=== PATIENT | female | born 1945 | race Caucasian/White ===

== ENCOUNTER → 2023-04-07 | Outpatient (CLI) | payer MEDICARE, OTHER, SELFPAY ==
--- NOTE | 2023-04-07 17:45 | CT_ITS ---
EXAM: CT HEAD WITHOUT INTRAVENOUS CONTRAST CLINICAL INDICATION: SUBARACHNOID HEMORRHAGE TECHNIQUE: Multiple axial images were obtained of the head without intravenous contrast. This CT exam was performed using one or more of the following dose reduction techniques: automated exposure control, adjustment of the mA and/or kV according to patient size, and/or use of iterative reconstruction technique. RADIATION DOSE: CTDIvol = 44.99 mGy, DLP = 745.49 mGy-cm. COMPARISON: No relevant prior studies available. FINDINGS: BRAIN AND EXTRA-AXIAL SPACES: Unremarkable with the exception of mild-moderate calcifications of the intracranial carotids and slight low-attenuation in the deep periventricular white matter. Minimal cerebral volume loss for age.. No intra- or extra-axial hemorrhage. No evidence of acute infarct. No intracranial mass or mass effect. There is preservation of the gonzalez/white matter interface. Posterior fossa structures are unremarkable. Ventricles are appropriate for age. No hydrocephalus. Basal cisterns are patent. BONES/JOINTS: Unremarkable. No discrete lytic or blastic abnormalities. SINUSES: Unremarkable as visualized. Clear. MASTOID AIR CELLS: Unremarkable. Clear. ORBITS: Visualized globes, extraocular muscles, optic nerves and retrobulbar fat appear unremarkable. CT/Brain/Head without Contrast IMPRESSION: No acute intracranial abnormality. Minimal chronic changes. Electronically Signed: Lucille Roberts MD at 4:02 EST ,
== END | disposition home or self-care (01) ==
LOC: CT 17:39
PROVIDERS: PCP Family Medicine
DX: G31.83 Neurocognitive disorder with Lewy bodies (principal); Z86.79 Personal history of other diseases of the circulatory system
CPT/HCPCS: 70450

== ENCOUNTER → 2023-07-01 | Outpatient (REF) | payer MEDICARE, OTHER, SELFPAY ==
[2023-07-01 09:50] LABS: AST(SGOT) 15 U/L (15-37); Alanine Aminotransfer ALT/SGPT 13 U/L (13-56); Anion Gap 5 (5-15); BUN 19 mg/dL (7-18); BUN/Creat Ratio 20.9 RATIO (10-20); Calcium,Total 9.4 mg/dL (8.5-10.1); Chloride 106 mmol/L (98-107); Cholesterol 167 mg/dL (200); Creatinine, Serum 0.91 mg/dL (0.55-1.02); EST Glomerular Filtration Rate 64 mL/min (>60); Est Glom Filt Rate - Afr Amer 77 mL/min (>60); Glucose 100 mg/dL (74-106); High Density Lipoprotein 61 mg/dL; Sodium Level 138 mmol/L (136-145); Triglycerides 71 mg/dL; Very Low Density Lipoprotein 14 mg/dL (5-40)
== END ==
PROVIDERS: PCP Family Medicine; Visit Provider Family Medicine
DX: I10 Essential (primary) hypertension (principal); E78.5 Hyperlipidemia, unspecified; Z79.01 Long term (current) use of anticoagulants
CPT/HCPCS: 36415; 80048; 80061; 84450; 84460

== ENCOUNTER 2024-06-25 20:54 | Emergency (ER) | payer MEDICARE, OTHER, SELFPAY ==
[2024-06-25 20:55] VITALS: BP 147/66; PULSE 73; RESP 16; TEMP 36.6; O2SAT 96; BMI 24.5
--- NOTE | 2024-06-25 21:49 | EDS_ITS ---
HPI History of Present Illness HPI Narrative: 78-year-old female history of Parkinson disease, anemia. Unwitnessed fall today at [facility]. Has a large forearm laceration/skin tear. Denies hitting her head. Denies any LOC. Denies any other complaints. She is right-hand dominant. Unsure of her tetanus is up-to-date. Chief Complaint: Laceration Informant: patient Occured/Mechanism Mechanism/Context: Yes injury and Yes blunt trauma Onset/Context/Timing Onset: Today and Hours Context: Sudden Onset Timing: Continuous Current Severity: Moderate Maximum Severity: Moderate Associated Symptoms Associated Symptoms: Negative for Parasthesia, Weakness or Loss of Funtion Narrative Narrative: 78-year-old female from [facility]. Unwitnessed fall. Large skin tear left forearm over the dorsum. Denies other complaints. No head injury. No LOC. She is on no blood thinners. Tetanus Immunization: Unknown Prior similar symptoms: No Recent Illness/Hospitalization: No [facility] Medical History Blindness left eye category 5, normal vision right eye Unsteadiness on feet Difficulty in walking Anemia Lung nodule Depression Wrist fracture, right Orthostatic hypotension Essential hypertension Subarachnoid hemorrhage following injury Hyperlipidemia Parkinson's disease Home Medications ?Medication ?Instructions ?Recorded ?Last Taken ?Type acetaminophen 650 mg 650 mg PO Q8H 03/28/23 Unkno wn History tablet,extended release aluminum-mag hydroxide-simethicone 1 tab PO ONCE 03/28 Unknown History 200 mg-200 mg-25 mg chewable tablet atorvastatin 10 mg tablet 10 mg PO QHS 03/28/23 Unknow n History bisacodyl 10 mg rectal suppository 10 mg ND DAILY PRN 03/28/23 Unknown History (Dulcolax (bisacodyl)) carbidopa 25 mg-levodopa 100 mg 1 tab PO .QID 03/28/23 Unknown History tablet docusate sodium 100 mg capsule 100 mg PO BID PRN 03/28 Unknown History escitalopram oxalate 10 mg tablet 10 mg PO DAILY 03/28 Unknown History ferrous sulfate 325 mg (65 mg 325 mg PO DAILY 03/28/23 Unknown History iron) tablet magnesium hydroxide 400 mg/5 mL 30 ml PO BID PRN 03/28 Unknown History oral suspension (Milk of Magnesia) midodrine 5 mg tablet 5 mg PO TID 03/28/23 Unknown History mineral oil 118 ml ND DAILY PRN 03/28/23 Unknown History polyethylene glycol 3350 17 17 g PO DAILY 03/28/23 Unk nown History gram/dose oral powder (Miralax) Allergy/AdvReac Type Severity Reaction Status Date / Time amoxicillin (From Trimox) Allergy Hives Verified 06/25/24 20:55 Family History Mother Hypertension Heart disease Diabetes Father Hypertension Emphysema lung Surgical History Hx laparoscopic cholecystectomy History of hysterectomy Social History Smoking Status: Never smoker alcohol intake: never substance use type: does not use caffeine: Yes Type: coffee Number of servings: 2 ROS ROS ED ROS Narrative Denies recent illness. Constitutional Constitutional ED: Denies fever(s) Eyes Eyes: Denies blurry vision ENT ENT ED: Denies ear pain Cardiovascular Cardiovascular: Denies chest pain or palpitations Respiratory/Chest Respiratory/Chest: Denies cough or dyspnea Gastrointestinal Gastrointestinal: Denies abdominal pain Genitourinary Genitourinary ED: Denies dysuria or hematuria Musculoskeletal Musculoskeletal: Denies back pain or myalgias Integumentary Denies abscess Neurologic Neurologic: Denies headache(s) Psychiatric Psychiatric: Denies anxiety Endocrine Endocrinology: Denies cold intolerance Hematologic/Lymphatic Hematologic/Lymphatic: Denies easy bleeding, easy bruising or lymphadenopathy Allergic/Immunologic Allergic/Immunologic ED: Denies tongue swelling or urticaria EXAM Physical Exam Narrative Exam Narrative: 78-year-old female sitting upright in bed. Family at bedside. She is no acute distress. Has a dressing on her left forearm. H EENT exam left eye pupils reactive light. Right eye she is blind in. No facial or scalp trauma. Nontender no hematoma. Neck nontender. Trachea midline. Back nontender. Lungs clear to auscultation. Heart regular rhythm rate about 70 no murmur. Chest wall and ribs nontender. Abdomen soft nontender. Pelvic girdle intact. Hips are nontender. There is no shortening or rotation. 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 There is a substantial skin tear/laceration over the illness the entire length of her wound left forearm over the dorsum along the midline. Involves the skin and subcu tissue. You can see the muscle. There is some oozing of blood. 1 small arterial bleeding. Hand appears to be neurovascularly intact. There is no bony deformity. Left elbow and shoulder nontender. Right upper extremity nontender. Lower extremities are nontender. No shortening or rotation. Normal dorsi plantarflexion. She can flex extend her hips and knees. Neurologically she is awake and alert. Answering questions following commands. GCS 15. Const Vital Signs: 06/25/24 20:55 Temperature 98 F Temperature Source Oral Pulse Rate 73 Respiratory Rate 16 Blood Pressure 147/66 H Blood Pressure Mean 93 Pulse Ox 96 Oxygen Delivery Method Room Air Positive well nourished and well developed; Negative for obese, cachectic or contractures General Appearance ED: well developed and NAD; Negative for cachectic, contractures, cyanotic or diaphoretic Nutritional Appearance: Negative for cachectic or obese HEENT Reports moist mucous membranes normocephalic and atraumatic; Negative for trauma or tenderness Eyes PERRL and EOMs intact bilaterally Neck full ROM and supple General: Negative for tenderness Lymph Lymphatic: Negative for other Chest Wall inspection of chest normal and palpation of chest normal Resp normal respiratory effort and clear to auscultation bilaterally Auscultation: Negative for rales, rhonchi, wheezes or diminished lung sounds Cardio regular rate, regular rhythm, S1 normal heart sound, S2 normal heart sound and no murmurs Rate: Negative for bradycardia or tachycardic Rhythm: Negative for abnormal rhythm GI non-tender, non-distended and no masses Auscultation: normoactive bowel sounds Palpation: soft; Negative for tender or guarding Back/Spine no CVA tenderness General Back: Negative for CVA tenderness Cervical Spine: Negative for cervical spine tenderness Thoracic Spine / Upper Back: Negative for thoracic spinal tenderness Lumbar Spine / Lower Back: Negative for lumbar spinal tenderness Extremity normal to inspection and full ROM Extremity Narrative: Except for the skin tear/laceration of the dorsum of the left forearm. Almost the entire length of the forearm from the elbow to the wrist over the dorsum. Exposed muscle. No no bony tenderness or deformity. General Extremety ED: Negative for edema General Extremity: Negative for edema Neuro oriented x3, CN's II-XII intact bilaterally, moves all extremities, no focal motor deficits and no sensory deficits noted Sensorium / Orientation: alert, oriented to person, oriented to place and oriented to time Motor Exam: strength 5/5 throughout Psych mental status grossly normal Mood & Affect: Negative for depressed, anxious or tearful Skin Skin Narrative: Large left forearm skin tear/laceration. General Skin Exam: Negative for petechiae Lesions: no lesions Rashes: no rashes Trauma: laceration MDM MDM MDM Narrative Medical decision making narrative: 78-year-old female large left forearm laceration/skin tear. Tetanus will be updated if we cannot find a recent tetanus. Will x-ray her left forearm to rule out a fracture no clinically I do not think she has a fracture. I have already spoke with the family this will be locally anesthetized cleaned irrigated and washed and then we will try to repair it if possible. History & Record Review Discussion w/independent historian: Patient Additional record(s) reviewed:: Prior inpatient record, Prior outpatient record, Prior ED visit and Prior labs Radiography Diagnostic Testing: Left forearm x-ray, 2 views, AP and lateral, interpreted by by myself and radiologist. Showed no acute fracture or dislocation. Osteopenia. Procedures Lacerations Large left dorsal forearm laceration approximately 12 inches repair.: Length: 12 in Depth: Sub Q Shape: Linear Prep: Shnaima-Clens Laceration repair: Irrigated, Lidocaine, Local, Skin sutures and Wound explored Number of Sutures/Kevyn: 16 Suture Information: Ethilon and - Comment: Large left forearm laceration palmar laceration part skin tear. Was about 12 inches in length. Involving the skin given subcu tissue and fat. Down to the muscle. Small arterial bleeding. Locally anesthetized with lidocaine. Cleaned with Juma-Clens. Washed and irrigated with saline. Explored. No foreign body. No joint involvement. Approximated and closed as best I could using 16 simple interrupted 3-0 Ethilon sutures. Proper hemostasis wound closure was obtained. Patient tolerated well. Family was present in the room during the procedure. Area will be cleaned. Antibiotic ointment. Dressed. Outpatient follow-up. Discharge Plan Triage Chief Complaint: Laceration ED Provider: Joel Muniz Dx/Rx/DC Orders Clinical Impression: Fall, Laceration of forearm, left, Skin tear, History of Parkinson disease Instructions: ED Laceration, All Closures Prescriptions: No Action acetaminophen 650 mg tablet extended release 650 mg PO Q8H alum-mag hydroxide-simeth 200-200-25 mg tablet,chewable 1 tab PO ONCE atorvastatin 10 mg tablet 10 mg PO QHS bisacodyl [Dulcolax (bisacodyl)] 10 mg suppository 10 mg ND DAILY PRN carbidopa-levodopa 25-100 mg tablet 1 tab PO .QID docusate sodium 100 mg capsule 100 mg PO BID PRN mineral oil Enema 118 ml ND DAILY PRN Rx Instructions: discard any unused portion escitalopram oxalate 10 mg tablet 10 mg PO DAILY ferrous sulfate 325 mg (65 mg iron) tablet 325 mg PO DAILY midodrine 5 mg tablet 5 mg PO TID Rx Instructions: do not give last dose of day after 6PM or within 4 hrs of bedtime magnesium hydroxide [Milk of Magnesia] 400 mg/5 mL suspension 30 ml PO BID PRN polyethylene glycol 3350 [Miralax] 17 gram/dose powder 17 g PO DAILY Primary Care Provider: Yahaira Winn Referrals: Stan Green MD [Med Staff - Active Staff] - Jose Matthews MD [Med Staff - Active Staff] - As soon as possible Activity Restrictions/Additional Instructions: Ice and elevate the arm to decrease swelling and pain. Elevate is much as possible. If our dressing stays dry and clean you can leave it on for up to 3 days. Then it needs to be taken off gently. Clean daily with soap and water. Apply antibiotic ointment. And redress. Call and follow-up with the plastic surgeon for further evaluation and wound care. Any signs of infection such as redness, pus, fever or streaks return to the emergency department. Tylenol for pain. Print Language: Syriac Disposition Disposition: Home, Self Care
--- NOTE | 2024-06-25 22:00 | RAD_ITS ---
PROCEDURE: FOREARM 2 VIEWS 06/25/2024 REASON FOR EXAM: FALL TECHNIQUE: 2 view(s) of the left forearm COMPARISON: None FINDINGS: No displaced fracture or traumatic malalignment. Joint spaces are predominantly maintained. Mild decrease in bone mineral density. Bandage material limits evaluation of the soft tissues.. RAD/Forearm 2 Views IMPRESSION: No displaced fracture of the left forearm. Mild osteopenia slightly limits thi s evaluation. Reading Location: [facility]
--- NOTE | 2024-06-25 22:02 | ED.RN ---
[facility] CALLED TO CONFIRM TETANUS SHOT HISTORY. THEY WERE UNABLE TO CONFIRM WITH THEIR RECORDS. PROVIDER NOTIFIED.
[2024-06-25] MEDS: Lidocaine 1% (20 ml mdv) 20 ML Vial 10 ML INFILT (22:07)
[2024-06-25] MEDS: Diphth,Pertuss(Acell),Tet Vac 0.5 ML Vial IM (22:08)
[2024-06-25 23:10] VITALS: BP 147/61; PULSE 70; RESP 16; O2SAT 100
[2024-06-26 00:49] VITALS: BP 146/80; PULSE 89; RESP 16; TEMP 36.6; O2SAT 99
--- NOTE | 2024-06-26 00:51 | ED.RN ---
REPORT CALLED TO [facility]ORM. NO FURTHER QUESTIONS BY THE RECEIVING NURSE AT THIS TIME.
== END 2024-06-26 00:52 | disposition home or self-care (01) ==
PROVIDERS: Emergency Provider Emergency Medicine; PCP Family Medicine; Visit Provider Emergency Medicine
DX: S51.812A Laceration without foreign body of left forearm, initial encounter (principal); G20.C Parkinsonism, unspecified; W19.XXXA Unspecified fall, initial encounter
CPT/HCPCS: 12004; 73090; 90715; 99285

== ENCOUNTER → 2024-06-27 | Outpatient (REF) | payer MEDICARE, OTHER, SELFPAY ==
[2024-06-27 06:45] LABS: Red Blood Cells-Urine 0 SEEN /hpf (0-5); White Blood Cells 0 SEEN /hpf (0-5)
[2024-06-27 06:56] LABS: Hematocrit 28.2 % (37-47); Hemoglobin 9.1 g/dL (12.0-15.0); Mean Corp Hgb Conc 32.3 g/dL (32-36); Mean Corpuscular Hgb 29.7 pg (27.0-32.0); Mean Corpuscular Volume 92.2 fL (81-99); Mean Platelet Vol. 10.2 fl (6.2-12.0); Platelet Count 237 K/mm3 (150-450); RBC Distribution Width SD 46.9 fl (35.1-43.9); Red Blood Count 3.06 M/mm3 (4.2-5.4); White Blood Count 6.9 K/mm3 (4.4-11.0)
[2024-06-27 07:10] LABS: Color, Urine Yellow (Yellow); Glucose, Dipstick Normal (Normal); Ketone-Dipstick 5 mg/dl (Negative); Leukocyte Esterase-Dipstick Negative /ul (Negative); Nitrite-Dipstick Negative (Negative); Occult Blood-Urine 10 /ul (Negative); Protein-Dipstick 30 mg/dl (Negative); Urine Bilirubin Dipstick Negative (Negative); Urine Clarity Clear (Clear); Urine Urobilinogen Normal (Normal)
[2024-06-27 07:33] LABS: Bacteria 1+ /hpf (None Seen); Fine Granular Cast- Urine 0-5 SEEN /lpf (0-5); Mucous, Urine 1+ /hpf (<or=2+); Squamous Epithelial Cells - UA 0-5 SEEN /hpf (5-10)
[2024-06-27 07:57] LABS: ALB/GLOB Ratio 1.3 RATIO (0.9-2.4); AST(SGOT) 17 U/L (<=31); Alanine Aminotransfer ALT/SGPT < 5 U/L (<=34); Albumin, Serum 3.7 g/dL (3.4-4.8); Alkaline Phosphatase 90 U/L (35-104); Anion Gap 10 (5-15); BUN 27 mg/dL (4-19); BUN/Creat Ratio 28.9 RATIO (10-20); Calcium,Total 9.1 mg/dL (7.6-11.0); Carbon Dioxide 25.8 mmol/L (21.0-32.0); Chloride 106 mmol/L (98-108); Creatinine, Serum 0.93 mg/dL (0.70-1.20); EST Glomerular Filtration Rate 63 (>60); Globulin 2.9 g/dL (2.2-4.2); Glucose 89 mg/dL (70-99); Potassium 4.3 mmol/L (3.3-5.1); Protein, Total 6.6 g/dL (5.9-8.4); Sodium Level 142 mmol/L (133-145); Total Bilirubin 0.41 mg/dL (0.00-1.30)
== END ==
PROVIDERS: PCP Family Medicine; Visit Provider Family Medicine
DX: R41.82 Altered mental status, unspecified (principal); D64.9 Anemia, unspecified; I10 Essential (primary) hypertension; E78.5 Hyperlipidemia, unspecified; I95.1 Orthostatic hypotension
CPT/HCPCS: 36415; 80053; 81001; 85027; 87086; 87088

== ENCOUNTER → 2024-06-28 | Outpatient (REF) | payer MEDICARE, OTHER, SELFPAY ==
[2024-06-28 07:42] LABS: Hematocrit 27.6 % (37-47); Mean Corp Hgb Conc 32.6 g/dL (32-36); Platelet Count 247 K/mm3 (150-450); RBC Distribution Width CV 13.7 % (11.6-14.6); RBC Distribution Width SD 46.7 fl (35.1-43.9); White Blood Count 6.3 K/mm3 (4.4-11.0)
== END ==
PROVIDERS: PCP Family Medicine; Visit Provider Family Medicine
DX: D64.9 Anemia, unspecified (principal)
CPT/HCPCS: 36415; 82274; 85027

== ENCOUNTER → 2024-06-29 05:00 | Outpatient (REF) | payer MEDICARE, OTHER, SELFPAY ==
[2024-06-29 09:01] LABS: Hematocrit 30.7 % (37-47); Hemoglobin 9.8 g/dL (12.0-15.0); Mean Corp Hgb Conc 31.9 g/dL (32-36); Mean Corpuscular Hgb 29.5 pg (27.0-32.0); Mean Corpuscular Volume 92.5 fL (81-99); Mean Platelet Vol. 10.2 fl (6.2-12.0); Platelet Count 286 K/mm3 (150-450); RBC Distribution Width CV 13.7 % (11.6-14.6); RBC Distribution Width SD 46.4 fl (35.1-43.9); Red Blood Count 3.32 M/mm3 (4.2-5.4)
== END ==
PROVIDERS: PCP Family Medicine; Visit Provider Family Medicine
DX: D64.9 Anemia, unspecified (principal)
CPT/HCPCS: 36415; 85027

== ENCOUNTER → 2024-07-03 | Outpatient (REF) | payer MEDICARE, OTHER, SELFPAY ==
[2024-07-03 08:58] LABS: Hematocrit 30.5 % (37-47); Hemoglobin 9.8 g/dL (12.0-15.0); Mean Corp Hgb Conc 32.1 g/dL (32-36); Mean Corpuscular Hgb 30.1 pg (27.0-32.0); Mean Corpuscular Volume 93.6 fL (81-99); Mean Platelet Vol. 10.4 fl (6.2-12.0); Platelet Count 302 K/mm3 (150-450); RBC Distribution Width SD 47.7 fl (35.1-43.9); Red Blood Count 3.26 M/mm3 (4.2-5.4); White Blood Count 8.4 K/mm3 (4.4-11.0)
== END ==
PROVIDERS: PCP Family Medicine; Referring Provider Family Medicine; Visit Provider Family Medicine
DX: D64.9 Anemia, unspecified (principal)
CPT/HCPCS: 36415; 85027

== ENCOUNTER → 2024-07-27 | Outpatient (REF) | payer MEDICARE, OTHER, SELFPAY ==
--- OUTSIDE RECORDS SUMMARY | 2024-07-27 04:35 | XMS RPT_ITS | CCD ---
Author Organization [facility] Care Team Providers Care Equity Manager Name Role Phone Chico Collier MD Unavailable [phone] Chico Collier MD Unavailable [facility] Unavailable Phan SALAZAR, Dr. Alberts ([place]) A Unavail able [facility] Unavailable Physical Therapy, David Bennett Unavailable [facility], . [facility] office Unavailable ([place]), [facility] Unavailable [facility] Unavailable Janeth Chávez RN Unavailable Unavailable Zack HEEL SHAPER, Serena Unavailable Pratik TAVAREZ, Erik Vazquez Unavailable [phone] Malinda Christie Unavailable Unavailable Pratik HUYNH, Ana Cristina L Unavailable Unavail able Tree SOTON, Tavia Unavailable Unavailable Sherman HUYNH, Frida Hope Unavailable Unavaila grecia Meier LPN, Obi Unavailable Unavailable Funmi Chisholm RN Unavailable [phone] Eulalia HEEL SHAPER, Sarah K Unavailable Unaronaldoi Tonie Ramirez Unavailable Unavailable Yonas Floreza L Unavailable Luis SOTON, Alea Peres Unavailable Unavailab juanis Vess HEEL SHAPER, Kevin Lopez Unavailable Unavailable Wetray HEEL SHAPER, Barbara Unavailable Unavailabl e Unavailable Unavailable NANDO SALAZAR, DR CHICO Hope Primary Care Physician Janelle Kenney Unavailable Unavailable CHICO COLLIER Referring Unavailable CHICO COLLIER Consulting Unavailable PALOCKOANA M DO Admitting Unavailable PALOMIGUELOANA M DO Attending Unavailable ANA M BLACKBURN DO Primary Care Unavailable PROVIDER, UNKNOWN Consulting Unavailable PROVIDER, UNKNOWN Consulting Unavailable PROVIDER, UNKNOWN Consulting Unavailable VACCARIELLO, CHICO Attending Unavailable VACCARIELLO, CHICO Consulting Unavailable VACCARIELLO, CHICO Primary Care Unavailable VACCARIELLO, CHICO Admitting Unavailable PROVIDER, UNKNOWN Consulting Unavailable PROVIDER, UNKNOWN Consulting Unavailable PROVIDER, UNKNOWN Consulting Unavailable VACCARIELLO, CHICO Consulting Unavailable PRATIK, LUKE E Admitting Unavailable PRATIK, LUKE E Attending Unavailable PRATIK, LUKE E Primary Care Unavailable PROVIDER, UNKNOWN Consulting Unavailable PROVIDER, UNKNOWN Consulting Unavailable PROVIDER, UNKNOWN Consulting Unavailable GREY CONNOR C Admitting Unavailable VACCARIELLO, CHICO Referring Unavailable VACCARIELLO, CHICO Consulting Unavailable CONNOR GREY C Attending Unavailable NIKOLAS GREY C Primary Care Unavailable PROVIDER, UNKNOWN Consulting Unavailable PROVIDER, UNKNOWN Consulting Unavailable PROVIDER, UNKNOWN Consulting Unavailable VACCARIELLO, CHICO Referring Unavailable VACCARIELLO, CHICO Consulting Unavailable MATILDE VERONICA MD Admitting Unavailable MATILDE VERONICA MD Attending Unavailable MATILDE VERONICA MD Primary Care Unavailable PROVIDER, UNKNOWN Consulting Unavailable PROVIDER, UNKNOWN Consulting Unavailable PROVIDER, UNKNOWN Consulting Unavailable STAN GARCIA DO Admitting Unavailable STAN GARCIA DO Attending Unavailable BHASKAR PhD, AASHISH Hope Consulting Unavailable NANDO SALAZAR, DR CHICO Hope Primary Care IVAN Pimentel DO Consulting Unavailable ASHLEY CLIENT TECHNICAL SPECIALIST-PLATING INSPECTOR, HEENA Navarrete Consulting Unavaila grecia COLLIER MD, DR CHICO Hope Primary Care STAN Raymond DO Admitting Unavailable STAN GARCIA DO Attending Unavailable NANDO SALAZAR, DR CHICO Hope Primary Care Troy VALDIVIA MD, DR AMBRIZ Admitting Unavailable JACKELYN SALAZAR, KAYLI Consulting Unavailable ART SALAZAR FACP, ADELITA Trujillo Attending Unavail able Jesus Manuel YANCEY, Stefanie Unavailable Unavailable Dr. Joel Muniz MD Emergency Provider Pa SALAZAR, Dr. Yahaira Isaac Primary Care Provider [phone] Dr. Joel Muniz MD Attending Provider [phone] Dr. Rahul Shetty MD Attending Provider Unavail able Dr. Yahaira Winn MD Referring Provider Dr. Jose Matthews MD Attending Provider Dr. Rahul Shetty MD Referring Provider Unavail able Barbara Montes Attending Provider Jose Matthews Attending Unavailable Jolliff, Yahaira S Referring Unavailable Jolliff, Yahaira S Primary Care Unavailable Jose Matthews Attending Unavailable Jolliff, Yahaira S Referring Unavailable Jolliff, Yahaira S Primary Care Unavailable Jose Matthews Attending Unavailable Jolliff, Yahaira S Referring Unavailable Jolliff, Yahaira S Primary Care Unavailable Vaccariello, Chico Attending Unavailable Vaccariello, Chico Referring Unavailable Green, Stan Primary Care Unavailable Vaccariello, Chico Attending Unavailable Vaccariello, Chico Referring Unavailable Green, Stan Primary Care Unavailable Rahul Maldonado Attending Unavailable Jolliff, Yahaira S Primary Care Unavailable aRhul Maldonado Referring Unavailable Rahul Maldonado Attending Unavailable Jolliff, Yahaira S Primary Care Unavailable Rahul Maldonado Attending Unavailable Jolliff, Yahaira S Primary Care Unavailable Joel Muniz Attending Unavailable Jolliff, Yahaira S Primary Care Unavailable Rahul Maldonado Attending Unavailable Jolliff, Yahaira S Primary Care Unavailable Barbara Ramirez Attending Unavailable Jolliff, Yahaira S Referring Unavailable Jolliff, Yahaira S Primary Care Unavailable Allergies Allergy Classification Reported Allergen(s) Allergy Type Date of Onset Reaction(s) Facility (20 sources) Penicillin V Drug Allergy [facility] (20 sources) predniSONE Drug Allergy [facility]. (10 sources) Amoxicillin; Translations: [amoxicillin] [facility] (1 source) predniSONE Drug Allergy [facility] (1 source) Amoxicillin Drug Allergy 5 [facility] Medications Current Medications Medication Drug Class(es) Dates Sig (Normalized) Sig (Original) 8 hr acetaminophen 650 mg extended release oral tablet (9 sources) Start: 03-28-2023 take 1 tablet by mouth every eight hours Acetaminophen 650 mg tablet extended release Active 650 mg PO Q8H March 28, 2023 1:00am Start: 03-02-2023 take 1 capsule by [facility] every four hours as needed for pain Tylenol 325 mg oral capsule Dose : 650 mg =, Oral, q4h, PRN Muscle pain, 0 Refill(s) Start Date: 03/02/23 Status: Ordered aluminum hydroxide 200 mg / magnesium hydroxide 200 mg / simethicone 25 mg chewable tablet (15 sources) Start: 07-03-2024 Alum-Mag Whitlash xide-Simeth (Gelusil Antacid And Anti-Gas) 200-200-25 mg tablet,chewable Active 1 {tbl} PO EVERY 6 HOURS as needed July 03, 2024 12:00am Start: 03-28-2023 End: 07-03-2024 Alum-Mag Hydroxide-Simeth 20 0-200-25 mg tablet,chewable Discontinued 1 {tbl} PO ONCE March 28, 2023 1:00am July 03, 2024 7:52am Start: 03-28-2023 take 1 tablet by mouth once Al um-Mag Hydroxide-Simeth Active 1 TABLET PO ONCE March 28, 2023 12:00am Start: 03-02-2023 Maalox Oral, q 6h, PRN Indigestion, 0 Refill(s) Start Date: 03/02/23 Status: Ordered amLODIPine 5 mg oral tablet (7 sources) Dihydropyridine Calcium Channel [place] Start: 07-03-2024 take 1 tablet by mouth once daily Amlodipine 5 mg tablet Active 5 mg PO daily July 03, 2024 12:00am Start: 02-15-2023 amLODIPine 5 m g oral tablet Dose : 5 mg = 1 tab(s), Oral, qDay, 0 Refill(s) Start Date: 02/15/23 Status: Ordered atenolol 25 mg oral tablet (20 sources) beta-Adrenergic [place] Start: 01-14-2023 atorvastatin 10 mg oral tablet (20 sources) HMG-CoA Reductase Inhibitor Start: 03-28-2023 take 1 tablet by mouth at bedtime Atorvastatin 10 mg tablet Active 10 mg PO AT BEDTIME March 28, 2023 1:00am Start: 03-02-2023 atorvastatin 1 0 mg oral tablet Dose : 10 mg = 1 tab(s), Oral, qDay, # 30 tab(s), 0 Refill(s), Pharmacy: [id number], 160, cm, 02/15/23 17:41:00 EST, Height, kg, 02/28/23 5:44:00 EST, Dosing Weight Start Date: 03/02/23 Status: Ordered Start: 02-09-2023 atorvastatin 1 0 mg oral tablet Dose : 10 mg = 1 tab(s), Oral, qDay, # 30 tab(s), 0 Refill(s) Start Date: 02/09/23 Status: Ordered Start: 12-27-2022 bisacodyl 10 mg rectal suppository (8 sources) Stimulant Laxative Start: 03-28-2023 Bisacodyl ( Dulcolax (Bisacodyl)) 10 mg suppository Active 10 mg RC DAILY as needed March 28, 2023 1:00am carbidopa 25 mg / levodopa 100 mg oral tablet (20 sources) Aromatic Amino Acid Decarboxylation Inhibitor, Aromatic Amino Acid Start: 03-28-2023 Carbidopa-Levodopa 25-100 mg tablet Active 1 {tbl} PO .QID March 28, 2023 1:00am Start: 03-28-2023 take 1 tablet by doris th four times daily Carbidopa-Levodopa Active 1 TABLET PO .QID March 28, 2023 12:00am Start: 03-02-2023 take 1 tablet by doris th four times daily carbidopa-levodopa 25 mg-100 mg oral tablet Dose = 1 tab(s), Oral, QID, # 120 tab(s), 0 Refill(s), Pharmacy: [id number], 160, cm, 02/15/23 17:41:00 EST, Height, kg, 02/28/23 5:44:00 EST, Dosing Weight Start Date: 03/02/23 Status: Ordered Start: 02-15-2023 take 1 tablet by doris th four times daily carbidopa-levodopa 25 mg-100 mg oral tablet Dose = 1 tab(s), Oral, QID, 0 Refill(s) Start Date: 02/15/23 Status: Ordered Start: 01-14-2023 Start: 03-24-2017 End: 03-24-2017 Start: 03-24-2017 End: 03-25-2017 chondroitin sulfates 400 mg / glucosamine hydrochloride 500 mg oral tablet (1 source) Start: 02-09-2023 take 1 tablet by mouth once daily Brent Move Free 500 mg-400 mg oral tablet 1 tab, Oral, qDay, 0 Refill(s) Start Date: 02/09/23 Status: Ordered docusate sodium 100 mg oral capsule (9 sources) Start: 03-28-2023 take 1 capsule by mouth twice daily as needed Docusate Sodium 100 mg capsule Active 100 mg PO TWICE A DAY as needed March 28, 2023 1:00am Start: 03-02-2023 Colace 100 mg oral capsule Dose : 100 mg = 1 cap(s), Oral, BID, PRN Constipation, 0 Refill(s) Start Date: 03/02/23 Status: Ordered escitalopram 10 mg oral tablet (20 sources) Serotonin Reuptake Inhibitor Start: 01-14-2023 take 1 tablet by mouth once daily Escitalopram Oxalate 10 mg tablet Active 10 mg PO DAILY March 28, 2023 1:00am ferrous sulfate 325 mg oral tablet (10 sources) Start: 03-28-2023 take 1 tablet by mouth once daily Ferrous Sulfate 325 mg (65 mg iron) tablet Active 325 mg PO DAILY March 28, 2023 1:00am Start: 03-02-2023 ferrous sulfat e 325 mg (65 mg elemental iron) oral tablet Dose : 325 mg = 1 tab(s), Oral, Every other day, 0 Refill(s) Start Date: 03/02/23 Status: Ordered Start: 02-09-2023 take 65 mg by mouth once daily ferrous sulfate Oral, qDay, takes 65 mg, 0 Refill(s) Start Date: 02/09/23 Status: Ordered hypromellose 17 mg/ml ophthalmic solution (6 sources) Start: 07-03-2024 Artifi.Tears(Hypromellose)(P f) 1.7 % drops with applicator Active 1 NMA OPHTHALMIC THREE TIMES A DAY July 03, 2024 12:00am Magnesium Hydroxide (8 sources) Start: 03-28-2023 take 1 mL by mouth twice daily as needed Magnesium Hydroxide (Milk Of Magnesia) 400 mg/5 mL suspension Active 30 mL PO TWICE A DAY as needed March 28, 2023 1:00am Start: 03-28-2023 take 1 mL by mouth twice daily Magnesium Hydroxide (Milk Of Magnesia) 400 mg/5 mL suspension Active 30 ML PO TWICE A DAY March 28, 2023 12:00am midodrine hydrochloride 5 mg oral tablet (10 sources) alpha-Adrenergic Agonist Start: 03-28-2023 take 1 tablet by mouth once daily at bedtime Midodrine 5 mg tablet Active 5 mg PO THREE TIMES A DAY March 28, 2023 1:00am do not give last dose of day after 6PM or within 4 hrs of bedtime Start: 03-02-2023 midodrine 5 mg oral tablet Dose : 5 mg = 1 tab(s), Oral, TID, # 90 tab(s), 0 Refill(s), Pharmacy: [facility] 1724, 160, cm, 02/15/23 17:41:00 EST, Height, kg, 02/28/23 5:44:00 EST, Dosing Weight Start Date: 03/02/23 Status: Ordered Start: 02-15-2023 midodrine 5 mg oral tablet Dose : 5 mg = 1 tab(s), Oral, TID, 0 Refill(s) Start Date: 02/15/23 Status: Ordered Milk of Magnesia (1 source) Start: 03-02-2023 take 1 dose by mouth once daily as needed for constipation Milk of Magnesia Dose = 30 mL, Oral, Daily, PRN Constipation, 0 Refill(s) Start Date: 03/02/23 Status: Ordered ondansetron 4 mg oral tablet (6 sources) Serotonin-3 Receptor Antagonist Start: 07-03-2024 take 1 tablet by mouth every six hours as needed Ondansetron Hcl 4 mg tablet Active 4 mg PO EVERY 6 HOURS as needed July 03, 2024 12:00am polyethylene glycol 3350 91400 mg powder for oral solution (9 sources) Osmotic Laxative Start: 03-28-2023 Polyethylene Glycol 3350 (Miralax) 17 gram/dose powder Active 17 g PO DAILY March 28, 2023 1:00am Start: 03-02-2023 Miralax Powder Packet Oral, qDay, PRN Constipation, 0 Refill(s) Start Date: 03/02/23 Status: Ordered Completed/Discontinued Medications Medication Drug Class(es) Dates Sig (Normalized) Sig (Original) meloxicam 7.5 mg oral tablet (20 sources) Nonsteroidal Anti-inflammatory Drug Start: 06-06-2015 End: 12-22-2015 mineral oil 1000 mg/ml enema (8 sources) Start: 03-28-2023 End: 07-03-2024 Mineral Oil enema Discontinued 118 mL RC DAILY as needed March 28, 2023 1:00am July 03, 2024 7:52am discard any unused portion Start: 03-28-2023 Mineral Oil Ac tive 118 ML RC DAILY March 28, 2023 12:00am discard any unused portion Problems Active Problems Problem Classification Problem Date Documented Da te Episodic/Chronic Abdominal pain (20 sources) Left lower quadrant pain; Translations: [Left lower quadrant pain] 06-20-2014 Episodic Acute cerebrovascular disease (20 sources) Subarachnoid hemorrhage; Translations: [Nontraumatic subarachnoid hemorrhage, unspecified] Onset: 02-08-2023 Chronic Adjustment disorders (20 sources) Grief finding; Translations: [Adjustment disorder with depressed mood] 01-06-2022 Chronic Administrative/social admission (20 sources) Repeated prescription; Translations: [Encounter for issue of repeat prescription] 11-03-2015 Episodic Allergic reactions (20 sources) Allergy to penicillin; Translations: [Allergy status to penicillin] 01-14-2023 Episodic Blindness and vision defects (8 sources) Blind left eye, normal vision right eye; Translations: [Blindness left eye category 5, normal vision right eye] 03-28-2023 Chronic Cataract (20 sources) Cataract of left eye; Translations: [Unspecified cataract] 01-26-2023 Chronic Conditions associated with dizziness or vertigo (20 sources) Dizzy spells; Translations: [Dizziness and giddiness] Onset: 05-19-2022 05-06-2022 Episodic Deficiency and other anemia (15 sources) Anemia; Translations: [Anemia, unspecified] Episodic Deficiency and other anemia (1 source) Anemia, unspecified; Translations: [Anemia, unspecified] Onset: 07-20-2024 Episodic Delirium, dementia, and amnestic and other cognitive disorders (20 sources) 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 I would recommend we trial tailoring her midodrine to her blood pressure responses if this is not adequate and she remains hypertensive consideration may be given to discontinuing the midodrine and limiting her activities to those only available for someone who can be in the seated position. Alternatively the neurology group may decide that we can tolerate a higher systolic blood pressure so that she can participate in upright activities. I discussed this in detail as this is a difficult situation with the daughter. Fracture of upper limb (20 sources) Closed fracture of metacarpal bone; Translations: [Unspecified fracture of unspecified metacarpal bone, initial encounter for closed fracture] Onset: 01-26-2023 01-27-2023 Episodic Genitourinary symptoms and ill-defined conditions (20 sources) Blood in urine; Translations: [Hematuria, unspecified] 08-26-2010 Episodic Immunizations and screening for infectious disease (20 sources) Need for prophylactic vaccination and inoculation against influenza 11-22-2013 Episodic Intracranial injury (2 sources) Intracranial injury with loss of consciousness; Translations: [Traumatic subarachnoid hemorrhage with loss of consciousness status unknown, initial encounter] Episodic Malaise and fatigue (20 sources) Fatigue; Translations: [Other fatigue] 01-26-2023 Episodic Mood disorders (20 sources) Secondary dysthymia; 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 disorder] 01-26-2023 Chronic Nutritional deficiencies (1 source) Iron deficiency; Translations: [Iron deficiency] Episodic Occlusion or stenosis of precerebral arteries (1 source) Occlusion and stenosis of bilateral carotid arteries; Translations: [Occlusion and stenosis of bilateral carotid arteries] Onset: 05-19-2022 Chronic Open wounds of extremities (19 sources) Laceration of left forearm; Translations: [Laceration without foreign body of left forearm, initial encounter] Onset: 07-03-2024 06-26-2024 Episodic Open wounds of head; neck; and trunk (20 sources) Facial laceration ; Translations: [Laceration without foreign body of other part of head, initial encounter] 04-30-2022 Episodic Osteoarthritis (20 sources) Osteoarthritis of knee; Translations: [Unilateral primary osteoarthritis, unspecified knee] 01-26-2023 Chronic Other aftercare (20 sources) Removal of sutures done; Translations: [Encounter for removal of sutures] 08-06-2020 Episodic Other aftercare (20 sources) Post-discharge follow-up; Translations: [Encounter for follow-up examination after completed treatment for conditions other than malignant neoplasm] 04-30-2022 Episodic Other aftercare (20 sources) High risk drug monitoring status; Translations: [Other termite control servicer (current) drug therapy] 11-14-2013 Episodic Other aftercare (1 source) Long-term current use of drug therapy; Translations: [Other intermediate (current) drug therapy] Episodic Other and unspecified benign neoplasm (20 sources) Melanocytic nevus; Translations: [Melanocytic nevi, unspecified] 08-06-2020 Episodic Other circulatory disease (13 sources) Orthostatic hypotension; Translations: [Orthostatic hypotension] Onset: 02-10-2023 Episodic Comment on above: The patient is a dif ficult situation and that she has orthostatic hypotension in the face of profound systolic hypertension at rest. The patient is currently on midodrine 5 mg 3 times daily and no antihypertensive. It appears this is primarily thought to be related to her neurologic condition with her parkinsonism is creating the orthostatic hypotension. The neurologist felt that midodrine once a day was not adequate treatment and had upped it back to 3 times a day. I feel that we should tailor this based on her blood pressure given the hypertensive response that is possible with midodrine especially with the patient active. Other circulatory disease (1 source) Orthostatic hypotension; Translations: [Orthostatic hypotension] Onset: 07-20-2024 Episodic Other circulatory disease (1 source) Hypotension, unspecified; Translations: [Hypotension, unspecified] Onset: 07-20-2024 Episodic Other connective tissue disease (20 sources) Recurrent falls ; Translations: [Repeated falls] 01-26-2023 Episodic Other gastrointestinal disorders (12 sources) Occult blood in stools; Translations: [Other fecal abnormalities] 07-03-2024 Episodic Other gastrointestinal disorders (1 source) Other fecal abnormalities; Translations: [Other fecal abnormalities] Onset: 07-03-2024 Episodic Other injuries and conditions due to external causes (20 sources) Injury of right hand; Translations: [Unspecified injury of right wrist, hand and finger(s), initial encounter] 01-26-2023 Episodic Other injuries and conditions due to external causes (3 sources) Unspecified injury of right wrist, hand and finger(s), initial encounter; Translations: [Unspecified injury of right wrist, hand and finger(s), initial encounter] Onset: 01-26-2023 Episodic Other lower respiratory disease (3 sources) Solitary nodule of lung; Translations: [Solitary pulmonary nodule] Onset: 02-12-2023 Episodic Other lower respiratory disease (9 sources) Nodule of lung; Translations: [Solitary pulmonary nodule] 02-16-2023 Episodic Comment on above: 3mm right upper lobe Other nervous system disorders (8 sources) Difficulty walking; Translations: [Difficulty in walking, not elsewhere classified] 03-28-2023 Chronic Other nervous system disorders (1 source) Abnormal gait; Translations: [Unspecified abnormalities of gait and mobility] Episodic Other nervous system disorders (8 sources) Unsteady when standing; Translations: [Unsteadiness on feet] 03-28-2023 Episodic Other nervous system disorders (7 sources) H/O: brain disorder; Translations: [Personal history of other diseases of the nervous system and sense organs] 06-26-2024 Episodic Other non-epithelial cancer of skin (20 sources) Squamous cell carcinoma; Translations: [Squamous cell carcinoma of skin, site unspecified] 01-26-2023 Episodic Other non-traumatic joint disorders (20 sources) Hip pain; Translations: [Pain in right hip] 01-26-2023 Episodic Other nutritional; endocrine; and metabolic disorders (20 sources) Overweight in adulthood with body mass index of 25 or more but less than 30; Translations: [Body mass index (BMI) 25.0-25.9, adult] 01-26-2023 Episodic Other nutritional; endocrine; and metabolic disorders (20 sources) Unintentional weight loss; Translations: [Abnormal weight loss] 03-25-2017 Episodic Other nutritional; endocrine; and metabolic disorders (10 sources) Body mass index 25-29 - overweight; Translations: [Body mass index (BMI) 25.0-25.9, adult] 03-09-2023 Episodic Other skin disorders (20 sources) Seborrheic keratosis; Translations: [Other seborrheic keratosis] 01-26-2023 Episodic Other skin disorders (20 sources) Lesion of skin of face; Translations: [Disorder of the skin and subcutaneous tissue, unspecified] 07-08-2021 Episodic Residual codes; unclassified (20 sources) Pneumococcal vaccination declined; Translations: [Immunization not carried out because of patient refusal] 06-24-2017 Episodic Residual codes; unclassified (20 sources) Body mass index 20-24 - normal; Translations: [Body mass index (BMI) 20.0-20.9, adult] 08-05-2020 Episodic Residual codes; unclassified (20 sources) Colon cancer screening declined; Translations: [Procedure and treatment not carried out because of patient's decision for unspecified reasons] 01-26-2023 Episodic Residual codes; unclassified (20 sources) Colonoscopy refused; Translations: [Procedure and treatment not carried out because of patient's decision for unspecified reasons] 12-23-2017 Episodic Residual codes; unclassified (20 sources) History of vaccination; Translations: [Personal history of other drug therapy] 01-26-2023 Episodic Residual codes; unclassified (20 sources) Diagnostic procedure declined; Translations: [Procedure and treatment not carried out because of patient's decision for unspecified reasons] 10-01-2019 Episodic Residual codes; unclassified (20 sources) Influenza vaccination declined; Translations: [Immunization not carried out because of patient refusal] 06-24-2017 Episodic Residual codes; unclassified (20 sources) Menopause present; Translations: [Asymptomatic menopausal state] 01-12-2023 Episodic Residual codes; unclassified (20 sources) Non-smoker; Translations: [Other specified health status] 01-26-2023 Episodic Residual codes; unclassified (20 sources) Passive smoker; Translations: [Contact with and (suspected) exposure to environmental tobacco smoke (acute) (chronic)] 01-26-2023 Episodic Residual codes; unclassified (1 source) Localized edema; Translations: [Localized edema] Episodic Residual codes; unclassified (20 sources) Procedure and treatment not carried out because of patient's decision for unspecified reasons; Translations: [Surgical or other procedure not carried out because of patient's decision] 10-01-2019 Episodic Residual codes; unclassified (1 source) Disorientation, unspecified; Translations: [Disorientation, unspecified] Onset: 07-20-2024 Episodic Sprains and strains (20 sources) Muscle strain; Translations: [Strain of unspecified muscle(s) and tendon(s) at lower leg level, right leg, initial encounter] 05-28-2015 Episodic Superficial injury; contusion (20 sources) Abrasion of left forearm; Translations: [Abrasion of left forearm, subsequent encounter] 01-06-2022 Episodic Unclassified (20 sources) Symptomatic parkinsonism; Translations: [Paralysis agitans] 01-26-2023 Chronic Unclassified (12 sources) Parkinson's disease; Translations: [Parkinson's disease without dyskinesia, without mention of fluctuations] Onset: 02-10-2023 Chronic Unclassified (20 sources) 01-12-2023 Unclassified (20 sources) 01-12-2023 Unclassified (20 sources) 01-12-2023 Unclassified (1 source) Traumatic subarachnoid hemorrhage with loss of consciousness status unknown, subsequent encounter; Translations: [Traumatic subarachnoid hemorrhage with loss of consciousness status unknown, subsequent encounter] Onset: 02-15-2023 Viral infection (20 sources) Mass of skin; Translations: [Viral wart, unspecified] 07-28-2020 Episodic Past or Other Problems Problem Classification Problem Date Documented Date Episodic/Chronic Other connective tissue disease (1 source) Repeated falls; Translations: [Repeated falls] Onset: 05-19-2022 Episodic Other screening for suspected conditions (not mental disorders or infectious disease) (20 sources) Screening status; Translations: [Encounter for screening for malignant neoplasm of colon] Onset: 05-19-2022 12-31-2019 Episodic Unclassified (1 source) Traumatic subarachnoid hemorrhage with loss of consciousness status unknown, subsequent encounter; Translations: [Traumatic subarachnoid hemorrhage with loss of consciousness status unknown, subsequent encounter] Onset: 02-15-2023 Results Test Name Value Interpretation Reference Range Facility Plastic Surgery Visit Report on 07-13-2024 Plastic Surgery Visit Report [facility] Plastic Reconstructive Surgery [address], [address] [place] [address] OFFICE VISIT Date of Service: 07/13/24 MR#: [id number] Acct: [id number] Name: DALIROSARIO Rep #: [id number] : 1945 Provider: Dr. Jose Matthews MD Age/Sex: 78/F Location: [facility] Status: Signed Intake Vital Signs 07/06/24 14:31 07/13/24 14:26 Height 5 ft 3 in BP 127/69 H 179/84 H Blood Pressure Location Rt brachial Rt brachial Position Sitting Sitting Respiration 18 18 Pulse 90 64 Pulse Source Monitor Temp 98.7 F Temp Source Temporal Pulse Oximetry (%) 95 96 Oxygen Delivery Method room air room air Intake Visit Reasons: 1 W FU Chief Complaint: follow up laceration Is patient in pain?: No Allergies amoxicillin (From Trimox) Allergy (Verified 07/13/24 14:25) Hives Medications ???Medication ???Instructions ???Recorded ???Confirmed ???Type acetaminophen 650 mg 650 mg PO Q8H 03/28/23 07/13/24 Hi story tablet,extended release atorvastatin 10 mg tablet 10 mg PO QHS 03/28/23 07/13/24 His tory bisacodyl 10 mg rectal suppository 10 mg [place] DAILY PRN 03/28/2308/01 History (Dulcolax (bisacodyl)) carbidopa 25 mg-levodopa 100 mg 1 tab PO .QID 03/28/23 07/13/24 Hi story tablet docusate sodium 100 mg capsule 100 mg PO BID PRN 03/28/23 5 History escitalopram oxalate 10 mg tablet 10 mg PO DAILY 03/28/23 07/13/24 History ferrous sulfate 325 mg (65 mg 325 mg PO DAILY 03/28/23 07/13/24 History iron) tablet magnesium hydroxide 400 mg/5 mL 30 ml PO BID PRN 03/28/23 07/13/24 History oral suspension (Milk of Magnesia) midodrine 5 mg tablet 5 mg PO TID 03/28/23 07/13/24 Hist ory polyethylene glycol 3350 17 17 g PO DAILY 03/28/23 07/13/24 Hi story gram/dose oral powder (Miralax) aluminum-mag hydroxide-simethico ne 1 tab PO Q6H PRN 07/03/24 History 200 mg-200 mg-25 mg chewable tablet (Gelusil Antacid and Anti-Gas) amlodipine 5 mg tablet 5 mg PO QDAY 07/03/24 07/13/24 His tory artifi.tears(hyprom ellose)(PF) 1.7 1 drp ophthalmic (eye) TID 07/0307/13/24 History % eye drops with applicator ondansetron HCl 4 mg tablet 4 mg PO Q6H PRN 07/03/24 07/13/24 History Have you fallen in the past year?: Yes PFSH Medical History Blindness left eye category 5, normal vision right eye Unsteadiness on feet Difficulty in walking Anemia Lung nodule Depression Wrist fracture, right Orthostatic hypotension Essential hypertension Subarachnoid hemorrhage following injury Hyperlipidemia Parkinson's disease Surgical History Hx laparoscopic cholecystectomy History of hysterectomy Family History Mother Hypertension Heart disease Diabetes Father Hypertension Emphysema lung Social History Smoking Status: Never smoker alcohol intake: never substance use type: does not use caffeine: Yes Type: coffee Number of servings: 2 additional social history: pt denies vaping, denies edibles, denies marijuana use, denies aspirin and denies ibuprofen use, pt denies family history of blood clots/blood disorders. HPI 1 W FU Details: HPI from 28 Jun 2024 : Rosario Mcnally is a delightful 78-year-old female with history of Parkinson's disease who is at an assisted living apartment who unfortunately had a purely mechanical fall on Tuesday, 25 Jun 2024, and presented to the emergency department under the care of Dr. Yuval Muniz for a left forearm laceration. X-rays did not demonstrate any acute fracture. Her tetanus was updated. Her wound was washed out and closed. She is not currently on any blood thinner. She denies having any wrist pain, bone pain, or elbow pain. No troubles with movement. No deficits. She is here for follow-up of the wound. Patient here today with her adult daughters No personal or family history of bleeding or clotting problems. She is not a smoker 06 Jul 2024: Doing well overall. No fevers chills or drainage. She is approximately 12 days out from the injury. Current encounter, 13 July 2024: Doing well overall. Reports excellent dressing changes Exam Details Left Upper Extremity Inspection/Palpatio n: Forearm with now 10 cm longitudinal wound that is partial thickness along the ulnar dorsal surface that is healing quite well without any signs of fluid collections or infection. No tenderness to palpation over the ulna or radius. No tenderness to palpation of the wrist. No tenderness in the anatomic snuffbox or over the distal pole of the scaphoid near the thumb base or proximal rosa (more content not included)... Normal [facility] Plastic Surgery Visit Report on 07-06-2024 Plastic Surgery Visit Report [facility] Plastic Reconstructive Surgery [address], [address] [place] [address] OFFICE VISIT Date of Service: 07/06/24 MR#: [id number] Acct: [id number] Name: ROSARIO MCNALLY Rep #: [id number] : 1945 Provider: Dr. Jose Matthews MD Age/Sex: 78/F Location: [facility] Status: Signed Intake Vital Signs 3 06/28/24 14:56 07/03/24 10:18 07/06/24 14:31 Height 5 ft 3 in 5 ft 3 in 5 ft 3 in BP 127/69 H Blood Pressure Location Rt brachial Position Sitting Respiration 18 Pulse 90 Temp 98.7 F Temp Source Temporal Pulse Oximetry (%) 95 Oxygen Delivery Method room air Intake Visit Reasons: 1 W FU Chief Complaint: follow up laceration Accompanied by: Daughter Is patient in pain?: No Allergies amoxicillin (From Trimox) Allergy (Verified 07/06/24 14:23) Hives Medications 3 ???Medication ???Instructions ???Recorded ???Confirmed ???Type acetaminophen 650 mg 650 mg PO Q8H 03/28/23 07/06/24 Hi story tablet,extended release atorvastatin 10 mg tablet 10 mg PO QHS 03/28/23 07/06/24 His tory bisacodyl 10 mg rectal suppository 10 mg [place] DAILY PRN 03/28/2306/09 History (Dulcolax (bisacodyl)) carbidopa 25 mg-levodopa 100 mg 1 tab PO .QID 03/28/23 07/06/24 Hi story tablet docusate sodium 100 mg capsule 100 mg PO BID PRN 03/28/23 5 History escitalopram oxalate 10 mg tablet 10 mg PO DAILY 03/28/23 07/06/24 History ferrous sulfate 325 mg (65 mg 325 mg PO DAILY 03/28/23 07/06/24 History iron) tablet magnesium hydroxide 400 mg/5 mL 30 ml PO BID PRN 03/28/23 07/06/24 History oral suspension (Milk of Magnesia) midodrine 5 mg tablet 5 mg PO TID 03/28/23 07/06/24 Hist ory polyethylene glycol 3350 17 17 g PO DAILY 03/28/23 07/06/24 Hi story gram/dose oral powder (Miralax) aluminum-mag hydroxide-simethico ne 1 tab PO Q6H PRN 07/03/24 History 200 mg-200 mg-25 mg chewable tablet (Gelusil Antacid and Anti-Gas) amlodipine 5 mg tablet 5 mg PO QDAY 07/03/24 07/06/24 His tory artifi.tears(hyprom ellose)(PF) 1.7 1 drp ophthalmic (eye) TID 07/0307/06/24 History % eye drops with applicator ondansetron HCl 4 mg tablet 4 mg PO Q6H PRN 07/03/24 07/06/24 History Have you fallen in the past year?: Yes (laceration to forearm) Nurse's Note: pt is here with daughter for follow up laceration left forearm PFSH Medical History Blindness left eye category 5, normal vision right eye Unsteadiness on feet Difficulty in walking Anemia Lung nodule Depression Wrist fracture, right Orthostatic hypotension Essential hypertension Subarachnoid hemorrhage following injury Hyperlipidemia Parkinson's disease Surgical History Hx laparoscopic cholecystectomy History of hysterectomy Family History Mother Hypertension Heart disease Diabetes Father Hypertension Emphysema lung Social History Smoking Status: Never smoker alcohol intake: never substance use type: does not use caffeine: Yes Type: coffee Number of servings: 2 additional social history: pt denies vaping, denies edibles, denies marijuana use, denies aspirin and denies ibuprofen use, pt denies family history of blood clots/blood disorders. HPI 1 W FU Details: HPI from 28 Jun 2024 : Rosario Mcnally is a delightful 78-year-old female with history of Parkinson's disease who is at an assisted living apartment who unfortunately had a purely mechanical fall on Tuesday, 25 Jun 2024, and presented to the emergency department under the care of Dr. Yuval Muniz for a left forearm laceration. X-rays did not demonstrate any acute fracture. Her tetanus was updated. Her wound was washed out and closed. She is not currently on any blood thinner. She denies having any wrist pain, bone pain, or elbow pain. No troubles with movement. No deficits. She is here for follow-up of the wound. Patient here today with her adult daughters No personal or family history of bleeding or clotting problems. She is not a smoker Current encounter, 06 Jul 2024: Doing well overall. No fevers chills or drainage. She is approximately 12 days out from the injury. Exam Details Left Upper Extremity Inspection/Palpatio n: I removed the sutures today without issue. forearm with 25 cm longitudinal laceration along the ulnar dorsal surface that is healing quite well without any signs of fluid collections or infection. No tenderness to palpation over the ulna or radius. No tenderness to palpation of the wrist. No tenderness in the anatomic snuffbox or over the distal pole of the s (more content not included)... Normal [facility] Erythrocyte distribution wid th ratioOrdered By: Rahul Shetty on 07-03-2024 Erythrocyte distribution width (RBC) [Ratio] 14.0 % 11.6-14.6 [facility] Erythrocyte distribution wid th standard deviationOrdered By: Rahul Shetty on 07-03-2024 Erythrocyte distribution width (RBC) [Ratio] 47.7 fl High 35.1-43.9 [facility] Gastroenterology Visit Repor ton 07-03-2024 Gastroenterology Visit Report [facility] Gastroenterology [address] [place] [address] OFFICE VISIT Date of Service: 07/03/24 MR#: [id number] Acct: [id number] Name: ROSARIO MCNALLY Rep #: [id number] : 1945 Provider: RANDALL li Age/Sex: 78/F Location[place] [facility] Status: Signed Intake Vital Signs 06/28/24 14:56 07/03/24 10:18 Height 5 ft 3 in 5 ft 3 in Weight: 134 lb 136 lb BMI 23.7 24.0 BP 165/91 H Blood Pressure Location Rt brachial Position Sitting Respiration 18 18 Pulse 76 66 Temp 97.7 F L Temp Source Oral Pulse Oximetry (%) 94 94 Oxygen Delivery Method room air room air Intake Visit Reasons: ANEMIA POSITIVE HEMOCULT Chief Complaint: occult positive stools Generation Technologist Required: No Accompanied by: Caregiver Is patient in pain?: No Allergies amoxicillin (From Trimox) Allergy (Verified 07/03/24 10:13) Hives Medications ???Medication ???Instructions ???Recorded ???Confirmed ???Type acetaminophen 650 mg 650 mg PO Q8H 03/28/23 07/03/24 Hi story tablet,extended release atorvastatin 10 mg tablet 10 mg PO QHS 03/28/23 07/03/24 His tory bisacodyl 10 mg rectal suppository 10 mg [place] DAILY PRN 03/28/2306/08 History (Dulcolax (bisacodyl)) carbidopa 25 mg-levodopa 100 mg 1 tab PO .QID 03/28/23 07/03/24 Hi story tablet docusate sodium 100 mg capsule 100 mg PO BID PRN 03/28/23 5 History escitalopram oxalate 10 mg tablet 10 mg PO DAILY 03/28/23 07/03/24 History ferrous sulfate 325 mg (65 mg 325 mg PO DAILY 03/28/23 07/03/24 History iron) tablet magnesium hydroxide 400 mg/5 mL 30 ml PO BID PRN 03/28/23 07/03/24 History oral suspension (Milk of Magnesia) midodrine 5 mg tablet 5 mg PO TID 03/28/23 07/03/24 Hist ory polyethylene glycol 3350 17 17 g PO DAILY 03/28/23 07/03/24 Hi story gram/dose oral powder (Miralax) aluminum-mag hydroxide-simethico ne 1 tab PO Q6H PRN 07/03/24 History 200 mg-200 mg-25 mg chewable tablet (Gelusil Antacid and Anti-Gas) amlodipine 5 mg tablet 5 mg PO QDAY 07/03/24 07/03/24 His tory artifi.tears(hyprom ellose)(PF) 1.7 1 drp ophthalmic (eye) TID 07/0307/03/24 History % eye drops with applicator ondansetron HCl 4 mg tablet 4 mg PO Q6H PRN 07/03/24 07/03/24 History Have you fallen in the past year?: Yes PFSH Medical History Blindness left eye category 5, normal vision right eye Unsteadiness on feet Difficulty in walking Anemia Lung nodule Depression Wrist fracture, right Orthostatic hypotension Essential hypertension Subarachnoid hemorrhage following injury Hyperlipidemia Parkinson's disease Surgical History Hx laparoscopic cholecystectomy History of hysterectomy Family History Mother Hypertension Heart disease Diabetes Father Hypertension Emphysema lung Social History Smoking Status: Never smoker alcohol intake: never substance use type: does not use caffeine: Yes Type: coffee Number of servings: 2 additional social history: pt denies vaping, denies edibles, denies marijuana use, denies aspirin and denies ibuprofen use, pt denies family history of blood clots/blood disorders. HPI HPI Chief Complaint: occult positive stools Details: ROSARIO MCNALLY, is a 78 F who presents to the office today for LABS: 07/03/2024 - awaitng results 06/29/2024 HGB 9.8 06/27/2024 HGB 9.1, occult positive 02/15/2023 HGB 9.9 12/28/2021 HGB 10.4 Menses: child bearing age / Abnormal vaginal bleeding: denies Melena: denies Hematochezia: denies Hematuria: denies Hematemesis: denies Epistaxis: denies HB: denies Weight loss: denies Fevers: denies Night sweats: denies Kidney disease: denies NSAIDS: denies Anticoagulants: denies Bruising: yes Fatigue: denies Vegetarian: denies, she does consume red meat Blood donation: denies SOB: denies - H/O gastrointestinal surgeries (Gastric Bypass): denies COLOGUARD: Negative per patient, she believes this was within the past 5 years COLON: unknown when this was last performed - denies any family h/o colon CA EGD: (Celiac labs/Bx) - denies - Family h/o celiac disease: denies - denies any diarrhea or constipation - denies any abdominal pain - reports she would not undergo any invasive surgery or additional testing if a lesion/cancer were found [place] [phone] ROS Const Constitutional: No fatigue, fever(s) or weight change ENT ENT: No difficulty swallowing Gastro GI: Positive for Blood in stool; No abdominal pain, belching, bloating, change in bowel habits, c (more content not included)... Normal [facility] Hematocrit Auto (Bld) [Volum e fraction]Ordered By: Rahul Shetty on 07-03-2024 Hematocrit (Bld) [Volume fraction] 30.5 % Low 37-47 [facility] Hemoglobin measurementOrdere d By: Rahul Shetty on 07-03-2024 Hemoglobin (Bld) [Mass/Vol] 9.8 g/dL Low 12.0-15.0 [facility] MCV (mean corpuscular volume ) determinationOrdered By: Rahul Shetty 07-03-2024 MCV (RBC) [Entitic vol] 93.6 fL 81-99 [facility] Mean corpuscular hemoglobin (MCH) determinationOrdered By: Rahul Shetty on 07-03-2024 MCH (RBC) [Entitic mass] 30.1 pg 27.0-32.0 [facility] Mean corpuscular hemoglobin concentration (MCHC) determinationOrdered By: Rahul Shetty on 07-03-2024 MCHC (RBC) [Mass/Vol] 32.1 g/dL 32-36 [facility] Mean platelet volume determi nationOrdered By: Rahul Shetty 07-03-2024 Platelet mean volume (Bld) [Entitic vol] 10.4 fL 6.2-12.0 [facility] Platelet countOrdered By: Vidal Shetty on 07-03-2024 Platelets (Bld) [#/Vol] 302 10*3/uL 150-450 [facility] RBC Auto (Bld) [#/Vol]Ordere d By: Rahul Shetty on 07-03-2024 RBC (Bld) [#/Vol] 3.26 10*6/uL Low 4.2-5.4 [facility] White blood cell (WBC) count Ordered By: Rahul Shetty on 07-03-2024 WBC (Bld) [#/Vol] 8.4 10*3/uL 4.4-11.0 [facility] Erythrocyte distribution wid th ratioOrdered By: Rahul Shetty on 06-29-2024 Erythrocyte distribution width (RBC) [Ratio] 13.7 % 11.6-14.6 [facility] Erythrocyte distribution wid th standard deviationOrdered By: Rahul Shetty on 06-29-2024 Erythrocyte distribution width (RBC) [Ratio] 46.4 fl High 35.1-43.9 [facility] Hematocrit Auto (Bld) [Volum e fraction]Ordered By: Rahul Shetty on 06-29-2024 Hematocrit (Bld) [Volume fraction] 30.7 % Low 37-47 [facility] Hemoglobin measurementOrdere d By: Rahul Shetty on 06-29-2024 Hemoglobin (Bld) [Mass/Vol] 9.8 g/dL Low 12.0-15.0 [facility] MCV (mean corpuscular volume ) determinationOrdered By: Rahul Shetty on 06-29-2024 MCV (RBC) [Entitic vol] 92.5 fL 81-[address] [facility] Mean corpuscular hemoglobin (MCH) determinationOrdered By: Rahul Shetty on 06-29-2024 MCH (RBC) [Entitic mass] 29.5 pg 27.0-32.0 [facility] Mean corpuscular hemoglobin concentration (MCHC) determinationOrdered By: Rahul Shetty on 06-29-2024 MCHC (RBC) [Mass/Vol] 31.9 g/dL Low 32-36 [facility] Mean platelet volume determi nationOrdered By: Rahul Shetty on 06-29-2024 Platelet mean volume (Bld) [Entitic vol] 10.2 fL 6.2-12.0 [facility] Platelet countOrdered By: Vidal Shetty on 06-29-2024 Platelets (Bld) [#/Vol] 286 10*3/uL 150-450 [facility] RBC Auto (Bld) [#/Vol]Ordere d By: Rahul Shetty on 06-29-2024 RBC (Bld) [#/Vol] 3.32 10*6/uL Low 4.2-5.4 [facility] White blood cell (WBC) count Ordered By: Rahul Shetty on 06-29-2024 WBC (Bld) [#/Vol] 8.0 10*3/uL 4.4-11.0 [facility] Erythrocyte distribution wid th ratioOrdered By: Rahul Shetty on 06-28-2024 Erythrocyte distribution width (RBC) [Ratio] 13.7 % 11.6-14.6 [facility] Erythrocyte distribution wid th standard deviationOrdered By: Rahul Shetty on 06-28-2024 Erythrocyte distribution width (RBC) [Ratio] 46.7 fl High 35.1-43.9 [facility] Hematocrit Auto (Bld) [Volum e fraction]Ordered By: Rahul Shetty on 06-28-2024 Hematocrit (Bld) [Volume fraction] 27.6 % Low 37-47 [facility] Hemoglobin measurementOrdere d By: Rahul Shetty on 06-28-2024 Hemoglobin (Bld) [Mass/Vol] 9.0 g/dL Low 12.0-15.0 [facility] MCV (mean corpuscular volume ) determinationOrdered By: Rahul Shetty on 06-28-2024 MCV (RBC) [Entitic vol] 92.0 fL 81-99 [facility] Mean corpuscular hemoglobin (MCH) determinationOrdered By: Rahul Shetty on 06-28-2024 MCH (RBC) [Entitic mass] 30.0 pg 27.0-32.0 [facility] Mean corpuscular hemoglobin concentration (MCHC) determinationOrdered By: Rahul Shetty on 06-28-2024 MCHC (RBC) [Mass/Vol] 32.6 g/dL 32-36 [facility] Mean platelet volume determi nationOrdered By: Rahul Shetty on 06-28-2024 Platelet mean volume (Bld) [Entitic vol] 10.0 fL 6.2-12.0 [facility] Plastic Surgery Visit Report on 06-28-2024 Plastic Surgery Visit Report [facility] Plastic Reconstructive Surgery [address], [address] [place] [address] OFFICE VISIT Date of Service: 06/28/24 MR#: [id number] Acct: [id number] Name: ROSARIO MCNALLY Rep #: [id number] : 1945 Provider: Dr. Jose Matthews MD Age/Sex: 78/F Location[place] [facility] Status: Signed Intake Vital Signs 3 06/25/24 20:55 06/28/24 14:56 Height 5 ft 3 in 5 ft 3 in Weight: 134 lb BMI 23.7 Blood Pressure Location Rt brachial Position Sitting Respiration 18 Pulse 76 Temp 97.7 F L Temp Source Oral Pulse Oximetry (%) 94 Oxygen Delivery Method room air Intake Visit Reasons: ED FOLLOW UP Chief Complaint: ed follow up laceration of left forearm Accompanied by: Daughter Is patient in pain?: No Allergies amoxicillin (From Trimox) Allergy (Verified 06/28/24 15:02) Hives Medications 3 ???Medication ???Instructions ???Recorded ???Confirmed ???Type acetaminophen 650 mg 650 mg PO Q8H 03/28/23 06/28/24 Hi story tablet,extended release aluminum-mag hydroxide-simethico ne 1 tab PO ONCE 03/28/23 06/28/24 History 200 mg-200 mg-25 mg chewable tablet atorvastatin 10 mg tablet 10 mg PO QHS 03/28/23 06/28/24 His tory bisacodyl 10 mg rectal suppository 10 mg [place] DAILY PRN 03/28/2306/08 History (Dulcolax (bisacodyl)) carbidopa 25 mg-levodopa 100 mg 1 tab PO .QID 03/28/23 06/28/24 Hi story tablet docusate sodium 100 mg capsule 100 mg PO BID PRN 03/28/23 5 History escitalopram oxalate 10 mg tablet 10 mg PO DAILY 03/28/23 06/28/24 History ferrous sulfate 325 mg (65 mg 325 mg PO DAILY 03/28/23 06/28/24 History iron) tablet magnesium hydroxide 400 mg/5 mL 30 ml PO BID PRN 03/28/23 06/28/24 History oral suspension (Milk of Magnesia) midodrine 5 mg tablet 5 mg PO TID 03/28/23 06/28/24 Hist ory mineral oil 118 ml [place] DAILY PRN 03/28/2306/28 History polyethylene glycol 3350 17 17 g PO DAILY 03/28/23 06/28/24 Hi story gram/dose oral powder (Miralax) Have you fallen in the past year?: Yes (result laceration of left forearm) Nurse's Note: pt here with daughters for follow up from ED, fall resulted in left arm laceration, [facility] Medical History Blindness left eye category 5, normal vision right eye Unsteadiness on feet Difficulty in walking Anemia Lung nodule Depression Wrist fracture, right Orthostatic hypotension Essential hypertension Subarachnoid hemorrhage following injury Hyperlipidemia Parkinson's disease Surgical History Hx laparoscopic cholecystectomy History of hysterectomy Family History Mother Hypertension Heart disease Diabetes Father Hypertension Emphysema lung Social History (Updated 06/28/24 @ 14:56 by Daya Hays) Smoking Status: Never smoker alcohol intake: never substance use type: does not use caffeine: Yes Type: coffee Number of servings: 2 additional social history: pt denies vaping, denies edibles, denies marijuana use, denies aspirin and denies ibuprofen use, pt denies family history of blood clots/blood disorders. HPI ED FOLLOW UP Details: Rosario Mcnally is a delightful 78-year-old female with history of Parkinson's disease who is at an assisted living apartment who unfortunately had a purely mechanical fall on Tuesday, 25 Jun 2024, and presented to the emergency department under the care of Dr. Yuval Muniz for a left forearm laceration. X-rays did not demonstrate any acute fracture. Her tetanus was updated. Her wound was washed out and closed. She is not currently on any blood thinner. She denies having any wrist pain, bone pain, or elbow pain. No troubles with movement. No deficits. She is here for follow-up of the wound. Patient here today with her adult daughters No personal or family history of bleeding or clotting problems. She is not a smoker ROS General General: Yes good health; No fatigue, fever(s) or weight loss HENMT HENMT: No rhinitis, sore throat/mouth sore, nasal congestion, contacts or glaucoma Endo Endocrine: No thyroid disease, polydipsia, heat intolerance, cold intolerance, hepatitis or excessive urine Skin Skin: No Bleeding, bruising, changing moles or suspicious lesion Musc Musculoskeletal: Yes joint stiffness; No joint pain, muscle weakness, back pain, osteoarthritis or Muscle aches/ myalgia Neuro Neurological: No headache(s), Yes lightheadedness and No numbness Cardio Cardiovascular: No chest pain, pacemaker, fatigue or shortness of breat with exertion Psych Psychiatric: No depression, claustrophobia or anxiety Resp Respiratory: No spitting up, shortness of breath, sleep apnea, a (more content not included)... Normal [facility] Platelet countOrdered By: Vidal Shetty on 06-28-2024 Platelets (Bld) [#/Vol] 247 10*3/uL 150-450 [facility] RBC Auto (Bld) [#/Vol]Ordere d By: Rahul Shetty on 06-28-2024 RBC (Bld) [#/Vol] 3.00 10*6/uL Low 4.2-5.4 [facility] White blood cell (WBC) count Ordered By: Rahul Shetty on 06-28-2024 WBC (Bld) [#/Vol] 6.3 10*3/uL 4.4-11.0 [facility] Anion gap in Serum or Plasma Ordered By: Rahul Shetty on 06-27-2024 Anion gap [Moles/Vol] 10 mmol/L 5-15 [facility] BUN/creatinine ratioOrdered By: Rahul Shetty on 06-27-2024 Urea nitrogen/Creatinine [Mass ratio] 28.9 mg/mg High 10-20 [facility] Bilirubin, totalOrdered By: Rahul Shetty on 06-27-2024 Bilirubin [Mass/Vol] 0.41 mg/dL 0.00-1.30 [facility] Carbon dioxide, total [Moles /volume] in Central venous bloodOrdered By: Rahul Shetty on 06-27-2024 CO2 [Moles/Vol] 25.8 mmol/L 21.0-32.0 [facility] Chloride assayOrdered By: Vidal Shetty on 06-27-2024 Chloride [Moles/Vol] 106 mmol/L 98-108 [facility] Erythrocyte distribution wid th ratioOrdered By: Rahul Shetty on 06-27-2024 Erythrocyte distribution width (RBC) [Ratio] 14.0 % 11.6-14.6 [facility] Erythrocyte distribution wid th standard deviationOrdered By: Rahul Shetty on 06-27-2024 Erythrocyte distribution width (RBC) [Ratio] 46.9 fl High 35.1-43.9 [facility] Glomerular filtration rate ( GFR) estimation/1.73 sq m using serum, plasma, or whole bOrdered By: Rahul Shetty on 06-27-2024 GFR/1.73 sq M.predicted among non-blacks MDRD (S/P/Bld) [Vol rate/Area] 63 mL/min/{1.73_m2} >60 [facility] Comment on above: mL/min/1.73m2 CKD-EP I Creatinine Equation (2020) Hematocrit Auto (Bld) [Volum e fraction]Ordered By: Rahul Shetty on 06-27-2024 Hematocrit (Bld) [Volume fraction] 28.2 % Low 37-47 [facility] Hemoglobin measurementOrdere d By: Rahul Shetty on 06-27-2024 Hemoglobin (Bld) [Mass/Vol] 9.1 g/dL Low 12.0-15.0 [facility] Laboratory - Chemistry and C hemistry - challengeOrdered By: Rahul Shetty on 06-27-2024 AST [Catalytic activity/Vol] 17 U/L <32 [facility] MCV (mean corpuscular volume ) determinationOrdered By: Rahul Shetty on 06-27-2024 MCV (RBC) [Entitic vol] 92.2 fL 81-99 [facility] Mean corpuscular hemoglobin (MCH) determinationOrdered By: Rahul Shetty on 06-27-2024 MCH (RBC) [Entitic mass] 29.7 pg 27.0-32.0 [facility] Mean corpuscular hemoglobin concentration (MCHC) determinationOrdered By: Rahul Shetty on 06-27-2024 MCHC (RBC) [Mass/Vol] 32.3 g/dL 32-36 [facility] Mean platelet volume determi nationOrdered By: Rahul Shetty on 06-27-2024 Platelet mean volume (Bld) [Entitic vol] 10.2 fL 6.2-12.0 [facility] Platelet countOrdered By: Vidal Shetty on 06-27-2024 Platelets (Bld) [#/Vol] 237 10*3/uL 150-450 [facility] Potassium measurement (mass/ volume)Ordered By: Rahul Shetty on 06-27-2024 Potassium (Unsp spec) [Mass/Vol] 4.3 mmol/L 3.3-5.1 [facility] RBC Auto (Bld) [#/Vol]Ordere d By: Rahul Shetty on 06-27-2024 RBC (Bld) [#/Vol] 3.06 10*6/uL Low 4.2-5.4 [facility] Serum creatinine measurement (mass/volume)Ordered By: Rahul Shetty on 06-27-2024 Creatinine [Mass/Vol] 0.93 mg/dL 0.70-1.20 [facility] Serum globulin measurementOr dered By: Rahul Shetty on 06-27-2024 Globulin (S) [Mass/Vol] 2.9 g/dL 2.2-4.[address] [facility] Serum glucose measurement (m ass/volume)Ordered By: Rahul Shetty on 06-27-2024 Glucose [Mass/Vol] 89 mg/dL 70-99 [facility] Serum or plasma alanine quiles otransferase (ALT) measurementOrdered By: Rahul Shetty on 06-27-2024 ALT [Catalytic activity/Vol] U/L <35 [facility] Serum or plasma albumin patricia urement (mass/volume)Ordered By: Rahul Shetty on 06-27-2024 Albumin [Mass/Vol] 3.7 g/dL 3.4-4.8 [facility] Serum or plasma albumin/glob ulin mass ratioOrdered By: Rahul Shetty on 06-27-2024 Albumin/Globulin [Mass ratio] 1.3 {ratio} 0.9-2.4 [facility] Serum or plasma alkaline enriqueta sphatase measurementOrdered By: Rahul Shetty on 06-27-2024 ALP [Catalytic activity/Vol] 90 U/L 35-104 [facility] Serum or plasma calcium patricia urement (mass/volume)Ordered By: Rahul Shetty on 06-27-2024 Calcium [Mass/Vol] 9.1 mg/dL 7.6-11.0 [facility] Serum or plasma urea nitroge n measurement (mass/volume)Ordered By: Rahul Shetty on 06-27-2024 Urea nitrogen [Mass/Vol] 27 mg/dL High 4-19 [facility] Sodium levelOrdered By: Clyde Shetty on 06-27-2024 Sodium [Moles/Vol] 142 mmol/L 133-145 [facility] Stool gastrointestinal hemog lobin detection by immunologic methodOrdered By: Rahul Shetty on 06-27-2024 Lower GI hemoglobin IA Ql (Stl) Positive Abnormal [facility] Total proteinOrdered By: Lucien Shetty on 06-27-2024 Protein [Mass/Vol] 6.6 g/dL 5.9-8.4 [facility] White blood cell (WBC) count Ordered By: Rahul Shetty on 06-27-2024 WBC (Bld) [#/Vol] 6.9 10*3/uL 4.4-11.0 [facility] Bilirubin Test strip Ql (U)O rdered By: Rahul Shetty on 06-26-2024 Bilirubin Ql (U) Negative Negative [facility] Ketones Test strip Ql (U)Ord ered By: Rahul Shetty on 06-26-2024 Ketones Ql (U) 5 mg/dl High Negative [facility] Microscopic analysis of urin e for red blood cells (RBC)Ordered By: Rahul Shetty on 06-26-2024 Microscopic analysis of urine for red blood cells (RBC) 0 SEEN /hpf 0-5 [facility] Mucus LM Ql (Urine sed)Order ed By: Rahul Shetty on 06-26-2024 Mucus Ql (Urine sed) 1+ /hpf [facility] Nitrite Test strip Ql (U)Ord ered By: Rahul Shetty on 06-26-2024 Nitrite Ql (U) Negative Negative [facility] Protein Test strip Ql (U)Ord ered By: Rahul Shetty on 06-26-2024 Protein Ql (U) 30 mg/dl High Negative [facility] Squamous epithelial cells de tection in urine sediment by light microscopyOrdered By: Rahul Shetty on 06-26-2024 Epithelial cells.squamous LM Ql (Urine sed) 0-5 SEEN /hpf 5-10 [facility] Urine clarityOrdered By: Lucien Shetty on 06-26-2024 Clarity (U) Clear Clear [facility] Urine color determinationOrd ered By: Rahul Shetty on 06-26-2024 Color (U) Yellow Yellow [facility] Urine cultureOrdered By: Lucien Shetty on 06-26-2024 Bacteria identified Cx Nom (U) Positive Abnormal [facility] Urine glucose detectionOrder ed By: Rahul Shetty on 06-26-2024 Glucose Ql (U) Normal mg/dl Normal [facility] Urine leukocyte esterase det ection by dipstickOrdered By: Rahul Shetty on 06-26-2024 Leukocyte esterase Test strip Ql (U) Negative Negative [facility] Urine pHOrdered By: Rahul jackson on 06-26-2024 pH (U) 5.0 [pH] 5.0 - 8.0 [facility] Urine sediment bacteria coun t by microscopy (number/high power field)Ordered By: Rahul Shetty on 06-26-2024 Bacteria LM.HPF (Urine sed) [#/Area] 1 /[HPF] None Seen [facility] Urine sediment fine granular cast count by microscopy (number/low power field)Ordered By: Rahul Shetty on 06-26-2024 Fine Granular Casts LM.LPF (Urine sed) [#/Area] 0-5 SEEN /lpf 0-5 [facility] Urine specific gravity measu rementOrdered By: Rahul Shetty on 06-26-2024 Specific gravity (U) [Rel density] 1.020 1.002-1.030 [facility] Urine urobilinogen measureme ntOrdered By: Rahul Shetty on 06-26-2024 Urobilinogen Ql (U) Normal mg/dl Normal [facility] White blood cell countOrdere d By: Rahul Shetty on 05-20-2025 White blood cell count 0 SEEN /hpf 0-5 [facility] Emergency Department Summary on 06-25-2024 Emergency Department Summary [facility] Medical Records Department [address] [place] [address] Emergency Department Summary 06/25/24 MR#: [id number] Acct: [id number] Name: ROSARIO MCNALLY Rep #: [id number] : 1945 78 From: Joel Muniz MD PCP: Dr. Yahaira Winn MD Status:DEP ER Location: ED HPI History of Present Illness HPI Narrative: 78-year-old female history of Parkinson disease, anemia. Unwitnessed fall today at [facility]. Has a large forearm laceration/skin tear. Denies hitting her head. Denies any LOC. Denies any other complaints. She is right-hand dominant. Unsure of her tetanus is up-to-date. Chief Complaint: Laceration Informant: patient Occured/Mechanism Mechanism/Context: Yes injury and Yes blunt trauma Onset/Context/Timin g Onset: Today and Hours Context: Sudden Onset Timing: Continuous Current Severity: Moderate Maximum Severity: Moderate Associated Symptoms Associated Symptoms: Negative for Parasthesia, Weakness or Loss of Funtion Narrative Narrative: 78-year-old female from [facility]. Unwitnessed fall. Large skin tear left forearm over the dorsum. Denies other complaints. No head injury. No LOC. She is on no blood thinners. Tetanus Immunization: Unknown Prior similar symptoms: No Recent Illness/Hospitaliza tion: No PFSH PFSH Medical History Blindness left eye category 5, normal vision right eye Unsteadiness on feet Difficulty in walking Anemia Lung nodule Depression Wrist fracture, right Orthostatic hypotension Essential hypertension Subarachnoid hemorrhage following injury Hyperlipidemia Parkinson's disease Home Medications ???Medication ???Instructions ???Recorded ???Last Taken ???Type acetaminophen 650 mg 650 mg PO Q8H 03/28/23 Unknown His tory tablet,extended release aluminum-mag hydroxide-simethico ne 1 tab PO ONCE 03/28/23 Unknown H istory 200 mg-200 mg-25 mg chewable tablet atorvastatin 10 mg tablet 10 mg PO QHS 03/28/23 Unknown Hist ory bisacodyl 10 mg rectal suppository 10 mg [place] DAILY PRN 03/28/23 Unkn own History (Dulcolax (bisacodyl)) carbidopa 25 mg-levodopa 100 mg 1 tab PO .QID 03/28/23 Unknown His tory tablet docusate sodium 100 mg capsule 100 mg PO BID PRN 03/28/23 Unknown History escitalopram oxalate 10 mg tablet 10 mg PO DAILY 03/28/23 Unknown H istory ferrous sulfate 325 mg (65 mg 325 mg PO DAILY 03/28/23 Unknown H istory iron) tablet magnesium hydroxide 400 mg/5 mL 30 ml PO BID PRN 03/28/23 Unknown History oral suspension (Milk of Magnesia) midodrine 5 mg tablet 5 mg PO TID 03/28/23 Unknown Histo ry mineral oil 118 ml [place] DAILY PRN 03/28/23 Unkno wn History polyethylene glycol 3350 17 17 g PO DAILY 03/28/23 Unknown His tory gram/dose oral powder (Miralax) Allergy/AdvReac Type Severity Reaction Status Date / Time amoxicillin (From Trimox) Allergy Hives Verified 06/25/24 20:55 Family History Mother Hypertension Heart disease Diabetes Father Hypertension Emphysema lung Surgical History Hx laparoscopic cholecystectomy History of hysterectomy Social History Smoking Status: Never smoker alcohol intake: never substance use type: does not use caffeine: Yes Type: coffee Number of servings: 2 ROS ROS ED ROS Narrative Denies recent illness. Constitutional Constitutional ED: Denies fever(s) Eyes Eyes: Denies blurry vision ENT ENT ED: Denies ear pain Cardiovascular Cardiovascular: Denies chest pain or palpitations Respiratory/Chest Respiratory/Chest: Denies cough or dyspnea Gastrointestinal Gastrointestinal: Denies abdominal pain Genitourinary Genitourinary ED: Denies dysuria or hematuria Musculoskeletal Musculoskeletal: Denies back pain or myalgias Integumentary Denies abscess Neurologic Neurologic: Denies headache(s) Psychiatric Psychiatric: Denies anxiety Endocrine Endocrinology: Denies cold intolerance Hematologic/Lymphat ic Hematologic/Lymphat ic: Denies easy bleeding, easy bruising or lymphadenopathy Allergic/Immunologi c Allergic/Immunologi c ED: Denies tongue swelling or urticaria EXAM Physical Exam Narrative Exam Narrative: 78-year-old female sitting upright in bed. Family at bedside. She is no acute distress. Has a dressing on her left forearm. H EENT exam left eye pupils reactive light. Right eye she is blind in. No facial or scalp trauma. Nontender no hematoma. Neck nontender. Trachea midline. Back nontender. Lungs clear to auscultation. Heart regular rhythm rate about 70 no murmur. Chest wall and ribs nontender. Abdomen soft nontender. Pelvic girdle int (more content not included)... Normal [facility] Forearm 2 Viewson 06-25-2024 Forearm 2 Views [facility] Services [address] [place] [address] [id number] Forearm 2 Views MR#: [id number] Acct: [id number] Name: ROSARIO MCNALLY Rep #: [id number] : 1945 F 78 From: Joao Rondon MD PCP: Dr. Yahaira Winn MD Status: REG ER Study: Forearm 2 Views Date of Exam: 06/25/24 Exam# [id number] Ordering Dr: Joel Muniz MD PROCEDURE: FOREARM 2 VIEWS 06/25/2024 REASON FOR EXAM: FALL TECHNIQUE: 2 view(s) of the left forearm COMPARISON: None FINDINGS: No displaced fracture or traumatic malalignment. Joint spaces are predominantly maintained. Mild decrease in bone mineral density. Bandage material limits evaluation of the soft tissues.. RAD/Forearm 2 Views IMPRESSION: No displaced fracture of the left forearm. Mild osteopenia slightly limits this evaluation. Reading Location: [id number] CC: Dr. Yahaira Winn MD; Dr. Joel Muniz MD Account Manager Sales Representative: Signed Normal [facility] LABORATORYOrdered By: Cate Galloway on 02-23-2023 Glucose [Mass/Vol] 133 mg/dL High 82 - 115 mg/dL [facility] EMERGENCY REPORTon EMERGENCY REPORT [facility] EMERGENCY ROOM REPORT NAME ACCOUNT SEX AGE ADMIT DISCHARGE PT MED. RECORD# NUMBER DATE DATE TYPE DALI [id number] F 77 02/08/23 02/08/23 3 ROSARIO Lopez [id number] ROOM: ER DATE OF : 1945 DICTATING PHYSICIAN: Grey Connor CHIEF COMPLAINT: Frequent falls with falling down steps and increasingly weak and confused. HISTORY OF PRESENT ILLNESS: Teressa patient lives at home. Normally, according to family, she gets around fairly well. She has Parkinson, so she does seem to shuffle a lot. Her daughter relates that she has recently been having more frequent falls and two nights ago on she fell down 8 to 10 steps. This was not witnessed. She was found lying down at the end of the steps and was able to get helped up and could be helped to bed. Since then, she has not been able to get up and around as well. She has definitely felt weaker, decreased appetite. Daughter says she seems more confused. She has a small abrasion/laceration to her elbow and some minimal scattered bruises. She has not had documented fever, but according to daughter does have a history of frequent UTI's, and they bring her for evaluation thinking maybe that there was some underlying infection that maybe causing her weakness. PAST MEDICAL HISTORY: Past medical history is significant for hypertension and Parkinson disease. PAST SURGICAL HISTORY: A number of previous surgeries, as noted on the surgery list. MEDICATIONS: Per [facility] rec list. SOCIAL HISTORY: She lives at home. She does not smoke or drink alcohol. She is accompanied here with one of her daughters. REVIEW OF SYSTEMS: No known fever. No cough or congestion. PHYSICAL EXAMINATION: GENERAL: This is a 77-year-old thin female who is awake and alert. She is generally appropriate and responds to most questions and commands, but is mildly confused with some questioning. She does not appear in any significant pain or any respiratory distress. SKIN: Her skin is pink and dry. HEENT: She does have an area of tenderness with very minimal soft tissue swelling to the posterior scalp area along the occipital area. No open areas. Pupils are equal, round, and reactive to light. Extraocular muscles are intact. TMs, nose, mouth, and throat showed mildly dry mucosa, otherwise within normal limits. Breath is a bit fetid. NECK: His neck is supple Page 1 of 2 ROSARIO MCNALLY Emergency Room Report ROSARIO MCNALLY : 1945 without adenopathy. LUNGS: Lungs are clear without crackles or wheezes. No respiratory distress. CARDIAC: Cardiac exam is regular rhythm without ectopy or murmurs. ABDOMEN: Abdomen is thin, soft and nontender. EXTREMITIES: Good peripheral pulses. Generally good capillary refill. VITAL SIGNS: Temperature 98.4, pulse 78, respirations 16, and blood pressure 152/80. Her O2 saturation was 92 to 94%. DIAGNOSTIC DATA: I did get a head CT, laboratory studies, and urinalysis. Laboratories and urinalysis were generally unremarkable. Head CT does show a small right posterior occipital subarachnoid hemorrhage. EMERGENCY DEPARTMENT COURSE AND TREATMENT: With her limited ability to walk and frequent falls, I feel that sending her home is not a good option. Because of this being trauma, I felt that a trauma evaluation was indicated. DIAGNOSIS: Fall with subarachnoid hemorrhage. PLAN/DISPOSITION: I discussed with the emergency department physician and neurosurgeon, she will be transferred there for further management. Dictated By: Grey Connor MD 02/08/23 15:14 JOB #: [id number] Transcribed By: ian 02/09/23 07:28 Electronically signed by: MODESTO Connor M.D. 02/22/23 07:05 Page 2 of 2 ROSARIO MCNALLY Emergency Room Report Normal [facility] XR WRIST MINIMUM 3 VIEWS RIG on 02-21-2023 XR WRIST MINIMUM 3 VIEWS RIGHT ORIGINAL EXAMINATION: THREE XRAY VIEWS OF THE RIGHT WRIST02/21/2023 12:14 pm COMPARISON: None HISTORY: ORDERING SYSTEM PROVIDED HISTORY: Reason for Exam: follow up, pain, history of fall, given history of fracture FINDINGS: Bones are mildly osteopenic. There is no obvious acute fracture or dislocation distal radius and ulna and the radiocarpal and intercarpal joints. Navicular appears intact. There is abnormal alignment at the 2nd and 3rd carpal metacarpal joints that is suspicious for fracture dislocations that are poorly evaluated. IMPRESSION: Suspect fracture dislocation at the 2nd and 3rd carpal metacarpal joints. This is suboptimally evaluated on radiographs. CT may be appropriate particularly if surgery is being contemplated. Interpreted by: Leo Ortiz MD Preliminary Report By: Leo Ortiz MD Electronically signed By Leo Ortiz MD Dictated Date: 02/21/2023 12:20:16 PM Prelim Date: 02/21/2023 12:22:22 PM Sign Date: 02/21/2023 12:22:22 PM Ordering Provider: STAN Tirado [facility] ([place]) .Auto Diffon 02-16-2023 Basophil, Absolute 0.0 10 3/mcL Normal 0.0-0.3 [facility] ([place]) Comment on above: Performed By: #### C BC, MG, ADIFF, BMP, ANEU, GFR, LARON #### [address] [address] Basophils/100 WBC (Bld) 0.6 % Normal 0.0-2.5 [facility] ([place]) Comment on above: Performed By: #### C BC, MG, ADIFF, BMP, ANEU, GFR, LARON #### [address] [address] Eosinophil, Absolute 0.3 10 3/mcL Normal 0.0-0.7 Replaced by [facility] ([place]) Comment on above: Performed By: #### C BC, MG, ADIFF, BMP, ANEU, GFR, LARON #### [address] [address] Eosinophils/100 WBC (Bld) 4.3 % Normal 0.0-6.0 [facility] ([place]) Comment on above: Performed By: #### C BC, MG, ADIFF, BMP, ANEU, GFR, LARON #### [address] [address] Lymphocyte, Absolute 1.1 10 3/mcL Normal 0.9-4.3 Replaced by [facility] ([place]) Comment on above: Performed By: #### C BC, MG, ADIFF, BMP, ANEU, GFR, LARON #### [address] [address] Lymphocytes/100 WBC (Bld) 18.4 % Low 20.0-40.0 [facility] ([place]) Comment on above: Performed By: #### C BC, MG, ADIFF, BMP, ANEU, GFR, LARON #### [address] [address] Monocyte, Absolute 0.7 10 3/mcL Normal 0.1-1.4 [facility] ([place]) Comment on above: Performed By: #### C BC, MG, ADIFF, BMP, ANEU, GFR, LARON #### [address] [address] Monocytes/100 WBC (Bld) 11.9 % Normal 2.0-13.0 [facility] ([place]) Comment on above: Performed By: #### C BC, MG, ADIFF, BMP, ANEU, GFR, LARON #### [address] [address] Neutrophils/100 WBC (Bld) 64.8 % Normal 50.0-75.0 [facility] ([place]) Comment on above: Performed By: #### C BC, MG, ADIFF, BMP, ANEU, GFR, LARON #### [address] [address] .GFRon 02-16-2023 GFR >60 Normal [facility] ([place]) Comment on above: Result Comment: GFR Population mean for , Non- Americans Ages 20-29 = 116 mL/min/1.73 sq.m. Ages 30-39 = 107 mL/min/1.73 sq.m. Ages 40-49 = 99 mL/min/1.73 sq.m. Ages 50-59 = 93 mL/min/1.73 sq.m. Ages 60-69 = 85 mL/min/1.73 sq.m. Ages 70+ = 75 mL/min/1.73 sq.m. Chronic Kidney Disease: Less than 60 mL/min/1.73 square meters End Stage Renal Disease: Less than 15 mL/min/1.73 square meters Performed By: #### C BC, MG, ADIFF, BMP, ANEU, GFR, LARON #### [address] [address] GFR Non- >60 Normal [facility] ([place]) Comment on above: Result Comment: GFR Population mean for , Non- Americans Ages 20-29 = 116 mL/min/1.73 sq.m. Ages 30-39 = 107 mL/min/1.73 sq.m. Ages 40-49 = 99 mL/min/1.73 sq.m. Ages 50-59 = 93 mL/min/1.73 sq.m. Ages 60-69 = 85 mL/min/1.73 sq.m. Ages 70+ = 75 mL/min/1.73 sq.m. Chronic Kidney Disease: Less than 60 mL/min/1.73 square meters End Stage Renal Disease: Less than 15 mL/min/1.73 square meters Performed By: #### C BC, MG, ADIFF, BMP, ANEU, GFR, LARON #### [address] [address] .NEUABSon 02-16-2023 Neutrophil, Absolute 4.0 10 3/mcL Normal 2.3-8.1 Replaced by [facility] ([place]) Comment on above: Performed By: #### C BC, MG, ADIFF, BMP, ANEU, GFR, LARON #### [address] [address] BMPon 02-16-2023 BUN/Creatinine Ratio 19.0 ratio Normal 10.0-22.0 [facility] ([place]) Comment on above: Performed By: #### C BC, MG, ADIFF, BMP, ANEU, GFR, LARON #### [address] [address] Calcium [Mass/Vol] 8.8 mg/dL Normal 8.7-10.4 [facility] ([place]) Comment on above: Performed By: #### C BC, MG, ADIFF, BMP, ANEU, GFR, LARON #### [address] [address] Chloride [Moles/Vol] 105 mmol/L Normal 98-110 [facility] ([place]) Comment on above: Performed By: #### C BC, MG, ADIFF, BMP, ANEU, GFR, LARON #### [address] [address] CO2 [Moles/Vol] 33 mmol/L High 22-32 [facility] ([place]) Comment on above: Performed By: #### C BC, MG, ADIFF, BMP, ANEU, GFR, LARON #### [address] [address] Creatinine [Mass/Vol] 0.58 mg/dL Normal 0.50-1.20 [facility] ([place] Comment on above: Performed By: #### C BC, MG, ADIFF, BMP, ANEU, GFR, LARON #### [address] [address] Electrolyte Balance 2.0 mEq/L Low 4.0-15.0 Count includes the [facility] ([place]) Comment on above: Performed By: #### C BC, MG, ADIFF, BMP, ANEU, GFR, LARON #### [address] [address] Glucose [Mass/Vol] 90 mg/dL Normal 82-115 [facility] ([place]) Comment on above: Performed By: #### C BC, MG, ADIFF, BMP, ANEU, GFR, LARON #### [place] [id number] Potassium [Moles/Vol] 3.6 mmol/L Normal 3.5-5.0 [facility] ([place]) Comment on above: Performed By: #### C BC, MG, ADIFF, BMP, ANEU, GFR, LARON #### [place] [id number] Sodium [Moles/Vol] 140 mmol/L Normal 136-145 [facility] ([place]) Comment on above: Performed By: #### C BC, MG, ADIFF, BMP, ANEU, GFR, LARON #### [address] [address] Urea nitrogen [Mass/Vol] 11.0 mg/dL Normal 8.0-22.0 [facility] ([place]) Comment on above: Performed By: #### C BC, MG, ADIFF, BMP, ANEU, GFR, LARON #### [address] [address] CBCon 02-16-2023 Erythrocyte distribution width (RBC) [Ratio] 13.8 % Normal 11.5-15.5 [facility] ([place]) Comment on above: Performed By: #### C BC, MG, ADIFF, BMP, ANEU, GFR, LARON #### [place] [address] Hematocrit (Bld) [Volume fraction] 28.4 % Low 34.0-46.0 [facility] ([place]) Comment on above: Performed By: #### C BC, MG, ADIFF, BMP, ANEU, GFR, LARON #### [place] [id number] Hgb 9.9 G/dL Low 12.0-16.0 [facility] ([place]) Comment on above: Performed By: #### C BC, MG, ADIFF, BMP, ANEU, GFR, LARON #### [place] [address] MCH (RBC) [Entitic mass] 31.1 pg Normal 27.0-33.0 [facility] ([place]) Comment on above: Performed By: #### C BC, MG, ADIFF, BMP, ANEU, GFR, LARON #### [place] [address] MCHC 34.7 G/dL Normal 32.0-36.0 [facility] ([place]) Comment on above: Performed By: #### C BC, MG, ADIFF, BMP, ANEU, GFR, LARON #### [place] [address] MCV (RBC) [Entitic vol] 89.6 fL Normal 80.0-99.0 A [facility] ([place]) Comment on above: Performed By: #### C BC, MG, ADIFF, BMP, ANEU, GFR, LARON #### [place] [address] Platelet 284 10 3/mcL Normal 150-450 [facility] ([place]) Comment on above: Performed By: #### C BC, MG, ADIFF, BMP, ANEU, GFR, LARON #### [place] [address] Platelet mean volume (Bld) [Entitic vol] 7.9 fL Normal 6.6-10.5 [facility] ([place]) Comment on above: Performed By: #### C BC, MG, ADIFF, BMP, ANEU, GFR, LARON #### [facility] [address] [place] [address] RBC 3.17 10 6/mcL Low 4.10-5.30 [facility] ([place]) Comment on above: Performed By: #### C BC, MG, ADIFF, BMP, ANEU, GFR, LARON #### [facility] [address] [place] [address] WBC 6.2 10 3/mcL Normal 4.5-10.8 [facility] ([place]) Comment on above: Performed By: #### C BC, MG, ADIFF, BMP, ANEU, GFR, LARON #### [facility] [address] [place] [address] LABORATORYOrdered By: SYSTEM SYSTEM on 02-16-2023 Basophils (Bld) [#/Vol] 0.0 103/mcL Normal 0.0 - 0.3 10^3/mcL Workflow SS Basophils/100 WBC (Bld) 0.6 % Normal 0.0 - 2.5 % Workflow SS Calcium [Mass/Vol] 8.8 mg/dL Normal 8.7 - 10. 4 mg/dL ADM SS Chloride [Moles/Vol] 105 mmol/L Normal 98 - 11 0 mEq/L ADM SS CO2 [Moles/Vol] 33 mmol/L High 22 - 32 mEq/L ADM SS Creatinine [Mass/Vol] 0.58 mg/dL Normal 0.50 - 1.20 mg/dL ADM SS Electrolyte Balance 2.0 mEq/L Low 4.0 - 15 .0 mEq/L ADM SS Eosinophils (Bld) [#/Vol] 0.3 103/mcL Normal 0.0 - 0.7 10^3/mcL Workflow SS Eosinophils/100 WBC (Bld) 4.3 % Normal 0.0 - 6.0 % Workflow SS Erythrocyte distribution width (RBC) [Ratio] 13.8 % Normal 11.5 - 15.5 % Workflow SS GFR/1.73 sq M.predicted among blacks MDRD (S/P/Bld) [Vol rate/Area] ml/min/1.73sqm Invalid Interpretation Code Chemistry S Comment on above: Interpretive Data: GFR Population mean for , Non- Americans Ages 20-29 = 116 mL/min/1.73 sq.m. Ages 30-39 = 107 mL/min/1.73 sq.m. Ages 40-49 = 99 mL/min/1.73 sq.m. Ages 50-59 = 93 mL/min/1.73 sq.m. Ages 60-69 = 85 mL/min/1.73 sq.m. Ages 70+ = 75 mL/min/1.73 sq.m. Chronic Kidney Disease: Less than 60 mL/min/1.73 square meters End Stage Renal Disease: Less than 15 mL/min/1.73 square meters GFR/1.73 sq M.predicted among non-blacks MDRD (S/P/Bld) [Vol rate/Area] ml/min/1.73sqm Invalid Interpretation Code Chemistry S Comment on above: Interpretive Data: GFR Population mean for , Non- Americans Ages 20-29 = 116 mL/min/1.73 sq.m. Ages 30-39 = 107 mL/min/1.73 sq.m. Ages 40-49 = 99 mL/min/1.73 sq.m. Ages 50-59 = 93 mL/min/1.73 sq.m. Ages 60-69 = 85 mL/min/1.73 sq.m. Ages 70+ = 75 mL/min/1.73 sq.m. Chronic Kidney Disease: Less than 60 mL/min/1.73 square meters End Stage Renal Disease: Less than 15 mL/min/1.73 square meters Glucose [Mass/Vol] 90 mg/dL Normal 82 - 115 mg/dL ADM SS Hematocrit (Bld) [Volume fraction] 28.4 % Low 34.0 - 46.0 % Workflow SS Hemoglobin (Bld) [Mass/Vol] 9.9 G/dL Low 12.0 - 16.0 G/dL Workflow SS Lymphocytes (Bld) [#/Vol] 1.1 103/mcL Normal 0.9 - 4.3 10^3/mcL Workflow SS Lymphocytes/100 WBC (Bld) 18.4 % Low 20.0 - 40.0 % Workflow SS MCH (RBC) [Entitic mass] 31.1 pg Normal 27.0 - 33.0 pg Workflow SS MCHC 34.7 G/dL Normal 32.0 - 36.0 G/dL AH Workflow SS MCV (RBC) [Entitic vol] 89.6 fL Normal 80.0 - 99.0 fL AH Workflow SS Monocytes (Bld) [#/Vol] 0.7 103/mcL Normal 0.1 - 1.4 10^3/mcL AH Workflow SS Monocytes/100 WBC (Bld) 11.9 % Normal 2.0 - 13.0 % AH Workflow SS Neutrophils (Bld) [#/Vol] 4.0 103/mcL Normal 2.3 - 8.1 10^3/mcL AH Workflow SS Neutrophils/100 WBC (Bld) 64.8 % Normal 50.0 - 75.0 % AH Workflow SS Platelet mean volume (Bld) [Entitic vol] 7.9 fL Normal 6.6 - 10.5 fL AH Workflow SS Platelets (Bld) [#/Vol] 284 103/mcL Normal 150 - 450 10^3/mcL AH Workflow SS Potassium [Moles/Vol] 3.6 mmol/L Normal 3.5 - 5.0 mEq/L AH ADM SS RBC (Bld) [#/Vol] 3.17 106/mcL Low 4.10 - 5.3 0 10^6/mcL AH Workflow SS Sodium [Moles/Vol] 140 mmol/L Normal 136 - 145 mEq/L AH ADM SS Urea nitrogen [Mass/Vol] 11.0 mg/dL Normal 8.0 - 22.0 mg/dL AH ADM SS Urea nitrogen/Creatinine [Mass ratio] 19.0 ratio Normal 10.0 - 22.0 ratio AH ADM SS WBC (Bld) [#/Vol] 6.2 103/mcL Normal 4.5 - 10.8 10^3/mcL AH Workflow SS .Auto Diffon 02-15-2023 Basophil, Absolute 0.0 10 3/mcL Normal 0.0-0.3 [facility] ([place]) Comment on above: Performed By: #### C BC, MG, ADIFF, BMP, ANEU, GFR, LARON #### [address] [address] Basophils/100 WBC (Bld) 0.5 % Normal 0.0-2.5 A [facility] ([place]) Comment on above: Performed By: #### C BC, MG, ADIFF, BMP, ANEU, GFR, LARON #### [address] [address] Eosinophil, Absolute 0.2 10 3/mcL Normal 0.0-0.7 Replaced by [facility] ([place]) Comment on above: Performed By: #### C BC, MG, ADIFF, BMP, ANEU, GFR, LARON #### [address] [address] Eosinophils/100 WBC (Bld) 3.1 % Normal 0.0-6.0 [facility] ([place]) Comment on above: Performed By: #### C BC, MG, ADIFF, BMP, ANEU, GFR, LARON #### [address] [address] Lymphocyte, Absolute 1.4 10 3/mcL Normal 0.9-4.3 Replaced by [facility] ([place]) Comment on above: Performed By: #### C BC, MG, ADIFF, BMP, ANEU, GFR, LARON #### [address] [address] Lymphocytes/100 WBC (Bld) 19.7 % Low 20.0-40.0 [facility] ([place]) Comment on above: Performed By: #### C BC, MG, ADIFF, BMP, ANEU, GFR, LARON #### [address] [address] Monocyte, Absolute 0.8 10 3/mcL Normal 0.1-1.4 [facility] ([place]) Comment on above: Performed By: #### C BC, MG, ADIFF, BMP, ANEU, GFR, LARON #### [address] [address] Monocytes/100 WBC (Bld) 11.1 % Normal 2.0-13.0 [facility] ([place]) Comment on above: Performed By: #### C BC, MG, ADIFF, BMP, ANEU, GFR, LARON #### [address] [address] Neutrophils/100 WBC (Bld) 65.6 % Normal 50.0-75.0 [facility] ([place]) Comment on above: Performed By: #### C BC, MG, ADIFF, BMP, ANEU, GFR, LARON #### [address] [address] .GFRon 02-15-2023 GFR >60 Normal [facility] ([place]) Comment on above: Result Comment: GFR Population mean for , Non- Americans Ages 20-29 = 116 mL/min/1.73 sq.m. Ages 30-39 = 107 mL/min/1.73 sq.m. Ages 40-49 = 99 mL/min/1.73 sq.m. Ages 50-59 = 93 mL/min/1.73 sq.m. Ages 60-69 = 85 mL/min/1.73 sq.m. Ages 70+ = 75 mL/min/1.73 sq.m. Chronic Kidney Disease: Less than 60 mL/min/1.73 square meters End Stage Renal Disease: Less than 15 mL/min/1.73 square meters Performed By: #### C BC, MG, ADIFF, BMP, ANEU, GFR, LARON #### [place] [address] GFR Non- >60 Normal [facility] ([place]) Comment on above: Result Comment: GFR Population mean for , Non- Americans Ages 20-29 = 116 mL/min/1.73 sq.m. Ages 30-39 = 107 mL/min/1.73 sq.m. Ages 40-49 = 99 mL/min/1.73 sq.m. Ages 50-59 = 93 mL/min/1.73 sq.m. Ages 60-69 = 85 mL/min/1.73 sq.m. Ages 70+ = 75 mL/min/1.73 sq.m. Chronic Kidney Disease: Less than 60 mL/min/1.73 square meters End Stage Renal Disease: Less than 15 mL/min/1.73 square meters Performed By: #### C BC, MG, ADIFF, BMP, ANEU, GFR, LARON #### [place] [address] .NEUABSon 02-15-2023 Neutrophil, Absolute 4.5 10 3/mcL Normal 2.3-8.1 Replaced by [facility] ([place]) Comment on above: Performed By: #### C BC, MG, ADIFF, BMP, ANEU, GFR, LARON #### [address] [address] BMPon 02-15-2023 BUN/Creatinine Ratio 17.5 ratio Normal 10.0-22.0 [facility] ([place]) Comment on above: Performed By: #### C BC, MG, ADIFF, BMP, ANEU, GFR, LARON #### [place] [id number] Calcium [Mass/Vol] 8.4 mg/dL Low 8.7-10.4 [facility] ([place]) Comment on above: Performed By: #### C BC, MG, ADIFF, BMP, ANEU, GFR, LARON #### [place] [id number] Chloride [Moles/Vol] 111 mmol/L High 98-110 [facility] ([place]) Comment on above: Performed By: #### C BC, MG, ADIFF, BMP, ANEU, GFR, LARON #### [place] [address] CO2 [Moles/Vol] 29 mmol/L Normal 22-32 [facility] ([place]) Comment on above: Performed By: #### C BC, MG, ADIFF, BMP, ANEU, GFR, LARON #### [place] [address] Creatinine [Mass/Vol] 0.57 mg/dL Normal 0.50-1.20 [facility] ([place]) Comment on above: Performed By: #### C BC, MG, ADIFF, BMP, ANEU, GFR, LARON #### [place] [address] Electrolyte Balance 2.0 mEq/L Low 4.0-15.0 Count includes the [facility] ([place]) Comment on above: Performed By: #### C BC, MG, ADIFF, BMP, ANEU, GFR, LARON #### [place] [id number] Glucose [Mass/Vol] 87 mg/dL Normal 82-115 [facility] ([place]) Comment on above: Performed By: #### C BC, MG, ADIFF, BMP, ANEU, GFR, LARON #### [place] [id number] Potassium [Moles/Vol] 3.6 mmol/L Normal 3.5-5.0 [facility] ([place]) Comment on above: Performed By: #### C BC, MG, ADIFF, BMP, ANEU, GFR, LARON #### [place] [id number] Sodium [Moles/Vol] 142 mmol/L Normal 136-145 [facility] ([place]) Comment on above: Performed By: #### C BC, MG, ADIFF, BMP, ANEU, GFR, LARON #### [place] [address] Urea nitrogen [Mass/Vol] 10.0 mg/dL Normal 8.0-22.0 [facility] ([place]) Comment on above: Performed By: #### C BC, MG, ADIFF, BMP, ANEU, GFR, LARON #### [place] [address] CBCon 02-15-2023 Erythrocyte distribution width (RBC) [Ratio] 14.0 % Normal 11.5-15.5 [facility] ([place]) Comment on above: Performed By: #### C BC, MG, ADIFF, BMP, ANEU, GFR, LARON #### [place] [address] Hematocrit (Bld) [Volume fraction] 31.1 % Low 34.0-46.0 [facility] ([place]) Comment on above: Performed By: #### C BC, MG, ADIFF, BMP, ANEU, GFR, LARON #### [place] [address] Hgb 10.3 G/dL Low 12.0-16.0 [facility] ([place]) Comment on above: Performed By: #### C BC, MG, ADIFF, BMP, ANEU, GFR, LARON #### [place] [address] MCH (RBC) [Entitic mass] 29.8 pg Normal 27.0-33.0 [facility] ([place]) Comment on above: Performed By: #### C BC, MG, ADIFF, BMP, ANEU, GFR, LARON #### [place] [address] MCHC 33.1 G/dL Normal 32.0-36.0 [facility] ([place]) Comment on above: Performed By: #### C BC, MG, ADIFF, BMP, ANEU, GFR, LARON #### [place] [address] MCV (RBC) [Entitic vol] 90.2 fL Normal 80.0-99.0 A [facility] ([place]) Comment on above: Performed By: #### C BC, MG, ADIFF, BMP, ANEU, GFR, LARON #### [place] [address] Platelet 271 10 3/mcL Normal 150-450 [facility] ([place]) Comment on above: Performed By: #### C BC, MG, ADIFF, BMP, ANEU, GFR, LARON #### [place] [address] Platelet mean volume (Bld) [Entitic vol] 8.1 fL Normal 6.6-10.5 [facility] ([place]) Comment on above: Performed By: #### C BC, MG, ADIFF, BMP, ANEU, GFR, LARON #### [place] [address] RBC 3.45 10 6/mcL Low 4.10-5.30 [facility] ([place]) Comment on above: Performed By: #### C BC, MG, ADIFF, BMP, ANEU, GFR, LARON #### [place] [address] WBC 6.9 10 3/mcL Normal 4.5-10.8 [facility] ([place]) Comment on above: Performed By: #### C BC, MG, ADIFF, BMP, ANEU, GFR, LARON #### [place] [address] LABORATORYOrdered By: SYSTEM SYSTEM on 02-15-2023 Basophils (Bld) [#/Vol] 0.0 103/mcL Normal 0.0 - 0.3 10^3/mcL AH Workflow SS Basophils/100 WBC (Bld) 0.5 % Normal 0.0 - 2.5 % AH Workflow SS Calcium [Mass/Vol] 8.4 mg/dL Low 8.7 - 10. 4 mg/dL ADM SS Chloride [Moles/Vol] 111 mmol/L High 98 - 11 0 mEq/L ADM SS CO2 [Moles/Vol] 29 mmol/L Normal 22 - 32 mEq/L ADM SS Creatinine [Mass/Vol] 0.57 mg/dL Normal 0.50 - 1.20 mg/dL ADM SS Electrolyte Balance 2.0 mEq/L Low 4.0 - 15 .0 mEq/L ADM SS Eosinophils (Bld) [#/Vol] 0.2 103/mcL Normal 0.0 - 0.7 10^3/mcL AH Workflow SS Eosinophils/100 WBC (Bld) 3.1 % Normal 0.0 - 6.0 % AH Workflow SS Erythrocyte distribution width (RBC) [Ratio] 14.0 % Normal 11.5 - 15.5 % AH Workflow SS GFR/1.73 sq M.predicted among blacks MDRD (S/P/Bld) [Vol rate/Area] ml/min/1.73sqm Invalid Interpretation Code [employer] Chemistry S Comment on above: Interpretive Data: GFR Population mean for , Non- Americans Ages 20-29 = 116 mL/min/1.73 sq.m. Ages 30-39 = 107 mL/min/1.73 sq.m. Ages 40-49 = 99 mL/min/1.73 sq.m. Ages 50-59 = 93 mL/min/1.73 sq.m. Ages 60-69 = 85 mL/min/1.73 sq.m. Ages 70+ = 75 mL/min/1.73 sq.m. Chronic Kidney Disease: Less than 60 mL/min/1.73 square meters End Stage Renal Disease: Less than 15 mL/min/1.73 square meters GFR/1.73 sq M.predicted among non-blacks MDRD (S/P/Bld) [Vol rate/Area] ml/min/1.73sqm Invalid Interpretation Code [employer] Chemistry S Comment on above: Interpretive Data: GFR Population mean for , Non- Americans Ages 20-29 = 116 mL/min/1.73 sq.m. Ages 30-39 = 107 mL/min/1.73 sq.m. Ages 40-49 = 99 mL/min/1.73 sq.m. Ages 50-59 = 93 mL/min/1.73 sq.m. Ages 60-69 = 85 mL/min/1.73 sq.m. Ages 70+ = 75 mL/min/1.73 sq.m. Chronic Kidney Disease: Less than 60 mL/min/1.73 square meters End Stage Renal Disease: Less than 15 mL/min/1.73 square meters Glucose [Mass/Vol] 87 mg/dL Normal 82 - 115 mg/dL ADM SS Hematocrit (Bld) [Volume fraction] 31.1 % Low 34.0 - 46.0 % AH Workflow SS Hemoglobin (Bld) [Mass/Vol] 10.3 G/dL Low 12.0 - 16.0 G/dL AH Workflow SS Lymphocytes (Bld) [#/Vol] 1.4 103/mcL Normal 0.9 - 4.3 10^3/mcL AH Workflow SS Lymphocytes/100 WBC (Bld) 19.7 % Low 20.0 - 40.0 % AH Workflow SS Magnesium [Mass/Vol] 1.6 mg/dL Normal 1.6 - 2 .4 mg/dL ADM SS MCH (RBC) [Entitic mass] 29.8 pg Normal 27.0 - 33.0 pg AH Workflow SS MCHC 33.1 G/dL Normal 32.0 - 36.0 G/dL AH Workflow SS MCV (RBC) [Entitic vol] 90.2 fL Normal 80.0 - 99.0 fL AH Workflow SS Monocytes (Bld) [#/Vol] 0.8 103/mcL Normal 0.1 - 1.4 10^3/mcL AH Workflow SS Monocytes/100 WBC (Bld) 11.1 % Normal 2.0 - 13.0 % AH Workflow SS Neutrophils (Bld) [#/Vol] 4.5 103/mcL Normal 2.3 - 8.1 10^3/mcL AH Workflow SS Neutrophils/100 WBC (Bld) 65.6 % Normal 50.0 - 75.0 % AH Workflow SS Platelet mean volume (Bld) [Entitic vol] 8.1 fL Normal 6.6 - 10.5 fL AH Workflow SS Platelets (Bld) [#/Vol] 271 103/mcL Normal 150 - 450 10^3/mcL AH Workflow SS Potassium [Moles/Vol] 3.6 mmol/L Normal 3.5 - 5.0 mEq/L AH ADM SS RBC (Bld) [#/Vol] 3.45 106/mcL Low 4.10 - 5.3 0 10^6/mcL AH Workflow SS Sodium [Moles/Vol] 142 mmol/L Normal 136 - 145 mEq/L AH ADM SS Urea nitrogen [Mass/Vol] 10.0 mg/dL Normal 8.0 - 22.0 mg/dL AH ADM SS Urea nitrogen/Creatinine [Mass ratio] 17.5 ratio Normal 10.0 - 22.0 ratio AH ADM SS WBC (Bld) [#/Vol] 6.9 103/mcL Normal 4.5 - 10.8 10^3/mcL AH Workflow SS MGon 02-15-2023 Magnesium [Mass/Vol] 1.6 mg/dL Normal 1.6-2.4 [facility] ([place]) Comment on above: Performed By: #### C BC, MG, ADIFF, BMP, ANEU, GFR, LARON #### [address] [address] No Panel Informationon 02-14 Culture Urine >100,000 cfu/ml Enterococcus faecalis ANGEL to follow [facility] .Auto Diffon 02-13-2023 Basophil, Absolute 0.0 10 3/mcL Normal 0.0-0.3 [facility] ([place]) Comment on above: Performed By: #### C BC, MG, ADIFF, BMP, ANEU, GFR, LARON #### [address] [address] Basophils/100 WBC (Bld) 0.3 % Normal 0.0-2.5 A [facility] ([place]) Comment on above: Performed By: #### C BC, MG, ADIFF, BMP, ANEU, GFR, LARON #### [address] [address] Eosinophil, Absolute 0.3 10 3/mcL Normal 0.0-0.7 Replaced by [facility] ([place]) Comment on above: Performed By: #### C BC, MG, ADIFF, BMP, ANEU, GFR, LARON #### [address] [address] Eosinophils/100 WBC (Bld) 4.0 % Normal 0.0-6.0 [facility] ([place]) Comment on above: Performed By: #### C BC, MG, ADIFF, BMP, ANEU, GFR, LARON #### [address] [address] Lymphocyte, Absolute 0.9 10 3/mcL Normal 0.9-4.3 Replaced by [facility] ([place]) Comment on above: Performed By: #### C BC, MG, ADIFF, BMP, ANEU, GFR, LARON #### [address] [address] Lymphocytes/100 WBC (Bld) 12.1 % Low 20.0-40.0 [facility] ([place]) Comment on above: Performed By: #### C BC, MG, ADIFF, BMP, ANEU, GFR, LARON #### [address] [address] Monocyte, Absolute 0.8 10 3/mcL Normal 0.1-1.4 [facility] ([place]) Comment on above: Performed By: #### C BC, MG, ADIFF, BMP, ANEU, GFR, LARON #### [address] [address] Monocytes/100 WBC (Bld) 11.4 % Normal 2.0-13.0 [facility] ([place]) Comment on above: Performed By: #### C BC, MG, ADIFF, BMP, ANEU, GFR, LARON #### [address] [address] Neutrophils/100 WBC (Bld) 72.2 % Normal 50.0-75.0 [facility] ([place]) Comment on above: Performed By: #### C BC, MG, ADIFF, BMP, ANEU, GFR, LARON #### [address] [address] .GFRon 02-13-2023 GFR >60 Normal [facility] ([place]) Comment on above: Result Comment: GFR Population mean for , Non- Americans Ages 20-29 = 116 mL/min/1.73 sq.m. Ages 30-39 = 107 mL/min/1.73 sq.m. Ages 40-49 = 99 mL/min/1.73 sq.m. Ages 50-59 = 93 mL/min/1.73 sq.m. Ages 60-69 = 85 mL/min/1.73 sq.m. Ages 70+ = 75 mL/min/1.73 sq.m. Chronic Kidney Disease: Less than 60 mL/min/1.73 square meters End Stage Renal Disease: Less than 15 mL/min/1.73 square meters Performed By: #### C BC, MG, ADIFF, BMP, ANEU, GFR, LARON #### [address] [address] GFR Non- >60 Normal [facility] ([place]) Comment on above: Result Comment: GFR Population mean for , Non- Americans Ages 20-29 = 116 mL/min/1.73 sq.m. Ages 30-39 = 107 mL/min/1.73 sq.m. Ages 40-49 = 99 mL/min/1.73 sq.m. Ages 50-59 = 93 mL/min/1.73 sq.m. Ages 60-69 = 85 mL/min/1.73 sq.m. Ages 70+ = 75 mL/min/1.73 sq.m. Chronic Kidney Disease: Less than 60 mL/min/1.73 square meters End Stage Renal Disease: Less than 15 mL/min/1.73 square meters Performed By: #### C BC, MG, ADIFF, BMP, ANEU, GFR, LARON #### [address] [address] .NEUABSon 02-13-2023 Neutrophil, Absolute 5.2 10 3/mcL Normal 2.3-8.1 Replaced by [facility] ([place] Comment on above: Performed By: #### C BC, MG, ADIFF, BMP, ANEU, GFR, LARON #### [address] [address] BMPon 02-13-2023 BUN/Creatinine Ratio 20.8 ratio Normal 10.0-22.0 [facility] ([place]) Comment on above: Performed By: #### C BC, MG, ADIFF, BMP, ANEU, GFR, LARON #### [address] [address] Calcium [Mass/Vol] 8.3 mg/dL Low 8.7-10.4 [facility] ([place]) Comment on above: Performed By: #### C BC, MG, ADIFF, BMP, ANEU, GFR, LARON #### [address] [address] Chloride [Moles/Vol] 108 mmol/L Normal 98-110 [facility] ([place]) Comment on above: Performed By: #### C BC, MG, ADIFF, BMP, ANEU, GFR, LARON #### [address] [address] CO2 [Moles/Vol] 25 mmol/L Normal 22-32 [facility] ([place]) Comment on above: Performed By: #### C BC, MG, ADIFF, BMP, ANEU, GFR, LARON #### [address] [address] Creatinine [Mass/Vol] 0.53 mg/dL Normal 0.50-1.20 [facility] ([place]) Comment on above: Performed By: #### C BC, MG, ADIFF, BMP, ANEU, GFR, LARON #### [address] [address] Electrolyte Balance 7.0 mEq/L Normal 4.0-15.0 Count includes the [facility] ([place]) Comment on above: Performed By: #### C BC, MG, ADIFF, BMP, ANEU, GFR, LARON #### [address] [address] Glucose [Mass/Vol] 96 mg/dL Normal 82-115 [facility] ([place]) Comment on above: Performed By: #### C BC, MG, ADIFF, BMP, ANEU, GFR, LARON #### [address] [address] Potassium [Moles/Vol] 3.4 mmol/L Low 3.5-5.0 [facility] ([place]) Comment on above: Performed By: #### C BC, MG, ADIFF, BMP, ANEU, GFR, LARON #### [place] [address] Sodium [Moles/Vol] 140 mmol/L Normal 136-145 [facility] ([place]) Comment on above: Performed By: #### C BC, MG, ADIFF, BMP, ANEU, GFR, LARON #### [place] [address] Urea nitrogen [Mass/Vol] 11.0 mg/dL Normal 8.0-22.0 [facility] ([place]) Comment on above: Performed By: #### C BC, MG, ADIFF, BMP, ANEU, GFR, LARON #### [place] [address] CBCon 02-13-2023 Erythrocyte distribution width (RBC) [Ratio] 14.2 % Normal 11.5-15.5 [facility] ([place]) Comment on above: Performed By: #### C BC, MG, ADIFF, BMP, ANEU, GFR, LARON #### [place] [address] Hematocrit (Bld) [Volume fraction] 29.4 % Low 34.0-46.0 [facility] ([place]) Comment on above: Performed By: #### C BC, MG, ADIFF, BMP, ANEU, GFR, LARON #### [place] [address] Hgb 9.9 G/dL Low 12.0-16.0 [facility] ([place]) Comment on above: Performed By: #### C BC, MG, ADIFF, BMP, ANEU, GFR, LARON #### [place] [address] MCH (RBC) [Entitic mass] 30.5 pg Normal 27.0-33.0 [facility] ([place]) Comment on above: Performed By: #### C BC, MG, ADIFF, BMP, ANEU, GFR, LARON #### [place] [id number] MCHC 33.6 G/dL Normal 32.0-36.0 [facility] ([place]) Comment on above: Performed By: #### C BC, MG, ADIFF, BMP, ANEU, GFR, LARON #### [place] [address] MCV (RBC) [Entitic vol] 90.6 fL Normal 80.0-99.0 [facility] ([place]) Comment on above: Performed By: #### C BC, MG, ADIFF, BMP, ANEU, GFR, LARON #### [place] [address] Platelet 221 10 3/mcL Normal 150-450 [facility] ([place]) Comment on above: Performed By: #### C BC, MG, ADIFF, BMP, ANEU, GFR, LARON #### [place] [address] Platelet mean volume (Bld) [Entitic vol] 7.6 fL Normal 6.6-10.5 [facility] ([place]) Comment on above: Performed By: #### C BC, MG, ADIFF, BMP, ANEU, GFR, LARON #### [place] [address] RBC 3.24 10 6/mcL Low 4.10-5.30 [facility] ([place]) Comment on above: Performed By: #### C BC, MG, ADIFF, BMP, ANEU, GFR, LARON #### [place] [address] WBC 7.2 10 3/mcL Normal 4.5-10.8 [facility] ([place]) Comment on above: Performed By: #### C BC, MG, ADIFF, BMP, ANEU, GFR, LARON #### [place] [address] LABORATORYOrdered By: SYSTEM SYSTEM on 02-13-2023 Basophils (Bld) [#/Vol] 0.0 103/mcL Normal 0.0 - 0.3 10^3/mcL AH Workflow SS Basophils/100 WBC (Bld) 0.3 % Normal 0.0 - 2.5 % AH Workflow SS Calcium [Mass/Vol] 8.3 mg/dL Low 8.7 - 10. 4 mg/dL ADM SS Chloride [Moles/Vol] 108 mmol/L Normal 98 - 11 0 mEq/L ADM SS CO2 [Moles/Vol] 25 mmol/L Normal 22 - 32 mEq/L ADM SS Creatinine [Mass/Vol] 0.53 mg/dL Normal 0.50 - 1.20 mg/dL ADM SS Electrolyte Balance 7.0 mEq/L Normal 4.0 - 15 .0 mEq/L ADM SS Eosinophils (Bld) [#/Vol] 0.3 103/mcL Normal 0.0 - 0.7 10^3/mcL Workflow SS Eosinophils/100 WBC (Bld) 4.0 % Normal 0.0 - 6.0 % Workflow SS Erythrocyte distribution width (RBC) [Ratio] 14.2 % Normal 11.5 - 15.5 % Workflow SS GFR/1.73 sq M.predicted among blacks MDRD (S/P/Bld) [Vol rate/Area] ml/min/1.73sqm Invalid Interpretation Code [employer] S Comment on above: Interpretive Data: GFR Population mean for , Non- Americans Ages 20-29 = 116 mL/min/1.73 sq.m. Ages 30-39 = 107 mL/min/1.73 sq.m. Ages 40-49 = 99 mL/min/1.73 sq.m. Ages 50-59 = 93 mL/min/1.73 sq.m. Ages 60-69 = 85 mL/min/1.73 sq.m. Ages 70+ = 75 mL/min/1.73 sq.m. Chronic Kidney Disease: Less than 60 mL/min/1.73 square meters End Stage Renal Disease: Less than 15 mL/min/1.73 square meters GFR/1.73 sq M.predicted among non-blacks MDRD (S/P/Bld) [Vol rate/Area] ml/min/1.73sqm Invalid Interpretation Code [facility] Chemistry S Comment on above: Interpretive Data: GFR Population mean for , Non- Americans Ages 20-29 = 116 mL/min/1.73 sq.m. Ages 30-39 = 107 mL/min/1.73 sq.m. Ages 40-49 = 99 mL/min/1.73 sq.m. Ages 50-59 = 93 mL/min/1.73 sq.m. Ages 60-69 = 85 mL/min/1.73 sq.m. Ages 70+ = 75 mL/min/1.73 sq.m. Chronic Kidney Disease: Less than 60 mL/min/1.73 square meters End Stage Renal Disease: Less than 15 mL/min/1.73 square meters Glucose [Mass/Vol] 96 mg/dL Normal 82 - 115 mg/dL AH ADM SS Hematocrit (Bld) [Volume fraction] 29.4 % Low 34.0 - 46.0 % AH Workflow SS Hemoglobin (Bld) [Mass/Vol] 9.9 G/dL Low 12.0 - 16.0 G/dL AH Workflow SS Lymphocytes (Bld) [#/Vol] 0.9 103/mcL Normal 0.9 - 4.3 10^3/mcL AH Workflow SS Lymphocytes/100 WBC (Bld) 12.1 % Low 20.0 - 40.0 % AH Workflow SS MCH (RBC) [Entitic mass] 30.5 pg Normal 27.0 - 33.0 pg AH Workflow SS MCHC 33.6 G/dL Normal 32.0 - 36.0 G/dL AH Workflow SS MCV (RBC) [Entitic vol] 90.6 fL Normal 80.0 - 99.0 fL AH Workflow SS Monocytes (Bld) [#/Vol] 0.8 103/mcL Normal 0.1 - 1.4 10^3/mcL AH Workflow SS Monocytes/100 WBC (Bld) 11.4 % Normal 2.0 - 13.0 % AH Workflow SS Neutrophils (Bld) [#/Vol] 5.2 103/mcL Normal 2.3 - 8.1 10^3/mcL AH Workflow SS Neutrophils/100 WBC (Bld) 72.2 % Normal 50.0 - 75.0 % AH Workflow SS Platelet mean volume (Bld) [Entitic vol] 7.6 fL Normal 6.6 - 10.5 fL AH Workflow SS Platelets (Bld) [#/Vol] 221 103/mcL Normal 150 - 450 10^3/mcL AH Workflow SS Potassium [Moles/Vol] 3.4 mmol/L Low 3.5 - 5.0 mEq/L AH ADM SS RBC (Bld) [#/Vol] 3.24 106/mcL Low 4.10 - 5.3 0 10^6/mcL AH Workflow SS Sodium [Moles/Vol] 140 mmol/L Normal 136 - 145 mEq/L AH ADM SS Urea nitrogen [Mass/Vol] 11.0 mg/dL Normal 8.0 - 22.0 mg/dL ADM SS Urea nitrogen/Creatinine [Mass ratio] 20.8 ratio Normal 10.0 - 22.0 ratio AH ADM SS WBC (Bld) [#/Vol] 7.2 103/mcL Normal 4.5 - 10.8 10^3/mcL Workflow SS .Auto Diffon 02-11-2023 Basophil, Absolute 0.0 10 3/mcL Normal 0.0-0.3 [facility] ([place]) Comment on above: Performed By: #### C BC, MG, ADIFF, BMP, ANEU, GFR, LARON #### [address] [address] Basophils/100 WBC (Bld) 0.5 % Normal 0.0-2.5 [facility] ([place]) Comment on above: Performed By: #### C BC, MG, ADIFF, BMP, ANEU, GFR, LARON #### [address] [address] Eosinophil, Absolute 0.4 10 3/mcL Normal 0.0-0.7 Replaced by [facility] ([place]) Comment on above: Performed By: #### C BC, MG, ADIFF, BMP, ANEU, GFR, LARON #### [address] [address] Eosinophils/100 WBC (Bld) 5.1 % Normal 0.0-6.0 [facility] ([place]) Comment on above: Performed By: #### C BC, MG, ADIFF, BMP, ANEU, GFR, LARON #### [address] [address] Lymphocyte, Absolute 1.6 10 3/mcL Normal 0.9-4.3 Replaced by [facility] ([place]) Comment on above: Performed By: #### C BC, MG, ADIFF, BMP, ANEU, GFR, LARON #### [address] [address] Lymphocytes/100 WBC (Bld) 18.9 % Low 20.0-40.0 [facility] ([place]) Comment on above: Performed By: #### C BC, MG, ADIFF, BMP, ANEU, GFR, LARON #### [address] [address] Monocyte, Absolute 0.9 10 3/mcL Normal 0.1-1.4 [facility] ([place]) Comment on above: Performed By: #### C BC, MG, ADIFF, BMP, ANEU, GFR, LARON #### [address] [address] Monocytes/100 WBC (Bld) 11.1 % Normal 2.0-13.0 [facility] ([place]) Comment on above: Performed By: #### C BC, MG, ADIFF, BMP, ANEU, GFR, LARON #### [address] [address] Neutrophils/100 WBC (Bld) 64.4 % Normal 50.0-75.0 [facility] ([place]) Comment on above: Performed By: #### C BC, MG, ADIFF, BMP, ANEU, GFR, LARON #### [address] [address] .GFRon 02-11-2023 GFR >60 Normal [facility] ([place]) Comment on above: Result Comment: GFR Population mean for , Non- Americans Ages 20-29 = 116 mL/min/1.73 sq.m. Ages 30-39 = 107 mL/min/1.73 sq.m. Ages 40-49 = 99 mL/min/1.73 sq.m. Ages 50-59 = 93 mL/min/1.73 sq.m. Ages 60-69 = 85 mL/min/1.73 sq.m. Ages 70+ = 75 mL/min/1.73 sq.m. Chronic Kidney Disease: Less than 60 mL/min/1.73 square meters End Stage Renal Disease: Less than 15 mL/min/1.73 square meters Performed By: #### C BC, MG, ADIFF, BMP, ANEU, GFR, LARON #### [address] [address] GFR Non- >60 Normal [facility] ([place]) Comment on above: Result Comment: GFR Population mean for , Non- Americans Ages 20-29 = 116 mL/min/1.73 sq.m. Ages 30-39 = 107 mL/min/1.73 sq.m. Ages 40-49 = 99 mL/min/1.73 sq.m. Ages 50-59 = 93 mL/min/1.73 sq.m. Ages 60-69 = 85 mL/min/1.73 sq.m. Ages 70+ = 75 mL/min/1.73 sq.m. Chronic Kidney Disease: Less than 60 mL/min/1.73 square meters End Stage Renal Disease: Less than 15 mL/min/1.73 square meters Performed By: #### C BC, MG, ADIFF, BMP, ANEU, GFR, LARON #### [address] [address] .NEUABSon 02-11-2023 Neutrophil, Absolute 5.4 10 3/mcL Normal 2.3-8.1 Replaced by [facility] ([place]) Comment on above: Performed By: #### C BC, MG, ADIFF, BMP, ANEU, GFR, LARON #### [place] [address] BMPon 02-11-2023 BUN/Creatinine Ratio 28.8 ratio High 10.0-22.0 [facility] ([place]) Comment on above: Performed By: #### C BC, MG, ADIFF, BMP, ANEU, GFR, LARON #### [address] [address] Calcium [Mass/Vol] 8.7 mg/dL Normal 8.7-10.4 [facility] ([place]) Comment on above: Performed By: #### C BC, MG, ADIFF, BMP, ANEU, GFR, LARON #### [address] [address] Chloride [Moles/Vol] 107 mmol/L Normal 98-110 [facility] ([place]) Comment on above: Performed By: #### C BC, MG, ADIFF, BMP, ANEU, GFR, LARON #### [address] [address] CO2 [Moles/Vol] 29 mmol/L Normal 22-32 [facility] ([place]) Comment on above: Performed By: #### C BC, MG, ADIFF, BMP, ANEU, GFR, LARON #### [address] [address] Creatinine [Mass/Vol] 0.80 mg/dL Normal 0.50-1.20 [facility] ([place]) Comment on above: Performed By: #### C BC, MG, ADIFF, BMP, ANEU, GFR, LARON #### [address] [address] Electrolyte Balance 5.0 mEq/L Normal 4.0-15.0 Count includes the [facility] ([place]) Comment on above: Performed By: #### C BC, MG, ADIFF, BMP, ANEU, GFR, LARON #### [address] [address] Glucose [Mass/Vol] 98 mg/dL Normal 82-115 [facility] ([place]) Comment on above: Performed By: #### C BC, MG, ADIFF, BMP, ANEU, GFR, LARON #### [address] [address] Potassium [Moles/Vol] 3.4 mmol/L Low 3.5-5.0 [facility] ([place]) Comment on above: Performed By: #### C BC, MG, ADIFF, BMP, ANEU, GFR, LARON #### [address] [address] Sodium [Moles/Vol] 141 mmol/L Normal 136-145 [facility] ([place]) Comment on above: Performed By: #### C BC, MG, ADIFF, BMP, ANEU, GFR, LARON #### [address] [address] Urea nitrogen [Mass/Vol] 23.0 mg/dL High 8.0-22.0 [facility] ([place]) Comment on above: Performed By: #### C BC, MG, ADIFF, BMP, ANEU, GFR, LARON #### [address] [address] CBCon 02-11-2023 Erythrocyte distribution width (RBC) [Ratio] 13.9 % Normal 11.5-15.5 [facility] ([place]) Comment on above: Performed By: #### C BC, MG, ADIFF, BMP, ANEU, GFR, LARON #### [place] [id number] Hematocrit (Bld) [Volume fraction] 28.6 % Low 34.0-46.0 [facility] ([place]) Comment on above: Performed By: #### C BC, MG, ADIFF, BMP, ANEU, GFR, LARON #### [place] [id number] Hgb 9.9 G/dL Low 12.0-16.0 [facility] ([place]) Comment on above: Performed By: #### C BC, MG, ADIFF, BMP, ANEU, GFR, LARON #### [place] [address] MCH (RBC) [Entitic mass] 31.2 pg Normal 27.0-33.0 [facility] ([place]) Comment on above: Performed By: #### C BC, MG, ADIFF, BMP, ANEU, GFR, LARON #### [place] [id number] MCHC 34.7 G/dL Normal 32.0-36.0 [facility] ([place]) Comment on above: Performed By: #### C BC, MG, ADIFF, BMP, ANEU, GFR, LARON #### [place] [address] MCV (RBC) [Entitic vol] 89.9 fL Normal 80.0-99.0 A [facility] ([place]) Comment on above: Performed By: #### C BC, MG, ADIFF, BMP, ANEU, GFR, LARON #### [place] [address] Platelet 201 10 3/mcL Normal 150-450 [facility] ([place]) Comment on above: Performed By: #### C BC, MG, ADIFF, BMP, ANEU, GFR, LARON #### [place] [address] Platelet mean volume (Bld) [Entitic vol] 7.9 fL Normal 6.6-10.5 [facility] ([place]) Comment on above: Performed By: #### C BC, MG, ADIFF, BMP, ANEU, GFR, LARON #### [place] [address] RBC 3.18 10 6/mcL Low 4.10-5.30 [facility] ([place]) Comment on above: Performed By: #### C BC, MG, ADIFF, BMP, ANEU, GFR, LARON #### [place] [address] WBC 8.4 10 3/mcL Normal 4.5-10.8 [facility] ([place]) Comment on above: Performed By: #### C BC, MG, ADIFF, BMP, ANEU, GFR, LARON #### [place] [address] CORTon 02-11-2023 Cortisol Level 17.4 mcg/dL Normal [facility] ([place]) Comment on above: Result Comment: Laron isol AM Reference Range 6.5-26.0 mcg/dL Cortisol PM Reference Range 3.5-15.0 mcg/dL Performed By: #### C BC, MG, ADIFF, BMP, ANEU, GFR, LARON #### [place] [address] LABORATORYOrdered By: SYSTEM SYSTEM on 02-11-2023 Basophils (Bld) [#/Vol] 0.0 103/mcL Normal 0.0 - 0.3 10^3/mcL AH Workflow SS Basophils/100 WBC (Bld) 0.5 % Normal 0.0 - 2.5 % AH Workflow SS Calcium [Mass/Vol] 8.7 mg/dL Normal 8.7 - 10. 4 mg/dL AH ADM SS Chloride [Moles/Vol] 107 mmol/L Normal 98 - 11 0 mEq/L AH ADM SS CO2 [Moles/Vol] 29 mmol/L Normal 22 - 32 mEq/L ADM SS Cortisol [Mass/Vol] 17.4 ug/dL Invalid Interpretation Code AH ADM SS Comment on above: Interpretive Data: C ortisol AM Reference Range 6.5-26.0 mcg/dL Cortisol PM Reference Range 3.5-15.0 mcg/dL Creatinine [Mass/Vol] 0.80 mg/dL Normal 0.50 - 1.20 mg/dL ADM SS Electrolyte Balance 5.0 mEq/L Normal 4.0 - 15 .0 mEq/L ADM SS Eosinophils (Bld) [#/Vol] 0.4 103/mcL Normal 0.0 - 0.7 10^3/mcL Workflow SS Eosinophils/100 WBC (Bld) 5.1 % Normal 0.0 - 6.0 % Workflow SS Erythrocyte distribution width (RBC) [Ratio] 13.9 % Normal 11.5 - 15.5 % Workflow SS GFR/1.73 sq M.predicted among blacks MDRD (S/P/Bld) [Vol rate/Area] ml/min/1.73sqm Invalid Interpretation Code [facility] Chemistry S Comment on above: Interpretive Data: GFR Population mean for , Non- Americans Ages 20-29 = 116 mL/min/1.73 sq.m. Ages 30-39 = 107 mL/min/1.73 sq.m. Ages 40-49 = 99 mL/min/1.73 sq.m. Ages 50-59 = 93 mL/min/1.73 sq.m. Ages 60-69 = 85 mL/min/1.73 sq.m. Ages 70+ = 75 mL/min/1.73 sq.m. Chronic Kidney Disease: Less than 60 mL/min/1.73 square meters End Stage Renal Disease: Less than 15 mL/min/1.73 square meters GFR/1.73 sq M.predicted among non-blacks MDRD (S/P/Bld) [Vol rate/Area] ml/min/1.73sqm Invalid Interpretation Code [facility] Chemistry S Comment on above: Interpretive Data: GFR Population mean for , Non- Americans Ages 20-29 = 116 mL/min/1.73 sq.m. Ages 30-39 = 107 mL/min/1.73 sq.m. Ages 40-49 = 99 mL/min/1.73 sq.m. Ages 50-59 = 93 mL/min/1.73 sq.m. Ages 60-69 = 85 mL/min/1.73 sq.m. Ages 70+ = 75 mL/min/1.73 sq.m. Chronic Kidney Disease: Less than 60 mL/min/1.73 square meters End Stage Renal Disease: Less than 15 mL/min/1.73 square meters Glucose [Mass/Vol] 98 mg/dL Normal 82 - 115 mg/dL ADM SS Hematocrit (Bld) [Volume fraction] 28.6 % Low 34.0 - 46.0 % AH Workflow SS Hemoglobin (Bld) [Mass/Vol] 9.9 G/dL Low 12.0 - 16.0 G/dL AH Workflow SS Lymphocytes (Bld) [#/Vol] 1.6 103/mcL Normal 0.9 - 4.3 10^3/mcL AH Workflow SS Lymphocytes/100 WBC (Bld) 18.9 % Low 20.0 - 40.0 % AH Workflow SS Magnesium [Mass/Vol] 1.8 mg/dL Normal 1.6 - 2 .4 mg/dL ADM SS MCH (RBC) [Entitic mass] 31.2 pg Normal 27.0 - 33.0 pg AH Workflow SS MCHC 34.7 G/dL Normal 32.0 - 36.0 G/dL AH Workflow SS MCV (RBC) [Entitic vol] 89.9 fL Normal 80.0 - 99.0 fL Workflow SS Monocytes (Bld) [#/Vol] 0.9 103/mcL Normal 0.1 - 1.4 10^3/mcL AH Workflow SS Monocytes/100 WBC (Bld) 11.1 % Normal 2.0 - 13.0 % AH Workflow SS Neutrophils (Bld) [#/Vol] 5.4 103/mcL Normal 2.3 - 8.1 10^3/mcL AH Workflow SS Neutrophils/100 WBC (Bld) 64.4 % Normal 50.0 - 75.0 % AH Workflow SS Platelet mean volume (Bld) [Entitic vol] 7.9 fL Normal 6.6 - 10.5 fL AH Workflow SS Platelets (Bld) [#/Vol] 201 103/mcL Normal 150 - 450 10^3/mcL AH Workflow SS Potassium [Moles/Vol] 3.4 mmol/L Low 3.5 - 5.0 mEq/L ADM SS RBC (Bld) [#/Vol] 3.18 106/mcL Low 4.10 - 5.3 0 10^6/mcL AH Workflow SS Sodium [Moles/Vol] 141 mmol/L Normal 136 - 145 mEq/L AH ADM SS Urea nitrogen [Mass/Vol] 23.0 mg/dL High 8.0 - 22.0 mg/dL AH ADM SS Urea nitrogen/Creatinine [Mass ratio] 28.8 ratio High 10.0 - 22.0 ratio AH ADM SS WBC (Bld) [#/Vol] 8.4 103/mcL Normal 4.5 - 10.8 10^3/mcL AH Workflow SS MGon 02-11-2023 Magnesium [Mass/Vol] 1.8 mg/dL Normal 1.6-2.4 [facility] ([place]) Comment on above: Performed By: #### C BC, MG, ADIFF, BMP, ANEU, GFR, LARON #### [address] [address] .Auto Diffon 02-09-2023 Basophil, Absolute 0.0 10 3/mcL Normal 0.0-0.3 [facility] ([place]) Comment on above: Performed By: #### B MP, CBC, ANEU, GFR, ADIFF #### [address] [address] Basophils/100 WBC (Bld) 0.5 % Normal 0.0-2.5 A [facility] ([place]) Comment on above: Performed By: #### B MP, CBC, ANEU, GFR, ADIFF #### [address] [address] Eosinophil, Absolute 0.4 10 3/mcL Normal 0.0-0.7 Replaced by [facility] ([place]) Comment on above: Performed By: #### B MP, CBC, ANEU, GFR, ADIFF #### [address] [address] Eosinophils/100 WBC (Bld) 3.7 % Normal 0.0-6.0 [facility] ([place]) Comment on above: Performed By: #### B MP, CBC, ANEU, GFR, ADIFF #### [address] [address] Lymphocyte, Absolute 1.2 10 3/mcL Normal 0.9-4.3 Replaced by [facility] ([place]) Comment on above: Performed By: #### B MP, CBC, ANEU, GFR, ADIFF #### [address] [address] Lymphocytes/100 WBC (Bld) 13.0 % Low 20.0-40.0 [facility] ([place]) Comment on above: Performed By: #### B MP, CBC, ANEU, GFR, ADIFF #### [address] [address] Monocyte, Absolute 1.0 10 3/mcL Normal 0.1-1.4 [facility] ([place]) Comment on above: Performed By: #### B MP, CBC, ANEU, GFR, ADIFF #### [address] [address] Monocytes/100 WBC (Bld) 10.7 % Normal 2.0-13.0 A [facility] ([place]) Comment on above: Performed By: #### B MP, CBC, ANEU, GFR, ADIFF #### [address] [address] Neutrophils/100 WBC (Bld) 72.1 % Normal 50.0-75.0 [facility] ([place]) Comment on above: Performed By: #### B MP, CBC, ANEU, GFR, ADIFF #### [address] [address] .GFRon 02-09-2023 GFR >60 Normal [facility] ([place]) Comment on above: Result Comment: GFR Population mean for , Non- Americans Ages 20-29 = 116 mL/min/1.73 sq.m. Ages 30-39 = 107 mL/min/1.73 sq.m. Ages 40-49 = 99 mL/min/1.73 sq.m. Ages 50-59 = 93 mL/min/1.73 sq.m. Ages 60-69 = 85 mL/min/1.73 sq.m. Ages 70+ = 75 mL/min/1.73 sq.m. Chronic Kidney Disease: Less than 60 mL/min/1.73 square meters End Stage Renal Disease: Less than 15 mL/min/1.73 square meters Performed By: #### C BC, MG, ADIFF, BMP, ANEU, GFR, LARON #### [address] [address] GFR Non- >60 Normal [facility] ([place]) Comment on above: Result Comment: GFR Population mean for , Non- Americans Ages 20-29 = 116 mL/min/1.73 sq.m. Ages 30-39 = 107 mL/min/1.73 sq.m. Ages 40-49 = 99 mL/min/1.73 sq.m. Ages 50-59 = 93 mL/min/1.73 sq.m. Ages 60-69 = 85 mL/min/1.73 sq.m. Ages 70+ = 75 mL/min/1.73 sq.m. Chronic Kidney Disease: Less than 60 mL/min/1.73 square meters End Stage Renal Disease: Less than 15 mL/min/1.73 square meters Performed By: #### C BC, MG, ADIFF, BMP, ANEU, GFR, LARON #### [place] [address] .NEUABSon 02-09-2023 Neutrophil, Absolute 6.9 10 3/mcL Normal 2.3-8.1 Replaced by [facility] ([place]) Comment on above: Performed By: #### C BC, MG, ADIFF, BMP, ANEU, GFR, LARON #### [place] [address] BMPon 02-09-2023 BUN/Creatinine Ratio 27.1 ratio High 10.0-22.0 [facility] ([place]) Comment on above: Order Comment: Routi ne for 0501 the morning of patient admission. Performed By: #### C BC, MG, ADIFF, BMP, ANEU, GFR, LARON #### [place] [address] Calcium [Mass/Vol] 9.0 mg/dL Normal 8.7-10.4 [facility] ([place]) Comment on above: Order Comment: Routi ne for 0501 the morning of patient admission. Performed By: #### C BC, MG, ADIFF, BMP, ANEU, GFR, LARON #### [address] [address] Chloride [Moles/Vol] 109 mmol/L Normal 98-110 [facility] ([place]) Comment on above: Order Comment: Routi ne for 0501 the morning of patient admission. Performed By: #### C BC, MG, ADIFF, BMP, ANEU, GFR, LARON #### [place] [id number] CO2 [Moles/Vol] 27 mmol/L Normal 22-32 [facility] ([place]) Comment on above: Order Comment: Routi ne for 0501 the morning of patient admission. Performed By: #### C BC, MG, ADIFF, BMP, ANEU, GFR, LARON #### [place] [id number] Creatinine [Mass/Vol] 0.70 mg/dL Normal 0.50-1.20 [facility] ([place]) Comment on above: Order Comment: Routi ne for 0501 the morning of patient admission. Performed By: #### C BC, MG, ADIFF, BMP, ANEU, GFR, LARON #### [place] [id number] Electrolyte Balance 5.0 mEq/L Normal 4.0-15.0 Count includes the [facility] ([place]) Comment on above: Order Comment: Routi ne for 0501 the morning of patient admission. Performed By: #### C BC, MG, ADIFF, BMP, ANEU, GFR, LARON #### [place] [id number] Glucose [Mass/Vol] 102 mg/dL Normal 82-115 [facility] ([place]) Comment on above: Order Comment: Routi ne for 0501 the morning of patient admission. Performed By: #### C BC, MG, ADIFF, BMP, ANEU, GFR, LARON #### [place] [id number] Potassium [Moles/Vol] 3.4 mmol/L Low 3.5-5.0 [facility] ([place]) Comment on above: Order Comment: Routi ne for 0501 the morning of patient admission. Performed By: #### C BC, MG, ADIFF, BMP, ANEU, GFR, LARON #### [place] [id number] Sodium [Moles/Vol] 141 mmol/L Normal 136-145 [facility] ([place]) Comment on above: Order Comment: Routi ne for 0501 the morning of patient admission. Performed By: #### C BC, MG, ADIFF, BMP, ANEU, GFR, LARON #### [place] [id number] Urea nitrogen [Mass/Vol] 19.0 mg/dL Normal 8.0-22.0 [facility] ([place]) Comment on above: Order Comment: Routi ne for 0501 the morning of patient admission. Performed By: #### C BC, MG, ADIFF, BMP, ANEU, GFR, LARON #### [place] [address] CBCon 02-09-2023 Erythrocyte distribution width (RBC) [Ratio] 14.0 % Normal 11.5-15.5 [facility] ([place]) Comment on above: Order Comment: Routi ne for 0501 the morning of patient admission. Performed By: #### B MP, CBC, ANEU, GFR, ADIFF #### [place] [address] Hematocrit (Bld) [Volume fraction] 28.5 % Low 34.0-46.0 [facility] ([place]) Comment on above: Order Comment: Routi ne for 0501 the morning of patient admission. Performed By: #### B MP, CBC, ANEU, GFR, ADIFF #### [place] [id number] Hgb 9.6 G/dL Low 12.0-16.0 [facility] ([place]) Comment on above: Order Comment: Routi ne for 0501 the morning of patient admission. Performed By: #### B MP, CBC, ANEU, GFR, ADIFF #### [place] [id number] MCH (RBC) [Entitic mass] 30.4 pg Normal 27.0-33.0 [facility] ([place]) Comment on above: Order Comment: Routi ne for 0501 the morning of patient admission. Performed By: #### B MP, CBC, ANEU, GFR, ADIFF #### [place] [address] MCHC 33.8 G/dL Normal 32.0-36.0 [facility] ([place]) Comment on above: Order Comment: Routi ne for 0501 the morning of patient admission. Performed By: #### B MP, CBC, ANEU, GFR, ADIFF #### [place] [address] MCV (RBC) [Entitic vol] 89.7 fL Normal 80.0-99.0 A [facility] ([place]) Comment on above: Order Comment: Routi ne for 0501 the morning of patient admission. Performed By: #### B MP, CBC, ANEU, GFR, ADIFF #### [place] [address] Platelet 186 10 3/mcL Normal 150-450 [facility] ([place]) Comment on above: Order Comment: Routi ne for 0501 the morning of patient admission. Performed By: #### B MP, CBC, ANEU, GFR, ADIFF #### [place] [address] Platelet mean volume (Bld) [Entitic vol] 8.0 fL Normal 6.6-10.5 [facility] ([place]) Comment on above: Order Comment: Routi ne for 0501 the morning of patient admission. Performed By: #### B MP, CBC, ANEU, GFR, ADIFF #### [place] [address] RBC 3.18 10 6/mcL Low 4.10-5.30 [facility] ([place]) Comment on above: Order Comment: Routi ne for 0501 the morning of patient admission. Performed By: #### B MP, CBC, ANEU, GFR, ADIFF #### [place] [address] WBC 9.5 10 3/mcL Normal 4.5-10.8 [facility] ([place]) Comment on above: Order Comment: Routi ne for 0501 the morning of patient admission. Performed By: #### B MP, CBC, ANEU, GFR, ADIFF #### [place] [address] CT THORAX W/ CONTRASTon CT THORAX W/ CONTRAST ORIGINAL EXAMINATION: CT CHEST WITH CONTRAST02/08/2023 10:07 pm TECHNIQUE Multiple-row detector helical CT examination of the thorax with IV contrast. Axial, sagittal, and coronal reconstructed images. This exam was performed according to our departmental dose optimization program, and includes the following measures where applicable: automated exposure control, adjustment of the mAs and/or kVp according to patient size and/or exam, and an iterative reconstruction algorithm. HISTORY: ORDERING SYSTEM PROVIDED HISTORY: Reason for Exam: Fall, vertigo, headache, weakness COMPARISON Same day chest x-ray and cervical spine CT FINDINGS: The main airways are patent. No acute pulmonary parenchymal process. Dependent atelectasis within the lung bases. 3 mm nodule right upper lobe image 20. No pleural effusion or pneumothorax. The heart is normal in size without pericardial effusion. No supraclavicular, mediastinal, or axillary lymphadenopathy. Mild atherosclerotic disease of the aorta and branching vessels. Great vessels are normal in caliber. No thyroid nodule. No acute process of the chest wall or osseous structures. Mild multilevel degenerative changes of the spine. Limited abdominal images are noncontributory. IMPRESSION: 1. No acute intrathoracic pathology. 2. 3 mm nodule right upper lobe follow-up CT in 6 months if this patient is high risk or is a history of smoking. Preliminary Report was Dictated by a Resident I have personally reviewed all of the images of this examination and agree with the resident findings and interpretation. Interpreted by: Hank Brooks MD Preliminary Report By: Deon Davis Electronically signed By Hank Brooks MD Dictated Date: 02/08/2023 10:08:04 PM Prelim Date: 02/08/2023 10:17:28 PM Sign Date: 02/08/2023 10:26:14 PM Ordering Provider: [facility] ([place]) LABORATORYOrdered By: Keeley Hester on 02-09-2023 Appearance (U) Clear (02/09/23 4:25 PM) Normal Clear AH Auto Urine SS Bilirubin Ql (U) Negative (02/09/23 4:25 PM) Normal Neg-Trace AH Auto Urine SS Color (U) Yellow (02/09/23 4:25 PM) Normal AH Auto Urine SS Glucose Test strip (U) [Mass/Vol] Negative Normal Negative AH Auto Urine SS Hemoglobin Auto test strip (U) [Mass/Vol] Trace (02/09/23 4:25 PM) Normal Neg-Trace AH Auto Urine SS Ketones Ql (U) 15 mg/dL Invalid Interpretation Code Neg-Trace AH Auto Urine SS UA Leuk Est Moderate *ABN* (02/09/23 4:25 PM) Invalid Interpretation Code Negative AH Auto Urine SS UA Nitrite Negative (02/09/23 4:25 PM) Normal Negative AH Auto Urine SS UA pH 7.0 (02/09/23 4:25 PM) Normal 5.0 - 8.0 AH Auto Urine SS UA Protein Negative Normal Negative AH Auto Urine SS UA Spec Grav 1.025 (02/09/23 4:25 PM) Normal 1.006-1.029 AH Auto Urine SS UA Specimen Type Not Given (02/09/23 4:25 PM) Normal AH Auto Urine SS UA Urobilinogen 1.0 E.U./dL Normal 0.2-1.0 AH Auto Urine SS LABORATORYOrdered By: Susan Longo on 02-09-2023 Bacteria LM.HPF (Urine sed) [#/Area] 1 /[HPF] Invalid Interpretation Code Negative AH Auto Urine SS UA RBC 10-20 /HPF Invalid Interpretation Code 0-2 AH Auto Urine SS UA Squam Epithelial 5-10 /HPF Normal 0-20 AH Au to Urine SS WBC LM.HPF (Urine sed) [#/Area] 3-5 /HPF Normal 0-5 AH Auto Urine SS UAon 02-09-2023 Color (U) Yellow Normal [facility] ([place]) Comment on above: Performed By: #### C BC, MG, ADIFF, BMP, ANEU, GFR, LARON #### [address] [address] Glucose (U) [Mass/Vol] Negative Normal Negative Replaced by [facility] [place] ([place]) Comment on above: Performed By: #### C BC, MG, ADIFF, BMP, ANEU, GFR, LARON #### [address] [address] Ketones Ql (U) 15 mg/dL Abnormal Neg-Trace [facility] ([place]) Comment on above: Performed By: #### C BC, MG, ADIFF, BMP, ANEU, GFR, LARON #### [address] [address] UA Appear Clear Normal Clear [facility] ([place]) Comment on above: Performed By: #### C BC, MG, ADIFF, BMP, ANEU, GFR, LARON #### [address] [address] UA Blood Trace Normal Neg-Trace [facility] ([place]) Comment on above: Performed By: #### C BC, MG, ADIFF, BMP, ANEU, GFR, LARON #### [place] [address] UA Leuk Est Moderate Abnormal Negative [facility] ([place]) Comment on above: Performed By: #### C BC, MG, ADIFF, BMP, ANEU, GFR, LARON #### [place] [address] UA Nitrite Negative Normal Negative [facility] ([place]) Comment on above: Performed By: #### C BC, MG, ADIFF, BMP, ANEU, GFR, LARON #### [place] [address] UA pH 7.0 Normal 5.0 - 8.0 [facility] ([place]) Comment on above: Performed By: #### C BC, MG, ADIFF, BMP, ANEU, GFR, LARON #### [place] [address] UA Protein Negative Normal Negative [facility] ([place]) Comment on above: Performed By: #### C BC, MG, ADIFF, BMP, ANEU, GFR, LARON #### [place] [id number] UA Spec Grav 1.025 Normal 1.006-1.029 [facility] ([place]) Comment on above: Performed By: #### C BC, MG, ADIFF, BMP, ANEU, GFR, LARON #### [place] [address] UA Specimen Type Not Given Normal [facility] ([place]) Comment on above: Performed By: #### C BC, MG, ADIFF, BMP, ANEU, GFR, LARON #### [address] [address] UA Urobilinogen 1.0 E.U./dL Normal 0.2-1.0 [facility] ([place]) Comment on above: Performed By: #### C BC, MG, ADIFF, BMP, ANEU, GFR, LARON #### [place] [address] Urobilinogen (U) [Mass/Vol] Negative Normal Neg-Trace [facility] ([place]) Comment on above: Performed By: #### C BC, MG, ADIFF, BMP, ANEU, GFR, LARON #### [address] [address] UAMICon 02-09-2023 UA Bacteria 1+ /hpf Abnormal Negative [facility] ([place]) Comment on above: Performed By: #### C BC, MG, ADIFF, BMP, ANEU, GFR, LARON #### [place] [address] UA RBC 10-20 Abnormal 0-2 [facility] ([place]) Comment on above: Performed By: #### C BC, MG, ADIFF, BMP, ANEU, GFR, LARON #### [address] [address] UA Squam Epithelial 5-10 Normal 0-20 Count includes the [facility] ([place]) Comment on above: Performed By: #### C BC, MG, ADIFF, BMP, ANEU, GFR, LARON #### [place] [address] UA WBC 3-5 Normal 0-5 [facility] ([place]) Comment on above: Performed By: #### C BC, MG, ADIFF, BMP, ANEU, GFR, LARON #### [address] [address] [place] 02-08-2023 Ethanol Level <10.0 Normal [facility] ([place]) Comment on above: Performed By: #### A #### [facility] [address] [place] [address] C-REACTIVE PROTEINon 024 CRP 3.46 mg/dl High 0.00 - 0.90 [facility] Comment on above: Performed By: #### 2 03967 #### [facility],[address] [place] [address] CBC + DIFFon 02-08-2023 Baso # 0.00 x10EE3/UL Normal 0.00 - 0.10 [facility] Comment on above: Performed By: #### 2 42107 #### [facility],[address] [place], [place] [phone] Basophils/100 WBC (Bld) 0.3 % Normal 0.0 - 2.0 [facility] Comment on above: Performed By: #### 2 65721 #### [facility],[address] [place] [address] CBC + DIFF Normal [facility] Comment on above: Result Comment: CBC- COMPLETE BLOOD COUNT Performed By: #### 2 22252 #### [facility],[address] [place] [address] EO # 0.20 x10EE3/UL Normal 0.00 - 0.50 [facility] Comment on above: Performed By: #### 2 45771 #### [facility],[address] [place] [address] Eosinophils/100 WBC (Bld) 2.5 % Normal 0.0 - 7.0 [facility] Comment on above: Performed By: #### 2 05029 #### [facility],[address] [place] [address] Erythrocyte distribution width (RBC) [Ratio] 14.3 % Normal 12.0 - 15.6 [facility] Comment on above: Performed By: #### 2 81673 #### [facility],[address],[place] [address] Hematocrit (Bld) [Volume fraction] 31.3 % Low 34.0 - 46.0 [facility] Comment on above: Performed By: #### 2 80064 #### [facility],[address] [place] [address] Hemoglobin (Bld) [Mass/Vol] 10.1 g/dL Low 12.0 - 16.0 [facility] Comment on above: Performed By: #### 2 48168 #### [facility],[address] [place], [place] [id number] Lymph # 0.80 x10EE3/UL Normal 0.80 - 2.80 [facility] Comment on above: Performed By: #### 2 99617 #### [facility],[address] [place] [address] Lymphocytes/100 WBC (Bld) 9.1 % Low 20.0 - 45.0 [facility] Comment on above: Performed By: #### 2 41744 #### [facility],[address] [place] [address] MANUAL DIFF N/A Normal [facility] Comment on above: Performed By: #### 2 73208 #### [facility],[address] [place] [address] MCH (RBC) [Entitic mass] 30 pg Normal 27 - 33 [facility] Comment on above: Performed By: #### 2 34751 #### [facility],[address] [place] [address] MCHC 32 X10 3 Normal 32 - 36 [facility] Comment on above: Performed By: #### 2 17795 #### [facility],[address] [place] [address] MCV (RBC) [Entitic vol] 91 fL Normal 80 - 99 [facility] Comment on above: Performed By: #### 2 39940 #### [facility],[address],[place] [address] [place] # 0.80 x10EE3/UL Normal 0.20 - 1.00 [facility] Comment on above: Performed By: #### 2 29677 #### [facility],[address] [place] [address] MONOS % 8.9 % Normal 0.0 - 10.0 [facility] Comment on above: Performed By: #### 2 45423 #### [facility],[address] [place] [address] Morphology Andre (Bld) [Interp] N/A Normal [facility] Comment on above: Result Comment: {CD] Performed By: #### 2 73181 #### [facility],[address] [place] [address] Neut # 7.40 x10EE3/UL High 1.50 - 7.10 [facility] Comment on above: Performed By: #### 2 74242 #### [facility],[address] [place] [address] Neutrophils/100 WBC (Bld) 79.2 % High 46.0 - 76.0 [facility] Comment on above: Performed By: #### 2 55593 #### [facility],[address] [place] [address] PLATELET 224 x10EE3/UL Normal 150 - 450 [facility] Comment on above: Performed By: #### 2 27910 #### [facility],[address] [place] [address] Platelet mean volume (Bld) [Entitic vol] 8.2 fL Normal 6.6 - 10.5 [facility] Comment on above: Result Comment: AUTO MATED DIFFERENTIAL Performed By: #### 2 36387 #### [facility],[address] [place] [address] RBC 3.43 x 10EE6/UL Low 4.10 - 5.30 [facility] Comment on above: Performed By: #### 2 44846 #### [facility],[address] [place] [address] WBC 9.3 x 10EE3/UL Normal 4.5 - 10.8 [facility] Comment on above: Performed By: #### 2 32506 #### [facility],[address] [place] [address] CMP with eGFRon 02-08-2023 AGE 77 years Normal [facility] Comment on above: Performed By: #### 2 51719 #### [facility],[address] [place] [address] Albumin [Mass/Vol] 3.3 g/dL Low 3.4 - 5.0 [facility] Comment on above: Performed By: #### 2 18635 #### [facility],[address] [place] [address] Albumin/Globulin [Mass ratio] 0.8 {ratio} Low 0.9 - 1.6 [facility] Comment on above: Performed By: #### 2 58705 #### [facility],[address] [place] [address] ALK PHOS 85 U/L Normal 46 - 116 [facility] Comment on above: Performed By: #### 2 17479 #### [facility],[address] [place] [address] ALT [Catalytic activity/Vol] 8 U/L Low 14 - 59 [facility] Comment on above: Performed By: #### 2 51982 #### [facility],[address] [place] [address] Anion gap [Moles/Vol] 13 mmol/L Normal 10 - 20 [facility] Comment on above: Performed By: #### 2 48541 #### [facility],[address] [place] [address] AST [Catalytic activity/Vol] 26 U/L Normal 13 - 39 [facility] Comment on above: Performed By: #### 2 22067 #### [facility],[address] [place] [address]851 B/C RATIO 26 ratio Normal 0 - 30 [facility] Comment on above: Performed By: #### 2 50575 #### [facility],[address] [place] [address] Bilirubin [Mass/Vol] 1.0 mg/dL Normal 0.2 - 1.0 [facility] Comment on above: Performed By: #### 2 99416 #### [facility],[address] [place] [address] Calcium [Mass/Vol] 9.5 mg/dL Normal 8.5 - 10.1 [facility] Comment on above: Performed By: #### 2 29792 #### [facility],[address] [place] [address] Chloride [Moles/Vol] 103 mmol/L Normal 98 - 107 [facility] Comment on above: Performed By: #### 2 89558 #### [facility],[address] [place] [address] CMP with eGFR Normal [facility] Comment on above: Result Comment: COMP REHENSIVE METABOLIC PANEL Performed By: #### 2 51359 #### [facility],[address] [place] [address]674 CO2 [Moles/Vol] 28.9 mmol/L Normal 21.0 - 32.0 [facility] Comment on above: Performed By: #### 2 75416 #### [facility],[address] [place] [address] Creatinine [Mass/Vol] 1.02 mg/dL Normal 0.55 - 1.02 [facility] Comment on above: Performed By: #### 2 06603 #### [facility],[address] [place] [address] 13839 eGFR 53 ML/MINUTE Low 60 - 999 [facility] Comment on above: Performed By: #### 2 94601 #### [facility],[address] [place] [address] GFR/1.73 sq M.predicted among non-blacks MDRD (S/P/Bld) [Vol rate/Area] mL/min/{1.73_m2} Normal 60 - 999 [facility] Comment on above: Result Comment: ACCO RDING TO THE NATIONAL KIDNEY DISEASE EDUCATION PROGRAM(NKDE), A NORMAL eGFR IS A VALUE GREATER THAN OR EQUAL TO 60 ML/MIN/1.73 SQ METERS. CHRONIC KIDNEY DISEASE: <60mL/MIN/1.73 SQ METERS KIDNEY FAILURE: <15mL/MIN/1.73 SQ METERS THIS TEST SHOULD ONLY BE USED FOR PATIENTS 18 YEARS OF AGE AND OLDER. Performed By: #### 2 75918 #### [facility],[address] [place] [address] Globulin (S) [Mass/Vol] 4.1 g/dL High 1.5 - 3.8 [facility] Comment on above: Performed By: #### 2 99266 #### [facility],[address] [place] [address]85 Glucose [Mass/Vol] 95 mg/dL Normal 74 - 106 [facility] Comment on above: Performed By: #### 2 95459 #### [facility],[address] [place] [address] 84069 Potassium [Moles/Vol] 3.8 mmol/L Normal 3.5 - 5.1 [facility] Comment on above: Performed By: #### 2 15797 #### [facility],[address] [place] [address] Protein [Mass/Vol] 7.4 g/dL Normal 6.4 - 8.2 [facility] Comment on above: Performed By: #### 2 61775 #### [facility],[address] [place] [address] 55368 Sodium [Moles/Vol] 141 mmol/L Normal 136 - 145 [facility] Comment on above: Performed By: #### 2 92296 #### [facility],[address] [place] [address] 74589 Urea nitrogen [Mass/Vol] 27 mg/dL High 7 - 18 [facility] Comment on above: Performed By: #### 2 53009 #### [facility],[address] [place] [address]96 CORONAVIRUS (SARS) ANTIGEN T ESTon 02-08-2023 EXTERNAL QC DONE? YES Normal [facility] Comment on above: Performed By: #### 2 17059 ####[facility],[address] [place] [address] INTERNAL CONTROL PASS Normal [facility] Comment on above: Performed By: #### 2 60896 ####[facility],[address] [place] [address] 81993 SARS ANTIGEN Negative Normal NORMAL: NEGATIVE [facility] Comment on above: Performed By: #### 2 48256 ####[facility],[address] [place] [address] 26849 SEND TO ? NO Normal [facility] Comment on above: Result Comment: SARS -CoV-2 THIS TEST IS BEING USED UNDER THE FDA EUA PROCEDURE. THIS ASSAY HAS BEEN VALIDATED AT [facility] FOR USE WITH NASAL AND NASOPHARYNGEAL SWAB SPECIMENS. INTERPRETIVE DATA TEST RESULTS SHOULD ALWAYS BE CONSIDERED IN THE CONTEXT OF CLINICAL OBSERVATIONS AND EPIDEMIOLOGICAL DATA IN MAKING FINAL DIAGNOSIS AND PATIENT MANAGEMENT DECISIONS. PATIENT MANAGEMENT SHOULD FOLLOW CURRENT CDC GUIDELINES. THE KENNY SARS ANTIGEN DON DOES NOT DIFFERENTIATE BETWEEN SARS-CoV & SARS-CoV-2. A POSITIVE TEST RESULT INDICATES THE PRESENCE OF SARS-CoV-2 NUCLEOCAPSID PROTEIN ANTIGEN, AND THE PATIENT IS INFECTED WITH THE VIRUS AND PRESUMED TO BE CONTAGIOUS. A NEGATIVE TEST RESULT FOR THIS TEST MEANS THAT SARS-CoV-2 NUCLEOCAPSID PROTEIN ANTIGEN WAS NOT PRESENT IN THE SPECIMEN ABOVE THE LIMIT OF DETECTION. HOWEVER, A NEGATIVE RESULT DOES NOT RULE OUT COVID-19 AND SHOULD NOT BE USED THE SOLE BASIS FOR TREATMENT OR PATIENT MANAGEMENT DECISIONS. A NEGATIVE RESULT DOES NOT EXCLUDE THE POSSIBILITY OF COVID-19. NEGATIVE RESULTS, FROM PATIENTS WITH SYMPTOM ONSET BEYOND FIVE DAYS, SHOULD BE TREATED PRESUMPTIVE AND CONFIRMATION WITH A MOLECULAR ASSAY, IF NECESSARY, FOR PATIENT MANAGEMENT, MAY BE PERFORMED. WHEN DIAGNOSTIC TESTING IS NEGATIVE, THE POSSIBLILTY OF A FALSE NEGATIVE RESULT SHOULD BE CONSIDERED IN THE CONTEXT OF A PATIENT'S RECENT EXPOSURES AND THE PRESENCE OF CLINICAL SIGNS AND SYMPTOMS CONSISTENT WITH COVID-19. THE POSSIBILITY OF A FALSE NEGATIVE RESULT SHOULD ESPECIALLY BE CONSIDERED IF THE PATIENT'S RECENT EXPOSURES OR CLINICAL PRESENTATION INDICATE THAT COVID-19 IS LIKELY, AND DIAGNOSTIC TESTS FOR OTHER CAUSES OF ILLNESS (e.g., OTHER RESPIRATORY ILLNESS) ARE NEGATIVE. IF COVID-19 IS STILL SUSPECTED BASED ON EXPOSURE HISTORY TOGETHER WITH OTHER CLINICAL FINDINGS, RE-TESTING SHOULD BE CONSIDERED BY HEALTHCARE PROVIDERS IN CONSULTATION WITH PUBLIC HEALTH AUTHORITIES. Performed By: #### 2 68219 ####[facility],[address] [place] [address] CT BRAIN W/O CONTRASTon CT BRAIN W/O CONTRAST [place] [address] Patient: ROSARIO MCNALLY Phone#: : [phone] Age: 77 Gender: F Pt. Type: ER Account: [id number] Location: [facility] Ordering: GREY CONNOR Exam Date: 02/08/2023/13:38 Family Phys: CHICO COLLIER Charge Code: 950634 Physician: [place] Order #: [id number] Dose#: 57.50 mGy PROCEDURE: CT BRAIN WITHOUT CONTRAST COMPARISON: [facility], CT, BRAIN W/O CON, 06/10/2022, 21:04. INDICATIONS: Fall. TECHNIQUE: CT images were obtained without contrast material. All CT scans at this facility use dose modulation, iterative reconstruction, and/or weight based dosing when appropriate to reduce radiation dose to as low as reasonably achievable. IV CONTRAST: No IV contrast used,ml TOTAL DOSE: 57.50 CTDIvol(mGy) FINDINGS: CEREBRUM: Subarachnoid hemorrhage at the right occipital lobe. No mass effect or midline shift. Global atrophy. CEREBELLUM: No edema, hemorrhage, mass. Global atrophy. BRAINSTEM: No edema, hemorrhage, mass, or inappropriate atrophy. CSF SPACES: Ventricles, cisterns, and sulci are proportionate to the degree of atrophy and symmetric in size and configuration. No hydrocephalus or mass. SKULL: No mass or other significant visible lesion. SINUSES: Limited views demonstrate no significant mucosal thickening or fluid. ORBITS: Left a[place] ocular lenses absent. OTHER: Atherosclerotic calcifications of the intracranial arteries. CONCLUSION: 1. Right occipital subarachnoid hemorrhage. This finding was communicated by telephone to Dr. Grey Connor at the dictation time shown below. 2. Global atrophy and atherosclerosis Dictated by: Adilene Bui MD on 02/08/2023 at 13:50 Approved by: Adilene Bui MD on 02/08/2023 at 13:59 Normal [facility] CT SPINE CERVICAL W/O CONTRA STon 02-08-2023 CT SPINE CERVICAL W/O CONTRAST ORIGINAL EXAMINATION: CT OF THE CERVICAL SPINE WITHOUT CONTRAST02/08/2023 4:[address] of the cervical spine was performed without the administration of intravenous contrast. Multiplanar reformatted images are provided for review. Automated exposure control, iterative reconstruction, and/or weight based adjustment of the mA/kV was utilized to reduce the radiation dose to as low as reasonably achievable. RADIATION DOSE REDUCTION: This exam was performed according to the departmental dose-optimization program which includes automated exposure control, adjustment of the mA and/or kV according to patient size and/or use of iterative reconstruction technique. COMPARISON: Same day CT brain (images only, no report available at time of dictation) HISTORY: ORDERING SYSTEM PROVIDED HISTORY: Reason for Exam: Fall, SAH, pt states fall yesterday, denies neck pain Fall, SAH FINDINGS: Vertebral body heights are well maintained. There is straightening of the normal cervical lordosis, likely positional or related to muscle spasm. Slight grade 1 anterolisthesis of C3 on C4. Disc height loss is present at all levels. Mild to moderate multilevel osteophytosis. No acute fracture. C6 vertebral body hemangioma. There is no significant osseous narrowing of the spinal canal or foramina. Craniocervical junction is maintained. Prevertebral soft tissues are unremarkable. No thyroid nodule. Incompletely imaged superior aspect of the aortic arch within the left upper lobe. IMPRESSION: No acute cervical spine fracture. Preliminary Report was Dictated by a Resident I have personally reviewed all of the images of this examination and agree with the resident findings and interpretation. Interpreted by: Hank Brooks MD Preliminary Report By: Deon Davis Electronically signed By Hank Brooks MD Dictated Date: 02/08/2023 5:30:15 PM Prelim Date: 02/08/2023 6:12:02 PM Sign Date: 02/08/2023 6:55:16 PM Ordering Provider: [facility] ([place]) LABORATORYOrdered By: SYSTEM SYSTEM on 02-08-2023 Ethanol [Mass/Vol] mg/dL Invalid Interpretation Code AH ADM SS LIPASEon 02-08-2023 Lipase [Catalytic activity/Vol] 20.0 U/L Normal 15.0 - 78.0 [facility] Comment on above: Result Comment: *PLE ASE NOTE THAT RANGES FOR LIPASE HAVE CHANGED OF 02/04/23 DUE TO AN ASSAY UPDATE BY THE COAT FINISHER.THE NEW ASSAY RANGE IS 6-250 U/L, WITH A REFERENCE RANGE OF 16-77 U/L. Performed By: #### 2 [id number] #### [place] [id number] TROPONIN I, HIGH SENSITIVITY on 02-08-2023 HS TROPONIN 13.2 pg/mL Normal 0.0 - 51.4 [facility] Comment on above: Performed By: #### 2 30176 #### [facility],[address] [place] [address] 80918 TSHon 02-08-2023 TSH Qn 1.80 m[IU]/L Normal 0.35 - 3.74 [facility] Comment on above: Performed By: #### 2 81641 #### [facility],[address] [place] [address] 77644 URINALYSISon 02-08-2023 Amorphous NONE Normal [facility] Comment on above: Performed By: #### 2 91589 ####[facility],[address] [place] [address] 44359 Bacteria 1+ Normal [facility] Comment on above: Performed By: #### 2 08656 ####[facility],[address] [place] [address] 33519 Bilirubin Ql (U) Negative Normal NORMAL: NEGATIVE [facility] Comment on above: Performed By: #### 2 74823 ####[facility],[address] [place] [address] 78253 Casts NONE Normal [facility] Comment on above: Performed By: #### 2 97214 ####[facility],[address] [place], [place] [phone] Clarity (U) clear Normal NORMAL: CLEAR [facility] Comment on above: Performed By: #### 2 12529 ####[facility],[address] [place], [place] [phone] Color (U) keeley Normal NORMAL: YELLOW [facility] Comment on above: Performed By: #### 2 91320 ####[facility],[address] [place], [place] [phone] Crystals LM Nom (Urine sed) NONE Normal [facility] Comment on above: Performed By: #### 2 85998 ####[facility],[address] [place], [place] [phone] Epi Cells MODERATE Normal [facility] Comment on above: Performed By: #### 2 [id number] ####[facility],[address] [place] [address]32 Glucose Ql (U) NORM Normal NORMAL: NORMAL [facility] Comment on above: Performed By: #### 2 23283 ####[facility],[address] [place] [address] 13585 Hemoglobin Ql (U) 50 Abnormal NORMAL: NEGATIVE [facility] Comment on above: Performed By: #### 2 36956 ####[facility],[address] [place] [address] 73106 Ketone 5 Abnormal NORMAL: NEGATIVE [facility] Comment on above: Performed By: #### 2 04054 ####[facility],[address] [place] [address] 82143 Leukocytes 25 Abnormal NORMAL: NEGATIVE [facility] Comment on above: Performed By: #### 2 93336 ####[facility],[address] [place] [address] Mucous NONE Normal [facility] Comment on above: Performed By: #### 2 87947 ####[facility],[address] [place], [place] [id number] Nitrite Ql (U) Negative Normal NORMAL: NEGATIVE [facility] Comment on above: Performed By: #### 2 59018 ####[facility],[address] [place] [address] pH (U) 6 [pH] Normal NORMAL: 5.0-8.0 [facility] Comment on above: Performed By: #### 2 45062 ####[facility],[address] [place] [address] Protein Ql (U) 15 Abnormal NORMAL: NEGATIVE [facility] Comment on above: Performed By: #### 2 80990 ####[facility],[address] [place] [address] 62744 Rbc 0-5 Normal 0-3/hpf [facility] Comment on above: Performed By: #### 2 00110 ####[facility],[address] [place] [address] Sp [place] 1.015 Normal NORMAL: 1.010-1.030 [facility] Comment on above: Performed By: #### 2 57696 ####[facility],[address] [place] [address] Specimen Type UNSPECIFIED Normal [facility] Comment on above: Performed By: #### 2 30478 ####[facility],[address] [place], [place] [id number] Urinalysis dipstick W Reflex Microscopic panel (U) SEE BELOW Normal [facility] Comment on above: Result Comment: MICR OSCOPIC Performed By: #### 2 66448 ####[facility],[address] [place] [address] 58139 Urobilinog 1 Abnormal NORMAL: NORMAL [facility] Comment on above: Performed By: #### 2 56620 ####[facility],[address] [place], [place] [id number] Wbc 1-5 Normal 0-5/hpf [facility] Comment on above: Performed By: #### 2 62178 ####[facility],[address] [place], [place] [id number] Yeast NONE Normal [facility] Comment on above: Performed By: #### 2 22167 ####[facility],[address] [place] [address] XR CHEST 1 VIEWon 02-08-2023 XR CHEST 1 VIEW ORIGINAL EXAMINATION: ONE XRAY VIEW OF THE CHEST02/08/2023 4:37 pm COMPARISON: None HISTORY: ORDERING SYSTEM PROVIDED HISTORY: Reason for Exam: hypoxia, fall FINDINGS: Hypoventilatory changes without focal consolidation or pulmonary edema. No pleural effusion or visible pneumothorax. Decreased bony mineralization. IMPRESSION: Hypoventilatory changes without acute cardiopulmonary process. Preliminary Report was Dictated by a Resident I have personally reviewed all of the images of this examination and agree with the resident findings and interpretation. Interpreted by: Hank Brooks MD Preliminary Report By: Deon Davis Electronically signed By Hank Brooks MD Dictated Date: 02/08/2023 5:18:49 PM Prelim Date: 02/08/2023 5:29:54 PM Sign Date: 02/08/2023 6:53:03 PM Ordering Provider: [facility] HAND RT MIN 3 VIEWSon 2022 HAND RT MIN 3 VIEWS [place] [address] Patient: ROSARIO MCNALLY Phone#: : 1945 Age: 77 Gender: F Pt. Type: Out Account: [id number] Location: [facility] Ordering: ERIK CHRISTIE Exam Date: 01/26/2023/15:00 Family Phys: Charge Code: [id number] Physician: [place] Order #: [id number] Dose#: PROCEDURE: X-RAY HAND RT COMPLETE MIN 3 VIEWS COMPARISON: None. INDICATIONS: Right hand injury. FINDINGS: BONES: Nondisplaced fractures at the base of the 3rd and 4th and possibly 2nd metacarpals is present. Mild degenerative changes are present at the interphalangeal joints. SOFT TISSUES: Dorsal soft tissue swelling is present. EFFUSION: None visible. OTHER: Negative. CONCLUSION: 1. Nondisplaced fractures at the base of the 3rd and 4th metacarpals and most likely 2nd metacarpal. Dictated by: Elisabeth Simon MD on 01/26/2023 at 15:20 Approved by: Elisabeth Simon MD on 01/26/2023 at 15:28 Normal [facility] CBC (INCLUDES DIFF/PLT)on Basophils (Bld) [#/Vol] 0.027 10*3/uL Normal 0-200 [facility] Comment on above: Performed By: #### 1 0231, 8988, 0270 #### [facility] [place] [address] Manager Plant: Brayden England MD Basophils/100 WBC (Bld) 0.4 % Normal [facility] Comment on above: Performed By: #### 1 0231, 8827, 9670 #### [facility] [place] [address] Manager Plant: Brayden England MD Eosinophils (Bld) [#/Vol] 0.168 10*3/uL Normal 15-500 [facility] Comment on above: Performed By: #### 1 0231, 9240, 3910 #### [facility] [place] [address] Manager Plant: Brayden England MD Eosinophils/100 WBC (Bld) 2.5 % Normal [facility] Comment on above: Performed By: #### 1 0231, 7450, 3020 #### [facility] [address], [address] [place] [address] Manager Plant: Brayden England MD Erythrocyte distribution width (RBC) [Ratio] 13.2 % Normal 11.0-15.0 [facility] Comment on above: Performed By: #### 1 0231, 6399, 7600 #### [facility] of [address], [address] [place] [address] Manager Plant: Brayden England MD Hematocrit (Bld) [Volume fraction] 36.1 % Normal 35.0-45.0 [facility] Comment on above: Performed By: #### 1 0231, 6399, 7600 #### [facility] of [place] [address] Manager Plant: Brayden England MD Hemoglobin (Bld) [Mass/Vol] 11.0 g/dL Low 11.7-15.5 [facility] Comment on above: Performed By: #### 1 0231, 63, 7600 #### [facility] of [address], [address] [place] [address] Manager Plant: Brayden England MD Lymphocytes (Bld) [#/Vol] 1.467 10*3/uL Normal 850-3900 [facility] Comment on above: Performed By: #### 1 0231, 6399, 7600 #### [facility] of [place] [address] Manager Plant: Brayden England MD Lymphocytes/100 WBC (Bld) 21.9 % Normal [facility] Comment on above: Performed By: #### 1 0231, 6399, 7600 #### [facility] of [place] [address] Manager Plant: Brayden England MD MCH (RBC) [Entitic mass] 28.7 pg Normal 27.0-33.0 [facility] Comment on above: Performed By: #### 1 0231, 6399, 7600 #### [facility] of [place] [address] Manager Plant: Brayden England MD MCHC (RBC) [Mass/Vol] 30.5 g/dL Low 32.0-36.[address] [facility] Comment on above: Performed By: #### 1 0231, 63, 7600 #### [facility] of [place] [address] Manager Plant: Brayden England MD MCV (RBC) [Entitic vol] 94.3 fL Normal 80.0-100.0 [facility] Comment on above: Performed By: #### 1 0231, 63, 7600 #### [facility] of [place] [address] Manager Plant: Brayden England MD Monocytes (Bld) [#/Vol] 0.583 10*3/uL Normal 200-950 [facility] Comment on above: Performed By: #### 1 230, 63, 7600 #### [facility] of [place] [address] Manager Plant: Brayden England MD Monocytes/100 WBC (Bld) 8.7 % Normal [facility] Comment on above: Performed By: #### 1 023, 63, 7600 #### [facility] of [place] [address] Manager Plant: Brayden England MD Neutrophils (Bld) [#/Vol] 4.456 10*3/uL Normal 7815-0216 [facility] Comment on above: Performed By: #### 1 0231, 63, 7600 #### [facility] of [place] [address] Manager Plant: Brayden England MD Neutrophils/100 WBC (Bld) 66.5 % Normal [facility] Comment on above: Performed By: #### 1 0231, 6399, 7600 #### [facility] of [place] [address] Manager Plant: Brayden England MD Platelet mean volume (Bld) [Entitic vol] 10.7 fL Normal 7.5-12.5 [facility] Comment on above: Performed By: #### 1 0231, 6399, 7600 #### [facility] of [address], [address] [place] [address] Manager Plant: Brayden England MD Platelets (Bld) [#/Vol] 252 10*3/uL Normal 140-400 [facility] Comment on above: Performed By: #### 1 0231, 6399, 7600 #### [facility] of [address], [address] [place] [address] Manager Plant: Brayden England MD RBC (Bld) [#/Vol] 3.83 10*6/uL Normal 3.80-5.10 [facility] Comment on above: Performed By: #### 1 0231, 63, 7600 #### [facility] of [address], [address] [place] [address] Manager Plant: Brayden England MD WBC (Bld) [#/Vol] 6.7 10*3/uL Normal 3.8-10.8 [facility] Comment on above: Performed By: #### 1 0231, 63, 7600 #### [facility] of [place] [address] Manager Plant: Brayden England MD [facility] 12-28-2022 Albumin [Mass/Vol] 3.9 g/dL Normal 3.6-5.1 [facility] Comment on above: Performed By: #### 1 0231, 6399, 7600 #### [facility] of [address], [address] [place] [address] Manager Plant: Brayden England MD Albumin/Globulin [Mass ratio] 1.3 {ratio} Normal 1.0-2.5 [facility] Comment on above: Performed By: #### 1 0231, 6399, 7600 #### [facility] of [place] [address] Manager Plant: Brayden England MD ALP [Catalytic activity/Vol] 87 U/L Normal 37-153 [facility] Comment on above: Performed By: #### 1 0231, 63, 7600 #### [facility] of [place] [address] Manager Plant: Brayden England MD ALT [Catalytic activity/Vol] 8 U/L Normal 6-29 [facility] Comment on above: Performed By: #### 1 0231, 63, 7600 #### [facility] of [address], [address] [place] [address] Manager Plant: Brayden England MD AST [Catalytic activity/Vol] 18 U/L Normal 10-35 [facility] Comment on above: Performed By: #### 1 230, 98, 7600 #### [facility] of [place] [address] Manager Plant: Brayden England MD Bilirubin [Mass/Vol] 0.5 mg/dL Normal 0.2-1.2 [facility] Comment on above: Performed By: #### 1 230, 17, 6330 #### [facility] [place] [address] Manager Plant: Brayden England MD BUN/CREATININE RATIO SEE NOTE: Normal 6-22 [facility] Comment on above: Result Comment: Not Reported: BUN and Creatinine are within reference range. Performed By: #### 1 0231, 77, 8550 #### [facility] of [address], [address] [place] [address] Manager Plant: Brayden England MD Calcium [Mass/Vol] 9.4 mg/dL Normal 8.6-10.4 [facility] Comment on above: Performed By: #### 1 0231, 63, 7600 #### [facility] of [place] [address] Manager Plant: Brayden England MD Chloride [Moles/Vol] 104 mmol/L Normal 98-110 [facility] Comment on above: Performed By: #### 1 230, 63, 7600 #### [facility] of [address], [address] [place] [address] Manager Plant: Brayden England MD CO2 [Moles/Vol] 30 mmol/L Normal 20-32 [facility] Comment on above: Performed By: #### 1 0231, 63, 7600 #### [facility] of [address], [address] [place] [address] Manager Plant: Brayden England MD Creatinine [Mass/Vol] 0.78 mg/dL Normal 0.60-1.[address] [facility] Comment on above: Performed By: #### 1 0231, 63, 7600 #### [facility] of [address], [address] [place] [address] Manager Plant: Brayden England MD GFR/1.73 sq M.predicted among non-blacks MDRD (S/P/Bld) [Vol rate/Area] 79 mL/min/{1.73_m2} Normal > OR = 60 [facility] Comment on above: Performed By: #### 1 023, 63, 7600 #### [facility] [place] [address] Manager Plant: Brayden England MD Globulin (S) [Mass/Vol] 3.0 g/dL Normal 1.9-3.7 [facility] Comment on above: Performed By: #### 1 0231, 63, 7600 #### [facility] of [address], [address] [place] [address] Manager Plant: Brayden England MD Glucose [Mass/Vol] 88 mg/dL Normal 65-99 [facility] Comment on above: Result Comment: Fasting reference interval Performed By: #### 1 0231, 6399, 7600 #### [facility] of [place] [address] Manager Plant: Brayden England MD Potassium [Moles/Vol] 4.5 mmol/L Normal 3.5-5.[address] [facility] Comment on above: Performed By: #### 1 0231, 6399, 7600 #### [facility] of [address], [address] [place] [address] Manager Plant: Brayden England MD Protein [Mass/Vol] 6.9 g/dL Normal 6.1-8.1 [facility] Comment on above: Performed By: #### 1 0231, 6399, 7600 #### [facility] of [address], [address] [place] [address] Manager Plant: Brayden England MD Sodium [Moles/Vol] 140 mmol/L Normal 135-146 [facility] Comment on above: Performed By: #### 1 0231, 63, 7600 #### [facility] of [place] [address] Manager Plant: Brayden England MD Urea nitrogen [Mass/Vol] 19 mg/dL Normal 7-25 [facility] Comment on above: Performed By: #### 1 0231, 63, 7600 #### [facility] of [place] [address] Manager Plant: Brayden England MD LIPID PANEL, [facility] 11-2 Cholesterol [Mass/Vol] 155 mg/dL Normal <200 [facility] Comment on above: Performed By: #### 1 0231, 63, 7600 #### [facility] of [place] [address] Manager Plant: Brayden England MD Cholesterol in HDL [Mass/Vol] 51 mg/dL Normal > OR = 50 [facility] Comment on above: Performed By: #### 1 0231, 6399, 7600 #### [facility] of [place] [address] Manager Plant: Brayden England MD Cholesterol in LDL [Mass/Vol] 85 mg/dL Normal [facility] Comment on above: Result Comment: Refe rence range: <100 Desirable range <100 mg/dL for primary prevention; <70 mg/dL for patients with CHD or diabetic patients with > or = 2 CHD risk factors. LDL-C is now calculated using the [place] calculation, which is a validated novel method providing better accuracy than the Friedewald equation in the estimation of LDL-C. Bhaskar WEST et al. QUANG. 2013;310(19): 1991-7739 (http://education.[employer]/faq/IIN681) Performed By: #### 1 0231, 3660, 7570 #### [facility] [address], [address] [place] [address] Manager Plant: Brayden England MD Cholesterol.total/Antonietta sterol in HDL [Mass ratio] 3.0 {ratio} Normal <5.0 [facility] Comment on above: Performed By: #### 1 0231, 4436, 3220 #### [facility] [place] [address] Manager Plant: Brayden England MD NON HDL CHOLESTEROL 104 mg/dL (calc) Normal <130 [facility] Comment on above: Result Comment: For patients with diabetes plus 1 major ASCVD risk factor, treating to a non-HDL-C goal of <100 mg/dL (LDL-C of <70 mg/dL) is considered a therapeutic option. Performed By: #### 1 0231, 4460, 6370 #### [facility] [place] [address] Manager Plant: Brayden England MD Triglyceride [Mass/Vol] 91 mg/dL Normal <150 [facility] Comment on above: Performed By: #### 1 0231, 3770, 9880 #### [facility] [place] [address] Manager Plant: Brayden England MD No Panel Informationon 12-27 155 mg/dL Normal [facility] [employer] 51 mg/dL Normal [facility] [employer] 91 mg/dL Normal [facility] [employer] 85 Normal [facility] 3.0 Normal 1.9 - 3.7 [facility] [place] [facility] [employer] 104 Normal [place] [facility] 88 mg/dL Normal 65 - 99 mg/dL [facility] 19 mg/dL Normal 7 - 25 mg/dL [facility] [place] [employer] [employer] 0.78 mg/dL Normal 0.60 - 1.00 mg/dL [place] [facility], [facility] [place] [employer] [employer] 79 Normal [place] [facility] [employer] SEE NOTE: Normal 6 - 22 [place] [facility] [employer] 140 mmol/L Normal 135 - 146 mmol/L [place] [facility] [employer] 4.5 mmol/L Normal 3.5 - 5.3 mmol/L [place] [facility], [facility] [place] [employer] [employer] 104 mmol/L Normal 98 - 110 mmol/L [place] [facility] [employer] [employer] 30 mmol/L Normal 20 - 32 mmol/L [place] [facility] [employer] [employer] [employer] 9.4 mg/dL Normal 8.6 - 10.4 mg/dL [place] [facility] [employer] 6.9 g/dL Normal 6.1 - 8.1 g/dL [place] [facility], [facility] [employer] 3.9 g/dL Normal 3.6 - 5.1 g/dL [place] [facility] [employer] [employer] 1.3 Normal 1.0 - 2.5 [place] [facility] [employer] [employer] [employer] 0.5 mg/dL Normal 0.2 - 1.2 mg/dL [place] [facility], [facility].; [facility] [employer] 87 U/L Normal 37 - 153 U/L [facility] [place] [employer] [employer] 18 U/L Normal 10 - 35 U/L [place] [facility] [employer] [employer] [employer] 8 U/L Normal 6 - 29 U/L [facility] [employer] [employer] 6.7 Normal 3.8 - 10.8 [facility] [employer] [employer] 3.83 {Million/uL} Normal 3.80 - 5.1 0 {Million/uL} [facility] [employer] [employer] 11.0 g/dL Abnormal 11.7 - 15.5 g/dL [facility] [employer] [employer] 36.1 % Normal 35.0 - 45.0 % [facility] [employer] [employer] 94.3 fL Normal 80.0 - 100.0 fL [place] [facility] [employer] [employer] 28.7 pg Normal 27.0 - 33.0 pg [facility] [employer] [employer] 30.5 g/dL Abnormal 32.0 - 36.0 g/dL [facility] [employer] [employer] 13.2 % Normal 11.0 - 15.0 % [facility] [employer] 252 Normal 140 - 400 [facility] [employer] 10.7 fL Normal 7.5 - 12.5 fL [facility] 4456 {cells/uL} Normal 1500 - 7800 {cells/uL} [employer] 1467 {cells/uL} Normal 850 - 3900 {cells/uL} [employer] 583 {cells/uL} Normal 200 - 950 {cells/uL} [employer] 168 {cells/uL} Normal 15 - 500 {cells/uL} [employer] 27 {cells/uL} Normal 0 - 200 {cells/uL} [employer] [employer] [facility] [employer] 66.5 % Normal [facility] 21.9 % Normal [facility] [employer] 8.7 % Normal [employer] 2.5 % Normal [employer] 0.4 % Normal [employer] EMERGENCY REPORTon 3 EMERGENCY REPORT [facility] EMERGENCY ROOM REPORT NAME ACCOUNT SEX AGE ADMIT DISCHARGE PT MED. RECORD# NUMBER DATE DATE TYPE DALI [id number] Lev 75 06/10/22 06/10/22 David Lopez [id number] ROOM: ER DATE OF : 1945 DICTATING PHYSICIAN: Stew So HISTORY OF PRESENT ILLNESS: The patient had a fall. The patient was walking and fell over a rug. She denies loss of consciousness. She did complain of a headache. She had no vomiting. No visual changes. She did have a 3 cm laceration to the forehead between her eyebrows, and it was bleeding but controlled with pressure. PAST MEDICAL HISTORY: Positive for hypertension, high cholesterol, Parkinson's, depression, and skin cancer. PAST SURGICAL HISTORY: Skin cancer surgery, cholecystectomy, and appendectomy. SOCIAL HISTORY: She does not smoke or drink. REVIEW OF SYSTEMS: Ten systems were reviewed and were negative except as mentioned above. PHYSICAL EXAMINATION: VITAL SIGNS: She is afebrile. Pulse is 83, respirations 18, blood pressure 184/90, and pulse oximetry 94% on room air. HEENT: Head is normocephalic, atraumatic except for the laceration on the left eyebrow. Eyes: Pupils are equal, round and reactive to light. Nares are patent. Throat has adequate oral moisture. Uvula is midline. NECK: Neck is supple without petechiae or rash. HEART: Heart rate is regular without murmur. S1 is equal to S2. No S3 or S4 appreciated. LUNGS: Lungs are clear to auscultation bilaterally. No rales, rhonchi or retractions. ABDOMEN: Abdomen is soft, nontender and nondistended. SKIN: Skin is warm and dry. DIAGNOSTIC DATA: The patient had CT scans of the head and neck which were unremarkable. EMERGENCY DEPARTMENT COURSE AND TREATMENT: Please see my procedure note. Tetanus is up-to-date. She was sutured, cleaned and dressed. She tolerated the procedure well. DIAGNOSIS: Status post fall with 3 cm laceration of the face with repair. PLAN/DISPOSITION: She was discharged to home. Page 1 of 2 ROSARIO MCNALLY Emergency Room Report ROSARIO MCNALLY : 1945 Dictated By: Stew So DO 08/07/22 14:39 JOB #: [id number] Transcribed By: jose 08/07/22 15:10 Electronically signed by: MODESTO So DO 08/16/22 21:25 Page 2 of 2 ROSARIO MCNALLY Emergency Room Report Normal [facility] CT BRAIN W/O CONTRASTon 05-0 CT BRAIN W/O CONTRAST [place] [address] Patient: ROSARIO MCNALLY. Phone#: : 1945 Age: 76 Gender: F Pt. Type: ER Account: [id number] Location: [facility] Ordering: DR. MARIA DEL CARMEN BLACKBURN Exam Date: 06/10/2022/21:04 Family Phys: CHICO CARRASCOSRINIVAS Charge Code: [id number] Physician: [place] Order #: [id number] Dose#: [id number] PROCEDURE: CT BRAIN WITHOUT CONTRAST COMPARISON: [facility], CT, BRAIN W/O CON, 04/24/2022, 10:47. INDICATIONS: Trauma. TECHNIQUE: CT images were obtained without contrast material. All CT scans at this facility use dose modulation, iterative reconstruction, and/or weight based dosing when appropriate to reduce radiation dose to as low as reasonably achievable. IV CONTRAST: No IV contrast used,0ml TOTAL DOSE: 57.50 CTDIvol(mGy) FINDINGS: CEREBRUM: No edema, hemorrhage, mass, acute infarction, or inappropriate atrophy. CEREBELLUM: No edema, hemorrhage, mass, acute infarction, or inappropriate atrophy. BRAINSTEM: No edema, hemorrhage, mass, acute infarction, or inappropriate atrophy. CSF SPACES: Ventricles, cisterns, and sulci are appropriate for age. No hydrocephalus, subarachnoid hemorrhage, or mass. SKULL: Midline frontal soft tissue swelling is present. Subcutaneous emphysema is present consistent with laceration. SINUSES: Limited views demonstrate no significant mucosal thickening or fluid. ORBITS: Limited views are unremarkable. OTHER: Negative. CONCLUSION: 1. There is no evidence of acute intracranial abnormality. 2. Frontal soft tissue swelling and subcutaneous emphysema. Dictated by: Elisabeth Simon MD on 06/10/2022 at 22:01 Approved by: Elisabeth Simon MD on 06/10/2022 at 22:03 Normal [facility] CT CERVICAL W/O CONTRASTon 0 06-10-2022 CT CERVICAL W/O CONTRAST [place] [address] Patient: ROSARIO MCNALLY Phone#: : 1945 Age: 76 Gender: F Pt. Type: ER Account: [id number] Location: [facility] Ordering: DR. MARIA DEL CARMEN BLACKBURN Exam Date: 06/10/2022/21:04 Family Phys: CHICO COLLIER Charge Code: [id number] Physician: [place] Order #: [id number] Dose#: 7.20 PROCEDURE: CT CERVICAL WITHOUT CONTRAST COMPARISON: [facility], CT, CERVICAL W/O CON, 04/24/2022, 10:47. INDICATIONS: Trauma. TECHNIQUE: Multi-planar CT images were created without intravenous contrast. All CT scans at this facility use dose modulation, iterative reconstruction, and/or weight-based dosing when appropriate to reduce radiation dose to as low as reasonably achievable. IV CONTRAST: No IV contrast used,0ml TOTAL DOSE: 7.20 CTDIvol(mGy) FINDINGS: CRANIOCERVICAL AREA: Normal foramen magnum with no Chiari malformation. PARASPINAL AREA: Normal with no visible mass. BONES: There is straightening of the normal cervical lordosis. Probable osseous hemangioma at C6. CERVICAL DISC LEVELS: C2-C3: Disc space narrowing is present. There is bony hypertrophy with narrowing of the right neural foramen. C3-C4: Disc space narrowing is present. Osteophytes are present with narrowing of the foramina bilaterally. C4-C5: Disc space narrowing is present. There is minimal retrolisthesis. Osteophytes are present with bilateral foraminal narrowing. There is mild spinal canal narrowing. C5-C6: There is disc space narrowing. Osteophytes are present with narrowing of the foramina bilaterally. C6-C7: Disc space narrowing is present. There is narrowing of the foramina bilaterally. C7-T1: Osteophytes are present at the endplates with right foraminal narrowing. CONCLUSION: 1. There is no evidence of acute fracture or subluxation. [address] [address] Patient: ROSARIO MCNALLY Phone#: : 1945 Age: 76 Gender: F Pt. Type: ER Account: [id number] Location: 052 Ordering: DR. MARIA DEL CARMEN BLACKBURN Exam Date: 06/10/2022/21:04 Family Phys: CHICO COLLEIR Charge Code: [id number] Physician: [place] Order #: [id number] Dose#: 7.20 Dictated by: Elisabeth Simon MD on 06/10/2022 at 22:04 Approved by: Elisabeth Simon MD on 06/10/2022 at 22:08 Normal [facility] 3D MAMM BILAT SCREENon 05-19 3D MAMM BILAT SCREEN [place] [id number] Patient: ROSARIO MCNALLY Phone#: : 1945 Age: 76 Gender: F Pt. Type: Out Account: [id number] Location: 052 Ordering: CHICO COLLIER Exam Date: 05/19/2022/13:21 Family Phys: Charge Code: [id number] Physician: [place] Order #: [id number] Dose#: PROCEDURE: BILATERAL SCREENING BREAST TOMOSYNTHESIS MAMMOGRAM WITH CAD COMPARISON: [facility], BILAT SCREENING, 01/25/2020, 13:03. [facility], 3D BILAT SCREEN, 04/08/2021, 14:42. INDICATIONS: Screening. BREAST COMPOSITION: Scattered areas fibroglandular density. FINDINGS: DIAGNOSTIC CATEGORY 1--NEGATIVE NO CHANGE FROM COMPARISON ASSESSMENT. RIGHT BREAST: No significant suspicious finding. No significant change has occurred. LEFT BREAST: No significant suspicious finding. No significant change has occurred. RECOMMENDATIONS: ROUTINE MAMMOGRAM AND CLINICAL EVALUATION IN 12 MONTHS. PLEASE NOTE: A NORMAL MAMMOGRAM DOES NOT EXCLUDE THE POSSIBILITY OF BREAST CANCER. A CLINICALLY SUSPICIOUS PALPABLE LUMP SHOULD BE BIOPSIED. THIS FACILITY UTILIZES A REMINDER SYSTEM TO ENSURE THAT ALL PATIENTS RECEIVE REMINDER LETTERS FOR APPOINTMENTS. THIS INCLUDES REMINDERS FOR ROUTINE MAMMOGRAMS, DIAGNOSITC MAMMOGRAMS, OR OTHER BREAST IMAGING INTERVENTIONS WHEN APPROPRIATE. THIS PATIENT WILL BE PLACED IN THE APPROPRIATE REMINDER SYSTEM. Dictated by: Elisabeth Simon MD on 05/19/2022 at 13:39 Approved by: Elisabeth Simon MD on 05/19/2022 at 13:43 Normal [facility] CV CAROTID STUDYon CV CAROTID STUDY [place] [address] Patient: ROSARIO MCNALLY Phone#: : 1945 Age: 76 Gender: F Pt. Type: Out Account: [id number] Location: [facility] Ordering: CHICO COLLIER Exam Date: 05/19/2022/12:49 Family Phys: Charge Code: [id number] Physician: [place] Order #: [id number] Dose#: PROCEDURE: CAROTID FLOW STUDY COMPARISON: None. INDICATIONS: Frequent falls TECHNIQUE: Color duplex Doppler ultrasound and pulsed Doppler analysis were performed to evaluate the cervical carotid arteries and vertebral flow. All measurements for carotid artery narrowing or stenosis were obtained using the ipsilateral distal internal carotid artery as the reference value. COMPUTER ART INSTRUCTOR: CAMILLE PT HISTORY: Frequent falls RIGHT IMAGING FINDINGS: CCA: Mild heterogenous plaque is present. ICA: Mild heterogenous plaque without hemodynamically significant stenosis. ECA: Mild heterogenous plaque is present. Vertebral A: Antegrade flow Comments: Category: II. Less than 50% stenosis. ICA PSV less than 180cm/s. Plaque and/or intimal thickening present. LEFT IMAGING FINDINGS: CCA: Mild heterogenous plaque is present. ICA: Moderate heterogenous plaque without hemodynamically significant stenosis. ECA: Mild heterogenous plaque is present. Vertebral A: Antegrade flow. Comments: Category: II Less than 50% stenosis. ICA PSV less than 180cm/s. Plaque and/or intimal thickening present. RIGHT VELOCITY RECORDINGS Prox CCA: 72.64 cm/s Prox CCA EDV: 13.11 cm/s Mid CCA: 56.83 cm/s Mid CCA EDV: 13.11 cm/s Distal CCA: 67.06 cm/s Distal CCA EDV: 14.04 cm/s ECA: 73.20 cm/s ECA EDV: 12.74 cm/s Prox ICA: 52.74 cm/s Prox ICA EDV: 11.81 cm/s Continued Report - Page 2 of 2 Patient: ROSARIO MCNALLY Phone#: : 1945 Age: 76 Gender: F Pt. Type: Out Account: [id number] Location: [facility] Ordering: CHICO COLLIER Exam Date: 05/19/2022/12:49 Family Phys: Charge Code: [id number] Physician: [place] Order #: [id number] Dose#: Mid ICA: 57.39 cm/s Mid ICA EDV: 20.18 cm/s Distal ICA: 87.82 cm/s Distal ICA EDV: 24.23 cm/s Vertebral Artery: 74.42 cm/s Vertebral Artery EDV: 23.81 cm/s Subclavian Artery: 97.01 cm/s LEFT VELOCITY RECORDINGS Prox CCA: 83.69 cm/s Prox CCA EDV: 16.67 cm/s Mid CCA: 70.41 cm/s Mid CCA EDV: 18.32 cm/s Distal CCA: 69.85 cm/s Distal CCA EDV: 17.76 cm/s ECA: 81.57 cm/s ECA EDV: 11.81 cm/s Prox ICA: 72.11 cm/s Prox ICA EDV: 18.37 cm/s Mid ICA: 87.01 cm/s Mid ICA EDV: 26.09 cm/s Distal ICA: 66.69 cm/s Distal ICA EDV: 25.76 cm/s Vertebral Artery: 38.23 cm/s Vertebral Artery EDV: 12.18 cm/s Subclavian Artery: 82.66 cm/s CONCLUSION: 1. Kqxn-wx-tdylzrmm irregular mixed plaque is present. 2. There is no evidence of hemodynamically significant stenosis. Dictated by: Elisabeth Simon MD on 05/19/2022 at 13:31 Approved by: Elisabeth Simon MD on 05/19/2022 at 13:33 Normal [facility] EMERGENCY REPORTon 3 EMERGENCY REPORT [facility] EMERGENCY ROOM REPORT NAME ACCOUNT SEX AGE ADMIT DISCHARGE PT MED. RECORD# NUMBER DATE DATE TYPE DALI [id number] F 76 04/24/22 04/24/22 3 ROSARIO Lopez [id number] ROOM: ER DATE OF : 1945 DICTATING PHYSICIAN: Stew So ADDENDUM: DIAGNOSTIC DATA: The patient had a possible nondisplaced right zygomatic arch fracture. PLAN/DISPOSITION: I did talk to the daughter, and she is going to followup with Dr. Collier on Tuesday, and he can reevaluate. I also told her she could followup with Dr. Strickland. Dictated By: Stew So DO 04/26/22 20:17 JOB #: [id number] Transcribed By: am 04/27/22 08:59 Electronically signed by: MODESTO So DO 05/04/22 08:19 Page 1 of 1 ROSARIO MCNALLY Emergency Room Report Normal [facility] EMERGENCY REPORTon 3 EMERGENCY REPORT [facility] EMERGENCY ROOM REPORT NAME ACCOUNT SEX AGE ADMIT DISCHARGE PT MED. RECORD# NUMBER DATE DATE TYPE DALI [id number] Lev 76 04/24/22 04/24/22 3 ROSARIO Lopez [id number] ROOM: ER DATE OF : 1945 DICTATING PHYSICIAN: Matilde Veronica HISTORY OF PRESENT ILLNESS: This is a 76-year-old female with a past medical history of Parkinson's disease, presenting after a fall last night. She presents with her daughter at the bedside, who states that the fall was unwitnessed. However, patient was seen at approximately 8:30 p.m. and then was found by son-in-law at about 9:30 p.m. The patient states that when she was walking, she did feel dizzy and then fell, hitting her face on a windowsill. She denies any loss of consciousness. She has since been able to walk. Last night she refused to come to the emergency department. The patient's daughter states that the patient intermittently has episodes of dizziness and has for the last six months. They have seen both their primary care doctor as well as a neurologist for these dizzy spells. The patient denies any headache. She reports mild pain over the face associated with her wounds. She denies any vision changes, no weakness or numbness. She is not currently dizzy. She denied any chest pain or presyncopal symptoms aside from dizziness. PHYSICAL EXAMINATION: HEENT: Notable for a 1.5 cm linear laceration above the right eyebrow, with no active bleeding. She does have a superficial abrasion to the right cheek and over the nasal bridge without any active bleeding. Extraocular motions are intact. She has mild right maxillary facial tenderness, otherwise no step-offs, no malocclusion, no nasal septal hematoma. She does have midline cervical spine tenderness and paraspinal muscle tenderness. No midline, thoracic or lumbar tenderness. Pelvis is stable to lateral compression. She has chronic right hip pain and difficulty with raising her right hip. This is baseline. On neurologic examination she has intact cranial nerves, is answering questions appropriately, has normal speech, intact [id number]-qlzr bilaterally. Sensation is intact to bilateral upper and lower extremities. DIAGNOSTIC DATA: CT head and cervical spine were obtained without evidence of bony abnormality, only notable for soft tissue edema and chronic findings. Chest x-ray without obvious deformity or fractures or pneumothorax. Pelvic x-ray without evidence of hip dislocation or obvious hip fractures. EMERGENCY DEPARTMENT COURSE AND TREATMENT: The patient was very anxious to leave the emergency department, and patient's daughter states that she is difficult to get to the doctor. Laceration repair of the right frontal face laceration completed with 5-0 absorbable sutures, as the patient is likely going to have difficulty returning to any provider to get the sutures removed. Three of these sutures were placed after approximately 2 mL 1% lidocaine without epinephrine were injected. Page 1 of 2 ROSARIO MCNALLY Emergency Room Report ROSARIO MCNALLY : 1945 Wound was washed out with saline. Bleeding controlled. Bacitracin ointment was applied after sutures were placed. The patient tolerated the procedure well. The patient received updated Tdap vaccination, as she does not have anything on file for how recent her immunization was. She was able to ambulate in the emergency department without difficulty and did not develop any dizziness. She wants to go home. PLAN/DISPOSITION: The patient and daughter were given infectious return precautions regarding the wound on her face, as well as supportive care measures for home, and patient was advised to use a walker more often. The patient's daughter states that the patient intermittently uses a walker when she feels like it. However, they believe she needs to be using it more often due to several falls recently. The patient was comfortable with going home, and daughter was comfortable taking the patient home. I advised her to follow up with her regular doctor as soon as available, and she was agreeable to this. She was given return precautions and follow-up instructions, discharged home in stable condition. Dictated By: Matilde Veronica MD 04/24/22 12:26 JOB #: [id number] Transcribed By: ameena 04/24/22 21:53 Electronically signed by: Dr. Matilde Veronica MD 04/26/22 02:46 Page 2 of 2 ROSARIO MCNALLY Emergency Room Report Normal [facility] CHEST 1 VIEWon 04-24-2022 CHEST 1 VIEW [place] [address] Patient: ROSARIO MCNALLY. Phone#: : 1945 Age: 76 Gender: F Pt. Type: ER Account: [id number] Location: [facility] Ordering: DR. MATILDE VERONICA Exam Date: 04/24/2022/11:09 Family Phys: CHICO COLLIER Charge Code: [id number] Physician: [place] Order #: [id number] Dose#: PROCEDURE: X-RAY CHEST 1 VIEW COMPARISON: [facility], XR, CHEST PA/LAT, 02/20/2016, 12:12. INDICATIONS: Trauma. FINDINGS: LUNGS: Likely bilateral lower lobe nipple shadows. No significant pulmonary parenchymal abnormalities. VASCULATURE: Normal. Unremarkable pulmonary vasculature. CARDIAC: Normal. No cardiac silhouette abnormality or cardiomegaly. MEDIASTINUM: Normal. No visible mass or adenopathy. PLEURA: Normal. No effusion or pleural thickening. BONES: Normal. No fracture or visible bony lesion. OTHER: Negative. CONCLUSION: No acute disease. No significant change has occurred. Dictated by: Elisabeth Simon MD on 04/24/2022 at 13:29 Approved by: Elisabeth Simon MD on 04/24/2022 at 13:31 Normal [facility] CT BRAIN W/O CONTRASTon 03-1 CT BRAIN W/O CONTRAST [place] [address] Patient: ROSARIO MCNALLY Phone#: : 1945 Age: 76 Gender: F Pt. Type: ER Account: [id number] Location: 2 Ordering: DR. MATILDE VERONICA Exam Date: 04/24/2022/10:47 Family Phys: CHICO COLLIER Charge Code: [id number] Physician: [place] Order #: [id number] Dose#: PROCEDURE: CT BRAIN WITHOUT CONTRAST COMPARISON: None. INDICATIONS: Trauma. TECHNIQUE: CT images were obtained without contrast material. All CT scans at this facility use dose modulation, iterative reconstruction, and/or weight based dosing when appropriate to reduce radiation dose to as low as reasonably achievable. IV CONTRAST: No IV contrast used,ml TOTAL DOSE: 52.3 CTDIvol(mGy) FINDINGS: CEREBRUM: Age-appropriate atrophy is present, without visible acute hemorrhage or lesion. CEREBELLUM: No edema, hemorrhage, mass, acute infarction, or inappropriate atrophy. BRAINSTEM: No edema, hemorrhage, mass, acute infarction, or inappropriate atrophy. CSF SPACES: Ventricles, cisterns, and sulci are appropriate for age. No hydrocephalus, subarachnoid hemorrhage, or mass. SKULL: Mild right frontal soft tissue swelling is present. SINUSES: Limited views demonstrate no significant mucosal thickening or fluid. ORBITS: Right periorbital soft tissue swelling is present. OTHER: Negative. CONCLUSION: 1. There is no evidence of acute intracranial abnormality. 2. Right frontal and right periorbital soft tissue edema. Dictated by: Elisabeth Simon MD on 04/24/2022 at 13:09 Approved by: Elisabeth Simon MD on 04/24/2022 at 13:12 Normal [facility] CT CERVICAL W/O CONTRASTon 0 04-24-2022 CT CERVICAL W/O CONTRAST [address] [address] Patient: ROSARIO MCNALLY Phone#: : 1945 Age: 76 Gender: F Pt. Type: ER Account: [id number] Location: [facility] Ordering: DR. MATILDE VERONICA Exam Date: 04/24/2022/10:47 Family Phys: CHICO COLLIER Charge Code: [id number] Physician: [place] Order #: [id number] Dose#: PROCEDURE: CT CERVICAL WITHOUT CONTRAST COMPARISON: None. INDICATIONS: Trauma. TECHNIQUE: Multi-planar CT images were created without intravenous contrast. All CT scans at this facility use dose modulation, iterative reconstruction, and/or weight-based dosing when appropriate to reduce radiation dose to as low as reasonably achievable. IV CONTRAST: No IV contrast used,ml TOTAL DOSE: 7.1 CTDIvol(mGy) FINDINGS: CRANIOCERVICAL AREA: Normal foramen magnum with no Chiari malformation. PARASPINAL AREA: Normal with no visible mass. BONES: No fracture, pars defect, or osseous lesion. Subcortical cysts are present at the T to vertebral body and left lamina. Osseous hemangioma at the C6 level. CERVICAL DISC LEVELS: C2-C3: Disc space narrowing is present. The foramina are patent. C3-C4: Disc space narrowing is present. There is minimal anterolisthesis. Mild left foraminal narrowing is present. C4-C5: Disc space narrowing is present. There is bony hypertrophy at the endplates with mild bilateral foraminal narrowing. C5-C6: Disc space narrowing is present. Endplate osteophytes are present with mild bilateral foraminal narrowing. C6-C7: No significant disc/facet abnormality, spinal stenosis, or foraminal stenosis. C7-T1: No significant disc/facet abnormality, spinal stenosis, or foraminal stenosis. CONCLUSION: 1. Multilevel degenerative changes are present. 2. There is no evidence of acute fracture or subluxation. [address] [address] Patient: ROSARIO MCNALLY Phone#: : 1945 Age: 76 Gender: F Pt. Type: ER Account: [id number] Location: 052 Ordering: DR. MATILDE VERONICA Exam Date: 04/24/2022/10:47 Family Phys: CHICO COLLIER Charge Code: [id number] Physician: [place] Order #: [id number] Dose#: Dictated by: Elisabeth Simon MD on 04/24/2022 at 13:18 Approved by: Elisabeth Simon MD on 04/24/2022 at 13:23 Normal [facility] CT FACIAL BONES W/O CONTRAST on 04-24-2022 CT FACIAL BONES W/O CONTRAST [place] [address] Patient: ROSARIO MCNALLY Phone#: : 1945 Age: 76 Gender: F Pt. Type: ER Account: [id number] Location: 052 Ordering: DR. MATILDE VERONICA Exam Date: 04/24/2022/10:47 Family Phys: CHICO COLLIER Charge Code: [id number] Physician: [place] Order #: [id number] Dose#: PROCEDURE: CT FACIAL BONES WITHOUT CONTRAST COMPARISON: None. INDICATIONS: Trauma. TECHNIQUE: After obtaining the patient's consent, CT images were created without non-ionic intravenous contrast. All CT scans at this facility use dose modulation, iterative reconstruction, and/or weight based dosing when appropriate to reduce radiation dose to as low as reasonably achievable. IV CONTRAST: No IV contrast used,ml TOTAL DOSE: 27.8 CTDIvol(mGy) FINDINGS: FACIAL BONES: There is cortical disruption of the right zygomatic arch suspicious for non depressed fracture. SINUSES: Right maxillary retention cyst is present. Incompletely imaged right mastoid air cells. Partial opacification cannot be excluded. NASAL FOSSA: Normal. No mass, fracture, or significant septal deviation. SKULL BASE: Normal. No mass or bone destruction. ORBITS: Mild right periorbital soft tissue edema. CAVERNOUS SINUS: Normal. Symmetric appearance with no visible lesion. SALIVARY GLANDS: Normal. The parotid and submandibular glands are unremarkable. OTHER: Normal. The nasopharynx, oropharynx, and oral cavity are unremarkable. No lymphadenopathy. CONCLUSION: 1. Possible nondepressed right zygomatic arch fracture. 2. Right periorbital soft tissue edema. Dictated by: Elisabeth Simon MD on 04/24/2022 at 13:12 Continued Report - Page 2 of 2 Patient: ROSARIO MCNALLY Phone#: : 1945 Age: 76 Gender: F Pt. Type: ER Account: [id number] Location: 052 Ordering: DR. MATILDE VERONICA Exam Date: 04/24/2022/10:47 Family Phys: CHICO COLLIER Charge Code: [id number] Physician: [place] Order #: [id number] Dose#: Approved by: Elisabeth Simon MD on 04/24/2022 at 13:18 Normal [facility] PELVIS 1 or 2 VIEWSon 2022 PELVIS 1 or 2 VIEWS [place] [address] Patient: ROSARIO MCNALLY Phone#: : 1945 Age: 76 Gender: F Pt. Type: ER Account: [id number] Location: 052 Ordering: DR. MATILDE VERONICA Exam Date: 04/24/2022/11:10 Family Phys: CHICO COLLIER Charge Code: [id number] Physician: [place] Order #: [id number] Dose#: PROCEDURE: X-RAY PELVIS AP COMPARISON: [facility], XR, PELVIS AP, 09/15/2011, 6:52. INDICATIONS: Trauma. FINDINGS: BONES: Degenerative changes of the lower lumbar spine and hips are present. There is marked narrowing of the left superior hip joint space. SOFT TISSUES: Negative. No visible soft tissue swelling. EFFUSION: None visible. OTHER: Negative. CONCLUSION: 1. Degenerative changes are present at the spine and hips. There is no evidence of acute bone abnormality. Dictated by: Elisabeth Simon MD on 04/24/2022 at 13:31 Approved by: Elisabeth Simon MD on 04/24/2022 at 13:32 Normal [facility] No Panel Informationon 12-28 140 mg/dL Normal [facility] 53 mg/dL Normal [facility] 82 mg/dL Normal [facility] 71 Normal [facility] 2.6 Normal [facility] 87 Normal [facility] 85 mg/dL Normal 65 - 99 mg/dL [facility] 18 mg/dL Normal 7 - 25 mg/dL [facility] 0.71 mg/dL Normal 0.60 - 1.00 mg/dL [facility] 89 Normal [facility] NOT APPLICABLE Normal 6 - 22 [facility] 141 mmol/L Normal 135 - 146 mmol/L [facility] 4.4 mmol/L Normal 3.5 - 5.3 mmol/L [facility] 104 mmol/L Normal 98 - 110 mmol/L [facility] 32 mmol/L Normal 20 - 32 mmol/L [facility] 9.5 mg/dL Normal 8.6 - 10.4 mg/dL [facility] 6.8 g/dL Normal 6.1 - 8.1 g/dL [facility] 4.0 g/dL Normal 3.6 - 5.1 g/dL [facility] 2.8 Normal 1.9 - 3.7 [facility] 1.4 Normal 1.0 - 2.5 [facility] 0.6 mg/dL Normal 0.2 - 1.2 mg/dL [facility] [place] [employer] [facility] 167 U/L Abnormal 37 - 153 U/L [facility] 14 U/L Normal 10 - 35 U/L [facility] [place] [employer] [facility] 4 U/L Abnormal 6 - 29 U/L [facility] 7.5 Normal 3.8 - 10.8 [facility] [place] [employer] [employer] 3.51 {Million/uL} Abnormal 3.80 - 5.1 0 {Million/uL} [place] [employer] [facility] [place] [employer] 10.4 g/dL Abnormal 11.7 - 15.5 g/dL [facility] [place] [employer] [employer] 32.5 % Abnormal 35.0 - 45.0 % [place] [employer] [facility] [place] [employer] [employer] 92.6 fL Normal 80.0 - 100.0 fL [facility] [place] [employer] [employer] 29.6 pg Normal 27.0 - 33.0 pg [place] [facility] [place] [employer] 32.0 g/dL Normal 32.0 - 36.0 g/dL [facility] [place] [employer] [employer] 13.1 % Normal 11.0 - 15.0 % [place] [employer] [employer] [employer] 254 Normal 140 - 400 [place] [employer] [place] [employer] [employer] 10.9 fL Normal 7.5 - 12.5 fL [place] [employer] [employer] [employer] [employer] 5475 {cells/uL} Normal 1500 - 7800 {cells/uL} [facility] 1193 {cells/uL} Normal 850 - 3900 {cells/uL} [facility] [employer] [employer] 690 {cells/uL} Normal 200 - 950 {cells/uL} [facility] [employer] [employer] 90 {cells/uL} Normal 15 - 500 {cells/uL} [facility] [employer] 53 {cells/uL} Normal 0 - 200 {cells/uL} [facility] [employer] 73 % Normal [facility] [employer] [employer] 15.9 % Normal [facility] [employer] 9.2 % Normal [employer] 1.2 % Normal [facility] [employer] [employer] 0.7 % Normal [employer] No Panel Informationon 01-05 146 mg/dL Normal [facility] [employer] [employer] [employer] 56 mg/dL Normal [facility] [employer] [employer] [employer]. 67 mg/dL Normal [facility] [employer] [employer] 76 Normal [employer] 2.6 Normal [employer] 90 Normal [employer] [employer] [employer] [employer] 92 mg/dL Normal 65 - 99 mg/dL [facility] [employer] [employer] [employer] 15 mg/dL Normal 7 - 25 mg/dL [facility] [employer] 0.72 mg/dL Normal 0.60 - 0.93 mg/dL [employer], [employer] 82 Normal [employer], [employer] 96 Normal [employer], [employer], [employer]. NOT APPLICABLE Normal 6 - 22 [facility] [employer], [employer] 138 mmol/L Normal 135 - 146 mmol/L [employer].; [employer] 4.3 mmol/L Normal 3.5 - 5.3 mmol/L [facility], Inc.; [facility], Inc. 102 mmol/L Normal 98 - 110 mmol/L [facility], Inc.; [facility], Inc. 29 mmol/L Normal 20 - 32 mmol/L [facility], Inc.; [facility], Inc. 9.5 mg/dL Normal 8.6 - 10.4 mg/dL [facility], Inc.; [facility], Inc. 7.2 g/dL Normal 6.1 - 8.1 g/dL [facility], Inc.; [facility], Inc[facility] 3.8 g/dL Normal 3.6 - 5.1 g/dL [facility], Inc.; [facility], Inc[facility] 3.4 Normal 1.9 - 3.7 [facility], Inc.; [facility], Inc[facility] 1.1 Normal 1.0 - 2.5 [facility], Inc.; [facility], Inc. 0.6 mg/dL Normal 0.2 - 1.2 mg/dL [facility], Inc.; [facility], Inc. 80 U/L Normal 37 - 153 U/L [facility], [facility].; [facility], Inc. 15 U/L Normal 10 - 35 U/L [facility], [facility].; [facility], [employer] 7 U/L Normal 6 - 29 U/L [facility], Inc.; [facility], Inc. 8.8 Normal 3.8 - 10.8 [facility], Inc.; [place] [employer] [facility], Inc. 3.91 {Million/uL} Normal 3.80 - 5.1 0 {Million/uL} [facility], Inc.; [place] [employer] [facility], [employer] 11.3 g/dL Abnormal 11.7 - 15.5 g/dL [facility], Inc.; [place] [employer] [facility], Inc. 34.9 % Abnormal 35.0 - 45.0 % [facility], Inc.; [place] [employer] [facility], Inc. 89.3 fL Normal 80.0 - 100.0 fL [facility], Inc.; [facility], Inc. 28.9 pg Normal 27.0 - 33.0 pg [facility], Inc.; [employer] 32.4 g/dL Normal 32.0 - 36.0 g/dL [employer].; [employer], [employer] 13.0 % Normal 11.0 - 15.0 % [employer], [employer] 314 Normal 140 - 400 [employer], [employer] 10.5 fL Normal 7.5 - 12.5 fL [employer], [employer] 6160 {cells/uL} Normal 1500 - 7800 {cells/uL} [employer] 1857 {cells/uL} Normal 850 - 3900 {cells/uL} [employer] 686 {cells/uL} Normal 200 - 950 {cells/uL} [employer] 53 {cells/uL} Normal 15 - 500 {cells/uL} [employer] 44 {cells/uL} Normal 0 - 200 {cells/uL} [employer], [employer] 70 % Normal [employer], [employer].; [employer], [employer] 21.1 % Normal [employer].; [employer], [employer] 7.8 % Normal [employer], [employer].; [employer], [employer] 0.6 % Normal [employer], [employer].; [employer], [employer] 0.5 % Normal [employer].; [employer] 2.63 {mIU/L} Normal 0.40 - 4.50 {mIU/L} [employer], [employer] No Panel Informationon 07-28 SEE NOTE Normal [employer], [employer].; [employer] BIOPSY Normal [employer], [employer].; [employer], [employer]. No Panel Informationon 12-23 168 mg/dL Normal [employer], [employer].; [employer], [employer] 59 mg/dL Normal [employer], [employer].; [facility] 89 mg/dL Normal [facility], Inc.; [place] [employer] [facility] [employer] 91 Normal [facility], Inc.; [place] [employer] [facility], [employer] 2.8 Normal 1.9 - 3.7 [place] [employer] [facility], Inc.; [facility] [employer] [facility] [employer] 109 Normal [place] [employer], [employer].; [place] [employer] [facility], [employer] 92 mg/dL Normal 65 - 99 mg/dL [facility], Inc.; [place] [employer], [employer]. 20 mg/dL Normal 7 - 25 mg/dL [facility], Inc.; [place] [employer], [employer]. 0.82 mg/dL Normal 0.60 - 0.93 mg/dL [place] [employer] [facility], Inc.; [place] [employer], [employer]. 71 Normal [place] [employer], [employer].; [place] [employer], [employer]. 82 Normal [place] [employer], [employer].; [place] [employer], [employer]. NOT APPLICABLE Normal 6 - 22 [facility], Inc.; [place] [employer], [employer]. 140 mmol/L Normal 135 - 146 mmol/L [facility], Inc.; [employer], [employer]. 4.2 mmol/L Normal 3.5 - 5.3 mmol/L [facility], Inc.; [employer], [employer]. 102 mmol/L Normal 98 - 110 mmol/L [facility], Inc.; [place] [employer], [employer]. 31 mmol/L Normal 20 - 32 mmol/L [place] [employer] [facility], Inc.; [place] [employer], Inc. 10.0 mg/dL Normal 8.6 - 10.4 mg/dL [facility], Inc.; [facility], [employer] 7.2 g/dL Normal 6.1 - 8.1 g/dL [place] [employer] [facility], Inc.; [facility] [employer] [facility], [employer] 4.4 g/dL Normal 3.6 - 5.1 g/dL [place] [employer] [facility], Inc.; [facility] [employer] [facility], [employer] 1.6 Normal 1.0 - 2.5 [place] [employer], [employer].; [facility] [employer] [facility], [employer] 0.8 mg/dL Normal 0.2 - 1.2 mg/dL [place] [employer], [employer].; [employer] 80 U/L Normal 37 - 153 U/L [facility], Inc.; [employer], [employer]. 17 U/L Normal 10 - 35 U/L [facility], Inc.; [employer], [employer]. 6 U/L Normal 6 - 29 U/L [facility] [employer], [employer].; [employer]. 9.5 Normal 3.8 - 10.8 [facility] [employer], [employer].; [place] [employer], Inc. 4.08 {Million/uL} Normal 3.80 - 5.1 0 {Million/uL} [place] [employer], [employer].; [employer] 12.4 g/dL Normal 11.7 - 15.5 g/dL [place] [employer], [employer].; [employer], [employer]. 37.1 % Normal 35.0 - 45.0 % [place] [employer], [employer].; [employer] 90.9 fL Normal 80.0 - 100.0 fL [place] [employer], [employer].; [place] [employer], [employer]. 30.4 pg Normal 27.0 - 33.0 pg [place] [employer], [employer].; [employer], [employer] 33.4 g/dL Normal 32.0 - 36.0 g/dL [place] [employer], [employer].; [employer]. 12.7 % Normal 11.0 - 15.0 % [place] [employer], [employer].; [employer], [employer] 288 Normal 140 - 400 [place] [employer], [employer].; [employer]. 10.7 fL Normal 7.5 - 12.5 fL [place] [employer], [employer].; [employer], [employer] 6698 {cells/uL} Normal 1500 - 7800 {cells/uL} [employer], [employer], [employer] 1900 {cells/uL} Normal 850 - 3900 {cells/uL} [employer], [employer], [employer] 684 {cells/uL} Normal 200 - 950 {cells/uL} [employer], [employer].; [employer], [employer] 152 {cells/uL} Normal 15 - 500 {cells/uL} [employer], [employer].; [employer], [employer] 67 {cells/uL} Normal 0 - 200 {cells/uL} [facility], Inc.; [place] [employer], [facility]. 70.5 % Normal [facility].; [place] [employer], Inc. 20.0 % Normal [facility].; [place] [employer], [facility]. 7.2 % Normal [facility], [facility].; [place] [employer], Inc. 1.6 % Normal [facility].; [place] [employer], [employer]. 0.7 % Normal [facility], [facility].; [place] [employer] [facility], [facility]. Laboratory - Chemistry and C hemistry - challengeon 12-22-2018 Albumin [Mass/Vol] 4.4 g/dL Normal 3.6 - 5.1 g/dL [facility].; [place] [employer] [facility], [facility]. Albumin/Globulin [Mass ratio] 1.6 {ratio} Normal 1.0 - 2.5 [facility].; [place] [employer], [facility]. ALP [Catalytic activity/Vol] 79 U/L Normal 33 - 130 U/L [facility].; [place] [employer], [employer]. ALT [Catalytic activity/Vol] 4 U/L Abnormal 6 - 29 U/L [facility].; [place] [employer], [employer]. AST [Catalytic activity/Vol] 15 U/L Normal 10 - 35 U/L [place] [employer] [facility].; [place] [employer], [employer]. Bilirubin [Mass/Vol] 0.8 mg/dL Normal 0.2 - 1 .2 mg/dL [facility], [facility].; [place] [employer], [facility]. Calcium [Mass/Vol] 9.8 mg/dL Normal 8.6 - 10. 4 mg/dL [place] [employer] [facility].; [place] [employer], [employer]. Chloride [Moles/Vol] 103 mmol/L Normal 98 - 11 0 mmol/L [facility].; [place] [employer], [employer]. Cholesterol [Mass/Vol] 160 mg/dL Normal [facility].; [place] [employer] [facility], [facility]. Cholesterol in HDL [Mass/Vol] 62 mg/dL Normal [facility], [facility].; [place] [employer], [facility]. Cholesterol in LDL [Mass/Vol] 82 mg/dL Normal 0 - 100 mg/dL [facility].; [facility], [facility]. Cholesterol non HDL [Mass/Vol] 98 mg/dL Normal [facility], [facility].; [facility], [facility]. Cholesterol.total/Antonietta sterol in HDL [Mass ratio] 2.6 {ratio} Normal [facility].; [facility], [facility]. CO2 [Moles/Vol] 32 mmol/L Normal 20 - 32 mmol/L [facility], [facility].; [facility], [facility]. Creatinine [Mass/Vol] 0.74 mg/dL Normal 0.60 - 0.93 mg/dL [facility], [facility].; [facility], [facility]. GFR/1.73 sq M.predicted among blacks MDRD (S/P/Bld) [Vol rate/Area] 94 {ML/MIN/1.73M2} Normal [facility], [facility].; [facility], [facility]. GFR/1.73 sq M.predicted MDRD (S/P/Bld) [Vol rate/Area] 81 {ML/MIN/1.73M2} Normal [facility], [facility].; [facility], [facility]. Globulin (S) [Mass/Vol] 2.8 g/dL Normal 1.9 - 3.7 g/dL [facility], [facility].; [facility], [facility]. Glucose [Mass/Vol] 94 mg/dL Normal 65 - 99 mg/dL [facility], [facility].; [place] [employer] [facility], [facility]. Potassium [Moles/Vol] 4.0 mmol/L Normal 3.5 - 5.3 mmol/L [facility], [facility].; [facility], [facility]. Protein [Mass/Vol] 7.2 g/dL Normal 6.1 - 8.1 g/dL [facility], [facility].; [facility], [facility]. Sodium [Moles/Vol] 141 mmol/L Normal 135 - 146 mmol/L [facility], [facility].; [facility], [facility]. Triglyceride [Mass/Vol] 77 mg/dL Normal H [facility], [facility].; [place] [employer] [facility], [facility]. Urea nitrogen [Mass/Vol] 15 mg/dL Normal 7 - 25 mg/dL [facility], [facility].; [facility], [facility]. Urea nitrogen/Creatinine [Mass ratio] 19.7 mg/mg Normal 6 - 22 [facility].; [place] [employer]. Laboratory - Hematology and Cell countson 12-22-2018 Basophils (Bld) [#/Vol] 60 {Cells}/uL Normal 0 - 200 {Cells}/uL [facility].; [place] [employer], [employer]. Basophils/100 WBC (Bld) 0.7 % Normal 0 - 1 % [facility].; [facility], [facility] Eosinophils (Bld) [#/Vol] 140 {Cells}/uL Normal 15 - 500 {Cells}/uL [facility].; [place] [employer], [employer] Eosinophils/100 WBC (Bld) 1.7 % Normal 0 - 4 % [facility].; [place] [employer], [employer]. Erythrocyte distribution width (RBC) [Ratio] 12.9 % Normal 11.0 - 15.0 % [facility], [facility].; [place] [employer], [employer]. Hematocrit (Bld) [Volume fraction] 37.8 % Normal 35.0 - 45.0 % [facility].; [employer], [employer]. Hemoglobin (Bld) [Mass/Vol] 12.3 g/dL Normal 11.7 - 15.5 g/dL [facility].; [place] [employer], [employer]. Lymphocytes (Bld) [#/Vol] 2040 {Cells}/uL Normal 850 - 3900 {Cells}/uL [place] [employer] [facility].; [place] [employer], [employer]. Lymphocytes/100 WBC (Bld) 25.0 % Normal 12 - 47 % [place] [employer].; [employer], [employer]. MCH (RBC) [Entitic mass] 30.1 pg Normal 27.0 - 33.0 PG [place] [employer] [facility].; [employer], [employer]. MCHC (RBC) [Mass/Vol] 32.5 g/dL Normal 32.0 - 36.0 g/dL [place] [employer] [facility], [facility].; [place] [employer], [employer]. MCV (RBC) [Entitic vol] 92.6 fL Normal 80.0 - 100.0 fL [place] [employer], [employer].; [employer], [employer]. Monocytes (Bld) [#/Vol] 630 {Cells}/uL Normal 20 0 - 950 {Cells}/uL [facility].; [place] [employer] [facility]. Monocytes/100 WBC (Bld) 7.7 % Normal 4 - 12 % [facility].; [facility], [facility]. Neutrophils (Bld) [#/Vol] 5260 {Cells}/uL Normal 1500 - 7800 {Cells}/uL [facility], [facility].; [place] [employer], [facility]. Neutrophils/100 WBC (Bld) 64.9 % Normal 40 - 75 % [facility].; [place] [employer], [facility]. Platelet mean volume (Bld) [Entitic vol] 10.7 fL Normal 7.5 - 12.5 fL [facility], [facility].; [facility] [employer], [facility]. Platelets (Bld) [#/Vol] 264 10*3/uL Normal 140 - 400 10*3/uL [facility], [facility].; [place] [employer], [employer]. RBC (Bld) [#/Vol] 4.08 10*6/uL Normal 3.80 - 5.1 0 10*6/uL [facility] [place] [employer], [employer]. WBC (Bld) [#/Vol] 8.2 10*3/uL Normal 3.8 - 10.8 10*3/uL [place] [employer].; [place] [employer], [employer]. Laboratory - Chemistry and C hemistry - challengeon 12-14-2017 Calcium [Mass/Vol] 10.0 mg/dL Normal 8.6 - 10. 4 mg/dL [facility], [facility].; [place] [employer], [employer]. Chloride [Moles/Vol] 104 mmol/L Normal 98 - 11 0 mmol/L [facility], [facility].; [place] [employer], [employer]. Cholesterol [Mass/Vol] 151 mg/dL Normal [facility].; [place] [employer], [facility] Cholesterol in HDL [Mass/Vol] 62 mg/dL Normal [facility], [facility].; [place] [employer], [employer]. Cholesterol in LDL [Mass/Vol] 75 mg/dL Normal 0 - 100 mg/dL [facility], [facility].; [place] [employer], [employer]. Cholesterol non HDL [Mass/Vol] 89 mg/dL Normal [facility] [place] [employer], [facility]. Cholesterol.total/Antoniet[place] sterol in HDL [Mass ratio] 2.4 {ratio} Normal [facility].; [facility], [facility] CO2 [Moles/Vol] 30 mmol/L Normal 20 - 32 mmol/L [facility].; [facility], [facility]. Creatinine [Mass/Vol] 0.75 mg/dL Normal 0.60 - 0.93 mg/dL [facility].; [facility], [facility]. GFR/1.73 sq M.predicted among blacks MDRD (S/P/Bld) [Vol rate/Area] 93 {ML/MIN/1.73M2} Normal [facility].; [facility], [facility]. GFR/1.73 sq M.predicted MDRD (S/P/Bld) [Vol rate/Area] 80 {ML/MIN/1.73M2} Normal [facility], [facility].; [place] [employer] [facility], [facility]. Glucose [Mass/Vol] 92 mg/dL Normal 65 - 99 mg/dL [facility].; [place] [employer] [facility], [facility]. Potassium [Moles/Vol] 4.3 mmol/L Normal 3.5 - 5.3 mmol/L [facility].; [place] [employer] [facility], [facility]. Sodium [Moles/Vol] 141 mmol/L Normal 135 - 146 mmol/L [facility], [facility].; [place] [employer] [facility], [facility]. Triglyceride [Mass/Vol] 62 mg/dL Normal [facility].; [place] [employer] [facility], [facility]. TSH Qn 2.12 m[IU]/L Normal 0.40 - 4.50 {mIU/L} [facility].; [place] [employer] [facility], [facility]. Urea nitrogen [Mass/Vol] 16 mg/dL Normal 7 - 25 mg/dL [facility].; [place] [employer], [facility]. Urea nitrogen/Creatinine [Mass ratio] 21.9 mg/mg Normal 6 - 22 [facility].; [place] [employer], [facility]. Laboratory - Hematology and Cell countson 12-14-2017 Basophils (Bld) [#/Vol] 40 {Cells}/uL Normal 0 - 200 {Cells}/uL [facility] [place] [employer], [facility]. Basophils/100 WBC (Bld) 1 % Normal 0 - 1 % [facility].; [facility], [facility]. Eosinophils (Bld) [#/Vol] 210 {Cells}/uL Normal 15 - 500 {Cells}/uL [facility], [facility].; [place] [employer], [facility]. Eosinophils/100 WBC (Bld) 3 % Normal 0 - 4 % [facility].; [place] [employer], [facility]. Erythrocyte distribution width (RBC) [Ratio] 14.3 % Normal 11.0 - 15.0 % [facility].; [place] [employer], [facility]. Hematocrit (Bld) [Volume fraction] 36.0 % Normal 35.0 - 45.0 % [facility], [facility].; [place] [employer] [facility], [facility]. Hemoglobin (Bld) [Mass/Vol] 11.9 g/dL Normal 11.7 - 15.5 g/dL [facility].; [place] [employer] [facility], [facility]. Lymphocytes (Bld) [#/Vol] 1890 {Cells}/uL Normal 850 - 3900 {Cells}/uL [facility].; [place] [employer], [employer]. Lymphocytes/100 WBC (Bld) 27 % Normal 12 - 47 % [facility].; [place] [employer], [facility]. MCH (RBC) [Entitic mass] 30.2 pg Normal 27.0 - 33.0 PG [place] [employer], [facility].; [place] [employer], [facility]. MCHC (RBC) [Mass/Vol] 32.9 g/dL Normal 32.0 - 36.0 g/dL [facility].; [employer], [employer]. MCV (RBC) [Entitic vol] 91.6 fL Normal 80.0 - 100.0 fL [place] [employer] [facility], [facility].; [employer], [facility]. Monocytes (Bld) [#/Vol] 610 {Cells}/uL Normal 20 0 - 950 {Cells}/uL [place] [employer] [facility].; [employer] Monocytes/100 WBC (Bld) 9 % Normal 4 - 12 % H [facility].; [place] [employer], [facility]. Neutrophils (Bld) [#/Vol] 4250 {Cells}/uL Normal 1500 - 7800 {Cells}/uL [facility].; [facility] Neutrophils/100 WBC (Bld) 61 % Normal 40 - 75 % [facility].; [facility], [facility] Platelet mean volume (Bld) [Entitic vol] 8.9 fL Normal 7.5 - 12.5 fL [facility].; [facility], [facility] Platelets (Bld) [#/Vol] 241 10*3/uL Normal 140 - 400 10*3/uL [facility].; [facility]. RBC (Bld) [#/Vol] 3.93 10*6/uL Normal 3.80 - 5.1 0 10*6/uL [facility].; [facility], [facility]. WBC (Bld) [#/Vol] 7.0 10*3/uL Normal 3.8 - 10.8 10*3/uL [facility].; [place] [employer], [facility]. Laboratory - Cytologyon 08-08 Microscopic observation Cyto stain Nom (Cvx) Normal [facility].; [place] [employer], [facility] Laboratory - Chemistry and C hemistry - challengeon 12-22-2016 Hemoglobin.gastrointest inal Ql (Stl) Negative Normal [facility].; [place] [employer], [facility]. Laboratory - Chemistry and C hemistry - challengeon 12-13-2016 Calcium [Mass/Vol] 9.7 mg/dL Normal 8.6 - 10. 4 mg/dL [facility], [facility].; [place] [employer], [facility]. Chloride [Moles/Vol] 103 mmol/L Normal 98 - 11 0 mmol/L [facility].; [place] [employer], [facility]. Cholesterol [Mass/Vol] 172 mg/dL Normal [facility].; [facility] [employer], [facility]. Cholesterol in HDL [Mass/Vol] 58 mg/dL Normal [facility] [employer], [facility].; [place] [employer], [facility]. Cholesterol in LDL [Mass/Vol] 95 mg/dL Normal 0 - 100 mg/dL [facility].; [place] [employer], [facility]. Cholesterol non HDL [Mass/Vol] 113 mg/dL Normal [facility].; [facility]. Cholesterol.total/Anton[place] sterol in HDL [Mass ratio] 3.0 {ratio} Normal [facility].; [facility], [facility]. CO2 [Moles/Vol] 33 mmol/L Abnormal 20 - 31 mmol/L [facility].; [facility], [facility] Creatinine [Mass/Vol] 0.75 mg/dL Normal 0.60 - 0.93 mg/dL [facility].; [facility], [facility]. GFR/1.73 sq M.predicted among blacks MDRD (S/P/Bld) [Vol rate/Area] 94 {ML/MIN/1.73M2} Normal [facility].; [facility], [facility]. GFR/1.73 sq M.predicted MDRD (S/P/Bld) [Vol rate/Area] 81 {ML/MIN/1.73M2} Normal [facility].; [facility], [facility]. Glucose [Mass/Vol] 95 mg/dL Normal 65 - 99 mg/dL [facility].; [facility], [facility]. Potassium [Moles/Vol] 4.3 mmol/L Normal 3.5 - 5.3 mmol/L [facility].; [facility], [facility]. Sodium [Moles/Vol] 142 mmol/L Normal 135 - 146 mmol/L [facility], [facility].; [place] [employer] [facility], [facility]. Triglyceride [Mass/Vol] 93 mg/dL Normal [facility] [facility].; [place] [employer] [facility], [facility]. TSH Qn 3.16 m[IU]/L Normal 0.40 - 4.50 {mIU/L} [facility].; [place] [employer] [facility], [facility]. Urea nitrogen [Mass/Vol] 12 mg/dL Normal 7 - 25 mg/dL [facility].; [place] [employer] [facility], [facility]. Urea nitrogen/Creatinine [Mass ratio] 16.1 mg/mg Normal 6 - 22 [facility].; [place] [employer], [facility]. Laboratory - Hematology and Cell countson 12-13-2016 Basophils (Bld) [#/Vol] 10 {Cells}/uL Normal 0 - 200 {Cells}/uL [facility].; [place] [employer]. Basophils/100 WBC (Bld) 0 % Normal 0 - 1 % [facility].; [facility], [facility]. Eosinophils (Bld) [#/Vol] 210 {Cells}/uL Normal 15 - 500 {Cells}/uL [facility].; [place] [employer], [employer]. Eosinophils/100 WBC (Bld) 3 % Normal 0 - 4 % [facility].; [place] [employer] [facility]. Erythrocyte distribution width (RBC) [Ratio] 13.4 % Normal 11.0 - 15.0 % [facility].; [place] [employer], [employer]. Hematocrit (Bld) [Volume fraction] 38.0 % Normal 35.0 - 45.0 % [facility].; [place] [employer], [employer]. Hemoglobin (Bld) [Mass/Vol] 12.2 g/dL Normal 11.7 - 15.5 g/dL [facility].; [place] [employer], [facility]. Lymphocytes (Bld) [#/Vol] 1830 {Cells}/uL Normal 850 - 3900 {Cells}/uL [facility].; [place], [employer]. Lymphocytes/100 WBC (Bld) 27 % Normal 12 - 47 % [place] [employer] [facility].; [place] [employer], [facility]. MCH (RBC) [Entitic mass] 29.5 pg Normal 27.0 - 33.0 PG [place] [employer] [facility].; [place] [employer], [facility]. MCHC (RBC) [Mass/Vol] 32.3 g/dL Normal 32.0 - 36.0 g/dL [facility].; [place] [employer], [facility]. MCV (RBC) [Entitic vol] 91.3 fL Normal 80.0 - 100.0 fL [place] [employer].; [place], [employer]. Monocytes (Bld) [#/Vol] 310 {Cells}/uL Normal 20 0 - 950 {Cells}/uL [place] [employer].; [employer] Monocytes/100 WBC (Bld) 5 % Normal 4 - 12 % [facility] [place], [facility]. Neutrophils (Bld) [#/Vol] 4310 {Cells}/uL Normal 1500 - 7800 {Cells}/uL [facility].; [place] [employer], [facility]. Neutrophils/100 WBC (Bld) 65 % Normal 40 - 75 % [facility], [facility].; [place] [employer] Platelet mean volume (Bld) [Entitic vol] 8.8 fL Normal 7.5 - 12.5 fL [facility], [facility].; [place] [employer], [facility]. Platelets (Bld) [#/Vol] 246 10*3/uL Normal 140 - 400 10*3/uL [facility], [facility].; [place] [employer], [facility]. RBC (Bld) [#/Vol] 4.16 10*6/uL Normal 3.80 - 5.1 0 10*6/uL [facility], [facility].; [place] [employer] WBC (Bld) [#/Vol] 6.7 10*3/uL Normal 3.8 - 10.8 10*3/uL [facility], [facility].; [place] [employer], [facility]. Laboratory - Chemistry and C hemistry - challengeon 12-22-2015 Hemoglobin.gastrointest inal Ql (Stl) Negative Normal [facility].; [place] [employer], [facility]. Laboratory - Chemistry and C hemistry - challengeon 12-03-2015 Calcium [Mass/Vol] 9.9 mg/dL Normal 8.6 - 10. 4 mg/dL [facility], [facility].; [place] [employer], [facility]. Chloride [Moles/Vol] 104 mmol/L Normal 98 - 11 0 mmol/L [facility], [facility].; [place] [employer], [facility]. Cholesterol [Mass/Vol] 156 mg/dL Normal 125 - 200 mg/dL [facility], [facility].; [place] [employer], [facility]. Cholesterol in HDL [Mass/Vol] 50 mg/dL Normal [facility], [facility].; [place] [employer] [facility], [facility]. Cholesterol in LDL [Mass/Vol] 88 mg/dL Normal [facility], [facility].; [place] [employer] Cholesterol non HDL [Mass/Vol] 106 mg/dL Normal [facility], [facility].; [place] [employer], [facility]. Cholesterol.total/[place] sterol in HDL [Mass ratio] 3.1 {ratio} Normal [facility], [facility].; [place] [employer] [facility], [facility] CO2 [Moles/Vol] 30 mmol/L Normal 20 - 31 mmol/L [facility].; [facility], [facility]. Creatinine [Mass/Vol] 0.77 mg/dL Normal 0.50 - 0.99 mg/dL [facility], [facility].; [facility], [facility]. GFR/1.73 sq M.predicted among blacks MDRD (S/P/Bld) [Vol rate/Area] 92 {ML/MIN/1.73M2} Normal [facility], [facility].; [facility], [facility]. GFR/1.73 sq M.predicted MDRD (S/P/Bld) [Vol rate/Area] 79 {ML/MIN/1.73M2} Normal [facility], [facility].; [place] [employer] [facility], [facility]. Glucose [Mass/Vol] 95 mg/dL Normal 65 - 99 mg/dL [facility], [facility].; [place] [employer], [facility]. Potassium [Moles/Vol] 3.9 mmol/L Normal 3.5 - 5.3 mmol/L [facility].; [place] [employer], [facility]. Sodium [Moles/Vol] 141 mmol/L Normal 135 - 146 mmol/L [facility], [facility].; [place] [employer], [facility]. Triglyceride [Mass/Vol] 92 mg/dL Normal [facility].; [place] [employer] [facility], [facility] Urea nitrogen [Mass/Vol] 12 mg/dL Normal 7 - 25 mg/dL [facility].; [place] [employer], [facility]. Urea nitrogen/Creatinine [Mass ratio] 16.1 mg/mg Normal 6 - 22 [facility].; [place] [employer], [facility]. Laboratory - Hematology and Cell countson 12-03-2015 Basophils (Bld) [#/Vol] 40 {Cells}/uL Normal 0 - 200 {Cells}/uL [facility].; [place] [employer] Basophils/100 WBC (Bld) 1 % Normal 0 - 1 % [facility].; [place], [facility] Eosinophils (Bld) [#/Vol] 240 {Cells}/uL Normal 15 - 500 {Cells}/uL [facility].; [place] [employer] [facility]. Eosinophils/100 WBC (Bld) 4 % Normal 0 - 4 % [facility].; [place] [employer], [facility]. Erythrocyte distribution width (RBC) [Ratio] 14.0 % Normal 11.0 - 15.0 % [facility], [facility].; [place] [employer], [employer]. Hematocrit (Bld) [Volume fraction] 36.0 % Normal 35.0 - 45.0 % [facility], [facility].; [place] [employer], [facility]. Hemoglobin (Bld) [Mass/Vol] 11.9 g/dL Normal 11.7 - 15.5 g/dL [facility].; [place] [employer], [facility]. Lymphocytes (Bld) [#/Vol] 2020 {Cells}/uL Normal 850 - 3900 {Cells}/uL [facility] [employer], [facility].; [place] [employer], [employer]. Lymphocytes/100 WBC (Bld) 36 % Normal 12 - 47 % [place] [employer] [facility].; [place] [employer], [facility]. MCH (RBC) [Entitic mass] 29.2 pg Normal 27.0 - 33.0 PG [place] [employer] [facility].; [place] [employer], [employer]. MCHC (RBC) [Mass/Vol] 33.1 g/dL Normal 32.0 - 36.0 g/dL [place] [employer], [facility].; [place] [employer] MCV (RBC) [Entitic vol] 88.2 fL Normal 80.0 - 100.0 fL [place] [employer] [facility].; [place] [employer] Monocytes (Bld) [#/Vol] 360 {Cells}/uL Normal 20 0 - 950 {Cells}/uL [place] [employer] [facility].; [employer] Monocytes/100 WBC (Bld) 6 % Normal 4 - 12 % [facility].; [place] [employer], [facility]. Neutrophils (Bld) [#/Vol] 3010 {Cells}/uL Normal 1500 - 7800 {Cells}/uL [place] [employer].; [employer] Neutrophils/100 WBC (Bld) 53 % Normal 40 - 75 % [place] [employer].; [employer], [facility]. Platelet mean volume (Bld) [Entitic vol] 9.2 fL Normal 7.5 - 11.5 fL [facility].; [facility], [facility]. Platelets (Bld) [#/Vol] 239 10*3/uL Normal 140 - 400 10*3/uL [facility].; [place] [employer], [facility]. RBC (Bld) [#/Vol] 4.09 10*6/uL Normal 3.80 - 5.1 0 10*6/uL [facility].; [place] [employer] [facility], [facility]. WBC (Bld) [#/Vol] 5.7 10*3/uL Normal 3.8 - 10.8 10*3/uL [place] [employer], [employer].; [place] [employer], [facility]. Laboratory - Chemistry and C hemistry - challengeon 11-28-2014 Hemoglobin.gastrointest inal Ql (Stl) Negative Normal [facility].; [place] [employer], [facility]. Laboratory - Chemistry and C hemistry - challengeon 11-21-2014 Albumin [Mass/Vol] 4.4 g/dL Normal 3.6 - 5.1 g/dL [facility].; [place] [employer], [facility]. Albumin/Globulin [Mass ratio] 1.3 {ratio} Normal 1.0 - 2.5 [facility].; [place] [employer] [facility], [facility]. ALP [Catalytic activity/Vol] 77 U/L Normal 33 - 130 U/L [facility].; [place] [employer], [facility]. ALT [Catalytic activity/Vol] 10 U/L Normal 6 - 29 U/L [facility].; [place] [employer], [facility]. AST [Catalytic activity/Vol] 16 U/L Normal 10 - 35 U/L [facility], [facility].; [place] [employer], [facility]. Bilirubin [Mass/Vol] 0.9 mg/dL Normal 0.2 - 1 .2 mg/dL [facility].; [place] [employer], [facility]. Calcium [Mass/Vol] 10.4 mg/dL Normal 8.6 - 10. 4 mg/dL [facility], [facility].; [place] [employer], [facility]. Chloride [Moles/Vol] 103 mmol/L Normal 98 - 11 0 mmol/L [facility].; [facility], [facility]. Cholesterol [Mass/Vol] 173 mg/dL Normal 125 - 200 mg/dL [facility].; [facility], [facility]. Cholesterol in HDL [Mass/Vol] 54 mg/dL Normal [facility].; [facility], [facility]. Cholesterol in LDL [Mass/Vol] 99 mg/dL Normal [facility].; [facility], [facility]. Cholesterol non HDL [Mass/Vol] 120 mg/dL Normal [facility].; [facility], [facility]. Cholesterol.total/[place] sterol in HDL [Mass ratio] 3.2 {ratio} Normal [facility].; [facility], [facility]. CO2 [Moles/Vol] 28 mmol/L Normal 19 - 30 mmol/L [facility], [facility].; [place] [employer] [facility], [facility]. Creatinine [Mass/Vol] 0.81 mg/dL Normal 0.50 - 0.99 mg/dL [facility], [facility].; [facility], [facility]. GFR/1.73 sq M.predicted among blacks MDRD (S/P/Bld) [Vol rate/Area] 87 {ML/MIN/1.73M2} Normal [facility], [facility].; [facility], [facility]. GFR/1.73 sq M.predicted MDRD (S/P/Bld) [Vol rate/Area] 75 {ML/MIN/1.73M2} Normal [facility], [facility].; [place] [employer] [facility], [facility]. Globulin (S) [Mass/Vol] 3.4 g/dL Normal 1.9 - 3.7 g/dL [facility], [facility].; [place] [employer] [facility], [facility] Glucose [Mass/Vol] 94 mg/dL Normal 65 - 99 mg/dL [facility], [facility].; [place] [employer] [facility], [facility]. Potassium [Moles/Vol] 4.3 mmol/L Normal 3.5 - 5.3 mmol/L [facility], [facility].; [place] [employer] [facility], [facility]. Protein [Mass/Vol] 7.8 g/dL Normal 6.1 - 8.1 g/dL [facility].; [facility], [facility]. Sodium [Moles/Vol] 141 mmol/L Normal 135 - 146 mmol/L [place] [employer] [facility].; [email or web address]. Triglyceride [Mass/Vol] 102 mg/dL Normal [facility] [place] [employer], [employer]. TSH Qn 3.01 m[IU]/L Normal 0.40 - 4.50 {mIU/L} [place] [employer] [facility].; [employer], [employer]. Urea nitrogen [Mass/Vol] 13 mg/dL Normal 7 - 25 mg/dL [place] [employer] [facility].; [employer], [employer]. Urea nitrogen/Creatinine [Mass ratio] 15.8 mg/mg Normal 6 - 22 [place] [employer].; [employer], [employer]. Laboratory - Hematology and Cell countson 11-21-2014 Basophils (Bld) [#/Vol] 60 {Cells}/uL Normal 0 - 200 {Cells}/uL [place] [employer].; [employer], [employer]. Basophils/100 WBC (Bld) 1 % Normal 0 - 1 % H [facility] [employer] [facility].; [email or web address]. Eosinophils (Bld) [#/Vol] 250 {Cells}/uL Normal 15 - 500 {Cells}/uL [email or web address].; [email or web address]. Eosinophils/100 WBC (Bld) 5 % Abnormal 0 - 4 % [place] [employer].; [employer], [employer]. Erythrocyte distribution width (RBC) [Ratio] 13.7 % Normal 11.0 - 15.0 % [email or web address].; [employer], [employer]. Hematocrit (Bld) [Volume fraction] 38.5 % Normal 35.0 - 45.0 % [place] [employer].; [employer], [employer]. Hemoglobin (Bld) [Mass/Vol] 12.8 g/dL Normal 11.7 - 15.5 g/dL [email or web address].; [employer], [employer]. Lymphocytes (Bld) [#/Vol] 2050 {Cells}/uL Normal 850 - 3900 {Cells}/uL [email or web address].; [employer], [employer]. Lymphocytes/100 WBC (Bld) 38 % Normal 12 - 47 % [email or web address].; [email or web address]. MCH (RBC) [Entitic mass] 29.4 pg Normal 27.0 - 33.0 PG [facility].; [place] [employer], [facility]. MCHC (RBC) [Mass/Vol] 33.2 g/dL Normal 32.0 - 36.0 g/dL [facility].; [place] [employer], [employer]. MCV (RBC) [Entitic vol] 88.4 fL Normal 80.0 - 100.0 fL [facility].; [facility], [facility]. Monocytes (Bld) [#/Vol] 310 {Cells}/uL Normal 20 0 - 950 {Cells}/uL [facility].; [place] [employer] [facility], [facility]. Monocytes/100 WBC (Bld) 6 % Normal 4 - 12 % [facility].; [place] [employer] [facility], [facility]. Neutrophils (Bld) [#/Vol] 2770 {Cells}/uL Normal 1500 - 7800 {Cells}/uL [facility].; [place] [employer], [employer]. Neutrophils/100 WBC (Bld) 51 % Normal 40 - 75 % [facility].; [place] [employer] [facility]. Platelet mean volume (Bld) [Entitic vol] 9.0 fL Normal 7.5 - 11.5 fL [facility].; [place] [employer], [facility]. Platelets (Bld) [#/Vol] 237 10*3/uL Normal 140 - 400 10*3/uL [facility].; [place] [employer], [employer]. RBC (Bld) [#/Vol] 4.35 10*6/uL Normal 3.80 - 5.1 0 10*6/uL [facility].; [place] [employer], [facility]. WBC (Bld) [#/Vol] 5.4 10*3/uL Normal 3.8 - 10.8 10*3/uL [place] [employer].; [place] [employer], [employer]. Laboratory - Chemistry and C hemistry - challengeon 11-22-2013 Bilirubin Ql (U) Negative Normal [facility].; [place] [employer] Hemoglobin.gastrointest inal Ql (Stl) Negative Normal [facility].; [email or web address]. Ketones Ql (U) Negative Normal [facility] [employer]. pH (U) 6.5 [pH] Normal [place] [employer].; [employer]. Specific gravity (U) [Rel density] <=1.005 Normal [place] [employer].; [employer]. Urobilinogen Qn (U) 0.2 mg/dL Normal [facility].; [email or web address]. Laboratory - Hematology and Cell countson 11-22-2013 Hemoglobin Ql (U) small Abnormal [place] [employer].; [employer]. Laboratory - Specimen inform ationon 11-22-2013 Appearance (U) Clear Normal [facility] [email or web address]. Color (U) yellow Normal [place] [employer].; [employer]. Laboratory - Urinalysison Glucose Test strip (U) [Mass/Vol] Negative Normal [place] [employer].; [employer]. Leukocyte esterase Test strip Ql (U) moderate Abnormal [place] [employer].; [employer]. Nitrite Ql (U) Negative Normal [facility] [employer].; [email or web address]. Protein Ql (U) Negative Normal [facility] [employer].; [employer]. Laboratory - Chemistry and C hemistry - challengeon 11-14-2013 Albumin [Mass/Vol] 4.2 g/dL Normal 3.6 - 5.1 g/dL [place] [employer].; [employer]. Albumin/Globulin [Mass ratio] 1.5 {ratio} Normal 1.0 - 2.5 [place] [employer].; [employer]. ALP [Catalytic activity/Vol] 77 U/L Normal 33 - 130 U/L [place] [employer].; [email or web address]. ALT [Catalytic activity/Vol] 9 U/L Normal 6 - 29 U/L [place] [employer].; [employer]. AST [Catalytic activity/Vol] 16 U/L Normal 10 - 35 U/L [place] [employer].; [place], [facility]. Bilirubin [Mass/Vol] 0.7 mg/dL Normal 0.2 - 1 .2 mg/dL [facility].; [facility], [facility]. Calcium [Mass/Vol] 9.7 mg/dL Normal 8.6 - 10. 4 mg/dL [facility], [facility].; [place] [employer] [facility], [facility]. Chloride [Moles/Vol] 105 mmol/L Normal 98 - 11 0 mmol/L [facility].; [facility], [facility]. Cholesterol [Mass/Vol] 163 mg/dL Normal 125 - 200 mg/dL [facility], [facility].; [place] [employer] [facility], [facility] Cholesterol in HDL [Mass/Vol] 47 mg/dL Normal [facility].; [facility], [facility]. Cholesterol in LDL [Mass/Vol] 94 mg/dL Normal [facility], [facility].; [place] [employer], [facility]. Cholesterol non HDL [Mass/Vol] 116 mg/dL Normal [facility].; [place] [employer] [facility], [facility]. Cholesterol.total/[place] sterol in HDL [Mass ratio] 3.5 {ratio} Normal [facility].; [place] [employer], [employer]. CO2 [Moles/Vol] 29 mmol/L Normal 19 - 30 mmol/L [facility].; [place] [employer] [facility], [facility]. Creatinine [Mass/Vol] 0.79 mg/dL Normal 0.50 - 0.99 mg/dL [facility], [facility].; [place] [employer] [facility], [facility]. GFR/1.73 sq M.predicted among blacks MDRD (S/P/Bld) [Vol rate/Area] 90 {ML/MIN/1.73M2} Normal [facility].; [place] [employer] [facility], [facility]. GFR/1.73 sq M.predicted MDRD (S/P/Bld) [Vol rate/Area] 78 {ML/MIN/1.73M2} Normal [facility], [facility].; [place] [employer] Globulin (S) [Mass/Vol] 2.8 g/dL Normal 1.9 - 3.7 g/dL [facility].; [place] [employer] Glucose [Mass/Vol] 95 mg/dL Normal 65 - 99 mg/dL [facility].; [facility], [facility] Potassium [Moles/Vol] 4.1 mmol/L Normal 3.5 - 5.3 mmol/L [facility].; [facility], [facility]. Protein [Mass/Vol] 7.0 g/dL Normal 6.1 - 8.1 g/dL [facility], [facility].; [facility], [facility]. Sodium [Moles/Vol] 141 mmol/L Normal 135 - 146 mmol/L [facility].; [place] [employer] [facility], [facility]. Triglyceride [Mass/Vol] 111 mg/dL Normal [facility].; [place] [employer] [facility], [facility]. Urea nitrogen [Mass/Vol] 9 mg/dL Normal 7 - 25 mg/dL [facility].; [place] [employer], [facility]. Urea nitrogen/Creatinine [Mass ratio] 11.4 mg/mg Normal 6 - 22 [facility].; [place] [employer], [facility]. Laboratory - Hematology and Cell countson 11-14-2013 Basophils (Bld) [#/Vol] 40 {Cells}/uL Normal 0 - 200 {Cells}/uL [facility].; [place] [employer], [facility]. Basophils/100 WBC (Bld) 1 % Normal [facility].; [place] [employer] [facility], [facility]. Eosinophils (Bld) [#/Vol] 420 {Cells}/uL Normal 15 - 500 {Cells}/uL [facility].; [place] [employer], [facility]. Eosinophils/100 WBC (Bld) 7 % Normal [facility].; [place], [facility]. Erythrocyte distribution width (RBC) [Ratio] 14.1 % Normal 11.0 - 15.0 % [facility].; [employer], [employer]. Hematocrit (Bld) [Volume fraction] 36.8 % Normal 35.0 - 45.0 % [facility], [facility].; [place] [employer], [employer] Hemoglobin (Bld) [Mass/Vol] 12.2 g/dL Normal 11.7 - 15.5 g/dL [facility], [facility].; [place], [facility]. Lymphocytes (Bld) [#/Vol] 2370 {Cells}/uL Normal 850 - 3900 {Cells}/uL [facility].; [place] [employer]. Lymphocytes/100 WBC (Bld) 39 % Normal [facility].; [place], [facility]. MCH (RBC) [Entitic mass] 29.6 pg Normal 27.0 - 33.0 PG [facility].; [place], [facility]. MCHC (RBC) [Mass/Vol] 33.1 g/dL Normal 32.0 - 36.0 g/dL [facility].; [place] [employer], [employer]. MCV (RBC) [Entitic vol] 89.5 fL Normal 80.0 - 100.0 fL [facility].; [place] [employer] [facility], [facility]. Monocytes (Bld) [#/Vol] 340 {Cells}/uL Normal 20 0 - 950 {Cells}/uL [facility].; [place], [employer]. Monocytes/100 WBC (Bld) 6 % Normal [facility].; [place] [employer] [facility]. Neutrophils (Bld) [#/Vol] 2880 {Cells}/uL Normal 1500 - 7800 {Cells}/uL [facility].; [place], [employer]. Neutrophils/100 WBC (Bld) 48 % Normal [facility].; [place], [facility]. Platelets (Bld) [#/Vol] 242 10*3/uL Normal 140 - 400 10*3/uL [facility].; [place], [facility]. RBC (Bld) [#/Vol] 4.11 10*6/uL Normal 3.80 - 5.1 0 10*6/uL [facility].; [place], [facility]. WBC (Bld) [#/Vol] 6.1 10*3/uL Normal 3.8 - 10.8 10*3/uL [place], [employer].; [place], [facility]. Laboratory - Chemistry and C hemistry - challengeon 11-02-2012 Hemoglobin.gastrointest inal Ql (Stl) Negative Normal [place] [employer] [facility].; [place], [employer]. Laboratory - Chemistry and C hemistry - challengeon 10-23-2012 Calcium [Mass/Vol] 9.9 mg/dL Normal 8.6 - 10. 4 mg/dL [facility], [facility].; [facility], [facility]. Chloride [Moles/Vol] 102 mmol/L Normal 98 - 11 0 mmol/L [facility], [facility].; [place] [employer] Cholesterol [Mass/Vol] 165 mg/dL Normal 125 - 200 mg/dL [facility], [facility].; [facility], [facility]. Cholesterol in HDL [Mass/Vol] 54 mg/dL Normal [facility], [facility].; [place] [employer], [employer] Cholesterol in LDL [Mass/Vol] 92 mg/dL Normal [facility], [facility].; [place] [employer], [employer]. Cholesterol non HDL [Mass/Vol] 111 mg/dL Normal [facility], [facility].; [facility], [facility]. Cholesterol.total/Antonietta sterol in HDL [Mass ratio] 3.1 {ratio} Normal [facility], [facility].; [place] [employer] [facility], [employer]. CO2 [Moles/Vol] 28 mmol/L Normal 19 - 30 mmol/L [facility], [facility].; [place] [employer] Creatinine [Mass/Vol] 0.71 mg/dL Normal 0.50 - 0.99 mg/dL [facility], [facility].; [place] [employer] GFR/1.73 sq M.predicted among blacks MDRD (S/P/Bld) [Vol rate/Area] 104 {ML/MIN/1.73M2} Normal [facility], [facility].; [facility], [facility]. GFR/1.73 sq M.predicted MDRD (S/P/Bld) [Vol rate/Area] 89 {ML/MIN/1.73M2} Normal [place] [employer] [facility], [facility].; [place] [employer] Glucose [Mass/Vol] 83 mg/dL Normal 65 - 99 mg/dL [facility], [facility].; [place] [employer] Potassium [Moles/Vol] 4.2 mmol/L Normal 3.5 - 5.3 mmol/L [facility], [facility].; [place] [employer] Sodium [Moles/Vol] 141 mmol/L Normal 135 - 146 mmol/L [facility], [facility].; [facility], [facility]. Triglyceride [Mass/Vol] 94 mg/dL Normal H [facility].; [place] [employer] [facility]. TSH Qn 4.13 m[IU]/L Normal 0.40 - 4.50 {mIU/L} [facility].; [place] [employer] Urea nitrogen [Mass/Vol] 10 mg/dL Normal 7 - 25 mg/dL [facility].; [place] [employer], [employer] Urea nitrogen/Creatinine [Mass ratio] 13.7 mg/mg Normal 6 - 22 [facility] [employer].; [email or web address]. Laboratory - Hematology and Cell countson 10-23-2012 Basophils (Bld) [#/Vol] 30 {Cells}/uL Normal 0 - 200 {Cells}/uL [place] [employer] [facility].; [employer]. Basophils/100 WBC (Bld) 0 % Normal 0 - 2 % [facility].; [place] [employer] Eosinophils (Bld) [#/Vol] 290 {Cells}/uL Normal 15 - 500 {Cells}/uL [place] [employer].; [email or web address]. Eosinophils/100 WBC (Bld) 5 % Normal 0 - 8 % [place] [employer].; [email or web address]. Erythrocyte distribution width (RBC) [Ratio] 14.1 % Normal 11.0 - 15.0 % [place] [employer] [facility].; [email or web address]. Hematocrit (Bld) [Volume fraction] 39.6 % Normal 35.0 - 45.0 % [place] [employer].; [email or web address]. Hemoglobin (Bld) [Mass/Vol] 12.9 g/dL Normal 11.7 - 15.5 g/dL [place] [employer] [facility].; [place], [employer]. Lymphocytes (Bld) [#/Vol] 2150 {Cells}/uL Normal 850 - 3900 {Cells}/uL [place] [employer].; [employer], [employer]. Lymphocytes/100 WBC (Bld) 34 % Normal 15 - 49 % [employer].; [email or web address]. MCH (RBC) [Entitic mass] 30.0 pg Normal 27.0 - 33.0 PG [facility].; [place], [facility]. MCHC (RBC) [Mass/Vol] 32.5 g/dL Normal 32.0 - 36.0 g/dL [facility].; [place] [employer] [facility], [facility]. MCV (RBC) [Entitic vol] 92.4 fL Normal 80.0 - 100.0 fL [facility], [facility].; [place] [employer] [facility], [facility]. Monocytes (Bld) [#/Vol] 100 {Cells}/uL Abnormal 20 0 - 950 {Cells}/uL [facility].; [place] [employer] Monocytes/100 WBC (Bld) 2 % Normal 0 - 13 % H [facility].; [facility], [facility]. Neutrophils (Bld) [#/Vol] 3800 {Cells}/uL Normal 1500 - 7800 {Cells}/uL [facility], [facility].; [place] [employer], [employer]. Neutrophils/100 WBC (Bld) 60 % Normal 38 - 80 % [facility].; [place], [facility]. Platelets (Bld) [#/Vol] 254 10*3/uL Normal 140 - 400 10*3/uL [facility].; [place] [employer], [employer]. RBC (Bld) [#/Vol] 4.28 10*6/uL Normal 3.80 - 5.1 0 10*6/uL [facility], [facility].; [place], [employer]. WBC (Bld) [#/Vol] 6.4 10*3/uL Normal 3.8 - 10.8 10*3/uL [facility], [facility].; [employer] Laboratory - Chemistry and C hemistry - challengeon 03-16-2012 TSH Qn 3.95 mU/mL Normal 0.35 - 5.5 mU/mL [facility], [facility].; [employer], [employer]. Laboratory - Chemistry and C hemistry - challengeon 09-09-2011 Bilirubin Ql (U) Negative Normal [facility], [facility].; [employer] Ketones Ql (U) Negative Normal [facility].; [employer], [employer] pH (U) 5.5 [pH] Normal 4.6 - 8.0 [place] [employer].; [employer] Specific gravity (U) [Rel density] 1.020 Normal 1.001 - 1.025 [place] [employer]; [email or web address] Laboratory - Hematology and Cell countson 09-09-2011 Hemoglobin Ql (U) Moderate Abnormal [place] [employer] [facility].; [email or web address]. Laboratory - Specimen inform ationon 09-09-2011 Appearance (U) Clear Normal [facility] [employer].; [email or web address] Color (U) yellow Normal [place] [employer]; [employer]. Laboratory - Urinalysison Glucose Test strip (U) [Mass/Vol] Negative Normal [place] [employer].; [email or web address] Leukocyte esterase Test strip Ql (U) small Abnormal [place] [employer].; [email or web address]. Nitrite Ql (U) Negative Normal [facility].; [email or web address]. Protein Ql (U) Negative Normal [facility] [employer].; [email or web address]. No Panel Informationon 09-08 0.2 mg/dL Normal [employer]; [employer]. Laboratory - Chemistry and C hemistry - challengeon 08-23-2011 Albumin [Mass/Vol] 4.5 g/dL Normal 3.5 - 5.0 g/dL [place] [employer].; [email or web address]. Albumin/Globulin [Mass ratio] 1.7 {ratio} Abnormal [employer] [facility].; [email or web address]. ALP [Catalytic activity/Vol] 66 U/L Normal 50 - 136 U/L [email or web address].; [email or web address]. ALT [Catalytic activity/Vol] 11 mmol/L Abnormal 12 - 49 mmol/L [email or web address].; [email or web address]. AST [Catalytic activity/Vol] 17 U/L Normal 15 - 37 U/L [employer].; [email or web address]. Bilirubin [Mass/Vol] 0.7 mg/dL Normal 0.3 - 1 .0 mg/dL [employer].; [facility], [facility]. Calcium [Mass/Vol] 9.8 mg/dL Normal 8.4 - 10. 6 mg/dL [facility].; [facility], [facility] Chloride [Moles/Vol] 105 mmol/L Normal 98 - 11 0 mmol/L [facility], [facility].; [facility], [facility]. Cholesterol [Mass/Vol] 155 mg/dL Normal 0 - 2 00 mg/dL [facility].; [facility], [facility]. Cholesterol in HDL [Mass/Vol] 51 mg/dL Normal 40 - 60 mg/dL [facility].; [facility], [facility]. Cholesterol in LDL [Mass/Vol] 86 mg/dL Normal 50.0 - 130.0 mg/dL [facility].; [facility], [facility] Cholesterol.total/Antonietta sterol in HDL [Mass ratio] 3.0 {ratio} Normal 0 - 5.0 [facility].; [facility], [facility]. CO2 [Moles/Vol] 32.0 {joel/L} Normal 22.0 - 32.0 {joel/L} [facility].; [place] [employer] [facility], [facility]. Creatinine [Mass/Vol] 0.7 mg/dL Normal 0.6 - 1.4 mg/dL [facility].; [facility], [facility]. Globulin (S) [Mass/Vol] 2.6 g/dL Normal 1.5 - 3.8 g/dL [facility], [facility].; [facility], [facility]. Glucose [Mass/Vol] 95 mg/dL Normal 75 - 105 mg/dL [facility], [facility].; [facility], [facility]. Potassium [Moles/Vol] 4.3 mmol/L Normal 3.50 - 5.00 meq/L [facility].; [facility], [facility]. Protein [Mass/Vol] 7.1 g/dL Normal 6.4 - 8.2 g/dL [facility], [facility].; [facility], [facility]. Sodium [Moles/Vol] 141 mmol/L Normal 136 - 145 mmol/L [facility], [facility].; [facility], [facility]. Triglyceride [Mass/Vol] 89 mg/dL Normal 40 - 150 mg/dL [facility] TSH Qn 5.86 mU/mL Abnormal 0.35 - 5.5 mU/mL [facility].; [facility], [facility] Urea nitrogen [Mass/Vol] 11 mg/dL Normal 7.0 - 20.0 mg/dL [facility], [facility].; [facility], [facility] Urea nitrogen/Creatinine [Mass ratio] 16 mg/mg Normal 0 - 30 [facility].; [facility] Laboratory - Hematology and Cell countson 08-23-2011 Basophils/100 WBC (Bld) 0.0 % Normal 0.00 - 0.10 [facility]; [facility], [facility] Basophils/100 WBC (Bld) 0.8 % Normal 0.0 - 2.0 % [facility], [facility]; [facility], [facility] Eosinophils/100 WBC (Bld) 0.30 % Normal 0.00 - 0.50 [facility].; [facility], [facility] Eosinophils/100 WBC (Bld) 5.5 % Normal 0.0 - 6.0 % [facility]; [place] [employer] [facility], [facility] Erythrocyte distribution width (RBC) [Ratio] 13.6 % Normal 12.0 - 15.6 % [facility], [facility].; [place] [employer] [facility], [facility] Hematocrit (Bld) [Volume fraction] 39.6 % Normal 34 - 44 % [facility], [facility].; [facility], [facility] Lymphocytes/100 WBC (Bld) 1.80 % Normal [facility].; [facility], [facility] Lymphocytes/100 WBC (Bld) 30.5 % Normal 20.0 - 45.0 % [facility], [facility].; [place] [employer] [facility], [facility]. MCH (RBC) [Entitic mass] 30 pg Normal 27 - 33 pg [facility], [facility].; [place] [employer] [facility], [employer] MCHC (RBC) [Mass/Vol] 33 g/dL Normal 32 - 36 g/dL [facility], [facility].; [place] [employer] [facility], [facility] MCV (RBC) [Entitic vol] 91 fL Normal 80 - 99 fL [facility]; [facility]. Monocytes/100 WBC (Bld) 0.40 % Normal H [facility].; [facility]. Neutrophils/100 WBC (Bld) 56.4 % Normal 46 - 76 % [facility].; [place] [employer], [employer]. Platelet mean volume (Bld) [Entitic vol] 8.5 fL Normal 6.6 - 10.5 fL [facility].; [facility] [employer], [facility]. Platelets (Bld) [#/Vol] 240 10*9{Cells}/L Normal 150 - 450 10*9{Cells}/ L [facility].; [place] [employer], [employer]. RBC (Bld) [#/Vol] 4.36 10*6/uL Normal 4.10 - 5.3 0 10*6/uL [facility].; [place] [employer], [employer]. WBC (Bld) [#/Vol] 6.1 10*9{Cells}/L Normal 4.5 - 10.8 10*9{Cells}/ L [facility].; [place] [employer] [facility]. No Panel Informationon 08-22 3.40 10*6/uL Normal 1.5 - 7.1 10*6/uL [facility].; [place] [employer], [facility]. 6.8 % Normal 2.0 - 13.0 % [facility].; [place] [employer], [facility]. 13.1 g/dL Normal 11.5 - 14.2 g/dL [facility].; [place] [employer], [employer]. 84 Normal [facility].; [email or web address]. Laboratory - Chemistry and C hemistry - challengeon 02-26-2011 Cholesterol [Mass/Vol] 210 mg/dL Abnormal 0 - 2 00 mg/dL [facility].; [place] [employer], [employer]. Cholesterol in HDL [Mass/Vol] 58 mg/dL Normal 40 - 60 mg/dL [facility], [facility].; [place] [employer], [employer]. Cholesterol in LDL [Mass/Vol] 138 mg/dL Abnormal 50.0 - 130.0 mg/dL [facility].; [place] [employer]. Cholesterol.total/Antonietta sterol in HDL [Mass ratio] 3.6 {ratio} Normal 0 - 5.0 [facility]; [email or web address] Triglyceride [Mass/Vol] 69 mg/dL Normal 40 - 150 mg/dL [facility] [email or web address]. Laboratory - Chemistry and C hemistry - challengeon 08-26-2010 Bilirubin Ql (U) Negative Normal [facility] [email or web address]. Ketones Ql (U) Negative Normal [facility].; [email or web address]. pH (U) 5.0 [pH] Normal 4.6 - 8.0 [place] [employer]; [email or web address]. Specific gravity (U) [Rel density] 1.020 Normal 1.001 - 1.025 [facility] Center[facility]; [email or web address]. Laboratory - Hematology and Cell countson 08-26-2010 Hemoglobin Ql (U) Abnormal [place] [employer].; [email or web address]. Laboratory - Specimen inform ationon 08-26-2010 Appearance (U) clear Normal [facility] [employer]; [email or web address]. Color (U) yellow Normal [place] [employer]; [email or web address]. Laboratory - Urinalysison Glucose Test strip (U) [Mass/Vol] Negative Normal [facility].; [email or web address]. Leukocyte esterase Test strip Ql (U) large Abnormal [place] [employer]; [email or web address]. Nitrite Ql (U) Negative Normal [facility] [employer].; [email or web address]. Protein Ql (U) Negative Normal [facility].; [email or web address]. No Panel Informationon 08-26 0.2 mg/dL Normal [place] [employer]; [email or web address]. Laboratory - Chemistry and C hemistry - challengeon 07-23-2010 ALT [Catalytic activity/Vol] 15 mmol/L Normal 12 - 49 mmol/L [facility] [employer]; [email or web address]. Calcium [Mass/Vol] 10.1 mg/dL Normal 8.4 - 10. 6 mg/dL [facility].; [facility]. Chloride [Moles/Vol] 108 mmol/L Normal 98 - 11 0 mmol/L [facility].; [facility], [employer]. Cholesterol [Mass/Vol] 139 mg/dL Normal 0 - 2 00 mg/dL [facility], [facility].; [facility], [employer]. Cholesterol in HDL [Mass/Vol] 48 mg/dL Normal 40 - 60 mg/dL [facility].; [place] [employer]. Cholesterol in LDL [Mass/Vol] 80 mg/dL Normal 0 - 100 mg/dL [facility].; [facility], [employer]. Cholesterol.total/Antonietta sterol in HDL [Mass ratio] 2.9 {ratio} Normal 0 - 5.0 [facility].; [place] [employer] [facility], [employer]. CO2 [Moles/Vol] 34.0 {joel/L} Abnormal 22.0 - 32.0 {joel/L} [facility].; [place] [employer], [employer]. Glucose [Mass/Vol] 90 mg/dL Normal 60 - 100 mg/dL [facility].; [place] [employer], [employer]. Potassium [Moles/Vol] 4.3 mmol/L Normal 3.5 - 5.0 mmol/L [facility].; [place] [employer], [employer]. Sodium [Moles/Vol] 144 mmol/L Normal 136 - 145 mmol/L [facility], [facility].; [place] [employer], [employer]. Triglyceride [Mass/Vol] 57 mg/dL Normal 0 - 150 mg/dL [facility].; [employer], [employer]. Urea nitrogen [Mass/Vol] 13 mg/dL Normal 8 - 22 mg/dL [facility].; [employer], [employer]. Laboratory - Chemistry and C hemistry - challengeOrdered By: Janeth Florez on 07-23-2010 Creatinine [Mass/Vol] 0.6 mg/dL Normal 0.5 - 1.2 mg/dL [facility].; [place] [employer]. Work Phone: Laboratory - Hematology and Cell countson 07-23-2010 Basophils/100 WBC (Bld) 0.10 % Normal 0.00 - 0.10 [place] [employer].; [email or web address]. Basophils/100 WBC (Bld) 1.1 % Normal 0.0 - 2.0 % [place] [employer].; [employer], [employer]. Eosinophils/100 WBC (Bld) 0.30 % Normal 0.00 - 0.50 [place] [employer].; [place] [employer], [employer] Eosinophils/100 WBC (Bld) 6.0 % Normal 0.0 - 6.0 % [place] [employer].; [email or web address] Erythrocyte distribution width (RBC) [Ratio] 13.6 % Normal 12.0 - 15.6 % [place] [employer].; [employer], [employer]. Hematocrit (Bld) [Volume fraction] 37.3 % Normal 34 - 44 % [place] [employer], [employer].; [employer], [employer] Lymphocytes/100 WBC (Bld) 2.00 % Normal [place] [employer].; [email or web address]. Lymphocytes/100 WBC (Bld) 36.3 % Normal 20.0 - 45.0 % [email or web address].; [employer], [employer]. MCH (RBC) [Entitic mass] 31 pg Normal 27 - 33 pg [facility] [employer].; [employer], [employer]. MCHC (RBC) [Mass/Vol] 34 g/dL Normal 32 - 36 g/dL [facility] [employer].; [employer], [employer]. MCV (RBC) [Entitic vol] 92 fL Normal 80 - 99 fL [facility] [employer].; [employer], [employer]. Monocytes/100 WBC (Bld) 0.50 % Normal H [facility] [employer].; [employer], [employer]. Neutrophils/100 WBC (Bld) 48.3 % Normal 46 - 76 % [email or web address].; [employer], [employer]. Platelet mean volume (Bld) [Entitic vol] 8.3 fL Normal 6.6 - 10.5 fL [place] [employer].; [employer], [employer]. Platelets (Bld) [#/Vol] 239 10*9{Cells}/L Normal 150 - 450 10*9{Cells}/ L [facility].; [facility]. RBC (Bld) [#/Vol] 4.07 10*6/uL Abnormal 4.10 - 5.3 0 10*6/uL [facility].; [facility]. WBC (Bld) [#/Vol] 5.5 10*9{Cells}/L Normal 4.5 - 10.8 10*9{Cells}/ L [facility].; [facility]. No Panel Informationon 07-23 2.70 10*6/uL Normal 1.5 - 7.1 10*6/uL [facility] 8.3 % Normal 2.0 - 13.0 % [facility] 12.6 g/dL Normal 11.5 - 14.2 g/dL [facility] Vital Signs Date Time Vital Sign Value Performing Clinician Faci lity 07-13-2024 14:26-0400 Diastolic blood pressure 84 mm[Hg] Dr. Joel Muniz MD Work Phone: 6(054)282-449336 [place] [address] 07-13-2024 14:26-0400 Heart rate 64 /min Dr. Joel Muniz MD Work Phone: 1(251)935-554136 [place] [address] 07-13-2024 14:26-0400 Respiratory rate 18 /min Dr. Joel Muniz MD Work Phone: 1(571)945-682036 [place] [address] 07-13-2024 14:26-0400 SaO2% (BldA) [Mass fraction] 96 % Dr. Joel Muniz MD Work Phone: 1(001)759-473736 [place] [address] 07-13-2024 14:26-0400 Systolic blood pressure 179 mm[Hg] Dr. Joel Muniz MD Work Phone: 7(575)538-856836 [place] [address] 07-06-2024 14:31-0400 Body height 160.[address] Joel Muniz MD Work Phone: 3(254)895-284636 [place] [address] 07-06-2024 14:31-0400 Body temperature 98.7 [degF] Dr. Joel Muniz MD Work Phone: 8(672)904-463059 [address] 07-06-2024 14:31-0400 Diastolic blood pressure 69 mm[Hg] Dr. Joel Muniz MD Work Phone: 2(025)140-540059 [place] [address] 07-06-2024 14:31-0400 Heart rate 90 /min Dr. Joel Muniz MD Work Phone: 1(286)501-991159 [place] [address] 07-06-2024 14:31-0400 Respiratory rate 18 /min Dr. Joel Muniz MD Work Phone: 5(009)430-109359 [place] [address] 07-06-2024 14:31-0400 SaO2% (BldA) [Mass fraction] 95 % Dr. Joel Muniz MD Work Phone: 3(770)355-220159 [place] [address] 07-06-2024 14:31-0400 Systolic blood pressure 127 mm[Hg] Dr. Joel Muniz MD Work Phone: 3(573)998-486259 [place] [address] 07-03-2024 10:18-0400 Body height 160.[address] Joel Muniz MD Work Phone: 9(595)051-495059 [place] [address] 07-03-2024 10:18-0400 Body mass index (BMI) [Ratio] 24 kg/m2 Dr. Joel Muniz MD Work Phone: 6(079)393-615759 [place] [address] 07-03-2024 10:18-0400 Body weight 61.[address] Joel Muniz MD Work Phone: 8(028)953-641059 [place] [address] 07-03-2024 10:18-0400 Diastolic blood pressure 91 mm[Hg] Dr. Joel Muniz MD Work Phone: 3(793)315-757159 [place] [address] 07-03-2024 10:18-0400 Heart rate 66 /min Dr. Joel Muniz MD Work Phone: 3(785)862-312236 [place] [address] 07-03-2024 10:18-0400 Respiratory rate 18 /min Dr. Joel Muniz MD Work Phone: 3(699)750-418159 [place] [address] 07-03-2024 10:18-0400 SaO2% (BldA) [Mass fraction] 94 % Dr. Joel Muniz MD Work Phone: 6(384)240-674236 [place] [address] 07-03-2024 10:18-0400 Systolic blood pressure 165 mm[Hg] Dr. Joel Muniz MD Work Phone: 6(706)390-526436 [place] [address] 06-28-2024 14:56-0400 Body mass index (BMI) [Ratio] 23.7 kg/m2 Dr. Joel Muniz MD Work Phone: 8(240)114-619336 [place] [address] 06-28-2024 14:56-0400 Body temperature 97.7 [degF] Dr. Joel Muniz MD Work Phone: 7(803)481-435036 [place] [address] 06-28-2024 14:56-0400 Body weight 60.[address] Joel Muniz MD Work Phone: 1(282)815-519536 [place] [address] 06-28-2024 14:56-0400 Heart rate 76 /min Dr. Joel Muniz MD Work Phone: 5(711)940-633436 [place] [address] 06-28-2024 14:56-0400 Respiratory rate 18 /min Dr. Joel Muniz MD Work Phone: 2(934)065-495936 [place] [address] 06-28-2024 14:56-0400 SaO2% (BldA) [Mass fraction] 94 % Dr. Joel Muniz MD Work Phone: 1(158)590-843836 [place] [address] 06-26-2024 00:49-0400 Body temperature 98 [degF] Dr. Joel Muniz MD Work Phone: 6(845)607-030936 [place] [address] 06-26-2024 00:49-0400 Diastolic blood pressure 80 mm[Hg] Dr. Joel Muniz MD Work Phone: 7(222)874-592736 [place] [address] 06-26-2024 00:49-0400 Heart rate 89 /min Dr. Joel Muniz MD Work Phone: 9(645)735-488636 [place] [address] 06-26-2024 00:49-0400 Respiratory rate 16 /min Dr. Joel Muniz MD Work Phone: 7(196)142-754536 [place] [address] 06-26-2024 00:49-0400 SaO2% (BldA) [Mass fraction] 99 % Dr. Joel Muniz MD Work Phone: 0(456)930-027536 [place] [address] 06-26-2024 00:49-0400 Systolic blood pressure 146 mm[Hg] Dr. Joel Muniz MD Work Phone: [facility] 06-25-2024 20:55-0400 Body height 160.[address] Joel Muniz MD Work Phone: [facility] 06-25-2024 20:55-0400 Body mass index (BMI) [Ratio] 24.5 kg/m2 Dr. Joel Muniz MD Work Phone: [facility] 06-25-2024 20:55-0400 Body weight 62.[address] Joel Muniz MD Work Phone: [facility] 01-17-2024 15:58-0500 Diastolic blood pressure 80 mm[Hg] Chico Collier MD Work Phone: [facility] 01-17-2024 15:58-0500 Systolic blood pressure 120 mm[Hg] Chico Collier MD Work Phone: [facility]; [facility] [facility] 03-03-2023 09:30-0500 Blood Pressure Cuff Size STAN GARCIA DO [facility] 03-03-2023 09:30-0500 Blood Pressure Location STAN BARRETTLE DO [facility] 03-03-2023 09:30-0500 Blood Pressure Method STAN GARCIA DO [facility] 03-03-2023 09:30-0500 Body temperature 97.16 [degF] STAN BARRETTLE DO [facility] 03-03-2023 09:30-0500 Diastolic Blood Pressure Non-Invasive 60 mm[Hg] STAN VIVEKROSALINDALE DO [facility] 03-03-2023 09:30-0500 Heart rate 93 /min STAN RADHA DO [facility] 03-03-2023 09:30-0500 Reason For Taking VItal Signs STAN DOYLEATZLE DO [facility] 03-03-2023 09:30-0500 Respiratory rate 18 /min STAN DOYLEATZLE DO [facility] 03-03-2023 09:30-0500 Systolic Blood Pressure Non-Invasive 108 mm[Hg] STAN SCHEATZLE DO [facility] 03-03-2023 05:17-0500 Body temperature 96.8 [degF] STAN DOYLEATZLE DO [facility] 03-03-2023 05:17-0500 Diastolic Blood Pressure Non-Invasive 70 mm[Hg] STAN DOYLEATZLE DO [facility] 03-03-2023 05:17-0500 Heart rate 73 /min STAN DOYLEATZLE DO [facility] 03-03-2023 05:17-0500 Respiratory rate 16 /min STAN DOYLEATZLE DO [facility] 03-03-2023 05:17-0500 Systolic Blood Pressure Non-Invasive 100 mm[Hg] STAN DOYLEATZLE DO [facility] 03-02-2023 21:09-0500 Body temperature 98.42 [degF] STAN SCHEATZLE DO [facility] 03-02-2023 21:09-0500 Diastolic Blood Pressure Non-Invasive 70 mm[Hg] STAN SCHEATZLE DO [facility] 03-02-2023 21:09-0500 Heart rate 78 /min STAN SCHEATZLE DO [facility] 03-02-2023 21:09-0500 Reason For Taking VItal Signs STAN SCHEATZLE DO [facility] 03-02-2023 21:09-0500 Respiratory rate 16 /min STAN DOYLEATZLE DO [facility] 03-02-2023 21:09-0500 Systolic Blood Pressure Non-Invasive 150 mm[Hg] STAN DOYLEATZLE DO [facility] 03-02-2023 16:18-0500 Body temperature 97.7 [degF] STAN DOYLEATZLE DO [facility] 03-02-2023 16:18-0500 Heart rate 82 /min STAN DOYLEATZLE DO [facility] 03-02-2023 16:18-0500 Reason For Taking VItal Signs STAN DOYLEATZLE DO [facility] 03-02-2023 11:35-0500 Heart rate 85 /min STAN DOYLEATZLE DO [facility] 03-02-2023 09:10-0500 Blood Pressure Cuff Size STAN DOYLEATZLE DO [facility] 03-02-2023 09:10-0500 Blood Pressure Location STAN DOYLEATZLE DO [facility] 03-02-2023 09:10-0500 Blood Pressure Method STAN DOYLEATZLE DO [facility] 03-02-2023 09:10-0500 Heart rate 88 /min STAN DOYLEATZLE DO [facility] 03-01-2023 08:55-0500 Blood Pressure Cuff Size STAN VIVEKATZLE DO [facility] 03-01-2023 08:55-0500 Blood Pressure Location STAN DOYLEATZLE DO [facility] 03-01-2023 08:55-0500 Blood Pressure Method STAN SCHEATZLE DO [facility] 02-28-2023 05:00-0500 Body weight 58.6 kg STAN GARCIA DO [facility] 02-27-2023 09:19-0500 Body temperature 98.06 [degF] STAN DOYLEATZLE DO [facility] 02-26-2023 16:00-0500 Body temperature 97.88 [degF] STAN DOYLEATZLE DO [facility] 02-21-2023 09:10-0500 Body weight 59.4 kg STAN BARRETTLE DO [facility] 02-15-2023 17:37-0500 Body height 160 cm STAN GARCIA DO [facility] 02-15-2023 17:37-0500 Body weight 59.8 kg STAN GARCIA DO [facility] 02-15-2023 17:37-0500 Body weight 23.36 kg/m2 STAN GARCIA DO [facility] 02-15-2023 11:06-[address] KATINA VALDIVIA MD [facility] 02-15-2023 11:06-[address] KATINA VALDIVIA MD [facility] 02-15-2023 11:06-0500 Body temperature 98.06 [degF] DR KATINA VALDIVIA MD [facility] 02-15-2023 11:06-0500 Diastolic Blood Pressure Non-Invasive 51 mm[Hg] DR KATINA VALDIVIA MD [facility] 02-15-2023 11:06-0500 Heart rate 90 /min DR KATINA VALDIVIA MD [address] [place] [address] 02-15-2023 11:06-0500 Reason For Taking VItal Signs DR KATINA VALDIVIA MD [address] [place] [address] 02-15-2023 11:06-0500 Respiratory rate 18 /min DR KATINA VALDIVIA MD [address] [place] [address] 02-15-2023 11:06-0500 Systolic Blood Pressure Non-Invasive 97 mm[Hg] DR KATINA VALDIVIA MD [address] [place] [address] 02-15-2023 07:36-[address] KATINA VALDIVIA MD [address] [place] [address] 02-15-2023 07:36-[address] KATINA VALDIVIA MD [address] [place] [address] 02-15-2023 07:36-0500 Body temperature 98.42 [degF] DR KATINA VALDIVIA MD [address] [place] [address] 02-15-2023 07:36-0500 Diastolic Blood Pressure Non-Invasive 83 mm[Hg] DR KATINA VALDIVIA MD [address] [place] [address] 02-15-2023 07:36-0500 Heart rate 88 /min DR KATINA VALDIVIA MD [address] [place] [address] 02-15-2023 07:36-0500 Reason For Taking VItal Signs DR KATINA VALDIVIA MD [address] [place] [address] 02-15-2023 07:36-0500 Respiratory rate 16 /min DR KATINA VALDIVIA MD [address] [place] [address] 02-15-2023 07:36-0500 Systolic Blood Pressure Non-Invasive 144 mm[Hg] DR KATINA VALDIVIA MD [address] [place] [address] 02-15-2023 04:03-0500 Body temperature 98.06 [degF] DR KATINA VALDIVIA MD [address] [place] [address] 02-15-2023 04:03-0500 Diastolic Blood Pressure Non-Invasive 79 mm[Hg] DR KATINA VALDIVIA MD [address] [place] [address] 02-15-2023 04:03-0500 Heart rate 86 /min DR KATINA VALDIVIA MD [address] [place] [address] 02-15-2023 04:03-0500 Reason For Taking VItal Signs DR KATINA VALDIVIA MD [address] [place] [address] 02-15-2023 04:03-0500 Respiratory rate 18 /min DR KATINA VALDIVIA MD [address] [place] [address] 02-15-2023 04:03-0500 Systolic Blood Pressure Non-Invasive 106 mm[Hg] DR KATINA VALDIVIA MD [address] [place] [address] 02-14-2023 23:31-0500 Heart rate 84 /min DR KATINA VALDIVIA MD [address] [place] [address] 02-14-2023 18:56-[address] KATINA VALDIVIA MD [address] [place] [address] 02-14-2023 18:56-[address] KATINA VALDIVIA MD [address] [place] [address] 02-14-2023 18:49-0500 Body height [address] KATINA VALDIVIA MD [address] [place] [address] 02-14-2023 18:49-0500 Body weight 57.[address] KATINA VALDIVIA MD [address] [place] [address] 02-14-2023 18:49-0500 Body weight 22.46 kg/m2 DR KATINA VALDIVIA MD [address] [place] [address] 02-13-2023 10:52-0500 Blood Pressure Cuff Size DR KATINA VALDIVIA MD [address] [place] [address] 02-13-2023 07:37-0500 Blood Pressure Cuff Size DR KATINA VALDIVIA MD [address] [place] [address] 02-13-2023 03:21-0500 Heart rate 83 /min DR KATINA VALDIVIA MD [address] [place] [address] 02-12-2023 12:07-0500 Blood Pressure Cuff Size DR KATINA VALDIVIA MD [address] [place] [address] 02-12-2023 05:32-0500 Heart rate 73 /min DR KATINA VALDIVIA MD [address] [place] [address] 02-12-2023 04:01-0500 Heart rate 78 /min DR KATINA VALDIVIA MD [address] [place] [address] 02-11-2023 23:48-0500 Heart rate 78 /min DR KTAINA VALDIVIA MD [address] [place] [address] 02-11-2023 23:48-0500 Mean blood pressure 99 mm[Hg] DR KATINA VALDIVIA MD [address] [place] [address] 02-10-2023 19:29-0500 Heart rate 84 /min DR KATINA VALDIVIA MD [address] [place] [address] 02-10-2023 03:32-0500 Mean blood pressure 102 mm[Hg] DR KATINA VALDIVIA MD [address] [place] [address] 02-09-2023 23:03-0500 Body height [address] KATINA VALDIVIA MD [address] [place] [address] 02-09-2023 23:03-0500 Body weight 57.[address] KATINA VALDIVIA MD [address] [place] [address] 02-09-2023 23:03-0500 Body weight 22.46 kg/m2 DR KATINA VALDIVIA MD [address] [place] [address] 02-08-2023 18:00-0500 Mean blood pressure 87 mm[Hg] DR KATINA VALDIVIA MD [address] [place] [address] 02-08-2023 16:22-0500 Body weight 62.[address] KATINA VALDIVIA MD [facility] 01-26-2023 14:18-0500 Body weight 59.42 kg Obi Moraneduardo JOHNSON [facility], [facility].; [facility] 01-26-2023 14:18-0500 Diastolic blood pressure 78 mm[Hg] Obi Hardeep [facility], [facility].; [facility] 01-26-2023 14:18-0500 Heart rate 79 /min Obi Hardeep [facility], [facility].; [facility]. 01-26-2023 14:18-0500 Systolic blood pressure 145 mm[Hg] Obi Hardeep [facility].; [facility], [facility]. 01-12-2023 10:38-0500 Diastolic blood pressure 72 mm[Hg] Chico Collier MD Work Phone: [facility].; [place] [employer] 01-12-2023 10:38-0500 Systolic blood pressure 159 mm[Hg] Chico Collier MD Work Phone: [facility].; [place] [employer] [facility], [employer] 01-12-2023 09:49-0500 Body height 152.4 cm [facility] Work Phone: [facility].; [place] [employer] [facility]. 01-12-2023 09:49-0500 Body mass index (BMI) [Ratio] 25.78 kg/m2 [facility] Work Phone: [facility].; [place] [employer] [facility]. 01-12-2023 09:49-0500 Body surface area Derived from formula 1.56 m2 [facility] Work Phone: [facility], [employer].; [place] [employer], [employer]. 01-12-2023 09:49-0500 Body weight 59.88 kg [facility] Work Phone: [facility] [employer].; [employer] 01-12-2023 09:49-0500 Diastolic blood pressure 83 mm[Hg] Serena Zack HEEL SHAPER Work Phone: [email or web address] [employer] 01-12-2023 09:49-0500 Heart rate 68 /min Serena Zack HEEL SHAPER Work Phone: [email or web address].; [employer] 01-12-2023 09:49-0500 Systolic blood pressure 168 mm[Hg] Serena Zack HEEL SHAPER Work Phone: [email or web address].; [employer] 04-30-2022 15:29-0400 Body height 152.4 cm Tavia Leavitt LPN [facility], [facility] [employer] 04-30-2022 15:29-0400 Body mass index (BMI) [Ratio] 23.24 kg/m2 Tavia Leavitt LPN [place] [employer] [facility], Inc.; [employer] 04-30-2022 15:29-0400 Body surface area Derived from formula 1.5 m2 Tavia Leavitt LPN [place] [employer] [facility], [facility].; [employer] 04-30-2022 15:29-0400 Body weight 53.98 kg Tavia Leavitt LPN [place] [employer] [facility], Inc.; [employer] 04-30-2022 15:29-0400 Diastolic blood pressure 61 mm[Hg] Tavia Leavitt LPN [place] [employer] [facility], [facility].; [employer] 04-30-2022 15:29-0400 Heart rate 67 /min Tavia Leavitt LPN [employer] [facility], [facility].; [employer] 04-30-2022 15:29-0400 Systolic blood pressure 157 mm[Hg] Tavia Leavitt LPN [employer] [facility], [facility].; [employer] 01-06-2022 09:51-0500 Body height 152.4 cm Tavia Leavitt LPN [employer] [facility], [facility].; [employer], [facility]. 01-06-2022 09:51-0500 Body mass index (BMI) [Ratio] 22.26 kg/m2 Tavia Leavitt LPN [facility], [facility].; [employer] 01-06-2022 09:51-0500 Body surface area Derived from formula 1.47 m2 Tavia Leavitt LPN [place] [employer] [facility], Inc.; [employer] 01-06-2022 09:51-0500 Body weight 51.71 kg Tavia Leavitt LPN [place] [employer] [facility], [facility].; [employer] 01-06-2022 09:51-0500 Diastolic blood pressure 64 mm[Hg] Tavia Leavitt LPN [place] [employer] [facility], [facility].; [employer], [employer] 01-06-2022 09:51-0500 Heart rate 79 /min Tavia Leavitt LPN [place] [employer] [facility], [facility].; [employer] 01-06-2022 09:51-0500 Systolic blood pressure 125 mm[Hg] Tavia Leavitt LPN [place] [employer] [facility], Inc.; [employer] 11-16-2021 15:51-0400 Body height 152.4 cm Serena Zack HEEL SHAPER Work Phone: [email or web address] 11-16-2021 15:51-0400 Body mass index (BMI) [Ratio] 22.46 kg/m2 Serena Zack HEEL SHAPER Work Phone: [email or web address].; [employer] 11-16-2021 15:51-0400 Body surface area Derived from formula 1.48 m2 Serena Zack HEEL SHAPER Work Phone: [email or web address].; [employer], [employer] 11-16-2021 15:51-0400 Body weight 52.16 kg Serena Zack HEEL SHAPER Work Phone: [email or web address].; [employer] 11-16-2021 15:51-0400 Diastolic blood pressure 79 mm[Hg] Serena Zack HEEL SHAPER Work Phone: [email or web address].; [employer] [facility]. 11-16-2021 15:51-0400 Heart rate 88 /min Serena Zack HEEL SHAPER Work Phone: [place] [employer].; [place] [employer]. 11-16-2021 15:51-0400 Systolic blood pressure 135 mm[Hg] Serena Zack HEEL SHAPER Work Phone: [place] [employer].; [employer]. 07-08-2021 10:26-0400 Body height 152.4 cm Serena Zack HEEL SHAPER Work Phone: [email or web address].; [employer]. 07-08-2021 10:26-0400 Body mass index (BMI) [Ratio] 22.46 kg/m2 Serena Zack HEEL SHAPER Work Phone: [email or web address].; [place] [employer]. 07-08-2021 10:26-0400 Body surface area Derived from formula 1.48 m2 Serena Zack HEEL SHAPER Work Phone: [email or web address].; [email or web address] 07-08-2021 10:26-0400 Body weight 52.16 kg Serena Zack HEEL SHAPER Work Phone: [email or web address].; [email or web address] 07-08-2021 10:26-0400 Diastolic blood pressure 88 mm[Hg] Serena Zack HEEL SHAPER Work Phone: [email or web address].; [email or web address] 07-08-2021 10:26-0400 Systolic blood pressure 160 mm[Hg] Serena Zack HEEL SHAPER Work Phone: [email or web address].; [email or web address] 01-05-2021 10:22-0500 Body height 152.4 cm Serena Zack HEEL SHAPER Work Phone: [email or web address].; [email or web address] 01-05-2021 10:22-0500 Body mass index (BMI) [Ratio] 22.46 kg/m2 Serena Zack HEEL SHAPER Work Phone: [employer] 01-05-2021 10:22-0500 Body surface area Derived from formula 1.48 m2 Serena Zack HEEL SHAPER Work Phone: [employer].; [employer]. 01-05-2021 10:22-0500 Body weight 52.16 kg Serena Zack HEEL SHAPER Work Phone: [employer].; [employer]. 01-05-2021 10:22-0500 Diastolic blood pressure 86 mm[Hg] Serena Zack HEEL SHAPER Work Phone: [employer].; [employer]. 01-05-2021 10:22-0500 Heart rate 90 /min Serena Zack HEEL SHAPER Work Phone: [employer].; [employer]. 01-05-2021 10:22-0500 Systolic blood pressure 151 mm[Hg] Serena Zack HEEL SHAPER Work Phone: [employer].; [employer]. 08-06-2020 11:07-0400 Body height 152.4 cm Serena Zack HEEL SHAPER Work Phone: [employer].; [employer]. 08-06-2020 11:07-0400 Body mass index (BMI) [Ratio] 23.44 kg/m2 Serena Zack HEEL SHAPER Work Phone: [employer].; [employer]. 08-06-2020 11:07-0400 Body surface area Derived from formula 1.5 m2 Serena Zack HEEL SHAPER Work Phone: [employer].; [employer]. 08-06-2020 11:07-0400 Body weight 54.43 kg Serena Zack HEEL SHAPER Work Phone: [employer].; [employer] 08-06-2020 11:07-0400 Diastolic blood pressure 84 mm[Hg] Serena Zack HEEL SHAPER Work Phone: [email or web address].; [employer] 08-06-2020 11:07-0400 Heart rate 79 /min Serena Zack HEEL SHAPER Work Phone: [email or web address].; [employer] 08-06-2020 11:07-0400 Systolic blood pressure 154 mm[Hg] Serena Zack HEEL SHAPER Work Phone: [employer].; [employer] 07-28-2020 10:29-0400 Body weight 54.43 kg Serena Zack HEEL SHAPER Work Phone: [email or web address].; [email or web address] 07-28-2020 10:29-0400 Diastolic blood pressure 82 mm[Hg] Serena Zack HEEL SHAPER Work Phone: [email or web address].; [email or web address] 07-28-2020 10:29-0400 Heart rate 80 /min Serena Zack HEEL SHAPER Work Phone: [email or web address].; [employer] 07-28-2020 10:29-0400 Systolic blood pressure 157 mm[Hg] Serena Zack HEEL SHAPER Work Phone: [email or web address].; [employer] 06-30-2020 10:23-0400 Body height 152.4 cm Serena Zack HEEL SHAPER Work Phone: [email or web address].; [employer]. 06-30-2020 10:23-0400 Body mass index (BMI) [Ratio] 23.24 kg/m2 Serena Zack HEEL SHAPER Work Phone: [employer].; [employer]. 06-30-2020 10:23-0400 Body surface area Derived from formula 1.5 m2 Serena Zack HEEL SHAPER Work Phone: [employer].; [employer]. 06-30-2020 10:23-0400 Body weight 53.98 kg Serena Zack HEEL SHAPER Work Phone: [employer].; [employer]. 06-30-2020 10:23-0400 Diastolic blood pressure 107 mm[Hg] Serena Zack HEEL SHAPER Work Phone: [employer].; [employer]. 06-30-2020 10:23-0400 Heart rate 87 /min Serena Zack HEEL SHAPER Work Phone: [employer].; [employer]. 06-30-2020 10:23-0400 Systolic blood pressure 177 mm[Hg] Serena Zack HEEL SHAPER Work Phone: [employer].; [employer]. 12-31-2019 09:48-0500 Body height 152.4 cm Serena Zack HEEL SHAPER Work Phone: [employer].; [employer]. 12-31-2019 09:48-0500 Body mass index (BMI) [Ratio] 21.29 kg/m2 Serena Zack HEEL SHAPER Work Phone: [employer].; [employer]. 12-31-2019 09:48-0500 Body surface area Derived from formula 1.44 m2 Serena Zack HEEL SHAPER Work Phone: [employer]. 12-31-2019 09:48-0500 Body weight 49.44 kg Serena Zack HEEL SHAPER Work Phone: [employer]. 12-31-2019 09:48-0500 Diastolic blood pressure 87 mm[Hg] Serena Zack HEEL SHAPER Work Phone: [employer]. 12-31-2019 09:48-0500 Heart rate 98 /min Serena Zack HEEL SHAPER Work Phone: [employer]. 12-31-2019 09:48-0500 Systolic blood pressure 144 mm[Hg] Serena Zack HEEL SHAPER Work Phone: [employer]. 10-01-2019 09:13-0400 Body height 157.48 cm Serena Zack HEEL SHAPER Work Phone: [employer] 10-01-2019 09:13-0400 Body mass index (BMI) [Ratio] 19.75 kg/m2 Serena Zack HEEL SHAPER Work Phone: [employer]. 10-01-2019 09:13-0400 Body surface area Derived from formula 1.47 m2 Serena Zack HEEL SHAPER Work Phone: [employer]. 10-01-2019 09:13-0400 Body weight 48.99 kg Serena Zack HEEL SHAPER Work Phone: [employer]. 10-01-2019 09:13-0400 Diastolic blood pressure 99 mm[Hg] Serena Zack HEEL SHAPER Work Phone: [employer]. 10-01-2019 09:13-0400 Heart rate 73 /min Serena Zack HEEL SHAPER Work Phone: [employer]. 10-01-2019 09:13-0400 Systolic blood pressure 177 mm[Hg] Serena Zack HEEL SHAPER Work Phone: [employer]. 06-28-2019 11:35-0400 Diastolic blood pressure 87 mm[Hg] Chico Collier MD Work Phone: [employer]. 06-28-2019 11:35-0400 Systolic blood pressure 150 mm[Hg] Chico Collier MD Work Phone: [employer]. 06-28-2019 10:21-0400 Body height 157.48 cm Serena Zack HEEL SHAPER Work Phone: [employer]. 06-28-2019 10:21-0400 Body mass index (BMI) [Ratio] 21.22 kg/m2 Serena Zack HEEL SHAPER Work Phone: [employer]. 06-28-2019 10:21-0400 Body surface area Derived from formula 1.52 m2 Serena Zack HEEL SHAPER Work Phone: [employer]. 06-28-2019 10:21-0400 Body weight 52.62 kg Serena Zack HEEL SHAPER Work Phone: [employer]. 06-28-2019 10:21-0400 Diastolic blood pressure 91 mm[Hg] Serena Zack HEEL SHAPER Work Phone: [employer]. 06-28-2019 10:21-0400 Heart rate 78 /min Serena Zack HEEL SHAPER Work Phone: [employer]. 06-28-2019 10:21-0400 Systolic blood pressure 169 mm[Hg] Serena Zack HEEL SHAPER Work Phone: [employer]. 12-28-2018 09:51-0500 Body height 157.48 cm Serena Zack HEEL SHAPER Work Phone: [employer]. 12-28-2018 09:51-0500 Body mass index (BMI) [Ratio] 20.48 kg/m2 Seerna Zack HEEL SHAPER Work Phone: [employer]. 12-28-2018 09:51-0500 Body surface area Derived from formula 1.49 m2 Serena Zack HEEL SHAPER Work Phone: [employer] 12-28-2018 09:51-0500 Body weight 50.8 kg Serena Zack HEEL SHAPER Work Phone: [employer] 12-28-2018 09:51-0500 Diastolic blood pressure 81 mm[Hg] Serena Zack HEEL SHAPER Work Phone: [employer].; [employer] 12-28-2018 09:51-0500 Heart rate 70 /min Serena Zack HEEL SHAPER Work Phone: [employer]. 12-28-2018 09:51-0500 Systolic blood pressure 145 mm[Hg] Serena Zack HEEL SHAPER Work Phone: [employer].; [employer] 12-23-2017 09:42-0500 Body height 157.48 cm Serena Zack HEEL SHAPER Work Phone: [employer] 12-23-2017 09:42-0500 Body mass index (BMI) [Ratio] 20.3 kg/m2 Serena Zack HEEL SHAPER Work Phone: [employer] 12-23-2017 09:42-0500 Body surface area Derived from formula 1.49 m2 Serena Zack HEEL SHAPER Work Phone: [employer] 12-23-2017 09:42-0500 Body weight 50.35 kg Serena Zack HEEL SHAPER Work Phone: [employer]. 12-23-2017 09:42-0500 Diastolic blood pressure 89 mm[Hg] Serena Zack HEEL SHAPER Work Phone: [employer] 12-23-2017 09:42-0500 Heart rate 71 /min Serena Zack HEEL SHAPER Work Phone: [employer] 12-23-2017 09:42-0500 Systolic blood pressure 148 mm[Hg] Serena Zack HEEL SHAPER Work Phone: [employer] 09-19-2017 11:14-0400 Body height 157.48 cm Serena Zack HEEL SHAPER Work Phone: [employer] 09-19-2017 11:14-0400 Body mass index (BMI) [Ratio] 20.12 kg/m2 Serena Zack HEEL SHAPER Work Phone: [employer] 09-19-2017 11:14-0400 Body surface area Derived from formula 1.48 m2 Serena Zack HEEL SHAPER Work Phone: [employer] 09-19-2017 11:14-0400 Body weight 49.9 kg Serena Zack HEEL SHAPER Work Phone: [employer].; [employer] 09-19-2017 11:14-0400 Diastolic blood pressure 90 mm[Hg] Serena Zack HEEL SHAPER Work Phone: [employer] 09-19-2017 11:14-0400 Heart rate 71 /min Serena Zack HEEL SHAPER Work Phone: [employer] 09-19-2017 11:14-0400 Systolic blood pressure 152 mm[Hg] Serena Zack HEEL SHAPER Work Phone: [employer] 09-05-2017 09:00-0400 Body height 157.48 cm Serenaakshat Dumonty HEEL SHAPER Work Phone: [employer].; [employer] 09-05-2017 09:00-0400 Body mass index (BMI) [Ratio] 20.48 kg/m2 Serena Zack HEEL SHAPER Work Phone: [employer].; [employer] 09-05-2017 09:00-0400 Body surface area Derived from formula 1.49 m2 Serena Zack HEEL SHAPER Work Phone: [employer].; [employer] 09-05-2017 09:00-0400 Body weight 50.8 kg Serenaakshat Dumonty HEEL SHAPER Work Phone: [employer].; [employer] 09-05-2017 09:00-0400 Diastolic blood pressure 83 mm[Hg] Serena Zack HEEL SHAPER Work Phone: [employer].; [employer] 09-05-2017 09:00-0400 Heart rate 65 /min Serena Zack HEEL SHAPER Work Phone: [employer].; [employer] 09-05-2017 09:00-0400 Systolic blood pressure 150 mm[Hg] Serena Zack HEEL SHAPER Work Phone: [employer].; [employer] 08-29-2017 08:59-0400 Body height 157.48 cm Serena Dumonty HEEL SHAPER Work Phone: [employer].; [employer] 08-29-2017 08:59-0400 Body mass index (BMI) [Ratio] 20.48 kg/m2 Serena Zack HEEL SHAPER Work Phone: [employer].; [employer] 08-29-2017 08:59-0400 Body surface area Derived from formula 1.49 m2 Serena Zcak HEEL SHAPER Work Phone: [employer].; [employer]. 08-29-2017 08:59-0400 Body weight 50.8 kg Serena Zack HEEL SHAPER Work Phone: [employer].; [employer] 08-29-2017 08:59-0400 Diastolic blood pressure 91 mm[Hg] Serena Zack HEEL SHAPER Work Phone: [employer].; [employer] 08-29-2017 08:59-0400 Heart rate 75 /min Serena Zack HEEL SHAPER Work Phone: [employer] 08-29-2017 08:59-0400 Systolic blood pressure 161 mm[Hg] Serena Zack HEEL SHAPER Work Phone: [employer] 06-24-2017 10:32-0400 Body height 157.48 cm Serena Zack HEEL SHAPER Work Phone: [employer] 06-24-2017 10:32-0400 Body mass index (BMI) [Ratio] 20.3 kg/m2 Serena Zack HEEL SHAPER Work Phone: [employer] 06-24-2017 10:32-0400 Body surface area Derived from formula 1.49 m2 Serena Zack HEEL SHAPER Work Phone: [employer].; [employer] 06-24-2017 10:32-0400 Body weight 50.35 kg Serena Zack HEEL SHAPER Work Phone: [employer]. 06-24-2017 10:32-0400 Diastolic blood pressure 94 mm[Hg] Serena Zack HEEL SHAPER Work Phone: [employer].; [employer]. 06-24-2017 10:32-0400 Heart rate 77 /min Serena Zack HEEL SHAPER Work Phone: [employer] 06-24-2017 10:32-0400 Systolic blood pressure 175 mm[Hg] Serena Zack HEEL SHAPER Work Phone: [employer].; [employer] 03-24-2017 10:35-0500 Body height 157.48 cm Neilee L Vess HEEL SHAPER [employer] 03-24-2017 10:35-0500 Body mass index (BMI) [Ratio] 20.12 kg/m2 Neilee L Vess HEEL SHAPER [employer] 03-24-2017 10:35-0500 Body surface area Derived from formula 1.48 m2 Neilee L Vess HEEL SHAPER [employer] 03-24-2017 10:35-0500 Body weight 49.9 kg Neilee L Vess HEEL SHAPER [employer] 03-24-2017 10:35-0500 Diastolic blood pressure 80 mm[Hg] Neilee L Vess HEEL SHAPER [employer] 03-24-2017 10:35-0500 Heart rate 80 /min Neilee L Vess HEEL SHAPER [employer] 03-24-2017 10:35-0500 Systolic blood pressure 144 mm[Hg] Neilee L Vess HEEL SHAPER [employer] 12-22-2016 09:49-0500 Body height 157.48 cm Serena Zack HEEL SHAPER Work Phone: [employer] 12-22-2016 09:49-0500 Body mass index (BMI) [Ratio] 21.03 kg/m2 Serena Zack HEEL SHAPER Work Phone: [employer].; [employer] 12-22-2016 09:49-0500 Body surface area Derived from formula 1.51 m2 Serena Zack HEEL SHAPER Work Phone: [employer] 12-22-2016 09:49-0500 Body weight 52.16 kg Serena Zack HEEL SHAPER Work Phone: [employer].; [employer] 12-22-2016 09:49-0500 Diastolic blood pressure 91 mm[Hg] Serena Zack HEEL SHAPER Work Phone: [employer].; [employer] 12-22-2016 09:49-0500 Heart rate 77 /min Serena Zack HEEL SHAPER Work Phone: [employer]. 12-22-2016 09:49-0500 Systolic blood pressure 148 mm[Hg] Serena Zack HEEL SHAPER Work Phone: [employer].; [employer] 07-29-2016 09:04-0400 Body height 157.48 cm Neilee L Vess HEEL SHAPER [employer]. 07-29-2016 09:04-0400 Body mass index (BMI) [Ratio] 21.58 kg/m2 Neilee L Vess HEEL SHAPER [employer] 07-29-2016 09:04-0400 Body surface area Derived from formula 1.53 m2 Neilee L Vess HEEL SHAPER [employer]. 07-29-2016 09:04-0400 Body weight 53.52 kg Neilee L Vess HEEL SHAPER [employer]. 07-29-2016 09:04-0400 Diastolic blood pressure 85 mm[Hg] Neilee L Vess HEEL SHAPER [employer] 07-29-2016 09:04-0400 Heart rate 70 /min Neilee L Vess HEEL SHAPER [employer]. 07-29-2016 09:04-0400 Systolic blood pressure 154 mm[Hg] Neilee L Vess HEEL SHAPER [employer]. 12-22-2015 09:53-0500 Body height 157.48 cm Serena Zack HEEL SHAPER Work Phone: [employer]. 12-22-2015 09:53-0500 Body mass index (BMI) [Ratio] 23.59 kg/m2 Serena Zack HEEL SHAPER Work Phone: [employer]. 12-22-2015 09:53-0500 Body surface area Derived from formula 1.59 m2 Serena Zack HEEL SHAPER Work Phone: [employer].; [employer]. 12-22-2015 09:53-0500 Body weight 58.51 kg Serena Zack HEEL SHAPER Work Phone: [employer]. 12-22-2015 09:53-0500 Diastolic blood pressure 92 mm[Hg] Serena Zack HEEL SHAPER Work Phone: [employer]. 12-22-2015 09:53-0500 Heart rate 81 /min Serena Zack HEEL SHAPER Work Phone: [employer]. 12-22-2015 09:53-0500 Systolic blood pressure 138 mm[Hg] Serena Zack HEEL SHAPER Work Phone: [employer]. 05-19-2015 10:42-0400 Body height 157.48 cm Serena Zack HEEL SHAPER Work Phone: [employer].; [employer]. 05-19-2015 10:42-0400 Body mass index (BMI) [Ratio] 25.61 kg/m2 Serena Zack HEEL SHAPER Work Phone: [employer]. 05-19-2015 10:42-0400 Body surface area Derived from formula 1.64 m2 Serena Zack HEEL SHAPER Work Phone: [employer].; [employer]. 05-19-2015 10:42-0400 Body weight 63.5 kg Serena Zack HEEL SHAPER Work Phone: [employer] 05-19-2015 10:42-0400 Diastolic blood pressure 91 mm[Hg] Serena Zack HEEL SHAPER Work Phone: [employer] 05-19-2015 10:42-0400 Heart rate 71 /min Serena Zack HEEL SHAPER Work Phone: [employer]. 05-19-2015 10:42-0400 Systolic blood pressure 180 mm[Hg] Serena Zack HEEL SHAPER Work Phone: [employer].; [employer]. 11-28-2014 10:00-0400 Body height 157.48 cm Neilee L Vess HEEL SHAPER [email or web address] 11-28-2014 10:00-0400 Body mass index (BMI) [Ratio] 24.69 kg/m2 Neilee L Vess HEEL SHAPER [employer].; [employer] 11-28-2014 10:00-0400 Body surface area Derived from formula 1.62 m2 Neilee L Vess HEEL SHAPER [employer]. 11-28-2014 10:00-0400 Body weight 61.24 kg Neilee L Vess HEEL SHAPER [email or web address]. 11-28-2014 10:00-0400 Diastolic blood pressure 78 mm[Hg] Neilee L Vess HEEL SHAPER [employer]. 11-28-2014 10:00-0400 Heart rate 69 /min Neilee L Vess HEEL SHAPER [employer]. 11-28-2014 10:00-0400 Systolic blood pressure 152 mm[Hg] Neilee L Vess HEEL SHAPER [email or web address]. 05-29-2014 16:15-0400 Body height 157.48 cm Serena Zack HEEL SHAPER Work Phone: [employer]. 05-29-2014 16:15-0400 Body mass index (BMI) [Ratio] 26.52 kg/m2 Serena Zack HEEL SHAPER Work Phone: [employer]. 05-29-2014 16:15-0400 Body surface area Derived from formula 1.67 m2 Serena Zack HEEL SHAPER Work Phone: [employer].; [employer]. 05-29-2014 16:15-0400 Body weight 65.77 kg Serena Zack HEEL SHAPER Work Phone: [employer].; [employer]. 05-29-2014 16:15-0400 Diastolic blood pressure 97 mm[Hg] Serena Zack HEEL SHAPER Work Phone: [employer].; [employer]. 05-29-2014 16:15-0400 Heart rate 72 /min Serena Zack HEEL SHAPER Work Phone: [employer]. 05-29-2014 16:15-0400 Systolic blood pressure 192 mm[Hg] Serena Zack HEEL SHAPER Work Phone: [employer].; [employer]. 11-22-2013 09:50-0400 Body height 157.48 cm Neilee L Vess HEEL SHAPER [email or web address]. 11-22-2013 09:50-0400 Body mass index (BMI) [Ratio] 25.97 kg/m2 Neilee L Vess HEEL SHAPER [email or web address]. 11-22-2013 09:50-0400 Body surface area Derived from formula 1.65 m2 Neilee L Vess HEEL SHAPER [email or web address]. 11-22-2013 09:50-0400 Body weight 64.41 kg Neilee L Vess HEEL SHAPER [facility], [facility].; [employer] [facility]. 11-22-2013 09:50-0400 Diastolic blood pressure 82 mm[Hg] Neilee L Vess HEEL SHAPER [facility], [facility].; [employer], [facility]. 11-22-2013 09:50-0400 Heart rate 75 /min Neilee L Vess HEEL SHAPER [place] [employer] [facility], [facility].; [employer] [facility]. 11-22-2013 09:50-0400 Systolic blood pressure 145 mm[Hg] Neilee L Vess HEEL SHAPER [place] [employer] [facility], [facility].; [employer] [facility]. 11-02-2012 13:58-0400 Body height 157.48 cm Neilee L Vess HEEL SHAPER [place] [employer] [facility], [facility].; [email or web address] 11-02-2012 13:58-0400 Body mass index (BMI) [Ratio] 24.69 kg/m2 Neilee L Vess HEEL SHAPER [place] [employer] [facility], [facility].; [employer] [facility]. 11-02-2012 13:58-0400 Body surface area Derived from formula 1.62 m2 Neilee L Vess HEEL SHAPER [place] [employer] [facility], [facility].; [employer] [facility]. 11-02-2012 13:58-0400 Body weight 61.24 kg Neilee L Vess HEEL SHAPER [place] [employer] [facility], [facility].; [employer] [facility]. 11-02-2012 13:58-0400 Diastolic blood pressure 83 mm[Hg] Neilee L Vess HEEL SHAPER [place] [employer] [facility], [facility].; [employer] [facility]. 11-02-2012 13:58-0400 Heart rate 65 /min Neilee L Vess HEEL SHAPER [place] [employer] [facility].; [email or web address] 11-02-2012 13:58-0400 Systolic blood pressure 169 mm[Hg] Neilee L Vess HEEL SHAPER [place] [employer] [facility].; [email or web address] 09-09-2011 09:57-0400 Body height 157.48 cm Neilee L Vess HEEL SHAPER [place] [employer], [facility].; [email or web address] 09-09-2011 09:57-0400 Body mass index (BMI) [Ratio] 23.41 kg/m2 Neilee L Vess HEEL SHAPER [employer] [facility].; [employer]. 09-09-2011 09:57-0400 Body surface area Derived from formula 1.58 m2 Neilee L Vess HEEL SHAPER [email or web address]. 09-09-2011 09:57-0400 Body weight 58.06 kg Neilee L Vess HEEL SHAPER [email or web address].; [email or web address] 09-09-2011 09:57-0400 Diastolic blood pressure 79 mm[Hg] Neilee L Vess HEEL SHAPER [employer] [facility].; [employer]. 09-09-2011 09:57-0400 Heart rate 61 /min Neilee L Vess HEEL SHAPER [email or web address]. 09-09-2011 09:57-0400 Systolic blood pressure 145 mm[Hg] Neilee L Vess HEEL SHAPER [email or web address] 08-26-2010 10:21-0400 Body height 160.02 cm Serena Zack HEEL SHAPER Work Phone: [email or web address]. 08-26-2010 10:21-0400 Body mass index (BMI) [Ratio] 22.32 kg/m2 Serena Zack HEEL SHAPER Work Phone: [employer]. 08-26-2010 10:21-0400 Body surface area Derived from formula 1.59 m2 Serena Zack HEEL SHAPER Work Phone: [employer] 08-26-2010 10:21-0400 Body weight 57.15 kg Serena Zack HEEL SHAPER Work Phone: [email or web address] 08-26-2010 10:21-0400 Diastolic blood pressure 81 mm[Hg] Serena Zack HEEL SHAPER Work Phone: [employer] 08-26-2010 10:21-0400 Heart rate 58 /min Serena Dixon LPN Work Phone: [facility] [employer]. 08-26-2010 10:0400 Systolic blood pressure 138 mm[Hg] Serena Dixon LPN Work Phone: [employer] [facility].; [employer]. Encounters Encounter Date Encounter Type Care Provider Facility Start: 07-13-2024 End: 07-13-[address] Jose Matthews MD -[facility] Work Phone: Start: 07-13-2024 End: 07-13-[address] Joel Muniz MD Work Phone: [facility] Work Phone: Start: 07-06-2024 End: 07-06-[address] Jose Matthews MD -[facility] Work Phone: Start: 07-06-2024 End: 07-06-[address] Joel Muniz MD Work Phone: [facility] Work Phone: Start: 07-03-2024 End: 07-03-2024 Patient encounter procedure Barbara PEREIRA -[facility] Work Phone: Start: 07-03-2024 End: 07-03-[address] Joel Muniz MD Work Phone: [facility] Work Phone: Start: 07-03-2024 End: 07-03-[address] Rahul Shetty MD -[facility] Work Phone: Start: 07-03-[address] Rahul isaac MD -[facility] Work Phone: Start: 07-03-2024 End: 07-03-2024 ambulatory Rahul SAAVEDRA Facility:[facility] Start: 06-29-2024 ambulatory Rahul SAAVEDRA Facil ity:[facility] Start: 06-29-[address] Rahul isaac MD -[facility] Work Phone: Start: 06-28-2024 End: 06-28-[address] Jose Matthews MD -[facility] Work Phone: Start: 06-28-2024 End: 06-28-[address] Joel Muniz MD Work Phone: [facility] Work Phone: Start: 06-28-2024 End: 06-28-[address] Rahul Shetty MD -[facility] Work Phone: Start: 06-28-[address] Rahul isaac MD -[facility] Work Phone: Start: 06-27-2024 End: 06-28-[address] Joel Muniz MD Work Phone: [facility] Work Phone: Start: 06-27-2024 End: 06-27-[address] Rahul Shetty MD -[facility] Work Phone: Start: 06-27-[address] Rahul isaac MD -[facility] Work Phone: Start: 06-27-2024 End: 06-27-2024 ambulatory Rahul SAAVEDRA Facility:[facility] Start: 06-25-2024 End: 06-26-2024 Emergency department patient visit Dr. Joel Muniz MD Work Phone: -Emergency Department Work Phone: Start: 03-07-2024 ambulatory Chico Gallegosi ty:[facility] Start: 02-06-2024 End: 02-06-2024 Chico Collier MD Work Phone: [facility] Start: 12-10-2023 ambulatory Chico Nando Facili ty:[facility] Start: 2023 End: 2023 Chico Collier MD Work Phone: [employer] [facility] Start: 04-07-2023 End: 04-07-2023 ambulatory [facility] Work Phone: Start: 04-07-2023 End: 04-07-2023 Patient encounter procedure [facility], [facility] Work Phone: Start: 03-15-2023 End: 03-15-2023 Chico Collier MD Work Phone: [employer] Start: 03-15-2023 Chico mercado MD Work Phone: [employer] Start: 03-09-2023 End: 03-09-2023 Chico Collier MD Work Phone: [employer] Start: 02-15-2023 End: 03-03-2023 Evaluation and management of inpatient STAN GARCIA DO Facility:R Start: 02-15-2023 End: 03-03-2023 Evaluation and management of inpatient STAN BARRETTJUANIS HENLEY [facility] Start: 02-15-[address] CHICO COLLIER MD Facility:A Start: 02-08-2023 End: 02-15-2023 Evaluation and management of inpatient DR CHICO COLLIER MD Facility:A Start: 02-08-2023 End: 02-15-2023 Evaluation and management of inpatient DR KATINA VALDIVIA MD [facility] Start: 02-08-2023 End: 02-08-2023 Emergency department patient visit GREY CONNOR [facility] Start: 01-27-2023 End: 01-27-2023 Chico Collier MD Work Phone: [employer] [facility] Start: 01-26-2023 End: 01-26-2023 ambulatory [facility] Start: 01-26-2023 End: 01-26-2023 Office outpatient visit 15 minutes Chico Collier MD Work Phone: [employer] Start: 01-12-2023 End: 01-14-2023 Patient encounter status Chico Collier MD Work Phone: [employer]; [employer] Start: 01-12-2023 End: 01-14-2023 Chico Collier MD Work Phone: [employer] Start: 12-27-2022 End: 12-27-2022 Chico Collier MD Work Phone: [employer] Start: 12-08-2022 End: 12-14-2022 Chico Collier MD Work Phone: [employer] Start: 06-14-2022 End: 06-14-2022 Chico Collier MD Work Phone: [employer] Start: 06-10-2022 End: 06-11-2022 Emergency department patient visit [facility] Start: 05-21-2022 End: 05-21-2022 Chico Collier MD Work Phone: [employer] Start: 05-19-2022 End: 05-19-2022 Chico Collier MD Work Phone: [employer] Start: 05-19-2022 End: 05-19-2022 ambulatory [facility] Start: 05-05-2022 End: 05-06-2022 Chico Collier MD Work Phone: [employer] Start: 04-30-2022 End: 04-30-2022 Chico Collier MD Work Phone: [employer] Start: 04-24-2022 End: 04-24-2022 Emergency department patient visit [facility] Start: 01-28-2022 End: 01-28-2022 Chico Collier MD Work Phone: [employer] Start: 01-06-2022 End: 01-06-2022 Patient encounter status Chico Collier MD Work Phone: [employer]; [employer]. Start: 01-06-2022 End: 01-06-2022 [place]ico Collier MD Work Phone: [employer] Start: 12-28-2021 End: 12-28-2021 Chico Collier MD Work Phone: [employer] Start: 12-24-2021 End: 12-24-2021 Chico Collier MD Work Phone: [employer] Start: 11-18-2021 End: 11-18-2021 Chico Collier MD Work Phone: [employer] Start: 11-16-2021 End: 11-18-2021 Chico Collier MD Work Phone: [employer]. Start: 07-08-2021 End: 07-08-2021 Chico Collier MD Work Phone: [employer] Start: 01-05-2021 End: 01-05-2021 Patient encounter status Chico Collier MD Work Phone: [employer]; [employer]. Start: 01-05-2021 End: 01-05-2021 Chico Collier MD Work Phone: [employer] Start: 08-06-2020 End: 08-06-2020 Chico Collier MD Work Phone: [employer] Start: 07-28-2020 End: 07-28-2020 Chico Collier MD Work Phone: [employer] Start: 07-28-2020 End: 07-28-2020 Chico Collier MD Work Phone: [employer] Start: 06-30-2020 End: 06-30-2020 Chico Collire MD Work Phone: [employer] Start: 12-31-2019 End: 12-31-2019 Patient encounter status Serena Dixon LPN Work Phone: [employer]; [employer]. Start: 12-31-2019 End: 12-31-2019 Chico Collier MD Work Phone: [employer] Start: 12-24-2019 End: 12-24-2019 Chico Collier MD Work Phone: [employer] Start: 11-27-2019 End: 11-28-2019 Chico Collier MD Work Phone: [employer] Start: 10-01-2019 End: 10-01-2019 Preprocedural examination done Chico Collier MD Work Phone: [employer]; [employer] Start: 10-01-2019 End: 10-01-2019 Chico Collier MD Work Phone: [employer] Start: 06-28-2019 End: 06-28-2019 Office outpatient visit 25 minutes Chico Collier MD Work Phone: [employer] Start: 06-28-2019 End: 06-28-2019 Chico Collier MD Work Phone: [employer] Start: 12-28-2018 End: 12-28-2018 Patient encounter status Chico Collier MD Work Phone: [employer]; [employer] Start: 12-28-2018 End: 12-28-2018 Chico Collier MD Work Phone: [employer] Start: 12-22-2018 End: 12-22-2018 Chico Collier MD Work Phone: [employer]. Start: 11-23-2018 End: 11-24-2018 Chico Collier MD Work Phone: [employer] Start: 12-23-2017 End: 12-23-2017 Patient encounter status Chico Collier MD Work Phone: [employer]. Start: 12-23-2017 End: 12-23-2017 Chico Collier MD Work Phone: [employer]. Start: 12-14-2017 End: 12-14-2017 Chico Collier MD Work Phone: [employer]. Start: 11-17-2017 End: 11-17-2017 Chico Collier MD Work Phone: [employer] Start: 09-19-2017 End: 09-19-2017 Chico Collier MD Work Phone: [employer] Start: 09-05-2017 End: 09-05-2017 Chico Collier MD Work Phone: [employer]. Start: 08-29-2017 End: 08-29-2017 Chico Collier MD Work Phone: [employer] Start: 06-24-2017 End: 06-24-2017 Chico Collier MD Work Phone: [employer]. Start: 06-09-2017 End: 06-09-2017 Chico Collier MD Work Phone: [employer] Start: 03-25-2017 End: 03-25-2017 Chico Collier MD Work Phone: [employer]. Start: 03-24-2017 End: 03-24-2017 Chico Collier MD Work Phone: [employer] Start: 12-23-2016 End: 12-23-2016 Chico Collier MD Work Phone: [employer] Start: 12-22-2016 End: 12-22-2016 Patient encounter status Chico Collier MD Work Phone: [employer]. Start: 12-22-2016 End: 12-22-2016 Chico Collier MD Work Phone: [employer] Start: 12-13-2016 End: 12-13-2016 Chico Collier MD Work Phone: [employer] Start: 11-05-2016 End: 11-08-2016 Chico Collier MD Work Phone: [employer]. Start: 08-06-2016 End: 08-06-2016 Chico Collier MD Work Phone: [employer] Start: 07-29-2016 End: 07-29-2016 Chico Collier MD Work Phone: [employer] Start: 12-22-2015 End: 12-22-2015 Patient encounter status Chico Collier MD Work Phone: [employer]. Start: 12-22-2015 End: 12-22-2015 Chico Collier MD Work Phone: [employer] Start: 12-03-2015 End: 12-03-2015 Chico Collier MD Work Phone: [employer]. Start: 11-03-2015 End: 11-03-2015 Chico Collier MD Work Phone: [employer] Start: 11-03-2015 End: 11-03-2015 Chico Collier MD Work Phone: [employer] Start: 06-11-2015 End: 06-11-2015 Chico Collier MD Work Phone: [employer] Start: 06-06-2015 End: 06-06-2015 Chico Collier MD Work Phone: [employer] Start: 05-28-2015 End: 05-28-2015 Chico Collier MD Work Phone: [employer]. Start: 05-19-2015 End: 05-19-2015 Chico Collier MD Work Phone: [employer] Start: 11-28-2014 End: 11-28-2014 Patient encounter status Chico Collier MD Work Phone: [employer].; [employer]. Start: 11-28-2014 End: 11-28-2014 Chico Collier MD Work Phone: [employer] Start: 11-27-2014 End: 11-27-2014 Chico Collier MD Work Phone: [employer] Start: 11-21-2014 End: 11-21-2014 Chico Collier MD Work Phone: [employer] Start: 10-30-2014 End: 10-31-2014 Chico Collier MD Work Phone: [employer]. Start: 10-30-2014 End: 10-30-2014 Chico Collier MD Work Phone: [employer] Start: 05-29-2014 End: 06-20-2014 Chico Collier MD Work Phone: [employer]. Start: 11-22-2013 End: 11-22-2013 Patient encounter status Chico Collier MD Work Phone: [employer]. Start: 11-22-2013 End: 11-22-2013 Chico Collier MD Work Phone: [employer] Start: 11-14-2013 End: 11-14-2013 Chico Collier MD Work Phone: [employer]. Start: 10-23-2013 End: 10-24-2013 Chico Collier MD Work Phone: [employer] Start: 11-02-2012 End: 11-02-2012 Routine gynecological examination Chico Collier MD Work Phone: [employer] [facility]; [employer]. Start: 11-02-2012 End: 11-02-2012 Chico Collier MD Work Phone: [employer]. Start: 10-23-2012 End: 10-23-2012 Chico Collier MD Work Phone: [employer] Start: 10-05-2012 End: 10-05-2012 Chico Collier MD Work Phone: [email or web address]. Start: 03-17-2012 End: 03-17-2012 Chico Collier MD Work Phone: [employer] Start: 03-13-2012 End: 03-13-2012 Chico Collier MD Work Phone: [employer] Start: 10-14-2011 End: 10-14-2011 Chico Collier MD Work Phone: [employer]. Start: 10-13-2011 End: 10-13-2011 Chico Collier MD Work Phone: [employer] Start: 09-09-2011 End: 09-09-2011 Chico Collier MD Work Phone: [email or web address]. Start: 08-06-2011 End: 08-06-2011 Chico Collier MD Work Phone: [employer] Start: 03-05-2011 End: 03-05-2011 Chico Collier MD Work Phone: [employer] Start: 02-26-2011 End: 02-26-2011 Chico Collier MD Work Phone: [employer] Start: 02-22-2011 End: 02-22-2011 Chico Collier MD Work Phone: [employer] Start: 08-26-2010 End: 08-26-2010 Routine gynecological examination Chico Collier MD Work Phone: [employer]; [employer]. Start: 08-26-2010 End: 08-26-2010 Chico Collier MD Work Phone: [employer] Start: 07-09-2010 End: 07-09-2010 Routine general medical examination at a [facility] facility Chico Collier MD Work Phone: [employer]. Start: 07-09-2010 End: 07-09-2010 Chico Collier MD Work Phone: [email or web address] Patient encounter status Serena Dixon LPN Work Phone: [employer]; [employer] Patient encounter status Serena Dixon LPN Work Phone: [employer] Procedures Date Procedure Procedure Detail Performing Clinician Start: 06-27-2024 Measurement of occul t blood in stool specimen using immunoassay Dr. Joel Muniz MD Work Phone: Start: 06-26-[address] Joel Muniz MD Work Phone: Start: 06-26-2024 Urnls dip stick/tabl et reagent auto microscopy Dr. Joel Muniz MD Work Phone: Start: 06-25-2024 XR forearm, [address] Joel Muniz MD Work Phone: Start: 04-07-2023 CT of head without contrast Start: 02-08-2023 Urinalysis CHICO LEONARD Comment on above: Result Comment: URIN ALYSIS Performed By: #### [id number] ####[facility],[address] [place] [address] Start: 01-26-2023 End: 01-26-2023 Radex hand minimum 3 views Erik gregory PA-C Work Phone: Start: 01-12-2023 End: 01-12-2023 Adv care pln/ no alt dcsn mkr docd or refusal Chico Collier MD Work Phone: Start: 01-12-2023 End: 01-12-2023 Body mass index documented Chico grigsby MD Work Phone: Start: 01-12-2023 End: 01-12-2023 Depression screening Chico Collier MD Work Phone: Start: 01-12-2023 End: 01-12-2023 Docrev cur meds by chay Collier MD Work Phone: Start: 01-12-2023 End: 01-12-2023 Falls risk assessment documented Chico Collier MD Work Phone: Start: 01-12-2023 End: 01-12-2023 Most recent diastolic blood pressure 80-89 mm hg Chico Collier MD Work Phone: Start: 01-12-2023 End: 01-12-2023 Most recent systolic blood pres>/equal 140 mm hg Chico Collier MD Work Phone: Start: 01-12-2023 End: 01-12-2023 Pos clin depres scrn f/u doc Chico Collier MD Work Phone: Start: 01-12-2023 End: 01-12-2023 PPPS, subseq visit Chico Tyson Work Phone: Start: 01-12-2023 End: 01-12-2023 Pt falls assess docd 2/> falls/fall w/injury/yr Chico Collier MD Work Phone: Start: 01-12-2023 End: 01-12-2023 Serena Dixon LPN Work Phone: Start: 01-12-2023 End: 01-12-2023 Serena Dixon LPN Work Phone: Start: 12-27-2022 End: 12-27-2022 Lab findings surveillance Serena DUNCAN Work Phone: Start: 12-27-2022 End: 12-27-2022 Lipid panel results documented & reviewed Serena Dixon LPN Work Phone: Start: 05-19-2022 End: 05-19-2022 Screening mammography Serena Dixon LPN Work Phone: Start: 05-19-2022 End: 05-19-2022 Serena Dixon LPN Work Phone: Start: 05-06-2022 End: 05-20-2022 Duplex scan extracranial art compl bi study Chico Collier MD Work Phone: Start: 05-05-2022 End: 05-20-2022 Screening digital breast tomosynthesis bi Chico Collier MD Work Phone: Start: 01-06-2022 End: 01-06-2022 Adv care pln/ no alt dcsn mkr docd or refusal Chico Collier MD Work Phone: Start: 01-06-2022 End: 01-06-2022 Depression screening Chico Collier MD Work Phone: Start: 01-06-2022 End: 01-06-2022 Falls risk assessment documented Chico Collier MD Work Phone: Start: 01-06-2022 End: 01-06-2022 PPPS, subseq visit Chico Tyson Work Phone: Start: 01-06-2022 End: 01-06-2022 Pt falls assess docd 2/> falls/fall w/injury/yr Chico Collier MD Work Phone: Start: 01-06-2022 End: 01-06-2022 Scr dep neg, no plan reqd Chico ford MD Work Phone: Start: 11-16-2021 End: 11-18-2021 Radex hip unilateral with pelvis 2-3 views Chico Collier MD Work Phone: Start: 07-08-2021 End: 07-08-2021 Most recent diastolic blood pressure 80-89 mm hg Chico Collier MD Work Phone: Start: 07-08-2021 End: 07-08-2021 Most recent systolic blood pres>/equal 140 mm hg Chico Collier MD Work Phone: Start: 01-05-2021 End: 01-05-2021 Body mass index documented Chico grigsby MD Work Phone: Start: 01-05-2021 End: 01-05-2021 Depression screening Chico Collier MD Work Phone: Start: 01-05-2021 End: 01-05-2021 Docrev cur meds by chay Collier MD Work Phone: Start: 01-05-2021 End: 01-05-2021 Falls risk assessment documented Chico Collier MD Work Phone: Start: 01-05-2021 End: 01-05-2021 Flu imm no admin doc savita Chico harvey MD Work Phone: Start: 01-05-2021 End: 01-05-2021 Most recent diastolic blood pressure 80-89 mm hg Chico Collier MD Work Phone: Start: 01-05-2021 End: 01-05-2021 Most recent systolic blood pres>/equal 140 mm hg Chico Collier MD Work Phone: Start: 01-05-2021 End: 05-21-2021 Oncology colorectal screening donny 10 dna markrs Chico Collier MD Work Phone: Start: 01-05-2021 End: 01-05-2021 PPPS, subseq visit Chico Tyson Work Phone: Start: 01-05-2021 End: 01-05-2021 Pt falls assess docd w/o fall/injury past year Chico Collier MD Work Phone: Start: 01-05-2021 End: 01-05-2021 Scr dep neg, no plan reqd Chico ford MD Work Phone: Start: 01-05-2021 End: 04-09-2021 Screening mammography bi 2-view breast inc cad Chico Collier MD Work Phone: Start: 08-06-2020 End: 08-06-2020 Removal sutures under anesthesia same surgeon Chico Collier MD Work Phone: Start: 07-28-2020 End: 07-28-2020 Exc b9 lesion mrgn xcp sk tg t/a/l 0.5 cm/< Chico Collier MD Work Phone: Start: 12-31-2019 End: 12-31-2019 Depression screening Chico Collier MD Work Phone: Start: 12-31-2019 End: 12-31-2019 Docrev cur meds by chay Collier MD Work Phone: Start: 12-31-2019 End: 12-31-2019 Falls risk assessment documented Chico Collier MD Work Phone: Start: 12-31-2019 End: 12-31-2019 Flu imm no admin doc savita Chico harvey MD Work Phone: Start: 12-31-2019 End: 12-31-2019 Most recent diastolic blood pressure 80-89 mm hg Chico Collier MD Work Phone: Start: 12-31-2019 End: 12-31-2019 Most recent systolic blood pres>/equal 140 mm hg Chico Collier MD Work Phone: Start: 12-31-2019 End: 12-31-2019 PPPS, subseq visit Chico Tyson Work Phone: Start: 12-31-2019 End: 12-31-2019 Pt falls assess docd w/o fall/injury past year Chico Collier MD Work Phone: Start: 12-31-2019 End: 12-31-2019 Scr dep neg, no plan reqd Chico ford MD Work Phone: Start: 12-31-2019 End: 01-29-2020 Body mass index documented Chico grigsby MD Work Phone: Start: 11-27-2019 End: 01-25-2020 Screening mammography bi 2-view breast inc cad Chico Collier MD Work Phone: Start: 06-28-2019 End: 06-28-2019 Docrev cur meds by chay Collier MD Work Phone: Start: 06-28-2019 End: 06-28-2019 Most recent diastol blood pres >/equal 90 mm hg Chico Collier MD Work Phone: Start: 06-28-2019 End: 06-28-2019 Most recent systolic blood pres>/equal 140 mm hg Chico Collier MD Work Phone: Start: 02-07-2019 End: 02-07-2019 Serena Dixon ALEX Work Phone: Start: 12-28-2018 End: 12-28-2018 Body mass index documented Chico grigsby MD Work Phone: Start: 12-28-2018 End: 12-28-2018 Depression screening Chico Collier MD Work Phone: Start: 12-28-2018 End: 12-28-2018 Docrev cur meds by chay Collier MD Work Phone: Start: 12-28-2018 End: 12-28-2018 Falls risk assessment documented Chico Collier MD Work Phone: Start: 12-28-2018 End: 12-28-2018 Most recent diastolic blood pressure 80-89 mm hg Chico Collier MD Work Phone: Start: 12-28-2018 End: 12-28-2018 Most recent systolic blood pres>/equal 140 mm hg Chico Collier MD Work Phone: Start: 12-28-2018 End: 12-28-2018 PPPS, subseq visit Chico Tyson Work Phone: Start: 12-28-2018 End: 12-28-2018 Pt falls assess docd w/o fall/injury past year Chico Collier MD Work Phone: Start: 12-28-2018 End: 12-28-2018 Scr dep neg, no plan reqd Chico ford MD Work Phone: Start: 12-28-2018 End: 12-28-2018 Tavia Leavitt LPN Start: 11-23-2018 End: 12-11-2018 Screening mammography bi 2-view breast inc cad Chico Collier MD Work Phone: Start: 12-23-2017 End: 12-23-2017 Body mass index documented Chico grigsby MD Work Phone: Start: 12-23-2017 End: 12-23-2017 Current tobacco non-user cad cap copd pv dm Chico Collier MD Work Phone: Start: 12-23-2017 End: 12-23-2017 Docrev cur meds by chay Collier MD Work Phone: Start: 12-23-2017 End: 12-23-2017 Flu imm no admin doc savita Chico harvey MD Work Phone: Start: 12-23-2017 End: 12-23-2017 PPPS, subseq visit Chico Tyson Work Phone: Start: 12-23-2017 End: 12-23-2017 Pt falls assess docd w/o fall/injury past year Chico Collier MD Work Phone: Start: 12-23-2017 End: 12-23-2017 Scr dep neg, no plan reqd Chico ford MD Work Phone: Start: 12-23-2017 End: 12-23-2017 Falls risk assessment documented Chico Collier MD Work Phone: Start: 12-23-2017 End: 12-23-2017 Depression screen annual Chico harvey MD Work Phone: Start: 11-17-2017 End: 12-07-2017 Screening mammography bi 2-view breast inc cad Chico Collier MD Work Phone: Start: 09-19-2017 End: 09-19-2017 Current tobacco non-user cad cap copd pv dm Chico Collier MD Work Phone: Start: 09-19-2017 End: 09-19-2017 Docrev cur meds by chay Collier MD Work Phone: Start: 09-19-2017 End: 09-19-2017 Most recent diastol blood pres >/equal 90 mm hg Chico Collier MD Work Phone: Start: 09-19-2017 End: 09-19-2017 Most recent systolic blood pres>/equal 140 mm hg Chico Collier MD Work Phone: Start: 09-05-2017 End: 09-05-2017 Current tobacco non-user cad cap copd pv dm Chico Collier MD Work Phone: Start: 09-05-2017 End: 09-05-2017 Doc pt reas no pneumococcal Chico leonard MD Work Phone: Start: 09-05-2017 End: 09-05-2017 No pneumococcal admin Chico Collier MD Work Phone: Start: 09-05-2017 End: 09-05-2017 Removal sutures under anesthesia same surgeon Chico Collier MD Work Phone: Start: 08-29-2017 End: 08-29-2017 Exc b9 lesion mrgn xcp sk tg t/a/l 0.5 cm/< Chico Collier MD Work Phone: Start: 06-24-2017 End: 06-24-2017 Body mass index documented Chico grigsby MD Work Phone: Start: 06-24-2017 End: 06-24-2017 Docrev cur meds by chay Collier MD Work Phone: Start: 06-24-2017 End: 06-24-2017 Most recent diastol blood pres >/equal 90 mm hg Chico Collier MD Work Phone: Start: 06-24-2017 End: 06-24-2017 Most recent systolic blood pres>/equal 140 mm hg Chico Collier MD Work Phone: Start: 06-24-2017 End: 06-24-2017 Pt falls assess docd w/o fall/injury past year Chico Collier MD Work Phone: Start: 06-24-2017 End: 06-24-2017 Scr dep neg, no plan reqd Chico ford MD Work Phone: Start: 06-24-2017 End: 06-24-2017 Falls risk assessment documented Chico Collier MD Work Phone: Start: 06-24-2017 End: 06-24-2017 Depression screen annual Chico harvey MD Work Phone: Start: 03-24-2017 End: 03-24-2017 Most recent diastolic blood pressure 80-89 mm hg Chico Collier MD Work Phone: Start: 03-24-2017 End: 03-24-2017 Most recent systolic blood pres>/equal 140 mm hg Chico Collier MD Work Phone: Start: 03-24-2017 End: 03-24-2017 Body mass index documented Chico grigsby MD Work Phone: Start: 01-04-2017 End: 01-04-2017 Bone density scan Serena Dixon [employer] Work Phone: Start: 12-22-2016 End: 12-22-2016 Current tobacco non-user cad cap copd pv dm Chico Collier MD Work Phone: Start: 12-22-2016 End: 12-22-2016 Docrev cur meds by chay Collier MD Work Phone: Start: 12-22-2016 End: 12-22-2016 Flu imm no admin doc savita Chico harvey MD Work Phone: Start: 12-22-2016 End: 12-22-2016 Most recent diastol blood pres >/equal 90 mm hg Chico Collier MD Work Phone: Start: 12-22-2016 End: 12-22-2016 Most recent systolic blood pres>/equal 140 mm hg Chico Collier MD Work Phone: Start: 12-22-2016 End: 12-22-2016 PPPS, subseq visit Chico Tyson Work Phone: Start: 12-22-2016 End: 12-22-2016 Pt falls assess docd w/o fall/injury past year Chico Collier MD Work Phone: Start: 12-22-2016 End: 12-22-2016 Scr dep neg, no plan reqd Chico ford MD Work Phone: Start: 12-22-2016 End: 12-22-2016 Screening for malignant neoplasm of large intestine Serena Dixon LPN Work Phone: Start: 12-22-2016 End: 01-13-2017 Dxa bone density study 1/> sites axial skel Chico Collier MD Work Phone: Start: 12-22-2016 End: 12-22-2016 Body mass index documented Chico grigsby MD Work Phone: Start: 12-22-2016 End: 12-22-2016 Falls risk assessment documented Chico Collier MD Work Phone: Start: 12-22-2016 End: 12-22-2016 Depression screen annual Chico harvey MD Work Phone: Start: 11-05-2016 End: 11-29-2016 Screening mammography bi 2-view breast inc cad Chico Collier MD Work Phone: Start: 08-07-2016 End: 08-07-2016 Ophthalmic examination and evaluation Tavia Leavitt LPN Start: 12-22-2015 End: 12-22-2015 PPPS, subseq visit Chico Tyson Work Phone: Start: 12-22-2015 End: 12-22-2015 Scr dep neg, no plan reqd Chico ford MD Work Phone: Start: 11-03-2015 End: 11-17-2015 Mammogram, screening Chico Collier MD Work Phone: Start: 05-19-2015 End: 05-21-2015 Radex hips bilateral with pelvis 2 views Chico Collier MD Work Phone: Start: 11-28-2014 End: 11-28-2014 PPPS, subseq visit Chico Tyson Work Phone: Start: 10-30-2014 End: 11-08-2014 Mammogram, screening Chico Collier MD Work Phone: Start: 11-22-2013 End: 11-22-2013 PPPS, subseq visit Chico Tyson Work Phone: Start: 10-23-2013 End: 11-21-2013 Mammogram, screening Chico Collier MD Work Phone: Start: 10-13-2012 End: 10-13-2012 Mammogram, screening Chico Collier MD Work Phone: Start: 10-13-2011 End: 10-14-2011 Dxa bone density study 1/> sites axial skel Chico Collier MD Work Phone: Start: 09-09-2011 End: 09-15-2011 X-ray exam of hip Chico Tyson Work Phone: Start: 09-08-2011 End: 09-08-2011 Mammogram, screening Chico Collier MD Work Phone: Start: 07-09-2010 End: 07-23-2010 Mammogram, screening Chico Collier MD Work Phone: Start: 05-29-2007 End: 05-29-2007 Microscopic examination of cervical Papanicolaou smear Serena Dixon [employer] Work Phone: Start: 02-08-1996 End: 02-08-1996 Screening colonoscopy Tavia Leavitt [employer] Cholecystectomy Serena Dixon [employer] Work Phone: H/O: hysterectomy Obi Moran on [employer] H/O: hysterectomy Chico leonard MD Work Phone: H/O: hysterectomy Chico leonard MD Work Phone: H/O: hysterectomy Chico leonard MD Work Phone: H/O: hysterectomy Chico leonard MD Work Phone: H/O: hysterectomy Serena Pablo hy [employer] Work Phone: History of cataract extraction Obi Hardeep [employer] History of cataract extraction Chico Collier MD Work Phone: History of cataract extraction Serena Dixon [employer] Work Phone: History of cholecystectomy Sofia Collier MD Work Phone: Total hysterectomy Serena Quinteros chi [employer] Work Phone: Vaccine refused by patient A gretchendeloris Meier [employer] Vaccine refused by patient Sofia Collier MD Work Phone: Vaccine refused by patient Sofia Collier MD Work Phone: Vaccine refused by patient Sofia Collier MD Work Phone: Vaccine refused by patient Sofia Collier MD Work Phone: Vaccine refused by patient Rosalba Dixon [employer] Work Phone: Plan of Treatment Date Care Activity Detail Author Start: 06-26-2024 [facility] Start: 06-25-2024 Simple rpr scalp/neck/ax/genit/trunk 7.6-12.5cm RPR S/N/AX/GEN/TRK7.6-12. 5CM [facility] Start: 2023 Blood count complete auto&auto difrntl wbc [facility], [facility], [employer]. Start: 2023 [facility] lic [facility] [place] [email or web address] [facility]. Start: 2023 [facility] [place] [employer] Start: 2023 Screening mammograph y bi 2-view breast inc [facility], [facility]. Start: 01-26-2023 Radex hand minimum 3 views [facility] [place] [employer], [facility]. Start: 12-08-2022 Screening mammograph y bi 2-view breast [facility] cad [facility]. Start: 12-24-2021 Screening mammograph y bi 2-view breast [facility] [employer]. CBC W Auto Different ial panel - Blood [facility] Patient Education ED Laceration, All Closures [facility] Work Phone: Patient referral [facility] Work Phone: Immunizations Immunization Date Immunization Notes Care Provider [facility] 06-25-2024 tetanus toxoid, reduced diphtheria toxoid, and acellular pertussis vaccine, adsorbed Dr. Joel Muniz MD Work Phone: [facility] 04-10-2020 Chico thakkar MD Work [facility]: [facility]. 03-13-2020 Chico thakkar MD Work Phone: [facility] [place] [email or web address] [facility] 11-22-2013 Chico thakkar MD Work Phone: [facility].; [place] [employer] [facility]. 11-22-2013 influenza, seasonal, injectable Chico Collier MD Work Phone: [facility] [place] [employer]. 06-06-2006 tetanus toxoid, reduced diphtheria toxoid, and acellular pertussis vaccine, adsorbed Chico Collier MD Work Phone: [facility]; [facility] NEGATED: Highlighted row has not occurred! influenza, injectable, quadrivalent, contains preservative Chico Collier MD Work Phone: [facility]; [facility] NEGATED: Highlighted row has not occurred! pneumococcal conjugate vaccine, 13 valent Chico Collier MD [facility]: [facility]; [facility] NEGATED: Highlighted row has not occurred! pneumococcal polysaccharide vaccine, 23 valent Chico Collier MD Work Phone: [facility]; [facility] NEGATED: Highlighted row has not occurred! zoster vaccine, live Chico Collier MD Work Phone: [facility]; [facility] Payers Date Payer Category Payer Self-pay 2022 Medicare [id number] 2022 Unknown [id number] 1945 Unknown [id number] 2.16.8 40.1.553223.3.579.2.651 1945 Unknown [id number] 2.16.8 40.1.357673.3.579.2.651 1945 Unknown [id number] 2.16.84 0.1.118594.3.579.2.651 1945 Unknown [id number] 2.16.84 0.1.148795.3.579.2.651 1945 Unknown [id number] 2.16.84 0.1.848974.3.579.2.651 1945 Unknown [id number] 2.16.8 40.1.338257.3.579.2.627 1945 Unknown [id number] 2.16.8 40.1.352105.3.579.2.627 1945 Unknown [id number] 2.16.8 40.1.642739.3.579.2.627 Unknown Unknown [id number] 2.16.8 40.1.730031.3.579.2.462 Unknown [id number] 2.16.8 40.1.958813.3.579.2.462 Unknown [id number] 2.16.8 40.1.194906.3.579.2.462 Unknown [id number] 2.16.8 40.1.374414.3.579.2.462 Unknown [id number] 2.16.8 40.1.137807.3.579.2.462 Unknown [id number] 2.16.8 40.1.150436.3.579.2.462 Unknown [id number] 2.16.8 40.1.292012.3.579.2.462 Unknown [id number] 2.16.8 40.1.205359.3.579.2.462 Unknown [id number] 2.16.8 40.1.685709.3.579.2.462 Unknown [id number] 2.16.8 40.1.687911.3.579.2.462 Unknown [id number] 2.16.8 40.1.178303.3.579.2.462 Social History Date Type Detail Facility [facility], [facility]. Retired. [facility].; [facility], [facility]. Tobacco smoking status No Smokin g Status Entered [facility] Start: 1945 Sex Assigned At Female A [facility] Start: 06-25-2024 End: 07-03-2024 Tobacco smoking status LAIS Never smoked tobacco (finding) [facility] Functional Status Date Assessment Result Facility 03-03-2023 Functional Status Room check performed [facility] 03-02-2023 Functional Status [facility] 03-02-2023 Functional Status [facility] 03-02-2023 Functional Status [facility] 03-02-2023 Functional Status 12 [facility] 03-01-2023 Functional Status [facility] 03-01-2023 Functional Status [facility] 03-01-2023 Functional Status [facility] 02-28-2023 Functional Status [facility] 02-28-2023 Functional Status [facility] 02-28-2023 Functional Status [facility] 02-28-2023 Functional Status [facility] 02-27-2023 Functional Status [facility] 02-25-2023 Functional Status Antiembolism S tocking Off/Removed bilateral knee high [facility] 02-24-2023 [facility] Functional Status 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 - 02/09/23 [facility] 02-23-2023 Functional Status [facility] 02-22-2023 Functional Status Evening Snack Percent 1 00 [facility] 02-22-2023 Functional Status Hospital bed [facility] 02-21-2023 [facility] 02-20-2023 Functional Status Orthotics, Device Worn Per Schedule Yes [facility] 02-19-2023 [facility] 02-18-2023 [facility] 02-18-2023 [facility] 02[facility]17-2023 Functional Status [facility] 02-17-2023 [facility] 02-16-2023 Functional Status Personal ADL [facility] 02-15-2023 Functional Status Sensory Deficits None A galdino Gail 02-15-2023 Functional Status Up to Chair Returned to bed [facility] 02-15-2023 Functional Status Room check performed [facility] 02-15-2023 Functional Status Supervised 1 [facility] to[facility] 02-15-2023 Functional Status [facility] 02-15-2023 Functional Status Valid [place] [facility] 02-15-2023 Functional Status [facility] 02-14-2023 Functional Status bilateral knee high sabas lied/on [facility] 02-14-2023 Functional Status [facility] 02-14-2023 [facility]-14[facility] Functional Status [facility] 02-14-2023 Functional Status 7pm-7am [facility] 02-14-2023 Functional Status [facility] 02-13-2023 Functional Status [facility] 02-12-2023 Functional Status [facility] 02-12-2023 Functional Status [facility] 02-12-2023 Functional Status [facility] 02-11-2023 Functional Status [facility] 02-11-2023 Functional Status [facility] 02-10-2023 Functional Status [facility] 02-10-2023 Functional Status [facility] 02-10-2023 Functional Status 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 - 02/09/23 Daughter not present at time of OT evaluation but patient was better able to provide history this date and most 6 [facility] 02-10-2023 Functional Status Mod A [facility] 02-09-2023 Functional Status Sensory Deficits None A [facility] 02-09-2023 Functional Status Living Situation [facility] 02-09-2023 [facility] Date Assessment Result Facility 03-03-2023 Mental Status Oriented x 4 [facility] 03-02-2023 Mental Status [facility]n 03-02-[address] [facility] [facility] 02-26-2023 Mental Status [facility] wn 02-15-2023 Mental Status [facility]ed x 4 [facility] 02-15-[facility]23 [facility] 02-14-[facility]23 [facility]14[facility]23 Mental Status [facility] Clinical Notes 02-08-2023 to 07-03-2024 Note Date & Type Note Facility 07-03-2024 Progress note [facility] 06-28-2024 Evaluation note Diagnosis Onset Date Resolution Laceration of forearm, left acute June 28, 2024 2 :25pm Anemia acute July 03, 2024 9:56am Occult blood positive stool acute July 03, 2024 9 :56am [facility] Work Phone: 1(934) 220-691705-22-2025 Evaluation note* Diagnosis Onset Date Resolution Status Admit Date Laceration of forearm, left inactive June 28, 2024 2:25pm Anemia acute July 03, 2024 9:56am Occult blood positive stool acute July 03, 2024 9:56am [facility] Work Phone: 1(655) 915-414405-22-2025 Evaluation note* Diagnosis Onset Date Resolution Status Admit Date Laceration of forearm, left inactive June 28, 2024 2:25pm Anemia acute July 03, 2024 9:56am Occult blood positive stool acute July 03, 2024 9:56am Laceration of forearm, left inactive July 06, 2024 2:14pm [facility] Work Phone: 1(602) 367-287805-22-2025 Evaluation note* Diagnosis Onset Date Resolution Status Admit Date Laceration of forearm, left inactive June 28, 2024 2:25pm Anemia acute July 03, 2024 9:56am Occult blood positive stool acute July 03, 2024 9:56am Laceration of forearm, left inactive July 06, 2024 2:14pm Laceration of forearm, left inactive July 13, 2024 1:56pm [facility] Work Phone: 1(149) 917-588705-19-2025 Radiology Diagnostic study note [facility] Imaging Services [address] [place] [address] Forearm 2 Views MR#: [id number] Acct: [id number] Name: ROSARIO MCNALLY Rep #: [id number] : 1945 F 78 From: Jess Rondon MD PCP: Dr. Yahaira Winn MD Status: REG ER Study:Forearm 2 Views Date of Exam: 06/07 11/01 Exam# [id number] Ordering Dr: Sofia Muniz MD PROCEDURE: FOREARM 2 VIEWS 06/25/2024 REASON FOR EXAM: FALL TECHNIQUE: 2 view(s) of the left forearm COMPARISON: None FINDINGS: No displaced fracture or traumatic malalignment. Joint spaces are predominantlymaintained. Mild decrease in bone mineral density. Bandage material limits evaluation of the soft tissues.. RAD/Forearm 2 Views IMPRESSION: No displaced fracture of the left forearm. Mild osteopenia slightly limits thisevaluation. Reading Location: [id number] CC: Dr. Yahaira Winn MD; Dr. Joel Muniz MD ~ Account Manager Sales Representative: Signed [facility]01-25-2024 Nurse Progress note Nursing GG Entered On: 03/03/2023 9:32 EST Performed On: 03/03/2023 9:32 EST by Myrna West LPN Nursing GG's OT GG Grid Eating : Independent Myrna West LPN - 03/03/2023 9:32 EST Digitally Signed by Myrna West LPN on 03/03/2023 09:32 AM [facility] [id number] Note Discharge Instructions Thank you for allowing [facility] to assist you with your healthcare needs. The following is importantdischarge information regarding your hospital visit. Your Care Team CHICO COLLIER MD Your Diagnosis Lung nodule Orthostatic hypotension Parkinson's disease Right wrist fracture Subarachnoid hemorrhage What to do next Follow Up Appointments Follow Up with CHICO ELIZONDO MD, Orthopedic When 03/25/2023 02:00 PM EST Why: Orthopedic follow up - Where: [facility] [address] [place] [phone] [phone] Follow Up with CHELSEA MARIN PA-C When 03/17/2023 12:10 PM EST Why: Neurology follow up - Where: [address] [place] [address] [phone] Follow Up with CHICO COLLIER MD When 03/09/2023 01:40 PM EST Why: Take Discharge Instructions to Dr Billy - Where: [address] [place] [address]- [phone] Follow Up with URIAH BOCANEGRA MD, Neurosurgery When Only if needed Why: Neurosurgeon - Where: [address] [facility] [place] [address]- [phone] The Following Activity and Diet Have Been Ordered for You Discharge Driving Restrictions - Ordered -- No driving permitted, 03/03/23 8:47:00 EST Transfer of Care Activity - Ordered -- As instructed by therapy, Shower with assistance - Apply stockings on AM/off PM daily, this willhelp promote circulation - Incentive spirometer 10/hr while awake, be sure to take deeps breaths -,03/03/23 8:47:00 EST Transfer of Care Activity - Ordered -- Non-Weight Bearing Activity Only, right wrist - Leave sprint in place, ok to remove splint for active and passive ROM -, 03/03/23 8:47:00 EST Discharge Dietary Supplement - Ordered -- Ensure Plus High Protein, acLunch - Transfer of Care Diet - Ordered -- Type of Diet: Regular Diet, hand cut -, 03/03/23 8:47:00 EST The Following Treatments Have Been Ordered for You Discharge Labs No qualifying data available. Discharge Radiology No qualifying data available. Other Therapies Transfer of Care OT - Ordered -- Reason for therapy: Eval and treat, 03/03/23 8:47:00 EST Transfer of Care PT - Ordered -- Reason for therapy: Eval and treat -, 03/03/23 8:47:00 EST Transfer of Care Speech Therapy - Ordered -- Reason for therapy: Eval and treat -, 03/03/23 8:47:00 EST Post Acute Orders Transfer of Care Admission Level of Care - Ordered -- Level of Care SNF, 03/03/23 8:47:42 EST Transfer of Care Code Status - Ordered -- Full Code, Constant Order Transfer of Care Orders Electronically Signed By - Ordered -- 03/03/23 10:00:00 EST, TRACI LANCE APRN-PLATING INSPECTOR Transfer of Care Prognosis - Ordered -- Fair, Patient Aware: Yes Transfer of Care Rehab Potential - Ordered -- Rehab potential fair, 03/03/23 8:47:42 EST Transfer of Care Skin Breakdown Prevention - Ordered -- When to Check Skin: Every two hours, Elevate your heels while in bed, turn and reposition yourself while in bed, redistribute your weight while sitting up - Report any skin changes you notice - Transfer of Care Weight Order - Ordered -- When to Weigh: Tuesday, Report any changes of 2 lbs in 24 hours or 5 lbs in 1 week to your Physician - Allergies Trimox (Hives) Medications Please ask your primary doctor or pharmacist before taking any other medication not listed, including over the counter drugs, herbal medications, vitamins and or supplements as they may interact withyour home medications. What How Much When Instructions Last Dose New acetaminophen (Tylenol 325 mg oral capsule) 650 Milligram by mouth Every 4 hours as needed for Muscle pain New Al hydroxide/ Mg hydroxide/ simethicone (Maalox) by mouth Every 6 hours as needed for Indigestion New docusate (Colace 100 mg oral capsule) 1 cap by mouth Two (2) times a day as needed for Constipation New magnesium hydroxide (Milk of Magnesia) 30 Milliliter by mouth Every day as needed for Constipation New polyethylene glycol 3350 (Miralax Powder Packet) by mouth Once a day as needed for Constipation Changed ferrous sulfate (ferrous sulfate 325 mg (65 mg elemental iron) oral tablet) 1 tab(s) by mouth Every other day Unchanged atorvastatin (atorvastatin 10 mg oral tablet) 1 tab(s) by mouth Once a day Pickup at [facility] Unchanged carbidopa-levodopa (carbidopa-levodopa 25 mg-100 mg oral tablet) 1 tab(s) by mouth Four (4) times a day Pickup at [facility] Unchanged escitalopram (escitalopram 10 mg oral tablet) 1 tab(s) by mouth Once a day Pickup at [facility] Unchanged midodrine (midodrine 5 mg oral tablet) 1 tab(s) by mouth Three (3) times a day Pickup at [facility] Pharmacy Information [facility] 1724: [address], [place] [phone] What How Much When Comments Stop Taking amLODIPine (amLODIPine 5 mg oral tablet) 1 tab(s) by mouth Once a day Stop Taking chondroitin-glucosamine (Brent Move Free 500 mg-400 mg oral tablet) 1 tab by mouth Once a day Please take this list to your next doctor s visit. Bring all medications you take, including over the counter medications, herbals and other supplements with you to your doctor s visit. Patients and families are reminded to discard old lists and to update any records with all medication providers or retail pharmacies. Education Materials Subarachnoid Hemorrhage Subarachnoid hemorrhage is bleeding between the brain and the layer that covers the brain. The bleeding puts pressure on the brain, and it stops blood from going to some areas of the brain. If this bleeding is not treated, it may cause brain damage, stroke, or . This is an emergency. You must be treated in the hospital right away. You are more likely to get this condition if you: Smoke. Have high blood pressure. Drink too much alcohol. Are older than age 50. Are female, especially if you have stopped getting your period for a year or longer (menopause). Have a family history of burst blood vessels (aneurysms). Have a certain syndrome that leads to one of these: ? Kidney disease. ? Disease of tissues like bones, blood, and fat (connective tissues). Signs of this bleeding condition include: Sudden, very bad headache. It may feel like the worst headache you have ever had. Feeling sick to your stomach (nausea) or throwing up (vomiting), especially if you have other signssuch as a headache. Sudden weakness or loss of feeling (numbness) in your face, arm, or leg, especially on one side of the body. Sudden trouble with any of these: ? Walking. ? Moving an arm or leg. ? Talking. ? Understanding what people say. ? Swallowing. ? Seeing out of one eye or both eyes. Sudden confusion. Seeing double. Loss of balance. Sensitivity to light. Stiff neck. Trouble staying awake. Passing out (fainting). Follow these instructions at home: Medicines Take ejmd-qce-wdpbqhi and prescription medicines only as told by your doctor. Do not take any medicines that contain aspirin or NSAIDs (like ibuprofen) unless your doctor says that it is safe to take them. Lifestyle Do not use any products that have nicotine or tobacco. These include cigarettes and e-cigarettes. If you need help quitting, ask your doctor. Limit alcohol to 1 drink a day for non women and 2 drinks a day for men. One drink is equalto: ? 12 oz of beer. ? 5 oz of wine. ? 1 oz of hard liquor. Eating and drinking Ask your doctor if it is safe for you to eat and drink. You may need tests to make sure that you can swallow safely (swallow studies). Driving Do not drive until your doctor says that it is safe to drive. Do not drive or use heavy machinery while taking prescription pain medicine. General instructions Do therapy as recommended. This may include: ? Physical therapy (PT). ? Occupational therapy (OT). ? Speech-language therapy. Rest and limit activity as told by your doctor. Rest helps your brain to heal. Make sure you: ? Get plenty of sleep. ? Avoid activities that cause stress to your body or mind. Check your blood pressure as told by your doctor. Write down your blood pressure. Keep all follow-up visits as told by your doctors. This is important. Contact a doctor if: You have a stiff neck. You have a cough. You have a fever. Get help right away if: You have any signs of a stroke. BE FAST is an easy way to remember the main warning signs: ? B - Balance. Signs are dizziness, sudden trouble walking, or loss of balance. ? E - Eyes. Signs are trouble seeing or a sudden change in how you see. ? F - Face. Signs are sudden weakness or loss of feeling of the face, or the face or eyelid drooping on one side. ? A - Arms. Signs are weakness or loss of feeling in an arm. This happens suddenly and usually on oneside of the body. ? S - Speech. Signs are sudden trouble speaking, slurred speech, or trouble understanding what peoplesay. ? T - Time. Time to call emergency services. Write down what time symptoms started. You have other signs of a stroke, such as: ? A sudden, very bad headache with no known cause. ? Feeling sick to your stomach. ? Throwing up. ? Jerky movements you cannot control (seizure). These symptoms may be an emergency. Do not wait to see if the symptoms will go away. Get medical help right away. Call your local emergency services (911 in the [place] Do not drive yourself to the hospital. Summary Subarachnoid hemorrhage is bleeding in the brain. It is an emergency. You must be treated in the hospital right away. Follow instructions from your doctor about eating, resting, and taking medicines. Do not take any medicines that contain aspirin or NSAIDs (like ibuprofen) unless your doctor says that it is safe to take them. This information is not intended to replace advice given to you by your health care provider. Make sure you discuss any questions you have with your health care provider. Document Released: 05/21/2013 Document Revised: 01/06/2018 Document Reviewed: 11/03/2017 [employer] Patient Education 2020 [employer]. Additional Information VACCINATE! IT SAVES LIVES! Members of the community who have not yet received the COVID-19 vaccine and would like to receive it can visit one of [facility] vaccine clinics. There are many vaccine clinic locations within the [facility]. For locations and available times, please visit https://gettheshot.coronavirus.[place].gov/. It is important to note that some COVID mobile vaccine clinics are held outdoors and may be canceled in rainy or stormy conditions. To learn more about pediatric vaccinations (ages 5-11), we invite you to visit the [employer] [facility] webpage. https://www.[email or web address]/pages/[email or web address]-Rxpub-Cvfmgfsptlj-Idmyqspwhq-Fwori-Kae stions.htmlTo learn more about the COVID-19 vaccine, we invite you to visit the CDC website for a list of frequently asked questions.https://www.cdc.gov/coronavirus/2019-ncov/vaccines/faq.html [facility] Patient Portal Access Instructions: Stay connected with your healthcare team and access your personal medical information anytime with the [facility] Patient Portal. Please follow the directions below to create your [facility] account: 1.Access the email account you provided upon registration to the hospital/physician office.2.Look for an invitation email from [facility].3.Open the email and access the invitation link: AcceptInvitation to [facility].4.Fill in the required lujan to create your account. To access your account, visit [employer]. Click the blue button labeled Access Patient Portal and then log in with the username and password that you created in the steps above. You will be able to view your test results, lab results, a summary of your visits, upcoming appointments and more. There is also a convenient messaging option where you can send secure messages to your p rovider. In addition, you will have the ability to download any documents or summaries to your computer and/or send the information securely to a physician. Remember that your healthcare information is confidential, so carefully consider who you will allowto register on the [place] [facility] Patient Portal for access to your information. You can also access the [place] [facility] Patient Portal on the [place] [facility] sabas. Simply click on Patient Portal and then log into your account. If you would like to receive a full copy of your medical records, please contact the [facility] Medical Records Department by calling [phone], Tuesday through Tuesday between 8 a.m. and 4:30 p.m. HOW TO SAFELY DISPOSE OF PRESCRIPTION MEDICATIONS Please use one of the following methods to safely dispose of your unused medications. 1.Use a drug disposal kit: the drug disposal pouch allows you to safely discard your old and unuseddrugs. Ask your nurse to give you one when you are discharged.2.Visit a local take-back location: Many local pharmacies and police departments have programs that collect old and unwanted prescriptiondrugs. Call your local pharmacy or go to http://[employer].Octmami/0A8Wy2z to find one close to you.3.Make use of household items: Use cat litter or old coffee grounds to dispose medications if other options arenot available. Mix your drugs with these household products, seal them in an airtight container andthrow it into the garbage. Call [facility]: [phone] to be sure your drugs can be disposed of in this way. Some medicines may require a different approach.4.Never flush your medications down the toilet. IF YOU HAVE BEEN PRESCRIBED AN OPIOID FOR PAIN If you have been prescribed an opioid (such as hydrocodone, oxycodone or morphine), it is critical to understand the possible side effects and risks of opioid pain medications. Even when taken as directed, opioids can have several side effects including: Tolerance, meaning you might need to take more of a medication for the same pain relief. Nausea, vomiting and/or constipation. Sleepiness, dizziness, dry mouth, confusion, depression or itching. Physical dependence, meaning you have withdrawal symptoms when a medication is stopped, can develop within a few days. KNOW YOUR RESPONSIBILITIES It is important to know exactly how much and how often to take the opioid pain medications you are prescribed. Never take opioids in higher amounts or more often than prescribed. Do not combine opioids with alcohol or other drugs that cause drowsiness, such as benzodiazepines, also known as benzos, including diazepam and alprazolam, muscle relaxants or sleep aids. Never sell or share prescription opioids. This is illegal. Store opioids in a secure place and out of reach of others (including children, family, friends and visitors). The last page of this document has been signed and retained as a CHART COPY. Signatures Patient Education Materials Subarachnoid Hemorrhage, [id number] Medication Leaflets My discharge plan and instructions have been reviewed and explained to me and I,ROSARIO MCNALLY understand my current condition and have read and understand these discharge instructions. I have received a written copy of the plan/instructions. If I have questions, I am aware that I should contact my doctor. Patient/Database Administration Project Manager Signature: Date/Time: Relationship to Patient: Witness Name/Signature: Date/Time: Everett [id number] Nurse Progress note Nursing GG Entered On: 03/02/2023 22:09 EST Performed On: 03/02/2023 22:09 EST by Saima Young LPN Nursing GG's OT GG Grid Eating : Independent Saima Young LPN - 03/02/2023 22:09 EST Digitally Signed by Saima Young LPN on 03/02/2023 10:09 PM Everett [id number] Hospital Discharge instructions Patient Education 03/02/2023 18:57:13 Subarachnoid Hemorrhage, Cxtf-fm-[id number] Subarachnoid Hemorrhage Subarachnoid hemorrhage is bleeding between the brain and the layer that covers the brain. The bleeding puts pressure on the brain, and it stops blood from going to some areas of the brain. If this bleeding is not treated, it may cause brain damage, stroke, or . This is an emergency. You must be treated in the hospital right away. You are more likely to get this condition if you: Smoke. Have high blood pressure. Drink too much alcohol. Are older than age 50. Are female, especially if you have stopped getting your period for a year or longer (menopause). Have a family history of burst blood vessels (aneurysms). Have a certain syndrome that leads to one of these: ?Kidney disease. ?Disease of tissues like bones, blood, and fat (connective tissues). Signs of this bleeding condition include: Sudden, very bad headache. It may feel like the worst headache you have ever had. Feeling sick to your stomach (nausea) or throwing up (vomiting), especially if you have other signssuch as a headache. Sudden weakness or loss of feeling (numbness) in your face, arm, or leg, especially on one side of the body. Sudden trouble with any of these: ?Walking. ?Moving an arm or leg. ?Talking. ?Understanding what people say. ?Swallowing. ?Seeing out of one eye or both eyes. Sudden confusion. Seeing double. Loss of balance. Sensitivity to light. Stiff neck. Trouble staying awake. Passing out (fainting). Follow these instructions at home: Medicines Take lhwn-akw-lgqvtdq and prescription medicines only as told by your doctor. Do not take any medicines that contain aspirin or NSAIDs (like ibuprofen) unless your doctor says that it is safe to take them. Lifestyle Do not use any products that have nicotine or tobacco. These include cigarettes and e-cigarettes. If you need help quitting, ask your doctor. Limit alcohol to 1 drink a day for non women and 2 drinks a day for men. One drink is equalto: ?12 oz of beer. ?5 oz of wine. ?1 oz of hard liquor. Eating and drinking Ask your doctor if it is safe for you to eat and drink. You may need tests to make sure that you can swallow safely (swallow studies). Driving Do not drive until your doctor says that it is safe to drive. Do not drive or use heavy machinery while taking prescription pain medicine. General instructions Do therapy as recommended. This may include: ?Physical therapy (PT). ?Occupational therapy (OT). ?Speech-language therapy. Rest and limit activity as told by your doctor. Rest helps your brain to heal. Make sure you: ?Get plenty of sleep. ?Avoid activities that cause stress to your body or mind. Check your blood pressure as told by your doctor. Write down your blood pressure. Keep all follow-up visits as told by your doctors. This is important. Contact a doctor if: You have a stiff neck. You have a cough. You have a fever. Get help right away if: You have any signs of a stroke. BE FAST is an easy way to remember the main warning signs: ?B - Balance. Signs are dizziness, sudden trouble walking, or loss of balance. ?E - Eyes. Signs are trouble seeing or a sudden change in how you see. ?F - Face. Signs are sudden weakness or loss of feeling of the face, or the face or eyelid droopingon one side. ?A - Arms. Signs are weakness or loss of feeling in an arm. This happens suddenly and usually on one side of the body. ?S - Speech. Signs are sudden trouble speaking, slurred speech, or trouble understanding what people say. ?T - Time. Time to call emergency services. Write down what time symptoms started. You have other signs of a stroke, such as: ?A sudden, very bad headache with no known cause. ?Feeling sick to your stomach. ?Throwing up. ?Jerky movements you cannot control (seizure). These symptoms may be an emergency. Do not wait to see if the symptoms will go away. Get medical help right away. Call your local emergency services (911 in the [place] Do not drive yourself to the hospital. Summary Subarachnoid hemorrhage is bleeding in the brain. It is an emergency. You must be treated in the hospital right away. Follow instructions from your doctor about eating, resting, and taking medicines. Do not take any medicines that contain aspirin or NSAIDs (like ibuprofen) unless your doctor says that it is safe to take them. This information is not intended to replace advice given to you by your health care provider. Make sure you discuss any questions you have with your health care provider. Document Released: 05/21/2013 Document Revised: 01/06/2018 Document Reviewed: 11/03/2017 [employer] Patient Education 2020 [employer] Follow Up Care 02/15/2023 16:57:34 With:URIAH BOCANEGRA MD, Neurosurgery Address: [address] [facility] [place] [address] [phone] When: only if needed Comments:Neurosurgeon - With:CHICO COLLIER MD Address: [address] [place] [address]- [phone] When:03/09/2023 13:40:00 Comments:Take Discharge Instructions to Dr Visit - With:CHELSEA MARIN PA-C Address: [address] [place] [address]- [phone] When:03/17/2023 12:10:00 Comments:Neurology follow up - With:CHICO ELIZONDO MD, Orthopedic Address: [facility] [address] [address] [phone] When:03/25/2023 14:00:00 Comments:Orthopedic follow up - Everettsejal Singer 01-24-2024 Nurse Progress note Nursing GG Entered On: 03/02/2023 11:33 EST Performed On: 03/02/2023 11:33 EST by Myrna West LPN Nursing GG's OT GG Grid Eating : Independent Myrna West LPN - 03/02/2023 11:33 EST Digitally Signed by Myrna West LPN on 03/02/2023 11:33 AM [id number] Physical medicine and rehab Progress note Rehab Note Chief Complaint: Seeing this patient for reevaluation of therapy progress and subarachnoid hemorrhage, right wrist fracture History of Present Illness: Seeing this patient for reevaluation of therapy and subarachnoid hemorrhage. Patient participates in acute inpatient rehabilitation with PT, OT and ST services. 77-year-old female admitted to [facility] inpatient rehab from [facility] stay 02/08 - 02/15 who is past medical history of Parkinson's, hypertension, lipidemia, depression, and right lower extremity weakness who originally presented to [facility] and was transferred to [facility] after imaging showed subarachnoid hemorrhage. Patient reported he fell down 8-10 steps at home due to altered mental status. CT of the head obtained showing small subarachnoid hemorrhage in the right occipital lobe without mass effect or midline shift. Neurology and neurosurgical team consulted and deemedthere is no surgical intervention warranted. Patient was found to have multiple positive orthostatic hypotension so was initiated on fludrocortisone and IV fluids. Atenolol discontinued and then beeninitiated on amlodipine 5 mg daily. Later blood pressure medications were adjusted as fludrocortisone was discontinued and midodrine was increased to 5 mg. Sinemet dose was adjusted to 4 times daily rather than 2 tabs twice daily to try to avoid orthostatic hypotension. Patient is to avoid aspirin and NSAIDs for the next [address] of the chest was obtained showed a 3 mm nodule of the right upper lobe. She was recommended to have a follow-up CT in 6 months in outpatient setting. Patient had a previous fall 1 week prior to this hospitalization with a right wrist fracture, right wrist splint is currently in place and will need to follow-up with the orthopedics. She was then found to have hypokalemia and was replaced. UA/ C&S obtained with culture showing greater than 100,000 Enterococcus facialis. Today patient is sitting wheelchair watching TV, reports she is doing fine, states she has made good progress with therapy and is gaining her strength back slowly. Denies any uncontrolled pain or discomfort. Discussed with nursing. Medications reviewed. Goal is to transition to SNF in [place]. Denies any concerns about discharge. Tentative discharge date 03/03/2023. Medication List Active Medications Ordered acetaminophen: 650 mg, 2 tab(s), Oral, q4h, PRN: Muscle pain. Al hydroxide/Mg hydroxide/simethicone: 30 mL, Oral, q6h, PRN: Indigestion. atorvastatin: 10 mg, 1 tab(s), Oral, qDay. carbidopa-levodopa: 1 tab(s), Oral, QID. docusate: 100 mg, 1 cap(s), Oral, BID, PRN: Constipation. escitalopram: 10 mg, 1 tab(s), Oral, qDay. ferrous sulfate: 325 mg, 1 tab(s), Oral, Every other day. glucagon: 1 mg, 1 mL, Intramuscular, AsDirected, PRN: Hypoglycemia. glucose: 16 gram(s), 4 tab(s), Chewed, AsDirected, PRN: Hypoglycemia. glucose: 12.5 gram(s), 25 mL, IV Push, AsDirected, PRN: Hypoglycemia. glycerin: 1 supp, Rectal, Daily, PRN: Constipation. magnesium hydroxide: 30 mL, Oral, Daily, PRN: Constipation. midodrine: 5 mg, 1 tab(s), Oral, TID. .PharmacyCommunication: 1 EA, Miscellaneous, qDay. polyethylene glycol 3350: 17 gram(s), 15 mL, Oral, qDay, PRN: Constipation. Documented amLODIPine: 5 mg, 1 tab(s), Oral, qDay, 0 Refill(s). atorvastatin: 10 mg, 1 tab(s), Oral, qDay, 30 tab(s), 0 Refill(s). carbidopa-levodopa: 1 tab(s), Oral, QID, 0 Refill(s). chondroitin-glucosamine: 1 tab, Oral, qDay, 0 Refill(s). escitalopram: 10 mg, 1 tab(s), Oral, qDay, 30 tab(s), 0 Refill(s). ferrous sulfate: Oral, qDay, takes 65 mg, 0 Refill(s). midodrine: 5 mg, 1 tab(s), Oral, TID, 0 Refill(s). Medications Inactivated in the Last 72 Hours midodrine: 10 mg, 2 tab(s), Oral, TID. Social history: Social support: Lives with daughter Home set-up: Single level home, first-floor bedroom/bathroom. Barriers to discharge: Time since onset, safety awareness, past medical history Review of Systems: General: Appetite is good Respiratory: Denies shortness of breath, cough, or congestion Cardiovascular: Denies chest pain or chest pressure Musculoskeletal: No uncontrolled pain Psychiatric: No reported change in cognition Vitals Signs(Last 24 hrs)__Last Charted Minimum Maximum Heart Rate80(MAR 01 20:32)80(MAR 01 20:32)80(MAR 01 20:32) CPA227(MAR 02 05:43)111(MAR 01 08:55)H 152(MAR 01 20:32) DBP60(MAR 02 05:43)60(MAR 02 05:43)74(MAR 01 08:55) Physical Exam: General: No acute distress, alert and oriented. Appears comfortable sitting in wheelchair watching TV Respiratory: Lungs are clear to auscultation. Respirations are nonlabored on room air Cardiovascular: Regular rate and rhythm. No murmur. No bradycardia or tachycardia Gastrointestinal: Abdomen is soft nontender nondistended. Bowel sounds normal x4. Arterial: 2/4 distal pulses bilateral lower extremities Edema: Trace edema to the bilateral extremities. No calf tenderness. BAHMAN hose in place bilaterally Musculoskeletal: Mild polyarthritis Spinal curvatures: Normal. No spinal or paraspinal tenderness Weight bearing status/transfers/ADLs: Nonweightbearing right wrist. Ambulated 300 feet with gait belt and rolling walker. Touch assist walk 150 feet. Touch assist for sit to stand. Touch assist for chair to bed transfer. Touch assist for toilet transfer. Touch assist walk 10 feet. Touch assist walk50 feet with 2 turns. Set up, visual cues with 80% accuracy for phonation. Modified independence with 80% accuracy for speech intelligibility at sentence level. Skin: Thin, dry, and atrophic. Splint in place to the right wrist, neurovascular check intact. Neurological: Cranial nerves intact Slight masked facies Weak voice Slight right facial weakness 4/5 bilateral upper extremity strength 4+/5 bilateral lower extremity strength Decreased right hand grasp Normal left hand grasp Normal shoulder range of motion bilaterally 1/4 bilateral upper extremity reflexes 1/4 bilateral lower extremity reflexes Psychiatric: Alert. Oriented. Pleasant. Cooperative. Assessment: Right occipital subarachnoid hemorrhage. Right wrist fracture. Plan: Continue acute rehabilitation physical and occupational therapy services. Gait mobility ADLs and self-care. Plan respite ECF at [facility] with long-term goal return back home with daughter to single level set up. Continue Lexapro low-dose daily. Iron every other day supplement. Splint right wrist with plan orthopedic follow-up March 15. Risks/benefits of meds, treatments considered. Therapy notes reviewed. Discussed with staff. PMH/SH reviewed and unchanged Note: This dictation was created with assistance of voice recognition software. Phonic and/or minorgrammatical errors may exist. Medications reviewed and are up to date IJulia LPN, ian scribing for, and in the presence of Dr. Radha HENLEY. I, Dr. Radha HENLEY , personally performed the services described in this documentation, as described by Julia San LPN in my presence and it is both accurate and complete. Digitally Signed by STAN GARCIA DO on 03/02/2023 01:44 PM Everett [id number] Note Subjective Patient states she is doing good this morning. She denies any lightheadedness, dizziness, or headache. Blood pressures ranging 111/74-152/80, Midodrine recently reinitiated at 5mg three times daily. Denies any uncontrolled pain, states therapy services are doing good. Nursing reports bowels are moving. Objective General: Alert and oriented, no acute distress. Sitting up in wheelchair, working with therapy. Does not appear in acute pain. Pleasant and cooperative. Poor eye contact with flat affect. HEENT: EOMI, mucous membranes moist and no nasal drainage Respiratory: LCTA. Respirations are unlabored on room air. No cough, congestion, or conversational dyspnea Cardiovascular: HRR. No bradycardia, tachycardia, or heart murmur Edema/Varicosities of Extremities: No edema to the bilateral lower extremities. BAHMAN hose in place to bilateral lower extremities Gastrointestinal: Bowel sounds are present in 4 quadrants. Abdomen is nontender, soft, and nondistended Genitourinary: No suprapubic tenderness, CVA tenderness, or bladder distention Skin: Splint in place to the right upper extremity, neurovascular check intact. VITALS IltikeVpueKLXvtymVIVjD7YLD3WwhvGw(kg) 03/01 20:3236.7--[id number]/22 58.6 03/01 08:55----[id number] 03/01 05:3736.6--[id number] 02/28 21:0437.0--[id number] 02/28 18:32----84----RA 24 Hr Tmax: 36.7 at 03/01 20:32 36 Hr Tmax: 37.0 at 02/28 21:04 Vital Signs are the last 5 in the past 48 hours. Weights display the last 5 within 7 days. Initial Wt: 02/15 59.8 kg 132 lb Current Wt: 02/28 58.6 kg 129 lb LABS No 36 Hour Lab Data Medications Active Inpt Meds: .PharmacyCommunication (NO ASA or NSAIDS) Start: 02/17/23 9:00:00 EST, qDay atorvastatin Start: 02/15/23 21:00:00 EST, Dose = 10 mg, = 1 tab(s), Oral, qDay, 02/15/23 18:51:00 EST carbidopa-levodopa (carbidopa-levodopa 25 mg-100 mg oral tablet) Start: 02/15/23 21:00:00 EST, Dose= 1 tab(s), Tab, Oral, QID, 1st dose location: [facility], 1, 02/15/23 18:51:00 EST escitalopram Start: 02/16/23 9:00:00 EST, Dose = 10 mg, = 1 tab(s), Oral, qDay, 0, 02/15/23 18:51:00 EST ferrous sulfate Start: 02/17/23 12:00:00 EST, Dose = 325 mg, = 1 tab(s), Oral, Every other day, 0, 02/17/23 12:00:00 EST midodrine Start: 02/28/23 11:00:00 EST, Dose = 5 mg, = 1 tab(s), Oral, TID, 02/28/23 8:03:00 EST Active PRN Meds: Al hydroxide/Mg hydroxide/simethicone (Maalox) Start: 02/15/23 17:27:00 EST, Dose = 30 mL, Susp, Oral, q6h, PRN, Indigestion, 0, 02/15/23 17:27:00 EST acetaminophen (Tylenol) Start: 02/15/23 17:27:00 EST, Dose = 650 mg, = 2 tab(s), Oral, q4h, PRN, Muscle pain, 02/15/23 17:27:00 EST docusate (Colace) Start: 02/15/23 17:27:00 EST, Dose = 100 mg, = 1 cap(s), Oral, BID, PRN, Constipation, 02/15/23 17:27:00 EST glucagon (GlucaGen) Start: 02/15/23 17:27:00 EST, Dose = 1 mg, = 1 mL, Intramuscular, AsDirected, PRN, Hypoglycemia, if unresponsive, NO IV ACCESS & blood glucose less than 70mg/dL. If still unresponsive after 2 minutes, REPEAT x1., 02/15/23 17:27:00 EST glucose (Dextrose 50% IV Push) Start: 02/15/23 17:27:00 EST, Dose = 12.5 gram(s), = 25 mL, IV Push,AsDirected, PRN, Hypoglycemia, if unresponsive WITH IV ACCESS & blood glucose less than 70mg/dL. If still unresponsive after 2 minutes, REPEAT x1., 02/15/23 17:27:00 EST glucose Start: 02/15/23 17:27:00 EST, Dose = 16 gram(s), = 4 tab(s), Chewed, AsDirected, PRN, Hypoglycemia, DIABETIC PATIENT if responsive & blood glucose less than 70mg/dL. If blood glucose less than 70mg/dL after 15 minutes, REPEAT x1., 0, 02/15/23 17:2... glycerin (glycerin adult rectal suppository) Start: 02/15/23 17:27:00 EST, Dose = 1 supp, Supp, Rectal, Daily, PRN, Constipation, 02/15/23 17:27:00 EST magnesium hydroxide (Milk of Magnesia) Start: 02/15/23 17:27:00 EST, Dose = 30 mL, Susp-Oral, Oral,Daily, PRN, Constipation, 02/15/23 17:27:00 EST polyethylene glycol 3350 (Miralax Powder Packet) Start: 02/15/23 17:27:00 EST, Dose = 17 gram(s), =15 mL, Oral, qDay, PRN, Constipation, 02/15/23 17:27:00 EST One Time Meds: None Active IV Meds: None Problems (5) Lung nodule (3250360173) Orthostatic hypotension (40996029) Parkinson's disease (62506618) Right wrist fracture (6460078727) Subarachnoid hemorrhage (4284306706) ASSESSMENT/PLAN: Subarachnoid hemorrhage secondary to TBI after a recent fall. CT imaging revealing small arachnoid hemorrhage in the right supra lobe without mass effect or midline shift. Neurosurgical notes reviewed, conservative treatment, follow- up with them for further guidance, avoiding all antiplatelets anticoagulants NSAIDs. Follow up with neuro on 03/17 Recurrent falls in the setting of orthostatic hypotension as well as history of Parkinson's, fall precautions in place, working with PT and OT Reported right wrist fracture due to a recent fall 1 week prior, right wrist has a hard splint in place, follow-up with orthopedics, remains nonweightbearing to the right wrist, repeat x-ray reviewed Tylenol as needed for pain. Denies any uncontrolled pain this morning. History of Parkinson's Sinemet was changed to 4 times a day dosing, tolerating Longstanding history of hypertension with patient was on atenolol this was switched to amlodipine, unfortunately due to the hypotension amlodipine remains off Iron deficiency optimize every other day dosing, hemoglobin remains stable Depression Lexapro, mood and cognition stable DVT prophylaxis compression and mobility with recent subarachnoid hemorrhage Urine culture showing greater than 100,000 enterococcus, 7-day course of amoxicillin has been completed, denies any urinary symptoms Orthostatic hypotension, midodrine reinitiated at 5 mg 3 times daily related to some ongoing intermittent hypotension, holding parameters in place for systolic greater than 140, patient did not tolerate trial off with notable hypotension Blood pressures stabilizing goal to maintain midodrine with the underlying Parkinson's Current goal discharge for tomorrow patient stable from medical standpoint, plan is to transition to longterm Medications reviewed and up to date This document was transcribed using dictation software and may contain typographical errors. ILatonia RN, am scribing for , and in the presence of Dr. Cardenas. I, Dr. Cardenas, personally performed the services described in this documentation, as scribed by, Latonia Mitchell RN in my presence and it is both accurate and complete. Digitally Signed by IVAN CADRENAS DO on 03/03/2023 09:13 AM [id number] Physical medicine and rehab Progress note Rehab Note Chief Complaint: Seeing this patient for evaluation of therapy progress History of Present Illness: Seeing this patient for evaluation in therapy progress. Patient is participating in acute inpatient rehab services including PT/OT/CARE NURSE RN. Patient status post hospitalizationat [facility] from 02/08 - 02/15 following a fall down steps secondary to having altered mental status changes. CT of the head was obtained showing a small subarachnoid hemorrhage in the right occipital lobe without mass effect or midline shift. Neurology and neurosurgical team consulted and deemed there is no surgical intervention warranted. Patient was found to have multiple positive orthostatic hypotension and was initiated on fludrocortisone and IV fluids. Patient had a prior fall 1 week prior to her hospitalization resulting in a right wrist fracture. Patient had recent follow-up with orthopedics and is nonweightbearing to the right wrist. No present uncontrolled pain on exam. Past medical history significant for Parkinson's, hypertension, hyperlipidemia, depression. Patient doing well today. She has some weakness to her right side, but is doing well in therapy. Splint noted to right wrist. She has a hx of Parkinsons, weak voice. No reports of pain. Discussed with nursing. Medications reviewed. Patient will be discharging to an extended care facility, the [facility]. Tentative discharge date 03/03/2023. Medications Medication List Active Medications Ordered acetaminophen: 650 mg, 2 tab(s), Oral, q4h, PRN: Muscle pain. Al hydroxide/Mg hydroxide/simethicone: 30 mL, Oral, q6h, PRN: Indigestion. atorvastatin: 10 mg, 1 tab(s), Oral, qDay. carbidopa-levodopa: 1 tab(s), Oral, QID. docusate: 100 mg, 1 cap(s), Oral, BID, PRN: Constipation. escitalopram: 10 mg, 1 tab(s), Oral, qDay. ferrous sulfate: 325 mg, 1 tab(s), Oral, Every other day. glucagon: 1 mg, 1 mL, Intramuscular, AsDirected, PRN: Hypoglycemia. glucose: 16 gram(s), 4 tab(s), Chewed, AsDirected, PRN: Hypoglycemia. glucose: 12.5 gram(s), 25 mL, IV Push, AsDirected, PRN: Hypoglycemia. glycerin: 1 supp, Rectal, Daily, PRN: Constipation. magnesium hydroxide: 30 mL, Oral, Daily, PRN: Constipation. midodrine: 5 mg, 1 tab(s), Oral, TID. .PharmacyCommunication: 1 EA, Miscellaneous, qDay. polyethylene glycol 3350: 17 gram(s), 15 mL, Oral, qDay, PRN: Constipation. Documented amLODIPine: 5 mg, 1 tab(s), Oral, qDay, 0 Refill(s). atorvastatin: 10 mg, 1 tab(s), Oral, qDay, 30 tab(s), 0 Refill(s). carbidopa-levodopa: 1 tab(s), Oral, QID, 0 Refill(s). chondroitin-glucosamine: 1 tab, Oral, qDay, 0 Refill(s). escitalopram: 10 mg, 1 tab(s), Oral, qDay, 30 tab(s), 0 Refill(s). ferrous sulfate: Oral, qDay, takes 65 mg, 0 Refill(s). midodrine: 5 mg, 1 tab(s), Oral, TID, 0 Refill(s). Medications Inactivated in the Last 72 Hours midodrine: 10 mg, 2 tab(s), Oral, TID. Social history: Social support: Lives with spouse Home set-up: Single level home. First-floor bedroom, bathroom, laundry Barriers to discharge: Time since onset, safety awareness, past medical history Review of Systems: General: Appetite is good Respiratory: Denies shortness of breath, denies cough Cardiovascular: Denies chest pain, denies palpitations Gastrointestinal: Denies nausea, vomiting, diarrhea constipation Genitourinary: Denies suprapubic pain or tenderness, no dysuria Musculoskeletal: Right sided weakness Psychiatric: No reported change in cognition Vital Signs Vitals Signs(Last 24 hrs)__Last Charted Minimum Maximum Heart Rate84(FEB 28 21:04)84(FEB 28 18:32)84(FEB 28 18:32) ZTF810(FEB 28 21:04)92(FEB 28 09:23)130(FEB 28 21:04) DBP72(FEB 28 21:04)L 52(FEB 28 15:00)72(FEB 28 21:04) Physical Exam: General: No acute distress. Appears comfortable lying in bed. Wears glasses Respiratory: Lungs are clear to auscultation. Respirations nonlabored on room air Cardiovascular: Regular rate and rhythm. No bradycardia, no tachycardia, no murmur Gastrointestinal: Abdomen is soft nontender nondistended. Bowel sounds normal x4. Arterial: 2/4 distal pulses bilateral lower extremities Edema: No edema bilateral lower extremities. No calf tenderness. Musculoskeletal: Mild polyarthritis Spinal Curvatures: Slight increased thoracic kyphosis. soft speech, facial weakness Weight bearing status/transfers/ADLs: Weightbearing as tolerated. Ambulated 100 feet during last session. Patient performed 9 stairs. Supervision/touch assist with ambulating. Family instruct on 02/26. Supervision/touch assist with oral and toilet hygiene. Does need assistance for dressing and putting on footwear. Skin: Intact. No noted wounds or rashes. Neurological: Cranial nerves intact with facial weakness noted Normal sensation distally 4+/5 bilateral upper extremity strength 4/5 bilateral lower extremity strength Normal hand grasp bilaterally Decreased shoulder range of motion bilaterally 4/4 bilateral upper extremity reflexes 4/4 bilateral lower extremity reflexes Psychiatric: A&O. Pleasant and cooperative. Mood and cognition stable. Assessment: Subarachnoid hemorrhage. Right wrist fracture. Parkinson's disease. Gait disturbance. Plan: Continue acute rehabilitation physical occupational and speech therapy services. Gait mobility ADLs and self-care. Work to minimize fall risk. Splint to the right wrist planning orthopedic follow-up at [facility]. Plan transition [facility] long-term goal return to supervision of daughter and home care services Risks/benefits of meds, treatments considered. Therapy notes reviewed. Discussed with staff. PMH/SH reviewed and unchanged Medications are reviewed and up-to-date This document was transcribed using dictation software and may contain typographical errors. Lawrence Rivera RN, am scribing for , and in the presence of Dr. Radha HENLEY. IDr. Radha DO, personally performed the services described in this documentation, as scribed byLawrence RN in my presence and it is both accurate and complete. Digitally Signed by STAN GARCIA DO on 03/01/2023 03:38 PM [id number] Note Subjective Patient reports that she is doing well today. Denies any dizziness or lightheadedness. She states that she is staying well-hydrated and appetite is good. States breathing is comfortable. States boweland bladder function without any issues per denies urinary symptoms with recent completion of antibiotics. Objective General: Alert, oriented NAD. Appears comfortable sitting in wheelchair and eating breakfast, no choking episodes, no signs of acute pain. Calm and interactive. Pleasant. Good eye contact HEENT: EOMI, MMM, no nasal drainage Respiratory: Lungs clear nonlabored on RA; no cough/congestion Cardiovascular: Heart rate regular without tachycardia/murmur Edema/Varicosities of Extremities: No edema BLE Gastrointestinal: Bowel sounds present x 4 with abdomen soft/nondistended/nontender Genitourinary: No suprapubic tenderness, CVA tenderness, or bladder distention Skin: Splint in place to the right upper extremity, neurovascular check intact. VITALS UutgmyUbvqJFNsoisHSPhP3RQR5NpzfRz(kg) 02/28 21:0437.0--961990VR93/22 58.6 02/28 18:32----84----RA 02/28 15:0036.1--131263BE 02/28 09:2336.5--601999YU 02/28 05:5136.4--293305LP 24 Hr Tmax: 37.0 at 02/28 21:04 36 Hr Tmax: 37.0 at 02/28 21:04 Vital Signs are the last 5 in the past 48 hours. Weights display the last 5 within 7 days. Initial Wt: 02/15 59.8 kg 132 lb Current Wt: 02/28 58.6 kg 129 lb LABS No 36 Hour Lab Data Medications Active Inpt Meds: .PharmacyCommunication (NO ASA or NSAIDS) Start: 02/17/23 9:00:00 EST, qDay atorvastatin Start: 02/15/23 21:00:00 EST, Dose = 10 mg, = 1 tab(s), Oral, qDay, 02/15/23 18:51:00 EST carbidopa-levodopa (carbidopa-levodopa 25 mg-100 mg oral tablet) Start: 02/15/23 21:00:00 EST, Dose= 1 tab(s), Tab, Oral, QID, 1st dose location: [facility], 1, 02/15/23 18:51:00 EST escitalopram Start: 02/16/23 9:00:00 EST, Dose = 10 mg, = 1 tab(s), Oral, qDay, 0, 02/15/23 18:51:00 EST ferrous sulfate Start: 02/17/23 12:00:00 EST, Dose = 325 mg, = 1 tab(s), Oral, Every other day, 0, 02/17/23 12:00:00 EST midodrine Start: 02/28/23 11:00:00 EST, Dose = 5 mg, = 1 tab(s), Oral, TID, 02/28/23 8:03:00 EST Active PRN Meds: Al hydroxide/Mg hydroxide/simethicone (Maalox) Start: 02/15/23 17:27:00 EST, Dose = 30 mL, Susp, Oral, q6h, PRN, Indigestion, 0, 02/15/23:27:00 EST acetaminophen (Tylenol) Start: 02/15/23 17::00 EST, Dose = 650 mg, = 2 tab(s), Oral, q4h, PRN, Muscle pain, 02/15/23::00 EST docusate (Colace) Start: 02/15/23 17:: EST, Dose = 100 mg, = 1 cap(s), Oral, BID, PRN, Constipation, 02/15/23 17::00 EST glucagon (GlucaGen) Start: 02/15/23 17:27:00 EST, Dose = 1 mg, = 1 mL, Intramuscular, AsDirected, PRN, Hypoglycemia, if unresponsive, NO IV ACCESS & blood glucose less than 70mg/dL. If still unresponsive after 2 minutes, REPEAT x1., 02/15/23 17:27:00 EST glucose (Dextrose 50% IV Push) Start: 02/15/23 17:27:00 EST, Dose = 12.5 gram(s), = 25 mL, IV Push,AsDirected, PRN, Hypoglycemia, if unresponsive WITH IV ACCESS & blood glucose less than 70mg/dL. If still unresponsive after 2 minutes, REPEAT x1., 02/15/23 17:27:00 EST glucose Start: 02/15/23 17::00 EST, Dose = 16 gram(s), = 4 tab(s), Chewed, AsDirected, PRN, Hypoglycemia, DIABETIC PATIENT if responsive & blood glucose less than 70mg/dL. If blood glucose less than 70mg/dL after 15 minutes, REPEAT x1., 0, 02/15/23 17:2... glycerin (glycerin adult rectal suppository) Start: 02/15/23 17:27:00 EST, Dose = 1 supp, Supp, Rectal, Daily, PRN, Constipation, 02/15/23 17:27:00 EST magnesium hydroxide (Milk of Magnesia) Start: 02/15/23 17:27:00 EST, Dose = 30 mL, Susp-Oral, Oral,Daily, PRN, Constipation, 02/15/23 17:27:00 EST polyethylene glycol 3350 (Miralax Powder Packet) Start: 02/15/23 17:27:00 EST, Dose = 17 gram(s), =15 mL, Oral, qDay, PRN, Constipation, 02/15/23 17:27:00 EST One Time Meds: None Active IV Meds: None Problems (5) Lung nodule (5703887355) Orthostatic hypotension (69478600) Parkinson's disease (13488510) Right wrist fracture (3440045607) Subarachnoid hemorrhage (6865729441) ASSESSMENT/PLAN: Subarachnoid hemorrhage secondary to TBI after a recent fall. CT imaging revealing small arachnoid hemorrhage in the right supra lobe without mass effect or midline shift. Neurosurgical notes reviewed, conservative treatment, follow- up with them for further guidance, avoiding all antiplatelets anticoagulants NSAIDs. Follow up with neuro 03/17 Recurrent falls in the setting of orthostatic hypotension as well as history of Parkinson's, fall precautions in place, working with PT and OT Reported right wrist fracture due to a recent fall 1 week prior, right wrist has a hard splint in place, follow-up with orthopedics, remains nonweightbearing to the right wrist, repeat x-ray reviewed Tylenol as needed for pain. Denies any uncontrolled pain History of Parkinson's Sinemet was changed to 4 times a day dosing, tolerating Longstanding history of hypertension with patient was on atenolol this was switched to amlodipine, unfortunately due to the hypotension amlodipine is currently off Iron deficiency optimize every other day dosing, hemoglobin stable Depression Lexapro, mood and cognition stable DVT prophylaxis compression and mobility with recent subarachnoid hemorrhage Urine culture showing greater than 100,000 enterococcus, 7-day course of amoxicillin has been completed Orthostatic hypotension, will reinitiate the midodrine at 5 mg 3 times daily related to some ongoing intermittent hypotension, holding parameters in place for systolic greater than 140, patient did not tolerate trial off with notable hypotension Medications reviewed and up to date This document was transcribed using dictation software and may contain typographical errors. Janie Rivera RN, am scribing for , and in the presence of Dr. Cardenas. I, Dr. Cardenas, personally performed the services described in this documentation, as scribed by, Janie HUYNH in my presence and it is both accurate and complete. Digitally Signed by IVAN CARDENAS DO on 03/03/2023 09:21 AM [facility] [id number] Physical medicine and rehab Progress note Rehab Note Chief Complaint: Seeing this patient for evaluation of therapy progress History of Present Illness: Seeing this patient for evaluation in therapy progress. Patient is participating in acute inpatient rehab services including PT/OT/CARE NURSE RN. Patient status post hospitalizationat [facility] from 02/08 - 02/15 following a fall down steps secondary to having altered mental status changes. CT of the head was obtained showing a small subarachnoid hemorrhage in the right occipital lobe without mass effect or midline shift. Neurology and neurosurgical team consulted and deemed there is no surgical intervention warranted. Patient was found to have multiple positive orthostatic hypotension and was initiated on fludrocortisone and IV fluids. Patient had a prior fall 1 week prior to her hospitalization resulting in a right wrist fracture. Patient had recent follow-up with orthopedics and is nonweightbearing to the right wrist. No present uncontrolled pain on exam. Past medical history significant for Parkinson's, hypertension, hyperlipidemia, depression. Today, patientis sitting at bedside in wheelchair. She appears comfortable. Denies any lightheadedness, dizziness, or headache, Discussed with nursing. Medications reviewed. Patient will be discharging to an extended care facility, the [facility]. Tentative discharge date 03/03/2023. Medications (14) Active Scheduled: (5) atorvastatin 10 mg tablet 10 mg 1 tab(s), Oral, qDay carbidopa-levodopa 25 mg-100 mg Tablet 1 tab(s), Oral, QID escitalopram 10 mg tablet 10 mg 1 tab(s), Oral, qDay ferrous sulfate 325 mg Tablet 325 mg 1 tab(s), Oral, Every other day No ASA or NSAIDS 1 EA, Miscellaneous, qDay Continuous: (0) PRN: (9) acetaminophen 325 mg Tablet 650 mg 2 tab(s), Oral, q4h Al hydrox/Mg hydrox/simethicone 200-200-20 mg/5 mL Susp UD 30 mL, Oral, q6h dextrose 50% Solution Disp syringe 50 mL 12.5 gram(s) 25 mL, IV Push, AsDirected docusate sodium 100 mg Capsule 100 mg 1 cap(s), Oral, BID glucagon recombinant 1 mg 1 mg 1 mL, Intramuscular, AsDirected glucose 4 gm Chewable 16 gram(s) 4 tab(s), Chewed, AsDirected glycerin adult Suppository 1 supp, Rectal, Daily magnesium hydroxide 8% Suspension 30 mL UD 30 mL, Oral, Daily polyethylene glycol 3350 - UD packet 17 gram(s) 15 mL, Oral, qDay Social history: Social support: Lives with spouse Home set-up: Single level home. First-floor bedroom, bathroom, laundry Barriers to discharge: Time since onset, safety awareness, past medical history Review of Systems: General: Appetite is good Respiratory: Denies shortness of breath, denies cough Cardiovascular: Denies chest pain, denies palpitations Gastrointestinal: Denies nausea, vomiting, diarrhea constipation Genitourinary: Denies suprapubic pain or tenderness, no dysuria Musculoskeletal: No uncontrolled pain Psychiatric: No reported change in cognition Vitals Signs(Last 24 hrs)__Last Charted Minimum Maximum Temp36.7(FEB 27 09:19)36.7(FEB 27 09:19)36.7(FEB 27 09:19) Heart Rate92(FEB 27 09:19)92(FEB 27 09:19)92(FEB 27 09:19) GHP747(FEB 27 20:09)L 88(FEB 27 09:19)H 146(FEB 27 06:05) DBP74(FEB 27 20:09)L 58(FEB 27 09:19)82(FEB 27 06:05) Physical Exam: General: No acute distress. Appears comfortable lying in bed Respiratory: Lungs are clear to auscultation. Respirations nonlabored on room air Cardiovascular: Regular rate and rhythm. No bradycardia, no tachycardia, no murmur Gastrointestinal: Abdomen is soft nontender nondistended. Bowel sounds normal x4. Arterial: 1/4 distal pulses bilateral lower extremities Edema: Trace edema bilateral lower extremities. No calf tenderness. Musculoskeletal: Mild polyarthritis Spinal Curvatures: Slight increased thoracic kyphosis. Flattening of lumbar lordosis with tenderness and spasm at right lower lumbar region soft speech, facial weakness Weight bearing status/transfers/ADLs: Weightbearing as tolerated. Ambulated 50 feet with gait belt and rolling walker. Moderate assist for sit to lying. Touch assist for toilet transfer. Touch assistfor lying to sitting on side of bed. Touch assist for sit to stand. Touch assist for lower body dressing. Moderate assist for putting on/taking off footwear. Touch assist for lying to sitting on side. Touch assist for sit to stand. Modified independence with 80% accuracy for patient will call the name and purpose of current medication with use of visual memory aid with 80% accuracy in 4/5 consecutive sessions. Skin: Intact. Neurological: Cranial nerves intact with facial weakness noted Normal sensation distally 4+/5 bilateral upper extremity strength 4/5 bilateral lower extremity strength 4R, 4+ L Normal hand grasp bilaterally Decreased shoulder range of motion bilaterally 1/4 bilateral upper extremity reflexes 1/4 bilateral lower extremity reflexes Psychiatric: A&O. Pleasant and cooperative. Mood and cognition stable. Assessment: Subarachnoid hemorrhage. Right wrist fracture. Anemia. Parkinson's disease. Plan: Continue acute rehabilitation physical occupational speech therapy services. Big loud and slow for movement and speech. Nonweightbearing on right wrist pending orthopedic follow-up with [facility] continue Plastizote splint. Plan transition to [facility] respite care March 03 ongoing home care services. Risks/benefits of meds, treatments considered. Therapy notes reviewed. Discussed with staff. PM/ reviewed and unchanged Note: This dictation was created with assistance of voice recognition software. Phonic and/or minorgrammatical errors may exist. Medications reviewed and are up to date Renea Rivera LPN, am scribing for, and in the presence of STAN GARCIA DO. STAN Rivera DO., personally performed the services described in this documentation, as described by Renea Goins LPN in my presence and it is both accurate and complete. Digitally Signed by STAN GARCIA DO on 02/28/2023 08:05 PM [place] [id number] Note Subjective Patient voices no acute complaints this morning. She denies any headache, vision changes, lightheadedness or dizziness. Pt denies any difficulties sleeping. Denies any acute shortness of breath, cough, congestion or sore throat. No acute urinary changes. Bowel regimen in place for constipation. No abdominal pain or discomfort. No nausea or vomiting. No chest pain, palpitations, dizziness or lightheadedness. Objective General: Alert and oriented, no acute distress. Appears comfortable on exam, no signs of pain or discomfort, mood pleasant, good eye contact HEENT: EOMI, MMM, no nasal drainage Respiratory: Lungs clear nonlabored on room air; no cough or congestion Cardiovascular: Heart rate regular without tachycardia/murmur Edema/Varicosities of Extremities: Trace edema BLE, BAHMAN hose on Gastrointestinal: Bowel sounds present x 4; abdomen soft/nondistended/nontender Genitourinary: No suprapubic tenderness, CVA tenderness, or bladder distention Skin: Splint in place to the right upper extremity, neurovascular check intact. VITALS [id number]Q1PzwhWs(kg) 02/27 06:0536.5--040653YW44/15 59.4 02/26 16:0036.6--031440UG 02/26 08:5236.8--739808ZD 02/26 00:5636.8--885001YT 02/25 20:1636.1--------RA 24 Hr Tmax: 36.6 at 02/26 16:00 36 Hr Tmax: 36.8 at 02/26 08:52 Vital Signs are the last 5 in the past 48 hours. Weights display the last 5 within 7 days. Initial Wt: 02/15 59.8 kg 132 lb Current Wt: 02/21 59.4 kg 131 lb LABS No 36 Hour Lab Data Medications Active Inpt Meds: .PharmacyCommunication (NO ASA or NSAIDS) Start: 02/17/23 9:00:00 EST, qDay atorvastatin Start: 02/15/23 21:00:00 EST, Dose = 10 mg, = 1 tab(s), Oral, qDay, 02/15/23 18:51:00 EST carbidopa-levodopa (carbidopa-levodopa 25 mg-100 mg oral tablet) Start: 02/15/23 21:00:00 EST, Dose= 1 tab(s), Tab, Oral, QID, 1st dose location: [facility], 1, 02/15/23 18:51:00 EST escitalopram Start: 02/16/23 9:00:00 EST, Dose = 10 mg, = 1 tab(s), Oral, qDay, 0, 02/15/23 18:51:00 EST ferrous sulfate Start: 02/17/23 12:00:00 EST, Dose = 325 mg, = 1 tab(s), Oral, Every other day, 0, 02/17/23 12:00:00 EST midodrine Start: 02/22/23 16:00:00 EST, Dose = 10 mg, = 2 tab(s), Oral, TID, 0, 02/22/23 16:00:00 EST Active PRN Meds: Al hydroxide/Mg hydroxide/simethicone (Maalox) Start: 02/15/23 17:27:00 EST, Dose = 30 mL, Susp, Oral, q6h, PRN, Indigestion, 0, 02/15/23:27:00 EST acetaminophen (Tylenol) Start: 02/15/23 17:27:00 EST, Dose = 650 mg, = 2 tab(s), Oral, q4h, PRN, Muscle pain, 02/15/23 17:27:00 EST docusate (Colace) Start: 02/15/23 17:27:00 EST, Dose = 100 mg, = 1 cap(s), Oral, BID, PRN, Constipation, 02/15/23 17:27:00 EST glucagon (GlucaGen) Start: 02/15/23 17:27:00 EST, Dose = 1 mg, = 1 mL, Intramuscular, AsDirected, PRN, Hypoglycemia, if unresponsive, NO IV ACCESS & blood glucose less than 70mg/dL. If still unresponsive after 2 minutes, REPEAT x1., 02/15/23 17:27:00 EST glucose (Dextrose 50% IV Push) Start: 02/15/23 17:27:00 EST, Dose = 12.5 gram(s), = 25 mL, IV Push,AsDirected, PRN, Hypoglycemia, if unresponsive WITH IV ACCESS & blood glucose less than 70mg/dL. If still unresponsive after 2 minutes, REPEAT x1., 02/15/23 17:27:00 EST glucose Start: 02/15/23 17:27:00 EST, Dose = 16 gram(s), = 4 tab(s), Chewed, AsDirected, PRN, Hypoglycemia, DIABETIC PATIENT if responsive & blood glucose less than 70mg/dL. If blood glucose less than 70mg/dL after 15 minutes, REPEAT x1., 0, 02/15/23 17:2... glycerin (glycerin adult rectal suppository) Start: 02/15/23 17:27:00 EST, Dose = 1 supp, Supp, Rectal, Daily, PRN, Constipation, 02/15/23 17:27:00 EST magnesium hydroxide (Milk of Magnesia) Start: 02/15/23 17:27:00 EST, Dose = 30 mL, Susp-Oral, Oral,Daily, PRN, Constipation, 02/15/23 17:27:00 EST polyethylene glycol 3350 (Miralax Powder Packet) Start: 02/15/23 17:27:00 EST, Dose = 17 gram(s), =15 mL, Oral, qDay, PRN, Constipation, 02/15/23 17:27:00 EST One Time Meds: None Active IV Meds: None Problems (5) Lung nodule (4606125375) Orthostatic hypotension (76832557) Parkinson's disease (65975630) Right wrist fracture (1611055456) Subarachnoid hemorrhage (4757251073) ASSESSMENT/PLAN: Subarachnoid hemorrhage secondary to TBI after a recent fall. CT imaging revealing small arachnoid hemorrhage in the right supra lobe without mass effect or midline shift. Neurosurgical notes reviewed, conservative treatment, follow- up with them for further guidance, avoiding all antiplatelets anticoagulants NSAIDs. Follow up with neuro 03/08 Recurrent falls in the setting of orthostatic hypotension as well as history of Parkinson's, fall precautions in place, working with PT and OT Reported right wrist fracture due to a recent fall 1 week prior, right wrist has a hard splint in place, follow-up with orthopedics, remains nonweightbearing to the right wrist, repeat x-ray reviewed Tylenol as needed for pain. Controlled. History of Parkinson's Sinemet was changed to 4 times a day dosing, tolerating Orthostatic hypotension trending blood pressures closely here, midodrine increased to 10 mg 3 timesdaily with discontinuation of Norvasc. Orthostatic vital signs continue to be positive although patient asymptomatic this morning Longstanding history of hypertension with patient was on atenolol this was switched to amlodipine, unfortunately due to the hypotension amlodipine is currently off Iron deficiency optimize every other day dosing, hemoglobin stable Depression Lexapro, mood and cognition stable DVT prophylaxis compression and mobility with recent subarachnoid hemorrhage Urine culture showing greater than 100,000 enterococcus, 7-day course of amoxicillin has been completed Hypertension, patient blood pressure medications atenolol and amlodipine stopped due to orthostatichypotension, patient currently having elevated blood pressures last 2 blood pressure readings 146/82, 142/70, 136/72. Patient asymptomatic, midodrine placed on hold, reevaluate for restarting lower dose of 1 of 2 blood pressure medications originally d/c'd Note: This dictation was created with assistance of voice recognition software. Phonic and/or minorgrammatical errors may exist. Medications reviewed and are up to date IRenea LPN, am scribing for, and in the presence of Roger Reese APRN. IRoger APRN., personally performed the services described in this documentation, as described by Renea Goins LPN in my presence and it is both accurate and complete. Digitally Signed by ROGER REESE on 03/01/2023 07:33 PM [facility] [id number] Note REFERRING PHYSICIAN: Stan Garcia DO. CONSULTING PSYCHOLOGIST: Aashish Muro, PhD. REASON FOR REFERRAL: Neuropsychological exam. HISTORY OF PRESENT ILLNESS: Ms. Mcnally is a 77-year-old right-handed white female admitted to [facility] from [facility] 02/15/2023 after falling down multiple steps. Brain imaging showed right occipital subarachnoid hemorrhage without mass or shift effect. She has Parki nson's disease and has a history of falls including 2 weeks prior to that fracturing her right radius/ulna in a cock-up splint. Weightbearing as tolerated. The patient required aggressive medicationsto manage blood pressure crises including atenolol and amlodipine. Her aspirin was discontinued. She was serial scanned and no neurosurgery required. Patient has complaints of short- term memory loss and I am asked to evaluate and treat. OTHER MEDICAL HISTORY: Includes hypertension, hyperlipidemia, depression. No prior known COMMUNITY SERVICE REPRESENTATIVE injuries or illnesses other than the Parkinson's. PCP is Dr. Chico Robins. CURRENT MEDICATIONS: Reviewed. Her Sinemet was increased from twice to four times a day to help improve the Parkinson's balance issues. She is on Lexapro 10 mg a day for the depression. Nothing else psychoactive or sedating. INTERVIEW RESULTS: Physically, patient denies any symptoms of brain injury or brain bleed. She shows poor deficit awareness cognitively, so this is likely part of the right nondominant hemisphere tendency to not appreciate physical problems. Was diagnosed with Parkinson's five years ago. States she has had multiple falls. Inconsistently uses walker. Encouraged her to use it always. Cognitively, states she had some short-term memory problems prior to this fall. Uncertain if it wasa mirror aging or something more than that. She has not had testing. About a month before the fall,her daughters had taken over her bills, although she cannot recall if she was making mistakes paying them. She was definitely having handwriting problems making out checks because of the Parkinson's.She is not certain if she has had new onset cognitive deficits with the subarachnoid hemorrhage. Emotionally, patient denies any anxiety, depression or irritability. Consistent with Parkinson's her affect is moderately flat. No positive emotions demonstrated, polite, and in no distress. States she has been sleeping adequately, although last night was poor. Appetite is good. Ms. Mcnally cannot recall why she was started on the Lexapro. I reviewed the chart showing depression. She states she just does not remember. I will try to get some family history. Ms. Mcnally lives in [place] with her daughter Larisa and Larisa's , Ghanshyam. States it is getting along well. Patient is . Two daughters. Independent with ADLs, but no longer drives. 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 She has a high school diploma. Cannot recall when she graduated from high school. TEST RESULTS: I used a Cognistat, RBANS, form C and Dana IV test noted below. She is right handed, used her left because of difficulties holding a pencil with her wrist fracture and brace. Provided good effort. ATTENTION: She is alert and oriented to time tags, but thought she was in [place] at a facility called [facility]. Verbal attention span is mildly impaired limited to 4 numbers recalled in order consistently and 6 with mistakes on tries. Verbal complex attention measured by digits reversed is mild to moderately impaired limited to 3 numbers reversed consistently and 4 with mistakes on tries. Visual attention span is mild to moderately impaired limited to 3 visual units recalled consistently and 4 with mistakes on some tries. LANGUAGE: Ms. Mcnally makes mild number of mistakes following multistep commands or repeating complex phrases. Perfect score on the naming screen, 10/10 correct. VISION AND MOTOR SKILLS: Taking into account she is using her left nondominant hand for the drawing, she still shows more motor coordination problems than expected, possibly linked to her recent headinjury, brain bleed. Omitted one item on left side of space consistent with mild neglect. She had amild deficit score on line angle perception, 6/10 correct. MEMORY: Visual memory scored in the low average range, 40% recall of visual design after 15-minute delay. Verbal memory storage for a list of 5 words is severely impaired. It took her 7 tries to learn the list instead of 2 or 3. 15 minutes later, she recalled only 1/5 words, a axvh-dp-qwmyekjx deficit score. EXECUTIVE FUNCTIONS: Verbal everyday reasoning based on the judgment test is intact, 8/10 points. Moderately impaired on cognitive estimates, another verbal reasoning measure, 3/6 items correct. Mildto moderately impaired on matrix reasoning, a visual reasoning measure, standard score of 5. Poor insight. Moderately slow on most tasks. CONCLUSIONS: Cognitive testing reveals lygnkhrq-pt-gwoqgd deficit in verbal memory, but normal visual memory. Normal verbal everyday reasoning, but moderately impaired cognitive estimates. Sjep-gk-ahctlxda deficit scores on the verbal and visual complex attention measures which are most sensitive to the brain bleed. Poor insight. Moderately slow. Test results likely reflect a preexisting at least mild cognitive impairment as a right occipital bleed typically would not cause isolated verbal memory deficit while preserving visual memory. Could be a vascular component. Unlikely to be linked to Parkinson's which typically affects attention not memory. Recommend cognitive therapy. Repeat testing in a week. She is high risk for falls in perpetuity because of the Parkinson's. She may need continued assistance with memory tasks but predict she will not need 24-hour supervision. I thank Dr. Garcia for this referral. 60 minutes FINAL DIAGNOSES: 1. Acute right occipital subarachnoid hemorrhage, status post fall. Agdc-yq-rqjenxsq cognitive deficits. 2. 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 3. Parkinson's disorder related cognitive symptoms, typically slowed thinking and attention. 4. Depression by chart review, on Lexapro. AASHISH MURO, PhD GM/NTS JOB#: [id number] DICTATION ID#: [id number] Digitally Signed by AASHISH MURO PhD on 02/23/2023 02:29 PM Everett [id number] Note ORIGINAL EXAMINATION: THREE XRAY VIEWS OF THE RIGHT WRIST02/21/2023 12:14 pm COMPARISON: None HISTORY: ORDERING SYSTEM PROVIDED HISTORY: Reason for Exam: follow up, pain, history of fall, given history of fracture FINDINGS: Bones are mildly osteopenic. There is no obvious acute fracture or dislocation distal radius and ulna and the radiocarpal and intercarpal joints. Navicular appears intact. There is abnormal alignment at the 2nd and 3rd carpal metacarpal joints that is suspicious for fracture dislocations that are poorly evaluated. IMPRESSION: Suspect fracture dislocation at the 2nd and 3rd carpal metacarpal joints. This is suboptimally evaluated on radiographs. CT may be appropriate particularly if surgery is being contemplated. Interpreted by: Leo Ortiz MD Preliminary Report By: Leo Ortiz MD Electronically signed By Leo Ortiz MD Dictated Date: 02/21/2023 12:20:16 PM Prelim Date: 02/21/2023 12:22:22 PM Sign Date: 02/21/2023 12:22:22 PM Ordering Provider: STAN Singer01-11-2024 Note. MICRO - Microbiology PROCEDURE: Urine Culture [*1] SOURCE: Urine, Clean Catch BODY SITE: COLLECTED DATE/TIME: 02/14/2023 04:29 EST RECEIVED DATE/TIME: 02/14/2023 07:14 EST START DATE/TIME: 02/14/2023 07:14 EST FREE TEXT SOURCE: FINAL REPORTS Final Report [] Verified Date/Time/Personnel: 02/17/2023 09:10 EST >100,000 cfu/ml Enterococcus faecalis PRELIMINARY REPORTS Preliminary Report [] Verified Date/Time/Personnel: 02/15/2023 10:36 EST >100,000 cfu/ml Enterococcus faecalis ANGEL to follow SUSCEPTIBILITY RESULTS Enterococcus faecalis Antibiotic ANGEL Dilut ANGEL Inter Ampicillin <=2 Susceptible Ciprofloxacin <=1 Susceptible Gentamicin <=500 Susceptible synergy ID Panel Not Not Applicable Applicable Levofloxacin <=1 Susceptible Nitrofurantoin <=32 Susceptible Vancomycin 2 Susceptible Performing Locations *1: This test was performed at: [facility], [address] [place] [address], [facility] , [facility] ([place])02-16-2023 Evaluation + Plan noteExtracted from: Title:Clinical Document Author:STAN GARCIA Date:02/16/23 Acute Inpatient Rehab History and Physical Date of Service: 02/16/2023 Date of Admission: 02/15/2023 Attending Physician: Dr. Garcia [facility] 2.22 Etiologic Diagnosis Close traumatic brain dysfunction acute posttraumatic occipital subarachnoid hemorrhage, right wrist fracture History of Present Illness 77-year-old female who presented to the emergency department after a fall down 8-10 steps, she was transferred to [facility] after imaging showed subarachnoid hemorrhage. CT of head obtained showing small subarachnoid hemorrhage in the right occipital lobe without mass effect or midline shift. Neurology and neurosurgical team consulted and deemed no surgical intervention needed. Patient had a previous fall 1 week prior to hospitalization and diagnosed with a right wrist fracture, does have a splint in place to right wrist and is to follow-up with orthopedics. CT of chest obtained showing a 3 mm nodule of the right upper lobe and recommended follow-up CT in 6 months. Patient was deemed medically stable and transferred to [place] inpatient rehabilitation unit for physical occupational therapies as well as medical supervision. Today she is sitting in wheelchair watching TV, reports she is doing fine. Denies any dizziness, lightheadedness or headache. Denies any uncontrolled pain, does have as needed Tylenol available. Due to the fact that he had impairments of gait mobility ADLs and self-care and medical complexity, decision was made to admit her to the acute physical rehabilitation unit. Baseline functional status independent. Admit functional status moderate assist. Medications (15) Active Scheduled: (6) amLODIPine 5 mg tablet 5 mg 1 tab(s), Oral, qDay atorvastatin 10 mg tablet 10 mg 1 tab(s), Oral, qDay carbidopa-levodopa 25 mg-100 mg Tablet 1 tab(s), Oral, QID escitalopram 10 mg tablet 10 mg 1 tab(s), Oral, qDay ferrous sulfate 325 mg Tablet 325 mg 1 tab(s), Oral, qDay midodrine 5 mg tablet 5 mg 1 tab(s), Oral, TID Continuous: (0) PRN: (9) acetaminophen 325 mg Tablet 650 mg 2 tab(s), Oral, q4h Al hydrox/Mg hydrox/simethicone 200-200-20 mg/5 mL Susp UD 30 mL, Oral, q6h dextrose 50% Solution Disp syringe 50 mL 12.5 gram(s) 25 mL, IV Push, AsDirected docusate sodium 100 mg Capsule 100 mg 1 cap(s), Oral, BID glucagon recombinant 1 mg 1 mg 1 mL, Intramuscular, AsDirected glucose 4 gm Chewable 16 gram(s) 4 tab(s), Chewed, AsDirected glycerin adult Suppository 1 supp, Rectal, Daily magnesium hydroxide 8% Suspension 30 mL UD 30 mL, Oral, Daily polyethylene glycol 3350 - UD packet 17 gram(s) 15 mL, Oral, qDay Review of Systems Constitutional: Denies weight changes fever or chills. Denies headaches. HEENT: Denies nystagmus and dizziness. Respiratory: Denies cough or congestion Cardiovascular: Denies chest pain, palpitations, uncontrolled blood pressure Gastrointestinal: Denies nausea with emesis. Genitourinary: Denies dysuria or urinary retention Neurological: Denies any cognitive deficits Musculoskeletal: Denies any joint or musculoskeletal pain Skin: Denies rashes or erythema Endocrine: Denies hot or cold intolerance. No hypoglycemia. Psychiatric: Denies changes in mental status. Allergic/immunologic: Denies environmental allergies or immune dysfunction Past Medical History: Parkinson's Hypertension Hyperlipidemia Depression Right lower extremity weakness Procedure/Surgical History: Unknown past surgical history Social History: Alcohol Details: Frequency: Denies Home/Environment Details: Domestic Concerns: None. Living situation: Lives with daughter single level set up. Primary Enrollment Advisor: Self. Safe place to go: Yes. Lives In: Single level home, 1st floor bedroom, 1st floor bathroom. Current Home Treatments None. Professional Skilled Services or Special Community Resources None. Financial concerns: No. Nutrition/Health Details: Appetite Good. Sexual Details: Sexually active: No Substance Abuse Details: Type: Denies Tobacco Details: Nicotine Use: Denies Family History: Unknown past family medical history Allergies: Trimox Physical Exam General appearance: Alert orient x3, no apparent distress, appears comfortable sitting in chair watching TV Head: Normocephalic no evidence of trauma EENT: Pupils equal and reactive to light and accommodation, no erythema. Ears with no external lesions or discharge. Nose clear, nares patent, no discharge. Throat normal healthy definition, no redness or erythema. Neck: Trachea midline. No lymphatic adenopathy Cardiac: Regular rate and rhythm, no rubs or murmurs Lungs: Clear to auscultation. Respirations unlabored on room air. Abdomen: Soft, nontender, no organomegaly or rebound tenderness. Positive bowel sounds Musculoskeletal: Intact range of motion, no erythema, mild polyarthritis Extremities: 1/4 edema bilateral extremities. No calf tenderness. Splint in place right hand. Neurological: Cranial nerves intact. No nystagmus noted. 4/5 bilateral lower extremity strength. 4/5 bilateral lower extremity strength. Decreased right hand grasp. Normal left hand grasp. Decreased shoulder range of motion bilaterally. 1/4 bilateral upper extremity reflexes. 1/4 bilateral lower extremity reflexes. Skin: Thin and dry. Right elbow abrasion. Splint in place to right hand/wrist. Psychiatric: Mood good. No anxiety or depression Vitals Signs(Last 24 hrs)__Last Charted Minimum Maximum Temp36.2(FEB 16 04:56)36.2(FEB 16 04:56)36.2(FEB 16 04:56) Heart Rate84(FEB 15 16:40)84(FEB 15 16:40)84(FEB 15 16:40) Resp Rate18(FEB 16 04:56)18(FEB 15 16:40)18(FEB 15 16:40) ZCR476(FEB 16 04:56)108(FEB 15 16:40)114(FEB 16 04:56) DBP72(FEB 16 04:56)60(FEB 15 16:40)72(FEB 16 04:56) No 36hr Lab Data Assessment: Subarachnoid hemorrhage Medical comorbidities of right wrist fracture Parkinson's hypertension hyperlipidemia depression orthostatic hypotension anemia hyperlipidemia Plan: Acute rehabilitation with physical occupational and speech therapy services. Gait mobility ADL self-care speech-language and cognition regular diet iron supplement Lexapro and supportive counseling monitor blood pressure work to minimize fall risk. Neurology follow-up. Wound team to evaluate. Plan is for discharge home with supervision of daughter to single level set up with home care services. Team staffing regarding further goals plan of care and length of stay. Condition complex, medically stable Post Admission Physician Evaluation Medical reconciliation performed. Old chart reviewed. Patient status on admission to rehab is medically stable but medically complex. Appropriate for admission to inpatient rehab facility due to need for 24-hour nursing and medical management in a hospital-based setting. Comparison with information on preadmission screening findings information to be consistent. Diagnoses to be monitored and treated include: Parkinson's, hypertension, hyperlipidemia, depression Rehabilitation physician to direct team staffing. See daily on rehabilitation rounds. Plan is for acute rehab with PT OT and speech-language therapy rehab nursing social work and nutrition for an acute interdisciplinary team rehab approach. Will work on gait training, ADLs, self-care, and strengthening, bowel and bladder program. DVT prophylaxis and medical management of comorbidities Minimal 3 hours/day 5-6 days/week of rehabilitation services Medical Comorbidities at the Time of Admission Right occipital subarachnoid hemorrhage, right wrist fracture,, Parkinson's hypertension, hyperlipidemia,, depression, orthostatic hypotension, anemia Barriers to Discharge Functional medical impairments Consulting Physician Dr. Cardenas Estimated Length of Stay 2-3 weeks Medications reviewed and are up to date IJulia LPN, am scribing for, and in the presence of Dr. Radha HENLEY. I, Dr. Radha HENLEY , personally performed the services described in this documentation, as described by Julia San LPN in my presence and it is both accurate and complete. [facility] 01-10-2024 Physical medicine and rehab History and physical note Acute Inpatient Rehab History and Physical Date of Service: 02/16/2023 Date of Admission: 02/15/2023 Attending Physician: Dr. Garcia [facility] 2.22 Etiologic Diagnosis Close traumatic brain dysfunction acute posttraumatic occipital subarachnoid hemorrhage, right wrist fracture History of Present Illness 77-year-old female who presented to the emergency department after a fall down 8-10 steps, she was transferred to [facility] after imaging showed subarachnoid hemorrhage. CT of head obtained showing small subarachnoid hemorrhage in the right occipital lobe without mass effect or midline shift. Neurology and neurosurgical team consulted and deemed no surgical intervention needed. Patient had a previous fall 1 week prior to hospitalization and diagnosed with a right wrist fracture, does have a splint in place to right wrist and is to follow-up with orthopedics. CT of chest obtained showing a 3 mm nodule of the right upper lobe and recommended follow-up CT in 6 months. Patient was deemed medically stable and transferred to [facility] [place] inpatient rehabilitation unit for physical occupational therapies as well as medical supervision. Today she is sitting in wheelchair watching TV, reports she is doing fine. Denies any dizziness, lightheadedness or headache. Denies any uncontrolled pain, does have as needed Tylenol available. Due to the fact that he had impairments of gait mobility ADLs and self-care and medical complexity,decision was made to admit her to the acute physical rehabilitation unit. Baseline functional status independent. Admit functional status moderate assist. Medications (15) Active Scheduled: (6) amLODIPine 5 mg tablet 5 mg 1 tab(s), Oral, qDay atorvastatin 10 mg tablet 10 mg 1 tab(s), Oral, qDay carbidopa-levodopa 25 mg-100 mg Tablet 1 tab(s), Oral, QID escitalopram 10 mg tablet 10 mg 1 tab(s), Oral, qDay ferrous sulfate 325 mg Tablet 325 mg 1 tab(s), Oral, qDay midodrine 5 mg tablet 5 mg 1 tab(s), Oral, TID Continuous: (0) PRN: (9) acetaminophen 325 mg Tablet 650 mg 2 tab(s), Oral, q4h Al hydrox/Mg hydrox/simethicone 200-200-20 mg/5 mL Susp UD 30 mL, Oral, q6h dextrose 50% Solution Disp syringe 50 mL 12.5 gram(s) 25 mL, IV Push, AsDirected docusate sodium 100 mg Capsule 100 mg 1 cap(s), Oral, BID glucagon recombinant 1 mg 1 mg 1 mL, Intramuscular, AsDirected glucose 4 gm Chewable 16 gram(s) 4 tab(s), Chewed, AsDirected glycerin adult Suppository 1 supp, Rectal, Daily magnesium hydroxide 8% Suspension 30 mL UD 30 mL, Oral, Daily polyethylene glycol 3350 - UD packet 17 gram(s) 15 mL, Oral, qDay Review of Systems Constitutional: Denies weight changes fever or chills. Denies headaches. HEENT: Denies nystagmus and dizziness. Respiratory: Denies cough or congestion Cardiovascular: Denies chest pain, palpitations, uncontrolled blood pressure Gastrointestinal: Denies nausea with emesis. Genitourinary: Denies dysuria or urinary retention Neurological: Denies any cognitive deficits Musculoskeletal: Denies any joint or musculoskeletal pain Skin: Denies rashes or erythema Endocrine: Denies hot or cold intolerance. No hypoglycemia. Psychiatric: Denies changes in mental status. Allergic/immunologic: Denies environmental allergies or immune dysfunction Past Medical History: Parkinson's Hypertension Hyperlipidemia Depression Right lower extremity weakness Procedure/Surgical History: Unknown past surgical history Social History: Alcohol Details: Frequency: Denies Home/Environment Details: Domestic Concerns: None. Living situation: Lives with daughter single level set up. Primary Enrollment Advisor: Self. Safe place to go: Yes. Lives In: Single level home, 1st floor bedroom, 1st floorbathroom. Current Home Treatments None. Professional Skilled Services or Special Community Resources None. Financial concerns: No. Nutrition/Health Details: Appetite Good. Sexual Details: Sexually active: No Substance Abuse Details: Type: Denies Tobacco Details: Nicotine Use: Denies Family History: Unknown past family medical history Allergies: Trimox Physical Exam General appearance: Alert orient x3, no apparent distress, appears comfortable sitting in chair watching TV Head: Normocephalic no evidence of trauma EENT: Pupils equal and reactive to light and accommodation, no erythema. Ears with no external lesions or discharge. Nose clear, nares patent, no discharge. Throat normal healthy definition, no redness or erythema. Neck: Trachea midline. No lymphatic adenopathy Cardiac: Regular rate and rhythm, no rubs or murmurs Lungs: Clear to auscultation. Respirations unlabored on room air. Abdomen: Soft, nontender, no organomegaly or rebound tenderness. Positive bowel sounds Musculoskeletal: Intact range of motion, no erythema, mild polyarthritis Extremities: 1/4 edema bilateral extremities. No calf tenderness. Splint in place right hand. Neurological: Cranial nerves intact. No nystagmus noted. 4/5 bilateral lower extremity strength. 4/5 bilateral lower extremity strength. Decreased right hand grasp. Normal left hand grasp. Decreased shoulder range of motion bilaterally. 1/4 bilateral upper extremity reflexes. 1/4 bilateral lower extremity reflexes. Skin: Thin and dry. Right elbow abrasion. Splint in place to right hand/wrist. Psychiatric: Mood good. No anxiety or depression Vitals Signs(Last 24 hrs)__Last Charted Minimum Maximum Temp36.2(FEB 16 04:56)36.2(FEB 16 04:56)36.2(FEB 16:56) Heart Rate84(FEB 15 16:40)84(FEB 15 16:40)84(FEB 15 16:40) Resp Rate18(FEB 16:56)18(FEB 15 16:40)18(FEB 15 16:40) BAF515(FEB 16:56)108(FEB 15 16:40)114(FEB 16:56) DBP72(FEB 16:56)60(FEB 15 16:40)72(FEB 16 04:56) No 36hr Lab Data Assessment: Subarachnoid hemorrhage Medical comorbidities of right wrist fracture Parkinson's hypertension hyperlipidemia depression orthostatic hypotension anemia hyperlipidemia Plan: Acute rehabilitation with physical occupational and speech therapy services. Gait mobility ADL self-care speech-language and cognition regular diet iron supplement Lexapro and supportive counseling monitor blood pressure work to minimize fall risk. Neurology follow-up. Wound team to evaluate.Plan is for discharge home with supervision of daughter to single level set up with home care services. Team staffing regarding further goals plan of care and length of stay. Condition complex, medically stable Post Admission Physician Evaluation Medical reconciliation performed. Old chart reviewed. Patient status on admission to rehab is medically stable but medically complex. Appropriate for admission to inpatient rehab facility due to need for 24-hour nursing and medical management in a hospital-based setting. Comparison with information on preadmission screening findings information to be consistent. Diagnoses to be monitored and treated include: Parkinson's, hypertension, hyperlipidemia, depression Rehabilitation physician to direct team staffing. See daily on rehabilitation rounds. Plan is for acute rehab with PT OT and speech-language therapy rehab nursing social work and nutrition for an acute interdisciplinary team rehab approach. Will work on gait training, ADLs, self-care,and strengthening, bowel and bladder program. DVT prophylaxis and medical management of comorbidities Minimal 3 hours/day 5-6 days/week of rehabilitation services Medical Comorbidities at the Time of Admission Right occipital subarachnoid hemorrhage, right wrist fracture,, Parkinson's hypertension, hyperlipidemia,, depression, orthostatic hypotension, anemia Barriers to Discharge Functional medical impairments Consulting Physician Dr. Cardenas Estimated Length of Stay 2-3 weeks Medications reviewed and are up to date Julia Rivera LPN, am scribing for, and in the presence of Dr. Radha HENLEY. I, Dr. Radha HENLEY , personally performed the services described in this documentation, as described by Julia San LPN in my presence and it is both accurate and complete. Digitally Signed by STAN GARCIA DO on 02/16/2023 01:57 PM [id number] Physical medicine and rehab Consult note INPATIENT REHAB HISTORY AND PHYSICAL CONSULTATION DATE OF ADMISSION: 02/15/2023 CC: Falls, subarachnoid hemorrhage Admission History and Physical HISTORY OF PRESENT ILLNESS: This is a 77-year-old female admitted to [facility] inpatient rehab from [facility] stay 02/08 - 02/15 who is past medical history of Parkinson's, hypertension, lipidemia, depression, and right lower extremity weakness who originally presented to [facility] and was transferred to [facility] after imaging showed subarachnoid hemorrhage. Patient reported he fell down 8-10 steps at home due to altered mental status. CT of the head obtained showing small subarachnoid hemorrhage in the right occipital lobe without mass effect or midline shift. Neurology and neurosurgical teamconsulted and deemed there is no surgical intervention warranted. Patient was found to have multiple positive orthostatic hypotension so was initiated on fludrocortisone and IV fluids. Atenolol discontinued and then been initiated on amlodipine 5 mg daily. Later blood pressure medications were adjusted as fludrocortisone was discontinued and midodrine was increased to 5 mg. Sinemet dose was adjusted to 4 times daily rather than 2 tabs twice daily to try to avoid orthostatic hypotension. Patientis to avoid aspirin and NSAIDs for the next [address] of the chest was obtained showed a 3 mm nodule of the right upper lobe. She was recommended to have a follow-up CT in 6 months in outpatient setting. Patient had a previous fall 1 week prior to this hospitalization with a right wrist fracture, right wrist splint is currently in place and will need to follow-up with the orthopedics. She was then found to have hypokalemia and was replaced. UA/ C&S obtained with culture showing greater than 100,000 Enterococcus facialis however sensitivity currently pending. Patient was deemed medically stable transferred to [facility] inpatient rehab for physical and occupational therapy as well as medical supervision. Today, patient is sitting up in chair eating breakfast, she states she is tolerating the diet well without any difficulty swallowing or chewing. She does report that shehas a headache this morning, she reports she did just recently have the Tylenol. Patient states that Tylenol does help with this Denies any uncontrolled pain. She denies any lightheadedness, dizziness, or headache this morning on examination. States she was dizzy multiple times at home resulting inmultiple falls. She has no edema to the bilateral extremities. Lungs are clear to auscultation. Respirations are unlabored on room air. No cough, congestion, or conversational dyspnea. SpO2 currentlyat 98% and states breathing is comfortable. Blood pressures are currently ranging 97/51 1 44/83 anddenies any lightheadedness, dizziness, or headache, continues on amlodipine 5 mg daily and the midodrine 5 mg 3 times daily. Denies any chest pain or chest pressure with heart rate 84. Recent labs with white blood cell count 6.9, hemoglobin 10.3, hematocrit 31.1, platelet 271, sodium 142, potassium3.6, BUN 10, creatinine 0.57, calcium 8.4, magnesium 1.6. Patient does have a follow-up BMP and CBC pending results for today. Patient denies any constipation, loose stools, nausea, vomiting, chest pain, or shortness of breath. Hospital medications, labs, and diagnostics have been reviewed and reconciled. PAST MEDICAL HISTORY: Parkinson's Hypertension Hyperlipidemia Depression Right lower extremity weakness PAST SURGICAL HISTORY: Unknown past surgical history SOCIAL HISTORY: Lives with daughter Denies any tobacco use Denies any alcohol use Denies any substance abuse FAMILY HISTORY: Unknown past family medical history, reports noncontributory CODE STATUS: Full code ALLERGIES: Trimox PCP: Dr. Abel Collier BMI-23.36 kg WT-131.6 pounds Vitals Signs(Last 24 hrs)__Last Charted Minimum Maximum Heart Rate84(FEB 15 16:40)84(FEB 15 16:40)84(FEB 15 16:40) Resp Rate18(FEB 15 16:40)18(FEB 15 16:40)18(FEB 15 16:40) LXS697(FEB 15 16:40)108(FEB 15 16:40)108(FEB 15 16:40) DBP60(FEB 15 16:40)60(FEB 15 16:40)60(FEB 15 16:40) REVIEW OF SYSTEMS: General: The patient appears frail and debilitated requiring assistance with activities of daily living including mobility. Constitutional: Appetite is good. Denies any uncontrolled pain. No fever. No chills. HEENT: Eyes: No blurring, discharge, or pain. ENT: No congestion, discharge or epistaxis. Respiratory: No cough, no dyspnea. No hemoptysis. Cardiovascular: No chest pain. No claudication. No paroxysmal nocturnal dyspnea. Gastrointestinal: No constipation, diarrhea, nausea, vomiting or abdominal pain. No dysphagia. Genitourinary: No dysuria, frequency or urgency. Neurological: No new focal weakness. No seizure or tremor. Musculoskeletal: No contractures or altered range of motion. Endocrine: No hot or cold intolerance. No hypoglycemia. Skin: No rash, tears or wounds. Mental Status: No changes in mental status. PHYSICAL EXAMINATION: Physical Exam: General: Appears chronically ill, in no acute distress. Alert and oriented. Sitting up in chair, eating breakfast. No choking observed. Appears comfortable and does not appear in acute pain. Pleasantand cooperative. Good eye contact with flat affect. Answers questions appropriately. Does not offermuch information. HEENT: Mucous membranes moist, no nasal drainage, EOMI Respiratory: Lungs are clear to auscultation. Respirations are unlabored on room air. No cough, congestion, or conversational dyspnea Cardiovascular: Regular rate rhythm; no murmurs, rubs, or gallops. Edema/Varicosities of Extremities: No edema to the bilateral lower extremities Gastrointestinal: Abdomen soft, NT, ND, without masses. Bowel sounds are present in all 4 quadrants Genitourinary: No suprapubic tenderness, CVA tenderness, or bladder distention Musculoskeletal: Exam shows no misalignment, tenderness, or effusion. Skin: No rashes or lesions noted Neurological: No tremor or focal weakness Psychiatric: A & O x 4. Mood pleasant and cooperative. Judgment/insight: limited. Short term memory with limitations. Medication List Active Medications Ordered acetaminophen: 650 mg, 2 tab(s), Oral, q4h, PRN: Muscle pain. Al hydroxide/Mg hydroxide/simethicone: 30 mL, Oral, q6h, PRN: Indigestion. amLODIPine: 5 mg, 1 tab(s), Oral, qDay. atorvastatin: 10 mg, 1 tab(s), Oral, qDay. carbidopa-levodopa: 1 tab(s), Oral, QID. docusate: 100 mg, 1 cap(s), Oral, BID, PRN: Constipation. escitalopram: 10 mg, 1 tab(s), Oral, qDay. ferrous sulfate: 325 mg, 1 tab(s), Oral, qDay. glucagon: 1 mg, 1 mL, Intramuscular, AsDirected, PRN: Hypoglycemia. glucose: 16 gram(s), 4 tab(s), Chewed, AsDirected, PRN: Hypoglycemia. glucose: 12.5 gram(s), 25 mL, IV Push, AsDirected, PRN: Hypoglycemia. glycerin: 1 supp, Rectal, Daily, PRN: Constipation. magnesium hydroxide: 30 mL, Oral, Daily, PRN: Constipation. midodrine: 5 mg, 1 tab(s), Oral, TID. polyethylene glycol 3350: 17 gram(s), 15 mL, Oral, qDay, PRN: Constipation. Documented amLODIPine: 5 mg, 1 tab(s), Oral, qDay, 0 Refill(s). atorvastatin: 10 mg, 1 tab(s), Oral, qDay, 30 tab(s), 0 Refill(s). carbidopa-levodopa: 1 tab(s), Oral, QID, 0 Refill(s). chondroitin-glucosamine: 1 tab, Oral, qDay, 0 Refill(s). escitalopram: 10 mg, 1 tab(s), Oral, qDay, 30 tab(s), 0 Refill(s). ferrous sulfate: Oral, qDay, takes 65 mg, 0 Refill(s). midodrine: 5 mg, 1 tab(s), Oral, TID, 0 Refill(s). Medications Inactivated in the Last 72 Hours acetaminophen: 650 mg, 2 tab(s), Oral, q6hWA, PRN: Pain, scale 1-10. amLODIPine: 10 mg, 1 tab(s), Oral, qDay. amLODIPine: 5 mg, 1 tab(s), Oral, qDay. atenolol: 25 mg, 1 tab(s), Oral, qDay, 90 tab(s), 0 Refill(s). atorvastatin: 10 mg, 1 tab(s), Oral, qDay. carbidopa-levodopa: 2 tab(s), Oral, BID, 240 tab(s), 0 Refill(s). carbidopa-levodopa: 2 tab(s), Oral, BID. carbidopa-levodopa: 1 tab(s), Oral, QID. chondroitin-glucosamine: 1 tab, Oral, qDay. escitalopram: 10 mg, 1 tab(s), Oral, qDay. fludrocortisone: 0.1 mg, 1 tab(s), Oral, qDay. glucose: 12.5 gram(s), 25 mL, IV Push, AsDirected, PRN: Hypoglycemia. herbal/nutritional product: 500 mg, 1 cap(s), Oral, Daily, 0 Refill(s). hydrALAZINE: 10 mg, 0.5 mL, IV Push, QID, PRN: Other (see order comments). labetalol: 10 mg, 2 mL, IV Push, q15min, PRN: Other (see order comments). melatonin: 3 mg, 1 tab(s), Oral, qHS, PRN: Sleep. melatonin: 3 mg, 1 tab(s), Oral, qHS, PRN: Sleep. midodrine: 5 mg, 1 tab(s), Oral, TID. midodrine: 2.5 mg, 1 tab(s), Oral, TID. ondansetron: 4 mg, 1 tab(s), Oral, q6h, PRN: Nausea/Vomiting. ondansetron: 4 mg, 2 mL, IV Push, q4h, PRN: Nausea/Vomiting. potassium chloride: 40 mEq, 2 tab(s), Oral, Once. Sodium Chloride 0.9% intravenous solution 1,000 mL: 75 mL/hr, Intravenous. REVIEW OF LABS, DIAGNOSTICS Hospital labs and diagnostics reviewed. No 36hr Lab Data ASSESSMENT AND PLAN: actively managed medical problems include Subarachnoid hemorrhage secondary to TBI after a recent fall. CT imaging revealing small arachnoid hemorrhage in the right supra lobe without mass effect or midline shift. Neurosurgical notes reviewed, conservative treatment, follow- up with them for further guidance, avoiding all antiplatelets anticoagulants NSAIDs Recurrent falls in the setting of orthostatic hypotension as well as history of Parkinson's, fall precautions in place consultation PT and OT Reported right wrist fracture due to a recent fall 1 week prior, right wrist has a hard splint in place she will follow-up with orthopedics outpatient setting denies issues with acute pain Tylenol as needed for pain History of Parkinson's Sinemet was changed to 4 times a day dosing Orthostatic hypotension trending blood pressures closely here midodrine initiated and currently increased to 5 3 times daily Longstanding history of hypertension with patient was on atenolol this was switched to amlodipine reassessed with blood pressures remaining soft here, consider allowing for some permissive hypertension close reevaluation given the subarachnoid hemorrhage Iron deficiency optimize every other day dosing Depression Lexapro DVT prophylaxis compression and mobility with recent subarachnoid hemorrhage Urine culture showing greater than 100,000 terra coccus facialis, sensitivity pending. Will hold off on medications until ANGEL comes back Hyperlipidemia statin ORDERS- PT/OT/ST Change iron supplementation to every other day Discussion and summaries: Reviewed with nursing staff. Our group will follow during acute rehabilitation stay at [facility] with the goal of returning to a more independent living status at the conclusion of the stay. Medications reviewed and up to date This document was transcribed using dictation software and may contain typographical errors. Latonia Rivera RN, am scribing for , and in the presence of Dr. Cardenas. I, Dr. Cardenas, personally performed the services described in this documentation, as scribed by, Latonia Mitchell RN in my presence and it is both accurate and complete. Digitally Signed by IVAN CARDENAS DO on 02/17/2023 09:27 AM [id number] Discharge instructions Patient Education 02/15/2023 13:48:18 Subarachnoid Hemorrhage, [id number] Subarachnoid Hemorrhage Subarachnoid hemorrhage is bleeding between the brain and the layer that covers the brain. The bleeding puts pressure on the brain, and it stops blood from going to some areas of the brain. If this bleeding is not treated, it may cause brain damage, stroke, or . This is an emergency. You must be treated in the hospital right away. You are more likely to get this condition if you: Smoke. Have high blood pressure. Drink too much alcohol. Are older than age 50. Are female, especially if you have stopped getting your period for a year or longer (menopause). Have a family history of burst blood vessels (aneurysms). Have a certain syndrome that leads to one of these: ?Kidney disease. ?Disease of tissues like bones, blood, and fat (connective tissues). Signs of this bleeding condition include: Sudden, very bad headache. It may feel like the worst headache you have ever had. Feeling sick to your stomach (nausea) or throwing up (vomiting), especially if you have other signssuch as a headache. Sudden weakness or loss of feeling (numbness) in your face, arm, or leg, especially on one side of the body. Sudden trouble with any of these: ?Walking. ?Moving an arm or leg. ?Talking. ?Understanding what people say. ?Swallowing. ?Seeing out of one eye or both eyes. Sudden confusion. Seeing double. Loss of balance. Sensitivity to light. Stiff neck. Trouble staying awake. Passing out (fainting). Follow these instructions at home: Medicines Take [id number] and prescription medicines only as told by your doctor. Do not take any medicines that contain aspirin or NSAIDs (like ibuprofen) unless your doctor says that it is safe to take them. Lifestyle Do not use any products that have nicotine or tobacco. These include cigarettes and e-cigarettes. If you need help quitting, ask your doctor. Limit alcohol to 1 drink a day for non women and 2 drinks a day for men. One drink is equalto: ?12 oz of beer. ?5 oz of wine. ?1 oz of hard liquor. Eating and drinking Ask your doctor if it is safe for you to eat and drink. You may need tests to make sure that you can swallow safely (swallow studies). Driving Do not drive until your doctor says that it is safe to drive. Do not drive or use heavy machinery while taking prescription pain medicine. General instructions Do therapy as recommended. This may include: ?Physical therapy (PT). ?Occupational therapy (OT). ?Speech-language therapy. Rest and limit activity as told by your doctor. Rest helps your brain to heal. Make sure you: ?Get plenty of sleep. ?Avoid activities that cause stress to your body or mind. Check your blood pressure as told by your doctor. Write down your blood pressure. Keep all follow-up visits as told by your doctors. This is important. Contact a doctor if: You have a stiff neck. You have a cough. You have a fever. Get help right away if: You have any signs of a stroke. BE FAST is an easy way to remember the main warning signs: ?B - Balance. Signs are dizziness, sudden trouble walking, or loss of balance. ?E - Eyes. Signs are trouble seeing or a sudden change in how you see. ?F - Face. Signs are sudden weakness or loss of feeling of the face, or the face or eyelid droopingon one side. ?A - Arms. Signs are weakness or loss of feeling in an arm. This happens suddenly and usually on one side of the body. ?S - Speech. Signs are sudden trouble speaking, slurred speech, or trouble understanding what people say. ?T - Time. Time to call emergency services. Write down what time symptoms started. You have other signs of a stroke, such as: ?A sudden, very bad headache with no known cause. ?Feeling sick to your stomach. ?Throwing up. ?Jerky movements you cannot control (seizure). These symptoms may be an emergency. Do not wait to see if the symptoms will go away. Get medical help right away. Call your local emergency services (911 in the [place] Do not drive yourself to the hospital. Summary Subarachnoid hemorrhage is bleeding in the brain. It is an emergency. You must be treated in the hospital right away. Follow instructions from your doctor about eating, resting, and taking medicines. Do not take any medicines that contain aspirin or NSAIDs (like ibuprofen) unless your doctor says that it is safe to take them. This information is not intended to replace advice given to you by your health care provider. Make sure you discuss any questions you have with your health care provider. Document Released: 05/21/2013 Document Revised: 01/06/2018 Document Reviewed: 11/03/2017 [employer] Patient Education 2020 [employer] Follow Up Care 02/08/2023 16:21:53 With:[facility], Address:Unknown When:1-2 days With:[facility] Address: When:Within 2 Week(s) With:CHICO COLLIER MD Address: [address] [place] [address] [place] [address] [phone] When:3-7 days [facility] 01-09-2024 Discharge summary Date of Service 02/15/23 Discharge Diagnosis 1. Small right occipital SAH s/p fall on 02/06/2023 2. Orthostatic hypotension 3. HTN (hypertension) 4. Parkinson disease 5. 3 mm nodule right upper lobe Additional Orders: Other status: BMP,02/15/23 5:00:00 EST, Next AM Draw (one day only), Blood, Once, Stop date 02/15/23 5:00:00 EST(Complete) Other status: CBC,02/15/23 5:00:00 EST, Next AM Draw (one day only), Blood, Once, Stop date 02/15/23 5:00:00 EST(Complete) Ordered: Discharge,02/15/23 10:25:00 EST, [facility] Ordered: Discharge Communication Order,Please check orthostatic VS daily, 02/15/23 10:25:34 EST Other status: Magnesium Level,02/15/23 5:01:00 EST, Next AM Draw (one day only), Blood, Once, Stop date 02/15/23 5:01:00 EST(Complete) Ordered: Transfer of Care Activity,Activity As Tolerated, 02/15/23 10:25:00 EST Ordered: Transfer of Care Code Status,Full Code, Constant Order Ordered: Transfer of Care Diet,Type of Diet: Regular Diet, 02/15/23 10:25:00 EST Ordered: Transfer of Care OT,Reason for therapy: weakness, 02/15/23 10:25:00 EST Ordered: Transfer of Care Orders Electronically Signed By,02/15/23 10:25:00 EST, STEW ORTIZ DO Ordered: Transfer of Care PT,Reason for therapy: Weakness, 02/15/23 10:25:00 EST Ordered: Transfer of Care Prognosis,Fair, Patient Aware: Yes Ordered: Transfer of Care Rehab Potential,Rehab potential good, 02/15/23 10:25:34 EST Modified: amLODIPine,Start: 02/16/23 8:00:00 EST, Dose = 5 mg, = 1 tab(s), Oral, qDay, 0, 02/16/23 8:00:00 EST Ordered: amLODIPine 5 mg oral tablet,Dose : 5 mg = 1 tab(s), Oral, qDay, 0 Refill(s) Discontinued: atenolol 25 mg oral tablet,Dose : 25 mg = 1 tab(s), Oral, qDay, # 90 tab(s), 0 Refill(s) Discontinued: carbidopa-levodopa 25 mg-100 mg oral tablet,Dose = 2 tab(s), Oral, BID, # 240 tab(s),0 Refill(s) Ordered: carbidopa-levodopa 25 mg-100 mg oral tablet,Dose = 1 tab(s), Oral, QID, 0 Refill(s) Ordered: midodrine 5 mg oral tablet,Dose : 5 mg = 1 tab(s), Oral, TID, 0 Refill(s) Discontinued: turmeric 500 mg oral capsule,Dose : 500 mg = 1 cap(s), Oral, Daily, 0 Refill(s) Hospital Course Patient is a 77 year old female with a past medical history significant for Parkinson's disease, hypertension, depression, and hyperlipidemia. Patient presented to [facility] with complaints of fall. Per documentation patient fell down 8-10 steps. she was found confused on walking from various rooms in the house aimlessly and turning on all the lights. CT head showed right occipital subarachnoid hemorrhage. Patient was then transferred to [facility] for further evaluation. patient was evaluated by neurology. Follow up CT scan is not needed. Patient is to avoid aspirin/NSAIDs over the next 2 weeks. Patient continues to be hypertensive and have significant orthostatic hypotension. Atenolol discontinued. Patient's Norvasc increased. Patient placed on fludrocortisone. Medication adjustments did not improve orthostatic hypotension. Patient continued to have significant positive orthostatic vital signs. Patient was evaluated by neurology, recommending discontinuation of fludrocortisone and starting midodrine. Midodrine was favored due to vasoconstrictive properties. carbidopa-levodopa was changed to 1 tab QID. Patient's symptoms are more suggestive of Parkinson's plus per neurology. Amlodipine has been decreased. Patient continues to be orthostatic positive but minimally symptomatic. Patient was evaluated by physical therapy and Occupational Therapy recommend patient discharge to longterm facility.. Discussed with my collaborating physician Dr. Stew Ortiz This dictation was performed using voice recognition software and may include grammatical and/or spelling errors Allergies Trimox (Hives) Consults Consult to Physician - Ordered -- 02/09/23 1:10:00 SAHRA GARCIA RISHI K MD, Routine, Subarachnoid hemorrhage Consult to Physician - Ordered -- 02/13/23 12:55:00 BERTRAND GARCIA ERIC MD, Routine, Parkinsons / Orthostatic hypotension Physical Exam Vitals and Measurements T: 36.9 C (Oral) TMIN: 36.5 C (Oral) TMAX: 36.9 C (Oral) HR: 88 RR: 16 BP: 144/83 BP: 122/74(Sitting) BP: 85/52(Standing) BP: 144/83(Supine) SpO2: 94% HT: 160 cm WT: 57.5 kg BMI: 22.46 Weight Dosing Weight: 57.5 kg (02/14/23) Dosing Weight: 57.5 kg (02/09/23) Physical Exam General: No acute distress. Alert and Appropriate Skin: No rash. Warm, Dry, Intact HEENT: Head is normocephalic and atraumatic. No lesions. Pupils equal in size. Extraocular movements within normal limits. Nose: No septal deviation. Mouth: Oropharynx mucosa is without lesion. Neck: Supple. No lymphadenopathy, thyromegaly noted. Lungs: Bilaterally diminished breath sounds with no crepitation or wheeze. Unlabored Cardiovascular: Heart is regular rhythm, S1S2, No extra-audible heart tones Abdomen: Abdomen is soft, nontender. Bowel sounds positive all four quadrants. Extremities: No clubbing, cyanosis or edema. Peripheral pulses palpable. No calf tenderness. Adequate peripheral circulation. Brace to right wrist present. Neurological: The patient is awake, oriented to time, people and place. Following simple commands, moving all extremities. Generalized weakness Code Status Code Status - Ordered -- 02/09/23 1:10:00 EST, Full Code, Constant Order Admission Date 02/08/23 Discharge Date 02/15/23 Medications New Prescription amLODIPine (amLODIPine 5 mg oral tablet)1 tab(s) by mouth once a day. midodrine (midodrine 5 mg oral tablet)1 tab(s) by mouth three (3) times a day. Changed carbidopa-levodopa (carbidopa-levodopa 25 mg-100 mg oral tablet)1 tab(s) by mouth four (4) times a day. Unchanged atorvastatin (atorvastatin 10 mg oral tablet)1 tab(s) by mouth once a day. chondroitin-glucosamine (Brent Move Free 500 mg-400 mg oral tablet)1 tab by mouth once a day. escitalopram (escitalopram 10 mg oral tablet)1 tab(s) by mouth once a day. ferrous sulfateby mouth once a day. takes 65 mg. Discontinued atenolol (atenolol 25 mg oral tablet)1 tab(s) by mouth once a day. herbal/nutritional product (turmeric 500 mg oral capsule)1 cap by mouth every day. Follow Up Follow Up with [facility] [place] When In 2 weeks Where: Follow Up with CHICO COLLIER MD When Within 3-7 days Where: [address] [place] [address] [place] [address]- [phone] Follow Up Appointments Transfer of Care OT - Ordered -- Reason for therapy: weakness, 02/15/23 10:25:00 EST Transfer of Care PT - Ordered -- Reason for therapy: Weakness, 02/15/23 10:25:00 EST Follow Up Labs/Studies Discharge Labs No Follow-up Labs Discharge Studies No Follow-up Studies Discharge Diet Transfer of Care Diet - Ordered -- Type of Diet: Regular Diet, 02/15/23 10:25:00 EST Discharge Activity Transfer of Care Activity - Ordered -- Activity As Tolerated, 02/15/23 10:25:00 EST Condition on Discharge Stable [facility] Prov[facility] To [facility] Daughter-Larisa Time Spent 32 minutes Digitally Signed by SHEELA PORRAS on 02/15/2023 01:37 PM [id number] Note Discharge Instructions Thank you for allowing [facility] to assist you with your healthcare needs. The following is importantdischarge information regarding your hospital visit. Your Care Team CHICO COLLIER MD Your Diagnosis 3 mm nodule right upper lobe HTN (hypertension) Orthostatic hypotension Parkinson disease Small right occipital SAH s/p fall on 02/06/2023 What to do next Follow Up Appointments [facility] Up with [facility], When Within 1-2 days [facility] In [facility] weeks Where: Follow Up with [facility] When Within 3-7 days Where: [address] [place] [address] [place] [address]- [phone] The Following Activity and Diet Have Been Ordered for You Transfer of Care Activity - Ordered -- Activity As Tolerated, 02/15/23 10:25:00 EST Transfer of Care Diet - Ordered -- Type of Diet: Regular Diet, 02/15/23 10:25:00 EST The Following Equipment Has Been Ordered for You Discharge Home Equipment Discharge Communication Order - Ordered -- Please check orthostatic VS daily, 02/15/23 10:25:34 EST The Following Treatments Have Been Ordered for You Discharge Labs No qualifying data available. Discharge Radiology No qualifying data available. Other Therapies Transfer of Care OT - Ordered -- Reason for therapy: weakness, 02/15/23 10:25:00 EST Transfer of Care PT - Ordered -- Reason for therapy: Weakness, 02/15/23 10:25:00 EST Post Acute Orders Transfer of Care Admission Level of Care - Ordered -- Level of Care Acute Rehab, 02/15/23 10:55:21 EST Transfer of Care Code Status - Ordered -- Full Code, Constant Order Transfer of Care Communication Order - Ordered -- Expect less than 30 day stay., 02/15/23 10:55:21 EST Transfer of Care Orders Electronically Signed By - Ordered -- 02/15/23 10:25:00 EST, STEW ORTIZ DO Transfer of Care Prognosis - Ordered -- Fair, Patient Aware: Yes Transfer of Care Rehab Potential - Ordered -- Rehab potential good, 02/15/23 10:25:34 EST Someone Will Contact You Regarding These Home Health Referrals No home referrals have been ordered for you. No one will call you. Allergies Trimox (Hives) Medications Please ask your primary doctor or pharmacist before taking any other medication not listed, including over the counter drugs, herbal medications, vitamins and or supplements as they may interact withyour home medications. What How Much When Instructions Last Dose New amLODIPine (amLODIPine 5 mg oral tablet) 1 tab(s) by mouth Once a day New midodrine (midodrine 5 mg oral tablet) 1 tab(s) by mouth Three (3) times a day Changed carbidopa-levodopa (carbidopa-levodopa 25 mg-100 mg oral tablet) 1 tab(s) by mouth Four (4) times a day Unchanged atorvastatin (atorvastatin 10 mg oral tablet) 1 tab(s) by mouth Once a day Unchanged chondroitin-glucosamine (Brent Move Free 500 mg-400 mg oral tablet) 1 tab by mouth Once a day Unchanged escitalopram (escitalopram 10 mg oral tablet) 1 tab(s) by mouth Once a day Unchanged ferrous sulfate by mouth Once a day takes 65 mg What How Much When Comments Stop Taking atenolol (atenolol 25 mg oral tablet) 1 tab(s) by mouth Once a day Stop Taking herbal/ nutritional product (turmeric 500 mg oral capsule) 1 cap by mouth Every day Please take this list to your next doctor s visit. Bring all medications you take, including over the counter medications, herbals and other supplements with you to your doctor s visit. Patients and families are reminded to discard old lists and to update any records with all medication providers or retail pharmacies. Education Materials Subarachnoid Hemorrhage Subarachnoid hemorrhage is bleeding between the brain and the layer that covers the brain. The bleeding puts pressure on the brain, and it stops blood from going to some areas of the brain. If this bleeding is not treated, it may cause brain damage, stroke, or . This is an emergency. You must be treated in the hospital right away. You are more likely to get this condition if you: Smoke. Have high blood pressure. Drink too much alcohol. Are older than age 50. Are female, especially if you have stopped getting your period for a year or longer (menopause). Have a family history of burst blood vessels (aneurysms). Have a certain syndrome that leads to one of these: ? Kidney disease. ? Disease of tissues like bones, blood, and fat (connective tissues). Signs of this bleeding condition include: Sudden, very bad headache. It may feel like the worst headache you have ever had. Feeling sick to your stomach (nausea) or throwing up (vomiting), especially if you have other signssuch as a headache. Sudden weakness or loss of feeling (numbness) in your face, arm, or leg, especially on one side of the body. Sudden trouble with any of these: ? Walking. ? Moving an arm or leg. ? Talking. ? Understanding what people say. ? Swallowing. ? Seeing out of one eye or both eyes. Sudden confusion. Seeing double. Loss of balance. Sensitivity to light. Stiff neck. Trouble staying awake. Passing out (fainting). Follow these instructions at home: Medicines Take ujfb-lqk-lvfcfhi and prescription medicines only as told by your doctor. Do not take any medicines that contain aspirin or NSAIDs (like ibuprofen) unless your doctor says that it is safe to take them. Lifestyle Do not use any products that have nicotine or tobacco. These include cigarettes and e-cigarettes. If you need help quitting, ask your doctor. Limit alcohol to 1 drink a day for non women and 2 drinks a day for men. One drink is equalto: ? 12 oz of beer. ? 5 oz of wine. ? 1 oz of hard liquor. Eating and drinking Ask your doctor if it is safe for you to eat and drink. You may need tests to make sure that you can swallow safely (swallow studies). Driving Do not drive until your doctor says that it is safe to drive. Do not drive or use heavy machinery while taking prescription pain medicine. General instructions Do therapy as recommended. This may include: ? Physical therapy (PT). ? Occupational therapy (OT). ? Speech-language therapy. Rest and limit activity as told by your doctor. Rest helps your brain to heal. Make sure you: ? Get plenty of sleep. ? Avoid activities that cause stress to your body or mind. Check your blood pressure as told by your doctor. Write down your blood pressure. Keep all follow-up visits as told by your doctors. This is important. Contact a doctor if: You have a stiff neck. You have a cough. You have a fever. Get help right away if: You have any signs of a stroke. BE FAST is an easy way to remember the main warning signs: ? B - Balance. Signs are dizziness, sudden trouble walking, or loss of balance. ? E - Eyes. Signs are trouble seeing or a sudden change in how you see. ? F - Face. Signs are sudden weakness or loss of feeling of the face, or the face or eyelid drooping on one side. ? A - Arms. Signs are weakness or loss of feeling in an arm. This happens suddenly and usually on oneside of the body. ? S - Speech. Signs are sudden trouble speaking, slurred speech, or trouble understanding what peoplesay. ? T - Time. Time to call emergency services. Write down what time symptoms started. You have other signs of a stroke, such as: ? A sudden, very bad headache with no known cause. ? Feeling sick to your stomach. ? Throwing up. ? Jerky movements you cannot control (seizure). These symptoms may be an emergency. Do not wait to see if the symptoms will go away. Get medical help right away. Call your local emergency services (911 in the [place] Do not drive yourself to the hospital. Summary Subarachnoid hemorrhage is bleeding in the brain. It is an emergency. You must be treated in the hospital right away. Follow instructions from your doctor about eating, resting, and taking medicines. Do not take any medicines that contain aspirin or NSAIDs (like ibuprofen) unless your doctor says that it is safe to take them. This information is not intended to replace advice given to you by your health care provider. Make sure you discuss any questions you have with your health care provider. Document Released: 05/21/2013 Document Revised: 01/06/2018 Document Reviewed: 11/03/2017 [employer] Patient Education 2020 [employer] Additional Information VACCINATE! IT SAVES LIVES! Members of the community who have not yet received the COVID-19 vaccine and would like to receive it can visit one of [facility] vaccine clinics. There are many vaccine clinic locations within the [facility]. For locations and available times, please visit [email or web address] It is important to note that some COVID mobile vaccine clinics are held outdoors and may be canceled in rainy or stormy conditions. To learn more about pediatric vaccinations (ages 5-11), we invite you to visit the [facility] webpage. [email or web address]/[email or web address] [email or web address].htmlTo learn more about the COVID-19 vaccine, we invite you to visit the CDC website for a list of frequently asked questions.https://www.cdc.gov/coronavirus/2019-ncov/vaccines/faq.html [facility] Patient Portal Access Instructions: Stay connected with your healthcare team and access your personal medical information anytime with the [facility] Patient Portal. Please follow the directions below to create your [facility] account: 1.Access the email account you provided upon registration to the hospital/physician office.2.Look for an invitation email from [facility].3.Open the email and access the invitation link: AcceptInvitation to [facility].4.Fill in the required lujan to create your account. To access your account, visit [employer]pie[employer]. Click the blue button labeled Access Patient Portal and then log in with the username and password that you created in the steps above. You will be able to view your test results, lab results, a summary of your visits, upcoming appointments and more. There is also a convenient messaging option where you can send secure messages to your Brayolader. In addition, you will have the ability to download any documents or summaries to your computer and/or send the information securely to a physician. Remember that your healthcare information is confidential, so carefully consider who you will allowto register on the [facility] Patient Portal for access to your information. You can also access the [facility] Patient Portal on the [facility] sabas. Simply click on Patient Portal and then log into your account. If you would like to receive a full copy of your medical records, please contact the [facility] Medical Records Department by calling [phone], Tuesday through Tuesday between 8 a.m. and 4:30 p.m. HOW TO SAFELY DISPOSE OF PRESCRIPTION MEDICATIONS Please use one of the following methods to safely dispose of your unused medications. 1.Use a drug disposal kit: the drug disposal pouch allows you to safely discard your old and unuseddrugs. Ask your nurse to give you one when you are discharged.2.Visit a local take-back location: Many local pharmacies and police departments have programs that collect old and unwanted prescriptiondrugs. Call your local pharmacy or go to http://bit.Octmami/4Z9Sf8i to find one close to you.3.Make use of household items: Use cat litter or old coffee grounds to dispose medications if other options arenot available. Mix your drugs with these household products, seal them in an airtight container andthrow it into the garbage. Call [facility]: [phone] to be sure your drugs can be disposed of in this way. Some medicines may require a different approach.4.Never flush your medications down the toilet. IF YOU HAVE BEEN PRESCRIBED AN OPIOID FOR PAIN If you have been prescribed an opioid (such as hydrocodone, oxycodone or morphine), it is critical to understand the possible side effects and risks of opioid pain medications. Even when taken as directed, opioids can have several side effects including: Tolerance, meaning you might need to take more of a medication for the same pain relief. Nausea, vomiting and/or constipation. Sleepiness, dizziness, dry mouth, confusion, depression or itching. Physical dependence, meaning you have withdrawal symptoms when a medication is stopped, can develop within a few days. KNOW YOUR RESPONSIBILITIES It is important to know exactly how much and how often to take the opioid pain medications you are prescribed. Never take opioids in higher amounts or more often than prescribed. Do not combine opioids with alcohol or other drugs that cause drowsiness, such as benzodiazepines, also known as benzos, including diazepam and alprazolam, muscle relaxants or sleep aids. Never sell or share prescription opioids. This is illegal. Store opioids in a secure place and out of reach of others (including children, family, friends and visitors). The last page of this document has been signed and retained as a CHART COPY. Signatures Patient Education Materials Subarachnoid Hemorrhage, Vtbv-yy-Heom Medication Leaflets My discharge plan and instructions have been reviewed and explained to me and IDALI CONNIE L understand my current condition and have read and understand these discharge instructions. I have received a written copy of the plan/instructions. If I have questions, I am aware that I should contact my doctor. Patient/Database Administration Project Manager Signature: Date/Time: Relationship to Patient: Witness Name/Signature: Date/Time: [facility] [id number] Note Discharge Instructions Thank you for allowing [facility] to assist you with your healthcare needs. The following is importantdischarge information regarding your hospital visit. Your Care Team CHICO COLLIER MD Your Diagnosis 3 mm nodule right upper lobe HTN (hypertension) Orthostatic hypotension Parkinson disease Small right occipital SAH s/p fall on 02/06/2023 What to do next Follow Up Appointments Follow Up with [facility], When Within 1-2 days [facility] When In 2 weeks Where: Follow Up with CHICO COLLIER MD When Within 3-7 days Where: [address] [place] [address] [place] [address]- [phone] The Following Activity and Diet Have Been Ordered for You Transfer of Care Activity - Ordered -- Activity As Tolerated, 02/15/23 10:25:00 EST Transfer of Care Diet - Ordered -- Type of Diet: Regular Diet, 02/15/23 10:25:00 EST The Following Equipment Has Been Ordered for You Discharge Home Equipment Discharge Communication Order - Ordered -- Please check orthostatic VS daily, 02/15/23 10:25:34 EST The Following Treatments Have Been Ordered for You Discharge Labs No qualifying data available. Discharge Radiology No qualifying data available. Other Therapies Transfer of Care OT - Ordered -- Reason for therapy: weakness, 02/15/23 10:25:00 EST Transfer of Care PT - Ordered -- Reason for therapy: Weakness, 02/15/23 10:25:00 EST Post Acute Orders Transfer of Care Admission Level of Care - Ordered -- Level of Care Acute Rehab, 02/15/23 10:55:21 EST Transfer of Care Code Status - Ordered -- Full Code, Constant Order Transfer of Care Communication Order - Ordered -- Expect less than 30 day stay., 02/15/23 10:55:21 EST Transfer of Care Orders Electronically Signed By - Ordered -- 02/15/23 10:25:00 EST, STEW ORTIZ DO Transfer of Care Prognosis - Ordered -- Fair, Patient Aware: Yes Transfer of Care Rehab Potential - Ordered -- Rehab potential good, 02/15/23 10:25:34 EST Someone Will Contact You Regarding These Home Health Referrals No home referrals have been ordered for you. No one will call you. Allergies Trimox (Hives) Medications Please ask your primary doctor or pharmacist before taking any other medication not listed, including over the counter drugs, herbal medications, vitamins and or supplements as they may interact withyour home medications. What How Much When Instructions Last Dose New amLODIPine (amLODIPine 5 mg oral tablet) 1 tab(s) by mouth Once a day New midodrine (midodrine 5 mg oral tablet) 1 tab(s) by mouth Three (3) times a day Changed carbidopa-levodopa (carbidopa-levodopa 25 mg-100 mg oral tablet) 1 tab(s) by mouth Four (4) times a day Unchanged atorvastatin (atorvastatin 10 mg oral tablet) 1 tab(s) by mouth Once a day Unchanged chondroitin-glucosamine (Brent Move Free 500 mg-400 mg oral tablet) 1 tab by mouth Once a day Unchanged escitalopram (escitalopram 10 mg oral tablet) 1 tab(s) by mouth Once a day Unchanged ferrous sulfate by mouth Once a day takes 65 mg What How Much When Comments Stop Taking atenolol (atenolol 25 mg oral tablet) 1 tab(s) by mouth Once a day Stop Taking herbal/ nutritional product (turmeric 500 mg oral capsule) 1 cap by mouth Every day Please take this list to your next doctor s visit. Bring all medications you take, including over the counter medications, herbals and other supplements with you to your doctor s visit. Patients and families are reminded to discard old lists and to update any records with all medication providers or retail pharmacies. Additional Information VACCINATE! IT SAVES LIVES! Members of the community who have not yet received the COVID-19 vaccine and would like to receive it can visit one of [facility] vaccine clinics. There are many vaccine clinic locations within the [facility]. For locations and available times, please visit [email or web address]/. It is important to note that some COVID mobile vaccine clinics are held outdoors and may be canceled in rainy or stormy conditions. To learn more about pediatric vaccinations (ages 5-11), we invite you to visit the [facility] webpage. [email or web address] [email or web address] learn more about the COVID-19 vaccine, we invite you to visit the CDC website for a list of frequently asked questions.https://www.cdc.gov/coronavirus/2019-ncov/vaccines/faq.html [facility] Patient Portal Access Instructions: Stay connected with your healthcare team and access your personal medical information anytime with the [facility] Patient Portal. Please follow the directions below to create your [facility] account: 1.Access the email account you provided upon registration to the hospital/physician office.2.Look for an invitation email from [facility].3.Open the email and access the invitation link: AcceptInvitation to [facility].4.Fill in the required lujan to create your account. To access your account, visit [employer]/ReamazeOneChart. Click the blue button labeled Access Patient Portal and then log in with the username and password that you created in the steps above. You will be able to view your test results, lab results, a summary of your visits, upcoming appointments and more. There is also a convenient messaging option where you can send secure messages to your p Jobbervider. In addition, you will have the ability to download any documents or summaries to your computer and/or send the information securely to a physician. Remember that your healthcare information is confidential, so carefully consider who you will allowto register on the [facility] Patient Portal for access to your information. You can also access the [facility] Patient Portal on the [facility] sabas. Simply click on Patient Portal and then log into your account. If you would like to receive a full copy of your medical records, please contact the [facility] Medical Records Department by calling [phone], Tuesday through Tuesday between 8 a.m. and 4:30 p.m. HOW TO SAFELY DISPOSE OF PRESCRIPTION MEDICATIONS Please use one of the following methods to safely dispose of your unused medications. 1.Use a drug disposal kit: the drug disposal pouch allows you to safely discard your old and unuseddrugs. Ask your nurse to give you one when you are discharged.2.Visit a local take-back location: Many local pharmacies and police departments have programs that collect old and unwanted prescriptiondrugs. Call your local pharmacy or go to http://[employer].Octmami/8Y1Zk9f to find one close to you.3.Make use of household items: Use cat litter or old coffee grounds to dispose medications if other options arenot available. Mix your drugs with these household products, seal them in an airtight container andthrow it into the garbage. Call [facility]: [phone] to be sure your drugs can be disposed of in this way. Some medicines may require a different approach.4.Never flush your medications down the toilet. IF YOU HAVE BEEN PRESCRIBED AN OPIOID FOR PAIN If you have been prescribed an opioid (such as hydrocodone, oxycodone or morphine), it is critical to understand the possible side effects and risks of opioid pain medications. Even when taken as directed, opioids can have several side effects including: Tolerance, meaning you might need to take more of a medication for the same pain relief. Nausea, vomiting and/or constipation. Sleepiness, dizziness, dry mouth, confusion, depression or itching. Physical dependence, meaning you have withdrawal symptoms when a medication is stopped, can develop within a few days. KNOW YOUR RESPONSIBILITIES It is important to know exactly how much and how often to take the opioid pain medications you are prescribed. Never take opioids in higher amounts or more often than prescribed. Do not combine opioids with alcohol or other drugs that cause drowsiness, such as benzodiazepines, also known as benzos, including diazepam and alprazolam, muscle relaxants or sleep aids. Never sell or share prescription opioids. This is illegal. Store opioids in a secure place and out of reach of others (including children, family, friends and visitors). The last page of this document has been signed and retained as a CHART COPY. Signatures Patient Education Materials Medication Leaflets My discharge plan and instructions have been reviewed and explained to me and I,ROSARIO MCNALLY understand my current condition and have read and understand these discharge instructions. I have received a written copy of the plan/instructions. If I have questions, I am aware that I should contact my doctor. Patient/Database Administration Project Manager Signature: Date/Time: Relationship to Patient: Witness Name/Signature: Date[facility]Time[id number] Discharge summary Date of Service 02/15/23 Discharge Diagnosis 1. Small right occipital SAH s/p fall on 02/06/2023 2. Orthostatic hypotension 3. HTN (hypertension) 4. Parkinson disease 5. 3 mm nodule right upper lobe Additional Orders: Other status: BMP,02/15/23 5:00:00 EST, Next AM Draw (one day only), Blood, Once, Stop date 02/15/23 5:00:00 EST(Complete) Other status: CBC,02/15/23 5:00:00 EST, Next AM Draw (one day only), Blood, Once, Stop date 02/15/23 5:00:00 EST(Complete) Ordered: Discharge,02/15/23 10:25:00 EST, [facility] Ordered: Discharge Communication Order,Please check orthostatic VS daily, 02/15/23 10:25:34 EST Other status: Magnesium Level,02/15/23 5:01:00 EST, Next AM Draw (one day only), Blood, Once, Stop date 02/15/23 5:01:00 EST(Complete) Ordered: Transfer of Care Activity,Activity As Tolerated, 02/15/23 10:25:00 EST Ordered: Transfer of Care Code Status,Full Code, Constant Order Ordered: Transfer of Care Diet,Type of Diet: Regular Diet, 02/15/23 10:25:00 EST Ordered: Transfer of Care OT,Reason for therapy: weakness, 02/15/23 10:25:00 EST Ordered: Transfer of Care Orders Electronically Signed By,02/15/23 10:25:00 EST, STEW ORTIZ DO Ordered: Transfer of Care PT,Reason for therapy: Weakness, 02/15/23 10:25:00 EST Ordered: Transfer of Care Prognosis,Fair, Patient Aware: Yes Ordered: Transfer of Care Rehab Potential,Rehab potential good, 02/15/23 10:25:34 EST Modified: amLODIPine,Start: 02/16/23 8:00:00 EST, Dose = 5 mg, = 1 tab(s), Oral, qDay, 0, 02/16/23 8:00:00 EST Ordered: amLODIPine 5 mg oral tablet,Dose : 5 mg = 1 tab(s), Oral, qDay, 0 Refill(s) Discontinued: atenolol 25 mg oral tablet,Dose : 25 mg = 1 tab(s), Oral, qDay, # 90 tab(s), 0 Refill(s) Discontinued: carbidopa-levodopa 25 mg-100 mg oral tablet,Dose = 2 tab(s), Oral, BID, # 240 tab(s),0 Refill(s) Ordered: carbidopa-levodopa 25 mg-100 mg oral tablet,Dose = 1 tab(s), Oral, QID, 0 Refill(s) Ordered: midodrine 5 mg oral tablet,Dose : 5 mg = 1 tab(s), Oral, TID, 0 Refill(s) Discontinued: turmeric 500 mg oral capsule,Dose : 500 mg = 1 cap(s), Oral, Daily, 0 Refill(s) Hospital Course Patient is a 77 year old female with a past medical history significant for Parkinson's disease, hypertension, depression, and hyperlipidemia. Patient presented to [facility] with complaints of fall. Per documentation patient fell down 8-10 steps. she was found confused on walking from various rooms in the house aimlessly and turning on all the lights. CT head showed right occipital subarachnoid hemorrhage. Patient was then transferred to [facility] for further evaluation. patient was evaluated by neurology. Follow up CT scan is not needed. Patient is to avoid aspirin/NSAIDs over the next 2 weeks. Patient continues to be hypertensive and have significant orthostatic hypotension. Atenolol discontinued. Patient's Norvasc increased. Patient placed on fludrocortisone. Medication adjustments did not improve orthostatic hypotension. Patient continued to have significant positive orthostatic vital signs. Patient was evaluated by neurology, recommending discontinuation of fludrocortisone and starting midodrine. Midodrine was favored due to vasoconstrictive properties. carbidopa-levodopa was changed to 1 tab QID. Patient's symptoms are more suggestive of Parkinson's plus per neurology. Amlodipine has been decreased. Patient continues to be orthostatic positive but minimally symptomatic. Patient was evaluated by physical therapy and Occupational Therapy recommend patient discharge to longterm facility.. Discussed with my collaborating physician Dr. Stew Ortiz This dictation was performed using voice recognition software and may include grammatical and/or spelling errors Allergies Trimox (Hives) Consults Consult to Physician - Ordered -- 02/09/23 1:10:00 SAHRA GARCIA RISHI K MD, Routine, Subarachnoid hemorrhage Consult to Physician - Ordered -- 02/13/23 12:55:00 BERTRAND GARCIA ERIC MD, Routine, Parkinsons / Orthostatic hypotension Physical Exam Vitals and Measurements T: 36.9 C (Oral) TMIN: 36.5 C (Oral) TMAX: 36.9 C (Oral) HR: 88 RR: 16 BP: 144/83 BP: 122/74(Sitting) BP: 85/52(Standing) BP: 144/83(Supine) SpO2: 94% HT: 160 cm WT: 57.5 kg BMI: 22.46 Weight Dosing Weight: 57.5 kg (02/14/23) Dosing Weight: 57.5 kg (02/09/23) Physical Exam General: No acute distress. Alert and Appropriate Skin: No rash. Warm, Dry, Intact HEENT: Head is normocephalic and atraumatic. No lesions. Pupils equal in size. Extraocular movements within normal limits. Nose: No septal deviation. Mouth: Oropharynx mucosa is without lesion. Neck: Supple. No lymphadenopathy, thyromegaly noted. Lungs: Bilaterally diminished breath sounds with no crepitation or wheeze. Unlabored Cardiovascular: Heart is regular rhythm, S1S2, No extra-audible heart tones Abdomen: Abdomen is soft, nontender. Bowel sounds positive all four quadrants. Extremities: No clubbing, cyanosis or edema. Peripheral pulses palpable. No calf tenderness. Adequate peripheral circulation. Brace to right wrist present. Neurological: The patient is awake, oriented to time, people and place. Following simple commands, moving all extremities. Generalized weakness Code Status Code Status - Ordered -- 02/09/23 1:10:00 EST, Full Code, Constant Order Admission Date 02/08/23 Discharge Date 02/15/23 Medications New Prescription amLODIPine (amLODIPine 5 mg oral tablet)1 tab(s) by mouth once a day. midodrine (midodrine 5 mg oral tablet)1 tab(s) by mouth three (3) times a day. Changed carbidopa-levodopa (carbidopa-levodopa 25 mg-100 mg oral tablet)1 tab(s) by mouth four (4) times a day. Unchanged atorvastatin (atorvastatin 10 mg oral tablet)1 tab(s) by mouth once a day. chondroitin-glucosamine (Brent Move Free 500 mg-400 mg oral tablet)1 tab by mouth once a day. escitalopram (escitalopram 10 mg oral tablet)1 tab(s) by mouth once a day. ferrous sulfateby mouth once a day. takes 65 mg. Discontinued atenolol (atenolol 25 mg oral tablet)1 tab(s) by mouth once a day. herbal/nutritional product (turmeric 500 mg oral capsule)1 cap by mouth every day. Follow Up Follow Up with [facility] [place] When In 2 weeks Where: Follow Up with [facility] When Within 3-7 days Where: [address] [place] [address] [place] [address]- [phone] Follow Up Appointments Transfer of Care OT - Ordered -- Reason for therapy: weakness, 02/15/23 10:25:00 EST Transfer of Care PT - Ordered -- Reason for therapy: Weakness, 02/15/23 10:25:00 EST Follow Up Labs/Studies Discharge Labs No Follow-up Labs Discharge Studies No Follow-up Studies Discharge Diet Transfer of Care Diet - Ordered -- Type of Diet: Regular Diet, 02/15/23 10:25:00 EST Discharge Activity Transfer of Care Activity - Ordered -- Activity As Tolerated, 02/15/23 10:25:00 EST Condition on Discharge Stable Discharge Disposition [facility] Information Provided To Patient Daughter-Larisa Time Spent 32 minutes Digitally Signed by SHEELA PORRAS on 02/15/2023 01:37 PM [id number] Note Date of Service 02/14/23 Chief Complaint Weakness Subjective Patient is a 77 year old female with a past medical history significant for Parkinson's disease, hypertension, depression, and hyperlipidemia. Patient presented to [facility] with complaints of fall. Per documentation patient fell down 8-10 steps. she was found confused on walking from various rooms in the house aimlessly and turning on all the lights. CT head showed right occipital subarachnoid hemorrhage. Patient was then transferred to [facility] for further evaluation. patient was evaluated by neurology. Follow up CT scan is not needed. Patient is to avoid aspirin/NSAIDs over the next 2 weeks. Patient continues to be hypertensive and have significant orthostatic hypotension. Atenolol discontinued. Patient's Norvasc increased. Patient placed on fludrocortisone. Medication adjustments did not improve orthostatic hypotension. Patient continued to have significant positive orthostatic vital signs. Patient was evaluated by neurology, recommending discontinuation of fludrocortisone and starting midodrine. Midodrine was favored due to vasoconstrictive properties. carbidopa-levodopa was changed to 1 tab QID. Patient's symptoms are more suggestive of Parkinson's plus per neurology. Patient resting up to chair. No family at bedside. Patient is alert. She is oriented. She patient states she is feeling well. Patient denies any acute complaints. No acute events overnight. Objective Vitals and Measurements T: 36.6 C (Oral) TMIN: 36.3 C (Oral) TMAX: 36.9 C (Oral) HR: 96 RR: 18 BP: 108/64 BP: 125/79(Sitting) BP: 80/42(Standing) BP: 140/74(Supine) SpO2: 97% Intake and Output 7AM Yesterday to 7AM Today Intake and Output (Last 24 hours) Intake Administration Information 600.00 Oral Intake 200.00 Output Urine Voided 300.00 Urinary Catheter Output: 1900.00 Stool Count 0.00 Urine Count 1.00 Total Summary Total Intake 800.00 Total Output 2200.00 Fluid Balance -1400.00 Physical Exam Vitals Signs(Last 24 hrs)__ Last Charted Minimum Maximum Temp 36.6(FEB 14 10:06) 36.6(FEB 14 10:06) 36.3(FEB 13 14:42) Resp Rate 18(FEB 14 10:06) 18(FEB 13 14:42) 20(FEB 13 19:02) SBP C 80(FEB 14 10:08) C 80(FEB 14 10:08) H 145(FEB 14 03:08) DBP C 42(FEB 14 10:08) C 42(FEB 14 10:08) 80(FEB 13 23:15) Physical Exam General: No acute distress. Alert and Appropriate Skin: No rash. Warm, Dry, Intact HEENT: Head is normocephalic and atraumatic. No lesions. Pupils equal in size. Extraocular movements within normal limits. Nose: No septal deviation. Mouth: Oropharynx mucosa is without lesion. Neck: Supple. No lymphadenopathy, thyromegaly noted. Lungs: Bilaterally diminished breath sounds with no crepitation or wheeze. Unlabored Cardiovascular: Heart is regular rhythm, S1S2, No extra-audible heart tones Abdomen: Abdomen is soft, nontender. Bowel sounds positive all four quadrants. Extremities: No clubbing, cyanosis or edema. Peripheral pulses palpable. No calf tenderness. Adequate peripheral circulation. Brace to right wrist present. Neurological: The patient is awake, oriented to time, people and place. Following simple commands, moving all extremities. Generalized weakness Weight Dosing Weight: 57.5 kg (02/09/23) Dosing Weight: 62.8 kg (02/08/23) Medications Medications (14) Active Scheduled: (5) amLODIPine 10 mg tablet 10 mg 1 tab(s), Oral, qDay atorvastatin 10 mg tablet 10 mg 1 tab(s), Oral, qDay carbidopa-levodopa 25 mg-100 mg Tablet 1 tab(s), Oral, QID escitalopram 10 mg tablet 10 mg 1 tab(s), Oral, qDay midodrine 2.5 mg tablet 2.5 mg 1 tab(s), Oral, TID Continuous: (1) NS (0.9% nacl) 1,000 mL 1,000 mL, Intravenous, 75 mL/hr PRN: (8) acetaminophen 325 mg Tablet 650 mg 2 tab(s), Oral, q6hWA dextrose 50% Solution Disp syringe 50 mL 12.5 gram(s) 25 mL, IV Push, AsDirected hydralazine 20 mg/mL (1mL) vial 10 mg 0.5 mL, IV Push, QID labetalol 5 mg/mL (4 mL) INJ 10 mg 2 mL, IV Push, q15min melatonin 3 mg tablet 3 mg 1 tab(s), Oral, qHS melatonin 3 mg tablet 3 mg 1 tab(s), Oral, qHS ondansetron 2 mg/ 1 mL 2 mL INJ 4 mg 2 mL, IV Push, q4h ondansetron 4 mg DIS tablet 4 mg 1 tab(s), Oral, q6h Lab Results 02/13 04:30 WBC: 7.2 Hgb: 9.9 L Hct: 29.4 L Platelet: 221 Neutrophil %: 72.2 Glucose Level: 96 Sodium Level: 140 Potassium Level: 3.4 L BUN: 11.0 Creatinine Lvl (s): 0.53 EKG No qualifying data available. Assessment/Plan 1. Small right occipital SAH s/p fall on 02/06/2023 2. Orthostatic hypotension 3. HTN (hypertension) 4. Parkinson disease 5. 3 mm nodule right upper lobe Small right occipital SAH s/p fall on 02/06/2023 -Patient evaluated neurosurgery. No follow-up needed. -Continue to avoid aspirin/NSAIDs over the next 2 weeks Orthostatic hypotension. -Orthostatic vital signs continue be grossly positive. -Fludrocortisone discontinued. -Patient started on midodrine. Will increase midodrine from 2.5 mg 3 times daily to 5 mg daily. Continue closely monitor blood pressures. -Continue IV fluids -Neurology consulted. Appreciate input. Parkinson's disease- continue home medications. Neurology adjusted carbidopa- levodopa to 1 tab QID 3mm nodules in the right upper lobe CAT scan of the chest-recommend outpatient follow up in 6 months if patient is high risk. Hypokalemia- replaced. Continue to monitor replace electrolytes as needed. Plan of care discussed in depth with patient. No family at bedside. I did call the patient's daughter (Larisa Cabral [phone]) via phone. Patient and family verbalizes understanding and are agreeable plan of care. Patient plans to be discharged to [facility] once medically optimized. Discussed with my collaborating physician Dr. Stew Ortiz This dictation was performed using voice recognition software and may include grammatical and/or spelling errors Orders: Consult to Physician Time Spent 26 minutes Digitally Signed by SHEELA PORRAS on 02/14/2023 01:18 PM [id number] Note Date of Service 1/8/24 Chief Complaint Weakness Subjective Patient is a 77 year old female with a past medical history significant for Parkinson's disease, hypertension, depression, and hyperlipidemia. Patient presented to [facility] with complaints of fall. Per documentation patient fell down 8-10 steps. she was found confused on walking from various rooms in the house aimlessly and turning on all the lights. CT head showed right occipital subarachnoid hemorrhage. Patient was then transferred to [facility] for further evaluation. patient was evaluated by neurology. Follow up CT scan is not needed. Patient is to avoid aspirin/NSAIDs over the next 2 weeks. Patient continues to be hypertensive and have significant orthostatic hypotension. Atenolol discontinued. Patient's Norvasc increased. Patient placed on fludrocortisone. Medication adjustments did not improve orthostatic hypotension. Patient continued to have significant positive orthostatic vital signs. Patient was evaluated by neurology, recommending discontinuation of fludrocortisone and starting midodrine. Midodrine was favored due to vasoconstrictive properties. carbidopa-levodopa was changed to 1 tab QID. Patient's symptoms are more suggestive of Parkinson's plus per neurology. Patient resting up to chair. No family at bedside. Patient is alert. She is oriented. She patient states she is feeling well. Patient denies any acute complaints. No acute events overnight. Objective Vitals and Measurements T: 36.6 C (Oral) TMIN: 36.3 C (Oral) TMAX: 36.9 C (Oral) HR: 96 RR: 18 BP: 108/64 BP: 125/79(Sitting) BP: 80/42(Standing) BP: 140/74(Supine) SpO2: 97% Intake and Output 7AM Yesterday to 7AM Today Intake and Output (Last 24 hours) Intake Administration Information 600.00 Oral Intake 200.00 Output Urine Voided 300.00 Urinary Catheter Output: 1900.00 Stool Count 0.00 Urine Count 1.00 Total Summary Total Intake 800.00 Total Output 2200.00 Fluid Balance -1400.00 Physical Exam Vitals Signs(Last 24 hrs)__ Last Charted Minimum Maximum Temp 36.6(FEB 14 10:06) 36.6(FEB 14 10:06) 36.3(FEB 13 14:42) Resp Rate 18(FEB 14 10:06) 18(FEB 13 14:42) 20(FEB 13 19:02) SBP C 80(FEB 14 10:08) C 80(FEB 14 10:08) H 145(FEB 14 03:08) DBP C 42(FEB 14 10:08) C 42(FEB 14 10:08) 80(FEB 13 23:15) Physical Exam General: No acute distress. Alert and Appropriate Skin: No rash. Warm, Dry, Intact HEENT: Head is normocephalic and atraumatic. No lesions. Pupils equal in size. Extraocular movements within normal limits. Nose: No septal deviation. Mouth: Oropharynx mucosa is without lesion. Neck: Supple. No lymphadenopathy, thyromegaly noted. Lungs: Bilaterally diminished breath sounds with no crepitation or wheeze. Unlabored Cardiovascular: Heart is regular rhythm, S1S2, No extra-audible heart tones Abdomen: Abdomen is soft, nontender. Bowel sounds positive all four quadrants. Extremities: No clubbing, cyanosis or edema. Peripheral pulses palpable. No calf tenderness. Adequate peripheral circulation. Brace to right wrist present. Neurological: The patient is awake, oriented to time, people and place. Following simple commands, moving all extremities. Generalized weakness Weight Dosing Weight: 57.5 kg (02/09/23) Dosing Weight: 62.8 kg (02/08/23) Medications Medications (14) Active Scheduled: (5) amLODIPine 10 mg tablet 10 mg 1 tab(s), Oral, qDay atorvastatin 10 mg tablet 10 mg 1 tab(s), Oral, qDay carbidopa-levodopa 25 mg-100 mg Tablet 1 tab(s), Oral, QID escitalopram 10 mg tablet 10 mg 1 tab(s), Oral, qDay midodrine 2.5 mg tablet 2.5 mg 1 tab(s), Oral, TID Continuous: (1) NS (0.9% nacl) 1,000 mL 1,000 mL, Intravenous, 75 mL/hr PRN: (8) acetaminophen 325 mg Tablet 650 mg 2 tab(s), Oral, q6hWA dextrose 50% Solution Disp syringe 50 mL 12.5 gram(s) 25 mL, IV Push, AsDirected hydralazine 20 mg/mL (1mL) vial 10 mg 0.5 mL, IV Push, QID labetalol 5 mg/mL (4 mL) INJ 10 mg 2 mL, IV Push, q15min melatonin 3 mg tablet 3 mg 1 tab(s), Oral, qHS melatonin 3 mg tablet 3 mg 1 tab(s), Oral, qHS ondansetron 2 mg/ 1 mL 2 mL INJ 4 mg 2 mL, IV Push, q4h ondansetron 4 mg DIS tablet 4 mg 1 tab(s), Oral, q6h Lab Results 02/13 04:30 WBC: 7.2 Hgb: 9.9 L Hct: 29.4 L Platelet: 221 Neutrophil %: 72.2 Glucose Level: 96 Sodium Level: 140 Potassium Level: 3.4 L BUN: 11.0 Creatinine Lvl (s): 0.53 EKG No qualifying data available. Assessment/Plan 1. Small right occipital SAH s/p fall on 02/06/2023 2. Orthostatic hypotension 3. HTN (hypertension) 4. Parkinson disease 5. 3 mm nodule right upper lobe Small right occipital SAH s/p fall on 02/06/2023 -Patient evaluated neurosurgery. No follow-up needed. -Continue to avoid aspirin/NSAIDs over the next 2 weeks Orthostatic hypotension. -Orthostatic vital signs continue be grossly positive. -Fludrocortisone discontinued. -Patient started on midodrine. Will increase midodrine from 2.5 mg 3 times daily to 5 mg daily. Continue closely monitor blood pressures. -Continue IV fluids -Neurology consulted. Appreciate input. Parkinson's disease- continue home medications. Neurology adjusted carbidopa- levodopa to 1 tab QID 3mm nodules in the right upper lobe CAT scan of the chest-recommend outpatient follow up in 6 months if patient is high risk. Hypokalemia- replaced. Continue to monitor replace electrolytes as needed. Plan of care discussed in depth with patient. No family at bedside. I did call the patient's daughter (Larisa Cabral [phone]) via phone. Patient and family verbalizes understanding and are agreeable plan of care. Patient plans to be discharged to [facility] once medically optimized. Discussed with my collaborating physician Dr. Stew Ortiz This dictation was performed using voice recognition software and may include grammatical and/or spelling errors Orders: Consult to Physician Time Spent 26 minutes Digitally Signed by SHEELA PORRAS APRN-NICKIE on 02/14/2023 01:18 PM [id number] Neurology Consult note Date of Service 02/13/23 Reason for Consultation Parkinson's/orthostatic hypotension Referring Physician Dr. Yates History of Present Illness Patient is a 77-year-old female with PMH of Parkinson's per daughter diagnosed 6 years ago by neurologist, and, depression, HLD, recurrent falls at home. Presented to [facility] on 02/08/2023 for evaluation after a presumed fall 4 days prior. Reported patient was found at the bottom of her stairs ather house on 02/06/2023. Family had reported on Kari the patient was acting more confused, fell down 8-[address] scan at showed on 02/08/2023 a small subarachnoid hemorrhage in the right occipital lobe without mass effect or midline shift. She was seen by neurosurgery and no surgical intervention was warranted. She has had multiple positive orthostatic hypotensions, given IV fluids and started on fludrocortisone but has remained +orthostatic. Daughter bedside reports that falls are becoming more frequent averaging 1/month however around Juanjose time she had 4 falls in 1 week. That she has noticed more gradual confusion the past few months, that the patient will ask things over and over because she forgot, will getup in the middle of the night as if she is . The confusion appears worse in the late evening and utility [employer]. However was much worse after she hit fell on 02/06. No concerns for seizures at home. She has tremors with bilateral hands at baseline, worse with activity. Never evaluated for dementia but daughter feels that she likely has. Pt appears alert, orientated x3, follows commands. Denies any complaints at the present time. States that she has no complaints of lightheadedness, dizziness, headache, vision disturbances, speech disturbances, sensory loss, nausea or vomiting. She has no focal weakness on exam. reports she only gets dizzy if she sits up or stands. Review of Systems See HPI for pertinent positives and negatives. All other review of systems have been reviewed and they are negative. Physical Exam Vitals and Measurements T: 36.5 C (Oral) TMIN: 36.5 C (Oral) TMAX: 37.0 C (Oral) HR: 82 RR: 20 BP: 110/65 BP: 109/67(Sitting) BP: 138/87(Supine) SpO2: 98% Weight Dosing Weight: 57.5 kg (02/09/23) Dosing Weight: 62.8 kg (02/08/23) Neurologic Exam General appearance, alert, following commands, Mental Status: Orientation: Oriented to person, [facility], and month Language: Normal fluency, normal simple comprehension Speech: Non-dysarthric, masked face Cranial Nerves: Pupils: 4mm -> 2mm bilaterally Visual Lujan: full to confrontation bilaterally CN III, IV, : EOMI. No nystagmus CN V: intact sensation to light touch and temp CN VII: face symmetric at rest. Facial muscle strength intact CN VIII: auditory acuity intact to bedside testing Sensation: Light touch: intact in all 4 extremities Motor: Bradykinesia present Involuntary movements: slight tremor of bilateral hands with activity, subsided at rest Strength: 5/5 Tone: Increased in all Coordination: [id number] movements: No ataxia present Reflexes: R: L B 2 2 BR 2 2 P 2 2 Toes touch down Lab Results 02/13 04:30 WBC: 7.2 Hgb: 9.9 L Hct: 29.4 L Platelet: 221 Neutrophil %: 72.2 Glucose Level: 96 Sodium Level: 140 Potassium Level: 3.4 L BUN: 11.0 Creatinine Lvl (s): 0.53 Imaging Results and Diagnostics CT Thorax w/ Contrast Result Date: February 08, 2023 Verified By: HANK BROOKS MD CLINICAL STATEMENT: IMPRESSION: 1. No acute intrathoracic pathology.2. 3 mm nodule right upper lobe follow-up CT in 6 months if this patient ishigh risk or is a history of smoking.Preliminary Report was Dictated bya Resident I have personally reviewed all of the images of this examination and agreewith the resident findings and interpretation. CT Spine Cervical w/o Contrast Result Date: February 08, 2023 Verified By: HANK BROOKS MD CLINICAL STATEMENT: IMPRESSION: No acute cervical spine fracture. Preliminary Report was Dictated by a Resident I have personally reviewed all of the images of this examination and agreewith the resident findings and interpretation. XR Chest 1 View Result Date: February 08, 2023 Verified By: HANK BROOKS MD CLINICAL STATEMENT: IMPRESSION: Hypoventilatory changes without acute cardiopulmonary process. Preliminary Report was Dictated by a Resident I have personally reviewed all of the images of this examination andagreewith the resident findings and interpretation. Assessment/Plan IMPRESSION Small right occipital SAH s/p fall Neurogenic orthostatic hypotension Parkinson disease PLAN: -CT brain without contrast [facility] at [facility] on 02[facility]08[facility]2023 demonstrates small subarachnoid hemorrhage in the right occipital lobe without mass effect or midline shift. Neurosurgery following. -Orthostatic hypotension secondary to Parkinson's, possibly other components such as Sinemet AEs. +orthostats, with drastic reduction in blood pressure without a drastic increase in HR, though at times HR increases by more than 20. -Will d/c fludrocortisone and start midodrine 2.5mg TID. Atenolol stopped by primary team. -Will adjust carbidopa-levodopa to 1 tab QID as this will lessen SE of orthostatic hypotension as will be better spaced out. -Labs reviewed. Ordered urine culture. Recommend rule out UTI that could be exacerbating symptoms. UA showing mod leuk est, +1 bacteria, 3-5WBC -GI/DVT prophylaxis per primary team -PT/OT/STper recommendations -Fall precautions -Further medical management per medical team -Case discussed with hospitalist medical team -Discussed with daughter at bedside, understood plan -Follow up with Neurology in 2 weeks as outpatient Discussed plan with collaborating physician who agrees with plan Independently spent 50 minutes with patient Will tentatively sign off but please call if further assistance is needed prior to DC. Please call with questions if any. Thank you for allowing us to participate in patients care and management. Allquestions were answered Attending Addendum: Split/shared visit with MARIANNA Melendez. The patient was also seen by myself independently today. Yanes components of the exam were verified by myself. As above, in her case I would favor an agent with vasoconstrictive properties (midodrine) rather than one that increases intravascular volume (fludrocortisone) given this is likely primarily neurogenic in nature. Will need to be closely monitored for supine hypertension given the SAH. In fact, I would typicallywait further for initiating this medication in the setting of SAH, however she is is having severe orthostasis that is very risky with regard to further falls, further head injury, etc. Midodrine can be titrated up in intervals of 2.5mg TID if needed/tolerated. Droxydopa can also be trialed as an OP, and is likely overall more efficacious/less risky than midodrine, however it is not available inpatient currently and relatively prompt treatment is needed now. Continue conservative measures as well, optimizing fluid balance, blood pressure medications, etc. Such severe orthostasis may imply she has a parkinson-plus syndrome rather than idiopathic Parkinson disease, and this can be further considered in OP follow-up. I will be off service tomorrow; if the above plan does not lead to improvement, please reach back out to the oncoming team. Alee Méndez MD [place] [facility] Problem List/Past Medical History Ongoing No qualifying data Historical No qualifying data Procedure/Surgical History No qualifying data available. Medications Inpatient acetaminophen, 650 mg= 2 tab(s), Oral, q6hWA, PRN amLODIPine, 10 mg= 1 tab(s), Oral, qDay atorvastatin, 10 mg= 1 tab(s), Oral, qDay carbidopa-levodopa 25 mg-100 mg oral tablet, 1 tab(s), Oral, QID Dextrose 50% IV Push, 12.5 gram(s)= 25 mL, IV Push, AsDirected, PRN escitalopram, 10 mg= 1 tab(s), Oral, qDay hydrALAZINE, 10 mg= 0.5 mL, IV Push, QID, PRN labetalol, 10 mg= 2 mL, IV Push, q15min, PRN melatonin, 3 mg= 1 tab(s), Oral, qHS, PRN melatonin, 3 mg= 1 tab(s), Oral, qHS, PRN midodrine, 2.5 mg= 1 tab(s), Oral, TID NS 1,000 mL, 1000 mL, Intravenous Zofran, 4 mg= 2 mL, IV Push, q4h, PRN Zofran ODT, 4 mg= 1 tab(s), Oral, q6h, PRN Home atenolol 25 mg oral tablet, 25 mg= 1 tab(s), Oral, qDay atorvastatin 10 mg oral tablet, 10 mg= 1 tab(s), Oral, qDay carbidopa-levodopa 25 mg-100 mg oral tablet, 2 tab(s), Oral, BID escitalopram 10 mg oral tablet, 10 mg= 1 tab(s), Oral, qDay ferrous sulfate, Oral, qDay Brent Move Free 500 mg-400 mg oral tablet, 1 tab, Oral, qDay turmeric 500 mg oral capsule, 500 mg= 1 cap(s), Oral, Daily Allergies Trimox (Hives) Immunizations No qualifying data available. Digitally Signed by FANNY MIRANDA on 02/13/2023 03:09 PM Digitally Signed by ALEE MÉNDEZ MD on 02/13/2023 03:46 PM [id number] Note Date of Service 02/13/23 Chief Complaint Dizziness/Weakness Subjective Patient is a 77 year old female with a past medical history significant for Parkinson's disease, hypertension, depression, and hyperlipidemia. Patient presented to [facility] with complaints of fall. Per documentation patient fell down 8-10 steps. she was found confused on walking from various rooms in the house aimlessly and turning on all the lights. CT head showed right occipital subarachnoid hemorrhage. Patient was then transferred to [facility] for further evaluation. patient was evaluated by neurology. Follow up CT scan is not needed. Patient is to avoid aspirin/NSAIDs over the next 2 weeks. Patient continues to be hypertensive and have significant orthostatic hypotension. Atenolol discontinued. Patient's Norvasc increased. Patient placed on fludrocortisone. Medication adjustments did not improve orthostatic hypotension. Patient continues to be significantly orthostatic positive. Neurology consulted. Appreciate input. Patient resting bed, daughter at bedside. Patient is alert. She is oriented. She is requested probably. Patient denies any vision changes, blurred vision, nausea, vomiting fever, chills, shortness ofbreath or chest pain. Patient does endorse complaints of dizziness with standing or changing positions. Objective Vitals and Measurements T: 36.5 C (Oral) TMIN: 36.5 C (Oral) TMAX: 37.0 C (Oral) HR: 82 RR: 20 BP: 110/65 BP: 109/67(Sitting) BP: 138/87(Supine) SpO2: 98% Intake and Output 7AM Yesterday to 7AM Today Intake and Output (Last 24 hours) Intake Administration Information 600.00 Output Urine Voided 300.00 Urinary Catheter Output: 1100.00 Stool Count 0.00 Total Summary Total Intake 600.00 Total Output 1400.00 Fluid Balance -800.00 Physical Exam Vitals Signs(Last 24 hrs)__ Last Charted Minimum Maximum Temp 36.5(FEB 13 10:52) 36.5(FEB 13 10:52) 37.0(FEB 12 23:42) Heart Rate 83(FEB 13 03:21) 83(FEB 13 03:21) 83(FEB 13 03:21) Resp Rate 20(FEB 13 10:52) 18(FEB 12 14:23) 20(FEB 12 18:51) SBP 110(FEB 13 10:52) C 79(FEB 13 08:50) H 145(FEB 13 03:21) DBP 65(FEB 13 10:52) C 49(FEB 13 08:50) 80(FEB 12 23:42) Physical Exam General: No acute distress. Alert and Appropriate Skin: No rash. Warm, Dry, Intact HEENT: Head is normocephalic and atraumatic. No lesions. Pupils equal in size. Extraocular movements within normal limits. Nose: No septal deviation. Mouth: Oropharynx mucosa is without lesion. Neck: Supple. No lymphadenopathy, thyromegaly noted. Lungs: Bilaterally diminished breath sounds with no crepitation or wheeze. Unlabored Cardiovascular: Heart is regular rhythm, S1S2, No extra-audible heart tones Abdomen: Abdomen is soft, nontender. Bowel sounds positive all four quadrants. Extremities: No clubbing, cyanosis or edema. Peripheral pulses palpable. No calf tenderness. Adequate peripheral circulation. Brace to right wrist present. Neurological: The patient is awake, oriented to time, people and place. Following simple commands, moving all extremities. Generalized weakness Weight Dosing Weight: 57.5 kg (02/09/23) Dosing Weight: 62.8 kg (02/08/23) Medications Medications (14) Active Scheduled: (5) amLODIPine 10 mg tablet 10 mg 1 tab(s), Oral, qDay atorvastatin 10 mg tablet 10 mg 1 tab(s), Oral, qDay carbidopa-levodopa 25 mg-100 mg Tablet 2 tab(s), Oral, BID escitalopram 10 mg tablet 10 mg 1 tab(s), Oral, qDay fludrocortisone 0.1 mg Tablet 0.1 mg 1 tab(s), Oral, qDay Continuous: (1) NS (0.9% nacl) 1,000 mL 1,000 mL, Intravenous, 75 mL/hr PRN: (8) acetaminophen 325 mg Tablet 650 mg 2 tab(s), Oral, q6hWA dextrose 50% Solution Disp syringe 50 mL 12.5 gram(s) 25 mL, IV Push, AsDirected hydralazine 20 mg/mL (1mL) vial 10 mg 0.5 mL, IV Push, QID labetalol 5 mg/mL (4 mL) INJ 10 mg 2 mL, IV Push, q15min melatonin 3 mg tablet 3 mg 1 tab(s), Oral, qHS melatonin 3 mg tablet 3 mg 1 tab(s), Oral, qHS ondansetron 2 mg/ 1 mL 2 mL INJ 4 mg 2 mL, IV Push, q4h ondansetron 4 mg DIS tablet 4 mg 1 tab(s), Oral, q6h Lab Results 02/13 04:30 WBC: 7.2 Hgb: 9.9 L Hct: 29.4 L Platelet: 221 Neutrophil %: 72.2 Glucose Level: 96 Sodium Level: 140 Potassium Level: 3.4 L BUN: 11.0 Creatinine Lvl (s): 0.53 EKG No qualifying data available. Assessment/Plan 1. Small right occipital SAH s/p fall on 02/06/2023 2. Orthostatic hypotension 3. HTN (hypertension) 4. Parkinson disease 5. 3 mm nodule right upper lobe Small right occipital SAH s/p fall on 02/06/2023 -Patient evaluated neurosurgery. No follow-up needed. -Continue to avoid aspirin/NSAIDs over the next 2 weeks Orthostatic hypotension. -Orthostatic vital signs continue be grossly positive. -Fludrocortisone added. -Continue IV fluids -Neurology consulted. Appreciate input. Parkinson's disease- continue home medications. 3mm nodules in the right upper lobe CAT scan of the chest-recommend outpatient follow up in 6 months if patient is high risk. Hypokalemia- replaced. Continue to monitor replace electrolytes as needed. Plan of care discussed in depth with patient, daughter at bedside and daughter (Larisa Cabral [phone]) via phone. Patient and family verbalizes understanding and are agreeable plan of care. Discussed with my collaborating physician Dr. adelita yates This dictation was performed using voice recognition software and may include grammatical and/or spelling errors Orders: Consult to Physician Time Spent 41 minutes Digitally Signed by SHEELA PORRAS on 02/13/2023 01:23 PM Digitally Signed by SHEELA PORRAS on 02/13/2023 01:25 PM [id number] Note Date of Service 02/12/23 Chief Complaint Weakness Subjective Patient is a 77 year old female with a past medical history significant for Parkinson's disease, hypertension, depression, and hyperlipidemia. Patient presented to [facility] with complaints of fall. Per documentation patient fell down 8-10 steps. she was found confused on walking from various rooms in the house aimlessly and turning on all the lights. CT head showed right occipital subarachnoid hemorrhage. Patient was then transferred to [facility] for further evaluation. patient was evaluated by neurology. Follow up CT scan is not needed. Patient is to avoid aspirin/NSAIDs over the next 2 weeks. Patient continues to be hypertensive and have significant orthostatic hypotension. Atenolol discontinued. Patient's Norvasc increased today. Patient placed on fludrocortisone. Patient resting in bed, daughter at bedside. Patient is alert and oriented. She states she is feeling well and denies all complaints. Objective Vitals and Measurements T: 37.2 C (Oral) TMIN: 36.7 C (Oral) TMAX: 37.4 C (Oral) HR: 84 RR: 20 BP: 154/92 BP: 153/88(Sitting) BP: 86/36(Standing) BP: 157/76(Supine) SpO2: 96% Intake and Output 7AM Yesterday to 7AM Today Intake and Output (Last 24 hours) Intake Oral Intake 120.00 Administration Information 600.00 Output Urinary Catheter Output: 850.00 Stool Count 0.00 Total Summary Total Intake 720.00 Total Output 850.00 Fluid Balance -130.00 Physical Exam Vitals Signs(Last 24 hrs)__ Last Charted Minimum Maximum Temp 36.9(FEB 12 12:07) 36.9(FEB 12 12:07) H 37.4(FEB 11 19:03) Heart Rate 73(FEB 12 05:32) 73(FEB 12 05:32) 78(FEB 11 23:48) Resp Rate 20(FEB 12 12:07) 18(FEB 11 23:48) 20(FEB 11 15:00) SBP 127(FEB 12 12:07) L 86(FEB 12 04:01) H 157(FEB 12 04:01) DBP 81(FEB 12 12:07) C 36(FEB 12 04:01) H 92(FEB 12 07:45) Physical Exam General: No acute distress. Alert and Appropriate Skin: No rash. Warm, Dry, Intact HEENT: Head is normocephalic and atraumatic. No lesions. Pupils equal in size. Extraocular movements within normal limits. Nose: No septal deviation. Mouth: Oropharynx mucosa is without lesion. Neck: Supple. No lymphadenopathy, thyromegaly noted. Lungs: Bilaterally diminished breath sounds with no crepitation or wheeze. Unlabored Cardiovascular: Heart is regular rhythm, S1S2, No extra-audible heart tones Abdomen: Abdomen is soft, nontender. Bowel sounds positive all four quadrants. Extremities: No clubbing, cyanosis or edema. Peripheral pulses palpable. No calf tenderness. Adequate peripheral circulation. Neurological: The patient is awake, oriented to time, people and place. Following simple commands, moving all extremities. Generalized weakness Weight Dosing Weight: 57.5 kg (02/09/23) Dosing Weight: 62.8 kg (02/08/23) Medications Medications (13) Active Scheduled: (4) amLODIPine 5 mg tablet 5 mg 1 tab(s), Oral, qDay atorvastatin 10 mg tablet 10 mg 1 tab(s), Oral, qDay carbidopa-levodopa 25 mg-100 mg Tablet 2 tab(s), Oral, BID escitalopram 10 mg tablet 10 mg 1 tab(s), Oral, qDay Continuous: (1) NS (0.9% nacl) 1,000 mL 1,000 mL, Intravenous, 75 mL/hr PRN: (8) acetaminophen 325 mg Tablet 650 mg 2 tab(s), Oral, q6hWA dextrose 50% Solution Disp syringe 50 mL 12.5 gram(s) 25 mL, IV Push, AsDirected hydralazine 20 mg/mL (1mL) vial 10 mg 0.5 mL, IV Push, QID labetalol 5 mg/mL (4 mL) INJ 10 mg 2 mL, IV Push, q15min melatonin 3 mg tablet 3 mg 1 tab(s), Oral, qHS melatonin 3 mg tablet 3 mg 1 tab(s), Oral, qHS ondansetron 2 mg/ 1 mL 2 mL INJ 4 mg 2 mL, IV Push, q4h ondansetron 4 mg DIS tablet 4 mg 1 tab(s), Oral, q6h Lab Results 02/11 04:37 WBC: 8.4 Hgb: 9.9 L Hct: 28.6 L Platelet: 201 Neutrophil %: 64.4 Glucose Level: 98 Sodium Level: 141 Potassium Level: 3.4 L BUN: 23.0 H Creatinine Lvl (s): 0.80 EKG No qualifying data available. Assessment/Plan 1. Small right occipital SAH s/p fall on 02/06/2023 2. Orthostatic hypotension 3. HTN (hypertension) 4. Parkinson disease 5. 3 mm nodule right upper lobe Small right occipital SAH s/p fall on 02/06/2023 -Patient evaluated neurosurgery. No follow-up needed. -Continue to avoid aspirin/NSAIDs Orthostatic hypotension. -Orthostatic vital signs continue be grossly positive. Norvasc increased to 10 mg daily. -Fludrocortisone added. -Continue IV fluids Parkinson's disease- continue home medications. 3mm nodules in the right upper lobe CAT scan of the chest-recommend outpatient follow up in 6 months if patient is high risk. Plan of care discussed in depth with patient. Patient verbalizes understanding and is agreeable plan of care. Discussed with my collaborating physician Dr. adelita yates, This dictation was performed using voice recognition software and may include grammatical and/or spelling errors Collaborative Care Team [facility] Medicine Shared/split visit with Sheela CABRAL. Patient seen and examined independently. Care discussed and coordinated by the entire care team under my direction. Discussed with daughters at bedside. Difficult balance of hypertension in the setting of SAH and severe orthostasis - both of which would be potentially catastrophic if not well treated in a rehab setting. Will need inpatient further management. Added fludrocortisone. Increased amlodipine. adelita yates md [facility] Medicine Digitally Signed by SHEELA PORRAS on 02/12/2023 02:14 PM Digitally Signed by ADELITA YATES MD FACP on 02/12/2023 04:17 PM [id number] Neurological surgery Consult note Date of Service 02/09/2023 This is a split/shared consultation with Dr. Bocanegra Reason for Consultation SAH Referring Physician Dr. Rowland History of Present Illness This is a 77-year-old female with a PMH significant for hypertension, hypercholesterolemia, Parkinson's disease with multiple falls who presented to [facility] on 02/08/2023 for evaluation after a presumed fall several days prior. Reportedly, patient was found at the bottom of the stairs at her house on 02/06/2023. It was presumed that she fell, however given that she was not complaining of any pain at that time, she was not evaluated that day. She was however brought to the hospital on 02/08/2023for evaluation of possible UTI. Given that she had fallen 2 days prior, she did undergo CT head without contrast which did demonstrate a right occipital subarachnoid hemorrhage. For that reason, she was transferred to [facility] ED for further evaluation. History taken from patient's daughterwho is at the bedside, as well as chart review, given that patient is not a good historian. No AC/AP use per patient's daughter. CT cervical spine was negative for any acute fracture or subluxation. CT thorax with contrast demonstrated no acute intrathoracic pathology, however did note a 3 mm right upper lobe nodule. Recommended follow-up CT in 6 months if patient is high risk or has a history of smoking. Patient discussed with on-call neurosurgeon who recommended admission to medicine service with consultation to neurosurgery. This morning, patient is seen and evaluated at the bedside in the ED with Dr. Bocanegra. She is awake, alert. She is confused, however, her daughter does provide that this has been worsening at home, evenprior to her fall. Notes that she has Parkinson's disease and has declined recently. Patient is seen moving all extremities spontaneously. Does not appear to have any lateralizing deficits. She denies any headaches, lightheadedness/dizziness, acute paresthesias, nausea or vomiting this morning. Review of Systems 12 point review of system completed and negative unless stated in HPI. Physical Exam Vitals and Measurements T: 37.2 C (Oral) HR: 79(Apical) RR: 20 BP: 177/83 SpO2: 93% WT: 62.8 kg Weight Dosing Weight: 62.8 kg (02/08/23) General Appearance: 77-year-old female. Awake, alert and oriented. Resting in bed, appears comfortable and in no acute distress. Appears stated age. Patient disoriented to year and situation. Facial features are symmetrical. Her speech is clear. Left pupil briskly reactive to light. Right pupil nonreactive given cataract. Not a new finding. Moving all extremities spontaneously, right wrist is splinted. Lungs diminished throughout. Does not appear to be in any respiratory distress. Regular heart rate and rhythm. Lab Results 02/09 05:24 WBC: 9.5 Hgb: 9.6 L Hct: 28.5 L Platelet: 186 Neutrophil %: 72.1 Glucose Level: 102 Sodium Level: 141 Potassium Level: 3.4 L BUN: 19.0 Creatinine Lvl (s): 0.70 Imaging Results and Diagnostics CT Thorax w/ Contrast Result Date: February 08, 2023 Verified By: HANK BROOKS MD CLINICAL STATEMENT: IMPRESSION: 1. No acute intrathoracic pathology.2. 3 mm nodule right upper lobe follow-up CT in 6 months if this patient ishigh risk or is a history of smoking.Preliminary Report was Dictated bya Resident I have personally reviewed all of the images of this examination and agreewith the resident findings and interpretation. CT Spine Cervical w/o Contrast Result Date: February 08, 2023 Verified By: HANK BROOKS MD CLINICAL STATEMENT: IMPRESSION: No acute cervical spine fracture. Preliminary Report was Dictated by a Resident I have personally reviewed all of the images of this examination and agreewith the resident findings and interpretation. XR Chest 1 View Result Date: February 08, 2023 Verified By: HANK BROOKS MD CLINICAL STATEMENT: IMPRESSION: Hypoventilatory changes without acute cardiopulmonary process. Preliminary Report was Dictated by a Resident I have personally reviewed all of the images of this examination andagreewith the resident findings and interpretation. CT head imaging reviewed from [facility]. Assessment/Plan Small right occipital SAH s/p fall on 02/06/2023 CT brain without contrast completed at [facility] on 02/08/2023 demonstrates small subarachnoid hemorrhage in the right occipital lobe without mass effect or midline shift. Patient evaluated at the bedside this morning with Dr. Bocanegra who has reviewed above imaging. Discussed with the daughter at the bedside that above findings could cause postconcussive type symptoms including headache, dizziness, photosensitivity, vision changes, fatigue etc. Patient is not currently c omplaining of above symptoms. Patient has Parkinson's disease which daughter has noticed progression of. Cognitive status has slowly declined over time and patient has also experienced multiple falls. Explained to the daughter at the bedside that SAH will resolve on its own over the next 10-14 days.No neurosurgical intervention needed at this time. She does not require further scheduled repeat head imaging. Patient does not take any AC/AP agents at home. If she should develop a headache, she should treat with acetaminophen only. Avoid aspirin/NSAIDs over the next 2 weeks. Would recommend neurology consultation given worsening Parkinson's symptoms. Currently on carbidopalevodopa. Patient has been hypertensive throughout her ED course thus far. Last documented BP this morning 177/83. Would recommend maintaining SBP 110-140 mmHg (normotensive). Patient is cleared for chemical DVT prophylaxis at the discretion of the primary team. Patient alsocleared for PT/OT services. Thank you for the consultation. Neurosurgery will sign off. Please do not hesitate to reach out with additional questions or concerns. Please see Dr. Bocanegra's addendum for further details regarding neurosurgical assessment/plan of care. Problem List/Past Medical History Ongoing No qualifying data Historical No qualifying data Procedure/Surgical History No qualifying data available. Medications Inpatient acetaminophen, 650 mg= 2 tab(s), Oral, q6hWA, PRN atenolol, 25 mg= 1 tab(s), Oral, qDay atorvastatin, 10 mg= 1 tab(s), Oral, qDay carbidopa-levodopa 25 mg-100 mg oral tablet, 2 tab(s), Oral, BID Dextrose 50% IV Push, 12.5 gram(s)= 25 mL, IV Push, AsDirected, PRN escitalopram, 10 mg= 1 tab(s), Oral, qDay hydrALAZINE, 10 mg= 0.5 mL, IV Push, QID, PRN labetalol, 10 mg= 2 mL, IV Push, q15min, PRN melatonin, 3 mg= 1 tab(s), Oral, qHS, PRN melatonin, 3 mg= 1 tab(s), Oral, qHS, PRN Zofran, 4 mg= 2 mL, IV Push, q4h, PRN Zofran ODT, 4 mg= 1 tab(s), Oral, q6h, PRN Home atenolol 25 mg oral tablet, 25 mg= 1 tab(s), Oral, qDay atorvastatin 10 mg oral tablet, 10 mg= 1 tab(s), Oral, qDay carbidopa-levodopa 25 mg-100 mg oral tablet, 2 tab(s), Oral, BID escitalopram 10 mg oral tablet, 10 mg= 1 tab(s), Oral, qDay ferrous sulfate, Oral, qDay Brent Move Free 500 mg-400 mg oral tablet, 1 tab, Oral, qDay turmeric 500 mg oral capsule, 500 mg= 1 cap(s), Oral, Daily Allergies Trimox (Hives) Immunizations No qualifying data available. Digitally Signed by JEEVAN MARTINEZ on 02/09/2023 09:39 AM Digitally Signed by JEEVAN MARTINEZ on 02/09/2023 09:39 AM [id number] Neurological surgery Consult note Date of Service 02/09/2023 This is a split/shared consultation with Dr. Bocanegra Reason for Consultation SAH Referring Physician Dr. Rowland History of Present Illness This is a 77-year-old female with a PMH significant for hypertension, hypercholesterolemia, Parkinson's disease with multiple falls who presented to [facility] on 02/08/2023 for evaluation after a presumed fall several days prior. Reportedly, patient was found at the bottom of the stairs at her house on 02/06/2023. It was presumed that she fell, however given that she was not complaining of any pain at that time, she was not evaluated that day. She was however brought to the hospital on 02/08/2023for evaluation of possible UTI. Given that she had fallen 2 days prior, she did undergo CT head without contrast which did demonstrate a right occipital subarachnoid hemorrhage. For that reason, she was transferred to [facility] ED for further evaluation. History taken from patient's daughterwho is at the bedside, as well as chart review, given that patient is not a good historian. No AC/AP use per patient's daughter. CT cervical spine was negative for any acute fracture or subluxation. CT thorax with contrast demonstrated no acute intrathoracic pathology, however did note a 3 mm right upper lobe nodule. Recommended follow-up CT in 6 months if patient is high risk or has a history of smoking. Patient discussed with on-call neurosurgeon who recommended admission to medicine service with consultation to neurosurgery. This morning, patient is seen and evaluated at the bedside in the ED with Dr. Bocanegra. She is awake, alert. She is confused, however, her daughter does provide that this has been worsening at home, evenprior to her fall. Notes that she has Parkinson's disease and has declined recently. Patient is seen moving all extremities spontaneously. Does not appear to have any lateralizing deficits. She denies any headaches, lightheadedness/dizziness, acute paresthesias, nausea or vomiting this morning. Review of Systems 12 point review of system completed and negative unless stated in HPI. Physical Exam Vitals and Measurements T: 37.2 C (Oral) HR: 79(Apical) RR: 20 BP: 177/83 SpO2: 93% WT: 62.8 kg Weight Dosing Weight: 62.8 kg (02/08/23) General Appearance: 77-year-old female. Awake, alert and oriented. Resting in bed, appears comfortable and in no acute distress. Appears stated age. Patient disoriented to year and situation. Facial features are symmetrical. Her speech is clear. Left pupil briskly reactive to light. Right pupil nonreactive given cataract. Not a new finding. Moving all extremities spontaneously, right wrist is splinted. Lungs diminished throughout. Does not appear to be in any respiratory distress. Regular heart rate and rhythm. Lab Results 02/09 05:24 WBC: 9.5 Hgb: 9.6 L Hct: 28.5 L Platelet: 186 Neutrophil %: 72.1 Glucose Level: 102 Sodium Level: 141 Potassium Level: 3.4 L BUN: 19.0 Creatinine Lvl (s): 0.70 Imaging Results and [address] CT Thorax w/ Contrast Result Date: February 08, 2023 Verified By: HANK BROOKS MD CLINICAL STATEMENT: IMPRESSION: 1. No acute intrathoracic pathology.2. 3 mm nodule right upper lobe follow-up CT in 6 months if this patient ishigh risk or is a history of smoking.Preliminary Report was Dictated bya Resident I have personally reviewed all of the images of this examination and agreewith the resident findings and interpretation. CT Spine Cervical w/o Contrast Result Date: February 08, 2023 Verified By: HANK BROOKS MD CLINICAL STATEMENT: IMPRESSION: No acute cervical spine fracture. Preliminary Report was Dictated by a Resident I have personally reviewed all of the images of this examination and agreewith the resident findings and interpretation. XR Chest 1 View Result Date: February 08, 2023 Verified By: HANK BROOKS MD CLINICAL STATEMENT: IMPRESSION: Hypoventilatory changes without acute cardiopulmonary process. Preliminary Report was Dictated by a Resident I have personally reviewed all of the images of this examination andagreewith the resident findings and interpretation. CT head imaging reviewed from [facility]. Assessment/Plan Small right occipital SAH s/p fall on 02/06/2023 CT brain without contrast completed at [facility] on 02/08/2023 demonstrates small subarachnoid hemorrhage in the right occipital lobe without mass effect or midline shift. Patient evaluated at the bedside this morning with Dr. Bocanegra who has reviewed above imaging. Discussed with the daughter at the bedside that above findings could cause postconcussive type symptoms including headache, dizziness, photosensitivity, vision changes, fatigue etc. Patient is not currently c omplaining of above symptoms. Patient has Parkinson's disease which daughter has noticed progression of. Cognitive status has slowly declined over time and patient has also experienced multiple falls. Explained to the daughter at the bedside that SAH will resolve on its own over the next 10-14 days.No neurosurgical intervention needed at this time. She does not require further scheduled repeat head imaging. Patient does not take any AC/AP agents at home. If she should develop a headache, she should treat with acetaminophen only. Avoid aspirin/NSAIDs over the next 2 weeks. Would recommend neurology consultation given worsening Parkinson's symptoms. Currently on carbidopalevodopa. Patient has been hypertensive throughout her ED course thus far. Last documented BP this morning 177/83. Would recommend maintaining SBP 110-140 mmHg (normotensive). Patient is cleared for chemical DVT prophylaxis at the discretion of the primary team. Patient alsocleared for PT/OT services. Thank you for the consultation. Neurosurgery will sign off. Please do not hesitate to reach out with additional questions or concerns. Please see Dr. Bocanegra's addendum for further details regarding neurosurgical assessment/plan of care. Problem List/Past Medical History Ongoing No qualifying data Historical No qualifying data Procedure/Surgical History No qualifying data available. Medications Inpatient acetaminophen, 650 mg= 2 tab(s), Oral, q6hWA, PRN atenolol, 25 mg= 1 tab(s), Oral, qDay atorvastatin, 10 mg= 1 tab(s), Oral, qDay carbidopa-levodopa 25 mg-100 mg oral tablet, 2 tab(s), Oral, BID Dextrose 50% IV Push, 12.5 gram(s)= 25 mL, IV Push, AsDirected, PRN escitalopram, 10 mg= 1 tab(s), Oral, qDay hydrALAZINE, 10 mg= 0.5 mL, IV Push, QID, PRN labetalol, 10 mg= 2 mL, IV Push, q15min, PRN melatonin, 3 mg= 1 tab(s), Oral, qHS, PRN melatonin, 3 mg= 1 tab(s), Oral, qHS, PRN Zofran, 4 mg= 2 mL, IV Push, q4h, PRN Zofran ODT, 4 mg= 1 tab(s), Oral, q6h, PRN Home atenolol 25 mg oral tablet, 25 mg= 1 tab(s), Oral, qDay atorvastatin 10 mg oral tablet, 10 mg= 1 tab(s), Oral, qDay carbidopa-levodopa 25 mg-100 mg oral tablet, 2 tab(s), Oral, BID escitalopram 10 mg oral tablet, 10 mg= 1 tab(s), Oral, qDay ferrous sulfate, Oral, qDay Brent Move Free 500 mg-400 mg oral tablet, 1 tab, Oral, qDay turmeric 500 mg oral capsule, 500 mg= 1 cap(s), Oral, Daily Allergies Trimox (Hives) Immunizations No qualifying data available. Digitally Signed by JEEVAN MARTINEZ on 02/09/2023 09:39 AM Digitally Signed by JEEVAN MARTINEZ on 02/09/2023 09:39 AM [id number] History and physical note Date of Service 02/08/23 Chief Complaint Fall. History of Present Illness 77-year-old female with PMHx Parkinson's , HTN, depression, HLD presents to the ED as a transfer from ED for fall with SAH. History obtained by patient, ED physician, chart review. On the patient was confused walking from various rooms in her house aimlessly and turning on all thelights. She walked to the stairs and fell down 8-10 steps which is unusual because she typically does not use the stairs. Afterwards, she was more confused. The patient denies any focal neurologic issues. She has a history of chronic right lower extremity weakness which she and family state just happened. She typically has to lift her right lower extremity with her arms to get in and out of thecar. She does not take any blood thinners including aspirin. No vomiting, fever, chills, cough, diarrhea, urinary changes. She denies additional acute complaints. Labs and imaging at of note: CT head showed right occipital subarachnoid hemorrhage. This was discussed by ED physician with neurosurgery here. Since the injury occurred 2 days ago, the patient will be admitted to medicine on stepdown. CMP remarkable for BUN 27, globin 4.1, eleven 3.3. CRP 3.46. Troponin and lipase negative. TSH normal. COVID-19 was negative. Hemoglobin 10.1. Urinalysis was a contaminated specimen with moderate squamous cells. Review of Systems Pertinent review of systems are included in the HPI. All other systems were reviewed and are negative for acute changes from the patient's baseline. Physical Exam Vitals and Measurements T: 37.2 C (Oral) HR: 83 RR: 20 BP: 142/80 SpO2: 94% WT: 62.8 kg Weight Dosing Weight: 62.8 kg (02/08/23) GA: Alert and oriented x 2. She believes the year is 1923. Abd: Not distended HEENT: Left eye round and reactive to light and accommodation. Right eye cataract and droopy eyelidnoted. Reportedly chronic. Pulmonary: No tachypnea or use of accessory respiratory muscles. MSK: No gross deformities Cardiovascular: Not tachycardic Skin: Warm and dry Neuro: Spontaneous spontaneous movement of all extremities. Cranial nerves II through XII are grossly normal. Right lower extremity 3+ strength. Psychiatric: Thought content, associations, attention are all normal. Lab Results Ethanol Level: <10.0 (02/08/23 16:35:00) Imaging Results and Diagnostics CT Spine Cervical w/o Contrast Result Date: February 08, 2023 Verified By: HANK BROOKS MD CLINICAL STATEMENT: IMPRESSION: No acute cervical spine fracture. Preliminary Report was Dictated by a Resident I have personally reviewed all of the images of this examination and agreewith the resident findings and interpretation. XR Chest 1 View Result Date: February 08, 2023 Verified By: HANK BROOKS MD CLINICAL STATEMENT: IMPRESSION: Hypoventilatory changes without acute cardiopulmonary process. Preliminary Report was Dictated by a Resident I have personally reviewed all of the images of this examination andagreewith the resident findings and interpretation. Assessment/Plan Acute posttraumatic occipital subarachnoid hemorrhage. Patient had a history of fall. Prior to that, she was confused. No acute neurologic issues reported. Her physical exam shows right lower extremity weakness which is confirmed with the family to be chronic. She denies headache. Neurosurgery evaluated the case, they will follow in consultation. Stepdown with monitor. Will keep the patient on her home antihypertensives and add hydralazine and labetalol if BP elevated. Consult neurosurgery Avoid all antiplatelet and anticoagulant medications. Parkinson's disease. No acute change. Continue medications. Confusion. Occurred prior to the fall. The patient is amnestic to the fall and probably lost consciousness. She is on Parkinson's carbidopa levodopa which may cause confusion. Also UA was suggestive of UTI but contaminated with squamous cells. Recheck UA Monitor HTN. As above, continue atenolol. HLD. Chronic. Continue medications. Medications were not verified by pharmacy at the time of this dictation. Reconciliation to be completed once medications are verified; will address additional chronic medical problems at that time. DVT prophylaxis: SCDs Note dictated using voice recognition software and may contain typographical errors. Problem List/Past Medical History Ongoing No qualifying data Historical No qualifying data Procedure/Surgical History No qualifying data available. Medications No qualifying data available Allergies Trimox (Hives) Social History Lives with daughter Family History Nonsignificant Immunizations No qualifying data available. Code Status No qualifying data available. Digitally Signed by REILLY ROWLAND MD on 02/08/2023 08:50 PM [id number] Note ORIGINAL EXAMINATION: CT CHEST WITH CONTRAST02/08/2023 10:07 pm TECHNIQUE Multiple-row detector helical CT examination of the thorax with IV contrast. Axial, sagittal, and coronal reconstructed images. This exam was performed according to our departmental dose optimization program, and includes the following measures where applicable: automated exposure control, adjustment of the mAs and/or kVp according to patient size and/or exam, and an iterative reconstruction algorithm. HISTORY: ORDERING SYSTEM PROVIDED HISTORY: Reason for Exam: Fall, vertigo, headache, weakness COMPARISON Same day chest x-ray and cervical spine CT FINDINGS: The main airways are patent. No acute pulmonary parenchymal process. Dependent atelectasis within the lung bases. 3 mm nodule right upper lobe image 20. No pleural effusion or pneumothorax. The heart is normal in size without pericardial effusion. No supraclavicular, mediastinal, or axillary lymphadenopathy. Mild atherosclerotic disease of the aorta and branching vessels. Great vessels are normal in caliber. No thyroid nodule. No acute process of the chest wall or osseous structures. Mild multilevel degenerative changes of the spine. Limited abdominal images are noncontributory. IMPRESSION: 1. No acute intrathoracic pathology. 2. 3 mm nodule right upper lobe follow-up CT in 6 months if this patient is high risk or is a history of smoking. Preliminary Report was Dictated by a Resident I have personally reviewed all of the images of this examination and agree with the resident findings and interpretation. Interpreted by: Hank Brooks MD Preliminary Report By: Deon Davis Electronically signed By Hank Brooks MD Dictated Date: 02/08/2023 10:08:04 PM Prelim Date: 02/08/2023 10:17:28 PM Sign Date: 02/08/2023 10:26:14 PM Ordering Provider: [facility]01-02-2024 History and physical note Date of Service 02/08/23 Chief Complaint Fall. History of Present Illness 77-year-old female with PMHx Parkinson's , HTN, depression, HLD presents to the ED as a transfer from ED for fall with SAH. History obtained by patient, ED physician, chart review. On the patient was confused walking from various rooms in her house aimlessly and turning on all thelights. She walked to the stairs and fell down 8-10 steps which is unusual because she typically does not use the stairs. Afterwards, she was more confused. The patient denies any focal neurologic issues. She has a history of chronic right lower extremity weakness which she and family state just happened. She typically has to lift her right lower extremity with her arms to get in and out of thecar. She does not take any blood thinners including aspirin. No vomiting, fever, chills, cough, diarrhea, urinary changes. She denies additional acute complaints. Labs and imaging at of note: CT head showed right occipital subarachnoid hemorrhage. This was discussed by ED physician with neurosurgery here. Since the injury occurred 2 days ago, the patient will be admitted to medicine on stepdown. CMP remarkable for BUN 27, globin 4.1, eleven 3.3. CRP 3.46. Troponin and lipase negative. TSH normal. COVID-19 was negative. Hemoglobin 10.1. Urinalysis was a contaminated specimen with moderate squamous cells. Review of Systems Pertinent review of systems are included in the HPI. All other systems were reviewed and are negative for acute changes from the patient's baseline. Physical Exam Vitals and Measurements T: 37.2 C (Oral) HR: 83 RR: 20 BP: 142/80 SpO2: 94% WT: 62.8 kg Weight Dosing Weight: 62.8 kg (02/08/23) GA: Alert and oriented x 2. She believes the year is 1923. Abd: Not distended HEENT: Left eye round and reactive to light and accommodation. Right eye cataract and droopy eyelidnoted. Reportedly chronic. Pulmonary: No tachypnea or use of accessory respiratory muscles. MSK: No gross deformities Cardiovascular: Not tachycardic Skin: Warm and dry Neuro: Spontaneous spontaneous movement of all extremities. Cranial nerves II through XII are grossly normal. Right lower extremity 3+ strength. Psychiatric: Thought content, associations, attention are all normal. Lab Results Ethanol Level: <10.0 (02/08/23 16:35:00) Imaging Results and Diagnostics CT Spine Cervical w/o Contrast Result Date: February 08, 2023 Verified By: HANK BROOKS MD CLINICAL STATEMENT: IMPRESSION: No acute cervical spine fracture. Preliminary Report was Dictated by a Resident I have personally reviewed all of the images of this examination and agreewith the resident findings and interpretation. XR Chest 1 View Result Date: February 08, 2023 Verified By: HANK BROOKS MD CLINICAL STATEMENT: IMPRESSION: Hypoventilatory changes without acute cardiopulmonary process. Preliminary Report was Dictated by a Resident I have personally reviewed all of the images of this examination andagreewith the resident findings and interpretation. Assessment/Plan Acute posttraumatic occipital subarachnoid hemorrhage. Patient had a history of fall. Prior to that, she was confused. No acute neurologic issues reported. Her physical exam shows right lower extremity weakness which is confirmed with the family to be chronic. She denies headache. Neurosurgery evaluated the case, they will follow in consultation. Stepdown with monitor. Will keep the patient on her home antihypertensives and add hydralazine and labetalol if BP elevated. Consult neurosurgery Avoid all antiplatelet and anticoagulant medications. Parkinson's disease. No acute change. Continue medications. Confusion. Occurred prior to the fall. The patient is amnestic to the fall and probably lost consciousness. She is on Parkinson's carbidopa levodopa which may cause confusion. Also UA was suggestive of UTI but contaminated with squamous cells. Recheck UA Monitor HTN. As above, continue atenolol. HLD. Chronic. Continue medications. Medications were not verified by pharmacy at the time of this dictation. Reconciliation to be completed once medications are verified; will address additional chronic medical problems at that time. DVT prophylaxis: SCDs Note dictated using voice recognition software and may contain typographical errors. Problem List/Past Medical History Ongoing No qualifying data Historical No qualifying data Procedure/Surgical History No qualifying data available. Medications No qualifying data available Allergies Trimox (Hives) Social History Lives with daughter Family History Nonsignificant Immunizations No qualifying data available. Code Status No qualifying data available. Digitally Signed by REILLY ROWLAND MD on 02/08/2023 08:50 PM [id number] Note ORIGINAL EXAMINATION: CT OF THE CERVICAL SPINE WITHOUT CONTRAST02/08/2023 4:[address] of the cervical spine was performed without the administration of intravenous contrast. Multiplanar reformatted images are provided for review. Automated exposure control, iterative reconstruction, and/or weight based adjustment of the mA/kV was utilized to reduce the radiation dose to as low as reasonably achievable. RADIATION DOSE REDUCTION: This exam was performed according to the departmental dose-optimization program which includes automated exposure control, adjustment of the mA and/or kV according to patient size and/or use of iterative reconstruction technique. COMPARISON: Same day CT brain (images only, no report available at time of dictation) HISTORY: ORDERING SYSTEM PROVIDED HISTORY: Reason for Exam: Fall, SAH, pt states fall yesterday, denies neck pain Fall, SAH FINDINGS: Vertebral body heights are well maintained. There is straightening of the normal cervical lordosis, likely positional or related to muscle spasm. Slight grade 1 anterolisthesis of C3 on C4. Disc height loss is present at all levels. Mild to moderate multilevel osteophytosis. No acute fracture. C6 vertebral body hemangioma. There is no significant osseous narrowing of the spinal canal or foramina. Craniocervical junction is maintained. Prevertebral soft tissues are unremarkable. No thyroid nodule. Incompletely imaged superior aspect of the aortic arch within the left upper lobe. IMPRESSION: No acute cervical spine fracture. Preliminary Report was Dictated by a Resident I have personally reviewed all of the images of this examination and agree with the resident findings and interpretation. Interpreted by: Hank Brooks MD Preliminary Report By: Deon Davis Electronically signed By Hank Brooks MD Dictated Date: 02/08/2023 5:30:15 PM Prelim Date: 02/08/2023 6:12:02 PM Sign Date: 02/08/2023 6:55:16 PM Ordering Provider: [id number] Note ORIGINAL EXAMINATION: ONE XRAY VIEW OF THE CHEST02/08/2023 4:37 pm COMPARISON: None HISTORY: ORDERING SYSTEM PROVIDED HISTORY: Reason for Exam: hypoxia, fall FINDINGS: Hypoventilatory changes without focal consolidation or pulmonary edema. No pleural effusion or visible pneumothorax. Decreased bony mineralization. IMPRESSION: Hypoventilatory changes without acute cardiopulmonary process. Preliminary Report was Dictated by a Resident I have personally reviewed all of the images of this examination and agree with the resident findings and interpretation. Interpreted by: Hank Brooks MD Preliminary Report By: Deon Davis Electronically signed By Hank Brooks MD Dictated Date: 02/08/2023 5:18:49 PM Prelim Date: 02/08/2023 5:29:54 PM Sign Date: 02/08/2023 6:53:03 PM Ordering Provider: [facility]01-02-2024 Evaluation + Plan noteExtracted from: Title:History and Physical Author:RAFITA ROWLAND MD Date:02/08/23 Acute posttraumatic occipita l subarachnoid hemorrhage. Patient had a history of fall. Prior to that, she was confused. No acute neurologic issues reported. Her physical exam shows right lower extremity weakness which is confirmed with the family to be chronic. She denies headache. Neurosurgery evaluated the case, they will follow in consultation. Stepdown with monitor. Will keep the patient on her home antihypertensives and add hydralazine and labetalol if BP elevated. Consult neurosurgery Avoid all antiplatelet and anticoagulant medications. Parkinson's disease. No acute change. Continue medications. Confusion. Occurred prior to the fall. The patient is amnestic to the fall and probably lost consciousness. She is on Parkinson's carbidopa levodopa which may cause confusion. Also UA was suggestive of UTI but contaminated with squamous cells. Recheck UA Monitor HTN. As above, continue atenolol. HLD. Chronic. Continue medications. Medications were not verified by pharmacy at the time of this dictation. Reconciliation to be completed once medications are verified; will address additional chronic medical problems at that time. DVT prophylaxis: SCDs Note dictated using voice recognition software and may contain typographical errors. Addendum by REILLY ROWLAND MD on February 09, 2023 04:10:47 EST Medications not yet verified. They will need reconciled [facility] Evaluation noteNo assessment information available [facility] Work Phone: Hospital course Narrative No data available for this section [facility] Discharge instructions Additional Instructions Ice and elevate the arm to decrease swelling and pain. Elevate is much as possible. If our dressing stays dry and clean you can leave it on for up to 3 days. Then it needs to be taken off gently. Clean daily with soap and water. Apply antibiotic ointment. And redress. Call and follow-up with the plastic surgeon for further evaluation and wound care. Any signs of infection such as redness, pus, fever or streaks return to the emergency department. Tylenol for pain.[facility] Work Phone: Progress note Author Barbara Ramirez [facility] Note Date/Time July 03, 2024 11:09 am [facility] [address] [place] [address] OFFICE VISIT Date of Service: 07/03/24 MR#: [id number] Acct: [id number] Name: ROSARIO MCNALLY Rep #: [id number] : 1945 Provider: RANDALL Ramirez Age/Sex: 78/F Location[place] [facility] Status: Signed Intake Vital Signs 06/28/24 14:56 07/03/24 10:18 Height 5 ft 3 in 5 ft 3 in Weight: 134 lb 136 lb BMI 23.7 24.0 BP 165/91 H Blood Pressure Location Rt brachial Position Sitting Respiration 18 18 Pulse 76 66 Temp 97.7 F L Temp Source Oral Pulse Oximetry (%) 94 94 Oxygen Delivery Method room air room air Intake Visit Reasons: ANEMIA POSITIVE HEMOCULT Chief Complaint: occult positive stools Generation Technologist Required: No Accompanied by: Caregiver Is patient in pain?: No Allergies amoxicillin (From Trimox) Allergy (Verified 07/03/24 10:13) Hives Medications ?Medication ?Instructions ?Recorded ?Confirmed ?Type acetaminophen 650 mg 650 mg PO Q8H 03/28/2307/03 History tablet,extended release atorvastatin 10 mg tablet 10 mg PO QHS 03/28/23 History bisacodyl 10 mg rectal suppository 10 mg [place] DAILY PRN 03/28/23 07/03/24 History (Dulcolax (bisacodyl)) carbidopa 25 mg-levodopa 100 mg 1 tab PO .QID 03/28/23 07/03/24 History tablet docusate sodium 100 mg capsule 100 mg PO BID PRN 03/2807/03/24 History escitalopram oxalate 10 mg tablet 10 mg PO DAILY 03/2807/03/24 History ferrous sulfate 325 mg (65 mg 325 mg PO DAILY 03/28/23 07/03/24 History iron) tablet magnesium hydroxide 400 mg/5 mL 30 ml PO BID PRN 03/2807/03/24 History oral suspension (Milk of Magnesia) midodrine 5 mg tablet 5 mg PO TID 03/28/23 5 History polyethylene glycol 3350 17 17 g PO DAILY 03/28/23 History gram/dose oral powder (Miralax) aluminum-mag hydroxide-simethicone 1 tab PO Q6H PRN 07/03/24 History 200 mg-200 mg-25 mg chewable tablet (Gelusil Antacid and Anti-Gas) amlodipine 5 mg tablet 5 mg PO QDAY 07/03/24 History artifi.tears(hypromellose)(PF) 1.7 1 drp ophthalmic (e ye) TID 07/03/24 07/03/24 History % eye drops with applicator ondansetron HCl 4 mg tablet 4 mg PO Q6H PRN 07/03/24 0 07/03/24 History Have you fallen in the past year?: Yes PFSH Medical History Blindness left eye category 5, normal vision right eye Unsteadiness on feet Difficulty in walking Anemia Lung nodule Depression Wrist fracture, right Orthostatic hypotension Essential hypertension Subarachnoid hemorrhage following injury Hyperlipidemia Parkinson's disease Surgical History Hx laparoscopic cholecystectomy History of hysterectomy Family History Mother Hypertension Heart disease Diabetes Father Hypertension Emphysema lung Social History Smoking Status: Never smoker alcohol intake: never substance use type: does not use caffeine: Yes Type: coffee Number of servings: 2 additional social history: pt denies vaping, denies edibles, denies marijuana use, denies aspirin and denies ibuprofen use, pt denies family history of blood clots/blood disorders. HPI HPI Chief Complaint: occult positive stools Details: ROSARIO MCNALLY, is a 78 F who presents to the office today for LABS: 07/03/2024 - awaitng results 06/29/2024 HGB 9.8 06/27/2024 HGB 9.1, occult positive 02/15/2023 HGB 9.9 12/28/2021 HGB 10.4 Menses: child bearing age / Abnormal vaginal bleeding: denies Melena: denies Hematochezia: denies Hematuria: denies Hematemesis: denies Epistaxis: denies HB: denies Weight loss: denies Fevers: denies Night sweats: denies Kidney disease: denies NSAIDS: denies Anticoagulants: denies Bruising: yes Fatigue: denies Vegetarian: denies, she does consume red meat Blood donation: denies SOB: denies - H/O gastrointestinal surgeries (Gastric Bypass): denies COLOGUARD: Negative per patient, she believes this was within the past 5 years COLON: unknown when this was last performed - denies any family h/o colon CA EGD: (Celiac labs/Bx) - denies - Family h/o celiac disease: denies - denies any diarrhea or constipation - denies any abdominal pain - reports she would not undergo any invasive surgery or additional testing if a lesion/cancer were found [place] [phone] ROS Const Constitutional: No fatigue, fever(s) or weight change ENT ENT: No difficulty swallowing Gastro GI: Positive for Blood in stool; No abdominal pain, belching, bloating, change in bowel habits, change in stool character, coffee ground emesis, constipation, cramping, diarrhea, heartburn, difficulty swallowing, feeling full early, excessive flatus, incontinent of stools, Vomiting blood/hematemesis, loose stools, Black,tarry stools, nausea/dyspepsia, pain with swallowing, vomiting or other Musc Musculoskeletal: No joint pain Skin Skin: No yellowing of the eye or itchy eyes Neuro Neurology: Positive for tremor(s) Psych Psychiatric: No anxiety and No depression Endo Endocrine: No fatigue or weight change Aller/Imm Allergy/Immunologic: No itchy eyes Reyes/Lymp Hematologic/Lymphatic: Positive for easy bruising; No easy bleeding Exam Const General: cooperative, healthy appearing, no acute distress and well developed Nutritional Appearance: average body habitus and well nourished Orientation: alert and oriented x3 HENMT Head: normocephalic Ears: hearing grossly normal bilaterally Mouth: moist mucous membranes Teeth and gingiva: dentition normal Eyes Conjunctivae: conjunctivae normal Sclera: sclerae normal Neck Neck: normal visual inspection, full ROM and trachea midline Resp Effort & Inspection: normal respiratory effort, able to speak in complete sentences and symmetric chest movement Auscultation: Bilateral: Clear to Auscultation Cardio Rate: regular rate Rhythm: regular rhythm GI Inspection: normal to inspection Auscultation: normal bowel sounds Palpation: soft and no hepatosplenomegaly Rectal Exam: deferred Skin General: ecchymosis Other: left arm wrapped in johanny wrap Neuro General: patient alert and patient oriented x3 Cranial Nerves: other (CN's grossly intact, non-focal exam) Cognition: normal cognition Speech: speech normal Gait: gait assisted (unsteady) Method: walker Extrem General: normal to inspection (no edema noted) Psych Appearance: grossly normal and well kempt Affect: normal affect Attitude: cooperative Thought Process: normal Assessment and Plan Assessment and Plan (1) Anemia: Status: Acute (2) Occult blood positive stool: Status: Acute Orders: Orders CBC W/Diff, Automated 1 Month D64.9 - Anemia, unspecified Plan 78-year-old female presents with anemia, which appears to have acutely worsened following an unwitnessed fall resulting in a large left arm laceration [id number] sutures. Her hemoglobin initially dropped to 9.0 and has since stabilized to9.8 one-week post injury. Given the association with recent trauma, I believe her mild anemia is likely attributable to blood loss from the laceration, with expected gradual recovery to baseline. Notably, she also has a positive fecal occult. Despite previous negative colonoscopy and Cologuard, the presence of occult blood warrants consideration of gastrointestinal blood loss as a potential contributing factor. However, patient denies GI symptoms including melena, hematochezia, abdominal pain, or weight loss. She is not on any nonsteroidal medications or anticoagulant, and denies any known family history of colorectal cancer. She is physically unsteady and at high risk of falling, and a colonoscopy would necessitate a bowel prep that could further compromise her safety. Additionally, she has clearly expressed that she would not pursue surgical intervention even if an advanced lesion were to be found. Given her lack of stability, lack of concerning systemic symptoms, and personal preferences regarding treatment, I believe the risks of pursuing a colonoscopy at this time outweigh the potential benefits. The plan is to monitor hemoglobin levels for continued improvement, reassess if anemia worsens or new symptoms emerge, and consider noninvasive options such as repeat FIT testing only if clinically indicated and consistent with her goals of care. She reports having labs drawn this morning which I do not have the results of. If her hemoglobin remains stable, I recommend repeating in one month. Note: [employer] speech recognition band ripsaw operator software was used to create portions of this document. Sound-alike and misspelled words, as well as other band ripsaw operator errors may be contained in the documentation. Coding Level of Care Code Off vis,new,level 4 Diagnoses Anemia D64.9 Occult blood positive stool R19.5 Clinical Quality Measures Falls Risk Screening/Assistive Devices Have you fallen in the past year?: Yes Smoking Screening Smoking Status: Never smoker 07/03/24 1109 <Electronically signed by Barbara PEREIRA> Date _ Barbara PEREIRA Cosigner Signature: Date (if applicable) CC: ~ [facility] Work Phone: Reason for referral (narrative)No reason for referral information availableW[facility] Work Phone: Summary Purpose Family History No Family History Records Found Cancer Status:Active Comments:Brother . Coronary Artery Disease Status:Active Comments :parents Diabetes Mellitus Type II Status:Active Commen ts:Brother. Sister. Emphysema Status:Active Comments:father Father Status:Active Comments: d. Mother Status:Active Comments: d. Cancer Status:Active Comments:Brother . Coronary Artery Disease Status:Active Comments :parents Diabetes Mellitus Type II Status:Active Commen ts:Brother. Sister. Emphysema Status:Active Comments:father Father Status:Active Comments: d. Mother Status:Active Comments: d. Cancer Status:Active Comments:Brother . Coronary Artery Disease Status:Active Comments :parents Diabetes Mellitus Type II Status:Active Commen ts:Brother. Sister. Emphysema Status:Active Comments:father Father Status:Active Comments: d. Mother Status:Active Comments: d. Cancer Status:Active Comments:Brother . Coronary Artery Disease Status:Active Comments :parents Diabetes Mellitus Type II Status:Active Commen ts:Brother. Sister. Emphysema Status:Active Comments:father Father Status:Active Comments: d. Mother Status:Active Comments: d. Cancer Status:Active Comments:Brother . Coronary Artery Disease Status:Active Comments :parents Diabetes Mellitus Type II Status:Active Commen ts:Brother. Sister. Emphysema Status:Active Comments:father Father Status:Active Comments: d. Mother Status:Active Comments: d. Cancer Status:Active Comments:Brother . Coronary Artery Disease Status:Active Comments :parents Diabetes Mellitus Type II Status:Active Commen ts:Brother. Sister. Emphysema Status:Active Comments:father Father Status:Active Comments: d. Mother Status:Active Comments: d. Cancer Status:Active Comments:Brother . Coronary Artery Disease Status:Active Comments :parents Diabetes Mellitus Type II Status:Active Commen ts:Brother. Sister. Emphysema Status:Active Comments:father Father Status:Active Comments: d. Mother Status:Active Comments: d. Cancer Status:Active Comments:Brother . Coronary Artery Disease Status:Active Comments :parents Diabetes Mellitus Type II Status:Active Commen ts:Brother. Sister. Emphysema Status:Active Comments:father Father Status:Active Comments: d. Mother Status:Active Comments: d. Cancer Status:Active Comments:Brother . Coronary Artery Disease Status:Active Comments :parents Diabetes Mellitus Type II Status:Active Commen ts:Brother. Sister. Emphysema Status:Active Comments:father Father Status:Active Comments: d. Mother Status:Active Comments: d. Cancer Status:Active Comments:Brother . Coronary Artery Disease Status:Active Comments :parents Diabetes Mellitus Type II Status:Active Commen ts:Brother. Sister. Emphysema Status:Active Comments:father Father Status:Active Comments: d. Mother Status:Active Comments: d. Cancer Status:Active Comments:Brother . Coronary Artery Disease Status:Active Comments :parents Diabetes Mellitus Type II Status:Active Commen ts:Brother. Sister. Emphysema Status:Active Comments:father Father Status:Active Comments: d. Mother Status:Active Comments: d. Cancer Status:Active Comments:Brother . Coronary Artery Disease Status:Active Comments :parents Diabetes Mellitus Type II Status:Active Commen ts:Brother. Sister. Emphysema Status:Active Comments:father Father Status:Active Comments: d. Mother Status:Active Comments: d. Cancer Status:Active Comments:Brother . Coronary Artery Disease Status:Active Comments :parents Diabetes Mellitus Type II Status:Active Commen ts:Brother. Sister. Emphysema Status:Active Comments:father Father Status:Active Comments: d. Mother Status:Active Comments: d. Cancer Status:Active Comments:Brother . Coronary Artery Disease Status:Active Comments :parents Diabetes Mellitus Type II Status:Active Commen ts:Brother. Sister. Emphysema Status:Active Comments:father Father Status:Active Comments: d. Mother Status:Active Comments: d. Cancer Status:Active Comments:Brother . Coronary Artery Disease Status:Active Comments :parents Diabetes Mellitus Type II Status:Active Commen ts:Brother. Sister. Emphysema Status:Active Comments:father Father Status:Active Comments: d. Mother Status:Active Comments: d. Cancer Status:Active Comments:Brother . Coronary Artery Disease Status:Active Comments :parents Diabetes Mellitus Type II Status:Active Commen ts:Brother. Sister. Emphysema Status:Active Comments:father Father Status:Active Comments: d. Mother Status:Active Comments: d. Cancer Status:Active Comments:Brother . Coronary Artery Disease Status:Active Comments :parents Diabetes Mellitus Type II Status:Active Commen ts:Brother. Sister. Emphysema Status:Active Comments:father Father Status:Active Comments: d. Mother Status:Active Comments: d. Cancer Status:Active Comments:Brother . Coronary Artery Disease Status:Active Comments :parents Diabetes Mellitus Type II Status:Active Commen ts:Brother. Sister. Emphysema Status:Active Comments:father Father Status:Active Comments: d. Mother Status:Active Comments: d. Cancer Status:Active Comments:Brother . Coronary Artery Disease Status:Active Comments :parents Diabetes Mellitus Type II Status:Active Commen ts:Brother. Sister. Emphysema Status:Active Comments:father Father Status:Active Comments: d. Mother Status:Active Comments: d. Cancer Status:Active Comments:Brother . Coronary Artery Disease Status:Active Comments :parents Diabetes Mellitus Type II Status:Active Commen ts:Brother. Sister. Emphysema Status:Active Comments:father Father Status:Active Comments: d. Mother Status:Active Comments: d. Cancer Status:Active Comments:Brother . Coronary Artery Disease Status:Active Comments :parents Diabetes Mellitus Type II Status:Active Commen ts:Brother. Sister. Emphysema Status:Active Comments:father Father Status:Active Comments: d. Mother Status:Active Comments: d. Cancer Status:Active Comments:Brother . Coronary Artery Disease Status:Active Comments :parents Diabetes Mellitus Type II Status:Active Commen ts:Brother. Sister. Emphysema Status:Active Comments:father Father Status:Active Comments: d. Mother Status:Active Comments: d. Cancer Status:Active Comments:Brother . Coronary Artery Disease Status:Active Comments :parents Diabetes Mellitus Type II Status:Active Commen ts:Brother. Sister. Emphysema Status:Active Comments:father Father Status:Active Comments: d. Mother Status:Active Comments: d. Cancer Status:Active Comments:Brother . Coronary Artery Disease Status:Active Comments :parents Diabetes Mellitus Type II Status:Active Commen ts:Brother. Sister. Emphysema Status:Active Comments:father Father Status:Active Comments: d. Mother Status:Active Comments: d. Cancer Status:Active Comments:Brother . Coronary Artery Disease Status:Active Comments :parents Diabetes Mellitus Type II Status:Active Commen ts:Brother. Sister. Emphysema Status:Active Comments:father Father Status:Active Comments: d. Mother Status:Active Comments: d. Cancer Status:Active Comments:Brother . Coronary Artery Disease Status:Active Comments :parents Diabetes Mellitus Type II Status:Active Commen ts:Brother. Sister. Emphysema Status:Active Comments:father Father Status:Active Comments: d. Mother Status:Active Comments: d. Cancer Status:Active Comments:Brother . Coronary Artery Disease Status:Active Comments :parents Diabetes Mellitus Type II Status:Active Commen ts:Brother. Sister. Emphysema Status:Active Comments:father Father Status:Active Comments: d. Mother Status:Active Comments: d. Cancer Status:Active Comments:Brother . Coronary Artery Disease Status:Active Comments :parents Diabetes Mellitus Type II Status:Active Commen ts:Brother. Sister. Emphysema Status:Active Comments:father Father Status:Active Comments: d. Mother Status:Active Comments: d. Cancer Status:Active Comments:Brother . Coronary Artery Disease Status:Active Comments :parents Diabetes Mellitus Type II Status:Active Commen ts:Brother. Sister. Emphysema Status:Active Comments:father Father Status:Active Comments: d. Mother Status:Active Comments: d. Cancer Status:Active Comments:Brother . Coronary Artery Disease Status:Active Comments :parents Diabetes Mellitus Type II Status:Active Commen ts:Brother. Sister. Emphysema Status:Active Comments:father Father Status:Active Comments: d. Mother Status:Active Comments: d. Cancer Status:Active Comments:Brother . Coronary Artery Disease Status:Active Comments :parents Diabetes Mellitus Type II Status:Active Commen ts:Brother. Sister. Emphysema Status:Active Comments:father Father Status:Active Comments: d. Mother Status:Active Comments: d. Cancer Status:Active Comments:Brother . Coronary Artery Disease Status:Active Comments :parents Diabetes Mellitus Type II Status:Active Commen ts:Brother. Sister. Emphysema Status:Active Comments:father Father Status:Active Comments: d. Mother Status:Active Comments: d. Relationship Condition Age at Onset Recorded Date/T panfilo mother Hypertension Unknown Cardiac disease Unknown Diabetes mellitus Unknown father Hypertension Unknown Pulmonary emphysema Unknown Cancer Status:Active Comments:Brother . Coronary Artery Disease Status:Active Comments :parents Diabetes Mellitus Type II Status:Active Commen ts:Brother. Sister. Emphysema Status:Active Comments:father Father Status:Active Comments: d. Mother Status:Active Comments: d. Cancer Status:Active Comments:Brother . Coronary Artery Disease Status:Active Comments :parents Diabetes Mellitus Type II Status:Active Commen ts:Brother. Sister. Emphysema Status:Active Comments:father Father Status:Active Comments: d. Mother Status:Active Comments: d. Advance Directives No Advanced Directives Records Found Advance Directive Response Recorded Date/ Time Do you have a Healthcare Power of Bargain Table Clerk? Yes June 25, 2024 9:00pm Chief Complaint and Reason for Visit Chief Complaint Personal history of other diseases of the circulat Chief Complaint Admit Date LACERATION June 25, 2024 8:54p m Chief Complaint Admit Date LACERATION June 25, 2024 8:54p m ED FOLLOW UP June 28, 2024 2:25p m [facility] July 03, 2024 4:0 0am ANEMIA POSITIVE HEMOCULT July 03, 2024 9:56am Reason for Visit Admit Date Laceration of forearm, left June 28 2:25pm Anemia July 03, 2024 9:56a m Occult blood positive stool July 03 9:56am Chief Complaint Admit Date LACERATION June 25, 2024 8:54p m ED FOLLOW UP June 28, 2024 2:25p m [facility] July 03, 2024 4:0 0am ANEMIA POSITIVE HEMOCULT July 03, 2024 9:56am 1 W FU July 06, 2024 2:14p m Chief Complaint Admit Date LACERATION June 25, 2024 8:54p m ED FOLLOW UP June 28, 2024 2:25p m [facility] July 03, 2024 4:0 0am ANEMIA POSITIVE HEMOCULT July 03, 2024 9:56am 1 W FU July 06, 2024 2:14p m 1 W FU July 13, 2024 1:56p m Reason for Visit Admit Date Laceration of forearm, left June 28 2:25pm Anemia July 03, 2024 9:56a m Occult blood positive stool July 03 9:56am Laceration of forearm, left July 06 2:14pm Chief Complaint Admit Date LACERATION June 25, 2024 8:54p m [facility] June 27, 2024 5:0 0am [facility] June 28, 2024 5:0 0am ED FOLLOW UP June 28, 2024 2:25p m [facility] July 03, 2024 4:0 0am ANEMIA POSITIVE HEMOCULT July 03, 2024 9:56am 1 W FU July 06, 2024 2:14p m 1 W FU July 13, 2024 1:56p m Reason for Visit Admit Date Laceration of forearm, left June 28 2:25pm Anemia July 03, 2024 9:56a m Occult blood positive stool May 27th, 20 25 9:56am Laceration of forearm, left July 06 2:14pm Laceration of forearm, left July 13 1:56pm Additional Source Comments INFORMATION SOURCE (unrecogn ized section and content) DATE CREATED AUTHOR 12/30/2022 [facility] DATE CREATED AUTHOR AUTHOR'S ORGANIZ ATION 02/22/2023 [facility] DATE CREATED AUTHOR AUTHOR'S ORGANIZ ATION 03/05/2023 [facility] ([place]) DATE CREATED AUTHOR AUTHOR'S ORGANIZ ATION 07/23/2024 [facility] Patient Care team informatio n (unrecognized section and content) Team Status: Active Member Role Status Dates Dr. Stan Green MD Primary Care Provider Active Team Status: Inactive Member Role Status Dates TANIA TRAN Attending Provider, Referring Provider Active Dr. Stan Green MD Primary Care Provider Active Team Status: Active Member Role Status Dates Dr. Yahaira Winn MD Primary Care Provider Active Team Status: Inactive Member Role Status Dates Dr. Joel Muniz MD Emergency Provider Active S tart: June 25, 2024 End: June 26, 2024 Dr. Yahaira Winn MD Primary Care Provider Active Start: June 25, 2024 End: June 26, 2024 Team Status: Inactive Member Role Status Dates Dr. Joel Muniz MD Attending Provider Active S tart: June 25, 2024 End: June 26, 2024 Dr. Joel Muniz MD Emergency Provider Active S tart: June 25, 2024 End: June 26, 2024 Dr. Yahaira Winn MD Primary Care Provider Active Start: June 25, 2024 End: June 26, 2024 Team Status: Active Member Role Status Dates Dr. Yahaira Winn MD Primary Care Provider Active Start: June 27, 2024 Dr. Rahul SAAVEDRA MD Attending Provider Active Start: June 27, 2024 Team Status: Active Member Role Status Dates Dr. Yahaira Winn MD Primary Care Provider Active Start: June 28, 2024 Dr. Rahul SAAVEDRA MD Attending Provider Active Start: June 28, 2024 Team Status: Inactive Member Role Status Dates Dr. Yahaira Winn MD Primary Care Provider Active Start: June 28, 2024 End: June 28, 2024 Dr. Yahaira Winn MD Referring Provider Active Start: June 28, 2024 End: June 28, 2024 Dr. Jose Matthews MD Attending Provider Active Start: June 28, 2024 End: June 28, 2024 Team Status: Active Member Role Status Dates Dr. Yahaira Winn MD Primary Care Provider Active Start: June 29, 2024 Dr. Rahul SAAVEDRA MD Attending Provider Active Start: June 29, 2024 Team Status: Active Member Role Status Dates Dr. Yahaira Winn MD Primary Care Provider Active Start: July 03, 2024 Dr. Rahul SAAVEDRA MD Attending Provider Active Start: July 03, 2024 Dr. Rhaul SAAVEDRA MD Referring Provider Active Start: July 03, 2024 Team Status: Inactive Member Role Status Dates Dr. Yahaira Winn MD Primary Care Provider Active Start: July 03, 2024 End: July 03, 2024 Dr. Yahaira Winn MD Referring Provider Active Start: July 03, 2024 End: July 03, 2024 RANDALL Parker Attending Provider Active Start: July 03, 2024 End: July 03, 2024 Team Status: Inactive Member Role Status Dates Dr. Yahaira Winn MD Primary Care Provider Active Start: July 03, 2024 End: July 03, 2024 Dr. Rahul SAAVEDRA MD Attending Provider Active Start: July 03, 2024 End: July 03, 2024 Dr. Rahul SAAVEDRA MD Referring Provider Active Start: July 03, 2024 End: July 03, 2024 Team Status: Inactive Member Role Status Dates Dr. Yahaira Winn MD Primary Care Provider Active Start: July 06, 2024 End: July 06, 2024 Dr. Yahaira Winn MD Referring Provider Active Start: July 06, 2024 End: July 06, 2024 Dr. Jose Matthews MD Attending Provider Active Start: July 06, 2024 End: July 06, 2024 Team Status: Inactive Member Role Status Dates Dr. Yahaira Winn MD Primary Care Provider Active Start: July 13, 2024 End: July 13, 2024 Dr. Yahaira Winn MD Referring Provider Active Start: July 13, 2024 End: July 13, 2024 Dr. Jose Matthews MD Attending Provider Active Start: July 13, 2024 End: July 13, 2024 Team Status: Inactive Member Role Status Dates Dr. Yahaira Winn MD Primary Care Provider Active Start: June 27, 2024 End: June 27, 2024 Dr. Rahul SAAVEDRA MD Attending Provider Active Start: June 27, 2024 End: June 27, 2024 Team Status: Inactive Member Role Status Dates Dr. Yahaira Winn MD Primary Care Provider Active Start: June 28, 2024 End: June 28, 2024 Dr. Rahul SAAVEDRA MD Attending Provider Active Start: June 28, 2024 End: June 28, 2024 Goals (unrecognized section and content) Goals may be documented in a n alternate section FOR RECORDS PERTAINING TO PATIENTS WHO ARE OR HAVE BEEN ENROLLED IN A CHEMICAL DEPENDENCY/SUBSTANCEABUSE PROGRAM, SOME INFORMATION MAY BE OMITTED. This clinical summary was aggregated from multiple sources. Caution should be exercised in using it in the provision of clinical care. This summary normalizes information from multiple sources, and as a consequence, information in this document may materially change the coding, format and clinical context of patient data. In addition, data may be omitted in some cases. CLINICAL DECISIONS SHOULD BE BASED ON THE PRIMARY CLINICAL RECORDS. [employer] provides no warranty or guarantee of the accuracy or completeness of information in this document.
--- OUTSIDE RECORDS SUMMARY | 2024-07-27 04:35 | XMS RPT_ITS | CCD ---
Author Organization [facility] [place] [facility]ini[facility] Care Team Providers Care Book Author Name Role Phone Chico Collier MD Unavailable Chico Collier MD Unavailable [phone] [facility] Unavailable Phan SALAZAR, Dr. Alberts ([place] [facility]) A Unavail able [facility] Unavailable [phone] Physical Therapy, David Bennett Unavailable [facility], . [place] office Unavailable ([place]), [facility] Dermat[facility] Unavailable [facility] Unavailable Janeth Chávez RN Unavailable Unavailable Zack TENSION MACHINE OPERATOR, Serena Unavailable Pratik TAVAREZ, Erik Vazquez Unavailable Malinda Christie Unavailable Unavailable Pratik HUYNH, Ana Cristina L Unavailable Unavail able Tree SOTON, Tavia Unavailable Unavailable Sherman HUYNH, Frida Hope Unavailable Unavaila grecia Meier LPN, Obi Unavailable Unavailable Funmi Chisholm RN Unavailable [phone] Eulalia TENSION MACHINE OPERATOR, Sarah K Unavailable Unaronaldoi Tonie Ramirez Unavailable Unavailable Yonas Floreza L Unavailable Luis SOTON, Alea Peres Unavailable Unavailab juanis Vess TENSION MACHINE OPERATOR, Kevin Lopez Unavailable Unavailable Wetray TENSION MACHINE OPERATOR, Barbara Unavailable Unavailabl e Unavailable Unavailable NANDO [...] Care IVAN Pimentel DO Consulting Unavailable ASHLEY VEHICLE DISMANTLER-MANAGER GAMING, HEENA Navarrtee Consulting Unavaila grecia COLLIER MD, DR CHICO [facility] STAN Raymond DO Admitting Unavailable STAN GARCIA DO Attending Unavailable NANDO SALAZAR, DR CH[facility] Troy VALDIVIA MD, DR AMBRIZ Admitting Unavailable JACKELYN SALAZAR, KAYLI Consulting Unavailable ART SALAZAR FACP, ADELITA Trujillo Attending Unavail able Jesus Manuel YANCEY, Stefanie Unavailable Unavailable Dr. Joel Muniz MD Emergency Provider [phone] Pa SALAZAR, Dr. Yahaira Isaac Primary Care Provider [phone] Dr. Joel Muniz MD Attending Provider Dr. Rahul Shetty MD Attending Provider Unavail [...] Yahaira S Primary Care Unavailable Rahul Maldonado Referring Unavailable Rahul Maldonado Attending Unavailable [...] Facility (20 sources) Penicillin V Drug Allergy [facility].; [facility] (20 sources) predniSONE Drug Allergy [facility].; [facility], [facility]. (10 sources) Amoxicillin; Translations: [amoxicillin] Drug [facility] Amoxicillin Drug Allergy [facility] (1 source) predniSONE Drug Allergy [facility] (1 source) Amoxicillin Drug Allergy 5 [facility] Repository Medications Current Medications Medication Drug Class(es) Dates Sig (Normalized) Sig (Original) 8 hr acetaminophen 650 mg extended release oral tablet (9 sources) Start: 03-28-2023 take 1 tablet by mouth every eight hours Acetaminophen 650 mg tablet extended release Active 650 mg PO Q8H March 28, 2023 1:00am Start: 03-02-[address] [facility] every four hours as needed for pain Tylenol 325 mg oral capsule Dose : 650 mg =, Oral, q4h, PRN Muscle pain, 0 Refill(s) Start Date: 03/02/23 Status: Ordered aluminum hydroxide 200 mg / magnesium hydroxide 200 mg / simethicone 25 mg chewable tablet (15 sources) Start: 07-03-2024 Alum-Mag Dillon xide-Simeth (Gelusil Antacid And Anti-Gas) 200-200-25 mg [...] qDay, # 30 tab(s), 0 Refill(s), Pharmacy: [facility] 1724, 160, cm, 02/15/23 17:41:00 EST, [...] QID, # 120 tab(s), 0 Refill(s), Pharmacy: [facility]24, 160, cm, 02/15/23 17:41:00 EST, [...] TID, # 90 tab(s), 0 Refill(s), Pharmacy: [facility] 1724, 160, cm, 02/15/23 17:41:00 EST, Height, [...] July 03, 2024 12:00am polyethylene glycol 3350 88211 mg powder for oral solution (9 sources) [...] High risk drug monitoring status; Translations: [Other terminal carman (current) drug therapy] 11-14-2013 Episodic Other aftercare (1 source) Long-term current use of drug therapy; Translations: [Other jail (current) drug therapy] Episodic Other and unspecified [...] Report on 07-13-2024 Plastic Surgery Visit Report [facility] Plastic Reconstructive Surgery [address], [address] [place] [address] OFFICE VISIT Date of Service: 07/13/24 MR#: [id number] Acct: [id number] Name: DALIROSARIO Rep #: [id number] : 1945 Provider: Dr. Jose Matthews MD Age/Sex: 78/F Location: [facility] Status: Signed Intake Vital Signs 07/06/24 14:31 [...] bisacodyl 10 mg rectal suppository 10 mg NE DAILY PRN 03/28/2308/01 History (Dulcolax (bisacodyl)) carbidopa [...] proximal rosa (more content not included)... Normal [facility] Plastic Surgery Visit Report on 07-06-2024 Plastic Surgery Visit Report [facility] Plastic Reconstructive Surgery [address], [address] [place] [address] OFFICE VISIT Date of Service: 07/06/24 MR#: [id number] Acct: [id number] Name: ROSARIO MCNALLY Rep #: [id number] : 1945 Provider: Dr. Jose Matthews MD Age/Sex: 78/F [facility] [facility] Status: Signed Intake Vital Signs 3 06/28/24 [...] bisacodyl 10 mg rectal suppository 10 mg NE DAILY PRN 03/28/2306/09 History (Dulcolax (bisacodyl)) carbidopa [...] the s (more content not included)... Normal [facility] Erythrocyte distribution wid th ratioOrdered By: Rahul Shetty on 07-03-2024 Erythrocyte distribution width (RBC) [Ratio] 14.0 % 11.6-14.6 [facility] Erythrocyte distribution wid th standard deviationOrdered By: Rahul Shetty on 07-03-2024 Erythrocyte distribution width (RBC) [Ratio] 47.7 fl High 35.1-43.9 [facility] Gastroenterology Visit Repor ton 07-03-2024 Gastroenterology Visit Report [facility] Gastroenterology [address] [place] [address] OFFICE VISIT Date of Service: 07/03/24 MR#: [id number] Acct: [id number] Name: ROSARIO MCNALLY Rep #: [id number] : 1945 Provider: RANDALL li Age/Sex: 78/F [place] [facility] Status: Signed Intake Vital Signs 06/28/24 14:56 [...] POSITIVE HEMOCULT Chief Complaint: occult positive stools [place] Required: No Accompanied by: Caregiver Is patient in pain?: No Allergies amoxicillin (From Trimox) Allergy (Verified 07/03/24 10:13) Hives Medications ???Medication ???Instructions ???Recorded ???Confirmed ???Type acetaminophen 650 mg 650 mg PO Q8H 03/28/23 07/03/24 Hi story tablet,extended release atorvastatin 10 mg tablet 10 mg PO QHS 03/28/23 07/03/24 His tory bisacodyl 10 mg rectal suppository 10 mg NE DAILY PRN 03/28/2306/08 History (Dulcolax (bisacodyl)) carbidopa [...] testing if a lesion/cancer were found [place] [phone] ROS Const Constitutional: No fatigue, fever(s) or weight change ENT ENT: No difficulty swallowing Gastro GI: Positive for Blood in stool; No abdominal pain, belching, bloating, change in bowel habits, c (more content not included)... Normal [facility] Hematocrit Auto (Bld) [Volum e fraction]Ordered By: Rahul Shetty on 07-03-2024 Hematocrit (Bld) [Volume fraction] 30.5 % Low 37-47 [facility] Hemoglobin measurementOrdere d By: Rahul Shetty on 07-03-2024 Hemoglobin (Bld) [Mass/Vol] 9.8 g/dL Low 12.0-15.0 [facility] MCV (mean corpuscular volume ) determinationOrdered By: Rahul Shetty 07-03-2024 MCV (RBC) [Entitic vol] 93.6 fL 81-99 [facility] Mean corpuscular hemoglobin (MCH) determinationOrdered By: Rahul Shetty on 07-03-2024 MCH (RBC) [Entitic mass] 30.1 pg 27.0-32.0 [facility] Mean corpuscular hemoglobin concentration (MCHC) determinationOrdered By: Rahul Shetty on 07-03-2024 MCHC (RBC) [Mass/Vol] 32.1 g/dL 32-36 [facility] Mean platelet volume determi nationOrdered By: Rahul Shetty 07-03-2024 Platelet mean volume (Bld) [Entitic vol] 10.4 fL 6.2-12.0 [facility] Platelet countOrdered By: Vidal Shetty on 07-03-2024 Platelets (Bld) [#/Vol] 302 10*3/uL 150-450 [facility] RBC Auto (Bld) [#/Vol]Ordere d By: Rahul Shetty on 07-03-2024 RBC (Bld) [#/Vol] 3.26 10*6/uL Low 4.2-5.4 [facility] White blood cell (WBC) count Ordered By: Rahul Shetty on 07-03-2024 WBC (Bld) [#/Vol] 8.4 10*3/uL 4.4-11.[address] [facility] Erythrocyte distribution wid th ratioOrdered By: Rahul Shetty on 06-29-2024 Erythrocyte distribution width (RBC) [Ratio] 13.7 % 11.6-14.6 [facility] Erythrocyte distribution wid th standard deviationOrdered By: Rahul Shetty on 06-29-2024 Erythrocyte distribution width (RBC) [Ratio] 46.4 fl High 35.1-43.9 [facility] Hematocrit Auto (Bld) [Volum e fraction]Ordered By: Rahul Shetty on 06-29-2024 Hematocrit (Bld) [Volume fraction] 30.7 % Low 37-47 [facility] Hemoglobin measurementOrdere d By: Rahul Shetty on 06-29-2024 Hemoglobin (Bld) [Mass/Vol] 9.8 g/dL Low 12.0-15.0 [facility] MCV (mean corpuscular volume ) determinationOrdered By: Rahul Shetty on 06-29-2024 MCV (RBC) [Entitic vol] 92.5 fL 81-99 [facility] Mean corpuscular hemoglobin (MCH) determinationOrdered By: Rahul Shetty on 06-29-2024 MCH (RBC) [Entitic mass] 29.5 pg 27.0-32.0 [facility] Mean corpuscular hemoglobin concentration (MCHC) determinationOrdered By: Rahul Shetty on 06-29-2024 MCHC (RBC) [Mass/Vol] 31.9 g/dL Low 32-36 [facility] Mean platelet volume determi nationOrdered By: Rahul Shetty on 06-29-2024 Platelet mean volume (Bld) [Entitic vol] 10.2 fL 6.2-12.0 [facility] Platelet countOrdered By: Vidal Shetty on 06-29-2024 Platelets (Bld) [#/Vol] 286 10*3/uL 150-450 [facility] RBC Auto (Bld) [#/Vol]Ordere d By: Rahul Shetty on 06-29-2024 RBC (Bld) [#/Vol] 3.32 10*6/uL Low 4.2-5.4 [facility] White blood cell (WBC) count Ordered By: Rahul Shetty on 06-29-2024 WBC (Bld) [#/Vol] 8.0 10*3/uL 4.4-11.[address] [facility] Erythrocyte distribution wid th ratioOrdered By: Rahul Shetty on 06-28-2024 Erythrocyte distribution width (RBC) [Ratio] 13.7 % 11.6-14.6 [facility] Erythrocyte distribution wid th standard deviationOrdered By: Rahul Shetty on 06-28-2024 Erythrocyte distribution width (RBC) [Ratio] 46.7 fl High 35.1-43.9 [facility] Hematocrit Auto (Bld) [Volum e fraction]Ordered By: Rahul Shetty on 06-28-2024 Hematocrit (Bld) [Volume fraction] 27.6 % Low 37-47 [facility] Hemoglobin measurementOrdere d By: Rahul Shetty on 06-28-2024 Hemoglobin (Bld) [Mass/Vol] 9.0 g/dL Low 12.0-15.0 [facility] MCV (mean corpuscular volume ) determinationOrdered By: Rahul Shetty on 06-28-2024 MCV (RBC) [Entitic vol] 92.0 fL 81-99 [facility] Mean corpuscular hemoglobin (MCH) determinationOrdered By: Rahul Shetty on 06-28-2024 MCH (RBC) [Entitic mass] 30.0 pg 27.0-32.0 [facility] Mean corpuscular hemoglobin concentration (MCHC) determinationOrdered By: Rahul Shetty on 06-28-2024 MCHC (RBC) [Mass/Vol] 32.6 g/dL 32-36 [facility] Mean platelet volume determi nationOrdered By: Rahul Shetty on 06-28-2024 Platelet mean volume (Bld) [Entitic vol] 10.0 fL 6.2-12.0 [facility] Plastic Surgery Visit Report on 06-28-2024 Plastic Surgery Visit Report [facility] Plastic Reconstructive Surgery [address], [address] [place] [address] OFFICE VISIT Date of Service: 06/28/24 MR#: [id number] Acct: [id number] Name: ROSARIO MCNALLY Rep #: [id number] : 1945 Provider: Dr. Jose Matthews MD Age/Sex: 78/F Location[place] [facility] Status: Signed Intake Vital Signs 3 [...] bisacodyl 10 mg rectal suppository 10 mg NE DAILY PRN 03/28/2306/08 History (Dulcolax (bisacodyl)) carbidopa [...] 06/28/24 Hist ory mineral oil 118 ml NE DAILY PRN 03/28/2306/28 History polyethylene glycol 3350 17 17 g PO DAILY 03/28/23 06/28/24 Hi story gram/dose oral powder (Miralax) Have you fallen in the past year?: Yes (result laceration of left forearm) Nurse's Note: pt here with daughters for follow up from ED, fall resulted in left arm laceration, [facility] Medical History Blindness left eye category 5, [...] apnea, a (more content not included)... Normal [facility] Platelet countOrdered By: Vidal Shetty on 06-28-2024 Platelets (Bld) [#/Vol] 247 10*3/uL 150-450 [facility] RBC Auto (Bld) [#/Vol]Ordere d By: Rahul Shetty on 06-28-2024 RBC (Bld) [#/Vol] 3.00 10*6/uL Low 4.2-5.4 [facility] White blood cell (WBC) count Ordered By: Rahul Shetty on 06-28-2024 WBC (Bld) [#/Vol] 6.3 10*3/uL 4.4-11.[address] [facility] Anion gap in Serum or Plasma Ordered By: Rahul Shetty on 06-27-2024 Anion gap [Moles/Vol] 10 mmol/L 5-15 [facility] BUN/creatinine ratioOrdered By: Rahul Shetty on 06-27-2024 Urea nitrogen/Creatinine [Mass ratio] 28.9 mg/mg High 10-20 [facility] Bilirubin, totalOrdered By: Rahul Shetty on 06-27-2024 Bilirubin [Mass/Vol] 0.41 mg/dL 0.00-1.30 [facility] Carbon dioxide, total [Moles /volume] in Central venous bloodOrdered By: Rahul Shetty on 06-27-2024 CO2 [Moles/Vol] 25.8 mmol/L 21.0-32.0 [facility] Chloride assayOrdered By: Vidal Shetty on 06-27-2024 Chloride [Moles/Vol] 106 mmol/L 98-108 [facility] Erythrocyte distribution wid th ratioOrdered By: Rahul Shetty on 06-27-2024 Erythrocyte distribution width (RBC) [Ratio] 14.0 % 11.6-14.6 [facility] Erythrocyte distribution wid th standard deviationOrdered By: Rahul Shetty on 06-27-2024 Erythrocyte distribution width (RBC) [Ratio] 46.9 fl High 35.1-43.9 [facility] Glomerular filtration rate ( GFR) estimation/1.73 sq m using serum, plasma, or whole bOrdered By: Rahul Shetty on 06-27-2024 GFR/1.73 sq M.predicted among non-blacks MDRD (S/P/Bld) [Vol rate/Area] 63 mL/min/{1.73_m2} >60 [facility] Comment on above: mL/min/1.73m2 CKD-EP I Creatinine Equation (2020) Hematocrit Auto (Bld) [Volum e fraction]Ordered By: Rahul Shetty on 06-27-2024 Hematocrit (Bld) [Volume fraction] 28.2 % Low 37-47 [facility] Hemoglobin measurementOrdere d By: Rahul Shetty on 06-27-2024 Hemoglobin (Bld) [Mass/Vol] 9.1 g/dL Low 12.0-15.0 [facility] Laboratory - Chemistry and C hemistry - challengeOrdered By: Rahul Shetty on 06-27-2024 AST [Catalytic activity/Vol] 17 U/L <32 [facility] MCV (mean corpuscular volume ) determinationOrdered By: Rahul Shetty on 06-27-2024 MCV (RBC) [Entitic vol] 92.2 fL 81-99 [facility] Mean corpuscular hemoglobin (MCH) determinationOrdered By: Rahul Shetty on 06-27-2024 MCH (RBC) [Entitic mass] 29.7 pg 27.0-32.0 [facility] Mean corpuscular hemoglobin concentration (MCHC) determinationOrdered By: Rahul Shetty on 06-27-2024 MCHC (RBC) [Mass/Vol] 32.3 g/dL 32-36 [facility] Mean platelet volume determi nationOrdered By: Rahul Shetty on 06-27-2024 Platelet mean volume (Bld) [Entitic vol] 10.2 fL 6.2-12.0 [facility] Platelet countOrdered By: Vidal Shetty on 06-27-2024 Platelets (Bld) [#/Vol] 237 10*3/uL 150-450 [facility] Potassium measurement (mass/ volume)Ordered By: Rahul Shetty on 06-27-2024 Potassium (Unsp spec) [Mass/Vol] 4.3 mmol/L 3.3-5.1 [facility] RBC Auto (Bld) [#/Vol]Ordere d By: Rahul Shetty on 06-27-2024 RBC (Bld) [#/Vol] 3.06 10*6/uL Low 4.2-5.4 [facility] Serum creatinine measurement (mass/volume)Ordered By: Rahul Shetty on 06-27-2024 Creatinine [Mass/Vol] 0.93 mg/dL 0.70-1.20 [facility] Serum globulin measurementOr dered By: Rahul Shetty on 06-27-2024 Globulin (S) [Mass/Vol] 2.9 g/dL 2.2-4.2 [facility] Serum glucose measurement (m ass/volume)Ordered By: Rahul Shetty on 06-27-2024 Glucose [Mass/Vol] 89 mg/dL 70-[address] [facility] Serum or plasma alanine quiles otransferase (ALT) measurementOrdered By: Rahul Shetty on 06-27-2024 ALT [Catalytic activity/Vol] U/L <35 [facility] Serum or plasma albumin patricia urement (mass/volume)Ordered By: Rahul Shetty on 06-27-2024 Albumin [Mass/Vol] 3.7 g/dL 3.4-4.[address] [facility] Serum or plasma albumin/glob ulin mass ratioOrdered By: Rahul Shetty on 06-27-2024 Albumin/Globulin [Mass ratio] 1.3 {ratio} 0.9-2.4 [facility] Serum or plasma alkaline enriqueta sphatase measurementOrdered By: Rahul Shetty on 06-27-2024 ALP [Catalytic activity/Vol] 90 U/L 35-104 [facility] Serum or plasma calcium patricia urement (mass/volume)Ordered By: Rahul Shetty on 06-27-2024 Calcium [Mass/Vol] 9.1 mg/dL 7.6-11.[address] [facility] Serum or plasma urea nitroge n measurement (mass/volume)Ordered By: Rahul Shetty on 06-27-2024 Urea nitrogen [Mass/Vol] 27 mg/dL High 4-19 [facility] Sodium levelOrdered By: Clyde Shetty on 06-27-2024 Sodium [Moles/Vol] 142 mmol/L 133-[address] [facility] Stool gastrointestinal hemog lobin detection by immunologic methodOrdered By: Rahul Shetty on 06-27-2024 Lower GI hemoglobin IA Ql (Stl) Positive Abnormal [facility] Total proteinOrdered By: Lucien Shetty on 06-27-2024 Protein [Mass/Vol] 6.6 g/dL 5.9-8.[address] [facility] White blood cell (WBC) count Ordered By: Rahul Shetty on 06-27-2024 WBC (Bld) [#/Vol] 6.9 10*3/uL 4.4-11.[address] [facility] Bilirubin Test strip Ql (U)O rdered By: Rahul Shetty on 06-26-2024 Bilirubin Ql (U) Negative Negative [facility] Ketones Test strip Ql (U)Ord ered By: Rahul Shetty on 06-26-2024 Ketones Ql (U) 5 mg/dl High Negative [facility] Microscopic analysis of urin e for red blood cells (RBC)Ordered By: Rahul Shetty on 06-26-2024 Microscopic analysis of urine for red blood cells (RBC) 0 SEEN /hpf 0-5 [facility] Mucus LM Ql (Urine sed)Order ed By: Rahul Shetty on 06-26-2024 Mucus Ql (Urine sed) 1+ /hpf [facility] Nitrite Test strip Ql (U)Ord ered By: Rahul Shetty on 06-26-2024 Nitrite Ql (U) Negative Negative [facility] Protein Test strip Ql (U)Ord ered By: Rahul Shetty on 06-26-2024 Protein Ql (U) 30 mg/dl High Negative [facility] Squamous epithelial cells de tection in urine sediment by light microscopyOrdered By: Rahul Shetty on 06-26-2024 Epithelial cells.squamous LM Ql (Urine sed) 0-5 SEEN /hpf 5-10 [facility] Urine clarityOrdered By: Lucien Shetty on 06-26-2024 Clarity (U) Clear Clear [facility] Urine color determinationOrd ered By: Rahul Shetty on 06-26-2024 Color (U) Yellow Yellow [facility] Urine cultureOrdered By: Lucien Shetty on 06-26-2024 Bacteria identified Cx Nom (U) Positive Abnormal [facility] Urine glucose detectionOrder ed By: Rahul Shetty on 06-26-2024 Glucose Ql (U) Normal mg/dl Normal [facility] Urine leukocyte esterase det ection by dipstickOrdered By: Rahul Shetty on 06-26-2024 Leukocyte esterase Test strip Ql (U) Negative Negative [facility] Urine pHOrdered By: Rahul jackson on 06-26-2024 pH (U) 5.0 [pH] 5.0 - 8.0 [facility] Urine sediment bacteria coun t by microscopy (number/high power field)Ordered By: Rahul Shetty on 06-26-2024 Bacteria LM.HPF (Urine sed) [#/Area] 1 /[HPF] None Seen [facility] Urine sediment fine granular cast count by microscopy (number/low power field)Ordered By: Rahul Shetty on 06-26-2024 Fine Granular Casts LM.LPF (Urine sed) [#/Area] 0-5 SEEN /lpf 0-5 [facility] Urine specific gravity measu rementOrdered By: Rahul Shetty on 06-26-2024 Specific gravity (U) [Rel density] 1.020 1.002-1.030 [facility] Urine urobilinogen measureme ntOrdered By: Rahul Shetty on 06-26-2024 Urobilinogen Ql (U) Normal mg/dl Normal [facility] White blood cell countOrdere d By: Rahul Shetty on 05-20-2025 White blood cell count 0 SEEN /hpf 0-5 [facility] Emergency Department Summary on 06-25-2024 Emergency Department Summary [facility] Medical Records Department [address] [place] [address] Emergency Department Summary 06/25/24 MR#: [id number] Acct: [id number] Name: ROSARIO MCNALLY Rep #: [id number] : 1945 78 From: Joel Muniz MD PCP: Dr. Yahaira Winn MD Status:DEP ER Location: ED HPI History of Present Illness HPI Narrative: 78-year-old female history of Parkinson disease, anemia. Unwitnessed fall today at [facility]. Has a large forearm laceration/skin tear. Denies [...] of Funtion Narrative Narrative: 78-year-old female from [facility]. Unwitnessed fall. Large skin tear left forearm [...] bisacodyl 10 mg rectal suppository 10 mg NE DAILY PRN 03/28/23 Unkn own History (Dulcolax [...] Unknown Histo ry mineral oil 118 ml NE DAILY PRN 03/28/23 Unkno wn History polyethylene [...] girdle int (more content not included)... Normal [facility] Forearm 2 Viewson 06-25-2024 Forearm 2 Views [facility] Imaging Services [address] [place] [address] [id number] Forearm 2 Views MR#: [id number] Acct: [id number] Name: ROSARIO MCNALLY Rep #: [id number] : 1945 F 78 From: Joao Rondon MD PCP: Dr. Yahaira Winn MD Status: REG ER Study: Forearm 2 Views Date of Exam: 06/25/24 Exam# [id number] Ordering Dr: Joel Muniz MD PROCEDURE: FOREARM [...] osteopenia slightly limits this evaluation. Reading Location: [id number] CC: Dr. Yahaira Winn MD; Dr. 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 RECORD# NUMBER DATE DATE TYPE DALI [id number] F 77 02/08/23 02/08/23 3 ROSARIO Lopez [id number] ROOM: ER DATE OF : 1945 DICTATING [...] noted on the surgery list. MEDICATIONS: Per [facility] rec list. SOCIAL HISTORY: She [...] Grey Connor MD 02/08/23 15:14 JOB #: [id number] Transcribed By: ian 02/09/23 07:28 Electronically signed by: MODESTO Connor M.D. 02/22/23 07:05 Page 2 of 2 ROSARIO MCNALLY Emergency Room Report Normal [place] XR WRIST MINIMUM 3 VIEWS RIG on [...] 02/21/2023 12:22:22 PM Ordering Provider: STAN Tirado [facility] ([place]) .Auto Diffon 02-16-2023 Basophil, Absolute 0.0 10 3/mcL Normal 0.0-0.3 [facility] ([place]) Comment on above: Performed By: #### C BC, MG, ADIFF, BMP, ANEU, GFR, LARON #### [address] [address] Basophils/100 WBC (Bld) 0.6 % Normal 0.0-2.5 A [facility] ([place]) Comment on above: Performed By: #### C BC, MG, ADIFF, BMP, ANEU, GFR, LARON #### [address] [address] Eosinophil, Absolute 0.3 10 3/mcL Normal 0.0-0.7 [facility] ([place]) Comment on above: Performed By: #### C BC, MG, ADIFF, BMP, ANEU, GFR, LARON #### [address] [address] Eosinophils/100 WBC (Bld) 4.3 % Normal 0.0-6.0 [facility] ([place]) Comment on above: Performed By: #### C BC, MG, ADIFF, BMP, ANEU, GFR, LARON #### [address] [address] Lymphocyte, Absolute 1.1 10 3/mcL Normal 0.9-4.3 [facility] ([place]) Comment on above: Performed By: #### C BC, MG, ADIFF, BMP, ANEU, GFR, LARON #### [address] [address] Lymphocytes/100 WBC (Bld) 18.4 % Low 20.0-40.0 [facility] ([place]) Comment on above: Performed By: #### C BC, MG, ADIFF, BMP, ANEU, GFR, LARON #### [address] [address] Monocyte, Absolute 0.7 10 3/mcL Normal 0.1-1.4 [facility] ([place]) Comment on above: Performed By: #### C BC, MG, ADIFF, BMP, ANEU, GFR, LARON #### [address] [address] Monocytes/100 WBC (Bld) 11.9 % Normal 2.0-13.0 A [facility] ([place]) Comment on above: Performed By: #### C BC, MG, ADIFF, BMP, ANEU, GFR, LARON #### [address] [address] Neutrophils/100 WBC (Bld) 64.8 % Normal 50.0-75.0 [facility] ([place]) Comment on above: Performed By: #### C BC, MG, ADIFF, BMP, ANEU, GFR, LARON #### [address] [address] .GFRon 02-16-2023 GFR >60 Normal [facility] ([place]) Comment on above: Result Comment: GFR Population [...] MG, ADIFF, BMP, ANEU, GFR, LARON #### [address] [address] GFR Non- >60 Normal [facility] ([place]) Comment on above: Result Comment: GFR Population [...] MG, ADIFF, BMP, ANEU, GFR, LARON #### [address] [address] .NEUABSon 02-16-2023 Neutrophil, Absolute 4.0 10 3/mcL Normal 2.3-8.1 [facility] ([place]) Comment on above: Performed By: #### C BC, MG, ADIFF, BMP, ANEU, GFR, LARON #### [address] [address] BMPon 02-16-2023 BUN/Creatinine Ratio 19.0 ratio Normal 10.0-22.0 [facility] ([place]) Comment on above: Performed By: #### C BC, MG, ADIFF, BMP, ANEU, GFR, LARON #### [address] [address] Calcium [Mass/Vol] 8.8 mg/dL Normal 8.7-10.4 [facility] ([place]) Comment on above: Performed By: #### C BC, MG, ADIFF, BMP, ANEU, GFR, LARON #### [address] [address] Chloride [Moles/Vol] 105 mmol/L Normal 98-110 [facility] ([place]) Comment on above: Performed By: #### C BC, MG, ADIFF, BMP, ANEU, GFR, LARON #### [address] [address] CO2 [Moles/Vol] 33 mmol/L High 22-32 [facility] ([place]) Comment on above: Performed By: #### C BC, MG, ADIFF, BMP, ANEU, GFR, LARON #### [address] [address] Creatinine [Mass/Vol] 0.58 mg/dL Normal 0.50-1.20 [facility] ([place]) Comment on above: Performed By: #### C BC, MG, ADIFF, BMP, ANEU, GFR, LARON #### [address] [address] Electrolyte Balance 2.0 mEq/L Low 4.0-15.0 [facility] ([place]) Comment on above: Performed By: #### C BC, MG, ADIFF, BMP, ANEU, GFR, LARON #### [address] [address] Glucose [Mass/Vol] 90 mg/dL Normal 82-115 [facility] ([place]) Comment on above: Performed By: #### C BC, MG, ADIFF, BMP, ANEU, GFR, LARON #### [place] [phone] Potassium [Moles/Vol] 3.6 mmol/L Normal 3.5-5.0 [facility] ([place]) Comment on above: Performed By: #### C BC, MG, ADIFF, BMP, ANEU, GFR, LARON #### [place] [phone] Sodium [Moles/Vol] 140 mmol/L Normal 136-145 [facility] ([place]) Comment on above: Performed By: #### C BC, MG, ADIFF, BMP, ANEU, GFR, LARON #### [address] [address] Urea nitrogen [Mass/Vol] 11.0 mg/dL Normal 8.0-22.0 [facility] ([place]) Comment on above: Performed By: #### C BC, MG, ADIFF, BMP, ANEU, GFR, LARON #### [address] [address] CBCon 02-16-2023 Erythrocyte distribution width (RBC) [Ratio] 13.8 % Normal 11.5-15.5 [facility] ([place]) Comment on above: Performed By: #### C BC, MG, ADIFF, BMP, ANEU, GFR, LARON #### [place] [address] Hematocrit (Bld) [Volume fraction] 28.4 % Low 34.0-46.0 [facility] ([place]) Comment on above: Performed By: #### C BC, MG, ADIFF, BMP, ANEU, GFR, LARON #### [place] [phone] Hgb 9.9 G/dL Low 12.0-16.0 [facility] ([place]) Comment on above: Performed By: #### C BC, MG, ADIFF, BMP, ANEU, GFR, LARON #### [place] [address] MCH (RBC) [Entitic mass] 31.1 pg Normal 27.0-33.0 [facility] ([place]) Comment on above: Performed By: #### C BC, MG, ADIFF, BMP, ANEU, GFR, LARON #### [place] [address] MCHC 34.7 G/dL Normal 32.0-36.0 [facility] ([place]) Comment on above: Performed By: #### C BC, MG, ADIFF, BMP, ANEU, GFR, LARON #### [place] [address] MCV (RBC) [Entitic vol] 89.6 fL Normal 80.0-99.0 A [facility] ([place]) Comment on above: Performed By: #### C BC, MG, ADIFF, BMP, ANEU, GFR, LARON #### [place] [address] Platelet 284 10 3/mcL Normal 150-450 On license of [facility] ([place]) Comment on above: Performed By: #### C BC, MG, ADIFF, BMP, ANEU, GFR, LARON #### [place] [address] Platelet mean volume (Bld) [Entitic vol] 7.9 fL Normal 6.6-10.5 On license of [facility] ([place]) Comment on above: Performed By: #### C BC, MG, ADIFF, BMP, ANEU, GFR, LARON #### [facility] [address] [place] [address] RBC 3.17 10 6/mcL Low 4.10-5.30 [facility] ([place]) Comment on above: Performed By: #### C BC, MG, ADIFF, BMP, ANEU, GFR, LARON #### [facility] [address] [place] [address] WBC 6.2 10 3/mcL Normal 4.5-10.8 On license of [facility] ([place]) Comment on above: Performed By: #### C BC, MG, ADIFF, BMP, ANEU, GFR, LARON #### [facility] [address] [place] [address] LABORATORYOrdered By: SYSTEM SYSTEM on 02-16-2023 Basophils [...] Basophil, Absolute 0.0 10 3/mcL Normal 0.0-0.3 [facility] ([place]) Comment on above: Performed By: #### C BC, MG, ADIFF, BMP, ANEU, GFR, LARON #### [address] [address] Basophils/100 WBC (Bld) 0.5 % Normal 0.0-2.5 A [facility] ([place]) Comment on above: Performed By: #### C BC, MG, ADIFF, BMP, ANEU, GFR, LARON #### [address] [address] Eosinophil, Absolute 0.2 10 3/mcL Normal 0.0-0.7 [facility] ([place]) Comment on above: Performed By: #### C BC, MG, ADIFF, BMP, ANEU, GFR, LARON #### [address] [address] Eosinophils/100 WBC (Bld) 3.1 % Normal 0.0-6.0 [facility] ([place]) Comment on above: Performed By: #### C BC, MG, ADIFF, BMP, ANEU, GFR, LARON #### [address] [address] Lymphocyte, Absolute 1.4 10 3/mcL Normal 0.9-4.3 [facility] ([place]) Comment on above: Performed By: #### C BC, MG, ADIFF, BMP, ANEU, GFR, LARON #### [address] [address] Lymphocytes/100 WBC (Bld) 19.7 % Low 20.0-40.0 [facility] ([place]) Comment on above: Performed By: #### C BC, MG, ADIFF, BMP, ANEU, GFR, LARON #### [address] [address] Monocyte, Absolute 0.8 10 3/mcL Normal 0.1-1.4 [facility] ([place]) Comment on above: Performed By: #### C BC, MG, ADIFF, BMP, ANEU, GFR, LARON #### [address] [address] Monocytes/100 WBC (Bld) 11.1 % Normal 2.0-13.0 [facility] ([place]) Comment on above: Performed By: #### C BC, MG, ADIFF, BMP, ANEU, GFR, LARON #### [address] [address] Neutrophils/100 WBC (Bld) 65.6 % Normal 50.0-75.0 [facility] ([place]) Comment on above: Performed By: #### C BC, MG, ADIFF, BMP, ANEU, GFR, LARON #### [address] [address] .GFRon 02-15-2023 GFR >60 Normal [facility] ([place]) Comment on above: Result Comment: GFR Population [...] MG, ADIFF, BMP, ANEU, GFR, LARON #### [place] [address] GFR Non- >60 Normal [facility] ([place]) Comment on above: Result Comment: GFR Population [...] MG, ADIFF, BMP, ANEU, GFR, LARON #### [place] [address] .NEUABSon 02-15-2023 Neutrophil, Absolute 4.5 10 3/mcL Normal 2.3-8.1 [facility] ([place]) Comment on above: Performed By: #### C BC, MG, ADIFF, BMP, ANEU, GFR, LARON #### [address] [address] BMPon 02-15-2023 BUN/Creatinine Ratio 17.5 ratio Normal 10.0-22.0 [facility] ([place]) Comment on above: Performed By: #### C BC, MG, ADIFF, BMP, ANEU, GFR, LARON #### [place] [phone] Calcium [Mass/Vol] 8.4 mg/dL Low 8.7-10.4 [facility] ([place]) Comment on above: Performed By: #### C BC, MG, ADIFF, BMP, ANEU, GFR, LARON #### [place] [phone] Chloride [Moles/Vol] 111 mmol/L High 98-110 [facility] ([place]) Comment on above: Performed By: #### C BC, MG, ADIFF, BMP, ANEU, GFR, LARON #### [place] [address] CO2 [Moles/Vol] 29 mmol/L Normal 22-32 [facility] ([place]) Comment on above: Performed By: #### C BC, MG, ADIFF, BMP, ANEU, GFR, LARON #### [place] [address] Creatinine [Mass/Vol] 0.57 mg/dL Normal 0.50-1.20 [facility] ([place]) Comment on above: Performed By: #### C BC, MG, ADIFF, BMP, ANEU, GFR, LARON #### [place] [address] Electrolyte Balance 2.0 mEq/L Low 4.0-15.0 [facility] ([place]) Comment on above: Performed By: #### C BC, MG, ADIFF, BMP, ANEU, GFR, LARON #### [place] [phone] Glucose [Mass/Vol] 87 mg/dL Normal 82-115 [facility] ([place]) Comment on above: Performed By: #### C BC, MG, ADIFF, BMP, ANEU, GFR, LARON #### [place] [phone] Potassium [Moles/Vol] 3.6 mmol/L Normal 3.5-5.0 [facility] ([place]) Comment on above: Performed By: #### C BC, MG, ADIFF, BMP, ANEU, GFR, LARON #### [place] [phone] Sodium [Moles/Vol] 142 mmol/L Normal 136-145 [facility] ([place]) Comment on above: Performed By: #### C BC, MG, ADIFF, BMP, ANEU, GFR, LARON #### [place] [address] Urea nitrogen [Mass/Vol] 10.0 mg/dL Normal 8.0-22.0 [facility] ([place]) Comment on above: Performed By: #### C BC, MG, ADIFF, BMP, ANEU, GFR, LARON #### [place] [address] CBCon 02-15-2023 Erythrocyte distribution width (RBC) [Ratio] 14.0 % Normal 11.5-15.5 [facility] ([place]) Comment on above: Performed By: #### C BC, MG, ADIFF, BMP, ANEU, GFR, LARON #### [place] [address] Hematocrit (Bld) [Volume fraction] 31.1 % Low 34.0-46.0 [facility] ([place]) Comment on above: Performed By: #### C BC, MG, ADIFF, BMP, ANEU, GFR, LARON #### [place] [address] Hgb 10.3 G/dL Low 12.0-16.0 [facility] ([place]) Comment on above: Performed By: #### C BC, MG, ADIFF, BMP, ANEU, GFR, LARON #### [place] [address] MCH (RBC) [Entitic mass] 29.8 pg Normal 27.0-33.0 [facility] ([place]) Comment on above: Performed By: #### C BC, MG, ADIFF, BMP, ANEU, GFR, LARON #### [place] [address] MCHC 33.1 G/dL Normal 32.0-36.0 [facility] ([place]) Comment on above: Performed By: #### C BC, MG, ADIFF, BMP, ANEU, GFR, LARON #### [place] [address] MCV (RBC) [Entitic vol] 90.2 fL Normal 80.0-99.0 A [facility] ([place]) Comment on above: Performed By: #### C BC, MG, ADIFF, BMP, ANEU, GFR, LARON #### [place] [address] Platelet 271 10 3/mcL Normal 150-450 On license of [facility] ([place]) Comment on above: Performed By: #### C BC, MG, ADIFF, BMP, ANEU, GFR, LARON #### [place] [address] Platelet mean volume (Bld) [Entitic vol] 8.1 fL Normal 6.6-10.5 On license of [facility] ([place]) Comment on above: Performed By: #### C BC, MG, ADIFF, BMP, ANEU, GFR, LARON #### [place] [address] RBC 3.45 10 6/mcL Low 4.10-5.30 [facility] ([place]) Comment on above: Performed By: #### C BC, MG, ADIFF, BMP, ANEU, GFR, LARON #### [place] [address] WBC 6.9 10 3/mcL Normal 4.5-10.8 On license of [facility] ([place]) Comment on above: Performed By: #### C BC, MG, ADIFF, BMP, ANEU, GFR, LARON #### [place] [address] LABORATORYOrdered By: SYSTEM SYSTEM on 02-15-2023 Basophils [...] (S/P/Bld) [Vol rate/Area] ml/min/1.73sqm Invalid Interpretation Code [employer] S Comment on above: Interpretive Data: [...] (S/P/Bld) [Vol rate/Area] ml/min/1.73sqm Invalid Interpretation Code [employer] S Comment on above: Interpretive Data: [...] 02-15-2023 Magnesium [Mass/Vol] 1.6 mg/dL Normal 1.6-2.4 [facility] ([place]) Comment on above: Performed By: #### C BC, MG, ADIFF, BMP, ANEU, GFR, LARON #### [address] [address] No Panel Informationon 02-14 Culture Urine >100,000 cfu/ml Enterococcus faecalis ANGEL to follow [facility] .Auto Diffon 02-13-2023 Basophil, Absolute 0.0 10 3/mcL Normal 0.0-0.3 [facility] ([place]) Comment on above: Performed By: #### C BC, MG, ADIFF, BMP, ANEU, GFR, LARON #### [address] [address] Basophils/100 WBC (Bld) 0.3 % Normal 0.0-2.5 A [facility] ([place]) Comment on above: Performed By: #### C BC, MG, ADIFF, BMP, ANEU, GFR, LARON #### [address] [address] Eosinophil, Absolute 0.3 10 3/mcL Normal 0.0-0.7 [facility] ([place]) Comment on above: Performed By: #### C BC, MG, ADIFF, BMP, ANEU, GFR, LARON #### [address] [address] Eosinophils/100 WBC (Bld) 4.0 % Normal 0.0-6.0 [facility] ([place]) Comment on above: Performed By: #### C BC, MG, ADIFF, BMP, ANEU, GFR, LARON #### [address] [address] Lymphocyte, Absolute 0.9 10 3/mcL Normal 0.9-4.3 [facility] ([place]) Comment on above: Performed By: #### C BC, MG, ADIFF, BMP, ANEU, GFR, LARON #### [address] [address] Lymphocytes/100 WBC (Bld) 12.1 % Low 20.0-40.0 [facility] ([place]) Comment on above: Performed By: #### C BC, MG, ADIFF, BMP, ANEU, GFR, LARON #### [address] [address] Monocyte, Absolute 0.8 10 3/mcL Normal 0.1-1.4 [facility] ([place]) Comment on above: Performed By: #### C BC, MG, ADIFF, BMP, ANEU, GFR, LARON #### [address] [address] Monocytes/100 WBC (Bld) 11.4 % Normal 2.0-13.0 [facility] ([place]) Comment on above: Performed By: #### C BC, MG, ADIFF, BMP, ANEU, GFR, LARON #### [address] [address] Neutrophils/100 WBC (Bld) 72.2 % Normal 50.0-75.0 [facility] ([place]) Comment on above: Performed By: #### C BC, MG, ADIFF, BMP, ANEU, GFR, LARON #### [address] [address] .GFRon 02-13-2023 GFR >60 Normal [facility] ([place]) Comment on above: Result Comment: GFR Population [...] MG, ADIFF, BMP, ANEU, GFR, LARON #### [address] [address] GFR Non- >60 Normal [facility] ([place]) Comment on above: Result Comment: GFR Population [...] MG, ADIFF, BMP, ANEU, GFR, LARON #### [address] [address] .NEUABSon 02-13-2023 Neutrophil, Absolute 5.2 10 3/mcL Normal 2.3-8.1 [facility] ([place]) Comment on above: Performed By: #### C BC, MG, ADIFF, BMP, ANEU, GFR, LARON #### [address] [address] BMPon 02-13-2023 BUN/Creatinine Ratio 20.8 ratio Normal 10.0-22.0 [facility] ([place]) Comment on above: Performed By: #### C BC, MG, ADIFF, BMP, ANEU, GFR, LARON #### [address] [address] Calcium [Mass/Vol] 8.3 mg/dL Low 8.7-10.4 [facility] ([place]) Comment on above: Performed By: #### C BC, MG, ADIFF, BMP, ANEU, GFR, LARON #### [address] [address] Chloride [Moles/Vol] 108 mmol/L Normal 98-110 [facility] ([place]) Comment on above: Performed By: #### C BC, MG, ADIFF, BMP, ANEU, GFR, LARON #### [address] [address] CO2 [Moles/Vol] 25 mmol/L Normal 22-32 [facility] ([place]) Comment on above: Performed By: #### C BC, MG, ADIFF, BMP, ANEU, GFR, LARON #### [address] [address] Creatinine [Mass/Vol] 0.53 mg/dL Normal 0.50-1.20 [facility] ([place]) Comment on above: Performed By: #### C BC, MG, ADIFF, BMP, ANEU, GFR, LARON #### [address] [address] Electrolyte Balance 7.0 mEq/L Normal 4.0-15.0 [facility] ([place]) Comment on above: Performed By: #### C BC, MG, ADIFF, BMP, ANEU, GFR, LARON #### [address] [address] Glucose [Mass/Vol] 96 mg/dL Normal 82-115 [facility] ([place]) Comment on above: Performed By: #### C BC, MG, ADIFF, BMP, ANEU, GFR, LARON #### [address] [address] Potassium [Moles/Vol] 3.4 mmol/L Low 3.5-5.0 [facility] ([place]) Comment on above: Performed By: #### C BC, MG, ADIFF, BMP, ANEU, GFR, LARON #### [place] [address] Sodium [Moles/Vol] 140 mmol/L Normal 136-145 [facility] ([place]) Comment on above: Performed By: #### C BC, MG, ADIFF, BMP, ANEU, GFR, LARON #### [place] [address] Urea nitrogen [Mass/Vol] 11.0 mg/dL Normal 8.0-22.0 [facility] ([place]) Comment on above: Performed By: #### C BC, MG, ADIFF, BMP, ANEU, GFR, LARON #### [place] [address] CBCon 02-13-2023 Erythrocyte distribution width (RBC) [Ratio] 14.2 % Normal 11.5-15.5 [facility] ([place]) Comment on above: Performed By: #### C BC, MG, ADIFF, BMP, ANEU, GFR, LARON #### [place] [address] Hematocrit (Bld) [Volume fraction] 29.4 % Low 34.0-46.0 [facility] ([place]) Comment on above: Performed By: #### C BC, MG, ADIFF, BMP, ANEU, GFR, LARON #### [place] [address] Hgb 9.9 G/dL Low 12.0-16.0 [facility] ([place]) Comment on above: Performed By: #### C BC, MG, ADIFF, BMP, ANEU, GFR, LARON #### [place] [address] MCH (RBC) [Entitic mass] 30.5 pg Normal 27.0-33.0 [facility] ([place]) Comment on above: Performed By: #### C BC, MG, ADIFF, BMP, ANEU, GFR, LARON #### [place] [phone] MCHC 33.6 G/dL Normal 32.0-36.0 [facility] ([place]) Comment on above: Performed By: #### C BC, MG, ADIFF, BMP, ANEU, GFR, LARON #### [place] [address] MCV (RBC) [Entitic vol] 90.6 fL Normal 80.0-99.0 A [facility] ([place]) Comment on above: Performed By: #### C BC, MG, ADIFF, BMP, ANEU, GFR, LARON #### [place] [address] Platelet 221 10 3/mcL Normal 150-450 On license of [facility] ([place]) Comment on above: Performed By: #### C BC, MG, ADIFF, BMP, ANEU, GFR, LARON #### [place] [address] Platelet mean volume (Bld) [Entitic vol] 7.6 fL Normal 6.6-10.5 On license of [facility] ([place]) Comment on above: Performed By: #### C BC, MG, ADIFF, BMP, ANEU, GFR, LARON #### [place] [address] RBC 3.24 10 6/mcL Low 4.10-5.30 [facility] ([place]) Comment on above: Performed By: #### C BC, MG, ADIFF, BMP, ANEU, GFR, LARON #### [place] [address] WBC 7.2 10 3/mcL Normal 4.5-10.8 On license of [facility] ([place]) Comment on above: Performed By: #### C BC, MG, ADIFF, BMP, ANEU, GFR, LARON #### [place] [address] LABORATORYOrdered By: SYSTEM SYSTEM on 02-13-2023 Basophils [...] (S/P/Bld) [Vol rate/Area] ml/min/1.73sqm Invalid Interpretation Code [employer] S Comment on above: Interpretive Data: GFR [...] (S/P/Bld) [Vol rate/Area] ml/min/1.73sqm Invalid Interpretation Code [employer] S Comment on above: Interpretive Data: [...] Basophil, Absolute 0.0 10 3/mcL Normal 0.0-0.3 [facility] ([place]) Comment on above: Performed By: #### C BC, MG, ADIFF, BMP, ANEU, GFR, LARON #### [address] [address] Basophils/100 WBC (Bld) 0.5 % Normal 0.0-2.5 [facility] ([place]) Comment on above: Performed By: #### C BC, MG, ADIFF, BMP, ANEU, GFR, LARON #### [address] [address] Eosinophil, Absolute 0.4 10 3/mcL Normal 0.0-0.7 [facility] ([place]) Comment on above: Performed By: #### C BC, MG, ADIFF, BMP, ANEU, GFR, LARON #### [address] [address] Eosinophils/100 WBC (Bld) 5.1 % Normal 0.0-6.0 [facility] ([place]) Comment on above: Performed By: #### C BC, MG, ADIFF, BMP, ANEU, GFR, LARON #### [address] [address] Lymphocyte, Absolute 1.6 10 3/mcL Normal 0.9-4.3 [facility] ([place]) Comment on above: Performed By: #### C BC, MG, ADIFF, BMP, ANEU, GFR, LARON #### [address] [address] Lymphocytes/100 WBC (Bld) 18.9 % Low 20.0-40.0 [facility] ([place]) Comment on above: Performed By: #### C BC, MG, ADIFF, BMP, ANEU, GFR, LARON #### [address] [address] Monocyte, Absolute 0.9 10 3/mcL Normal 0.1-1.4 [facility] ([place]) Comment on above: Performed By: #### C BC, MG, ADIFF, BMP, ANEU, GFR, LARON #### [address] [address] Monocytes/100 WBC (Bld) 11.1 % Normal 2.0-13.0 A [facility] ([place]) Comment on above: Performed By: #### C BC, MG, ADIFF, BMP, ANEU, GFR, LARON #### [address] [address] Neutrophils/100 WBC (Bld) 64.4 % Normal 50.0-75.0 [facility] ([place]) Comment on above: Performed By: #### C BC, MG, ADIFF, BMP, ANEU, GFR, LARON #### [address] [address] .GFRon 02-11-2023 GFR >60 Normal [facility] ([place]) Comment on above: Result Comment: GFR Population [...] MG, ADIFF, BMP, ANEU, GFR, LARON #### [address] [address] GFR Non- >60 Normal [facility] ([place]) Comment on above: Result Comment: GFR Population [...] MG, ADIFF, BMP, ANEU, GFR, LARON #### [address] [address] .NEUABSon 02-11-2023 Neutrophil, Absolute 5.4 10 3/mcL Normal 2.3-8.1 [facility] ([place]) Comment on above: Performed By: #### C BC, MG, ADIFF, BMP, ANEU, GFR, LARON #### [place] [address] BMPon 02-11-2023 BUN/Creatinine Ratio 28.8 ratio High 10.0-22.0 [facility] ([place]) Comment on above: Performed By: #### C BC, MG, ADIFF, BMP, ANEU, GFR, LARON #### [address] [address] Calcium [Mass/Vol] 8.7 mg/dL Normal 8.7-10.4 [facility] ([place]) Comment on above: Performed By: #### C BC, MG, ADIFF, BMP, ANEU, GFR, LARON #### [address] [address] Chloride [Moles/Vol] 107 mmol/L Normal 98-110 [facility] ([place]) Comment on above: Performed By: #### C BC, MG, ADIFF, BMP, ANEU, GFR, LARON #### [address] [address] CO2 [Moles/Vol] 29 mmol/L Normal 22-32 [facility] ([place]) Comment on above: Performed By: #### C BC, MG, ADIFF, BMP, ANEU, GFR, LARON #### [address] [address] Creatinine [Mass/Vol] 0.80 mg/dL Normal 0.50-1.20 [facility] ([place]) Comment on above: Performed By: #### C BC, MG, ADIFF, BMP, ANEU, GFR, LARON #### [address] [address] Electrolyte Balance 5.0 mEq/L Normal 4.0-15.0 [facility] ([place]) Comment on above: Performed By: #### C BC, MG, ADIFF, BMP, ANEU, GFR, LARON #### [address] [address] Glucose [Mass/Vol] 98 mg/dL Normal 82-115 [facility] ([place]) Comment on above: Performed By: #### C BC, MG, ADIFF, BMP, ANEU, GFR, LARON #### [address] [address] Potassium [Moles/Vol] 3.4 mmol/L Low 3.5-5.0 [facility] ([place]) Comment on above: Performed By: #### C BC, MG, ADIFF, BMP, ANEU, GFR, LARON #### [address] [address] Sodium [Moles/Vol] 141 mmol/L Normal 136-145 [facility] ([place]) Comment on above: Performed By: #### C BC, MG, ADIFF, BMP, ANEU, GFR, LARON #### [address] [address] Urea nitrogen [Mass/Vol] 23.0 mg/dL High 8.0-22.0 [facility] ([place]) Comment on above: Performed By: #### C BC, MG, ADIFF, BMP, ANEU, GFR, LARON #### [address] [address] CBCon 02-11-2023 Erythrocyte distribution width (RBC) [Ratio] 13.9 % Normal 11.5-15.5 [facility] ([place]) Comment on above: Performed By: #### C BC, MG, ADIFF, BMP, ANEU, GFR, LARON #### [place] [phone] Hematocrit (Bld) [Volume fraction] 28.6 % Low 34.0-46.0 [facility] ([place]) Comment on above: Performed By: #### C BC, MG, ADIFF, BMP, ANEU, GFR, LARON #### [place] [phone] Hgb 9.9 G/dL Low 12.0-16.0 [facility] ([place]) Comment on above: Performed By: #### C BC, MG, ADIFF, BMP, ANEU, GFR, LARON #### [place] [address] MCH (RBC) [Entitic mass] 31.2 pg Normal 27.0-33.0 [facility] ([place]) Comment on above: Performed By: #### C BC, MG, ADIFF, BMP, ANEU, GFR, LARON #### [place] [phone] MCHC 34.7 G/dL Normal 32.0-36.0 [facility] ([place]) Comment on above: Performed By: #### C BC, MG, ADIFF, BMP, ANEU, GFR, LARON #### [place] [id number] MCV (RBC) [Entitic vol] 89.9 fL Normal 80.0-99.0 A [facility] ([place]) Comment on above: Performed By: #### C BC, MG, ADIFF, BMP, ANEU, GFR, LARON #### [place] [id number] Platelet 201 10 3/mcL Normal 150-450 On license of [facility] ([place]) Comment on above: Performed By: #### C BC, MG, ADIFF, BMP, ANEU, GFR, LARON #### [place] [id number] Platelet mean volume (Bld) [Entitic vol] 7.9 fL Normal 6.6-10.5 On license of [facility] ([place]) Comment on above: Performed By: #### C BC, MG, ADIFF, BMP, ANEU, GFR, LARON #### [place] [id number] RBC 3.18 10 6/mcL Low 4.10-5.30 [facility] ([place]) Comment on above: Performed By: #### C BC, MG, ADIFF, BMP, ANEU, GFR, LARON #### [place] [address] WBC 8.4 10 3/mcL Normal 4.5-10.8 On license of [facility] ([place]) Comment on above: Performed By: #### C BC, MG, ADIFF, BMP, ANEU, GFR, LARON #### [place] [id number] CORTon 02-11-2023 Cortisol Level 17.4 mcg/dL Normal [facility] ([place]) Comment on above: Result Comment: Laron isol AM Reference Range 6.5-26.0 mcg/dL Cortisol PM Reference Range 3.5-15.0 mcg/dL Performed By: #### C BC, MG, ADIFF, BMP, ANEU, GFR, LARON #### [place] [address] LABORATORYOrdered By: SYSTEM SYSTEM on 02-11-2023 Basophils [...] (S/P/Bld) [Vol rate/Area] ml/min/1.73sqm Invalid Interpretation Code Engage Chemistry S Comment on above: Interpretive Data: [...] (S/P/Bld) [Vol rate/Area] ml/min/1.73sqm Invalid Interpretation Code Engage Chemistry S Comment on above: Interpretive Data: [...] 02-11-2023 Magnesium [Mass/Vol] 1.8 mg/dL Normal 1.6-2.4 [facility] ([place]) Comment on above: Performed By: #### C BC, MG, ADIFF, BMP, ANEU, GFR, LARON #### [address] [address] .Auto Diffon 02-09-2023 Basophil, Absolute 0.0 10 3/mcL Normal 0.0-0.3 [facility] ([place]) Comment on above: Performed By: #### B MP, CBC, ANEU, GFR, ADIFF #### [address] [address] Basophils/100 WBC (Bld) 0.5 % Normal 0.0-2.5 A [facility] ([place]) Comment on above: Performed By: #### B MP, CBC, ANEU, GFR, ADIFF #### [address] [address] Eosinophil, Absolute 0.4 10 3/mcL Normal 0.0-0.7 [facility] ([place]) Comment on above: Performed By: #### B MP, CBC, ANEU, GFR, ADIFF #### [address] [address] Eosinophils/100 WBC (Bld) 3.7 % Normal 0.0-6.0 [facility] ([place]) Comment on above: Performed By: #### B MP, CBC, ANEU, GFR, ADIFF #### [address] [address] Lymphocyte, Absolute 1.2 10 3/mcL Normal 0.9-4.3 [facility] ([place]) Comment on above: Performed By: #### B MP, CBC, ANEU, GFR, ADIFF #### [address] [address] Lymphocytes/100 WBC (Bld) 13.0 % Low 20.0-40.0 [facility] ([place]) Comment on above: Performed By: #### B MP, CBC, ANEU, GFR, ADIFF #### [address] [address] Monocyte, Absolute 1.0 10 3/mcL Normal 0.1-1.4 [facility] ([place]) Comment on above: Performed By: #### B MP, CBC, ANEU, GFR, ADIFF #### [address] [address] Monocytes/100 WBC (Bld) 10.7 % Normal 2.0-13.0 A [facility] ([place]) Comment on above: Performed By: #### B MP, CBC, ANEU, GFR, ADIFF #### [address] [address] Neutrophils/100 WBC (Bld) 72.1 % Normal 50.0-75.0 [facility] ([place]) Comment on above: Performed By: #### B MP, CBC, ANEU, GFR, ADIFF #### [address] [address] .GFRon 02-09-2023 GFR >60 Normal [facility] ([place]) Comment on above: Result Comment: GFR Population [...] MG, ADIFF, BMP, ANEU, GFR, LARON #### [address] [address] GFR Non- >60 Normal [facility] ([place]) Comment on above: Result Comment: GFR Population [...] MG, ADIFF, BMP, ANEU, GFR, LARON #### [place] [address] .NEUABSon 02-09-2023 Neutrophil, Absolute 6.9 10 3/mcL Normal 2.3-8.1 [facility] ([place]) Comment on above: Performed By: #### C BC, MG, ADIFF, BMP, ANEU, GFR, LARON #### [place] [address] BMPon 02-09-2023 BUN/Creatinine Ratio 27.1 ratio High 10.0-22.0 [facility] ([place]) Comment on above: Order Comment: Routi ne for 0501 the morning of patient admission. Performed By: #### C BC, MG, ADIFF, BMP, ANEU, GFR, LARON #### [place] [address] Calcium [Mass/Vol] 9.0 mg/dL Normal 8.7-10.4 [facility] ([place]) Comment on above: Order Comment: Routi ne for 0501 the morning of patient admission. Performed By: #### C BC, MG, ADIFF, BMP, ANEU, GFR, LARON #### [address] [address] Chloride [Moles/Vol] 109 mmol/L Normal 98-110 [facility] ([place]) Comment on above: Order Comment: Routi ne for 0501 the morning of patient admission. Performed By: #### C BC, MG, ADIFF, BMP, ANEU, GFR, LARON #### [place] [phone] CO2 [Moles/Vol] 27 mmol/L Normal 22-32 [facility] ([place]) Comment on above: Order Comment: Routi ne for 0501 the morning of patient admission. Performed By: #### C BC, MG, ADIFF, BMP, ANEU, GFR, LARON #### [place] [phone] Creatinine [Mass/Vol] 0.70 mg/dL Normal 0.50-1.20 [facility] ([place]) Comment on above: Order Comment: Routi ne for 0501 the morning of patient admission. Performed By: #### C BC, MG, ADIFF, BMP, ANEU, GFR, LARON #### [place] [phone] Electrolyte Balance 5.0 mEq/L Normal 4.0-15.0 [facility] ([place]) Comment on above: Order Comment: Routi ne for 0501 the morning of patient admission. Performed By: #### C BC, MG, ADIFF, BMP, ANEU, GFR, LARON #### [place] [phone] Glucose [Mass/Vol] 102 mg/dL Normal 82-115 [facility] ([place]) Comment on above: Order Comment: Routi ne for 0501 the morning of patient admission. Performed By: #### C BC, MG, ADIFF, BMP, ANEU, GFR, LARON #### [place] [phone] Potassium [Moles/Vol] 3.4 mmol/L Low 3.5-5.0 [facility] ([place]) Comment on above: Order Comment: Routi ne for 0501 the morning of patient admission. Performed By: #### C BC, MG, ADIFF, BMP, ANEU, GFR, LARON #### [place] [phone] Sodium [Moles/Vol] 141 mmol/L Normal 136-145 [facility] ([place]) Comment on above: Order Comment: Routi ne for 0501 the morning of patient admission. Performed By: #### C BC, MG, ADIFF, BMP, ANEU, GFR, LARON #### [place] [phone] Urea nitrogen [Mass/Vol] 19.0 mg/dL Normal 8.0-22.0 [facility] ([place]) Comment on above: Order Comment: Routi ne for 0501 the morning of patient admission. Performed By: #### C BC, MG, ADIFF, BMP, ANEU, GFR, LARON #### [place] [address] CBCon 02-09-2023 Erythrocyte distribution width (RBC) [Ratio] 14.0 % Normal 11.5-15.5 [facility] ([place]) Comment on above: Order Comment: Routi ne for 0501 the morning of patient admission. Performed By: #### B MP, CBC, ANEU, GFR, ADIFF #### [place] [address] Hematocrit (Bld) [Volume fraction] 28.5 % Low 34.0-46.0 [facility] ([place]) Comment on above: Order Comment: Routi ne for 0501 the morning of patient admission. Performed By: #### B MP, CBC, ANEU, GFR, ADIFF #### [place] [phone] Hgb 9.6 G/dL Low 12.0-16.0 [facility] ([place]) Comment on above: Order Comment: Routi ne for 0501 the morning of patient admission. Performed By: #### B MP, CBC, ANEU, GFR, ADIFF #### [place] [phone] MCH (RBC) [Entitic mass] 30.4 pg Normal 27.0-33.0 [facility] ([place]) Comment on above: Order Comment: Routi ne for 0501 the morning of patient admission. Performed By: #### B MP, CBC, ANEU, GFR, ADIFF #### [place] [address] MCHC 33.8 G/dL Normal 32.0-36.0 [facility] ([place]) Comment on above: Order Comment: Routi ne for 0501 the morning of patient admission. Performed By: #### B MP, CBC, ANEU, GFR, ADIFF #### [place] [address] MCV (RBC) [Entitic vol] 89.7 fL Normal 80.0-99.0 A [facility] ([place]) Comment on above: Order Comment: Routi ne for 0501 the morning of patient admission. Performed By: #### B MP, CBC, ANEU, GFR, ADIFF #### [place] [address] Platelet 186 10 3/mcL Normal 150-450 On license of [facility] ([place]) Comment on above: Order Comment: Routi ne for 0501 the morning of patient admission. Performed By: #### B MP, CBC, ANEU, GFR, ADIFF #### [place] [address] Platelet mean volume (Bld) [Entitic vol] 8.0 fL Normal 6.6-10.5 On license of [facility] ([place]) Comment on above: Order Comment: Routi ne for 0501 the morning of patient admission. Performed By: #### B MP, CBC, ANEU, GFR, ADIFF #### [place] [address] RBC 3.18 10 6/mcL Low 4.10-5.30 [facility] ([place]) Comment on above: Order Comment: Routi ne for 0501 the morning of patient admission. Performed By: #### B MP, CBC, ANEU, GFR, ADIFF #### [place] [address] WBC 9.5 10 3/mcL Normal 4.5-10.8 On license of [facility] ([place]) Comment on above: Order Comment: Routi ne for 0501 the morning of patient admission. Performed By: #### B MP, CBC, ANEU, GFR, ADIFF #### [place] [address] CT THORAX W/ CONTRASTon CT THORAX W/ [...] 02/08/2023 10:26:14 PM Ordering Provider: LIZ SY [facility] ([place]) LABORATORYOrdered By: Keeley Hester on 02-09-2023 Appearance [...] SS UAon 02-09-2023 Color (U) Yellow Normal [facility] ([place]) Comment on above: Performed By: #### C BC, MG, ADIFF, BMP, ANEU, GFR, LARON #### [address] [address] Glucose (U) [Mass/Vol] Negative Normal Negative [facility] ([place]) Comment on above: Performed By: #### C BC, MG, ADIFF, BMP, ANEU, GFR, LARON #### [address] [address] Ketones Ql (U) 15 mg/dL Abnormal Neg-Trace Counts include 234 beds at the [facility] ([place]) Comment on above: Performed By: #### C BC, MG, ADIFF, BMP, ANEU, GFR, LARON #### [address] [address] UA Appear Clear Normal Clear [facility] ([place]) Comment on above: Performed By: #### C BC, MG, ADIFF, BMP, ANEU, GFR, LARON #### [address] [address] UA Blood Trace Normal Neg-Trace [facility] ([place]) Comment on above: Performed By: #### C BC, MG, ADIFF, BMP, ANEU, GFR, LARON #### [place] [address] UA Leuk Est Moderate Abnormal Negative [facility] ([place]) Comment on above: Performed By: #### C BC, MG, ADIFF, BMP, ANEU, GFR, LARON #### [place] [address] UA Nitrite Negative Normal Negative [facility] ([place]) Comment on above: Performed By: #### C BC, MG, ADIFF, BMP, ANEU, GFR, LARON #### [place] [address] UA pH 7.0 Normal 5.0 - 8.0 [facility] ([place]) Comment on above: Performed By: #### C BC, MG, ADIFF, BMP, ANEU, GFR, LARON #### [place] [address] UA Protein Negative Normal Negative [facility] ([place]) Comment on above: Performed By: #### C BC, MG, ADIFF, BMP, ANEU, GFR, LARON #### [place] [phone] UA Spec Grav 1.025 Normal 1.006-1.029 [facility] ([place]) Comment on above: Performed By: #### C BC, MG, ADIFF, BMP, ANEU, GFR, LARON #### [place] [address] UA Specimen Type Not Given Normal [facility] ([place]) Comment on above: Performed By: #### C BC, MG, ADIFF, BMP, ANEU, GFR, LARON #### [address] [address] UA Urobilinogen 1.0 E.U./dL Normal 0.2-1.0 [facility] ([place]) Comment on above: Performed By: #### C BC, MG, ADIFF, BMP, ANEU, GFR, LARON #### [place] [address] Urobilinogen (U) [Mass/Vol] Negative Normal Neg-Trace [facility] ([place]) Comment on above: Performed By: #### C BC, MG, ADIFF, BMP, ANEU, GFR, LARON #### [address] [address] UAMICon 02-09-2023 UA Bacteria 1+ /hpf Abnormal Negative [facility] ([place]) Comment on above: Performed By: #### C BC, MG, ADIFF, BMP, ANEU, GFR, LARON #### [place] [address] UA RBC 10-20 Abnormal 0-2 [facility] ([place]) Comment on above: Performed By: #### C BC, MG, ADIFF, BMP, ANEU, GFR, LARON #### [address] [address] UA Squam Epithelial 5-10 Normal 0-20 [facility] ([place]) Comment on above: Performed By: #### C BC, MG, ADIFF, BMP, ANEU, GFR, LARON #### [place] [address] UA WBC 3-5 Normal 0-5 [facility] ([place]) Comment on above: Performed By: #### C BC, MG, ADIFF, BMP, ANEU, GFR, LARON #### [address] [address] Paula 02-08-2023 Ethanol Level <10.0 Normal [facility] ([place]) Comment on above: Performed By: #### A #### [facility] [address] [place] [address] C-REACTIVE PROTEINon 024 CRP 3.46 mg/dl High 0.00 - 0.90 [place] Comment on above: Performed By: #### 2 08719 #### [place],[address] [place] [address] CBC + DIFFon 02-08-2023 Baso # 0.00 x10EE3/UL Normal 0.00 - 0.10 [facility] Comment on above: Performed By: #### 2 42499 #### [place],[address] [place], [place] [id number] Basophils/100 WBC (Bld) 0.3 % Normal 0.0 - 2.0 [facility] Comment on above: Performed By: #### 2 67560 #### [place],[address] [place] [address] CBC + DIFF Normal [place] Comment on above: Result Comment: CBC- COMPLETE BLOOD COUNT Performed By: #### 2 73285 #### [place],[address] [place] [address] EO # 0.20 x10EE3/UL Normal 0.00 - 0.50 [facility] Comment on above: Performed By: #### 2 82231 #### [place],[address] [place] [address] Eosinophils/100 WBC (Bld) 2.5 % Normal 0.0 - 7.0 [place] Comment on above: Performed By: #### 2 17712 #### [place],[address] [place] [address] Erythrocyte distribution width (RBC) [Ratio] 14.3 % Normal 12.0 - 15.6 [place] Comment on above: Performed By: #### 2 38540 #### [place],[address],[place] [address] Hematocrit (Bld) [Volume fraction] 31.3 % Low 34.0 - 46.0 [place] Comment on above: Performed By: #### 2 22816 #### [place],[address] [place] [address] Hemoglobin (Bld) [Mass/Vol] 10.1 g/dL Low 12.0 - 16.0 [place] Comment on above: Performed By: #### 2 43498 #### [place],[address] [place], [place] [id number] Lymph # 0.80 x10EE3/UL Normal 0.80 - 2.80 [facility] Comment on above: Performed By: #### 2 22333 #### [place],[address] [place] [address] Lymphocytes/100 WBC (Bld) 9.1 % Low 20.0 - 45.0 [place] Comment on above: Performed By: #### 2 21025 #### [place],[address] [place] [address] MANUAL DIFF N/A Normal [place] Comment on above: Performed By: #### 2 20960 #### [place],[address] [place] [address] MCH (RBC) [Entitic mass] 30 pg Normal 27 - 33 [place] Comment on above: Performed By: #### 2 48453 #### [place],[address] [place] [address] MCHC 32 X10 3 Normal 32 - 36 [place] Comment on above: Performed By: #### 2 05145 #### [place],[address] [place] [address] MCV (RBC) [Entitic vol] 91 fL Normal 80 - 99 [facility] Comment on above: Performed By: #### 2 16059 #### [place],[address],[place] [address] In[place] # 0.80 x10EE3/UL Normal 0.20 - 1.00 [facility] Comment on above: Performed By: #### 2 37756 #### [place],[address] [place] [address] MONOS % 8.9 % Normal 0.0 - 10.0 [place] Comment on above: Performed By: #### 2 98602 #### [place],[address] [place] [address] Morphology Andre (Bld) [Interp] N/A Normal [place] Comment on above: Result Comment: {CD] Performed By: #### 2 22304 #### [place],[address] [place] [address] Neut # 7.40 x10EE3/UL High 1.50 - 7.10 [facility] Comment on above: Performed By: #### 2 44538 #### [place],[address] [place] [address] Neutrophils/100 WBC (Bld) 79.2 % High 46.0 - 76.0 [place] Comment on above: Performed By: #### 2 85262 #### [place],[address] [place] [address] PLATELET 224 x10EE3/UL Normal 150 - 450 [facility] Comment on above: Performed By: #### 2 92705 #### [place],[address] [place] [address] Platelet mean volume (Bld) [Entitic vol] 8.2 fL Normal 6.6 - 10.5 [facility] Comment on above: Result Comment: AUTO MATED DIFFERENTIAL Performed By: #### 2 85174 #### [place],[address] [place] [address] RBC 3.43 x 10EE6/UL Low 4.10 - 5.30 [facility] Comment on above: Performed By: #### 2 28254 #### [place],[address] [place] [address] WBC 9.3 x 10EE3/UL Normal 4.5 - 10.8 [facility] Comment on above: Performed By: #### 2 42048 #### [place],[address] [place] [address] CMP with eGFRon 02-08-2023 AGE 77 years Normal [place] Comment on above: Performed By: #### 2 43401 #### [place],[address] [place] [address] Albumin [Mass/Vol] 3.3 g/dL Low 3.4 - 5.[address] [facility] Comment on above: Performed By: #### 2 51492 #### [place],[address] [place] [address] Albumin/Globulin [Mass ratio] 0.8 {ratio} Low 0.9 - 1.6 [place] Comment on above: Performed By: #### 2 04508 #### [place],[address] [place] [address] ALK PHOS 85 U/L Normal 46 - 116 [place] Comment on above: Performed By: #### 2 31534 #### [place],[address] [place] [address] ALT [Catalytic activity/Vol] 8 U/L Low 14 - 59 [place] Comment on above: Performed By: #### 2 86412 #### [place],[address] [place] [address] Anion gap [Moles/Vol] 13 mmol/L Normal 10 - 20 [facility] Comment on above: Performed By: #### 2 77915 #### [place],[address] [place] [address] AST [Catalytic activity/Vol] 26 U/L Normal 13 - 39 [place] Comment on above: Performed By: #### 2 32394 #### [place],[address] [place] [address] B/C RATIO 26 ratio Normal 0 - 30 [place] Comment on above: Performed By: #### 2 40601 #### [place],[address] [place] [address] Bilirubin [Mass/Vol] 1.0 mg/dL Normal 0.2 - 1.0 [place] Comment on above: Performed By: #### 2 04323 #### [place],[address] [place] [address] Calcium [Mass/Vol] 9.5 mg/dL Normal 8.5 - 10.[address] [facility] Comment on above: Performed By: #### 2 78783 #### [place],[address] [place] [address] Chloride [Moles/Vol] 103 mmol/L Normal 98 - 107 [place] Comment on above: Performed By: #### 2 37760 #### [place],[address] [place] [address] CMP with eGFR Normal [facility] Comment on above: Result Comment: COMP REHENSIVE METABOLIC PANEL Performed By: #### 2 01216 #### [place],[address] [place] [address] CO2 [Moles/Vol] 28.9 mmol/L Normal 21.0 - 32.[address] [facility] Comment on above: Performed By: #### 2 54915 #### [place],[address] [place] [address] Creatinine [Mass/Vol] 1.02 mg/dL Normal 0.55 - 1.02 [facility] Comment on above: Performed By: #### 2 61798 #### [place],[address] [place] [address] eGFR 53 ML/MINUTE Low 60 - 999 [facility] Comment on above: Performed By: #### 2 69898 #### [place],[address] [place] [address] GFR/1.73 sq M.predicted among non-blacks MDRD (S/P/Bld) [Vol rate/Area] mL/min/{1.73_m2} Normal 60 - 999 [place] Comment on above: Result Comment: ACCO RDING TO THE NATIONAL KIDNEY DISEASE EDUCATION PROGRAM(NKDE), A NORMAL eGFR IS A VALUE GREATER THAN OR EQUAL TO 60 ML/MIN/1.73 SQ METERS. CHRONIC KIDNEY DISEASE: <60mL/MIN/1.73 SQ METERS KIDNEY FAILURE: <15mL/MIN/1.73 SQ METERS THIS TEST SHOULD ONLY BE USED FOR PATIENTS 18 YEARS OF AGE AND OLDER. Performed By: #### 2 54839 #### [place],[address] [place] [address] Globulin (S) [Mass/Vol] 4.1 g/dL High 1.5 - 3.8 [facility] Comment on above: Performed By: #### 2 16612 #### [place],[address] [place] [address] Glucose [Mass/Vol] 95 mg/dL Normal 74 - [address] [facility] Comment on above: Performed By: #### 2 31536 #### [place],[address] [place] [address] Potassium [Moles/Vol] 3.8 mmol/L Normal 3.5 - 5.1 [facility] Comment on above: Performed By: #### 2 29255 #### [place],[address] [place] [address] Protein [Mass/Vol] 7.4 g/dL Normal 6.4 - 8.[address] [facility] Comment on above: Performed By: #### 2 51978 #### [place],[address] [place] [address] Sodium [Moles/Vol] 141 mmol/L Normal 136 - [address] [facility] Comment on above: Performed By: #### 2 81808 #### [place],[address] [place] [address] Urea nitrogen [Mass/Vol] 27 mg/dL High 7 - 18 [place] Comment on above: Performed By: #### 2 49660 #### [place],[address] [place] [address] CORONAVIRUS (SARS) ANTIGEN T ESTon 02-08-2023 EXTERNAL QC DONE? YES Normal [facility] Comment on above: Performed By: #### 2 25262 ####[place],[address] [place] [address] INTERNAL CONTROL PASS Normal [facility] Comment on above: Performed By: #### 2 25836 ####[place],[address] [place] [address] SARS ANTIGEN Negative Normal NORMAL: NEGATIVE [place] Comment on above: Performed By: #### 2 20558 ####[place],[address] [place] [address] SEND TO ? NO Normal [place] Comment on above: Result Comment: SARS -CoV-2 THIS TEST IS BEING USED UNDER THE FDA EUA PROCEDURE. THIS ASSAY HAS BEEN VALIDATED AT [facility] FOR USE WITH NASAL AND NASOPHARYNGEAL SWAB [...] PUBLIC HEALTH AUTHORITIES. Performed By: #### 2 34675 ####David [facility],[address] [place] [address] CT BRAIN W/O CONTRASTon CT BRAIN W/O CONTRAST [place] [address] Patient: ROSARIO MCNALLY Phone#: : [phone] Age: 77 Gender: F Pt. Type: ER Account: [id number] Location: [facility] Ordering: GREY CONNOR Exam Date: 02/08/2023/13:38 Family Phys: CHICO COLLIER Charge Code: 134880 Physician: [place] Order #: [id number] Dose#: [id number] mGy PROCEDURE: CT BRAIN WITHOUT CONTRAST COMPARISON: [facility], CT, BRAIN W/O CON, 06/10/2022, 21:04. INDICATIONS: [...] significant mucosal thickening or fluid. ORBITS: Left [place] ocular lenses absent. OTHER: Atherosclerotic calcifications of the intracranial arteries. CONCLUSION: 1. Right occipital subarachnoid hemorrhage. This finding was communicated by telephone to Dr. Grey Connor at the dictation time shown below. 2. Global atrophy and atherosclerosis Dictated by: Adilene Bui MD on 02/08/2023 at 13:50 Approved by: Adilene Bui MD on 02/08/2023 at 13:[address] [place] [address] SPINE CERVICAL W/O CONTRA STon 02-08-2023 [...] 02/08/2023 6:55:16 PM Ordering Provider: LIZ SY [facility] ([place]) LABORATORYOrdered By: SYSTEM SYSTEM on 02-08-2023 Ethanol [Mass/Vol] mg/dL Invalid Interpretation Code AH ADM SS LIPASEon 02-08-2023 Lipase [Catalytic activity/Vol] 20.0 U/L Normal 15.0 - 78.0 [place] Comment on above: Result Comment: *PLE ASE NOTE THAT RANGES FOR LIPASE HAVE CHANGED OF 02/04/23 DUE TO AN ASSAY UPDATE BY THE CLAIMS SUPPORT SPECIALIST.THE NEW ASSAY RANGE IS 6-250 U/L, WITH A REFERENCE RANGE OF 16-77 U/L. Performed By: #### 2 29119 #### [place] [id number] TROPONIN I, HIGH SENSITIVITY on 02-08-2023 HS TROPONIN 13.2 pg/mL Normal 0.0 - 51.4 [place] Comment on above: Performed By: #### 2 95730 #### [place],[address] [place] [address]10 TSHon 02-08-2023 TSH Qn 1.80 m[IU]/L Normal 0.35 - 3.74 [facility] Comment on above: Performed By: #### 2 34292 #### [place],[address] [place] [address] URINALYSISon 02-08-2023 Amorphous NONE Normal [place] Comment on above: Performed By: #### 2 29596 ####[place],[address] [place] [address] Bacteria 1+ Normal [place] Comment on above: Performed By: #### 2 97723 ####[place],[address] [place] [address] 18478 Bilirubin Ql (U) Negative Normal NORMAL: NEGATIVE [place] Comment on above: Performed By: #### 2 26945 ####[place],[address] [place] [address]257 Casts NONE Normal [place] Comment on above: Performed By: #### 2 37762 ####[place],[address] [place], [place] [id number] Clarity (U) clear Normal NORMAL: CLEAR [place] Comment on above: Performed By: #### 2 54779 ####[place],[address] [place], [place] [id number] Color (U) keeley Normal NORMAL: YELLOW [place] Comment on above: Performed By: #### 2 94992 ####[place],[address] [place], [place] [phone] Crystals LM Nom (Urine sed) NONE Normal [place] Comment on above: Performed By: #### 2 69188 ####[place],[address] [place], [place] [id number] Epi Cells MODERATE Normal [place] Comment on above: Performed By: #### 2 01343 ####[place],[address] [place] [address] Glucose Ql (U) NORM Normal NORMAL: NORMAL [place] Comment on above: Performed By: #### 2 86914 ####[place],[address] [place] [address]99 Hemoglobin Ql (U) 50 Abnormal NORMAL: NEGATIVE [place] Comment on above: Performed By: #### 2 11876 ####[place],[address] [place] [address] Ketone 5 Abnormal NORMAL: NEGATIVE [place] Comment on above: Performed By: #### 2 05482 ####[place],[address] [place] [address]26 Leukocytes 25 Abnormal NORMAL: NEGATIVE [place] Comment on above: Performed By: #### 2 28444 ####[place],[address] [place] [address] Mucous NONE Normal [place] Comment on above: Performed By: #### 2 17574 ####[place],[address] [place], [place] [id number] Nitrite Ql (U) Negative Normal NORMAL: NEGATIVE [place] Comment on above: Performed By: #### 2 78595 ####[place],[address] [place] [address] pH (U) 6 [pH] Normal NORMAL: 5.0-8.0 [place] Comment on above: Performed By: #### 2 60316 ####[place],[address] [place] [address] Protein Ql (U) 15 Abnormal NORMAL: NEGATIVE [place] Comment on above: Performed By: #### 2 71637 ####[place],[address] [place] [address] Rbc 0-5 Normal 0-3/hpf [place] Comment on above: Performed By: #### 2 90570 ####[place],[address] [place] [address] Sp Stuart 1.015 Normal NORMAL: 1.010-1.030 [place] Comment on above: Performed By: #### 2 93445 ####[place],[address] [place] [address] Specimen Type UNSPECIFIED Normal [facility] Comment on above: Performed By: #### 2 65708 ####[place],[address] [place], [place] [id number] Urinalysis dipstick W Reflex Microscopic panel (U) SEE BELOW Normal [place] Comment on above: Result Comment: MICR OSCOPIC Performed By: #### 2 09408 ####[place],[address] [place] [address] Urobilinog 1 Abnormal NORMAL: NORMAL [place] Comment on above: Performed By: #### 2 51593 ####[place],[address] [place], [place] [id number] Wbc 1-5 Normal 0-5/hpf [place] Comment on above: Performed By: #### 2 84558 ####[place],[address] [place], [place] [id number] Yeast NONE Normal [place] Comment on above: Performed By: #### 2 51646 ####[place],[address] [place] [address] XR CHEST 1 VIEWon 02-08-2023 XR CHEST [...] 02/08/2023 6:53:03 PM Ordering Provider: LIZ SY [facility] ([place]) HAND RT MIN 3 VIEWSon 2022 HAND RT MIN 3 VIEWS [place] [address] Patient: ROSARIO MCNALLY Phone#: : 1945 Age: 77 Gender: F Pt. Type: Out Account: [id number] Location: [facility] Ordering: ERIK CHRISTIE Exam Date: 01/26/2023/15:00 Family Phys: Charge Code: 577881 Physician: [place] Order #: [id number] Dose#: PROCEDURE: X-RAY HAND RT COMPLETE MIN [...] Simon MD on 01/26/2023 at 15:28 Normal [place] CBC (INCLUDES DIFF/PLT)on Basophils (Bld) [#/Vol] 0.027 10*3/uL Normal 0-200 [facility] Comment on above: Performed By: #### 1 0231, 5260, 1030 #### [facility] [place] [address] Industrial Maintenance Mechanic: Brayden England MD Basophils/100 WBC (Bld) 0.4 % Normal [facility] Comment on above: Performed By: #### 1 0231, 3759, 1910 #### [facility] [place] [address] Industrial Maintenance Mechanic: Brayden England MD Eosinophils (Bld) [#/Vol] 0.168 10*3/uL Normal 15-500 [facility] Comment on above: Performed By: #### 1 0231, 4124, 8110 #### [facility] [place] [address] Industrial Maintenance Mechanic: Brayden England MD Eosinophils/100 WBC (Bld) 2.5 % Normal [facility] Comment on above: Performed By: #### 1 0231, 8311, 9510 #### [facility] [address], [address] [place] [address] Industrial Maintenance Mechanic: Brayden England MD Erythrocyte distribution width (RBC) [Ratio] 13.2 % Normal 11.0-15.0 [facility] Comment on above: Performed By: #### 1 0231, 6399, 7600 #### [facility] of [address], [address] [place] [address] Industrial Maintenance Mechanic: Brayden England MD Hematocrit (Bld) [Volume fraction] 36.1 % Normal 35.0-45.0 [facility] Comment on above: Performed By: #### 1 0231, 6399, 7600 #### [facility] of [place] [address] Industrial Maintenance Mechanic: Brayden England MD Hemoglobin (Bld) [Mass/Vol] 11.0 g/dL Low 11.7-15.5 [facility] Comment on above: Performed By: #### 1 0231, 63, 7600 #### [facility] of [address], [address] [place] [address] Industrial Maintenance Mechanic: Brayden England MD Lymphocytes (Bld) [#/Vol] 1.467 10*3/uL Normal 850-3900 [facility] Comment on above: Performed By: #### 1 0231, 6399, 7600 #### [facility] of [place] [address] Industrial Maintenance Mechanic: Brayden England MD Lymphocytes/100 WBC (Bld) 21.9 % Normal [facility] Comment on above: Performed By: #### 1 0231, 6399, 7600 #### [facility] of [place] [address] Industrial Maintenance Mechanic: Brayden England MD MCH (RBC) [Entitic mass] 28.7 pg Normal 27.0-33.0 [facility] Comment on above: Performed By: #### 1 0231, 6399, 7600 #### [facility] of [place] [address] Industrial Maintenance Mechanic: Brayden England MD MCHC (RBC) [Mass/Vol] 30.5 g/dL Low 32.0-36.[address] [facility] Comment on above: Performed By: #### 1 0231, 63, 7600 #### [facility] of [place] [address] Industrial Maintenance Mechanic: Brayden England MD MCV (RBC) [Entitic vol] 94.3 fL Normal 80.0-100.0 [facility] Comment on above: Performed By: #### 1 0231, 63, 7600 #### [facility] of [place] [address] Industrial Maintenance Mechanic: Brayden England MD Monocytes (Bld) [#/Vol] 0.583 10*3/uL Normal 200-950 [facility] Comment on above: Performed By: #### 1 230, 63, 7600 #### [facility] of [place] [address] Industrial Maintenance Mechanic: Brayden England MD Monocytes/100 WBC (Bld) 8.7 % Normal [facility] Comment on above: Performed By: #### 1 023, 63, 7600 #### [facility] of [place] [address] Industrial Maintenance Mechanic: Brayden England MD Neutrophils (Bld) [#/Vol] 4.456 10*3/uL Normal 9703-4471 [facility] Comment on above: Performed By: #### 1 0231, 63, 7600 #### [facility] of [place] [address] Industrial Maintenance Mechanic: Brayden England MD Neutrophils/100 WBC (Bld) 66.5 % Normal [facility] Comment on above: Performed By: #### 1 0231, 6399, 7600 #### [facility] of [place] [address] Industrial Maintenance Mechanic: Brayden England MD Platelet mean volume (Bld) [Entitic vol] 10.7 fL Normal 7.5-12.5 [facility] Comment on above: Performed By: #### 1 0231, 6399, 7600 #### [facility] of [address], [address] [place] [address] Industrial Maintenance Mechanic: Brayden England MD Platelets (Bld) [#/Vol] 252 10*3/uL Normal 140-400 [facility] Comment on above: Performed By: #### 1 0231, 6399, 7600 #### [facility] of [address], [address] [place] [address] Industrial Maintenance Mechanic: Brayden England MD RBC (Bld) [#/Vol] 3.83 10*6/uL Normal 3.80-5.10 [facility] Comment on above: Performed By: #### 1 0231, 63, 7600 #### [facility] of [address], [address] [place] [address] Industrial Maintenance Mechanic: Brayden England MD WBC (Bld) [#/Vol] 6.7 10*3/uL Normal 3.8-10.8 [facility] Comment on above: Performed By: #### 1 0231, 63, 7600 #### [facility] of [place] [address] Industrial Maintenance Mechanic: Brayden England MD [facility] 12-28-2022 Albumin [Mass/Vol] 3.9 g/dL Normal 3.6-5.1 [facility] Comment on above: Performed By: #### 1 0231, 6399, 7600 #### [facility] of [address], [address] [place] [address] Industrial Maintenance Mechanic: Brayden England MD Albumin/Globulin [Mass ratio] 1.3 {ratio} Normal 1.0-2.5 [facility] Comment on above: Performed By: #### 1 0231, 6399, 7600 #### [facility] of [place] [address] Industrial Maintenance Mechanic: Brayden England MD ALP [Catalytic activity/Vol] 87 U/L Normal 37-153 [facility] Comment on above: Performed By: #### 1 0231, 63, 7600 #### [facility] of [place] [address] Industrial Maintenance Mechanic: Brayden England MD ALT [Catalytic activity/Vol] 8 U/L Normal 6-29 [facility] Comment on above: Performed By: #### 1 0231, 63, 7600 #### [facility] of [address], [address] [place] [address] Industrial Maintenance Mechanic: Brayden England MD AST [Catalytic activity/Vol] 18 U/L Normal 10-35 [facility] Comment on above: Performed By: #### 1 230, 83, 7600 #### [facility] of [place] [address] Industrial Maintenance Mechanic: Brayden England MD Bilirubin [Mass/Vol] 0.5 mg/dL Normal 0.2-1.2 [facility] Comment on above: Performed By: #### 1 230, 76, 6100 #### [facility] [place] [address] Industrial Maintenance Mechanic: Brayden England MD BUN/CREATININE RATIO SEE NOTE: Normal 6-22 [facility] Comment on above: Result Comment: Not Reported: BUN and Creatinine are within reference range. Performed By: #### 1 0231, 35, 4200 #### [facility] of [address], [address] [place] [address] Industrial Maintenance Mechanic: Brayden England MD Calcium [Mass/Vol] 9.4 mg/dL Normal 8.6-10.4 [facility] Comment on above: Performed By: #### 1 0231, 63, 7600 #### [facility] of [place] [address] Industrial Maintenance Mechanic: Brayden England MD Chloride [Moles/Vol] 104 mmol/L Normal 98-110 [facility] Comment on above: Performed By: #### 1 230, 63, 7600 #### [facility] of [address], [address] [place] [address] Industrial Maintenance Mechanic: Brayden England MD CO2 [Moles/Vol] 30 mmol/L Normal 20-32 [facility] Comment on above: Performed By: #### 1 0231, 63, 7600 #### [facility] of [address], [address] [place] [address] Industrial Maintenance Mechanic: Brayden England MD Creatinine [Mass/Vol] 0.78 mg/dL Normal 0.60-1.[address] [facility] Comment on above: Performed By: #### 1 0231, 63, 7600 #### [facility] of [address], [address] [place] [address] Industrial Maintenance Mechanic: Brayden England MD GFR/1.73 sq M.predicted among non-blacks MDRD (S/P/Bld) [Vol rate/Area] 79 mL/min/{1.73_m2} Normal > OR = 60 [facility] Comment on above: Performed By: #### 1 023, 63, 7600 #### [facility] [place] [address] Industrial Maintenance Mechanic: Brayden England MD Globulin (S) [Mass/Vol] 3.0 g/dL Normal 1.9-3.7 [facility] Comment on above: Performed By: #### 1 0231, 63, 7600 #### [facility] of [address], [address] [place] [address] Industrial Maintenance Mechanic: Brayden England MD Glucose [Mass/Vol] 88 mg/dL Normal 65-99 [facility] Comment on above: Result Comment: Fasting reference interval Performed By: #### 1 0231, 6399, 7600 #### [facility] of [place] [address] Industrial Maintenance Mechanic: Brayden England MD Potassium [Moles/Vol] 4.5 mmol/L Normal 3.5-5.[address] [facility] Comment on above: Performed By: #### 1 0231, 6399, 7600 #### [facility] of [address], [address] [place] [address] Industrial Maintenance Mechanic: Brayden England MD Protein [Mass/Vol] 6.9 g/dL Normal 6.1-8.1 [facility] Comment on above: Performed By: #### 1 0231, 6399, 7600 #### [facility] of [address], [address] [place] [address] Industrial Maintenance Mechanic: Brayden England MD Sodium [Moles/Vol] 140 mmol/L Normal 135-146 [facility] Comment on above: Performed By: #### 1 0231, 63, 7600 #### [facility] of [place] [address] Industrial Maintenance Mechanic: Brayden England MD Urea nitrogen [Mass/Vol] 19 mg/dL Normal 7-25 [facility] Comment on above: Performed By: #### 1 0231, 63, 7600 #### [facility] of [place] [address] Industrial Maintenance Mechanic: Brayden England MD LIPID PANEL, [facility] 11-2 Cholesterol [Mass/Vol] 155 mg/dL Normal <200 [facility] Comment on above: Performed By: #### 1 0231, 63, 7600 #### [facility] of [place] [address] Industrial Maintenance Mechanic: Brayden England MD Cholesterol in HDL [Mass/Vol] 51 mg/dL Normal > OR = 50 [facility] Comment on above: Performed By: #### 1 0231, 6399, 7600 #### [facility] of [place] [address] Industrial Maintenance Mechanic: Brayden England MD Cholesterol in LDL [Mass/Vol] [...] LDL-C. Bhaskar WEST et al. QUANG. 2013;310(19): 3413-8371 (http://education.[employer]/faq/HVT650) Performed By: #### 1 0231, 4335, 2360 #### [facility] [address], [address] [place] [address] Industrial Maintenance Mechanic: Brayden England MD Cholesterol.total/Antonietta sterol in HDL [Mass ratio] 3.0 {ratio} Normal <5.0 [facility] Comment on above: Performed By: #### 1 0231, 0822, 8320 #### [facility] [place] [address] Industrial Maintenance Mechanic: Brayden England MD NON HDL CHOLESTEROL 104 mg/dL (calc) Normal <130 [facility] Comment on above: Result Comment: For patients with diabetes plus 1 major ASCVD risk factor, treating to a non-HDL-C goal of <100 mg/dL (LDL-C of <70 mg/dL) is considered a therapeutic option. Performed By: #### 1 0231, 8303, 8790 #### [facility] [place] [address] Industrial Maintenance Mechanic: Brayden England MD Triglyceride [Mass/Vol] 91 mg/dL Normal <150 [facility] Comment on above: Performed By: #### 1 0231, 9095, 1330 #### [facility] [place] [address] Industrial Maintenance Mechanic: Brayden England MD No Panel Informationon 12-27 155 mg/dL Normal [employer] [facility] 51 mg/dL Normal [facility] [employer] [facility] 91 mg/dL Normal [facility] [employer] 85 Normal [facility] [employer] 3.0 Normal 1.9 - 3.7 [facility] [employer] 104 Normal [facility] [employer] [facility] [employer] [facility] [employer] 88 mg/dL Normal 65 - 99 mg/dL [facility] [facility] 19 mg/dL Normal 7 - 25 mg/dL [facility] [employer] 0.78 mg/dL Normal 0.60 - 1.00 mg/dL [facility] [employer] 79 Normal [employer] SEE NOTE: Normal 6 - 22 [employer] [facility] [facility] 140 mmol/L Normal 135 - 146 mmol/L [facility] [employer] [facility] 4.5 mmol/L Normal 3.5 - 5.3 mmol/L [facility] [employer] 104 mmol/L Normal 98 - 110 mmol/L [facility] [employer] 30 mmol/L Normal 20 - 32 mmol/L [employer] 9.4 mg/dL Normal 8.6 - 10.4 mg/dL [employer] [facility] [employer] [facility] 6.9 g/dL Normal 6.1 - 8.1 g/dL [facility] [employer] [facility] 3.9 g/dL Normal 3.6 - 5.1 g/dL [employer] [facility] [employer] [facility] 1.3 Normal 1.0 - 2.5 [employer] 0.5 mg/dL Normal 0.2 - 1.2 mg/dL [facility] [facility] 87 U/L Normal 37 - 153 U/L [facility] [employer] 18 U/L Normal 10 - 35 U/L [employer] 8 U/L Normal 6 - 29 U/L [employer] 6.7 Normal 3.8 - 10.8 [facility] [employer] 3.83 {Million/uL} Normal 3.80 - 5.1 0 {Million/uL} [employer] 11.0 g/dL Abnormal 11.7 - 15.5 g/dL [facility] [employer] 36.1 % Normal 35.0 - 45.0 % [facility] [employer] 94.3 fL Normal 80.0 - 100.0 fL [facility] [employer] 28.7 pg Normal 27.0 - 33.0 pg [facility] [employer] 30.5 g/dL Abnormal 32.0 - 36.0 g/dL [facility] [employer] 13.2 % Normal 11.0 - 15.0 % [employer] 252 Normal 140 - 400 [facility] [employer] 10.7 fL Normal 7.5 - 12.5 fL [employer] 4456 {cells/uL} Normal 1500 - 7800 {cells/uL} [employer] 1467 {cells/uL} Normal 850 - 3900 {cells/uL} [employer] 583 {cells/uL} Normal 200 - 950 {cells/uL} [employer] 168 {cells/uL} Normal 15 - 500 {cells/uL} [employer] 27 {cells/uL} Normal 0 - 200 {cells/uL} [employer] [facility] 66.5 % Normal [employer] 21.9 % Normal [employer] [facility] 8.7 % Normal [employer] 2.5 % Normal [employer]. 0.4 % Normal [employer] EMERGENCY REPORTon 3 EMERGENCY REPORT [facility] EMERGENCY ROOM REPORT NAME ACCOUNT SEX AGE ADMIT DISCHARGE PT MED. RECORD# NUMBER DATE DATE TYPE DALI [id number] Lev 76 06/10/22 06/10/22 David Lopez [id number] ROOM: ER DATE OF : 1945 DICTATING [...] Stew So DO 08/07/22 14:39 JOB #: [id number] Transcribed By: jose 08/07/22 15:10 Electronically signed by: MODESTO So DO 08/16/22 21:25 Page 2 of 2 ROSARIO MCNALLY Emergency Room Report Normal [place] CT BRAIN W/O CONTRASTon 05-0 CT BRAIN W/O CONTRAST [place] [address] Patient: ROSARIO MCNALLY. Phone#: : 1945 Age: 76 Gender: F Pt. Type: ER Account: [id number] Location: [facility] Ordering: DR. MARIA DEL CARMEN BLACKBURN Exam Date: 06/10/2022/21:04 Family Phys: CHICO CARRASCOSRINIVAS Charge Code: [id number] Physician: [place] Order #: [id number] Dose#: 57.50 PROCEDURE: CT BRAIN WITHOUT CONTRAST COMPARISON: [facility], CT, BRAIN W/O CON, 04/24/2022, 10:47. INDICATIONS: [...] Simon MD on 06/10/2022 at 22:[address] [place] [address] CERVICAL W/O CONTRASTon 0 06-10-2022 CT CERVICAL W/O CONTRAST [place] [address] Patient: ROSARIO MCNALLY Phone#: : 1945 Age: 76 Gender: F Pt. Type: ER Account: [id number] Location: [facility] Ordering: DR. MARIA DEL CARMEN BLACKBURN Exam Date: 06/10/2022/21:04 Family Phys: CHICO COLLIER Charge Code: [id number] Physician: [place] Order #: [id number] Dose#: 7.20 PROCEDURE: CT CERVICAL WITHOUT CONTRAST COMPARISON: [facility], CT, CERVICAL W/O CON, 04/24/2022, 10:47. INDICATIONS: [...] no evidence of acute fracture or subluxation. [address] [address] Patient: ROSARIO MCNALLY Phone#: : 1945 Age: 76 Gender: F Pt. Type: ER Account: [id number] Location: 052 Ordering: DR. MARIA DEL CARMEN BLACKBURN Exam Date: 06/10/2022/21:04 Family Phys: CHICO COLLIER Charge Code: [id number] Physician: [place] Order #: [id number] Dose#: 7.20 Dictated by: Elisabeth Simon MD on 06/10/2022 at 22:04 Approved by: Elisabeth Simon MD on 06/10/2022 at 22:08 Normal [place] 3D MAMM BILAT SCREENon 05-19 3D MAMM BILAT SCREEN [place] [address] Patient: ROSARIO MCNALLY Phone#: : 1945 Age: 76 Gender: F Pt. Type: Out Account: [id number] Location: 052 Ordering: CHICO COLLIER Exam Date: 05/19/2022/13:21 Family Phys: Charge Code: [id number] Physician: [place] Order #: [id number] Dose#: PROCEDURE: BILATERAL SCREENING BREAST TOMOSYNTHESIS MAMMOGRAM WITH CAD COMPARISON: [facility], BILAT SCREENING, 01/25/2020, 13:03. [facility], 3D BILAT SCREEN, 04/08/2021, 14:42. INDICATIONS: [...] Simon MD on 05/19/2022 at 13:43 Normal [place] CV CAROTID STUDYon CV CAROTID STUDY [place] [address] Patient: ROSARIO MCNALLY Phone#: : 1945 Age: 76 Gender: F Pt. Type: Out Account: [id number] Location: [facility] Ordering: CHICO COLLIER Exam Date: 05/19/2022/12:49 Family Phys: Charge Code: 113093 Physician: [place] Order #: [id number] Dose#: PROCEDURE: CAROTID FLOW STUDY COMPARISON: None. INDICATIONS: Frequent falls TECHNIQUE: Color duplex Doppler ultrasound and pulsed Doppler analysis were performed to evaluate the cervical carotid arteries and vertebral flow. All measurements for carotid artery narrowing or stenosis were obtained using the ipsilateral distal internal carotid artery as the reference value. VISITOR SERVICES REPRESENTATIVE: CAMILLE PT HISTORY: Frequent falls RIGHT IMAGING [...] 76 Gender: F Pt. Type: Out Account: [id number] Location: [facility] Ordering: CHICO COLLIER Exam Date: 05/19/2022/12:49 Family Phys: Charge Code: [id number] Physician: [place] Order #: [id number] Dose#: Mid ICA: 57.39 cm/s Mid ICA [...] cm/s Subclavian Artery: 82.66 cm/s CONCLUSION: 1. Rtcb-fa-hzbnrhzr irregular mixed plaque is present. 2. There is no evidence of hemodynamically significant stenosis. Dictated by: Elisabeth Simon MD on 05/19/2022 at 13:31 Approved by: Elisabeth Simon MD on 05/19/2022 at 13:33 Normal [place] EMERGENCY REPORTon 3 EMERGENCY REPORT [facility] EMERGENCY ROOM REPORT NAME ACCOUNT SEX AGE ADMIT DISCHARGE PT MED. RECORD# NUMBER DATE DATE TYPE DALI [id number] F 76 04/24/22 04/24/22 3 ROSARIO Lopez [id number] ROOM: ER DATE OF : 1945 DICTATING [...] Stew So DO 04/26/22 20:17 JOB #: [id number] Transcribed By: am 04/27/22 08:59 Electronically signed by: MODESTO So DO 05/04/22 08:19 Page 1 of 1 ROSARIO MCNALLY Emergency Room Report Normal [place] EMERGENCY REPORTon 3 EMERGENCY REPORT [facility] EMERGENCY ROOM REPORT NAME ACCOUNT SEX AGE ADMIT DISCHARGE PT MED. RECORD# NUMBER DATE DATE TYPE DALI [id number] Lev 76 04/24/22 04/24/22 3 ROSARIO Lopez [id number] ROOM: ER DATE OF : 1945 DICTATING [...] answering questions appropriately, has normal speech, intact gyuqij-ea-edcn bilaterally. Sensation is intact to bilateral upper [...] Matilde Veronica MD 04/24/22 12:26 JOB #: [id number] Transcribed By: ameena 04/24/22 21:53 Electronically signed by: Dr. Matilde Veronica MD 04/26/22 02:46 Page 2 of 2 ROSARIO MCNALLY Emergency Room Report Normal [place] CHEST 1 VIEWon 04-24-2022 CHEST 1 VIEW [place] [address] Patient: ROSARIO MCNALLY. Phone#: : 1945 Age: 76 Gender: F Pt. Type: ER Account: [id number] Location: [facility] Ordering: DR. MATILDE VERONICA Exam Date: 04/24/2022/11:09 Family Phys: CHICO COLLIER Charge Code: [id number] Physician: [place] Order #: [id number] Dose#: PROCEDURE: X-RAY CHEST 1 VIEW COMPARISON: [facility], XR, CHEST PA/LAT, 02/20/2016, 12:12. INDICATIONS: Trauma. [...] Simon MD on 04/24/2022 at 13:[address] [place] [address] BRAIN W/O CONTRASTon 03-1 CT BRAIN W/O CONTRAST [place] [address] Patient: ROSARIO MCNALLY Phone#: : 1945 Age: 76 Gender: F Pt. Type: ER Account: [id number] Location: 2 Ordering: DR. MATILDE VERONICA Exam Date: 04/24/2022/10:47 Family Phys: CHICO COLLIER Charge Code: [id number] Physician: [place] Order #: [id number] Dose#: PROCEDURE: CT BRAIN WITHOUT CONTRAST COMPARISON: [...] Simon MD on 04/24/2022 at 13:[address] [place] [address] CERVICAL W/O CONTRASTon 0 04-24-2022 CT CERVICAL W/O CONTRAST [address] [address] Patient: ROSARIO MCNALLY Phone#: : 1945 Age: 76 Gender: F Pt. Type: ER Account: [id number] Location: [facility] Ordering: DR. MATILDE VERONICA Exam Date: 04/24/2022/10:47 Family Phys: CHICO COLLIER Charge Code: [id number] Physician: [place] Order #: [id number] Dose#: PROCEDURE: CT CERVICAL WITHOUT CONTRAST COMPARISON: [...] no evidence of acute fracture or subluxation. [address] [address] Patient: ROSARIO MCNALLY Phone#: : 1945 Age: 76 Gender: F Pt. Type: ER Account: [id number] Location: 052 Ordering: DR. MATILDE VERONICA Exam Date: 04/24/2022/10:47 Family Phys: CHICO COLLIER Charge Code: [id number] Physician: [place] Order #: [id number] Dose#: Dictated by: Elisabeth Simon MD on 04/24/2022 at 13:18 Approved by: Elisabeth Simon MD on 04/24/2022 at 13:[address] [place] [address] FACIAL BONES W/O CONTRAST on 04-24-2022 CT FACIAL BONES W/O CONTRAST [place] [address] Patient: ROSARIO MCNALLY Phone#: : 1945 Age: 76 Gender: F Pt. Type: ER Account: [id number] Location: 052 Ordering: DR. MATILDE VERONICA Exam Date: 04/24/2022/10:47 Family Phys: CHICO COLLIER Charge Code: [id number] Physician: [place] Order #: [id number] Dose#: PROCEDURE: CT FACIAL BONES WITHOUT CONTRAST [...] 76 Gender: F Pt. Type: ER Account: [id number] Location: 052 Ordering: DR. MATILDE VERONICA Exam Date: 04/24/2022/10:47 Family Phys: CHICO COLLIER Charge Code: [id number] Physician: [place] Order #: [id number] Dose#: Approved by: Elisabeth Simon MD on 04/24/2022 at 13:18 Normal [place] PELVIS 1 or 2 VIEWSon 2022 PELVIS 1 or 2 VIEWS [place] [address] Patient: ROSARIO MCNALLY Phone#: : 1945 Age: 76 Gender: F Pt. Type: ER Account: [id number] Location: 052 Ordering: DR. MATILDE VERONICA Exam Date: 04/24/2022/11:10 Family Phys: CHICO COLLIER Charge Code: [id number] Physician: [place] Order #: [id number] Dose#: PROCEDURE: X-RAY PELVIS AP COMPARISON: [facility], XR, PELVIS AP, 09/15/2011, 6:52. INDICATIONS: Trauma. [...] Simon MD on 04/24/2022 at 13:32 Normal [place] No Panel Informationon 12-28 140 mg/dL Normal [facility] 53 mg/dL Normal [facility] 82 mg/dL Normal [facility] 71 Normal [facility] 2.6 Normal [facility] 87 Normal [facility] 85 mg/dL Normal 65 - 99 mg/dL [facility] 18 mg/dL Normal 7 - 25 mg/dL [facility].; [facility] 0.71 mg/dL Normal 0.60 - 1.00 mg/dL [facility] 89 Normal [facility] NOT APPLICABLE Normal 6 - 22 [facility], [facility].; [facility] 141 mmol/L Normal 135 - 146 mmol/L [facility] 4.4 mmol/L Normal 3.5 - 5.3 mmol/L [facility] 104 mmol/L Normal 98 - 110 mmol/L [facility] 32 mmol/L Normal 20 - 32 mmol/L [facility] 9.5 mg/dL Normal 8.6 - 10.4 mg/dL [facility] 6.8 g/dL Normal 6.1 - 8.1 g/dL [facility] 4.0 g/dL Normal 3.6 - 5.1 g/dL [facility] 2.8 Normal 1.9 - 3.7 [facility], [facility].; [facility] 1.4 Normal 1.0 - 2.5 [facility].; [facility] 0.6 mg/dL Normal 0.2 - 1.2 mg/dL [facility], Inc.; [facility] 167 U/L Abnormal 37 - 153 U/L [facility], Inc.; [facility], [facility] 14 U/L Normal 10 - 35 U/L [facility], [facility].; [facility] 4 U/L Abnormal 6 - 29 U/L [facility], [facility].; [facility] 7.5 Normal 3.8 - 10.8 [facility], [facility].; [facility] [employer] [employer] 3.51 {Million/uL} Abnormal 3.80 - 5.1 0 {Million/uL} [facility].; [facility] [employer] [employer] 10.4 g/dL Abnormal 11.7 - 15.5 g/dL [facility], [facility].; [facility] [employer] [employer] 32.5 % Abnormal 35.0 - 45.0 % [facility] [employer] [employer] 92.6 fL Normal 80.0 - 100.0 fL [facility], [facility].; [facility] [employer] [employer] 29.6 pg Normal 27.0 - 33.0 pg [facility] [employer] [employer].; [facility] [employer] [employer] 32.0 g/dL Normal 32.0 - 36.0 g/dL [facility], [facility].; [facility] [employer] [employer] 13.1 % Normal 11.0 - 15.0 % [facility] [employer] [employer] [employer] 254 Normal 140 - 400 [facility] [employer] [employer].; [facility] [employer] [employer] 10.9 fL Normal 7.5 - 12.5 fL [facility] [employer] [employer].; [facility] [employer] [employer] 5475 {cells/uL} Normal 1500 - 7800 {cells/uL} [facility] [employer] [employer] [employer] [employer] 1193 {cells/uL} Normal 850 - 3900 {cells/uL} [facility] [employer] 690 {cells/uL} Normal 200 - 950 {cells/uL} [employer], [employer] [employer] 90 {cells/uL} Normal 15 - 500 {cells/uL} [employer] [employer] [employer] 53 {cells/uL} Normal 0 - 200 {cells/uL} [employer] [employer] [employer], [employer] 73 % Normal [facility] [employer], [employer] [employer] 15.9 % Normal [employer].; [employer], [employer] 9.2 % Normal [employer], [employer] 1.2 % Normal [facility] [employer], [employer], [employer] 0.7 % Normal [employer], [employer].; [employer], [employer]. No Panel Informationon 01-05 146 mg/dL Normal [facility] [employer] [employer] [employer] 56 mg/dL Normal [facility] [employer] [employer] [employer], [employer] 67 mg/dL Normal [employer], [employer].; [employer], [employer] 76 Normal [employer], [employer], [employer] 2.6 Normal [employer], [employer].; [employer] 90 Normal [employer], [employer].; [employer], [employer] 92 mg/dL Normal 65 - 99 mg/dL [facility] [employer] [employer] [employer], [employer] 15 mg/dL Normal 7 - 25 mg/dL [facility] [employer], Inc.; [employer], [employer] 0.72 mg/dL Normal 0.60 - 0.93 mg/dL [employer], [employer], [employer] 82 Normal [employer], [employer].; [employer], [employer] 96 Normal [employer], [employer].; [employer], [employer]. NOT APPLICABLE Normal 6 - 22 [facility] [employer], [employer].; [employer], [employer] 138 mmol/L Normal 135 - 146 mmol/L [facility] [employer] [employer].; [employer], [employer] 4.3 mmol/L Normal 3.5 - 5.3 mmol/L [facility], [facility].; [facility] 102 mmol/L Normal 98 - 110 mmol/L [facility], [facility].; [facility] 29 mmol/L Normal 20 - 32 mmol/L [facility], [facility].; [facility] 9.5 mg/dL Normal 8.6 - 10.4 mg/dL [facility], [facility].; [facility] 7.2 g/dL Normal 6.1 - 8.1 g/dL [facility], [facility].; [facility] 3.8 g/dL Normal 3.6 - 5.1 g/dL [facility], [facility].; [facility] 3.4 Normal 1.9 - 3.7 [facility], [facility].; [facility] 1.1 Normal 1.0 - 2.5 [facility], [facility].; [facility] 0.6 mg/dL Normal 0.2 - 1.2 mg/dL [facility], [facility].; [facility], [facility] 80 U/L Normal 37 - 153 U/L [facility], [facility].; [facility], Inc[facility] 15 U/L Normal 10 - 35 U/L [facility], [facility].; [facility], [facility] 7 U/L Normal 6 - 29 U/L [facility], [facility].; [facility] 8.8 Normal 3.8 - 10.8 [facility], [facility].; [facility] 3.91 {Million/uL} Normal 3.80 - 5.1 0 {Million/uL} [facility], [facility].; [facility] [facility] 11.3 g/dL Abnormal 11.7 - 15.5 g/dL [facility], [facility].; [facility] 34.9 % Abnormal 35.0 - 45.0 % [facility], [facility].; [facility] 89.3 fL Normal 80.0 - 100.0 fL [facility], [facility].; [facility] 28.9 pg Normal 27.0 - 33.0 pg [facility], [facility].; [employer], [employer] 32.4 g/dL Normal 32.0 - 36.0 g/dL [employer], [employer].; [employer], [employer] 13.0 % Normal 11.0 - 15.0 % [employer], [employer].; [employer], [employer] 314 Normal 140 - 400 [employer], [employer].; [employer], [employer] 10.5 fL Normal 7.5 - 12.5 fL [employer], [employer].; [employer], [employer] 6160 {cells/uL} Normal 1500 - 7800 {cells/uL} [employer], [employer].; [employer], [employer] 1857 {cells/uL} Normal 850 - 3900 {cells/uL} [employer], [employer].; [employer], [employer] 686 {cells/uL} Normal 200 - 950 {cells/uL} [employer], [employer].; [employer], [employer] 53 {cells/uL} Normal 15 - 500 {cells/uL} [employer], [employer].; [employer], [employer] 44 {cells/uL} Normal 0 - 200 {cells/uL} [employer], [employer].; [employer], [employer] 70 % Normal [employer], [employer].; [employer], [employer] 21.1 % Normal [employer], [employer].; [employer], [employer] 7.8 % Normal [employer], [employer].; [employer], [employer] 0.6 % Normal [employer], [employer].; [employer], [employer] 0.5 % Normal [employer], [employer].; [employer], [employer] 2.63 {mIU/L} Normal 0.40 - 4.50 {mIU/L} [employer] [employer] [employer], [employer] No Panel Informationon 07-28 SEE NOTE Normal [employer], [employer].; [employer], [employer] BIOPSY Normal [employer], [employer].; [employer], [employer]. No Panel Informationon 12-23 168 mg/dL Normal [employer], [employer].; [employer], [employer] 59 mg/dL Normal [employer], [facility].; [facility] 89 mg/dL Normal [facility], [facility].; [facility] 91 Normal [facility], [facility].; [facility] 2.8 Normal 1.9 - 3.7 [facility].; [facility] 109 Normal [facility] [employer] [employer].; [facility] 92 mg/dL Normal 65 - 99 mg/dL [facility], [facility].; [facility] [employer], [employer] 20 mg/dL Normal 7 - 25 mg/dL [facility], [facility].; [facility] [employer], [employer] 0.82 mg/dL Normal 0.60 - 0.93 mg/dL [facility].; [facility] [employer] [employer] 71 Normal [facility] [employer].; [facility] [employer] [employer] 82 Normal [facility] [employer].; [facility] [employer] [employer]. NOT APPLICABLE Normal 6 - 22 [facility], [facility].; [facility] [employer] [employer] 140 mmol/L Normal 135 - 146 mmol/L [facility], [facility].; [facility] [employer] [employer] 4.2 mmol/L Normal 3.5 - 5.3 mmol/L [facility], [facility].; [facility] [employer] 102 mmol/L Normal 98 - 110 mmol/L [facility], [facility].; [facility] [employer], [employer] 31 mmol/L Normal 20 - 32 mmol/L [facility].; [facility] [employer], [employer] 10.0 mg/dL Normal 8.6 - 10.4 mg/dL [facility], [facility].; [facility] 7.2 g/dL Normal 6.1 - 8.1 g/dL [facility].; [facility] 4.4 g/dL Normal 3.6 - 5.1 g/dL [facility].; [facility] 1.6 Normal 1.0 - 2.5 [facility] [employer], [employer].; [facility] 0.8 mg/dL Normal 0.2 - 1.2 mg/dL [facility] [employer], [employer].; [facility] [employer] [employer] 80 U/L Normal 37 - 153 U/L [facility], Inc.; [facility], [employer] 17 U/L Normal 10 - 35 U/L [facility], Inc.; [employer], [employer] 6 U/L Normal 6 - 29 U/L [facility] [employer], [employer].; [facility] [employer] [employer] 9.5 Normal 3.8 - 10.8 [facility] [employer], [employer].; [facility] [employer], [employer] 4.08 {Million/uL} Normal 3.80 - 5.1 0 {Million/uL} [facility] [employer] [employer].; [facility] [employer] [employer] 12.4 g/dL Normal 11.7 - 15.5 g/dL [facility] [employer].; [facility] [employer] [employer] 37.1 % Normal 35.0 - 45.0 % [facility] [employer].; [facility] [employer] [employer] 90.9 fL Normal 80.0 - 100.0 fL [facility] [employer].; [facility] [employer] [employer] 30.4 pg Normal 27.0 - 33.0 pg [facility] [employer], [employer].; [employer] [employer] 33.4 g/dL Normal 32.0 - 36.0 g/dL [facility] [employer].; [facility] [employer] [employer] 12.7 % Normal 11.0 - 15.0 % [facility] [employer] [employer].; [employer] [employer] 288 Normal 140 - 400 [facility] [employer].; [facility] [employer] [employer] 10.7 fL Normal 7.5 - 12.5 fL [facility] [employer], [employer].; [employer] [employer] 6698 {cells/uL} Normal 1500 - 7800 {cells/uL} [facility] [employer] [employer] [employer] 1900 {cells/uL} Normal 850 - 3900 {cells/uL} [facility] [employer] [employer] [employer] 684 {cells/uL} Normal 200 - 950 {cells/uL} [employer] [employer] [employer] [employer] 152 {cells/uL} Normal 15 - 500 {cells/uL} [employer] [employer].; [employer] [employer] 67 {cells/uL} Normal 0 - 200 {cells/uL} [facility], [facility].; [facility] [employer], [facility]. 70.5 % Normal [facility].; [facility] [employer] [employer] 20.0 % Normal [facility].; [employer], [facility]. 7.2 % Normal [facility], [facility].; [facility] [employer] [employer] 1.6 % Normal [facility].; [facility] [employer], [employer]. 0.7 % Normal [facility], [facility].; [facility], [facility]. Laboratory - Chemistry and C hemistry - challengeon 12-22-2018 Albumin [Mass/Vol] 4.4 g/dL Normal 3.6 - 5.1 g/dL [facility].; [facility], [facility]. Albumin/Globulin [Mass ratio] 1.6 {ratio} Normal 1.0 - 2.5 [facility].; [facility] [employer], [facility]. ALP [Catalytic activity/Vol] 79 U/L Normal 33 - 130 U/L [facility].; [facility] [employer], [employer]. ALT [Catalytic activity/Vol] 4 U/L Abnormal 6 - 29 U/L [facility].; [facility] [employer], [employer]. AST [Catalytic activity/Vol] 15 U/L Normal 10 - 35 U/L [facility].; [facility] [employer], [employer]. Bilirubin [Mass/Vol] 0.8 mg/dL Normal 0.2 - 1 .2 mg/dL [facility], [facility].; [facility] [employer], [facility]. Calcium [Mass/Vol] 9.8 mg/dL Normal 8.6 - 10. 4 mg/dL [facility].; [facility] [employer], [employer]. Chloride [Moles/Vol] 103 mmol/L Normal 98 - 11 0 mmol/L [facility].; [facility] [employer], [employer]. Cholesterol [Mass/Vol] 160 mg/dL Normal [facility].; [facility], [facility]. Cholesterol in HDL [Mass/Vol] 62 mg/dL Normal [facility], [facility].; [facility] [employer], [facility]. Cholesterol in LDL [Mass/Vol] 82 mg/dL Normal 0 - 100 mg/dL [facility].; [facility], [facility]. Cholesterol non HDL [Mass/Vol] 98 mg/dL Normal [facility], [facility].; [facility], [facility]. Cholesterol.total/Antonietat sterol in HDL [Mass ratio] 2.6 {ratio} Normal [facility].; [facility], [facility]. CO2 [Moles/Vol] 32 mmol/L Normal 20 - 32 mmol/L [facility], [facility].; [facility], [facility]. Creatinine [Mass/Vol] 0.74 mg/dL Normal 0.60 - 0.93 mg/dL [facility], [facility].; [facility], [facility]. GFR/1.73 sq M.predicted among blacks MDRD (S/P/Bld) [Vol rate/Area] 94 {ML/MIN/1.73M2} Normal [facility], [facility].; [facility], [facility]. GFR/1.73 sq M.predicted MDRD (S/P/Bld) [Vol rate/Area] 81 {ML/MIN/1.73M2} Normal [facility], [facility].; [facility], [facility]. Globulin (S) [Mass/Vol] 2.8 g/dL Normal 1.9 - 3.7 g/dL [facility], [facility].; [facility], [facility]. Glucose [Mass/Vol] 94 mg/dL Normal 65 - 99 mg/dL [facility], [facility].; [facility], [facility]. Potassium [Moles/Vol] 4.0 mmol/L Normal 3.5 - 5.3 mmol/L [facility], [facility].; [facility], [facility]. Protein [Mass/Vol] 7.2 g/dL Normal 6.1 - 8.1 g/dL [facility], [facility].; [facility], [facility]. Sodium [Moles/Vol] 141 mmol/L Normal 135 - 146 mmol/L [facility], [facility].; [facility], [facility]. Triglyceride [Mass/Vol] 77 mg/dL Normal [facility], [facility].; [facility], [facility]. Urea nitrogen [Mass/Vol] 15 mg/dL Normal 7 - 25 mg/dL [facility], [facility].; [facility], [facility]. Urea nitrogen/Creatinine [Mass ratio] 19.7 mg/mg Normal 6 - 22 [facility].; [facility] [employer] Laboratory - Hematology and Cell countson 12-22-2018 Basophils (Bld) [#/Vol] 60 {Cells}/uL Normal 0 - 200 {Cells}/uL [facility].; [facility] [employer], [employer]. Basophils/100 WBC (Bld) 0.7 % Normal 0 - 1 % [facility].; [facility], [facility] Eosinophils (Bld) [#/Vol] 140 {Cells}/uL Normal 15 - 500 {Cells}/uL [facility].; [facility] [employer], [employer] Eosinophils/100 WBC (Bld) 1.7 % Normal 0 - 4 % [facility].; [facility] [employer], [employer]. Erythrocyte distribution width (RBC) [Ratio] 12.9 % Normal 11.0 - 15.0 % [facility], [facility].; [facility] [employer], [employer]. Hematocrit (Bld) [Volume fraction] 37.8 % Normal 35.0 - 45.0 % [facility].; [facility], [employer]. Hemoglobin (Bld) [Mass/Vol] 12.3 g/dL Normal 11.7 - 15.5 g/dL [facility].; [facility] [employer], [employer]. Lymphocytes (Bld) [#/Vol] 2040 {Cells}/uL Normal 850 - 3900 {Cells}/uL [facility] [employer] [facility].; [facility] [employer], [employer]. Lymphocytes/100 WBC (Bld) 25.0 % Normal 12 - 47 % [facility] [employer]; [employer], [employer]. MCH (RBC) [Entitic mass] 30.1 pg Normal 27.0 - 33.0 PG [facility] [employer] [facility].; [employer], [employer]. MCHC (RBC) [Mass/Vol] 32.5 g/dL Normal 32.0 - 36.0 g/dL [facility], [facility].; [facility] [employer] MCV (RBC) [Entitic vol] 92.6 fL Normal 80.0 - 100.0 fL [facility] [employer], [employer].; [employer], [employer]. Monocytes (Bld) [#/Vol] 630 {Cells}/uL Normal 20 0 - 950 {Cells}/uL [facility].; [place] [employer] [facility]. Monocytes/100 WBC (Bld) 7.7 % Normal 4 - 12 % [facility].; [facility], [facility]. Neutrophils (Bld) [#/Vol] 5260 {Cells}/uL Normal 1500 - 7800 {Cells}/uL [facility], [facility].; [facility] [employer], [facility]. Neutrophils/100 WBC (Bld) 64.9 % Normal 40 - 75 % [facility].; [facility] [employer], [facility]. Platelet mean volume (Bld) [Entitic vol] 10.7 fL Normal 7.5 - 12.5 fL [facility], [facility].; [facility] [employer], [facility]. Platelets (Bld) [#/Vol] 264 10*3/uL Normal 140 - 400 10*3/uL [facility], [facility].; [facility] [employer], [employer]. RBC (Bld) [#/Vol] 4.08 10*6/uL Normal 3.80 - 5.1 0 10*6/uL [facility].; [facility] [employer], [employer]. WBC (Bld) [#/Vol] 8.2 10*3/uL Normal 3.8 - 10.8 10*3/uL [facility] [employer]; [place] [employer], [employer]. Laboratory - Chemistry and C hemistry - challengeon 12-14-2017 Calcium [Mass/Vol] 10.0 mg/dL Normal 8.6 - 10. 4 mg/dL [facility], [facility].; [facility] [employer] Chloride [Moles/Vol] 104 mmol/L Normal 98 - 11 0 mmol/L [facility], [facility].; [facility] [employer] Cholesterol [Mass/Vol] 151 mg/dL Normal [facility].; [facility] [employer], [facility]. Cholesterol in HDL [Mass/Vol] 62 mg/dL Normal [facility], [facility].; [facility] [employer] Cholesterol in LDL [Mass/Vol] 75 mg/dL Normal 0 - 100 mg/dL [facility], [facility].; [facility] [employer], [employer]. Cholesterol non HDL [Mass/Vol] 89 mg/dL Normal [facility].; [facility] [employer], [facility]. Cholesterol.total/Antonietta sterol in HDL [Mass ratio] 2.4 {ratio} Normal [facility].; [facility], [facility] CO2 [Moles/Vol] 30 mmol/L Normal 20 - 32 mmol/L [facility].; [facility], [facility]. Creatinine [Mass/Vol] 0.75 mg/dL Normal 0.60 - 0.93 mg/dL [facility].; [facility], [facility]. GFR/1.73 sq M.predicted among blacks MDRD (S/P/Bld) [Vol rate/Area] 93 {ML/MIN/1.73M2} Normal [facility].; [facility], [facility]. GFR/1.73 sq M.predicted MDRD (S/P/Bld) [Vol rate/Area] 80 {ML/MIN/1.73M2} Normal [facility], [facility].; [facility], [facility]. Glucose [Mass/Vol] 92 mg/dL Normal 65 - 99 mg/dL [facility].; [facility], [facility]. Potassium [Moles/Vol] 4.3 mmol/L Normal 3.5 - 5.3 mmol/L [facility].; [facility], [facility]. Sodium [Moles/Vol] 141 mmol/L Normal 135 - 146 mmol/L [facility], [facility].; [facility], [facility]. Triglyceride [Mass/Vol] 62 mg/dL Normal [facility].; [facility], [facility]. TSH Qn 2.12 m[IU]/L Normal 0.40 - 4.50 {mIU/L} [facility].; [facility], [facility]. Urea nitrogen [Mass/Vol] 16 mg/dL Normal 7 - 25 mg/dL [facility].; [place] [employer], [facility]. Urea nitrogen/Creatinine [Mass ratio] 21.9 mg/mg Normal 6 - 22 [facility].; [place] [employer], [facility]. Laboratory - Hematology and Cell countson 12-14-2017 Basophils (Bld) [#/Vol] 40 {Cells}/uL Normal 0 - 200 {Cells}/uL [facility] [place] [employer], [facility]. Basophils/100 WBC (Bld) 1 % Normal 0 - 1 % [facility].; [facility], [facility]. Eosinophils (Bld) [#/Vol] 210 {Cells}/uL Normal 15 - 500 {Cells}/uL [facility], [facility].; [place] [employer], [facility]. Eosinophils/100 WBC (Bld) 3 % Normal 0 - 4 % [facility].; [place], [facility]. Erythrocyte distribution width (RBC) [Ratio] 14.3 % Normal 11.0 - 15.0 % [facility].; [place] [employer], [facility]. Hematocrit (Bld) [Volume fraction] 36.0 % Normal 35.0 - 45.0 % [facility], [facility].; [facility], [facility]. Hemoglobin (Bld) [Mass/Vol] 11.9 g/dL Normal 11.7 - 15.5 g/dL [facility].; [facility], [facility]. Lymphocytes (Bld) [#/Vol] 1890 {Cells}/uL Normal 850 - 3900 {Cells}/uL [facility].; [employer], [employer]. Lymphocytes/100 WBC (Bld) 27 % Normal 12 - 47 % [facility].; [place] [employer], [facility]. MCH (RBC) [Entitic mass] 30.2 pg Normal 27.0 - 33.0 PG [place] [employer], [facility].; [employer], [facility]. MCHC (RBC) [Mass/Vol] 32.9 g/dL Normal 32.0 - 36.0 g/dL [facility].; [employer], [employer]. MCV (RBC) [Entitic vol] 91.6 fL Normal 80.0 - 100.0 fL [facility], [facility].; [employer], [facility]. Monocytes (Bld) [#/Vol] 610 {Cells}/uL Normal 20 0 - 950 {Cells}/uL [place] [employer] [facility].; [employer] Monocytes/100 WBC (Bld) 9 % Normal 4 - 12 % [facility]People[facility].; [place] [employer], [facility]. Neutrophils (Bld) [#/Vol] 4250 {Cells}/uL Normal 1500 - 7800 {Cells}/uL [facility].; [facility] [employer] [facility] Neutrophils/100 WBC (Bld) 61 % Normal 40 - 75 % [facility].; [facility], [facility] Platelet mean volume (Bld) [Entitic vol] 8.9 fL Normal 7.5 - 12.5 fL [facility].; [facility], [facility] Platelets (Bld) [#/Vol] 241 10*3/uL Normal 140 - 400 10*3/uL [facility].; [facility]. RBC (Bld) [#/Vol] 3.93 10*6/uL Normal 3.80 - 5.1 0 10*6/uL [facility].; [facility], [facility]. WBC (Bld) [#/Vol] 7.0 10*3/uL Normal 3.8 - 10.8 10*3/uL [facility].; [employer], [facility]. Laboratory - Cytologyon 08-08 Microscopic observation Cyto stain Nom (Cvx) Normal [facility].; [place], [facility] Laboratory - Chemistry and C hemistry - challengeon 12-22-2016 Hemoglobin.gastrointest inal Ql (Stl) Negative Normal [facility].; [employer], [facility]. Laboratory - Chemistry and C hemistry - challengeon 12-13-2016 Calcium [Mass/Vol] 9.7 mg/dL Normal 8.6 - 10. 4 mg/dL [facility], [facility].; [employer], [facility]. Chloride [Moles/Vol] 103 mmol/L Normal 98 - 11 0 mmol/L [facility].; [employer], [facility]. Cholesterol [Mass/Vol] 172 mg/dL Normal [facility].; [facility] [employer], [facility]. Cholesterol in HDL [Mass/Vol] 58 mg/dL Normal [facility] [employer], [facility].; [employer], [facility]. Cholesterol in LDL [Mass/Vol] 95 mg/dL Normal 0 - 100 mg/dL [facility].; [employer], [facility]. Cholesterol non HDL [Mass/Vol] 113 mg/dL Normal [facility].; [facility]. Cholesterol.total/Antonietta sterol in HDL [Mass ratio] 3.0 {ratio} Normal [facility].; [facility], [facility]. CO2 [Moles/Vol] 33 mmol/L Abnormal 20 - 31 mmol/L [facility].; [facility], [facility] Creatinine [Mass/Vol] 0.75 mg/dL Normal 0.60 - 0.93 mg/dL [facility].; [facility], [facility]. GFR/1.73 sq M.predicted among blacks MDRD (S/P/Bld) [Vol rate/Area] 94 {ML/MIN/1.73M2} Normal [facility].; [facility], [facility]. GFR/1.73 sq M.predicted MDRD (S/P/Bld) [Vol rate/Area] 81 {ML/MIN/1.73M2} Normal [facility].; [facility], [facility]. Glucose [Mass/Vol] 95 mg/dL Normal 65 - 99 mg/dL [facility].; [facility], [facility]. Potassium [Moles/Vol] 4.3 mmol/L Normal 3.5 - 5.3 mmol/L [facility].; [facility], [facility]. Sodium [Moles/Vol] 142 mmol/L Normal 135 - 146 mmol/L [facility], [facility].; [facility], [facility]. Triglyceride [Mass/Vol] 93 mg/dL Normal [facility].; [facility], [facility]. TSH Qn 3.16 m[IU]/L Normal 0.40 - 4.50 {mIU/L} [facility].; [facility], [facility]. Urea nitrogen [Mass/Vol] 12 mg/dL Normal 7 - 25 mg/dL [facility].; [facility], [facility]. Urea nitrogen/Creatinine [Mass ratio] 16.1 mg/mg Normal 6 - 22 [facility].; [employer], [facility]. Laboratory - Hematology and Cell countson 12-13-2016 Basophils (Bld) [#/Vol] 10 {Cells}/uL Normal 0 - 200 {Cells}/uL [facility].; [place] [employer] Basophils/100 WBC (Bld) 0 % Normal 0 - 1 % [facility]People[facility].; [facility], [facility]. Eosinophils (Bld) [#/Vol] 210 {Cells}/uL Normal 15 - 500 {Cells}/uL [facility].; [place] [employer], [employer]. Eosinophils/100 WBC (Bld) 3 % Normal 0 - 4 % [facility].; [place] [employer] [facility]. Erythrocyte distribution width (RBC) [Ratio] 13.4 % Normal 11.0 - 15.0 % [facility].; [place] [employer], [employer]. Hematocrit (Bld) [Volume fraction] 38.0 % Normal 35.0 - 45.0 % [facility].; [employer], [employer]. Hemoglobin (Bld) [Mass/Vol] 12.2 g/dL Normal 11.7 - 15.5 g/dL [facility].; [employer], [facility]. Lymphocytes (Bld) [#/Vol] 1830 {Cells}/uL Normal 850 - 3900 {Cells}/uL [facility].; [employer], [employer]. Lymphocytes/100 WBC (Bld) 27 % Normal 12 - 47 % [place] [employer] [facility].; [place], [facility]. MCH (RBC) [Entitic mass] 29.5 pg Normal 27.0 - 33.0 PG [place] [employer] [facility].; [employer], [facility]. MCHC (RBC) [Mass/Vol] 32.3 g/dL Normal 32.0 - 36.0 g/dL [facility].; [employer], [facility]. MCV (RBC) [Entitic vol] 91.3 fL Normal 80.0 - 100.0 fL [place] [employer]; [place] [employer], [employer]. Monocytes (Bld) [#/Vol] 310 {Cells}/uL Normal 20 0 - 950 {Cells}/uL [place] [employer]; [employer] Monocytes/100 WBC (Bld) 5 % Normal 4 - 12 % [facility].; [place] [employer], [facility]. Neutrophils (Bld) [#/Vol] 4310 {Cells}/uL Normal 1500 - 7800 {Cells}/uL [facility].; [employer], [facility]. Neutrophils/100 WBC (Bld) 65 % Normal 40 - 75 % [facility], [facility].; [employer] Platelet mean volume (Bld) [Entitic vol] 8.8 fL Normal 7.5 - 12.5 fL [facility], [facility].; [employer], [facility]. Platelets (Bld) [#/Vol] 246 10*3/uL Normal 140 - 400 10*3/uL [facility], [facility].; [employer], [facility]. RBC (Bld) [#/Vol] 4.16 10*6/uL Normal 3.80 - 5.1 0 10*6/uL [facility], [facility].; [place] [employer] WBC (Bld) [#/Vol] 6.7 10*3/uL Normal 3.8 - 10.8 10*3/uL [facility], [facility].; [employer], [facility]. Laboratory - Chemistry and C hemistry - challengeon 12-22-2015 Hemoglobin.gastrointest inal Ql (Stl) Negative Normal [facility].; [employer], [facility]. Laboratory - Chemistry and C hemistry - challengeon 12-03-2015 Calcium [Mass/Vol] 9.9 mg/dL Normal 8.6 - 10. 4 mg/dL [facility], [facility].; [employer], [facility]. Chloride [Moles/Vol] 104 mmol/L Normal 98 - 11 0 mmol/L [facility], [facility].; [employer], [facility]. Cholesterol [Mass/Vol] 156 mg/dL Normal 125 - 200 mg/dL [facility], [facility].; [employer], [facility]. Cholesterol in HDL [Mass/Vol] 50 mg/dL Normal [facility], [facility].; [facility], [facility]. Cholesterol in LDL [Mass/Vol] 88 mg/dL Normal [facility], [facility].; [place] [employer] Cholesterol non HDL [Mass/Vol] 106 mg/dL Normal [facility], [facility].; [employer], [facility]. Cholesterol.total/Antonietta sterol in HDL [Mass ratio] 3.1 {ratio} Normal [facility], [facility].; [facility], [facility] CO2 [Moles/Vol] 30 mmol/L Normal 20 - 31 mmol/L [facility].; [facility], [facility]. Creatinine [Mass/Vol] 0.77 mg/dL Normal 0.50 - 0.99 mg/dL [facility], [facility].; [facility], [facility]. GFR/1.73 sq M.predicted among blacks MDRD (S/P/Bld) [Vol rate/Area] 92 {ML/MIN/1.73M2} Normal [facility], [facility].; [facility], [facility]. GFR/1.73 sq M.predicted MDRD (S/P/Bld) [Vol rate/Area] 79 {ML/MIN/1.73M2} Normal [facility], [facility].; [facility], [facility]. Glucose [Mass/Vol] 95 mg/dL Normal 65 - 99 mg/dL [facility], [facility].; [employer], [facility]. Potassium [Moles/Vol] 3.9 mmol/L Normal 3.5 - 5.3 mmol/L [facility].; [employer], [facility]. Sodium [Moles/Vol] 141 mmol/L Normal 135 - 146 mmol/L [facility], [facility].; [employer], [facility]. Triglyceride [Mass/Vol] 92 mg/dL Normal [facility].; [facility], [facility] Urea nitrogen [Mass/Vol] 12 mg/dL Normal 7 - 25 mg/dL [facility].; [employer], [facility]. Urea nitrogen/Creatinine [Mass ratio] 16.1 mg/mg Normal 6 - 22 [facility].; [employer], [facility]. Laboratory - Hematology and Cell countson 12-03-2015 Basophils (Bld) [#/Vol] 40 {Cells}/uL Normal 0 - 200 {Cells}/uL [facility].; [place] [employer] Basophils/100 WBC (Bld) 1 % Normal 0 - 1 % [facility].; [place] [employer], [facility] Eosinophils (Bld) [#/Vol] 240 {Cells}/uL Normal 15 - 500 {Cells}/uL [facility] [employer] [facility].; [employer] [facility]. Eosinophils/100 WBC (Bld) 4 % Normal 0 - 4 % [facility].; [place], [facility]. Erythrocyte distribution width (RBC) [Ratio] 14.0 % Normal 11.0 - 15.0 % [facility], [facility].; [place], [employer]. Hematocrit (Bld) [Volume fraction] 36.0 % Normal 35.0 - 45.0 % [facility], [facility].; [employer], [facility]. Hemoglobin (Bld) [Mass/Vol] 11.9 g/dL Normal 11.7 - 15.5 g/dL [facility] [employer] [facility].; [place], [facility]. Lymphocytes (Bld) [#/Vol] 2020 {Cells}/uL Normal 850 - 3900 {Cells}/uL [facility] [employer], [facility].; [place] [employer], [employer]. Lymphocytes/100 WBC (Bld) 36 % Normal 12 - 47 % [place] [employer] [facility].; [place], [facility]. MCH (RBC) [Entitic mass] 29.2 pg Normal 27.0 - 33.0 PG [place] [employer] [facility].; [employer], [employer]. MCHC (RBC) [Mass/Vol] 33.1 g/dL Normal 32.0 - 36.0 g/dL [place] [employer], [facility].; [employer] MCV (RBC) [Entitic vol] 88.2 fL Normal 80.0 - 100.0 fL [place] [employer] [facility].; [employer] Monocytes (Bld) [#/Vol] 360 {Cells}/uL Normal 20 0 - 950 {Cells}/uL [place] [employer] [facility].; [employer] Monocytes/100 WBC (Bld) 6 % Normal 4 - 12 % [facility].; [place] [employer], [facility]. Neutrophils (Bld) [#/Vol] 3010 {Cells}/uL Normal 1500 - 7800 {Cells}/uL [place] [employer], [employer].; [employer] Neutrophils/100 WBC (Bld) 53 % Normal 40 - 75 % [place] [employer]; [employer], [facility]. Platelet mean volume (Bld) [Entitic vol] 9.2 fL Normal 7.5 - 11.5 fL [facility].; [facility], [facility]. Platelets (Bld) [#/Vol] 239 10*3/uL Normal 140 - 400 10*3/uL [facility].; [place] [employer], [facility]. RBC (Bld) [#/Vol] 4.09 10*6/uL Normal 3.80 - 5.1 0 10*6/uL [facility].; [facility], [facility]. WBC (Bld) [#/Vol] 5.7 10*3/uL Normal 3.8 - 10.8 10*3/uL [place] [employer], [employer] [place], [facility]. Laboratory - Chemistry and C hemistry - challengeon 11-28-2014 Hemoglobin.gastrointest inal Ql (Stl) Negative Normal [facility].; [place] [employer], [facility]. Laboratory - Chemistry and C hemistry - challengeon 11-21-2014 Albumin [Mass/Vol] 4.4 g/dL Normal 3.6 - 5.1 g/dL [facility].; [place] [employer], [facility]. Albumin/Globulin [Mass ratio] 1.3 {ratio} Normal 1.0 - 2.5 [facility].; [facility], [facility]. ALP [Catalytic activity/Vol] 77 U/L Normal 33 - 130 U/L [facility].; [place] [employer], [facility]. ALT [Catalytic activity/Vol] 10 U/L Normal 6 - 29 U/L [facility].; [place], [facility]. AST [Catalytic activity/Vol] 16 U/L Normal 10 - 35 U/L [facility], [facility].; [employer], [facility]. Bilirubin [Mass/Vol] 0.9 mg/dL Normal 0.2 - 1 .2 mg/dL [facility].; [place], [facility]. Calcium [Mass/Vol] 10.4 mg/dL Normal 8.6 - 10. 4 mg/dL [facility], [facility].; [employer], [facility]. Chloride [Moles/Vol] 103 mmol/L Normal 98 - 11 0 mmol/L [facility].; [facility], [facility]. Cholesterol [Mass/Vol] 173 mg/dL Normal 125 - 200 mg/dL [facility].; [facility], [facility]. Cholesterol in HDL [Mass/Vol] 54 mg/dL Normal [facility].; [facility], [facility]. Cholesterol in LDL [Mass/Vol] 99 mg/dL Normal [facility].; [facility], [facility]. Cholesterol non HDL [Mass/Vol] 120 mg/dL Normal [facility].; [facility], [facility]. Cholesterol.total/Antonietta sterol in HDL [Mass ratio] 3.2 {ratio} Normal [facility].; [facility], [facility]. CO2 [Moles/Vol] 28 mmol/L Normal 19 - 30 mmol/L [facility], [facility].; [facility], [facility]. Creatinine [Mass/Vol] 0.81 mg/dL Normal 0.50 - 0.99 mg/dL [facility], [facility].; [facility], [facility]. GFR/1.73 sq M.predicted among blacks MDRD (S/P/Bld) [Vol rate/Area] 87 {ML/MIN/1.73M2} Normal [facility], [facility].; [facility], [facility] [facility] GFR/1.73 sq M.predicted MDRD (S/P/Bld) [Vol rate/Area] 75 {ML/MIN/1.73M2} Normal [facility], [facility].; [facility], [facility]. Globulin (S) [Mass/Vol] 3.4 g/dL Normal 1.9 - 3.7 g/dL [facility], [facility].; [facility], [facility]. Glucose [Mass/Vol] 94 mg/dL Normal 65 - 99 mg/dL [facility], [facility].; [place], [facility]. Potassium [Moles/Vol] 4.3 mmol/L Normal 3.5 - 5.3 mmol/L [facility], [facility].; [place], [facility]. Protein [Mass/Vol] 7.8 g/dL Normal 6.1 - 8.1 g/dL [facility].; [facility], [facility]. Sodium [Moles/Vol] 141 mmol/L Normal 135 - 146 mmol/L [facility].; [employer]. Triglyceride [Mass/Vol] 102 mg/dL Normal [facility].; [place] [employer], [employer]. TSH Qn 3.01 m[IU]/L Normal 0.40 - 4.50 {mIU/L} [place] [employer] [facility].; [employer], [employer]. Urea nitrogen [Mass/Vol] 13 mg/dL Normal 7 - 25 mg/dL [place] [employer] [facility].; [employer], [employer]. Urea nitrogen/Creatinine [Mass ratio] 15.8 mg/mg Normal 6 - 22 [place] [employer]; [employer], [employer]. Laboratory - Hematology and Cell countson 11-21-2014 Basophils (Bld) [#/Vol] 60 {Cells}/uL Normal 0 - 200 {Cells}/uL [place] [employer]; [employer], [employer]. Basophils/100 WBC (Bld) 1 % Normal 0 - 1 % H [facility].; [employer]. Eosinophils (Bld) [#/Vol] 250 {Cells}/uL Normal 15 - 500 {Cells}/uL [employer].; [employer]. Eosinophils/100 WBC (Bld) 5 % Abnormal 0 - 4 % [place] [employer]; [employer], [employer]. Erythrocyte distribution width (RBC) [Ratio] 13.7 % Normal 11.0 - 15.0 % [employer].; [employer], [employer]. Hematocrit (Bld) [Volume fraction] 38.5 % Normal 35.0 - 45.0 % [place] [employer]; [employer], [employer]. Hemoglobin (Bld) [Mass/Vol] 12.8 g/dL Normal 11.7 - 15.5 g/dL [employer].; [employer], [employer]. Lymphocytes (Bld) [#/Vol] 2050 {Cells}/uL Normal 850 - 3900 {Cells}/uL [employer].; [employer], [employer]. Lymphocytes/100 WBC (Bld) 38 % Normal 12 - 47 % [employer].; [employer]. MCH (RBC) [Entitic mass] 29.4 pg Normal 27.0 - 33.0 PG [facility].; [place] [employer], [facility]. MCHC (RBC) [Mass/Vol] 33.2 g/dL Normal 32.0 - 36.0 g/dL [facility].; [place] [employer], [employer]. MCV (RBC) [Entitic vol] 88.4 fL Normal 80.0 - 100.0 fL [facility].; [facility], [facility]. Monocytes (Bld) [#/Vol] 310 {Cells}/uL Normal 20 0 - 950 {Cells}/uL [facility].; [facility], [facility]. Monocytes/100 WBC (Bld) 6 % Normal 4 - 12 % H [facility].; [facility], [facility]. Neutrophils (Bld) [#/Vol] 2770 {Cells}/uL Normal 1500 - 7800 {Cells}/uL [facility].; [place] [employer], [employer]. Neutrophils/100 WBC (Bld) 51 % Normal 40 - 75 % [facility].; [place] [employer] [facility]. Platelet mean volume (Bld) [Entitic vol] 9.0 fL Normal 7.5 - 11.5 fL [facility].; [place] [employer], [facility]. Platelets (Bld) [#/Vol] 237 10*3/uL Normal 140 - 400 10*3/uL [facility].; [place] [employer], [employer]. RBC (Bld) [#/Vol] 4.35 10*6/uL Normal 3.80 - 5.1 0 10*6/uL [facility].; [place] [employer], [facility]. WBC (Bld) [#/Vol] 5.4 10*3/uL Normal 3.8 - 10.8 10*3/uL [place] [employer]; [place] [employer], [employer]. Laboratory - Chemistry and C hemistry - challengeon 11-22-2013 Bilirubin Ql (U) Negative Normal [facility].; [place] [employer] Hemoglobin.gastrointest inal Ql (Stl) Negative Normal [facility] [employer] [facility].; [employer]. Ketones Ql (U) Negative Normal [facility].; [employer]. pH (U) 6.5 [pH] Normal [place] [employer]; [employer]. Specific gravity (U) [Rel density] <=1.005 Normal [place] [employer]; [employer]. Urobilinogen Qn (U) 0.2 mg/dL Normal [facility].; [employer]. Laboratory - Hematology and Cell countson 11-22-2013 Hemoglobin Ql (U) small Abnormal [place] [employer]; [employer]. Laboratory - Specimen inform ationon 11-22-2013 Appearance (U) Clear Normal [facility] [employer].; [employer]. Color (U) yellow Normal [place] [employer]; [employer]. Laboratory - Urinalysison Glucose Test strip (U) [Mass/Vol] Negative Normal [place] [employer]; [employer]. Leukocyte esterase Test strip Ql (U) moderate Abnormal [place] [employer]; [employer]. Nitrite Ql (U) Negative Normal [facility] [employer].; [employer]. Protein Ql (U) Negative Normal [facility] [employer].; [employer]. Laboratory - Chemistry and C hemistry - challengeon 11-14-2013 Albumin [Mass/Vol] 4.2 g/dL Normal 3.6 - 5.1 g/dL [place] [employer]; [employer]. Albumin/Globulin [Mass ratio] 1.5 {ratio} Normal 1.0 - 2.5 [place] [employer]; [employer]. ALP [Catalytic activity/Vol] 77 U/L Normal 33 - 130 U/L [place] [employer]; [employer]. ALT [Catalytic activity/Vol] 9 U/L Normal 6 - 29 U/L [place] [employer]; [employer]. AST [Catalytic activity/Vol] 16 U/L Normal 10 - 35 U/L [place] [employer]; [employer], [facility]. Bilirubin [Mass/Vol] 0.7 mg/dL Normal 0.2 - 1 .2 mg/dL [facility].; [facility], [facility]. Calcium [Mass/Vol] 9.7 mg/dL Normal 8.6 - 10. 4 mg/dL [facility], [facility].; [facility], [facility]. Chloride [Moles/Vol] 105 mmol/L Normal 98 - 11 0 mmol/L [facility].; [facility], [facility]. Cholesterol [Mass/Vol] 163 mg/dL Normal 125 - 200 mg/dL [facility], [facility].; [place], [facility]. Cholesterol in HDL [Mass/Vol] 47 mg/dL Normal [facility].; [facility], [facility]. Cholesterol in LDL [Mass/Vol] 94 mg/dL Normal [facility], [facility].; [place] [employer], [facility]. Cholesterol non HDL [Mass/Vol] 116 mg/dL Normal [facility].; [place], [facility]. Cholesterol.total/Antonietta sterol in HDL [Mass ratio] 3.5 {ratio} Normal [facility].; [place] [employer], [employer]. CO2 [Moles/Vol] 29 mmol/L Normal 19 - 30 mmol/L [facility].; [place], [facility]. Creatinine [Mass/Vol] 0.79 mg/dL Normal 0.50 - 0.99 mg/dL [facility], [facility].; [facility], [facility]. GFR/1.73 sq M.predicted among blacks MDRD (S/P/Bld) [Vol rate/Area] 90 {ML/MIN/1.73M2} Normal [facility].; [place], [facility]. GFR/1.73 sq M.predicted MDRD (S/P/Bld) [Vol rate/Area] 78 {ML/MIN/1.73M2} Normal [facility], [facility].; [place] [employer] Globulin (S) [Mass/Vol] 2.8 g/dL Normal 1.9 - 3.7 g/dL [facility].; [place] [employer] Glucose [Mass/Vol] 95 mg/dL Normal 65 - 99 mg/dL [facility].; [facility], [facility]. Potassium [Moles/Vol] 4.1 mmol/L Normal 3.5 - 5.3 mmol/L [facility].; [facility], [facility]. Protein [Mass/Vol] 7.0 g/dL Normal 6.1 - 8.1 g/dL [facility], [facility].; [facility], [facility]. Sodium [Moles/Vol] 141 mmol/L Normal 135 - 146 mmol/L [facility].; [facility], [facility]. Triglyceride [Mass/Vol] 111 mg/dL Normal H [facility]People[facility].; [facility], [facility]. Urea nitrogen [Mass/Vol] 9 mg/dL Normal 7 - 25 mg/dL [facility].; [place] [employer], [facility]. Urea nitrogen/Creatinine [Mass ratio] 11.4 mg/mg Normal 6 - 22 [facility].; [place] [employer], [facility]. Laboratory - Hematology and Cell countson 11-14-2013 Basophils (Bld) [#/Vol] 40 {Cells}/uL Normal 0 - 200 {Cells}/uL [facility].; [place] [employer], [facility]. Basophils/100 WBC (Bld) 1 % Normal [facility].; [facility], [facility]. Eosinophils (Bld) [#/Vol] 420 {Cells}/uL Normal 15 - 500 {Cells}/uL [facility].; [place] [employer], [facility]. Eosinophils/100 WBC (Bld) 7 % Normal [facility].; [place] [employer], [facility]. Erythrocyte distribution width (RBC) [Ratio] 14.1 % Normal 11.0 - 15.0 % [facility].; [employer], [employer]. Hematocrit (Bld) [Volume fraction] 36.8 % Normal 35.0 - 45.0 % [facility], [facility].; [place] [employer] Hemoglobin (Bld) [Mass/Vol] 12.2 g/dL Normal 11.7 - 15.5 g/dL [facility], [facility].; [place] [employer], [facility]. Lymphocytes (Bld) [#/Vol] 2370 {Cells}/uL Normal 850 - 3900 {Cells}/uL [facility].; [place] [employer] Lymphocytes/100 WBC (Bld) 39 % Normal [facility].; [place] [employer], [facility]. MCH (RBC) [Entitic mass] 29.6 pg Normal 27.0 - 33.0 PG [facility].; [place] [employer], [facility]. MCHC (RBC) [Mass/Vol] 33.1 g/dL Normal 32.0 - 36.0 g/dL [facility].; [place] [employer], [employer]. MCV (RBC) [Entitic vol] 89.5 fL Normal 80.0 - 100.0 fL [facility].; [facility], [facility]. Monocytes (Bld) [#/Vol] 340 {Cells}/uL Normal 20 0 - 950 {Cells}/uL [facility].; [place] [employer], [employer]. Monocytes/100 WBC (Bld) 6 % Normal [facility].; [place] [employer] [facility]. Neutrophils (Bld) [#/Vol] 2880 {Cells}/uL Normal 1500 - 7800 {Cells}/uL [facility].; [place] [employer], [employer]. Neutrophils/100 WBC (Bld) 48 % Normal [facility].; [place] [employer], [facility]. Platelets (Bld) [#/Vol] 242 10*3/uL Normal 140 - 400 10*3/uL [facility] [employer] [facility].; [place] [employer], [facility]. RBC (Bld) [#/Vol] 4.11 10*6/uL Normal 3.80 - 5.1 0 10*6/uL [facility] [employer] [facility].; [place] [employer], [facility]. WBC (Bld) [#/Vol] 6.1 10*3/uL Normal 3.8 - 10.8 10*3/uL [place] [employer], [employer].; [place] [employer], [facility]. Laboratory - Chemistry and C hemistry - challengeon 11-02-2012 Hemoglobin.gastrointest inal Ql (Stl) Negative Normal [place] [employer] [facility].; [place] [employer], [employer]. Laboratory - Chemistry and C hemistry - challengeon 10-23-2012 Calcium [Mass/Vol] 9.9 mg/dL Normal 8.6 - 10. 4 mg/dL [facility], [facility].; [facility], [facility]. Chloride [Moles/Vol] 102 mmol/L Normal 98 - 11 0 mmol/L [facility], [facility].; [place] [employer] Cholesterol [Mass/Vol] 165 mg/dL Normal 125 - 200 mg/dL [facility], [facility].; [facility], [facility]. Cholesterol in HDL [Mass/Vol] 54 mg/dL Normal [facility], [facility].; [place] [employer] Cholesterol in LDL [Mass/Vol] 92 mg/dL Normal [facility], [facility].; [place] [employer], [employer]. Cholesterol non HDL [Mass/Vol] 111 mg/dL Normal [facility], [facility].; [facility], [facility]. Cholesterol.total/Antonietta sterol in HDL [Mass ratio] 3.1 {ratio} Normal [facility], [facility].; [place], [employer]. CO2 [Moles/Vol] 28 mmol/L Normal 19 - 30 mmol/L [facility], [facility].; [place] [employer] Creatinine [Mass/Vol] 0.71 mg/dL Normal 0.50 - 0.99 mg/dL [facility], [facility].; [place] [employer] GFR/1.73 sq M.predicted among blacks MDRD (S/P/Bld) [Vol rate/Area] 104 {ML/MIN/1.73M2} Normal [facility], [facility].; [facility], [facility]. GFR/1.73 sq M.predicted MDRD (S/P/Bld) [Vol rate/Area] 89 {ML/MIN/1.73M2} Normal [place], [facility].; [place] [employer] Glucose [Mass/Vol] 83 mg/dL Normal 65 - 99 mg/dL [facility], [facility].; [place] [employer] Potassium [Moles/Vol] 4.2 mmol/L Normal 3.5 - 5.3 mmol/L [facility], [facility].; [place] [employer] Sodium [Moles/Vol] 141 mmol/L Normal 135 - 146 mmol/L [facility], [facility].; [facility], [facility]. Triglyceride [Mass/Vol] 94 mg/dL Normal H [facility].; [place] [facility]People[facility]. TSH Qn 4.13 m[IU]/L Normal 0.40 - 4.50 {mIU/L} [facility].; [place] [employer] Urea nitrogen [Mass/Vol] 10 mg/dL Normal 7 - 25 mg/dL [facility].; [place] [employer], [employer] Urea nitrogen/Creatinine [Mass ratio] 13.7 mg/mg Normal 6 - 22 [facility] [employer]. Laboratory - Hematology and Cell countson 10-23-2012 Basophils (Bld) [#/Vol] 30 {Cells}/uL Normal 0 - 200 {Cells}/uL [place] [facility].; [place] Basophils/100 WBC (Bld) 0 % Normal 0 - 2 % H [facility].; [place] [employer] Eosinophils (Bld) [#/Vol] 290 {Cells}/uL Normal 15 - 500 {Cells}/uL [place] [employer]; [employer]. Eosinophils/100 WBC (Bld) 5 % Normal 0 - 8 % [place] [employer]; [employer]. Erythrocyte distribution width (RBC) [Ratio] 14.1 % Normal 11.0 - 15.0 % [place] [employer] [facility].; [employer]. Hematocrit (Bld) [Volume fraction] 39.6 % Normal 35.0 - 45.0 % [place] [employer]; [employer]. Hemoglobin (Bld) [Mass/Vol] 12.9 g/dL Normal 11.7 - 15.5 g/dL [place] [employer] [facility].; [place] [employer], [employer]. Lymphocytes (Bld) [#/Vol] 2150 {Cells}/uL Normal 850 - 3900 {Cells}/uL [place] [employer]; [employer], [employer]. Lymphocytes/100 WBC (Bld) 34 % Normal 15 - 49 % [place] [employer]; [employer]. MCH (RBC) [Entitic mass] 30.0 pg Normal 27.0 - 33.0 PG [facility].; [place] [employer], [facility]. MCHC (RBC) [Mass/Vol] 32.5 g/dL Normal 32.0 - 36.0 g/dL [facility].; [place], [facility]. MCV (RBC) [Entitic vol] 92.4 fL Normal 80.0 - 100.0 fL [facility], [facility].; [place], [facility]. Monocytes (Bld) [#/Vol] 100 {Cells}/uL Abnormal 20 0 - 950 {Cells}/uL [facility].; [place] [employer] Monocytes/100 WBC (Bld) 2 % Normal 0 - 13 % H [facility].; [facility], [facility]. Neutrophils (Bld) [#/Vol] 3800 {Cells}/uL Normal 1500 - 7800 {Cells}/uL [facility], [facility].; [place] [employer], [employer]. Neutrophils/100 WBC (Bld) 60 % Normal 38 - 80 % [facility].; [place] [employer], [facility]. Platelets (Bld) [#/Vol] 254 10*3/uL Normal 140 - 400 10*3/uL [facility].; [place] [employer], [employer]. RBC (Bld) [#/Vol] 4.28 10*6/uL Normal 3.80 - 5.1 0 10*6/uL [facility], [facility].; [place] [employer], [employer]. WBC (Bld) [#/Vol] 6.4 10*3/uL Normal 3.8 - 10.8 10*3/uL [facility], [facility].; [employer] Laboratory - Chemistry and C hemistry - challengeon 03-16-2012 TSH Qn 3.95 mU/mL Normal 0.35 - 5.5 mU/mL [facility], [facility].; [employer], [employer]. Laboratory - Chemistry and C hemistry - challengeon 09-09-2011 Bilirubin Ql (U) Negative Normal [facility], [facility].; [employer] Ketones Ql (U) Negative Normal [facility].; [employer] pH (U) 5.5 [pH] Normal 4.6 - 8.0 [place] [employer]; [employer] Specific gravity (U) [Rel density] 1.020 Normal 1.001 - 1.025 [place] [employer] Laboratory - Hematology and Cell countson 09-09-2011 Hemoglobin Ql (U) Moderate Abnormal [place].; [employer]. Laboratory - Specimen inform ationon 09-09-2011 Appearance (U) Clear Normal [facility] [employer] Color (U) yellow Normal [place] [email or web address]; [employer]. Laboratory - Urinalysison Glucose Test strip (U) [Mass/Vol] Negative Normal [place] [employer]; [employer] Leukocyte esterase Test strip Ql (U) small Abnormal [place] [employer]; [employer]. Nitrite Ql (U) Negative Normal [facility].; [employer]. Protein Ql (U) Negative Normal [facility] [employer]. No Panel Informationon 09-08 0.2 mg/dL Normal [employer]; [employer]. Laboratory - Chemistry and C hemistry - challengeon 08-23-2011 Albumin [Mass/Vol] 4.5 g/dL Normal 3.5 - 5.0 g/dL [place] [employer]; [employer]. Albumin/Globulin [Mass ratio] 1.7 {ratio} Abnormal [employer] [facility].; [employer]. ALP [Catalytic activity/Vol] 66 U/L Normal 50 - 136 U/L [employer].; [employer]. ALT [Catalytic activity/Vol] 11 mmol/L Abnormal 12 - 49 mmol/L [employer].; [employer]. AST [Catalytic activity/Vol] 17 U/L Normal 15 - 37 U/L [place] [employer]; [employer]. Bilirubin [Mass/Vol] 0.7 mg/dL Normal 0.3 - 1 .0 mg/dL [place] [employer]; [facility], [facility]. Calcium [Mass/Vol] 9.8 mg/dL Normal 8.4 - 10. 6 mg/dL [facility].; [facility], [facility]. Chloride [Moles/Vol] 105 mmol/L Normal 98 - 11 0 mmol/L [facility], [facility] [facility].; [facility], [facility]. Cholesterol [Mass/Vol] 155 mg/dL Normal 0 - 2 00 mg/dL [facility].; [facility], [facility]. Cholesterol in HDL [Mass/Vol] 51 mg/dL Normal 40 - 60 mg/dL [facility].; [facility], [facility]. Cholesterol in LDL [Mass/Vol] 86 mg/dL Normal 50.0 - 130.0 mg/dL [facility].; [facility], [facility] Cholesterol.total/Antonietta sterol in HDL [Mass ratio] 3.0 {ratio} Normal 0 - 5.0 [facility].; [facility], [facility]. CO2 [Moles/Vol] 32.0 {joel/L} Normal 22.0 - 32.0 {joel/L} [facility]People[facility].; [facility], [facility]. Creatinine [Mass/Vol] 0.7 mg/dL Normal 0.6 - 1.4 mg/dL [facility].; [facility], [facility]. Globulin (S) [Mass/Vol] 2.6 g/dL Normal 1.5 - 3.8 g/dL [facility], [facility].; [facility], [facility]. Glucose [Mass/Vol] 95 mg/dL Normal 75 - 105 mg/dL [facility], [facility].; [facility], [facility]. Potassium [Moles/Vol] 4.3 mmol/L Normal 3.50 - 5.00 meq/L [facility].; [facility], [facility]. Protein [Mass/Vol] 7.1 g/dL Normal 6.4 - 8.2 g/dL [facility], [facility].; [facility], [facility]. Sodium [Moles/Vol] 141 mmol/L Normal 136 - 145 mmol/L [facility], [facility].; [facility], [facility]. Triglyceride [Mass/Vol] 89 mg/dL Normal 40 - 150 mg/dL [facility].; [facility] HospitalPeople[facility] TSH Qn 5.86 mU/mL Abnormal 0.35 - 5.5 mU/mL [facility].; [facility], [facility] Urea nitrogen [Mass/Vol] 11 mg/dL Normal 7.0 - 20.0 mg/dL [facility], [facility].; [facility], [facility] Urea nitrogen/Creatinine [Mass ratio] 16 mg/mg Normal 0 - 30 [facility].; [facility]People[facility] Laboratory - Hematology and Cell countson 08-23-2011 Basophils/100 WBC (Bld) 0.0 % Normal 0.00 - 0.10 [facility]; [facility], [facility] Basophils/100 WBC (Bld) 0.8 % Normal 0.0 - 2.0 % [facility], [facility]; [facility], [facility] Eosinophils/100 WBC (Bld) 0.30 % Normal 0.00 - 0.50 [facility].; [facility], [facility] Eosinophils/100 WBC (Bld) 5.5 % Normal 0.0 - 6.0 % [facility] HospitalPeople[facility]; [facility], [facility] Erythrocyte distribution width (RBC) [Ratio] 13.6 % Normal 12.0 - 15.6 % [facility], [facility].; [facility], [facility] Hematocrit (Bld) [Volume fraction] 39.6 % Normal 34 - 44 % [facility], [facility].; [facility], [facility] Lymphocytes/100 WBC (Bld) 1.80 % Normal [facility].; [facility], [facility] Lymphocytes/100 WBC (Bld) 30.5 % Normal 20.0 - 45.0 % [facility], [facility].; [facility], [facility]. MCH (RBC) [Entitic mass] 30 pg Normal 27 - 33 pg [facility], [facility].; [facility] MCHC (RBC) [Mass/Vol] 33 g/dL Normal 32 - 36 g/dL [facility], [facility].; [facility], [facility] MCV (RBC) [Entitic vol] 91 fL Normal 80 - 99 fL [facility]People[facility]; [facility]People[facility]. Monocytes/100 WBC (Bld) 0.40 % Normal H [facility]People[facility].; [facility] HospitalQu[facility]. Neutrophils/100 WBC (Bld) 56.4 % Normal 46 - 76 % [facility] HospitalPeople[facility].; [place] [employer], [employer]. Platelet mean volume (Bld) [Entitic vol] 8.5 fL Normal 6.6 - 10.5 fL [facility] HospitalPeople[facility].; [facility] [employer], [facility]. Platelets (Bld) [#/Vol] 240 10*9{Cells}/L Normal 150 - 450 10*9{Cells}/ L [facility] HospitalPeople[facility].; [place] [employer], [employer]. RBC (Bld) [#/Vol] 4.36 10*6/uL Normal 4.10 - 5.3 0 10*6/uL [facility]People[facility].; [place] [employer], [employer]. WBC (Bld) [#/Vol] 6.1 10*9{Cells}/L Normal 4.5 - 10.8 10*9{Cells}/ L [facility] HospitalPeople[facility].; [place] [employer] [facility]. No Panel Informationon 08-22 3.40 10*6/uL Normal 1.5 - 7.1 10*6/uL [facility]People[facility].; [place] [employer], [facility]. 6.8 % Normal 2.0 - 13.0 % [facility].; [place] [employer], [facility]. 13.1 g/dL Normal 11.5 - 14.2 g/dL [facility] HospitalPeople[facility].; [place] [employer], [employer]. 84 Normal [facility] HospitalPeople[facility].; [employer]. Laboratory - Chemistry and C hemistry - challengeon 02-26-2011 Cholesterol [Mass/Vol] 210 mg/dL Abnormal 0 - 2 00 mg/dL [facility] HospitalPeople[facility].; [place] [employer], [employer]. Cholesterol in HDL [Mass/Vol] 58 mg/dL Normal 40 - 60 mg/dL [facility], [facility].; [place] [employer], [employer]. Cholesterol in LDL [Mass/Vol] 138 mg/dL Abnormal 50.0 - 130.0 mg/dL [facility] HospitalPeople[facility].; [place] [employer]. Cholesterol.total/Antonietta sterol in HDL [Mass ratio] 3.6 {ratio} Normal 0 - 5.0 [facility] Hospital[facility]; [employer] Triglyceride [Mass/Vol] 69 mg/dL Normal 40 - 150 mg/dL [facility] [employer].; [employer]. Laboratory - Chemistry and C hemistry - challengeon 08-26-2010 Bilirubin Ql (U) Negative Normal [facility].; [employer]. Ketones Ql (U) Negative Normal [facility].; [employer]. pH (U) 5.0 [pH] Normal 4.6 - 8.0 [place] [employer]; [employer]. Specific gravity (U) [Rel density] 1.020 Normal 1.001 - 1.025 [facility]People[facility] CenterMedprivé; [employer]. Laboratory - Hematology and Cell countson 08-26-2010 Hemoglobin Ql (U) Abnormal [place] [employer]; [employer]. Laboratory - Specimen inform ationon 08-26-2010 Appearance (U) clear Normal [facility] [employer]; [employer]. Color (U) yellow Normal [place] [employer]; [employer]. Laboratory - Urinalysison Glucose Test strip (U) [Mass/Vol] Negative Normal [facility] Hospital[facility].; [employer]. Leukocyte esterase Test strip Ql (U) large Abnormal [place] [employer]; [employer]. Nitrite Ql (U) Negative Normal [facility] [employer].; [employer]. Protein Ql (U) Negative Normal [facility].; [employer]. No Panel Informationon 08-26 0.2 mg/dL Normal [place] [employer]; [employer]. Laboratory - Chemistry and C hemistry - challengeon 07-23-2010 ALT [Catalytic activity/Vol] 15 mmol/L Normal 12 - 49 mmol/L [facility] [employer]; [employer]. Calcium [Mass/Vol] 10.1 mg/dL Normal 8.4 - 10. 6 mg/dL [facility]People[facility].; [facility]People[facility]. Chloride [Moles/Vol] 108 mmol/L Normal 98 - 11 0 mmol/L [facility] HospitalPeople[facility].; [facility], [employer]. Cholesterol [Mass/Vol] 139 mg/dL Normal 0 - 2 00 mg/dL [facility], [facility].; [facility], [employer]. Cholesterol in HDL [Mass/Vol] 48 mg/dL Normal 40 - 60 mg/dL [facility]People[facility].; [place] [employer] Cholesterol in LDL [Mass/Vol] 80 mg/dL Normal 0 - 100 mg/dL [facility]People[facility].; [facility], [employer]. Cholesterol.total/Antonietta sterol in HDL [Mass ratio] 2.9 {ratio} Normal 0 - 5.0 [facility]People[facility].; [facility], [employer]. CO2 [Moles/Vol] 34.0 {joel/L} Abnormal 22.0 - 32.0 {joel/L} [facility] HospitalPeople[facility].; [place] [employer], [employer]. Glucose [Mass/Vol] 90 mg/dL Normal 60 - 100 mg/dL [facility]People[facility].; [place] [employer], [employer]. Potassium [Moles/Vol] 4.3 mmol/L Normal 3.5 - 5.0 mmol/L [facility]People[facility].; [place] [employer], [employer]. Sodium [Moles/Vol] 144 mmol/L Normal 136 - 145 mmol/L [facility], [facility].; [place] [employer], [employer]. Triglyceride [Mass/Vol] 57 mg/dL Normal 0 - 150 mg/dL [facility] HospitalPeople[facility].; [employer], [employer]. Urea nitrogen [Mass/Vol] 13 mg/dL Normal 8 - 22 mg/dL [facility] HospitalQu[facility].; [employer], [employer]. Laboratory - Chemistry and C hemistry - challengeOrdered By: Janeth Florez on 07-23-2010 Creatinine [Mass/Vol] 0.6 mg/dL Normal 0.5 - 1.2 mg/dL [facility] HospitalQu[facility].; [place] [employer] Work Phone: Laboratory - Hematology and Cell countson 07-23-2010 Basophils/100 WBC (Bld) 0.10 % Normal 0.00 - 0.10 [place] [employer]; [employer]. Basophils/100 WBC (Bld) 1.1 % Normal 0.0 - 2.0 % [place] [employer]; [employer], [employer]. Eosinophils/100 WBC (Bld) 0.30 % Normal 0.00 - 0.50 [place] [employer]; [place] [employer], [employer] Eosinophils/100 WBC (Bld) 6.0 % Normal 0.0 - 6.0 % [place] [employer]; [employer] Erythrocyte distribution width (RBC) [Ratio] 13.6 % Normal 12.0 - 15.6 % [place] [employer]; [employer], [employer]. Hematocrit (Bld) [Volume fraction] 37.3 % Normal 34 - 44 % [place] [employer], [employer].; [employer], [employer] Lymphocytes/100 WBC (Bld) 2.00 % Normal [place] [employer]; [employer]. Lymphocytes/100 WBC (Bld) 36.3 % Normal 20.0 - 45.0 % [employer].; [employer], [employer]. MCH (RBC) [Entitic mass] 31 pg Normal 27 - 33 pg [facility] [employer]; [employer], [employer]. MCHC (RBC) [Mass/Vol] 34 g/dL Normal 32 - 36 g/dL [facility] [employer]; [employer], [employer]. MCV (RBC) [Entitic vol] 92 fL Normal 80 - 99 fL [facility] [employer]; [employer], [employer]. Monocytes/100 WBC (Bld) 0.50 % Normal H [facility] [employer]; [employer], [employer]. Neutrophils/100 WBC (Bld) 48.3 % Normal 46 - 76 % [employer].; [employer], [employer]. Platelet mean volume (Bld) [Entitic vol] 8.3 fL Normal 6.6 - 10.5 fL [facility] [employer]; [employer], [employer]. Platelets (Bld) [#/Vol] 239 10*9{Cells}/L Normal 150 - 450 10*9{Cells}/ L [facility].; [facility]. RBC (Bld) [#/Vol] 4.07 10*6/uL Abnormal 4.10 - 5.3 0 10*6/uL [facility].; [facility]. WBC (Bld) [#/Vol] 5.5 10*9{Cells}/L Normal 4.5 - 10.8 10*9{Cells}/ L [facility].; [facility]People[facility]. No Panel Informationon 07-23 2.70 10*6/uL Normal 1.5 - 7.1 10*6/uL [facility].; [facility]People[facility] 8.3 % Normal 2.0 - 13.0 % [facility].; [facility]People[facility] 12.6 g/dL Normal 11.5 - 14.2 g/dL [facility].; [facility] HospitalPeople[facility] Vital Signs Date Time Vital Sign Value Performing Clinician Faci lity 07-13-2024 14:26-0400 Diastolic blood pressure 84 mm[Hg] Dr. Joel Muniz MD Work Phone: 2(073)117-671970 [place] [address] 07-13-2024 14:26-0400 Heart rate 64 /min Dr. Joel Muniz MD Work Phone: 9(550)117-890870 [place] [address] 07-13-2024 14:26-0400 Respiratory rate 18 /min Dr. Joel Muniz MD Work Phone: 6(428)281-807670 [place] [address] 07-13-2024 14:26-0400 SaO2% (BldA) [Mass fraction] 96 % Dr. Joel Muniz MD Work Phone: 4(851)294-023370 [place] [address] 07-13-2024 14:26-0400 Systolic blood pressure 179 mm[Hg] Dr. Joel Muniz MD Work Phone: 8(205)961-161070 [place] [address] 07-06-2024 14:31-0400 Body height 160.[address] Joel Muniz MD Work Phone: 6(316)491-839570 [place] [address] 07-06-2024 14:31-0400 Body temperature 98.7 [degF] Dr. Joel Muniz MD Work Phone: 5(264)037-700207 [address] 07-06-2024 14:31-0400 Diastolic blood pressure 69 mm[Hg] Dr. Joel Muniz MD Work Phone: 1(512)592-457031 [place] [address] 07-06-2024 14:31-0400 Heart rate 90 /min Dr. Joel Muniz MD Work Phone: 7(180)969-452931 [place] [address] 07-06-2024 14:31-0400 Respiratory rate 18 /min Dr. Joel Muniz MD Work Phone: 6(013)362-520031 [place] [address] 07-06-2024 14:31-0400 SaO2% (BldA) [Mass fraction] 95 % Dr. Joel Muniz MD Work Phone: 8(833)811-282131 [place] [address] 07-06-2024 14:31-0400 Systolic blood pressure 127 mm[Hg] Dr. Joel Muniz MD Work Phone: 6(645)180-096231 [place] [address] 07-03-2024 10:18-0400 Body height 160.[address] Joel Muniz MD Work Phone: 8(418)973-720531 [place] [address] 07-03-2024 10:18-0400 Body mass index (BMI) [Ratio] 24 kg/m2 Dr. Joel Muniz MD Work Phone: 8(440)004-952131 [place] [address] 07-03-2024 10:18-0400 Body weight 61.[address] Joel Muniz MD Work Phone: 4(131)999-354631 [place] [address] 07-03-2024 10:18-0400 Diastolic blood pressure 91 mm[Hg] Dr. Joel Muniz MD Work Phone: 8(182)877-007631 [place] [address] 07-03-2024 10:18-0400 Heart rate 66 /min Dr. Joel Muniz MD Work Phone: 6(819)020-855170 [place] [address] 07-03-2024 10:18-0400 Respiratory rate 18 /min Dr. Joel Muniz MD Work Phone: 6(942)024-339331 [place] [address] 07-03-2024 10:18-0400 SaO2% (BldA) [Mass fraction] 94 % Dr. Joel Muniz MD Work Phone: 9(590)029-648470 [place] [address] 07-03-2024 10:18-0400 Systolic blood pressure 165 mm[Hg] Dr. Joel Muniz MD Work Phone: 7(442)020-575870 [place] [address] 06-28-2024 14:56-0400 Body mass index (BMI) [Ratio] 23.7 kg/m2 Dr. Joel Muniz MD Work Phone: 5(353)225-196770 [place] [address] 06-28-2024 14:56-0400 Body temperature 97.7 [degF] Dr. Joel Muniz MD Work Phone: 0(742)410-835170 [place] [address] 06-28-2024 14:56-0400 Body weight 60.[address] Joel Muniz MD Work Phone: 9(105)688-008870 [place] [address] 06-28-2024 14:56-0400 Heart rate 76 /min Dr. Joel Muniz MD Work Phone: 3(897)557-327170 [place] [address] 06-28-2024 14:56-0400 Respiratory rate 18 /min Dr. Joel Muniz MD Work Phone: 9(132)476-027470 [place] [address] 06-28-2024 14:56-0400 SaO2% (BldA) [Mass fraction] 94 % Dr. Joel Muniz MD Work Phone: 7(913)526-874270 [place] [address] 06-26-2024 00:49-0400 Body temperature 98 [degF] Dr. Joel Muniz MD Work Phone: 8(470)533-863470 [place] [address] 06-26-2024 00:49-0400 Diastolic blood pressure 80 mm[Hg] Dr. Joel Muniz MD Work Phone: 0(714)647-832070 [place] [address] 06-26-2024 00:49-0400 Heart rate 89 /min Dr. Joel Muniz MD Work Phone: 9(548)565-986970 [place] [address] 06-26-2024 00:49-0400 Respiratory rate 16 /min Dr. Joel Muniz MD Work Phone: 3(613)308-849570 [place] [address] 06-26-2024 00:49-0400 SaO2% (BldA) [Mass fraction] 99 % Dr. Joel Muniz MD Work Phone: 5(143)451-091770 [place] [address] 06-26-2024 00:49-0400 Systolic blood pressure 146 mm[Hg] Dr. Joel Muniz MD Work Phone: [facility] 06-25-2024 20:55-0400 Body height 160.[address] Joel Muniz MD Work Phone: [facility] 06-25-2024 20:55-0400 Body mass index (BMI) [Ratio] 24.5 kg/m2 Dr. Joel Muniz MD Work Phone: [facility] 06-25-2024 20:55-0400 Body weight 62.[address] Joel Muniz MD Work Phone: [facility] 01-17-2024 15:58-0500 Diastolic blood pressure 80 mm[Hg] Chico Collier MD Work Phone: [facility]; [facility] 01-17-2024 15:58-0500 Systolic blood pressure 120 mm[Hg] Chico Collier MD Work Phone: [facility] [employer]; [facility] 03-03-2023 09:30-0500 Blood Pressure Cuff Size STAN GARCIA DO [facility] 03-03-2023 09:30-0500 Blood Pressure Location STAN BARRETTLE DO [employer] 03-03-2023 09:30-0500 Blood Pressure Method STAN GARCIA DO [facility] 03-03-2023 09:30-0500 Body temperature 97.16 [degF] STAN BARRETTLE DO [employer] 03-03-2023 09:30-0500 Diastolic Blood Pressure Non-Invasive 60 mm[Hg] STAN VIVEKROSALINDALE DO [facility] 03-03-2023 09:30-0500 Heart rate 93 /min STAN RADHA DO [facility] 03-03-2023 09:30-0500 Reason For Taking VItal Signs STAN DOYLEATZLE DO [facility] 03-03-2023 09:30-0500 Respiratory rate 18 /min STAN DOYLEATZLE DO [facility] [employer] 03-03-2023 09:30-0500 Systolic Blood Pressure Non-Invasive 108 mm[Hg] STAN SCHEATZLE DO [facility] [employer] 03-03-2023 05:17-0500 Body temperature 96.8 [degF] STAN DOYLEATZLE DO [facility] 03-03-2023 05:17-0500 Diastolic Blood Pressure Non-Invasive 70 mm[Hg] STAN DOYLEATZLE DO SET 03-03-2023 05:17-0500 Heart rate 73 /min STAN DOYLEATZLE DO [facility] 03-03-2023 05:17-0500 Respiratory rate 16 /min STAN DOYLEATZLE DO [facility] 03-03-2023 05:17-0500 Systolic Blood Pressure Non-Invasive 100 mm[Hg] STAN DOYLEATZLE DO [facility] 03-02-2023 21:09-0500 Body temperature 98.42 [degF] STAN SCHEATZLE DO [facility] 03-02-2023 21:09-0500 Diastolic Blood Pressure Non-Invasive 70 mm[Hg] STAN SCHEATZLE DO [facility] 03-02-2023 21:09-0500 Heart rate 78 /min STAN SCHEATZLE DO [facility] 03-02-2023 21:09-0500 Reason For Taking VItal Signs STAN SCHEATZLE DO [facility] 03-02-2023 21:09-0500 Respiratory rate 16 /min STAN DOYLEATZLE DO [facility] [place] 03-02-2023 21:09-0500 Systolic Blood Pressure Non-Invasive 150 mm[Hg] STAN DOYLEATZLE DO [facility] [place] 03-02-2023 16:18-0500 Body temperature 97.7 [degF] STAN DOYLEATZLE DO [facility] [place] 03-02-2023 16:18-0500 Heart rate 82 /min STAN DOYLEATZLE DO [facility] 03-02-2023 16:18-0500 Reason For Taking VItal Signs STAN DOYLEATZLE DO [facility] 03-02-2023 11:35-0500 Heart rate 85 /min STAN DOYLEATZLE DO [facility] [place] 03-02-2023 09:10-0500 Blood Pressure Cuff Size STAN DOYLEATZLE DO [facility] [place] 03-02-2023 09:10-0500 Blood Pressure Location STAN DOYLEATZLE DO [facility] [place] 03-02-2023 09:10-0500 Blood Pressure Method STAN DOYLEATZLE DO [facility] [place] 03-02-2023 09:10-0500 Heart rate 88 /min STAN DOYLEATZLE DO [facility] 03-01-2023 08:55-0500 Blood Pressure Cuff Size STAN VIVEKATZLE DO [facility] 03-01-2023 08:55-0500 Blood Pressure Location STAN DOYLEATZLE DO [facility] 03-01-2023 08:55-0500 Blood Pressure Method STAN SCHEATZLE DO [facility] 02-28-2023 05:00-0500 Body weight 58.6 kg STAN GARCIA DO [facility] 02-27-2023 09:19-0500 Body temperature 98.06 [degF] STAN DOYLEATZLE DO [facility] 02-26-2023 16:00-0500 Body temperature 97.88 [degF] STAN DOYLEATZLE DO [facility] 02-21-2023 09:10-0500 Body weight 59.4 kg STAN BARRETTLE DO [facility] 02-15-2023 17:37-0500 Body height 160 cm STAN GARCIA DO [facility] 02-15-2023 17:37-0500 Body weight 59.8 kg STAN GARCIA DO [facility] 02-15-2023 17:37-0500 Body weight 23.36 kg/m2 STAN GARCIA DO [facility] 02-15-2023 11:06-[address] KATINA VALDIVIA MD [facility] 02-15-2023 11:06-[address] KATINA VALDIVIA MD [facility] 02-15-2023 11:06-0500 Body temperature 98.06 [degF] DR KATINA VALDIVIA MD [facility] 02-15-2023 11:06-0500 Diastolic Blood Pressure Non-Invasive 51 mm[Hg] DR KATINA VALDIVIA MD [facility] 02-15-2023 11:06-0500 Heart rate 90 /min DR KATINA VALDIVIA MD [address] [place] [address] 02-15-2023 11:06-0500 Reason For Taking VItal Signs DR KATINA VALDIVIA MD [address] [place] [address] 02-15-2023 11:06-0500 Respiratory rate 18 /min DR KATINA VALDIVIA MD [address] [place] [address] 02-15-2023 11:06-0500 Systolic Blood Pressure Non-Invasive 97 mm[Hg] DR KATINA VALDIVIA MD [address] [place] [address] 02-15-2023 07:36-[address] KATINA VALDIVIA MD [address] [place] [address] 02-15-2023 07:36-[address] KATINA VALDIVIA MD [address] [place] [address] 02-15-2023 07:36-0500 Body temperature 98.42 [degF] DR KATINA VALDIVIA MD [address] [place] [address] 02-15-2023 07:36-0500 Diastolic Blood Pressure Non-Invasive 83 mm[Hg] DR KATINA VALDIVIA MD [address] [place] [address] 02-15-2023 07:36-0500 Heart rate 88 /min DR KATINA VALDIVIA MD [address] [place] [address] 02-15-2023 07:36-0500 Reason For Taking VItal Signs DR KAITNA VALDIVIA MD [address] [place] [address] 02-15-2023 07:36-0500 Respiratory rate 16 /min DR KATINA VALDIVIA MD [address] [place] [address] 02-15-2023 07:36-0500 Systolic Blood Pressure Non-Invasive 144 mm[Hg] DR KATINA VALDIVIA MD [address] [place] [address] 02-15-2023 04:03-0500 Body temperature 98.06 [degF] DR KATINA VALDIVIA MD [address] [place] [address] 02-15-2023 04:03-0500 Diastolic Blood Pressure Non-Invasive 79 mm[Hg] DR KATINA VALDIVIA MD [address] [place] [address] 02-15-2023 04:03-0500 Heart rate 86 /min DR KATINA VALDIVIA MD [address] [place] [address] 02-15-2023 04:03-0500 Reason For Taking VItal Signs DR KATINA VALDIVIA MD [address] [place] [address] 02-15-2023 04:03-0500 Respiratory rate 18 /min DR KATINA VALDIVIA MD [address] [place] [address] 02-15-2023 04:03-0500 Systolic Blood Pressure Non-Invasive 106 mm[Hg] DR KATINA VALDIVIA MD [address] [place] [address] 02-14-2023 23:31-0500 Heart rate 84 /min DR KATINA VALDIVIA MD [address] [place] [address] 02-14-2023 18:56-[address] KATINA VALDIVIA MD [address] [place] [address] 02-14-2023 18:56-[address] KATINA VALDIVIA MD [address] [place] [address] 02-14-2023 18:49-0500 Body height [address] KATINA VALDIVIA MD [address] [place] [address] 02-14-2023 18:49-0500 Body weight 57.[address] KATINA VALDIVIA MD [address] [place] [address] 02-14-2023 18:49-0500 Body weight 22.46 kg/m2 DR KATINA VALDIVIA MD [address] [place] [address] 02-13-2023 10:52-0500 Blood Pressure Cuff Size DR KATINA VALDIVIA MD [address] [place] [address] 02-13-2023 07:37-0500 Blood Pressure Cuff Size DR KATINA VALDIVIA MD [address] [place] [address] 02-13-2023 03:21-0500 Heart rate 83 /min DR KATINA VALDIVIA MD [address] [place] [address] 02-12-2023 12:07-0500 Blood Pressure Cuff Size DR KATINA VALDIVIA MD [address] [place] [address] 02-12-2023 05:32-0500 Heart rate 73 /min DR KATINA VALDIVIA MD [address] [place] [address] 02-12-2023 04:01-0500 Heart rate 78 /min DR KATINA VALDIVIA MD [address] [place] [address] 02-11-2023 23:48-0500 Heart rate 78 /min DR KATINA VALDIVIA MD [address] [place] [address] 02-11-2023 23:48-0500 Mean blood pressure 99 mm[Hg] DR KATINA VALDIVIA MD [address] [place] [address] 02-10-2023 19:29-0500 Heart rate 84 /min DR KATINA VALDIVIA MD [address] [place] [address] 02-10-2023 03:32-0500 Mean blood pressure 102 mm[Hg] DR KATINA VALDIVIA MD [address] [place] [address] 02-09-2023 23:03-0500 Body height [address] KATINA VALDIVIA MD [address] [place] [address] 02-09-2023 23:03-0500 Body weight 57.[address] KATINA VALDIVIA MD [address] [place] [address] 02-09-2023 23:03-0500 Body weight 22.46 kg/m2 DR KATINA VALDIVIA MD [address] [place] [address] 02-08-2023 18:00-0500 Mean blood pressure 87 mm[Hg] DR KATINA VALDIVIA MD [address] [place] [address] 02-08-2023 16:22-0500 Body weight 62.[address] KATINA VALDIVIA MD [facility] 01-26-2023 14:18-0500 Body weight 59.42 kg Obi Moraneduardo JOHNSON [facility], [facility].; [facility] 01-26-2023 14:18-0500 Diastolic blood pressure 78 mm[Hg] Obi Hardeep [facility], [facility].; [facility] 01-26-2023 14:18-0500 Heart rate 79 /min Obi Hardeep [facility], [facility].; [facility]. 01-26-2023 14:18-0500 Systolic blood pressure 145 mm[Hg] Obi Hardeep [facility].; [facility], [facility]. 01-12-2023 10:38-0500 Diastolic blood pressure 72 mm[Hg] Chico Collier MD Work Phone: [facility].; [employer] 01-12-2023 10:38-0500 Systolic blood pressure 159 mm[Hg] Chico Collier MD Work Phone: [facility].; [facility], [employer] 01-12-2023 09:49-0500 Body height 152.4 cm [facility] Work Phone: [facility].; [place] 01-12-2023 09:49-0500 Body mass index (BMI) [Ratio] 25.78 kg/m2 [facility] Work Phone: [facility].; [place] 01-12-2023 09:49-0500 Body surface area Derived from formula 1.56 m2 [facility] Work Phone: [facility], [employer].; Juliaetta [employer], [employer] 01-12-2023 09:49-0500 Body weight 59.88 kg [facility] Work Phone: [facility] [employer].; [employer] 01-12-2023 09:49-0500 Diastolic blood pressure 83 mm[Hg] Serena Zack TENSION MACHINE OPERATOR Work Phone: [employer].; [employer] 01-12-2023 09:49-0500 Heart rate 68 /min Serena Zack TENSION MACHINE OPERATOR Work Phone: [employer].; [employer] 01-12-2023 09:49-0500 Systolic blood pressure 168 mm[Hg] Serena Zack TENSION MACHINE OPERATOR Work Phone: [employer].; [employer] 04-30-2022 15:29-0400 Body height 152.4 cm Tavia Leavitt LPN [facility], Inc.; [employer] 04-30-2022 15:29-0400 Body mass index (BMI) [Ratio] 23.24 kg/m2 Tavia Leavitt LPN [facility], [facility].; [employer] 04-30-2022 15:29-0400 Body surface area Derived from formula 1.5 m2 Tavia Leavitt LPN [place] [facility], [facility].; [employer] 04-30-2022 15:29-0400 Body weight 53.98 kg Tavia Leavitt LPN [place] [facility], [facility].; [employer] 04-30-2022 15:29-0400 Diastolic blood pressure 61 mm[Hg] Tavia Leavitt LPN [place] [facility], [facility].; [employer] 04-30-2022 15:29-0400 Heart rate 67 /min Tavia Leavitt LPN [facility], [facility].; [employer] 04-30-2022 15:29-0400 Systolic blood pressure 157 mm[Hg] Tavia Leavitt LPN [facility], [facility].; [employer] 01-06-2022 09:51-0500 Body height 152.4 cm Tavia Leavitt LPN [facility], [facility].; [employer], [facility]. 01-06-2022 09:51-0500 Body mass index (BMI) [Ratio] 22.26 kg/m2 Tavia Leavitt LPN [facility], Inc.; [employer] 01-06-2022 09:51-0500 Body surface area Derived from formula 1.47 m2 Tavia Leavitt LPN [place] [facility], [facility].; [employer] 01-06-2022 09:51-0500 Body weight 51.71 kg Tavia Leavitt LPN [place] [facility], [facility].; [employer] 01-06-2022 09:51-0500 Diastolic blood pressure 64 mm[Hg] Tavia Leavitt LPN [place] [facility], [facility].; [employer], [employer]. 01-06-2022 09:51-0500 Heart rate 79 /min Tavia Leavitt LPN [place] [facility], [facility].; [employer] 01-06-2022 09:51-0500 Systolic blood pressure 125 mm[Hg] Tavia Leavitt LPN [place] [facility], [facility].; [employer] 11-16-2021 15:51-0400 Body height 152.4 cm Serena Zack TENSION MACHINE OPERATOR Work Phone: [employer] 11-16-2021 15:51-0400 Body mass index (BMI) [Ratio] 22.46 kg/m2 Serena Zack TENSION MACHINE OPERATOR Work Phone: [employer].; [employer] 11-16-2021 15:51-0400 Body surface area Derived from formula 1.48 m2 Serena Zack TENSION MACHINE OPERATOR Work Phone: [employer].; [employer], [employer]. 11-16-2021 15:51-0400 Body weight 52.16 kg Serena Zack TENSION MACHINE OPERATOR Work Phone: [employer].; [employer] 11-16-2021 15:51-0400 Diastolic blood pressure 79 mm[Hg] Serena Zack TENSION MACHINE OPERATOR Work Phone: [employer].; [employer] [facility]. 11-16-2021 15:51-0400 Heart rate 88 /min Serena Zack TENSION MACHINE OPERATOR Work Phone: [place] [employer]; [place] [employer] 11-16-2021 15:51-0400 Systolic blood pressure 135 mm[Hg] Serena Zack TENSION MACHINE OPERATOR Work Phone: [place] [employer]; [employer] 07-08-2021 10:26-0400 Body height 152.4 cm Serena Zack TENSION MACHINE OPERATOR Work Phone: [employer].; [employer] 07-08-2021 10:26-0400 Body mass index (BMI) [Ratio] 22.46 kg/m2 Serena Zack TENSION MACHINE OPERATOR Work Phone: [employer].; [place] [employer] 07-08-2021 10:26-0400 Body surface area Derived from formula 1.48 m2 Serena Zack TENSION MACHINE OPERATOR Work Phone: [employer].; [employer]. 07-08-2021 10:26-0400 Body weight 52.16 kg Serena Zack TENSION MACHINE OPERATOR Work Phone: [employer].; [employer]. 07-08-2021 10:26-0400 Diastolic blood pressure 88 mm[Hg] Serena Zack TENSION MACHINE OPERATOR Work Phone: [employer].; [employer]. 07-08-2021 10:26-0400 Systolic blood pressure 160 mm[Hg] Serena Zack TENSION MACHINE OPERATOR Work Phone: [employer].; [employer]. 01-05-2021 10:22-0500 Body height 152.4 cm Serena Zack TENSION MACHINE OPERATOR Work Phone: [employer].; [employer]. 01-05-2021 10:22-0500 Body mass index (BMI) [Ratio] 22.46 kg/m2 Serena Zack TENSION MACHINE OPERATOR Work Phone: [employer].; [employer]. 01-05-2021 10:22-0500 Body surface area Derived from formula 1.48 m2 Serena Zack TENSION MACHINE OPERATOR Work Phone: [employer].; [employer]. 01-05-2021 10:22-0500 Body weight 52.16 kg Serena Zack TENSION MACHINE OPERATOR Work Phone: [employer].; [employer]. 01-05-2021 10:22-0500 Diastolic blood pressure 86 mm[Hg] Serena Zack TENSION MACHINE OPERATOR Work Phone: [employer].; [employer]. 01-05-2021 10:22-0500 Heart rate 90 /min Serena Zack TENSION MACHINE OPERATOR Work Phone: [employer].; [employer]. 01-05-2021 10:22-0500 Systolic blood pressure 151 mm[Hg] Serena Zack TENSION MACHINE OPERATOR Work Phone: [employer].; [employer]. 08-06-2020 11:07-0400 Body height 152.4 cm Serena Zack TENSION MACHINE OPERATOR Work Phone: [employer].; [employer]. 08-06-2020 11:07-0400 Body mass index (BMI) [Ratio] 23.44 kg/m2 Serena Zack TENSION MACHINE OPERATOR Work Phone: [employer].; [employer]. 08-06-2020 11:07-0400 Body surface area Derived from formula 1.5 m2 Serena Zack TENSION MACHINE OPERATOR Work Phone: [employer].; [employer]. 08-06-2020 11:07-0400 Body weight 54.43 kg Serena Zack TENSION MACHINE OPERATOR Work Phone: [employer].; [employer] 08-06-2020 11:07-0400 Diastolic blood pressure 84 mm[Hg] Serena Zack TENSION MACHINE OPERATOR Work Phone: [employer].; [employer] 08-06-2020 11:07-0400 Heart rate 79 /min Serena Zack TENSION MACHINE OPERATOR Work Phone: [employer].; [employer] 08-06-2020 11:07-0400 Systolic blood pressure 154 mm[Hg] Serena Zack TENSION MACHINE OPERATOR Work Phone: [employer].; [employer] 07-28-2020 10:29-0400 Body weight 54.43 kg Serena Zack TENSION MACHINE OPERATOR Work Phone: [employer].; [employer]. 07-28-2020 10:29-0400 Diastolic blood pressure 82 mm[Hg] Serena Zack TENSION MACHINE OPERATOR Work Phone: [employer].; [employer]. 07-28-2020 10:29-0400 Heart rate 80 /min Serena Zack TENSION MACHINE OPERATOR Work Phone: [employer].; [employer] 07-28-2020 10:29-0400 Systolic blood pressure 157 mm[Hg] Serena Zack TENSION MACHINE OPERATOR Work Phone: [employer].; [employer] 06-30-2020 10:23-0400 Body height 152.4 cm Serena Zack TENSION MACHINE OPERATOR Work Phone: [employer].; [employer]. 06-30-2020 10:23-0400 Body mass index (BMI) [Ratio] 23.24 kg/m2 Serena Zack TENSION MACHINE OPERATOR Work Phone: [employer].; [employer]. 06-30-2020 10:23-0400 Body surface area Derived from formula 1.5 m2 Serena Zack TENSION MACHINE OPERATOR Work Phone: [employer].; [employer]. 06-30-2020 10:23-0400 Body weight 53.98 kg Serena Zack TENSION MACHINE OPERATOR Work Phone: [employer].; [employer]. 06-30-2020 10:23-0400 Diastolic blood pressure 107 mm[Hg] Serena Zack TENSION MACHINE OPERATOR Work Phone: [employer].; [employer]. 06-30-2020 10:23-0400 Heart rate 87 /min Serena Zack TENSION MACHINE OPERATOR Work Phone: [employer].; [employer]. 06-30-2020 10:23-0400 Systolic blood pressure 177 mm[Hg] Serena Zack TENSION MACHINE OPERATOR Work Phone: [employer].; [employer]. 12-31-2019 09:48-0500 Body height 152.4 cm Serena Zack TENSION MACHINE OPERATOR Work Phone: [employer].; [employer]. 12-31-2019 09:48-0500 Body mass index (BMI) [Ratio] 21.29 kg/m2 Serena Zack TENSION MACHINE OPERATOR Work Phone: [employer].; [employer]. 12-31-2019 09:48-0500 Body surface area Derived from formula 1.44 m2 Serena Zack TENSION MACHINE OPERATOR Work Phone: [employer].; [employer]. 12-31-2019 09:48-0500 Body weight 49.44 kg Serena Zack TENSION MACHINE OPERATOR Work Phone: [employer].; [employer]. 12-31-2019 09:48-0500 Diastolic blood pressure 87 mm[Hg] Serena Zack TENSION MACHINE OPERATOR Work Phone: [employer].; [employer]. 12-31-2019 09:48-0500 Heart rate 98 /min Serena Zack TENSION MACHINE OPERATOR Work Phone: [employer].; [employer]. 12-31-2019 09:48-0500 Systolic blood pressure 144 mm[Hg] Serena Zack TENSION MACHINE OPERATOR Work Phone: [employer].; [employer]. 10-01-2019 09:13-0400 Body height 157.48 cm Serena Zack TENSION MACHINE OPERATOR Work Phone: [employer].; [employer]. 10-01-2019 09:13-0400 Body mass index (BMI) [Ratio] 19.75 kg/m2 Serena Zack TENSION MACHINE OPERATOR Work Phone: [employer].; [employer]. 10-01-2019 09:13-0400 Body surface area Derived from formula 1.47 m2 Serena Zack TENSION MACHINE OPERATOR Work Phone: [employer].; [employer]. 10-01-2019 09:13-0400 Body weight 48.99 kg Serena Zack TENSION MACHINE OPERATOR Work Phone: [employer].; [employer]. 10-01-2019 09:13-0400 Diastolic blood pressure 99 mm[Hg] Serena Zack TENSION MACHINE OPERATOR Work Phone: [employer].; [employer]. 10-01-2019 09:13-0400 Heart rate 73 /min Serena Zack TENSION MACHINE OPERATOR Work Phone: [employer].; [employer]. 10-01-2019 09:13-0400 Systolic blood pressure 177 mm[Hg] Serena Zack TENSION MACHINE OPERATOR Work Phone: [employer].; [employer]. 06-28-2019 11:35-0400 Diastolic blood pressure 87 mm[Hg] Chico Collier MD Work Phone: [employer].; [employer]. 06-28-2019 11:35-0400 Systolic blood pressure 150 mm[Hg] Chico Collier MD Work Phone: [employer].; [employer]. 06-28-2019 10:21-0400 Body height 157.48 cm Serena Zack TENSION MACHINE OPERATOR Work Phone: [employer].; [employer]. 06-28-2019 10:21-0400 Body mass index (BMI) [Ratio] 21.22 kg/m2 Serena Zack TENSION MACHINE OPERATOR Work Phone: [employer].; [employer]. 06-28-2019 10:21-0400 Body surface area Derived from formula 1.52 m2 Serena Zack TENSION MACHINE OPERATOR Work Phone: [employer].; [employer]. 06-28-2019 10:21-0400 Body weight 52.62 kg Serena Zack TENSION MACHINE OPERATOR Work Phone: [employer].; [employer]. 06-28-2019 10:21-0400 Diastolic blood pressure 91 mm[Hg] Serena Zack TENSION MACHINE OPERATOR Work Phone: [employer].; [employer]. 06-28-2019 10:21-0400 Heart rate 78 /min Serena Zack TENSION MACHINE OPERATOR Work Phone: [employer].; [employer]. 06-28-2019 10:21-0400 Systolic blood pressure 169 mm[Hg] Serena Zack TENSION MACHINE OPERATOR Work Phone: [employer].; [employer]. 12-28-2018 09:51-0500 Body height 157.48 cm Serena Zack TENSION MACHINE OPERATOR Work Phone: [employer].; [employer]. 12-28-2018 09:51-0500 Body mass index (BMI) [Ratio] 20.48 kg/m2 Serena Zack TENSION MACHINE OPERATOR Work Phone: [employer].; [employer]. 12-28-2018 09:51-0500 Body surface area Derived from formula 1.49 m2 Serena Zack TENSION MACHINE OPERATOR Work Phone: [employer].; [employer] 12-28-2018 09:51-0500 Body weight 50.8 kg Serena Zack TENSION MACHINE OPERATOR Work Phone: [employer] 12-28-2018 09:51-0500 Diastolic blood pressure 81 mm[Hg] Serena Zack TENSION MACHINE OPERATOR Work Phone: [employer].; [employer] 12-28-2018 09:51-0500 Heart rate 70 /min Serena Zack TENSION MACHINE OPERATOR Work Phone: [employer].; [employer]. 12-28-2018 09:51-0500 Systolic blood pressure 145 mm[Hg] Serena Zack TENSION MACHINE OPERATOR Work Phone: [employer].; [employer] 12-23-2017 09:42-0500 Body height 157.48 cm Serena Zack TENSION MACHINE OPERATOR Work Phone: [employer] 12-23-2017 09:42-0500 Body mass index (BMI) [Ratio] 20.3 kg/m2 Serena Zack TENSION MACHINE OPERATOR Work Phone: [employer] 12-23-2017 09:42-0500 Body surface area Derived from formula 1.49 m2 Serena Zack TENSION MACHINE OPERATOR Work Phone: [employer] 12-23-2017 09:42-0500 Body weight 50.35 kg Serena Zack TENSION MACHINE OPERATOR Work Phone: [employer].; [employer]. 12-23-2017 09:42-0500 Diastolic blood pressure 89 mm[Hg] Serena Zack TENSION MACHINE OPERATOR Work Phone: [employer].; [employer] 12-23-2017 09:42-0500 Heart rate 71 /min Serena Zack TENSION MACHINE OPERATOR Work Phone: [employer].; [employer] 12-23-2017 09:42-0500 Systolic blood pressure 148 mm[Hg] Serena Zack TENSION MACHINE OPERATOR Work Phone: [employer].; [employer] 09-19-2017 11:14-0400 Body height 157.48 cm Serena Zack TENSION MACHINE OPERATOR Work Phone: [employer].; [employer] 09-19-2017 11:14-0400 Body mass index (BMI) [Ratio] 20.12 kg/m2 Serena Zack TENSION MACHINE OPERATOR Work Phone: [employer].; [employer] 09-19-2017 11:14-0400 Body surface area Derived from formula 1.48 m2 Serena Zack TENSION MACHINE OPERATOR Work Phone: [employer].; [employer] 09-19-2017 11:14-0400 Body weight 49.9 kg Serena Zack TENSION MACHINE OPERATOR Work Phone: [employer].; [employer] 09-19-2017 11:14-0400 Diastolic blood pressure 90 mm[Hg] Serena Zack TENSION MACHINE OPERATOR Work Phone: [employer] 09-19-2017 11:14-0400 Heart rate 71 /min Serena Zack TENSION MACHINE OPERATOR Work Phone: [employer] 09-19-2017 11:14-0400 Systolic blood pressure 152 mm[Hg] Serena Zack TENSION MACHINE OPERATOR Work Phone: [employer] 09-05-2017 09:00-0400 Body height 157.48 cm Serenaakshat Dumonty TENSION MACHINE OPERATOR Work Phone: [employer].; [employer] 09-05-2017 09:00-0400 Body mass index (BMI) [Ratio] 20.48 kg/m2 Serena Zack TENSION MACHINE OPERATOR Work Phone: [employer].; [employer] 09-05-2017 09:00-0400 Body surface area Derived from formula 1.49 m2 Serena Zack TENSION MACHINE OPERATOR Work Phone: [employer].; [employer] 09-05-2017 09:00-0400 Body weight 50.8 kg Serenaakshat Dumonty TENSION MACHINE OPERATOR Work Phone: [employer].; [employer] 09-05-2017 09:00-0400 Diastolic blood pressure 83 mm[Hg] Serena Zack TENSION MACHINE OPERATOR Work Phone: [employer].; [employer] 09-05-2017 09:00-0400 Heart rate 65 /min Serena Zack TENSION MACHINE OPERATOR Work Phone: [employer].; [employer] 09-05-2017 09:00-0400 Systolic blood pressure 150 mm[Hg] Serena Zack TENSION MACHINE OPERATOR Work Phone: [employer] 08-29-2017 08:59-0400 Body height 157.48 cm Serena Dumonty TENSION MACHINE OPERATOR Work Phone: [employer].; [employer] 08-29-2017 08:59-0400 Body mass index (BMI) [Ratio] 20.48 kg/m2 Serena Zack TENSION MACHINE OPERATOR Work Phone: [employer] 08-29-2017 08:59-0400 Body surface area Derived from formula 1.49 m2 Serena Zack TENSION MACHINE OPERATOR Work Phone: [employer].; [employer]. 08-29-2017 08:59-0400 Body weight 50.8 kg Serena Zack TENSION MACHINE OPERATOR Work Phone: [employer] 08-29-2017 08:59-0400 Diastolic blood pressure 91 mm[Hg] Serena Zack TENSION MACHINE OPERATOR Work Phone: [employer] 08-29-2017 08:59-0400 Heart rate 75 /min Serena Zack TENSION MACHINE OPERATOR Work Phone: [employer] 08-29-2017 08:59-0400 Systolic blood pressure 161 mm[Hg] Serena Zack TENSION MACHINE OPERATOR Work Phone: [employer] 06-24-2017 10:32-0400 Body height 157.48 cm Serena Zack TENSION MACHINE OPERATOR Work Phone: [employer] 06-24-2017 10:32-0400 Body mass index (BMI) [Ratio] 20.3 kg/m2 Serena Zack TENSION MACHINE OPERATOR Work Phone: [employer] 06-24-2017 10:32-0400 Body surface area Derived from formula 1.49 m2 Serena Zack TENSION MACHINE OPERATOR Work Phone: [employer] 06-24-2017 10:32-0400 Body weight 50.35 kg Serena Zack TENSION MACHINE OPERATOR Work Phone: [employer].; [employer]. 06-24-2017 10:32-0400 Diastolic blood pressure 94 mm[Hg] Serena Zack TENSION MACHINE OPERATOR Work Phone: [employer].; [employer]. 06-24-2017 10:32-0400 Heart rate 77 /min Serena Zack TENSION MACHINE OPERATOR Work Phone: [employer] 06-24-2017 10:32-0400 Systolic blood pressure 175 mm[Hg] Serena Zack TENSION MACHINE OPERATOR Work Phone: [employer].; [employer] 03-24-2017 10:35-0500 Body height 157.48 cm Neilee L Vess TENSION MACHINE OPERATOR [employer] 03-24-2017 10:35-0500 Body mass index (BMI) [Ratio] 20.12 kg/m2 Neilee L Vess TENSION MACHINE OPERATOR [employer] 03-24-2017 10:35-0500 Body surface area Derived from formula 1.48 m2 Neilee L Vess TENSION MACHINE OPERATOR [employer] 03-24-2017 10:35-0500 Body weight 49.9 kg Neilee L Vess TENSION MACHINE OPERATOR [employer] 03-24-2017 10:35-0500 Diastolic blood pressure 80 mm[Hg] Neilee L Vess TENSION MACHINE OPERATOR [employer] 03-24-2017 10:35-0500 Heart rate 80 /min Neilee L Vess TENSION MACHINE OPERATOR [employer] 03-24-2017 10:35-0500 Systolic blood pressure 144 mm[Hg] Neilee L Vess TENSION MACHINE OPERATOR [employer] 12-22-2016 09:49-0500 Body height 157.48 cm Serena Zack TENSION MACHINE OPERATOR Work Phone: [employer].; [employer], [employer] 12-22-2016 09:49-0500 Body mass index (BMI) [Ratio] 21.03 kg/m2 Serena Zack TENSION MACHINE OPERATOR Work Phone: [employer].; [employer] 12-22-2016 09:49-0500 Body surface area Derived from formula 1.51 m2 Serena Zack TENSION MACHINE OPERATOR Work Phone: [employer] 12-22-2016 09:49-0500 Body weight 52.16 kg Serena Zack TENSION MACHINE OPERATOR Work Phone: [employer] 12-22-2016 09:49-0500 Diastolic blood pressure 91 mm[Hg] Serena Zack TENSION MACHINE OPERATOR Work Phone: [employer] 12-22-2016 09:49-0500 Heart rate 77 /min Serena Zack TENSION MACHINE OPERATOR Work Phone: [employer]. 12-22-2016 09:49-0500 Systolic blood pressure 148 mm[Hg] Serena Zack TENSION MACHINE OPERATOR Work Phone: [employer] 07-29-2016 09:04-0400 Body height 157.48 cm Neilee L Vess TENSION MACHINE OPERATOR [employer]. 07-29-2016 09:04-0400 Body mass index (BMI) [Ratio] 21.58 kg/m2 Neilee L Vess TENSION MACHINE OPERATOR [employer] 07-29-2016 09:04-0400 Body surface area Derived from formula 1.53 m2 Neilee L Vess TENSION MACHINE OPERATOR [employer]. 07-29-2016 09:04-0400 Body weight 53.52 kg Neilee L Vess TENSION MACHINE OPERATOR [employer]. 07-29-2016 09:04-0400 Diastolic blood pressure 85 mm[Hg] Neilee L Vess TENSION MACHINE OPERATOR [employer], [employer] 07-29-2016 09:04-0400 Heart rate 70 /min Neilee L Vess TENSION MACHINE OPERATOR [employer]. 07-29-2016 09:04-0400 Systolic blood pressure 154 mm[Hg] Neilee L Vess TENSION MACHINE OPERATOR [employer]. 12-22-2015 09:53-0500 Body height 157.48 cm Serena Zack TENSION MACHINE OPERATOR Work Phone: [employer]. 12-22-2015 09:53-0500 Body mass index (BMI) [Ratio] 23.59 kg/m2 Serena Zack TENSION MACHINE OPERATOR Work Phone: [employer].; [employer]. 12-22-2015 09:53-0500 Body surface area Derived from formula 1.59 m2 Serena Zack TENSION MACHINE OPERATOR Work Phone: [employer] [employer]. 12-22-2015 09:53-0500 Body weight 58.51 kg Serena Zack TENSION MACHINE OPERATOR Work Phone: [employer].; [employer]. 12-22-2015 09:53-0500 Diastolic blood pressure 92 mm[Hg] Serena Zack TENSION MACHINE OPERATOR Work Phone: [employer].; [employer]. 12-22-2015 09:53-0500 Heart rate 81 /min Serena Zack TENSION MACHINE OPERATOR Work Phone: [employer].; [employer]. 12-22-2015 09:53-0500 Systolic blood pressure 138 mm[Hg] Serena Zack TENSION MACHINE OPERATOR Work Phone: [employer].; [employer]. 05-19-2015 10:42-0400 Body height 157.48 cm Serena Zack TENSION MACHINE OPERATOR Work Phone: [employer].; [employer]. 05-19-2015 10:42-0400 Body mass index (BMI) [Ratio] 25.61 kg/m2 Serena Zack TENSION MACHINE OPERATOR Work Phone: [employer].; [employer]. 05-19-2015 10:42-0400 Body surface area Derived from formula 1.64 m2 Serena Zack TENSION MACHINE OPERATOR Work Phone: [employer].; [employer]. 05-19-2015 10:42-0400 Body weight 63.5 kg Esrena Zack TENSION MACHINE OPERATOR Work Phone: [employer].; [employer] 05-19-2015 10:42-0400 Diastolic blood pressure 91 mm[Hg] Serena Zack TENSION MACHINE OPERATOR Work Phone: [employer].; [employer] 05-19-2015 10:42-0400 Heart rate 71 /min Serena Zack TENSION MACHINE OPERATOR Work Phone: [employer].; [employer]. 05-19-2015 10:42-0400 Systolic blood pressure 180 mm[Hg] Serena Zack TENSION MACHINE OPERATOR Work Phone: [employer].; [employer]. 11-28-2014 10:00-0400 Body height 157.48 cm Neilee L Vess TENSION MACHINE OPERATOR [employer]. 11-28-2014 10:00-0400 Body mass index (BMI) [Ratio] 24.69 kg/m2 Neilee L Vess TENSION MACHINE OPERATOR [employer].; [employer]. 11-28-2014 10:00-0400 Body surface area Derived from formula 1.62 m2 Neilee L Vess TENSION MACHINE OPERATOR [employer].; [employer]. 11-28-2014 10:00-0400 Body weight 61.24 kg Neilee L Vess TENSION MACHINE OPERATOR [employer].; [employer]. 11-28-2014 10:00-0400 Diastolic blood pressure 78 mm[Hg] Neilee L Vess TENSION MACHINE OPERATOR [employer]. 11-28-2014 10:00-0400 Heart rate 69 /min Neilee L Vess TENSION MACHINE OPERATOR [employer]. 11-28-2014 10:00-0400 Systolic blood pressure 152 mm[Hg] Neilee L Vess TENSION MACHINE OPERATOR [employer].; [employer]. 05-29-2014 16:15-0400 Body height 157.48 cm Serena Zack TENSION MACHINE OPERATOR Work Phone: [employer].; [employer]. 05-29-2014 16:15-0400 Body mass index (BMI) [Ratio] 26.52 kg/m2 Serena Zack TENSION MACHINE OPERATOR Work Phone: [employer].; [employer]. 05-29-2014 16:15-0400 Body surface area Derived from formula 1.67 m2 Serena Zack TENSION MACHINE OPERATOR Work Phone: [employer].; [employer]. 05-29-2014 16:15-0400 Body weight 65.77 kg Serena Zack TENSION MACHINE OPERATOR Work Phone: [employer].; [employer]. 05-29-2014 16:15-0400 Diastolic blood pressure 97 mm[Hg] Serena Zack TENSION MACHINE OPERATOR Work Phone: [employer].; [employer]. 05-29-2014 16:15-0400 Heart rate 72 /min Serena Zack TENSION MACHINE OPERATOR Work Phone: [employer].; [employer]. 05-29-2014 16:15-0400 Systolic blood pressure 192 mm[Hg] Serena Zack TENSION MACHINE OPERATOR Work Phone: [employer].; [employer]. 11-22-2013 09:50-0400 Body height 157.48 cm Neilee L Vess TENSION MACHINE OPERATOR [employer]. 11-22-2013 09:50-0400 Body mass index (BMI) [Ratio] 25.97 kg/m2 Neilee L Vess TENSION MACHINE OPERATOR [employer].; [employer]. 11-22-2013 09:50-0400 Body surface area Derived from formula 1.65 m2 Neilee L Vess TENSION MACHINE OPERATOR [employer].; [employer]. 11-22-2013 09:50-0400 Body weight 64.41 kg Neilee L Vess TENSION MACHINE OPERATOR [facility], [facility].; [employer] [facility]. 11-22-2013 09:50-0400 Diastolic blood pressure 82 mm[Hg] Neilee L Vess TENSION MACHINE OPERATOR [facility], [facility].; [employer], [facility]. 11-22-2013 09:50-0400 Heart rate 75 /min Neilee L Vess TENSION MACHINE OPERATOR [facility], [facility].; [employer] [facility]. 11-22-2013 09:50-0400 Systolic blood pressure 145 mm[Hg] Neilee L Vess TENSION MACHINE OPERATOR [facility], [facility].; [employer] [facility]. 11-02-2012 13:58-0400 Body height 157.48 cm Neilee L Vess TENSION MACHINE OPERATOR [facility], [facility].; [employer]. 11-02-2012 13:58-0400 Body mass index (BMI) [Ratio] 24.69 kg/m2 Neilee L Vess TENSION MACHINE OPERATOR [facility], [facility].; [employer] [facility]. 11-02-2012 13:58-0400 Body surface area Derived from formula 1.62 m2 Neilee L Vess TENSION MACHINE OPERATOR [facility], [facility].; [employer] [facility]. 11-02-2012 13:58-0400 Body weight 61.24 kg Neilee L Vess TENSION MACHINE OPERATOR [facility], [facility].; [employer] [facility]. 11-02-2012 13:58-0400 Diastolic blood pressure 83 mm[Hg] Neilee L Vess TENSION MACHINE OPERATOR [facility], [facility].; [employer] [facility]. 11-02-2012 13:58-0400 Heart rate 65 /min Neilee L Vess TENSION MACHINE OPERATOR [facility].; [employer]. 11-02-2012 13:58-0400 Systolic blood pressure 169 mm[Hg] Neilee L Vess TENSION MACHINE OPERATOR [facility] [employer] [facility].; [employer]. 09-09-2011 09:57-0400 Body height 157.48 cm Neilee L Vess TENSION MACHINE OPERATOR [employer] [employer], [facility].; [employer]. 09-09-2011 09:57-0400 Body mass index (BMI) [Ratio] 23.41 kg/m2 Neilee L Vess TENSION MACHINE OPERATOR [employer] [facility].; [employer]. 09-09-2011 09:57-0400 Body surface area Derived from formula 1.58 m2 Neilee L Vess TENSION MACHINE OPERATOR [employer].; [employer]. 09-09-2011 09:57-0400 Body weight 58.06 kg Neilee L Vess TENSION MACHINE OPERATOR [employer].; [employer]. 09-09-2011 09:57-0400 Diastolic blood pressure 79 mm[Hg] Neilee L Vess TENSION MACHINE OPERATOR [employer] [facility].; [employer]. 09-09-2011 09:57-0400 Heart rate 61 /min Neilee L Vess TENSION MACHINE OPERATOR [employer].; [employer]. 09-09-2011 09:57-0400 Systolic blood pressure 145 mm[Hg] Neilee L Vess TENSION MACHINE OPERATOR [employer].; [employer]. 08-26-2010 10:21-0400 Body height 160.02 cm Serena Zack TENSION MACHINE OPERATOR Work Phone: [employer].; [employer]. 08-26-2010 10:21-0400 Body mass index (BMI) [Ratio] 22.32 kg/m2 Serena Zack TENSION MACHINE OPERATOR Work Phone: [employer].; [employer]. 08-26-2010 10:21-0400 Body surface area Derived from formula 1.59 m2 Serena Zack TENSION MACHINE OPERATOR Work Phone: [employer].; [employer]. 08-26-2010 10:21-0400 Body weight 57.15 kg Serena Zack TENSION MACHINE OPERATOR Work Phone: [employer].; [employer]. 08-26-2010 10:21-0400 Diastolic blood pressure 81 mm[Hg] Serena Zack TENSION MACHINE OPERATOR Work Phone: [employer].; [employer]. 08-26-2010 10:21-0400 Heart rate 58 /min Serena Dixon LPN Work Phone: [facility] [employer]. 08-26-2010 10:0400 Systolic blood pressure 138 mm[Hg] Serean Dixon LPN Work Phone: [facility] [employer]. Encounters Encounter Date Encounter Type Care Provider Facility Start: 07-13-2024 End: 07-13-[address] Jose Matthews MD -[facility] Work Phone: Start: 07-13-2024 End: 07-13-[address] Joel Muniz MD Work Phone: [facility] Work Phone: Start: 07-06-2024 End: 07-06-[address] Jose Matthews MD -[facility] Work Phone: Start: 07-06-2024 End: 07-06-[address] Joel Muniz MD Work Phone: [facility] Work Phone: Start: 07-03-2024 End: 07-03-2024 Patient encounter procedure Barbara PEREIRA -[facility] Work Phone: Start: 07-03-2024 End: 07-03-[address] Joel Muniz MD Work Phone: [facility] Work Phone: Start: 07-03-2024 End: 07-03-[address] Rahul Shetty MD -[facility] Work Phone: Start: 07-03-[address] aRhul isaac MD -[facility] Work Phone: Start: 07-03-2024 End: 07-03-2024 ambulatory Rahul SAAVEDRA Facility:[facility] Start: 06-29-2024 ambulatory Rahul SAAVEDRA Facil ity:[facility] Start: 06-29-[address] Rahul isaac MD -[facility] Work Phone: Start: 06-28-2024 End: 06-28-[address] Jose Matthews MD -[facility] Work Phone: Start: 06-28-2024 End: 06-28-[address] Joel Muniz MD Work Phone: [facility] Work Phone: Start: 06-28-2024 End: 06-28-[address] Rahul Shetty MD -[facility] Work Phone: Start: 06-28-[address] Rahul isaac MD -[facility] Work Phone: Start: 06-27-2024 End: 06-28-[address] Joel Muniz MD Work Phone: [facility] Work Phone: Start: 06-27-2024 End: 06-27-[address] Rahul Shetty MD -[facility] Work Phone: Start: 06-27-[address] Rahul isaac MD -[facility] Work Phone: Start: 06-27-2024 End: 06-27-2024 ambulatory Rahul SAAVEDRA Facility:[facility] Start: 06-25-2024 End: 06-26-2024 Emergency department patient visit Dr. Joel Muniz MD Work Phone: -Emergency Department Work Phone: Start: 03-07-2024 ambulatory Chico Gallegosi ty:[facility] Start: 02-06-2024 End: 02-06-2024 Chico Collier MD Work Phone: [facility] Start: 12-10-2023 ambulatory Chico Nando Facili ty:[facility] Start: 2023 End: 2023 Chico Collier MD Work Phone: [facility] Start: 04-07-2023 End: 04-07-2023 ambulatory [facility] Work Phone: Start: 04-07-2023 End: 04-07-2023 Patient encounter procedure [facility]-Cat [facility], [facility] Work Phone: Start: 03-15-2023 End: 03-15-2023 Chico Collier MD Work Phone: [place] Start: 03-15-2023 Chico mercado MD Work Phone: [place] Start: 03-09-2023 End: 03-09-2023 Chico Collier MD Work Phone: [place] Start: 02-15-2023 End: 03-03-2023 Evaluation and management of inpatient STAN GARCIA DO Facility:[facility] Start: 02-15-2023 End: 03-03-2023 Evaluation and management of inpatient STAN BARRETTJUANIS HENLEY [facility] Start: 02-15-[address] CHICO COLLIER MD Facility:[facility] Start: 02-08-2023 End: 02-15-2023 Evaluation and management of inpatient DR CHICO COLLIER MD Facility:[facility] Start: 02-08-2023 End: 02-15-2023 Evaluation and management of inpatient DR KATINA VALDIVIA MD [facility] Start: 02-08-2023 End: 02-08-2023 Emergency department patient visit GREY CONNOR [place] Start: 01-27-2023 End: 01-27-2023 Chico Collier MD Work Phone: [facility] Start: 01-26-2023 End: 01-26-2023 ambulatory CHICO [facility] Start: 01-26-2023 End: 01-26-2023 Office outpatient visit 15 minutes Chico Collier MD Work Phone: [place] Start: 01-12-2023 End: 01-14-2023 Patient encounter status Chico Collier MD Work Phone: [place] Start: 01-12-2023 End: 01-14-2023 Chico Collier MD Work Phone: [place] Start: 12-27-2022 End: 12-27-2022 Chico Collier MD Work Phone: [place] Start: 12-08-2022 End: 12-14-2022 Chico Collier MD Work Phone: [place] Start: 06-14-2022 End: 06-14-2022 Chico Collier MD Work Phone: [place] Start: 06-10-2022 End: 06-11-2022 Emergency department patient visit [facility] Start: 05-21-2022 End: 05-21-2022 Chico Collier MD Work Phone: [place] Start: 05-19-2022 End: 05-19-2022 Chico Collier MD Work Phone: [place] Start: 05-19-2022 End: 05-19-2022 ambulatory [facility] Start: 05-05-2022 End: 05-06-2022 Chico Collier MD Work Phone: [place] Start: 04-30-2022 End: 04-30-2022 Chico Collier MD Work Phone: [place] Start: 04-24-2022 End: 04-24-2022 Emergency department patient visit [facility] Start: 01-28-2022 End: 01-28-2022 Chico Collier MD Work Phone: [place] Start: 01-06-2022 End: 01-06-2022 Patient encounter status Chico Collier MD Work Phone: [place]; [employer]. Start: 01-06-2022 End: 01-06-2022 Chico Collier MD Work Phone: [place] Start: 12-28-2021 End: 12-28-2021 Chico Collier MD Work Phone: [place] Start: 12-24-2021 End: 12-24-2021 Chico Collier MD Work Phone: [place] Start: 11-18-2021 End: 11-18-2021 Chico Collier MD Work Phone: [place] Start: 11-16-2021 End: 11-18-2021 Chico Collier MD Work Phone: [employer]. Start: 07-08-2021 End: 07-08-2021 Chico Collier MD Work Phone: [place] Start: 01-05-2021 End: 01-05-2021 Patient encounter status Chico Collier MD Work Phone: [place]; [employer]. Start: 01-05-2021 End: 01-05-2021 Chico Collier MD Work Phone: [place] Start: 08-06-2020 End: 08-06-2020 Chico Collier MD Work Phone: [place] Start: 07-28-2020 End: 07-28-2020 Chico Collier MD Work Phone: [place] Start: 07-28-2020 End: 07-28-2020 Chico Collier MD Work Phone: [place] Start: 06-30-2020 End: 06-30-2020 Chico Collier MD Work Phone: [place] Start: 12-31-2019 End: 12-31-2019 Patient encounter status Serena Dixon LPN Work Phone: [place]; [employer]. Start: 12-31-2019 End: 12-31-2019 Chico Collier MD Work Phone: [place] Start: 12-24-2019 End: 12-24-2019 Chico Collier MD Work Phone: [place] Start: 11-27-2019 End: 11-28-2019 Chico Collier MD Work Phone: [place] Start: 10-01-2019 End: 10-01-2019 Preprocedural examination done Chico Collier MD Work Phone: [place] Start: 10-01-2019 End: 10-01-2019 Chico Collier MD Work Phone: [place] Start: 06-28-2019 End: 06-28-2019 Office outpatient visit 25 minutes Chico Collier MD Work Phone: [place] Start: 06-28-2019 End: 06-28-2019 Chico Collier MD Work Phone: [place] Start: 12-28-2018 End: 12-28-2018 Patient encounter status Chico Collier MD Work Phone: [place] Start: 12-28-2018 End: 12-28-2018 Chico Collier MD Work Phone: [place] Start: 12-22-2018 End: 12-22-2018 Chico Collier MD Work Phone: [employer]. Start: 11-23-2018 End: 11-24-2018 Chico Collier MD Work Phone: [place] Start: 12-23-2017 End: 12-23-2017 Patient encounter status Chico Collier MD Work Phone: [employer]. Start: 12-23-2017 End: 12-23-2017 Chico Collier MD Work Phone: [employer]. Start: 12-14-2017 End: 12-14-2017 Chico Collier MD Work Phone: [employer]. Start: 11-17-2017 End: 11-17-2017 Chico Collier MD Work Phone: [place] Start: 09-19-2017 End: 09-19-2017 Chico Collier MD Work Phone: [place] Start: 09-05-2017 End: 09-05-2017 Chico Collier MD Work Phone: [employer]. Start: 08-29-2017 End: 08-29-2017 Chico Collier MD Work Phone: [place] Start: 06-24-2017 End: 06-24-2017 Chico Collier MD Work Phone: [employer]. Start: 06-09-2017 End: 06-09-2017 Chico Collier MD Work Phone: [place] Start: 03-25-2017 End: 03-25-2017 Chico Collier MD Work Phone: [employer]. Start: 03-24-2017 End: 03-24-2017 Chico Collier MD Work Phone: [place] Start: 12-23-2016 End: 12-23-2016 Chico Collier MD Work Phone: [place] Start: 12-22-2016 End: 12-22-2016 Patient encounter status Chico Collier MD Work Phone: [employer]. Start: 12-22-2016 End: 12-22-2016 Chico Collier MD Work Phone: [place] Start: 12-13-2016 End: 12-13-2016 Chico Collier MD Work Phone: [place] Start: 11-05-2016 End: 11-08-2016 Chico Collier MD Work Phone: [employer]. Start: 08-06-2016 End: 08-06-2016 Chico Collier MD Work Phone: [place] Start: 07-29-2016 End: 07-29-2016 Chico Collier MD Work Phone: [place] Start: 12-22-2015 End: 12-22-2015 Patient encounter status Chico Collier MD Work Phone: [employer]. Start: 12-22-2015 End: 12-22-2015 Chico Collier MD Work Phone: [place] Start: 12-03-2015 End: 12-03-2015 Chico Collier MD Work Phone: [employer]. Start: 11-03-2015 End: 11-03-2015 Chico Collier MD Work Phone: [place] Start: 11-03-2015 End: 11-03-2015 Chico Collier MD Work Phone: [place] Start: 06-11-2015 End: 06-11-2015 Chico Collier MD Work Phone: [place] Start: 06-06-2015 End: 06-06-2015 Chico Collier MD Work Phone: [place] Start: 05-28-2015 End: 05-28-2015 Chico Collier MD Work Phone: [employer]. Start: 05-19-2015 End: 05-19-2015 Chico Collier MD Work Phone: [place] Start: 11-28-2014 End: 11-28-2014 Patient encounter status Chico Collier MD Work Phone: [employer].; [employer]. Start: 11-28-2014 End: 11-28-2014 Chico Collier MD Work Phone: [place] Start: 11-27-2014 End: 11-27-2014 Chico Collier MD Work Phone: [place] Start: 11-21-2014 End: 11-21-2014 Chico Collier MD Work Phone: [place] Start: 10-30-2014 End: 10-31-2014 Chico Collier MD Work Phone: [employer]. Start: 10-30-2014 End: 10-30-2014 Chico Collier MD Work Phone: [place] Start: 05-29-2014 End: 06-20-2014 Chico Collier MD Work Phone: [employer]. Start: 11-22-2013 End: 11-22-2013 Patient encounter status Chico Collier MD Work Phone: [employer].; [employer]. Start: 11-22-2013 End: 11-22-2013 Chico Collier MD Work Phone: [place] Start: 11-14-2013 End: 11-14-2013 Chico Collier MD Work Phone: [employer]. Start: 10-23-2013 End: 10-24-2013 Chico Collier MD Work Phone: [employer] Start: 11-02-2012 End: 11-02-2012 Routine gynecological examination Chico Collier MD Work Phone: [facility]; [employer]. Start: 11-02-2012 End: 11-02-2012 Chico Collier MD Work Phone: [employer]. Start: 10-23-2012 End: 10-23-2012 Chico Collier MD Work Phone: [place] Start: 10-05-2012 End: 10-05-2012 Chico Collier MD Work Phone: [employer]. Start: 03-17-2012 End: 03-17-2012 Chico Collier MD Work Phone: [place] Start: 03-13-2012 End: 03-13-2012 Chico Collier MD Work Phone: [place] Start: 10-14-2011 End: 10-14-2011 Chico Collier MD Work Phone: [employer]. Start: 10-13-2011 End: 10-13-2011 Chico Collier MD Work Phone: [place] Start: 09-09-2011 End: 09-09-2011 Chico Collier MD Work Phone: [employer]. Start: 08-06-2011 End: 08-06-2011 Chcio Collier MD Work Phone: [place] Start: 03-05-2011 End: 03-05-2011 Chico Collier MD Work Phone: [place] Start: 02-26-2011 End: 02-26-2011 Chico Collier MD Work Phone: [place] Start: 02-22-2011 End: 02-22-2011 Chico Collier MD Work Phone: [place] Start: 08-26-2010 End: 08-26-2010 Routine gynecological examination Chico Collier MD Work Phone: [employer]; [employer]. Start: 08-26-2010 End: 08-26-2010 Chico Collier MD Work Phone: [place] Start: 07-09-2010 End: 07-09-2010 Routine general medical examination at a [facility] Chico Collier MD Work Phone: [employer].; [employer]. Start: 07-09-2010 End: 07-09-2010 Chico Collier MD Work Phone: [employer] Patient encounter status Serena Dixon LPN Work Phone: [place]; [employer] Patient encounter status Serena Dixon LPN Work Phone: [employer] Procedures Date Procedure Procedure Detail Performing Clinician [...] Comment: URIN ALYSIS Performed By: #### [id number] ####[place],[address] [place] [address] Start: 01-26-2023 End: 01-26-2023 Radex hand minimum [...] Phone: Start: 01-05-2021 End: 01-05-2021 Depression screening Chioc Collier MD Work Phone: Start: 01-05-2021 End: [...] End: 01-04-2017 Bone density scan Serena Dixon TENSION MACHINE OPERATOR Work Phone: Start: 12-22-2016 End: 12-22-2016 Current [...] Screening mammography bi 2-view breast inc cad Cihco Collier MD Work Phone: Start: 08-07-2016 End: [...] examination of cervical Papanicolaou smear Serena Dixon TENSION MACHINE OPERATOR Work Phone: Start: 02-08-1996 End: 02-08-1996 Screening colonoscopy Tavia Leavitt TENSION MACHINE OPERATOR Cholecystectomy Serena Dixon TENSION MACHINE OPERATOR Work Phone: H/O: hysterectomy Obi Moran on TENSION MACHINE OPERATOR H/O: hysterectomy Chico leonard MD Work Phone: H/O: hysterectomy Chico leonard MD Work Phone: H/O: hysterectomy Chico leonard MD Work Phone: H/O: hysterectomy Chico leonard MD Work Phone: H/O: hysterectomy Serena Pablo hy TENSION MACHINE OPERATOR Work Phone: History of cataract extraction Obi Hardeep TENSION MACHINE OPERATOR History of cataract extraction Chico Collier MD Work Phone: History of cataract extraction Serena Dixon TENSION MACHINE OPERATOR Work Phone: History of cholecystectomy Sofia Collier MD Work Phone: Total hysterectomy Serena Quinteros chi TENSION MACHINE OPERATOR Work Phone: Vaccine refused by patient A gretchendeloris Meier TENSION MACHINE OPERATOR Vaccine refused by patient Sofia Collier MD Work Phone: Vaccine refused by patient Sofia Collier MD Work Phone: Vaccine refused by patient Sofia Collier MD Work Phone: Vaccine refused by patient Sofia Collier MD Work Phone: Vaccine refused by patient Rosalba Dixon TENSION MACHINE OPERATOR Work Phone: Plan of Treatment Date Care Activity Detail Author Start: 06-26-2024 [facility] Start: 06-25-2024 Simple rpr scalp/neck/ax/genit/trunk 7.6-12.5cm RPR S/N/AX/GEN/TRK7.6-12. 5CM [facility] Start: 2023 Blood count complete auto&auto difrntl wbc [facility], [facility].; [facility], [employer]. Start: 2023 Comprehensive metabo lic panel [facility].; [facility]. Start: 2023 [facility]id [facility].; [employer] Start: 2023 Screening mammograph y bi 2-view breast inc cad [facility].; [facility], [facility]. Start: 01-26-2023 Radex hand minimum 3 views [facility].; [employer], [facility]. Start: 12-08-2022 Screening mammograph y bi 2-view breast [facility] cad [facility].; [facility]. Start: 12-24-2021 Screening mammograph y bi 2-view breast [facility] cad [facility], [employer]. CBC W Auto Different ial panel - Blood [facility] Patient Education ED [place], All Closures [facility] Work Phone: Patient referral [facility] Work Phone: Immunizations Immunization Date Immunization Notes Care Provider [facility] 06-25-2024 tetanus toxoid, reduced diphtheria toxoid, and acellular pertussis vaccine, adsorbed Dr. Joel Muniz MD Work Phone: [facility] 04-10-2020 Chico thakkar MD Work Phone: [facility].; [facility]. 03-13-2020 Chico thakkar MD Work Phone: [facility].; [facility]. 11-22-2013 Chico thakkar MD Work Phone: [facility].; [facility]. 11-22-2013 influenza, seasonal, injectable Chico Collier MD Work Phone: [facility].; [facility] [facility]. 06-06-2006 tetanus toxoid, reduced diphtheria toxoid, and acellular pertussis vaccine, adsorbed Chico Collier MD Work Phone: [facility]; [facility] NEGATED: Highlighted row has not occurred! influenza, injectable, quadrivalent, contains preservative Chico Collier MD Work Phone: [facility]; [facility] NEGATED: Highlighted row has not occurred! pneumococcal conjugate vaccine, 13 valent Chico Collier MD Work Phone: [facility]; [facility] NEGATED: Highlighted row has not occurred! pneumococcal polysaccharide vaccine, 23 valent Chico Collier MD Work Phone: [facility]; [facility] NEGATED: Highlighted row has not occurred! zoster vaccine, live Chico Collier MD Work Phone: [facility]; [facility] Payers Date Payer Category Payer Self-pay 2022 Medicare [id number] 2022 Unknown [id number] 1945 Unknown [id number] 2.16.8 40.1.821296.3.579.2.651 1945 Unknown [id number] 2.16.8 40.1.479992.3.579.2.651 1945 Unknown [id number] 2.16.84 0.1.247924.3.579.2.651 1945 Unknown [id number] 2.16.84 0.1.995134.3.579.2.651 1945 Unknown [id number] 2.16.84 0.1.104272.3.579.2.651 1945 Unknown [id number] 2.16.8 40.1.893983.3.579.2.627 1945 Unknown [id number] 2.16.8 40.1.759664.3.579.2.627 1945 Unknown [id number] 2.16.8 40.1.192252.3.579.2.627 Unknown Unknown [id number] 2.16.8 40.1.406493.3.579.2.462 Unknown [id number] 2.16.8 40.1.001972.3.579.2.462 Unknown [id number] 2.16.8 40.1.965082.3.579.2.462 Unknown [id number] 2.16.8 40.1.813212.3.579.2.462 Unknown [id number] 2.16.8 40.1.407626.3.579.2.462 Unknown [id number] 2.16.8 40.1.731790.3.579.2.462 Unknown [id number] 2.16.8 40.1.652851.3.579.2.462 Unknown [id number] 2.16.8 40.1.619801.3.579.2.462 Unknown [id number] 2.16.8 40.1.360265.3.579.2.462 Unknown [id number] 2.16.8 40.1.695569.3.579.2.462 Unknown [id number] 2.16.8 40.1.035045.3.579.2.462 Social History Date Type Detail Facility [facility].; [facility], [facility]. Retired. [facility] [employer] [facility].; [facility], [facility]. Tobacco smoking status No Smokin g Status Entered [facility] Start: 1945 Sex Assigned At Female A [facility] Start: 06-25-2024 End: 07-03-2024 Tobacco smoking status DCIS Never smoked tobacco (finding) [facility] Functional Status Date Assessment Result Facility 03-03-2023 Functional Status Room check performed [facility] 03-02-2023 Functional Status [facility] 03-02-2023 Functional Status [facility] 03-02-2023 Functional Status [facility] 03-02-2023 Functional Status 12 [facility] 03-01-2023 Functional Status [facility] 03-01-2023 Functional Status [facility] 03-01-2023 Functional Status [facility] 02-28-2023 Functional Status [facility] 02-28-2023 Functional Status [facility] 02-28-2023 Functional Status [facility] 02-28-2023 Functional Status [facility] 02-27-2023 Functional Status [facility] 02-25-2023 Functional Status Antiembolism S tocking Off/Removed bilateral knee high [facility] 02-24-2023 [facility] Functional Status 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 - 02/09/23 [facility] 02-23-2023 Functional Status [facility] 02-22-2023 Functional Status Evening Snack Percent 1 00 [facility] 02-22-2023 Functional Status Hospital bed [facility] 02-21-2023 [facility] 02-20-2023 Functional Status Orthotics, Device Worn Per Schedule Yes [facility] 02-19-2023 [facility] Status [facility] 02-18-2023 [facility] 02[facility]18-2023 [facility] 02-17-2023 Functional Status Independent [facility] 02-17-2023 [facility] Status [facility] 02-16-2023 Functional Status Personal ADL [facility] 02-15-2023 Functional Status Sensory Deficits None A [facility] 02-15-2023 Functional Status Up to Chair Returned to bed [facility] 02-15-2023 Functional Status Room check performed [facility] 02-15-2023 Functional Status Supervised 1 [facility] toño 02-15-2023 Functional Status [facility] 02-15-2023 Functional Status Valid [place]m Slip N/A [facility] 02-15-2023 Functional Status [facility] 02-14-2023 Functional Status bilateral knee high sabas lied/on [facility] 02-14-2023 Functional Status [facility] 02-14-2023 Functional [facility] 02-14-2023 Functional Status [facility] 02-14-2023 Functional Status 7pm-7am [facility] 02-14-2023 Functional Status [facility] 02-13-2023 Functional Status [facility] 02-12-2023 Functional Status [facility] 02-12-2023 Functional Status [facility] 02-12-2023 Functional Status [facility] 02-11-2023 Functional Status [facility] 02-11-2023 Functional Status [facility] 02-10-2023 Functional Status [facility] 02-10-2023 Functional Status [facility] 02-10-2023 Functional Status 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 - 02/09/23 Daughter not present at time of OT evaluation but patient was better able to provide history this date and most 6 [facility] 02-10-2023 Functional Status Mod A [facility] 02-09-2023 Functional Status Sensory Deficits None A [facility] 02-09-2023 Functional Status Living Situation [facility] 02-09-2023 [facility] Mental Status Date Assessment Result Facility 03-03-2023 Mental Status Oriented x 4 [facility] wn 03-02-2023 Mental Status [facility] wn 03-02-2023 Mental Status [facility][1] wn 02-26-2023 Mental Status [facility] wn 02-15-2023 Mental Status [facility]ed x 4 [facility] 02-15-2023 [facility]-14[facility]14[facility] Status [facility] Clinical Notes 02-08-2023 to 07-03-2024 Note Date & Type Note Facility 07-03-2024 Progress note [facility] 06-28-2024 Evaluation note Diagnosis Onset Date Resolution Laceration of forearm, left acute June 28, 2024 2 :25pm Anemia acute July 03, 2024 9:56am Occult blood positive stool acute July 03, 2024 9 :56am [facility] Work Phone: 1(784) 607-515705-22-2025 Evaluation note* Diagnosis Onset Date Resolution Status Admit Date Laceration of forearm, left inactive June 28, 2024 2:25pm Anemia acute July 03, 2024 9:56am Occult blood positive stool acute July 03, 2024 9:56am [facility] Work Phone: 1(811) 702-493005-22-2025 Evaluation note* Diagnosis Onset Date Resolution Status Admit Date Laceration of forearm, left inactive June 28, 2024 2:25pm Anemia acute July 03, 2024 9:56am Occult blood positive stool acute July 03, 2024 9:56am Laceration of forearm, left inactive July 06, 2024 2:14pm [facility] Work Phone: 1(350) 264-712305-22-2025 Evaluation note* Diagnosis Onset Date Resolution Status Admit Date Laceration of forearm, left inactive June 28, 2024 2:25pm Anemia acute July 03, 2024 9:56am Occult blood positive stool acute July 03, 2024 9:56am Laceration of forearm, left inactive July 06, 2024 2:14pm Laceration of forearm, left inactive July 13, 2024 1:56pm [facility] Work Phone: 1(171) 728-278805-19-2025 Radiology Diagnostic study note [facility] Imaging Services [address] [place] [address] Forearm 2 Views MR#: [id number] Acct: [id number] Name: ROSARIO MCNALLY Rep #: [id number] : 1945 F 78 From: Jess Rondon MD PCP: Dr. Yahaira Winn MD Status: REG ER Study:Forearm 2 Views Date of Exam: 06/07 11/01 Exam# [id number] Ordering Dr: Sofia Muniz MD PROCEDURE: FOREARM [...] Mild osteopenia slightly limits thisevaluation. Reading Location: [id number] CC: Dr. Yahaira Winn MD; Dr. Joel Muniz MD ~ Machinist Wood: Signed [facility]01-25-2024 Nurse Progress note Nursing GG Entered On: 03/03/2023 9:32 EST Performed On: 03/03/2023 9:32 EST by Myrna West LPN Nursing GG's OT GG Grid Eating : Independent Myrna West LPN - 03/03/2023 9:32 EST Digitally Signed by Myrna West LPN on 03/03/2023 09:32 AM [facility] MatosHckjktkh38-08-7424 Note Discharge Instructions Thank you for allowing [...] EST Why: Orthopedic follow up - Where: [facility] [address] [place] [phone]- [phone] Follow Up with CHELSEA MARIN PA-C When 03/17/2023 12:10 PM EST Why: Neurology follow up - Where: [address] [place] [address]- [phone] Follow Up with CHICO COLLIER MD When 03/09/2023 01:40 PM EST Why: Take Discharge Instructions to Dr Billy - Where: [address] [place] [address]- [phone] Follow Up with URIAH BOCANEGRA MD, Neurosurgery When Only if needed Why: Neurosurgeon - Where: [address] [facility] [address] [facility] [address]- [phone] The Following Activity and Diet Have Been [...] Ordered -- 03/03/23 10:00:00 EST, TRACI LANCE APRN-MANAGER GAMING Transfer of Care Prognosis - Ordered -- [...] by mouth Once a day Pickup at [facility] 1724 Unchanged carbidopa-levodopa (carbidopa-levodopa 25 mg-100 mg oral tablet) 1 tab(s) by mouth Four (4) times a day Pickup at [facility] 1724 Unchanged escitalopram (escitalopram 10 mg oral tablet) 1 tab(s) by mouth Once a day Pickup at [facility] 1724 Unchanged midodrine (midodrine 5 mg oral tablet) 1 tab(s) by mouth Three (3) times a day Pickup at [facility] 1724 Pharmacy Information [facility] 1724: [address] [place], [place] [phone] What How Much When Comments Stop Taking [...] Follow these instructions at home: Medicines Take skhp-hwg-xfvtrsc and prescription medicines only as told by [...] 05/21/2013 Document Revised: 01/06/2018 Document Reviewed: 11/03/2017 [employer] mum Patient Education 2020 [employer]. Additional Information VACCINATE! IT SAVES LIVES! Members of the community who have not yet received the COVID-19 vaccine and would like to receive it can visit one of [facility] vaccine clinics. There are many vaccine clinic locations within the [facility]. For locations and available times, please visit [email or web address].coronavirus.[place].gov/. It is important to note that some COVID mobile vaccine clinics are held outdoors and may be canceled in rainy or stormy conditions. To learn more about pediatric vaccinations (ages 5-11), we invite you to visit the [employer] [facility] webpage. https://www.[employer]s.org/pages/7897-Atzpy-Varuyrujugv-Gakihymkgb-Vuskc-Vix stions.htmlTo learn more about the COVID-19 vaccine, we invite you to visit the CDC website for a list of frequently asked questions.https://www.cdc.gov/coronavirus/2019-ncov/vaccines/faq.html [employer] Patient Portal Access Instructions: Stay connected with your healthcare team and access your personal medical information anytime with the [employer] Patient Portal. Please follow the directions below to create your [employer] account: 1.Access the email account you provided upon registration to the hospital/physician office.2.Look for an invitation email from [facility].3.Open the email and access the invitation link: AcceptInvitation to [employer].4.Fill in the required lujan to create your account. To access your account, visit [email or web address]. Click the blue button labeled Access Patient [...] who you will allowto register on the [facility] Patient Portal for access to your information. You can also access the [facility] Patient Portal on the [facility] sabas. Simply click on Patient Portal and then log into your account. If you would like to receive a full copy of your medical records, please contact the [facility] Medical Records Department by calling [phone], Tuesday through Tuesday between 8 a.m. and [...] Call your local pharmacy or go to [email or web address] to find one close to you.3.Make use of household items: Use cat litter or old coffee grounds to dispose medications if other options arenot available. Mix your drugs with these household products, seal them in an airtight container andthrow it into the garbage. Call [facility]: [phone] to be sure your drugs can be [...] COPY. Signatures Patient Education Materials Subarachnoid Hemorrhage, Ibcs-zb-Wutz Medication Leaflets My discharge plan and instructions have been reviewed and explained to me and I,ROSARIO MCNALLY understand my current condition and have read and understand these discharge instructions. I have received a written copy of the plan/instructions. If I have questions, I am aware that I should contact my doctor. Patient/Upper Shaper Signature: Date/Time: Relationship to Patient: Witness Name/Signature: Date/Time: [facility] [id number] Nurse Progress note Nursing GG Entered On: 03/02/2023 22:09 EST Performed On: 03/02/2023 22:09 EST by Saima Young LPN Nursing GG's OT GG Grid Eating : Independent Saima Young LPN - 03/02/2023 22:09 EST Digitally Signed by Saima Young LPN on 03/02/2023 10:09 PM [facility] [id number] Hospital Discharge instructions Patient Education 03/02/2023 18:57:13 Subarachnoid Hemorrhage, Ylpy-ij-Vbuf Subarachnoid Hemorrhage Subarachnoid hemorrhage is bleeding between [...] Follow these instructions at home: Medicines Take kxry-ipt-cyituth and prescription medicines only as told by [...] 05/21/2013 Document Revised: 01/06/2018 Document Reviewed: 11/03/2017 [employer] Patient Education 2020 [employer] Follow Up Care 02/15/2023 16:57:34 With:URIAH BOCANEGRA MD, Neurosurgery Address: [address] [facility] [address] [place] [phone] When: only if needed Comments:Neurosurgeon - With:CHICO COLLIER MD Address: [address] [place] [address]- [phone] When:03/09/2023 13:40:00 Comments:Take Discharge Instructions to Dr Visit - With:CHELSEA MARIN PA-C [address] [place] [address]- [phone] When:03/17/2023 12:10:00 Comments:Neurology follow up - With:CHICO ELIZONDO MD, Orthopedic Address: [facility] [address] [address]- [phone] When:03/25/2023 14:00:00 Comments:Orthopedic follow up - Everettsejal Singer 01-24-2024 Nurse Progress note Nursing GG Entered On: 03/02/2023 11:33 EST Performed On: 03/02/2023 11:33 EST by Myrna West LPN Nursing GG's OT GG Grid Eating : Independent Myrna West LPN - 03/02/2023 11:33 EST Digitally Signed by Myrna West LPN on 03/02/2023 11:33 AM [facility]ev[facility]zd45-[facility]-4331 Physical medicine and rehab Progress note Rehab Note Chief Complaint: Seeing this patient for reevaluation of therapy progress and subarachnoid hemorrhage, right wrist fracture History of Present Illness: Seeing this patient for reevaluation of therapy and subarachnoid hemorrhage. Patient participates in acute inpatient rehabilitation with PT, OT and ST services. 77-year-old female admitted to [facility] from [facility] stay 02/08 - 02/15 who is past medical history of Parkinson's, hypertension, lipidemia, depression, and right lower extremity weakness who [facility] and [facility] to [facility] after imaging showed subarachnoid hemorrhage. Patient reported [...] Goal is to transition to SNF in [place]. Denies any concerns about discharge. Tentative discharge [...] Rate80(MAR 01 20:32)80(MAR 01 20:32)80(MAR 01 20:32) SIE044(MAR 02 05:43)111(MAR 01 08:55)H 152(MAR 01 20:32) [...] ADLs and self-care. Plan respite ECF at [facility] with long-term goal return back home with [...] GARCIA DO on 03/02/2023 01:44 PM [facility] [id number] Note Subjective Patient states she is doing [...] right upper extremity, neurovascular check intact. 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 Patient status post hospitalizationat [facility] from 02/08 - 02/15 following a [...] discharging to an extended care facility, the [facility]. Tentative discharge date 03/03/2023. Medications Medication [...] Rate84(FEB 28 21:04)84(FEB 28 18:32)84(FEB 28 18:32) RTE331(FEB 28 21:04)92(FEB 28 09:23)130(FEB 28 21:04) DBP72(FEB [...] the right wrist planning orthopedic follow-up at [facility]. Plan transition [facility] long-term goal return to supervision of daughter [...] STAN GARCIA DO on 03/01/2023 03:38 PM [facility] HospitalAqqvealu54-00-6724 Note Subjective Patient reports that she is [...] right upper extremity, neurovascular check intact. 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 Patient status post hospitalizationat [facility] from 02/08 - 02/15 following a [...] discharging to an extended care facility, the [facility]. Tentative discharge date 03/03/2023. Medications (14) [...] Rate92(FEB 27 09:19)92(FEB 27 09:19)92(FEB 27 09:19) FNY083(FEB 27 20:09)L 88(FEB 27 09:19)H 146(FEB 27 [...] on right wrist pending orthopedic follow-up with [facility] continue Plastizote splint. Plan transition to [facility] respite care March 03 ongoing home care [...] GARCIA DO on 02/28/2023 08:05 PM [facility]rett UrenaHfjzcqmv92-20-6967 Note Subjective Patient voices no acute complaints [...] right upper extremity, neurovascular check intact. 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 CONSULTING PSYCHOLOGIST: Aashish Muro, PhD. REASON FOR REFERRAL: Neuropsychological exam. HISTORY OF PRESENT ILLNESS: Ms. Mcnally is a 77-year-old right-handed white female admitted to [facility] from [facility] 02/15/2023 after falling down multiple steps. [...] Includes hypertension, hyperlipidemia, depression. No prior known GRAPHIC EDITOR injuries or illnesses other than the Parkinson's. [...] some family history. Ms. Mcnally lives in [place] with her daughter Larisa and Larisa's , [...] time tags, but thought she was in [place] at a facility called [facility]. Verbal attention span is mildly impaired limited [...] later, she recalled only 1/5 words, a smbz-vu-szbssors deficit score. EXECUTIVE FUNCTIONS: Verbal everyday reasoning based on the judgment test is intact, 8/10 points. Moderately impaired on cognitive estimates, another verbal reasoning measure, 3/6 items correct. Mildto moderately impaired on matrix reasoning, a visual reasoning measure, standard score of 5. Poor insight. Moderately slow on most tasks. CONCLUSIONS: Cognitive testing reveals pkojmaen-tc-kkpgbl deficit in verbal memory, but normal visual memory. Normal verbal everyday reasoning, but moderately impaired cognitive estimates. Ulwr-vx-oxdhfwct deficit scores on the verbal and visual [...] right occipital subarachnoid hemorrhage, status post fall. Clmc-qn-iwapdsgn cognitive deficits. 2. 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 3. Parkinson's disorder related cognitive symptoms, typically slowed thinking and attention. 4. Depression by chart review, on Lexapro. AASHISH MURO, PhD GM/NTS JOB#: [id number] DICTATION ID#: [id number] Digitally Signed by AASHISH MURO PhD on 02/23/2023 02:29 PM [facility]rett SingerXiupqeli44-28-5107 Note ORIGINAL EXAMINATION: THREE XRAY VIEWS OF [...] Locations *1: This test was performed at: [facility], [address] [place] [address], [facility] , [facility] [place]02-16-2023 Evaluation + Plan noteExtracted from: Title:Clinical Document [...] down 8-10 steps, she was transferred to [facility] after imaging showed subarachnoid hemorrhage. CT of [...] was deemed medically stable and transferred to [facility] unit for physical occupational therapies [...] with daughter single level set up. 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 Safe place to go: Yes. Lives [...] Rate18(FEB 16 04:56)18(FEB 15 16:40)18(FEB 15 16:40) ABO055(FEB 16 04:56)108(FEB 15 16:40)114(FEB 16 04:56) DBP72(FEB [...] and it is both accurate and complete. [facility] 01-10-2024 Physical medicine and rehab History [...] down 8-10 steps, she was transferred to [facility] after imaging showed subarachnoid hemorrhage. CT of [...] was deemed medically stable and transferred to [facility] inpatient rehabilitation unit for physical occupational therapies [...] with daughter single level set up. 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 Safe place to go: Yes. Lives [...] Resp Rate18(FEB 16:56)18(FEB 15 16:40)18(FEB 15 16:40) RNS577(FEB 16:56)108(FEB 15 16:40)114(FEB 16:56) DBP72(FEB 16:56)60(FEB 15 [...] described in this documentation, as described by uJlia San LPN in my presence and it is both accurate and complete. Digitally Signed by STAN GARCIA DO on 02/16/2023 01:57 PM [id number] Physical medicine and rehab Consult note INPATIENT REHAB HISTORY AND PHYSICAL CONSULTATION DATE OF ADMISSION: 02/15/2023 CC: Falls, subarachnoid hemorrhage Admission History and Physical HISTORY OF PRESENT ILLNESS: This is a 77-year-old female admitted to [facility] from [facility] stay 02/08 - 02/15 who is past medical history of Parkinson's, hypertension, lipidemia, depression, and right lower extremity weakness who originally presented to [facility] and was transferred to [facility] after imaging showed subarachnoid hemorrhage. Patient reported [...] Patient was deemed medically stable transferred to [facility] for physical and occupational therapy [...] Rate18(FEB 15 16:40)18(FEB 15 16:40)18(FEB 15 16:40) IYO324(FEB 15 16:40)108(FEB 15 16:40)108(FEB 15 16:40) DBP60(FEB [...] will follow during acute rehabilitation stay at [facility] Inpatient Rehab Care Unit with the [...] IVAN CARDENAS DO on 02/17/2023 09:27 AM [facility] [id number] Hospital Discharge instructions Patient Education 02/15/2023 13:48:18 Subarachnoid Hemorrhage, Fass-il-Xsdk Subarachnoid Hemorrhage Subarachnoid hemorrhage is bleeding between [...] Follow these instructions at home: Medicines Take hupl-rjg-bumaqyb and prescription medicines only as told by [...] 05/21/2013 Document Revised: 01/06/2018 Document Reviewed: 11/03/2017 [employer] Patient Education 2020 [employer] Follow Up Care 02/08/2023 16:21:53 With:[facility], Address:Unknown When:1-2 days With:[facility] Address: When:Within 2 Week(s) With:[facility]LLIER MD Address: [address] [place] [address] [place] [address] [phone] When:3-7 days [facility] 01-09-2024 Discharge summary Date of Service [...] hypertension, depression, and hyperlipidemia. Patient presented to [facility] with complaints of fall. Per documentation patient fell down 8-10 steps. she was found confused on walking from various rooms in the house aimlessly and turning on all the lights. CT head showed right occipital subarachnoid hemorrhage. Patient was then transferred to [facility] for further evaluation. patient was evaluated [...] and Occupational Therapy recommend patient discharge to residential facility.. Discussed with my collaborating physician Dr. [...] day. Follow Up Follow Up with [facility] [place] When In 2 weeks Where: Follow Up with CH[facility] COLLIER MD When Within 3-7 days Where: [address] [place] [address] [place] [address]- [phone] Follow Up Appointments Transfer of Care OT [...] EST Condition on Discharge Stable [facility] Provided To Patient Daughter-Larisa Time Spent 32 minutes Digitally Signed by SHEELA PORRAS on 02/15/2023 01:37 PM [id number] Note Discharge Instructions Thank you for allowing [facility] to assist you with your healthcare needs. [...] When Within 1-2 days Follow Up with [facility] When In 2 weeks Where: Follow Up with [facility] When Within 3-7 days Where: [address] [place] [address] [place] [address]- [phone] The Following Activity and Diet Have Been [...] Follow these instructions at home: Medicines Take qivg-wwq-akhzqtf and prescription medicines only as told by [...] 05/21/2013 Document Revised: 01/06/2018 Document Reviewed: 11/03/2017 [employer] mum Patient Education 2020 [employer] Additional Information VACCINATE! IT SAVES LIVES! Members of the community who have not yet received the COVID-19 vaccine and would like to receive it can visit one of [facility] vaccine clinics. There are many vaccine clinic locations within the [facility]. For locations and available times, please visit https://gettheshot.coronavirus.[place].gov/. It is important to note that some COVID mobile vaccine clinics are held outdoors and may be canceled in rainy or stormy conditions. To learn more about pediatric vaccinations (ages 5-11), we invite you to visit the [facility] webpage. https://www.[facility].org/pages/2604-Petuk-Frvgolwcwwz-Aasohdfvpz-Nkysl-Yoy stions.htmlTo learn more about the COVID-19 vaccine, we invite you to visit the CDC website for a list of frequently asked questions.https://www.cdc.gov/coronavirus/2019-ncov/vaccines/faq.html [facility] [employer] Patient Portal Access Instructions: Stay connected with your healthcare team and access your personal medical information anytime with the [facility] Patient Portal. Please follow the directions below to create your [facility] account: 1.Access the email account you provided upon registration to the hospital/physician office.2.Look for an invitation email from [facility].3.Open the email and access the invitation link: AcceptInvitation to [facility].4.Fill in the required lujan to create your account. To access your account, visit [email or web address]. Click the blue button labeled Access Patient Portal and then log in with the username and password that you created in the steps above. You will be able to view your test results, lab results, a summary of your visits, upcoming appointments and more. There is also a convenient messaging option where you can send secure messages to your [employer]. In addition, you will have the ability to download any documents or summaries to your computer and/or send the information securely to a physician. Remember that your healthcare information is confidential, so carefully consider who you will allowto register on the [facility] Patient Portal for access to your information. You can also access the [facility] Patient Portal on the [facility] sabas. Simply click on Patient Portal and then log into your account. If you would like to receive a full copy of your medical records, please contact the [facility] Medical Records Department by calling [phone], Tuesday through Tuesday between 8 a.m. and [...] Call your local pharmacy or go to http://bit.MD Revolution/0B1Em8e to find one close to you.3.Make use of household items: Use cat litter or old coffee grounds to dispose medications if other options arenot available. Mix your drugs with these household products, seal them in an airtight container andthrow it into the garbage. Call [facility]: [phone] to be sure your drugs can be [...] COPY. Signatures Patient Education Materials Subarachnoid Hemorrhage, Hods-pr-Gyua Medication Leaflets My discharge plan and instructions have been reviewed and explained to me and IDALI CONNIE L understand my current condition and have read and understand these discharge instructions. I have received a written copy of the plan/instructions. If I have questions, I am aware that I should contact my doctor. Patient/Upper Shaper Signature: Date/Time: Relationship to Patient: Witness Name/Signature: Date/Time: [facility] [id number] Note Discharge Instructions Thank you for allowing [...] When Within 1-2 days [facility] When In 2 weeks Where: Follow Up with CHICO COLLIER MD When Within 3-7 days Where: [address] [place] [address] [place] [address]- [phone] The Following Activity and Diet Have Been [...] to receive it can visit one of [facility] vaccine clinics. There are many vaccine clinic locations within the [facility]. For locations and available times, please visit https://gettheshot.coronavirus.[place].gov/. It is important to note that some COVID mobile vaccine clinics are held outdoors and may be canceled in rainy or stormy conditions. To learn more about pediatric vaccinations (ages 5-11), we invite you to visit the [facility] webpage. https://www.[facility].org/pages/6278-Xhoal-Xcgxitkpaba-Ewlyzszmrq-Dfjqd-Rdv stions.htmlTo learn more about the COVID-19 vaccine, we invite you to visit the CDC website for a list of frequently asked questions.https://www.cdc.gov/coronavirus/2019-ncov/vaccines/faq.html [employer] Patient Portal Access Instructions: Stay connected with your healthcare team and access your personal medical information anytime with the [facility] Patient Portal. Please follow the directions below to create your [employer] account: 1.Access the email account you provided upon registration to the hospital/physician office.2.Look for an invitation email from [facility].3.Open the email and access the invitation link: AcceptInvitation to [facility].4.Fill in the required lujan to create your account. To access your account, visit Concard/[email or web address]. Click the blue button labeled Access Patient Portal and then log in with the username and password that you created in the steps above. You will be able to view your test results, lab results, a summary of your visits, upcoming appointments and more. There is also a convenient messaging option where you can send secure messages to your p ThirdMotionvider. In addition, you will have the ability to download any documents or summaries to your computer and/or send the information securely to a physician. Remember that your healthcare information is confidential, so carefully consider who you will allowto register on the [facility] Patient Portal for access to your information. You can also access the [facility] Patient Portal on the Sell[employer] Anywhere sabas. Simply click on Patient Portal and then log into your account. If you would like to receive a full copy of your medical records, please contact the [facility] Medical Records Department by calling [phone], Tuesday through Tuesday between 8 a.m. and [...] Call your local pharmacy or go to http://IWT.MD Revolution/6S1Bw0n to find one close to you.3.Make use of household items: Use cat litter or old coffee grounds to dispose medications if other options arenot available. Mix your drugs with these household products, seal them in an airtight container andthrow it into the garbage. Call [facility]: [phone] to be sure your drugs can be [...] aware that I should contact my doctor. Patient/Upper Shaper Signature: Date/Time: Relationship to Patient: Witness Name/Signature: Date/Time: [facility]-8950 Discharge summary Date of Service 02/15/23 Discharge [...] hypertension, depression, and hyperlipidemia. Patient presented to [facility] with complaints of fall. Per documentation patient fell down 8-10 steps. she was found confused on walking from various rooms in the house aimlessly and turning on all the lights. CT head showed right occipital subarachnoid hemorrhage. Patient was then transferred to [facility] for further evaluation. patient was evaluated [...] and Occupational Therapy recommend patient discharge to residential facility.. Discussed with my collaborating physician Dr. [...] day. Follow Up Follow Up with [facility] [place] When In 2 weeks Where: Follow Up with [facility] When Within 3-7 days Where: [address] [place] [address] [place] [address]- [phone] Follow Up Appointments Transfer of Care OT [...] EST Condition on Discharge Stable Discharge Disposition [facility] Information Provided To Patient Daughter-Larisa Time Spent 32 minutes Digitally Signed by SHEELA PORRAS on 02/15/2023 01:37 PM [id number] Note Date of Service 02/14/23 Chief Complaint Weakness Subjective Patient is a 77 year old female with a past medical history significant for Parkinson's disease, hypertension, depression, and hyperlipidemia. Patient presented to [facility] with complaints of fall. Per documentation patient fell down 8-10 steps. she was found confused on walking from various rooms in the house aimlessly and turning on all the lights. CT head showed right occipital subarachnoid hemorrhage. Patient was then transferred to [facility] for further evaluation. patient was evaluated [...] did call the patient's daughter (Larisa Cabral [phone]) via phone. Patient and family verbalizes understanding and are agreeable plan of care. Patient plans to be discharged to [facility] once medically optimized. Discussed with my collaborating physician Dr. Stew Ortiz This dictation was performed using voice recognition software and may include grammatical and/or spelling errors Orders: Consult to Physician Time Spent 26 minutes Digitally Signed by SHEELA PORRAS on 02/14/2023 01:18 PM [facility] [id number] Note Date of Service 1/8/24 Chief Complaint Weakness Subjective Patient is a 77 year old female with a past medical history significant for Parkinson's disease, hypertension, depression, and hyperlipidemia. Patient presented to [facility] with complaints of fall. Per documentation patient fell down 8-10 steps. she was found confused on walking from various rooms in the house aimlessly and turning on all the lights. CT head showed right occipital subarachnoid hemorrhage. Patient was then transferred to [facility] for further evaluation. patient was evaluated [...] did call the patient's daughter (Larisa Cabral [phone]) via phone. Patient and family verbalizes understanding and are agreeable plan of care. Patient plans to be discharged to [facility] once medically optimized. Discussed with my collaborating physician Dr. Stew Ortiz This dictation was performed using voice recognition software and may include grammatical and/or spelling errors Orders: Consult to Physician Time Spent 26 minutes Digitally Signed by SHEELA PORRAS APRN-NICKIE on 02/14/2023 01:18 PM [facility] [id number] Neurology Consult note Date of Service 02/13/23 Reason for Consultation Parkinson's/orthostatic hypotension Referring Physician Dr. Yates History of Present Illness Patient is a 77-year-old female with PMH of Parkinson's per daughter diagnosed 6 years ago by neurologist, and, depression, HLD, recurrent falls at home. Presented to [facility] on 02/08/2023 for evaluation after a presumed [...] appears worse in the late evening and palliative care physician. However was much worse after she hit [...] commands, Mental Status: Orientation: Oriented to person, [facility], and month Language: Normal fluency, normal simple [...] Strength: 5/5 Tone: Increased in all Coordination: Eafiru-vhem-jxmclt movements: No ataxia present Reflexes: R: L [...] PLAN: -CT brain without contrast completed at [facility] on 02/08/2023 demonstrates small subarachnoid [...] to the oncoming team. Alee Méndez MD [facility] Problem List/Past Medical History Ongoing No [...] ALEE MÉNDEZ MD on 02/13/2023 03:46 PM [id number] Note Date of Service 02/13/23 Chief Complaint Dizziness/Weakness Subjective Patient is a 77 year old female with a past medical history significant for Parkinson's disease, hypertension, depression, and hyperlipidemia. Patient presented to [facility] with complaints of fall. Per documentation patient fell down 8-10 steps. she was found confused on walking from various rooms in the house aimlessly and turning on all the lights. CT head showed right occipital subarachnoid hemorrhage. Patient was then transferred to [facility] for further evaluation. patient was evaluated [...] patient, daughter at bedside and daughter (Larisa aCbral [phone]) via phone. Patient and family verbalizes understanding and are agreeable plan of care. Discussed with my collaborating physician Dr. adelita yates This dictation was performed using voice recognition software and may include grammatical and/or spelling errors Orders: Consult to Physician Time Spent 41 minutes Digitally Signed by SHEELA PORRAS on 02/13/2023 01:23 PM Digitally Signed by SHEELA PORRAS on 02/13/2023 01:25 PM [facility] [id number] Note Date of Service 02/12/23 Chief Complaint Weakness Subjective Patient is a 77 year old female with a past medical history significant for Parkinson's disease, hypertension, depression, and hyperlipidemia. Patient presented to [facility] with complaints of fall. Per documentation patient fell down 8-10 steps. she was found confused on walking from various rooms in the house aimlessly and turning on all the lights. CT head showed right occipital subarachnoid hemorrhage. Patient was then transferred to [facility] for further evaluation. patient was evaluated [...] grammatical and/or spelling errors Collaborative Care Team [facility] Medicine Shared/split visit with Sheeal CABRAL. Patient seen and examined independently. Care discussed and coordinated by the entire care team under my direction. Discussed with daughters at bedside. Difficult balance of hypertension in the setting of SAH and severe orthostasis - both of which would be potentially catastrophic if not well treated in a rehab setting. Will need inpatient further management. Added fludrocortisone. Increased amlodipine. adelita yates md [facility] Medicine Digitally Signed by SHEELA PORRAS on 02/12/2023 02:14 PM Digitally Signed by ADELITA YATES MD FACP on 02/12/2023 04:17 PM [facility] [id number] Neurological surgery Consult note Date of Service 02/09/2023 This is a split/shared consultation with Dr. Bocanegra Reason for Consultation SAH Referring Physician Dr. Rowland History of Present Illness This is a 77-year-old female with a PMH significant for hypertension, hypercholesterolemia, Parkinson's disease with multiple falls who presented to [facility] on 02/08/2023 for evaluation after a presumed [...] For that reason, she was transferred to [facility] ED for further evaluation. History taken [...] and interpretation. CT head imaging reviewed from [facility]. Assessment/Plan Small right occipital SAH s/p fall on 02/06/2023 CT brain without contrast completed at [facility] on 02/08/2023 demonstrates small subarachnoid [...] by JEEVAN MARTINEZ on 02/09/2023 09:39 AM [facility] [id number] Neurological surgery Consult note Date of Service 02/09/2023 This is a split/shared consultation with Dr. Bocanegra Reason for Consultation SAH Referring Physician Dr. Rowland History of Present Illness This is a 77-year-old female with a PMH significant for hypertension, hypercholesterolemia, Parkinson's disease with multiple falls who presented to [facility] on 02/08/2023 for evaluation after a presumed [...] For that reason, she was transferred to [facility] ED for further evaluation. History taken [...] 02/06/2023 CT brain without contrast completed at [facility] on 02/08/2023 demonstrates small subarachnoid [...] by JEEVAN MARTINEZ on 02/09/2023 09:39 AM [facility] [id number] History and physical note Date of Service [...] REILLY ROWLAND MD on 02/08/2023 08:50 PM [facility] [id number] Note ORIGINAL EXAMINATION: CT CHEST WITH CONTRAST02/08/2023 [...] Date: 02/08/2023 10:26:14 PM Ordering Provider: LIZ [facility]01-02-2024 History and physical note Date of [...] REILLY ROWLAND MD on 02/08/2023 08:50 PM [facility] [id number] Note ORIGINAL EXAMINATION: CT OF THE CERVICAL [...] Date: 02/08/2023 6:55:16 PM Ordering Provider: LIZ [facility] [id number] Note ORIGINAL EXAMINATION: ONE XRAY VIEW OF [...] Date: 02/08/2023 6:53:03 PM Ordering Provider: LIZ [facility]01-02-2024 Evaluation + Plan noteExtracted from: Title:History [...] not yet verified. They will need reconciled [facility] Evaluation noteNo assessment information available [facility] Work Phone: Hospital course Narrative No data available for this section [facility] Hospital Discharge instructions Additional Instructions Ice [...] return to the emergency department. Tylenol for pain.[facility] Work Phone: Progress note Author Barbara Ramirez [facility] Note Date/Time July 03, 2024 11:09 am [facility] [address] [place] [address] OFFICE VISIT Date of Service: 07/03/24 MR#: [id number] Acct: [id number] Name: ROSARIO MCNALLY Rep #: [id number] : 1945 Provider: RANDALL Ramirez Age/Sex: 78/F [place] [facility] Status: Signed Intake Vital Signs 06/28/24 [...] POSITIVE HEMOCULT Chief Complaint: occult positive stools [place] Required: No Accompanied by: Caregiver Is patient in pain?: No Allergies amoxicillin (From Trimox) Allergy (Verified 07/03/24 10:13) Hives Medications ?Medication ?Instructions ?Recorded ?Confirmed ?Type acetaminophen 650 mg 650 mg PO Q8H 03/28/2307/03 History tablet,extended release atorvastatin 10 mg tablet 10 mg PO QHS 03/28/23 History bisacodyl 10 mg rectal suppository 10 mg NE DAILY PRN 03/28/23 07/03/24 History (Dulcolax (bisacodyl)) [...] testing if a lesion/cancer were found [place] [phone] ROS Const Constitutional: No fatigue, fever(s) or [...] resulting in a large left arm laceration [id number] sutures. Her hemoglobin initially dropped to 9.0 [...] I recommend repeating in one month. Note: Ten[employer]7 speech recognition call taker software was used to create portions of this document. Sound-alike and misspelled words, as well as other call taker errors may be contained in the documentation. Coding Level of Care Code Off vis,new,level 4 Diagnoses Anemia D64.9 Occult blood positive stool R19.5 Clinical Quality Measures Falls Risk Screening/Assistive Devices Have you fallen in the past year?: Yes Smoking Screening Smoking Status: Never smoker 07/03/24 1109 <Electronically signed by Barbara PEREIRA> Date _ Barbara PEREIRA Cosigner Signature: Date (if applicable) CC: ~ [facility] Work Phone: Reason for referral (narrative)No reason for referral information availableWClinton [facility] Work Phone: Summary Purpose Family History No [...] Do you have a Healthcare Power of Machine Tech? Yes June 25, 2024 9:00pm Chief Complaint and Reason for Visit Chief Complaint Personal history of other diseases of the circulat Chief Complaint Admit Date LACERATION June 25, 2024 8:54p m Chief Complaint Admit Date LACERATION June 25, 2024 8:54p m ED FOLLOW UP June 28, 2024 2:25p m RESIDENTIAL LAB WORK July 03, 2024 4:0 0am ANEMIA POSITIVE HEMOCULT July 03, 2024 9:56am Reason for Visit Admit Date Laceration of forearm, left June 28 2:25pm Anemia July 03, 2024 9:56a m Occult blood positive stool July 03 9:56am Chief Complaint Admit Date LACERATION June 25, 2024 8:54p m ED FOLLOW UP June 28, 2024 2:25p m RESIDENTIAL LAB WORK July 03, 2024 4:0 0am ANEMIA POSITIVE HEMOCULT July 03, 2024 9:56am 1 W FU July 06, 2024 2:14p m Chief Complaint Admit Date LACERATION June 25, 2024 8:54p m ED FOLLOW UP June 28, 2024 2:25p m RESIDENTIAL LAB WORK July 03, 2024 4:0 0am [...] Date LACERATION June 25, 2024 8:54p m RESIDENTIAL LAB WORK June 27, 2024 5:0 0am RESIDENTIAL LAB WORK June 28, 2024 5:0 0am ED FOLLOW UP June 28, 2024 2:25p m RESIDENTIAL LAB WORK July 03, 2024 4:0 0am [...] DATE CREATED AUTHOR AUTHOR'S ORGANIZ ATION 02/22/2023 [facility] DATE CREATED AUTHOR AUTHOR'S ORGANIZ ATION 03/05/2023 [facility] ([place]) DATE CREATED AUTHOR AUTHOR'S ORGANIZ ATION 07/23/2024 [facility] Patient Care team informatio n (unrecognized [...] BE BASED ON THE PRIMARY CLINICAL RECORDS. [employer] provides no warranty or guarantee of the accuracy or completeness of information in this document.
[2024-07-27 08:22] LABS: Hematocrit 31.4 % (37-47); Hemoglobin 10.4 g/dL (12.0-15.0); Mean Corp Hgb Conc 33.1 g/dL (32-36); Mean Corpuscular Hgb 30.3 pg (27.0-32.0); Mean Corpuscular Volume 91.5 fL (81-99); Mean Platelet Vol. 10.3 fl (6.2-12.0); Platelet Count 322 K/mm3 (150-450); RBC Distribution Width CV 13.2 % (11.6-14.6); RBC Distribution Width SD 44.5 fl (35.1-43.9); Red Blood Count 3.43 M/mm3 (4.2-5.4); White Blood Count 7.7 K/mm3 (4.4-11.0)
[2024-07-27 08:34] LABS: ALB/GLOB Ratio 1.3 RATIO (0.9-2.4); AST(SGOT) 19 U/L (<=31); Alanine Aminotransfer ALT/SGPT 5 U/L (<=34); Albumin, Serum 4.1 g/dL (3.4-4.8); Alkaline Phosphatase 103 U/L (35-104); Anion Gap 13 (5-15); BUN 13 mg/dL (4-19); BUN/Creat Ratio 12.8 RATIO (10-20); Calcium,Total 9.6 mg/dL (7.6-11.0); Carbon Dioxide 24.3 mmol/L (21.0-32.0); Chloride 103 mmol/L (98-108); EST Glomerular Filtration Rate 58 (>60); Globulin 3.3 g/dL (2.2-4.2); Glucose 98 mg/dL (70-99); Potassium 3.8 mmol/L (3.3-5.1); Protein, Total 7.3 g/dL (5.9-8.4); Sodium Level 140 mmol/L (133-145); Total Bilirubin 0.53 mg/dL (0.00-1.30)
== END ==
PROVIDERS: PCP Family Medicine; Visit Provider Family Medicine
DX: I10 Essential (primary) hypertension (principal); D64.9 Anemia, unspecified; E78.5 Hyperlipidemia, unspecified
CPT/HCPCS: 36415; 80053; 85027

== ENCOUNTER → 2024-07-30 09:30 | Outpatient (REF) | payer MEDICARE, OTHER, SELFPAY ==
[2024-07-30 09:57] LABS: Bacteria 0 SEEN /hpf (None Seen); Mucous, Urine 0 SEEN /hpf (<or=2+); White Blood Cells 0 SEEN /hpf (0-5)
[2024-07-30 10:28] LABS: Color, Urine Yellow (Yellow); Glucose, Dipstick Normal (Normal); Ketone-Dipstick 5 mg/dl (Negative); Leukocyte Esterase-Dipstick Negative /ul (Negative); Nitrite-Dipstick Negative (Negative); Occult Blood-Urine 50 /ul (Negative); Protein-Dipstick 30 mg/dl (Negative); Specific Gravity, Urine 1.015 (1.002-1.030); Urine Bilirubin Dipstick Negative (Negative); Urine Clarity Sl. Cloudy (Clear); Urine Urobilinogen Normal (Normal)
[2024-07-30 10:59] LABS: Red Blood Cells-Urine 0-5 SEEN /hpf (0-5); Squamous Epithelial Cells - UA 0-5 SEEN /hpf (5-10)
== END ==
PROVIDERS: PCP Family Medicine; Referring Provider Family Medicine; Visit Provider Family Medicine
DX: N39.0 Urinary tract infection, site not specified (principal); I10 Essential (primary) hypertension; R29.6 Repeated falls
CPT/HCPCS: 81001; 87086; 87088

== ENCOUNTER → 2024-07-31 | Outpatient (REF) | payer MEDICARE, OTHER, SELFPAY ==
--- OUTSIDE RECORDS SUMMARY | 2024-07-31 04:15 | XMS RPT_ITS | CCD ---
Author Organization [facility] Care Team Providers Care Email Administrator Name Role Phone Chico Collier MD Unavailable Chico Collier MD Unavailable [facility] Unavailable Phan SALAZAR, Dr. Alberts ([place] [facility]) A Unavail able [facility] Unavailable Physical Therapy, David Bennett Unavailable [facility], . [facility] Unavailable ([place]), [facility] Unavailable [facility] Unavailable Janeth Chávez RN Unavailable Unavailable Zack SOTON, Serena Unavailable Pratik TAVAREZ, Luke George Unavailable Malinda Christie Unavailable Unavailable Pratik HUYNH, Ana Cristina L Unavailable Unavail able Tree SOTON, Tavia Unavailable Unavailable Sherman HUYNH, Frida Hope Unavailable Unavaila grecia Meier LPN, Obi Unavailable Unavailable Phan HUYNH, Funmi Unavailable Eulalia SOTON, Sarah K Unavailable Tonie Stone Unavailable Unavailable Janeth Florez Unavailable Luis SOTON, America Unavailable Unavailab le Vess DESKTOP SUPPORT TECHNICIAN, Neilee L Unavailable Unavailable Ros SOTON, Barbara Unavailable Unavailabl e Unavailable Unavailable DR CHICO COLLIER MD Primary Care Physician Janelle Kenney Unavailable Unavailable VACCARIELLO, CHICO Referring Unavailable VACCARIELLO, CHICO Consulting Unavailable ANA M BLACKBURN DO Admitting Unavailable PALOCKOANA M DO Attending Unavailable ANA M BLACKBURN [...] Unavailable PROVIDER, UNKNOWN Consulting Unavailable GREY CONNOR Admitting Unavailable VACCARIELLO, CHICO Referring Unavailable VACCARIELLO, CHICO Consulting Unavailable GREY CONNOR Attending Unavailable GREY CONNOR Primary Care Unavailable PROVIDER, UNKNOWN Consulting Unavailable PROVIDER, UNKNOWN Consulting Unavailable PROVIDER, UNKNOWN Consulting Unavailable VACCARIELLO, CHICO Referring Unavailable VACCARIELLO, CHICO Consulting Unavailable MATILDE VERONICA MD Admitting Unavailable MATILDE VERONICA MD Attending Unavailable MATILDE VERONICA MD Primary Care Unavailable PROVIDER, UNKNOWN Consulting Unavailable PROVIDER, UNKNOWN Consulting Unavailable PROVIDER, UNKNOWN Consulting Unavailable STAN GARCIA DO Admitting Unavailable VIVEKATZSTAN ORTEGA DO Attending Unavailable BHASKAR PhD, AASHISH Hope Consulting Unavailable EKATERINA SALAZAR, DR CHICO Hoep Primary Care IVAN Pimentel DO Consulting Unavailable ASHLEY PLACEMENT OFFICER-REHABILITATION THERAPY TECHNICIAN, HEENA Navarrete Consulting Unavaila ble EKATERINA SALAZAR, DR CHICO Hope Primary Care STAN Raymond DO Admitting Unavailable STAN GARCIA DO Attending Unavailable DR CHICO COLLIER MD Primary Care Troy VALDIVIA MD, DR AMBRIZ Admitting Unavailable JACKELYN SALAZAR, KAYLI Consulting Unavailable ART SALAZAR FACP, ADELITA Trujillo Attending Unavail able Jesus Manuel YANCEY, Stefanie Unavailable Unavailable Dr. Joel Muniz MD Emergency Provider [phone] Dr. Yahaira Winn MD Primary Care Provider [phone] Dr. Joel Muniz MD Attending Provider Diogenes SALAZAR, Dr. Kay Attending Provider Unavail able Pa SAALZAR, Dr. Yahaira S Referring Provider [phone] Dr. Jsoe Matthews MD Attending Provider [phone] Dr. Rahul Shetty MD Referring Provider Unavail able James COLORIST FORMULATOR-CBarbara Attending Provider Jolliff, Yahaira S Primary Care Unavailable Rahul Maldonado Attending Unavailable Vaccariello, Chico Attending Unavailable Vaccariello, Chico Referring Unavailable Green, Stan Primary Care Unavailable Vaccariello, Chico Referring Unavailable Green, Stan Primary Care Unavailable Vaccariello, Chico Attending Unavailable Jolliff, Yahaira S Primary Care Unavailable Shetty OLS, Rahul Attending Unavailable Muniz, Joel Attending Unavailable Jolliff, Yahaira S Primary Care Unavailable Jolliff, Yahaira S Primary Care Unavailable Diogenes SAAVEDRA, Rahul Attending Unavailable Diogenes SAAVEDRA, Rahul Referring Unavailable Jolliff, Yahaira S Primary Care Unavailable Diogenes SAAVEDRA, Rahul Attending Unavailable Jolliff, Yahaira S Primary Care Unavailable Shetty QUENTIN, Rahul Attending Unavailable Jolliff, Yahaira S Primary Care Unavailable Barbara Ramirez Attending Unavailable Jolliff, Yahaira S Referring Unavailable Jolliff, Yahaira S Referring Unavailable Jolliff, Yahaira S Primary Care Unavailable Siska, Jose Attending Unavailable Jolliff, Yahaira S Referring Unavailable Jolliff, Yahaira S Primary Care Unavailable SisJose ulrich Attending Unavailable Jolliff, Yahaira S Referring Unavailable Jolliff, Yahaira S Primary Care Unavailable Sisserg, Jose Attending Unavailable Jolliff, Yahaira S Primary Care Unavailable Jolliff, Yahaira S Referring Unavailable Siska, Jose Attending Unavailable Allergies Allergy Classification Reported Allergen(s) Allergy Type Date of Onset Reaction(s) Facility (20 sources) Penicillin V Drug Allergy [facility]. (20 sources) predniSONE Drug Allergy [facility].; [facility]. (11 sources) Amoxicillin; Translations: [amoxicillin] Drug Allergy 4 [facility] ([facility] (1 source) Amoxicillin Drug Allergy [facility] Rep[facility] (1 source) predniSONE Drug Allergy [facility] Repository (1 source) Amoxicillin Drug Allergy 5 [facility] Repository Medications Current Medications Medication Drug Class(es) Dates Sig (Normalized) Sig (Original) 8 hr acetaminophen 650 mg extended release oral tablet (10 sources) Start: 03-28-2023 take 1 tablet by mouth every eight hours Acetaminophen 650 mg tablet extended release Active 650 mg PO Q8H March 28, 2023 1:00am Start: 03-02-2023 take 1 capsule by mo uth every four hours as needed for pain Tylenol 325 mg oral capsule Dose : 650 mg =, Oral, q4h, PRN Muscle pain, 0 Refill(s) Start Date: 03/02/23 Status: Ordered aluminum hydroxide 200 mg / magnesium hydroxide 200 mg / simethicone 25 mg chewable tablet (17 sources) Start: 07-03-2024 Alum-Mag Gamaliel xide-Simeth (Gelusil Antacid And Anti-Gas) 200-200-25 mg [...] Status: Ordered amLODIPine 5 mg oral tablet (8 sources) Dihydropyridine Calcium Channel [place] Start: 07-03-2024 [...] qDay, # 30 tab(s), 0 Refill(s), Pharmacy: [id number], 160, cm, 02/15/23 17:41:00 EST, Height, kg, 02/28/23 5:44:00 EST, Dosing Weight Start Date: 03/02/23 Status: Ordered Start: 02-09-2023 atorvastatin 1 0 mg oral tablet Dose : 10 mg = 1 tab(s), Oral, qDay, # 30 tab(s), 0 Refill(s) Start Date: 02/09/23 Status: Ordered Start: 12-27-2022 bisacodyl 10 mg rectal suppository (9 sources) Stimulant Laxative Start: 03-28-2023 Bisacodyl ( [...] QID, # 120 tab(s), 0 Refill(s), Pharmacy: [facility], 160, cm, 02/15/23 17:41:00 EST, [...] Ordered docusate sodium 100 mg oral capsule (10 sources) Start: 03-28-2023 take 1 capsule by [...] 1:00am ferrous sulfate 325 mg oral tablet (11 sources) Start: 03-28-2023 take 1 tablet by [...] Status: Ordered hypromellose 17 mg/ml ophthalmic solution (7 sources) Start: 07-03-2024 Artifi.Tears(Hypromellose)(P f) 1.7 % drops with applicator Active 1 NMA OPHTHALMIC THREE TIMES A DAY July 03, 2024 12:00am Magnesium Hydroxide (9 sources) Start: 03-28-2023 take 1 mL by [...] 12:00am midodrine hydrochloride 5 mg oral tablet (11 sources) alpha-Adrenergic Agonist Start: 03-28-2023 take 1 [...] TID, # 90 tab(s), 0 Refill(s), Pharmacy: [facility], 160, cm, 02/15/23 17:41:00 EST, [...] Status: Ordered ondansetron 4 mg oral tablet (7 sources) Serotonin-3 Receptor Antagonist Start: 07-03-2024 take 1 tablet by mouth every six hours as needed Ondansetron Hcl 4 mg tablet Active 4 mg PO EVERY 6 HOURS as needed July 03, 2024 12:00am polyethylene glycol 3350 37544 mg powder for oral solution (10 sources) Osmotic Laxative Start: 03-28-2023 Polyethylene Glycol [...] End: 12-22-2015 mineral oil 1000 mg/ml enema (9 sources) Start: 03-28-2023 End: 07-03-2024 Mineral Oil [...] penicillin] 01-14-2023 Episodic Blindness and vision defects (9 sources) Blind left eye, normal vision right eye; Translations: [Blindness left eye category 5, normal vision right eye] 03-28-2023 Chronic Cataract (20 sources) Cataract of left eye; Translations: [Unspecified cataract] 01-26-2023 Chronic Conditions associated with dizziness or vertigo (20 sources) Dizzy spells; Translations: [Dizziness and giddiness] Onset: 05-19-2022 05-06-2022 Episodic Deficiency and other anemia (17 sources) Anemia; Translations: [Anemia, unspecified] Episodic Deficiency and other anemia (2 sources) Anemia, unspecified; Translations: [Anemia, unspecified] Onset: 07-20-2024 [...] Onset: 05-19-2022 Chronic Open wounds of extremities (20 sources) Laceration of left forearm; Translations: [Laceration [...] High risk drug monitoring status; Translations: [Other manager long term care (current) drug therapy] 11-14-2013 Episodic Other aftercare (1 source) Long-term current use of drug therapy; Translations: [Other manager long term care (current) drug therapy] Episodic Other and unspecified benign neoplasm (20 sources) Melanocytic nevus; Translations: [Melanocytic nevi, unspecified] 08-06-2020 Episodic Other circulatory disease (14 sources) Orthostatic hypotension; Translations: [Orthostatic hypotension] Onset: [...] [Repeated falls] 01-26-2023 Episodic Other gastrointestinal disorders (14 sources) Occult blood in stools; Translations: [Other [...] Onset: 02-12-2023 Episodic Other lower respiratory disease (10 sources) Nodule of lung; Translations: [Solitary pulmonary nodule] 02-16-2023 Episodic Comment on above: 3mm right upper lobe Other nervous system disorders (9 sources) Difficulty walking; Translations: [Difficulty in walking, not elsewhere classified] 03-28-2023 Chronic Other nervous system disorders (1 source) Abnormal gait; Translations: [Unspecified abnormalities of gait and mobility] Episodic Other nervous system disorders (9 sources) Unsteady when standing; Translations: [Unsteadiness on feet] 03-28-2023 Episodic Other nervous system disorders (8 sources) H/O: brain disorder; Translations: [Personal history [...] parkinsonism; Translations: [Paralysis agitans] 01-26-2023 Chronic Unclassified (13 sources) Parkinson's disease; Translations: [Parkinson's disease without [...] Test Name Value Interpretation Reference Range Facility Anion gap in Serum or Plasma Ordered By: Rahul Shetty on 07-27-2024 Anion gap [Moles/Vol] 13 mmol/L 5-15 [facility] BUN/creatinine ratioOrdered By: Rahul Shetty on 07-27-2024 Urea nitrogen/Creatinine [Mass ratio] 12.8 mg/mg 10- [facility] Bilirubin, totalOrdered By: Rahul Shetty on 07-27-2024 Bilirubin [Mass/Vol] 0.53 mg/dL 0.00-1.30 [facility] Carbon dioxide, total [Moles /volume] in Central venous bloodOrdered By: Rahul Shetty on 07-27-2024 CO2 [Moles/Vol] 24.3 mmol/L 21.0-32.0 [facility] Chloride assayOrdered By: Vidal Shetty on 07-27-2024 Chloride [Moles/Vol] 103 mmol/L 98-108 [facility] Erythrocyte distribution wid th ratioOrdered By: Rahul Shetty on 07-27-2024 Erythrocyte distribution width (RBC) [Ratio] 13.2 % 11.6-14.6 [facility] Erythrocyte distribution wid th standard deviationOrdered By: Rahul Shetty on 07-27-2024 Erythrocyte distribution width (RBC) [Ratio] 44.5 fl High 35.1-43.9 [facility] Glomerular filtration rate ( GFR) estimation/1.73 sq m using serum, plasma, or whole bOrdered By: Rahul Shetty on 07-27-2024 GFR/1.73 sq M.predicted among non-blacks MDRD (S/P/Bld) [Vol rate/Area] 58 mL/min/{1.73_m2} Low >60 [facility] Comment on above: mL/min/1.73m2 CKD-EP I Creatinine Equation (2020) Hematocrit Auto (Bld) [Volum e fraction]Ordered By: Rahul Shetty on 07-27-2024 Hematocrit (Bld) [Volume fraction] 31.4 % Low 37-47 [facility] Hemoglobin measurementOrdere d By: Rahul Shetty on 07-27-2024 Hemoglobin (Bld) [Mass/Vol] 10.4 g/dL Low 12.0-15.0 [facility] Laboratory - Chemistry and C hemistry - challengeOrdered By: Rahul Shetty on 07-27-2024 AST [Catalytic activity/Vol] 19 U/L <32 [facility] MCV (mean corpuscular volume ) determinationOrdered By: Rahul Shetty on 07-27-2024 MCV (RBC) [Entitic vol] 91.5 fL 81-99 [facility] Mean corpuscular hemoglobin (MCH) determinationOrdered By: Rahul Shetty on 07-27-2024 MCH (RBC) [Entitic mass] 30.3 pg 27.0-32.0 [facility] Mean corpuscular hemoglobin concentration (MCHC) determinationOrdered By: Rahul Shetty on 07-27-2024 MCHC (RBC) [Mass/Vol] 33.1 g/dL 32-36 [facility] Mean platelet volume determi nationOrdered By: Rahul Shetty on 07-27-2024 Platelet mean volume (Bld) [Entitic vol] 10.3 fL 6.2-12.0 [facility] Plastic Surgery Visit Report on 07-27-2024 Plastic Surgery Visit Report [facility] [address], [address] [place] [address] OFFICE VISIT Date of Service: 07/27/24 MR#: [id number] Acct: [id number] Name: ROSARIO MCNALLY Rep #: [id number] : 1945 Provider: Dr. Jose Matthews MD Age/Sex: 78/F [facility] Status: Signed Intake Vital Signs 07/06/24 14:31 07/27/24 09:27 Height 5 ft 3 in BP 148/84 H Blood Pressure Location Rt brachial Position Sitting Respiration 18 Pulse 74 Pulse Source Monitor Pulse Oximetry (%) 94 Oxygen Delivery Method room air Intake Visit Reasons: 2 W FU Chief Complaint: follow up laceration Is patient in pain?: No Allergies amoxicillin (From Trimox) Allergy (Verified 07/27/24 09:20) Hives Medications ???Medication ???Instructions ???Recorded ???Confirmed ???Type acetaminophen 650 mg 650 mg PO Q8H 03/28/23 07/27/24 Hi story tablet,extended release atorvastatin 10 mg tablet 10 mg PO QHS 03/28/23 07/27/24 His tory bisacodyl 10 mg rectal suppository 10 mg AZ DAILY PRN 03/28/2307/09 History (Dulcolax (bisacodyl)) carbidopa 25 mg-levodopa 100 mg 1 tab PO .QID 03/28/23 07/27/24 Hi story tablet docusate sodium 100 mg capsule 100 mg PO BID PRN 03/28/23 5 History escitalopram oxalate 10 mg tablet 10 mg PO DAILY 03/28/23 07/27/24 History ferrous sulfate 325 mg (65 mg 325 mg PO DAILY 03/28/23 07/27/24 History iron) tablet magnesium hydroxide 400 mg/5 mL 30 ml PO BID PRN 03/28/23 07/27/24 History oral suspension (Milk of Magnesia) midodrine 5 mg tablet 5 mg PO TID 03/28/23 07/27/24 Hist ory polyethylene glycol 3350 17 17 g PO DAILY 03/28/23 07/27/24 Hi story gram/dose oral powder (Miralax) aluminum-mag hydroxide-simethico ne 1 tab PO Q6H PRN 07/03/24 History 200 mg-200 mg-25 mg chewable tablet (Gelusil Antacid and Anti-Gas) amlodipine 5 mg tablet 5 mg PO QDAY 07/03/24 07/27/24 His tory artifi.tears(hyprom ellose)(PF) 1.7 1 drp ophthalmic (eye) TID 07/0307/27/24 History % eye drops with applicator ondansetron HCl 4 mg tablet 4 mg PO Q6H PRN 07/03/24 07/27/24 History Have you fallen in the past [...] family history of blood clots/blood disorders. HPI 2 W FU Details: The patient is a 78-year-old female presenting with skin healing on the left forearm and recent falls. The left forearm had previously sustained an injury, which has now mostly healed, with recommendations to apply Aquaphor and keep it covered due to fresh skin. The patient has experienced multiple falls, with the most recent occurring in her room without any loss of consciousness or dizziness at the time of the fall. However, she has reported episodes of dizziness and wooziness, which have been concerning and warrant further evaluation by her primary care physician. Attestation: Documentation on this patient encounter was supported using ambient scribe technology/ voice AI technology. The patient consented to recording for the purpose of documenting the encounter. Provider reviewed content of the generated note prior to signature. ROS Details - Neurological: Denies dizziness or loss of consciousness during falls, reports episodes of dizziness and wooziness - Musculoskeletal: Denies pain in the left upper abdomen - Genitourinary: Denies pain with urination, reports frequent urination Exam Details - Musculoskeletal: No pain to palpation in the left upper abdomen - Neurological: No dizziness or loss of consciousness reported during falls - Head and Neck: No neck pain, normal range of motion, no step-offs on face, normal occlusion Coding Level of Care Code Off vis,est,level 3 Diagnoses Laceration of forearm, left S51.812A Dizziness R42 Falls R29.6 Assessment and Plan ( (more content not included)... Normal [facility] Platelet countOrdered By: Vidal Shetty on 07-27-2024 Platelets (Bld) [#/Vol] 322 10*3/uL 150-450 [facility] Potassium measurement (mass/ volume)Ordered By: Rahul Shetty on 07-27-2024 Potassium (Unsp spec) [Mass/Vol] 3.8 mmol/L 3.3-5.1 [facility] RBC Auto (Bld) [#/Vol]Ordere d By: Rahul Shetty on 07-27-2024 RBC (Bld) [#/Vol] 3.43 10*6/uL Low [facility]2-5.4 [facility] Serum creatinine measurement (mass/volume)Ordered By: Rahul Shetty on 07-27-2024 Creatinine [Mass/Vol] 1.00 mg/dL 0.70-1.20 [facility] Serum globulin measurementOr dered By: Rahul Shetty on 07-27-2024 Globulin (S) [Mass/Vol] 3.3 g/dL 2.2-4.2 [facility] Serum glucose measurement (m ass/volume)Ordered By: Rahul Shetty on 07-27-2024 Glucose [Mass/Vol] 98 mg/dL 70-99 [facility] Serum or plasma alanine quiles otransferase (ALT) measurementOrdered By: Rahul Shetty on 07-27-2024 ALT [Catalytic activity/Vol] 5 U/L <35 [facility] Serum or plasma albumin patricia urement (mass/volume)Ordered By: Rahul Shetty on 07-27-2024 Albumin [Mass/Vol] 4.1 g/dL 3.4-4.8 [facility] Serum or plasma albumin/glob ulin mass ratioOrdered By: Rahul Shetty on 07-27-2024 Albumin/Globulin [Mass ratio] 1.3 {ratio} 0.9-2.4 [facility] Serum or plasma alkaline enriqueta sphatase measurementOrdered By: Rahul Shetty on 07-27-2024 ALP [Catalytic activity/Vol] 103 U/L 35-104 [facility] Serum or plasma calcium patricia urement (mass/volume)Ordered By: Rahul Shetty on 07-27-2024 Calcium [Mass/Vol] 9.6 mg/dL 7.6-11.0 [facility] Serum or plasma urea nitroge n measurement (mass/volume)Ordered By: Rahul Shetty on 07-27-2024 Urea nitrogen [Mass/Vol] 13 mg/dL 4-19 [facility] Sodium levelOrdered By: Clyde Shetty on 07-27-2024 Sodium [Moles/Vol] 140 mmol/L 133-145 [facility] Total proteinOrdered By: Lucien Shetty on 07-27-2024 Protein [Mass/Vol] 7.3 g/dL 5.9-8.4 [facility] White blood cell (WBC) count Ordered By: Rahul Shetty on 07-27-2024 WBC (Bld) [#/Vol] 7.7 10*3/uL 4.4-11.0 [facility] Plastic Surgery Visit Report on 07-13-2024 Plastic Surgery Visit Report [facility] [address], [address] [place] [address] OFFICE VISIT Date of Service: 07/13/24 MR#: [id number] Acct: [id number] Name: ROSARIO MCNALLY Rep #: [id number] : 1945 Provider: Dr. Jose Matthews MD Age/Sex: 78/F [facility] Status: Signed Intake Vital Signs 07/06/24 [...] bisacodyl 10 mg rectal suppository 10 mg AZ DAILY PRN 03/28/2308/01 History (Dulcolax (bisacodyl)) carbidopa [...] proximal rosa (more content not included)... Normal [facility] Plastic Surgery Visit Report on 07-06-2024 Plastic Surgery Visit Report [facility] [address], [address] [place] [address] OFFICE VISIT Date of Service: 07/06/24 MR#: [id number] Acct: [id number] Name: ROSARIO MCNALLY Rep #: [id number] : 1945 Provider: Dr. Jose Matthews MD Age/Sex: 78/F [facility] Status: Signed Intake Vital Signs 3 06/28/24 [...] bisacodyl 10 mg rectal suppository 10 mg AZ DAILY PRN 03/28/2306/09 History (Dulcolax (bisacodyl)) carbidopa [...] the s (more content not included)... Normal [facility] Erythrocyte distribution wid th ratioOrdered By: Rahul Shetty on 07-03-2024 Erythrocyte distribution width (RBC) [Ratio] 14.0 % 11.6-14.6 [facility] Erythrocyte distribution wid th standard deviationOrdered By: Rahul Shetty on 07-03-2024 Erythrocyte distribution width (RBC) [Ratio] 47.7 fl High 35.1-43.9 [facility] Gastroenterology Visit Repor ton 07-03-2024 Gastroenterology Visit Report [facility] [address] [place] [address] OFFICE VISIT Date of Service: 07/03/24 MR#: [id number] Acct: [id number] Name: ROSARIO MCNALLY Rep #: [id number] : 1945 Provider: RANDALL li Age/Sex: 78/F [place] [facility] [place]: [place] Intake Vital Signs 06/28/24 14:56 [...] POSITIVE HEMOCULT Chief Complaint: occult positive stools Package Clerk Required: No Accompanied by: Caregiver Is patient in pain?: No Allergies amoxicillin (From Trimox) Allergy (Verified 07/03/24 10:13) Hives Medications ???Medication ???Instructions ???Recorded ???Confirmed ???Type acetaminophen 650 mg 650 mg PO Q8H 03/28/23 07/03/24 Hi story tablet,extended release atorvastatin 10 mg tablet 10 mg PO QHS 03/28/23 07/03/24 His tory bisacodyl 10 mg rectal suppository 10 mg [place] DAILY PRN 03/28/2306/08 History (Dulcolax (bisacodyl)) carbidopa [...] testing if a lesion/cancer were found [place] [phone] ROS Const Constitutional: No fatigue, fever(s) or weight change ENT ENT: No difficulty swallowing Gastro GI: Positive for Blood in stool; No abdominal pain, belching, bloating, change in bowel habits, c (more content not included)... Normal [facility] Hematocrit Auto (Bld) [Volum e fraction]Ordered By: Rahul Shetty on 07-03-2024 Hematocrit (Bld) [Volume fraction] 30.5 % Low 37-47 [facility] Hemoglobin measurementOrdere d By: Rahul Shetty on 07-03-2024 Hemoglobin (Bld) [Mass/Vol] 9.8 g/dL Low 12.0-15.0 [facility] MCV (mean corpuscular volume ) determinationOrdered By: Rahul Shetty on 07-03-2024 MCV (RBC) [Entitic vol] 93.6 fL 81-99 [facility] Mean corpuscular hemoglobin (MCH) determinationOrdered By: Rahul Shetty on 07-03-2024 MCH (RBC) [Entitic mass] 30.1 pg 27.0-32.0 [facility] Mean corpuscular hemoglobin concentration (MCHC) determinationOrdered By: Rahul Shetty on 07-03-2024 MCHC (RBC) [Mass/Vol] 32.1 g/dL 32-36 [facility] Mean platelet volume determi nationOrdered By: Rahul Shetty on 07-03-2024 Platelet mean volume (Bld) [Entitic vol] 10.4 fL 6.2-12.0 [facility] Platelet countOrdered By: Vidal Shetty on 07-03-2024 Platelets (Bld) [#/Vol] 302 10*3/uL 150-450 [facility] RBC Auto (Bld) [#/Vol]Ordere d By: Rahul Shetty on 07-03-2024 RBC (Bld) [#/Vol] 3.26 10*6/uL Low 4.2-5.4 [facility] White blood cell (WBC) count Ordered By: Rahul Shetty on 07-03-2024 WBC (Bld) [#/Vol] 8.4 10*3/uL 4.4-11.0 [facility] Erythrocyte distribution wid th ratioOrdered By: Rahul Shetty on 06-29-2024 Erythrocyte distribution width (RBC) [Ratio] 13.7 % 11.6-14.6 [facility] Erythrocyte distribution wid th standard deviationOrdered By: Rahul Shetty on 06-29-2024 Erythrocyte distribution width (RBC) [Ratio] 46.4 fl High 35.1-43.9 [facility] Hematocrit Auto (Bld) [Volum e fraction]Ordered By: Rahul Shetty on 06-29-2024 Hematocrit (Bld) [Volume fraction] 30.7 % Low 37-47 [facility] Hemoglobin measurementOrdere d By: Rahul Shetty on 06-29-2024 Hemoglobin (Bld) [Mass/Vol] 9.8 g/dL Low 12.0-15.0 [facility] MCV (mean corpuscular volume ) determinationOrdered By: Rahul Shetty on 06-29-2024 MCV (RBC) [Entitic vol] 92.5 fL 81-99 [facility] Mean corpuscular hemoglobin (MCH) determinationOrdered By: Rahul Shetty on 06-29-2024 MCH (RBC) [Entitic mass] 29.5 pg 27.0-32.0 [facility] Mean corpuscular hemoglobin concentration (MCHC) determinationOrdered By: Rahul Shetty on 06-29-2024 MCHC (RBC) [Mass/Vol] 31.9 g/dL Low 32-36 [facility] Mean platelet volume determi nationOrdered By: Rahul Shetty on 06-29-2024 Platelet mean volume (Bld) [Entitic vol] 10.2 fL 6.2-12.0 [facility] Platelet countOrdered By: Vidal Shetty on 06-29-2024 Platelets (Bld) [#/Vol] 286 10*3/uL 150-450 [facility] RBC Auto (Bld) [#/Vol]Ordere d By: Rahul Shetty on 06-29-2024 RBC (Bld) [#/Vol] 3.32 10*6/uL Low 4.2-5.4 [facility] White blood cell (WBC) count Ordered By: Rahul Shetty on 06-29-2024 WBC (Bld) [#/Vol] 8.0 10*3/uL 4.4-11.0 [facility] Erythrocyte distribution wid th ratioOrdered By: Rahul Shetty on 06-28-2024 Erythrocyte distribution width (RBC) [Ratio] 13.7 % 11.6-14.6 [facility] Erythrocyte distribution wid th standard deviationOrdered By: Rahul Shetty on 06-28-2024 Erythrocyte distribution width (RBC) [Ratio] 46.7 fl High 35.1-43.9 [facility] Hematocrit Auto (Bld) [Volum e fraction]Ordered By: Rahul Shetty on 06-28-2024 Hematocrit (Bld) [Volume fraction] 27.6 % Low 37-47 [facility] Hemoglobin measurementOrdere d By: Rahul Shetty on 06-28-2024 Hemoglobin (Bld) [Mass/Vol] 9.0 g/dL Low 12.0-15.0 [facility] MCV (mean corpuscular volume ) determinationOrdered By: Rahul Shetty on 06-28-2024 MCV (RBC) [Entitic vol] 92.0 fL 81-99 [facility] Mean corpuscular hemoglobin (MCH) determinationOrdered By: Rahul Shetty on 06-28-2024 MCH (RBC) [Entitic mass] 30.0 pg 27.0-32.0 [facility] Mean corpuscular hemoglobin concentration (MCHC) determinationOrdered By: Rahul Shetty on 06-28-2024 MCHC (RBC) [Mass/Vol] 32.6 g/dL 32-36 [facility] Mean platelet volume determi nationOrdered By: Rahul Shetty on 06-28-2024 Platelet mean volume (Bld) [Entitic vol] 10.0 fL 6.2-12.0 [facility] Plastic Surgery Visit Report on 06-28-2024 Plastic Surgery Visit Report [facility] [address], [address] [place] [address] OFFICE VISIT Date of Service: 06/28/24 MR#: [id number] Acct: [id number] Name: ROSARIO MCNALLY Rep #: [id number] : 1945 Provider: Dr. Jose Matthews MD Age/Sex: 78/F [facility] Status: Signed Intake Vital Signs 3 [...] bisacodyl 10 mg rectal suppository 10 mg AZ DAILY PRN 03/28/2306/08 History (Dulcolax (bisacodyl)) carbidopa [...] 06/28/24 Hist ory mineral oil 118 ml AZ DAILY PRN 03/28/2306/28 History polyethylene glycol 3350 17 17 g PO DAILY 03/28/23 06/28/24 Hi story gram/dose oral powder (Miralax) Have you fallen in the past year?: Yes (result laceration of left forearm) Nurse's Note: pt here with daughters for follow up from ED, fall resulted in left arm laceration, [facility] Medical History Blindness left eye category 5, [...] emergency department under the care of Dr. Yuvla Muniz for a left forearm laceration. X-rays [...] apnea, a (more content not included)... Normal [facility] Platelet countOrdered By: Vidal Shetty on 06-28-2024 Platelets (Bld) [#/Vol] 247 10*3/uL 150-450 [facility] RBC Auto (Bld) [#/Vol]Ordere d By: Rahul Shetty on 06-28-2024 RBC (Bld) [#/Vol] 3.00 10*6/uL Low 4.2-5.4 [facility] White blood cell (WBC) count Ordered By: Rahul Shetty on 05-22-2025 WBC (Bld) [#/Vol] 6.3 10*3/uL 4.4-11.0 [facility] Anion gap in Serum or Plasma Ordered By: Rahul Shetty on 06-27-2024 Anion gap [Moles/Vol] 10 mmol/L 5-15 [facility] BUN/creatinine ratioOrdered By: Rahul Shetty on 06-27-2024 Urea nitrogen/Creatinine [Mass ratio] 28.9 mg/mg High 10-20 [facility] Bilirubin, totalOrdered By: Rahul Shetty on 06-27-2024 Bilirubin [Mass/Vol] 0.41 mg/dL 0.00-1.30 [facility] Carbon dioxide, total [Moles /volume] in Central venous bloodOrdered By: Rahul Shetty on 06-27-2024 CO2 [Moles/Vol] 25.8 mmol/L 21.0-32.0 [facility] Chloride assayOrdered By: Vidal Shetty on 06-27-2024 Chloride [Moles/Vol] 106 mmol/L 98-108 [facility] Erythrocyte distribution wid th ratioOrdered By: Rahul Shetty on 06-27-2024 Erythrocyte distribution width (RBC) [Ratio] 14.0 % 11.6-14.6 [facility] Erythrocyte distribution wid th standard deviationOrdered By: Rahul Shetty on 06-27-2024 Erythrocyte distribution width (RBC) [Ratio] 46.9 fl High 35.1-43.9 [facility] Glomerular filtration rate ( GFR) estimation/1.73 sq m using serum, plasma, or whole bOrdered By: Rahul Shetty on 06-27-2024 GFR/1.73 sq M.predicted among non-blacks MDRD (S/P/Bld) [Vol rate/Area] 63 mL/min/{1.73_m2} >60 [facility] Comment on above: mL/min/1.73m2 CKD-EP I Creatinine Equation (2020) Hematocrit Auto (Bld) [Volum e fraction]Ordered By: Rahul Shetty on 06-27-2024 Hematocrit (Bld) [Volume fraction] 28.2 % Low 37-47 [facility] Hemoglobin measurementOrdere d By: Rahul Shetty on 06-27-2024 Hemoglobin (Bld) [Mass/Vol] 9.1 g/dL Low 12.0-15.0 [facility] Laboratory - Chemistry and C hemistry - challengeOrdered By: Rahul Shetty on 06-27-2024 AST [Catalytic activity/Vol] 17 U/L <32 [facility] MCV (mean corpuscular volume ) determinationOrdered By: Rahul Shetty on 06-27-2024 MCV (RBC) [Entitic vol] 92.2 fL 81-99 [facility] Mean corpuscular hemoglobin (MCH) determinationOrdered By: Rahul Shetty on 06-27-2024 MCH (RBC) [Entitic mass] 29.7 pg 27.0-32.0 [facility] Mean corpuscular hemoglobin concentration (MCHC) determinationOrdered By: Rahul Shetty on 06-27-2024 MCHC (RBC) [Mass/Vol] 32.3 g/dL 32-36 [facility] Mean platelet volume determi nationOrdered By: Rahul Shetty on 06-27-2024 Platelet mean volume (Bld) [Entitic vol] 10.2 fL 6.2-12.0 [facility] Platelet countOrdered By: Vidal Shetty on 06-27-2024 Platelets (Bld) [#/Vol] 237 10*3/uL 150-450 [facility] Potassium measurement (mass/ volume)Ordered By: Rahul Shetty on 06-27-2024 Potassium (Unsp spec) [Mass/Vol] 4.3 mmol/L 3.3-5.1 [facility] RBC Auto (Bld) [#/Vol]Ordere d By: Rahul Shetty on 06-27-2024 RBC (Bld) [#/Vol] 3.06 10*6/uL Low 4.2-5.4 [facility] Serum creatinine measurement (mass/volume)Ordered By: Rahul Shetty on 06-27-2024 Creatinine [Mass/Vol] 0.93 mg/dL 0.70-1.20 [facility] Serum globulin measurementOr dered By: Rahul Shetty on 06-27-2024 Globulin (S) [Mass/Vol] 2.9 g/dL 2.2-4.2 [facility] Serum glucose measurement (m ass/volume)Ordered By: Rahul Shetty on 06-27-2024 Glucose [Mass/Vol] 89 mg/dL 70-99 [facility] Serum or plasma alanine quiles otransferase (ALT) measurementOrdered By: Rahul Shetty on 06-27-2024 ALT [Catalytic activity/Vol] U/L <35 [facility] Serum or plasma albumin patricia urement (mass/volume)Ordered By: Rahul Shetty on 06-27-2024 Albumin [Mass/Vol] 3.7 g/dL 3.4-4.8 [facility] Serum or plasma albumin/glob ulin mass ratioOrdered By: Rahul Shetty on 06-27-2024 Albumin/Globulin [Mass ratio] 1.3 {ratio} 0.9-2.4 [facility] Serum or plasma alkaline enriqueta sphatase measurementOrdered By: Rahul Shetty on 06-27-2024 ALP [Catalytic activity/Vol] 90 U/L 35-104 [facility] Serum or plasma calcium patricia urement (mass/volume)Ordered By: Rahul Shetty on 06-27-2024 Calcium [Mass/Vol] 9.1 mg/dL 7.6-11.0 [facility] Serum or plasma urea nitroge n measurement (mass/volume)Ordered By: Rahul Shetty on 06-27-2024 Urea nitrogen [Mass/Vol] 27 mg/dL High 4-19 [facility] Sodium levelOrdered By: Clyde Shetty on 06-27-2024 Sodium [Moles/Vol] 142 mmol/L 133-145 [facility] Stool gastrointestinal hemog lobin detection by immunologic methodOrdered By: Rahul Shetty on 06-27-2024 Lower GI hemoglobin IA Ql (Stl) Positive Abnormal [facility] Total proteinOrdered By: Lucien Shetty on 06-27-2024 Protein [Mass/Vol] 6.6 g/dL 5.9-8.4 [facility] White blood cell (WBC) count Ordered By: Rahul Shetty on 06-27-2024 WBC (Bld) [#/Vol] 6.9 10*3/uL 4.4-11.0 [facility] Bilirubin Test strip Ql (U)O rdered By: Rahul Shetty on 06-26-2024 Bilirubin Ql (U) Negative Negative [facility] Ketones Test strip Ql (U)Ord ered By: Rahul Shetty on 06-26-2024 Ketones Ql (U) 5 mg/dl High Negative [facility] Microscopic analysis of urin e for red blood cells (RBC)Ordered By: Rahul Shetty on 06-26-2024 Microscopic analysis of urine for red blood cells (RBC) 0 SEEN /hpf 0-5 [facility] Mucus LM Ql (Urine sed)Order ed By: Rahul Shetty on 06-26-2024 Mucus Ql (Urine sed) 1+ /hpf [facility] Nitrite Test strip Ql (U)Ord ered By: Rahul Shetty on 06-26-2024 Nitrite Ql (U) Negative Negative [facility] Protein Test strip Ql (U)Ord ered By: Rahul Shetty on 06-26-2024 Protein Ql (U) 30 mg/dl High Negative [facility] Squamous epithelial cells de tection in urine sediment by light microscopyOrdered By: Rahul Shetty on 06-26-2024 Epithelial cells.squamous LM Ql (Urine sed) 0-5 SEEN /hpf 5-10 [facility] Urine clarityOrdered By: Lucien Shetty on 06-26-2024 Clarity (U) Clear Clear [facility] Urine color determinationOrd ered By: Rahul Shetty on 06-26-2024 Color (U) Yellow Yellow [facility] Urine cultureOrdered By: Lucien Shetty on 06-26-2024 Bacteria identified Cx Nom (U) Positive Abnormal [facility] Urine glucose detectionOrder ed By: Rahul Shetty on 06-26-2024 Glucose Ql (U) Normal mg/dl Normal [facility] Urine leukocyte esterase det ection by dipstickOrdered By: Rahul Shetty on 06-26-2024 Leukocyte esterase Test strip Ql (U) Negative Negative [facility] Urine pHOrdered By: Rahul jackson on 06-26-2024 pH (U) 5.0 [pH] 5.0 - 8.0 [facility] Urine sediment bacteria coun t by microscopy (number/high power field)Ordered By: Rahul Shetty on 06-26-2024 Bacteria LM.HPF (Urine sed) [#/Area] 1 /[HPF] None Seen [facility] Urine sediment fine granular cast count by microscopy (number/low power field)Ordered By: Rahul Shetty on 06-26-2024 Fine Granular Casts LM.LPF (Urine sed) [#/Area] 0-5 SEEN /lpf 0-5 [facility] Urine specific gravity measu rementOrdered By: Rahul Shetty on 06-26-2024 Specific gravity (U) [Rel density] 1.020 1.002-1.030 [facility] Urine urobilinogen measureme ntOrdered By: Rahul Shetty on 06-26-2024 Urobilinogen Ql (U) Normal mg/dl Normal [facility] White blood cell countOrdere d By: Rahul Shetty on 06-26-2024 White blood cell count 0 SEEN /hpf 0-5 [facility] Emergency Department Summary on 06-25-2024 Emergency Department Summary [facility] Medical Records Department [address] [place] [address] Emergency Department Summary 06/25/24 MR#: [id number] Acct: [id number] Name: ROSARIO MCNALLY Rep #: [id number] : 1945 78 From: Joel Muniz MD PCP: Dr. Yahaira Winn MD Status:DEP ER Location: ED HPI History of Present Illness HPI Narrative: 78-year-old female history of Parkinson disease, anemia. Unwitnessed fall today at [facility]. Has a large forearm laceration/skin [...] from [facility]. Unwitnessed fall. Large skin tear left [...] bisacodyl 10 mg rectal suppository 10 mg AZ DAILY PRN 03/28/23 Unkn own History (Dulcolax [...] Unknown Histo ry mineral oil 118 ml AZ DAILY PRN 03/28/23 Unkno wn History polyethylene [...] girdle int (more content not included)... Normal [facility] Forearm 2 Viewson 06-25-2024 Forearm 2 Views [facility] [address] [place] [address] Forearm 2 Views MR#: [id number] Acct: [id number] Name: ROSARIO MCNALLY Rep #: [id number] : 1945 F 78 From: Joao Rondon MD PCP: Dr. Yahaira Winn MD Status: REG ER Study: Forearm 2 Views Date of Exam: 06/25/24 Exam# [id number] Ordering Dr: Joel Muniz MD PROCEDURE: FOREARM [...] osteopenia slightly limits this evaluation. Reading Location: [facility] CC: Dr. Yahaira Winn MD; Dr. Joel Muniz MD Earth [employer]over: Signed Normal [facility] LABORATORYOrdered By: Cate Galloway on 02-23-2023 Glucose [Mass/Vol] 133 mg/dL High 82 - 115 mg/dL [place] EMERGENCY REPORTon 4 EMERGENCY REPORT [facility] EMERGENCY ROOM REPORT NAME ACCOUNT SEX AGE ADMIT DISCHARGE PT MED. RECORD# NUMBER DATE DATE TYPE DALI [id number] F 77 02/08/23 02/08/23 3 ROSARIO Lopez [id number] ROOM: ER DATE OF : 1945 DICTATING [...] noted on the surgery list. MEDICATIONS: Per med rec list. SOCIAL HISTORY: She lives at [...] Grey Connor MD 02/08/23 15:14 JOB #: [id number] Transcribed By: am 02/09/23 07:28 Electronically signed by: MODESTO Connor M.D. 02/22/23 07:05 Page 2 of 2 ROSARIO MCNALLY Emergency Room Report Normal [facility] XR WRIST MINIMUM 3 VIEWS RIG HTon 02-21-2023 XR WRIST MINIMUM 3 VIEWS RIGHT [...] PM Ordering Provider: STAN Tirado [facility] ([place]) .Auto Diffon 02-16-2023 Basophil, Absolute 0.0 10 3/mcL Normal 0.0-0.3 [facility] ([place]) Comment on above: Performed By: #### C BC, MG, ADIFF, BMP, ANEU, GFR, LARON #### [address] [address] Basophils/100 WBC (Bld) 0.6 % Normal 0.0-2.5 [facility] ([place]) Comment on above: Performed By: #### C BC, MG, ADIFF, BMP, ANEU, GFR, LARON #### [address] [address] Eosinophil, Absolute 0.3 10 3/mcL Normal 0.0-0.7 [facility] ([place]) Comment on above: Performed By: #### C BC, MG, ADIFF, BMP, ANEU, GFR, LARON #### [address] [address] Eosinophils/100 WBC (Bld) 4.3 % Normal 0.0-6.0 [facility] ([place]) Comment on above: Performed By: #### C BC, MG, ADIFF, BMP, ANEU, GFR, LARON #### [address] [address] Lymphocyte, Absolute 1.1 10 3/mcL Normal 0.9-4.3 [facility] ([place]) Comment on above: Performed By: #### C BC, MG, ADIFF, BMP, ANEU, GFR, LARON #### [address] [address] Lymphocytes/100 WBC (Bld) 18.4 % Low 20.0-40.0 [facility] ([place]) Comment on above: Performed By: #### C BC, MG, ADIFF, BMP, ANEU, GFR, LARON #### [address] [address] Monocyte, Absolute 0.7 10 3/mcL Normal 0.1-1.4 [facility] ([place]) Comment on above: Performed By: #### C BC, MG, ADIFF, BMP, ANEU, GFR, LARON #### [address] [address] Monocytes/100 WBC (Bld) 11.9 % Normal 2.0-13.0 [facility] ([place]) Comment on above: Performed By: #### C BC, MG, ADIFF, BMP, ANEU, GFR, LARON #### [address] [address] Neutrophils/100 WBC (Bld) 64.8 % Normal 50.0-75.0 [facility] ([place]) Comment on above: Performed By: #### C BC, MG, ADIFF, BMP, ANEU, GFR, LARON #### [address] [address] .GFRon 02-16-2023 GFR >60 Normal [facility] ([place]) Comment on above: Result Comment: GFR Population [...] MG, ADIFF, BMP, ANEU, GFR, LARON #### [address] [address] GFR Non- >60 Normal [facility] ([place]) Comment on above: Result Comment: GFR Population [...] MG, ADIFF, BMP, ANEU, GFR, LARON #### [address] [address] .NEUABSon 02-16-2023 Neutrophil, Absolute 4.0 10 3/mcL Normal 2.3-8.1 [facility] ([place]) Comment on above: Performed By: #### C BC, MG, ADIFF, BMP, ANEU, GFR, LARON #### [address] [address] [facility] BUN/Creatinine Ratio 19.0 ratio Normal 10.0-22.0 [facility] ([place]) Comment on above: Performed By: #### C BC, MG, ADIFF, BMP, ANEU, GFR, LARON #### [address] [address] Calcium [Mass/Vol] 8.8 mg/dL Normal 8.7-10.4 [facility] ([place]) Comment on above: Performed By: #### C BC, MG, ADIFF, BMP, ANEU, GFR, LARON #### [address] [address] Chloride [Moles/Vol] 105 mmol/L Normal 98-110 [facility] ([place]) Comment on above: Performed By: #### C BC, MG, ADIFF, BMP, ANEU, GFR, LARON #### [address] [address] CO2 [Moles/Vol] 33 mmol/L High 22-32 Count includes the [facility] ([place]) Comment on above: Performed By: #### C BC, MG, ADIFF, BMP, ANEU, GFR, LARON #### [address] [address] Creatinine [Mass/Vol] 0.58 mg/dL Normal 0.50-1.20 [facility] ([place]) Comment on above: Performed By: #### C BC, MG, ADIFF, BMP, ANEU, GFR, LARON #### [place] [id number] Electrolyte Balance 2.0 mEq/L Low 4.0-15.0 [facility] ([place]) Comment on above: Performed By: #### C BC, MG, ADIFF, BMP, ANEU, GFR, LARON #### [address] [address] Glucose [Mass/Vol] 90 mg/dL Normal 82-115 [facility] ([place]) Comment on above: Performed By: #### C BC, MG, ADIFF, BMP, ANEU, GFR, LARON #### [address] [address] Potassium [Moles/Vol] 3.6 mmol/L Normal 3.5-5.0 [facility] ([place]) Comment on above: Performed By: #### C BC, MG, ADIFF, BMP, ANEU, GFR, LARON #### [address] [address] Sodium [Moles/Vol] 140 mmol/L Normal 136-145 [facility] ([place]) Comment on above: Performed By: #### C BC, MG, ADIFF, BMP, ANEU, GFR, LARON #### [place] [id number] Urea nitrogen [Mass/Vol] 11.0 mg/dL Normal 8.0-22.0 [facility] ([place]) Comment on above: Performed By: #### C BC, MG, ADIFF, BMP, ANEU, GFR, LARON #### [place] [address] CBCon 02-16-2023 Erythrocyte distribution width (RBC) [Ratio] 13.8 % Normal 11.5-15.5 [facility] ([place]) Comment on above: Performed By: #### C BC, MG, ADIFF, BMP, ANEU, GFR, LARON #### [place] [address] Hematocrit (Bld) [Volume fraction] 28.4 % Low 34.0-46.0 [facility] ([place]) Comment on above: Performed By: #### C BC, MG, ADIFF, BMP, ANEU, GFR, LARON #### [place] [address] Hgb 9.9 G/dL Low 12.0-16.0 [facility] ([place]) Comment on above: Performed By: #### C BC, MG, ADIFF, BMP, ANEU, GFR, LARON #### [place] [address] MCH (RBC) [Entitic mass] 31.1 pg Normal 27.0-33.0 [facility] ([place]) Comment on above: Performed By: #### C BC, MG, ADIFF, BMP, ANEU, GFR, LARON #### [place] [address] MCHC 34.7 G/dL Normal 32.0-36.0 [facility] ([place]) Comment on above: Performed By: #### C BC, MG, ADIFF, BMP, ANEU, GFR, LARON #### [place] [address] MCV (RBC) [Entitic vol] 89.6 fL Normal 80.0-99.0 [facility] ([place]) Comment on above: Performed By: #### C BC, MG, ADIFF, BMP, ANEU, GFR, LARON #### [address] [address] Platelet 284 10 3/mcL Normal 150-450 [facility] ([place]) Comment on above: Performed By: #### C BC, MG, ADIFF, BMP, ANEU, GFR, LARON #### [address] [address] Platelet mean volume (Bld) [Entitic vol] 7.9 fL Normal 6.6-10.5 [facility] ([place]) Comment on above: Performed By: #### C BC, MG, ADIFF, BMP, ANEU, GFR, LARON #### [place] [address] RBC 3.17 10 6/mcL Low 4.10-5.30 [facility] ([place]) Comment on above: Performed By: #### C BC, MG, ADIFF, BMP, ANEU, GFR, LARON #### [place] [id number] WBC 6.2 10 3/mcL Normal 4.5-10.8 [facility] ([place]) Comment on above: Performed By: #### C BC, MG, ADIFF, BMP, ANEU, GFR, LARON #### [place] [address] LABORATORYOrdered By: SYSTEM SYSTEM on 02-16-2023 Basophils (Bld) [#/Vol] 0.0 103/mcL Normal 0.0 - 0.3 10^3/mcL AH Workflow SS Basophils/100 WBC (Bld) 0.6 % Normal 0.0 - 2.5 % AH Workflow SS Calcium [Mass/Vol] 8.8 mg/dL Normal 8.7 - 10. 4 mg/dL AH ADM SS Chloride [Moles/Vol] 105 mmol/L Normal 98 - 11 0 mEq/L AH ADM SS CO2 [Moles/Vol] 33 mmol/L High 22 - 32 mEq/L AH ADM SS Creatinine [Mass/Vol] 0.58 mg/dL Normal 0.50 - 1.20 mg/dL ADM SS Electrolyte Balance 2.0 mEq/L Low 4.0 - 15 .0 mEq/L AH ADM SS Eosinophils (Bld) [#/Vol] 0.3 103/mcL Normal 0.0 - 0.7 10^3/mcL Workflow SS Eosinophils/100 WBC (Bld) 4.3 % Normal 0.0 - 6.0 % Workflow SS Erythrocyte distribution width (RBC) [Ratio] 13.8 % Normal 11.5 - 15.5 % Workflow SS GFR/1.73 sq M.predicted among blacks MDRD (S/P/Bld) [Vol rate/Area] ml/min/1.73sqm Invalid Interpretation Code Angella [facility] Chemistry S Comment on above: Interpretive Data: [...] (S/P/Bld) [Vol rate/Area] ml/min/1.73sqm Invalid Interpretation Code Angella [facility] Chemistry S Comment on above: Interpretive Data: [...] 28.4 % Low 34.0 - 46.0 % AH Workflow SS Hemoglobin (Bld) [Mass/Vol] 9.9 G/dL Low 12.0 - 16.0 G/dL AH Workflow SS Lymphocytes (Bld) [#/Vol] 1.1 103/mcL Normal 0.9 - 4.3 10^3/mcL AH Workflow SS Lymphocytes/100 WBC (Bld) 18.4 % Low 20.0 - 40.0 % AH Workflow SS MCH (RBC) [Entitic mass] 31.1 pg Normal 27.0 - 33.0 pg AH Workflow SS MCHC 34.7 G/dL Normal 32.0 - 36.0 G/dL AH Workflow SS MCV (RBC) [Entitic vol] 89.6 fL Normal 80.0 - 99.0 fL Workflow SS Monocytes (Bld) [#/Vol] 0.7 103/mcL Normal 0.1 - 1.4 10^3/mcL AH Workflow SS Monocytes/100 WBC (Bld) 11.9 % Normal 2.0 - 13.0 % AH Workflow SS Neutrophils (Bld) [#/Vol] 4.0 103/mcL Normal 2.3 - 8.1 10^3/mcL AH Workflow SS Neutrophils/100 WBC (Bld) 64.8 % Normal 50.0 - 75.0 % Workflow SS Platelet mean volume (Bld) [Entitic vol] 7.9 fL Normal 6.6 - 10.5 fL Workflow SS Platelets (Bld) [#/Vol] 284 103/mcL Normal 150 - 450 10^3/mcL AH Workflow SS Potassium [Moles/Vol] 3.6 mmol/L Normal 3.5 - 5.0 mEq/L AH ADM SS RBC (Bld) [#/Vol] 3.17 106/mcL Low 4.10 - 5.3 0 10^6/mcL AH Workflow SS Sodium [Moles/Vol] 140 mmol/L Normal 136 - 145 mEq/L ADM SS Urea nitrogen [Mass/Vol] 11.0 mg/dL Normal 8.0 - 22.0 mg/dL ADM SS Urea nitrogen/Creatinine [Mass ratio] 19.0 ratio Normal 10.0 - 22.0 ratio ADM SS WBC (Bld) [#/Vol] 6.2 103/mcL Normal 4.5 - 10.8 10^3/mcL Workflow SS .Auto Diffon 02-15-2023 Basophil, Absolute 0.0 10 3/mcL Normal 0.0-0.3 [facility] ([place]) Comment on above: Performed By: #### C BC, MG, ADIFF, BMP, ANEU, GFR, LARON #### [address] [address] Basophils/100 WBC (Bld) 0.5 % Normal 0.0-2.5 A [facility] ([place]) Comment on above: Performed By: #### C BC, MG, ADIFF, BMP, ANEU, GFR, LARON #### [address] [address] Eosinophil, Absolute 0.2 10 3/mcL Normal 0.0-0.7 [facility] ([place]) Comment on above: Performed By: #### C BC, MG, ADIFF, BMP, ANEU, GFR, LARON #### [address] [address] Eosinophils/100 WBC (Bld) 3.1 % Normal 0.0-6.0 [facility] ([place]) Comment on above: Performed By: #### C BC, MG, ADIFF, BMP, ANEU, GFR, LARON #### [address] [address] Lymphocyte, Absolute 1.4 10 3/mcL Normal 0.9-4.3 [facility] ([place]) Comment on above: Performed By: #### C BC, MG, ADIFF, BMP, ANEU, GFR, LARON #### [address] [address] Lymphocytes/100 WBC (Bld) 19.7 % Low 20.0-40.0 [facility] ([place]) Comment on above: Performed By: #### C BC, MG, ADIFF, BMP, ANEU, GFR, LARON #### [address] [address] Monocyte, Absolute 0.8 10 3/mcL Normal 0.1-1.4 [facility] ([place]) Comment on above: Performed By: #### C BC, MG, ADIFF, BMP, ANEU, GFR, LARON #### [address] [address] Monocytes/100 WBC (Bld) 11.1 % Normal 2.0-13.0 [facility] ([place]) Comment on above: Performed By: #### C BC, MG, ADIFF, BMP, ANEU, GFR, LARON #### [address] [address] Neutrophils/100 WBC (Bld) 65.6 % Normal 50.0-75.0 [facility] ([place]) Comment on above: Performed By: #### C BC, MG, ADIFF, BMP, ANEU, GFR, LARON #### [address] [address] .GFRon 02-15-2023 GFR >60 Normal [facility] ([place]) Comment on above: Result Comment: GFR Population [...] MG, ADIFF, BMP, ANEU, GFR, LARON #### [address] [address] GFR Non- >60 Normal [facility] ([place]) Comment on above: Result Comment: GFR Population [...] MG, ADIFF, BMP, ANEU, GFR, LARON #### [address] [address] .NEUABSon 02-15-2023 Neutrophil, Absolute 4.5 10 3/mcL Normal 2.3-8.1 [facility] ([place]) Comment on above: Performed By: #### C BC, MG, ADIFF, BMP, ANEU, GFR, LARON #### [address] [address] BMPon 02-15-2023 BUN/Creatinine Ratio 17.5 ratio Normal 10.0-22.0 [facility] ([place]) Comment on above: Performed By: #### C BC, MG, ADIFF, BMP, ANEU, GFR, LARON #### [address] [address] Calcium [Mass/Vol] 8.4 mg/dL Low 8.7-10.4 [facility] ([place]) Comment on above: Performed By: #### C BC, MG, ADIFF, BMP, ANEU, GFR, LARON #### [address] [address] Chloride [Moles/Vol] 111 mmol/L High 98-110 [facility] ([place]) Comment on above: Performed By: #### C BC, MG, ADIFF, BMP, ANEU, GFR, LARON #### [address] [address] CO2 [Moles/Vol] 29 mmol/L Normal 22-32 Count includes the [facility] ([place]) Comment on above: Performed By: #### C BC, MG, ADIFF, BMP, ANEU, GFR, LARON #### [address] [address] [address] Creatinine [Mass/Vol] 0.57 mg/dL Normal 0.50-1.20 [facility] ([place]) Comment on above: Performed By: #### C BC, MG, ADIFF, BMP, ANEU, GFR, LARON #### [place] [id number] Electrolyte Balance 2.0 mEq/L Low 4.0-15.0 [facility] ([place]) Comment on above: Performed By: #### C BC, MG, ADIFF, BMP, ANEU, GFR, LARON #### [place] [id number] Glucose [Mass/Vol] 87 mg/dL Normal 82-115 [facility] ([place]) Comment on above: Performed By: #### C BC, MG, ADIFF, BMP, ANEU, GFR, LARON #### [place] [id number] Potassium [Moles/Vol] 3.6 mmol/L Normal 3.5-5.0 [facility] ([place]) Comment on above: Performed By: #### C BC, MG, ADIFF, BMP, ANEU, GFR, LARON #### [place] [address] Sodium [Moles/Vol] 142 mmol/L Normal 136-145 [facility] ([place]) Comment on above: Performed By: #### C BC, MG, ADIFF, BMP, ANEU, GFR, LARON #### [place] [address] Urea nitrogen [Mass/Vol] 10.0 mg/dL Normal 8.0-22.0 [facility] ([place]) Comment on above: Performed By: #### C BC, MG, ADIFF, BMP, ANEU, GFR, LARON #### [address] [address] CBCon 02-15-2023 Erythrocyte distribution width (RBC) [Ratio] 14.0 % Normal 11.5-15.5 [facility] ([place]) Comment on above: Performed By: #### C BC, MG, ADIFF, BMP, ANEU, GFR, LARON #### [place] [id number] Hematocrit (Bld) [Volume fraction] 31.1 % Low 34.0-46.0 [facility] ([place]) Comment on above: Performed By: #### C BC, MG, ADIFF, BMP, ANEU, GFR, LARON #### [place] [id number] Hgb 10.3 G/dL Low 12.0-16.0 [facility] ([place]) Comment on above: Performed By: #### C BC, MG, ADIFF, BMP, ANEU, GFR, LARON #### [place] [address] MCH (RBC) [Entitic mass] 29.8 pg Normal 27.0-33.0 [facility] ([place]) Comment on above: Performed By: #### C BC, MG, ADIFF, BMP, ANEU, GFR, LARON #### [place] [address] MCHC 33.1 G/dL Normal 32.0-36.0 [facility] ([place]) Comment on above: Performed By: #### C BC, MG, ADIFF, BMP, ANEU, GFR, LARON #### [place] [address] MCV (RBC) [Entitic vol] 90.2 fL Normal 80.0-99.0 [facility] ([place]) Comment on above: Performed By: #### C BC, MG, ADIFF, BMP, ANEU, GFR, LAORN #### [place] [address] Platelet 271 10 3/mcL Normal 150-450 [facility] ([place]) Comment on above: Performed By: #### C BC, MG, ADIFF, BMP, ANEU, GFR, LARON #### [place] [address] Platelet mean volume (Bld) [Entitic vol] 8.1 fL Normal 6.6-10.5 [facility] ([place]) Comment on above: Performed By: #### C BC, MG, ADIFF, BMP, ANEU, GFR, LARON #### [place] [address] RBC 3.45 10 6/mcL Low 4.10-5.30 [facility] ([place]) Comment on above: Performed By: #### C BC, MG, ADIFF, BMP, ANEU, GFR, LARON #### [address] [address] WBC 6.9 10 3/mcL Normal 4.5-10.8 [facility] ([place]) Comment on above: Performed By: #### C BC, MG, ADIFF, BMP, ANEU, GFR, LARON #### [address] [address] LABORATORYOrdered By: SYSTEM SYSTEM on 02-15-2023 Basophils (Bld) [#/Vol] 0.0 103/mcL Normal 0.0 - 0.3 10^3/mcL Workflow SS Basophils/100 WBC (Bld) 0.5 % [...] 3.1 % Normal 0.0 - 6.0 % Workflow SS Erythrocyte distribution width (RBC) [Ratio] 14.0 % Normal 11.5 - 15.5 % Workflow [...] 31.1 % Low 34.0 - 46.0 % Workflow SS Hemoglobin (Bld) [Mass/Vol] 10.3 G/dL Low 12.0 - 16.0 G/dL AH Workflow SS Lymphocytes (Bld) [#/Vol] 1.4 103/mcL Normal 0.9 - 4.3 10^3/mcL Workflow SS Lymphocytes/100 WBC (Bld) 19.7 % Low 20.0 - 40.0 % Workflow SS Magnesium [Mass/Vol] 1.6 mg/dL Normal 1.6 - 2 .4 mg/dL ADM SS MCH (RBC) [Entitic mass] 29.8 pg Normal 27.0 - 33.0 pg Workflow SS MCHC 33.1 G/dL Normal 32.0 - 36.0 G/dL Workflow SS MCV (RBC) [Entitic vol] 90.2 [...] 02-15-2023 Magnesium [Mass/Vol] 1.6 mg/dL Normal 1.6-2.4 [facility] ([place]) Comment on above: Performed By: #### C BC, MG, ADIFF, BMP, ANEU, GFR, LARON #### [place] [address] No Panel Informationon 02-14 Culture Urine >100,000 cfu/ml Enterococcus faecalis ANGEL to follow [facility] .Auto Diffon 02-13-2023 Basophil, Absolute 0.0 10 3/mcL Normal 0.0-0.3 [facility] ([place]) Comment on above: Performed By: #### C BC, MG, ADIFF, BMP, ANEU, GFR, LARON #### [address] [address] Basophils/100 WBC (Bld) 0.3 % Normal 0.0-2.5 [facility] ([place]) Comment on above: Performed By: #### C BC, MG, ADIFF, BMP, ANEU, GFR, LARON #### [address] [address] Eosinophil, Absolute 0.3 10 3/mcL Normal 0.0-0.7 [facility] ([place]) Comment on above: Performed By: #### C BC, MG, ADIFF, BMP, ANEU, GFR, LARON #### [address] [address] Eosinophils/100 WBC (Bld) 4.0 % Normal 0.0-6.0 [facility] ([place]) Comment on above: Performed By: #### C BC, MG, ADIFF, BMP, ANEU, GFR, LARON #### [address] [address] Lymphocyte, Absolute 0.9 10 3/mcL Normal 0.9-4.3 [facility] ([place]) Comment on above: Performed By: #### C BC, MG, ADIFF, BMP, ANEU, GFR, LARON #### [address] [address] Lymphocytes/100 WBC (Bld) 12.1 % Low 20.0-40.0 [facility] ([place]) Comment on above: Performed By: #### C BC, MG, ADIFF, BMP, ANEU, GFR, LARON #### [address] [address] Monocyte, Absolute 0.8 10 3/mcL Normal 0.1-1.4 [facility] ([place]) Comment on above: Performed By: #### C BC, MG, ADIFF, BMP, ANEU, GFR, LARON #### [address] [address] Monocytes/100 WBC (Bld) 11.4 % Normal 2.0-13.0 [facility] ([place]) Comment on above: Performed By: #### C BC, MG, ADIFF, BMP, ANEU, GFR, LARON #### [address] [address] Neutrophils/100 WBC (Bld) 72.2 % Normal 50.0-75.0 [facility] ([place]) Comment on above: Performed By: #### C BC, MG, ADIFF, BMP, ANEU, GFR, LARON #### [address] [address] .GFRon 02-13-2023 GFR >60 Normal [facility] ([place]) Comment on above: Result Comment: GFR Population [...] MG, ADIFF, BMP, ANEU, GFR, LARON #### [address] [address] GFR Non- >60 Normal [facility] ([place]) Comment on above: Result Comment: GFR Population [...] MG, ADIFF, BMP, ANEU, GFR, LARON #### [place] [address] .NEUABSon 02-13-2023 Neutrophil, Absolute 5.2 10 3/mcL Normal 2.3-8.1 [facility] ([place]) Comment on above: Performed By: #### C BC, MG, ADIFF, BMP, ANEU, GFR, LARON #### [address] 02-13-2023 BUN/Creatinine Ratio 20.8 ratio Normal 10.0-22.0 [facility] ([place]) Comment on above: Performed By: #### C BC, MG, ADIFF, BMP, ANEU, GFR, LARON #### [place] [address] Calcium [Mass/Vol] 8.3 mg/dL Low 8.7-10.4 [facility] ([place]) Comment on above: Performed By: #### C BC, MG, ADIFF, BMP, ANEU, GFR, LARON #### [place] [address] Chloride [Moles/Vol] 108 mmol/L Normal 98-110 [facility] ([place]) Comment on above: Performed By: #### C BC, MG, ADIFF, BMP, ANEU, GFR, LARON #### [place] [address] CO2 [Moles/Vol] 25 mmol/L Normal 22-32 Count includes the [facility] ([place]) Comment on above: Performed By: #### C BC, MG, ADIFF, BMP, ANEU, GFR, LARON #### [place] [address] Creatinine [Mass/Vol] 0.53 mg/dL Normal 0.50-1.20 [facility] ([place]) Comment on above: Performed By: #### C BC, MG, ADIFF, BMP, ANEU, GFR, LARON #### [place] [address] Electrolyte Balance 7.0 mEq/L Normal 4.0-15.0 [facility] ([place]) Comment on above: Performed By: #### C BC, MG, ADIFF, BMP, ANEU, GFR, LARON #### [address] [address] Glucose [Mass/Vol] 96 mg/dL Normal 82-115 [facility] ([place]) Comment on above: Performed By: #### C BC, MG, ADIFF, BMP, ANEU, GFR, LARON #### [place] [id number] Potassium [Moles/Vol] 3.4 mmol/L Low 3.5-5.0 [facility] ([place]) Comment on above: Performed By: #### C BC, MG, ADIFF, BMP, ANEU, GFR, LARON #### [address] [address] Sodium [Moles/Vol] 140 mmol/L Normal 136-145 [facility] ([place] Comment on above: Performed By: #### C BC, MG, ADIFF, BMP, ANEU, GFR, LARON #### [address] [address] Urea nitrogen [Mass/Vol] 11.0 mg/dL Normal 8.0-22.0 [facility] ([place]) Comment on above: Performed By: #### C BC, MG, ADIFF, BMP, ANEU, GFR, LARON #### [address] [address] CBCon 02-13-2023 Erythrocyte distribution width (RBC) [Ratio] 14.2 % Normal 11.5-15.5 [facility] ([place]) Comment on above: Performed By: #### C BC, MG, ADIFF, BMP, ANEU, GFR, LARON #### [address] [address] Hematocrit (Bld) [Volume fraction] 29.4 % Low 34.0-46.0 [facility] ([place]) Comment on above: Performed By: #### C BC, MG, ADIFF, BMP, ANEU, GFR, LARON #### [place] [address] Hgb 9.9 G/dL Low 12.0-16.0 [facility] ([place]) Comment on above: Performed By: #### C BC, MG, ADIFF, BMP, ANEU, GFR, LARON #### [place] [address] MCH (RBC) [Entitic mass] 30.5 pg Normal 27.0-33.0 [facility] ([place]) Comment on above: Performed By: #### C BC, MG, ADIFF, BMP, ANEU, GFR, LARON #### [place] [address] MCHC 33.6 G/dL Normal 32.0-36.0 [facility] ([place]) Comment on above: Performed By: #### C BC, MG, ADIFF, BMP, ANEU, GFR, LARON #### [place] [address] MCV (RBC) [Entitic vol] 90.6 fL Normal 80.0-99.0 [facility] ([place]) Comment on above: Performed By: #### C BC, MG, ADIFF, BMP, ANEU, GFR, LARON #### [place] [address] Platelet 221 10 3/mcL Normal 150-450 [facility] ([place]) Comment on above: Performed By: #### C BC, MG, ADIFF, BMP, ANEU, GFR, LARON #### [place] [address] Platelet mean volume (Bld) [Entitic vol] 7.6 fL Normal 6.6-10.5 [facility] ([place] Comment on above: Performed By: #### C BC, MG, ADIFF, BMP, ANEU, GFR, LARON #### [place] [address] RBC 3.24 10 6/mcL Low 4.10-5.30 [facility] ([place]) Comment on above: Performed By: #### C BC, MG, ADIFF, BMP, ANEU, GFR, LARON #### [address] [address] WBC 7.2 10 3/mcL Normal 4.5-10.8 [facility] ([place]) Comment on above: Performed By: #### C BC, MG, ADIFF, BMP, ANEU, GFR, LARON #### [address] [address] LABORATORYOrdered By: SYSTEM SYSTEM on 02-13-2023 Basophils (Bld) [#/Vol] 0.0 103/mcL Normal 0.0 - 0.3 10^3/mcL Workflow SS Basophils/100 WBC (Bld) 0.3 % [...] 0.3 103/mcL Normal 0.0 - 0.7 10^3/mcL AH Workflow SS Eosinophils/100 WBC (Bld) 4.0 % Normal 0.0 - 6.0 % AH Workflow SS Erythrocyte distribution width (RBC) [Ratio] 14.2 % Normal 11.5 - 15.5 % AH [...] 5.0 mEq/L ADM SS RBC (Bld) [#/Vol] 3.24 106/mcL Low 4.10 - 5.3 0 10^6/mcL AH Workflow SS Sodium [Moles/Vol] 140 mmol/L Normal 136 - 145 mEq/L ADM SS Urea nitrogen [Mass/Vol] 11.0 mg/dL Normal 8.0 - 22.0 mg/dL ADM SS Urea nitrogen/Creatinine [Mass ratio] 20.8 ratio Normal 10.0 - 22.0 ratio AH ADM SS WBC (Bld) [#/Vol] 7.2 103/mcL Normal 4.5 - 10.8 10^3/mcL Workflow SS .Auto Diffon 02-11-2023 Basophil, Absolute 0.0 10 3/mcL Normal 0.0-0.3 [facility] ([place]) Comment on above: Performed By: #### C BC, MG, ADIFF, BMP, ANEU, GFR, LARON #### [address] [address] Basophils/100 WBC (Bld) 0.5 % Normal 0.0-2.5 [facility] ([place]) Comment on above: Performed By: #### C BC, MG, ADIFF, BMP, ANEU, GFR, LARON #### [address] [address] Eosinophil, Absolute 0.4 10 3/mcL Normal 0.0-0.7 [facility] ([place]) Comment on above: Performed By: #### C BC, MG, ADIFF, BMP, ANEU, GFR, LARON #### [address] [address] Eosinophils/100 WBC (Bld) 5.1 % Normal 0.0-6.0 [facility] ([place]) Comment on above: Performed By: #### C BC, MG, ADIFF, BMP, ANEU, GFR, LARON #### [address] [address] Lymphocyte, Absolute 1.6 10 3/mcL Normal 0.9-4.3 [facility] ([place] Comment on above: Performed By: #### C BC, MG, ADIFF, BMP, ANEU, GFR, LARON #### [address] [address] Lymphocytes/100 WBC (Bld) 18.9 % Low 20.0-40.0 [facility] ([place]) Comment on above: Performed By: #### C BC, MG, ADIFF, BMP, ANEU, GFR, LARON #### [address] [address] Monocyte, Absolute 0.9 10 3/mcL Normal 0.1-1.4 [facility] ([place]) Comment on above: Performed By: #### C BC, MG, ADIFF, BMP, ANEU, GFR, LARON #### [address] [address] Monocytes/100 WBC (Bld) 11.1 % Normal 2.0-13.0 [facility] ([place]) Comment on above: Performed By: #### C BC, MG, ADIFF, BMP, ANEU, GFR, LARON #### [address] [address] Neutrophils/100 WBC (Bld) 64.4 % Normal 50.0-75.0 [facility] ([place]) Comment on above: Performed By: #### C BC, MG, ADIFF, BMP, ANEU, GFR, LARON #### [address] [address] .GFRon 02-11-2023 GFR >60 Normal [facility] ([place]) Comment on above: Result Comment: GFR Population [...] MG, ADIFF, BMP, ANEU, GFR, LARON #### [address] [address] GFR Non- >60 Normal [facility] ([place]) Comment on above: Result Comment: GFR Population [...] MG, ADIFF, BMP, ANEU, GFR, LARON #### [address] [address] .NEUABSon 02-11-2023 Neutrophil, Absolute 5.4 10 3/mcL Normal 2.3-8.1 [facility] ([place] Comment on above: Performed By: #### C BC, MG, ADIFF, BMP, ANEU, GFR, LARON #### [address] [address] BMPon 02-11-2023 BUN/Creatinine Ratio 28.8 ratio High 10.0-22.0 [facility] ([place]) Comment on above: Performed By: #### C BC, MG, ADIFF, BMP, ANEU, GFR, LARON #### [address] [address] Calcium [Mass/Vol] 8.7 mg/dL Normal 8.7-10.4 [facility] ([place] Comment on above: Performed By: #### C BC, MG, ADIFF, BMP, ANEU, GFR, LARON #### [place] [id number] Chloride [Moles/Vol] 107 mmol/L Normal 98-110 [facility] ([place]) Comment on above: Performed By: #### C BC, MG, ADIFF, BMP, ANEU, GFR, LARON #### [place] [id number] CO2 [Moles/Vol] 29 mmol/L Normal 22-32 Count includes the [facility] ([place] Comment on above: Performed By: #### C BC, MG, ADIFF, BMP, ANEU, GFR, LARON #### [place] [address] Creatinine [Mass/Vol] 0.80 mg/dL Normal 0.50-1.20 [facility] ([place]) Comment on above: Performed By: #### C BC, MG, ADIFF, BMP, ANEU, GFR, LARON #### [place] [address] Electrolyte Balance 5.0 mEq/L Normal 4.0-15.0 [facility] ([place]) Comment on above: Performed By: #### C BC, MG, ADIFF, BMP, ANEU, GFR, LARON #### [place] [id number] Glucose [Mass/Vol] 98 mg/dL Normal 82-115 [facility] ([place] Comment on above: Performed By: #### C BC, MG, ADIFF, BMP, ANEU, GFR, LARON #### [place] [id number] Potassium [Moles/Vol] 3.4 mmol/L Low 3.5-5.0 [facility] ([place]) Comment on above: Performed By: #### C BC, MG, ADIFF, BMP, ANEU, GFR, LARON #### [place] [address] Sodium [Moles/Vol] 141 mmol/L Normal 136-145 [facility] ([place]) Comment on above: Performed By: #### C BC, MG, ADIFF, BMP, ANEU, GFR, LARON #### [place] [address] Urea nitrogen [Mass/Vol] 23.0 mg/dL High 8.0-22.0 [facility] ([place]) Comment on above: Performed By: #### C BC, MG, ADIFF, BMP, ANEU, GFR, LARON #### [place] [id number] CBCon 02-11-2023 Erythrocyte distribution width (RBC) [Ratio] 13.9 % Normal 11.5-15.5 [facility] ([place]) Comment on above: Performed By: #### C BC, MG, ADIFF, BMP, ANEU, GFR, LARON #### [place] [address] Hematocrit (Bld) [Volume fraction] 28.6 % Low 34.0-46.0 [facility] ([place]) Comment on above: Performed By: #### C BC, MG, ADIFF, BMP, ANEU, GFR, LARON #### [place] [address] Hgb 9.9 G/dL Low 12.0-16.0 [facility] ([place]) Comment on above: Performed By: #### C BC, MG, ADIFF, BMP, ANEU, GFR, LARON #### [place] [address] MCH (RBC) [Entitic mass] 31.2 pg Normal 27.0-33.0 [facility] ([place]) Comment on above: Performed By: #### C BC, MG, ADIFF, BMP, ANEU, GFR, LARON #### [place] [id number] MCHC 34.7 G/dL Normal 32.0-36.0 [facility] ([place]) Comment on above: Performed By: #### C BC, MG, ADIFF, BMP, ANEU, GFR, LARON #### [place] [address] MCV (RBC) [Entitic vol] 89.9 fL Normal 80.0-99.0 [facility] ([place] Comment on above: Performed By: #### C BC, MG, ADIFF, BMP, ANEU, GFR, LARON #### [place] [address] Platelet 201 10 3/mcL Normal 150-450 [facility] ([place] Comment on above: Performed By: #### C BC, MG, ADIFF, BMP, ANEU, GFR, LARON #### [place] [address] Platelet mean volume (Bld) [Entitic vol] 7.9 fL Normal 6.6-10.5 [facility] ([place]) Comment on above: Performed By: #### C BC, MG, ADIFF, BMP, ANEU, GFR, LARON #### [place] [address] RBC 3.18 10 6/mcL Low 4.10-5.30 [facility] ([place]) Comment on above: Performed By: #### C BC, MG, ADIFF, BMP, ANEU, GFR, LARON #### [place] [address] WBC 8.4 10 3/mcL Normal 4.5-10.8 [facility] ([place]) Comment on above: Performed By: #### C BC, MG, ADIFF, BMP, ANEU, GFR, LARON #### [place] [address] CORTon 02-11-2023 Cortisol Level 17.4 mcg/dL Normal Count includes the [facility] ([place]) Comment on above: Result Comment: [place] isol AM Reference Range 6.5-26.0 mcg/dL Cortisol PM Reference Range 3.5-15.0 mcg/dL Performed By: #### C BC, MG, ADIFF, BMP, ANEU, GFR, LARON #### [place] [address] LABORATORYOrdered By: SYSTEM SYSTEM on 02-11-2023 Basophils (Bld) [#/Vol] 0.0 103/mcL Normal 0.0 - 0.3 10^3/mcL Workflow SS Basophils/100 WBC (Bld) 0.5 % Normal 0.0 - 2.5 % Workflow SS Calcium [Mass/Vol] 8.7 mg/dL Normal 8.7 - 10. 4 mg/dL ADM SS Chloride [Moles/Vol] 107 mmol/L Normal 98 - 11 0 mEq/L ADM SS CO2 [Moles/Vol] 29 mmol/L Normal 22 - 32 mEq/L ADM SS Cortisol [Mass/Vol] 17.4 ug/dL Invalid Interpretation Code ADM SS Comment on above: Interpretive Data: [...] 5.4 103/mcL Normal 2.3 - 8.1 10^3/mcL Workflow SS Neutrophils/100 WBC (Bld) 64.4 % Normal 50.0 - 75.0 % AH Workflow SS Platelet mean volume (Bld) [Entitic vol] 7.9 fL Normal 6.6 - 10.5 fL Workflow SS Platelets (Bld) [#/Vol] 201 103/mcL Normal 150 - 450 10^3/mcL AH Workflow SS Potassium [Moles/Vol] 3.4 mmol/L Low 3.5 - 5.0 mEq/L AH ADM SS RBC (Bld) [#/Vol] 3.18 106/mcL Low 4.10 - 5.3 0 10^6/mcL AH Workflow SS Sodium [Moles/Vol] 141 mmol/L Normal 136 - 145 mEq/L ADM SS Urea nitrogen [Mass/Vol] 23.0 mg/dL High 8.0 - 22.0 mg/dL ADM SS Urea nitrogen/Creatinine [Mass ratio] 28.8 ratio High 10.0 - 22.0 ratio AH ADM SS WBC (Bld) [#/Vol] 8.4 103/mcL Normal 4.5 - 10.8 10^3/mcL Workflow SS MGon 02-11-2023 Magnesium [Mass/Vol] 1.8 mg/dL Normal 1.6-2.4 [facility] ([place]) Comment on above: Performed By: #### C BC, MG, ADIFF, BMP, ANEU, GFR, LARON #### [address] [address] .Auto Diffon 02-09-2023 Basophil, Absolute 0.0 10 3/mcL Normal 0.0-0.3 [facility] ([place]) Comment on above: Performed By: #### B MP, CBC, ANEU, GFR, ADIFF #### [address] [address] Basophils/100 WBC (Bld) 0.5 % Normal 0.0-2.5 [facility] ([place] Comment on above: Performed By: #### B MP, CBC, ANEU, GFR, ADIFF #### [address] [address] Eosinophil, Absolute 0.4 10 3/mcL Normal 0.0-0.7 [facility] ([place] Comment on above: Performed By: #### B MP, CBC, ANEU, GFR, ADIFF #### [address] [address] Eosinophils/100 WBC (Bld) 3.7 % Normal 0.0-6.0 [facility] ([place]) Comment on above: Performed By: #### B MP, CBC, ANEU, GFR, ADIFF #### [address] [address] Lymphocyte, Absolute 1.2 10 3/mcL Normal 0.9-4.3 [facility] ([place] Comment on above: Performed By: #### B MP, CBC, ANEU, GFR, ADIFF #### [address] [address] Lymphocytes/100 WBC (Bld) 13.0 % Low 20.0-40.0 [facility] ([place]) Comment on above: Performed By: #### B MP, CBC, ANEU, GFR, ADIFF #### [address] [address] Monocyte, Absolute 1.0 10 3/mcL Normal 0.1-1.4 [facility] ([place]) Comment on above: Performed By: #### B MP, CBC, ANEU, GFR, ADIFF #### [address] [address] Monocytes/100 WBC (Bld) 10.7 % Normal 2.0-13.0 [facility] ([place]) Comment on above: Performed By: #### B MP, CBC, ANEU, GFR, ADIFF #### [address] [address] Neutrophils/100 WBC (Bld) 72.1 % Normal 50.0-75.0 [facility] ([place]) Comment on above: Performed By: #### B MP, CBC, ANEU, GFR, ADIFF #### [address] [address] .GFRon 02-09-2023 GFR >60 Normal [facility] ([place]) Comment on above: Result Comment: GFR Population [...] MG, ADIFF, BMP, ANEU, GFR, LARON #### [address] [address] GFR Non- >60 Normal [facility] ([place]) Comment on above: Result Comment: GFR Population [...] MG, ADIFF, BMP, ANEU, GFR, LARON #### [address] [address] .NEUABSon 02-09-2023 Neutrophil, Absolute 6.9 10 3/mcL Normal 2.3-8.1 [facility] ([place] Comment on above: Performed By: #### C BC, MG, ADIFF, BMP, ANEU, GFR, LARON #### [address] [address] BMPon 02-09-2023 BUN/Creatinine Ratio 27.1 ratio High 10.0-22.0 [facility] ([place]) Comment on above: Order Comment: Routi ne for 0501 the morning of patient admission. Performed By: #### C BC, MG, ADIFF, BMP, ANEU, GFR, LARON #### [place] [address] Calcium [Mass/Vol] 9.0 mg/dL Normal 8.7-10.4 [facility] ([place] Comment on above: Order Comment: Routi ne for 0501 the morning of patient admission. Performed By: #### C BC, MG, ADIFF, BMP, ANEU, GFR, LARON #### [place] [address] Chloride [Moles/Vol] 109 mmol/L Normal 98-110 [facility] ([place] Comment on above: Order Comment: Routi ne for 0501 the morning of patient admission. Performed By: #### C BC, MG, ADIFF, BMP, ANEU, GFR, LARON #### [place] [address] CO2 [Moles/Vol] 27 mmol/L Normal 22-32 Count includes the [facility] ([place] Comment on above: Order Comment: Routi ne for 0501 the morning of patient admission. Performed By: #### C BC, MG, ADIFF, BMP, ANEU, GFR, LARON #### [place] [address] Creatinine [Mass/Vol] 0.70 mg/dL Normal 0.50-1.20 [facility] ([place] Comment on above: Order Comment: Routi ne for 0501 the morning of patient admission. Performed By: #### C BC, MG, ADIFF, BMP, ANEU, GFR, LARON #### [place] [address] Electrolyte Balance 5.0 mEq/L Normal 4.0-15.0 [facility] ([place] Comment on above: Order Comment: Routi ne for 0501 the morning of patient admission. Performed By: #### C BC, MG, ADIFF, BMP, ANEU, GFR, LARON #### [place] [id number] Glucose [Mass/Vol] 102 mg/dL Normal 82-115 [facility] ([place] Comment on above: Order Comment: Routi ne for 0501 the morning of patient admission. Performed By: #### C BC, MG, ADIFF, BMP, ANEU, GFR, LARON #### [place] [address] Potassium [Moles/Vol] 3.4 mmol/L Low 3.5-5.0 [facility] ([place] Comment on above: Order Comment: Routi ne for 0501 the morning of patient admission. Performed By: #### C BC, MG, ADIFF, BMP, ANEU, GFR, LARON #### [place] [id number] Sodium [Moles/Vol] 141 mmol/L Normal 136-145 [facility] ([place] Comment on above: Order Comment: Routi ne for 0501 the morning of patient admission. Performed By: #### C BC, MG, ADIFF, BMP, ANEU, GFR, LARON #### [place] [id number] Urea nitrogen [Mass/Vol] 19.0 mg/dL Normal 8.0-22.0 [facility] ([place]) Comment on above: Order Comment: Routi ne for 0501 the morning of patient admission. Performed By: #### C BC, MG, ADIFF, BMP, ANEU, GFR, LARON #### [place] [id number] CBCon 02-09-2023 Erythrocyte distribution width (RBC) [Ratio] 14.0 % Normal 11.5-15.5 [facility] ([place]) Comment on above: Order Comment: Routi ne for 0501 the morning of patient admission. Performed By: #### B MP, CBC, ANEU, GFR, ADIFF #### [place] [id number] Hematocrit (Bld) [Volume fraction] 28.5 % Low 34.0-46.0 [facility] ([place]) Comment on above: Order Comment: Routi ne for 0501 the morning of patient admission. Performed By: #### B MP, CBC, ANEU, GFR, ADIFF #### [place] [id number] Hgb 9.6 G/dL Low 12.0-16.0 [facility] ([place]) Comment on above: Order Comment: Routi ne for 0501 the morning of patient admission. Performed By: #### B MP, CBC, ANEU, GFR, ADIFF #### [place] [id number] MCH (RBC) [Entitic mass] 30.4 pg Normal 27.0-33.0 [facility] ([place]) Comment on above: Order Comment: Routi ne for 0501 the morning of patient admission. Performed By: #### B MP, CBC, ANEU, GFR, ADIFF #### [place] [address] MCHC 33.8 G/dL Normal 32.0-36.0 [facility] ([place]) Comment on above: Order Comment: Routi ne for 0501 the morning of patient admission. Performed By: #### B MP, CBC, ANEU, GFR, ADIFF #### [place] [id number] MCV (RBC) [Entitic vol] 89.7 fL Normal 80.0-99.0 [facility] ([place]) Comment on above: Order Comment: Routi ne for 0501 the morning of patient admission. Performed By: #### B MP, CBC, ANEU, GFR, ADIFF #### [place] [id number] Platelet 186 10 3/mcL Normal 150-450 [facility] ([place]) Comment on above: Order Comment: Routi ne for 0501 the morning of patient admission. Performed By: #### B MP, CBC, ANEU, GFR, ADIFF #### [place] [id number] Platelet mean volume (Bld) [Entitic vol] 8.0 fL Normal 6.6-10.5 [facility] ([place]) Comment on above: Order Comment: Routi ne for 0501 the morning of patient admission. Performed By: #### B MP, CBC, ANEU, GFR, ADIFF #### [place] [id number] [place] [address] RBC 3.18 10 6/mcL Low 4.10-5.30 [facility] ([place]) Comment on above: Order Comment: Routi ne for 0501 the morning of patient admission. Performed By: #### B MP, CBC, ANEU, GFR, ADIFF #### [address] [address] WBC 9.5 10 3/mcL Normal 4.5-10.8 [facility] ([place]) Comment on above: Order Comment: Routi ne for 0501 the morning of patient admission. Performed By: #### B MP, CBC, ANEU, GFR, ADIFF #### [address] [address] [address] THORAX W/ CONTRASTon 01-0 CT THORAX W/ CONTRAST ORIGINAL EXAMINATION: CT [...] 02/08/2023 10:26:14 PM Ordering Provider: LIZ SY [facility] ([place]) LABORATORYOrdered By: Keeley Hester on 02-09-2023 Appearance [...] 02-09-2023 Color (U) Yellow Normal [facility] ([place]) Comment on above: Performed By: #### C BC, MG, ADIFF, BMP, ANEU, GFR, LARON #### [address] [address] Glucose (U) [Mass/Vol] Negative Normal Negative [facility] ([place]) Comment on above: Performed By: #### C BC, MG, ADIFF, BMP, ANEU, GFR, LARON #### [address] [address] Ketones Ql (U) 15 mg/dL Abnormal Neg-Trace [facility] ([place]) Comment on above: Performed By: #### C BC, MG, ADIFF, BMP, ANEU, GFR, LARON #### [address] [address] UA Appear Clear Normal Clear [facility] ([place]) Comment on above: Performed By: #### C BC, MG, ADIFF, BMP, ANEU, GFR, LARON #### [address] [address] UA Blood Trace Normal Neg-Trace [facility] ([place]) Comment on above: Performed By: #### C BC, MG, ADIFF, BMP, ANEU, GFR, LARON #### [address] [address] UA Leuk Est Moderate Abnormal Negative [facility] ([place]) Comment on above: Performed By: #### C BC, MG, ADIFF, BMP, ANEU, GFR, LARON #### [address] [address] UA Nitrite Negative Normal Negative [facility] ([place]) Comment on above: Performed By: #### C BC, MG, ADIFF, BMP, ANEU, GFR, LARON #### [address] [address] UA pH 7.0 Normal 5.0 - 8.0 [facility] ([place]) Comment on above: Performed By: #### C BC, MG, ADIFF, BMP, ANEU, GFR, LARON #### [address] [address] UA Protein Negative Normal Negative [facility] ([place]) Comment on above: Performed By: #### C BC, MG, ADIFF, BMP, ANEU, GFR, LARON #### [address] [address] UA Spec Grav 1.025 Normal 1.006-1.029 [facility] ([place]) Comment on above: Performed By: #### C BC, MG, ADIFF, BMP, ANEU, GFR, LARON #### [place] [address] UA Specimen Type Not Given Normal [facility] ([place]) Comment on above: Performed By: #### C BC, MG, ADIFF, BMP, ANEU, GFR, LARON #### [address] [address] UA Urobilinogen 1.0 E.U./dL Normal 0.2-1.0 [facility] ([place]) Comment on above: Performed By: #### C BC, MG, ADIFF, BMP, ANEU, GFR, LARON #### [place] [address] Urobilinogen (U) [Mass/Vol] Negative Normal Neg-Trace [facility] ([place]) Comment on above: Performed By: #### C BC, MG, ADIFF, BMP, ANEU, GFR, LARON #### [address] [address] UAMICon 02-09-2023 UA Bacteria 1+ /hpf Abnormal Negative [facility] ([place]) Comment on above: Performed By: #### C BC, MG, ADIFF, BMP, ANEU, GFR, LARON #### [address] [address] UA RBC 10-20 Abnormal 0-2 [facility] ([place]) Comment on above: Performed By: #### C BC, MG, ADIFF, BMP, ANEU, GFR, LARON #### [address] [address] UA Squam Epithelial 5-10 Normal 0-20 [facility] ([place]) Comment on above: Performed By: #### C BC, MG, ADIFF, BMP, ANEU, GFR, LARON #### [address] [address] UA WBC 3-5 Normal 0-5 [facility] ([place]) Comment on above: Performed By: #### C BC, MG, ADIFF, BMP, ANEU, GFR, LARON #### [address] [address] Paula 02-08-2023 Ethanol Level <10.0 Normal [facility] ([place]) Comment on above: Performed By: #### A LC #### [place] [id number] C-REACTIVE PROTEINon 024 CRP 3.46 mg/dl High 0.00 - 0.90 [facility] Comment on above: Performed By: #### 2 10496 #### [facility],[address] [place] [address] CBC + DIFFon 02-08-2023 Baso # 0.00 x10EE3/UL Normal 0.00 - 0.10 [facility] Comment on above: Performed By: #### 2 51692 #### [facility],[address] [place] [address] Basophils/100 WBC (Bld) 0.3 % Normal 0.0 - 2.0 [facility] Comment on above: Performed By: #### 2 97920 #### [facility],[address] [place] [address] CBC + DIFF Normal [facility] Comment on above: Result Comment: CBC- COMPLETE BLOOD COUNT Performed By: #### 2 09320 #### [facility],[address] [place] [address] EO # 0.20 x10EE3/UL Normal 0.00 - 0.50 [facility] Comment on above: Performed By: #### 2 36541 #### [facility],[address] [place] [address]64 Eosinophils/100 WBC (Bld) 2.5 % Normal 0.0 - 7.0 [facility] Comment on above: Performed By: #### 2 93743 #### [facility],[address] [place] [address] Erythrocyte distribution width (RBC) [Ratio] 14.3 % Normal 12.0 - 15.6 [facility] Comment on above: Performed By: #### 2 84589 #### [facility],[address] [place] [address] Hematocrit (Bld) [Volume fraction] 31.3 % Low 34.0 - 46.0 [facility] Comment on above: Performed By: #### 2 22416 #### [facility],[address] [place] [address] Hemoglobin (Bld) [Mass/Vol] 10.1 g/dL Low 12.0 - 16.0 [facility] Comment on above: Performed By: #### 2 50998 #### [facility],[address] [place] [address] Lymph # 0.80 x10EE3/UL Normal 0.80 - 2.80 [facility] Comment on above: Performed By: #### 2 86411 #### [facility],[address] [place] [address] Lymphocytes/100 WBC (Bld) 9.1 % Low 20.0 - 45.0 [facility] Comment on above: Performed By: #### 2 36771 #### [facility],[address] [place] [address] MANUAL DIFF N/A Normal [facility] Comment on above: Performed By: #### 2 31820 #### [facility],[address] [place] [address] MCH (RBC) [Entitic mass] 30 pg Normal 27 - 33 [facility] Comment on above: Performed By: #### 2 60621 #### [facility],[address] [place] [address] MCHC 32 X10 3 Normal 32 - 36 [facility] Comment on above: Performed By: #### 2 19381 #### [facility],[address] [place], [place] [id number] MCV (RBC) [Entitic vol] 91 fL Normal 80 - 99 [facility] Comment on above: Performed By: #### 2 91164 #### [facility],[address] [place] [address] Baxter # 0.80 x10EE3/UL Normal 0.20 - 1.00 [facility] Comment on above: Performed By: #### 2 76176 #### [facility],[address] [place] [address] MONOS % 8.9 % Normal 0.0 - 10.0 [facility] Comment on above: Performed By: #### 2 25275 #### [facility],[address] [place], [place] [id number] Morphology Andre (Bld) [Interp] N/A Normal [facility] Comment on above: Result Comment: {CD] Performed By: #### 2 51965 #### [facility],[address] [place] [address] Neut # 7.40 x10EE3/UL High 1.50 - 7.10 [facility] Comment on above: Performed By: #### 2 46288 #### [facility],[address] [place], [place] [phone] Neutrophils/100 WBC (Bld) 79.2 % High 46.0 - 76.0 [facility] Comment on above: Performed By: #### 2 40659 #### [facility],[address] [place] [address] PLATELET 224 x10EE3/UL Normal 150 - 450 [facility] Comment on above: Performed By: #### 2 47843 #### [facility],[address] [place] [address] Platelet mean volume (Bld) [Entitic vol] 8.2 fL Normal 6.6 - 10.5 [facility] Comment on above: Result Comment: AUTO MATED DIFFERENTIAL Performed By: #### 2 23136 #### [facility],[address] [place] [address] RBC 3.43 x 10EE6/UL Low 4.10 - 5.30 [facility] Comment on above: Performed By: #### 2 01540 #### [facility],[address] [place] [address] WBC 9.3 x 10EE3/UL Normal 4.5 - 10.8 [facility] Comment on above: Performed By: #### 2 46503 #### [facility],[address] [place], [place] [phone] CMP with eGFRon 02-08-2023 AGE 77 years Normal [facility] Comment on above: Performed By: #### 2 44508 #### [facility],[address] [place] [address] Albumin [Mass/Vol] 3.3 g/dL Low 3.4 - 5.0 [facility] Comment on above: Performed By: #### 2 16283 #### [facility],[address] [place] [address] Albumin/Globulin [Mass ratio] 0.8 {ratio} Low 0.9 - 1.6 [facility] Comment on above: Performed By: #### 2 25536 #### [facility],[address] [place] [address] ALK PHOS 85 U/L Normal 46 - 116 [facility] Comment on above: Performed By: #### 2 22003 #### [facility],[address] [place] [address]363 ALT [Catalytic activity/Vol] 8 U/L Low 14 - 59 [facility] Comment on above: Performed By: #### 2 42408 #### [facility],[address] [place] [address] Anion gap [Moles/Vol] 13 mmol/L Normal 10 - 20 [facility] Comment on above: Performed By: #### 2 59686 #### [facility],[address] [place] [address]69 AST [Catalytic activity/Vol] 26 U/L Normal 13 - 39 [facility] Comment on above: Performed By: #### 2 38536 #### [facility],[address] [place] [address] B/C RATIO 26 ratio Normal 0 - 30 [facility] Comment on above: Performed By: #### 2 14214 #### [facility],[address] [place] [address] Bilirubin [Mass/Vol] 1.0 mg/dL Normal 0.2 - 1.0 [facility] Comment on above: Performed By: #### 2 81976 #### [facility],[address] [place] [address] Calcium [Mass/Vol] 9.5 mg/dL Normal 8.5 - 10.1 [facility] Comment on above: Performed By: #### 2 31030 #### [facility],[address] [place] [address] Chloride [Moles/Vol] 103 mmol/L Normal 98 - 107 [facility] Comment on above: Performed By: #### 2 80584 #### [facility],[address] [place] [address] CMP with eGFR Normal [facility] Comment on above: Result Comment: COMP REHENSIVE METABOLIC PANEL Performed By: #### 2 45104 #### [facility],[address] [place] [address] 33595 CO2 [Moles/Vol] 28.9 mmol/L Normal 21.0 - 32.0 [facility] Comment on above: Performed By: #### 2 15478 #### [facility],[address] [place] [address] Creatinine [Mass/Vol] 1.02 mg/dL Normal 0.55 - 1.02 [facility] Comment on above: Performed By: #### 2 48761 #### [facility],[address] [place] [address]798 eGFR 53 ML/MINUTE Low 60 - 999 [facility] Comment on above: Performed By: #### 2 92882 #### [facility],[address] [place] [address] GFR/1.73 sq M.predicted among non-blacks MDRD (S/P/Bld) [Vol rate/Area] mL/min/{1.73_m2} Normal 60 - 999 [facility] Comment on above: Result Comment: ACCO RDING TO THE NATIONAL KIDNEY DISEASE EDUCATION PROGRAM(NKDE), A NORMAL eGFR IS A VALUE GREATER THAN OR EQUAL TO 60 ML/MIN/1.73 SQ METERS. CHRONIC KIDNEY DISEASE: <60mL/MIN/1.73 SQ METERS KIDNEY FAILURE: <15mL/MIN/1.73 SQ METERS THIS TEST SHOULD ONLY BE USED FOR PATIENTS 18 YEARS OF AGE AND OLDER. Performed By: #### 2 34038 #### [facility],[address] [place] [address] Globulin (S) [Mass/Vol] 4.1 g/dL High 1.5 - 3.8 [facility] Comment on above: Performed By: #### 2 37823 #### [facility],[address] [place] [address]23 Glucose [Mass/Vol] 95 mg/dL Normal 74 - 106 [facility] Comment on above: Performed By: #### 2 57829 #### [facility],[address] [place] [address] Potassium [Moles/Vol] 3.8 mmol/L Normal 3.5 - 5.1 [facility] Comment on above: Performed By: #### 2 99254 #### [facility],[address] [place] [address] Protein [Mass/Vol] 7.4 g/dL Normal 6.4 - 8.2 [facility] Comment on above: Performed By: #### 2 11865 #### [place] [address] Sodium [Moles/Vol] 141 mmol/L Normal 136 - 145 [facility] Comment on above: Performed By: #### 2 97594 #### [place] [address] Urea nitrogen [Mass/Vol] 27 mg/dL High 7 - 18 [facility] Comment on above: Performed By: #### 2 07121 #### [place] [address] CORONAVIRUS (SARS) ANTIGEN T ESTon 02-08-2023 EXTERNAL QC DONE? YES Normal [facility] Comment on above: Performed By: #### 2 29201 ####[place] [address] INTERNAL CONTROL PASS Normal [facility] Comment on above: Performed By: #### 2 36786 ####[place] [address] SARS ANTIGEN Negative Normal NORMAL: NEGATIVE [facility] Comment on above: Performed By: #### 2 22484 ####[place] [address] SEND TO ? NO Normal [facility] Comment on above: Result Comment: SARS -CoV-2 THIS TEST IS BEING USED UNDER THE FDA EUA PROCEDURE. THIS ASSAY HAS BEEN VALIDATED AT [facility] FOR USE WITH NASAL AND NASOPHARYNGEAL SWAB [...] PUBLIC HEALTH AUTHORITIES. Performed By: #### 2 12455 ####[place] [address] CT BRAIN W/O CONTRASTon CT BRAIN W/O CONTRAST [place] [address] Patient: ROSARIO MCNALLY Phone#: : 1945 Age: 77 Gender: F Pt. Type: ER Account: [id number] Location: [facility] Ordering: GREY CONNOR Exam Date: 02/08/2023/13:38 Family Phys: CHICO COLLIER Charge Code: [id number] Physician: [place] Order #: [id number] Dose#: 57.50 mGy PROCEDURE: CT BRAIN WITHOUT CONTRAST COMPARISON: [facility], CT, BRAIN W/O CON, 06/10/2022, 21:04. INDICATIONS: [...] significant mucosal thickening or fluid. ORBITS: Left shinnecock ocular lenses absent. OTHER: Atherosclerotic calcifications of the intracranial arteries. CONCLUSION: 1. Right occipital subarachnoid hemorrhage. This finding was communicated by telephone to Dr. Grey Connor at the dictation time shown below. 2. Global atrophy and atherosclerosis Dictated by: Adilene Bui MD on 02/08/2023 at 13:50 Approved by: Adilene Bui MD on 02/08/2023 at 13:59 Normal [facility] CT SPINE CERVICAL W/O CONTRA STon 02-08-2023 [...] 02/08/2023 6:55:16 PM Ordering Provider: LIZ SY [facility]) LABORATORYOrdered By: SYSTEM SYSTEM on 02-08-2023 Ethanol [Mass/Vol] mg/dL Invalid Interpretation Code AH ADM SS LIPASEon 02-08-2023 Lipase [Catalytic activity/Vol] 20.0 U/L Normal 15.0 - 78.0 [facility] Comment on above: Result Comment: *PLE ASE NOTE THAT RANGES FOR LIPASE HAVE CHANGED OF 02/04/23 DUE TO AN ASSAY UPDATE BY THE SUPERVISOR INSTRUMENT REPAIR.THE NEW ASSAY RANGE IS 6-250 U/L, WITH A REFERENCE RANGE OF 16-77 U/L. Performed By: #### 2 95344 #### [facility],[address] [place], [place] [id number] TROPONIN I, HIGH SENSITIVITY on 02-08-2023 HS TROPONIN 13.2 pg/mL Normal 0.0 - 51.4 [facility] Comment on above: Performed By: #### 2 96872 #### [facility],[address] [place], [place] [phone] TSHon 02-08-2023 TSH Qn 1.80 m[IU]/L Normal 0.35 - 3.74 [facility] Comment on above: Performed By: #### 2 83765 #### [facility],[address] [place] [address]856 URINALYSISon 02-08-2023 Amorphous NONE Normal [facility] Comment on above: Performed By: #### 2 88111 ####[facility],[address] [place] [address] 47939 Bacteria 1+ Normal [facility] Comment on above: Performed By: #### 2 12986 ####[facility],[address] [place] [address]60 Bilirubin Ql (U) Negative Normal NORMAL: NEGATIVE [facility] Comment on above: Performed By: #### 2 23055 ####[facility],[address] [place] [address]3063 Casts NONE Normal [facility] Comment on above: Performed By: #### 2 78292 ####[facility],[address] [place] [address]15 Clarity (U) clear Normal NORMAL: CLEAR [facility] Comment on above: Performed By: #### 2 47268 ####[facility],[address] [place] [address] 76393 Color (U) keeley Normal NORMAL: YELLOW [facility] Comment on above: Performed By: #### 2 64464 ####[facility],[address] [place] [address] 21087 Crystals LM Nom (Urine sed) NONE Normal [facility] Comment on above: Performed By: #### 2 37014 ####[facility],[address] [place] [address] 92261 Epi Cells MODERATE Normal [facility] Comment on above: Performed By: #### 2 60902 ####[facility],[address] [place] [address] 58629 Glucose Ql (U) NORM Normal NORMAL: NORMAL [facility] Comment on above: Performed By: #### 2 17402 ####[facility],[address] [place] [address] 05294 Hemoglobin Ql (U) 50 Abnormal NORMAL: NEGATIVE [facility] Comment on above: Performed By: #### 2 72881 ####[facility],[address] [place] [address] 86352 Ketone 5 Abnormal NORMAL: NEGATIVE [facility] Comment on above: Performed By: #### 2 91423 ####[facility],[address] [place] [address] 95392 Leukocytes 25 Abnormal NORMAL: NEGATIVE [facility] Comment on above: Performed By: #### 2 86645 ####[facility],[address] [place], [place] [id number] Mucous NONE Normal [facility] Comment on above: Performed By: #### 2 24300 ####[facility],[address] [place] [address]221 Nitrite Ql (U) Negative Normal NORMAL: NEGATIVE [facility] Comment on above: Performed By: #### 2 59071 ####[facility],[address] [place] [address] 13124 pH (U) 6 [pH] Normal NORMAL: 5.0-8.0 [facility] Comment on above: Performed By: #### 2 01896 ####[facility],[address] [place] [address] 65927 Protein Ql (U) 15 Abnormal NORMAL: NEGATIVE [facility] Comment on above: Performed By: #### 2 28973 ####[facility],[address] [place] [address] 52062 Rbc 0-5 Normal 0-3/hpf [facility] Comment on above: Performed By: #### 2 32261 ####[facility],[address] [place] [address] 12030 Sp [place] 1.015 Normal NORMAL: 1.010-1.030 [facility] Comment on above: Performed By: #### 2 36724 ####[facility],[address] [place] [address] Specimen Type UNSPECIFIED Normal [facility] Comment on above: Performed By: #### 2 41744 ####[facility],[address] [place] [address] Urinalysis dipstick W Reflex Microscopic panel (U) SEE BELOW Normal [facility] Comment on above: Result Comment: MICR OSCOPIC Performed By: #### 2 32437 ####[facility],[address] [place] [address] Urobilinog 1 Abnormal NORMAL: NORMAL [facility] Comment on above: Performed By: #### 2 72100 ####[facility],[address] [place] [address] Wbc 1-5 Normal 0-5/hpf [facility] Comment on above: Performed By: #### 2 92272 ####[facility],[address] [place] [address] Yeast NONE Normal [facility] Comment on above: Performed By: #### 2 03062 ####[facility],[address] [place], [place] [id number] XR CHEST 1 VIEWon 02-08-2023 XR CHEST [...] Date: 02/08/2023 6:53:03 PM Ordering Provider: LIZ Tirado [facility] ([place]) HAND RT MIN 3 VIEWSon 2022 HAND RT MIN [address] [address] Patient: ROSARIO MCNALLY Phone#: : 1945 Age: 77 Gender: F Pt. Type: Out Account: [id number] Location: 052 Ordering: ERIK CHRISTIE Exam Date: 01/26/2023/15:00 Family Phys: Charge Code: [id number] Physician: Dallam Order #: [id number] Dose#: PROCEDURE: X-RAY HAND RT COMPLETE MIN [...] Simon MD on 01/26/2023 at 15:28 Normal [facility] CBC (INCLUDES DIFF/PLT)on Basophils (Bld) [#/Vol] 0.027 10*3/uL Normal 0-200 [facility] Comment on above: Performed By: #### 1 0231, 9605, 0290 #### [facility] [address] [address] Hotel Manager: Brayden England MD Basophils/100 WBC (Bld) 0.4 % Normal [facility] Comment on above: Performed By: #### 1 0231, 7230, 5246 #### [facility] [address] [place] [address] Hotel Manager: Brayden England MD Eosinophils (Bld) [#/Vol] 0.168 10*3/uL Normal 15-500 [facility] Comment on above: Performed By: #### 1 0231, 6399, 7600 #### [facility] of [address], [address] [place] [address] Hotel Manager: Brayden England MD Eosinophils/100 WBC (Bld) 2.5 % Normal [facility] Comment on above: Performed By: #### 1 023, 63, 7600 #### [facility] of [place] [address] Hotel Manager: Brayden England MD Erythrocyte distribution width (RBC) [Ratio] 13.2 % Normal 11.0-15.0 [facility] Comment on above: Performed By: #### 1 230, 63, 7600 #### [facility] of [address], [address] [place] [address] Hotel Manager: Brayden England MD Hematocrit (Bld) [Volume fraction] 36.1 % Normal 35.0-45.0 [facility] Comment on above: Performed By: #### 1 023, 63, 7600 #### [facility] of [place] [address] Hotel Manager: Brayden England MD Hemoglobin (Bld) [Mass/Vol] 11.0 g/dL Low 11.7-15.5 [facility] Comment on above: Performed By: #### 1 023, 63, 7600 #### [facility] of [address], [address] [place] [address] Hotel Manager: Brayden England MD Lymphocytes (Bld) [#/Vol] 1.467 10*3/uL Normal 850-3900 [facility] Comment on above: Performed By: #### 1 023, 63, 7600 #### [facility] of [place] [address] Hotel Manager: Brayden England MD Lymphocytes/100 WBC (Bld) 21.9 % Normal [facility] Comment on above: Performed By: #### 1 023, 63, 7600 #### [facility] of [place] [address] Hotel Manager: Brayden England MD MCH (RBC) [Entitic mass] 28.7 pg Normal 27.0-33.0 [facility] Comment on above: Performed By: #### 1 023, 63, 7600 #### [facility] of [place] [address] Hotel Manager: Brayden England MD MCHC (RBC) [Mass/Vol] 30.5 g/dL Low 32.0-36.[address] [facility] Comment on above: Performed By: #### 1 230, 63, 7600 #### [facility] of [place] [address] Hotel Manager: Brayden England MD MCV (RBC) [Entitic vol] 94.3 fL Normal 80.0-100.0 [facility] Comment on above: Performed By: #### 1 230, 63, 7600 #### [facility] of [place] [address] Hotel Manager: Brayden England MD Monocytes (Bld) [#/Vol] 0.583 10*3/uL Normal 200-950 [facility] Comment on above: Performed By: #### 1 023, 63, 7600 #### [facility] of [place] [address] Hotel Manager: Brayden England MD Monocytes/100 WBC (Bld) 8.7 % Normal [facility] Comment on above: Performed By: #### 1 023, 6399, 7600 #### [facility] of [place] [address] Hotel Manager: Brayden England MD Neutrophils (Bld) [#/Vol] 4.456 10*3/uL Normal 0797-2133 [facility] Comment on above: Performed By: #### 1 0231, 6399, 7600 #### [facility] of [place] [address] Hotel Manager: Brayden England MD Neutrophils/100 WBC (Bld) 66.5 % Normal [facility] Comment on above: Performed By: #### 1 0231, 6399, 7600 #### [facility] of [place] [address] Hotel Manager: Brayden England MD Platelet mean volume (Bld) [Entitic vol] 10.7 fL Normal 7.5-12.5 [facility] Comment on above: Performed By: #### 1 0231, 63, 7600 #### [facility] of [place] [address] Hotel Manager: Brayden England MD Platelets (Bld) [#/Vol] 252 10*3/uL Normal 140-400 [facility] Comment on above: Performed By: #### 1 0231, 63, 7600 #### [facility] of [place] [address] Hotel Manager: Brayden England MD RBC (Bld) [#/Vol] 3.83 10*6/uL Normal 3.80-5.10 [facility] Comment on above: Performed By: #### 1 0231, 63, 7600 #### [facility] of [place] [address] Hotel Manager: Brayden England MD WBC (Bld) [#/Vol] 6.7 10*3/uL Normal 3.8-10.8 [facility] Comment on above: Performed By: #### 1 0231, 6399, 7600 #### [facility] of [place] [address] Hotel Manager: Brayden England MD COMPREHENSIVE METABOLIC PANE [facility] 12-28-2022 Albumin [Mass/Vol] 3.9 g/dL Normal 3.6-5.1 [facility] Comment on above: Performed By: #### 1 0231, 6399, 7600 #### [facility] of [address], [address] [place] [address] Hotel Manager: Brayden England MD Albumin/Globulin [Mass ratio] 1.3 {ratio} Normal 1.0-2.5 [facility] Comment on above: Performed By: #### 1 0231, 6399, 7600 #### [facility] of [address], [address] [place] [address] Hotel Manager: Brayden England MD ALP [Catalytic activity/Vol] 87 U/L Normal 37-153 [facility] Comment on above: Performed By: #### 1 0231, 63, 7600 #### [facility] of [address], [address] [place] [address] Hotel Manager: Brayden England MD ALT [Catalytic activity/Vol] 8 U/L Normal 6-29 [facility] Comment on above: Performed By: #### 1 0231, 63, 7600 #### [facility] of [address], [address] [place] [address] Hotel Manager: Brayden England MD AST [Catalytic activity/Vol] 18 U/L Normal 10-35 [facility] Comment on above: Performed By: #### 1 0231, 6399, 7600 #### [facility] of [address], [address] [place] [address] Hotel Manager: Brayden England MD Bilirubin [Mass/Vol] 0.5 mg/dL Normal 0.2-1.2 [facility] Comment on above: Performed By: #### 1 0231, 6399, 7600 #### [facility] of [place] [address] Hotel Manager: Brayden England MD BUN/CREATININE RATIO SEE NOTE: Normal 6-22 [facility] Comment on above: Result Comment: Not Reported: BUN and Creatinine are within reference range. Performed By: #### 1 0231, 6399, 7600 #### [facility] of [address], [address] [place] [address] Hotel Manager: Brayden England MD Calcium [Mass/Vol] 9.4 mg/dL Normal 8.6-10.4 [facility] Comment on above: Performed By: #### 1 023, 63, 7600 #### [facility] of [place] [address] Hotel Manager: Brayden England MD Chloride [Moles/Vol] 104 mmol/L Normal 98-110 [facility] Comment on above: Performed By: #### 1 023, 63, 7600 #### [facility] of [place] [address] Hotel Manager: Brayden England MD CO2 [Moles/Vol] 30 mmol/L Normal 20-32 [facility] Comment on above: Performed By: #### 1 230, 63, 0 #### [facility] of [place] [address] Hotel Manager: Brayden England MD Creatinine [Mass/Vol] 0.78 mg/dL Normal 0.60-1.[address] [facility] Comment on above: Performed By: #### 1 230, 63, 7600 #### [facility] of [place] [address] Hotel Manager: Brayden England MD GFR/1.73 sq M.predicted among non-blacks MDRD (S/P/Bld) [Vol rate/Area] 79 mL/min/{1.73_m2} Normal > OR = 60 [facility] Comment on above: Performed By: #### 1 023, 63, 7600 #### [facility] of [place] [address] Hotel Manager: Brayden Englnad MD Globulin (S) [Mass/Vol] 3.0 g/dL Normal 1.9-3.7 [facility] Comment on above: Performed By: #### 1 023, 63, 4470 #### [facility] of [address], [address] [place] [address] Hotel Manager: Brayden England MD Glucose [Mass/Vol] 88 mg/dL Normal 65-99 [facility] Comment on above: Result Comment: Fasting reference interval Performed By: #### 1 0231, 6399, 7600 #### [facility] of [address], [address] [place] [address] Hotel Manager: Brayden England MD Potassium [Moles/Vol] 4.5 mmol/L Normal 3.5-5.[address] [facility] [address] [facility] Comment on above: Performed By: #### 1 0231, 6399, 7600 #### [facility] of [address], [address] [place] [address] Hotel Manager: Brayden England MD Protein [Mass/Vol] 6.9 g/dL Normal 6.1-8.1 [facility] Comment on above: Performed By: #### 1 0231, 6399, 7600 #### [facility] of [address], [address] [place] [address] Hotel Manager: Brayden England MD Sodium [Moles/Vol] 140 mmol/L Normal 135-146 [facility] Comment on above: Performed By: #### 1 0231, 6399, 7600 #### [facility] of [address], [address] [place] [address] Hotel Manager: Brayden England MD Urea nitrogen [Mass/Vol] 19 mg/dL Normal 7-25 [facility] Comment on above: Performed By: #### 1 0231, 6399, 7600 #### [facility] of [address], [address] [place] [address] Hotel Manager: Brayden England MD LIPID PANEL, [facility] [place] 11-2 Cholesterol [Mass/Vol] 155 mg/dL Normal <200 [facility] Comment on above: Performed By: #### 1 0231, 6399, 7600 #### [facility] of [address] [place] [address] Hotel Manager: Brayden England MD Cholesterol in HDL [Mass/Vol] 51 mg/dL Normal > OR = 50 [facility] Comment on above: Performed By: #### 1 023, 3632, 7970 #### [facility] [address], [address] [place] [address] Hotel Manager: Brayden England MD Cholesterol in LDL [Mass/Vol] [...] LDL-C. Bhaskar WEST et al. QUANG. 2013;310(19): 8940-9417 (http://education.GoEuro.Likeeds/faq/PIO588) Performed By: #### 1 023, 0047, 8810 #### [facility] [address], [address] [place] [address] Hotel Manager: Brayden England MD Cholesterol.total/Antonietta sterol in HDL [Mass ratio] 3.0 {ratio} Normal <5.0 [facility] Comment on above: Performed By: #### 1 023, 6168, 2440 #### [facility] [place] [address] Hotel Manager: Brayden England MD NON HDL CHOLESTEROL 104 mg/dL (calc) Normal <130 [facility] Comment on above: Result Comment: For patients with diabetes plus 1 major ASCVD risk factor, treating to a non-HDL-C goal of <100 mg/dL (LDL-C of <70 mg/dL) is considered a therapeutic option. Performed By: #### 1 0231, 4065, 2970 #### [facility] [address], [address] [place] [address] Hotel Manager: Brayden England MD Triglyceride [Mass/Vol] 91 mg/dL Normal <150 [facility] Comment on above: Performed By: #### 1 0231, 5881, 8410 #### [facility] [address], [address] [place] [address] Hotel Manager: Brayden England MD No Panel Informationon 12-27 155 mg/dL Normal [facility] 51 mg/dL Normal [facility] 91 mg/dL Normal [facility] 85 Normal [facility] 3.0 Normal 1.9 - 3.7 [facility] 104 Normal [facility] 88 mg/dL Normal 65 - 99 mg/dL [facility] 19 mg/dL Normal 7 - 25 mg/dL [facility] 0.78 mg/dL Normal 0.60 - 1.00 mg/dL [facility] 79 Normal [facility] SEE NOTE: Normal 6 - 22 [facility] 140 mmol/L Normal 135 - 146 mmol/L [facility] 4.5 mmol/L Normal 3.5 - 5.3 mmol/L [facility] 104 mmol/L Normal 98 - 110 mmol/L [facility] 30 mmol/L Normal 20 - 32 mmol/L [facility] 9.4 mg/dL Normal 8.6 - 10.4 mg/dL [facility] 6.9 g/dL Normal 6.1 - 8.1 g/dL [facility] 3.9 g/dL Normal 3.6 - 5.1 g/dL [facility] 1.3 Normal 1.0 - 2.5 [facility] 0.5 mg/dL Normal 0.2 - 1.2 mg/dL [facility] 87 U/L Normal 37 - 153 U/L [facility] 18 U/L Normal 10 - 35 U/L [facility] [employer] 8 U/L Normal 6 - 29 U/L [facility] 6.7 Normal 3.8 - 10.8 [facility] 3.83 {Million/uL} Normal 3.80 - 5.1 0 {Million/uL} [facility] 11.0 g/dL Abnormal 11.7 - 15.5 g/dL [facility] 36.1 % Normal 35.0 - 45.0 % [facility] 94.3 fL Normal 80.0 - 100.0 fL [facility] 28.7 pg Normal 27.0 - 33.0 pg [facility] 30.5 g/dL Abnormal 32.0 - 36.0 g/dL [facility] 13.2 % Normal 11.0 - 15.0 % [facility] 252 Normal 140 - 400 [facility] 10.7 fL Normal 7.5 - 12.5 fL [facility] 4456 {cells/uL} Normal 1500 - 7800 {cells/uL} [facility] 1467 {cells/uL} Normal 850 - 3900 {cells/uL} [facility] [employer] 583 {cells/uL} Normal 200 - 950 {cells/uL} [facility] [employer] 168 {cells/uL} Normal 15 - 500 {cells/uL} [facility] 27 {cells/uL} Normal 0 - 200 {cells/uL} [facility] [employer] 66.5 % Normal [facility] [employer] 21.9 % Normal [facility] [employer] 8.7 % Normal [facility] [employer] 2.5 % Normal [facility] [employer] 0.4 % Normal [facility] [employer] [employer] EMERGENCY REPORTon 3 EMERGENCY REPORT [facility] EMERGENCY ROOM REPORT NAME ACCOUNT SEX AGE ADMIT DISCHARGE PT MED. RECORD# NUMBER DATE DATE TYPE DALI, [id number] F 76 06/10/22 06/10/22 3 ROSARIO Lopez [id number] ROOM: ER DATE OF : 1945 DICTATING [...] Stew So DO 08/07/22 14:39 JOB #: [id number] Transcribed By: jose 08/07/22 15:10 Electronically signed by: MODESTO So DO 08/16/22 21:25 Page 2 of 2 ROSARIO MCNALLY Emergency Room Report Normal [facility] CT BRAIN W/O CONTRASTon 05-0 CT BRAIN W/O CONTRAST [place] [address] Patient: ROSARIO MCNALLY. Phone#: : 1945 Age: 76 Gender: F Pt. Type: ER Account: [id number] Location: 052 Ordering: DR. MARIA DEL CARMEN BLACKBURN Exam Date: 06/10/2022/21:04 Family Phys: CHICO COLLIER Charge Code: [id number] Physician: Dallam Order #: [id number] Dose#: 57.50 PROCEDURE: CT BRAIN WITHOUT CONTRAST COMPARISON: [facility], CT, BRAIN W/O CON, 04/24/2022, 10:47. INDICATIONS: [...] Simon MD on 06/10/2022 at 22:03 Normal [facility] CT CERVICAL W/O CONTRASTon 0 06-10-2022 CT CERVICAL W/O CONTRAST [place] [address] Patient: ROSARIO MCNALLY Phone#: : 1945 Age: 76 Gender: F Pt. Type: ER Account: [id number] Location: [facility] Ordering: DR. MARIA DEL CARMEN BLACKBURN Exam Date: 06/10/2022/21:04 Family Phys: CHICO COLLIER Charge Code: [id number] Physician: Dallam Order #: [id number] Dose#: 7.20 PROCEDURE: CT CERVICAL WITHOUT CONTRAST COMPARISON: [facility], CT, CERVICAL W/O CON, 04/24/2022, 10:47. INDICATIONS: [...] no evidence of acute fracture or subluxation. [place] [address] Patient: ROSARIO MCNALLY Phone#: : 1945 Age: 76 Gender: F Pt. Type: ER Account: [id number] Location: 2 Ordering: DR. MARIA DEL CARMEN BLACKBURN Exam Date: 06/10/2022/21:04 Family Phys: CHICO CARRASCOSRINIVAS Charge Code: [id number] Physician: Dallam Order #: [id number] Dose#: 7.20 Dictated by: Elisabeth Simon MD on 06/10/2022 at 22:04 Approved by: Elisabeth Simon MD on 06/10/2022 at 22:08 Normal [facility] 3D MAMM BILAT SCREENon 05-19 3D MAMM BILAT SCREEN [address] [address] Patient: ROSARIO MCNALLY Phone#: : 1945 Age: 76 Gender: F Pt. Type: Out Account: [id number] Location: 052 Ordering: CHICO COLLIER Exam Date: 05/19/2022/13:21 Family Phys: Charge Code: [id number] Physician: Dallam Order #: [id number] Dose#: PROCEDURE: BILATERAL SCREENING BREAST TOMOSYNTHESIS MAMMOGRAM WITH CAD COMPARISON: [facility], BILAT SCREENING, 01/25/2020, 13:03. [facility], 3D BILAT SCREEN, 04/08/2021, 14:42. INDICATIONS: [...] Simon MD on 05/19/2022 at 13:43 Normal [facility] CV CAROTID STUDYon CV CAROTID STUDY [place] [address] Patient: ROSARIO MCNALLY Phone#: : 1945 Age: 76 Gender: F Pt. Type: Out Account: [id number] Location: 052 Ordering: CHICO COLLIER Exam Date: 05/19/2022/12:49 Family Phys: Charge Code: [id number] Physician: Dallam Order #: [id number] Dose#: PROCEDURE: CAROTID FLOW STUDY COMPARISON: None. INDICATIONS: Frequent falls TECHNIQUE: Color duplex Doppler ultrasound and pulsed Doppler analysis were performed to evaluate the cervical carotid arteries and vertebral flow. All measurements for carotid artery narrowing or stenosis were obtained using the ipsilateral distal internal carotid artery as the reference value. CUSTOMER ENGINEER: CAMILLE PT HISTORY: Frequent falls RIGHT IMAGING [...] 76 Gender: F Pt. Type: Out Account: [id number] Location: [facility] Ordering: CHICO COLLIER Exam Date: 05/19/2022/12:49 Family Phys: Charge Code: [id number] Physician: Dallam Order #: [id number] Dose#: Mid ICA: 57.39 cm/s Mid ICA [...] cm/s Subclavian Artery: 82.66 cm/s CONCLUSION: 1. Ifwp-zg-gzravbjt irregular mixed plaque is present. 2. There is no evidence of hemodynamically significant stenosis. Dictated by: Elisabeth Simon MD on 05/19/2022 at 13:31 Approved by: Elisabeth Simon MD on 05/19/2022 at 13:33 Normal [facility] EMERGENCY REPORTon 3 EMERGENCY REPORT [facility] EMERGENCY ROOM REPORT NAME ACCOUNT SEX AGE ADMIT DISCHARGE PT MED. RECORD# NUMBER DATE DATE TYPE DALI [id number] F 76 04/24/22 04/24/22 3 ROSARIO Lopez [id number] ROOM: ER DATE OF : 1945 DICTATING [...] Stew So DO 04/26/22 20:17 JOB #: [id number] Transcribed By: am 04/27/22 08:59 Electronically signed by: MODESTO So DO 05/04/22 08:19 Page 1 of 1 ROSARIO MCNALLY Emergency Room Report Normal [facility] EMERGENCY REPORTon 3 EMERGENCY REPORT [facility] EMERGENCY ROOM REPORT NAME ACCOUNT SEX AGE ADMIT DISCHARGE PT MED. RECORD# NUMBER DATE DATE TYPE DALI, [id number] F 76 04/24/22 04/24/22 3 ROSARIO Lopez [id number] ROOM: ER DATE OF : 1945 DICTATING [...] answering questions appropriately, has normal speech, intact xhuyem-vi-kviv bilaterally. Sensation is intact to bilateral upper [...] Matilde Veronica MD 04/24/22 12:26 JOB #: [id number] Transcribed By: ameena 04/24/22 21:53 Electronically signed by: Dr. Matilde Veronica MD 04/26/22 02:46 Page 2 of 2 DALIROSARIO Emergency Room Report [facility] CHEST 1 VIEWon 04-24-2022 CHEST 1 VIEW [place] [address] Patient: ROSARIO MCNALLY. Phone#: : 1945 Age: 76 Gender: F Pt. Type: ER Account: [id number] Location: [facility] Ordering: DR. MATILDE VERONICA Exam Date: 04/24/2022/11:09 Family Phys: CHICO COLLIER Charge Code: [id number] Physician: Dallam Order #: [id number] Dose#: PROCEDURE: X-RAY CHEST 1 VIEW COMPARISON: [facility], XR, CHEST PA/LAT, 02/20/2016, 12:12. INDICATIONS: Trauma. [...] Simon MD on 04/24/2022 at 13:31 Normal [facility] CT BRAIN W/O CONTRASTon 03- CT BRAIN W/O CONTRAST [place] [address] Patient: ROSARIO MCNALLY Phone#: : 1945 Age: 76 Gender: F Pt. Type: ER Account: [id number] Location: [facility] Ordering: DR. MATILDE VERONICA Exam Date: 04/24/2022/10:47 Family Phys: CHICO COLLIER Charge Code: [id number] Physician: Dallam Order #: [id number] Dose#: PROCEDURE: CT BRAIN WITHOUT CONTRAST COMPARISON: [...] Simon MD on 04/24/2022 at 13:12 Normal [facility] CT CERVICAL W/O CONTRASTon 0 04-24-2022 CT CERVICAL W/O CONTRAST [place] [id number] Patient: ROSARIO MCNALLY Phone#: : 1945 Age: 76 Gender: F Pt. Type: ER Account: [id number] Location: 05 Ordering: DR. MATILDE VERONICA Exam Date: 04/24/2022/10:47 Family Phys: CHICO COLLIER Charge Code: [id number] Physician: Dallam Order #: [id number] Dose#: PROCEDURE: CT CERVICAL WITHOUT CONTRAST COMPARISON: [...] no evidence of acute fracture or subluxation. [place] [address] Patient: ROSARIO MCNALLY Phone#: : 1945 Age: 76 Gender: F Pt. Type: ER Account: [id number] Location: 052 Ordering: DR. MATILDE VERONICA Exam Date: 04/24/2022/10:47 Family Phys: CHICO COLLIER Charge Code: [id number] Physician: Dallam Order #: [id number] Dose#: Dictated by: Elisabeth Simon MD on 04/24/2022 at 13:18 Approved by: Elisabeth Simon MD on 04/24/2022 at 13:23 Normal [facility] CT FACIAL BONES W/O CONTRAST on 04-24-2022 CT FACIAL BONES W/O CONTRAST [place] [address] Patient: ROSARIO MCNALLY Phone#: : 1945 Age: 76 Gender: F Pt. Type: ER Account: [id number] Location: 052 Ordering: DR. MATILDE VERONICA Exam Date: 04/24/2022/10:47 Family Phys: CHICO COLLIER Charge Code: [id number] Physician: Dallam Order #: [id number] Dose#: PROCEDURE: CT FACIAL BONES WITHOUT CONTRAST [...] 76 Gender: F Pt. Type: ER Account: [id number] Location: 052 Ordering: DR. MATILDE VERONICA Exam Date: 04/24/2022/10:47 Family Phys: CHICO COLLIER Charge Code: [id number] Physician: Dallam Order #: [id number] Dose#: Approved by: Elisabeth Simon MD on 04/24/2022 at 13:18 Normal [facility] PELVIS 1 or 2 VIEWSon 2022 PELVIS 1 or 2 VIEWS [place] [address] Patient: ROSARIO MCNALLY Phone#: : 1945 Age: 76 Gender: F Pt. Type: ER Account: [id number] Location: 052 Ordering: DR. MATILDE VERONICA Exam Date: 04/24/2022/11:10 Family Phys: CHICO COLLIER Charge Code: [id number] Physician: Dallam Order #: [id number] Dose#: PROCEDURE: X-RAY PELVIS AP COMPARISON: [facility], XR, PELVIS AP, 09/15/2011, 6:52. INDICATIONS: Trauma. [...] Simon MD on 04/24/2022 at 13:32 Normal [facility] No Panel Informationon 12-28 140 mg/dL Normal [facility] 53 mg/dL Normal [facility] [employer] 82 mg/dL Normal [facility] [employer] 71 Normal [facility] [employer] 2.6 Normal [facility] [employer] 87 Normal [facility] 85 mg/dL Normal 65 - 99 mg/dL [facility] [employer] [employer] 18 mg/dL Normal 7 - 25 mg/dL [facility] [employer] [employer] 0.71 mg/dL Normal 0.60 - 1.00 mg/dL [facility] [employer] 89 Normal [facility] [employer] NOT APPLICABLE Normal 6 - 22 [facility] [employer] [employer] 141 mmol/L Normal 135 - 146 mmol/L [facility] [employer] [employer] 4.4 mmol/L Normal 3.5 - 5.3 mmol/L [facility] [employer] [employer] 104 mmol/L Normal 98 - 110 mmol/L [facility] 32 mmol/L Normal 20 - 32 mmol/L [facility] 9.5 mg/dL Normal 8.6 - 10.4 mg/dL [facility] 6.8 g/dL Normal 6.1 - 8.1 g/dL [facility] 4.0 g/dL Normal 3.6 - 5.1 g/dL [facility] 2.8 Normal 1.9 - 3.7 [facility] 1.4 Normal 1.0 - 2.5 [facility] [facility] 0.6 mg/dL Normal 0.2 - 1.2 mg/dL [facility] 167 U/L Abnormal 37 - 153 U/L [facility], [facility].; [facility], [facility] 14 U/L Normal 10 - 35 U/L [facility], [facility].; [facility], [facility] 4 U/L Abnormal 6 - 29 U/L [facility], [facility].; [facility] 7.5 Normal 3.8 - 10.8 [facility] 3.51 {Million/uL} Abnormal 3.80 - 5.1 0 {Million/uL} [facility], [facility].; [facility] [place], Inc. 10.4 g/dL Abnormal 11.7 - 15.5 g/dL [facility], [facility].; [facility] [place], Inc. 32.5 % Abnormal 35.0 - 45.0 % [facility] 92.6 fL Normal 80.0 - 100.0 fL [facility], [facility].; [facility] 29.6 pg Normal 27.0 - 33.0 pg [facility], [facility].; [facility] 32.0 g/dL Normal 32.0 - 36.0 g/dL [facility], [employer].; [facility], [employer] 13.1 % Normal 11.0 - 15.0 % [facility].; [facility], [employer] 254 Normal 140 - 400 [facility], Inc.; [facility], [employer] 10.9 fL Normal 7.5 - 12.5 fL [employer], [facility].; [facility], [employer] 5475 {cells/uL} Normal 1500 - 7800 {cells/uL} [facility], [facility].; [facility], [employer] 1193 {cells/uL} Normal 850 - 3900 {cells/uL} [facility], [facility].; [facility], [employer] 690 {cells/uL} Normal 200 - 950 {cells/uL} [facility], [employer].; [facility], [employer] 90 {cells/uL} Normal 15 - 500 {cells/uL} [facility], [facility].; [facility], [employer] 53 {cells/uL} Normal 0 - 200 {cells/uL} [facility], [facility].; [facility], [employer] 73 % Normal [facility], Inc.; [facility], [employer] 15.9 % Normal [facility], [facility].; [facility], [employer] 9.2 % Normal [facility], [facility].; [facility], [employer] 1.2 % Normal [facility], Inc.; [facility], [employer] 0.7 % Normal [facility], Inc.; [facility], [place]. No Panel Informationon 01-05 146 mg/dL Normal [facility], Inc.; [employer], [employer] 56 mg/dL Normal [facility], Inc.; [facility], [employer] 67 mg/dL Normal [facility], Inc.; [facility], [employer] 76 Normal [facility], Inc.; [facility], [employer] 2.6 Normal [facility], Inc.; [facility] [employer] 90 Normal [facility], Inc.; [facility], [employer] 92 mg/dL Normal 65 - 99 mg/dL [facility], Inc.; [facility], [employer] 15 mg/dL Normal 7 - 25 mg/dL [facility], Inc.; [facility] 0.72 mg/dL Normal 0.60 - 0.93 mg/dL [facility] [place], [facility]. 82 Normal [facility], [facility].; [facility] [place], Inc. 96 Normal [facility], [facility].; [facility] [place], Inc. NOT APPLICABLE Normal 6 - 22 [facility], Inc.; [facility] [employer] [place], Inc. 138 mmol/L Normal 135 - 146 mmol/L [facility], [facility].; [facility] [place], Inc. 4.3 mmol/L Normal 3.5 - 5.3 mmol/L [facility], [facility].; [facility] [place], Inc. 102 mmol/L Normal 98 - 110 mmol/L [facility], [facility].; [facility] [employer], [employer]. 29 mmol/L Normal 20 - 32 mmol/L [facility], [facility].; [facility] [place], Inc. 9.5 mg/dL Normal 8.6 - 10.4 mg/dL [facility], [facility].; [facility] [place], Inc. 7.2 g/dL Normal 6.1 - 8.1 g/dL [facility], [facility].; [facility] [place], Inc. 3.8 g/dL Normal 3.6 - 5.1 g/dL [facility], [facility].; [facility] [place], Inc. 3.4 Normal 1.9 - 3.7 [facility], [facility].; [facility] [place], Inc. 1.1 Normal 1.0 - 2.5 [facility] [place], Inc.; [facility] [place], Inc. 0.6 mg/dL Normal 0.2 - 1.2 mg/dL [facility] [place], Inc.; [facility] [employer], Inc. 80 U/L Normal 37 - 153 U/L [facility], Inc.; [facility], [facility] 15 U/L Normal 10 - 35 U/L [facility] [place], Inc.; [facility] [employer], Inc. 7 U/L Normal 6 - 29 U/L [facility] [place], Inc.; [facility], Inc. 8.8 Normal 3.8 - 10.8 [facility], Inc.; [facility], Inc. 3.91 {Million/uL} Normal 3.80 - 5.1 0 {Million/uL} [facility], Inc.; [employer], [employer] 11.3 g/dL Abnormal 11.7 - 15.5 g/dL [facility], [facility].; [facility] [facility], [employer] 34.9 % Abnormal 35.0 - 45.0 % [facility], [employer].; [employer], [employer] 89.3 fL Normal 80.0 - 100.0 fL [facility], Inc.; [facility] [facility], [employer] 28.9 pg Normal 27.0 - 33.0 pg [facility], [facility].; [facility] [facility], [employer] 32.4 g/dL Normal 32.0 - 36.0 g/dL [employer], Inc.; [facility], Inc[facility] 13.0 % Normal 11.0 - 15.0 % [employer], [employer].; [employer], [employer] 314 Normal 140 - 400 [employer], Inc.; [facility], [employer]. 10.5 fL Normal 7.5 - 12.5 fL [employer], Inc.; [employer], Inc. 6160 {cells/uL} Normal 1500 - 7800 {cells/uL} [facility], Inc.; [employer], [employer] 1857 {cells/uL} Normal 850 - 3900 {cells/uL} [facility], Inc.; [employer], [employer] 686 {cells/uL} Normal 200 - 950 {cells/uL} [facility], Inc.; [facility], [employer] 53 {cells/uL} Normal 15 - 500 {cells/uL} [facility], Inc.; [employer], [employer] 44 {cells/uL} Normal 0 - 200 {cells/uL} [employer], [employer].; [facility], [employer] 70 % Normal [facility], Inc.; [employer], [employer] 21.1 % Normal [facility], Inc.; [employer], [employer] 7.8 % Normal [facility], Inc.; [facility], Inc[facility] 0.6 % Normal [facility], Inc.; [facility], [facility] 0.5 % Normal [facility], [facility].; [employer], Inc. 2.63 {mIU/L} Normal 0.40 - 4.50 {mIU/L} [facility] [employer], Inc.; [employer], Inc. No Panel Informationon 07-28 SEE NOTE Normal [facility], Inc.; [facility], [employer] BIOPSY Normal [facility], Inc.; [employer], Inc. No Panel Informationon 12-23 168 mg/dL Normal [facility], Inc.; [employer], [employer] 59 mg/dL Normal [facility], Inc.; [employer], [employer]. 89 mg/dL Normal [facility], Inc.; [employer], [employer] 91 Normal [employer], Inc.; [facility], Inc. 2.8 Normal 1.9 - 3.7 [facility], Inc.; [facility], [employer] 109 Normal [facility], Inc.; [facility], Inc. 92 mg/dL Normal 65 - 99 mg/dL [employer], Inc.; [facility], [employer]. 20 mg/dL Normal 7 - 25 mg/dL [facility] [employer], Inc.; [employer], Inc. 0.82 mg/dL Normal 0.60 - 0.93 mg/dL [facility], Inc.; [employer], [employer] 71 Normal [facility], Inc.; [employer], [employer] 82 Normal [facility], Inc.; [employer], Inc. NOT APPLICABLE Normal 6 - 22 [facility], Inc.; [employer], [employer]. 140 mmol/L Normal 135 - 146 mmol/L [facility] [employer], Inc.; [employer], Inc. 4.2 mmol/L Normal 3.5 - 5.3 mmol/L [facility] [employer], Inc.; [facility], Inc. 102 mmol/L Normal 98 - 110 mmol/L [facility], Inc.; [facility], Inc. 31 mmol/L Normal 20 - 32 mmol/L [facility], Inc.; [employer], Inc. 10.0 mg/dL Normal 8.6 - 10.4 mg/dL [facility], [facility].; [facility], [facility] 7.2 g/dL Normal 6.1 - 8.1 g/dL [facility], [facility].; [facility], [facility] 4.4 g/dL Normal 3.6 - 5.1 g/dL [facility], [facility].; [facility], [facility] 1.6 Normal 1.0 - 2.5 [facility], [facility].; [facility], [facility] 0.8 mg/dL Normal 0.2 - 1.2 mg/dL [facility], [facility].; [facility], [facility] 80 U/L Normal 37 - 153 U/L [facility], Inc.; [facility], [facility] 17 U/L Normal 10 - 35 U/L [facility], [facility].; [facility], [facility] 6 U/L Normal 6 - 29 U/L [facility], [facility].; [facility], [facility] 9.5 Normal 3.8 - 10.8 [facility], [facility].; [facility], [employer] 4.08 {Million/uL} Normal 3.80 - 5.1 0 {Million/uL} [facility] [place], Inc.; [facility], [employer] 12.4 g/dL Normal 11.7 - 15.5 g/dL [facility], [facility].; [facility], [facility] 37.1 % Normal 35.0 - 45.0 % [facility], [facility].; [facility], [employer] 90.9 fL Normal 80.0 - 100.0 fL [facility] [place], Inc.; [facility], [employer] 30.4 pg Normal 27.0 - 33.0 pg [facility], [facility].; [facility], [employer] 33.4 g/dL Normal 32.0 - 36.0 g/dL [facility] [place], Inc.; [facility], [employer] 12.7 % Normal 11.0 - 15.0 % [facility], [facility].; [facility], [facility] 288 Normal 140 - 400 [facility], Inc.; [facility], [employer] 10.7 fL Normal 7.5 - 12.5 fL [facility], Inc.; [employer] 6698 {cells/uL} Normal 1500 - 7800 {cells/uL} [employer] [facility], Inc. 1900 {cells/uL} Normal 850 - 3900 {cells/uL} [employer], Inc[employer] 684 {cells/uL} Normal 200 - 950 {cells/uL} [employer], Inc[employer] 152 {cells/uL} Normal 15 - 500 {cells/uL} [employer] 67 {cells/uL} Normal 0 - 200 {cells/uL} [employer].; [employer] 70.5 % Normal [employer].; [employer] 20.0 % Normal [employer].; [employer], [place]. 7.2 % Normal [employer].; [employer] 1.6 % Normal [employer].; [employer] 0.7 % Normal [employer].; [employer]. Laboratory - Chemistry and C hemistry - challengeon 12-22-2018 Albumin [Mass/Vol] 4.4 g/dL Normal 3.6 - 5.1 g/dL [employer].; [facility], Inc[employer] Albumin/Globulin [Mass ratio] 1.6 {ratio} Normal 1.0 - 2.5 [employer].; [employer]. ALP [Catalytic activity/Vol] 79 U/L Normal 33 - 130 U/L [employer].; [facility], [place]. ALT [Catalytic activity/Vol] 4 U/L Abnormal 6 - 29 U/L [employer].; [facility], [place]. AST [Catalytic activity/Vol] 15 U/L Normal 10 - 35 U/L [employer].; [facility], [place]. Bilirubin [Mass/Vol] 0.8 mg/dL Normal 0.2 - 1 .2 mg/dL [employer].; [employer]. Calcium [Mass/Vol] 9.8 mg/dL Normal 8.6 - 10. 4 mg/dL [facility], [facility].; [facility], [facility] Chloride [Moles/Vol] 103 mmol/L Normal 98 - 11 0 mmol/L [facility], [facility]. Cholesterol [Mass/Vol] 160 mg/dL Normal [facility], [facility] Cholesterol in HDL [Mass/Vol] 62 mg/dL Normal [facility].; [facility], [facility]. Cholesterol in LDL [Mass/Vol] 82 mg/dL Normal 0 - 100 mg/dL [facility], [facility].; [facility], [facility] Cholesterol non HDL [Mass/Vol] 98 mg/dL Normal [facility], [facility].; [facility], [facility] Cholesterol.total/Antonietta sterol in HDL [Mass ratio] 2.6 {ratio} Normal [facility].; [facility], [facility] CO2 [Moles/Vol] 32 mmol/L Normal 20 - 32 mmol/L [facility], [facility].; [facility], [facility]. Creatinine [Mass/Vol] 0.74 mg/dL Normal 0.60 - 0.93 mg/dL [facility], [facility].; [facility], [facility]. GFR/1.73 sq M.predicted among blacks MDRD (S/P/Bld) [Vol rate/Area] 94 {ML/MIN/1.73M2} Normal [facility], [facility].; [facility], [facility]. GFR/1.73 sq M.predicted MDRD (S/P/Bld) [Vol rate/Area] 81 {ML/MIN/1.73M2} Normal [facility], [facility].; [facility], [facility]. Globulin (S) [Mass/Vol] 2.8 g/dL Normal 1.9 - 3.7 g/dL [facility], [facility].; [facility], [facility]. Glucose [Mass/Vol] 94 mg/dL Normal 65 - 99 mg/dL [facility], [facility].; [facility] [place], [facility]. Potassium [Moles/Vol] 4.0 mmol/L Normal 3.5 - 5.3 mmol/L [facility], [facility].; [facility], Inc[facility] Protein [Mass/Vol] 7.2 g/dL Normal 6.1 - 8.1 g/dL [facility], [place].; [employer], [place]. Sodium [Moles/Vol] 141 mmol/L Normal 135 - 146 mmol/L [facility] [place], [facility].; [employer], [place]. Triglyceride [Mass/Vol] 77 mg/dL Normal [facility].; [facility] [place], [place]. Urea nitrogen [Mass/Vol] 15 mg/dL Normal 7 - 25 mg/dL [facility] [employer] [employer], [place]. Urea nitrogen/Creatinine [Mass ratio] 19.7 mg/mg Normal 6 - 22 [facility] [employer].; [employer], [place]. Laboratory - Hematology and Cell countson 12-22-2018 Basophils (Bld) [#/Vol] 60 {Cells}/uL Normal 0 - 200 {Cells}/uL [facility] [employer].; [employer], [place]. Basophils/100 WBC (Bld) 0.7 % Normal 0 - 1 % [facility] [employer], [place]. Eosinophils (Bld) [#/Vol] 140 {Cells}/uL Normal 15 - 500 {Cells}/uL [facility].; [employer], [place]. Eosinophils/100 WBC (Bld) 1.7 % Normal 0 - 4 % [facility] [employer].; [employer], [place]. Erythrocyte distribution width (RBC) [Ratio] 12.9 % Normal 11.0 - 15.0 % [employer].; [employer], [place]. Hematocrit (Bld) [Volume fraction] 37.8 % Normal 35.0 - 45.0 % [employer], [place].; [employer], [place]. Hemoglobin (Bld) [Mass/Vol] 12.3 g/dL Normal 11.7 - 15.5 g/dL [facility], [place].; [employer], [employer]. Lymphocytes (Bld) [#/Vol] 2040 {Cells}/uL Normal 850 - 3900 {Cells}/uL [facility], [place].; [employer], [place]. Lymphocytes/100 WBC (Bld) 25.0 % Normal 12 - 47 % [facility].; [facility]. MCH (RBC) [Entitic mass] 30.1 pg Normal 27.0 - 33.0 PG [facility] [employer].; [facility] [place], [place]. MCHC (RBC) [Mass/Vol] 32.5 g/dL Normal 32.0 - 36.0 g/dL [facility], [place].; [employer], [place]. MCV (RBC) [Entitic vol] 92.6 fL Normal 80.0 - 100.0 fL [facility] [employer].; [facility] [place], [place]. Monocytes (Bld) [#/Vol] 630 {Cells}/uL Normal 20 0 - 950 {Cells}/uL [facility] [employer].; [facility] [place], [place]. Monocytes/100 WBC (Bld) 7.7 % Normal 4 - 12 % [facility].; [employer], [place]. Neutrophils (Bld) [#/Vol] 5260 {Cells}/uL Normal 1500 - 7800 {Cells}/uL [facility].; [employer], [place]. Neutrophils/100 WBC (Bld) 64.9 % Normal 40 - 75 % [facility] [employer].; [employer], [place]. Platelet mean volume (Bld) [Entitic vol] 10.7 fL Normal 7.5 - 12.5 fL [facility] [employer].; [employer], [employer] Platelets (Bld) [#/Vol] 264 10*3/uL Normal 140 - 400 10*3/uL [facility] [employer].; [employer], [place]. RBC (Bld) [#/Vol] 4.08 10*6/uL Normal 3.80 - 5.1 0 10*6/uL [facility] [employer].; [employer], [place]. WBC (Bld) [#/Vol] 8.2 10*3/uL Normal 3.8 - 10.8 10*3/uL [facility] [place], [place].; [employer], [place]. Laboratory - Chemistry and C hemistry - challengeon 12-14-2017 Calcium [Mass/Vol] 10.0 mg/dL Normal 8.6 - 10. 4 mg/dL [facility] [employer].; [facility], Inc[facility] Chloride [Moles/Vol] 104 mmol/L Normal 98 - 11 0 mmol/L [facility], [facility].; [facility], Inc. Cholesterol [Mass/Vol] 151 mg/dL Normal [facility], [facility].; [facility], Inc Cholesterol in HDL [Mass/Vol] 62 mg/dL Normal [facility], [facility].; [facility], [facility]. Cholesterol in LDL [Mass/Vol] 75 mg/dL Normal 0 - 100 mg/dL [facility], [facility].; [facility] [employer] [place], Inc. Cholesterol non HDL [Mass/Vol] 89 mg/dL Normal [facility], [facility].; [facility], [facility]. Cholesterol.total/Antonietta sterol in HDL [Mass ratio] 2.4 {ratio} Normal [facility], [facility].; [facility] [employer], Inc[facility] CO2 [Moles/Vol] 30 mmol/L Normal 20 - 32 mmol/L [facility], [facility].; [facility], [facility]. Creatinine [Mass/Vol] 0.75 mg/dL Normal 0.60 - 0.93 mg/dL [facility], [facility].; [facility] [place], [facility]. GFR/1.73 sq M.predicted among blacks MDRD (S/P/Bld) [Vol rate/Area] 93 {ML/MIN/1.73M2} Normal [facility], [facility].; [facility] [place], [facility]. GFR/1.73 sq M.predicted MDRD (S/P/Bld) [Vol rate/Area] 80 {ML/MIN/1.73M2} Normal [facility], [facility].; [facility] [employer], Inc. Glucose [Mass/Vol] 92 mg/dL Normal 65 - 99 mg/dL [facility], [facility].; [facility], Inc. Potassium [Moles/Vol] 4.3 mmol/L Normal 3.5 - 5.3 mmol/L [facility], [facility].; [facility], Inc. Sodium [Moles/Vol] 141 mmol/L Normal 135 - 146 mmol/L [facility], [facility].; [facility], Inc. Triglyceride [Mass/Vol] 62 mg/dL Normal [facility], [facility].; [facility] [place], [facility]. TSH Qn 2.12 m[IU]/L Normal 0.40 - 4.50 {mIU/L} [facility].; [facility] Urea nitrogen [Mass/Vol] 16 mg/dL Normal 7 - 25 mg/dL [facility].; [facility], [facility] Urea nitrogen/Creatinine [Mass ratio] 21.9 mg/mg Normal 6 - 22 [facility]; [facility] Laboratory - Hematology and Cell countson 12-14-2017 Basophils (Bld) [#/Vol] 40 {Cells}/uL Normal 0 - 200 {Cells}/uL [facility].; [facility] Basophils/100 WBC (Bld) 1 % Normal 0 - 1 % [facility]; [facility] Eosinophils (Bld) [#/Vol] 210 {Cells}/uL Normal 15 - 500 {Cells}/uL [facility].; [facility] Eosinophils/100 WBC (Bld) 3 % Normal 0 - 4 % [facility].; [facility] [employer] [facility] Erythrocyte distribution width (RBC) [Ratio] 14.3 % Normal 11.0 - 15.0 % [facility].; [facility] Hematocrit (Bld) [Volume fraction] 36.0 % Normal 35.0 - 45.0 % [facility].; [facility], [facility] Hemoglobin (Bld) [Mass/Vol] 11.9 g/dL Normal 11.7 - 15.5 g/dL [facility].; [facility] Lymphocytes (Bld) [#/Vol] 1890 {Cells}/uL Normal 850 - 3900 {Cells}/uL [facility].; [facility] [employer] [facility] Lymphocytes/100 WBC (Bld) 27 % Normal 12 - 47 % [facility].; [facility] [place], [facility]. MCH (RBC) [Entitic mass] 30.2 pg Normal 27.0 - 33.0 PG [facility].; [facility] [employer]. MCHC (RBC) [Mass/Vol] 32.9 g/dL Normal 32.0 - 36.0 g/dL [facility], [facility].; [facility], [facility]. MCV (RBC) [Entitic vol] 91.6 fL Normal 80.0 - 100.0 fL [facility].; [facility], [facility]. Monocytes (Bld) [#/Vol] 610 {Cells}/uL Normal 20 0 - 950 {Cells}/uL [facility], [facility].; [facility], [facility]. Monocytes/100 WBC (Bld) 9 % Normal 4 - 12 % [facility].; [facility], [facility]. Neutrophils (Bld) [#/Vol] 4250 {Cells}/uL Normal 1500 - 7800 {Cells}/uL [facility].; [facility], [facility]. Neutrophils/100 WBC (Bld) 61 % Normal 40 - 75 % [facility], [facility].; [facility], [facility] Platelet mean volume (Bld) [Entitic vol] 8.9 fL Normal 7.5 - 12.5 fL [facility].; [facility], [facility]. Platelets (Bld) [#/Vol] 241 10*3/uL Normal 140 - 400 10*3/uL [facility].; [facility], [facility]. RBC (Bld) [#/Vol] 3.93 10*6/uL Normal 3.80 - 5.1 0 10*6/uL [facility].; [facility], [place]. WBC (Bld) [#/Vol] 7.0 10*3/uL Normal 3.8 - 10.8 10*3/uL [facility], [facility].; [facility], [place]. Laboratory - Cytologyon 08-08 Microscopic observation Cyto stain Nom (Cvx) Normal [facility].; [facility] [place], [facility] Laboratory - Chemistry and C hemistry - challengeon 12-22-2016 Hemoglobin.gastrointest inal Ql (Stl) Negative Normal [facility].; [facility] [place], [place]. Laboratory - Chemistry and C hemistry - challengeon 12-13-2016 Calcium [Mass/Vol] 9.7 mg/dL Normal 8.6 - 10. 4 mg/dL [facility].; [facility], [facility]. Chloride [Moles/Vol] 103 mmol/L Normal 98 - 11 0 mmol/L [facility], [facility].; [facility], [facility]. Cholesterol [Mass/Vol] 172 mg/dL Normal [facility].; [facility], [facility] Cholesterol in HDL [Mass/Vol] 58 mg/dL Normal [facility], [facility].; [facility], [facility]. Cholesterol in LDL [Mass/Vol] 95 mg/dL Normal 0 - 100 mg/dL [facility], [facility].; [facility], [facility]. Cholesterol non HDL [Mass/Vol] 113 mg/dL Normal [facility], [facility].; [facility], [facility]. Cholesterol.total/[place] sterol in HDL [Mass ratio] 3.0 {ratio} Normal [facility], [facility].; [facility], [facility] CO2 [Moles/Vol] 33 mmol/L Abnormal 20 - 31 mmol/L [facility], [facility].; [facility], [facility]. Creatinine [Mass/Vol] 0.75 mg/dL Normal 0.60 - 0.93 mg/dL [facility], [facility].; [facility], [facility]. GFR/1.73 sq M.predicted among blacks MDRD (S/P/Bld) [Vol rate/Area] 94 {ML/MIN/1.73M2} Normal [facility], [facility].; [facility], [facility]. GFR/1.73 sq M.predicted MDRD (S/P/Bld) [Vol rate/Area] 81 {ML/MIN/1.73M2} Normal [facility], [facility].; [facility] [facility] [place] [employer] Glucose [Mass/Vol] 95 mg/dL Normal 65 - 99 mg/dL [facility].; [facility]. Potassium [Moles/Vol] 4.3 mmol/L Normal 3.5 - 5.3 mmol/L [facility], [facility].; [employer] [facility] [place] [employer] Sodium [Moles/Vol] 142 mmol/L Normal 135 - 146 mmol/L [facility], [facility].; [facility] Triglyceride [Mass/Vol] 93 mg/dL Normal [facility].; [facility] TSH Qn 3.16 m[IU]/L Normal 0.40 - 4.50 {mIU/L} [facility].; [facility] [employer] [facility] [place] [employer] [facility] Urea nitrogen [Mass/Vol] 12 mg/dL Normal 7 - 25 mg/dL [facility].; [facility] Urea nitrogen/Creatinine [Mass ratio] 16.1 mg/mg Normal 6 - 22 [facility].; [facility] [employer] Laboratory - Hematology and Cell countson 12-13-2016 Basophils (Bld) [#/Vol] 10 {Cells}/uL Normal 0 - 200 {Cells}/uL [facility].; [facility] [employer] Basophils/100 WBC (Bld) 0 % Normal 0 - 1 % H [facility].; [employer] Eosinophils (Bld) [#/Vol] 210 {Cells}/uL Normal 15 - 500 {Cells}/uL [facility].; [employer] Eosinophils/100 WBC (Bld) 3 % Normal 0 - 4 % [facility] [employer] [facility].; [facility] Erythrocyte distribution width (RBC) [Ratio] 13.4 % Normal 11.0 - 15.0 % [facility] [employer] [facility] [employer] [facility].; [employer] Hematocrit (Bld) [Volume fraction] 38.0 % Normal 35.0 - 45.0 % [facility] [employer].; [facility] Hemoglobin (Bld) [Mass/Vol] 12.2 g/dL Normal 11.7 - 15.5 g/dL [facility] [employer] [facility].; [facility] [employer] [facility]. Lymphocytes (Bld) [#/Vol] 1830 {Cells}/uL Normal 850 - 3900 {Cells}/uL [facility] [employer].; [employer]. Lymphocytes/100 WBC (Bld) 27 % Normal 12 - 47 % [employer].; [employer]. MCH (RBC) [Entitic mass] 29.5 pg Normal 27.0 - 33.0 PG [employer].; [facility]. MCHC (RBC) [Mass/Vol] 32.3 g/dL Normal 32.0 - 36.0 g/dL [facility].; [facility] [place], [place]. MCV (RBC) [Entitic vol] 91.3 fL Normal 80.0 - 100.0 fL [facility].; [employer] [place], [place]. Monocytes (Bld) [#/Vol] 310 {Cells}/uL Normal 20 0 - 950 {Cells}/uL [facility].; [employer] [place], [place]. Monocytes/100 WBC (Bld) 5 % Normal 4 - 12 % H [facility].; [facility], [facility]. Neutrophils (Bld) [#/Vol] 4310 {Cells}/uL Normal 1500 - 7800 {Cells}/uL [facility].; [facility] [place], [place]. Neutrophils/100 WBC (Bld) 65 % Normal 40 - 75 % [facility] [employer] [facility] [place], [place]. Platelet mean volume (Bld) [Entitic vol] 8.8 fL Normal 7.5 - 12.5 fL [facility] [employer] [facility].; [facility]. Platelets (Bld) [#/Vol] 246 10*3/uL Normal 140 - 400 10*3/uL [facility] [employer] [facility] [place], [place]. RBC (Bld) [#/Vol] 4.16 10*6/uL Normal 3.80 - 5.1 0 10*6/uL [facility].; [place], [place]. WBC (Bld) [#/Vol] 6.7 10*3/uL Normal 3.8 - 10.8 10*3/uL [employer].; [employer], [place]. Laboratory - Chemistry and C hemistry - challengeon 12-22-2015 Hemoglobin.gastrointest inal Ql (Stl) Negative Normal [employer].; [facility] [place], [place]. Laboratory - Chemistry and C hemistry - challengeon 12-03-2015 Calcium [Mass/Vol] 9.9 mg/dL Normal 8.6 - 10. 4 mg/dL [facility].; [facility] [place], [place]. Chloride [Moles/Vol] 104 mmol/L Normal 98 - 11 0 mmol/L [facility], [facility].; [employer] [facility] [place], [facility]. Cholesterol [Mass/Vol] 156 mg/dL Normal 125 - 200 mg/dL [facility].; [facility]. Cholesterol in HDL [Mass/Vol] 50 mg/dL Normal [facility], [facility].; [facility], [facility]. Cholesterol in LDL [Mass/Vol] 88 mg/dL Normal [facility], [facility].; [employer] [facility] [place], [facility]. Cholesterol non HDL [Mass/Vol] 106 mg/dL Normal [facility].; [employer] [facility] [place], [facility]. Cholesterol.total/Antonietta sterol in HDL [Mass ratio] 3.1 {ratio} Normal [facility], [facility].; [employer] [facility] [place], [facility]. CO2 [Moles/Vol] 30 mmol/L Normal 20 - 31 mmol/L [facility], [facility].; [employer] [facility] [place], [facility]. Creatinine [Mass/Vol] 0.77 mg/dL Normal 0.50 - 0.99 mg/dL [facility], [facility].; [facility], [facility]. GFR/1.73 sq M.predicted among blacks MDRD (S/P/Bld) [Vol rate/Area] 92 {ML/MIN/1.73M2} Normal [facility], [facility].; [facility], [facility]. GFR/1.73 sq M.predicted MDRD (S/P/Bld) [Vol rate/Area] 79 {ML/MIN/1.73M2} Normal [facility], [facility].; [employer] [facility] [place], [facility]. Glucose [Mass/Vol] 95 mg/dL Normal 65 - 99 mg/dL [facility], [facility].; [employer] [facility] [place], [facility]. Potassium [Moles/Vol] 3.9 mmol/L Normal 3.5 - 5.3 mmol/L [facility], [facility].; [employer] [place] Sodium [Moles/Vol] 141 mmol/L Normal 135 - 146 mmol/L [facility], [facility].; [employer] [place], [employer] Triglyceride [Mass/Vol] 92 mg/dL Normal [facility].; [employer] [facility] [place], [facility]. Urea nitrogen [Mass/Vol] 12 mg/dL Normal 7 - 25 mg/dL [facility].; [employer] [place], [place]. Urea nitrogen/Creatinine [Mass ratio] 16.1 mg/mg Normal 6 - 22 [facility] [employer].; [employer]. Laboratory - Hematology and Cell countson 12-03-2015 Basophils (Bld) [#/Vol] 40 {Cells}/uL Normal 0 - 200 {Cells}/uL [facility] [employer] [facility].; [employer] [place], [place] Basophils/100 WBC (Bld) 1 % Normal 0 - 1 % H [facility].; [employer], [facility]. Eosinophils (Bld) [#/Vol] 240 {Cells}/uL Normal 15 - 500 {Cells}/uL [facility] [employer] [facility].; [employer] [place], [place]. Eosinophils/100 WBC (Bld) 4 % Normal 0 - 4 % [facility] [employer] [facility].; [place], [place] Erythrocyte distribution width (RBC) [Ratio] 14.0 % Normal 11.0 - 15.0 % [employer].; [place], [place]. Hematocrit (Bld) [Volume fraction] 36.0 % Normal 35.0 - 45.0 % [employer].; [employer], [place]. Hemoglobin (Bld) [Mass/Vol] 11.9 g/dL Normal 11.7 - 15.5 g/dL [facility] [employer] [facility] [place] [facility].; [place], [place]. Lymphocytes (Bld) [#/Vol] 2020 {Cells}/uL Normal 850 - 3900 {Cells}/uL [facility] [employer] [facility].; [employer] [place], [place]. Lymphocytes/100 WBC (Bld) 36 % Normal 12 - 47 % [employer].; [employer], [facility]. MCH (RBC) [Entitic mass] 29.2 pg Normal 27.0 - 33.0 PG [employer].; [employer], [place]. MCHC (RBC) [Mass/Vol] 33.1 g/dL Normal 32.0 - 36.0 g/dL [facility] [place], [place].; [employer], [place]. MCV (RBC) [Entitic vol] 88.2 fL Normal 80.0 - 100.0 fL [facility] [employer] [facility].; [facility]. Monocytes (Bld) [#/Vol] 360 {Cells}/uL Normal 20 0 - 950 {Cells}/uL [facility].; [facility] [employer] Monocytes/100 WBC (Bld) 6 % Normal 4 - 12 % H [facility].; [facility], [facility]. Neutrophils (Bld) [#/Vol] 3010 {Cells}/uL Normal 1500 - 7800 {Cells}/uL [facility].; [employer]. Neutrophils/100 WBC (Bld) 53 % Normal 40 - 75 % [facility].; [employer] [place], [place]. Platelet mean volume (Bld) [Entitic vol] 9.2 fL Normal 7.5 - 11.5 fL [facility].; [employer] [place], [place]. Platelets (Bld) [#/Vol] 239 10*3/uL Normal 140 - 400 10*3/uL [facility].; [employer]. RBC (Bld) [#/Vol] 4.09 10*6/uL Normal 3.80 - 5.1 0 10*6/uL [facility] [employer].; [place], [place]. WBC (Bld) [#/Vol] 5.7 10*3/uL Normal 3.8 - 10.8 10*3/uL [facility].; [employer], [facility]. Laboratory - Chemistry and C hemistry - challengeon 11-28-2014 Hemoglobin.gastrointest inal Ql (Stl) Negative Normal [facility].; [facility] [employer] [facility]. Laboratory - Chemistry and C hemistry - challengeon 11-21-2014 Albumin [Mass/Vol] 4.4 g/dL Normal 3.6 - 5.1 g/dL [facility].; [place] [place], [facility]. Albumin/Globulin [Mass ratio] 1.3 {ratio} Normal 1.0 - 2.5 [facility].; [employer] [place], [place]. ALP [Catalytic activity/Vol] 77 U/L Normal 33 - 130 U/L [facility].; [employer] [place], [place]. ALT [Catalytic activity/Vol] 10 U/L Normal 6 - 29 U/L [facility].; [facility]. AST [Catalytic activity/Vol] 16 U/L Normal 10 - 35 U/L [facility].; [facility], [facility]. Bilirubin [Mass/Vol] 0.9 mg/dL Normal 0.2 - 1 .2 mg/dL [facility].; [facility], [facility]. Calcium [Mass/Vol] 10.4 mg/dL Normal 8.6 - 10. 4 mg/dL [facility].; [facility], [facility]. Chloride [Moles/Vol] 103 mmol/L Normal 98 - 11 0 mmol/L [facility].; [facility], [facility]. Cholesterol [Mass/Vol] 173 mg/dL Normal 125 - 200 mg/dL [facility].; [facility], [facility]. Cholesterol in HDL [Mass/Vol] 54 mg/dL Normal [facility].; [facility]. Cholesterol in LDL [Mass/Vol] 99 mg/dL Normal [facility].; [employer] [facility] [place], [facility]. Cholesterol non HDL [Mass/Vol] 120 mg/dL Normal [facility].; [facility], [facility]. Cholesterol.total/[place] sterol in HDL [Mass ratio] 3.2 {ratio} Normal [facility].; [employer] [facility] [place], [facility]. CO2 [Moles/Vol] 28 mmol/L Normal 19 - 30 mmol/L [facility].; [facility], [facility]. Creatinine [Mass/Vol] 0.81 mg/dL Normal 0.50 - 0.99 mg/dL [facility], [facility].; [facility], [facility]. GFR/1.73 sq M.predicted among blacks MDRD (S/P/Bld) [Vol rate/Area] 87 {ML/MIN/1.73M2} Normal [facility], [facility].; [facility], [facility]. GFR/1.73 sq M.predicted MDRD (S/P/Bld) [Vol rate/Area] 75 {ML/MIN/1.73M2} Normal [facility].; [facility], [facility]. Globulin (S) [Mass/Vol] 3.4 g/dL Normal 1.9 - 3.7 g/dL [facility].; [facility], [facility]. Glucose [Mass/Vol] 94 mg/dL Normal 65 - 99 mg/dL [facility].; [facility], [facility]. Potassium [Moles/Vol] 4.3 mmol/L Normal 3.5 - 5.3 mmol/L [facility], [facility].; [facility], [facility] Protein [Mass/Vol] 7.8 g/dL Normal 6.1 - 8.1 g/dL [facility].; [facility], [facility]. Sodium [Moles/Vol] 141 mmol/L Normal 135 - 146 mmol/L [facility].; [facility], [facility]. Triglyceride [Mass/Vol] 102 mg/dL Normal H [facility].; [employer] [facility] [place] [facility] TSH Qn 3.01 m[IU]/L Normal 0.40 - 4.50 {mIU/L} [facility].; [employer] [facility] [place], [facility] Urea nitrogen [Mass/Vol] 13 mg/dL Normal 7 - 25 mg/dL [facility].; [employer] [facility] [place], [facility]. Urea nitrogen/Creatinine [Mass ratio] 15.8 mg/mg Normal 6 - 22 [facility].; [employer]. Laboratory - Hematology and Cell countson 11-21-2014 Basophils (Bld) [#/Vol] 60 {Cells}/uL Normal 0 - 200 {Cells}/uL [facility].; [employer] [place], [facility]. Basophils/100 WBC (Bld) 1 % Normal 0 - 1 % H [facility].; [employer] [facility] [place] [facility]. Eosinophils (Bld) [#/Vol] 250 {Cells}/uL Normal 15 - 500 {Cells}/uL [facility].; [facility], [facility]. Eosinophils/100 WBC (Bld) 5 % Abnormal 0 - 4 % [facility].; [employer] [place], [facility] Erythrocyte distribution width (RBC) [Ratio] 13.7 % Normal 11.0 - 15.0 % [facility].; [employer] [facility] [employer] Hematocrit (Bld) [Volume fraction] 38.5 % Normal 35.0 - 45.0 % [facility].; [facility], [facility]. Hemoglobin (Bld) [Mass/Vol] 12.8 g/dL Normal 11.7 - 15.5 g/dL [facility].; [facility], [facility]. Lymphocytes (Bld) [#/Vol] 2050 {Cells}/uL Normal 850 - 3900 {Cells}/uL [facility].; [facility], [facility]. Lymphocytes/100 WBC (Bld) 38 % Normal 12 - 47 % [facility].; [employer] [place], [facility]. MCH (RBC) [Entitic mass] 29.4 pg Normal 27.0 - 33.0 PG [facility].; [place], [facility]. MCHC (RBC) [Mass/Vol] 33.2 g/dL Normal 32.0 - 36.0 g/dL [facility].; [employer] [place], [facility]. MCV (RBC) [Entitic vol] 88.4 fL Normal 80.0 - 100.0 fL [facility].; [employer] [place], [facility]. Monocytes (Bld) [#/Vol] 310 {Cells}/uL Normal 20 0 - 950 {Cells}/uL [facility].; [place], [facility]. Monocytes/100 WBC (Bld) 6 % Normal 4 - 12 % H [facility].; [place], [facility]. Neutrophils (Bld) [#/Vol] 2770 {Cells}/uL Normal 1500 - 7800 {Cells}/uL [facility] [employer] [facility].; [place], [facility]. Neutrophils/100 WBC (Bld) 51 % Normal 40 - 75 % [facility] [employer] [facility].; [place], [facility]. Platelet mean volume (Bld) [Entitic vol] 9.0 fL Normal 7.5 - 11.5 fL [facility] [employer] [facility].; [employer], [facility]. Platelets (Bld) [#/Vol] 237 10*3/uL Normal 140 - 400 10*3/uL [employer] [place], [place]. RBC (Bld) [#/Vol] 4.35 10*6/uL Normal 3.80 - 5.1 0 10*6/uL [facility].; [facility]. WBC (Bld) [#/Vol] 5.4 10*3/uL Normal 3.8 - 10.8 10*3/uL [facility].; [employer]. Laboratory - Chemistry and C hemistry - challengeon 11-22-2013 Bilirubin Ql (U) Negative Normal [facility].; [employer] [facility] [employer]. Hemoglobin.gastrointest inal Ql (Stl) Negative Normal [facility].; [employer] [facility] [place], [place]. Ketones Ql (U) Negative Normal [facility].; [employer] [facility] [place], [place]. pH (U) 6.5 [pH] Normal [facility].; [employer]. Specific gravity (U) [Rel density] <=1.005 Normal [facility].; [employer]. Urobilinogen Qn (U) 0.2 mg/dL Normal [facility] [employer] [facility].; [employer] [facility] [employer]. Laboratory - Hematology and Cell countson 11-22-2013 Hemoglobin Ql (U) small Abnormal [facility].; [facility] [facility] [employer]. Laboratory - Specimen inform ationon 11-22-2013 Appearance (U) Clear Normal [facility].; [employer]. Color (U) yellow Normal [facility].; [employer]. Laboratory - Urinalysison Glucose Test strip (U) [Mass/Vol] Negative Normal [facility].; [employer]. Leukocyte esterase Test strip Ql (U) moderate Abnormal [facility].; [employer] [place], [place]. Nitrite Ql (U) Negative Normal [facility].; [place], [place]. Protein Ql (U) Negative Normal [facility].; [employer], [place]. Laboratory - Chemistry and C hemistry - challengeon 11-14-2013 Albumin [Mass/Vol] 4.2 g/dL Normal 3.6 - 5.1 g/dL [facility].; [facility], [facility]. Albumin/Globulin [Mass ratio] 1.5 {ratio} Normal 1.0 - 2.5 [facility].; [facility], [facility]. ALP [Catalytic activity/Vol] 77 U/L Normal 33 - 130 U/L [facility].; [facility], [facility]. ALT [Catalytic activity/Vol] 9 U/L Normal 6 - 29 U/L [facility].; [facility], [facility]. AST [Catalytic activity/Vol] 16 U/L Normal 10 - 35 U/L [facility].; [facility], [facility]. Bilirubin [Mass/Vol] 0.7 mg/dL Normal 0.2 - 1 .2 mg/dL [facility].; [employer] [facility] [place], [facility]. Calcium [Mass/Vol] 9.7 mg/dL Normal 8.6 - 10. 4 mg/dL [facility].; [facility]. Chloride [Moles/Vol] 105 mmol/L Normal 98 - 11 0 mmol/L [facility].; [employer] [facility] [place], [facility]. Cholesterol [Mass/Vol] 163 mg/dL Normal 125 - 200 mg/dL [facility].; [facility], [facility]. Cholesterol in HDL [Mass/Vol] 47 mg/dL Normal [facility].; [employer] [facility] [place], [facility]. Cholesterol in LDL [Mass/Vol] 94 mg/dL Normal [facility].; [facility], [facility]. Cholesterol non HDL [Mass/Vol] 116 mg/dL Normal [facility].; [employer] [facility] [place], [facility]. Cholesterol.total/[place] sterol in HDL [Mass ratio] 3.5 {ratio} Normal [facility].; [facility]. CO2 [Moles/Vol] 29 mmol/L Normal 19 - 30 mmol/L [facility].; [employer] [facility] [place], [facility]. Creatinine [Mass/Vol] 0.79 mg/dL Normal 0.50 - 0.99 mg/dL [facility].; [facility], [facility]. GFR/1.73 sq M.predicted among blacks MDRD (S/P/Bld) [Vol rate/Area] 90 {ML/MIN/1.73M2} Normal [facility], [facility].; [employer] [facility] [place], [facility]. GFR/1.73 sq M.predicted MDRD (S/P/Bld) [Vol rate/Area] 78 {ML/MIN/1.73M2} Normal [facility], [facility].; [facility] [facility] [facility], [place], [place]. Globulin (S) [Mass/Vol] 2.8 g/dL Normal 1.9 - 3.7 g/dL [facility], [facility].; [facility] [employer] [facility] [place], [facility]. Glucose [Mass/Vol] 95 mg/dL Normal 65 - 99 mg/dL [facility], [facility].; [facility] [employer] [facility] [place], [facility]. Potassium [Moles/Vol] 4.1 mmol/L Normal 3.5 - 5.3 mmol/L [facility], [facility].; [facility] [employer] [facility] [place], [facility]. Protein [Mass/Vol] 7.0 g/dL Normal 6.1 - 8.1 g/dL [facility].; [facility] [place], [place]. Sodium [Moles/Vol] 141 mmol/L Normal 135 - 146 mmol/L [facility], [facility].; [employer] [place], [place]. Triglyceride [Mass/Vol] 111 mg/dL Normal H [facility].; [facility] [employer] [facility] [place], [facility]. Urea nitrogen [Mass/Vol] 9 mg/dL Normal 7 - 25 mg/dL [facility], [facility].; [facility] [place], [facility]. Urea nitrogen/Creatinine [Mass ratio] 11.4 mg/mg Normal 6 - 22 [facility].; [facility] [employer]. Laboratory - Hematology and Cell countson 11-14-2013 Basophils (Bld) [#/Vol] 40 {Cells}/uL Normal 0 - 200 {Cells}/uL [facility] [employer] [facility].; [employer], [place]. Basophils/100 WBC (Bld) 1 % Normal [facility].; [facility] [employer] [facility] [place], [facility]. Eosinophils (Bld) [#/Vol] 420 {Cells}/uL Normal 15 - 500 {Cells}/uL [facility].; [facility] [employer], [employer] Eosinophils/100 WBC (Bld) 7 % Normal [facility].; [facility] Erythrocyte distribution width (RBC) [Ratio] 14.1 % Normal 11.0 - 15.0 % [facility]; [facility], [facility] Hematocrit (Bld) [Volume fraction] 36.8 % Normal 35.0 - 45.0 % [facility].; [facility], [facility] Hemoglobin (Bld) [Mass/Vol] 12.2 g/dL Normal 11.7 - 15.5 g/dL [facility].; [facility] Lymphocytes (Bld) [#/Vol] 2370 {Cells}/uL Normal 850 - 3900 {Cells}/uL [facility].; [facility], [facility] Lymphocytes/100 WBC (Bld) 39 % Normal [facility]; [facility], [facility] MCH (RBC) [Entitic mass] 29.6 pg Normal 27.0 - 33.0 PG [facility].; [facility], [facility]. MCHC (RBC) [Mass/Vol] 33.1 g/dL Normal 32.0 - 36.0 g/dL [facility].; [facility], [facility]. MCV (RBC) [Entitic vol] 89.5 fL Normal 80.0 - 100.0 fL [facility].; [facility], [facility]. Monocytes (Bld) [#/Vol] 340 {Cells}/uL Normal 20 0 - 950 {Cells}/uL [facility].; [facility], [facility]. Monocytes/100 WBC (Bld) 6 % Normal [facility].; [facility] Neutrophils (Bld) [#/Vol] 2880 {Cells}/uL Normal 1500 - 7800 {Cells}/uL [facility].; [facility], [facility]. Neutrophils/100 WBC (Bld) 48 % Normal [facility].; [facility], [facility] Platelets (Bld) [#/Vol] 242 10*3/uL Normal 140 - 400 10*3/uL [facility].; [facility], [facility]. RBC (Bld) [#/Vol] 4.11 10*6/uL Normal 3.80 - 5.1 0 10*6/uL [facility].; [facility], [facility]. WBC (Bld) [#/Vol] 6.1 10*3/uL Normal 3.8 - 10.8 10*3/uL [facility], [facility].; [facility] [employer] [facility] [place], [facility]. Laboratory - Chemistry and C hemistry - challengeon 11-02-2012 Hemoglobin.gastrointest inal Ql (Stl) Negative Normal [facility].; [employer] Laboratory - Chemistry and C hemistry - challengeon 10-23-2012 Calcium [Mass/Vol] 9.9 mg/dL Normal 8.6 - 10. 4 mg/dL [facility], [facility].; [facility] [employer] [facility] [place], [facility]. Chloride [Moles/Vol] 102 mmol/L Normal 98 - 11 0 mmol/L [facility], [facility].; [employer] [place], [facility]. Cholesterol [Mass/Vol] 165 mg/dL Normal 125 - 200 mg/dL [facility], [facility].; [facility] [place], [facility]. Cholesterol in HDL [Mass/Vol] 54 mg/dL Normal [facility], [facility].; [employer] [place], [place]. Cholesterol in LDL [Mass/Vol] 92 mg/dL Normal [facility].; [facility] [employer] [facility] [place], [employer] Cholesterol non HDL [Mass/Vol] 111 mg/dL Normal [facility], [facility].; [facility] [place], [place]. Cholesterol.total/Antonietta sterol in HDL [Mass ratio] 3.1 {ratio} Normal [facility].; [employer] CO2 [Moles/Vol] 28 mmol/L Normal 19 - 30 mmol/L [facility], [facility].; [employer] [place], [facility]. Creatinine [Mass/Vol] 0.71 mg/dL Normal 0.50 - 0.99 mg/dL [facility], [facility].; [facility] [facility] [place], [employer] GFR/1.73 sq M.predicted among blacks MDRD (S/P/Bld) [Vol rate/Area] 104 {ML/MIN/1.73M2} Normal [facility], [facility].; [employer] [place] GFR/1.73 sq M.predicted MDRD (S/P/Bld) [Vol rate/Area] 89 {ML/MIN/1.73M2} Normal [facility].; [facility] [employer] [facility] [place]. Glucose [Mass/Vol] 83 mg/dL Normal 65 - 99 mg/dL [facility], [facility].; [facility] [place], [facility]. Potassium [Moles/Vol] 4.2 mmol/L Normal 3.5 - 5.3 mmol/L [facility].; [facility], [facility]. Sodium [Moles/Vol] 141 mmol/L Normal 135 - 146 mmol/L [facility], [facility].; [facility] [place], [facility] Triglyceride [Mass/Vol] 94 mg/dL Normal H [facility].; [facility] [facility] [place], [facility] TSH Qn 4.13 m[IU]/L Normal 0.40 - 4.50 {mIU/L} [facility].; [facility] [place], [facility] Urea nitrogen [Mass/Vol] 10 mg/dL Normal 7 - 25 mg/dL [facility].; [employer], [place]. Urea nitrogen/Creatinine [Mass ratio] 13.7 mg/mg Normal 6 - 22 [facility].; [employer] [place], [place]. Laboratory - Hematology and Cell countson 10-23-2012 Basophils (Bld) [#/Vol] 30 {Cells}/uL Normal 0 - 200 {Cells}/uL [facility].; [employer], [place]. Basophils/100 WBC (Bld) 0 % Normal 0 - 2 % H [facility] BeachR[facility].; [facility] [place], [facility]. Eosinophils (Bld) [#/Vol] 290 {Cells}/uL Normal 15 - 500 {Cells}/uL [facility] [employer] [facility].; [employer], [place]. Eosinophils/100 WBC (Bld) 5 % Normal 0 - 8 % [facility] [employer] [facility].; [place] [place], [place]. Erythrocyte distribution width (RBC) [Ratio] 14.1 % Normal 11.0 - 15.0 % [facility] [employer] [facility] [place], [facility].; [employer], [place] Hematocrit (Bld) [Volume fraction] 39.6 % Normal 35.0 - 45.0 % [facility].; [facility], [facility]. Hemoglobin (Bld) [Mass/Vol] 12.9 g/dL Normal 11.7 - 15.5 g/dL [facility].; [facility], [facility]. Lymphocytes (Bld) [#/Vol] 2150 {Cells}/uL Normal 850 - 3900 {Cells}/uL [facility], [facility].; [facility], [facility]. Lymphocytes/100 WBC (Bld) 34 % Normal 15 - 49 % [facility], [facility].; [facility], [facility]. MCH (RBC) [Entitic mass] 30.0 pg Normal 27.0 - 33.0 PG [facility], [facility].; [facility], [facility]. MCHC (RBC) [Mass/Vol] 32.5 g/dL Normal 32.0 - 36.0 g/dL [facility], [facility].; [facility], [facility]. MCV (RBC) [Entitic vol] 92.4 fL Normal 80.0 - 100.0 fL [facility], [facility].; [facility], [facility]. Monocytes (Bld) [#/Vol] 100 {Cells}/uL Abnormal 20 0 - 950 {Cells}/uL [facility], [facility].; [facility], [facility]. Monocytes/100 WBC (Bld) 2 % Normal 0 - 13 % H [facility].; [facility], [facility]. Neutrophils (Bld) [#/Vol] 3800 {Cells}/uL Normal 1500 - 7800 {Cells}/uL [facility], [facility].; [facility], [facility]. Neutrophils/100 WBC (Bld) 60 % Normal 38 - 80 % [facility], [facility].; [facility] [facility] [place], [facility]. Platelets (Bld) [#/Vol] 254 10*3/uL Normal 140 - 400 10*3/uL [facility], [facility].; [facility], [facility]. RBC (Bld) [#/Vol] 4.28 10*6/uL Normal 3.80 - 5.1 0 10*6/uL [facility], [facility].; [employer] [place], [employer] WBC (Bld) [#/Vol] 6.4 10*3/uL Normal 3.8 - 10.8 10*3/uL [facility].; [employer]. Laboratory - Chemistry and C hemistry - challengeon 03-16-2012 TSH Qn 3.95 mU/mL Normal 0.35 - 5.5 mU/mL [facility].; [employer]. Laboratory - Chemistry and C hemistry - challengeon 09-09-2011 Bilirubin Ql (U) Negative [facility].; [employer] [employer] Ketones Ql (U) Negative Normal [facility].; [employer]. pH (U) 5.5 [pH] Normal 4.6 - 8.0 [facility] [employer]; [employer] Specific gravity (U) [Rel density] 1.020 Normal 1.001 - 1.025 [facility] [employer] [facility].; [employer]. Laboratory - Hematology and Cell countson 09-09-2011 Hemoglobin Ql (U) Moderate Abnormal [facility] [employer].; [employer]. Laboratory - Specimen inform ationon 09-09-2011 Appearance (U) Clear Normal [facility].; [employer]. Color (U) yellow Normal [facility] [employer] [facility]; [employer]. Laboratory - Urinalysison Glucose Test strip (U) [Mass/Vol] Negative Normal [facility].; [employer]. Leukocyte esterase Test strip Ql (U) small Abnormal [facility].; [employer]. Nitrite Ql (U) Negative Normal [facility].; [employer]. Protein Ql (U) Negative Normal [facility].; [employer]. No Panel Informationon 09-08 0.2 mg/dL Normal [facility] [employer].; [employer]. Laboratory - Chemistry and C hemistry - challengeon 08-23-2011 Albumin [Mass/Vol] 4.5 g/dL Normal 3.5 - 5.0 g/dL [facility] [employer]. Albumin/Globulin [Mass ratio] 1.7 {ratio} Abnormal [facility].; [facility], [facility]. ALP [Catalytic activity/Vol] 66 U/L Normal 50 - 136 U/L [facility].; [facility], [facility]. ALT [Catalytic activity/Vol] 11 mmol/L Abnormal 12 - 49 mmol/L [facility].; [facility], [facility]. AST [Catalytic activity/Vol] 17 U/L Normal 15 - 37 U/L [facility].; [facility] [employer] [facility] [place]. Bilirubin [Mass/Vol] 0.7 mg/dL Normal 0.3 - 1 .0 mg/dL [facility].; [facility], [facility]. Calcium [Mass/Vol] 9.8 mg/dL Normal 8.4 - 10. 6 mg/dL [facility].; [facility] [facility] [place], [facility]. Chloride [Moles/Vol] 105 mmol/L Normal 98 - 11 0 mmol/L [facility].; [facility] [facility] [place], [facility]. Cholesterol [Mass/Vol] 155 mg/dL Normal 0 - 2 00 mg/dL [facility].; [facility] [facility] [place], [facility]. Cholesterol in HDL [Mass/Vol] 51 mg/dL Normal 40 - 60 mg/dL [facility].; [facility], [facility]. Cholesterol in LDL [Mass/Vol] 86 mg/dL Normal 50.0 - 130.0 mg/dL [facility].; [facility] [facility] [place], [facility]. Cholesterol.total/[place]iet[place] sterol in HDL [Mass ratio] 3.0 {ratio} Normal 0 - 5.0 [facility].; [facility]. CO2 [Moles/Vol] 32.0 {joel/L} Normal 22.0 - 32.0 {joel/L} [facility].; [facility], [facility]. Creatinine [Mass/Vol] 0.7 mg/dL Normal 0.6 - 1.4 mg/dL [facility], [facility].; [facility] [facility] [place], [facility]. Globulin (S) [Mass/Vol] 2.6 g/dL Normal 1.5 - 3.8 g/dL [facility].; [facility] [employer] [facility] [place], [facility]. Glucose [Mass/Vol] 95 mg/dL Normal 75 - 105 mg/dL [facility].; [facility], [facility]. Potassium [Moles/Vol] 4.3 mmol/L Normal 3.50 - 5.00 meq/L [facility].; [facility], [facility] Protein [Mass/Vol] 7.1 g/dL Normal 6.4 - 8.2 g/dL [facility].; [facility], [facility] Sodium [Moles/Vol] 141 mmol/L Normal 136 - 145 mmol/L [facility].; [facility], [facility] Triglyceride [Mass/Vol] 89 mg/dL Normal 40 - 150 mg/dL [facility].; [facility], [facility] TSH Qn 5.86 mU/mL Abnormal 0.35 - 5.5 mU/mL [facility].; [facility], [facility] Urea nitrogen [Mass/Vol] 11 mg/dL Normal 7.0 - 20.0 mg/dL [facility].; [facility], [facility] Urea nitrogen/Creatinine [Mass ratio] 16 mg/mg Normal 0 - 30 [facility].; [facility], [facility] Laboratory - Hematology and Cell countson 08-23-2011 Basophils/100 WBC (Bld) 0.0 % Normal 0.00 - 0.10 [facility].; [facility], [facility]. Basophils/100 WBC (Bld) 0.8 % Normal 0.0 - 2.0 % [facility].; [facility], [facility]. Eosinophils/100 WBC (Bld) 0.30 % Normal 0.00 - 0.50 [facility].; [facility], [facility] Eosinophils/100 WBC (Bld) 5.5 % Normal 0.0 - 6.0 % [facility].; [facility], [facility] Erythrocyte distribution width (RBC) [Ratio] 13.6 % Normal 12.0 - 15.6 % [facility], [facility].; [facility] [employer] [facility] [place], [facility] Hematocrit (Bld) [Volume fraction] 39.6 % Normal 34 - 44 % [facility].; [facility], [facility] Lymphocytes/100 WBC (Bld) 1.80 % Normal [facility], [facility].; [employer] Lymphocytes/100 WBC (Bld) 30.5 % Normal 20.0 - 45.0 % [facility], [facility].; [facility] [facility] [place], [employer] MCH (RBC) [Entitic mass] 30 pg Normal 27 - 33 pg [facility], [facility].; [employer] MCHC (RBC) [Mass/Vol] 33 g/dL Normal 32 - 36 g/dL [facility], [facility].; [employer], [employer] MCV (RBC) [Entitic vol] 91 fL Normal 80 - 99 fL [facility], [employer].; [employer], [employer] Monocytes/100 WBC (Bld) 0.40 % Normal [facility], [facility].; [employer], [employer] Neutrophils/100 WBC (Bld) 56.4 % Normal 46 - 76 % [facility], [facility].; [employer] Platelet mean volume (Bld) [Entitic vol] 8.5 fL Normal 6.6 - 10.5 fL [facility], [facility].; [employer] Platelets (Bld) [#/Vol] 240 10*9{Cells}/L Normal 150 - 450 10*9{Cells}/ L [facility], [facility].; [employer], [employer] RBC (Bld) [#/Vol] 4.36 10*6/uL Normal 4.10 - 5.3 0 10*6/uL [facility] [employer], [facility].; [facility] [place], [employer] WBC (Bld) [#/Vol] 6.1 10*9{Cells}/L Normal 4.5 - 10.8 10*9{Cells}/ L [facility] [employer], [facility].; [facility] [place], [facility]. No Panel Informationon 08-22 3.40 10*6/uL Normal 1.5 - 7.1 10*6/uL [facility] [employer], [employer] 6.8 % Normal 2.0 - 13.0 % [facility], [facility].; [employer], [employer] 13.1 g/dL Normal 11.5 - 14.2 g/dL [facility].; [facility] [employer] [facility]. 84 Normal [facility].; [facility] [employer] [facility] [place]. Laboratory - Chemistry and C hemistry - challengeon 02-26-2011 Cholesterol [Mass/Vol] 210 mg/dL Abnormal 0 - 2 00 mg/dL [facility].; [facility] Cholesterol in HDL [Mass/Vol] 58 mg/dL Normal 40 - 60 mg/dL [facility].; [facility] [employer] [facility] [place]. Cholesterol in LDL [Mass/Vol] 138 mg/dL Abnormal 50.0 - 130.0 mg/dL [facility].; [facility] [employer] [facility], [place]. Cholesterol.total/[place]ietta sterol in HDL [Mass ratio] 3.6 {ratio} Normal 0 - 5.0 [facility]; [facility] [employer] [facility], [place]. Triglyceride [Mass/Vol] 69 mg/dL Normal 40 - 150 mg/dL [facility].; [facility] [employer]. Laboratory - Chemistry and C hemistry - challengeon 08-26-2010 Bilirubin Ql (U) Negative Normal [facility] [employer].; [facility] [employer]. Ketones Ql (U) Negative Normal [facility] [place].; [facility] [employer]. pH (U) 5.0 [pH] Normal 4.6 - 8.0 [facility].; [employer]. Specific gravity (U) [Rel density] 1.020 Normal 1.001 - 1.025 [facility].; [employer]. Laboratory - Hematology and Cell countson 08-26-2010 Hemoglobin Ql (U) Abnormal [facility] [employer] [facility].; [employer]. Laboratory - Specimen inform ationon 08-26-2010 Appearance (U) clear Normal [facility] [employer].; [employer]. Color (U) yellow Normal [facility] [employer] [facility].; [employer]. Laboratory - Urinalysison Glucose Test strip (U) [Mass/Vol] Negative Normal [facility] [employer].; [employer]. Leukocyte esterase Test strip Ql (U) large Abnormal [facility] [employer].; [employer] [employer]. Nitrite Ql (U) Negative Normal [facility] ed[facility] [employer].; [employer] [employer]. Protein Ql (U) Negative Normal [facility] [employer].; [employer]. No Panel Informationon 08-26 0.2 mg/dL Normal [facility] [employer].; [employer]. Laboratory - Chemistry and C hemistry - challengeon 07-23-2010 ALT [Catalytic activity/Vol] 15 mmol/L Normal 12 - 49 mmol/L [facility] [employer].; [employer] [employer]. Calcium [Mass/Vol] 10.1 mg/dL Normal 8.4 - 10. 6 mg/dL [facility].; [employer] [employer]. Chloride [Moles/Vol] 108 mmol/L Normal 98 - 11 0 mmol/L [facility] [employer].; [employer], [place]. Cholesterol [Mass/Vol] 139 mg/dL Normal 0 - 2 00 mg/dL [facility].; [employer] [employer]. Cholesterol in HDL [Mass/Vol] 48 mg/dL Normal 40 - 60 mg/dL [facility]. Cholesterol in LDL [Mass/Vol] 80 mg/dL Normal 0 - 100 mg/dL [facility].; [facility]. Cholesterol.total/Antonietta sterol in HDL [Mass ratio] 2.9 {ratio} Normal 0 - 5.0 [facility] [employer] [facility]. CO2 [Moles/Vol] 34.0 {joel/L} Abnormal 22.0 - 32.0 {joel/L} [facility].; [facility]. Glucose [Mass/Vol] 90 mg/dL Normal 60 - 100 mg/dL [facility].; [facility] [employer]. Potassium [Moles/Vol] 4.3 mmol/L Normal 3.5 - 5.0 mmol/L [facility] [employer] [employer]. Sodium [Moles/Vol] 144 mmol/L Normal 136 - 145 mmol/L [facility].; [employer], [employer]. Triglyceride [Mass/Vol] 57 mg/dL Normal 0 - 150 [facility]/dL [facility]. Urea nitrogen [Mass/Vol] 13 mg/dL Normal 8 - 22 mg/dL [facility] [employer], [employer]. Laboratory - Chemistry and C hemistry - challengeOrdered By: Janeth Florez on 07-23-2010 Creatinine [Mass/Vol] 0.6 mg/dL Normal 0.5 - 1.2 mg/dL [facility]. Work Phone: Laboratory - Hematology and Cell countson 07-23-2010 Basophils/100 WBC (Bld) 0.10 % Normal 0.00 - 0.10 [facility] Basophils/100 WBC (Bld) 1.1 % Normal 0.0 - 2.0 % [facility] [employer] [employer], [employer]. Eosinophils/100 WBC (Bld) 0.30 % Normal 0.00 - 0.50 [facility] [employer] [employer] [employer]. Eosinophils/100 WBC (Bld) 6.0 % Normal 0.0 - 6.0 % [facility] [employer] [employer], [employer]. Erythrocyte distribution width (RBC) [Ratio] 13.6 % Normal 12.0 - 15.6 % [facility] [employer] [employer] Hematocrit (Bld) [Volume fraction] 37.3 % Normal 34 - 44 % [facility] [employer] [employer], [employer]. Lymphocytes/100 WBC (Bld) 2.00 % Normal [facility] [employer].; [employer], [employer]. Lymphocytes/100 WBC (Bld) 36.3 % Normal 20.0 - 45.0 % [facility] [employer].; [facility] MCH (RBC) [Entitic mass] 31 pg Normal 27 - 33 pg [facility] [employer] [employer] [employer] MCHC (RBC) [Mass/Vol] 34 g/dL Normal 32 - 36 g/dL [facility].; [employer] MCV (RBC) [Entitic vol] 92 fL Normal 80 - 99 fL [facility] [employer] [employer] Monocytes/100 WBC (Bld) 0.50 % Normal H [facility], [facility].; [employer] Neutrophils/100 WBC (Bld) 48.3 % Normal 46 - 76 % [facility].; [facility] [employer] Platelet mean volume (Bld) [Entitic vol] 8.3 fL Normal 6.6 - 10.5 fL [facility], [facility].; [employer] Platelets (Bld) [#/Vol] 239 10*9{Cells}/L Normal 150 - 450 10*9{Cells}/ L [facility], [facility].; [employer] RBC (Bld) [#/Vol] 4.07 10*6/uL Abnormal 4.10 - 5.3 0 10*6/uL [facility], [facility].; [facility] [employer] WBC (Bld) [#/Vol] 5.5 10*9{Cells}/L Normal 4.5 - 10.8 10*9{Cells}/ L [facility], [facility].; [facility] [employer], [facility]. No Panel Informationon 07-23 2.70 10*6/uL Normal 1.5 - 7.1 10*6/uL [facility] [employer] [employer] [employer] [employer] 8.3 % Normal 2.0 - 13.0 % [facility], [facility].; [facility] 12.6 g/dL Normal 11.5 - 14.2 g/dL [facility] [employer] [facility].; [facility] Vital Signs Date Time Vital Sign Value Performing Clinician Faci lity 07-27-2024 09:27-0400 Diastolic blood pressure 84 mm[Hg] Dr. Joel Muniz MD Work Phone: [facility] 07-27-2024 09:27-0400 Heart rate 74 /min Dr. Joel Muniz MD Work Phone: [facility] 07-27-2024 09:27-0400 Respiratory rate 18 /min Dr. Joel Muniz MD Work Phone: [facility] 07-27-2024 09:27-0400 SaO2% (BldA) [Mass fraction] 94 % Dr. Joel Muniz MD Work Phone: 9(317)809-647375 [place] [address] 07-27-2024 09:27-0400 Systolic blood pressure 148 mm[Hg] Dr. Joel Muniz MD Work Phone: 5(366)475-629145 [place] [address] 07-13-2024 14:26-0400 Diastolic blood pressure 84 mm[Hg] Dr. Joel Muniz MD Work Phone: 7(668)907-445345 [place] [address] 07-13-2024 14:26-0400 Heart rate 64 /min Dr. Joel Muniz MD Work Phone: 6(117)638-080745 [place] [address] 07-13-2024 14:26-0400 Respiratory rate 18 /min Dr. Joel Muniz MD Work Phone: 1(160)468-072545 [place] [address] 07-13-2024 14:26-0400 SaO2% (BldA) [Mass fraction] 96 % Dr. Joel Muniz MD Work Phone: 6(033)171-155745 [place] [address] 07-13-2024 14:26-0400 Systolic blood pressure 179 mm[Hg] Dr. Joel Muniz MD Work Phone: 0(205)974-372375 [place] [address] 07-06-2024 14:31-0400 Body height 160.[address] Joel Muniz MD Work Phone: 1(433)344-876475 [place] [address] 07-06-2024 14:31-0400 Body temperature 98.7 [degF] Dr. Joel Muniz MD Work Phone: 5(218)137-382675 [place] [address] 07-06-2024 14:31-0400 Diastolic blood pressure 69 mm[Hg] Dr. Joel Muniz MD Work Phone: 4(142)229-132675 [place] [address] 07-06-2024 14:31-0400 Heart rate 90 /min Dr. Joel Muniz MD Work Phone: 7(367)233-209975 [place] [address] 07-06-2024 14:31-0400 Respiratory rate 18 /min Dr. Joel Muniz MD Work Phone: 9(638)872-938875 [place] [address] 07-06-2024 14:31-0400 SaO2% (BldA) [Mass fraction] 95 % Dr. Joel Muniz MD Work Phone: 7(090)614-263892 [address] 07-06-2024 14:31-0400 Systolic blood pressure 127 mm[Hg] Dr. Joel Muniz MD Work Phone: 2(652)038-436245 [place] [address] 07-03-2024 10:18-0400 Body height 160.[address] Joel Muniz MD Work Phone: 8(056)575-200245 [place] [address] 07-03-2024 10:18-0400 Body mass index (BMI) [Ratio] 24 kg/m2 Dr. Joel Muniz MD Work Phone: 2(187)208-905845 [place] [address] 07-03-2024 10:18-0400 Body weight 61.[address] Joel Muniz MD Work Phone: 0(379)057-004045 [place] [address] 07-03-2024 10:18-0400 Diastolic blood pressure 91 mm[Hg] Dr. Joel Muniz MD Work Phone: 1(462)707-270245 [place] [address] 07-03-2024 10:18-0400 Heart rate 66 /min Dr. Joel Muniz MD Work Phone: 0(095)828-494345 [place] [address] 07-03-2024 10:18-0400 Respiratory rate 18 /min Dr. Joel Muniz MD Work Phone: 1(040)019-963545 [place] [address] 07-03-2024 10:18-0400 SaO2% (BldA) [Mass fraction] 94 % Dr. Joel Muniz MD Work Phone: 6(846)011-448975 [place] [address] 07-03-2024 10:18-0400 Systolic blood pressure 165 mm[Hg] Dr. Joel Muniz MD Work Phone: 3(413)297-098245 [place] [address] 06-28-2024 14:56-0400 Body mass index (BMI) [Ratio] 23.7 kg/m2 Dr. Joel Muniz MD Work Phone: 7(570)876-684545 [place] [address] 06-28-2024 14:56-0400 Body temperature 97.7 [degF] Dr. Joel Muniz MD Work Phone: 7(721)605-395975 [place] [address] 06-28-2024 14:56-0400 Body weight 60.[address] Joel Muniz MD Work Phone: 9(612)114-307075 [place] [address] 06-28-2024 14:56-0400 Heart rate 76 /min Dr. Joel Muniz MD Work Phone: 2(086)257-129575 [place] [address] 06-28-2024 14:56-0400 Respiratory rate 18 /min Dr. Joel Muniz MD Work Phone: 8(409)632-461945 [place] [address] 06-28-2024 14:56-0400 SaO2% (BldA) [Mass fraction] 94 % Dr. Joel Muniz MD Work Phone: 9(008)067-816575 [place] [address] 06-26-2024 00:49-0400 Body temperature 98 [degF] Dr. Joel Muniz MD Work Phone: 3(383)376-934745 [place] [address] 06-26-2024 00:49-0400 Diastolic blood pressure 80 mm[Hg] Dr. Joel Muniz MD Work Phone: 5(548)447-796575 [place] [address] 06-26-2024 00:49-0400 Heart rate 89 /min Dr. Joel Muniz MD Work Phone: 1(993)388-142375 [place] [address] 06-26-2024 00:49-0400 Respiratory rate 16 /min Dr. Joel Muniz MD Work Phone: 3(461)774-528175 [place] [address] 06-26-2024 00:49-0400 SaO2% (BldA) [Mass fraction] 99 % Dr. Joel Muniz MD Work Phone: 9(038)115-366475 [place] [address] 06-26-2024 00:49-0400 Systolic blood pressure 146 mm[Hg] Dr. Joel Muniz MD Work Phone: 7(125)404-217075 [place] [address] 06-25-2024 20:55-0400 Body height 160.[address] Joel Muniz MD Work Phone: 0(605)017-632975 [place] [address] 06-25-2024 20:55-0400 Body mass index (BMI) [Ratio] 24.5 kg/m2 Dr. Joel Muniz MD Work Phone: 1(861)066-667075 [place] [address] 06-25-2024 20:55-0400 Body weight 62.[address] Joel Muniz MD Work Phone: 2(327)458-671745 [place] [address] 01-17-2024 15:58-0500 Diastolic blood pressure 80 mm[Hg] Chico Collier MD Work Phone: [facility]. 01-17-2024 15:58-0500 Systolic blood pressure 120 mm[Hg] Chico Collier MD Work Phone: [employer]; [facility]. 03-03-2023 09:30-0500 Blood Pressure Cuff Size STAN GARCIA DO [employer] 03-03-2023 09:30-0500 Blood Pressure Location STAN GARCIA DO [employer] 03-03-2023 09:30-0500 Blood Pressure Method STAN GARCIA DO [employer] 03-03-2023 09:30-0500 Body temperature 97.16 [degF] STAN RADHA DO [employer] 03-03-2023 09:30-0500 Diastolic Blood Pressure Non-Invasive 60 mm[Hg] STAN RADHA DO [employer] 03-03-2023 09:30-0500 Heart rate 93 /min STAN GARCIA DO [employer] 03-03-2023 09:30-0500 Reason For Taking VItal Signs STAN RADHA DO [employer] 03-03-2023 09:30-0500 Respiratory rate 18 /min STAN GARCIA DO [employer] 03-03-2023 09:30-0500 Systolic Blood Pressure Non-Invasive 108 mm[Hg] STAN RADHA DO [employer] 03-03-2023 05:17-0500 Body temperature 96.8 [degF] STAN BARRETTSHANNON DO [employer] 03-03-2023 05:17-0500 Diastolic Blood Pressure Non-Invasive 70 mm[Hg] STAN VIVEKATZLE DO [facility] 03-03-2023 05:17-0500 Heart rate 73 /min STAN DOYLEATZLE DO [employer] 03-03-2023 05:17-0500 Respiratory rate 16 /min STAN VIVEKATZLE DO [employer] 03-03-2023 05:17-0500 Systolic Blood Pressure Non-Invasive 100 mm[Hg] STAN SCHEATZLE DO [employer] 03-02-2023 21:09-0500 Body temperature 98.42 [degF] STAN VIVEKATZLE DO [employer] 03-02-2023 21:09-0500 Diastolic Blood Pressure Non-Invasive 70 mm[Hg] STAN DOYLEATZLE DO [employer] 03-02-2023 21:09-0500 Heart rate 78 /min STAN VIVEKATZLE DO [employer] 03-02-2023 21:09-0500 Reason For Taking VItal Signs STAN VIVEKATZLE DO [employer] 03-02-2023 21:09-0500 Respiratory rate 16 /min STAN SCHEATZLE DO [employer] 03-02-2023 21:09-0500 Systolic Blood Pressure Non-Invasive 150 mm[Hg] STAN SCHEATZLE DO [employer] 03-02-2023 16:18-0500 Body temperature 97.7 [degF] STAN DOYLEATZLE DO [employer] 03-02-2023 16:18-0500 Heart rate 82 /min STAN DOYLEATZLE DO [facility] 03-02-2023 16:18-0500 Reason For Taking VItal Signs STAN DOYLEATZLE DO [facility] 03-02-2023 11:35-0500 Heart rate 85 /min STAN DOYLEATZLE DO [facility] 03-02-2023 09:10-0500 Blood Pressure Cuff Size STAN DOYLEATZLE DO [facility] 03-02-2023 09:10-0500 Blood Pressure Location STAN DOYLEATZLE DO [facility] 03-02-2023 09:10-0500 Blood Pressure Method STAN DOYLEATZLE DO [facility] 03-02-2023 09:10-0500 Heart rate 88 /min STAN DOYLEATZLE DO [facility] 03-01-2023 08:55-0500 Blood Pressure Cuff Size STAN DOYLEATZLE DO [facility] 03-01-2023 08:55-0500 Blood Pressure Location STAN DOYLEATZLE DO [facility] 03-01-2023 08:55-0500 Blood Pressure Method STAN DOYLEATZLE DO [facility] 02-28-2023 05:00-0500 Body weight 58.6 kg STAN DOYLEATZLE DO [facility] 02-27-2023 09:19-0500 Body temperature 98.06 [degF] STAN VIVEKATZLE DO [facility] 02-26-2023 16:00-0500 Body temperature 97.88 [degF] STAN VIVEKATZLE DO [employer] [facility] 02-21-2023 09:10-0500 Body weight 59.4 kg STAN GARCIA DO [facility] 02-15-2023 17:37-0500 Body height 160 cm STAN GARCIA DO [facility] 02-15-2023 17:37-0500 Body weight 59.8 kg STAN GARCIA DO [facility] 02-15-2023 17:37-0500 Body weight 23.36 kg/m2 STAN GARCIA DO [facility] 02-15-2023 11:06-[address] KATINA VALDIVIA MD [facility] 02-15-2023 11:06-[address] KATINA VALDIVIA MD [address] [place] [address] 02-15-2023 11:06-0500 Body temperature 98.06 [degF] DR KATINA VALDIVIA MD [facility] 02-15-2023 11:06-0500 Diastolic Blood Pressure Non-Invasive 51 mm[Hg] DR KATINA VALDIVIA MD [facility] 02-15-2023 11:06-0500 Heart rate 90 /min DR KATINA VALDIVIA MD [facility] 02-15-2023 11:06-0500 Reason For Taking VItal Signs DR KATINA VALDIVIA MD [facility] 02-15-2023 11:06-0500 Respiratory rate 18 /min DR KATINA VALDIVIA MD [facility] 02-15-2023 11:06-0500 Systolic Blood Pressure Non-Invasive 97 mm[Hg] DR KATINA VALDIVIA MD [facility] 02-15-2023 07:36-[address] KATINA VALDIVIA MD [address] [place] [address] 02-15-2023 07:36-[address] KATINA VALDIVIA MD [address] [place] [address] 02-15-2023 07:36-0500 Body temperature 98.42 [degF] DR KATINA VALDIVIA MD [address] [place] [address] 02-15-2023 07:36-0500 Diastolic Blood Pressure Non-Invasive 83 mm[Hg] DR KATINA VALDIVIA MD [address] [place] [address] 02-15-2023 07:36-0500 Heart rate 88 /min DR KATINA VALDIVIA MD [address] [place] [address] 02-15-2023 07:36-0500 Reason For Taking VItal Signs DR KATINA VALDIVIA MD [address] [place] [address] 02-15-2023 07:36-0500 Respiratory rate 16 /min DR KATINA VALDIVIA MD [address] [place] [address] 02-15-2023 07:36-0500 Systolic Blood Pressure Non-Invasive 144 mm[Hg] DR KATINA VALDIVIA MD [address] [place] [address] 02-15-2023 04:03-0500 Body temperature 98.06 [degF] DR KATINA VALDIVIA MD [address] [place] [address] 02-15-2023 04:03-0500 Diastolic Blood Pressure Non-Invasive 79 mm[Hg] DR KATINA VALDIVIA MD [address] [place] [address] 02-15-2023 04:03-0500 Heart rate 86 /min DR KATINA VALDIVIA MD [address] [place] [address] 02-15-2023 04:03-0500 Reason For Taking VItal Signs DR KATINA VALDIVIA MD [address] 02-15-2023 04:03-0500 Respiratory rate 18 /min DR KATINA VALDIVIA MD [address] [place] [address] 02-15-2023 04:03-0500 Systolic Blood Pressure Non-Invasive 106 mm[Hg] DR KATINA VALDIVIA MD [address] [place] [address] 02-14-2023 23:31-0500 Heart rate 84 /min DR KATINA VALDIVIA MD [address] [place] [address] 02-14-2023 18:56-[address] KATINA VALDIVIA MD [address] [place] [address] 02-14-2023 18:56-[address] KATINA VALDIVIA MD [address] [place] [address] 02-14-2023 18:49-0500 Body height [address] KATINA VALDIVIA MD [address] [place] [address] 02-14-2023 18:49-0500 Body weight 57.[address] KATINA VALDIVIA MD [address] [place] [address] 02-14-2023 18:49-0500 Body weight 22.46 kg/m2 DR KATINA VALDIVIA MD [address] [place] [address] 02-13-2023 10:52-0500 Blood Pressure Cuff Size DR KATINA VALDIVIA MD [address] [place] [address] 02-13-2023 07:37-0500 Blood Pressure Cuff Size DR KATINA VALDIVIA MD [address] [place] [address] 02-13-2023 03:21-0500 Heart rate 83 /min DR KATINA VALDIVIA MD [address] [place] [address] 02-12-2023 12:07-0500 Blood Pressure Cuff Size DR KATINA VALDIVIA MD [address] [place] [address] 02-12-2023 05:32-0500 Heart rate 73 /min DR KATINA VALDIVIA MD [address] [place] [address] 02-12-2023 04:01-0500 Heart rate 78 /min DR KATINA VALDIVIA MD [address] [place] [address] 02-11-2023 23:48-0500 Heart rate 78 /min DR KATINA VALDIVIA MD [address] [place] [address] 02-11-2023 23:48-0500 Mean blood pressure 99 mm[Hg] DR KATINA VALDIVIA MD [address] [place] [address] 02-10-2023 19:29-0500 Heart rate 84 /min DR KATINA VALDIVIA MD [address] [place] [address] 02-10-2023 03:32-0500 Mean blood pressure 102 mm[Hg] DR KATINA VALDIVIA MD [address] [place] [address] 02-09-2023 23:03-0500 Body height [address] KATINA VALDIVIA MD [address] [place] [address] 02-09-2023 23:03-0500 Body weight 57.[address] KATINA VALDIVIA MD [address] [place] [address] 02-09-2023 23:03-0500 Body weight 22.46 kg/m2 DR KATINA VALDIVIA MD [address] [place] [address] 02-08-2023 18:00-0500 Mean blood pressure 87 mm[Hg] DR KATINA VALDIVIA MD [address] [place] [address] 02-08-2023 16:22-0500 Body weight 62.[address] KATINA VALDIVIA MD [address] [place] [address] 01-26-2023 14:18-0500 Body weight 59.42 kg Obi Meier LPN [facility], [facility].; [facility]. 01-26-2023 14:18-0500 Diastolic blood pressure 78 mm[Hg] Obi Meier LPN [facility].; [facility]. 01-26-2023 14:18-0500 Heart rate 79 /min Obi Meier LPN [facility], [facility].; [facility]. 01-26-2023 14:18-0500 Systolic blood pressure 145 mm[Hg] Obi Hardeepeduardo JOHNSON [facility].; [facility]. 01-12-2023 10:38-0500 Diastolic blood pressure 72 mm[Hg] Chico Collier MD Work Phone: [facility].; [facility]. 01-12-2023 10:38-0500 Systolic blood pressure 159 mm[Hg] Chico Collier MD Work Phone: [facility].; [employer]. 01-12-2023 09:49-0500 Body height 152.4 cm Serena Zack DESKTOP SUPPORT TECHNICIAN Work Phone: [facility].; [employer]. 01-12-2023 09:49-0500 Body mass index (BMI) [Ratio] 25.78 kg/m2 Serena Zack DESKTOP SUPPORT TECHNICIAN Work Phone: [facility].; [employer]. 01-12-2023 09:49-0500 Body surface area Derived from formula 1.56 m2 Serena Zack DESKTOP SUPPORT TECHNICIAN Work Phone: [employer].; [employer] 01-12-2023 09:49-0500 Body weight 59.88 kg Serena Zack DESKTOP SUPPORT TECHNICIAN Work Phone: [employer].; [employer] 01-12-2023 09:49-0500 Diastolic blood pressure 83 mm[Hg] Serena Zack DESKTOP SUPPORT TECHNICIAN Work Phone: [facility].; [employer]. 01-12-2023 09:49-0500 Heart rate 68 /min Serena Zack DESKTOP SUPPORT TECHNICIAN Work Phone: [employer].; [employer] 01-12-2023 09:49-0500 Systolic blood pressure 168 mm[Hg] Serena Zack DESKTOP SUPPORT TECHNICIAN Work Phone: [facility].; [facility]. 04-30-2022 15:29-0400 Body height 152.4 cm Tavia Leavitt LPN [facility].; [facility] [employer] [facility] [place], [facility]. 04-30-2022 15:29-0400 Body mass index (BMI) [Ratio] 23.24 kg/m2 Tavia Leavitt LPN [facility].; [facility] [facility] [place], [facility]. 04-30-2022 15:29-0400 Body surface area Derived from formula 1.5 m2 Tavia Leavitt LPN [facility].; [facility] [employer] [facility] [place], [facility]. 04-30-2022 15:29-0400 Body weight 53.98 kg Tavia Leavitt LPN [facility].; [facility] [employer] [facility] [place], [facility]. 04-30-2022 15:29-0400 Diastolic blood pressure 61 mm[Hg] Tavia Leavitt LPN [facility].; [facility] [employer] [facility] [place], [facility]. 04-30-2022 15:29-0400 Heart rate 67 /min Tavia Leavitt LPN [facility].; [facility] [employer] [facility] [place], [facility]. 04-30-2022 15:29-0400 Systolic blood pressure 157 mm[Hg] Tavia Leavitt LPN [facility] [employer] [facility] [place], [facility].; [facility] [employer] [facility] [place], [facility]. 01-06-2022 09:51-0500 Body height 152.4 cm Tavia Leavitt LPN [facility].; [facility], [facility]. 01-06-2022 09:51-0500 Body mass index (BMI) [Ratio] 22.26 kg/m2 Tavia Leavitt LPN [facility] [facility] [place], [facility].; [facility] [employer], [facility]. 01-06-2022 09:51-0500 Body surface area Derived from formula 1.47 m2 Tavia Leavitt LPN [facility] [facility] [place], [facility].; [facility], [facility]. 01-06-2022 09:51-0500 Body weight 51.71 kg Tavia Leavitt LPN [facility] [employer] [facility] [place], [facility].; [facility], [facility]. 01-06-2022 09:51-0500 Diastolic blood pressure 64 mm[Hg] T[facility]itt LPN [facility].; [facility] [facility]. 01-06-2022 09:51-0500 Heart rate 79 /min Tavia Leavitt LPN [facility] [employer] 01-06-2022 09:51-0500 Systolic blood pressure 125 mm[Hg] Tavia Leavitt LPN [facility] [employer] 11-16-2021 15:51-0400 Body height 152.4 cm Serena Zack DESKTOP SUPPORT TECHNICIAN Work Phone: [facility].; [facility], [employer]. 11-16-2021 15:51-0400 Body mass index (BMI) [Ratio] 22.46 kg/m2 Serena Zack DESKTOP SUPPORT TECHNICIAN Work Phone: [facility].; [facility] [employer], [employer]. 11-16-2021 15:51-0400 Body surface area Derived from formula 1.48 m2 Serena Zack DESKTOP SUPPORT TECHNICIAN Work Phone: [facility] [employer] [facility], [employer]. 11-16-2021 15:51-0400 Body weight 52.16 kg Serena Zack DESKTOP SUPPORT TECHNICIAN Work Phone: [facility].; [employer] 11-16-2021 15:51-0400 Diastolic blood pressure 79 mm[Hg] Serena Zack DESKTOP SUPPORT TECHNICIAN Work Phone: [facility].; [facility]. 11-16-2021 15:51-0400 Heart rate 88 /min Serena Zack DESKTOP SUPPORT TECHNICIAN Work Phone: [facility].; [facility]. 11-16-2021 15:51-0400 Systolic blood pressure 135 mm[Hg] Serena Zack DESKTOP SUPPORT TECHNICIAN Work Phone: [facility].; [employer] 07-08-2021 10:26-0400 Body height 152.4 cm Serena Zack DESKTOP SUPPORT TECHNICIAN Work Phone: [facility].; [facility]. 07-08-2021 10:26-0400 Body mass index (BMI) [Ratio] 22.46 kg/m2 Serena Zack DESKTOP SUPPORT TECHNICIAN Work Phone: [facility].; [facility]. 07-08-2021 10:26-0400 Body surface area Derived from formula 1.48 m2 Serena Zack DESKTOP SUPPORT TECHNICIAN Work Phone: [facility].; [facility]. 07-08-2021 10:26-0400 Body weight 52.16 kg Serena Zack DESKTOP SUPPORT TECHNICIAN Work Phone: [facility].; [facility]. 07-08-2021 10:26-0400 Diastolic blood pressure 88 mm[Hg] Serena Zack DESKTOP SUPPORT TECHNICIAN Work Phone: [facility] Source.; [facility] 07-08-2021 10:26-0400 Systolic blood pressure 160 mm[Hg] Serena Zack DESKTOP SUPPORT TECHNICIAN Work Phone: [facility]. 01-05-2021 10:22-0500 Body height 152.4 cm Serena Zack DESKTOP SUPPORT TECHNICIAN Work Phone: [facility] 01-05-2021 10:22-0500 Body mass index (BMI) [Ratio] 22.46 kg/m2 Serena Zack DESKTOP SUPPORT TECHNICIAN Work Phone: [facility] 01-05-2021 10:22-0500 Body surface area Derived from formula 1.48 m2 Serena Zack DESKTOP SUPPORT TECHNICIAN Work Phone: [facility] 01-05-2021 10:22-0500 Body weight 52.16 kg Serena Zack DESKTOP SUPPORT TECHNICIAN Work Phone: [facility] 01-05-2021 10:22-0500 Diastolic blood pressure 86 mm[Hg] Serena Zack DESKTOP SUPPORT TECHNICIAN Work Phone: [facility] [facility] 01-05-2021 10:22-0500 Heart rate 90 /min Serena Zack DESKTOP SUPPORT TECHNICIAN Work Phone: [facility] 01-05-2021 10:22-0500 Systolic blood pressure 151 mm[Hg] Serena Zack DESKTOP SUPPORT TECHNICIAN Work Phone: [facility] 08-06-2020 11:07-0400 Body height 152.4 cm Serena Zack DESKTOP SUPPORT TECHNICIAN Work Phone: [facility] 08-06-2020 11:07-0400 Body mass index (BMI) [Ratio] 23.44 kg/m2 Serena Zack DESKTOP SUPPORT TECHNICIAN Work Phone: [facility] 08-06-2020 11:07-0400 Body surface area Derived from formula 1.5 m2 Serena Zack DESKTOP SUPPORT TECHNICIAN Work Phone: [facility] 08-06-2020 11:07-0400 Body weight 54.43 kg Serena Zack DESKTOP SUPPORT TECHNICIAN Work Phone: [employer] 08-06-2020 11:07-0400 Diastolic blood pressure 84 mm[Hg] Serena Zack DESKTOP SUPPORT TECHNICIAN Work Phone: [facility] 08-06-2020 11:07-0400 Heart rate 79 /min Serena Zack DESKTOP SUPPORT TECHNICIAN Work Phone: [employer] 08-06-2020 11:07-0400 Systolic blood pressure 154 mm[Hg] Serena Zack DESKTOP SUPPORT TECHNICIAN Work Phone: [facility] [employer] 07-28-2020 10:29-0400 Body weight 54.43 kg Serena Zack DESKTOP SUPPORT TECHNICIAN Work Phone: [facility] [employer] 07-28-2020 10:29-0400 Diastolic blood pressure 82 mm[Hg] Serena Zack DESKTOP SUPPORT TECHNICIAN Work Phone: [facility] 07-28-2020 10:29-0400 Heart rate 80 /min Serena Zack DESKTOP SUPPORT TECHNICIAN Work Phone: [facility].; [facility] 07-28-2020 10:29-0400 Systolic blood pressure 157 mm[Hg] Serena Zack DESKTOP SUPPORT TECHNICIAN Work Phone: [facility].; [facility] 06-30-2020 10:23-0400 Body height 152.4 cm Serena Zack DESKTOP SUPPORT TECHNICIAN Work Phone: [facility] 06-30-2020 10:23-0400 Body mass index (BMI) [Ratio] 23.24 kg/m2 Serena Zack DESKTOP SUPPORT TECHNICIAN Work Phone: [facility].; [facility] 06-30-2020 10:23-0400 Body surface area Derived from formula 1.5 m2 Serena Zack DESKTOP SUPPORT TECHNICIAN Work Phone: [facility].; [facility]. 06-30-2020 10:23-0400 Body weight 53.98 kg Serena Zack DESKTOP SUPPORT TECHNICIAN Work Phone: [facility].; [facility] 06-30-2020 10:23-0400 Diastolic blood pressure 107 mm[Hg] Serena Zack DESKTOP SUPPORT TECHNICIAN Work Phone: [facility].; [facility] 06-30-2020 10:23-0400 Heart rate 87 /min Serena Zack DESKTOP SUPPORT TECHNICIAN Work Phone: [facility] 06-30-2020 10:23-0400 Systolic blood pressure 177 mm[Hg] Serena Zack DESKTOP SUPPORT TECHNICIAN Work Phone: [facility] 12-31-2019 09:48-0500 Body height 152.4 cm Serena Zack DESKTOP SUPPORT TECHNICIAN Work Phone: [facility] 12-31-2019 09:48-0500 Body mass index (BMI) [Ratio] 21.29 kg/m2 Serena Zack DESKTOP SUPPORT TECHNICIAN Work Phone: [facility] 12-31-2019 09:48-0500 Body surface area Derived from formula 1.44 m2 Serena Zack DESKTOP SUPPORT TECHNICIAN Work Phone: [facility] 12-31-2019 09:48-0500 Body weight 49.44 kg Serena Zack DESKTOP SUPPORT TECHNICIAN Work Phone: [facility] 12-31-2019 09:48-0500 Diastolic blood pressure 87 mm[Hg] Serena Zack DESKTOP SUPPORT TECHNICIAN Work Phone: [facility] 12-31-2019 09:48-0500 Heart rate 98 /min Serena Zack DESKTOP SUPPORT TECHNICIAN Work Phone: [facility] 12-31-2019 09:48-0500 Systolic blood pressure 144 mm[Hg] Serena Zack DESKTOP SUPPORT TECHNICIAN Work Phone: [facility] 10-01-2019 09:13-0400 Body height 157.48 cm Serena Zack DESKTOP SUPPORT TECHNICIAN Work Phone: [facility] 10-01-2019 09:13-0400 Body mass index (BMI) [Ratio] 19.75 kg/m2 Serena Zack DESKTOP SUPPORT TECHNICIAN Work Phone: [facility] 10-01-2019 09:13-0400 Body surface area Derived from formula 1.47 m2 Serena Zack DESKTOP SUPPORT TECHNICIAN Work Phone: [facility] 10-01-2019 09:13-0400 Body weight 48.99 kg Serena Dumonty DESKTOP SUPPORT TECHNICIAN Work Phone: [facility] 10-01-2019 09:13-0400 Diastolic blood pressure 99 mm[Hg] Serena Zack DESKTOP SUPPORT TECHNICIAN Work Phone: [facility] 10-01-2019 09:13-0400 Heart rate 73 /min Serena Zack DESKTOP SUPPORT TECHNICIAN Work Phone: [facility] 10-01-2019 09:13-0400 Systolic blood pressure 177 mm[Hg] Serenaakshat Dumonty DESKTOP SUPPORT TECHNICIAN Work Phone: [facility] 06-28-2019 11:35-0400 Diastolic blood pressure 87 mm[Hg] Chico Collier MD Work Phone: [facility] 06-28-2019 11:35-0400 Systolic blood pressure 150 mm[Hg] Chico Collier MD Work Phone: [facility] 06-28-2019 10:21-0400 Body height 157.48 cm Serenaakshat Dumonty DESKTOP SUPPORT TECHNICIAN Work Phone: [facility] 06-28-2019 10:21-0400 Body mass index (BMI) [Ratio] 21.22 kg/m2 Serena Zack DESKTOP SUPPORT TECHNICIAN Work Phone: [facility] 06-28-2019 10:21-0400 Body surface area Derived from formula 1.52 m2 Serena Zack DESKTOP SUPPORT TECHNICIAN Work Phone: [facility] 06-28-2019 10:21-0400 Body weight 52.62 kg Serena Zack DESKTOP SUPPORT TECHNICIAN Work Phone: [facility] 06-28-2019 10:21-0400 Diastolic blood pressure 91 mm[Hg] Serena Zack DESKTOP SUPPORT TECHNICIAN Work Phone: [facility] 06-28-2019 10:21-0400 Heart rate 78 /min Serena Zack DESKTOP SUPPORT TECHNICIAN Work Phone: [facility] 06-28-2019 10:21-0400 Systolic blood pressure 169 mm[Hg] Serena Zack DESKTOP SUPPORT TECHNICIAN Work Phone: [facility] 12-28-2018 09:51-0500 Body height 157.48 cm Serena Zack DESKTOP SUPPORT TECHNICIAN Work Phone: [facility] 12-28-2018 09:51-0500 Body mass index (BMI) [Ratio] 20.48 kg/m2 Serena Zack DESKTOP SUPPORT TECHNICIAN Work Phone: [facility] 12-28-2018 09:51-0500 Body surface area Derived from formula 1.49 m2 Serena Zack DESKTOP SUPPORT TECHNICIAN Work Phone: [facility] 12-28-2018 09:51-0500 Body weight 50.8 kg Serena Zack DESKTOP SUPPORT TECHNICIAN Work Phone: [facility] 12-28-2018 09:51-0500 Diastolic blood pressure 81 mm[Hg] Serena Zack DESKTOP SUPPORT TECHNICIAN Work Phone: [facility] [employer] 12-28-2018 09:51-0500 Heart rate 70 /min Serena Zack DESKTOP SUPPORT TECHNICIAN Work Phone: [facility] [employer] 12-28-2018 09:51-0500 Systolic blood pressure 145 mm[Hg] Serena Zack DESKTOP SUPPORT TECHNICIAN Work Phone: [employer] 12-23-2017 09:42-0500 Body height 157.48 cm Serena Zack DESKTOP SUPPORT TECHNICIAN Work Phone: [facility] [employer] 12-23-2017 09:42-0500 Body mass index (BMI) [Ratio] 20.3 kg/m2 Serena Zack DESKTOP SUPPORT TECHNICIAN Work Phone: [facility] [employer] 12-23-2017 09:42-0500 Body surface area Derived from formula 1.49 m2 Serena Zack DESKTOP SUPPORT TECHNICIAN Work Phone: [facility] [employer] 12-23-2017 09:42-0500 Body weight 50.35 kg Serena Zack DESKTOP SUPPORT TECHNICIAN Work Phone: [facility] [employer] 12-23-2017 09:42-0500 Diastolic blood pressure 89 mm[Hg] Serena Zack DESKTOP SUPPORT TECHNICIAN Work Phone: [facility] [employer] 12-23-2017 09:42-0500 Heart rate 71 /min Serena Zack DESKTOP SUPPORT TECHNICIAN Work Phone: [facility] [employer] 12-23-2017 09:42-0500 Systolic blood pressure 148 mm[Hg] Serena Zack DESKTOP SUPPORT TECHNICIAN Work Phone: [facility] [employer] 09-19-2017 11:14-0400 Body height 157.48 cm Serena Zack DESKTOP SUPPORT TECHNICIAN Work Phone: [facility] 09-19-2017 11:14-0400 Body mass index (BMI) [Ratio] 20.12 kg/m2 Serena Zack DESKTOP SUPPORT TECHNICIAN Work Phone: [facility] [employer] 09-19-2017 11:14-0400 Body surface area Derived from formula 1.48 m2 Serena Zack DESKTOP SUPPORT TECHNICIAN Work Phone: [facility] [employer] 09-19-2017 11:14-0400 Body weight 49.9 kg Serenaakshat Dumonty DESKTOP SUPPORT TECHNICIAN Work Phone: [facility] [employer] 09-19-2017 11:14-0400 Diastolic blood pressure 90 mm[Hg] Serena Dumonty DESKTOP SUPPORT TECHNICIAN Work Phone: [facility] 09-19-2017 11:14-0400 Heart rate 71 /min Serena Dumonty DESKTOP SUPPORT TECHNICIAN Work Phone: [facility] 09-19-2017 11:14-0400 Systolic blood pressure 152 mm[Hg] Serena Dumonty DESKTOP SUPPORT TECHNICIAN Work Phone: [facility] [employer] 09-05-2017 09:00-0400 Body height 157.48 cm Serena Dumonty DESKTOP SUPPORT TECHNICIAN Work Phone: [facility] [employer] 09-05-2017 09:00-0400 Body mass index (BMI) [Ratio] 20.48 kg/m2 Serena Zack DESKTOP SUPPORT TECHNICIAN Work Phone: [facility] [employer] 09-05-2017 09:00-0400 Body surface area Derived from formula 1.49 m2 Serena Zack DESKTOP SUPPORT TECHNICIAN Work Phone: [facility] 09-05-2017 09:00-0400 Body weight 50.8 kg Serena Zack DESKTOP SUPPORT TECHNICIAN Work Phone: [facility] [employer] 09-05-2017 09:00-0400 Diastolic blood pressure 83 mm[Hg] Serena Zack DESKTOP SUPPORT TECHNICIAN Work Phone: [employer] 09-05-2017 09:00-0400 Heart rate 65 /min Serena Zack DESKTOP SUPPORT TECHNICIAN Work Phone: [facility] [employer] 09-05-2017 09:00-0400 Systolic blood pressure 150 mm[Hg] Serena Zack DESKTOP SUPPORT TECHNICIAN Work Phone: [employer] 08-29-2017 08:59-0400 Body height 157.48 cm Serena Zack DESKTOP SUPPORT TECHNICIAN Work Phone: [facility] [employer] 08-29-2017 08:59-0400 Body mass index (BMI) [Ratio] 20.48 kg/m2 Serena Zack DESKTOP SUPPORT TECHNICIAN Work Phone: [facility] [employer] 08-29-2017 08:59-0400 Body surface area Derived from formula 1.49 m2 Serena Zack DESKTOP SUPPORT TECHNICIAN Work Phone: [facility] [employer] 08-29-2017 08:59-0400 Body weight 50.8 kg Serena Zack DESKTOP SUPPORT TECHNICIAN Work Phone: [facility] [employer] 08-29-2017 08:59-0400 Diastolic blood pressure 91 mm[Hg] Serena Zack DESKTOP SUPPORT TECHNICIAN Work Phone: [facility] [employer] 08-29-2017 08:59-0400 Heart rate 75 /min Serena Zack DESKTOP SUPPORT TECHNICIAN Work Phone: [facility] 08-29-2017 08:59-0400 Systolic blood pressure 161 mm[Hg] Serena Zack DESKTOP SUPPORT TECHNICIAN Work Phone: [facility] 06-24-2017 10:32-0400 Body height 157.48 cm Serena Zack DESKTOP SUPPORT TECHNICIAN Work Phone: [facility] 06-24-2017 10:32-0400 Body mass index (BMI) [Ratio] 20.3 kg/m2 Serena Zack DESKTOP SUPPORT TECHNICIAN Work Phone: [facility] 06-24-2017 10:32-0400 Body surface area Derived from formula 1.49 m2 Serena Zack DESKTOP SUPPORT TECHNICIAN Work Phone: [facility] 06-24-2017 10:32-0400 Body weight 50.35 kg Serenaakshat Dumonty DESKTOP SUPPORT TECHNICIAN Work Phone: [facility] 06-24-2017 10:32-0400 Diastolic blood pressure 94 mm[Hg] Serena Zack DESKTOP SUPPORT TECHNICIAN Work Phone: [facility] 06-24-2017 10:32-0400 Heart rate 77 /min Serena Zack DESKTOP SUPPORT TECHNICIAN Work Phone: [facility] 06-24-2017 10:32-0400 Systolic blood pressure 175 mm[Hg] Serena Zack DESKTOP SUPPORT TECHNICIAN Work Phone: [facility] 03-24-2017 10:35-0500 Body height 157.48 cm Neilee L Vess DESKTOP SUPPORT TECHNICIAN [facility] 03-24-2017 10:35-0500 Body mass index (BMI) [Ratio] 20.12 kg/m2 Neilee L Vess DESKTOP SUPPORT TECHNICIAN [facility] 03-24-2017 10:35-0500 Body surface area Derived from formula 1.48 m2 Neilee L Vess DESKTOP SUPPORT TECHNICIAN [employer] 03-24-2017 10:35-0500 Body weight 49.9 kg Neilee L Vess DESKTOP SUPPORT TECHNICIAN [facility] [facility] 03-24-2017 10:35-0500 Diastolic blood pressure 80 mm[Hg] Neilee L Vess DESKTOP SUPPORT TECHNICIAN [facility] 03-24-2017 10:35-0500 Heart rate 80 /min Neilee L Vess DESKTOP SUPPORT TECHNICIAN [facility] [facility] 03-24-2017 10:35-0500 Systolic blood pressure 144 mm[Hg] Neilee L Vess DESKTOP SUPPORT TECHNICIAN [facility] [facility] 12-22-2016 09:49-0500 Body height 157.48 cm Serena Zack DESKTOP SUPPORT TECHNICIAN Work Phone: [facility] 12-22-2016 09:49-0500 Body mass index (BMI) [Ratio] 21.03 kg/m2 Serena Zack DESKTOP SUPPORT TECHNICIAN Work Phone: [facility] 12-22-2016 09:49-0500 Body surface area Derived from formula 1.51 m2 Serena Zack DESKTOP SUPPORT TECHNICIAN Work Phone: [facility] 12-22-2016 09:49-0500 Body weight 52.16 kg Serena Zack DESKTOP SUPPORT TECHNICIAN Work Phone: [facility] 12-22-2016 09:49-0500 Diastolic blood pressure 91 mm[Hg] Serena Zack DESKTOP SUPPORT TECHNICIAN Work Phone: [facility] 12-22-2016 09:49-0500 Heart rate 77 /min Serena Zack DESKTOP SUPPORT TECHNICIAN Work Phone: [facility] 12-22-2016 09:49-0500 Systolic blood pressure 148 mm[Hg] Serena Zack DESKTOP SUPPORT TECHNICIAN Work Phone: [facility] [employer] 07-29-2016 09:04-0400 Body height 157.48 cm Neilee L Vess DESKTOP SUPPORT TECHNICIAN [facility] 07-29-2016 09:04-0400 Body mass index (BMI) [Ratio] 21.58 kg/m2 Neilee L Vess DESKTOP SUPPORT TECHNICIAN [facility] [employer] 07-29-2016 09:04-0400 Body surface area Derived from formula 1.53 m2 Neilee L Vess DESKTOP SUPPORT TECHNICIAN [facility] 07-29-2016 09:04-0400 Body weight 53.52 kg Neilee L Vess DESKTOP SUPPORT TECHNICIAN [facility] 07-29-2016 09:04-0400 Diastolic blood pressure 85 mm[Hg] Neilee L Vess DESKTOP SUPPORT TECHNICIAN [facility] 07-29-2016 09:04-0400 Heart rate 70 /min Neilee L Vess DESKTOP SUPPORT TECHNICIAN [facility] [employer] 07-29-2016 09:04-0400 Systolic blood pressure 154 mm[Hg] Neilee L Vess DESKTOP SUPPORT TECHNICIAN [facility] 12-22-2015 09:53-0500 Body height 157.48 cm Serena Zack DESKTOP SUPPORT TECHNICIAN Work Phone: [facility] 12-22-2015 09:53-0500 Body mass index (BMI) [Ratio] 23.59 kg/m2 Serena Zack DESKTOP SUPPORT TECHNICIAN Work Phone: [facility] 12-22-2015 09:53-0500 Body surface area Derived from formula 1.59 m2 Serena Zack DESKTOP SUPPORT TECHNICIAN Work Phone: [facility] 12-22-2015 09:53-0500 Body weight 58.51 kg Serena Zack DESKTOP SUPPORT TECHNICIAN Work Phone: [employer] 12-22-2015 09:53-0500 Diastolic blood pressure 92 mm[Hg] Serena Zack DESKTOP SUPPORT TECHNICIAN Work Phone: [facility] 12-22-2015 09:53-0500 Heart rate 81 /min Serena Zack DESKTOP SUPPORT TECHNICIAN Work Phone: [facility] 12-22-2015 09:53-0500 Systolic blood pressure 138 mm[Hg] Serena Zack DESKTOP SUPPORT TECHNICIAN Work Phone: [facility] 05-19-2015 10:42-0400 Body height 157.48 cm Serena Zack DESKTOP SUPPORT TECHNICIAN Work Phone: [employer] 05-19-2015 10:42-0400 Body mass index (BMI) [Ratio] 25.61 kg/m2 Serena Zack DESKTOP SUPPORT TECHNICIAN Work Phone: [facility] 05-19-2015 10:42-0400 Body surface area Derived from formula 1.64 m2 Serena Zack DESKTOP SUPPORT TECHNICIAN Work Phone: [facility] 05-19-2015 10:42-0400 Body weight 63.5 kg Serena Zack DESKTOP SUPPORT TECHNICIAN Work Phone: [facility] 05-19-2015 10:42-0400 Diastolic blood pressure 91 mm[Hg] Serena Zack DESKTOP SUPPORT TECHNICIAN Work Phone: [facility] [employer] 05-19-2015 10:42-0400 Heart rate 71 /min Serena Zack DESKTOP SUPPORT TECHNICIAN Work Phone: [facility] 05-19-2015 10:42-0400 Systolic blood pressure 180 mm[Hg] Serena Zack DESKTOP SUPPORT TECHNICIAN Work Phone: [facility] [employer] 11-28-2014 10:00-0400 Body height 157.48 cm Neilee L Vess DESKTOP SUPPORT TECHNICIAN [facility] 11-28-2014 10:00-0400 Body mass index (BMI) [Ratio] 24.69 kg/m2 Neilee L Vess DESKTOP SUPPORT TECHNICIAN [employer] 11-28-2014 10:00-0400 Body surface area Derived from formula 1.62 m2 Neilee L Vess DESKTOP SUPPORT TECHNICIAN [facility] [employer] 11-28-2014 10:00-0400 Body weight 61.24 kg Neilee L Vess DESKTOP SUPPORT TECHNICIAN [facility] [facility] 11-28-2014 10:00-0400 Diastolic blood pressure 78 mm[Hg] Neilee L Vess DESKTOP SUPPORT TECHNICIAN [facility] 11-28-2014 10:00-0400 Heart rate 69 /min Neilee L Vess DESKTOP SUPPORT TECHNICIAN [employer] 11-28-2014 10:00-0400 Systolic blood pressure 152 mm[Hg] Neilee L Vess DESKTOP SUPPORT TECHNICIAN [employer] 05-29-2014 16:15-0400 Body height 157.48 cm Serena Zack DESKTOP SUPPORT TECHNICIAN Work Phone: [facility] 05-29-2014 16:15-0400 Body mass index (BMI) [Ratio] 26.52 kg/m2 Serena Zack DESKTOP SUPPORT TECHNICIAN Work Phone: [facility] [employer] 05-29-2014 16:15-0400 Body surface area Derived from formula 1.67 m2 Serena Zack DESKTOP SUPPORT TECHNICIAN Work Phone: [facility] [employer] 05-29-2014 16:15-0400 Body weight 65.77 kg Serena Zack DESKTOP SUPPORT TECHNICIAN Work Phone: [facility] [employer] 05-29-2014 16:15-0400 Diastolic blood pressure 97 mm[Hg] Serena Zack DESKTOP SUPPORT TECHNICIAN Work Phone: [facility] [employer] 05-29-2014 16:15-0400 Heart rate 72 /min Serena Zack DESKTOP SUPPORT TECHNICIAN Work Phone: [facility] 05-29-2014 16:15-0400 Systolic blood pressure 192 mm[Hg] Serena Zack DESKTOP SUPPORT TECHNICIAN Work Phone: [facility] [employer] [employer] 11-22-2013 09:50-0400 Body height 157.48 cm Neilee L Vess DESKTOP SUPPORT TECHNICIAN [employer] 11-22-2013 09:50-0400 Body mass index (BMI) [Ratio] 25.97 kg/m2 Neilee L Vess DESKTOP SUPPORT TECHNICIAN [employer] 11-22-2013 09:50-0400 Body surface area Derived from formula 1.65 m2 Neilee L Vess DESKTOP SUPPORT TECHNICIAN [employer] [employer] 11-22-2013 09:50-0400 Body weight 64.41 kg Neilee L Vess DESKTOP SUPPORT TECHNICIAN [facility] [employer] [employer] 11-22-2013 09:50-0400 Diastolic blood pressure 82 mm[Hg] Neilee L Vess DESKTOP SUPPORT TECHNICIAN [employer] 11-22-2013 09:50-0400 Heart rate 75 /min Neilee L Vess DESKTOP SUPPORT TECHNICIAN [employer] 11-22-2013 09:50-0400 Systolic blood pressure 145 mm[Hg] Neilee L Vess DESKTOP SUPPORT TECHNICIAN [facility] 11-02-2012 13:58-0400 Body height 157.48 cm Neilee L Vess DESKTOP SUPPORT TECHNICIAN [facility] [employer] 11-02-2012 13:58-0400 Body mass index (BMI) [Ratio] 24.69 kg/m2 Neilee L Vess DESKTOP SUPPORT TECHNICIAN [employer] 11-02-2012 13:58-0400 Body surface area Derived from formula 1.62 m2 Neilee L Vess DESKTOP SUPPORT TECHNICIAN [facility] 11-02-2012 13:58-0400 Body weight 61.24 kg Neilee L Vess DESKTOP SUPPORT TECHNICIAN [facility] [employer] 11-02-2012 13:58-0400 Diastolic blood pressure 83 mm[Hg] Neilee L Vess DESKTOP SUPPORT TECHNICIAN [facility] [employer] 11-02-2012 13:58-0400 Heart rate 65 /min Neilee L Vess DESKTOP SUPPORT TECHNICIAN [facility] 11-02-2012 13:58-0400 Systolic blood pressure 169 mm[Hg] Neilee L Vess DESKTOP SUPPORT TECHNICIAN [facility] 09-09-2011 09:57-0400 Body height 157.48 cm Neilee L Vess DESKTOP SUPPORT TECHNICIAN [facility] [employer] 09-09-2011 09:57-0400 Body mass index (BMI) [Ratio] 23.41 kg/m2 Neilee L Vess DESKTOP SUPPORT TECHNICIAN [facility] 09-09-2011 09:57-0400 Body surface area Derived from formula 1.58 m2 Neilee L Vess DESKTOP SUPPORT TECHNICIAN [facility] 09-09-2011 09:57-0400 Body weight 58.06 kg Neilee L Vess DESKTOP SUPPORT TECHNICIAN [facility] 09-09-2011 09:57-0400 Diastolic blood pressure 79 mm[Hg] Neilee L Vess DESKTOP SUPPORT TECHNICIAN [facility] [employer] 09-09-2011 09:57-0400 Heart rate 61 /min Nejustine L Vess DESKTOP SUPPORT TECHNICIAN [employer] [facility] 09-09-2011 09:57-0400 Systolic blood pressure 145 mm[Hg] Neilee L Vess DESKTOP SUPPORT TECHNICIAN [facility] [facility] 08-26-2010 10:21-0400 Body height 160.02 cm Serena Zack DESKTOP SUPPORT TECHNICIAN Work Phone: [facility] [employer] 08-26-2010 10:21-0400 Body mass index (BMI) [Ratio] 22.32 kg/m2 Serena Zack DESKTOP SUPPORT TECHNICIAN Work Phone: [facility] [employer] 08-26-2010 10:21-0400 Body surface area Derived from formula 1.59 m2 Serena Zack DESKTOP SUPPORT TECHNICIAN Work Phone: [facility] [employer] 08-26-2010 10:21-0400 Body weight 57.15 kg Serena Zack DESKTOP SUPPORT TECHNICIAN Work Phone: [facility] [employer] 08-26-2010 10:21-0400 Diastolic blood pressure 81 mm[Hg] Serena Zack DESKTOP SUPPORT TECHNICIAN Work Phone: [facility] [employer] 08-26-2010 10:21-0400 Heart rate 58 /min Serena Zack DESKTOP SUPPORT TECHNICIAN Work Phone: [facility] [employer] 08-26-2010 10:21-0400 Systolic blood pressure 138 mm[Hg] Serena Zack DESKTOP SUPPORT TECHNICIAN Work Phone: [facility] [employer] Encounters Encounter Date Encounter Type Care Provider Facility Start: 07-27-2024 End: 07-27-[address] Jose Matthews MD -[facility] Work Phone: Start: 07-27-2024 End: 07-27-[address] Joel Muniz MD Work Phone: [facility] Work Phone: Start: 07-27-[address] Rahul isaac MD -[facility] Work Phone: Start: 07-13-2024 End: 07-13-[address] Jose Matthews MD -[facility] Work Phone: Start: 07-13-2024 End: 07-13-[address] Joel Muniz MD Work Phone: [facility] Work Phone: Start: 07-06-2024 End: 07-06-[address] Jose Matthews MD -[facility] Work Phone: Start: 07-06-2024 End: 07-06-[address] Joel Muniz MD Work Phone: [facility] Work Phone: Start: 07-03-2024 End: 07-03-2024 Patient encounter procedure Barbara PEREIRA -[facility] Work Phone: Start: 07-03-2024 End: 07-03-[address] Joel Muniz MD Work Phone: [facility] Work Phone: Start: 07-03-2024 End: 07-03-[address] Rahul Shetty MD -[facility] Work Phone: Start: 07-03-[address] Rahul [facility] Work Phone: Start: 07-03-2024 End: 07-03-2024 ambulatory Yahaira S Joiff Facility:[facility] Start: 06-29-2024 ambulatory Yahaira S Jolliff Facility: [facility] Start: 06-29-[address] Rahul [facility] Work Phone: Start: 06-28-2024 End: 06-28-[address] Jose Matthews MD -[facility] Work Phone: Start: 06-28-2024 End: 06-28-[address] Joel Muniz MD Work Phone: [facility] Work Phone: Start: 06-28-2024 End: 06-28-[address] Rahul Shetty MD -[facility] Work Phone: Start: 06-28-[address] Rahul isaac MD -[facility] Work Phone: Start: 06-27-2024 End: 06-28-[address] Joel Muniz MD Work Phone: [facility] Work Phone: Start: 06-27-2024 End: 06-27-[address] Rahul Shetty MD -[facility] Work Phone: Start: 06-27-[address] Rahul isaac MD -[facility] Work Phone: Start: 06-27-2024 End: 06-27-2024 ambulatory Yahaira Winn Facility:[facility] Start: 06-25-2024 End: 06-26-2024 Emergency department patient visit Dr. Joel Muniz MD Work Phone: -Emergency Department Work Phone: Start: 03-07-2024 ambulatory Chico Vaccarilogna Facili ty:[facility] Start: 02-06-2024 End: 02-06-2024 [facility] Start: 12-10-2023 ambulatory Chico Vaccarilogan Facili ty:[facility] Start: 2023 End: 2023 [facility] Collier MD Work Phone[facility] Start: 04-07-2023 End: 04-07-2023 ambulatory [facility] Work Phone: Start: 04-07-2023 End: 04-07-2023 Patient encounter procedure [facility]-Cat [facility], [facility] Work Phone: Start: 03-15-2023 End: 03-15-2023 Chico Collier MD Work Phone: [facility] Start: 03-15-2023 Chico mercado MD Work Phone: [employer] [facility] Start: 03-09-2023 End: 03-09-2023 Chico Collier MD Work Phone: [employer] Start: 02-15-2023 End: 03-03-2023 Evaluation and management of inpatient STAN GARCIA DO Facility:R Start: 02-15-2023 End: 03-03-2023 Evaluation and management of inpatient STAN GARCIA DO [facility] Start: 02-15-[address] CHICO COLLIER MD Facility:A Start: 02-08-2023 End: 02-15-2023 Evaluation and management of inpatient DR CHICO COLLIER MD Facility:A Start: 02-08-2023 End: 02-15-2023 Evaluation and management of inpatient DR KATINA VALDIVIA MD [facility] Start: 02-08-2023 End: 02-08-2023 Emergency department patient visit GREY CONNOR [facility] Start: 01-27-2023 End: 01-27-2023 Chico Collier MD Work Phone: [facility] Start: 01-26-2023 End: 01-26-2023 ambulatory CHICO COLLIER [facility] Start: 01-26-2023 End: 01-26-2023 Office outpatient visit 15 minutes Chico Collier MD Work Phone: [facility] Start: 01-12-2023 End: 01-14-2023 Patient encounter status Chico Collier MD Work Phone: [employer] Start: 01-12-2023 End: 01-14-2023 Chico Collier MD Work Phone: [facility] Start: 12-27-2022 End: 12-27-2022 Chico Collier MD Work Phone: [facility] Start: 12-08-2022 End: 12-14-2022 Chico Collier MD Work Phone: [facility] Start: 06-14-2022 End: 06-14-2022 Chico Collier MD Work Phone: [employer] Start: 06-10-2022 End: 06-11-2022 Emergency department patient visit [facility] Start: 05-21-2022 End: 05-21-2022 Chico Collier MD Work Phone: [facility] Start: 05-19-2022 End: 05-19-2022 Chico Collier MD Work Phone: [facility] Start: 05-19-2022 End: 05-19-2022 ambulatory [facility] Start: 05-05-2022 End: 05-06-2022 Chico Collier MD Work Phone: [employer] Start: 04-30-2022 End: 04-30-2022 Chico Collier MD Work Phone: [facility] Start: 04-24-2022 End: 04-24-2022 Emergency department patient visit [facility] Start: 01-28-2022 End: 01-28-2022 Chico Collier MD Work Phone: [facility] Start: 01-06-2022 End: 01-06-2022 Patient encounter status Chico Collier MD Work Phone: [employer]; [employer]. Start: 01-06-2022 End: 01-06-2022 Chico Collier MD Work Phone: [facility] Start: 12-28-2021 End: 12-28-2021 Chico Collier MD Work Phone: [facility] Start: 12-24-2021 End: 12-24-2021 Chico Collier MD Work Phone: [facility] Start: 11-18-2021 End: 11-18-2021 Chico Collier MD Work Phone: [facility] Start: 11-16-2021 End: 11-18-2021 Chico Collier MD Work Phone: [facility] Start: 07-08-2021 End: 07-08-2021 Chico Collier MD Work Phone: [facility] Start: 01-05-2021 End: 01-05-2021 Patient encounter status Chico Collier MD Work Phone: [employer]; [employer]. Start: 01-05-2021 End: 01-05-2021 Chico Collier MD Work Phone: [facility] Start: 08-06-2020 End: 08-06-2020 Chico Collier MD Work Phone: [facility] Start: 07-28-2020 End: 07-28-2020 Chico Collier MD Work Phone: [facility] Start: 07-28-2020 End: 07-28-2020 Chico Collier MD Work Phone: [facility] Start: 06-30-2020 End: 06-30-2020 Chico Collier MD Work Phone: [facility] Start: 12-31-2019 End: 12-31-2019 Patient encounter status Serena Dixon LPN Work Phone: [employer]; [employer]. Start: 12-31-2019 End: 12-31-2019 Chico Collier MD Work Phone: [employer] Start: 12-24-2019 End: 12-24-2019 Chico Collier MD Work Phone: [employer] Start: 11-27-2019 End: 11-28-2019 Chico Collier MD Work Phone: [facility] Start: 10-01-2019 End: 10-01-2019 Preprocedural examination done Chico Collier MD Work Phone: [employer]; [facility] Start: 10-01-2019 End: 10-01-2019 Chico Collier MD Work Phone: [employer] Start: 06-28-2019 End: 06-28-2019 Office outpatient visit 25 minutes Chico Collier MD Work Phone: [employer] Start: 06-28-2019 End: 06-28-2019 Chico Collier MD Work Phone: [employer] Start: 12-28-2018 End: 12-28-2018 Patient encounter status Chico Collier MD Work Phone: [employer]; [facility] Start: 12-28-2018 End: 12-28-2018 Chico Collier MD Work Phone: [employer] Start: 12-22-2018 End: 12-22-2018 Chico Collier MD Work Phone: [employer] Start: 11-23-2018 End: 11-24-2018 Chico Collier MD Work Phone: [employer]. Start: 12-23-2017 End: 12-23-2017 Patient encounter status Chico Collier MD Work Phone: [employer] Start: 12-23-2017 End: 12-23-2017 Chico Collier MD Work Phone: [employer]. Start: 12-14-2017 End: 12-14-2017 Chico Collier MD Work Phone: [employer]. Start: 11-17-2017 End: 11-17-2017 Chico Collier MD Work Phone: [employer] Start: 09-19-2017 End: 09-19-2017 Chico Collier MD Work Phone: [employer]. Start: 09-05-2017 End: 09-05-2017 Chico Collier MD Work Phone: [employer] Start: 08-29-2017 End: 08-29-2017 Chico Collier MD Work Phone: [employer] Start: 06-24-2017 End: 06-24-2017 Chico Collier MD Work Phone: [employer] Start: 06-09-2017 End: 06-09-2017 Chico Collier MD Work Phone: [employer]. Start: 03-25-2017 End: 03-25-2017 Chico Collier MD Work Phone: [employer]. Start: 03-24-2017 End: 03-24-2017 Chico Collier MD Work Phone: [employer] Start: 12-23-2016 End: 12-23-2016 Chico Collier MD Work Phone: [employer] Start: 12-22-2016 End: 12-22-2016 Patient encounter status Chico Collier MD Work Phone: [employer] Start: 12-22-2016 End: 12-22-2016 Chcio Collier MD Work Phone: [employer]. Start: 12-13-2016 End: 12-13-2016 Chico Collier MD Work Phone: [employer]. Start: 11-05-2016 End: 11-08-2016 Chico Collier MD Work Phone: [employer]. Start: 08-06-2016 End: 08-06-2016 Chico Collier MD Work Phone: [employer]. Start: 07-29-2016 End: 07-29-2016 Chico Collier MD Work Phone: [employer] Start: 12-22-2015 End: 12-22-2015 Patient encounter status Chico Collier MD Work Phone: [employer] Start: 12-22-2015 End: 12-22-2015 Chico Collier MD Work Phone: [employer]. Start: 12-03-2015 End: 12-03-2015 Chico Collier MD Work Phone: [employer]. Start: 11-03-2015 End: 11-03-2015 Chico Collier MD Work Phone: [employer]. Start: 11-03-2015 End: 11-03-2015 Chico Collier MD Work Phone: [employer]. Start: 06-11-2015 End: 06-11-2015 Chico Collier MD Work Phone: [facility] Start: 06-06-2015 End: 06-06-2015 Chico Collier MD Work Phone: [employer] Start: 05-28-2015 End: 05-28-2015 Chico Collier MD Work Phone: [employer] Start: 05-19-2015 End: 05-19-2015 Chico Collier MD Work Phone: [employer] Start: 11-28-2014 End: 11-28-2014 Patient encounter status Chico Collier MD Work Phone: [employer] Start: 11-28-2014 End: 11-28-2014 Chico Collier MD Work Phone: [facility] Start: 11-27-2014 End: 11-27-2014 Chico Collier MD Work Phone: [employer] Start: 11-21-2014 End: 11-21-2014 Chico Collier MD Work Phone: [employer] Start: 10-30-2014 End: 10-31-2014 Chico Collier MD Work Phone: [employer] Start: 10-30-2014 End: 10-30-2014 Chico Collier MD Work Phone: [employer] Start: 05-29-2014 End: 06-20-2014 Chico Collier MD Work Phone: [employer] Start: 11-22-2013 End: 11-22-2013 Patient encounter status Chico Collier MD Work Phone: [employer]; [employer]. Start: 11-22-2013 End: 11-22-2013 Chico Collier MD Work Phone: [employer]. Start: 11-14-2013 End: 11-14-2013 Chico Collier MD Work Phone: [employer] Start: 10-23-2013 End: 10-24-2013 Chico Collier MD Work Phone: [employer] Start: 11-02-2012 End: 11-02-2012 Routine gynecological examination Chico Collier MD Work Phone: [employer]; [employer]. Start: 11-02-2012 End: 11-02-2012 Chico Collier MD Work Phone: [employer]. Start: 10-23-2012 End: 10-23-2012 Chico Collier MD Work Phone: [employer]. Start: 10-05-2012 End: 10-05-2012 Chico Collier MD Work Phone: [employer]. Start: 03-17-2012 End: 03-17-2012 Chico Collier MD Work Phone: [employer] Start: 03-13-2012 End: 03-13-2012 Chico Collier MD Work Phone: [employer] Start: 10-14-2011 End: 10-14-2011 Chico Collier MD Work Phone: [employer] Start: 10-13-2011 End: 10-13-2011 Chico Collier MD Work Phone: [employer]. Start: 09-09-2011 End: 09-09-2011 Chico Collier MD Work Phone: [employer] Start: 08-06-2011 End: 08-06-2011 Chico Collier MD Work Phone: [employer]. Start: 03-05-2011 End: 03-05-2011 Chico Collier MD Work Phone: [employer] Start: 02-26-2011 End: 02-26-2011 Chico Collier MD Work Phone: [employer] Start: 02-22-2011 End: 02-22-2011 Chico Collier MD Work Phone: [employer] Start: 08-26-2010 End: 08-26-2010 Routine gynecological examination Chico Collier MD [facility]: [facility] Start: 08-26-2010 End: 08-26-2010 Chico Collier MD Work Phone: [facility] Start: 07-09-2010 End: 07-09-2010 Routine general medical examination at a health care facility Chico Collier MD Work Phone: [facility] [employer]. Start: 07-09-2010 End: 07-09-2010 Chico Collier MD Work Phone: [facility] Patient encounter status Serena Dixon ALEX Work Phone: [facility] [employer] Patient encounter status Serena Dixon DESKTOP SUPPORT TECHNICIAN Work Phone: [facility] [employer]. Procedures Date Procedure Procedure Detail Performing Clinician [...] Comment: URIN ALYSIS Performed By: #### [id number] ####[facility],[address] [place] [id number] Start: 01-26-2023 End: 01-26-2023 Radex hand minimum [...] 12-27-2022 End: 12-27-2022 Lab findings surveillance Serena Lopez PN Work Phone: Start: 12-27-2022 End: 12-27-2022 Lipid [...] Work Phone: Start: 02-07-2019 End: 02-07-2019 Serena Zack ALEX Work Phone: Start: 12-28-2018 End: 12-28-2018 [...] Start: 01-04-2017 End: 01-04-2017 Bone density scan [facility] Work Phone: Start: 12-22-2016 End: 12-22-2016 Current [...] Screening for malignant neoplasm of large intestine Serenaakshat Dixon ALEX Work Phone: Start: 12-22-2016 End: 01-13-2017 Dxa [...] examination of cervical Papanicolaou smear Serena Dixon LPN Work Phone: Start: 02-08-1996 End: 02-08-1996 Screening colonoscopy Tavia Cookith DESKTOP SUPPORT TECHNICIAN Cholecystectomy Serena Dixon DESKTOP SUPPORT TECHNICIAN Work Phone: H/O: hysterectomy Obi Moran on DESKTOP SUPPORT TECHNICIAN H/O: hysterectomy Chico leonard MD Work Phone: H/O: hysterectomy Chico leonard MD Work Phone: H/O: hysterectomy Chico leonard MD Work Phone: H/O: hysterectomy Chico leonard MD Work Phone: H/O: hysterectomy Serena Tysonac hy DESKTOP SUPPORT TECHNICIAN Work Phone: History of cataract extraction Obi Moranon DESKTOP SUPPORT TECHNICIAN History of cataract extraction Chico Collier MD Work Phone: History of cataract extraction Serena Dixon DESKTOP SUPPORT TECHNICIAN Work Phone: History of cholecystectomy Sofia Collier MD Work Phone: Total hysterectomy Serena Quinteros chi DESKTOP SUPPORT TECHNICIAN Work Phone: Vaccine refused by patient A gretchendeloris Moranon DESKTOP SUPPORT TECHNICIAN Vaccine refused by patient Sofia Collier MD Work Phone: Vaccine refused by patient Sofia Collier MD Work Phone: Vaccine refused by patient Sofia Collier MD Work Phone: Vaccine refused by patient Sofia Collier MD Work Phone: Vaccine refused by patient M karen Dixon DESKTOP SUPPORT TECHNICIAN Work Phone: Plan of Treatment Date Care Activity Detail Author Start: 06-26-[address] [facility] Start: 06-25-2024 Simple rpr scalp/neck/ax/genit/trunk 7.6-12.5cm RPR S/N/AX/GEN/TRK7.6-12. 5CM [facility] Start: 2023 Blood count complete auto&auto difrntl wbc [facility]. Start: 2023 Comprehensive metabo lic panel [facility].; [employer] Start: 2023 [facility] Start: 2023 Screening mammograph y bi 2-view breast inc cad [employer] Start: 01-26-2023 Radex hand minimum 3 views [employer] Start: 12-08-2022 Screening mammograph y bi 2-view breast inc cad [facility] [employer] Start: 12-24-2021 Screening mammograph y bi 2-view breast inc cad [facility]. CBC W Auto Different ial panel - Blood [facility] Patient Education ED Laceration, All Closures [facility] Work Phone: Patient referral [facility] Work Phone: Immunizations Immunization Date Immunization Notes Care Provider [facility] 06-25-2024 tetanus toxoid, reduced diphtheria toxoid, and acellular pertussis vaccine, adsorbed Dr. Joel Muniz MD Work Phone: [facility] 04-10-2020 Chico thakkar MD Work Phone: [employer]. 03-13-2020 Chico thakkar MD Work Phone: [facility] [employer]. 11-22-2013 Chico thakkar MD Work Phone: [facility] [employer]. 11-22-2013 influenza, seasonal, injectable Chico Collier MD Work Phone: [facility] 06-06-2006 tetanus toxoid, reduced diphtheria toxoid, and acellular pertussis vaccine, adsorbed Chico Collier MD Work Phone: [facility] NEGATED: Highlighted row has not occurred! influenza, injectable, quadrivalent, contains preservative Chico Collier MD Work Phone: [facility]; [facility] NEGATED: Highlighted row has not occurred! pneumococcal conjugate vaccine, 13 valent Chico Collier MD Work Phone: [facility]. NEGATED: Highlighted row has not occurred! pneumococcal polysaccharide vaccine, 23 valent Chico Collier MD Work Phone: [facility]. NEGATED: Highlighted row has not occurred! zoster vaccine, live Chico Collier MD Work Phone: [facility] Payers Date Payer Category Payer Self-pay 2022 Medicare [id number] 2022 Unknown [id number] 1945 Unknown [id number] 2.16.8 [id number] 1945 Unknown [id number] 2.16.8 [id number] 1945 Unknown [id number] 2.16.84 [id number] 1945 Unknown [id number] 2.16.84 [id number] 1945 Unknown [id number] 2.16.84 [id number] 1945 Unknown [id number] 2.16.8 [id number] 1945 Unknown [id number] 2.16.8 [id number] 1945 Unknown [id number] 2.16.8 [id number] Unknown Unknown [id number] 2.16.8 [id number] Unknown [id number] 2.16.8 [id number] Unknown [id number] 2.16.8 [id number] Unknown [id number] 2.16.8 [id number] Unknown [id number] 2.16.8 [id number] Unknown [id number] 2.16.8 [id number] Unknown [id number] 2.16.8 [id number] Unknown [id number] 2.16.8 [id number] Unknown [id number] 2.16.8 [id number] Unknown [id number] 2.16.8 [id number] Unknown [id number] 2.16.8 [id number] Unknown [id number] 2.16.8 [id number] Unknown [id number] 2.16.8 [id number] Social History Date Type Detail Facility [facility] [employer]. Retired. [facility] [employer] [facility].; [facility]. Tobacco smoking status No Smokin g Status Entered [facility] Start: 1945 Sex Assigned At Female A [facility] Start: 06-25-2024 End: 07-03-2024 Tobacco smoking status WYIS Never smoked tobacco (finding) [facility] Functional Status Date Assessment Result Facility 03-03-2023 Functional Status Room check performed [facility] 03-02-2023 Functional Status [facility] 03-02-2023 Functional Status [facility] 03-02-2023 Functional Status [facility] 03-02-2023 Functional Status 12 [facility] 03-01-2023 Functional Status [facility] 03-01-2023 Functional Status [facility] 03-01-2023 Functional Status [facility] 02-28-2023 Functional Status [facility] 02-28-2023 Functional Status [facility] 02-28-2023 Functional Status [facility] 02-28-2023 Functional Status [facility] 02-27-2023 Functional Status [facility] 02-25-2023 Functional Status Antiembolism S tocking Off/Removed bilateral knee high [facility] 02-24-2023 Functional Status [facility] 02-24-2023 Functional Status 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 - 02/09/23 [facility] 02-23-2023 Functional Status [facility] 02-22-2023 Functional Status Evening Snack Percent 1 00 [facility] 02-22-2023 Functional Status Hospital bed [facility] 02-21-2023 Functional Status Arabella [facility] 02-20-2023 Functional Status Orthotics, Device Worn Per Schedule Yes [facility] 02-19-2023 Functional Status Arabella [facility] 02-18-2023 Functional Status Arabella [facility] 02-18-2023 Functional Status Arabella [facility] 02-17-2023 Functional Status Independent [facility] [facility] 02-17-2023 Functional Status [facility] [place] 02-16-2023 Functional Status Personal ADL Arab[facility] 02-15-2023 Functional Status Sensory Deficits None A [facility] [place] 02-15-2023 Functional Status Up to Chair Returned to bed [facility] 02-15-2023 Functional Status Room check performed [facility] 02-15-2023 Functional Status Supervised 1 [facility] Functional Status Arabella [facility] 02-15-2023 Functional Status Valid [place] N/A l [facility] 02-15-2023 Functional Status Arabella [facility] 02-14-2023 Functional Status bilateral knee high sabas lied/on [facility] 02-14-2023 Functional Status Arabella [facility] 02-14-2023 Functional Status Done Arab[facility] 02-14-2023 Functional Status [facility] 02-14-2023 Functional Status 7pm-7am [facility]-14[facility] Functional Status Arab[facility] 02-13-2023 Functional Status Arab[facility] 02-12-2023 Functional Status Beds/Devices Hospital b ed [facility] 02-12-2023 Functional Status Arabella [facility] 02-12-2023 Functional Status Arabella [facility] 02-11-2023 Functional Status Arabella [facility] 02-11-2023 Functional Status Arabella [facility] 02-10-2023 Functional Status Arabella [facility] 02-10-2023 Functional Status [facility] 02-10-2023 Functional Status 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 - 02/09/23 Daughter not present at time of OT evaluation but patient was better able to provide history this date and most 6 [facility] 02-10-2023 Functional Status Mod A [facility] 02-09-2023 Functional Status Sensory Deficits None [facility] 02-09-2023 Functional Status Living Situation Home w [facility] 02-09-2023 [facility] Status Date Assessment Result Facility 03-03-2023 Mental Status Oriented x 4 [facility] 03-02-2023 Mental Status [facility] 03-02-2023 Mental Status [facility] 02-26-2023 Mental Status [facility] 02-15-2023 Mental Status Oriented x 4 [facility] 02-15-2023 Mental Status [facility] 02-14-2023 Mental Status [facility] 02-14-2023 Mental Status [facility] 02-14-2023 Mental Status [facility] Clinical Notes 02-08-2023 to 07-03-2024 Note Date & Type Note Facility 07-03-2024 Progress note [facility] 06-28-2024 Evaluation note Diagnosis Onset Date Resolution Laceration of forearm, left acute June 28, 2024 2 :25pm Anemia acute July 03, 2024 9:56am Occult blood positive stool acute July 03, 2024 9 :56am [facility] Work Phone: 1(311) 636-809305-22-2025 Evaluation note* Diagnosis Onset Date Resolution Status Admit Date Laceration of forearm, left inactive June 28, 2024 2:25pm Anemia acute July 03, 2024 9:56am Occult blood positive stool acute July 03, 2024 9:56am [facility] Work Phone: 1(707) 390-964105-22-2025 Evaluation note* Diagnosis Onset Date Resolution Status Admit Date Laceration of forearm, left inactive June 28, 2024 2:25pm Anemia acute July 03, 2024 9:56am Occult blood positive stool acute July 03, 2024 9:56am Laceration of forearm, left inactive July 06, 2024 2:14pm [facility] Work Phone: 1(572) 201-100405-22-2025 Evaluation note* Diagnosis Onset Date Resolution Status Admit Date Laceration of forearm, left inactive June 28, 2024 2:25pm Anemia acute July 03, 2024 9:56am Occult blood positive stool acute July 03, 2024 9:56am Laceration of forearm, left inactive July 06, 2024 2:14pm Laceration of forearm, left inactive July 13, 2024 1:56pm [facility] Work Phone: [phone]) 390-257405-19-2025 Radiology Diagnostic study note Imaging Services [address] [place] [address] [place] [address] Forearm 2 Views MR#: [id number] Acct: [id number] Name: ROSARIO MCNALLY Rep #: [id number] : 1945 F 78 From: Jess Rondon MD PCP: Dr. Yahaira Winn MD Status: REG ER Study:Forearm 2 Views Date of Exam: 06/07 11/01 Exam# [id number] Ordering Dr: Sofia Muniz MD PROCEDURE: FOREARM [...] Mild osteopenia slightly limits thisevaluation. Reading Location: [facility] CC: Dr. Yahaira Winn MD; Dr. Joel Muniz MD ~ Earth Mover: Signed [facility]01-25-2024 Nurse Progress note Nursing GG Entered On: 03/03/2023 9:32 EST Performed On: 03/03/2023 9:32 EST by Myrna West LPN Nursing GG's OT GG Grid Eating : Independent Myrna West LPN - 03/03/2023 9:32 EST Digitally Signed by Myrna West LPN on 03/03/2023 09:32 AM [facility]ella [id number] Note Discharge Instructions Thank you for allowing [facility] to assist you with your healthcare needs. The following is importantdischarge information regarding your hospital visit. Your Care Team EKATERINA SALAZAR, CHICO Hope Your Diagnosis Lung nodule Orthostatic hypotension Parkinson's disease Right wrist fracture Subarachnoid hemorrhage What to do next Follow Up Appointments Follow Up with CHICO ELIZONDO MD, Orthopedic When 03/25/2023 02:00 PM EST Why: Orthopedic follow up - Where: [facility] [address] [place] [phone] Follow Up with CHELSEA MARIN PA-C When 03/17/2023 12:10 PM EST Why: Neurology follow up - Where: [address] [place] [phone] Follow Up with EKATERINA SALAZAR, CHICO Hope When 03/09/2023 01:40 PM EST Why: Take Discharge Instructions to Dr Visit - Where: [address] [place] [address] [phone] Follow Up with URIAH BOCANEGRA MD, Neurosurgery When Only if needed Why: Neurosurgeon - Where: [address] [facility] [address] [facility] [address]- [phone] The Following Activity and Diet Have Been [...] Care - Ordered -- Level of Care [facility], 03/03/23 8:47:42 EST Transfer of Care Code Status - Ordered -- Full Code, Constant Order Transfer of Care Orders Electronically Signed By - Ordered -- 03/03/23 10:00:00 EST, TRACI LANCE APRN-REHABILITATION THERAPY TECHNICIAN Transfer of Care Prognosis - Ordered -- [...] by mouth Once a day Pickup at [facility] 1723 Unchanged carbidopa-levodopa (carbidopa-levodopa 25 mg-100 mg oral tablet) 1 tab(s) by mouth Four (4) times a day Pickup at [facility] 1724 Unchanged escitalopram (escitalopram 10 mg oral tablet) 1 tab(s) by mouth Once a day Pickup at [facility] 1724 Unchanged midodrine (midodrine 5 mg oral tablet) 1 tab(s) by mouth Three (3) times a day Pickup at [facility] 1724 Pharmacy Information [facility] 1724: [address] [place], [place] [id number] [phone] What How Much When Comments Stop Taking [...] Follow these instructions at home: Medicines Take hbln-jay-jiukdcg and prescription medicines only as told by [...] 05/21/2013 Document Revised: 01/06/2018 Document Reviewed: 11/03/2017 [employer] Patient Education 2020 [employer]. Additional Information VACCINATE! IT SAVES LIVES! Members of the community who have not yet received the COVID-19 vaccine and would like to receive it can visit one of [facility] vaccine clinics. There are many vaccine clinic locations within the [facility]. For locations and available times, please visit [email or web address].[place].gov/. It is important to note that some COVID mobile vaccine clinics are held outdoors and may be canceled in rainy or stormy conditions. To learn more about pediatric vaccinations (ages 5-11), we invite you to visit the [facility] webpage. https://www.[facility].org/pages/6599-Upjrp-Kvlfrgocoup-Qebovsruhu-Yyype-Xpi stions.htmlTo learn more about the COVID-19 vaccine, we invite you to visit the CDC website for a list of frequently asked questions.https://www.cdc.gov/coronavirus/2019-ncov/vaccines/faq.html [facility] Patient Portal Access Instructions: Stay connected with your healthcare team and access your personal medical information anytime with the [facility] Patient Portal. Please follow the directions below to create your [facility] account: 1.Access the email account you provided upon registration to the hospital/physician office.2.Look for an invitation email from [facility].3.Open the email and access the invitation link: AcceptInvitation to [facility].4.Fill in the required lujan to create your account. To access your account, visit [email or web address]. Click the blue button labeled Access Patient [...] who you will allowto register on the [facility] Patient Portal for access to your information. You can also access the [facility] Patient Portal on the [facility] sabas. Simply click on Patient Portal and then log into your account. If you would like to receive a full copy of your medical records, please contact the [facility] Medical Records Department by calling [phone], Tuesday through Tuesday between 8 a.m. and [...] Call your local pharmacy or go to [email or web address] to find one close to you.3.Make use of household items: Use cat litter or old coffee grounds to dispose medications if other options arenot available. Mix your drugs with these household products, seal them in an airtight container andthrow it into the garbage. Call [facility]: [phone] to be sure your drugs can be [...] COPY. Signatures Patient Education Materials Subarachnoid Hemorrhage, Ddtz-uz-Lrbx Medication Leaflets My discharge plan and instructions have been reviewed and explained to me and I,ROSARIO MCNALLY understand my current condition and have read and understand these discharge instructions. I have received a written copy of the plan/instructions. If I have questions, I am aware that I should contact my doctor. Patient/Health Record Technician Signature: Date/Time: Relationship to Patient: Witness Name/Signature: Date/Time: Arabella [id number] Nurse Progress note Nursing GG Entered On: 03/02/2023 22:09 EST Performed On: 03/02/2023 22:09 EST by Saima Young LPN Nursing GG's OT GG Grid Eating : Independent Saima Young LPN - 03/02/2023 22:09 EST Digitally Signed by Saima Young LPN on 03/02/2023 10:09 PM Arabella [id number] Hospital Discharge instructions Patient Education 03/02/2023 18:57:13 Subarachnoid Hemorrhage, Tdkf-ew-Libw Subarachnoid Hemorrhage Subarachnoid hemorrhage is bleeding between [...] Follow these instructions at home: Medicines Take wjhq-eyh-fowdptf and prescription medicines only as told by [...] 05/21/2013 Document Revised: 01/06/2018 Document Reviewed: 11/03/2017 [employer] Patient Education 2020 [employer]. Follow Up Care 02/15/2023 16:57:34 With:URIAH BOCANEGRA MD, Neurosurgery Address: [address] [facility] [address] [place] [phone] When: only if needed Comments:Neurosurgeon - With:CHICO COLLIER MD Address: [address] [place] [address] [place] [address]- [phone] When:03/09/2023 13:40:00 Comments:Take Discharge Instructions to Dr Visit - With:CHELSEA MARIN PA-C Address: [address] [phone] When:03/17/2023 12:10:00 Comments:Neurology follow up - With:CHICO ELIZONDO MD, Orthopedic Address: [facility] [address] [address] [phone] When:03/25/2023 14:00:00 Comments:Orthopedic follow up - Arabella Singer 01-24-2024 Nurse Progress note Nursing GG Entered On: 03/02/2023 11:33 EST Performed On: 03/02/2023 11:33 EST by Myrna West LPN Nursing GG's OT GG Grid Eating : Independent Myrna West LPN - 03/02/2023 11:33 EST Digitally Signed by Myrna West LPN on 03/02/2023 11:33 AM Arabellasejal [id number] Physical medicine and rehab Progress note Rehab Note Chief Complaint: Seeing this patient for reevaluation of therapy progress and subarachnoid hemorrhage, right wrist fracture History of Present Illness: Seeing this patient for reevaluation of therapy and subarachnoid hemorrhage. Patient participates in acute inpatient rehabilitation with PT, OT and ST services. 77-year-old female admitted to [facility] from [facility] stay 02/08 - 02/15 who is past medical history of Parkinson's, hypertension, lipidemia, depression, and right lower extremity weakness who originally presented to pulmonary and hospital and was transferred to [facility] after imaging showed subarachnoid hemorrhage. Patient reported [...] Goal is to transition to SNF in [place]. Denies any concerns about discharge. Tentative discharge [...] Rate80(MAR 01 20:32)80(MAR 01 20:32)80(MAR 01 20:32) SSH823(MAR 02 05:43)111(MAR 01 08:55)H 152(MAR 01 20:32) [...] ADLs and self-care. Plan respite ECF at [facility] in [place] with long-term goal return back home with [...] STAN GARCIA DO on 03/02/2023 01:44 PM Arabella [id number] Note Subjective Patient states she is doing [...] right upper extremity, neurovascular check intact. 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 Latonia Rivera RN, am scribing for , and in the presence of Dr. Cardenas. I, Dr. Cardenas, personally performed the services described in this documentation, as scribed byLatonia RN in my presence and it is both accurate and complete. Digitally Signed by IVAN CARDENAS DO on 03/03/2023 09:13 AM [facility] HospitalAnnsbhyq36-47-7805 Physical medicine and rehab Progress note Rehab Note Chief Complaint: Seeing this patient for evaluation of therapy progress History of Present Illness: Seeing this patient for evaluation in therapy progress. Patient is participating in acute inpatient rehab services including PT/OT/MANAGER HUMAN RESOURCES. Patient status post hospitalizationat [facility] from 02/08 - 02/15 following a [...] discharging to an extended care facility, the [facility]. Tentative discharge date 03/03/2023. Medications Medication List [...] Rate84(FEB 28 21:04)84(FEB 28 18:32)84(FEB 28 18:32) QXJ954(FEB 28 21:04)92(FEB 28 09:23)130(FEB 28 21:04) DBP72(FEB [...] the right wrist planning orthopedic follow-up at [facility]. Plan transition [facility] long-term goal return to supervision of [...] STAN GARCIA DO on 03/01/2023 03:38 PM Arabella SingerOpkwaxzu61-94-2013 Note Subjective Patient reports that she is [...] right upper extremity, neurovascular check intact. VITALS XumhorCrvhHYYznjcCGQxW8UJD3DkneMa(kg) 02/28 21:0437.0--560809MO49/22 58.6 02/28 18:32----84----RA 02/28 15:0036.1--596748OO 02/28 09:2336.5--589164LC 02/28 05:5136.4--117905LC 24 Hr Tmax: 37.0 at 02/28 21:04 [...] tab(s), Tab, Oral, QID, 1st dose location: [facility], 1, 02/15/23 18:51:00 EST escitalopram Start: [...] 0, 02/15/23 17:27:00 EST acetaminophen (Tylenol) Start: 02/15/23:: EST, Dose = 650 mg, = 2 tab(s), Oral, q4h, PRN, Muscle pain, 02/15/23:27:00 EST docusate (Colace) Start: 02/15/23 17:27:00 EST, Dose = 100 mg, = 1 cap(s), Oral, BID, PRN, Constipation, 02/15/23 17:27:00 EST glucagon (GlucaGen) Start: 02/15/23 17:27:00 EST, Dose = 1 mg, = 1 mL, Intramuscular, AsDirected, PRN, Hypoglycemia, if unresponsive, NO IV ACCESS & blood glucose less than 70mg/dL. If still unresponsive after 2 minutes, REPEAT x1., 02/15/23:27:00 EST glucose (Dextrose 50% IV Push) Start: 02/15/23:27: EST, Dose = 12.5 gram(s), = 25 mL, IV Push,AsDirected, PRN, Hypoglycemia, if unresponsive WITH IV ACCESS & blood glucose less than 70mg/dL. 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 CT imaging revealing small arachnoid hemorrhage in the right supra lobe without mass effect or midline shift. Neurosurgical notes reviewed, conservative treatment, follow- up with them for further guidance, avoiding all antiplatelets anticoagulants NSAIDs. Follow up with neuro 2/ Recurrent falls in the setting of orthostatic [...] IVAN CARDENAS DO on 03/03/2023 09:21 AM [facility] HospitalMnswxbui74-78-5054 Physical medicine and rehab Progress note Rehab Note Chief Complaint: Seeing this patient for evaluation of therapy progress History of Present Illness: Seeing this patient for evaluation in therapy progress. Patient is participating in acute inpatient rehab services including PT/OT/MANAGER HUMAN RESOURCES. Patient status post hospitalizationat [facility] from 02/08 - 02/15 following a [...] discharging to an extended care facility, the [facility]. Tentative discharge date 03/03/2023. Medications (14) Active [...] hrs)__Last Charted Minimum Maximum Temp36.7(FEB 27 09:19)36.7(FEB 27:19)36.7(FEB 27:19) Heart Rate92(FEB 27 09:19)92(FEB 27 09:19)92(FEB 27 09:19) EUK265(FEB 27:09)L 88(FEB 27:19)H 146(FEB 27 06:05) DBP74(FEB 27 20:09)L 58(FEB [...] on right wrist [facility] Plastizote [facility]. Plan transition to [facility] respite care March 03 ongoing home care services. Risks/benefits of meds, treatments considered. Therapy notes reviewed. Discussed with staff. PMH/ reviewed and unchanged Note: This dictation was [...] STAN GARCIA DO on 02/28/2023 08:05 PM Arabella [id number] Note Subjective Patient voices no acute complaints [...] right upper extremity, neurovascular check intact. 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 Roger Rivera APRN., personally performed the services described in this documentation, as described by Renea Goins LPN in my presence and it is both accurate and complete. Digitally Signed by ROGER REESE on 03/01/2023 07:33 PM [facility] HospitalXfgdajve72-24-2978 Note REFERRING PHYSICIAN: Stan Garcia DO. CONSULTING PSYCHOLOGIST: Aashish Muro, PhD. REASON FOR REFERRAL: Neuropsychological exam. HISTORY OF PRESENT ILLNESS: Ms. Mcnally is a 77-year-old right-handed white female admitted to [facility] from [facility] 02/15/2023 after falling down multiple steps. [...] Includes hypertension, hyperlipidemia, depression. 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 [...] some family history. Ms. Mcnally lives in [place] with her daughter Larisa and Larisa's , [...] time tags, but thought she was in [place] at a facility called [facility]. Verbal attention span is mildly impaired limited to 4 numbers recalled in order consistently and 6 with mistakes on tries. Verbal complex attention measured by digits reversed is mild to moderately impaired limited to 3 numbers reversed consistently and 4 with mistakes on tries. Visual attention span is mild to moderately impaired limited to 3 visual units recalled consistently and4 with mistakes on some tries. LANGUAGE: Ms. [...] later, she recalled only 1/5 words, a ozmy-hh-tshcskdw deficit score. EXECUTIVE FUNCTIONS: Verbal everyday reasoning based on the judgment test is intact, 8/10 points. Moderately impaired on cognitive estimates, another verbal reasoning measure, 3/6 items correct. Mildto moderately impaired on matrix reasoning, a visual reasoning measure, standard score of 5. Poor insight. Moderately slow on most tasks. CONCLUSIONS: Cognitive testing reveals yutghkdm-nh-gdlwxg deficit in verbal memory, but normal visual memory. Normal verbal everyday reasoning, but moderately impaired cognitive estimates. Aoka-rl-dqdatykc deficit scores on the verbal and visual [...] right occipital subarachnoid hemorrhage, status post fall. Epvh-kp-mdukveji cognitive deficits. 2. 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 3. Parkinson's disorder related cognitive symptoms, typically slowed thinking and attention. 4. Depression by chart review, on Lexapro. AASHISH MURO, PhD GM/NTS JOB#: [id number] DICTATION ID#: [id number] Digitally Signed by AASHISH MURO PhD on 02/23/2023 02:29 PM Arabella DoanCfgmvomo00-40-8127 Note ORIGINAL EXAMINATION: THREE XRAY VIEWS OF [...] Locations *1: This test was performed at: [facility], [address] [place] [address], [id number]- , [facility] ([place])02-16-2023 Evaluation + Plan noteExtracted from: Title:Clinical Document [...] down 8-10 steps, she was transferred to [facility] after imaging showed subarachnoid hemorrhage. CT of [...] was deemed medically stable and transferred to [facility] unit for physical occupational therapies [...] with daughter single level set up. Primary Hand Leather Trimmer: Self. Safe place to go: Yes. Lives [...] hrs)__Last Charted Minimum Maximum Temp36.2(FEB 16 04:56)36.2(FEB 16:56)36.2(FEB 16 04:56) Heart Rate84(FEB 15 16:40)84(FEB 15 16:40)84(FEB 15 16:40) Resp Rate18(FEB 16:56)18(FEB 15 16:40)18(FEB 15 16:40) PRX556(FEB 16 04:56)108(FEB 15 16:40)114(FEB 16 04:56) DBP72(FEB 16:56)60(FEB 15 16:40)72(FEB 16 04:56) No [...] presence of Dr. Radha HENLEY. IDr. Radha DO , personally performed the services described in this documentation, as described by Julia San LPN in my presence and it is both accurate and complete. Arabella Singer 01-10-2024 Physical medicine and rehab History and [...] down 8-10 steps, she was transferred to [facility] after imaging showed subarachnoid hemorrhage. CT of [...] was deemed medically stable and transferred to [facility] unit for physical occupational therapies [...] with daughter single level set up. Primary Hand Leather Trimmer: Self. Safe place to go: Yes. Lives [...] Resp Rate18(FEB 16:56)18(FEB 15 16:40)18(FEB 15 16:40) ULU962(FEB 16:56)108(FEB 15 16:40)114(FEB 16:56) DBP72(FEB 16:56)60(FEB 15 [...] presence of Dr. Radha HENLEY. IDr. Radha DO , personally performed the services described in this documentation, as described by Julia San LPN in my presence and it is both accurate and complete. Digitally Signed by STAN GARCIA DO on 02/16/2023 01:57 PM [facility] HospitalHhaqijiu23-01-5634 Physical medicine and rehab Consult note INPATIENT REHAB HISTORY AND PHYSICAL CONSULTATION DATE OF ADMISSION: 02/15/2023 CC: Falls, subarachnoid hemorrhage Admission History and Physical HISTORY OF PRESENT ILLNESS: This is a 77-year-old female admitted to [facility] from [facility] stay 02/08 - 02/15 who is past medical history of Parkinson's, hypertension, lipidemia, depression, and right lower extremity weakness who originally presented to [facility] and was transferred to [facility] after imaging showed subarachnoid hemorrhage. Patient reported [...] Patient was deemed medically stable transferred to [facility] for physical and occupational therapy [...] Rate18(FEB 15 16:40)18(FEB 15 16:40)18(FEB 15 16:40) PCY742(FEB 15 16:40)108(FEB 15 16:40)108(FEB 15 16:40) DBP60(FEB [...] will follow during acute rehabilitation stay at [facility] with the [...] services described in this documentation, as scribed byLatonia RN in my presence and it is both accurate and complete. Digitally Signed by IVAN CARDENAS DO on 02/17/2023 09:27 AM [facility] HospitalRjfzvsmx62-89-8337 Hospital Discharge instructions Patient Education 02/15/2023 13:48:18 Subarachnoid Hemorrhage, Goqx-hv-Bpab Subarachnoid Hemorrhage Subarachnoid hemorrhage is bleeding between [...] Follow these instructions at home: Medicines Take dfoh-nxa-pbphexj and prescription medicines only as told by [...] 05/21/2013 Document Revised: 01/06/2018 Document Reviewed: 11/03/2017 [employer] Patient Education 2020 [employer] Follow Up Care 02/08/2023 16:21:53 With:[facility], Address:Unknown When:1-2 days With:[facility] Address: When:Within 2 Week(s) With:CHICO COLLIER MD Address: [address] [place] [address] [place] [address] [phone] When:3-7 days [facility] 01-09-2024 Discharge summary Date of Service [...] Ordered: Discharge,02/15/23 10:25:00 EST, Discharged to: Rehab Facility, [facility] Ordered: Discharge Communication Order,Please check orthostatic VS [...] Orders Electronically Signed By,02/15/23 10:25:00 EST, STEW ALEX DO Ordered: Transfer of Care PT,Reason for [...] hypertension, depression, and hyperlipidemia. Patient presented to [facility] with complaints of fall. Per documentation patient fell down 8-10 steps. she was found confused on walking from various rooms in the house aimlessly and turning on all the lights. CT head showed right occipital subarachnoid hemorrhage. Patient was then transferred to [facility] for further evaluation. patient was evaluated [...] and Occupational Therapy recommend patient [facility] [place] [facility].. Discussed with my collaborating physician Dr. Stew Alex This dictation was performed using voice recognition [...] day. Follow Up Follow Up with [facility] [place] When In 2 weeks Where: Follow Up with CHICO COLLIER MD When Within 3-7 days Where: [address] [place] [address] [place] [address]- [phone] Follow Up Appointments Transfer of Care OT [...] EST Condition on Discharge Stable Discharge Disposition Arabella Singer Information Provided To Patient Daughter-Larisa Time Spent 32 minutes Digitally Signed by SHEELA PORRAS on 02/15/2023 01:37 PM [facility] HospitalAndbtlvq91-31-9477 Note Discharge Instructions Thank you for allowing Arabella to assist you with your healthcare needs. The following is importantdischarge information regarding your hospital visit. Your Care Team CHICO COLLIER MD Your Diagnosis 3 mm nodule right upper lobe HTN (hypertension) Orthostatic hypotension Parkinson disease Small right occipital SAH s/p fall on 02/06/2023 What to do next Follow Up Appointments [facility] Within 1-2 days [facility] Up with [facility] [place] When In 2 weeks Where: Follow Up with CHICO COLLIER MD When Within 3-7 days Where: [address] [place] [address] [place] [address]- [phone] The Following Activity and Diet Have Been [...] - Ordered -- 02/15/23 10:25:00 EST, STEW ALEX DO Transfer of Care Prognosis - Ordered [...] Follow these instructions at home: Medicines Take lrmz-cca-vrwhvol and prescription medicines only as told by [...] 05/21/2013 Document Revised: 01/06/2018 Document Reviewed: 11/03/2017 [employer] Patient Education 2020 [employer] Additional Information VACCINATE! IT SAVES LIVES! Members of the community who have not yet received the COVID-19 vaccine and would like to receive it can visit one of [facility] vaccine clinics. There are many vaccine clinic locations within the [facility]. For locations and available times, please visit [email or web address].gov/. It is important to note that some COVID mobile vaccine clinics are held outdoors and may be canceled in rainy or stormy conditions. To learn more about pediatric vaccinations (ages 5-11), we invite you to visit the [facility] webpage. https://www.[facility].org/pages/1364-Amkpu-Blzfmescxrc-Bettqbdyow-Fxpeg-Lqh stions.htmlTo learn more about the COVID-19 vaccine, we invite you to visit the CDC website for a list of frequently asked questions.https://www.cdc.gov/coronavirus/2019-ncov/vaccines/faq.html [email or web address] Patient Portal Access Instructions: Stay connected with your healthcare team and access your personal medical information anytime with the [facility] Patient Portal. Please follow the directions below to create your [facility] account: 1.Access the email account you provided upon registration to the hospital/physician office.2.Look for an invitation email from [facility].3.Open the email and access the invitation link: AcceptInvitation to [email or web address].4.Fill in the required lujan to create your account. To access your account, visit [employer]. Click the blue button labeled Access Patient Portal and then log in with the username and password that you created in the steps above. You will be able to view your test results, lab results, a summary of your visits, upcoming appointments and more. There is also a convenient messaging option where you can send secure messages to your 22seeds[employer]ider. In addition, you will have the ability to download any documents or summaries to your computer and/or send the information securely to a physician. Remember that your healthcare information is confidential, so carefully consider who you will allowto register on the [email or web address] Patient Portal for access to your information. You can also access the [facility] Patient Portal on the [facility] sabas. Simply click on Patient Portal and then log into your account. If you would like to receive a full copy of your medical records, please contact the [facility] Medical Records Department by calling [phone], Tuesday through Tuesday between 8 a.m. and [...] Call your local pharmacy or go to [email or web address]/[email or web address] to find one close to you.3.Make use of household items: Use cat litter or old coffee grounds to dispose medications if other options arenot available. Mix your drugs with these household products, seal them in an airtight container andthrow it into the garbage. Call [facility]: [phone] to be sure your drugs can be [...] COPY. Signatures Patient Education Materials Subarachnoid Hemorrhage, Boma-lo-Stnt Medication Leaflets My discharge plan and instructions have been reviewed and explained to me and IDALI CONNIE L understand my current condition and have read and understand these discharge instructions. I have received a written copy of the plan/instructions. If I have questions, I am aware that I should contact my doctor. Patient/Health Record Technician Signature: Date/Time: Relationship to Patient: Witness Name/Signature: Date/Time: [facility] [id number] Note Discharge Instructions Thank you for allowing [facility] to assist you with your healthcare needs. The following is importantdischarge information regarding your hospital visit. Your Care Team CHICO COLLIER MD Your Diagnosis 3 mm nodule right upper lobe HTN (hypertension) Orthostatic hypotension Parkinson disease Small right occipital SAH s/p fall on 02/06/2023 What to do next Follow Up Appointments Follow Up with [facility], When Within 1-2 days [facility] When In 2 weeks Where: Follow Up with CHICO COLLIER MD When Within 3-7 days Where: [address] [place] [address] [place] [address]- [phone] The Following Activity and Diet Have Been [...] - Ordered -- 02/15/23 10:25:00 EST, STEW ALEX DO Transfer of Care Prognosis - Ordered [...] to receive it can visit one of [facility] vaccine clinics. There are many vaccine clinic locations within the [facility]. For locations and available times, please visit [email or web address].gov/. It is important to note that some COVID mobile vaccine clinics are held outdoors and may be canceled in rainy or stormy conditions. To learn more about pediatric vaccinations (ages 5-11), we invite you to visit the [facility] webpage. https://www.[facility].org/pages/3026-Usxiu-Qtrxhpnokar-Ybagmaamhm-Hzzov-Bfk stions.htmlTo learn more about the COVID-19 vaccine, we invite you to visit the CDC website for a list of frequently asked questions.https://www.cdc.gov/coronavirus/2019-ncov/vaccines/faq.html [facility] Patient Portal Access Instructions: Stay connected with your healthcare team and access your personal medical information anytime with the [facility] Patient Portal. Please follow the directions below to create your [facility] account: 1.Access the email account you provided upon registration to the hospital/physician office.2.Look for an invitation email from [facility].3.Open the email and access the invitation link: AcceptInvitation to [facility].4.Fill in the required lujan to create your account. To access your account, visit E[employer]Ticket[employer]Graftworxhart. Click the blue button labeled Access Patient [...] who you will allowto register on the [facility] Patient Portal for access to your information. You can also access the [facility] Patient Portal on the [facility] sabas. Simply click on Patient Portal and then log into your account. If you would like to receive a full copy of your medical records, please contact the [facility] Medical Records Department by calling [phone], Tuesday through Tuesday between 8 a.m. and [...] Call your local pharmacy or go to [email or web address]/[email or web address] to find one close to you.3.Make use of household items: Use cat litter or old coffee grounds to dispose medications if other options arenot available. Mix your drugs with these household products, seal them in an airtight container andthrow it into the garbage. Call [facility]: [phone] to be sure your drugs can be [...] aware that I should contact my doctor. Patient/Health Record Technician Signature: Date/Time: Relationship to Patient: Witness Name/Signature: Date/Time: [facility] [id number] Discharge summary Date of Service 02/15/23 Discharge [...] Ordered: Discharge,02/15/23 10:25:00 EST, Discharged to: Rehab Facility [place] Ordered: Discharge Communication Order,Please check orthostatic VS [...] Orders Electronically Signed By,02/15/23 10:25:00 EST, STEW ALEX DO Ordered: Transfer of Care PT,Reason for [...] hypertension, depression, and hyperlipidemia. Patient presented to [facility] with complaints of fall. Per documentation patient fell down 8-10 steps. she was found confused on walking from various rooms in the house aimlessly and turning on all the lights. CT head showed right occipital subarachnoid hemorrhage. Patient was then transferred to [facility] for further evaluation. patient was evaluated [...] and Occupational Therapy [facility] Discussed with my collaborating physician Dr. Stew Alex This dictation was performed using voice recognition [...] day. Follow Up Follow Up with [facility] [place] When In 2 weeks Where: Follow Up with CHICO COLLIER MD When Within 3-7 days Where: [address] [place] [address] [place] [address]- [phone] Follow Up Appointments Transfer of Care OT [...] EST Condition on Discharge Stable Discharge Disposition [facility] Information Provided To Patient Daughter-Larisa Time Spent 32 minutes Digitally Signed by SHEELA PORRAS on 02/15/2023 01:37 PM [facility] [id number] Note Date of Service 02/14/23 Chief Complaint Weakness Subjective Patient is a 77 year old female with a past medical history significant for Parkinson's disease, hypertension, depression, and hyperlipidemia. Patient presented to [facility] with complaints of fall. Per documentation patient fell down 8-10 steps. she was found confused on walking from various rooms in the house aimlessly and turning on all the lights. CT head showed right occipital subarachnoid hemorrhage. Patient was then transferred to [facility] for further evaluation. patient was evaluated [...] did call the patient's daughter (Larisa Cabral [phone]) via phone. Patient and family verbalizes understanding and are agreeable plan of care. Patient plans to be discharged to [facility] once medically optimized. Discussed with my collaborating physician Dr. Stew Alex This dictation was performed using voice recognition software and may include grammatical and/or spelling errors Orders: Consult to Physician Time Spent 26 minutes Digitally Signed by SHEELA PORRAS on 02/14/2023 01:18 PM [facility] [id number] Note Date of Service 02/14/23 Chief Complaint Weakness Subjective Patient is a 77 year old female with a past medical history significant for Parkinson's disease, hypertension, depression, and hyperlipidemia. Patient presented to [facility] with complaints of fall. Per documentation patient fell down 8-10 steps. she was found confused on walking from various rooms in the house aimlessly and turning on all the lights. CT head showed right occipital subarachnoid hemorrhage. Patient was then transferred to [facility] for further evaluation. patient was evaluated [...] did call the patient's daughter (Larisa Cabral [phone]) via phone. Patient and family verbalizes understanding and are agreeable plan of care. Patient plans to be discharged to [facility] once medically optimized. Discussed with my collaborating physician Dr. Stew Alex This dictation was performed using voice recognition software and may include grammatical and/or spelling errors Orders: Consult to Physician Time Spent 26 minutes Digitally Signed by SHEELA PORRAS on 02/14/2023 01:18 PM [facility] [id number] Neurology Consult note Date of Service 02/13/23 Reason for Consultation Parkinson's/orthostatic hypotension Referring Physician Dr. Yates History of Present Illness Patient is a 77-year-old female with PMH of Parkinson's per daughter diagnosed 6 years ago by neurologist, and, depression, HLD, recurrent falls at home. Presented to [facility] on 02/08/2023 for evaluation after a [...] of the night as if she is ing. 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 However was much worse after she hit [...] commands, Mental Status: Orientation: Oriented to person, [facility], and [facility] Language: Normal fluency, normal simple comprehension Speech: [...] Strength: 5/5 Tone: Increased in all Coordination: Zpwlsk-xkkd-jwadsw movements: No ataxia present Reflexes: R: L [...] PLAN: -CT brain without contrast completed at [facility] on 02/08/2023 demonstrates small subarachnoid hemorrhage in [...] to the oncoming team. Alee Méndez MD [facility] Problem List/Past Medical History Ongoing No [...] ALEE MÉNDEZ MD on 02/13/2023 03:46 PM [facility] [id number] Note Date of Service 02/13/23 Chief Complaint Dizziness/Weakness Subjective Patient is a 77 year old female with a past medical history significant for Parkinson's disease, hypertension, depression, and hyperlipidemia. Patient presented to [facility] with complaints of fall. Per documentation patient fell down 8-10 steps. she was found confused on walking from various rooms in the house aimlessly and turning on all the lights. CT head showed right occipital subarachnoid hemorrhage. Patient was then transferred to [facility] for further evaluation. patient was evaluated [...] daughter at bedside and daughter (Larisa Cabral [phone]) via phone. Patient and family verbalizes understanding and are agreeable plan of care. Discussed with my collaborating physician Dr. adelita yates This dictation was performed using voice recognition software and may include grammatical and/or spelling errors Orders: Consult to Physician Time Spent 41 minutes Digitally Signed by SHEELA PORRAS on 02/13/2023 01:23 PM Digitally Signed by SHEELA PORRAS on 02/13/2023 01:25 PM [facility] [id number] Note Date of Service 02/12/23 Chief Complaint Weakness Subjective Patient is a 77 year old female with a past medical history significant for Parkinson's disease, hypertension, depression, and hyperlipidemia. Patient presented to [facility] with complaints of fall. Per documentation patient fell down 8-10 steps. she was found confused on walking from various rooms in the house aimlessly and turning on all the lights. CT head showed right occipital subarachnoid hemorrhage. Patient was then transferred to [facility] for further evaluation. patient was evaluated [...] L 86(FEB 12 04:01) H 157(FEB 12 04:) DBP 81(FEB 12 12:) C 36(FEB 12 04:01) H 92(FEB 12 [...] grammatical and/or spelling errors Collaborative Care Team [facility] Medicine Shared/split visit with Sheela Porras APRN-REHABILITATION THERAPY TECHNICIAN. Patient seen and examined independently. Care discussed and coordinated by the entire care team under my direction. Discussed with daughters at bedside. Difficult balance of hypertension in the setting of SAH and severe orthostasis - both of which would be potentially catastrophic if not well treated in a rehab setting. Will need inpatient further management. Added fludrocortisone. Increased amlodipine. adelita yates md [facility] Medicine Digitally Signed by SHEELA PORRAS APRN-REHABILITATION THERAPY TECHNICIAN on 02/12/2023 02:14 PM Digitally Signed by ADELITA YATES MD FACP on 02/12/2023 04:17 PM [facility] [id number] Neurological surgery Consult note Date of Service 02/09/2023 This is a split/shared consultation with Dr. Bocanegra Reason for Consultation SAH Referring Physician Dr. Rowland History of Present Illness This is a 77-year-old female with a PMH significant for hypertension, hypercholesterolemia, Parkinson's disease with multiple falls who presented to [facility] on 02/08/2023 for evaluation after a [...] For that reason, she was transferred to [facility] ED for further evaluation. History taken [...] CT head imaging reviewed from [facility]. Assessment/Plan Small right occipital SAH s/p fall on 02/06/2023 CT brain without contrast completed at [facility] on 02/08/2023 demonstrates small subarachnoid hemorrhage in [...] by JEEVAN MARTINEZ on 02/09/2023 09:39 AM [facility] [id number] Neurological surgery Consult note Date of Service 02/09/2023 This is a split/shared consultation with Dr. Bocanegra Reason for Consultation SAH Referring Physician Dr. Rowland History of Present Illness This is a 77-year-old female with a PMH significant for hypertension, hypercholesterolemia, Parkinson's disease with multiple falls who presented to [facility] on 02/08/2023 for evaluation after a [...] For that reason, she was transferred to [facility] ED for further evaluation. History taken [...] CT head imaging reviewed from [facility]. Assessment/Plan Small right occipital SAH s/p fall on 02/06/2023 CT brain without contrast completed at [facility] on 02/08/2023 demonstrates small subarachnoid hemorrhage in [...] by JEEVAN MARTINEZ on 02/09/2023 09:39 AM [facility] [id number] History and physical note Date of Service [...] REILLY ROWLAND MD on 02/08/2023 08:50 PM [facility] [id number] Note ORIGINAL EXAMINATION: CT CHEST WITH CONTRAST02/08/2023 [...] 02/08/2023 10:26:14 PM Ordering Provider: [facility]01-02-2024 History and physical note Date of Service [...] REILLY ROWLAND MD on 02/08/2023 08:50 PM [facility] HospitalWnpyradb85-05-0149 Note ORIGINAL EXAMINATION: CT OF THE CERVICAL [...] Sign Date: 02/08/2023 6:55:16 PM Ordering Provider: [facility]01-02-2024 Note ORIGINAL EXAMINATION: ONE XRAY VIEW OF [...] 02/08/2023 6:53:03 PM Ordering Provider: [facility]01-02-2024 Evaluation + Plan noteExtracted from: Title:History and [...] not yet verified. They will need reconciled [facility] Evaluation noteNo assessment information available [facility] Work Phone: Hospital course Narrative No data available for this section [facility] Hospital Discharge instructions Additional Instructions Ice [...] return to the emergency department. Tylenol for pain.[facility] Work Phone: Progress note Author Barbara Ramirez [facility] Note Date/Time July 03, 2024 11:09 am [facility] [address] [place] [address] OFFICE VISIT Date of Service: 07/03/24 MR#: [id number] Acct: [id number] Name: ROSARIO MCNALLY Rep #: [id number] : 1945 Provider: RANDALL Ramirez Age/Sex: 78/F Location: [facility] Status: Signed Intake Vital Signs 06/28/24 [...] POSITIVE HEMOCULT Chief Complaint: occult positive stools Package Clerk Required: No Accompanied by: Caregiver Is patient in pain?: No Allergies amoxicillin (From Trimox) Allergy (Verified 07/03/24 10:13) Hives Medications ?Medication ?Instructions ?Recorded ?Confirmed ?Type acetaminophen 650 mg 650 mg PO Q8H 03/28/2307/03 History tablet,extended release atorvastatin 10 mg tablet 10 mg PO QHS 03/28/23 History bisacodyl 10 mg rectal suppository 10 mg AZ DAILY PRN 03/28/23 07/03/24 History (Dulcolax (bisacodyl)) [...] testing if a lesion/cancer were found [place] [phone] ROS Const Constitutional: No fatigue, fever(s) or [...] resulting in a large left arm laceration [id number] sutures. Her hemoglobin initially dropped to 9.0 [...] I recommend repeating in one month. Note: PEER speech recognition neurological surgery teacher software was used to create portions of this document. Sound-alike and misspelled words, as well as other neurological surgery teacher errors may be contained in the documentation. Coding Level of Care Code Off vis,new,level 4 Diagnoses Anemia D64.9 Occult blood positive stool R19.5 Clinical Quality Measures Falls Risk Screening/Assistive Devices Have you fallen in the past year?: Yes Smoking Screening Smoking Status: Never smoker 07/03/24 1109 <Electronically signed by Barbara PEREIRA> Date _ Barbara PEREIRA Cosigner Signature: Date (if applicable) CC: ~ [facility] Work Phone: Reason for referral (narrative)No reason for referral information availableWMagruder Memorial Hospital Work Phone: Summary Purpose Family [...] Do you have a Healthcare Power of Medical Office Coordinator? Yes June 25, 2024 9:00pm Chief Complaint and Reason for Visit Chief Complaint Personal history of other diseases of the circulat Chief Complaint Admit Date LACERATION June 25, 2024 8:54p m Chief Complaint Admit Date LACERATION June 25, 2024 8:54p m ED FOLLOW UP June 28, 2024 2:25p m [facility] WORK July 03, 2024 4:0 0am ANEMIA POSITIVE HEMOCULT July 03, 2024 9:56am Reason for Visit Admit Date Laceration of forearm, left June 28 2:25pm Anemia July 03, 2024 9:56a m Occult blood positive stool July 03 9:56am Chief Complaint Admit Date LACERATION June 25, 2024 8:54p m ED FOLLOW UP June 28, 2024 2:25p m CARE HOME LAB WORK July 03, 2024 4:0 0am ANEMIA POSITIVE HEMOCULT July 03, 2024 9:56am 1 W FU July 06, 2024 2:14p m Chief Complaint Admit Date LACERATION June 25, 2024 8:54p m ED FOLLOW UP June 28, 2024 2:25p m CARE HOME LAB WORK July 03, 2024 4:0 0am [...] Date LACERATION June 25, 2024 8:54p m [facility] WORK June 27, 2024 5:0 0am C[facility] WORK June 28, 2024 5:0 0am ED FOLLOW UP June 28, 2024 2:25p m [facility] WORK July 03, 2024 4:0 0am [...] Laceration of forearm, left July 13 1:56pm Chief Complaint Admit Date LACERATION June 25, 2024 8:54p m [facility] WORK June 27, 2024 5:0 0am C[facility] WORK June 28, 2024 5:0 0am ED FOLLOW UP June 28, 2024 2:25p m [facility] WORK July 03, 2024 4:0 0am ANEMIA POSITIVE HEMOCULT July 03, 2024 9:56am 1 W FU July 06, 2024 2:14p m 1 W FU July 13, 2024 1:56p m 2 W FU July 27, 2024 9:16 am Additional Source Comments INFORMATION SOURCE (unrecogn ized section and content) DATE CREATED AUTHOR 12/30/2022 [facility] DATE CREATED AUTHOR AUTHOR'S ORGANIZ ATION 02/22/2023 [facility] DATE CREATED AUTHOR AUTHOR'S ORGANIZ ATION 03/05/2023 [facility] ([place]) DATE CREATED AUTHOR AUTHOR'S ORGANIZ ATION 07/29/2024 [facility] Patient Care team informatio n (unrecognized section [...] MD Primary Care Provider Active Start: July 27, 2024 Dr. Rahul SAAVEDRA MD Attending Provider Active Start: July 27, 2024 Team Status: Inactive Member Role Status Dates Dr. Yahaira Winn MD Primary Care Provider Active Start: July 27, 2024 End: July 27, 2024 Dr. Yahaira Winn MD Referring Provider Active Start: July 27, 2024 End: July 27, 2024 Dr. Jose Matthews MD Attending Provider Active Start: July 27, 2024 End: July 27, 2024 Goals (unrecognized section and content) Goals [...] BE BASED ON THE PRIMARY CLINICAL RECORDS. [facility]. provides no warranty or guarantee of the accuracy or completeness of information in this document.
--- OUTSIDE RECORDS SUMMARY | 2024-07-31 04:15 | XMS RPT_ITS | CCD ---
Author Organization [facility] Care Team Providers Care Workday Consultant Name Role Phone Chico Collier MD Unavailable Chico Collier MD Unavailable [facility] Unavailable [phone] Phan SALAZAR, Dr. Alberts ([facility]) A Unavail able [facility] Unavailable Physical Therapy, David Bennett Unavailable [facility], . [facility] Unavailable ([place]), [facility] Un[facility] Unavailable Janeth Chávez RN Unavailable Unavailable Zack SOTON, Serena Unavailable Pratik TAVAREZ, Luke George Unavailable Malinda Christie Unavailable Unavailable Pratik HUYNH, Ana Cristina L Unavailable Unavail able Tree SOOTN, Tavia Unavailable Unavailable Sherman HUYNH, Frida Hope Unavailable Unavaila grecia Meier LPN, Obi Unavailable Unavailable Phan HUYNH, Funmi Unavailable [phone] Eulalia SOTON, Sarah K Unavailable Tonie Stone Unavailable Unavailable Janeth Florez Unavailable Luis SOTON, America Unavailable Unavailab le Vess WELFARE ELIGIBILITY INTERVIEWER, Neilee L Unavailable Unavailable Ros OSTON, Barbara Unavailable Unavailabl e Unavailable Unavailable DR [...] Hope Consulting Unavailable EKATERINA SALAZAR, DR CHICO [facility] IVAN Pimentel DO Consulting Unavailable ASHLEY GENETIC TECHNOLOGIST-MECHANICAL ENGINEERING OFFICER, HEENA Navarrete Consulting Unavaila ble EKATERINA SALAZAR, DR CHICO [facility] STAN Raymond DO Admitting Unavailable STAN GARCIA DO Attending Unavailable DR CHICO COLLIER MD Primary Care Troy VALDIVIA MD, DR AMBRIZ Admitting Unavailable JACKELYN SALAZAR, KAYLI Consulting Unavailable ART SALAZAR FACP, ADELITA Trujillo Attending Unavail able Jesus Manuel YANCEY, Stefanie Unavailable Unavailable Dr. Joel Muniz MD Emergency Provider [phone] Dr. Yahaira Winn MD Primary Care Provider [phone] Dr. Joel Muniz MD Attending Provider Diogenes SALAZAR, Dr. Kay Attending Provider Unavail able Pa SALAZAR, Dr. Yahaira S Referring Provider Dr. Jose Matthews MD Attending Provider Dr. Rahul Shetty MD Referring Provider Unavail able James TEST DIRECTOR-CBarbara Attending Provider Jolliff, Yahaira S Primary Care [...] Facility (20 sources) Penicillin V Drug Allergy [facility]. (20 sources) predniSONE Drug Allergy [facility]. (11 sources) Amoxicillin; Translations: [amoxicillin] Drug Allergy 4 [facility] ([facility] (1 source) Amoxicillin Drug Allergy [facility] Repository (1 source) predniSONE Drug Allergy [facility]ository (1 source) Amoxicillin Drug Allergy 5 [facility] Repository Medications Current Medications Medication Drug [...] chewable tablet (17 sources) Start: 07-03-2024 Alum-Mag [place] xide-Simeth (Gelusil Antacid And Anti-Gas) 200-200-25 mg [...] qDay, # 30 tab(s), 0 Refill(s), Pharmacy: [facility], 160, cm, 02/15/23 17:41:00 [...] QID, # 120 tab(s), 0 Refill(s), Pharmacy: [facility], 160, cm, 02/15/23 17:41:00 [...] TID, # 90 tab(s), 0 Refill(s), Pharmacy: [facility], 160, cm, 02/15/23 17:41:00 [...] July 03, 2024 12:00am polyethylene glycol 3350 93133 mg powder for oral solution (10 sources) [...] risk drug monitoring status; Translations: [Other termite treater (current) drug therapy] 11-14-2013 Episodic Other aftercare (1 source) Long-term current use of drug therapy; Translations: [Other termite treater (current) drug therapy] Episodic Other and unspecified [...] 07-27-2024 Anion gap [Moles/Vol] 13 mmol/L 5-15 [facility] BUN/creatinine ratioOrdered By: Rahul Shetty on 07-27-2024 Urea nitrogen/Creatinine [Mass ratio] 12.8 mg/mg 10- [facility] Bilirubin, totalOrdered By: Rahul Shetty on 07-27-2024 Bilirubin [Mass/Vol] 0.53 mg/dL 0.00-1.30 [facility] Carbon dioxide, total [Moles /volume] in Central venous bloodOrdered By: Rahul Shetty on 07-27-2024 CO2 [Moles/Vol] 24.3 mmol/L 21.0-32.0 [facility] Chloride assayOrdered By: Vidal Shetty on 07-27-2024 Chloride [Moles/Vol] 103 mmol/L 98-108 [facility] Erythrocyte distribution wid th ratioOrdered By: Rahul Shetty on 07-27-2024 Erythrocyte distribution width (RBC) [Ratio] 13.2 % 11.6-14.6 [facility] Erythrocyte distribution wid th standard deviationOrdered By: Rahul Shetty on 07-27-2024 Erythrocyte distribution width (RBC) [Ratio] 44.5 fl High 35.1-43.9 [facility] Glomerular filtration rate ( GFR) estimation/1.73 sq m using serum, plasma, or whole bOrdered By: Rahul Shetty on 07-27-2024 GFR/1.73 sq M.predicted among non-blacks MDRD (S/P/Bld) [Vol rate/Area] 58 mL/min/{1.73_m2} Low >60 [facility] Comment on above: mL/min/1.73m2 CKD-EP I Creatinine Equation (2020) Hematocrit Auto (Bld) [Volum e fraction]Ordered By: Rahul Shetty on 07-27-2024 Hematocrit (Bld) [Volume fraction] 31.4 % Low 37-47 [facility] Hemoglobin measurementOrdere d By: Rahul Shetty on 07-27-2024 Hemoglobin (Bld) [Mass/Vol] 10.4 g/dL Low 12.0-15.0 [facility] Laboratory - Chemistry and C hemistry - challengeOrdered By: Rahul Shetty on 07-27-2024 AST [Catalytic activity/Vol] 19 U/L <32 [facility] MCV (mean corpuscular volume ) determinationOrdered By: Rahul Shetty on 07-27-2024 MCV (RBC) [Entitic vol] 91.5 fL 81-99 [facility] Mean corpuscular hemoglobin (MCH) determinationOrdered By: Rahul Shetty on 07-27-2024 MCH (RBC) [Entitic mass] 30.3 pg 27.0-32.0 [facility] Mean corpuscular hemoglobin concentration (MCHC) determinationOrdered By: Rahul Shetty on 07-27-2024 MCHC (RBC) [Mass/Vol] 33.1 g/dL 32-36 [facility] Mean platelet volume determi nationOrdered By: Rahul Shetty on 07-27-2024 Platelet mean volume (Bld) [Entitic vol] 10.3 fL 6.2-12.0 [facility] Plastic Surgery Visit Report on 07-27-2024 Plastic Surgery Visit Report [facility] Plastic Reconstructive Surgery [address], [address] [place] [address] OFFICE VISIT Date of Service: 07/27/24 MR#: [id number] Acct: [id number] Name: ROSARIO MCNALLY Rep #: [id number] : 1945 Provider: Dr. Jose Matthews MD Age/Sex: 78/F Location: [facility] Status: Signed Intake Vital Signs 07/06/24 [...] bisacodyl 10 mg rectal suppository 10 mg OK DAILY PRN 03/28/2307/09 History (Dulcolax (bisacodyl)) carbidopa [...] Plan ( (more content not included)... Normal [facility] Platelet countOrdered By: Vidal Shetty on 07-27-2024 Platelets (Bld) [#/Vol] 322 10*3/uL 150-450 [facility] Potassium measurement (mass/ volume)Ordered By: Rahul Shetty on 07-27-2024 Potassium (Unsp spec) [Mass/Vol] 3.8 mmol/L 3.3-5.1 [facility] RBC Auto (Bld) [#/Vol]Ordere d By: Rahul Shetty on 07-27-2024 RBC (Bld) [#/Vol] 3.43 10*6/uL Low 4.2-5.4 [facility] Serum creatinine measurement (mass/volume)Ordered By: Rahul Shetty on 07-27-2024 Creatinine [Mass/Vol] 1.00 mg/dL 0.70-1.20 [facility] Serum globulin measurementOr dered By: Rahul Shetty on 07-27-2024 Globulin (S) [Mass/Vol] 3.3 g/dL 2.2-4.2 [facility] Serum glucose measurement (m ass/volume)Ordered By: Rahul Shetty on 07-27-2024 Glucose [Mass/Vol] 98 mg/dL 70-99 [facility] Serum or plasma alanine quiles otransferase (ALT) measurementOrdered By: Rahul Shetty on 07-27-2024 ALT [Catalytic activity/Vol] 5 U/L <35 [facility] Serum or plasma albumin patricia urement (mass/volume)Ordered By: Rahul Shetty on 07-27-2024 Albumin [Mass/Vol] 4.1 g/dL 3.4-4.8 [facility] Serum or plasma albumin/glob ulin mass ratioOrdered By: Rahul Shetty on 07-27-2024 Albumin/Globulin [Mass ratio] 1.3 {ratio} 0.9-2.4 [facility] Serum or plasma alkaline enriqueta sphatase measurementOrdered By: Rahul Shetty on 07-27-2024 ALP [Catalytic activity/Vol] 103 U/L 35-104 [facility] Serum or plasma calcium patricia urement (mass/volume)Ordered By: Rahul Shetty on 07-27-2024 Calcium [Mass/Vol] 9.6 mg/dL 7.6-11.0 [facility] Serum or plasma urea nitroge n measurement (mass/volume)Ordered By: Rahul Shetty on 07-27-2024 Urea nitrogen [Mass/Vol] 13 mg/dL 4-19 [facility] Sodium levelOrdered By: Clyde Shetty on 07-27-2024 Sodium [Moles/Vol] 140 mmol/L 133-145 [facility] Total proteinOrdered By: Lucien Shetty on 07-27-2024 Protein [Mass/Vol] 7.3 g/dL 5.9-8.4 [facility] White blood cell (WBC) count Ordered By: Rahul Shetty on 07-27-2024 WBC (Bld) [#/Vol] 7.7 10*3/uL 4.4-11.0 [facility] Plastic Surgery Visit Report on 07-13-2024 Plastic Surgery Visit Report [facility] Plastic Reconstructive Surgery [address], [address] [place] [address] OFFICE VISIT Date of Service: 07/13/24 MR#: [id number] Acct: [id number] Name: ROSARIO MCNALLY Rep #: [id number] : 1945 Provider: Dr. Jose Matthews MD Age/Sex: 78/F Location: [facility] Status: Signed Intake Vital Signs 07/06/24 [...] bisacodyl 10 mg rectal suppository 10 mg OK DAILY PRN 03/28/2308/01 History (Dulcolax (bisacodyl)) carbidopa [...] proximal rosa (more content not included)... Normal [facility] Plastic Surgery Visit Report on 07-06-2024 Plastic Surgery Visit Report [facility] Plastic Reconstructive Surgery [address], [address] [place] [address] OFFICE VISIT Date of Service: 07/06/24 MR#: [id number] Acct: [id number] Name: ROSARIO MCNALLY Rep #: [id number] : 1945 Provider: Dr. Jose Matthews MD Age/Sex: 78/F Location: [facility] Status: Signed Intake Vital Signs 3 [...] bisacodyl 10 mg rectal suppository 10 mg OK DAILY PRN 03/28/2306/09 History (Dulcolax (bisacodyl)) carbidopa [...] the s (more content not included)... Normal [facility] Erythrocyte distribution wid th ratioOrdered By: Rahul Shetty on 07-03-2024 Erythrocyte distribution width (RBC) [Ratio] 14.0 % 11.6-14.6 [facility] Erythrocyte distribution wid th standard deviationOrdered By: Rahul Shetty on 07-03-2024 Erythrocyte distribution width (RBC) [Ratio] 47.7 fl High 35.1-43.9 [facility] Gastroenterology Visit Repor ton 07-03-2024 Gastroenterology Visit Report [facility] Gastroenterology [address] [place] [address] OFFICE VISIT Date of Service: 07/03/24 MR#: [id number] Acct: [id number] Name: ROSARIO MCNALLY Rep #: [id number] : 1945 Provider: RANDALL li Age/Sex: 78/F Location[place] [facility] [place] Status: Signed Intake Vital Signs 06/28/24 [...] POSITIVE HEMOCULT Chief Complaint: occult positive stools [facility] Required: No Accompanied by: Caregiver Is patient in pain?: No Allergies amoxicillin (From Trimox) Allergy (Verified 07/03/24 10:13) Hives Medications ???Medication ???Instructions ???Recorded ???Confirmed ???Type acetaminophen 650 mg 650 mg PO Q8H 03/28/23 07/03/24 Hi story tablet,extended release atorvastatin 10 mg tablet 10 mg PO QHS 03/28/23 07/03/24 His tory bisacodyl 10 mg rectal suppository 10 mg OK DAILY PRN 03/28/2306/08 History (Dulcolax (bisacodyl)) carbidopa [...] testing if a lesion/cancer were found [place] [phone] ROS Const Constitutional: No fatigue, fever(s) or weight change ENT ENT: No difficulty swallowing Gastro GI: Positive for Blood in stool; No abdominal pain, belching, bloating, change in bowel habits, c (more content not included)... Normal [facility] Hematocrit Auto (Bld) [Volum e fraction]Ordered By: Rahul Shetty on 07-03-2024 Hematocrit (Bld) [Volume fraction] 30.5 % Low 37-47 [facility] Hemoglobin measurementOrdere d By: Rahul Shetty on 07-03-2024 Hemoglobin (Bld) [Mass/Vol] 9.8 g/dL Low 12.0-15.0 [facility] MCV (mean corpuscular volume ) determinationOrdered By: Rahul Shetty on 07-03-2024 MCV (RBC) [Entitic vol] 93.6 fL 81-99 [facility] Mean corpuscular hemoglobin (MCH) determinationOrdered By: Rahul Shetty on 07-03-2024 MCH (RBC) [Entitic mass] 30.1 pg 27.0-32.0 [facility] Mean corpuscular hemoglobin concentration (MCHC) determinationOrdered By: Rahul Shetty on 07-03-2024 MCHC (RBC) [Mass/Vol] 32.1 g/dL 32-36 [facility] Mean platelet volume determi nationOrdered By: Rahul Shetty on 07-03-2024 Platelet mean volume (Bld) [Entitic vol] 10.4 fL 6.2-12.0 [facility] Platelet countOrdered By: Vidal Shetty on 07-03-2024 Platelets (Bld) [#/Vol] 302 10*3/uL 150-450 [facility] RBC Auto (Bld) [#/Vol]Ordere d By: Rahul Shetty on 07-03-2024 RBC (Bld) [#/Vol] 3.26 10*6/uL Low 4.2-5.4 [facility] White blood cell (WBC) count Ordered By: Rahul Shetty on 07-03-2024 WBC (Bld) [#/Vol] 8.4 10*3/uL 4.4-11.0 [facility] Erythrocyte distribution wid th ratioOrdered By: Rahul Shetty on 06-29-2024 Erythrocyte distribution width (RBC) [Ratio] 13.7 % 11.6-14.6 [facility] Erythrocyte distribution wid th standard deviationOrdered By: Rahul Shetty on 06-29-2024 Erythrocyte distribution width (RBC) [Ratio] 46.4 fl High 35.1-43.9 [facility] Hematocrit Auto (Bld) [Volum e fraction]Ordered By: Rahul Shetty on 06-29-2024 Hematocrit (Bld) [Volume fraction] 30.7 % Low 37-47 [facility] Hemoglobin measurementOrdere d By: Rahul Shetty on 06-29-2024 Hemoglobin (Bld) [Mass/Vol] 9.8 g/dL Low 12.0-15.0 [facility] MCV (mean corpuscular volume ) determinationOrdered By: Rahul Shetty on 06-29-2024 MCV (RBC) [Entitic vol] 92.5 fL 81-99 [facility] Mean corpuscular hemoglobin (MCH) determinationOrdered By: Rahul Shetty on 06-29-2024 MCH (RBC) [Entitic mass] 29.5 pg 27.0-32.0 [facility] Mean corpuscular hemoglobin concentration (MCHC) determinationOrdered By: Rahul Shetty on 06-29-2024 MCHC (RBC) [Mass/Vol] 31.9 g/dL Low 32-36 [facility] Mean platelet volume determi nationOrdered By: Rahul Shetty on 06-29-2024 Platelet mean volume (Bld) [Entitic vol] 10.2 fL 6.2-12.0 [facility] Platelet countOrdered By: Vidal Shetty on 06-29-2024 Platelets (Bld) [#/Vol] 286 10*3/uL 150-450 [facility] RBC Auto (Bld) [#/Vol]Ordere d By: Rahul Shetty on 06-29-2024 RBC (Bld) [#/Vol] 3.32 10*6/uL Low 4.2-5.4 [facility] White blood cell (WBC) count Ordered By: Rahul Shetty on 06-29-2024 WBC (Bld) [#/Vol] 8.0 10*3/uL 4.4-11.0 [facility] Erythrocyte distribution wid th ratioOrdered By: Rahul Shetty on 06-28-2024 Erythrocyte distribution width (RBC) [Ratio] 13.7 % 11.6-14.6 [facility] Erythrocyte distribution wid th standard deviationOrdered By: Rahul Shetty on 06-28-2024 Erythrocyte distribution width (RBC) [Ratio] 46.7 fl High 35.1-43.9 [facility] Hematocrit Auto (Bld) [Volum e fraction]Ordered By: Rahul Shetty on 06-28-2024 Hematocrit (Bld) [Volume fraction] 27.6 % Low 37-47 [facility] Hemoglobin measurementOrdere d By: Rahul Shetty on 06-28-2024 Hemoglobin (Bld) [Mass/Vol] 9.0 g/dL Low 12.0-15.0 [facility] MCV (mean corpuscular volume ) determinationOrdered By: Rahul Shetty on 06-28-2024 MCV (RBC) [Entitic vol] 92.0 fL 81-99 [facility] Mean corpuscular hemoglobin (MCH) determinationOrdered By: Rahul Shetty on 06-28-2024 MCH (RBC) [Entitic mass] 30.0 pg 27.0-32.0 [facility] Mean corpuscular hemoglobin concentration (MCHC) determinationOrdered By: Rahul Shetty on 06-28-2024 MCHC (RBC) [Mass/Vol] 32.6 g/dL 32-36 [facility] Mean platelet volume determi nationOrdered By: Rahul Shetty on 06-28-2024 Platelet mean volume (Bld) [Entitic vol] 10.0 fL 6.2-12.0 [facility] Plastic Surgery Visit Report on 06-28-2024 Plastic Surgery Visit Report [facility] Plastic [facility]ive Surgery [address], [address] [place] [address] OFFICE VISIT Date of Service: 06/28/24 MR#: [id number] Acct: [id number] Name: ROSARIO MCNALLY Rep #: [id number] : 1945 Provider: Dr. Jose Matthews MD Age/Sex: 78/F Location: [facility] Status: Signed Intake Vital Signs 3 [...] bisacodyl 10 mg rectal suppository 10 mg OK DAILY PRN 03/28/2306/08 History (Dulcolax (bisacodyl)) carbidopa [...] 06/28/24 Hist ory mineral oil 118 ml OK DAILY PRN 03/28/2306/28 History polyethylene glycol 3350 17 17 g PO DAILY 03/28/23 06/28/24 Hi story gram/dose oral powder (Miralax) Have you fallen in the past year?: Yes (result laceration of left forearm) Nurse's Note: pt here with daughters for follow up from ED, fall resulted in left arm laceration, [facility] Medical History Blindness left eye category [...] apnea, a (more content not included)... Normal [facility] Platelet countOrdered By: Vidal Shetty on 06-28-2024 Platelets (Bld) [#/Vol] 247 10*3/uL 150-450 [facility] RBC Auto (Bld) [#/Vol]Ordere d By: Rahul Shetty on 06-28-2024 RBC (Bld) [#/Vol] 3.00 10*6/uL Low 4.2-5.4 [facility] White blood cell (WBC) count Ordered By: Rahul Shetty on 05-22-2025 WBC (Bld) [#/Vol] 6.3 10*3/uL 4.4-11.0 [facility] Anion gap in Serum or Plasma Ordered By: Rahul Shetty on 06-27-2024 Anion gap [Moles/Vol] 10 mmol/L 5-15 [facility] BUN/creatinine ratioOrdered By: Rahul Shetty on 06-27-2024 Urea nitrogen/Creatinine [Mass ratio] 28.9 mg/mg High 10-20 [facility] Bilirubin, totalOrdered By: Rahul Shetty on 06-27-2024 Bilirubin [Mass/Vol] 0.41 mg/dL 0.00-1.30 [facility] Carbon dioxide, total [Moles /volume] in Central venous bloodOrdered By: Rahul Shetty on 06-27-2024 CO2 [Moles/Vol] 25.8 mmol/L 21.0-32.0 [facility] Chloride assayOrdered By: Vidal Shetty on 06-27-2024 Chloride [Moles/Vol] 106 mmol/L 98-108 [facility] Erythrocyte distribution wid th ratioOrdered By: Rahul Shetty on 06-27-2024 Erythrocyte distribution width (RBC) [Ratio] 14.0 % 11.6-14.6 [facility] Erythrocyte distribution wid th standard deviationOrdered By: Rahul Shetty on 06-27-2024 Erythrocyte distribution width (RBC) [Ratio] 46.9 fl High 35.1-43.9 [facility] Glomerular filtration rate ( GFR) estimation/1.73 sq m using serum, plasma, or whole bOrdered By: Rahul Shetty on 06-27-2024 GFR/1.73 sq M.predicted among non-blacks MDRD (S/P/Bld) [Vol rate/Area] 63 mL/min/{1.73_m2} >60 [facility] Comment on above: mL/min/1.73m2 CKD-EP I Creatinine Equation (2020) Hematocrit Auto (Bld) [Volum e fraction]Ordered By: Rahul Shetty on 06-27-2024 Hematocrit (Bld) [Volume fraction] 28.2 % Low 37-47 [facility] Hemoglobin measurementOrdere d By: Rahul Shetty on 06-27-2024 Hemoglobin (Bld) [Mass/Vol] 9.1 g/dL Low 12.0-15.0 [facility] Laboratory - Chemistry and C hemistry - challengeOrdered By: Rahul Shetty on 06-27-2024 AST [Catalytic activity/Vol] 17 U/L <32 [facility] MCV (mean corpuscular volume ) determinationOrdered By: Rahul Shetty on 06-27-2024 MCV (RBC) [Entitic vol] 92.2 fL 81-99 [facility] Mean corpuscular hemoglobin (MCH) determinationOrdered By: Rahul Shetty on 06-27-2024 MCH (RBC) [Entitic mass] 29.7 pg 27.0-32.0 [facility] Mean corpuscular hemoglobin concentration (MCHC) determinationOrdered By: Rahul Shetty on 06-27-2024 MCHC (RBC) [Mass/Vol] 32.3 g/dL 32-36 [facility] Mean platelet volume determi nationOrdered By: Rahul Shetty on 06-27-2024 Platelet mean volume (Bld) [Entitic vol] 10.2 fL 6.2-12.0 [facility] Platelet countOrdered By: Vidal Shetty on 06-27-2024 Platelets (Bld) [#/Vol] 237 10*3/uL 150-450 [facility] Potassium measurement (mass/ volume)Ordered By: Rahul Shetty on 06-27-2024 Potassium (Unsp spec) [Mass/Vol] 4.3 mmol/L 3.3-5.1 [facility] RBC Auto (Bld) [#/Vol]Ordere d By: Rahul Shetty on 06-27-2024 RBC (Bld) [#/Vol] 3.06 10*6/uL Low 4.2-5.4 [facility] Serum creatinine measurement (mass/volume)Ordered By: Rahul Shetty on 06-27-2024 Creatinine [Mass/Vol] 0.93 mg/dL 0.70-1.20 [facility] Serum globulin measurementOr dered By: Rahul Shetty on 06-27-2024 Globulin (S) [Mass/Vol] 2.9 g/dL 2.2-4.2 [facility] Serum glucose measurement (m ass/volume)Ordered By: Rahul Shetty on 06-27-2024 Glucose [Mass/Vol] 89 mg/dL 70-99 [facility] Serum or plasma alanine quiles otransferase (ALT) measurementOrdered By: Rahul Shetty on 06-27-2024 ALT [Catalytic activity/Vol] U/L <35 [facility] Serum or plasma albumin patricia urement (mass/volume)Ordered By: Rahul Shetty on 06-27-2024 Albumin [Mass/Vol] 3.7 g/dL 3.4-4.8 [facility] Serum or plasma albumin/glob ulin mass ratioOrdered By: Rahul Shetty on 06-27-2024 Albumin/Globulin [Mass ratio] 1.3 {ratio} 0.9-2.4 [facility] Serum or plasma alkaline enriqueta sphatase measurementOrdered By: Rahul Shetty on 06-27-2024 ALP [Catalytic activity/Vol] 90 U/L 35-104 [facility] Serum or plasma calcium patricia urement (mass/volume)Ordered By: Rahul Shetty on 06-27-2024 Calcium [Mass/Vol] 9.1 mg/dL 7.6-11.0 [facility] Serum or plasma urea nitroge n measurement (mass/volume)Ordered By: Rahul Shetty on 06-27-2024 Urea nitrogen [Mass/Vol] 27 mg/dL High 4-19 [facility] Sodium levelOrdered By: Clyde Shetty on 06-27-2024 Sodium [Moles/Vol] 142 mmol/L 133-145 [facility] Stool gastrointestinal hemog lobin detection by immunologic methodOrdered By: Rahul Shetty on 06-27-2024 Lower GI hemoglobin IA Ql (Stl) Positive Abnormal [facility] Total proteinOrdered By: Lucien Shetty on 06-27-2024 Protein [Mass/Vol] 6.6 g/dL 5.9-8.4 [facility] White blood cell (WBC) count Ordered By: Rahul Shetty on 06-27-2024 WBC (Bld) [#/Vol] 6.9 10*3/uL 4.4-11.0 [facility] Bilirubin Test strip Ql (U)O rdered By: Rahul Shetty on 06-26-2024 Bilirubin Ql (U) Negative Negative [facility] Ketones Test strip Ql (U)Ord ered By: Rahul Shetty on 06-26-2024 Ketones Ql (U) 5 mg/dl High Negative [facility] Microscopic analysis of urin e for red blood cells (RBC)Ordered By: Rahul Shetty on 06-26-2024 Microscopic analysis of urine for red blood cells (RBC) 0 SEEN /hpf 0-5 [facility] Mucus LM Ql (Urine sed)Order ed By: Rahul Shetty on 06-26-2024 Mucus Ql (Urine sed) 1+ /hpf [facility] Nitrite Test strip Ql (U)Ord ered By: Rahul Shetty on 06-26-2024 Nitrite Ql (U) Negative Negative [facility] Protein Test strip Ql (U)Ord ered By: Rahul Shetty on 06-26-2024 Protein Ql (U) 30 mg/dl High Negative [facility] Squamous epithelial cells de tection in urine sediment by light microscopyOrdered By: Rahul Shetty on 06-26-2024 Epithelial cells.squamous LM Ql (Urine sed) 0-5 SEEN /hpf 5-10 [facility] Urine clarityOrdered By: Lucien Shetty on 06-26-2024 Clarity (U) Clear Clear [facility] Urine color determinationOrd ered By: Rahul Shetty on 06-26-2024 Color (U) Yellow Yellow [facility] Urine cultureOrdered By: Lucien Shetty on 06-26-2024 Bacteria identified Cx Nom (U) Positive Abnormal [facility] Urine glucose detectionOrder ed By: Rahul Shetty on 06-26-2024 Glucose Ql (U) Normal mg/dl Normal [facility] Urine leukocyte esterase det ection by dipstickOrdered By: Rahul Shetty on 06-26-2024 Leukocyte esterase Test strip Ql (U) Negative Negative [facility] Urine pHOrdered By: Rahul jackson on 06-26-2024 pH (U) 5.0 [pH] 5.0 - 8.0 [facility] Urine sediment bacteria coun t by microscopy (number/high power field)Ordered By: Rahul Shetty on 06-26-2024 Bacteria LM.HPF (Urine sed) [#/Area] 1 /[HPF] None Seen [facility] Urine sediment fine granular cast count by microscopy (number/low power field)Ordered By: Rahul Shetty on 06-26-2024 Fine Granular Casts LM.LPF (Urine sed) [#/Area] 0-5 SEEN /lpf 0-5 [facility] Urine specific gravity measu rementOrdered By: Rahul Shetty on 06-26-2024 Specific gravity (U) [Rel density] 1.020 1.002-1.030 [facility] Urine urobilinogen measureme ntOrdered By: Rahul Shetty on 06-26-2024 Urobilinogen Ql (U) Normal mg/dl Normal [facility] White blood cell countOrdere d By: Rahul Shetty on 06-26-2024 White blood cell count 0 SEEN /hpf 0-5 [facility] Emergency Department Summary on 06-25-2024 Emergency Department Summary [facility] Medical Records Department [address] [place] [address] Emergency Department Summary 06/25/24 MR#: [id number] Acct: [id number] Name: ROSARIO MCNALLY Rep #: [id number] : 1945 78 From: Joel Muniz MD PCP: Dr. Yahaira Winn MD Status:DEP ER Location: ED HPI History of Present Illness HPI Narrative: 78-year-old female history of Parkinson disease, anemia. Unwitnessed fall today at [facility]. Has a large forearm laceration/skin tear. Denies [...] of Funtion Narrative Narrative: 78-year-old female from [facility]. Unwitnessed fall. Large skin tear left forearm [...] bisacodyl 10 mg rectal suppository 10 mg OK DAILY PRN 03/28/23 Unkn own History (Dulcolax [...] Unknown Histo ry mineral oil 118 ml OK DAILY PRN 03/28/23 Unkno wn History polyethylene [...] girdle int (more content not included)... Normal [facility] Forearm 2 Viewson 06-25-2024 Forearm 2 Views [facility] [address] [place] [address] Forearm 2 Views MR#: [id number] Acct: [id number] Name: ROSARIO MCNALLY Rep #: [id number] : 1945 F 78 From: Joao Rondon MD PCP: Dr. Yahaira Winn MD Status: REG ER Study: Forearm 2 Views Date of Exam: 06/25/24 Exam# [id number] Ordering Dr: Joel Muniz MD PROCEDURE: FOREARM [...] Yahaira Winn MD; Dr. Joel Muniz MD Organizational Research Consultant: Signed Normal [facility] LABORATORYOrdered By: Cate Galloway on 02-23-2023 Glucose [Mass/Vol] 133 mg/dL High 82 - 115 mg/dL [facility] EMERGENCY REPORTon [address] [facility] EMERGENCY ROOM REPORT NAME ACCOUNT SEX AGE ADMIT DISCHARGE PT MED. RECORD# NUMBER DATE DATE TYPE DALI [id number] F [id number] 02/08/23 02/08/23 3 ROSARIO Lopez [id number] ROOM: ER DATE OF : 1945 DICTATING [...] Grey Connor MD 02/08/23 15:14 JOB #: [id number] Transcribed By: am 02/09/23 07:28 Electronically signed by: MODESTO Connor M.D. 02/22/23 07:05 Page 2 of 2 ROSARIO MCNALLY Emergency Room Report Normal [facility] XR WRIST MINIMUM 3 VIEWS RIG HTon [...] 02/21/2023 12:22:22 PM Ordering Provider: STAN Tirado [facility] ([place]) .Auto Diffon 02-16-2023 Basophil, Absolute 0.0 10 3/mcL Normal 0.0-0.3 [facility] ([place]) Comment on above: Performed By: #### C BC, MG, ADIFF, BMP, ANEU, GFR, ALRON #### [address] [address] Basophils/100 WBC (Bld) 0.6 % Normal 0.0-2.5 [facility] ([place]) Comment on above: Performed By: #### C BC, MG, ADIFF, BMP, ANEU, GFR, LARON #### [address] [address] Eosinophil, Absolute 0.3 10 3/mcL Normal 0.0-0.7 [facility] [place] ([place]) Comment on above: Performed By: #### C BC, MG, ADIFF, BMP, ANEU, GFR, LARON #### [address] [address] Eosinophils/100 WBC (Bld) 4.3 % Normal 0.0-6.0 [facility] ([place]) Comment on above: Performed By: #### C BC, MG, ADIFF, BMP, ANEU, GFR, LARON #### [address] [address] Lymphocyte, Absolute 1.1 10 3/mcL Normal 0.9-4.3 [facility] [place] ([place]) Comment on above: Performed By: #### C BC, MG, ADIFF, BMP, ANEU, GFR, LARON #### [address] [address] Lymphocytes/100 WBC (Bld) 18.4 % Low 20.0-40.0 [facility] ([place]) Comment on above: Performed By: #### C BC, MG, ADIFF, BMP, ANEU, GFR, LARON #### [address] [address] Monocyte, Absolute 0.7 10 3/mcL Normal 0.1-1.4 [facility] ([place]) Comment on above: Performed By: #### C BC, MG, ADIFF, BMP, ANEU, GFR, LARON #### [address] [address] Monocytes/100 WBC (Bld) 11.9 % Normal 2.0-13.0 [facility] ([place]) Comment on above: Performed By: #### C BC, MG, ADIFF, BMP, ANEU, GFR, LARON #### [address] [address] Neutrophils/100 WBC (Bld) 64.8 % Normal 50.0-75.0 [facility] ([place]) Comment on above: Performed By: #### C BC, MG, ADIFF, BMP, ANEU, GFR, LARON #### [address] [address] .GFRon 02-16-2023 GFR >60 Normal [facility] ([place]) Comment on above: Result Comment: GFR Population [...] MG, ADIFF, BMP, ANEU, GFR, LARON #### [address] [address] GFR Non- >60 Normal [facility] ([place]) Comment on above: Result Comment: GFR Population [...] MG, ADIFF, BMP, ANEU, GFR, LARON #### [address] [address] .NEUABSon 02-16-2023 Neutrophil, Absolute 4.0 10 3/mcL Normal 2.3-8.1 [facility] [place] ([place]) Comment on above: Performed By: #### C BC, MG, ADIFF, BMP, ANEU, GFR, LARON #### [address] [address] [facility] BUN/Creatinine Ratio 19.0 ratio Normal 10.0-22.0 [facility] ([place]) Comment on above: Performed By: #### C BC, MG, ADIFF, BMP, ANEU, GFR, LARON #### [address] [address] Calcium [Mass/Vol] 8.8 mg/dL Normal 8.7-10.4 [facility] ([place]) Comment on above: Performed By: #### C BC, MG, ADIFF, BMP, ANEU, GFR, LARON #### [address] [address] Chloride [Moles/Vol] 105 mmol/L Normal 98-110 [facility] ([place]) Comment on above: Performed By: #### C BC, MG, ADIFF, BMP, ANEU, GFR, LARON #### [address] [address] CO2 [Moles/Vol] 33 mmol/L High 22-32 [facility] ([place]) Comment on above: Performed By: #### C BC, MG, ADIFF, BMP, ANEU, GFR, LARON #### [address] [address] Creatinine [Mass/Vol] 0.58 mg/dL Normal 0.50-1.20 [facility] ([place]) Comment on above: Performed By: #### C BC, MG, ADIFF, BMP, ANEU, GFR, LARON #### [place] [id number] Electrolyte Balance 2.0 mEq/L Low 4.0-15.0 [facility] ([place]) Comment on above: Performed By: #### C BC, MG, ADIFF, BMP, ANEU, GFR, LARON #### [address] [address] Glucose [Mass/Vol] 90 mg/dL Normal 82-115 [facility] ([place]) Comment on above: Performed By: #### C BC, MG, ADIFF, BMP, ANEU, GFR, LARON #### [address] [address] Potassium [Moles/Vol] 3.6 mmol/L Normal 3.5-5.0 [facility] ([place]) Comment on above: Performed By: #### C BC, MG, ADIFF, BMP, ANEU, GFR, LARON #### [address] [address] Sodium [Moles/Vol] 140 mmol/L Normal 136-145 [facility] ([place]) Comment on above: Performed By: #### C BC, MG, ADIFF, BMP, ANEU, GFR, LARON #### [place] [id number] Urea nitrogen [Mass/Vol] 11.0 mg/dL Normal 8.0-22.0 [facility] ([place]) Comment on above: Performed By: #### C BC, MG, ADIFF, BMP, ANEU, GFR, LARON #### [place] [address] CBCon 02-16-2023 Erythrocyte distribution width (RBC) [Ratio] 13.8 % Normal 11.5-15.5 [facility] ([place]) Comment on above: Performed By: #### C BC, MG, ADIFF, BMP, ANEU, GFR, LARON #### [place] [address] Hematocrit (Bld) [Volume fraction] 28.4 % Low 34.0-46.0 [facility] ([place]) Comment on above: Performed By: #### C BC, MG, ADIFF, BMP, ANEU, GFR, LARON #### [place] [address] Hgb 9.9 G/dL Low 12.0-16.0 [facility] ([place]) Comment on above: Performed By: #### C BC, MG, ADIFF, BMP, ANEU, GFR, LARON #### [place] [address] MCH (RBC) [Entitic mass] 31.1 pg Normal 27.0-33.0 [facility] ([place]) Comment on above: Performed By: #### C BC, MG, ADIFF, BMP, ANEU, GFR, LARON #### [place] [address] MCHC 34.7 G/dL Normal 32.0-36.0 [facility] ([place]) Comment on above: Performed By: #### C BC, MG, ADIFF, BMP, ANEU, GFR, LARON #### [place] [address] MCV (RBC) [Entitic vol] 89.6 fL Normal 80.0-99.0 [facility] ([place]) Comment on above: Performed By: #### C BC, MG, ADIFF, BMP, ANEU, GFR, LARON #### [address] [address] Platelet 284 10 3/mcL Normal 150-450 [facility] ([place]) Comment on above: Performed By: #### C BC, MG, ADIFF, BMP, ANEU, GFR, LARON #### [address] [address] Platelet mean volume (Bld) [Entitic vol] 7.9 fL Normal 6.6-10.5 [facility] ([place]) Comment on above: Performed By: #### C BC, MG, ADIFF, BMP, ANEU, GFR, LARON #### [place] [address] RBC 3.17 10 6/mcL Low 4.10-5.30 [facility] ([place]) Comment on above: Performed By: #### C BC, MG, ADIFF, BMP, ANEU, GFR, LARON #### [place] [id number] WBC 6.2 10 3/mcL Normal 4.5-10.8 [facility] ([place]) Comment on above: Performed By: #### C BC, MG, ADIFF, BMP, ANEU, GFR, LARON #### [place] [address] LABORATORYOrdered By: SYSTEM SYSTEM on 02-16-2023 Basophils [...] (S/P/Bld) [Vol rate/Area] ml/min/1.73sqm Invalid Interpretation Code DNage Chemistry S Comment on above: Interpretive Data: [...] (S/P/Bld) [Vol rate/Area] ml/min/1.73sqm Invalid Interpretation Code DNage Chemistry S Comment on above: Interpretive Data: [...] Basophil, Absolute 0.0 10 3/mcL Normal 0.0-0.3 [facility] ([place]) Comment on above: Performed By: #### C BC, MG, ADIFF, BMP, ANEU, GFR, LARON #### [address] [address] Basophils/100 WBC (Bld) 0.5 % Normal 0.0-2.5 [facility] ([place]) Comment on above: Performed By: #### C BC, MG, ADIFF, BMP, ANEU, GFR, LARON #### [address] [address] Eosinophil, Absolute 0.2 10 3/mcL Normal 0.0-0.7 [facility] [place] ([place]) Comment on above: Performed By: #### C BC, MG, ADIFF, BMP, ANEU, GFR, LARON #### [address] [address] Eosinophils/100 WBC (Bld) 3.1 % Normal 0.0-6.0 [facility] ([place]) Comment on above: Performed By: #### C BC, MG, ADIFF, BMP, ANEU, GFR, LARON #### [address] [address] Lymphocyte, Absolute 1.4 10 3/mcL Normal 0.9-4.3 [facility] [place] ([place]) Comment on above: Performed By: #### C BC, MG, ADIFF, BMP, ANEU, GFR, LARON #### [address] [address] Lymphocytes/100 WBC (Bld) 19.7 % Low 20.0-40.0 [facility] ([place]) Comment on above: Performed By: #### C BC, MG, ADIFF, BMP, ANEU, GFR, LARON #### [address] [address] Monocyte, Absolute 0.8 10 3/mcL Normal 0.1-1.4 [facility] ([place]) Comment on above: Performed By: #### C BC, MG, ADIFF, BMP, ANEU, GFR, LARON #### [address] [address] Monocytes/100 WBC (Bld) 11.1 % Normal 2.0-13.0 [facility] ([place]) Comment on above: Performed By: #### C BC, MG, ADIFF, BMP, ANEU, GFR, LARON #### [address] [address] Neutrophils/100 WBC (Bld) 65.6 % Normal 50.0-75.0 [facility] ([place]) Comment on above: Performed By: #### C BC, MG, ADIFF, BMP, ANEU, GFR, LARON #### [address] [address] .GFRon 02-15-2023 GFR >60 Normal [facility] ([place]) Comment on above: Result Comment: GFR Population [...] MG, ADIFF, BMP, ANEU, GFR, LARON #### [address] [address] GFR Non- >60 Normal [facility] ([place]) Comment on above: Result Comment: GFR Population [...] MG, ADIFF, BMP, ANEU, GFR, LARON #### [address] [address] .NEUABSon 02-15-2023 Neutrophil, Absolute 4.5 10 3/mcL Normal 2.3-8.1 [facility] [place] ([place]) Comment on above: Performed By: #### C BC, MG, ADIFF, BMP, ANEU, GFR, LARON #### [address] [address] BMPon 02-15-2023 BUN/Creatinine Ratio 17.5 ratio Normal 10.0-22.0 [facility] ([place]) Comment on above: Performed By: #### C BC, MG, ADIFF, BMP, ANEU, GFR, LARON #### [address] [address] Calcium [Mass/Vol] 8.4 mg/dL Low 8.7-10.4 [facility] ([place]) Comment on above: Performed By: #### C BC, MG, ADIFF, BMP, ANEU, GFR, LARON #### [address] [address] Chloride [Moles/Vol] 111 mmol/L High 98-110 [facility] ([place]) Comment on above: Performed By: #### C BC, MG, ADIFF, BMP, ANEU, GFR, LARON #### [address] [address] CO2 [Moles/Vol] 29 mmol/L Normal 22-32 [facility] ([place]) Comment on above: Performed By: #### C BC, MG, ADIFF, BMP, ANEU, GFR, LARON #### [address] [address] Creatinine [Mass/Vol] 0.57 mg/dL Normal 0.50-1.20 [facility] ([place]) Comment on above: Performed By: #### C BC, MG, ADIFF, BMP, ANEU, GFR, LARON #### [place] [id number] Electrolyte Balance 2.0 mEq/L Low 4.0-15.0 [facility] ([place]) Comment on above: Performed By: #### C BC, MG, ADIFF, BMP, ANEU, GFR, LARON #### [place] [id number] Glucose [Mass/Vol] 87 mg/dL Normal 82-115 [facility] ([place]) Comment on above: Performed By: #### C BC, MG, ADIFF, BMP, ANEU, GFR, LARON #### [place] [phone] Potassium [Moles/Vol] 3.6 mmol/L Normal 3.5-5.0 [facility] ([place]) Comment on above: Performed By: #### C BC, MG, ADIFF, BMP, ANEU, GFR, LARON #### [place] [address] Sodium [Moles/Vol] 142 mmol/L Normal 136-145 [facility] ([place]) Comment on above: Performed By: #### C BC, MG, ADIFF, BMP, ANEU, GFR, LARON #### [place] [address] Urea nitrogen [Mass/Vol] 10.0 mg/dL Normal 8.0-22.0 [facility] ([place]) Comment on above: Performed By: #### C BC, MG, ADIFF, BMP, ANEU, GFR, LARON #### [address] [address] CBCon 02-15-2023 Erythrocyte distribution width (RBC) [Ratio] 14.0 % Normal 11.5-15.5 [facility] ([place]) Comment on above: Performed By: #### C BC, MG, ADIFF, BMP, ANEU, GFR, LARON #### [place] [id number] Hematocrit (Bld) [Volume fraction] 31.1 % Low 34.0-46.0 [facility] ([place]) Comment on above: Performed By: #### C BC, MG, ADIFF, BMP, ANEU, GFR, LARON #### [place] [id number] Hgb 10.3 G/dL Low 12.0-16.0 [facility] ([place]) Comment on above: Performed By: #### C BC, MG, ADIFF, BMP, ANEU, GFR, LARON #### [place] [address] MCH (RBC) [Entitic mass] 29.8 pg Normal 27.0-33.0 [facility] ([place]) Comment on above: Performed By: #### C BC, MG, ADIFF, BMP, ANEU, GFR, LARON #### [place] [address] MCHC 33.1 G/dL Normal 32.0-36.0 [facility] ([place]) Comment on above: Performed By: #### C BC, MG, ADIFF, BMP, ANEU, GFR, LARON #### [place] [address] MCV (RBC) [Entitic vol] 90.2 fL Normal 80.0-99.0 [facility] ([place]) Comment on above: Performed By: #### C BC, MG, ADIFF, BMP, ANEU, GFR, LARON #### [place] [address] Platelet 271 10 3/mcL Normal 150-450 [facility] ([place]) Comment on above: Performed By: #### C BC, MG, ADIFF, BMP, ANEU, GFR, LARON #### [place] [address] Platelet mean volume (Bld) [Entitic vol] 8.1 fL Normal 6.6-10.5 [facility] ([place]) Comment on above: Performed By: #### C BC, MG, ADIFF, BMP, ANEU, GFR, LARON #### [place] [address] RBC 3.45 10 6/mcL Low 4.10-5.30 [facility] ([place]) Comment on above: Performed By: #### C BC, MG, ADIFF, BMP, ANEU, GFR, LARON #### [address] [address] WBC 6.9 10 3/mcL Normal 4.5-10.8 [facility] ([place]) Comment on above: Performed By: #### C BC, MG, ADIFF, BMP, ANEU, GFR, LARON #### [address] [address] LABORATORYOrdered By: SYSTEM SYSTEM on 02-15-2023 Basophils [...] 02-15-2023 Magnesium [Mass/Vol] 1.6 mg/dL Normal 1.6-2.4 [facility] ([place]) Comment on above: Performed By: #### C BC, MG, ADIFF, BMP, ANEU, GFR, LARON #### [place] [address] No Panel Informationon 02-14 Culture Urine >100,000 cfu/ml Enterococcus faecalis ANGEL to follow [facility] .Auto Diffon 02-13-2023 Basophil, Absolute 0.0 10 3/mcL Normal 0.0-0.3 [facility] ([place]) Comment on above: Performed By: #### C BC, MG, ADIFF, BMP, ANEU, GFR, LARON #### [address] [address] Basophils/100 WBC (Bld) 0.3 % Normal 0.0-2.5 [facility] ([place]) Comment on above: Performed By: #### C BC, MG, ADIFF, BMP, ANEU, GFR, LARON #### [address] [address] Eosinophil, Absolute 0.3 10 3/mcL Normal 0.0-0.7 [facility] [place] ([place]) Comment on above: Performed By: #### C BC, MG, ADIFF, BMP, ANEU, GFR, LARON #### [address] [address] Eosinophils/100 WBC (Bld) 4.0 % Normal 0.0-6.0 [facility] ([place]) Comment on above: Performed By: #### C BC, MG, ADIFF, BMP, ANEU, GFR, LARON #### [address] [address] Lymphocyte, Absolute 0.9 10 3/mcL Normal 0.9-4.3 [facility] [place] ([place]) Comment on above: Performed By: #### C BC, MG, ADIFF, BMP, ANEU, GFR, ALRON #### [address] [address] Lymphocytes/100 WBC (Bld) 12.1 % Low 20.0-40.0 [facility] ([place]) Comment on above: Performed By: #### C BC, MG, ADIFF, BMP, ANEU, GFR, LARON #### [address] [address] Monocyte, Absolute 0.8 10 3/mcL Normal 0.1-1.4 [facility] ([place]) Comment on above: Performed By: #### C BC, MG, ADIFF, BMP, ANEU, GFR, LARON #### [address] [address] Monocytes/100 WBC (Bld) 11.4 % Normal 2.0-13.0 [facility] ([place]) Comment on above: Performed By: #### C BC, MG, ADIFF, BMP, ANEU, GFR, LARON #### [address] [address] Neutrophils/100 WBC (Bld) 72.2 % Normal 50.0-75.0 [facility] ([place]) Comment on above: Performed By: #### C BC, MG, ADIFF, BMP, ANEU, GFR, LARON #### [address] [address] .GFRon 02-13-2023 GFR >60 Normal [facility] ([place]) Comment on above: Result Comment: GFR Population [...] MG, ADIFF, BMP, ANEU, GFR, LARON #### [address] [address] GFR Non- >60 Normal [facility] ([place]) Comment on above: Result Comment: GFR Population [...] MG, ADIFF, BMP, ANEU, GFR, LARON #### [place] [address] .NEUABSon 02-13-2023 Neutrophil, Absolute 5.2 10 3/mcL Normal 2.3-8.1 [facility] [place] ([place]) Comment on above: Performed By: #### C BC, MG, ADIFF, BMP, ANEU, GFR, LARON #### [address] 02-13-2023 BUN/Creatinine Ratio 20.8 ratio Normal 10.0-22.0 [facility] ([place]) Comment on above: Performed By: #### C BC, MG, ADIFF, BMP, ANEU, GFR, LARON #### [place] [address] Calcium [Mass/Vol] 8.3 mg/dL Low 8.7-10.4 [facility] ([place]) Comment on above: Performed By: #### C BC, MG, ADIFF, BMP, ANEU, GFR, LARON #### [place] [address] Chloride [Moles/Vol] 108 mmol/L Normal 98-110 [facility] ([place]) Comment on above: Performed By: #### C BC, MG, ADIFF, BMP, ANEU, GFR, LARON #### [place] [address] CO2 [Moles/Vol] 25 mmol/L Normal 22-32 [facility] ([place]) Comment on above: Performed By: #### C BC, MG, ADIFF, BMP, ANEU, GFR, LARON #### [place] [address] Creatinine [Mass/Vol] 0.53 mg/dL Normal 0.50-1.20 [facility] ([place]) Comment on above: Performed By: #### C BC, MG, ADIFF, BMP, ANEU, GFR, LARON #### [place] [address] Electrolyte Balance 7.0 mEq/L Normal 4.0-15.0 [facility] ([place]) Comment on above: Performed By: #### C BC, MG, ADIFF, BMP, ANEU, GFR, LARON #### [address] [address] Glucose [Mass/Vol] 96 mg/dL Normal 82-115 [facility] ([place]) Comment on above: Performed By: #### C BC, MG, ADIFF, BMP, ANEU, GFR, LARON #### [place] [id number] Potassium [Moles/Vol] 3.4 mmol/L Low 3.5-5.0 [facility] ([place]) Comment on above: Performed By: #### C BC, MG, ADIFF, BMP, ANEU, GFR, LARON #### [address] [address] Sodium [Moles/Vol] 140 mmol/L Normal 136-145 [facility] ([place]) Comment on above: Performed By: #### C BC, MG, ADIFF, BMP, ANEU, GFR, LARON #### [address] [address] Urea nitrogen [Mass/Vol] 11.0 mg/dL Normal 8.0-22.0 [facility] ([place]) Comment on above: Performed By: #### C BC, MG, ADIFF, BMP, ANEU, GFR, LARON #### [address] [address] CBCon 02-13-2023 Erythrocyte distribution width (RBC) [Ratio] 14.2 % Normal 11.5-15.5 [facility] ([place]) Comment on above: Performed By: #### C BC, MG, ADIFF, BMP, ANEU, GFR, LARON #### [address] [address] Hematocrit (Bld) [Volume fraction] 29.4 % Low 34.0-46.0 [facility] ([place]) Comment on above: Performed By: #### C BC, MG, ADIFF, BMP, ANEU, GFR, LARON #### [place] [address] Hgb 9.9 G/dL Low 12.0-16.0 [facility] ([place]) Comment on above: Performed By: #### C BC, MG, ADIFF, BMP, ANEU, GFR, LARON #### [place] [address] MCH (RBC) [Entitic mass] 30.5 pg Normal 27.0-33.0 [facility] ([place]) Comment on above: Performed By: #### C BC, MG, ADIFF, BMP, ANEU, GFR, LARON #### [place] [address] MCHC 33.6 G/dL Normal 32.0-36.0 [facility] ([place]) Comment on above: Performed By: #### C BC, MG, ADIFF, BMP, ANEU, GFR, LARON #### [place] [address] MCV (RBC) [Entitic vol] 90.6 fL Normal 80.0-99.0 [facility] ([place]) Comment on above: Performed By: #### C BC, MG, ADIFF, BMP, ANEU, GFR, LARON #### [place] [address] Platelet 221 10 3/mcL Normal 150-450 [facility] ([place]) Comment on above: Performed By: #### C BC, MG, ADIFF, BMP, ANEU, GFR, LARON #### [place] [address] Platelet mean volume (Bld) [Entitic vol] 7.6 fL Normal 6.6-10.5 [facility] ([place]) Comment on above: Performed By: #### C BC, MG, ADIFF, BMP, ANEU, GFR, LARON #### [place] [address] RBC 3.24 10 6/mcL Low 4.10-5.30 [facility] ([place]) Comment on above: Performed By: #### C BC, MG, ADIFF, BMP, ANEU, GFR, LARON #### [address] [address] WBC 7.2 10 3/mcL Normal 4.5-10.8 [facility] ([place]) Comment on above: Performed By: #### C BC, MG, ADIFF, BMP, ANEU, GFR, LARON #### [address] [address] LABORATORYOrdered By: SYSTEM SYSTEM on 02-13-2023 Basophils [...] Basophil, Absolute 0.0 10 3/mcL Normal 0.0-0.3 [facility] ([place]) Comment on above: Performed By: #### C BC, MG, ADIFF, BMP, ANEU, GFR, LARON #### [address] [address] Basophils/100 WBC (Bld) 0.5 % Normal 0.0-2.5 [facility] ([place]) Comment on above: Performed By: #### C BC, MG, ADIFF, BMP, ANEU, GFR, LARON #### [address] [address] Eosinophil, Absolute 0.4 10 3/mcL Normal 0.0-0.7 [facility] ([place]) Comment on above: Performed By: #### C BC, MG, ADIFF, BMP, ANEU, GFR, LARON #### [address] [address] Eosinophils/100 WBC (Bld) 5.1 % Normal 0.0-6.0 [facility] ([place]) Comment on above: Performed By: #### C BC, MG, ADIFF, BMP, ANEU, GFR, LARON #### [address] [address] Lymphocyte, Absolute 1.6 10 3/mcL Normal 0.9-4.3 [facility] ([place]) Comment on above: Performed By: #### C BC, MG, ADIFF, BMP, ANEU, GFR, LARON #### [address] [address] Lymphocytes/100 WBC (Bld) 18.9 % Low 20.0-40.0 [facility] ([place]) Comment on above: Performed By: #### C BC, MG, ADIFF, BMP, ANEU, GFR, LARON #### [address] [address] Monocyte, Absolute 0.9 10 3/mcL Normal 0.1-1.4 [facility] ([place]) Comment on above: Performed By: #### C BC, MG, ADIFF, BMP, ANEU, GFR, LARON #### [address] [address] Monocytes/100 WBC (Bld) 11.1 % Normal 2.0-13.0 [facility] ([place]) Comment on above: Performed By: #### C BC, MG, ADIFF, BMP, ANEU, GFR, LARON #### [address] [address] Neutrophils/100 WBC (Bld) 64.4 % Normal 50.0-75.0 [facility] ([place]) Comment on above: Performed By: #### C BC, MG, ADIFF, BMP, ANEU, GFR, LARON #### [address] [address] .GFRon 02-11-2023 GFR >60 Normal [facility] ([place]) Comment on above: Result Comment: GFR Population [...] MG, ADIFF, BMP, ANEU, GFR, LARON #### [address] [address] GFR Non- >60 Normal [facility] ([place]) Comment on above: Result Comment: GFR Population [...] MG, ADIFF, BMP, ANEU, GFR, LARON #### [address] [id number] .NEUABSon 02-11-2023 Neutrophil, Absolute 5.4 10 3/mcL Normal 2.3-8.1 [facility] ([place]) Comment on above: Performed By: #### C BC, MG, ADIFF, BMP, ANEU, GFR, LARON #### [address] [address] BMPon 02-11-2023 BUN/Creatinine Ratio 28.8 ratio High 10.0-22.0 [facility] ([place]) Comment on above: Performed By: #### C BC, MG, ADIFF, BMP, ANEU, GFR, LARON #### [address] [address] Calcium [Mass/Vol] 8.7 mg/dL Normal 8.7-10.4 [facility] ([place]) Comment on above: Performed By: #### C BC, MG, ADIFF, BMP, ANEU, GFR, LARON #### [place] [id number] Chloride [Moles/Vol] 107 mmol/L Normal 98-110 [facility] ([place]) Comment on above: Performed By: #### C BC, MG, ADIFF, BMP, ANEU, GFR, LARON #### [place] [phone] CO2 [Moles/Vol] 29 mmol/L Normal 22-32 [facility] ([place]) Comment on above: Performed By: #### C BC, MG, ADIFF, BMP, ANEU, GFR, LARON #### [place] [address] Creatinine [Mass/Vol] 0.80 mg/dL Normal 0.50-1.20 [facility] ([place]) Comment on above: Performed By: #### C BC, MG, ADIFF, BMP, ANEU, GFR, LARON #### [place] [address] Electrolyte Balance 5.0 mEq/L Normal 4.0-15.0 [facility] ([place]) Comment on above: Performed By: #### C BC, MG, ADIFF, BMP, ANEU, GFR, LARON #### [place] [phone] Glucose [Mass/Vol] 98 mg/dL Normal 82-115 [facility] ([place]) Comment on above: Performed By: #### C BC, MG, ADIFF, BMP, ANEU, GFR, LARON #### [place] [phone] Potassium [Moles/Vol] 3.4 mmol/L Low 3.5-5.0 [facility] ([place]) Comment on above: Performed By: #### C BC, MG, ADIFF, BMP, ANEU, GFR, LARON #### [place] [address] Sodium [Moles/Vol] 141 mmol/L Normal 136-145 [facility] ([place]) Comment on above: Performed By: #### C BC, MG, ADIFF, BMP, ANEU, GFR, LARON #### [place] [address] Urea nitrogen [Mass/Vol] 23.0 mg/dL High 8.0-22.0 [facility] ([place]) Comment on above: Performed By: #### C BC, MG, ADIFF, BMP, ANEU, GFR, LARON #### [place] [id number] CBCon 02-11-2023 Erythrocyte distribution width (RBC) [Ratio] 13.9 % Normal 11.5-15.5 [facility] ([place]) Comment on above: Performed By: #### C BC, MG, ADIFF, BMP, ANEU, GFR, LARON #### [place] [address] Hematocrit (Bld) [Volume fraction] 28.6 % Low 34.0-46.0 [facility] ([place]) Comment on above: Performed By: #### C BC, MG, ADIFF, BMP, ANEU, GFR, LARON #### [place] [address] Hgb 9.9 G/dL Low 12.0-16.0 [facility] ([place]) Comment on above: Performed By: #### C BC, MG, ADIFF, BMP, ANEU, GFR, LARON #### [place] [address] MCH (RBC) [Entitic mass] 31.2 pg Normal 27.0-33.0 [facility] ([place]) Comment on above: Performed By: #### C BC, MG, ADIFF, BMP, ANEU, GFR, LARON #### [place] [phone] MCHC 34.7 G/dL Normal 32.0-36.0 [facility] ([place]) Comment on above: Performed By: #### C BC, MG, ADIFF, BMP, ANEU, GFR, LARON #### [place] [address] MCV (RBC) [Entitic vol] 89.9 fL Normal 80.0-99.0 [facility] ([place]) Comment on above: Performed By: #### C BC, MG, ADIFF, BMP, ANEU, GFR, LARON #### [place] [address] Platelet 201 10 3/mcL Normal 150-450 [facility] ([place]) Comment on above: Performed By: #### C BC, MG, ADIFF, BMP, ANEU, GFR, LARON #### [place] [address] Platelet mean volume (Bld) [Entitic vol] 7.9 fL Normal 6.6-10.5 [facility] ([place]) Comment on above: Performed By: #### C BC, MG, ADIFF, BMP, ANEU, GFR, LARON #### [place] [address] RBC 3.18 10 6/mcL Low 4.10-5.30 [facility] ([place]) Comment on above: Performed By: #### C BC, MG, ADIFF, BMP, ANEU, GFR, LARON #### [place] [address] WBC 8.4 10 3/mcL Normal 4.5-10.8 [facility] ([place]) Comment on above: Performed By: #### C BC, MG, ADIFF, BMP, ANEU, GFR, LARON #### [place] [address] CORTon 02-11-2023 Cortisol Level 17.4 mcg/dL Normal [facility] ([place]) Comment on above: Result Comment: Laron isol AM Reference Range 6.5-26.0 mcg/dL Cortisol PM Reference Range 3.5-15.0 mcg/dL Performed By: #### C BC, MG, ADIFF, BMP, ANEU, GFR, LARON #### [place] [address] LABORATORYOrdered By: SYSTEM SYSTEM on 02-11-2023 Basophils [...] 02-11-2023 Magnesium [Mass/Vol] 1.8 mg/dL Normal 1.6-2.4 [facility] ([place]) Comment on above: Performed By: #### C BC, MG, ADIFF, BMP, ANEU, GFR, LARON #### [address] [address] .Auto Diffon 02-09-2023 Basophil, Absolute 0.0 10 3/mcL Normal 0.0-0.3 [facility] ([place]) Comment on above: Performed By: #### B MP, CBC, ANEU, GFR, ADIFF #### [address] [address] Basophils/100 WBC (Bld) 0.5 % Normal 0.0-2.5 [facility] ([place]) Comment on above: Performed By: #### B MP, CBC, ANEU, GFR, ADIFF #### [address] [address] Eosinophil, Absolute 0.4 10 3/mcL Normal 0.0-0.7 [facility] ([place]) Comment on above: Performed By: #### B MP, CBC, ANEU, GFR, ADIFF #### [address] [address] Eosinophils/100 WBC (Bld) 3.7 % Normal 0.0-6.0 [facility] ([place]) Comment on above: Performed By: #### B MP, CBC, ANEU, GFR, ADIFF #### [address] [address] Lymphocyte, Absolute 1.2 10 3/mcL Normal 0.9-4.3 [facility] ([place]) Comment on above: Performed By: #### B MP, CBC, ANEU, GFR, ADIFF #### [address] [address] Lymphocytes/100 WBC (Bld) 13.0 % Low 20.0-40.0 [facility] ([place]) Comment on above: Performed By: #### B MP, CBC, ANEU, GFR, ADIFF #### [address] [address] Monocyte, Absolute 1.0 10 3/mcL Normal 0.1-1.4 [facility] ([place]) Comment on above: Performed By: #### B MP, CBC, ANEU, GFR, ADIFF #### [address] [address] Monocytes/100 WBC (Bld) 10.7 % Normal 2.0-13.0 [facility] ([place]) Comment on above: Performed By: #### B MP, CBC, ANEU, GFR, ADIFF #### [address] [address] Neutrophils/100 WBC (Bld) 72.1 % Normal 50.0-75.0 [facility] ([place]) Comment on above: Performed By: #### B MP, CBC, ANEU, GFR, ADIFF #### [address] [address] .GFRon 02-09-2023 GFR >60 Normal [facility] ([place]) Comment on above: Result Comment: GFR Population [...] MG, ADIFF, BMP, ANEU, GFR, LARON #### [address] [address] GFR Non- >60 Normal [facility] ([place]) Comment on above: Result Comment: GFR Population [...] MG, ADIFF, BMP, ANEU, GFR, LARON #### [address] [address] .NEUABSon 02-09-2023 Neutrophil, Absolute 6.9 10 3/mcL Normal 2.3-8.1 [facility] ([place]) Comment on above: Performed By: #### C BC, MG, ADIFF, BMP, ANEU, GFR, LARON #### [address] [address] BMPon 02-09-2023 BUN/Creatinine Ratio 27.1 ratio High 10.0-22.0 [facility] ([place]) Comment on above: Order Comment: Routi ne for 0501 the morning of patient admission. Performed By: #### C BC, MG, ADIFF, BMP, ANEU, GFR, LARON #### [place] [address] Calcium [Mass/Vol] 9.0 mg/dL Normal 8.7-10.4 [facility] ([place]) Comment on above: Order Comment: Routi ne for 0501 the morning of patient admission. Performed By: #### C BC, MG, ADIFF, BMP, ANEU, GFR, LARON #### [place] [address] Chloride [Moles/Vol] 109 mmol/L Normal 98-110 [facility] ([place]) Comment on above: Order Comment: Routi ne for 0501 the morning of patient admission. Performed By: #### C BC, MG, ADIFF, BMP, ANEU, GFR, LARON #### [place] [address] CO2 [Moles/Vol] 27 mmol/L Normal 22-32 [facility] ([place]) Comment on above: Order Comment: Routi ne for 0501 the morning of patient admission. Performed By: #### C BC, MG, ADIFF, BMP, ANEU, GFR, LARON #### [place] [address] Creatinine [Mass/Vol] 0.70 mg/dL Normal 0.50-1.20 [facility] ([place]) Comment on above: Order Comment: Routi ne for 0501 the morning of patient admission. Performed By: #### C BC, MG, ADIFF, BMP, ANEU, GFR, LARON #### [place] [address] Electrolyte Balance 5.0 mEq/L Normal 4.0-15.0 [facility] ([place]) Comment on above: Order Comment: Routi ne for 0501 the morning of patient admission. Performed By: #### C BC, MG, ADIFF, BMP, ANEU, GFR, LARON #### [place] [phone] Glucose [Mass/Vol] 102 mg/dL Normal 82-115 [facility] ([place]) Comment on above: Order Comment: Routi ne for 0501 the morning of patient admission. Performed By: #### C BC, MG, ADIFF, BMP, ANEU, GFR, LARON #### [place] [address] Potassium [Moles/Vol] 3.4 mmol/L Low 3.5-5.0 [facility] ([place]) Comment on above: Order Comment: Routi ne for 0501 the morning of patient admission. Performed By: #### C BC, MG, ADIFF, BMP, ANEU, GFR, LARON #### [place] [phone] Sodium [Moles/Vol] 141 mmol/L Normal 136-145 [facility] ([place]) Comment on above: Order Comment: Routi ne for 0501 the morning of patient admission. Performed By: #### C BC, MG, ADIFF, BMP, ANEU, GFR, LARON #### [place] [phone] Urea nitrogen [Mass/Vol] 19.0 mg/dL Normal 8.0-22.0 [facility] ([place]) Comment on above: Order Comment: Routi ne for 0501 the morning of patient admission. Performed By: #### C BC, MG, ADIFF, BMP, ANEU, GFR, LARON #### [place] [phone] CBCon 02-09-2023 Erythrocyte distribution width (RBC) [Ratio] 14.0 % Normal 11.5-15.5 [facility] ([place]) Comment on above: Order Comment: Routi ne for 0501 the morning of patient admission. Performed By: #### B MP, CBC, ANEU, GFR, ADIFF #### [place] [phone] Hematocrit (Bld) [Volume fraction] 28.5 % Low 34.0-46.0 [facility] ([place]) Comment on above: Order Comment: Routi ne for 0501 the morning of patient admission. Performed By: #### B MP, CBC, ANEU, GFR, ADIFF #### [place] [address] Hgb 9.6 G/dL Low 12.0-16.0 [facility] ([place]) Comment on above: Order Comment: Routi ne for 0501 the morning of patient admission. Performed By: #### B MP, CBC, ANEU, GFR, ADIFF #### [place] [address] MCH (RBC) [Entitic mass] 30.4 pg Normal 27.0-33.0 [facility] ([place]) Comment on above: Order Comment: Routi ne for 0501 the morning of patient admission. Performed By: #### B MP, CBC, ANEU, GFR, ADIFF #### [place] [address] MCHC 33.8 G/dL Normal 32.0-36.0 [facility] ([place]) Comment on above: Order Comment: Routi ne for 0501 the morning of patient admission. Performed By: #### B MP, CBC, ANEU, GFR, ADIFF #### [place] [address] MCV (RBC) [Entitic vol] 89.7 fL Normal 80.0-99.0 [facility] ([place]) Comment on above: Order Comment: Routi ne for 0501 the morning of patient admission. Performed By: #### B MP, CBC, ANEU, GFR, ADIFF #### [place] [phone] Platelet 186 10 3/mcL Normal 150-450 [facility] ([place]) Comment on above: Order Comment: Routi ne for 0501 the morning of patient admission. Performed By: #### B MP, CBC, ANEU, GFR, ADIFF #### [place] [phone] Platelet mean volume (Bld) [Entitic vol] 8.0 fL Normal 6.6-10.5 [facility] ([place]) Comment on above: Order Comment: Routi ne for 0501 the morning of patient admission. Performed By: #### B MP, CBC, ANEU, GFR, ADIFF #### [place] [phone] [address] [place] [address] RBC 3.18 10 6/mcL Low 4.10-5.30 [facility] ([place]) Comment on above: Order Comment: Routi ne for 0501 the morning of patient admission. Performed By: #### B MP, CBC, ANEU, GFR, ADIFF #### [address] [address] WBC 9.5 10 3/mcL Normal 4.5-10.8 [facility] ([place]) Comment on above: Order Comment: Routi ne for 0501 the morning of patient admission. Performed By: #### B MP, CBC, ANEU, GFR, ADIFF #### [address] [address] [address] THORAX W/ CONTRASTon 01-0 CT THORAX [...] Report By: Deon Davis Electronically signed By Hakn Brooks MD Dictated Date: 02/08/2023 10:08:04 PM Prelim Date: 02/08/2023 10:17:28 PM Sign Date: 02/08/2023 10:26:14 PM Ordering Provider: LIZ SY [facility] ([place]) LABORATORYOrdered By: Keeley Hester on 02-09-2023 Appearance [...] SS UAon 02-09-2023 Color (U) Yellow Normal [facility] ([place]) Comment on above: Performed By: #### C BC, MG, ADIFF, BMP, ANEU, GFR, LARON #### [address] [address] Glucose (U) [Mass/Vol] Negative Normal Negative [facility] ([place]) Comment on above: Performed By: #### C BC, MG, ADIFF, BMP, ANEU, GFR, LARON #### [address] [address] Ketones Ql (U) 15 mg/dL Abnormal Neg-Trace [facility] ([place]) Comment on above: Performed By: #### C BC, MG, ADIFF, BMP, ANEU, GFR, LARON #### [address] [address] UA Appear Clear Normal Clear [facility] ([place]) Comment on above: Performed By: #### C BC, MG, ADIFF, BMP, ANEU, GFR, LARON #### [address] [address] UA Blood Trace Normal Neg-Trace [facility] ([place]) Comment on above: Performed By: #### C BC, MG, ADIFF, BMP, ANEU, GFR, LARON #### [address] [address] UA Leuk Est Moderate Abnormal Negative [facility] ([place]) Comment on above: Performed By: #### C BC, MG, ADIFF, BMP, ANEU, GFR, LARON #### [address] [address] UA Nitrite Negative Normal Negative [facility] ([place]) Comment on above: Performed By: #### C BC, MG, ADIFF, BMP, ANEU, GFR, LARON #### [address] [address] UA pH 7.0 Normal 5.0 - 8.0 [facility] ([place]) Comment on above: Performed By: #### C BC, MG, ADIFF, BMP, ANEU, GFR, LARON #### [address] [address] UA Protein Negative Normal Negative [facility] ([place]) Comment on above: Performed By: #### C BC, MG, ADIFF, BMP, ANEU, GFR, LARON #### [address] [address] UA Spec Grav 1.025 Normal 1.006-1.029 [facility] ([place]) Comment on above: Performed By: #### C BC, MG, ADIFF, BMP, ANEU, GFR, LARON #### [place] [address] UA Specimen Type Not Given Normal [facility] ([place]) Comment on above: Performed By: #### C BC, MG, ADIFF, BMP, ANEU, GFR, LARON #### [address] [address] UA Urobilinogen 1.0 E.U./dL Normal 0.2-1.0 [facility] ([place]) Comment on above: Performed By: #### C BC, MG, ADIFF, BMP, ANEU, GFR, LARON #### [place] [address] Urobilinogen (U) [Mass/Vol] Negative Normal Neg-Trace [facility] ([place]) Comment on above: Performed By: #### C BC, MG, ADIFF, BMP, ANEU, GFR, LARON #### [address] [address] UAMICon 02-09-2023 UA Bacteria 1+ /hpf Abnormal Negative [facility] ([place]) Comment on above: Performed By: #### C BC, MG, ADIFF, BMP, ANEU, GFR, LARON #### [address] [address] UA RBC 10-20 Abnormal 0-2 [facility] ([place]) Comment on above: Performed By: #### C BC, MG, ADIFF, BMP, ANEU, GFR, LARON #### [address] [address] UA Squam Epithelial 5-10 Normal 0-20 [facility] ([place]) Comment on above: Performed By: #### C BC, MG, ADIFF, BMP, ANEU, GFR, LARON #### [address] [address] UA WBC 3-5 Normal 0-5 [facility] ([place]) Comment on above: Performed By: #### C BC, MG, ADIFF, BMP, ANEU, GFR, LARON #### [address] [address] Paula 02-08-2023 Ethanol Level <10.0 Normal [facility] ([place]) Comment on above: Performed By: #### A LC #### [place] [id number] C-REACTIVE PROTEINon 024 CRP 3.46 mg/dl High 0.00 - 0.90 [facility] Comment on above: Performed By: #### 2 87455 #### [facility],[address] [place] [address] CBC + DIFFon 02-08-2023 Baso # 0.00 x10EE3/UL Normal 0.00 - 0.10 [facility] Comment on above: Performed By: #### 2 45518 #### [facility],[address] [place] [address] Basophils/100 WBC (Bld) 0.3 % Normal 0.0 - 2.0 [facility] Comment on above: Performed By: #### 2 40048 #### [facility],[address] [place] [address] CBC + DIFF Normal [facility] Comment on above: Result Comment: CBC- COMPLETE BLOOD COUNT Performed By: #### 2 11724 #### [facility],[address] [place] [address] EO # 0.20 x10EE3/UL Normal 0.00 - 0.50 [facility] Comment on above: Performed By: #### 2 24941 #### [facility],[address] [place] [address] Eosinophils/100 WBC (Bld) 2.5 % Normal 0.0 - 7.0 [facility] Comment on above: Performed By: #### 2 05397 #### [facility],[address] [place] [address] Erythrocyte distribution width (RBC) [Ratio] 14.3 % Normal 12.0 - 15.6 [facility] Comment on above: Performed By: #### 2 98134 #### [facility],[address] [place] [address] Hematocrit (Bld) [Volume fraction] 31.3 % Low 34.0 - 46.0 [facility] Comment on above: Performed By: #### 2 05487 #### [facility],[address] [place] [address] Hemoglobin (Bld) [Mass/Vol] 10.1 g/dL Low 12.0 - 16.0 [facility] Comment on above: Performed By: #### 2 19252 #### [facility],[address] [place] [address] Lymph # 0.80 x10EE3/UL Normal 0.80 - 2.80 [facility] Comment on above: Performed By: #### 2 33439 #### [facility],[address] [place] [address] Lymphocytes/100 WBC (Bld) 9.1 % Low 20.0 - 45.0 [facility] Comment on above: Performed By: #### 2 77050 #### [facility],[address] [place] [address] MANUAL DIFF N/A Normal [facility] Comment on above: Performed By: #### 2 77179 #### [facility],[address] [place] [address] MCH (RBC) [Entitic mass] 30 pg Normal 27 - 33 [facility] Comment on above: Performed By: #### 2 62937 #### [facility],[address] [place] [address] MCHC 32 X10 3 Normal 32 - 36 [facility] Comment on above: Performed By: #### 2 45851 #### [facility],[address] [place], [place] [id number] MCV (RBC) [Entitic vol] 91 fL Normal 80 - 99 [facility] Comment on above: Performed By: #### 2 33904 #### [facility],[address] [place] [address] Placer # 0.80 x10EE3/UL Normal 0.20 - 1.00 [facility] Comment on above: Performed By: #### 2 42888 #### [facility],[address] [place] [address] MONOS % 8.9 % Normal 0.0 - 10.0 [facility] Comment on above: Performed By: #### 2 19956 #### [facility],[address] [place], [place] [id number] Morphology Andre (Bld) [Interp] N/A Normal [facility] Comment on above: Result Comment: {CD] Performed By: #### 2 27318 #### [facility],[address] [place] [address] Neut # 7.40 x10EE3/UL High 1.50 - 7.10 [facility] Comment on above: Performed By: #### 2 56486 #### [facility],[address] [place], [place] [id number] Neutrophils/100 WBC (Bld) 79.2 % High 46.0 - 76.0 [facility] Comment on above: Performed By: #### 2 38066 #### [facility],[address] [place] [address] PLATELET 224 x10EE3/UL Normal 150 - 450 [facility] Comment on above: Performed By: #### 2 84842 #### [facility],[address] [place] [address] Platelet mean volume (Bld) [Entitic vol] 8.2 fL Normal 6.6 - 10.5 [facility] Comment on above: Result Comment: AUTO MATED DIFFERENTIAL Performed By: #### 2 99256 #### [facility],[address] [place] [address] RBC 3.43 x 10EE6/UL Low 4.10 - 5.30 [facility] Comment on above: Performed By: #### 2 28759 #### [facility],[address] [place] [address] WBC 9.3 x 10EE3/UL Normal 4.5 - 10.8 [facility] Comment on above: Performed By: #### 2 02864 #### [facility],[address] [place], [place] [phone] CMP with eGFRon 02-08-2023 AGE 77 years Normal [facility] Comment on above: Performed By: #### 2 89210 #### [facility],[address] [place] [address] Albumin [Mass/Vol] 3.3 g/dL Low 3.4 - 5.0 [facility] Comment on above: Performed By: #### 2 43550 #### [facility],[address] [place] [address] Albumin/Globulin [Mass ratio] 0.8 {ratio} Low 0.9 - 1.6 [facility] Comment on above: Performed By: #### 2 89147 #### [facility],[address] [place] [address] ALK PHOS 85 U/L Normal 46 - 116 [facility] Comment on above: Performed By: #### 2 63356 #### [facility],[address] [place] [address] ALT [Catalytic activity/Vol] 8 U/L Low 14 - 59 [facility] Comment on above: Performed By: #### 2 16105 #### [facility],[address] [place] [address] Anion gap [Moles/Vol] 13 mmol/L Normal 10 - 20 [facility] Comment on above: Performed By: #### 2 01995 #### [facility],[address] [place] [address] AST [Catalytic activity/Vol] 26 U/L Normal 13 - 39 [facility] Comment on above: Performed By: #### 2 17823 #### [facility],[address] [place] [address] B/C RATIO 26 ratio Normal 0 - 30 [facility] Comment on above: Performed By: #### 2 95184 #### [facility],[address] [place] [address] Bilirubin [Mass/Vol] 1.0 mg/dL Normal 0.2 - 1.0 [facility] Comment on above: Performed By: #### 2 73270 #### [facility],[address] [place] [address] Calcium [Mass/Vol] 9.5 mg/dL Normal 8.5 - 10.1 [facility] Comment on above: Performed By: #### 2 65247 #### [facility],[address] [place] [address] Chloride [Moles/Vol] 103 mmol/L Normal 98 - 107 [facility] Comment on above: Performed By: #### 2 02258 #### [facility],[address] [place] [address] CMP with eGFR Normal [facility] Comment on above: Result Comment: COMP REHENSIVE METABOLIC PANEL Performed By: #### 2 88340 #### [facility],[address] [place] [address] CO2 [Moles/Vol] 28.9 mmol/L Normal 21.0 - 32.0 [facility] Comment on above: Performed By: #### 2 16184 #### [facility],[address] [place] [address] Creatinine [Mass/Vol] 1.02 mg/dL Normal 0.55 - 1.02 [facility] Comment on above: Performed By: #### 2 79056 #### [facility],[address] [place] [address] eGFR 53 ML/MINUTE Low 60 - 999 [facility] Comment on above: Performed By: #### 2 01498 #### [facility],[address] [place] [address] GFR/1.73 sq M.predicted among non-blacks MDRD (S/P/Bld) [Vol rate/Area] mL/min/{1.73_m2} Normal 60 - 999 [facility] Comment on above: Result Comment: ACCO RDING TO THE NATIONAL KIDNEY DISEASE EDUCATION PROGRAM(NKDE), A NORMAL eGFR IS A VALUE GREATER THAN OR EQUAL TO 60 ML/MIN/1.73 SQ METERS. CHRONIC KIDNEY DISEASE: <60mL/MIN/1.73 SQ METERS KIDNEY FAILURE: <15mL/MIN/1.73 SQ METERS THIS TEST SHOULD ONLY BE USED FOR PATIENTS 18 YEARS OF AGE AND OLDER. Performed By: #### 2 34018 #### [facility],[address] [place] [address] Globulin (S) [Mass/Vol] 4.1 g/dL High 1.5 - 3.8 [facility] Comment on above: Performed By: #### 2 09648 #### [facility],[address] [place] [address] Glucose [Mass/Vol] 95 mg/dL Normal 74 - 106 [facility] Comment on above: Performed By: #### 2 99003 #### [facility],[address] [place] [address] Potassium [Moles/Vol] 3.8 mmol/L Normal 3.5 - 5.1 [facility] Comment on above: Performed By: #### 2 63446 #### [facility],[address] [place] [address] Protein [Mass/Vol] 7.4 g/dL Normal 6.4 - 8.2 [facility] Comment on above: Performed By: #### 2 92584 #### [place] [address] Sodium [Moles/Vol] 141 mmol/L Normal 136 - 145 [facility] Comment on above: Performed By: #### 2 08668 #### [place] [address] Urea nitrogen [Mass/Vol] 27 mg/dL High 7 - 18 [facility] Comment on above: Performed By: #### 2 79667 #### [place] [address] CORONAVIRUS (SARS) ANTIGEN T ESTon 02-08-2023 EXTERNAL QC DONE? YES Normal [facility] Comment on above: Performed By: #### 2 61410 ####[place] [address] INTERNAL CONTROL PASS Normal [facility] Comment on above: Performed By: #### 2 72584 ####[place] [address] SARS ANTIGEN Negative Normal NORMAL: NEGATIVE [facility] Comment on above: Performed By: #### 2 96980 ####[place] [address] SEND TO ? NO Normal [facility] Comment on above: Result Comment: SARS -CoV-2 THIS TEST IS BEING USED UNDER THE FDA EUA PROCEDURE. THIS ASSAY HAS BEEN VALIDATED AT [facility] FOR USE WITH NASAL AND NASOPHARYNGEAL SWAB SPECIMENS. INTERPRETIVE DATA TEST RESULTS SHOULD ALWAYS BE CONSIDERED IN THE CONTEXT OF CLINICAL OBSERVATIONS AND EPIDEMIOLOGICAL DATA IN MAKING FINAL DIAGNOSIS AND PATIENT MANAGEMENT DECISIONS. PATIENT MANAGEMENT SHOULD FOLLOW CURRENT CDC GUIDELINES. THE KENYN SARS ANTIGEN DON DOES NOT DIFFERENTIATE BETWEEN [...] PUBLIC HEALTH AUTHORITIES. Performed By: #### 2 91193 ####[place] [address] CT BRAIN W/O CONTRASTon CT BRAIN W/O CONTRAST [place] [address] Patient: ROSARIO MCNALLY Phone#: : 1945 Age: 77 Gender: F Pt. Type: ER Account: [id number] Location: [facility] Ordering: RGEY CONNOR Exam Date: 02/08/2023/13:38 Family Phys: CHICO COLLIER Charge Code: 620252 Physician: Mono Order #: [id number] Dose#: [id number] mGy PROCEDURE: CT BRAIN WITHOUT CONTRAST COMPARISON: [facility], CT, BRAIN W/O CON, 06/10/2022, 21:04. INDICATIONS: [...] significant mucosal thickening or fluid. ORBITS: Left chilkat ocular lenses absent. OTHER: Atherosclerotic calcifications of the intracranial arteries. CONCLUSION: 1. Right occipital subarachnoid hemorrhage. This finding was communicated by telephone to Dr. Grey Connor at the dictation time shown below. 2. Global atrophy and atherosclerosis Dictated by: Adilene Bui MD on 02/08/2023 at 13:50 Approved by: Adilene Bui MD on 02/08/2023 at 13:59 Normal [facility] CT SPINE CERVICAL W/O CONTRA STon [...] 02/08/2023 6:55:16 PM Ordering Provider: LIZ SY [facility]) LABORATORYOrdered By: SYSTEM SYSTEM on 02-08-2023 Ethanol [Mass/Vol] mg/dL Invalid Interpretation Code AH ADM SS LIPASEon 02-08-2023 Lipase [Catalytic activity/Vol] 20.0 U/L Normal 15.0 - 78.0 [facility] Comment on above: Result Comment: *PLE ASE NOTE THAT RANGES FOR LIPASE HAVE CHANGED OF 02/04/23 DUE TO AN ASSAY UPDATE BY THE BIOMEDICAL SPECIALIST.THE NEW ASSAY RANGE IS 6-250 U/L, WITH A REFERENCE RANGE OF 16-77 U/L. Performed By: #### 2 70894 #### [facility],[address] [place], [place] [id number] TROPONIN I, HIGH SENSITIVITY on 02-08-2023 HS TROPONIN 13.2 pg/mL Normal 0.0 - 51.4 [facility] Comment on above: Performed By: #### 2 82612 #### [facility],[address] [place], [place] [id number] TSHon 02-08-2023 TSH Qn 1.80 m[IU]/L Normal 0.35 - 3.74 [facility] Comment on above: Performed By: #### 2 47533 #### [facility],[address] [place] [address] URINALYSISon 02-08-2023 Amorphous NONE Normal [facility] Comment on above: Performed By: #### 2 72232 ####[facility],[address] [place] [address] 68330 Bacteria 1+ Normal [facility] Comment on above: Performed By: #### 2 22861 ####[facility],[address] [place] [address] 80269 Bilirubin Ql (U) Negative Normal NORMAL: NEGATIVE [facility] Comment on above: Performed By: #### 2 27429 ####[facility],[address] [place] [address] 24367 Casts NONE Normal [facility] Comment on above: Performed By: #### 2 50603 ####[facility],[address] [place] [address] 26689 Clarity (U) clear Normal NORMAL: CLEAR [facility] Comment on above: Performed By: #### 2 36961 ####[facility],[address] [place] [address] 50481 Color (U) keeley Normal NORMAL: YELLOW [facility] Comment on above: Performed By: #### 2 79215 ####[facility],[address] [place] [address] 62026 Crystals LM Nom (Urine sed) NONE Normal [facility] Comment on above: Performed By: #### 2 36629 ####[facility],[address] [place] [address] 33972 Epi Cells MODERATE Normal [facility] Comment on above: Performed By: #### 2 75930 ####[facility],[address] [place] [address] 51876 Glucose Ql (U) NORM Normal NORMAL: NORMAL [facility] Comment on above: Performed By: #### 2 90369 ####[facility],[address] [place] [address] 15423 Hemoglobin Ql (U) 50 Abnormal NORMAL: NEGATIVE [facility] Comment on above: Performed By: #### 2 78602 ####[facility],[address] [place] [address] 22377 Ketone 5 Abnormal NORMAL: NEGATIVE [facility] Comment on above: Performed By: #### 2 90790 ####[facility],[address] [place] [address] 21069 Leukocytes 25 Abnormal NORMAL: NEGATIVE [facility] Comment on above: Performed By: #### 2 71778 ####[facility],[address] [place], [place] [phone] Mucous NONE Normal [facility] Comment on above: Performed By: #### 2 86040 ####[facility],[address] [place] [address] 50533 Nitrite Ql (U) Negative Normal NORMAL: NEGATIVE [facility] Comment on above: Performed By: #### 2 13690 ####[facility],[address] [place] [address] 53105 pH (U) 6 [pH] Normal NORMAL: 5.0-8.0 [facility] Comment on above: Performed By: #### 2 86417 ####[facility],[address] [place] [address] 21586 Protein Ql (U) 15 Abnormal NORMAL: NEGATIVE [facility] Comment on above: Performed By: #### 2 85088 ####[facility],[address] [place] [address] 39990 Rbc 0-5 Normal 0-3/hpf [facility] Comment on above: Performed By: #### 2 31912 ####[facility],[address] [place] [address] 11878 Sp Jackson 1.015 Normal NORMAL: 1.010-1.030 [facility] Comment on above: Performed By: #### 2 96713 ####[facility],[address] [place] [address] Specimen Type UNSPECIFIED Normal [facility] Comment on above: Performed By: #### 2 70284 ####[facility],[address] [place] [address] Urinalysis dipstick W Reflex Microscopic panel (U) SEE BELOW Normal [facility] Comment on above: Result Comment: MICR OSCOPIC Performed By: #### 2 08479 ####[facility],[address] [place] [address] Urobilinog 1 Abnormal NORMAL: NORMAL [facility] Comment on above: Performed By: #### 2 67855 ####[facility],[address] [place] [address] Wbc 1-5 Normal 0-5/hpf [facility] Comment on above: Performed By: #### 2 02933 ####[facility],[address] [place] [address] Yeast NONE Normal [facility] Comment on above: Performed By: #### 2 59817 ####[facility],[address] [place], [place] [phone] XR CHEST 1 VIEWon 02-08-2023 XR CHEST [...] 02/08/2023 6:53:03 PM Ordering Provider: LIZ Tirado [facility] (ID) HAND RT MIN 3 VIEWSon 2022 HAND RT MIN [address] [address] Patient: ROSARIO MCNALLY Phone#: : 1945 Age: 77 Gender: F Pt. Type: Out Account: [id number] Location: 052 Ordering: ERIK CHRISTIE Exam Date: 01/26/2023/15:00 Family Phys: Charge Code: 826734 Physician: Mono Order #: [id number] Dose#: PROCEDURE: X-RAY HAND RT COMPLETE MIN [...] Simon MD on 01/26/2023 at 15:28 Normal [facility] CBC (INCLUDES DIFF/PLT)on Basophils (Bld) [#/Vol] 0.027 10*3/uL Normal 0-200 [facility] Comment on above: Performed By: #### 1 0231, 1977, 1040 #### [facility] [address] [address] [employer] Professional: Brayden England MD Basophils/100 WBC (Bld) 0.4 % Normal [facility] Comment on above: Performed By: #### 1 0231, 1648, 9375 #### [facility] [address] [place] [address] [employer]: Brayden England MD Eosinophils (Bld) [#/Vol] 0.168 10*3/uL Normal 15-500 [facility] Comment on above: Performed By: #### 1 0231, 6399, 7600 #### [facility] of [address], [address] [place] [address] [employer]: Brayden England MD Eosinophils/100 WBC (Bld) 2.5 % Normal [facility] Comment on above: Performed By: #### 1 023, 63, 7600 #### [facility] of [place] [address] [employer] Professional: Brayden England MD Erythrocyte distribution width (RBC) [Ratio] 13.2 % Normal 11.0-15.0 [facility] Comment on above: Performed By: #### 1 230, 63, 7600 #### [facility] of [address], [address] [place] [address] [employer] Professional: Brayden England MD Hematocrit (Bld) [Volume fraction] 36.1 % Normal 35.0-45.0 [facility] Comment on above: Performed By: #### 1 023, 63, 7600 #### [facility] of [place] [address] [employer] Professional: Brayden England MD Hemoglobin (Bld) [Mass/Vol] 11.0 g/dL Low 11.7-15.5 [facility] Comment on above: Performed By: #### 1 023, 63, 7600 #### [facility] of [address], [address] [place] [address] [employer] Professional: Brayden England MD Lymphocytes (Bld) [#/Vol] 1.467 10*3/uL Normal 850-3900 [facility] Comment on above: Performed By: #### 1 023, 63, 7600 #### [facility] of [place] [address] [employer] Professional: Brayden England MD Lymphocytes/100 WBC (Bld) 21.9 % Normal [facility] Comment on above: Performed By: #### 1 023, 63, 7600 #### [facility] of [place] [address] [employer] Professional: Brayden England MD MCH (RBC) [Entitic mass] 28.7 pg Normal 27.0-33.0 [facility] Comment on above: Performed By: #### 1 023, 63, 7600 #### [facility] of [place] [address] [employer] Professional: Brayden England MD MCHC (RBC) [Mass/Vol] 30.5 g/dL Low 32.0-36.[address] [facility] Comment on above: Performed By: #### 1 230, 63, 7600 #### [facility] of [place] [address] [employer] Professional: Brayden England MD MCV (RBC) [Entitic vol] 94.3 fL Normal 80.0-100.0 [facility] Comment on above: Performed By: #### 1 230, 63, 7600 #### [facility] of [place] [address] [employer] Professional: Brayden England MD Monocytes (Bld) [#/Vol] 0.583 10*3/uL Normal 200-950 [facility] Comment on above: Performed By: #### 1 023, 63, 7600 #### [facility] of [place] [address] [employer] Professional: Brayden England MD Monocytes/100 WBC (Bld) 8.7 % Normal [facility] Comment on above: Performed By: #### 1 023, 6399, 7600 #### [facility] of [place] [address] [employer] Professional: Brayden England MD Neutrophils (Bld) [#/Vol] 4.456 10*3/uL Normal 6241-0311 [facility] Comment on above: Performed By: #### 1 0231, 6399, 7600 #### [facility] of [place] [address] [employer] Professional: Brayden England MD Neutrophils/100 WBC (Bld) 66.5 % Normal [facility] Comment on above: Performed By: #### 1 0231, 6399, 7600 #### [facility] of [place] [address] [employer] Professional: Brayden England MD Platelet mean volume (Bld) [Entitic vol] 10.7 fL Normal 7.5-12.5 [facility] Comment on above: Performed By: #### 1 0231, 63, 7600 #### [facility] of [place] [address] [employer] Professional: Brayden England MD Platelets (Bld) [#/Vol] 252 10*3/uL Normal 140-400 [facility] Comment on above: Performed By: #### 1 0231, 63, 7600 #### [facility] of [place] [address] [employer] Professional: Brayden England MD RBC (Bld) [#/Vol] 3.83 10*6/uL Normal 3.80-5.10 [facility] Comment on above: Performed By: #### 1 0231, 63, 7600 #### [facility] of [place] [address] [employer] Professional: Brayden England MD WBC (Bld) [#/Vol] 6.7 10*3/uL Normal 3.8-10.8 [facility] Comment on above: Performed By: #### 1 0231, 6399, 7600 #### [facility] of [place] [address] [employer] Professional: Brayden England MD COMPREHENSIVE METABOLIC PANE [facility] 12-28-2022 Albumin [Mass/Vol] 3.9 g/dL Normal 3.6-5.1 [facility] Comment on above: Performed By: #### 1 0231, 6399, 7600 #### [facility] of [address], [address] [place] [address] [employer] Professional: Brayden England MD Albumin/Globulin [Mass ratio] 1.3 {ratio} Normal 1.0-2.5 [facility] Comment on above: Performed By: #### 1 0231, 6399, 7600 #### [facility] of [address], [address] [place] [address] [employer]: Brayden England MD ALP [Catalytic activity/Vol] 87 U/L Normal 37-153 [facility] Comment on above: Performed By: #### 1 0231, 63, 7600 #### [facility] of [address], [address] [place] [address] [employer] Professional: Brayden England MD ALT [Catalytic activity/Vol] 8 U/L Normal 6-29 [facility] Comment on above: Performed By: #### 1 0231, 63, 7600 #### [facility] of [address], [address] [place] [address] [employer] Professional: Brayden England MD AST [Catalytic activity/Vol] 18 U/L Normal 10-35 [facility] Comment on above: Performed By: #### 1 0231, 6399, 7600 #### [facility] of [address], [address] [place] [address] [employer] Professional: Brayden England MD Bilirubin [Mass/Vol] 0.5 mg/dL Normal 0.2-1.2 [facility] Comment on above: Performed By: #### 1 0231, 6399, 7600 #### [facility] of [place] [address] [employer] Professional: Brayden England MD BUN/CREATININE RATIO SEE NOTE: Normal 6-22 [facility] Comment on above: Result Comment: Not Reported: BUN and Creatinine are within reference range. Performed By: #### 1 0231, 6399, 7600 #### [facility] of [address], [address] [place] [address] [employer]: Brayden England MD Calcium [Mass/Vol] 9.4 mg/dL Normal 8.6-10.4 [facility] Comment on above: Performed By: #### 1 023, 63, 7600 #### [facility] of [place] [address] [employer] Professional: Brayden England MD Chloride [Moles/Vol] 104 mmol/L Normal 98-110 [facility] Comment on above: Performed By: #### 1 023, 63, 7600 #### [facility] of [place] [address] [employer] Professional: Brayden England MD CO2 [Moles/Vol] 30 mmol/L Normal 20-32 [facility] Comment on above: Performed By: #### 1 230, 63, 0 #### [facility] of [place] [address] [employer] Professional: Brayden England MD Creatinine [Mass/Vol] 0.78 mg/dL Normal 0.60-1.[address] [facility] Comment on above: Performed By: #### 1 230, 63, 7600 #### [facility] of [place] [address] [employer] Professional: Brayden England MD GFR/1.73 sq M.predicted among non-blacks MDRD (S/P/Bld) [Vol rate/Area] 79 mL/min/{1.73_m2} Normal > OR = 60 [facility] Comment on above: Performed By: #### 1 023, 63, 7600 #### [facility] of [place] [address] [employer] Professional: Brayden England MD Globulin (S) [Mass/Vol] 3.0 g/dL Normal 1.9-3.7 [facility] Comment on above: Performed By: #### 1 023, 63, 0240 #### [facility] of [address], [address] [place] [address] [employer] Professional: Brayden England MD Glucose [Mass/Vol] 88 mg/dL Normal 65-99 [facility] Comment on above: Result Comment: Fasting reference interval Performed By: #### 1 0231, 6399, 7600 #### [facility] of [address], [address] [place] [address] [employer] Professional: Brayden England MD Potassium [Moles/Vol] 4.5 mmol/L Normal 3.5-5.[address] [facility] [address] [facility] Comment on above: Performed By: #### 1 0231, 6399, 7600 #### [facility] of [address], [address] [place] [address] [employer] Professional: Brayden England MD Protein [Mass/Vol] 6.9 g/dL Normal 6.1-8.1 [facility] Comment on above: Performed By: #### 1 0231, 6399, 7600 #### [facility] of [address], [address] [place] [address] [employer] Professional: Brayden England MD Sodium [Moles/Vol] 140 mmol/L Normal 135-146 [facility] Comment on above: Performed By: #### 1 0231, 6399, 7600 #### [facility] of [address], [address] [place] [address] [employer] Professional: Brayden England MD Urea nitrogen [Mass/Vol] 19 mg/dL Normal 7-25 [facility] Comment on above: Performed By: #### 1 0231, 6399, 7600 #### [facility] of [address], [address] [place] [address] [employer] Professional: Brayden Engalnd MD LIPID PANEL, [facility] 11-2 Cholesterol [Mass/Vol] 155 mg/dL Normal <200 [facility] Comment on above: Performed By: #### 1 0231, 6399, 7600 #### [facility] of [address] [place] [address] [employer] Professional: Brayden England MD Cholesterol in HDL [Mass/Vol] 51 mg/dL Normal > OR = 50 [facility] Comment on above: Performed By: #### 1 023, 2199, 3320 #### [facility] [address], [address] [place] [address] [employer] Professional: Brayden England MD Cholesterol in LDL [Mass/Vol] [...] LDL-C. Bhaskar WEST et al. QUANG. 2013;310(19): 1208-0764 (http://education.[employer].FlexMinder/faq/KTZ935) Performed By: #### 1 023, 7631, 9020 #### [facility] [address], [address] [place] [address] [employer] Professional: Brayden England MD Cholesterol.total/Antonietta sterol in HDL [Mass ratio] 3.0 {ratio} Normal <5.0 [facility] Comment on above: Performed By: #### 1 023, 5274, 0220 #### [facility] [place] [address] [employer] Professional: Brayden England MD NON HDL CHOLESTEROL 104 mg/dL (calc) Normal <130 [facility] Comment on above: Result Comment: For patients with diabetes plus 1 major ASCVD risk factor, treating to a non-HDL-C goal of <100 mg/dL (LDL-C of <70 mg/dL) is considered a therapeutic option. Performed By: #### 1 0231, 6535, 2180 #### [facility] [address], [address] [place] [address] [employer] Professional: Brayden England MD Triglyceride [Mass/Vol] 91 mg/dL Normal <150 [facility] Comment on above: Performed By: #### 1 0231, 2651, 0460 #### [facility] [address], [address] [place] [address] [employer] Professional: Brayden England MD No Panel Informationon 12-27 155 mg/dL Normal [facility] 51 mg/dL Normal [facility] 91 mg/dL Normal [facility] 85 Normal [facility] 3.0 Normal 1.9 - 3.7 [facility] 104 Normal [facility] 88 mg/dL Normal 65 - 99 mg/dL [facility] 19 mg/dL Normal 7 - 25 mg/dL [facility] 0.78 mg/dL Normal 0.60 - 1.00 mg/dL [facility] 79 Normal [employer] [facility] SEE NOTE: Normal 6 - 22 [facility] 140 mmol/L Normal 135 - 146 mmol/L [facility] 4.5 mmol/L Normal 3.5 - 5.3 mmol/L [facility] 104 mmol/L Normal 98 - 110 mmol/L [facility] 30 mmol/L Normal 20 - 32 mmol/L [employer] 9.4 mg/dL Normal 8.6 - 10.4 mg/dL [facility] 6.9 g/dL Normal 6.1 - 8.1 g/dL [facility] 3.9 g/dL Normal 3.6 - 5.1 g/dL [facility] 1.3 Normal 1.0 - 2.5 [facility] 0.5 mg/dL Normal 0.2 - 1.2 mg/dL [facility] 87 U/L Normal 37 - 153 U/L [facility] 18 U/L Normal 10 - 35 U/L [facility] 8 U/L Normal 6 - 29 U/L [facility] 6.7 Normal 3.8 - 10.8 [facility] 3.83 {Million/uL} Normal 3.80 - 5.1 0 {Million/uL} [facility] 11.0 g/dL Abnormal 11.7 - 15.5 g/dL [facility] 36.1 % Normal 35.0 - 45.0 % [facility] 94.3 fL Normal 80.0 - 100.0 fL [facility] 28.7 pg Normal 27.0 - 33.0 pg [facility] 30.5 g/dL Abnormal 32.0 - 36.0 g/dL [facility] 13.2 % Normal 11.0 - 15.0 % [facility] 252 Normal 140 - 400 [facility] 10.7 fL Normal 7.5 - 12.5 fL [facility] 4456 {cells/uL} Normal 1500 - 7800 {cells/uL} [facility] 1467 {cells/uL} Normal 850 - 3900 {cells/uL} [employer] 583 {cells/uL} Normal 200 - 950 {cells/uL} [employer] [employer] [employer] 168 {cells/uL} Normal 15 - 500 {cells/uL} [facility] 27 {cells/uL} Normal 0 - 200 {cells/uL} [employer] 66.5 % Normal [employer] 21.9 % Normal [employer] 8.7 % Normal [employer] 2.5 % Normal [employer] 0.4 % Normal [employer] EMERGENCY REPORTon [address] [facility] EMERGENCY ROOM REPORT NAME ACCOUNT SEX AGE ADMIT DISCHARGE PT MED. RECORD# NUMBER DATE DATE TYPE DALI, [id number] F 76 06/10/22 06/10/22 3 ROSARIO Lopez [id number] ROOM: ER DATE OF : 1945 DICTATING [...] Stew So DO 08/07/22 14:39 JOB #: [id number] Transcribed By: jose 08/07/22 15:10 Electronically signed by: MODESTO So DO 08/16/22 21:25 Page 2 of 2 ROSARIO MCNALLY Emergency Room Report Normal [facility] CT BRAIN W/O CONTRASTon 05-0 CT BRAIN W/O CONTRAST [place] [address] Patient: ROSARIO MCNALLY. Phone#: : 1945 Age: 76 Gender: F Pt. Type: ER Account: [id number] Location: 052 Ordering: DR. MARIA DEL CARMEN BLACKBURN Exam Date: 06/10/2022/21:04 Family Phys: CHICO COLLIER Charge Code: 565188 Physician: Mono Order #: [id number] Dose#: [id number] PROCEDURE: CT BRAIN WITHOUT CONTRAST COMPARISON: [facility], CT, BRAIN W/O CON, 04/24/2022, 10:47. INDICATIONS: [...] Simon MD on 06/10/2022 at 22:03 Normal [facility] CT CERVICAL W/O CONTRASTon 0 06-10-2022 CT CERVICAL W/O CONTRAST [place] [address] Patient: ROSARIO MCNALLY Phone#: : 1945 Age: 76 Gender: F Pt. Type: ER Account: [id number] Location: [facility] Ordering: DR. MARIA DEL CARMEN BLACKBURN Exam Date: 06/10/2022/21:04 Family Phys: CHICO COLLIER Charge Code: 565807 Physician: Mono Order #: [id number] Dose#: [id number] PROCEDURE: CT CERVICAL WITHOUT CONTRAST COMPARISON: [facility], CT, CERVICAL W/O CON, 04/24/2022, 10:47. INDICATIONS: [...] no evidence of acute fracture or subluxation. [place] [address] Patient: ROSARIO MCNALLY Phone#: : 1945 Age: 76 Gender: F Pt. Type: ER Account: [id number] Location: 2 Ordering: DR. MARIA DEL CARMEN BLACKBURN Exam Date: 06/10/2022/21:04 Family Phys: CHICO CARRASCOSRINIVAS Charge Code: [id number] Physician: Mono Order #: [id number] Dose#: 7.20 Dictated by: Elisabeth Simon MD on 06/10/2022 at 22:04 Approved by: Elisabeth Simon MD on 06/10/2022 at 22:08 Normal [facility] 3D MAMM BILAT SCREENon 05-19 3D MAMM BILAT SCREEN [address] [address] Patient: ROSARIO MCNALLY Phone#: : 1945 Age: 76 Gender: F Pt. Type: Out Account: [id number] Location: 052 Ordering: CHICO COLLIER Exam Date: 05/19/2022/13:21 Family Phys: Charge Code: [id number] Physician: Mono Order #: [id number] Dose#: PROCEDURE: BILATERAL SCREENING BREAST TOMOSYNTHESIS MAMMOGRAM WITH CAD COMPARISON: [facility], BILAT SCREENING, 01/25/2020, 13:03. [facility], 3D BILAT SCREEN, 04/08/2021, 14:42. INDICATIONS: Screening. [...] Simon MD on 05/19/2022 at 13:43 Normal [facility] CV CAROTID STUDYon CV CAROTID STUDY [place] [address] Patient: ROSARIO MCNALLY Phone#: : 1945 Age: 76 Gender: F Pt. Type: Out Account: [id number] Location: 052 Ordering: CHICO COLLIER Exam Date: 05/19/2022/12:49 Family Phys: Charge Code: [id number] Physician: Mono Order #: [id number] Dose#: PROCEDURE: CAROTID FLOW STUDY COMPARISON: None. INDICATIONS: Frequent falls TECHNIQUE: Color duplex Doppler ultrasound and pulsed Doppler analysis were performed to evaluate the cervical carotid arteries and vertebral flow. All measurements for carotid artery narrowing or stenosis were obtained using the ipsilateral distal internal carotid artery as the reference value. STUNT PERSON: CAMILLE PT HISTORY: Frequent falls RIGHT IMAGING [...] 76 Gender: F Pt. Type: Out Account: [id number] Location: [facility] Ordering: CHICO COLLIER Exam Date: 05/19/2022/12:49 Family Phys: Charge Code: [id number] Physician: Mono Order #: [id number] Dose#: Mid ICA: 57.39 cm/s Mid ICA [...] cm/s Subclavian Artery: 82.66 cm/s CONCLUSION: 1. Admz-zw-oxafmrcp irregular mixed plaque is present. 2. There is no evidence of hemodynamically significant stenosis. Dictated by: Elisabeth Simon MD on 05/19/2022 at 13:31 Approved by: Elisabeth Simon MD on 05/19/2022 at 13:33 Normal [facility] EMERGENCY REPORTon [address] [facility] EMERGENCY ROOM REPORT NAME ACCOUNT SEX AGE ADMIT DISCHARGE PT MED. RECORD# NUMBER DATE DATE TYPE ADLI [id number] F 76 04/24/22 04/24/22 3 ROSARIO Lopez [id number] ROOM: ER DATE OF : 1945 DICTATING PHYSICIAN: Stew So ADDENDUM: DIAGNOSTIC DATA: The patient had a possible nondisplaced right zygomatic arch fracture. PLAN/DISPOSITION: I did talk to the daughter, and she is going to followup with Dr. Collire on Tuesday, and he can reevaluate. I also told her she could followup with Dr. Strickland. Dictated By: Stew So DO 04/26/22 20:17 JOB #: [id number] Transcribed By: am 04/27/22 08:59 Electronically signed by: MODESTO So DO 05/04/22 08:19 Page 1 of 1 ROSARIO MCNALLY Emergency Room Report Normal [facility] EMERGENCY REPORTon [address] [facility] EMERGENCY ROOM REPORT NAME ACCOUNT SEX AGE ADMIT DISCHARGE PT MED. RECORD# NUMBER DATE DATE TYPE DALI, [id number] F 76 04/24/22 04/24/22 3 ROSARIO Lopez [id number] ROOM: ER DATE OF : 1945 DICTATING [...] answering questions appropriately, has normal speech, intact vwqaxh-wc-hvqe bilaterally. Sensation is intact to bilateral upper [...] Matilde Veronica MD 04/24/22 12:26 JOB #: [id number] Transcribed By: ameena 04/24/22 21:53 Electronically signed by: Dr. Matilde Veronica MD 04/26/22 02:46 Page 2 of 2 DALIROSARIO Emergency Room Report [facility] CHEST 1 VIEWon 04-24-2022 CHEST 1 VIEW [place] [address] Patient: ROSARIO MCNALLY. Phone#: : 1945 Age: 76 Gender: F Pt. Type: ER Account: [id number] Location: [facility] Ordering: DR. MATILDE VERONICA Exam Date: 04/24/2022/11:09 Family Phys: CHICO COLLIER Charge Code: [id number] Physician: Mono Order #: [id number] Dose#: PROCEDURE: X-RAY CHEST 1 VIEW COMPARISON: [facility], XR, CHEST PA/LAT, 02/20/2016, 12:12. INDICATIONS: Trauma. [...] Simon MD on 04/24/2022 at 13:31 Normal [facility] CT BRAIN W/O CONTRASTon 03- CT BRAIN W/O CONTRAST [place] [address] Patient: ROSARIO MCNALLY Phone#: : 1945 Age: 76 Gender: F Pt. Type: ER Account: [id number] Location: [facility] Ordering: DR. MATILDE VERONICA Exam Date: 04/24/2022/10:47 Family Phys: CHICO COLLIER Charge Code: [id number] Physician: Mono Order #: [id number] Dose#: PROCEDURE: CT BRAIN WITHOUT CONTRAST COMPARISON: [...] Simon MD on 04/24/2022 at 13:12 Normal [facility] CT CERVICAL W/O CONTRASTon 0 04-24-2022 CT CERVICAL W/O CONTRAST [place] [id number] Patient: ROSARIO MCNALLY Phone#: : 1945 Age: 76 Gender: F Pt. Type: ER Account: [id number] Location: 05 Ordering: DR. MATILDE VERONICA Exam Date: 04/24/2022/10:47 Family Phys: CHICO COLLIER Charge Code: [id number] Physician: Mono Order #: [id number] Dose#: PROCEDURE: CT CERVICAL WITHOUT CONTRAST COMPARISON: [...] no evidence of acute fracture or subluxation. [place] [address] Patient: ROSARIO MCNALLY Phone#: : 1945 Age: 76 Gender: F Pt. Type: ER Account: [id number] Location: 052 Ordering: DR. MATILDE VERONICA Exam Date: 04/24/2022/10:47 Family Phys: CHICO COLLIER Charge Code: [id number] Physician: Mono Order #: [id number] Dose#: Dictated by: Elisabeth Simon MD on 04/24/2022 at 13:18 Approved by: Elisabeth Simon MD on 04/24/2022 at 13:23 Normal [facility] CT FACIAL BONES W/O CONTRAST on 04-24-2022 CT FACIAL BONES W/O CONTRAST [place] [address] Patient: ROSARIO MCNALLY Phone#: : 1945 Age: 76 Gender: F Pt. Type: ER Account: [id number] Location: 052 Ordering: DR. MATILDE VERONICA Exam Date: 04/24/2022/10:47 Family Phys: CHICO COLLIER Charge Code: [id number] Physician: Mono Order #: [id number] Dose#: PROCEDURE: CT FACIAL BONES WITHOUT CONTRAST [...] 76 Gender: F Pt. Type: ER Account: [id number] Location: 052 Ordering: DR. MATILDE VERONICA Exam Date: 04/24/2022/10:47 Family Phys: CHICO COLLIER Charge Code: [id number] Physician: Mono Order #: [id number] Dose#: Approved by: Elisabeth Simon MD on 04/24/2022 at 13:18 Normal [facility] PELVIS 1 or 2 VIEWSon 2022 PELVIS 1 or 2 VIEWS [place] [address] Patient: ROSARIO MCNALLY Phone#: : 1945 Age: 76 Gender: F Pt. Type: ER Account: [id number] Location: 052 Ordering: DR. MATILDE VERONICA Exam Date: 04/24/2022/11:10 Family Phys: CHICO COLLIER Charge Code: [id number] Physician: Mono Order #: [id number] Dose#: PROCEDURE: X-RAY PELVIS AP COMPARISON: [facility], XR, PELVIS AP, 09/15/2011, 6:52. INDICATIONS: Trauma. [...] Simon MD on 04/24/2022 at 13:32 Normal [facility] No Panel Informationon 12-28 140 mg/dL Normal [facility], [facility].; [employer] 53 mg/dL Normal [facility] [employer] [employer] 82 mg/dL Normal [employer] [employer] 71 Normal [employer], [employer] 2.6 Normal [employer] [employer] 87 Normal [employer], [employer].; [employer] 85 mg/dL Normal 65 - 99 mg/dL [facility] [employer] [employer].; [employer], [employer] 18 mg/dL Normal 7 - 25 mg/dL [facility], Inc.; [employer], [employer] 0.71 mg/dL Normal 0.60 - 1.00 mg/dL [employer], [employer].; [employer] 89 Normal [employer], [employer].; [employer], [employer] NOT APPLICABLE Normal 6 - 22 [facility], Inc.; [employer], [employer] 141 mmol/L Normal 135 - 146 mmol/L [employer] [employer].; [employer], [employer] 4.4 mmol/L Normal 3.5 - 5.3 mmol/L [facility], [facility].; [employer], [employer] 104 mmol/L Normal 98 - 110 mmol/L [facility], [facility].; [facility] 32 mmol/L Normal 20 - 32 mmol/L [facility], [facility].; [facility] 9.5 mg/dL Normal 8.6 - 10.4 mg/dL [facility], [facility].; [facility] 6.8 g/dL Normal 6.1 - 8.1 g/dL [facility], [facility].; [facility] 4.0 g/dL Normal 3.6 - 5.1 g/dL [facility], [facility].; [facility] 2.8 Normal 1.9 - 3.7 [facility], [facility].; [facility] 1.4 Normal 1.0 - 2.5 [facility], [facility].; [facility] 0.6 mg/dL Normal 0.2 - 1.2 mg/dL [facility], [facility].; [facility], [facility] 167 U/L Abnormal 37 - 153 U/L [facility], [facility].; [facility], [facility] 14 U/L Normal 10 - 35 U/L [facility], [facility].; [facility], [facility] 4 U/L Abnormal 6 - 29 U/L [facility], [facility].; [facility] 7.5 Normal 3.8 - 10.8 [facility], [facility].; [facility] 3.51 {Million/uL} Abnormal 3.80 - 5.1 0 {Million/uL} [facility], [facility].; [employer] [facility], [facility] 10.4 g/dL Abnormal 11.7 - 15.5 g/dL [facility], [facility].; [employer] [facility], Inc[facility] 32.5 % Abnormal 35.0 - 45.0 % [facility], [facility].; [facility] 92.6 fL Normal 80.0 - 100.0 fL [facility], [facility].; [facility] 29.6 pg Normal 27.0 - 33.0 pg [facility], [facility].; [facility] 32.0 g/dL Normal 32.0 - 36.0 g/dL [employer], [employer].; [employer] 13.1 % Normal 11.0 - 15.0 % [employer], [employer].; [employer], [employer] 254 Normal 140 - 400 [employer], [employer].; [employer], [employer] 10.9 fL Normal 7.5 - 12.5 fL [employer], [employer], [employer] 5475 {cells/uL} Normal 1500 - 7800 {cells/uL} [employer], [employer] 1193 {cells/uL} Normal 850 - 3900 {cells/uL} [employer], [employer], [employer] 690 {cells/uL} Normal 200 - 950 {cells/uL} [employer], [employer], [employer] 90 {cells/uL} Normal 15 - 500 {cells/uL} [employer], [employer], [employer] 53 {cells/uL} Normal 0 - 200 {cells/uL} [employer], [employer], [employer] 73 % Normal [employer], [employer].; [employer] 15.9 % Normal [employer], [employer].; [employer] 9.2 % Normal [employer], [employer].; [employer] 1.2 % Normal [employer], [employer].; [employer], [employer] 0.7 % Normal [employer], [employer].; [employer], [employer] No Panel Informationon 01-05 146 mg/dL Normal [employer], [employer].; [employer] 56 mg/dL Normal [employer], [employer].; [employer], [employer] 67 mg/dL Normal [employer], [employer].; [employer], [employer] 76 Normal [employer], [employer].; [employer], [employer] 2.6 Normal [employer], [employer].; [employer], [employer] 90 Normal [employer], [employer].; [employer], [employer] 92 mg/dL Normal 65 - 99 mg/dL [employer], [employer].; [employer], [employer] 15 mg/dL Normal 7 - 25 mg/dL [facility], [facility].; [employer] 0.72 mg/dL Normal 0.60 - 0.93 mg/dL [facility], [facility].; [employer] [facility] 82 Normal [facility], [facility].; [employer] [facility] 96 Normal [facility], [facility].; [employer] [facility], Inc. NOT APPLICABLE Normal 6 - 22 [facility], Inc.; [employer] [facility], [facility] 138 mmol/L Normal 135 - 146 mmol/L [facility], [facility].; [employer] [facility], [facility] 4.3 mmol/L Normal 3.5 - 5.3 mmol/L [facility], [facility].; [employer] [facility], [facility] 102 mmol/L Normal 98 - 110 mmol/L [facility], [facility].; [employer] 29 mmol/L Normal 20 - 32 mmol/L [facility], [facility].; [employer] [facility], [facility] 9.5 mg/dL Normal 8.6 - 10.4 mg/dL [facility], [facility].; [employer] [facility] 7.2 g/dL Normal 6.1 - 8.1 g/dL [facility], [facility].; [employer] [facility] 3.8 g/dL Normal 3.6 - 5.1 g/dL [facility], [facility].; [employer] [facility] 3.4 Normal 1.9 - 3.7 [facility], [facility].; [employer] [facility], [facility] 1.1 Normal 1.0 - 2.5 [employer] [facility], [facility].; [employer] [facility], [facility] 0.6 mg/dL Normal 0.2 - 1.2 mg/dL [employer] [facility], [facility].; [employer] 80 U/L Normal 37 - 153 U/L [facility], [facility].; [employer], [employer] 15 U/L Normal 10 - 35 U/L [employer] [facility], [facility].; [employer] [employer] 7 U/L Normal 6 - 29 U/L [employer] [facility], [facility].; [employer] [employer] 8.8 Normal 3.8 - 10.8 [facility] [employer] [facility], [employer].; [employer], [employer] 3.91 {Million/uL} Normal 3.80 - 5.1 0 {Million/uL} [employer], [employer].; [employer] 11.3 g/dL Abnormal 11.7 - 15.5 g/dL [facility] [employer] [facility], [employer].; [employer], [employer] 34.9 % Abnormal 35.0 - 45.0 % [employer] [employer].; [employer], [employer] 89.3 fL Normal 80.0 - 100.0 fL [employer], [employer].; [employer], [employer] 28.9 pg Normal 27.0 - 33.0 pg [employer], [employer].; [employer], [employer] 32.4 g/dL Normal 32.0 - 36.0 g/dL [employer], [employer].; [employer], [employer] 13.0 % Normal 11.0 - 15.0 % [employer], [employer].; [employer], [employer] 314 Normal 140 - 400 [employer], [employer].; [employer], [employer] 10.5 fL Normal 7.5 - 12.5 fL [employer], [employer].; [employer], [employer] 6160 {cells/uL} Normal 1500 - 7800 {cells/uL} [employer], [employer].; [employer] 1857 {cells/uL} Normal 850 - 3900 {cells/uL} [employer], [employer].; [employer], [employer] 686 {cells/uL} Normal 200 - 950 {cells/uL} [employer], [employer].; [employer], [employer] 53 {cells/uL} Normal 15 - 500 {cells/uL} [employer], [employer].; [employer] 44 {cells/uL} Normal 0 - 200 {cells/uL} [employer], [employer].; [employer], [employer] 70 % Normal [employer], [employer].; [employer] 21.1 % Normal [employer], [employer].; [employer] 7.8 % Normal [employer], [employer].; [employer], [employer] 0.6 % Normal [employer], [employer].; [facility] 0.5 % Normal [employer] [employer] [employer], [employer] 2.63 {mIU/L} Normal 0.40 - 4.50 {mIU/L} [employer] [employer], [employer] No Panel Informationon 07-28 SEE NOTE Normal [employer] [employer], [employer] BIOPSY Normal [employer], [employer].; [employer], [employer]. No Panel Informationon 12-23 168 mg/dL Normal [employer] [facility] [employer] [facility], [employer].; [employer] [employer] 59 mg/dL Normal [employer] [facility], [employer].; [employer], [employer] 89 mg/dL Normal [employer] [facility] [employer] [facility], [employer].; [employer], [employer] 91 Normal [employer], [employer].; [employer], [employer] 2.8 Normal 1.9 - 3.7 [facility] [employer].; [employer], [employer] 109 Normal [facility] [employer].; [employer], [employer] 92 mg/dL Normal 65 - 99 mg/dL [employer], [employer].; [employer], [employer] 20 mg/dL Normal 7 - 25 mg/dL [facility], Inc.; [employer], [employer] 0.82 mg/dL Normal 0.60 - 0.93 mg/dL [employer] [facility] [employer].; [employer], [employer] 71 Normal [employer] [facility] [employer].; [employer], [employer] 82 Normal [employer] [employer].; [employer], [employer]. NOT APPLICABLE Normal 6 - 22 [facility], Inc.; [employer], [employer] 140 mmol/L Normal 135 - 146 mmol/L [employer] [employer].; [employer], [employer] 4.2 mmol/L Normal 3.5 - 5.3 mmol/L [employer] [facility] [employer] [facility], [employer].; [employer], [employer] 102 mmol/L Normal 98 - 110 mmol/L [facility] [employer] [facility], [employer].; [employer], [employer] 31 mmol/L Normal 20 - 32 mmol/L [facility] [employer] [facility], [employer].; [employer], [employer] 10.0 mg/dL Normal 8.6 - 10.4 mg/dL [facility], [facility].; [facility] 7.2 g/dL Normal 6.1 - 8.1 g/dL [facility], [facility].; [facility] 4.4 g/dL Normal 3.6 - 5.1 g/dL [facility], [facility].; [facility] 1.6 Normal 1.0 - 2.5 [facility], [facility].; [employer] [facility] [employer] 0.8 mg/dL Normal 0.2 - 1.2 mg/dL [facility], [facility].; [employer] [facility] [employer] 80 U/L Normal 37 - 153 U/L [facility], [facility].; [facility] 17 U/L Normal 10 - 35 U/L [facility], [facility].; [employer], [employer] 6 U/L Normal 6 - 29 U/L [facility], [facility].; [employer] [facility], [employer] 9.5 Normal 3.8 - 10.8 [facility], [facility].; [employer] [facility] [employer] 4.08 {Million/uL} Normal 3.80 - 5.1 0 {Million/uL} [employer] [facility], [facility].; [employer] [employer] 12.4 g/dL Normal 11.7 - 15.5 g/dL [facility], [facility].; [employer] [facility] [employer] 37.1 % Normal 35.0 - 45.0 % [facility] [employer] [facility].; [employer] [facility] [employer] 90.9 fL Normal 80.0 - 100.0 fL [facility] [employer] [facility], [facility].; [employer] [employer] 30.4 pg Normal 27.0 - 33.0 pg [employer] [employer].; [employer] [employer] 33.4 g/dL Normal 32.0 - 36.0 g/dL [facility] [employer] [facility], [facility].; [employer] [facility] [employer] 12.7 % Normal 11.0 - 15.0 % [facility] [employer] [facility], [facility].; [employer] [facility] [employer] 288 Normal 140 - 400 [facility], [employer].; [employer] [facility], [employer] 10.7 fL Normal 7.5 - 12.5 fL [facility] [employer] [facility], [employer].; [employer]. 6698 {cells/uL} Normal 1500 - 7800 {cells/uL} [employer], [employer] 1900 {cells/uL} Normal 850 - 3900 {cells/uL} [employer], [employer] 684 {cells/uL} Normal 200 - 950 {cells/uL} [employer], [employer] 152 {cells/uL} Normal 15 - 500 {cells/uL} [employer] 67 {cells/uL} Normal 0 - 200 {cells/uL} [employer].; [employer]. 70.5 % Normal [employer].; [employer]. 20.0 % Normal [employer].; [employer], [employer] 7.2 % Normal [employer].; [employer]. 1.6 % Normal [employer].; [employer]. 0.7 % Normal [employer].; [employer]. Laboratory - Chemistry and C hemistry - challengeon 12-22-2018 Albumin [Mass/Vol] 4.4 g/dL Normal 3.6 - 5.1 g/dL [employer].; [employer] Albumin/Globulin [Mass ratio] 1.6 {ratio} Normal 1.0 - 2.5 [employer]. ALP [Catalytic activity/Vol] 79 U/L Normal 33 - 130 U/L [employer].; [employer], [employer]. ALT [Catalytic activity/Vol] 4 U/L Abnormal 6 - 29 U/L [employer].; [employer], [employer]. AST [Catalytic activity/Vol] 15 U/L Normal 10 - 35 U/L [employer].; [employer], [employer]. Bilirubin [Mass/Vol] 0.8 mg/dL Normal 0.2 - 1 .2 mg/dL [employer].; [employer]. Calcium [Mass/Vol] 9.8 mg/dL Normal 8.6 - 10. 4 mg/dL [facility], [facility].; [facility], [facility] Chloride [Moles/Vol] 103 mmol/L Normal 98 - 11 0 mmol/L [facility], [facility]. Cholesterol [Mass/Vol] 160 mg/dL Normal [facility].; [facility], [facility] Cholesterol in HDL [Mass/Vol] 62 mg/dL Normal [facility], [facility]. Cholesterol in LDL [Mass/Vol] 82 mg/dL Normal 0 - 100 mg/dL [facility], [facility].; [facility], [facility] Cholesterol non HDL [Mass/Vol] 98 mg/dL Normal [facility], [facility].; [facility], [facility] Cholesterol.total/Antonietta sterol in HDL [Mass ratio] 2.6 {ratio} Normal [facility], [facility] CO2 [Moles/Vol] 32 mmol/L Normal 20 - 32 mmol/L [facility], [facility].; [facility], [facility]. Creatinine [Mass/Vol] 0.74 mg/dL Normal 0.60 - 0.93 mg/dL [facility], [facility].; [facility], [facility]. GFR/1.73 sq M.predicted among blacks MDRD (S/P/Bld) [Vol rate/Area] 94 {ML/MIN/1.73M2} Normal [facility], [facility].; [facility], [facility]. GFR/1.73 sq M.predicted MDRD (S/P/Bld) [Vol rate/Area] 81 {ML/MIN/1.73M2} Normal [facility], [facility].; [facility], [facility]. Globulin (S) [Mass/Vol] 2.8 g/dL Normal 1.9 - 3.7 g/dL [facility], [facility].; [facility], [facility]. Glucose [Mass/Vol] 94 mg/dL Normal 65 - 99 mg/dL [facility], [facility].; [employer] [facility]. Potassium [Moles/Vol] 4.0 mmol/L Normal 3.5 - 5.3 mmol/L [facility], [facility].; [facility], [facility] Protein [Mass/Vol] 7.2 g/dL Normal 6.1 - 8.1 g/dL [facility] [employer], [employer], [employer]. Sodium [Moles/Vol] 141 mmol/L Normal 135 - 146 mmol/L [facility] [employer] [facility], [facility].; [employer], [employer]. Triglyceride [Mass/Vol] 77 mg/dL Normal [facility] [employer], [employer]. Urea nitrogen [Mass/Vol] 15 mg/dL Normal 7 - 25 mg/dL [employer], [employer]. Urea nitrogen/Creatinine [Mass ratio] 19.7 mg/mg Normal 6 - 22 [employer].; [employer], [employer]. Laboratory - Hematology and Cell countson 12-22-2018 Basophils (Bld) [#/Vol] 60 {Cells}/uL Normal 0 - 200 {Cells}/uL [employer].; [employer], [employer]. Basophils/100 WBC (Bld) 0.7 % Normal 0 - 1 % [facility] [employer] [employer], [employer]. Eosinophils (Bld) [#/Vol] 140 {Cells}/uL Normal 15 - 500 {Cells}/uL [employer], [employer]. Eosinophils/100 WBC (Bld) 1.7 % Normal 0 - 4 % [employer].; [employer], [employer]. Erythrocyte distribution width (RBC) [Ratio] 12.9 % Normal 11.0 - 15.0 % [employer].; [employer], [employer]. Hematocrit (Bld) [Volume fraction] 37.8 % Normal 35.0 - 45.0 % [employer], [employer].; [employer], [employer]. Hemoglobin (Bld) [Mass/Vol] 12.3 g/dL Normal 11.7 - 15.5 g/dL [employer], [employer].; [employer], [employer] Lymphocytes (Bld) [#/Vol] 2040 {Cells}/uL Normal 850 - 3900 {Cells}/uL [employer], [employer].; [employer], [employer] Lymphocytes/100 WBC (Bld) 25.0 % Normal 12 - 47 % [employer] MCH (RBC) [Entitic mass] 30.1 pg Normal 27.0 - 33.0 PG [employer], [employer]. MCHC (RBC) [Mass/Vol] 32.5 g/dL Normal 32.0 - 36.0 g/dL [facility], [employer].; [employer], [employer]. MCV (RBC) [Entitic vol] 92.6 fL Normal 80.0 - 100.0 fL [facility].; [employer], [employer]. Monocytes (Bld) [#/Vol] 630 {Cells}/uL Normal 20 0 - 950 {Cells}/uL [facility].; [employer], [employer]. Monocytes/100 WBC (Bld) 7.7 % Normal 4 - 12 % [facility] [employer], [employer]. Neutrophils (Bld) [#/Vol] 5260 {Cells}/uL Normal 1500 - 7800 {Cells}/uL [facility].; [employer], [employer]. Neutrophils/100 WBC (Bld) 64.9 % Normal 40 - 75 % [employer].; [employer], [employer]. Platelet mean volume (Bld) [Entitic vol] 10.7 fL Normal 7.5 - 12.5 fL [employer].; [employer] Platelets (Bld) [#/Vol] 264 10*3/uL Normal 140 - 400 10*3/uL [employer].; [employer], [employer]. RBC (Bld) [#/Vol] 4.08 10*6/uL Normal 3.80 - 5.1 0 10*6/uL [employer].; [employer], [employer]. WBC (Bld) [#/Vol] 8.2 10*3/uL Normal 3.8 - 10.8 10*3/uL [employer], [employer].; [employer], [employer]. Laboratory - Chemistry and C hemistry - challengeon 12-14-2017 Calcium [Mass/Vol] 10.0 mg/dL Normal 8.6 - 10. 4 mg/dL [employer].; [facility], [facility] Chloride [Moles/Vol] 104 mmol/L Normal 98 - 11 0 mmol/L [facility], [facility].; [facility], [facility] Cholesterol [Mass/Vol] 151 mg/dL Normal Ho [facility], [facility].; [facility], Inc Cholesterol in HDL [Mass/Vol] 62 mg/dL Normal [facility], [facility].; [facility], [facility]. Cholesterol in LDL [Mass/Vol] 75 mg/dL Normal 0 - 100 mg/dL [facility], [facility].; [employer] [facility], [facility]. Cholesterol non HDL [Mass/Vol] 89 mg/dL Normal [facility], [facility].; [facility], [facility]. Cholesterol.total/Antonietta sterol in HDL [Mass ratio] 2.4 {ratio} Normal [facility], [facility].; [employer] CO2 [Moles/Vol] 30 mmol/L Normal 20 - 32 mmol/L [facility], [facility].; [facility], [facility]. Creatinine [Mass/Vol] 0.75 mg/dL Normal 0.60 - 0.93 mg/dL [facility], [facility].; [employer] [facility], [facility]. GFR/1.73 sq M.predicted among blacks MDRD (S/P/Bld) [Vol rate/Area] 93 {ML/MIN/1.73M2} Normal [facility], [facility].; [employer] [facility], [facility]. GFR/1.73 sq M.predicted MDRD (S/P/Bld) [Vol rate/Area] 80 {ML/MIN/1.73M2} Normal [facility], [facility].; [employer] Glucose [Mass/Vol] 92 mg/dL Normal 65 - 99 mg/dL [facility], [facility].; [employer] Potassium [Moles/Vol] 4.3 mmol/L Normal 3.5 - 5.3 mmol/L [facility], [facility].; [employer] Sodium [Moles/Vol] 141 mmol/L Normal 135 - 146 mmol/L [facility], [facility].; [employer] Triglyceride [Mass/Vol] 62 mg/dL Normal [facility], [facility].; [employer] [facility], [facility]. TSH Qn 2.12 m[IU]/L Normal 0.40 - 4.50 {mIU/L} [facility].; [facility] Urea nitrogen [Mass/Vol] 16 mg/dL Normal 7 - 25 mg/dL [facility].; [facility], [facility] Urea nitrogen/Creatinine [Mass ratio] 21.9 mg/mg Normal 6 - 22 [facility]; [facility] Laboratory - Hematology and Cell countson 12-14-2017 Basophils (Bld) [#/Vol] 40 {Cells}/uL Normal 0 - 200 {Cells}/uL [facility].; [facility] Basophils/100 WBC (Bld) 1 % Normal 0 - 1 % H [facility]; [facility] Eosinophils (Bld) [#/Vol] 210 {Cells}/uL Normal 15 - 500 {Cells}/uL [facility].; [employer] [facility] Eosinophils/100 WBC (Bld) 3 % Normal 0 - 4 % [facility].; [employer] [facility] Erythrocyte distribution width (RBC) [Ratio] 14.3 % Normal 11.0 - 15.0 % [facility].; [employer] [facility] Hematocrit (Bld) [Volume fraction] 36.0 % Normal 35.0 - 45.0 % [facility].; [employer], [facility] Hemoglobin (Bld) [Mass/Vol] 11.9 g/dL Normal 11.7 - 15.5 g/dL [facility].; [facility] Lymphocytes (Bld) [#/Vol] 1890 {Cells}/uL Normal 850 - 3900 {Cells}/uL [facility].; [employer] [facility] Lymphocytes/100 WBC (Bld) 27 % Normal 12 - 47 % [facility].; [employer], [facility]. MCH (RBC) [Entitic mass] 30.2 pg Normal 27.0 - 33.0 PG [facility].; [employer]. MCHC (RBC) [Mass/Vol] 32.9 g/dL Normal 32.0 - 36.0 g/dL [facility], [facility].; [facility], [facility]. MCV (RBC) [Entitic vol] 91.6 fL Normal 80.0 - 100.0 fL [facility].; [facility], [facility]. Monocytes (Bld) [#/Vol] 610 {Cells}/uL Normal 20 0 - 950 {Cells}/uL [facility], [facility].; [facility], [facility]. Monocytes/100 WBC (Bld) 9 % Normal 4 - 12 % H [facility].; [facility], [facility]. Neutrophils (Bld) [#/Vol] 4250 {Cells}/uL Normal 1500 - 7800 {Cells}/uL [facility].; [facility], [facility]. Neutrophils/100 WBC (Bld) 61 % Normal 40 - 75 % [facility], [facility].; [facility], [facility] Platelet mean volume (Bld) [Entitic vol] 8.9 fL Normal 7.5 - 12.5 fL [facility].; [facility], [facility]. Platelets (Bld) [#/Vol] 241 10*3/uL Normal 140 - 400 10*3/uL [facility].; [facility], [facility]. RBC (Bld) [#/Vol] 3.93 10*6/uL Normal 3.80 - 5.1 0 10*6/uL [facility].; [employer], [employer]. WBC (Bld) [#/Vol] 7.0 10*3/uL Normal 3.8 - 10.8 10*3/uL [facility], [facility].; [employer], [employer]. Laboratory - Cytologyon 08-08 Microscopic observation Cyto stain Nom (Cvx) Normal [facility].; [employer], [facility] Laboratory - Chemistry and C hemistry - challengeon 12-22-2016 Hemoglobin.gastrointest inal Ql (Stl) Negative Normal [facility].; [employer], [employer] Laboratory - Chemistry and C hemistry - challengeon 12-13-2016 Calcium [Mass/Vol] 9.7 mg/dL Normal 8.6 - 10. 4 mg/dL [facility].; [facility], [facility]. Chloride [Moles/Vol] 103 mmol/L Normal 98 - 11 0 mmol/L [facility], [facility].; [facility], [facility]. Cholesterol [Mass/Vol] 172 mg/dL Normal Ho [facility].; [facility], [facility] Cholesterol in HDL [Mass/Vol] 58 mg/dL Normal [facility], [facility].; [facility], [facility]. Cholesterol in LDL [Mass/Vol] 95 mg/dL Normal 0 - 100 mg/dL [facility], [facility].; [facility], [facility]. Cholesterol non HDL [Mass/Vol] 113 mg/dL Normal [facility], [facility].; [facility], [facility]. Cholesterol.total/Antonietta sterol in HDL [Mass ratio] 3.0 {ratio} Normal [facility], [facility].; [facility], [facility] CO2 [Moles/Vol] 33 mmol/L Abnormal 20 - 31 mmol/L [facility], [facility].; [facility], [facility]. Creatinine [Mass/Vol] 0.75 mg/dL Normal 0.60 - 0.93 mg/dL [facility], [facility].; [facility], [facility]. GFR/1.73 sq M.predicted among blacks MDRD (S/P/Bld) [Vol rate/Area] 94 {ML/MIN/1.73M2} Normal [facility], [facility].; [facility], [facility]. GFR/1.73 sq M.predicted MDRD (S/P/Bld) [Vol rate/Area] 81 {ML/MIN/1.73M2} Normal [facility], [facility].; [employer] [facility], Inc. Glucose [Mass/Vol] 95 mg/dL Normal 65 - 99 mg/dL [facility], [facility].; [facility], [facility]. Potassium [Moles/Vol] 4.3 mmol/L Normal 3.5 - 5.3 mmol/L [facility], [facility].; [employer] [facility], [facility]. Sodium [Moles/Vol] 142 mmol/L Normal 135 - 146 mmol/L [facility], [facility].; [facility], [facility] Triglyceride [Mass/Vol] 93 mg/dL Normal [facility].; [facility], [facility] TSH Qn 3.16 m[IU]/L Normal 0.40 - 4.50 {mIU/L} [facility].; [employer] [facility] Urea nitrogen [Mass/Vol] 12 mg/dL Normal 7 - 25 mg/dL [facility].; [employer] Urea nitrogen/Creatinine [Mass ratio] 16.1 mg/mg Normal 6 - 22 [facility].; [employer] Laboratory - Hematology and Cell countson 12-13-2016 Basophils (Bld) [#/Vol] 10 {Cells}/uL Normal 0 - 200 {Cells}/uL [facility].; [employer] Basophils/100 WBC (Bld) 0 % Normal 0 - 1 % H [facility].; [employer] Eosinophils (Bld) [#/Vol] 210 {Cells}/uL Normal 15 - 500 {Cells}/uL [facility].; [employer] Eosinophils/100 WBC (Bld) 3 % Normal 0 - 4 % [employer] [facility].; [employer] Erythrocyte distribution width (RBC) [Ratio] 13.4 % Normal 11.0 - 15.0 % [employer] [facility].; [employer] Hematocrit (Bld) [Volume fraction] 38.0 % Normal 35.0 - 45.0 % [employer].; [employer] Hemoglobin (Bld) [Mass/Vol] 12.2 g/dL Normal 11.7 - 15.5 g/dL [employer] [facility].; [employer] [facility]. Lymphocytes (Bld) [#/Vol] 1830 {Cells}/uL Normal 850 - 3900 {Cells}/uL [employer].; [employer]. Lymphocytes/100 WBC (Bld) 27 % Normal 12 - 47 % [employer].; [employer]. MCH (RBC) [Entitic mass] 29.5 pg Normal 27.0 - 33.0 PG [employer].; [employer]. MCHC (RBC) [Mass/Vol] 32.3 g/dL Normal 32.0 - 36.0 g/dL [facility].; [employer], [employer]. MCV (RBC) [Entitic vol] 91.3 fL Normal 80.0 - 100.0 fL [facility].; [employer], [employer]. Monocytes (Bld) [#/Vol] 310 {Cells}/uL Normal 20 0 - 950 {Cells}/uL [facility].; [employer], [employer]. Monocytes/100 WBC (Bld) 5 % Normal 4 - 12 % H [facility].; [facility], [facility]. Neutrophils (Bld) [#/Vol] 4310 {Cells}/uL Normal 1500 - 7800 {Cells}/uL [facility].; [employer], [employer]. Neutrophils/100 WBC (Bld) 65 % Normal 40 - 75 % [facility] [employer], [employer]. Platelet mean volume (Bld) [Entitic vol] 8.8 fL Normal 7.5 - 12.5 fL [facility].; [employer]. Platelets (Bld) [#/Vol] 246 10*3/uL Normal 140 - 400 10*3/uL [facility].; [employer], [employer]. RBC (Bld) [#/Vol] 4.16 10*6/uL Normal 3.80 - 5.1 0 10*6/uL [employer].; [employer], [employer]. WBC (Bld) [#/Vol] 6.7 10*3/uL Normal 3.8 - 10.8 10*3/uL [employer].; [employer], [employer]. Laboratory - Chemistry and C hemistry - challengeon 12-22-2015 Hemoglobin.gastrointest inal Ql (Stl) Negative Normal [employer].; [employer], [employer]. Laboratory - Chemistry and C hemistry - challengeon 12-03-2015 Calcium [Mass/Vol] 9.9 mg/dL Normal 8.6 - 10. 4 mg/dL [facility].; [employer], [employer]. Chloride [Moles/Vol] 104 mmol/L Normal 98 - 11 0 mmol/L [facility], [facility].; [employer] [facility], [facility]. Cholesterol [Mass/Vol] 156 mg/dL Normal 125 - 200 mg/dL [facility].; [facility], [facility]. Cholesterol in HDL [Mass/Vol] 50 mg/dL Normal [facility], [facility].; [facility], [facility]. Cholesterol in LDL [Mass/Vol] 88 mg/dL Normal [facility], [facility].; [employer] [facility], [facility]. Cholesterol non HDL [Mass/Vol] 106 mg/dL Normal [facility].; [employer] [facility], [facility]. Cholesterol.total/Antonietta sterol in HDL [Mass ratio] 3.1 {ratio} Normal [facility], [facility].; [employer] [facility], [facility]. CO2 [Moles/Vol] 30 mmol/L Normal 20 - 31 mmol/L [facility], [facility].; [employer] [facility], [facility]. Creatinine [Mass/Vol] 0.77 mg/dL Normal 0.50 - 0.99 mg/dL [facility], [facility].; [facility], [facility]. GFR/1.73 sq M.predicted among blacks MDRD (S/P/Bld) [Vol rate/Area] 92 {ML/MIN/1.73M2} Normal [facility], [facility].; [facility], [facility]. GFR/1.73 sq M.predicted MDRD (S/P/Bld) [Vol rate/Area] 79 {ML/MIN/1.73M2} Normal [facility], [facility].; [employer] [facility], [facility]. Glucose [Mass/Vol] 95 mg/dL Normal 65 - 99 mg/dL [facility], [facility].; [employer] [facility], [facility]. Potassium [Moles/Vol] 3.9 mmol/L Normal 3.5 - 5.3 mmol/L [facility], [facility].; [employer] Sodium [Moles/Vol] 141 mmol/L Normal 135 - 146 mmol/L [facility], [facility].; [employer] Triglyceride [Mass/Vol] 92 mg/dL Normal [facility].; [employer] [facility], [facility]. Urea nitrogen [Mass/Vol] 12 mg/dL Normal 7 - 25 mg/dL [facility].; [employer], [employer]. Urea nitrogen/Creatinine [Mass ratio] 16.1 mg/mg Normal 6 - 22 [facility].; [employer]. Laboratory - Hematology and Cell countson 12-03-2015 Basophils (Bld) [#/Vol] 40 {Cells}/uL Normal 0 - 200 {Cells}/uL [facility].; [employer], [employer] Basophils/100 WBC (Bld) 1 % Normal 0 - 1 % H [facility].; [employer], [facility]. Eosinophils (Bld) [#/Vol] 240 {Cells}/uL Normal 15 - 500 {Cells}/uL [facility].; [employer], [employer]. Eosinophils/100 WBC (Bld) 4 % Normal 0 - 4 % [employer] [facility].; [employer], [employer] Erythrocyte distribution width (RBC) [Ratio] 14.0 % Normal 11.0 - 15.0 % [employer].; [employer], [employer]. Hematocrit (Bld) [Volume fraction] 36.0 % Normal 35.0 - 45.0 % [employer].; [employer], [employer]. Hemoglobin (Bld) [Mass/Vol] 11.9 g/dL Normal 11.7 - 15.5 g/dL [employer] [facility].; [employer], [employer]. Lymphocytes (Bld) [#/Vol] 2020 {Cells}/uL Normal 850 - 3900 {Cells}/uL [facility].; [employer], [employer]. Lymphocytes/100 WBC (Bld) 36 % Normal 12 - 47 % [employer].; [employer], [facility]. MCH (RBC) [Entitic mass] 29.2 pg Normal 27.0 - 33.0 PG [employer].; [employer], [employer]. MCHC (RBC) [Mass/Vol] 33.1 g/dL Normal 32.0 - 36.0 g/dL [employer], [employer].; [employer], [employer]. MCV (RBC) [Entitic vol] 88.2 fL Normal 80.0 - 100.0 fL [employer] [facility].; [employer] Monocytes (Bld) [#/Vol] 360 {Cells}/uL Normal 20 0 - 950 {Cells}/uL [facility].; [facility]. Monocytes/100 WBC (Bld) 6 % Normal 4 - 12 % H [facility].; [facility], [facility]. Neutrophils (Bld) [#/Vol] 3010 {Cells}/uL Normal 1500 - 7800 {Cells}/uL [facility].; [employer]. Neutrophils/100 WBC (Bld) 53 % Normal 40 - 75 % [facility].; [employer], [employer]. Platelet mean volume (Bld) [Entitic vol] 9.2 fL Normal 7.5 - 11.5 fL [facility].; [employer], [employer]. Platelets (Bld) [#/Vol] 239 10*3/uL Normal 140 - 400 10*3/uL [facility].; [employer]. RBC (Bld) [#/Vol] 4.09 10*6/uL Normal 3.80 - 5.1 0 10*6/uL [facility].; [employer], [employer]. WBC (Bld) [#/Vol] 5.7 10*3/uL Normal 3.8 - 10.8 10*3/uL [facility].; [employer], [facility]. Laboratory - Chemistry and C hemistry - challengeon 11-28-2014 Hemoglobin.gastrointest inal Ql (Stl) Negative Normal [facility].; [employer] [facility]. Laboratory - Chemistry and C hemistry - challengeon 11-21-2014 Albumin [Mass/Vol] 4.4 g/dL Normal 3.6 - 5.1 g/dL [facility].; [employer], [facility]. Albumin/Globulin [Mass ratio] 1.3 {ratio} Normal 1.0 - 2.5 [facility].; [employer], [employer]. ALP [Catalytic activity/Vol] 77 U/L Normal 33 - 130 U/L [facility].; [employer], [employer] ALT [Catalytic activity/Vol] 10 U/L Normal 6 - 29 U/L [facility].; [facility]. AST [Catalytic activity/Vol] 16 U/L Normal 10 - 35 U/L [facility], [facility]. Bilirubin [Mass/Vol] 0.9 mg/dL Normal 0.2 - 1 .2 mg/dL [facility], [facility]. Calcium [Mass/Vol] 10.4 mg/dL Normal 8.6 - 10. 4 mg/dL [facility].; [facility], [facility]. Chloride [Moles/Vol] 103 mmol/L Normal 98 - 11 0 mmol/L [facility].; [facility], [facility]. Cholesterol [Mass/Vol] 173 mg/dL Normal 125 - 200 mg/dL [facility].; [facility], [facility]. Cholesterol in HDL [Mass/Vol] 54 mg/dL Normal [facility].; [facility]. Cholesterol in LDL [Mass/Vol] 99 mg/dL Normal [facility].; [employer] [facility], [facility]. Cholesterol non HDL [Mass/Vol] 120 mg/dL Normal [facility].; [facility], [facility]. Cholesterol.total/Antonietta sterol in HDL [Mass ratio] 3.2 {ratio} Normal [facility].; [employer] [facility], [facility]. CO2 [Moles/Vol] 28 mmol/L Normal 19 - 30 mmol/L [facility].; [facility], [facility]. Creatinine [Mass/Vol] 0.81 mg/dL Normal 0.50 - 0.99 mg/dL [facility], [facility].; [facility], [facility]. GFR/1.73 sq M.predicted among blacks MDRD (S/P/Bld) [Vol rate/Area] 87 {ML/MIN/1.73M2} Normal [facility], [facility].; [facility], [facility]. GFR/1.73 sq M.predicted MDRD (S/P/Bld) [Vol rate/Area] 75 {ML/MIN/1.73M2} Normal [facility].; [facility], [facility]. Globulin (S) [Mass/Vol] 3.4 g/dL Normal 1.9 - 3.7 g/dL [facility].; [facility], [facility]. Glucose [Mass/Vol] 94 mg/dL Normal 65 - 99 mg/dL [facility].; [facility], [facility]. Potassium [Moles/Vol] 4.3 mmol/L Normal 3.5 - 5.3 mmol/L [facility], [facility].; [facility], [facility] Protein [Mass/Vol] 7.8 g/dL Normal 6.1 - 8.1 g/dL [facility].; [facility], [facility]. Sodium [Moles/Vol] 141 mmol/L Normal 135 - 146 mmol/L [facility].; [facility], [facility]. Triglyceride [Mass/Vol] 102 mg/dL Normal H [facility].; [employer] [facility] TSH Qn 3.01 m[IU]/L Normal 0.40 - 4.50 {mIU/L} [facility].; [employer] [facility], [facility] Urea nitrogen [Mass/Vol] 13 mg/dL Normal 7 - 25 mg/dL [facility].; [employer] [facility], [facility]. Urea nitrogen/Creatinine [Mass ratio] 15.8 mg/mg Normal 6 - 22 [facility].; [employer]. Laboratory - Hematology and Cell countson 11-21-2014 Basophils (Bld) [#/Vol] 60 {Cells}/uL Normal 0 - 200 {Cells}/uL [facility].; [facility] [employer], [facility]. Basophils/100 WBC (Bld) 1 % Normal 0 - 1 % H [facility].; [place] [employer] [facility]. Eosinophils (Bld) [#/Vol] 250 {Cells}/uL Normal 15 - 500 {Cells}/uL [facility].; [facility], [facility]. Eosinophils/100 WBC (Bld) 5 % Abnormal 0 - 4 % [facility].; [place] [facility] [employer] [facility], [facility] Erythrocyte distribution width (RBC) [Ratio] 13.7 % Normal 11.0 - 15.0 % [facility].; [place] [employer] [facility] Hematocrit (Bld) [Volume fraction] 38.5 % Normal 35.0 - 45.0 % [facility].; [facility], [facility]. Hemoglobin (Bld) [Mass/Vol] 12.8 g/dL Normal 11.7 - 15.5 g/dL [facility].; [facility], [facility]. Lymphocytes (Bld) [#/Vol] 2050 {Cells}/uL Normal 850 - 3900 {Cells}/uL [facility].; [facility], [facility]. Lymphocytes/100 WBC (Bld) 38 % Normal 12 - 47 % [facility].; [place] [employer], [facility]. MCH (RBC) [Entitic mass] 29.4 pg Normal 27.0 - 33.0 PG [facility].; [place] [employer], [facility]. MCHC (RBC) [Mass/Vol] 33.2 g/dL Normal 32.0 - 36.0 g/dL [facility].; [place] [employer], [facility]. MCV (RBC) [Entitic vol] 88.4 fL Normal 80.0 - 100.0 fL [facility].; [place] [employer], [facility]. Monocytes (Bld) [#/Vol] 310 {Cells}/uL Normal 20 0 - 950 {Cells}/uL [facility].; [place] [employer], [facility]. Monocytes/100 WBC (Bld) 6 % Normal 4 - 12 % H [facility].; [place] [employer], [facility]. Neutrophils (Bld) [#/Vol] 2770 {Cells}/uL Normal 1500 - 7800 {Cells}/uL [facility].; [place] [employer], [facility]. Neutrophils/100 WBC (Bld) 51 % Normal 40 - 75 % [place] [employer] [facility].; [place] [employer], [facility]. Platelet mean volume (Bld) [Entitic vol] 9.0 fL Normal 7.5 - 11.5 fL [place] [employer] [facility].; [place] [employer], [facility]. Platelets (Bld) [#/Vol] 237 10*3/uL Normal 140 - 400 10*3/uL [place] [employer].; [place] [employer], [employer]. RBC (Bld) [#/Vol] 4.35 10*6/uL Normal 3.80 - 5.1 0 10*6/uL [facility].; [facility]. WBC (Bld) [#/Vol] 5.4 10*3/uL Normal 3.8 - 10.8 10*3/uL [facility].; [place] [employer]. Laboratory - Chemistry and C hemistry - challengeon 11-22-2013 Bilirubin Ql (U) Negative Normal [facility].; [place] [employer] [facility]. Hemoglobin.gastrointest inal Ql (Stl) Negative Normal [facility].; [place] [employer] [facility], [employer]. Ketones Ql (U) Negative Normal [facility].; [place] [employer] [facility], [employer]. pH (U) 6.5 [pH] Normal [facility].; [place] [employer]. Specific gravity (U) [Rel density] <=1.005 Normal [facility].; [place] [employer]. Urobilinogen Qn (U) 0.2 mg/dL Normal [facility].; [place] [employer] [facility] Center[facility]. Laboratory - Hematology and Cell countson 11-22-2013 Hemoglobin Ql (U) small Abnormal [facility].; [place] [employer] [facility]. Laboratory - Specimen inform ationon 11-22-2013 Appearance (U) Clear Normal [facility].; [place] [employer]. Color (U) yellow Normal [facility].; [place] [employer]. Laboratory - Urinalysison Glucose Test strip (U) [Mass/Vol] Negative Normal [facility].; [place] [employer]. Leukocyte esterase Test strip Ql (U) moderate Abnormal [facility].; [place] [employer], [employer]. Nitrite Ql (U) Negative Normal [facility] [place] [employer], [employer]. Protein Ql (U) Negative Normal [facility].; [employer], [employer]. Laboratory - Chemistry and C hemistry - challengeon 11-14-2013 Albumin [Mass/Vol] 4.2 g/dL Normal 3.6 - 5.1 g/dL [facility], [facility]. Albumin/Globulin [Mass ratio] 1.5 {ratio} Normal 1.0 - 2.5 [facility].; [facility], [facility]. ALP [Catalytic activity/Vol] 77 U/L Normal 33 - 130 U/L [facility].; [facility], [facility]. ALT [Catalytic activity/Vol] 9 U/L Normal 6 - 29 U/L [facility].; [facility], [facility]. AST [Catalytic activity/Vol] 16 U/L Normal 10 - 35 U/L [facility].; [facility], [facility]. Bilirubin [Mass/Vol] 0.7 mg/dL Normal 0.2 - 1 .2 mg/dL [facility].; [place] [employer] [facility], [facility]. Calcium [Mass/Vol] 9.7 mg/dL Normal 8.6 - 10. 4 mg/dL [facility].; [facility]. Chloride [Moles/Vol] 105 mmol/L Normal 98 - 11 0 mmol/L [facility].; [place] [employer] [facility], [facility]. Cholesterol [Mass/Vol] 163 mg/dL Normal 125 - 200 mg/dL [facility].; [facility], [facility]. Cholesterol in HDL [Mass/Vol] 47 mg/dL Normal [facility].; [place] [employer] [facility], [facility]. Cholesterol in LDL [Mass/Vol] 94 mg/dL Normal [facility].; [facility], [facility]. Cholesterol non HDL [Mass/Vol] 116 mg/dL Normal [facility].; [place] [employer] [facility], [facility]. Cholesterol.total/Antonietta sterol in HDL [Mass ratio] 3.5 {ratio} Normal [facility].; [facility]. CO2 [Moles/Vol] 29 mmol/L Normal 19 - 30 mmol/L [facility].; [place] [employer] [facility], [facility]. Creatinine [Mass/Vol] 0.79 mg/dL Normal 0.50 - 0.99 mg/dL [facility].; [facility], [facility]. GFR/1.73 sq M.predicted among blacks MDRD (S/P/Bld) [Vol rate/Area] 90 {ML/MIN/1.73M2} Normal [facility], [facility].; [place] [employer] [facility], [facility]. GFR/1.73 sq M.predicted MDRD (S/P/Bld) [Vol rate/Area] 78 {ML/MIN/1.73M2} Normal [facility], [facility].; [place] [employer] [facility], [employer]. Globulin (S) [Mass/Vol] 2.8 g/dL Normal 1.9 - 3.7 g/dL [facility], [facility].; [place] [employer] [facility], [facility]. Glucose [Mass/Vol] 95 mg/dL Normal 65 - 99 mg/dL [facility], [facility].; [place] [employer] [facility], [facility]. Potassium [Moles/Vol] 4.1 mmol/L Normal 3.5 - 5.3 mmol/L [facility], [facility].; [place] [employer] [facility], [facility]. Protein [Mass/Vol] 7.0 g/dL Normal 6.1 - 8.1 g/dL [facility].; [place] [employer], [employer]. Sodium [Moles/Vol] 141 mmol/L Normal 135 - 146 mmol/L [facility], [facility].; [place] [employer], [employer]. Triglyceride [Mass/Vol] 111 mg/dL Normal H [facility].; [place] [employer] [facility], [facility]. Urea nitrogen [Mass/Vol] 9 mg/dL Normal 7 - 25 mg/dL [facility], [facility].; [place] [employer], [facility]. Urea nitrogen/Creatinine [Mass ratio] 11.4 mg/mg Normal 6 - 22 [facility].; [place] [employer]. Laboratory - Hematology and Cell countson 11-14-2013 Basophils (Bld) [#/Vol] 40 {Cells}/uL Normal 0 - 200 {Cells}/uL [place] [employer] [facility] Center[facility].; [employer], [employer]. Basophils/100 WBC (Bld) 1 % Normal [facility].; [place] [employer] [facility], [facility]. Eosinophils (Bld) [#/Vol] 420 {Cells}/uL Normal 15 - 500 {Cells}/uL [facility].; [place] [employer] Eosinophils/100 WBC (Bld) 7 % Normal [facility].; [facility] Erythrocyte distribution width (RBC) [Ratio] 14.1 % Normal 11.0 - 15.0 % [facility]; [facility], [facility] Hematocrit (Bld) [Volume fraction] 36.8 % Normal 35.0 - 45.0 % [facility].; [facility], [facility] Hemoglobin (Bld) [Mass/Vol] 12.2 g/dL Normal 11.7 - 15.5 g/dL [facility].; [facility] Lymphocytes (Bld) [#/Vol] 2370 {Cells}/uL Normal 850 - 3900 {Cells}/uL [facility].; [facility], [facility] Lymphocytes/100 WBC (Bld) 39 % Normal [facility]; [facility], [facility] MCH (RBC) [Entitic mass] 29.6 pg Normal 27.0 - 33.0 PG [facility].; [facility], [facility]. MCHC (RBC) [Mass/Vol] 33.1 g/dL Normal 32.0 - 36.0 g/dL [facility].; [facility], [facility]. MCV (RBC) [Entitic vol] 89.5 fL Normal 80.0 - 100.0 fL [facility].; [facility], [facility]. Monocytes (Bld) [#/Vol] 340 {Cells}/uL Normal 20 0 - 950 {Cells}/uL [facility].; [facility], [facility]. Monocytes/100 WBC (Bld) 6 % Normal [facility].; [facility] Neutrophils (Bld) [#/Vol] 2880 {Cells}/uL Normal 1500 - 7800 {Cells}/uL [facility].; [facility], [facility]. Neutrophils/100 WBC (Bld) 48 % Normal [facility].; [facility], [facility] Platelets (Bld) [#/Vol] 242 10*3/uL Normal 140 - 400 10*3/uL [facility].; [facility], [facility]. RBC (Bld) [#/Vol] 4.11 10*6/uL Normal 3.80 - 5.1 0 10*6/uL [facility].; [facility], [facility]. WBC (Bld) [#/Vol] 6.1 10*3/uL Normal 3.8 - 10.8 10*3/uL [facility], [facility].; [place] [employer] [facility], [facility]. Laboratory - Chemistry and C hemistry - challengeon 11-02-2012 Hemoglobin.gastrointest inal Ql (Stl) Negative Normal [facility].; [place] [employer] Laboratory - Chemistry and C hemistry - challengeon 10-23-2012 Calcium [Mass/Vol] 9.9 mg/dL Normal 8.6 - 10. 4 mg/dL [facility], [facility].; [place] [employer] [facility], [facility]. Chloride [Moles/Vol] 102 mmol/L Normal 98 - 11 0 mmol/L [facility], [facility].; [place] [employer], [facility]. Cholesterol [Mass/Vol] 165 mg/dL Normal 125 - 200 mg/dL [facility], [facility].; [place] [employer], [facility]. Cholesterol in HDL [Mass/Vol] 54 mg/dL Normal [facility], [facility].; [place] [employer], [employer]. Cholesterol in LDL [Mass/Vol] 92 mg/dL Normal [facility].; [place] [employer] [facility], Inc[facility] Cholesterol non HDL [Mass/Vol] 111 mg/dL Normal [facility], [facility].; [place] [employer], [employer]. Cholesterol.total/Antonietta sterol in HDL [Mass ratio] 3.1 {ratio} Normal [facility].; [place] [employer] CO2 [Moles/Vol] 28 mmol/L Normal 19 - 30 mmol/L [facility], [facility].; [place] [employer], [facility]. Creatinine [Mass/Vol] 0.71 mg/dL Normal 0.50 - 0.99 mg/dL [facility], [facility].; [place] [employer] [facility], Inc[employer] GFR/1.73 sq M.predicted among blacks MDRD (S/P/Bld) [Vol rate/Area] 104 {ML/MIN/1.73M2} Normal [facility], [facility].; [place] [employer] GFR/1.73 sq M.predicted MDRD (S/P/Bld) [Vol rate/Area] 89 {ML/MIN/1.73M2} Normal [facility].; [place] [employer] [facility]. Glucose [Mass/Vol] 83 mg/dL Normal 65 - 99 mg/dL [facility], [facility].; [place] [employer], [facility]. Potassium [Moles/Vol] 4.2 mmol/L Normal 3.5 - 5.3 mmol/L [facility].; [place] [employer], [facility]. Sodium [Moles/Vol] 141 mmol/L Normal 135 - 146 mmol/L [facility], [facility].; [place] [employer], [facility] Triglyceride [Mass/Vol] 94 mg/dL Normal H [facility].; [place] [employer] [facility], [facility] TSH Qn 4.13 m[IU]/L Normal 0.40 - 4.50 {mIU/L} [facility].; [place] [employer], [facility] Urea nitrogen [Mass/Vol] 10 mg/dL Normal 7 - 25 mg/dL [facility].; [employer], [employer]. Urea nitrogen/Creatinine [Mass ratio] 13.7 mg/mg Normal 6 - 22 [facility].; [place] [employer], [employer]. Laboratory - Hematology and Cell countson 10-23-2012 Basophils (Bld) [#/Vol] 30 {Cells}/uL Normal 0 - 200 {Cells}/uL [facility].; [employer], [employer]. Basophils/100 WBC (Bld) 0 % Normal 0 - 2 % H [facility].; [place] [employer], [facility]. Eosinophils (Bld) [#/Vol] 290 {Cells}/uL Normal 15 - 500 {Cells}/uL [place] [employer] [facility].; [employer], [employer]. Eosinophils/100 WBC (Bld) 5 % Normal 0 - 8 % [place] [employer] [facility].; [place] [employer], [employer]. Erythrocyte distribution width (RBC) [Ratio] 14.1 % Normal 11.0 - 15.0 % [place] [employer] [facility], [facility].; [employer], [employer] Hematocrit (Bld) [Volume fraction] 39.6 % Normal 35.0 - 45.0 % [facility].; [facility], [facility]. Hemoglobin (Bld) [Mass/Vol] 12.9 g/dL Normal 11.7 - 15.5 g/dL [facility].; [facility], [facility]. Lymphocytes (Bld) [#/Vol] 2150 {Cells}/uL Normal 850 - 3900 {Cells}/uL [facility], [facility].; [facility], [facility]. Lymphocytes/100 WBC (Bld) 34 % Normal 15 - 49 % [facility], [facility].; [facility], [facility]. MCH (RBC) [Entitic mass] 30.0 pg Normal 27.0 - 33.0 PG [facility], [facility].; [facility], [facility]. MCHC (RBC) [Mass/Vol] 32.5 g/dL Normal 32.0 - 36.0 g/dL [facility], [facility].; [facility], [facility]. MCV (RBC) [Entitic vol] 92.4 fL Normal 80.0 - 100.0 fL [facility], [facility].; [facility], [facility]. Monocytes (Bld) [#/Vol] 100 {Cells}/uL Abnormal 20 0 - 950 {Cells}/uL [facility], [facility].; [facility], [facility]. Monocytes/100 WBC (Bld) 2 % Normal 0 - 13 % H [facility].; [facility], [facility]. Neutrophils (Bld) [#/Vol] 3800 {Cells}/uL Normal 1500 - 7800 {Cells}/uL [facility], [facility].; [facility], [facility]. Neutrophils/100 WBC (Bld) 60 % Normal 38 - 80 % [facility], [facility].; [place] [employer] [facility], [facility]. Platelets (Bld) [#/Vol] 254 10*3/uL Normal 140 - 400 10*3/uL [facility], [facility].; [facility], [facility]. RBC (Bld) [#/Vol] 4.28 10*6/uL Normal 3.80 - 5.1 0 10*6/uL [facility], [facility].; [place] [employer] WBC (Bld) [#/Vol] 6.4 10*3/uL Normal 3.8 - 10.8 10*3/uL [facility].; [employer]. Laboratory - Chemistry and C hemistry - challengeon 03-16-2012 TSH Qn 3.95 mU/mL Normal 0.35 - 5.5 mU/mL [facility].; [employer]. Laboratory - Chemistry and C hemistry - challengeon 09-09-2011 Bilirubin Ql (U) Negative Normal [facility] [employer] Ketones Ql (U) Negative Normal [facility].; [employer]. pH (U) 5.5 [pH] Normal 4.6 - 8.0 [place] [employer]; [employer] Specific gravity (U) [Rel density] 1.020 Normal 1.001 - 1.025 [place] [employer] [facility].; [employer]. Laboratory - Hematology and Cell countson 09-09-2011 Hemoglobin Ql (U) Moderate Abnormal [place] [employer].; [employer]. Laboratory - Specimen inform ationon 09-09-2011 Appearance (U) Clear Normal [facility] [employer]. Color (U) yellow Normal [place] [employer] [facility] CenterA[facility]; [employer]. Laboratory - Urinalysison Glucose Test strip (U) [Mass/Vol] Negative Normal [facility].; [employer]. Leukocyte esterase Test strip Ql (U) small Abnormal [facility].; [employer]. Nitrite Ql (U) Negative Normal [facility].; [employer]. Protein Ql (U) Negative Normal [facility].; [employer]. No Panel Informationon 09-08 0.2 mg/dL Normal [employer].; [employer]. Laboratory - Chemistry and C hemistry - challengeon 08-23-2011 Albumin [Mass/Vol] 4.5 g/dL Normal 3.5 - 5.0 g/dL [facility] [employer]. Albumin/Globulin [Mass ratio] 1.7 {ratio} Abnormal [facility].; [facility], [facility]. ALP [Catalytic activity/Vol] 66 U/L Normal 50 - 136 U/L [facility].; [facility], [facility]. ALT [Catalytic activity/Vol] 11 mmol/L Abnormal 12 - 49 mmol/L [facility].; [facility], [facility]. AST [Catalytic activity/Vol] 17 U/L Normal 15 - 37 U/L [facility].; [place] [employer] [facility]. Bilirubin [Mass/Vol] 0.7 mg/dL Normal 0.3 - 1 .0 mg/dL [facility].; [facility], [facility]. Calcium [Mass/Vol] 9.8 mg/dL Normal 8.4 - 10. 6 mg/dL [facility].; [place] [employer] [facility], [facility]. Chloride [Moles/Vol] 105 mmol/L Normal 98 - 11 0 mmol/L [facility].; [place] [employer] [facility], [facility]. Cholesterol [Mass/Vol] 155 mg/dL Normal 0 - 2 00 mg/dL [facility].; [place] [employer] [facility], [facility]. Cholesterol in HDL [Mass/Vol] 51 mg/dL Normal 40 - 60 mg/dL [facility].; [facility], [facility]. Cholesterol in LDL [Mass/Vol] 86 mg/dL Normal 50.0 - 130.0 mg/dL [facility].; [place] [employer] [facility], [facility]. Cholesterol.total/Antonietta sterol in HDL [Mass ratio] 3.0 {ratio} Normal 0 - 5.0 [facility].; [facility]. CO2 [Moles/Vol] 32.0 {joel/L} Normal 22.0 - 32.0 {joel/L} [facility].; [facility], [facility]. Creatinine [Mass/Vol] 0.7 mg/dL Normal 0.6 - 1.4 mg/dL [facility], [facility].; [place] [employer] [facility], [facility]. Globulin (S) [Mass/Vol] 2.6 g/dL Normal 1.5 - 3.8 g/dL [facility].; [place] [employer] [facility], [facility]. Glucose [Mass/Vol] 95 mg/dL Normal 75 - 105 mg/dL [facility], [facility]. Potassium [Moles/Vol] 4.3 mmol/L Normal 3.50 - 5.00 meq/L [facility].; [facility], [facility] Protein [Mass/Vol] 7.1 g/dL Normal 6.4 - 8.2 g/dL [facility].; [facility], [facility] Sodium [Moles/Vol] 141 mmol/L Normal 136 - 145 mmol/L [facility].; [facility], [facility] Triglyceride [Mass/Vol] 89 mg/dL Normal 40 - 150 mg/dL [facility].; [facility], [facility] TSH Qn 5.86 mU/mL Abnormal 0.35 - 5.5 mU/mL [facility], [facility] Urea nitrogen [Mass/Vol] 11 mg/dL Normal 7.0 - 20.0 mg/dL [facility].; [facility], [facility] Urea nitrogen/Creatinine [Mass ratio] 16 mg/mg Normal 0 - 30 [facility].; [facility], [facility] Laboratory - Hematology and Cell countson 08-23-2011 Basophils/100 WBC (Bld) 0.0 % Normal 0.00 - 0.10 [facility].; [facility], [facility]. Basophils/100 WBC (Bld) 0.8 % Normal 0.0 - 2.0 % [facility].; [facility], [facility]. Eosinophils/100 WBC (Bld) 0.30 % Normal 0.00 - 0.50 [facility], [facility] Eosinophils/100 WBC (Bld) 5.5 % Normal 0.0 - 6.0 % [facility].; [facility], [facility] Erythrocyte distribution width (RBC) [Ratio] 13.6 % Normal 12.0 - 15.6 % [facility], [facility].; [facility] [employer] [facility], [facility] Hematocrit (Bld) [Volume fraction] 39.6 % Normal 34 - 44 % [facility].; [facility], [facility] Lymphocytes/100 WBC (Bld) 1.80 % Normal [facility], [facility].; [employer] Lymphocytes/100 WBC (Bld) 30.5 % Normal 20.0 - 45.0 % [facility], [facility].; [place] [employer] [facility], Inc[facility] MCH (RBC) [Entitic mass] 30 pg Normal 27 - 33 pg [facility], [facility].; [employer] MCHC (RBC) [Mass/Vol] 33 g/dL Normal 32 - 36 g/dL [facility], [facility].; [employer] MCV (RBC) [Entitic vol] 91 fL Normal 80 - 99 fL [facility], [facility].; [employer] Monocytes/100 WBC (Bld) 0.40 % Normal [facility], [facility].; [employer] Neutrophils/100 WBC (Bld) 56.4 % Normal 46 - 76 % [facility], [facility].; [employer] Platelet mean volume (Bld) [Entitic vol] 8.5 fL Normal 6.6 - 10.5 fL [facility], [facility].; [employer] Platelets (Bld) [#/Vol] 240 10*9{Cells}/L Normal 150 - 450 10*9{Cells}/ L [facility], [facility].; [employer] RBC (Bld) [#/Vol] 4.36 10*6/uL Normal 4.10 - 5.3 0 10*6/uL [facility], [facility].; [employer] WBC (Bld) [#/Vol] 6.1 10*9{Cells}/L Normal 4.5 - 10.8 10*9{Cells}/ L [facility], [facility].; [employer], [facility]. No Panel Informationon 08-22 3.40 10*6/uL Normal 1.5 - 7.1 10*6/uL [employer] 6.8 % Normal 2.0 - 13.0 % [facility], [facility].; [employer] 13.1 g/dL Normal 11.5 - 14.2 g/dL [facility].; [facility] [employer] [facility]. 84 Normal [facility].; [place] [employer] [facility]. Laboratory - Chemistry and C hemistry - challengeon 02-26-2011 Cholesterol [Mass/Vol] 210 mg/dL Abnormal 0 - 2 00 mg/dL [facility].; [facility] Cholesterol in HDL [Mass/Vol] 58 mg/dL Normal 40 - 60 mg/dL [facility].; [place] [employer] [facility]. Cholesterol in LDL [Mass/Vol] 138 mg/dL Abnormal 50.0 - 130.0 mg/dL [facility].; [place] [employer] [facility]. Cholesterol.total/Antonietta sterol in HDL [Mass ratio] 3.6 {ratio} Normal 0 - 5.0 [facility]; [place] [employer] [facility]. Triglyceride [Mass/Vol] 69 mg/dL Normal 40 - 150 mg/dL [facility].; [employer]. Laboratory - Chemistry and C hemistry - challengeon 08-26-2010 Bilirubin Ql (U) Negative Normal [facility] [employer]. Ketones Ql (U) Negative [facility].; [employer]. pH (U) 5.0 [pH] Normal 4.6 - 8.0 [facility].; [employer]. Specific gravity (U) [Rel density] 1.020 Normal 1.001 - 1.025 [facility].; [employer]. Laboratory - Hematology and Cell countson 08-26-2010 Hemoglobin Ql (U) Abnormal [facility] [employer] [facility].; [employer]. Laboratory - Specimen inform ationon 08-26-2010 Appearance (U) clear Normal [facility] [employer].; [employer]. Color (U) yellow Normal [place] [employer] [facility].; [employer]. Laboratory - Urinalysison Glucose Test strip (U) [Mass/Vol] Negative Normal [employer].; [employer]. Leukocyte esterase Test strip Ql (U) large Abnormal [employer].; [employer]. Nitrite Ql (U) Negative Normal [facility] edith [employer].; [employer]. Protein Ql (U) Negative Normal [facility] [employer].; [employer]. No Panel Informationon 08-26 0.2 mg/dL Normal [employer].; [employer]. Laboratory - Chemistry and C hemistry - challengeon 07-23-2010 ALT [Catalytic activity/Vol] 15 mmol/L Normal 12 - 49 mmol/L [employer].; [employer]. Calcium [Mass/Vol] 10.1 mg/dL Normal 8.4 - 10. 6 mg/dL [employer].; [employer]. Chloride [Moles/Vol] 108 mmol/L Normal 98 - 11 0 mmol/L [employer].; [employer], [employer]. Cholesterol [Mass/Vol] 139 mg/dL Normal 0 - 2 00 mg/dL [employer].; [employer]. Cholesterol in HDL [Mass/Vol] 48 mg/dL Normal 40 - 60 mg/dL [employer].; [employer]. Cholesterol in LDL [Mass/Vol] 80 mg/dL Normal 0 - 100 mg/dL [employer].; [employer]. Cholesterol.total/Antonietta sterol in HDL [Mass ratio] 2.9 {ratio} Normal 0 - 5.0 [employer].; [employer]. CO2 [Moles/Vol] 34.0 {joel/L} Abnormal 22.0 - 32.0 {joel/L} [employer].; [employer]. Glucose [Mass/Vol] 90 mg/dL Normal 60 - 100 mg/dL [employer].; [employer], [employer]. Potassium [Moles/Vol] 4.3 mmol/L Normal 3.5 - 5.0 mmol/L [employer].; [employer], [employer]. Sodium [Moles/Vol] 144 mmol/L Normal 136 - 145 mmol/L [employer].; [employer], [employer]. Triglyceride [Mass/Vol] 57 mg/dL Normal 0 - 150 mg/dL [facility].; [employer]. Urea nitrogen [Mass/Vol] 13 mg/dL Normal 8 - 22 mg/dL [employer].; [employer], [employer]. Laboratory - Chemistry and C hemistry - challengeOrdered By: Janeth Florez on 07-23-2010 Creatinine [Mass/Vol] 0.6 mg/dL Normal 0.5 - 1.2 mg/dL [facility].; [employer]. Work Phone: Laboratory - Hematology and Cell countson 07-23-2010 Basophils/100 WBC (Bld) 0.10 % Normal 0.00 - 0.10 [facility].; [employer] Basophils/100 WBC (Bld) 1.1 % Normal 0.0 - 2.0 % [employer].; [employer], [employer]. Eosinophils/100 WBC (Bld) 0.30 % Normal 0.00 - 0.50 [employer].; [employer], [employer]. Eosinophils/100 WBC (Bld) 6.0 % Normal 0.0 - 6.0 % [employer].; [employer], [employer]. Erythrocyte distribution width (RBC) [Ratio] 13.6 % Normal 12.0 - 15.6 % [employer].; [employer] Hematocrit (Bld) [Volume fraction] 37.3 % Normal 34 - 44 % [employer].; [employer], [employer]. Lymphocytes/100 WBC (Bld) 2.00 % Normal [employer].; [employer], [employer]. Lymphocytes/100 WBC (Bld) 36.3 % Normal 20.0 - 45.0 % [employer], [employer].; [employer] MCH (RBC) [Entitic mass] 31 pg Normal 27 - 33 pg [employer] MCHC (RBC) [Mass/Vol] 34 g/dL Normal 32 - 36 g/dL [facility].; [employer] MCV (RBC) [Entitic vol] 92 fL Normal 80 - 99 fL [facility] [employer] Monocytes/100 WBC (Bld) 0.50 % Normal H [facility], Inc.; [employer] Neutrophils/100 WBC (Bld) 48.3 % Normal 46 - 76 % [facility], [facility].; [employer] Platelet mean volume (Bld) [Entitic vol] 8.3 fL Normal 6.6 - 10.5 fL [facility], [facility].; [employer] Platelets (Bld) [#/Vol] 239 10*9{Cells}/L Normal 150 - 450 10*9{Cells}/ L [facility], [facility].; [employer] RBC (Bld) [#/Vol] 4.07 10*6/uL Abnormal 4.10 - 5.3 0 10*6/uL [facility], [facility].; [employer] WBC (Bld) [#/Vol] 5.5 10*9{Cells}/L Normal 4.5 - 10.8 10*9{Cells}/ L [facility], [facility].; [employer], [facility]. No Panel Informationon 07-23 2.70 10*6/uL Normal 1.5 - 7.1 10*6/uL [employer] 8.3 % Normal 2.0 - 13.0 % [facility], [facility].; [employer] 12.6 g/dL Normal 11.5 - 14.2 g/dL [facility] [employer] [facility].; [employer] Vital Signs Date Time Vital Sign Value Performing Clinician Faci lity 07-27-2024 09:27-0400 Diastolic blood pressure 84 mm[Hg] Dr. Joel Muniz MD Work Phone: [facility] 07-27-2024 09:27-0400 Heart rate 74 /min Dr. Joel Muniz MD Work Phone: [facility] 07-27-2024 09:27-0400 Respiratory rate 18 /min Dr. Joel Muniz MD Work Phone: [facility] 07-27-2024 09:27-0400 SaO2% (BldA) [Mass fraction] 94 % Dr. Joel Muniz MD Work Phone: 3(287)133-778631 [place] [address] 07-27-2024 09:27-0400 Systolic blood pressure 148 mm[Hg] Dr. Joel Muniz MD Work Phone: 5(695)997-230126 [place] [address] 07-13-2024 14:26-0400 Diastolic blood pressure 84 mm[Hg] Dr. Joel Muniz MD Work Phone: 4(087)300-112326 [place] [address] 07-13-2024 14:26-0400 Heart rate 64 /min Dr. Joel Muinz MD Work Phone: 0(687)074-222326 [place] [address] 07-13-2024 14:26-0400 Respiratory rate 18 /min Dr. Joel Muniz MD Work Phone: 8(739)206-137026 [place] [address] 07-13-2024 14:26-0400 SaO2% (BldA) [Mass fraction] 96 % Dr. Joel Mnuiz MD Work Phone: 0(315)496-511026 [place] [address] 07-13-2024 14:26-0400 Systolic blood pressure 179 mm[Hg] Dr. Joel Muniz MD Work Phone: 4(287)734-761831 [place] [address] 07-06-2024 14:31-0400 Body height 160.[address] Joel Muniz MD Work Phone: 0(672)478-652231 [place] [address] 07-06-2024 14:31-0400 Body temperature 98.7 [degF] Dr. Joel Muniz MD Work Phone: 7(060)717-702031 [place] [address] 07-06-2024 14:31-0400 Diastolic blood pressure 69 mm[Hg] Dr. Joel Muniz MD Work Phone: 1(906)731-924031 [place] [address] 07-06-2024 14:31-0400 Heart rate 90 /min Dr. Joel Muniz MD Work Phone: 9(993)779-485931 [place] [address] 07-06-2024 14:31-0400 Respiratory rate 18 /min Dr. Joel Muniz MD Work Phone: 6(582)622-752131 [place] [address] 07-06-2024 14:31-0400 SaO2% (BldA) [Mass fraction] 95 % Dr. Joel Muniz MD Work Phone: 1(621)865-762311 [address] 07-06-2024 14:31-0400 Systolic blood pressure 127 mm[Hg] Dr. Joel Muniz MD Work Phone: 9(492)597-393126 [place] [address] 07-03-2024 10:18-0400 Body height 160.[address] Joel Muniz MD Work Phone: 9(923)176-725526 [place] [address] 07-03-2024 10:18-0400 Body mass index (BMI) [Ratio] 24 kg/m2 Dr. Joel Muniz MD Work Phone: 9(204)653-715826 [place] [address] 07-03-2024 10:18-0400 Body weight 61.[address] Joel Muniz MD Work Phone: 3(641)734-111926 [place] [address] 07-03-2024 10:18-0400 Diastolic blood pressure 91 mm[Hg] Dr. Joel Muniz MD Work Phone: 4(001)206-799226 [place] [address] 07-03-2024 10:18-0400 Heart rate 66 /min Dr. Joel Muniz MD Work Phone: 4(226)609-803926 [place] [address] 07-03-2024 10:18-0400 Respiratory rate 18 /min Dr. Joel Muniz MD Work Phone: 6(064)332-873926 [place] [address] 07-03-2024 10:18-0400 SaO2% (BldA) [Mass fraction] 94 % Dr. Joel Muniz MD Work Phone: 7(443)011-735831 [place] [address] 07-03-2024 10:18-0400 Systolic blood pressure 165 mm[Hg] Dr. Joel Muniz MD Work Phone: 9(146)639-080126 [place] [address] 06-28-2024 14:56-0400 Body mass index (BMI) [Ratio] 23.7 kg/m2 Dr. Joel Muniz MD Work Phone: 7(035)234-919726 [place] [address] 06-28-2024 14:56-0400 Body temperature 97.7 [degF] Dr. Joel Muniz MD Work Phone: 6(989)385-050231 [place] [address] 06-28-2024 14:56-0400 Body weight 60.[address] Joel Muniz MD Work Phone: 6(935)283-349831 [place] [address] 06-28-2024 14:56-0400 Heart rate 76 /min Dr. Joel Muniz MD Work Phone: 7(694)872-386031 [place] [address] 06-28-2024 14:56-0400 Respiratory rate 18 /min Dr. Joel Muniz MD Work Phone: 8(693)461-545926 [place] [address] 06-28-2024 14:56-0400 SaO2% (BldA) [Mass fraction] 94 % Dr. Joel Muniz MD Work Phone: 7(957)236-477731 [place] [address] 06-26-2024 00:49-0400 Body temperature 98 [degF] Dr. Joel Muniz MD Work Phone: 1(777)267-558126 [place] [address] 06-26-2024 00:49-0400 Diastolic blood pressure 80 mm[Hg] Dr. Joel Muniz MD Work Phone: 7(301)720-713531 [place] [address] 06-26-2024 00:49-0400 Heart rate 89 /min Dr. Joel Muniz MD Work Phone: 7(956)562-300531 [place] [address] 06-26-2024 00:49-0400 Respiratory rate 16 /min Dr. Joel Muniz MD Work Phone: 0(024)081-368131 [place] [address] 06-26-2024 00:49-0400 SaO2% (BldA) [Mass fraction] 99 % Dr. Joel Muniz MD Work Phone: 0(535)641-570931 [place] [address] 06-26-2024 00:49-0400 Systolic blood pressure 146 mm[Hg] Dr. Joel Muniz MD Work Phone: 4(995)379-996531 [place] [address] 06-25-2024 20:55-0400 Body height 160.[address] Joel Muinz MD Work Phone: 8(137)005-564131 [place] [address] 06-25-2024 20:55-0400 Body mass index (BMI) [Ratio] 24.5 kg/m2 Dr. Joel Muniz MD Work Phone: 5(652)452-496131 [place] [address] 06-25-2024 20:55-0400 Body weight 62.[address] Joel Muniz MD Work Phone: 4(363)215-375326 [place] [address] 01-17-2024 15:58-0500 Diastolic blood pressure 80 mm[Hg] Chico Collier MD Work Phone: [employer]; [facility]. 01-17-2024 15:58-0500 Systolic blood pressure 120 mm[Hg] Chico Collier MD Work Phone: [employer]; [employer]. 03-03-2023 09:30-0500 Blood Pressure Cuff Size STAN GARCIA DO [facility] 03-03-2023 09:30-0500 Blood Pressure Location STAN GARCIA DO [facility] 03-03-2023 09:30-0500 Blood Pressure Method STAN GARCIA DO [facility] 03-03-2023 09:30-0500 Body temperature 97.16 [degF] STAN RADHA DO [facility] 03-03-2023 09:30-0500 Diastolic Blood Pressure Non-Invasive 60 mm[Hg] STAN RADHA DO [facility] 03-03-2023 09:30-0500 Heart rate 93 /min STAN GARCIA DO [facility] 03-03-2023 09:30-0500 Reason For Taking VItal Signs STAN RADHA DO [facility] 03-03-2023 09:30-0500 Respiratory rate 18 /min STAN GARCIA DO [facility] 03-03-2023 09:30-0500 Systolic Blood Pressure Non-Invasive 108 mm[Hg] STAN RADHA DO [facility] 03-03-2023 05:17-0500 Body temperature 96.8 [degF] STAN BARRETTSHANNON DO [facility] 03-03-2023 05:17-0500 Diastolic Blood Pressure Non-Invasive 70 mm[Hg] STAN VIVEKATZLE DO [facility] 03-03-2023 05:17-0500 Heart rate 73 /min STAN DOYLEATZLE DO [facility] 03-03-2023 05:17-0500 Respiratory rate 16 /min STAN VIVEKATZLE DO [facility] 03-03-2023 05:17-0500 Systolic Blood Pressure Non-Invasive 100 mm[Hg] STAN SCHEATZLE DO [facility] 03-02-2023 21:09-0500 Body temperature 98.42 [degF] STAN VIVEKATZLE DO [facility] 03-02-2023 21:09-0500 Diastolic Blood Pressure Non-Invasive 70 mm[Hg] STAN DOYLEATZLE DO [facility] 03-02-2023 21:09-0500 Heart rate 78 /min STAN VIVEKATZLE DO [facility] 03-02-2023 21:09-0500 Reason For Taking VItal Signs STAN VIVEKATZLE DO [facility] 03-02-2023 21:09-0500 Respiratory rate 16 /min STAN SCHEATZLE DO [facility] 03-02-2023 21:09-0500 Systolic Blood Pressure Non-Invasive 150 mm[Hg] STAN SCHEATZLE DO [facility] 03-02-2023 16:18-0500 Body temperature 97.7 [degF] STAN DOYLEATZLE DO [facility] 03-02-2023 16:18-0500 Heart rate 82 /min STAN DOYLEATZLE DO [facility] 03-02-2023 16:18-0500 Reason For Taking VItal Signs STAN DOYLEATZLE DO [facility] [place] 03-02-2023 11:35-0500 Heart rate 85 /min STAN DOYLEATZLE DO [facility] [place] 03-02-2023 09:10-0500 Blood Pressure Cuff Size STAN DOYLEATZLE DO [facility] [place] 03-02-2023 09:10-0500 Blood Pressure Location STAN DOYLEATZLE DO [facility] [place] 03-02-2023 09:10-0500 Blood Pressure Method STAN DOYLEATZLE DO [facility] [place] 03-02-2023 09:10-0500 Heart rate 88 /min STAN DOYLEATZLE DO [facility] [place] 03-01-2023 08:55-0500 Blood Pressure Cuff Size STAN DOYLEATZLE DO [facility] [place] 03-01-2023 08:55-0500 Blood Pressure Location STAN DOYLEATZLE DO [facility] [place] 03-01-2023 08:55-0500 Blood Pressure Method STAN DOYLEATZLE DO [facility] [place] 02-28-2023 05:00-0500 Body weight 58.6 kg STAN DOYLEATZLE DO [facility] [place] 02-27-2023 09:19-0500 Body temperature 98.06 [degF] STAN VIVEKATZLE DO [facility] 02-26-2023 16:00-0500 Body temperature 97.88 [degF] STAN VIVEKATZLE DO [facility] 02-21-2023 09:10-0500 Body weight 59.4 kg STAN GARCIA DO [facility] 02-15-2023 17:37-0500 Body height 160 cm STAN GARCIA DO [facility] 02-15-2023 17:37-0500 Body weight 59.8 kg STAN GARCIA DO [facility] 02-15-2023 17:37-0500 Body weight 23.36 kg/m2 STAN GARCIA DO [facility] 02-15-2023 11:06-[address] KATINA VALDIVIA MD [facility] 02-15-2023 11:06-[address] KATINA VALDIVIA MD [address] [place] [address] 02-15-2023 11:06-0500 Body temperature 98.06 [degF] DR KATINA VALDIVIA MD [facility] 02-15-2023 11:06-0500 Diastolic Blood Pressure Non-Invasive 51 mm[Hg] DR KATINA VALDIVIA MD [facility] 02-15-2023 11:06-0500 Heart rate 90 /min DR KATINA VALDIVIA MD [facility] 02-15-2023 11:06-0500 Reason For Taking VItal Signs DR KATINA VALDIVIA MD [facility] 02-15-2023 11:06-0500 Respiratory rate 18 /min DR KATINA VALDIVIA MD [facility] 02-15-2023 11:06-0500 Systolic Blood Pressure Non-Invasive 97 mm[Hg] DR KATINA VALDIVIA MD [facility] 02-15-2023 07:36-[address] KATINA VALDIVIA MD [address] [place] [address] 02-15-2023 07:36-[address] KATINA VALDIVIA MD [address] [place] [address] 02-15-2023 07:36-0500 Body temperature 98.42 [degF] DR KATINA VALDIVIA MD [address] [place] [address] 02-15-2023 07:36-0500 Diastolic Blood Pressure Non-Invasive 83 mm[Hg] DR KATINA VALDIVIA MD [address] [place] [address] 02-15-2023 07:36-0500 Heart rate 88 /min DR KATINA VALDIVIA MD [address] [place] [address] 02-15-2023 07:36-0500 Reason For Taking VItal Signs DR KATINA VALDIVIA MD [address] [place] [address] 02-15-2023 07:36-0500 Respiratory rate 16 /min DR KATINA VALDIVIA MD [address] [place] [address] 02-15-2023 07:36-0500 Systolic Blood Pressure Non-Invasive 144 mm[Hg] DR KATINA VALDIVIA MD [address] [place] [address] 02-15-2023 04:03-0500 Body temperature 98.06 [degF] DR KATINA VALDIVIA MD [address] [place] [address] 02-15-2023 04:03-0500 Diastolic Blood Pressure Non-Invasive 79 mm[Hg] DR KATINA VALDIVIA MD [address] [place] [address] 02-15-2023 04:03-0500 Heart rate 86 /min DR KATINA VALDIVIA MD [address] [place] [address] 02-15-2023 04:03-0500 Reason For Taking VItal Signs DR KATINA VALDIVIA MD [address] 02-15-2023 04:03-0500 Respiratory rate 18 /min DR KATINA VALDIVIA MD [address] [place] [address] 02-15-2023 04:03-0500 Systolic Blood Pressure Non-Invasive 106 mm[Hg] DR KATINA VALDIVIA MD [address] [place] [address] 02-14-2023 23:31-0500 Heart rate 84 /min DR KATINA VALDIVIA MD [address] [place] [address] 02-14-2023 18:56-[address] KATINA VALDIVIA MD [address] [place] [address] 02-14-2023 18:56-[address] KATINA VALDIVIA MD [address] [place] [address] 02-14-2023 18:49-0500 Body height [address] KATINA VALDIVIA MD [address] [place] [address] 02-14-2023 18:49-0500 Body weight 57.[address] KATINA VALDIVIA MD [address] [place] [address] 02-14-2023 18:49-0500 Body weight 22.46 kg/m2 DR KATINA VALDIVIA MD [address] [place] [address] 02-13-2023 10:52-0500 Blood Pressure Cuff Size DR KATINA VALDIVIA MD [address] [place] [address] 02-13-2023 07:37-0500 Blood Pressure Cuff Size DR KATINA VALDIVIA MD [address] [place] [address] 02-13-2023 03:21-0500 Heart rate 83 /min DR KATINA VALDIVIA MD [address] [place] [address] 02-12-2023 12:07-0500 Blood Pressure Cuff Size DR KATINA VALDIVIA MD [address] [place] [address] 02-12-2023 05:32-0500 Heart rate 73 /min DR KATINA VALDIVIA MD [address] [place] [address] 02-12-2023 04:01-0500 Heart rate 78 /min DR KATINA VALDIVIA MD [address] [place] [address] 02-11-2023 23:48-0500 Heart rate 78 /min DR KATINA VALDIVIA MD [address] [place] [address] 02-11-2023 23:48-0500 Mean blood pressure 99 mm[Hg] DR KATINA VALDIVIA MD [address] [place] [address] 02-10-2023 19:29-0500 Heart rate 84 /min DR KATINA VALDIVIA MD [address] [place] [address] 02-10-2023 03:32-0500 Mean blood pressure 102 mm[Hg] DR KATINA VALDIVIA MD [address] [place] [address] 02-09-2023 23:03-0500 Body height [address] KATINA VALDIVIA MD [address] [place] [address] 02-09-2023 23:03-0500 Body weight 57.[address] KATINA VALDIVIA MD [address] [place] [address] 02-09-2023 23:03-0500 Body weight 22.46 kg/m2 DR KATINA VALDIVIA MD [address] [place] [address] 02-08-2023 18:00-0500 Mean blood pressure 87 mm[Hg] DR KATINA VALDIVIA MD [address] [place] [address] 02-08-2023 16:22-0500 Body weight 62.[address] KATINA VALDIVIA MD [address] [place] [address] 01-26-2023 14:18-0500 Body weight 59.42 kg Obi Meier LPN [facility]. 01-26-2023 14:18-0500 Diastolic blood pressure 78 mm[Hg] Obi Meier LPN [facility], [facility].; [facility]. 01-26-2023 14:18-0500 Heart rate 79 /min Obi Meier LPN [facility], [facility].; [employer]. 01-26-2023 14:18-0500 Systolic blood pressure 145 mm[Hg] Obi Hardeepeduardo JOHNSON [employer].; [employer]. 01-12-2023 10:38-0500 Diastolic blood pressure 72 mm[Hg] Chico Collier MD Work Phone: [employer].; [employer]. 01-12-2023 10:38-0500 Systolic blood pressure 159 mm[Hg] Chico Collier MD Work Phone: [employer].; [employer]. 01-12-2023 09:49-0500 Body height 152.4 cm Serena Zack [employer] ELIGIBILITY INTERVIEWER Work Phone: [employer].; [employer]. 01-12-2023 09:49-0500 Body mass index (BMI) [Ratio] 25.78 kg/m2 Serena Zack [employer] INTERVIEWER Work Phone: [employer].; [employer]. 01-12-2023 09:49-0500 Body surface area Derived from formula 1.56 m2 Serena Zack [employer]ELF[employer] ELIGIBILITY INTERVIEWER Work Phone: [employer].; [employer]. 01-12-2023 09:49-0500 Body weight 59.88 kg Serena Zack [employer]ELF[employer] ELIGIBILITY INTERVIEWER Work Phone: [employer].; [employer]. 01-12-2023 09:49-0500 Diastolic blood pressure 83 mm[Hg] Serena Zack [employer]ELF[employer] EL[employer]IBILITY INTERVIEWER Work Phone: [employer].; [employer]. 01-12-2023 09:49-0500 Heart rate 68 /min Serena Zack [employer]ELF[employer] ELIGIBILITY INTERVIEWER Work Phone: [employer].; [employer]. 01-12-2023 09:49-0500 Systolic blood pressure 168 mm[Hg] Serena Zack [employer] EL[employer]IBILITY INTERVIEWER Work Phone: [employer].; [facility] [employer]. 04-30-2022 15:29-0400 Body height 152.4 cm Tavia Leavitt LPN [facility], [facility].; [facility] [facility]. 04-30-2022 15:29-0400 Body mass index (BMI) [Ratio] 23.24 kg/m2 Tavia Leavitt LPN [facility] [employer] [facility], [facility]. 04-30-2022 15:29-0400 Body surface area Derived from formula 1.5 m2 Tavia Leavitt LPN [facility], [facility].; [employer] [facility], [facility]. 04-30-2022 15:29-0400 Body weight 53.98 kg Tavia Leavitt LPN [facility], [facility].; [employer] [facility], [facility]. 04-30-2022 15:29-0400 Diastolic blood pressure 61 mm[Hg] Tavia Leavitt LPN [facility], [facility].; [employer] [facility], [facility]. 04-30-2022 15:29-0400 Heart rate 67 /min Tavia Leavitt LPN [facility], [facility].; [employer] [facility], [facility]. 04-30-2022 15:29-0400 Systolic blood pressure 157 mm[Hg] Tavia Leavitt LPN [employer] [facility], [facility].; [employer] [facility], [facility]. 01-06-2022 09:51-0500 Body height 152.4 cm Tavia Leavitt LPN [facility], [facility].; [employer], [facility]. 01-06-2022 09:51-0500 Body mass index (BMI) [Ratio] 22.26 kg/m2 Tavia Leavitt LPN [employer] [facility], [facility].; [employer], [facility]. 01-06-2022 09:51-0500 Body surface area Derived from formula 1.47 m2 Tavia Leavitt LPN [employer] [facility], [facility].; [employer], [facility]. 01-06-2022 09:51-0500 Body weight 51.71 kg Tavia Leavitt LPN [employer] [facility], [facility].; [employer], [facility]. 01-06-2022 09:51-0500 Diastolic blood pressure 64 mm[Hg] [facility]PN [facility] [employer] [facility]. 01-06-2022 09:51-0500 Heart rate 79 /min Tavia Leavitt LPN [facility] [employer] 01-06-2022 09:51-0500 Systolic blood pressure 125 mm[Hg] Tavia Leavitt LPN [facility] [employer] 11-16-2021 15:51-0400 Body height 152.4 cm Serena Zack [employer] EL[employer] INTERVIEWER Work Phone: [facility] [employer], [employer]. 11-16-2021 15:51-0400 Body mass index (BMI) [Ratio] 22.46 kg/m2 Serena Zack [employer] ELIGIBILITY INTERVIEWER Work Phone: [employer], [employer]. 11-16-2021 15:51-0400 Body surface area Derived from formula 1.48 m2 Serena Zack WELFARE ELIGIBILITY INTERVIEWER Work Phone: [employer].; [employer], [employer]. 11-16-2021 15:51-0400 Body weight 52.16 kg Serena Zack WELFARE ELIGIBILITY INTERVIEWER Work Phone: [employer].; [employer] 11-16-2021 15:51-0400 Diastolic blood pressure 79 mm[Hg] Serena Zack WELFARE ELIGIBILITY INTERVIEWER Work Phone: [employer].; [employer]. 11-16-2021 15:51-0400 Heart rate 88 /min Serena Zack WELFARE ELIGIBILITY INTERVIEWER Work Phone: [employer].; [employer]. 11-16-2021 15:51-0400 Systolic blood pressure 135 mm[Hg] Serena Zack WELFARE ELIGIBILITY INTERVIEWER Work Phone: [employer].; [employer] 07-08-2021 10:26-0400 Body height 152.4 cm Serena Zack WELF[employer] ELIGIBILITY INTERVIEWER Work Phone: [employer].; [employer]. 07-08-2021 10:26-0400 Body mass index (BMI) [Ratio] 22.46 kg/m2 Serena Zack [employer] ELIGIBILITY INTERVIEWER Work Phone: [employer].; [employer]. 07-08-2021 10:26-0400 Body surface area Derived from formula 1.48 m2 Serena Zack [employer] ELIGIBILITY INTERVIEWER Work Phone: [employer].; [employer]. 07-08-2021 10:26-0400 Body weight 52.16 kg Serena Zack WELFARE ELIGIBILITY INTERVIEWER Work Phone: [employer].; [employer]. 07-08-2021 10:26-0400 Diastolic blood pressure 88 mm[Hg] Serena Zack W[employer] ELIGIBILITY INTERVIEWER Work Phone: [employer].; [employer]. 07-08-2021 10:26-0400 Systolic blood pressure 160 mm[Hg] Serena Zack WELF[employer] ELIGIBILITY INTERVIEWER Work Phone: [employer].; [employer]. 01-05-2021 10:22-0500 Body height 152.4 cm Serena Zack W[employer] ELIGIBILITY INTERVIEWER Work Phone: [employer].; [employer]. 01-05-2021 10:22-0500 Body mass index (BMI) [Ratio] 22.46 kg/m2 Serena Zack [employer] ELIGIBILITY INTERVIEWER Work Phone: [employer].; [employer]. 01-05-2021 10:22-0500 Body surface area Derived from formula 1.48 m2 Serena Zack W[employer] ELIGIBILITY INTERVIEWER Work Phone: [employer].; [employer]. 01-05-2021 10:22-0500 Body weight 52.16 kg Serena Zack WELF[employer] ELIGIBILITY INTERVIEWER Work Phone: [employer].; [employer]. 01-05-2021 10:22-0500 Diastolic blood pressure 86 mm[Hg] Serena Zack WELFARE ELIGIBILITY INTERVIEWER Work Phone: [employer]. 01-05-2021 10:22-0500 Heart rate 90 /min Serena Zack WELFARE ELIGIBILITY INTERVIEWER Work Phone: [employer].; [employer] 01-05-2021 10:22-0500 Systolic blood pressure 151 mm[Hg] Serena Zack WELFARE ELIGIBILITY INTERVIEWER Work Phone: [employer].; [employer] 08-06-2020 11:07-0400 Body height 152.4 cm Serena Zack WELF[employer] ELIGIBILITY INTERVIEWER Work Phone: [employer].; [employer] 08-06-2020 11:07-0400 Body mass index (BMI) [Ratio] 23.44 kg/m2 Serena Zack [employer] EL[employer]IBILITY INTERVIEWER Work Phone: [employer].; [employer] 08-06-2020 11:07-0400 Body surface area Derived from formula 1.5 m2 Serena Zack W[employer] ELIGIBILITY INTERVIEWER Work Phone: [employer].; [employer] 08-06-2020 11:07-0400 Body weight 54.43 kg Serena Zack WELF[employer] ELIGIBILITY INTERVIEWER Work Phone: [employer].; [employer] 08-06-2020 11:07-0400 Diastolic blood pressure 84 mm[Hg] Serena Zack WELF[employer] ELIGIBILITY INTERVIEWER Work Phone: [employer].; [employer]. 08-06-2020 11:07-0400 Heart rate 79 /min Serena Zack WELF[employer] ELIGIBILITY INTERVIEWER Work Phone: [employer].; [employer] 08-06-2020 11:07-0400 Systolic blood pressure 154 mm[Hg] Serena Zcak WELFARE ELIGIBILITY INTERVIEWER Work Phone: [employer].; [employer] 07-28-2020 10:29-0400 Body weight 54.43 kg Serena Zack WELFARE ELIGIBILITY INTERVIEWER Work Phone: [employer].; [employer] 07-28-2020 10:29-0400 Diastolic blood pressure 82 mm[Hg] Serena Zack WELF[employer] ELIGIBILITY INTERVIEWER Work Phone: [employer].; [employer]. 07-28-2020 10:29-0400 Heart rate 80 /min Serena Zack WELF[employer] ELIGIBILITY INTERVIEWER Work Phone: [employer].; [employer]. 07-28-2020 10:29-0400 Systolic blood pressure 157 mm[Hg] Serena Zack WELF[employer] EL[employer]IBILITY INTERVIEWER Work Phone: [employer].; [employer]. 06-30-2020 10:23-0400 Body height 152.4 cm Serena Zack W[employer] EL[employer]IBILITY INTERVIEWER Work Phone: [employer].; [employer]. 06-30-2020 10:23-0400 Body mass index (BMI) [Ratio] 23.24 kg/m2 Serena Zack [employer] EL[employer] INTERVIEWER Work Phone: [employer].; [employer]. 06-30-2020 10:23-0400 Body surface area Derived from formula 1.5 m2 Serena Zack [employer] EL[employer]IBILITY INTERVIEWER Work Phone: [employer].; [employer]. 06-30-2020 10:23-0400 Body weight 53.98 kg Serena Zack WELF[employer] ELIGIBILITY INTERVIEWER Work Phone: [employer].; [employer]. 06-30-2020 10:23-0400 Diastolic blood pressure 107 mm[Hg] Serena Zack W[employer] ELIGIBILITY INTERVIEWER Work Phone: [employer].; [employer]. 06-30-2020 10:23-0400 Heart rate 87 /min Serena Zack W[employer] EL[employer]IBILITY INTERVIEWER Work Phone: [employer].; [employer]. 06-30-2020 10:23-0400 Systolic blood pressure 177 mm[Hg] Serena Zack W[employer] ELIGIBILITY INTERVIEWER Work Phone: [employer].; [employer] 12-31-2019 09:48-0500 Body height 152.4 cm Serena Zack W[employer] ELIGIBILITY INTERVIEWER Work Phone: [employer].; [employer]. 12-31-2019 09:48-0500 Body mass index (BMI) [Ratio] 21.29 kg/m2 Serena Zack [employer] EL[employer]IBILITY INTERVIEWER Work Phone: [employer].; [employer] 12-31-2019 09:48-0500 Body surface area Derived from formula 1.44 m2 Serena Zack W[employer] ELIGIBILITY INTERVIEWER Work Phone: [employer].; [employer]. 12-31-2019 09:48-0500 Body weight 49.44 kg Serena Zack WELF[employer] ELIGIBILITY INTERVIEWER Work Phone: [employer].; [employer]. 12-31-2019 09:48-0500 Diastolic blood pressure 87 mm[Hg] Serena Zack W[employer] ELIGIBILITY INTERVIEWER Work Phone: [employer].; [employer]. 12-31-2019 09:48-0500 Heart rate 98 /min Serena Zack WELF[employer] ELIGIBILITY INTERVIEWER Work Phone: [employer].; [employer]. 12-31-2019 09:48-0500 Systolic blood pressure 144 mm[Hg] Serena Zack WELF[employer] ELIGIBILITY INTERVIEWER Work Phone: [employer].; [employer]. 10-01-2019 09:13-0400 Body height 157.48 cm Serena Zack WELFARE ELIGIBILITY INTERVIEWER Work Phone: [employer].; [employer]. 10-01-2019 09:13-0400 Body mass index (BMI) [Ratio] 19.75 kg/m2 Serena Zack W[employer] ELIGIBILITY INTERVIEWER Work Phone: [employer].; [employer]. 10-01-2019 09:13-0400 Body surface area Derived from formula 1.47 m2 Serena Zack W[employer] ELIGIBILITY INTERVIEWER Work Phone: [employer].; [employer]. 10-01-2019 09:13-0400 Body weight 48.99 kg Serena Dumonty [employer] ELIGIBILITY INTERVIEWER Work Phone: [employer].; [employer]. 10-01-2019 09:13-0400 Diastolic blood pressure 99 mm[Hg] Serena Zack W[employer] ELIGIBILITY INTERVIEWER Work Phone: [employer].; [employer]. 10-01-2019 09:13-0400 Heart rate 73 /min Serena Zack WELF[employer] ELIGIBILITY INTERVIEWER Work Phone: [employer].; [employer]. 10-01-2019 09:13-0400 Systolic blood pressure 177 mm[Hg] Serenaakshat Dumonty WELFARE ELIGIBILITY INTERVIEWER Work Phone: [employer].; [employer]. 06-28-2019 11:35-0400 Diastolic blood pressure 87 mm[Hg] Chico Collier MD Work Phone: [employer].; [employer]. 06-28-2019 11:35-0400 Systolic blood pressure 150 mm[Hg] Chico Collier MD Work Phone: [employer].; [employer]. 06-28-2019 10:21-0400 Body height 157.48 cm Serenaakshat Dumonty WELFARE ELIGIBILITY INTERVIEWER Work Phone: [employer].; [employer]. 06-28-2019 10:21-0400 Body mass index (BMI) [Ratio] 21.22 kg/m2 Serena Zack W[employer] ELIGIBILITY INTERVIEWER Work Phone: [employer].; [employer]. 06-28-2019 10:21-0400 Body surface area Derived from formula 1.52 m2 Serena Zack W[employer] ELIGIBILITY INTERVIEWER Work Phone: [employer].; [employer]. 06-28-2019 10:21-0400 Body weight 52.62 kg Serena Zack WELF[employer] ELIGIBILITY INTERVIEWER Work Phone: [employer].; [employer]. 06-28-2019 10:21-0400 Diastolic blood pressure 91 mm[Hg] Serena Zack WELF[employer] ELIGIBILITY INTERVIEWER Work Phone: [employer].; [employer]. 06-28-2019 10:21-0400 Heart rate 78 /min Serena Zack WELFARE ELIGIBILITY INTERVIEWER Work Phone: [employer].; [employer]. 06-28-2019 10:21-0400 Systolic blood pressure 169 mm[Hg] Serena Zack WELFARE ELIGIBILITY INTERVIEWER Work Phone: [employer].; [employer]. 12-28-2018 09:51-0500 Body height 157.48 cm Serena Zack WELF[employer] ELIGIBILITY INTERVIEWER Work Phone: [employer].; [employer]. 12-28-2018 09:51-0500 Body mass index (BMI) [Ratio] 20.48 kg/m2 Serena Zack [employer] ELIGIBILITY INTERVIEWER Work Phone: [employer].; [employer]. 12-28-2018 09:51-0500 Body surface area Derived from formula 1.49 m2 Serena Zack WELF[employer] ELIGIBILITY INTERVIEWER Work Phone: [employer].; [employer]. 12-28-2018 09:51-0500 Body weight 50.8 kg Serena Zack WELF[employer] ELIGIBILITY INTERVIEWER Work Phone: [employer].; [employer]. 12-28-2018 09:51-0500 Diastolic blood pressure 81 mm[Hg] Serena Zack WELFARE ELIGIBILITY INTERVIEWER Work Phone: [employer].; [employer] 12-28-2018 09:51-0500 Heart rate 70 /min Serena Zack WELF[employer] ELIGIBILITY INTERVIEWER Work Phone: [employer].; [employer] 12-28-2018 09:51-0500 Systolic blood pressure 145 mm[Hg] Serena Zack WELF[employer] ELIGIBILITY INTERVIEWER Work Phone: [employer] 12-23-2017 09:42-0500 Body height 157.48 cm Serena Zack WELFARE ELIGIBILITY INTERVIEWER Work Phone: [employer].; [employer] 12-23-2017 09:42-0500 Body mass index (BMI) [Ratio] 20.3 kg/m2 Serena Zack W[employer] ELIGIBILITY INTERVIEWER Work Phone: [employer].; [employer] 12-23-2017 09:42-0500 Body surface area Derived from formula 1.49 m2 Serena Zack W[employer] ELIGIBILITY INTERVIEWER Work Phone: [employer].; [employer] 12-23-2017 09:42-0500 Body weight 50.35 kg Serena Zack WELF[employer] ELIGIBILITY INTERVIEWER Work Phone: [employer].; [employer] 12-23-2017 09:42-0500 Diastolic blood pressure 89 mm[Hg] Serena Zack WELF[employer] ELIGIBILITY INTERVIEWER Work Phone: [employer].; [employer] 12-23-2017 09:42-0500 Heart rate 71 /min Serena Zack WELF[employer] ELIGIBILITY INTERVIEWER Work Phone: [employer].; [employer] 12-23-2017 09:42-0500 Systolic blood pressure 148 mm[Hg] Serena Zack WELF[employer] ELIGIBILITY INTERVIEWER Work Phone: [employer].; [employer] 09-19-2017 11:14-0400 Body height 157.48 cm Serena Zack WELF[employer] ELIGIBILITY INTERVIEWER Work Phone: [employer].; [employer]. 09-19-2017 11:14-0400 Body mass index (BMI) [Ratio] 20.12 kg/m2 Serena Zack W[employer] ELIGIBILITY INTERVIEWER Work Phone: [employer].; [employer] 09-19-2017 11:14-0400 Body surface area Derived from formula 1.48 m2 Serena Zack W[employer] ELIGIBILITY INTERVIEWER Work Phone: [employer].; [employer] 09-19-2017 11:14-0400 Body weight 49.9 kg Serenaakshat Dumonty WELF[employer] ELIGIBILITY INTERVIEWER Work Phone: [employer].; [employer] 09-19-2017 11:14-0400 Diastolic blood pressure 90 mm[Hg] Serena Dumonty WELF[employer] ELIGIBILITY INTERVIEWER Work Phone: [employer].; [employer]. 09-19-2017 11:14-0400 Heart rate 71 /min Serena Dumonty WELF[employer] ELIGIBILITY INTERVIEWER Work Phone: [employer].; [employer]. 09-19-2017 11:14-0400 Systolic blood pressure 152 mm[Hg] Serena Dumonty WELF[employer] ELIGIBILITY INTERVIEWER Work Phone: [employer].; [employer] 09-05-2017 09:00-0400 Body height 157.48 cm Serena Dumonty WELF[employer] ELIGIBILITY INTERVIEWER Work Phone: [employer].; [employer] 09-05-2017 09:00-0400 Body mass index (BMI) [Ratio] 20.48 kg/m2 Serena Zack [employer] ELIGIBILITY INTERVIEWER Work Phone: [employer].; [employer] 09-05-2017 09:00-0400 Body surface area Derived from formula 1.49 m2 Serena Zack WELF[employer] ELIGIBILITY INTERVIEWER Work Phone: [employer].; [employer]. 09-05-2017 09:00-0400 Body weight 50.8 kg Serena Zack WELF[employer] ELIGIBILITY INTERVIEWER Work Phone: [employer].; [employer] 09-05-2017 09:00-0400 Diastolic blood pressure 83 mm[Hg] Serena Zack WELF[employer] ELIGIBILITY INTERVIEWER Work Phone: [employer] 09-05-2017 09:00-0400 Heart rate 65 /min Serena Zack WELF[employer] ELIGIBILITY INTERVIEWER Work Phone: [employer].; [employer] 09-05-2017 09:00-0400 Systolic blood pressure 150 mm[Hg] Serena Zack WELF[employer] ELIGIBILITY INTERVIEWER Work Phone: [employer] 08-29-2017 08:59-0400 Body height 157.48 cm Serena Zack WELF[employer] ELIGIBILITY INTERVIEWER Work Phone: [employer].; [employer] 08-29-2017 08:59-0400 Body mass index (BMI) [Ratio] 20.48 kg/m2 Serena Zack [employer] ELIGIBILITY INTERVIEWER Work Phone: [employer].; [employer] 08-29-2017 08:59-0400 Body surface area Derived from formula 1.49 m2 Serena Zack WELF[employer] ELIGIBILITY INTERVIEWER Work Phone: [employer].; [employer] 08-29-2017 08:59-0400 Body weight 50.8 kg Serena Zack WELF[employer] ELIGIBILITY INTERVIEWER Work Phone: [employer].; [employer] 08-29-2017 08:59-0400 Diastolic blood pressure 91 mm[Hg] Serena Zack WELF[employer] ELIGIBILITY INTERVIEWER Work Phone: [employer].; [employer] 08-29-2017 08:59-0400 Heart rate 75 /min Serena Zack WELF[employer] ELIGIBILITY INTERVIEWER Work Phone: [employer].; [employer] 08-29-2017 08:59-0400 Systolic blood pressure 161 mm[Hg] Serena Zack WELF[employer] ELIGIBILITY INTERVIEWER Work Phone: [employer]. 06-24-2017 10:32-0400 Body height 157.48 cm Serena Zack WELF[employer] ELIGIBILITY INTERVIEWER Work Phone: [employer].; [employer]. 06-24-2017 10:32-0400 Body mass index (BMI) [Ratio] 20.3 kg/m2 Serena Zack W[employer] ELIGIBILITY INTERVIEWER Work Phone: [employer]. 06-24-2017 10:32-0400 Body surface area Derived from formula 1.49 m2 Serena Zack WELF[employer] ELIGIBILITY INTERVIEWER Work Phone: [employer].; [employer]. 06-24-2017 10:32-0400 Body weight 50.35 kg Serenaakshat Dumonty WELF[employer] ELIGIBILITY INTERVIEWER Work Phone: [employer].; [employer]. 06-24-2017 10:32-0400 Diastolic blood pressure 94 mm[Hg] Serena Zack WELF[employer] ELIGIBILITY INTERVIEWER Work Phone: [employer]. 06-24-2017 10:32-0400 Heart rate 77 /min Serena Zack WELF[employer] ELIGIBILITY INTERVIEWER Work Phone: [employer]. 06-24-2017 10:32-0400 Systolic blood pressure 175 mm[Hg] Serena Zack WELFARE ELIGIBILITY INTERVIEWER Work Phone: [employer]. 03-24-2017 10:35-0500 Body height 157.48 cm Neilee L Vess WELFARE ELIGIBILITY INTERVIEWER [employer]. 03-24-2017 10:35-0500 Body mass index (BMI) [Ratio] 20.12 kg/m2 Neilee L Vess WELF[employer] ELIGIBILITY INTERVIEWER [employer]. 03-24-2017 10:35-0500 Body surface area Derived from formula 1.48 m2 Neilee L Vess WELFARE ELIGIBILITY INTERVIEWER [employer] 03-24-2017 10:35-0500 Body weight 49.9 kg Neilee L Vess WELFARE ELIGIBILITY INTERVIEWER [email or web address] 03-24-2017 10:35-0500 Diastolic blood pressure 80 mm[Hg] Neilee L Vess WELF[employer] ELIGIBILITY INTERVIEWER [email or web address] 03-24-2017 10:35-0500 Heart rate 80 /min Neilee L Vess WELFARE ELIGIBILITY INTERVIEWER [email or web address]. 03-24-2017 10:35-0500 Systolic blood pressure 144 mm[Hg] Neilee L Vess WELF[employer] ELIGIBILITY INTERVIEWER [email or web address]. 12-22-2016 09:49-0500 Body height 157.48 cm Serena Zack WELF[employer] ELIGIBILITY INTERVIEWER Work Phone: [employer]. 12-22-2016 09:49-0500 Body mass index (BMI) [Ratio] 21.03 kg/m2 Serena Zack W[employer] ELIGIBILITY INTERVIEWER Work Phone: [employer] 12-22-2016 09:49-0500 Body surface area Derived from formula 1.51 m2 Serena Zack WELF[employer] ELIGIBILITY INTERVIEWER Work Phone: [employer]. 12-22-2016 09:49-0500 Body weight 52.16 kg Serena Zack WELF[employer] ELIGIBILITY INTERVIEWER Work Phone: [employer]. 12-22-2016 09:49-0500 Diastolic blood pressure 91 mm[Hg] Serena Zack WELF[employer] ELIGIBILITY INTERVIEWER Work Phone: [employer]. 12-22-2016 09:49-0500 Heart rate 77 /min Serena Zack WELF[employer] ELIGIBILITY INTERVIEWER Work Phone: [employer]. 12-22-2016 09:49-0500 Systolic blood pressure 148 mm[Hg] Serena Zack WELFARE ELIGIBILITY INTERVIEWER Work Phone: [employer] 07-29-2016 09:04-0400 Body height 157.48 cm Neilee L Vess WELFARE ELIGIBILITY INTERVIEWER [email or web address] 07-29-2016 09:04-0400 Body mass index (BMI) [Ratio] 21.58 kg/m2 Neilee L Vess WELF[employer] ELIGIBILITY INTERVIEWER [email or web address] 07-29-2016 09:04-0400 Body surface area Derived from formula 1.53 m2 Neilee L Vess WELFARE ELIGIBILITY INTERVIEWER [email or web address] 07-29-2016 09:04-0400 Body weight 53.52 kg Neilee L Vess WELF[employer] ELIGIBILITY INTERVIEWER [employer] 07-29-2016 09:04-0400 Diastolic blood pressure 85 mm[Hg] Neilee L Vess WELF[employer] ELIGIBILITY INTERVIEWER [employer], [employer] 07-29-2016 09:04-0400 Heart rate 70 /min Neilee L Vess WELFARE ELIGIBILITY INTERVIEWER [employer] 07-29-2016 09:04-0400 Systolic blood pressure 154 mm[Hg] Neilee L Vess WELFARE ELIGIBILITY INTERVIEWER [employer] 12-22-2015 09:53-0500 Body height 157.48 cm Serena Zack WELF[employer] ELIGIBILITY INTERVIEWER Work Phone: [employer] 12-22-2015 09:53-0500 Body mass index (BMI) [Ratio] 23.59 kg/m2 Serena Zack W[employer] ELIGIBILITY INTERVIEWER Work Phone: [employer].; [employer] 12-22-2015 09:53-0500 Body surface area Derived from formula 1.59 m2 Serena Zack WELF[employer] ELIGIBILITY INTERVIEWER Work Phone: [employer]. 12-22-2015 09:53-0500 Body weight 58.51 kg Serena Zack WELF[employer] ELIGIBILITY INTERVIEWER Work Phone: [employer].; [employer] 12-22-2015 09:53-0500 Diastolic blood pressure 92 mm[Hg] Serena Zack WELF[employer] ELIGIBILITY INTERVIEWER Work Phone: [employer].; [employer] 12-22-2015 09:53-0500 Heart rate 81 /min Serena Zack WELFARE ELIGIBILITY INTERVIEWER Work Phone: [employer].; [employer]. 12-22-2015 09:53-0500 Systolic blood pressure 138 mm[Hg] Serena Zack WELFARE ELIGIBILITY INTERVIEWER Work Phone: [employer].; [employer]. 05-19-2015 10:42-0400 Body height 157.48 cm Serena Zack WELFARE ELIGIBILITY INTERVIEWER Work Phone: [employer].; [employer] 05-19-2015 10:42-0400 Body mass index (BMI) [Ratio] 25.61 kg/m2 Serena Zack WELF[employer] ELIGIBILITY INTERVIEWER Work Phone: [employer].; [employer]. 05-19-2015 10:42-0400 Body surface area Derived from formula 1.64 m2 Serena Zack WELFARE ELIGIBILITY INTERVIEWER Work Phone: [employer].; [employer]. 05-19-2015 10:42-0400 Body weight 63.5 kg Serena Zack WELFARE ELIGIBILITY INTERVIEWER Work Phone: [employer].; [employer]. 05-19-2015 10:42-0400 Diastolic blood pressure 91 mm[Hg] Serena Zack WELFARE ELIGIBILITY INTERVIEWER Work Phone: [employer].; [employer]. 05-19-2015 10:42-0400 Heart rate 71 /min Serena Zack WELFARE ELIGIBILITY INTERVIEWER Work Phone: [employer].; [employer]. 05-19-2015 10:42-0400 Systolic blood pressure 180 mm[Hg] Serena Zack WELFARE ELIGIBILITY INTERVIEWER Work Phone: [employer] 11-28-2014 10:00-0400 Body height 157.48 cm Neilee L Vess WELFARE ELIGIBILITY INTERVIEWER [employer] 11-28-2014 10:00-0400 Body mass index (BMI) [Ratio] 24.69 kg/m2 Neilee L Vess WELFARE ELIGIBILITY INTERVIEWER [employer], [employer] 11-28-2014 10:00-0400 Body surface area Derived from formula 1.62 m2 Neilee L Vess WELFARE ELIGIBILITY INTERVIEWER [email or web address], [employer]. 11-28-2014 10:00-0400 Body weight 61.24 kg Neilee L Vess WELFARE ELIGIBILITY INTERVIEWER [email or web address]. 11-28-2014 10:00-0400 Diastolic blood pressure 78 mm[Hg] Neilee L Vess WELFARE ELIGIBILITY INTERVIEWER [email or web address], [employer]. 11-28-2014 10:00-0400 Heart rate 69 /min Neilee L Vess WELFARE ELIGIBILITY INTERVIEWER [employer], [employer]. 11-28-2014 10:00-0400 Systolic blood pressure 152 mm[Hg] Neilee L Vess WELFARE ELIGIBILITY INTERVIEWER [employer], [employer]. 05-29-2014 16:15-0400 Body height 157.48 cm Serena Zack WELFARE ELIGIBILITY INTERVIEWER Work Phone: [employer]. 05-29-2014 16:15-0400 Body mass index (BMI) [Ratio] 26.52 kg/m2 Serena Zack WELFARE ELIGIBILITY INTERVIEWER Work Phone: [employer]. 05-29-2014 16:15-0400 Body surface area Derived from formula 1.67 m2 Serena Zack WELFARE ELIGIBILITY INTERVIEWER Work Phone: [employer]. 05-29-2014 16:15-0400 Body weight 65.77 kg Serena Zack WELFARE ELIGIBILITY INTERVIEWER Work Phone: [employer] 05-29-2014 16:15-0400 Diastolic blood pressure 97 mm[Hg] Serena Zack WELFARE ELIGIBILITY INTERVIEWER Work Phone: [employer] 05-29-2014 16:15-0400 Heart rate 72 /min Serena Zack WELFARE ELIGIBILITY INTERVIEWER Work Phone: [employer]. 05-29-2014 16:15-0400 Systolic blood pressure 192 mm[Hg] Serena Zack WELFARE ELIGIBILITY INTERVIEWER Work Phone: [employer]. 11-22-2013 09:50-0400 Body height 157.48 cm Neilee L Vess WELFARE ELIGIBILITY INTERVIEWER [employer], [employer]. 11-22-2013 09:50-0400 Body mass index (BMI) [Ratio] 25.97 kg/m2 Neilee L Vess WELFARE ELIGIBILITY INTERVIEWER [employer], [employer]. 11-22-2013 09:50-0400 Body surface area Derived from formula 1.65 m2 Neilee L Vess WELFARE ELIGIBILITY INTERVIEWER [employer]. 11-22-2013 09:50-0400 Body weight 64.41 kg Neilee L Vess WELFARE ELIGIBILITY INTERVIEWER [employer], [employer]. 11-22-2013 09:50-0400 Diastolic blood pressure 82 mm[Hg] Neilee L Vess WELFARE ELIGIBILITY INTERVIEWER [employer], [employer]. 11-22-2013 09:50-0400 Heart rate 75 /min Neilee L Vess WELFARE ELIGIBILITY INTERVIEWER [employer], [employer]. 11-22-2013 09:50-0400 Systolic blood pressure 145 mm[Hg] Neilee L Vess WELFARE ELIGIBILITY INTERVIEWER [employer]. 11-02-2012 13:58-0400 Body height 157.48 cm Neilee L Vess WELFARE ELIGIBILITY INTERVIEWER [employer], [facility].; [employer]. 11-02-2012 13:58-0400 Body mass index (BMI) [Ratio] 24.69 kg/m2 Neilee L Vess WELFARE ELIGIBILITY INTERVIEWER [employer]. 11-02-2012 13:58-0400 Body surface area Derived from formula 1.62 m2 Neilee L Vess WELFARE ELIGIBILITY INTERVIEWER [employer]. 11-02-2012 13:58-0400 Body weight 61.24 kg Neilee L Vess WELFARE ELIGIBILITY INTERVIEWER [employer]. 11-02-2012 13:58-0400 Diastolic blood pressure 83 mm[Hg] Neilee L Vess WELFARE ELIGIBILITY INTERVIEWER [employer]. 11-02-2012 13:58-0400 Heart rate 65 /min Neilee L Vess WELFARE ELIGIBILITY INTERVIEWER [employer]. 11-02-2012 13:58-0400 Systolic blood pressure 169 mm[Hg] Neilee L Vess WELFARE ELIGIBILITY INTERVIEWER [employer]. 09-09-2011 09:57-0400 Body height 157.48 cm Neilee L Vess WELFARE ELIGIBILITY INTERVIEWER [employer]. 09-09-2011 09:57-0400 Body mass index (BMI) [Ratio] 23.41 kg/m2 Neilee L Vess WELFARE ELIGIBILITY INTERVIEWER [employer]. 09-09-2011 09:57-0400 Body surface area Derived from formula 1.58 m2 Neilee L Vess WELFARE ELIGIBILITY INTERVIEWER [employer]. 09-09-2011 09:57-0400 Body weight 58.06 kg Neilee L Vess WELFARE ELIGIBILITY INTERVIEWER [employer]. 09-09-2011 09:57-0400 Diastolic blood pressure 79 mm[Hg] Neilee L Vess WELFARE ELIGIBILITY INTERVIEWER [employer]. 09-09-2011 09:57-0400 Heart rate 61 /min Nejustine L Vess WELFARE ELIGIBILITY INTERVIEWER [employer] 09-09-2011 09:57-0400 Systolic blood pressure 145 mm[Hg] Neilee L Vess WELFARE ELIGIBILITY INTERVIEWER [employer] 08-26-2010 10:21-0400 Body height 160.02 cm Serena Zack WELFARE ELIGIBILITY INTERVIEWER Work Phone: [employer] 08-26-2010 10:21-0400 Body mass index (BMI) [Ratio] 22.32 kg/m2 Serena Zack WELFARE ELIGIBILITY INTERVIEWER Work Phone: [employer] 08-26-2010 10:21-0400 Body surface area Derived from formula 1.59 m2 Serena Zack WELFARE ELIGIBILITY INTERVIEWER Work Phone: [employer] 08-26-2010 10:21-0400 Body weight 57.15 kg Serena Zack WELFARE ELIGIBILITY INTERVIEWER Work Phone: [employer] 08-26-2010 10:21-0400 Diastolic blood pressure 81 mm[Hg] Serena Zack WELFARE ELIGIBILITY INTERVIEWER Work Phone: [employer]. 08-26-2010 10:21-0400 Heart rate 58 /min Serena Zack WELFARE ELIGIBILITY INTERVIEWER Work Phone: [employer]. 08-26-2010 10:21-0400 Systolic blood pressure 138 mm[Hg] Serena Zack WELFARE ELIGIBILITY INTERVIEWER Work Phone: [employer]. Encounters Encounter Date Encounter Type Care Provider Facility Start: 07-27-2024 End: 07-27-[address] Jose Matthews MD -[facility] Work Phone: Start: 07-27-2024 End: 07-27-[address] Joel Muniz MD Work Phone: [facility] Work Phone: Start: 07-27-[address] Rahul isaac MD -[facility] Work Phone: Start: 07-13-2024 End: 07-13-[address] Jose Matthews MD -[facility] Work Phone: Start: 07-13-2024 End: 07-13-[address] Joel Muniz MD Work Phone: [facility] Work Phone: Start: 07-06-2024 End: 07-06-[address] Jose Matthews MD -[facility] Work Phone: Start: 07-06-2024 End: 07-06-[address] Joel Muniz MD Work Phone: [facility] Work Phone: Start: 07-03-2024 End: 07-03-2024 Patient encounter procedure Barbara PEREIRA -[facility] Work Phone: Start: 07-03-2024 End: 07-03-[address] Joel Muniz MD Work Phone: [facility] Work Phone: Start: 07-03-2024 End: 07-03-[address] Rahul Shetty MD -[facility] Work Phone: Start: 07-03-[address] [facility] Work Phone: Start: 07-03-2024 End: 07-03-2024 ambulatory Yahaira S Joiff Facility:[facility] Start: 06-29-2024 ambulatory Yahaira S Jolliff Facility: [facility] Start: 06-29-[address] [facility] Work Phone: Start: 06-28-2024 End: 06-28-[address] Jose Matthews MD -[facility] Work Phone: Start: 06-28-2024 End: 06-28-[address] Joel Muniz MD Work Phone: [facility] Work Phone: Start: 06-28-2024 End: 06-28-[address] Rahul Shetty MD -[facility] Work Phone: Start: 06-28-[address] Rahul isaac MD -[facility] Work Phone: Start: 06-27-2024 End: 06-28-[address] Joel Muniz MD Work Phone: [facility] Work Phone: Start: 06-27-2024 End: 06-27-[address] Rahul Shetty MD -[facility] Work Phone: Start: 06-27-[address] Rahul isaac MD -[facility] Work Phone: Start: 06-27-2024 End: 06-27-2024 ambulatory Yahaira Winn Facility:[facility] Start: 06-25-2024 End: 06-26-2024 Emergency department patient visit Dr. Joel Muniz MD Work Phone: -Emergency Department Work Phone: Start: 03-07-2024 ambulatory Chico Vaccarilogan Facili ty:[facility] Start: 02-06-2024 End: 02-06-2024 [facility] Collier [facility]: [facility] Start: 12-10-2023 ambulatory Chico Vaccarilogan Facili ty:[facility] Start: 2023 End: 2023 [facility] Start: 04-07-2023 End: 04-07-2023 ambulatory [facility] Work Phone: Start: 04-07-2023 End: 04-07-2023 Patient encounter procedure [facility]-Cat Scan, [facility] Work Phone: Start: 03-15-2023 End: 03-15-2023 [facility] Col[facility]: [facility] Start: 03-15-2023 Chico mercado MD [facility] Start: 03-09-2023 End: 03-09-2023 Chico Collier MD Work Phone: [employer] Start: 02-15-2023 End: 03-03-2023 Evaluation and management of inpatient STAN GARCIA DO Facility:[facility] Start: 02-15-2023 End: 03-03-2023 Evaluation and management of inpatient STAN GARCIA DO [facility] Start: 02-15-[address] CHICO COLLIER MD Facility:A Start: 02-08-2023 End: 02-15-2023 Evaluation and management of inpatient DR CHICO COLLIER MD Facility:[facility] Start: 02-08-2023 End: 02-15-2023 Evaluation and management of inpatient DR KATINA VALDIVIA MD [facility] Start: 02-08-2023 End: 02-08-2023 Emergency department patient visit GREY CONNOR [facility] Start: 01-27-2023 End: 01-27-2023 Chico Collier MD Work Phone: [employer] Start: 01-26-2023 End: 01-26-2023 ambulatory CHICO COLLIER [facility] Start: 01-26-2023 End: 01-26-2023 Office outpatient visit 15 minutes Chico Collier MD Work Phone: [employer] Start: 01-12-2023 End: 01-14-2023 Patient encounter status Chico Collier MD Work Phone: [employer]; [employer] Start: 01-12-2023 End: 01-14-2023 Chico Collier MD Work Phone: [employer] Start: 12-27-2022 End: 12-27-2022 Chico Collier MD Work Phone: [employer] Start: 12-08-2022 End: 12-14-2022 Chico Collier MD Work Phone: [employer] Start: 06-14-2022 End: 06-14-2022 Chico Collier MD Work Phone: [employer] Start: 06-10-2022 End: 06-11-2022 Emergency department patient visit [facility] Start: 05-21-2022 End: 05-21-2022 Chico Collier MD Work Phone: [employer] [facility] Start: 05-19-2022 End: 05-19-2022 Chico Collier MD Work Phone: [employer] Start: 05-19-2022 End: 05-19-2022 ambulatory [facility] Start: 05-05-2022 End: 05-06-2022 Chico Collier MD Work Phone: [employer] Start: 04-30-2022 End: 04-30-2022 Chico Collier MD Work Phone: [employer] Start: 04-24-2022 End: 04-24-2022 Emergency department patient visit [facility] Start: 01-28-2022 End: 01-28-2022 Chico Collier MD Work Phone: [employer] [facility] Start: 01-06-2022 End: 01-06-2022 Patient encounter status Chico Collier MD Work Phone: [employer]; [employer]. Start: 01-06-2022 End: 01-06-2022 Chico Collier MD Work Phone: [employer]. Start: 12-28-2021 End: 12-28-2021 Chico Collier MD Work Phone: [employer] Start: 12-24-2021 End: 12-24-2021 Chico Collier MD Work Phone: [employer] Start: 11-18-2021 End: 11-18-2021 Chico Collier MD Work Phone: [employer] Start: 11-16-2021 End: 11-18-2021 Chico Collier MD Work Phone: [employer] Start: 07-08-2021 End: 07-08-2021 Chico Collier MD Work Phone: [employer] Start: 01-05-2021 End: 01-05-2021 Patient encounter status Chico Collier MD Work Phone: [employer]; [employer]. Start: 01-05-2021 End: 01-05-2021 Chico Collier MD Work Phone: [employer] Start: 08-06-2020 End: 08-06-2020 Chico Collier MD Work Phone: [employer] Start: 07-28-2020 End: 07-28-2020 Chico Collier MD Work Phone: [employer] Start: 07-28-2020 End: 07-28-2020 Chico Collier MD Work Phone: [employer] Start: 06-30-2020 End: 06-30-2020 Chico Collier MD Work Phone: [employer] Start: 12-31-2019 End: 12-31-2019 Patient encounter status Serena Dixon LPN Work Phone: [employer]; [employer]. Start: 12-31-2019 End: 12-31-2019 Chico Collier MD Work Phone: [employer] Start: 12-24-2019 End: 12-24-2019 Chico Collier MD Work Phone: [employer] Start: 11-27-2019 End: 11-28-2019 Chico Collier MD Work Phone: [employer] Start: 10-01-2019 End: 10-01-2019 Preprocedural examination done Chico Collier MD Work Phone: [employer]; [employer] Start: 10-01-2019 End: 10-01-2019 Chico Collier MD Work Phone: [employer] Start: 06-28-2019 End: 06-28-2019 Office outpatient visit 25 minutes Chico Collier MD Work Phone: [employer] Start: 06-28-2019 End: 06-28-2019 Chico Collier MD Work Phone: [employer] Start: 12-28-2018 End: 12-28-2018 Patient encounter status Chico Collier MD Work Phone: [employer]; [employer] Start: 12-28-2018 End: 12-28-2018 Chico Collier MD Work Phone: [employer] Start: 12-22-2018 End: 12-22-2018 Chico Collier MD Work Phone: [employer] Start: 11-23-2018 End: 11-24-2018 Chico Collier MD Work Phone: [employer]. Start: 12-23-2017 End: 12-23-2017 Patient encounter status Chico Collier MD Work Phone: [employer]. Start: 12-23-2017 End: 12-23-2017 Chico Collier MD Work Phone: [employer]. Start: 12-14-2017 End: 12-14-2017 Chico Collier MD Work Phone: [employer]. Start: 11-17-2017 End: 11-17-2017 Chico Collier MD Work Phone: [employer] Start: 09-19-2017 End: 09-19-2017 Chico Collier MD Work Phone: [employer]. Start: 09-05-2017 End: 09-05-2017 Chico Collier MD Work Phone: [employer] Start: 08-29-2017 End: 08-29-2017 Chico Collier MD Work Phone: [employer] Start: 06-24-2017 End: 06-24-2017 Chico Collier MD Work Phone: [employer] Start: 06-09-2017 End: 06-09-2017 Chico Collier MD Work Phone: [employer]. Start: 03-25-2017 End: 03-25-2017 Chico Collier MD Work Phone: [employer]. Start: 03-24-2017 End: 03-24-2017 Chico Collier MD Work Phone: [employer] Start: 12-23-2016 End: 12-23-2016 Chico Collier MD Work Phone: [employer] Start: 12-22-2016 End: 12-22-2016 Patient encounter status Chico Collier MD Work Phone: [employer]. Start: 12-22-2016 End: 12-22-2016 Chico Collier MD Work Phone: [employer]. Start: 12-13-2016 End: 12-13-2016 Chico Collier MD Work Phone: [employer]. Start: 11-05-2016 End: 11-08-2016 Chico Collier MD Work Phone: [employer]. Start: 08-06-2016 End: 08-06-2016 Chico Collier MD Work Phone: [employer]. Start: 07-29-2016 End: 07-29-2016 Chico Collier MD Work Phone: [employer] Start: 12-22-2015 End: 12-22-2015 Patient encounter status Chico Collier MD Work Phone: [employer]. Start: 12-22-2015 End: 12-22-2015 Chico Collier MD Work Phone: [employer]. Start: 12-03-2015 End: 12-03-2015 Chico Collier MD Work Phone: [employer]. Start: 11-03-2015 End: 11-03-2015 Chico Collier MD Work Phone: [employer]. Start: 11-03-2015 End: 11-03-2015 Chico Collier MD Work Phone: [employer]. Start: 06-11-2015 End: 06-11-2015 Chico Collier MD Work Phone: [employer] Start: 06-06-2015 End: 06-06-2015 Chico Collier MD Work Phone: [employer] Start: 05-28-2015 End: 05-28-2015 Chico Collier MD Work Phone: [employer] Start: 05-19-2015 End: 05-19-2015 Chico Collier MD Work Phone: [employer] Start: 11-28-2014 End: 11-28-2014 Patient encounter status Chico Collier MD Work Phone: [employer]. Start: 11-28-2014 End: 11-28-2014 Chico Collier MD Work Phone: [employer] Start: 11-27-2014 End: 11-27-2014 Chico Collier MD Work Phone: [employer] Start: 11-21-2014 End: 11-21-2014 Chico Collier MD Work Phone: [employer] Start: 10-30-2014 End: 10-31-2014 Chico Collier MD Work Phone: [employer] Start: 10-30-2014 End: 10-30-2014 Chico Collier MD Work Phone: [employer] Start: 05-29-2014 End: 06-20-2014 Chico Collier MD Work Phone: [employer] Start: 11-22-2013 End: 11-22-2013 Patient encounter status Chico Collier MD Work Phone: [employer]; [employer]. Start: 11-22-2013 End: 11-22-2013 Chico Collier MD Work Phone: [employer]. Start: 11-14-2013 End: 11-14-2013 Chico Collier MD Work Phone: [employer] Start: 10-23-2013 End: 10-24-2013 Chico Collier MD Work Phone: [employer] Start: 11-02-2012 End: 11-02-2012 Routine gynecological examination Chico Collier MD Work Phone: [employer]; [employer]. Start: 11-02-2012 End: 11-02-2012 Chico Collier MD Work Phone: [employer]. Start: 10-23-2012 End: 10-23-2012 Chico Collier MD Work Phone: [employer]. Start: 10-05-2012 End: 10-05-2012 Chico Collier MD Work Phone: [employer]. Start: 03-17-2012 End: 03-17-2012 Chico Collier MD Work Phone: [employer] Start: 03-13-2012 End: 03-13-2012 Chico Collier MD Work Phone: [employer] Start: 10-14-2011 End: 10-14-2011 Chico Collier MD Work Phone: [employer] Start: 10-13-2011 End: 10-13-2011 Chico Collier MD Work Phone: [employer]. Start: 09-09-2011 End: 09-09-2011 Chico Collier MD Work Phone: [employer] Start: 08-06-2011 End: 08-06-2011 Chico Collier MD Work Phone: [employer]. Start: 03-05-2011 End: 03-05-2011 Chico Collier MD Work Phone: [employer] Start: 02-26-2011 End: 02-26-2011 Chico Collier MD Work Phone: [employer] Start: 02-22-2011 End: 02-22-2011 Chico Collier MD Work Phone: [employer] Start: 08-26-2010 End: 08-26-2010 Routine gynecological examination Chico Collier MD Work Phone: [facility] Start: 08-26-2010 End: 08-26-2010 Chico Collier MD Work Phone: [facility] Start: 07-09-2010 End: 07-09-2010 Routine general medical examination at a health care facility Chico Collier MD Work Phone: [facility]. Start: 07-09-2010 End: 07-09-2010 Chico Collier MD Work Phone: [facility] Patient encounter status Serena Dixon ALEX Work Phone: [facility] [employer] Patient encounter status Serena Dixon WELFARE ELIGIBILITY INTERVIEWER Work Phone: [facility] [employer]. Procedures Date Procedure Procedure Detail Performing Clinician Start: 06-27-2024 Measurement of occul t blood in stool specimen using immunoassay Dr. Jole Muniz MD Work Phone: Start: 06-26-2024 Urine [...] Comment: URIN ALYSIS Performed By: #### [id number] ####[facility],[address] [place] [id number] Start: 01-26-2023 End: 01-26-2023 Radex hand minimum [...] Start: 01-04-2017 End: 01-04-2017 Bone density scan [facility] Work Phone: Start: 12-22-2016 End: 12-22-2016 Current [...] Start: 11-03-2015 End: 11-17-2015 Mammogram, screening Chico oCllier MD Work Phone: Start: 05-19-2015 End: 05-21-2015 [...] 02-08-1996 End: 02-08-1996 Screening colonoscopy Tavia Cookith WELFARE ELIGIBILITY INTERVIEWER Cholecystectomy Serena Dixon WELFARE ELIGIBILITY INTERVIEWER Work Phone: H/O: hysterectomy Obi Moran on WELFARE ELIGIBILITY INTERVIEWER H/O: hysterectomy Chico leonard MD Work Phone: H/O: hysterectomy Chico leonard MD Work Phone: H/O: hysterectomy Chico leonard MD Work Phone: H/O: hysterectomy Chico leonard MD Work Phone: H/O: hysterectomy Serena Tysonac hy WELFARE ELIGIBILITY INTERVIEWER Work Phone: History of cataract extraction Obi Moranon WELFARE ELIGIBILITY INTERVIEWER History of cataract extraction Chico Collier MD Work Phone: History of cataract extraction Serena Dixon WELFARE ELIGIBILITY INTERVIEWER Work Phone: History of cholecystectomy Sofia Collier MD Work Phone: Total hysterectomy Serena Quinteros chi WELFARE ELIGIBILITY INTERVIEWER Work Phone: Vaccine refused by patient A gretchendeloris Moranon WELFARE ELIGIBILITY INTERVIEWER Vaccine refused by patient Sofia Collier MD Work Phone: Vaccine refused by patient Sofia Collier MD Work Phone: Vaccine refused by patient Sofia Collier MD Work Phone: Vaccine refused by patient Sofia Collier MD Work Phone: Vaccine refused by patient M karen Dixon WELFARE ELIGIBILITY INTERVIEWER Work Phone: Plan of Treatment Date Care Activity Detail Author Start: 06-26-2024 [facility] Start: 06-25-2024 Simple rpr scalp/neck/ax/genit/trunk 7.6-12.5cm RPR S/N/AX/GEN/TRK7.6-12. 5CM [facility] Start: 2023 Blood count complete auto&auto difrntl wbc [facility], [facility].; [facility]. Start: 2023 Comprehensive metabo lic panel [facility].; [employer] Start: 2023 [facility] [employer] Start: 2023 Screening mammograph y bi 2-view breast inc cad [employer] Start: 01-26-2023 Radex hand minimum 3 views [employer] Start: 12-08-2022 Screening mammograph y bi 2-view breast inc cad [employer] Start: 12-24-2021 Screening mammograph y bi 2-view breast inc cad [employer] CBC W Auto Different ial panel - Blood [facility] Patient Education ED Laceration, All Closures [facility] Work Phone: Patient referral [facility] Work Phone: Immunizations Immunization Date Immunization Notes Care Provider [facility] 06-25-2024 tetanus toxoid, reduced diphtheria toxoid, and acellular pertussis vaccine, adsorbed Dr. Joel Muniz MD Work Phone: [facility] 04-10-2020 Chico thakkar MD Work Phone: [employer]. 03-13-2020 Chico thakkar MD Work Phone: [employer]. 11-22-2013 Chico thakkar MD Work Phone: [employer]. 11-22-2013 influenza, seasonal, injectable Chico Collier MD Work Phone: [employer] 06-06-2006 tetanus toxoid, reduced diphtheria toxoid, and acellular pertussis vaccine, adsorbed Chico Collier MD Work Phone: [employer] NEGATED: Highlighted row has not occurred! influenza, injectable, quadrivalent, contains preservative Chico Collier MD Work Phone: [email or web address]; [facility] NEGATED: Highlighted row has not occurred! pneumococcal conjugate vaccine, 13 valent Chico Collier MD Work Phone: [facility].; [facility]. NEGATED: Highlighted row has not occurred! pneumococcal polysaccharide vaccine, 23 valent Chico Colleir MD Work Phone: [facility].; [facility]. NEGATED: Highlighted row has not occurred! zoster vaccine, live Chico Collier MD Work Phone: [email or web address]; [facility] Payers Date Payer Category Payer Self-pay 2022 Medicare [id number] 2022 Unknown [id number] 1945 Unknown [id number] 2.16.8 [id number] 1945 Unknown [id number] 2.16.8 [id number] 1945 Unknown [id number] 2.16.84 [id number] 1945 Unknown [id number] 2.16.84 [id number] 1945 Unknown [id number] 2.16.84 [id number] 1945 Unknown [id number] 2.16.8 [id number] 1945 Unknown [id number] 2.16.8 40.1.097362.3.579.2.627 1945 Unknown [id number] 2.16.8 40.1.908060.3.579.2.627 Unknown Unknown [id number] 2.16.8 [id number] Unknown [id number] 2.16.8 [id number] Unknown [id number] 2.16.8 [id number] Unknown [id number] 2.16.8 [id number] Unknown [id number] 2.16.8 40.1.861317.3.579.2.462 Unknown [id number] 2.16.8 40.1.123942.3.579.2.462 Unknown [id number] 2.16.8 [id number] Unknown [id number] 2.16.8 [id number] Unknown [id number] 2.16.8 [id number] Unknown [id number] 2.16.8 40.1.660684.3.579.2.462 Unknown [id number] 2.16.8 [id number] Unknown [id number] 2.16.8 [id number] Unknown [id number] 2.16.8 [id number] Social History Date Type Detail Facility [facility] [employer].; [facility], [facility]. Retired. [facility] [employer] [facility], [facility]. Tobacco smoking status No Smokin g Status Entered [facility] Start: 1945 Sex Assigned At Female A [facility] Start: 06-25-2024 End: 07-03-2024 Tobacco smoking status OKIS Never smoked tobacco (finding) [facility] Functional Status Date Assessment Result Facility 03-03-2023 Functional Status Room check performed [facility] 03-02-2023 Functional Status [facility] 03-02-2023 Functional Status [facility] 03-02-2023 Functional Status [facility] 03-02-2023 Functional Status 12 [facility] 03-01-2023 Functional Status [facility] 03-01-2023 Functional Status [facility] 03-01-2023 Functional Status [facility] 02-28-2023 Functional Status [facility] 02-28-2023 Functional Status [facility] 02-28-2023 Functional Status [facility] 02-28-2023 Functional Status [facility] 02-27-2023 Functional Status [facility] 02-25-2023 Functional Status Antiembolism S tocking Off/Removed bilateral knee high [facility] 02-24-2023 Functional Status [facility] [place] 02-24-2023 Functional Status 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 - 02/09/23 [facility] 02-23-2023 Functional Status [facility] [place] 02-22-2023 Functional Status Evening Snack Percent 1 00 [facility] 02-22-2023 Functional Status Hospital bed [facility] 02-21-2023 Functional Status Arabella [facility] 02-20-2023 Functional Status Orthotics, Device Worn Per Schedule Yes [facility] 02-19-2023 Functional Status Arabella [facility] 02-18-2023 Functional Status Arabella [facility] 02-18-2023 Functional Status Arabella [facility] 02-17-2023 Functional Status Independent [facility] 02-17-2023 Functional Status [facility] [facility] 02-16-2023 Functional Status Personal ADL Arabella [facility] 02-15-2023 Functional Status Sensory Deficits None A [facility] [place] 02-15-2023 Functional Status Up to Chair Returned to bed [facility] 02-15-2023 Functional Status Room check performed [facility] 02-15-2023 Functional Status Supervised 1 [facility] 02-15-2023 Functional Status Arabella [facility] 02-15-2023 Functional Status Valid [place] N/A l [facility] 02-15-2023 Functional Status Arabella [facility] 02-14-2023 Functional Status bilateral knee high sabas lied/on [facility] 02-14-2023 Functional Status Arabella [facility] 02-14-2023 Functional Status Done Arabella [facility] 02-14-2023 Functional Status Arabella [facility] 02-14-2023 Functional Status 7pm-7am [facility] 02-14-2023 Functional Status Arabella [facility] 02-13-2023 Functional Status Arabella [facility] 02-12-2023 Functional Status Beds/Devices Hospital b ed [facility] 02-12-2023 Functional Status Arabella [facility] 02-12-2023 Functional Status Arabella [facility] 02-11-2023 Functional Status Arabella [facility] 02-11-2023 Functional Status Arabella [facility] 02-10-2023 Functional Status Arabella [facility] 02-10-2023 Functional Status Arabella [facility] 02-10-2023 Functional Status 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 - 02/09/23 Daughter not present at time of OT evaluation but patient was better able to provide history this date and most 6 [facility] 02-10-2023 Functional Status Mod A [facility] 02-09-2023 Functional Status Sensory Deficits None A [facility] 02-09-2023 Functional Status Living Situation Home w [facility] care [facility] 02-09-2023 [facility] Status Date Assessment Result Facility 03-03-2023 Mental Status Oriented x 4 [facility] wn 03-02-2023 Mental Status [facility] wn 03-02-2023 Mental Status [facility] wn 02-26-2023 Mental Status [facility] wn 02-15-2023 Mental Status Oriented x 4 [facility] al 02-15-2023 Mental Status [facility] 02-14-2023 Mental Status [facility] 02-14-2023 Mental Status [facility] al 02-14-[address] [facility] Clinical Notes 02-08-2023 to 07-03-2024 Note Date & Type Note Facility 07-03-2024 Progress note [facility] 06-28-2024 Evaluation note Diagnosis Onset Date Resolution Laceration of forearm, left acute June 28, 2024 2 :25pm Anemia acute July 03, 2024 9:56am Occult blood positive stool acute July 03, 2024 9 :56am [facility] Work Phone: 1(448) 664-357805-22-2025 Evaluation note* Diagnosis Onset Date Resolution Status Admit Date Laceration of forearm, left inactive June 28, 2024 2:25pm Anemia acute July 03, 2024 9:56am Occult blood positive stool acute July 03, 2024 9:56am [facility] Work Phone: 1(721) 674-754705-22-2025 Evaluation note* Diagnosis Onset Date Resolution Status Admit Date Laceration of forearm, left inactive June 28, 2024 2:25pm Anemia acute July 03, 2024 9:56am Occult blood positive stool acute July 03, 2024 9:56am Laceration of forearm, left inactive July 06, 2024 2:14pm [facility] Work Phone: 1(902) 330-721705-22-2025 Evaluation note* Diagnosis Onset Date Resolution Status Admit Date Laceration of forearm, left inactive June 28, 2024 2:25pm Anemia acute July 03, 2024 9:56am Occult blood positive stool acute July 03, 2024 9:56am Laceration of forearm, left inactive July 06, 2024 2:14pm Laceration of forearm, left inactive July 13, 2024 1:56pm [facility] Work Phone: 1(377) 133-113605-19-2025 Radiology Diagnostic study note [facility] Imaging Services [address] [place] [address] [place] [address] Forearm 2 Views MR#: [id number] Acct: [id number] Name: ROSARIO MCNALLY Rep #: [id number] : 1945 F 78 From: Jess Rondon MD PCP: Dr. Yahaira Winn MD Status: REG ER Study:Forearm 2 Views Date of Exam: 06/07 11/01 Exam# [id number] Ordering Dr: Sofia Muniz MD PROCEDURE: FOREARM [...] Mild osteopenia slightly limits thisevaluation. Reading Location: [facility] CC: Dr. Yahaira Winn MD; Dr. Joel Muniz MD ~ Organizational Research Consultant: Signed [facility]01-25-2024 Nurse Progress note Nursing GG Entered On: 03/03/2023 9:32 EST Performed On: 03/03/2023 9:32 EST by Myrna West LPN Nursing GG's OT GG Grid Eating : Independent Myrna West LPN - 03/03/2023 9:32 EST Digitally Signed by Myrna West LPN on 03/03/2023 09:32 AM Arabella [id number] Note Discharge Instructions Thank you for allowing [...] EST Why: Orthopedic follow up - Where: [facility] [address] [place] [phone] Follow Up with CHELSEA MARIN PA-C When 03/17/2023 12:10 PM EST Why: Neurology follow up - Where: [address] [place] [phone] Follow Up with EKATERINA SALAZAR, CHICO Hope When 03/09/2023 01:40 PM EST Why: Take Discharge Instructions to Dr Visit - Where: [address] [place] [address] [phone] Follow Up with URIAH BOCANEGRA MD, Neurosurgery When Only if needed Why: Neurosurgeon - Where: [address] [facility] [place] [address]- [phone] The Following Activity and Diet Have Been [...] - Ordered -- Level of Care [facility], 03/03/23 8:47:42 EST Transfer of Care Code Status - Ordered -- Full Code, Constant Order Transfer of Care Orders Electronically Signed By - Ordered -- 03/03/23 10:00:00 EST, TRACI LANCE APRN-MECHANICAL ENGINEERING OFFICER Transfer of Care Prognosis - Ordered -- [...] by mouth Once a day Pickup at [facility] 172 Unchanged carbidopa-levodopa (carbidopa-levodopa 25 mg-100 mg oral tablet) 1 tab(s) by mouth Four (4) times a day Pickup at [facility]24 Unchanged escitalopram (escitalopram 10 mg oral tablet) 1 tab(s) by mouth Once a day Pickup at [facility] 1724 Unchanged midodrine (midodrine 5 mg oral tablet) 1 tab(s) by mouth Three (3) times a day Pickup at [facility] Pharmacy Information [facility]24: [address] [place], [place] [phone] What How Much When Comments Stop Taking [...] Follow these instructions at home: Medicines Take mljw-sxc-vkbcwse and prescription medicines only as told by [...] 05/21/2013 Document Revised: 01/06/2018 Document Reviewed: 11/03/2017 ipsy Patient Education 2020 LocaMap. Additional Information VACCINATE! IT SAVES LIVES! Members of the community who have not yet received the COVID-19 vaccine and would like to receive it can visit one of [facility] vaccine clinics. There are many vaccine clinic locations within the [facility]. For locations and available times, please visit [email or web address].[place].gov/. It is important to note that some COVID mobile vaccine clinics are held outdoors and may be canceled in rainy or stormy conditions. To learn more about pediatric vaccinations (ages 5-11), we invite you to visit the [employer] [facility] webpage. https://www.[facility].org/pages/3869-Qnark-Xzszhrrudco-Gnbjgnkfrl-Egsfr-Bzm stions.htmlTo learn more about the COVID-19 vaccine, we invite you to visit the CDC website for a list of frequently asked questions.https://www.cdc.gov/coronavirus/2019-ncov/vaccines/faq.html [facility] Patient Portal Access Instructions: Stay connected with your healthcare team and access your personal medical information anytime with the [facility] Patient Portal. Please follow the directions below to create your [facility] account: 1.Access the email account you provided upon registration to the hospital/physician office.2.Look for an invitation email from [facility].3.Open the email and access the invitation link: AcceptInvitation to [facility].4.Fill in the required lujan to create your account. To access your account, visit [employer]/DNS:[employer]OneCeliz. Click the blue button labeled Access Patient [...] who you will allowto register on the [facility] [employer]Chart Patient Portal for access to your information. You can also access the [facility] Patient Portal on the [facility] sabas. Simply click on Patient Portal and then log into your account. If you would like to receive a full copy of your medical records, please contact the [facility] Medical Records Department by calling [phone], Tuesday through Tuesday between 8 a.m. and [...] Call your local pharmacy or go to [email or web address] to find one close to you.3.Make use of household items: Use cat litter or old coffee grounds to dispose medications if other options arenot available. Mix your drugs with these household products, seal them in an airtight container andthrow it into the garbage. Call [facility]: [phone] to be sure your drugs can be [...] COPY. Signatures Patient Education Materials Subarachnoid Hemorrhage, Vsrn-yi-Vfwg Medication Leaflets My discharge plan and instructions have been reviewed and explained to me and I,ROSARIO MCNALLY understand my current condition and have read and understand these discharge instructions. I have received a written copy of the plan/instructions. If I have questions, I am aware that I should contact my doctor. 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/Fur Dry Cleaner Signature: Date/Time: Relationship to Patient: Witness Name/Signature: Date/Time: Arabella [id number] Nurse Progress note Nursing GG Entered On: 03/02/2023 22:09 EST Performed On: 03/02/2023 22:09 EST by Saima Young LPN Nursing GG's OT GG Grid Eating : Independent Saima Young LPN - 03/02/2023 22:09 EST Digitally Signed by Saima Young LPN on 03/02/2023 10:09 PM [facility]ella [id number] Hospital Discharge instructions Patient Education 03/02/2023 18:57:13 Subarachnoid Hemorrhage, Vhnq-gi-Secn Subarachnoid Hemorrhage Subarachnoid hemorrhage is bleeding between [...] Follow these instructions at home: Medicines Take vmtf-iud-zdekypv and prescription medicines only as told by [...] 05/21/2013 Document Revised: 01/06/2018 Document Reviewed: 11/03/2017 ipsy Patient Education 2020 LocaMap. Follow Up Care 02/15/2023 16:57:34 With:URIAH BOCANEGRA MD, Neurosurgery Address: [address] [facility] [place] [address] [phone] When: only if needed Comments:Neurosurgeon - With:CHICO COLLIER MD Address: [address] [place] [address] [place] [address]- [phone] When:03/09/2023 13:40:00 Comments:Take Discharge Instructions to Dr Visit - With:CHELSEA MARIN PA-C Address: [address] [phone] When:03/17/2023 12:10:00 Comments:Neurology follow up - With:CHICO ELIZONDO MD, Orthopedic Address: [facility] [address] [phone] When:03/25/2023 14:00:00 Comments:Orthopedic follow up - Arabella [facility] 01-24-2024 Nurse Progress note Nursing GG Entered On: 03/02/2023 11:33 EST Performed On: 03/02/2023 11:33 EST by Myrna West LPN Nursing GG's OT GG Grid Eating : Independent Myrna West LPN - 03/02/2023 11:33 EST Digitally Signed by Myrna West LPN on 03/02/2023 11:33 AM [facility]ell[facility]al [id number] Physical medicine and rehab Progress note Rehab Note Chief Complaint: Seeing this patient for reevaluation of therapy progress and subarachnoid hemorrhage, right wrist fracture History of Present Illness: Seeing this patient for reevaluation of therapy and subarachnoid hemorrhage. Patient participates in acute inpatient rehabilitation with PT, OT and ST services. 77-year-old female admitted to [facility] from [facility] stay 02/08 - 02/15 who is past medical history of Parkinson's, hypertension, lipidemia, depression, and right lower extremity weakness who originally presented to pulmonary and hospital and was transferred to [facility] after imaging showed subarachnoid hemorrhage. Patient [...] Goal is to transition to SNF in [place]. Denies any concerns about discharge. Tentative discharge [...] Rate80(MAR 01 20:32)80(MAR 01 20:32)80(MAR 01 20:32) SWQ801(MAR 02 05:43)111(MAR 01 08:55)H 152(MAR 01 20:32) [...] ADLs and self-care. Plan respite ECF at [facility] in [place] with long-term goal return back home with [...] GARCIA DO on 03/02/2023 01:44 PM Arabella SingerCamgayhe15-54-1215 Note Subjective Patient states she is doing [...] right upper extremity, neurovascular check intact. 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 Patient is participating in acute inpatient rehab services including PT/OT/APPAREL TRIMMINGS SALES REPRESENTATIVE. Patient status post hospitalizationat [facility] from 02/08 - 02/15 following a fall [...] discharging to an extended care facility, the [facility]. Tentative discharge date 03/03/2023. Medications Medication List [...] Rate84(FEB 28 21:04)84(FEB 28 18:32)84(FEB 28 18:32) IPN613(FEB 28 21:04)92(FEB 28 09:23)130(FEB 28 21:04) DBP72(FEB [...] the right wrist planning orthopedic follow-up at [facility]. Plan transition [facility] long-term goal return to supervision of [...] GARCIA DO on 03/01/2023 03:38 PM Arabella SingerPlwcjgrv64-60-7266 Note Subjective Patient reports that she is [...] right upper extremity, neurovascular check intact. 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 Patient is participating in acute inpatient rehab services including PT/OT/APPAREL TRIMMINGS SALES REPRESENTATIVE. Patient status post hospitalizationat [facility] from 02/08 - 02/15 following a fall [...] discharging to an extended care facility, the [facility]. Tentative discharge date 03/03/2023. Medications (14) Active [...] Rate92(FEB 27 09:19)92(FEB 27 09:19)92(FEB 27 09:19) DJG623(FEB 27:09)L 88(FEB 27:19)H 146(FEB 27 06:05) DBP74(FEB [...] on right wrist [facility]. Plan transition to [facility] respite care March 03 ongoing home care [...] GARCIA DO on 02/28/2023 08:05 PM Arabella SingerNuycqxyt64-37-0746 Note Subjective Patient voices no acute complaints [...] right upper extremity, neurovascular check intact. 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 CONSULTING PSYCHOLOGIST: Aashish Muro, PhD. REASON FOR REFERRAL: Neuropsychological exam. HISTORY OF PRESENT ILLNESS: Ms. Mcnally is a 77-year-old right-handed white female admitted to [facility] from [facility] 02/15/2023 after falling down multiple steps. Brain [...] Includes hypertension, hyperlipidemia, depression. 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 [...] some family history. Ms. Mcnally lives in [place] with her daughter Larisa and Larisa's , [...] time tags, but thought she was in [place] at a facility called [facility]. Verbal attention span is mildly impaired limited [...] later, she recalled only 1/5 words, a iydt-jn-nsghedca deficit score. EXECUTIVE FUNCTIONS: Verbal everyday reasoning based on the judgment test is intact, 8/10 points. Moderately impaired on cognitive estimates, another verbal reasoning measure, 3/6 items correct. Mildto moderately impaired on matrix reasoning, a visual reasoning measure, standard score of 5. Poor insight. Moderately slow on most tasks. CONCLUSIONS: Cognitive testing reveals ikrummmn-oc-uqtwut deficit in verbal memory, but normal visual memory. Normal verbal everyday reasoning, but moderately impaired cognitive estimates. Lfeq-ai-jjtolzdn deficit scores on the verbal and visual [...] right occipital subarachnoid hemorrhage, status post fall. Pbqw-on-cdnlptzl cognitive deficits. 2. 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 3. Parkinson's disorder related cognitive symptoms, typically slowed thinking and attention. 4. Depression by chart review, on Lexapro. AASHISH MURO, PhD GM/NTS JOB#: [id number] DICTATION ID#: [id number] Digitally Signed by AASHISH MURO PhD on 02/23/2023 02:29 PM Arabella DoanJgwkgfek70-45-2659 Note ORIGINAL EXAMINATION: THREE XRAY VIEWS OF [...] Locations *1: This test was performed at: [facility], [address] [place] [address], [address] , [facility] (ID)02-16-2023 Evaluation + Plan noteExtracted from: Title:Clinical Document [...] down 8-10 steps, she was transferred to [facility] after imaging showed subarachnoid hemorrhage. CT [...] was deemed medically stable and transferred to [facility] inpatient rehabilitation unit for physical occupational therapies [...] with daughter single level set up. 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 Safe place to go: Yes. Lives [...] Resp Rate18(FEB 16:56)18(FEB 15 16:40)18(FEB 15 16:40) ICD165(FEB 16 04:56)108(FEB 15 16:40)114(FEB 16 04:56) DBP72(FEB [...] down 8-10 steps, she was transferred to [facility] after imaging showed subarachnoid hemorrhage. CT [...] was deemed medically stable and transferred to [facility] inpatient rehabilitation unit for physical occupational therapies [...] with daughter single level set up. 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 Safe place to go: Yes. Lives [...] Resp Rate18(FEB 16:56)18(FEB 15 16:40)18(FEB 15 16:40) IIS510(FEB 16:56)108(FEB 15 16:40)114(FEB 16:56) DBP72(FEB 16:56)60(FEB 15 [...] STAN GARCIA DO on 02/16/2023 01:57 PM [facility]ctklpyc79-91-1558 Physical medicine and rehab Consult note INPATIENT REHAB HISTORY AND PHYSICAL CONSULTATION DATE OF ADMISSION: 02/15/2023 CC: Falls, subarachnoid hemorrhage Admission History and Physical HISTORY OF PRESENT ILLNESS: This is a 77-year-old female admitted to [facility] from [facility] stay 02/08 - 02/15 who is past medical history of Parkinson's, hypertension, lipidemia, depression, and right lower extremity weakness who originally presented to [facility] and was transferred to [facility] after imaging showed subarachnoid hemorrhage. Patient [...] Patient was deemed medically stable transferred to [facility] for physical and occupational therapy [...] Rate18(FEB 15 16:40)18(FEB 15 16:40)18(FEB 15 16:40) VKR300(FEB 15 16:40)108(FEB 15 16:40)108(FEB 15 16:40) DBP60(FEB [...] will follow during acute [facility] with the [...] IVAN CARDENAS DO on 02/17/2023 09:27 AM [facility] HospitalLsijweri88-99-8511 Hospital Discharge instructions Patient Education 02/15/2023 13:48:18 Subarachnoid Hemorrhage, Elxe-et-Ddte Subarachnoid Hemorrhage Subarachnoid hemorrhage is bleeding between [...] Follow these instructions at home: Medicines Take dikp-ivo-zizfocx and prescription medicines only as told by [...] 05/21/2013 Document Revised: 01/06/2018 Document Reviewed: 11/03/2017 ipsy Patient Education 2020 [employer] Inc. Follow Up Care 02/08/2023 16:21:53 With:[facility], Address:Unknown When:1-2 days With:[facility] Address: When:Within 2 Week(s) With:CHICO COLLIER MD Address: [address] [place] [address] [place] [address] [phone] When:3-7 days [facility] 01-09-2024 Discharge summary Date of Service 02/15/23 [...] hypertension, depression, and hyperlipidemia. Patient presented to [facility] with complaints of fall. Per documentation patient fell down 8-10 steps. she was found confused on walking from various rooms in the house aimlessly and turning on all the lights. CT head showed right occipital subarachnoid hemorrhage. Patient was then transferred to [facility] for further evaluation. patient was evaluated by [...] day. Follow Up Follow Up with [facility] When In 2 weeks Where: Follow Up with CHICO COLLIER MD When Within 3-7 days Where: [address] [place] [address] [place] [address]- [phone] Follow Up Appointments Transfer of Care OT [...] by SHEELA PORRAS on 02/15/2023 01:37 PM [id number] Note Discharge Instructions Thank you for allowing [...] Up Appointments [facility] When Within 1-2 days [facility] with [facility] When In 2 weeks Where: Follow Up with CHICO COLLIER MD When Within 3-7 days Where: [address] [place] [address] [place] [address]- [phone] The Following Activity and Diet Have Been [...] Follow these instructions at home: Medicines Take qoco-qmg-cudfynh and prescription medicines only as told by [...] 05/21/2013 Document Revised: 01/06/2018 Document Reviewed: 11/03/2017 ipsy Patient Education 2020 [employer] Inc[employer] Additional Information VACCINATE! IT SAVES LIVES! Members of the community who have not yet received the COVID-19 vaccine and would like to receive it can visit one of [facility] vaccine clinics. There are many vaccine clinic locations within the [facility]. For locations and available times, please visit https://gettheshot.coronavirus.[place].gov/. It is important to note that some COVID mobile vaccine clinics are held outdoors and may be canceled in rainy or stormy conditions. To learn more about pediatric vaccinations (ages 5-11), we invite you to visit the [facility] webpage. https://www.[facility].org/pages/7572-Msjmp-Aktvekikpot-Rgblzcmncr-Fyxdx-Jfw stions.htmlTo learn more about the COVID-19 vaccine, we invite you to visit the CDC website for a list of frequently asked questions.https://www.cdc.gov/coronavirus/2019-ncov/vaccines/faq.html [facility] Patient Portal Access Instructions: Stay connected with your healthcare team and access your personal medical information anytime with the [facility] Patient Portal. Please follow the directions below to create your [facility] account: 1.Access the email account you provided upon registration to the hospital/physician office.2.Look for an invitation email from [facility].3.Open the email and access the invitation link: AcceptInvitation to [facility].4.Fill in the required lujan to create your account. To access your account, visit [employer]. Click the blue button labeled Access Patient Portal and then log in with the username and password that you created in the steps above. You will be able to view your test results, lab results, a summary of your visits, upcoming appointments and more. There is also a convenient messaging option where you can send secure messages to your [employer]. In addition, you will have the ability to download any documents or summaries to your computer and/or send the information securely to a physician. Remember that your healthcare information is confidential, so carefully consider who you will allowto register on the [facility] Patient Portal for access to your information. You can also access the [facility]Chart Patient Portal on the [facility] sabas. Simply click on Patient Portal and then log into your account. If you would like to receive a full copy of your medical records, please contact the [facility] Medical Records Department by calling [phone], Tuesday through Tuesday between 8 a.m. and [...] Call your local pharmacy or go to [email or web address] to find one close to you.3.Make use of household items: Use cat litter or old coffee grounds to dispose medications if other options arenot available. Mix your drugs with these household products, seal them in an airtight container andthrow it into the garbage. Call [facility]: [phone] to be sure your drugs can be [...] COPY. Signatures Patient Education Materials Subarachnoid Hemorrhage, Nrln-mz-Auqa Medication Leaflets My discharge plan and instructions have been reviewed and explained to me and IDALI CONNIE L understand my current condition and have read and understand these discharge instructions. I have received a written copy of the plan/instructions. If I have questions, I am aware that I should contact my doctor. Patient/Fur Dry Cleaner Signature: Date/Time: Relationship to Patient: Witness Name/Signature: Date/Time: [facility] [id number] Note Discharge Instructions Thank you for allowing [facility] to assist you with your healthcare needs. The following is importantdischarge information regarding your hospital visit. Your Care Team CHICO COLLIER MD Your Diagnosis 3 mm nodule right upper lobe HTN (hypertension) Orthostatic hypotension Parkinson disease Small right occipital SAH s/p fall on 02/06/2023 What to do next Follow Up Appointments Follow Up with [facility], When Within 1-2 days Follow Up with [facility] When In 2 weeks Where: Follow Up with CHICO COLLIER MD When Within 3-7 days Where: [address] [place] [address] [place] [address]- [phone] The Following Activity and Diet Have Been [...] to receive it can visit one of [facility] vaccine clinics. There are many vaccine clinic locations within the [facility]. For locations and available times, please visit [email or web address].coronavirus.[place].gov/. It is important to note that some COVID mobile vaccine clinics are held outdoors and may be canceled in rainy or stormy conditions. To learn more about pediatric vaccinations (ages 5-11), we invite you to visit the [facility] webpage. https://www.[facility].org/pages/5839-Vncgu-Ypdjslvvqnv-Qeysfswfrc-Petmp-Kts stions.htmlTo learn more about the COVID-19 vaccine, we invite you to visit the CDC website for a list of frequently asked questions.https://www.cdc.gov/coronavirus/2019-ncov/vaccines/faq.html [facility] Patient Portal Access Instructions: Stay connected with your healthcare team and access your personal medical information anytime with the [facility] Patient Portal. Please follow the directions below to create your [facility] account: 1.Access the email account you provided upon registration to the hospital/physician office.2.Look for an invitation email from [facility].3.Open the email and access the invitation link: AcceptInvitation to [facility].4.Fill in the required lujan to create your account. To access your account, visit [employer]. Click the blue button labeled Access Patient [...] who you will allowto register on the [facility] Patient Portal for access to your information. You can also access the [facility] Patient Portal on the [facility] sabas. Simply click on Patient Portal and then log into your account. If you would like to receive a full copy of your medical records, please contact the [facility] Medical Records Department by calling [phone], Tuesday through Tuesday between 8 a.m. and [...] Call your local pharmacy or go to [email or web address] to find one close to you.3.Make use of household items: Use cat litter or old coffee grounds to dispose medications if other options arenot available. Mix your drugs with these household products, seal them in an airtight container andthrow it into the garbage. Call [facility]: [phone] to be sure your drugs can be [...] aware that I should contact my doctor. Patient/Fur Dry Cleaner Signature: Date/Time: Relationship to Patient: Witness Name/Signature: Date/Time: [facility] [id number] Discharge summary Date of Service 02/15/23 Discharge [...] Discharge,02/15/23 10:25:00 EST, Discharged to: [facility] [place] Ordered: Discharge Communication Order,Please check orthostatic VS [...] hypertension, depression, and hyperlipidemia. Patient presented to [facility] with complaints of fall. Per documentation patient fell down 8-10 steps. she was found confused on walking from various rooms in the house aimlessly and turning on all the lights. CT head showed right occipital subarachnoid hemorrhage. Patient was then transferred to [facility] for further evaluation. patient was evaluated by [...] day. Follow Up Follow Up with [facility] When In 2 weeks Where: Follow Up with CHICO COLLIER MD When Within 3-7 days Where: [address] [place] [address] [place] [address]- [phone] Follow Up Appointments Transfer of Care OT [...] EST Condition on Discharge Stable Discharge Disposition [facility] Information Provided To Patient Daughter-Larisa Time Spent 32 minutes Digitally Signed by SHEELA PORRAS on 02/15/2023 01:37 PM [facility] [id number] Note Date of Service 02/14/23 Chief Complaint Weakness Subjective Patient is a 77 year old female with a past medical history significant for Parkinson's disease, hypertension, depression, and hyperlipidemia. Patient presented to [facility] with complaints of fall. Per documentation patient fell down 8-10 steps. she was found confused on walking from various rooms in the house aimlessly and turning on all the lights. CT head showed right occipital subarachnoid hemorrhage. Patient was then transferred to [facility] for further evaluation. patient was evaluated by [...] did call the patient's daughter (Larisa Cabral [phone]) via phone. Patient and family verbalizes understanding and are agreeable plan of care. Patient plans to be discharged to [facility] once medically optimized. Discussed with my collaborating physician Dr. Stew Alex This dictation was performed using voice recognition software and may include grammatical and/or spelling errors Orders: Consult to Physician Time Spent 26 minutes Digitally Signed by SHEELA PORRAS on 02/14/2023 01:18 PM [facility] [id number] Note Date of Service 02/14/23 Chief Complaint Weakness Subjective Patient is a 77 year old female with a past medical history significant for Parkinson's disease, hypertension, depression, and hyperlipidemia. Patient presented to [facility] with complaints of fall. Per documentation patient fell down 8-10 steps. she was found confused on walking from various rooms in the house aimlessly and turning on all the lights. CT head showed right occipital subarachnoid hemorrhage. Patient was then transferred to [facility] for further evaluation. patient was evaluated by [...] did call the patient's daughter (Larisa Cabral [phone]) via phone. Patient and family verbalizes understanding and are agreeable plan of care. Patient plans to be discharged to [facility] once medically optimized. Discussed with my collaborating physician Dr. Stew Alex This dictation was performed using voice recognition software and may include grammatical and/or spelling errors Orders: Consult to Physician Time Spent 26 minutes Digitally Signed by SHEELA PORRAS on 02/14/2023 01:18 PM [facility] [id number] Neurology Consult note Date of Service 02/13/23 Reason for Consultation Parkinson's/orthostatic hypotension Referring Physician Dr. Yates History of Present Illness Patient is a 77-year-old female with PMH of Parkinson's per daughter diagnosed 6 years ago by neurologist, and, depression, HLD, recurrent falls at home. 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 However was much worse after she hit [...] commands, Mental Status: Orientation: Oriented to person, [facility] Language: Normal fluency, normal simple comprehension Speech: [...] Strength: 5/5 Tone: Increased in all Coordination: Yeehus-xyvj-iikyuf movements: No ataxia present Reflexes: R: L [...] PLAN: -CT brain without contrast completed at [facility] on 02/08/2023 demonstrates small subarachnoid hemorrhage in [...] to the oncoming team. Alee Méndez MD [facility] Problem List/Past Medical History Ongoing No [...] ALEE MÉNDEZ MD on 02/13/2023 03:46 PM [facility] [id number] Note Date of Service 02/13/23 Chief Complaint Dizziness/Weakness Subjective Patient is a 77 year old female with a past medical history significant for Parkinson's disease, hypertension, depression, and hyperlipidemia. Patient presented to [facility] with complaints of fall. Per documentation patient fell down 8-10 steps. she was found confused on walking from various rooms in the house aimlessly and turning on all the lights. CT head showed right occipital subarachnoid hemorrhage. Patient was then transferred to [facility] for further evaluation. patient was evaluated by [...] daughter at bedside and daughter (Larisa Cabral [phone]) via phone. Patient and family verbalizes understanding and are agreeable plan of care. Discussed with my collaborating physician Dr. adelita yates This dictation was performed using voice recognition software and may include grammatical and/or spelling errors Orders: Consult to Physician Time Spent 41 minutes Digitally Signed by SHEELA PORRAS on 02/13/2023 01:23 PM Digitally Signed by SHEELA PORRAS on 02/13/2023 01:25 PM [facility] [id number] Note Date of Service 02/12/23 Chief Complaint Weakness Subjective Patient is a 77 year old female with a past medical history significant for Parkinson's disease, hypertension, depression, and hyperlipidemia. Patient presented to [facility] with complaints of fall. Per documentation patient fell down 8-10 steps. she was found confused on walking from various rooms in the house aimlessly and turning on all the lights. CT head showed right occipital subarachnoid hemorrhage. Patient was then transferred to [facility] for further evaluation. patient was evaluated by [...] grammatical and/or spelling errors Collaborative Care Team [facility] Medicine Shared/split visit with Sheela Porras APRN-MECHANICAL ENGINEERING OFFICER. Patient seen and examined independently. Care discussed and coordinated by the entire care team under my direction. Discussed with daughters at bedside. Difficult balance of hypertension in the setting of SAH and severe orthostasis - both of which would be potentially catastrophic if not well treated in a rehab setting. Will need inpatient further management. Added fludrocortisone. Increased amlodipine. adelita yates md [facility] Medicine Digitally Signed by SHEELA PORRAS APRN-MECHANICAL ENGINEERING OFFICER on 02/12/2023 02:14 PM Digitally Signed by ADELITA YATES MD FACP on 02/12/2023 04:17 PM [facility] [id number] Neurological surgery Consult note Date of Service 02/09/2023 This is a split/shared consultation with Dr. Bocanegra Reason for Consultation SAH Referring Physician Dr. Rowland History of Present Illness This is a 77-year-old female with a PMH significant for hypertension, hypercholesterolemia, Parkinson's disease with multiple falls who presented to [facility] on 02/08/2023 for evaluation after a presumed [...] For that reason, she was transferred to [facility] ED for further evaluation. History taken from [...] and interpretation. CT head imaging reviewed from [facility]. Assessment/Plan Small right occipital SAH s/p fall on 02/06/2023 CT brain without contrast completed at [facility] on 02/08/2023 demonstrates small subarachnoid hemorrhage in [...] by JEEVAN MARTINEZ on 02/09/2023 09:39 AM [facility] [id number] Neurological surgery Consult note Date of Service 02/09/2023 This is a split/shared consultation with Dr. Bocanegra Reason for Consultation SAH Referring Physician Dr. Rowland History of Present Illness This is a 77-year-old female with a PMH significant for hypertension, hypercholesterolemia, Parkinson's disease with multiple falls who presented to [facility] on 02/08/2023 for evaluation after a presumed [...] For that reason, she was transferred to [facility] ED for further evaluation. History taken from [...] and interpretation. CT head imaging reviewed from [facility]. Assessment/Plan Small right occipital SAH s/p fall on 02/06/2023 CT brain without contrast completed at [facility] on 02/08/2023 demonstrates small subarachnoid hemorrhage in [...] by JEEVAN MARTINEZ on 02/09/2023 09:39 AM [facility] [id number] History and physical note Date of Service [...] REILLY ROWLAND MD on 02/08/2023 08:50 PM [facility] [id number] Note ORIGINAL EXAMINATION: CT CHEST WITH CONTRAST02/08/2023 [...] Date: 02/08/2023 10:26:14 PM Ordering Provider: [facility]01-02-2024 History and physical note Date of [...] REILLY ROWLAND MD on 02/08/2023 08:50 PM [facility] [id number] Note ORIGINAL EXAMINATION: CT OF THE CERVICAL [...] By: Deon Davis Electronically signed By Hank Boroks MD Dictated Date: 02/08/2023 5:30:15 PM Prelim Date: 02/08/2023 6:12:02 PM Sign Date: 02/08/2023 6:55:16 PM Ordering Provider: [facility]01-02-2024 Note ORIGINAL EXAMINATION: ONE XRAY [...] Date: 02/08/2023 6:53:03 PM Ordering Provider: [facility]01-02-2024 Evaluation + Plan noteExtracted from: Title:History [...] not yet verified. They will need reconciled [facility] Evaluation noteNo assessment information available [facility] Work Phone: Hospital course Narrative No data available for this section [facility] Hospital Discharge instructions Additional Instructions Ice and [...] return to the emergency department. Tylenol for pain.[facility] Work Phone: Progress note Author Barbara Ramirez [facility] Note Date/Time July 03, 2024 11:09 am [facility] [address] [place] [address] OFFICE VISIT Date of Service: 07/03/24 MR#: [id number] Acct: [id number] Name: ROSARIO MCNALLY Rep #: [id number] : 1945 Provider: RANDALL Ramirez Age/Sex: 78/F Location: [facility] Status: Signed Intake Vital Signs 06/28/24 [...] POSITIVE HEMOCULT Chief Complaint: occult positive stools [employer] [facility] Required: No Accompanied by: Caregiver Is patient in pain?: No Allergies amoxicillin (From Trimox) Allergy (Verified 07/03/24 10:13) Hives Medications ?Medication ?Instructions ?Recorded ?Confirmed ?Type acetaminophen 650 mg 650 mg PO Q8H 03/28/2307/03 History tablet,extended release atorvastatin 10 mg tablet 10 mg PO QHS 03/28/23 History bisacodyl 10 mg rectal suppository 10 mg OK DAILY PRN 03/28/23 07/03/24 History (Dulcolax (bisacodyl)) [...] testing if a lesion/cancer were found [place] [phone] ROS Const Constitutional: No fatigue, fever(s) or [...] resulting in a large left arm laceration [id number] sutures. Her hemoglobin initially dropped to 9.0 [...] I recommend repeating in one month. Note: [employer] speech recognition newspaper copy editor software was used to create portions of this document. Sound-alike and misspelled words, as well as other newspaper copy editor errors may be contained in the documentation. Coding Level of Care Code Off vis,new,level 4 Diagnoses Anemia D64.9 Occult blood positive stool R19.5 Clinical Quality Measures Falls Risk Screening/Assistive Devices Have you fallen in the past year?: Yes Smoking Screening Smoking Status: Never smoker 07/03/24 1109 <Electronically signed by Barbara PEREIRA> Date _ Barbara PEREIRA Cosigner Signature: Date (if applicable) CC: ~ [facility] Work Phone: Reason for referral (narrative)No reason for referral information availableWOhioHealth [facility] Work Phone: Summary Purpose Family History [...] Do you have a Healthcare Power of Bead Worker Sewing? Yes June 25, 2024 9:00pm Chief Complaint and Reason for Visit Chief Complaint Personal history of other diseases of the circulat Chief Complaint Admit Date LACERATION June 25, 2024 8:54p m Chief Complaint Admit Date LACERATION June 25, 2024 8:54p m ED FOLLOW UP June 28, 2024 2:25p m HALF-WAY LAB WORK July 03, 2024 4:0 0am ANEMIA POSITIVE HEMOCULT July 03, 2024 9:56am Reason for Visit Admit Date Laceration of forearm, left June 28 2:25pm Anemia July 03, 2024 9:56a m Occult blood positive stool July 03 9:56am Chief Complaint Admit Date LACERATION June 25, 2024 8:54p m ED FOLLOW UP June 28, 2024 2:25p m HALF-WAY LAB WORK July 03, 2024 4:0 0am ANEMIA POSITIVE HEMOCULT July 03, 2024 9:56am 1 W FU July 06, 2024 2:14p m Chief Complaint Admit Date LACERATION June 25, 2024 8:54p m ED FOLLOW UP June 28, 2024 2:25p m HALF-WAY LAB WORK July 03, 2024 4:0 0am [...] Date LACERATION June 25, 2024 8:54p m HALF-WAY LAB WORK June 27, 2024 5:0 0am HALF-WAY LAB WORK June 28, 2024 5:0 0am ED FOLLOW UP June 28, 2024 2:25p m HALF-WAY LAB WORK July 03, 2024 4:0 0am [...] Date LACERATION June 25, 2024 8:54p m HALF-WAY LAB WORK June 27, 2024 5:0 0am HALF-WAY LAB WORK June 28, 2024 5:0 0am ED FOLLOW UP June 28, 2024 2:25p m HALF-WAY LAB WORK July 03, 2024 4:0 0am ANEMIA POSITIVE HEMOCULT July 03, 2024 9:56am 1 W FU July 06, 2024 2:14p m 1 W FU July 13, 2024 1:56p m 2 W FU July 27, 2024 9:16 am Additional Source Comments INFORMATION SOURCE (unrecogn ized section and content) DATE CREATED AUTHOR 12/30/2022 [facility] DATE CREATED AUTHOR AUTHOR'S ORGANIZ ATION 02/22/2023 [facility] DATE CREATED AUTHOR AUTHOR'S ORGANIZ ATION 03/05/2023 [facility] ([place]) DATE CREATED AUTHOR AUTHOR'S ORGANIZ ATION 07/29/2024 [facility] Patient Care team informatio n (unrecognized [...] BE BASED ON THE PRIMARY CLINICAL RECORDS. [facility]. provides no warranty or guarantee of the accuracy or completeness of information in this document.
[2024-07-31 09:03] LABS: Hemoglobin A1c 5.2 % (<=5.6)
== END ==
PROVIDERS: PCP Family Medicine; Visit Provider Family Medicine
DX: R82.4 Acetonuria (principal); R63.1 Polydipsia; I10 Essential (primary) hypertension
CPT/HCPCS: 36415; 83036

== ENCOUNTER → 2024-08-02 | Outpatient (REF) | payer MEDICARE, OTHER, SELFPAY ==
[2024-08-02 09:17] LABS: Absolute Lymphocyte Count 1.11 X10^3/uL (0.83-4.51); Absolute Neutrophil Count 6.7 X10^3/uL (2.0-7.7); Basophil# 0.04 X10^3/uL; Basophil% 0.5 % (0-1); Eosinophil# 0.17 X10^3/uL; Eosinophils% 1.9 % (0-5); Hemoglobin 10.1 g/dL (12.0-15.0); Lymphocyte # 1.11 X10^3/ul (0.83-4.51); Lymphocyte % 12.6 % (19-41); Mean Corp Hgb Conc 32.6 g/dL (32-36); Mean Corpuscular Hgb 29.6 pg (27.0-32.0); Mean Corpuscular Volume 90.9 fL (81-99); Mean Platelet Vol. 10.3 fl (6.2-12.0); Monocyte# 0.72 X10^3/uL; Monocyte% 8.2 % (0-10); NRBC Flagged by Analyzer 0 % (0-5); Neutrophil # 6.72 X10^3/uL (2.7-7.7); Neutrophil % 76.5 % (47-70); Platelet Count 303 K/mm3 (150-450); Red Blood Count 3.41 M/mm3 (4.2-5.4); White Blood Count 8.8 K/mm3 (4.4-11.0)
== END ==
PROVIDERS: PCP Family Medicine
DX: D64.9 Anemia, unspecified (principal)
CPT/HCPCS: 36415; 85025

== ENCOUNTER → 2024-08-15 09:00 | Outpatient (REF) | payer MEDICARE, OTHER, SELFPAY ==
[2024-08-15 10:57] LABS: Mucous, Urine 0 SEEN /hpf (<or=2+)
[2024-08-15 11:07] LABS: Color, Urine Yellow (Yellow); Glucose, Dipstick Normal (Normal); Ketone-Dipstick 5 mg/dl (Negative); Leukocyte Esterase-Dipstick Negative /ul (Negative); Nitrite-Dipstick Negative (Negative); Occult Blood-Urine 50 /ul (Negative); Protein-Dipstick 30 mg/dl (Negative); Specific Gravity, Urine 1.015 (1.002-1.030); Urine Bilirubin Dipstick Negative (Negative)
[2024-08-15 11:24] LABS: Red Blood Cells-Urine 5-10 SEEN /hpf (0-5); Squamous Epithelial Cells - UA 5-10 SEEN /hpf (5-10)
== END ==
PROVIDERS: Visit Provider Family Medicine
DX: R41.0 Disorientation, unspecified (principal)
CPT/HCPCS: 81001; 87077; 87086; 87088

== ENCOUNTER → 2024-09-13 | Outpatient (CLI) | payer MEDICARE, OTHER, SELFPAY | END | disposition home or self-care (01) | PROVIDERS: Referring Provider Nurse Practitioner Gerontology; Visit Provider Nurse Practitioner Gerontology | DX: R03.0 Elevated blood-pressure reading, without diagnosis of hypertension (principal); G20.A1 Parkinson's disease without dyskinesia, without mention of fluctuations | CPT/HCPCS: 93788 ==

== ENCOUNTER 2024-09-23 08:07 | Emergency (ER) | payer MEDICARE, OTHER, SELFPAY ==
[2024-09-23] VITALS (9 sets, daily range): BP systolic 104–172; BP diastolic 74–88; PULSE 71–79; RESP 13–20; TEMP 36.9; O2SAT 95–98; BMI 23.6
--- NOTE | 2024-09-23 08:13 | EDS_ITS ---
HPI History of Present Illness Chief Complaint: Stroke Alert Narrative Narrative: Patient is a 78-year-old female presenting to the emergency department for a stroke alert that was called by EMS. Last known well 7:20 AM this morning. Patient is on no oral anticoagulation. EMS states that the patient was eating breakfast this morning and developed sudden onset aphasia. On arrival here patient has no complaints. She is soft-spoken. Has no aphasia or dysarthria. Has no focal weakness or numbness. No pain. No chest pain, shortness of breath, abdominal pain, nausea or vomiting. Stroke alert canceled on my evaluation. [facility] Medical History Blindness left eye category 5, normal vision right eye Unsteadiness on feet Difficulty in walking Anemia Lung nodule Depression Wrist fracture, right Orthostatic hypotension Essential hypertension Subarachnoid hemorrhage following injury Hyperlipidemia Parkinson's disease Home Medications ?Medication ?Instructions ?Recorded ?Last Taken ?Type atorvastatin 10 mg tablet 10 mg PO QHS HYPERLIPIDEMIA 03/28/23 Unknown History carbidopa 25 mg-levodopa 100 mg 1 tab PO 4XD NEUROCOGN ITIVE 03/28/23 Unknown History tablet DISORDER escitalopram oxalate 10 mg tablet 10 mg PO DAILY MAJOR DEPRESSIVE 03/28/23 Unknown History DISORD ferrous sulfate 325 mg (65 mg 325 mg PO DAILY ANEMIA 0 03/28/23 Unknown History iron) tablet artifi.tears(hypromellose)(PF) 1.7 1 drp ophthalmic (e ye) TID DRYNESS 07/03/24 Unknown History % eye drops with applicator midodrine 5 mg tablet 7.5 mg PO TID HTN 09/03/24 U nknown History acetaminophen 325 mg capsule 650 mg PO Q6H PRN fever o r pain 09/23/24 Unknown History bisacodyl 10 mg rectal suppository 10 mg TX Q12H PRN c onstipation 09/23/24 Unknown History docusate sodium 100 mg capsule 100 mg PO Q12H PRN cons tipation 09/23/24 Unknown History (Col-Rite) lorazepam 0.5 mg tablet 0.5 mg PO .COMPLEX ANXIETY 0 09/23/24 Unknown History magnesium hydroxide 400 mg/5 mL 30 ml PO Q12H PRN cons tipation 09/23/24 Unknown History oral suspension (Dulcolax (magnesium hydroxide)) ondansetron 4 mg disintegrating 4 mg PO Q6H PRN nausea and vomiting 09/23/24 Unknown History tablet polyethylene glycol 3350 17 17 g PO DAILY PRN constipa tion 09/23/24 Unknown History gram/dose oral powder (Miralax) Allergy/AdvReac Type Severity Reaction Status Date / Time amoxicillin (From Trimox) Allergy Hives Verified 09/03/24 15:44 Family History Mother Hypertension Heart disease Diabetes Father Hypertension Emphysema lung Surgical History Hx laparoscopic cholecystectomy History of hysterectomy
--- NOTE | 2024-09-23 08:13 | ED.VIS.STROK ---
HPI History of Present Illness Chief Complaint: Stroke Alert Narrative Narrative: Patient is a 78-year-old female presenting to the emergency department for a stroke alert that was called by EMS. Last known well 7:20 AM this morning. Patient is on no oral anticoagulation. EMS states that the patient was eating breakfast this morning and developed sudden onset aphasia. On arrival here patient has no complaints. She is soft-spoken. Has no aphasia or dysarthria. Has no focal weakness or numbness. No pain. No chest pain, shortness of breath, abdominal pain, nausea or vomiting. Stroke alert canceled on my evaluation. [facility] Medical History Blindness left eye category 5, normal vision right eye Unsteadiness on feet Difficulty in walking Anemia Lung nodule Depression Wrist fracture, right Orthostatic hypotension Essential hypertension Subarachnoid hemorrhage following injury Hyperlipidemia Parkinson's disease Home Medications ?Medication ?Instructions ?Recorded ?Last Taken ?Type atorvastatin 10 mg tablet 10 mg PO QHS HYPERLIPIDEMIA 03/28/23 Unknown History carbidopa 25 mg-levodopa 100 mg 1 tab PO 4XD NEUROCOGNITIVE 03/28/23 Unknown History tablet DISORDER escitalopram oxalate 10 mg tablet 10 mg PO DAILY MAJOR DEPRESSIVE 03/28/23 Unknown History DISORD ferrous sulfate 325 mg (65 mg 325 mg PO DAILY ANEMIA 03/28/23 Unknown History iron) tablet artifi.tears(hypromellose)(PF) 1.7 1 drp ophthalmic (eye) TID DRYNESS 07/03/24 Unknown History % eye drops with applicator midodrine 5 mg tablet 7.5 mg PO TID HTN 09/03/24 Unknown History acetaminophen 325 mg capsule 650 mg PO Q6H PRN fever or pain 09/23/24 Unknown History bisacodyl 10 mg rectal suppository 10 mg MS Q12H PRN constipation 09/23/24 Unknown History docusate sodium 100 mg capsule 100 mg PO Q12H PRN constipation 09/23/24 Unknown History (Col-Rite) lorazepam 0.5 mg tablet 0.5 mg PO .COMPLEX ANXIETY 09/23/24 Unknown History magnesium hydroxide 400 mg/5 mL 30 ml PO Q12H PRN constipation 09/23/24 Unknown History oral suspension (Dulcolax (magnesium hydroxide)) ondansetron 4 mg disintegrating 4 mg PO Q6H PRN nausea and vomiting 09/23/24 Unknown History tablet polyethylene glycol 3350 17 17 g PO DAILY PRN constipation 09/23/24 Unknown History gram/dose oral powder (Miralax) Allergy/AdvReac Type Severity Reaction Status Date / Time amoxicillin (From Trimox) Allergy Hives Verified 09/03/24 15:44 Family History Mother Hypertension Heart disease Diabetes Father Hypertension Emphysema lung Surgical History Hx laparoscopic cholecystectomy History of hysterectomy Social History Smoking Status: Never smoker alcohol intake: never substance use type: does not use caffeine: Yes Type: coffee Number of servings: 2 additional social history: pt denies vaping, denies edibles, denies marijuana use, denies aspirin and denies ibuprofen use, pt denies family history of blood clots/blood disorders. ROS ROS ED Constitutional Constitutional ED: Denies chills or fever(s) Eyes Eyes: Denies change in vision or diplopia ENT ENT ED: Denies sore throat Cardiovascular Cardiovascular: Denies chest pain, palpitations or racing heartbeat Respiratory/Chest Respiratory/Chest: Denies cough, dyspnea or dyspnea on exertion Gastrointestinal Gastrointestinal: Denies abdominal pain, diarrhea, nausea or vomiting Genitourinary Genitourinary ED: Denies dysuria or hematuria Musculoskeletal Musculoskeletal: Denies back pain or neck pain Neurologic Neurologic: Denies headache(s), paresthesias or weakness EXAM Physical Exam Narrative Exam Narrative: Vital signs: Reviewed General: Alert and oriented x3. No acute distress. Chronically ill appearing. HEENT: Head is normocephalic and atraumatic, sinuses nontender, pupils equal round and reactive. Nares are patent. Oropharynx and throat exams normal. Neck: Supple without lymphadenopathy nontender Cardiovascular: Regular rate and rhythm, no murmurs. No rubs or gallops. Normal S1 and S2 Respiratory: Clear to auscultation bilaterally. No wheezes, rales, rhonchi Abdominal: Soft and nontender. Normal bowel sounds. No guarding or rebound. Nonsurgical abdomen Extremities: No tenderness. No bruising. Normal range of motion. Normal sensation. Skin: No rash or redness. Neurological: Cranial nerves II through XII are grossly intact. Normal strength and sensation. Normal cerebellar function The rest of the physical exam is unremarkable Const Vital Signs: 09/23/24 08:13 Temperature 98.5 F Temperature Source Oral Pulse Rate 79 Respiratory Rate 18 Blood Pressure 163/88 H Blood Pressure Mean 113 Pulse Ox 96 Oxygen Delivery Method Room Air MDM MDM MDM Narrative Medical decision making narrative: Patient is a 78-year-old female presenting to the emergency department for stroke alert called by EMS. LKW [id number], reported aphasia. Patient was seen on arrival in triage bay. NIH of 0. Clear speech with no slurring. Stroke alert canceled. [id number] glucose 111. Nursing staff did contact the nursing facility for DNR paperwork given EMS reported that she was DNR comfort care. DNR paperwork was faxed over and it is confirmed that she is DNR comfort care. I did speak to the patients melvina Bailey. I updated her on why her mother was sent here this morning. I informed her that she had no neurologic deficits on exam here. I explained that given she is DNR comfort care I do not think it is necessary to obtain any additional labs or imaging given the patient has no neurologic findings here and has no complaints. Daughter states that she does have a history of Parkinson's and sometimes can have difficulty getting her words out and maybe this is what the nursing facility was seeing. She agrees with EKG and glucose testing and states she feels comfortable with no additional testing here. She feels comfortable with the patient going back to her nursing facility without further imaging or admission given her code status and goals of care discussion. I updated the patient on my discussion with her daughter. Patient is agreeable as well. Patient still has no complaints here. NIH still of 0. There is no indication for CT brain imaging at this time. The event could have been parkinsons related vs TIA. EKG shows NSR with no ischemic changes. No dysrhythmia. Patient appropriate for discharge back to her facility. Patient discharged from the Emergency Department. I do not feel that the patient's evaluation reveals any acute reason for admission at this time. I instructed them to either follow-up with their primary care physician or promptly return to the Emergency Department for reevaluation should symptoms worsen or new symptoms develop. I explained what symptoms would indicate the need to return to the emergency department. Shared decision making was used. The patient voiced understanding of the treatment plan and is agreeable with it. Clinical impression Reported expressive aphasia History & Record Review Discussion w/independent historian: EMS personnel, Patient and Family Rhythm Strip Rhythm Strip: Sinus Rhythm Rate: 72 Ectopy: None Discharge Plan Triage Chief Complaint: Stroke Alert ED Provider: Isis Mae Dx/Rx/DC Orders Prescriptions: No Action atorvastatin 10 mg tablet 10 mg PO QHS carbidopa-levodopa 25-100 mg tablet 1 tab PO 4XD escitalopram oxalate 10 mg tablet 10 mg PO DAILY ferrous sulfate 325 mg (65 mg iron) tablet 325 mg PO DAILY midodrine 5 mg tablet 7.5 mg PO TID Rx Instructions: do not give last dose of day after 6PM or within 4 hrs of bedtime artifi.tears(hypromellose)(PF) 1.7 % drops with applicator 1 drp ophthalmic (eye) TID acetaminophen 325 mg capsule 650 mg PO Q6H PRN (Reason: fever or pain) bisacodyl 10 mg suppository 10 mg MS Q12H PRN (Reason: constipation) docusate sodium [Col-Rite] 100 mg capsule 100 mg PO Q12H PRN (Reason: constipation) lorazepam 0.5 mg tablet 0.5 mg PO .COMPLEX Rx Instructions: 0.5 mg orally 30 MIN PRIOR TO TRIGGERING EVENT, MAY TAKE 2ND DOSE 30 MIN AFTER IF NEEDED; magnesium hydroxide [Dulcolax (magnesium hydroxide)] 400 mg/5 mL suspension 30 ml PO Q12H PRN (Reason: constipation) Rx Instructions: IF NO BM IN 3 CONSECUTIVE DAYS ondansetron 4 mg tablet,disintegrating 4 mg PO Q6H PRN (Reason: nausea and vomiting) polyethylene glycol 3350 [Miralax] 17 gram/dose powder 17 g PO DAILY PRN (Reason: constipation) Primary Care Provider: Rahul Shetty Referrals: Rahul Shetty DO [Primary Care Provider] - Print Language: Azeri NIHSS NIHSS 1a. Level of Consciousness: 0 - Alert; keenly responsive 1b. LOC Questions: 0 - Answers BOTH questions correctly 1c. LOC Commands: 0 - Performs BOTH tasks correctly 2. Best Gaze: 0 - Normal 3. Visual: 0 - No visual loss 4. Facial Palsy: 0 - Normal symmetrical movements 5a. Left Arm: 0 - No drift; arm holds 90 (or 45) degrees for full 10 seconds 5b. Right Arm: 0 - No drift; arm holds 90 (or 45) degrees for full 10 seconds 6a. Left Le - No drift; leg holds 30-degree position for full 5 seconds 6b. Right Le - No drift; leg holds 30-degree position for full 5 seconds 7. Limb Ataxia: 0 - Absent 8. Sensory: 0 - Normal; no sensory loss 9. Best Language: 0 - No aphasia; normal 10. Dysarthria: 0 - Normal Total: 0
--- OUTSIDE RECORDS SUMMARY | 2024-09-23 08:15 | XMS RPT_ITS | CCD ---
Author Organization [facility] Care Team Providers Care Paper Coater Name Role Phone Chico Collier MD Unavailable Chico Collier MD Unavailable [facility] Unavailable Phan SALAZAR, Dr. Alberts ([place] [facility]) A Unavail able [facility] Unavailable Physical Therapy, David Bennett Unavailable [facility], . [facility] office Unavailable ([place]), [facility] Unavailable [facility] Unavailable Kyler HUYNH, Janeth Unavailable Unavailable Zack SOTON, Serena Unavailable Pratik TAVAREZ, Luxavi Vazquez Unavailable [phone] Malinda Christie Unavailable Unavailable Pratik HUYNH, Ana Cristina L Unavailable Unavail able Tree SOTON, Tavia Unavailable Unavailable Sherman HUYNH, Frida Hope Unavailable Unavaila grecia Meier [employer], Obi Unavailable Unavailable Phan HUYNH, Funmi Unavailable Mutersbababar [employer], Sarah K Unavailable Unaronaldoi Tonie Ramirez Unavailable Unavailable Janeth Florez Unavailable Luis SOTON, Alea Peres Unavailable Unavailab le Vess [employer], Kevin L Unavailable Unavailable Wengerbrandi [employer], Barbara Unavailable Unavailabl e Unavailable Unavailable EKATERINA SALAZAR, DR CHICO Hope Primary Care Physician Kenney, Janelle S Unavailable Unavailable VACCARIELLO, CHICO Referring Unavailable VACCARIELLO, CHICO Consulting Unavailable ANA M BLACKBURN DO Admitting Unavailable ANA M BLACKBURN DO Attending Unavailable ANA M BLACKBURN DO [...] CHICO Referring Unavailable VACCARIELLO, CHICO Consulting Unavailable CONNORGREY Tyson Attending Unavailable GREY CONNOR Primary Care Unavailable [...] Care IVAN Pimentel DO Consulting Unavailable ASHLEY AOC DIRECTOR COMBAT OPERATIONS OFFICER-TIPPLE GREASER, HEENA Navarrete Consulting Unavaila ble EKATERINA SALAZAR, DR CHICO Hope Primary Care STAN Raymond DO Admitting Unavailable STAN GARCIA DO Attending Unavailable EKATERINA SALAZAR, DR CHICO Hope Primary Care Troy VALDIVIA MD, DR AMBRIZ Admitting Unavailable JACKELYN SALAZAR, KAYLI Consulting Unavailable ART SALAZAR FACP, ADELITA Trujillo Attending Unavail able Jesus Manuel YANCEY, Stefanie Unavailable Unavailable Dr. Joel Muniz MD Emergency Provider Dr. Yahaira Winn MD Primary Care Provider Dr. Joel Muniz MD Attending Provider Diogenes SALAZAR, Dr. Kay Attending Provider Unavail able Dr. Yahaira Winn MD Referring Provider [phone] [address]. Jose Matthews MD Attending Provider Dr. Rahul Shetty MD Referring Provider Unavail able James SLATE MIXER-C, Barbara Attending Provider RAHUL SHETTY DO Attending Unavailable DR CHICO COLLIER MD Primary Care [facility] Attending Provider Unavailable Dr. Rahul Shetty DO Primary Care Provider Dr. Rahul Shetty DO Attending Provider Dr. Rahul Shetty DO Referring Provider Jennifer Roman Attending Provider [phone] Kendall SLATE MIXER-CJennifer Referring Provider [phone] Jolliff, Yahaira S Primary Care Unavailable ShettyRahul Deshpande Attending Unavailable Shetty Rahul SAAVEDRA Attending Unavailable Jolliff, Yahaira S Primary Care Unavailable [facility] Attending Unavailable Jolliff, Yahaira S Primary Care Unavailable ShettyRahul Deshpande Attending Unavailable Jolliff, Yahaira S Primary Care Unavailable Jolliff, Yahaira S Primary Care Unavailable ShettyRahul Deshpande Attending Unavailable Stan Green Primary Care Unavailable Vaccariello, Chico Referring Unavailable Vaccariello, Chico Attending Unavailable Stan Green Primary Care Unavailable Vaccariello, Chico Referring Unavailable Vaccariello, Chico Attending Unavailable Shetty, Rahul Referring Unavailable ShettyRahul Attending Unavailable Shetty, Rahul Primary Care Unavailable Shetty Rahul SAAVEDRA Attending Unavailable Jolliff, Yahaira S Primary Care Unavailable ShettyRahul Deshpande Attending Unavailable Shetty QUENTIN Rahul Referring Unavailable Jolliff, Yahaira S Primary Care Unavailable Jose Matthews Attending Unavailable Jolliff, Yahaira S Primary Care Unavailable Jolliff, Yahaira S Referring Unavailable Shetty OLS, Rahul Attending Unavailable Shetty QUENTIN, Rahul Referring Unavailable Jolliff, Yahaira S Primary Care Unavailable Shetty, Rahul Primary Care Unavailable ShettyRahul Deshpande Attending Unavailable Jennifer Argueta Referring Unavailable Jennifer Argueta Attending Unavailable Shetty, Rahul Primary Care Unavailable Joel Muniz Attending Unavailable Jolliff, Yahaira S Primary Care Unavailable Jennifer Argueta Attending Unavailable Shetty, Rahul Referring Unavailable Shetty, Rahul Primary Care Unavailable Jose Matthews Attending Unavailable Jolliff, Yahaira S Referring Unavailable Jolliff, Yahaira S Primary Care Unavailable Barbara Ramirez Attending Unavailable Jolliff, Yahaira S Referring Unavailable Jolliff, Yahaira S Primary Care Unavailable Siska, Jose Attending Unavailable Yahaira Winn Primary Care Unavailable Yahaira Winn Referring Unavailable Checo Reid Attending Unavailable Rahul Shetty Referring Unavailable Jose Matthews Attending Unavailable Yahaira Winn Primary Care Unavailable Yahaira Winn Referring Unavailable Allergies Allergy Classification Reported Allergen(s) Allergy Type Date of Onset Reaction(s) Facility (20 sources) Pen[facility] ([facility] sources) predniSONE Drug Allergy [facility]; [facility] (14 sources) Amoxicillin; Translations: [amoxicillin] Drug Allergy 4 [facility] ([facility] (1 source) Amoxicillin Drug Allergy [facility] (1 source) predniSONE Drug Allergy [facility] (1 source) Amoxicillin Drug Allergy 5 [facility] Repository Medications Current Medications Medication Drug Class(es) Dates Sig (Normalized) Sig (Original) 8 hr acetaminophen 650 mg extended release oral tablet (15 sources) Start: 03-28-2023 End: 09-03-2024 take 1 tablet by mouth every eight hours as needed Acetaminophen 650 mg tablet extended release Active 650 mg PO Q8H as needed September 03, 2024 3:35pm Start: 03-02-2023 take 1 capsule by mo [facility] every four hours as needed for pain Tylenol 325 mg oral capsule Dose : 650 mg =, Oral, q4h, PRN Muscle pain, 0 Refill(s) Start Date: 03/02/23 Status: Ordered Repeat number: 1 amLODIPine 5 mg oral tablet (10 sources) Dihydropyridine Calcium Channel [place] Start: 07-03-2024 [...] tablet (20 sources) HMG-CoA Reductase Inhibitor Start: 03-02-2023 take 1 tablet by mouth at bedtime Atorvastatin 10 mg tablet Active 10 mg PO AT BEDTIME March 28, 2023 1:00am Start: 02-09-2023 atorvastatin 1 0 mg oral tablet Dose : 10 mg = 1 tab(s), Oral, qDay, # 30 tab(s), 0 Refill(s) Start Date: 02/09/23 Status: Ordered Start: 12-27-2022 carbidopa 25 mg / levodopa 100 mg oral tablet (20 sources) Aromatic Amino Acid Decarboxylation Inhibitor, Aromatic Amino Acid Start: 03-28-2023 take 1 tablet by mouth four times daily Carbidopa-Levodopa Active 1 TABLET PO .QID March 28, 2023 12:00am Start: 03-02-2023 Carbidopa-Levo dopa 25-100 mg tablet Active 1 {tbl} PO .QID March 28, 2023 1:00am Start: 02-15-2023 take 1 tablet by doris [...] 0 Refill(s) Start Date: 02/09/23 Status: Ordered escitalopram 10 mg oral tablet (20 sources) Serotonin Reuptake Inhibitor Start: 01-14-2023 take 1 tablet by mouth once daily Escitalopram Oxalate 10 mg tablet Active 10 mg PO DAILY March 28, 2023 1:00am ferrous sulfate 325 mg oral tablet (14 sources) Start: 03-02-2023 take 1 tablet by mouth once daily Ferrous Sulfate 325 mg (65 mg iron) tablet Active 325 mg PO DAILY March 28, 2023 1:00am Start: 02-09-2023 take 65 mg by mouth once daily ferrous sulfate Oral, qDay, takes 65 mg, 0 Refill(s) Start Date: 02/09/23 Status: Ordered hypromellose 17 mg/ml ophthalmic solution (9 sources) Start: 07-03-2024 Artifi.Tears(Hypromellose)(P f) 1.7 % drops with applicator Active 1 NMA OPHTHALMIC THREE TIMES A DAY July 03, 2024 12:00am LORazepam 0.5 mg oral tablet (1 source) Benzodiazepine Start: 08-17-2024 End: 08-31-2024 Ativan 0.5 mg oral tablet Do se : 0.5 mg = 1 tab(s), Oral, q8h, 1 tablet orally 30 min prior to triggering event. May take 2nd dose after 30 min if needed. MUST HAVE RIDE HOME, X 14 day(s), # 4 tab(s), 0 Refill(s), 08/31/24 1:04:00 PM EDT, Pharmacy: [facility], Claustrophobia, 160, cm, 02/15/23 17:41:00 EST, Height, 58.6, kg, 02/28/23 5:44:00 EST, Dosing Weight Start Date: 08/17/24 Stop Date: 08/31/24 Status: Ordered Quantity: 4.0 Unit: tab(s) Repeat number: 1 Indications: Claustrophobia; Milk of Magnesia (2 sources) Start: 03-02-2023 take 1 dose by mouth once daily as needed for constipation Milk of Magnesia Dose = 30 mL, Oral, Daily, PRN Constipation, 0 Refill(s) Start Date: 03/02/23 Status: Ordered Repeat number: 1 Start: 03-02-2023 take 1 dose by mouth once daily as needed for constipation Milk of Magnesia Dose = 30 mL, Oral, Daily, PRN Constipation, 0 Refill(s) Start Date: 03/02/23 Status: Ordered Completed/Discontinued Medications Medication Drug Class(es) Dates Sig (Normalized) Sig (Original) aluminum hydroxide 200 mg / magnesium hydroxide 200 mg / simethicone 25 mg chewable tablet (20 sources) Start: 07-03-2024 End: 09-03-2024 Alum-Mag Hydroxide-Simeth (Gelusil Antacid And Anti-Gas) 200-200-25 mg tablet,chewable Discontinued 1 {tbl} PO EVERY 6 HOURS as needed July 03, 2024 12:00am September 03, 2024 3:35pm Start: 03-28-2023 End: 07-03-2024 Alum-Mag Hydroxide-Simeth 20 0-200-25 mg tablet,chewable Discontinued 1 {tbl} PO ONCE March 28, 2023 1:00am July 03, 2024 7:52am Start: 03-28-2023 take 1 tablet by mouth once Al um-Mag Hydroxide-Simeth Active 1 TABLET PO ONCE March 28, 2023 12:00am Start: 03-02-2023 Maalox Oral, q 6h, PRN Indigestion, 0 Refill(s) Start Date: 03/02/23 Status: Ordered Repeat number: 1 Start: 03-02-2023 Maalox Oral, q 6h, PRN Indigestion, 0 Refill(s) Start Date: 03/02/23 Status: Ordered bisacodyl 10 mg rectal suppository (11 sources) Stimulant Laxative Start: 03-28-2023 End: 09-03-2024 Bisacodyl (Dulcolax (Bisacodyl)) 10 mg suppository Discontinued 10 mg RC DAILY as needed March 28, 2023 1:00am September 03, 2024 3:37pm docusate sodium 100 mg oral capsule (13 sources) Start: 03-02-2023 End: 09-03-2024 take 1 capsule by mouth twice daily as needed Docusate Sodium 100 mg capsule Discontinued 100 mg PO TWICE A DAY as needed March 28, 2023 1:00am September 03, 2024 3:37pm Magnesium Hydroxide (11 sources) Start: 03-28-2023 End: 09-03-2024 take 1 mL by mouth twice daily as needed Magnesium Hydroxide (Milk Of Magnesia) 400 mg/5 mL suspension Discontinued 30 mL PO TWICE A DAY as needed March 28, 2023 1:00am September 03, 2024 3:37pm Start: 03-28-2023 take 1 mL by mouth t wice daily as needed Magnesium Hydroxide (Milk Of Magnesia) 400 mg/5 mL suspension Active 30 mL PO TWICE A DAY as needed March 28, 2023 1:00am Start: 03-28-2023 take 1 mL by mouth twice daily Magnesium Hydroxide (Milk Of Magnesia) 400 mg/5 mL suspension Active 30 ML PO TWICE A DAY March 28, 2023 12:00am meloxicam 7.5 mg oral tablet (20 sources) Nonsteroidal Anti-inflammatory Drug Start: 06-06-2015 End: 12-22-2015 midodrine hydrochloride 5 mg oral tablet (16 sources) alpha-Adrenergic Agonist Start: 03-02-2023 End: 09-03-2024 take 1 tablet by mouth once daily at bedtime Midodrine 5 mg tablet Discontinued 5 mg PO THREE TIMES A DAY March 28, 2023 1:00am September 03, 2024 3:38pm do not give last dose of day after 6PM or within 4 hrs of bedtime Start: 02-15-2023 midodrine 5 mg oral tablet Dose : 5 mg = 1 tab(s), Oral, TID, 0 Refill(s) Start Date: 02/15/23 Status: Ordered mineral oil 1000 mg/ml enema (11 sources) Start: 03-28-2023 End: 07-03-2024 Mineral Oil enema Discontinu ed 118 mL RC DAILY as needed March 28, 2023 1:00am July 03, 2024 7:52am discard any unused portion Start: 03-28-2023 Mineral Oil Ac tive 118 ML RC DAILY March 28, 2023 12:00am discard any unused portion ondansetron 4 mg oral tablet (9 sources) Serotonin-3 Receptor Antagonist Start: 07-03-2024 End: 09-03-2024 take 1 tablet by mouth every six hours as needed Ondansetron Hcl 4 mg tablet Discontinued 4 mg PO EVERY 6 HOURS as needed July 03, 2024 12:00am September 03, 2024 3:37pm polyethylene glycol 3350 13230 mg powder for oral solution (13 sources) Osmotic Laxative Start: 03-02-2023 End: 09-03-2024 Polyethylene Glycol 3350 (Miralax) 17 gram/dose powder Discontinued 17 g PO DAILY March 28, 2023 1:00am September 03, 2024 3:37pm Problems Active Problems Problem Classification Problem Date [...] penicillin] 01-14-2023 Episodic Blindness and vision defects (11 sources) Blind left eye, normal vision right eye; Translations: [Blindness left eye category 5, normal vision right eye] 03-28-2023 Chronic Cataract (20 sources) Cataract of left eye; Translations: [Unspecified cataract] 01-26-2023 Chronic Conditions associated with dizziness or vertigo (20 sources) Dizzy spells; Translations: [Dizziness and giddiness] Onset: 05-19-2022 05-06-2022 Episodic Deficiency and other anemia (20 sources) Anemia; Translations: [Anemia, unspecified] Episodic Deficiency and other anemia (2 sources) Anemia, unspecified; Translations: [Anemia, unspecified] Onset: 08-27-2024 Episodic Delirium, dementia, and amnestic and other cognitive disorders (20 sources) 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; Translations: [Dementia with Lewy bodies] 01-26-2023 Chronic Diabetes mellitus without complication (1 source) Acetonuria; Translations: [Acetonuria] Onset: 08-23-2024 Episodic Disorders of lipid metabolism (20 sources) Hyperlipidemia; [...] body of left forearm, initial encounter] Onset: 09-03-2024 06-26-2024 Episodic Open wounds of head; neck; [...] High risk drug monitoring status; Translations: [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 The patient is a dif ficult situation and that she has orthostatic hypotension in the face of profound systolic hypertension at rest. It appears this is primarily thought to be related to her neurologic condition with her parkinsonism is creating the orthostatic hypotension. Other circulatory disease (1 source) Elevated blood-pressure reading, without diagnosis of hypertension; Translations: [Elevated blood-pressure reading, without diagnosis of hypertension] Onset: 09-20-2024 Episodic Other circulatory disease (1 source) Orthostatic hypotension; Translations: [Orthostatic hypotension] Onset: 08-27-2024 Episodic Other circulatory disease (1 source) Hypotension, unspecified; Translations: [Hypotension, unspecified] Onset: 08-27-2024 Episodic Other connective tissue disease (20 sources) Recurrent falls ; Translations: [Repeated falls] 01-26-2023 Episodic Other connective tissue disease (2 sources) Repeated falls; Translations: [Repeated falls] Onset: 05-19-2022 Episodic Other gastrointestinal disorders (18 sources) Occult blood in stools; Translations: [Other [...] Onset: 02-12-2023 Episodic Other lower respiratory disease (13 sources) Nodule of lung; Translations: [Solitary pulmonary nodule] 02-16-2023 Episodic Comment on above: 3mm right upper lobe Other nervous system disorders (11 sources) Difficulty walking; Translations: [Difficulty in walking, not elsewhere classified] 03-28-2023 Chronic Other nervous system disorders (1 source) Abnormal gait; Translations: [Unspecified abnormalities of gait and mobility] Episodic Other nervous system disorders (11 sources) Unsteady when standing; Translations: [Unsteadiness on feet] 03-28-2023 Episodic Other nervous system disorders (10 sources) H/O: brain disorder; Translations: [Personal history [...] source) Disorientation, unspecified; Translations: [Disorientation, unspecified] Onset: 08-27-2024 Episodic Sprains and strains (20 sources) Muscle strain; Translations: [Strain of unspecified muscle(s) and tendon(s) at lower leg level, right leg, initial encounter] 05-28-2015 Episodic Superficial injury; contusion (20 sources) Abrasion of left forearm; Translations: [Abrasion of left forearm, subsequent encounter] 01-06-2022 Episodic Unclassified (20 sources) Symptomatic parkinsonism; Translations: [Paralysis agitans] 01-26-2023 Chronic Unclassified (16 sources) Parkinson's disease; Translations: [Parkinson's disease without dyskinesia, without mention of fluctuations] Onset: 02-10-2023 Chronic Unclassified (20 sources) 01-12-2023 Unclassified (20 sources) 01-12-2023 Unclassified (20 sources) 01-12-2023 Unclassified (1 source) Traumatic subarachnoid hemorrhage with loss of consciousness status unknown, subsequent encounter; Translations: [Traumatic subarachnoid hemorrhage with loss of consciousness status unknown, subsequent encounter] Onset: 02-15-2023 Urinary tract infections (1 source) Urinary tract infection, site not specified; Translations: [Urinary tract infection, site not specified] Onset: 08-29-2024 Episodic Viral infection (20 sources) Mass of skin; Translations: [Viral wart, unspecified] 07-28-2020 Episodic Past or Other Problems Problem Classification Problem Date Documented Date Episodic/Chronic Other screening for suspected conditions (not mental [...] Test Name Value Interpretation Reference Range Facility Cardiology Visit Reporton Cardiology Visit Report [facility] [address] [place] [address] OFFICE VISIT Date of Service: 09/03/24 MR#: [id number] Acct: [id number] Name: ROSARIO MCNALLY Rep #: [id number] : 1945 Provider: RANDALL Pierre rts Age/Sex: 78/F Location: [facility] Status: Signed HPI HPI History of Present Illness Details: This is a 78-year-old female who presents to the office today for cardiovascular follow-up visit. She currently resides in a retirement, and has a history of hypertension some dizzy spells and Parkinson's. She had a hospitalization at [facility] back in February 2019 for which she had a brain bleed. As best I can tell from the family this is apparently from fall. She apparently was wandering around the house around 07 February and fell down several steps. This resulted in a subarachnoid bleed. This is described as a subarachnoid hemorrhage since that time the patient has been unsteady on her feet and has not been very active. She left the hospital she was discharged on a combination of amlodipine and midodrine. Since that time her midodrine had been dropped to once a day and amlodipine was discontinued when they met with a neurologist neurologist increased the midodrine back to 3 times daily. The patient is now having blood pressures in the 170/90 range. Blood pressure in office today is 163/90. The patient is actually a little slow in mentation but is pleasant and answers questions. From a cardiac standpoint, the patient is doing well. She does use a walker to help with ambulation, and is accompanied by her daughter. She denies any palpitations, chest pain, pressure or heaviness. She denies SOB, Orthopnea, and PND. She does not have bleeding issues; no blood in urine, stool, or nosebleeds. She denies any decrease in energy level, myalgias, or claudication. She does not have edema, or sudden weight gain. She does acknowledge lightheadedness with standing. She denies dizziness, syncopal or near syncopal episodes, and headaches. Intake Vital Signs 07/06/24 14:31 09/03/24 15:33 Height 5 ft 3 in 5 ft 3 in Weight: 129 lb BMI 22.8 BP 169/91 H Blood Pressure Location Lt brachial Position Sitting Respiration 18 Pulse 71 Pulse Source Monitor Pulse Oximetry (%) 95 Oxygen Delivery Method room air Intake Visit Reasons: 1 Y FU 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: No Accompanied by: Daughter Is patient in pain?: No Allergies amoxicillin (From Trimox) Allergy (Verified 09/03/24 15:44) Hives Medications ???Medication ???Instructions ???Recorded ???Confirmed ???Type atorvastatin 10 mg tablet 10 mg PO QHS 03/28/23 09/03/24 His tory carbidopa 25 mg-levodopa 100 mg 1 tab PO .QID 03/28/23 09/03/24 Hi story tablet escitalopram oxalate 10 mg tablet 10 mg PO DAILY 03/28/23 09/03/24 History ferrous sulfate 325 mg (65 mg 325 mg PO DAILY 03/28/23 09/03/24 History iron) tablet amlodipine 5 mg tablet 5 mg PO QDAY 07/03/24 09/03/24 His tory artifi.tears(hyprom ellose)(PF) 1.7 1 drp ophthalmic (eye) TID 07/0309/03/24 History % eye drops with applicator acetaminophen 650 mg 650 mg PO Q8H PRN 09/03/24 5 History tablet,extended release midodrine 5 mg tablet 7.5 mg PO TID 09/03/24 09/03/24 Hi story Have you fallen in the past year?: [...] denies family history of blood clots/blood disorders. ROS Const Const: Negative for fatigue, weakness, fever(s), headache(s), chills, frequent falls, weight gain or weight loss Eyes Eyes: Negative for blind spots, loss of peripheral vision, transient loss of vision, blurry vision, change in vision, double vision, floaters or tunnel vision ENT ENT: Negative for headache(s), dizziness, Nosebleed/epistaxis , balance problems or neck pain Cardio Chest Pain: No Pal (more content not included)... Normal [facility] MRI BRAIN W/O CONTRASTon MRI BRAIN W/O CONTRAST ORIGINAL EXAMINATION: MRI OF THE BRAIN WITHOUT CONTRAST 08/17/2024 11:07 pm TECHNIQUE: Multiplanar multisequence MRI of the brain was performed without the administration of intravenous contrast. COMPARISON: None. HISTORY: ORDERING SYSTEM PROVIDED HISTORY: Reason for Exam: falls, acute vision loss episodes, confusion episodes. Rule out stroke or other. FINDINGS: INTRACRANIAL STRUCTURES/VENTRICL ES: No focus of restricted diffusion. There is trace hemosiderin deposition within the sulcus of the posterior right occipital lobe. No evidence of adjacent infarct. The ventricles and sulci are enlarged. No mass, acute hemorrhage or extra-axial fluid collection. No posterior fossa lesion. ORBITS: Previous left lens replacement. SINUSES: The visualized paranasal sinuses and mastoid air cells demonstrate no acute abnormality. BONES/SOFT TISSUES: The bone marrow signal intensity appears normal. The soft tissues demonstrate no acute abnormality. IMPRESSION: There is evidence of remote hemorrhage in the posterior right occipital lobe sulcus. No definite acute hemorrhage or acute infarct. Moderate atrophy. Interpreted by: Alee Mott Preliminary Report By: Alee Mott Electronically signed By Alee Mott Dictated Date: 08/20/2024 5:22:06 AM Prelim Date: 08/20/2024 5:25:13 AM Sign Date: 08/20/2024 5:25:13 AM Ordering Provider: RAHUL SHETTY [facility] MAIN Bilirubin Test strip Ql (U)O rdered By: Rahul Shetty on 08-15-2024 Bilirubin Ql (U) Negative Negative [facility] Hyaline casts LM.LPF (Urine sed) [#/Area]Ordered By: Rahul Shetty on 08-15-2024 Hyaline casts (Urine sed) [#/Area] 5 /[LPF] 0-5 [facility] Ketones Test strip Ql (U)Ord ered By: Rahul Shetty on 08-15-2024 Ketones Ql (U) 5 mg/dl High Negative [facility] Microscopic analysis of urin e for red blood cells (RBC)Ordered By: Rahul Shetty on 08-15-2024 Microscopic analysis of urine for red blood cells (RBC) 5-10 SEEN /hpf 0-5 [facility] Mucus LM Ql (Urine sed)Order ed By: Rahul Shetty on 08-15-2024 Mucus Ql (Urine sed) 0 SEEN /hpf [facility] Nitrite Test strip Ql (U)Ord ered By: Rahul Shetty on 08-15-2024 Nitrite Ql (U) Negative Negative [facility] Protein Test strip Ql (U)Ord ered By: Rahul Shetty on 08-15-2024 Protein Ql (U) 30 mg/dl High Negative [facility] Squamous epithelial cells de tection in urine sediment by light microscopyOrdered By: Rahul Shetty on 08-15-2024 Epithelial cells.squamous LM Ql (Urine sed) 5-10 SEEN /hpf 5-10 [facility] Urine clarityOrdered By: Lucien Shetty on 08-15-2024 Clarity (U) Sl. Cloudy Clear [facility] Urine color determinationOrd ered By: Rahul Shetty on 08-15-2024 Color (U) Yellow Yellow [facility] Urine cultureOrdered By: Lucien Shetty on 08-15-2024 Bacteria identified Cx Nom (U) Corynebacterium minutissimum Abnormal [facility] Urine glucose detectionOrder ed By: Rahul Shetty on 08-15-2024 Glucose Ql (U) Normal mg/dl Normal [facility] Urine leukocyte esterase det ection by dipstickOrdered By: Rahul Shetty on 08-15-2024 Leukocyte esterase Test strip Ql (U) Negative Negative [facility] Urine pHOrdered By: Rahul jackson on 08-15-2024 pH (U) 7.0 [pH] 5.0 - 8.0 [facility] Urine sediment bacteria coun t by microscopy (number/high power field)Ordered By: Rahul Shetty on 08-15-2024 Bacteria LM.HPF (Urine sed) [#/Area] 1 /[HPF] None Seen [facility] Urine specific gravity measu rementOrdered By: Rahul Shetty on 08-15-2024 Specific gravity (U) [Rel density] 1.015 1.002-1.030 [facility] Urine urobilinogen measureme ntOrdered By: Rahul Shetty on 08-15-2024 Urobilinogen Ql (U) Normal mg/dl Normal [facility] White blood cell countOrdere d By: Rahul Shetty on 08-15-2024 White blood cell count 0-5 SEEN /hpf 0-5 [facility] Absolute lymphocyte countOrd ered By: Yutan Place on 08-02-2024 Lymphocytes Auto (Unsp spec) [#/Vol] 1.11 10*3/uL 0.83-4.51 [facility] Absolute neutrophil countOrd ered By: Yutan Place on 08-02-2024 Neutrophils (Bld) [#/Vol] 6.7 10*3/uL 2.0-7.7 [facility] Automated lymphocyte count a s percentage of total leukocytesOrdered By: Yutan Place on 08-02-2024 Lymphocytes/100 WBC Auto (Unsp spec) 12.6 % Low 19-41 [facility] Basophil percentageOrdered B y: Yutan Place on 08-02-2024 Basophils/100 WBC (Bld) 0.5 % 0-1 [facility] Eosinophil percentageOrdered By: Yutan Place on 08-02-2024 Eosinophils/100 WBC (Bld) 1.9 % 0-5 [facility] Erythrocyte distribution wid th ratioOrdered By: Yutan Place on 08-02-2024 Erythrocyte distribution width (RBC) [Ratio] 13.0 % 11.6-14.6 [facility] Erythrocyte distribution wid th standard deviationOrdered By: Yutan Place on 08-02-2024 Erythrocyte distribution width (RBC) [Ratio] 43.0 fl 35.1-43.9 [facility] Hematocrit Auto (Bld) [Volum e fraction]Ordered By: [facility] on 08-02-2024 Hematocrit (Bld) [Volume fraction] 31.0 % Low 37-47 [facility] Hemoglobin measurementOrdere d By: Yutan Place on 08-02-2024 Hemoglobin (Bld) [Mass/Vol] 10.1 g/dL Low 12.0-15.0 [facility] Immature granulocytes/100 WB C Auto (Bld)Ordered By: Yutan Place on 08-02-2024 Immature granulocytes/100 WBC (Bld) 0.300 % 0.0-0.9 [facility] Comment on above: IG% - Immature Granu locytes (promyelocytes, myelocytes and metamyelocytes) > 1% indicates that a LEFT SHIFT is Present. MCV (mean corpuscular volume ) determinationOrdered By: Yutan Place on 08-02-2024 MCV (RBC) [Entitic vol] 90.9 fL 81-99 [facility] Mean corpuscular hemoglobin (MCH) determinationOrdered By: Yutan Place on 08-02-2024 MCH (RBC) [Entitic mass] 29.6 pg 27.0-32.0 [facility] Mean corpuscular hemoglobin concentration (MCHC) determinationOrdered By: Yutan Place on 08-02-2024 MCHC (RBC) [Mass/Vol] 32.6 g/dL 32-36 [facility] Mean platelet volume determi nationOrdered By: Yutan Place on 08-02-2024 Platelet mean volume (Bld) [Entitic vol] 10.3 fL 6.2-12.0 [facility] Monocyte percentageOrdered B y: [facility] on 08-02-2024 Monocytes/100 WBC (Bld) 8.2 % 0-10 [facility] Neutrophil percentageOrdered By: Yutan Place on 08-02-2024 Neutrophils/100 WBC (Bld) 76.5 % High 47-70 [facility] Nucleated red blood cell per centageOrdered By: Yutan Place on 08-02-2024 Nucleated RBC/100 WBC (Bld) [Ratio] 0 % 0-5 [facility] Platelet countOrdered By: [facility] on 08-02-2024 Platelets (Bld) [#/Vol] 303 10*3/uL 150-450 [facility] RBC Auto (Bld) [#/Vol]Ordere d By: Yutan Place on 08-02-2024 RBC (Bld) [#/Vol] 3.41 10*6/uL Low 4.2-5.4 [facility] White blood cell (WBC) count Ordered By: Kamran Ya on 08-02-2024 WBC (Bld) [#/Vol] 8.8 10*3/uL 4.4-11.0 [facility] Hemoglobin A1c percentageOrd ered By: Rahul Shetty on 07-31-2024 HbA1c (Bld) [Mass fraction] 5.2 % <5.7 [facility] Comment on above: Normal < 5.7 % Predi abetic 5.7 - 6.4 % Diabetic >or= 6.5 % Please note range changes. Bilirubin Test strip Ql (U)O rdered By: Rahlu Shetty on 07-30-2024 Bilirubin Ql (U) Negative Negative [facility] Ketones Test strip Ql (U)Ord ered By: Rahul Shetty on 07-30-2024 Ketones Ql (U) 5 mg/dl High Negative [facility] Microscopic analysis of urin e for red blood cells (RBC)Ordered By: Rahul Shetty on 07-30-2024 Microscopic analysis of urine for red blood cells (RBC) 0-5 SEEN /hpf 0-5 [facility] Mucus LM Ql (Urine sed)Order ed By: Rahul Shetty on 07-30-2024 Mucus Ql (Urine sed) 0 SEEN /hpf [facility] Nitrite Test strip Ql (U)Ord ered By: Rahul Shetty on 07-30-2024 Nitrite Ql (U) Negative Negative [facility] Protein Test strip Ql (U)Ord ered By: Rahul Shetty on 07-30-2024 Protein Ql (U) 30 mg/dl High Negative [facility] Squamous epithelial cells de tection in urine sediment by light microscopyOrdered By: Rahul Shetty on 07-30-2024 Epithelial cells.squamous LM Ql (Urine sed) 0-5 SEEN /hpf 5-10 [facility] Urine clarityOrdered By: Lucien Shetty on 07-30-2024 Clarity (U) Sl. Cloudy Clear [facility] Urine color determinationOrd ered By: Rahul Shetty on 07-30-2024 Color (U) Yellow Yellow [facility] Urine cultureOrdered By: Lucien Shetty on 07-30-2024 Bacteria identified Cx Nom (U) Positive Abnormal [facility] Urine glucose detectionOrder ed By: Rahul Shetty on 07-30-2024 Glucose Ql (U) Normal mg/dl Normal [facility] Urine leukocyte esterase det ection by dipstickOrdered By: Rahul Shetty on 07-30-2024 Leukocyte esterase Test strip Ql (U) Negative Negative [facility] Urine pHOrdered By: Rahul jackson on 07-30-2024 pH (U) 6.0 [pH] 5.0 - 8.0 [facility] Urine sediment bacteria coun t by microscopy (number/high power field)Ordered By: Rahul Shetty on 07-30-2024 Bacteria LM.HPF (Urine sed) [#/Area] 0 /[HPF] None Seen [facility] Urine specific gravity measu rementOrdered By: Rahul Shetty on 07-30-2024 Specific gravity (U) [Rel density] 1.015 1.002-1.030 [facility] Urine urobilinogen measureme ntOrdered By: Rahul Shetty on 07-30-2024 Urobilinogen Ql (U) Normal mg/dl Normal [facility] White blood cell countOrdere d By: Rahul Shetty on 07-30-2024 White blood cell count 0 SEEN /hpf 0-5 [facility] Anion gap in Serum or Plasma Ordered By: Rahul Shetty on 07-27-2024 Anion gap [Moles/Vol] 13 mmol/L 5-15 [facility] BUN/creatinine ratioOrdered By: Rahul Shetty on 07-27-2024 Urea nitrogen/Creatinine [Mass ratio] 12.8 mg/mg 10-20 [facility] Bilirubin, totalOrdered By: Rahul Shetty on 07-27-2024 Bilirubin [Mass/Vol] 0.53 mg/dL 0.00-1.30 [facility] Carbon dioxide, total [Moles /volume] in Central venous bloodOrdered By: Rahul Shetty on 07-27-2024 CO2 [Moles/Vol] 24.3 mmol/L 21.0-32.0 [facility] Chloride assayOrdered By: Vidal Shetty on 07-27-2024 Chloride [Moles/Vol] 103 mmol/L 98-108 [facility] Erythrocyte distribution wid th ratioOrdered By: Rahul Shetty on 07-27-2024 Erythrocyte distribution width (RBC) [Ratio] 13.2 % 11.6-14.6 [facility] Erythrocyte distribution wid th standard deviationOrdered By: Rahul Shetty on 07-27-2024 Erythrocyte distribution width (RBC) [Ratio] 44.5 fl High 35.1-43.9 [facility] Glomerular filtration rate ( GFR) estimation/1.73 sq m using serum, plasma, or whole bOrdered By: Rahul Shetty on 07-27-2024 GFR/1.73 sq M.predicted among non-blacks MDRD (S/P/Bld) [Vol rate/Area] 58 mL/min/{1.73_m2} Low >60 [facility] Comment on above: mL/min/1.73m2 CKD-EP I Creatinine Equation (2020) Hematocrit Auto (Bld) [Volum e fraction]Ordered By: Rahul Shetty on 07-27-2024 Hematocrit (Bld) [Volume fraction] 31.4 % Low 37-47 [facility] Hemoglobin measurementOrdere d By: Rahul Shetty on 07-27-2024 Hemoglobin (Bld) [Mass/Vol] 10.4 g/dL Low 12.0-15.0 [facility] Laboratory - Chemistry and C hemistry - challengeOrdered By: Rahul Shetty on 07-27-2024 AST [Catalytic activity/Vol] 19 U/L <32 [facility] MCV (mean corpuscular volume ) determinationOrdered By: Rahul Shetty on 07-27-2024 MCV (RBC) [Entitic vol] 91.5 fL 81-99 [facility] Mean corpuscular hemoglobin (MCH) determinationOrdered By: Rahul Shetty on 07-27-2024 MCH (RBC) [Entitic mass] 30.3 pg 27.0-32.0 [facility] Mean corpuscular hemoglobin concentration (MCHC) determinationOrdered By: Rahul Shetty on 07-27-2024 MCHC (RBC) [Mass/Vol] 33.1 g/dL 32-36 [facility] Mean platelet volume determi nationOrdered By: Rahul Shetty on 07-27-2024 Platelet mean volume (Bld) [Entitic vol] 10.3 fL 6.2-12.0 [facility] Plastic Surgery Visit Report on 07-27-2024 Plastic Surgery Visit Report [facility] Plastic Reconstructive Surgery [address], [address] [place] [address] OFFICE VISIT Date of Service: 07/27/24 MR#: [id number] Acct: [id number] Name: ROSARIO MCNALLY Rep #: [id number] : 1945 Provider: Dr. Jose Matthews MD Age/Sex: 78/F Location: [facility] Status: Signed Intake Vital Signs 07/06/24 [...] bisacodyl 10 mg rectal suppository 10 mg WA DAILY PRN 03/28/2307/09 History (Dulcolax (bisacodyl)) carbidopa [...] Plan ( (more content not included)... Normal [facility] Platelet countOrdered By: Vidal Shetty on 07-27-2024 Platelets (Bld) [#/Vol] 322 10*3/uL 150-450 [facility] Potassium measurement (mass/ volume)Ordered By: Rahul Shetty on 07-27-2024 Potassium (Unsp spec) [Mass/Vol] 3.8 mmol/L 3.3-5.1 [facility] RBC Auto (Bld) [#/Vol]Ordere d By: Rahul Shetty on 07-27-2024 RBC (Bld) [#/Vol] 3.43 10*6/uL Low 4.2-5.4 [facility] Serum creatinine measurement (mass/volume)Ordered By: Rahul Shetty on 07-27-2024 Creatinine [Mass/Vol] 1.00 mg/dL 0.70-1.20 [facility] Serum globulin measurementOr dered By: Rahul Shetty on 07-27-2024 Globulin (S) [Mass/Vol] 3.3 g/dL 2.2-4.2 [facility] Serum glucose measurement (m ass/volume)Ordered By: Rahul Shetty on 07-27-2024 Glucose [Mass/Vol] 98 mg/dL 70-99 [facility] Serum or plasma alanine quiles otransferase (ALT) measurementOrdered By: Rahul Shetty on 07-27-2024 ALT [Catalytic activity/Vol] 5 U/L <35 [facility] Serum or plasma albumin patricia urement (mass/volume)Ordered By: Rahul Shetty on 07-27-2024 Albumin [Mass/Vol] 4.1 g/dL 3.4-4.8 [facility] Serum or plasma albumin/glob ulin mass ratioOrdered By: Rahul Shetty on 07-27-2024 Albumin/Globulin [Mass ratio] 1.3 {ratio} 0.9-2.4 [facility] Serum or plasma alkaline enriqueta sphatase measurementOrdered By: Rahul Shetty on 07-27-2024 ALP [Catalytic activity/Vol] 103 U/L 35-104 [facility] Serum or plasma calcium patricia urement (mass/volume)Ordered By: Rahul Shetty on 07-27-2024 Calcium [Mass/Vol] 9.6 mg/dL 7.6-11.0 [facility] Serum or plasma urea nitroge n measurement (mass/volume)Ordered By: Rahul Shetty on 07-27-2024 Urea nitrogen [Mass/Vol] 13 mg/dL 4-19 [facility] Sodium levelOrdered By: Clyde Shetty on 07-27-2024 Sodium [Moles/Vol] 140 mmol/L 133-145 [facility] Total proteinOrdered By: Lucien Shetty on 07-27-2024 Protein [Mass/Vol] 7.3 g/dL 5.9-8.4 [facility] White blood cell (WBC) count Ordered By: Rahul Shetty on 07-27-2024 WBC (Bld) [#/Vol] 7.7 10*3/uL 4.4-11.0 [facility] Plastic Surgery Visit Report on 07-13-2024 Plastic Surgery Visit Report [facility] Plastic Reconstructive Surgery [address], [address] [place], [place] [address] OFFICE VISIT Date of Service: 07/13/24 MR#: [id number] Acct: [id number] Name: ROSARIO MCNALLY Rep #: [id number] : 1945 Provider: Dr. Jose Matthews MD Age/Sex: 78/F Location: [facility] Status: Signed Intake Vital Signs 07/06/24 [...] bisacodyl 10 mg rectal suppository 10 mg WA DAILY PRN 03/28/2308/01 History (Dulcolax (bisacodyl)) carbidopa [...] proximal rosa (more content not included)... Normal [facility] Plastic Surgery Visit Report on 07-06-2024 Plastic Surgery Visit Report [facility] Plastic Reconstructive Surgery [address], [address] [place] [address] OFFICE VISIT Date of Service: 07/06/24 MR#: [id number] Acct: [id number] Name: ROSARIO MCNALLY Rep #: [id number] : 1945 Provider: Dr. Jose Matthews MD Age/Sex: 78/F Location: [facility] Status: Signed Intake Vital Signs 3 [...] bisacodyl 10 mg rectal suppository 10 mg WA DAILY PRN 03/28/2306/09 History (Dulcolax (bisacodyl)) carbidopa [...] the s (more content not included)... Normal [facility] Erythrocyte distribution wid th ratioOrdered By: Rahul Shetty on 07-03-2024 Erythrocyte distribution width (RBC) [Ratio] 14.0 % 11.6-14.6 [facility] Erythrocyte distribution wid th standard deviationOrdered By: Rahul Shetty on 07-03-2024 Erythrocyte distribution width (RBC) [Ratio] 47.7 fl High 35.1-43.9 [facility] Gastroenterology Visit Repor ton 07-03-2024 Gastroenterology Visit Report [facility] [address] [place] [address] OFFICE VISIT Date of Service: 07/03/24 MR#: [id number] Acct: [id number] Name: ROSARIO MCNALLY Rep #: [id number] : 1945 Provider: RANDALL li Age/Sex: 78/F Location: [facility] Status: Signed Intake Vital Signs 06/28/24 14:56 [...] POSITIVE HEMOCULT Chief Complaint: occult positive stools 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: No Accompanied by: Caregiver Is patient in pain?: No Allergies amoxicillin (From Trimox) Allergy (Verified 07/03/24 10:13) Hives Medications ???Medication ???Instructions ???Recorded ???Confirmed ???Type acetaminophen 650 mg 650 mg PO Q8H 03/28/23 07/03/24 Hi story tablet,extended release atorvastatin 10 mg tablet 10 mg PO QHS 03/28/23 07/03/24 His tory bisacodyl 10 mg rectal suppository 10 mg WA DAILY PRN 03/28/2306/08 History (Dulcolax (bisacodyl)) carbidopa [...] testing if a lesion/cancer were found [place] [phone] ROS Const Constitutional: No fatigue, fever(s) or weight change ENT ENT: No difficulty swallowing Gastro GI: Positive for Blood in stool; No abdominal pain, belching, bloating, change in bowel habits, c (more content not included)... Normal [facility] Hematocrit Auto (Bld) [Volum e fraction]Ordered By: Rahul Shetty on 07-03-2024 Hematocrit (Bld) [Volume fraction] 30.5 % Low 37-47 [facility] Hemoglobin measurementOrdere d By: Rahul Shetty on 07-03-2024 Hemoglobin (Bld) [Mass/Vol] 9.8 g/dL Low 12.0-15.0 [facility] MCV (mean corpuscular volume ) determinationOrdered By: Rahul Shetty on 07-03-2024 MCV (RBC) [Entitic vol] 93.6 fL 81-99 [facility] Mean corpuscular hemoglobin (MCH) determinationOrdered By: Rahul Shetty on 07-03-2024 MCH (RBC) [Entitic mass] 30.1 pg 27.0-32.0 [facility] Mean corpuscular hemoglobin concentration (MCHC) determinationOrdered By: Rahul Shetty on 07-03-2024 MCHC (RBC) [Mass/Vol] 32.1 g/dL 32-36 [facility] Mean platelet volume determi nationOrdered By: Rahul Shetty on 07-03-2024 Platelet mean volume (Bld) [Entitic vol] 10.4 fL 6.2-12.0 [facility] Platelet countOrdered By: Vidal Shetty on 07-03-2024 Platelets (Bld) [#/Vol] 302 10*3/uL 150-450 [facility] RBC Auto (Bld) [#/Vol]Ordere d By: Rahul Shetty on 07-03-2024 RBC (Bld) [#/Vol] 3.26 10*6/uL Low 4.2-5.4 [facility] White blood cell (WBC) count Ordered By: Rahul Shetty on 07-03-2024 WBC (Bld) [#/Vol] 8.4 10*3/uL 4.4-11.0 [facility] Erythrocyte distribution wid th ratioOrdered By: Rahul Shetty on 06-29-2024 Erythrocyte distribution width (RBC) [Ratio] 13.7 % 11.6-14.6 [facility] Erythrocyte distribution wid th standard deviationOrdered By: Rahul Shetty on 06-29-2024 Erythrocyte distribution width (RBC) [Ratio] 46.4 fl High 35.1-43.9 [facility] Hematocrit Auto (Bld) [Volum e fraction]Ordered By: Rahul Shetty on 06-29-2024 Hematocrit (Bld) [Volume fraction] 30.7 % Low 37-47 [facility] Hemoglobin measurementOrdere d By: Rahul Shetty on 06-29-2024 Hemoglobin (Bld) [Mass/Vol] 9.8 g/dL Low 12.0-15.0 [facility] MCV (mean corpuscular volume ) determinationOrdered By: Rahul Shetty on 06-29-2024 MCV (RBC) [Entitic vol] 92.5 fL 81-99 [facility] Mean corpuscular hemoglobin (MCH) determinationOrdered By: Rahul Shetty on 06-29-2024 MCH (RBC) [Entitic mass] 29.5 pg 27.0-32.0 [facility] Mean corpuscular hemoglobin concentration (MCHC) determinationOrdered By: Rahul Shetty on 06-29-2024 MCHC (RBC) [Mass/Vol] 31.9 g/dL Low 32-36 [facility] Mean platelet volume determi nationOrdered By: Rahul Shetty on 06-29-2024 Platelet mean volume (Bld) [Entitic vol] 10.2 fL 6.2-12.0 [facility] Platelet countOrdered By: Vidal Shetty on 06-29-2024 Platelets (Bld) [#/Vol] 286 10*3/uL 150-450 [facility] RBC Auto (Bld) [#/Vol]Ordere d By: Rahul Shetty on 06-29-2024 RBC (Bld) [#/Vol] 3.32 10*6/uL Low 4.2-5.4 [facility] White blood cell (WBC) count Ordered By: Rahul Shetty on 06-29-2024 WBC (Bld) [#/Vol] 8.0 10*3/uL 4.4-11.0 [facility] Erythrocyte distribution wid th ratioOrdered By: Rahul Shetty on 06-28-2024 Erythrocyte distribution width (RBC) [Ratio] 13.7 % 11.6-14.6 [facility] Erythrocyte distribution wid th standard deviationOrdered By: Rahul Shetty on 06-28-2024 Erythrocyte distribution width (RBC) [Ratio] 46.7 fl High 35.1-43.9 [facility] Hematocrit Auto (Bld) [Volum e fraction]Ordered By: Rahul Shetty on 06-28-2024 Hematocrit (Bld) [Volume fraction] 27.6 % Low 37-47 [facility] Hemoglobin measurementOrdere d By: Rahul Shetty on 06-28-2024 Hemoglobin (Bld) [Mass/Vol] 9.0 g/dL Low 12.0-15.0 [facility] MCV (mean corpuscular volume ) determinationOrdered By: Rahul Shetty on 06-28-2024 MCV (RBC) [Entitic vol] 92.0 fL 81-99 [facility] Mean corpuscular hemoglobin (MCH) determinationOrdered By: Rahul Shetty on 06-28-2024 MCH (RBC) [Entitic mass] 30.0 pg 27.0-32.0 [facility] Mean corpuscular hemoglobin concentration (MCHC) determinationOrdered By: Rahul Shetty on 06-28-2024 MCHC (RBC) [Mass/Vol] 32.6 g/dL 32-36 [facility] Mean platelet volume determi nationOrdered By: Rahul Shetty on 06-28-2024 Platelet mean volume (Bld) [Entitic vol] 10.0 fL 6.2-12.0 [facility] Plastic Surgery Visit Report on 06-28-2024 Plastic Surgery Visit Report [facility] Plastic Reconstructive Surgery [address], [address] [place], [place] [address] OFFICE VISIT Date of Service: 06/28/24 MR#: [id number] Acct: [id number] Name: ROSARIO MCNALLY Rep #: [id number] : 1945 Provider: Dr. Jose Matthews MD Age/Sex: 78/F Location: [facility] Status: Signed Intake Vital Signs 3 [...] bisacodyl 10 mg rectal suppository 10 mg WA DAILY PRN 03/28/2306/08 History (Dulcolax (bisacodyl)) carbidopa [...] 06/28/24 Hist ory mineral oil 118 ml WA DAILY PRN 03/28/2306/28 History polyethylene glycol 3350 17 17 g PO DAILY 03/28/23 06/28/24 Hi story gram/dose oral powder (Miralax) Have you fallen in the past year?: Yes (result laceration of left forearm) Nurse's Note: pt here with daughters for follow up from ED, fall resulted in left arm laceration, [facility] Medical History Blindness left eye category 5, [...] apnea, a (more content not included)... Normal [facility] Platelet countOrdered By: Vidal Shetty on 06-28-2024 Platelets (Bld) [#/Vol] 247 10*3/uL 150-450 [facility] RBC Auto (Bld) [#/Vol]Ordere d By: Rahul Shetty on 06-28-2024 RBC (Bld) [#/Vol] 3.00 10*6/uL Low 4.2-5.4 [facility] White blood cell (WBC) count Ordered By: Rahul Shetty on 06-28-2024 WBC (Bld) [#/Vol] 6.3 10*3/uL 4.4-11.0 [facility] Anion gap in Serum or Plasma Ordered By: Rahul Shetty on 06-27-2024 Anion gap [Moles/Vol] 10 mmol/L 5-15 [facility] BUN/creatinine ratioOrdered By: Rahul Shetty on 06-27-2024 Urea nitrogen/Creatinine [Mass ratio] 28.9 mg/mg High 10-20 [facility] Bilirubin, totalOrdered By: Rahul Shetty on 06-27-2024 Bilirubin [Mass/Vol] 0.41 mg/dL 0.00-1.30 [facility] Carbon dioxide, total [Moles /volume] in Central venous bloodOrdered By: Rahul Shetty on 06-27-2024 CO2 [Moles/Vol] 25.8 mmol/L 21.0-32.0 [facility] Chloride assayOrdered By: Vidal Shetty on 06-27-2024 Chloride [Moles/Vol] 106 mmol/L 98-108 [facility] Erythrocyte distribution wid th ratioOrdered By: Rahul Shetty on 06-27-2024 Erythrocyte distribution width (RBC) [Ratio] 14.0 % 11.6-14.6 [facility] Erythrocyte distribution wid th standard deviationOrdered By: Rahul Shetty on 06-27-2024 Erythrocyte distribution width (RBC) [Ratio] 46.9 fl High 35.1-43.9 [facility] Glomerular filtration rate ( GFR) estimation/1.73 sq m using serum, plasma, or whole bOrdered By: Rahul Shetty on 06-27-2024 GFR/1.73 sq M.predicted among non-blacks MDRD (S/P/Bld) [Vol rate/Area] 63 mL/min/{1.73_m2} >60 [facility] Comment on above: mL/min/1.73m2 CKD-EP I Creatinine Equation (2020) Hematocrit Auto (Bld) [Volum e fraction]Ordered By: Rahul Shetty on 06-27-2024 Hematocrit (Bld) [Volume fraction] 28.2 % Low 37-47 [facility] Hemoglobin measurementOrdere d By: Rahul Shetty on 06-27-2024 Hemoglobin (Bld) [Mass/Vol] 9.1 g/dL Low 12.0-15.0 [facility] Laboratory - Chemistry and C hemistry - challengeOrdered By: Rahul Shetty on 06-27-2024 AST [Catalytic activity/Vol] 17 U/L <32 [facility] MCV (mean corpuscular volume ) determinationOrdered By: Rahul Shetty on 06-27-2024 MCV (RBC) [Entitic vol] 92.2 fL 81-99 [facility] Mean corpuscular hemoglobin (MCH) determinationOrdered By: Rahul Shetty on 06-27-2024 MCH (RBC) [Entitic mass] 29.7 pg 27.0-32.0 [facility] Mean corpuscular hemoglobin concentration (MCHC) determinationOrdered By: Rahul Shetty on 06-27-2024 MCHC (RBC) [Mass/Vol] 32.3 g/dL 32-36 [facility] Mean platelet volume determi nationOrdered By: Rahul Shetty on 06-27-2024 Platelet mean volume (Bld) [Entitic vol] 10.2 fL 6.2-12.0 [facility] Platelet countOrdered By: Vidal Shetty on 06-27-2024 Platelets (Bld) [#/Vol] 237 10*3/uL 150-450 [facility] Potassium measurement (mass/ volume)Ordered By: Rahul Shetty on 06-27-2024 Potassium (Unsp spec) [Mass/Vol] 4.3 mmol/L 3.3-5.1 [facility] RBC Auto (Bld) [#/Vol]Ordere d By: Rahul Shetty on 06-27-2024 RBC (Bld) [#/Vol] 3.06 10*6/uL Low 4.2-5.4 [facility] Serum creatinine measurement (mass/volume)Ordered By: Rahul Shetty on 06-27-2024 Creatinine [Mass/Vol] 0.93 mg/dL 0.70-1.20 [facility] Serum globulin measurementOr dered By: Rahul Shetty on 06-27-2024 Globulin (S) [Mass/Vol] 2.9 g/dL 2.2-4.2 [facility] Serum glucose measurement (m ass/volume)Ordered By: Rahul Shetty on 06-27-2024 Glucose [Mass/Vol] 89 mg/dL 70-99 [facility] [facility] Serum or plasma alanine quiles otransferase (ALT) measurementOrdered By: Rahul Shetty on 06-27-2024 ALT [Catalytic activity/Vol] U/L <35 [facility] Serum or plasma albumin patricia urement (mass/volume)Ordered By: Rahul Shetty on 06-27-2024 Albumin [Mass/Vol] 3.7 g/dL 3.4-4.8 [facility] Serum or plasma albumin/glob ulin mass ratioOrdered By: Rahul Shetty on 06-27-2024 Albumin/Globulin [Mass ratio] 1.3 {ratio} 0.9-2.4 [facility] Serum or plasma alkaline enriqueta sphatase measurementOrdered By: Rahul Shetty on 06-27-2024 ALP [Catalytic activity/Vol] 90 U/L 35-104 [facility] Serum or plasma calcium patricia urement (mass/volume)Ordered By: Rahul Shetty on 06-27-2024 Calcium [Mass/Vol] 9.1 mg/dL 7.6-11.0 [facility] Serum or plasma urea nitroge n measurement (mass/volume)Ordered By: Rahul Shetty on 06-27-2024 Urea nitrogen [Mass/Vol] 27 mg/dL High 4-19 [facility] Sodium levelOrdered By: Clyde Shetty on 06-27-2024 Sodium [Moles/Vol] 142 mmol/L 133-145 [facility] Stool gastrointestinal hemog lobin detection by immunologic methodOrdered By: Rahul Shetty on 06-27-2024 Lower GI hemoglobin IA Ql (Stl) Positive Abnormal [facility] Total proteinOrdered By: Lucien Shetty on 06-27-2024 Protein [Mass/Vol] 6.6 g/dL 5.9-8.4 [facility] White blood cell (WBC) count Ordered By: Rahul Shetty on 06-27-2024 WBC (Bld) [#/Vol] 6.9 10*3/uL 4.4-11.0 [facility] Bilirubin Test strip Ql (U)O rdered By: Rahul Shetty on 06-26-2024 Bilirubin Ql (U) Negative Negative [facility] Ketones Test strip Ql (U)Ord ered By: Rahul Shetty on 06-26-2024 Ketones Ql (U) 5 mg/dl High Negative [facility] Microscopic analysis of urin e for red blood cells (RBC)Ordered By: Rahul Shetty on 06-26-2024 Microscopic analysis of urine for red blood cells (RBC) 0 SEEN /hpf 0-5 [facility] Mucus LM Ql (Urine sed)Order ed By: Rahul Shetty on 06-26-2024 Mucus Ql (Urine sed) 1+ /hpf [facility] Nitrite Test strip Ql (U)Ord ered By: Rahul Shetty on 06-26-2024 Nitrite Ql (U) Negative Negative [facility] Protein Test strip Ql (U)Ord ered By: Rahul Shetty on 06-26-2024 Protein Ql (U) 30 mg/dl High Negative [facility] Squamous epithelial cells de tection in urine sediment by light microscopyOrdered By: Rahul Shetty on 06-26-2024 Epithelial cells.squamous LM Ql (Urine sed) 0-5 SEEN /hpf 5-10 [facility] Urine clarityOrdered By: Lucien Shetty on 06-26-2024 Clarity (U) Clear Clear [facility] Urine color determinationOrd ered By: Rahul Shetty on 06-26-2024 Color (U) Yellow Yellow [facility] Urine cultureOrdered By: Lucien Shetty on 06-26-2024 Bacteria identified Cx Nom (U) Positive Abnormal [facility] Urine glucose detectionOrder ed By: Rahul Shetty on 06-26-2024 Glucose Ql (U) Normal mg/dl Normal [facility] Urine leukocyte esterase det ection by dipstickOrdered By: Rahul Shetty on 06-26-2024 Leukocyte esterase Test strip Ql (U) Negative Negative [facility] Urine pHOrdered By: Rahul jackson on 06-26-2024 pH (U) 5.0 [pH] 5.0 - 8.0 [facility] Urine sediment bacteria coun t by microscopy (number/high power field)Ordered By: Rahul Shetty on 06-26-2024 Bacteria LM.HPF (Urine sed) [#/Area] 1 /[HPF] None Seen [facility] Urine sediment fine granular cast count by microscopy (number/low power field)Ordered By: Rahul Shetty on 06-26-2024 Fine Granular Casts LM.LPF (Urine sed) [#/Area] 0-5 SEEN /lpf 0-5 [facility] Urine specific gravity measu rementOrdered By: Rahul Shetty on 06-26-2024 Specific gravity (U) [Rel density] 1.020 1.002-1.030 [facility] Urine urobilinogen measureme ntOrdered By: Rahul Shetty on 06-26-2024 Urobilinogen Ql (U) Normal mg/dl Normal [facility] White blood cell countOrdere d By: Rahul Shetty on 06-26-2024 White blood cell count 0 SEEN /hpf 0-5 [facility] Emergency Department Summary on 06-25-2024 Emergency Department Summary [facility] Medical Records Department [address] [place] [address] [place] [address] Emergency Department Summary 06/25/24 MR#: [id number] Acct: [id number] Name: ROSARIO MCNALLY Rep #: [id number] : 1945 78 From: Joel Muniz MD PCP: Dr. Yahaira Winn MD Status:DEP ER Location: ED HPI History of Present Illness HPI Narrative: 78-year-old female history of Parkinson disease, anemia. Unwitnessed fall today at [facility]. Has a large forearm laceration/skin [...] of Funtion Narrative Narrative: 78-year-old female from [facility]. Unwitnessed fall. Large skin tear left forearm over the dorsum. Denies other complaints. No head injury. No LOC. She is on no blood thinners. Tetanus Immunization: Unknown Prior similar symptoms: No Recent Illness/[facility]ospitaliza tion: [facility] Blindness left eye category 5, [...] bisacodyl 10 mg rectal suppository 10 mg WA DAILY PRN 03/28/23 Unkn own History (Dulcolax [...] Unknown Histo ry mineral oil 118 ml WA DAILY PRN 03/28/23 Unkno wn History polyethylene [...] girdle int (more content not included)... Normal [facility] Forearm 2 Viewson 06-25-2024 Forearm 2 Views [facility] Imaging Services [address] [place] [address] Forearm 2 Views MR#: [id number] Acct: [id number] Name: ROSARIO MCNALLY Rep #: [id number] : 1945 F 78 From: Joao Rondon MD PCP: Dr. Yahaira Winn MD Status: REG ER Study: Forearm 2 Views Date of Exam: 06/25/24 Exam# [id number] Ordering Dr: Joel Muniz MD PROCEDURE: FOREARM [...] osteopenia slightly limits this evaluation. Reading Location: [id number] CC: Dr. Yahaira Winn MD; Dr. Joel Muniz MD Manager Of Supply Chain: Signed Normal [facility] LABORATORYOrdered By: Cate Galloway on 02-23-2023 Glucose [Mass/Vol] 133 mg/dL High 82 - 115 mg/dL [employer] EMERGENCY REPORTon 4 EMERGENCY REPORT [facility] EMERGENCY ROOM REPORT NAME ACCOUNT SEX AGE ADMIT DISCHARGE PT MED. RECORD# NUMBER DATE DATE TYPE DALI [id number] 02/08/23 02/08/23 3 ROSAIRO Lopez [address] ROOM: ER DATE OF : 1945 DICTATING [...] frequent falls and two nights ago on [place] she fell down 8 to 10 steps. [...] Grey Connor MD 02/08/23 15:14 JOB #: [id number] Transcribed By: ian 02/09/23 07:28 Electronically signed by: MODESTO Connor M.D. 02/22/23 07:05 Page 2 of 2 ROSARIO MCNALLY Emergency Room Report Normal [facility] XR WRIST MINIMUM 3 VIEWS RIG [...] Date: 02/21/2023 12:22:22 PM Ordering Provider: STAN GARCIA [facility] ([place]) .Auto Diffon 02-16-2023 Basophil, Absolute 0.0 10 3/mcL Normal 0.0-0.3 [facility] ([place]) Comment on above: Performed By: #### C BC, MG, ADIFF, BMP, ANEU, GFR, LARON #### [address] [address] Basophils/100 WBC (Bld) 0.6 % Normal 0.0-2.5 A [facility] ([place]) Comment on above: Performed By: #### C BC, MG, ADIFF, BMP, ANEU, GFR, LARON #### [address] [address] Eosinophil, Absolute 0.3 10 3/mcL Normal 0.0-0.7 [facility] ([place]) Comment on above: Performed By: #### C BC, MG, ADIFF, BMP, ANEU, GFR, LARON #### [address] [address] Eosinophils/100 WBC (Bld) 4.3 % Normal 0.0-6.0 [facility] ([place]) Comment on above: Performed By: #### C BC, MG, ADIFF, BMP, ANEU, GFR, LARON #### [address] [address] Lymphocyte, Absolute 1.1 10 3/mcL Normal 0.9-4.3 [facility] ([place]) Comment on above: Performed By: #### C BC, MG, ADIFF, BMP, ANEU, GFR, LARON #### [address] [address] Lymphocytes/100 WBC (Bld) 18.4 % Low 20.0-40.0 [facility] ([place]) Comment on above: Performed By: #### C BC, MG, ADIFF, BMP, ANEU, GFR, LARON #### [address] [address] Monocyte, Absolute 0.7 10 3/mcL Normal 0.1-1.4 [facility] ([place]) Comment on above: Performed By: #### C BC, MG, ADIFF, BMP, ANEU, GFR, LARON #### [address] [address] Monocytes/100 WBC (Bld) 11.9 % Normal 2.0-13.0 A [facility] ([place]) Comment on above: Performed By: #### C BC, MG, ADIFF, BMP, ANEU, GFR, LARON #### [address] [address] Neutrophils/100 WBC (Bld) 64.8 % Normal 50.0-75.0 [facility] ([place]) Comment on above: Performed By: #### C BC, MG, ADIFF, BMP, ANEU, GFR, LARON #### [address] [address] .GFRon 02-16-2023 GFR >60 Normal [facility] ([place]) Comment on above: Result Comment: GFR Population [...] MG, ADIFF, BMP, ANEU, GFR, LARON #### [address] [address] GFR Non- >60 Normal [facility] ([place]) Comment on above: Result Comment: GFR Population [...] MG, ADIFF, BMP, ANEU, GFR, LARON #### [address] [address] .NEUABSon 02-16-2023 Neutrophil, Absolute 4.0 10 3/mcL Normal 2.3-8.1 [facility] ([place]) Comment on above: Performed By: #### C BC, MG, ADIFF, BMP, ANEU, GFR, LARON #### [address] [address] BMPon 02-16-2023 BUN/Creatinine Ratio 19.0 ratio Normal 10.0-22.0 [facility] ([place]) Comment on above: Performed By: #### C BC, MG, ADIFF, BMP, ANEU, GFR, LARON #### [address] [address] Calcium [Mass/Vol] 8.8 mg/dL Normal 8.7-10.4 [facility] ([place]) Comment on above: Performed By: #### C BC, MG, ADIFF, BMP, ANEU, GFR, LARON #### [address] [address] Chloride [Moles/Vol] 105 mmol/L Normal 98-110 [facility] ([place]) Comment on above: Performed By: #### C BC, MG, ADIFF, BMP, ANEU, GFR, LARON #### [address] [address] CO2 [Moles/Vol] 33 mmol/L High 22-32 [facility] ([place]) Comment on above: Performed By: #### C BC, MG, ADIFF, BMP, ANEU, GFR, LARON #### [address] [address] Creatinine [Mass/Vol] 0.58 mg/dL Normal 0.50-1.20 [facility] ([place]) Comment on above: Performed By: #### C BC, MG, ADIFF, BMP, ANEU, GFR, LARON #### [place] [address] Electrolyte Balance 2.0 mEq/L Low 4.0-15.0 [facility] ([place]) Comment on above: Performed By: #### C BC, MG, ADIFF, BMP, ANEU, GFR, LARON #### [place] [id number] Glucose [Mass/Vol] 90 mg/dL Normal 82-115 [facility] ([place]) Comment on above: Performed By: #### C BC, MG, ADIFF, BMP, ANEU, GFR, LARON #### [place] [id number] Potassium [Moles/Vol] 3.6 mmol/L Normal 3.5-5.0 [facility] ([place]) Comment on above: Performed By: #### C BC, MG, ADIFF, BMP, ANEU, GFR, LARON #### [place] [address] Sodium [Moles/Vol] 140 mmol/L Normal 136-145 [facility] ([place]) Comment on above: Performed By: #### C BC, MG, ADIFF, BMP, ANEU, GFR, LARON #### [place] [address] Urea nitrogen [Mass/Vol] 11.0 mg/dL Normal 8.0-22.0 [facility] ([place]) Comment on above: Performed By: #### C BC, MG, ADIFF, BMP, ANEU, GFR, LARON #### [place] [address] CBCon 02-16-2023 Erythrocyte distribution width (RBC) [Ratio] 13.8 % Normal 11.5-15.5 [facility] ([place]) Comment on above: Performed By: #### C BC, MG, ADIFF, BMP, ANEU, GFR, LARON #### [place] [address] Hematocrit (Bld) [Volume fraction] 28.4 % Low 34.0-46.0 [facility] ([place]) Comment on above: Performed By: #### C BC, MG, ADIFF, BMP, ANEU, GFR, LARON #### [place] [address] Hgb 9.9 G/dL Low 12.0-16.0 [facility] ([place]) Comment on above: Performed By: #### C BC, MG, ADIFF, BMP, ANEU, GFR, LARON #### [place] [address] MCH (RBC) [Entitic mass] 31.1 pg Normal 27.0-33.0 [facility] ([place]) Comment on above: Performed By: #### C BC, MG, ADIFF, BMP, ANEU, GFR, LARON #### [place] [address] MCHC 34.7 G/dL Normal 32.0-36.0 [facility] ([place]) Comment on above: Performed By: #### C BC, MG, ADIFF, BMP, ANEU, GFR, LARON #### [place] [address] MCV (RBC) [Entitic vol] 89.6 fL Normal 80.0-99.0 [facility] ([place]) Comment on above: Performed By: #### C BC, MG, ADIFF, BMP, ANEU, GFR, LARON #### [place] [address] Platelet 284 10 3/mcL Normal 150-450 [facility] ([place]) Comment on above: Performed By: #### C BC, MG, ADIFF, BMP, ANEU, GFR, LARON #### [place] [address] Platelet mean volume (Bld) [Entitic vol] 7.9 fL Normal 6.6-10.5 [facility] ([place]) Comment on above: Performed By: #### C BC, MG, ADIFF, BMP, ANEU, GFR, LARON #### [place] [address] RBC 3.17 10 6/mcL Low 4.10-5.30 [facility] ([place]) Comment on above: Performed By: #### C BC, MG, ADIFF, BMP, ANEU, GFR, LARON #### [address] [address] WBC 6.2 10 3/mcL Normal 4.5-10.8 [facility] ([place]) Comment on above: Performed By: #### C BC, MG, ADIFF, BMP, ANEU, GFR, LARON #### [address] [address] LABORATORYOrdered By: SYSTEM SYSTEM on 02-16-2023 Basophils [...] 10^3/mcL AH Workflow SS Eosinophils/100 WBC (Bld) 4.3 % Normal 0.0 - 6.0 % AH Workflow SS Erythrocyte distribution width (RBC) [Ratio] 13.8 % Normal 11.5 - 15.5 % AH [...] 34.7 G/dL Normal 32.0 - 36.0 G/dL Workflow SS MCV (RBC) [Entitic vol] 89.6 [...] Basophil, Absolute 0.0 10 3/mcL Normal 0.0-0.3 [facility] ([place]) Comment on above: Performed By: #### C BC, MG, ADIFF, BMP, ANEU, GFR, LARON #### [address] [address] Basophils/100 WBC (Bld) 0.5 % Normal 0.0-2.5 A [facility] ([place]) Comment on above: Performed By: #### C BC, MG, ADIFF, BMP, ANEU, GFR, LARON #### [address] [address] Eosinophil, Absolute 0.2 10 3/mcL Normal 0.0-0.7 [facility] ([place]) Comment on above: Performed By: #### C BC, MG, ADIFF, BMP, ANEU, GFR, LARON #### [address] [address] Eosinophils/100 WBC (Bld) 3.1 % Normal 0.0-6.0 [facility] ([place]) Comment on above: Performed By: #### C BC, MG, ADIFF, BMP, ANEU, GFR, LARON #### [address] [address] Lymphocyte, Absolute 1.4 10 3/mcL Normal 0.9-4.3 [facility] ([place]) Comment on above: Performed By: #### C BC, MG, ADIFF, BMP, ANEU, GFR, LARON #### [address] [address] Lymphocytes/100 WBC (Bld) 19.7 % Low 20.0-40.0 [facility] ([place]) Comment on above: Performed By: #### C BC, MG, ADIFF, BMP, ANEU, GFR, LARON #### [address] [address] Monocyte, Absolute 0.8 10 3/mcL Normal 0.1-1.4 [facility] ([place]) Comment on above: Performed By: #### C BC, MG, ADIFF, BMP, ANEU, GFR, LARON #### [address] [address] Monocytes/100 WBC (Bld) 11.1 % Normal 2.0-13.0 A [facility] ([place]) Comment on above: Performed By: #### C BC, MG, ADIFF, BMP, ANEU, GFR, LARON #### [address] [address] Neutrophils/100 WBC (Bld) 65.6 % Normal 50.0-75.0 [facility] ([place]) Comment on above: Performed By: #### C BC, MG, ADIFF, BMP, ANEU, GFR, LARON #### [address] [address] .GFRon 02-15-2023 GFR >60 Normal [facility] ([place]) Comment on above: Result Comment: GFR Population [...] MG, ADIFF, BMP, ANEU, GFR, LARON #### [address] [address] GFR Non- >60 Normal [facility] ([place]) Comment on above: Result Comment: GFR Population [...] MG, ADIFF, BMP, ANEU, GFR, LARON #### [address] [address] .NEUABSon 02-15-2023 Neutrophil, Absolute 4.5 10 3/mcL Normal 2.3-8.1 [facility] ([place]) Comment on above: Performed By: #### C BC, MG, ADIFF, BMP, ANEU, GFR, LARON #### [address] [address] BMPon 02-15-2023 BUN/Creatinine Ratio 17.5 ratio Normal 10.0-22.0 [facility] ([place]) Comment on above: Performed By: #### C BC, MG, ADIFF, BMP, ANEU, GFR, LARON #### [address] [address] Calcium [Mass/Vol] 8.4 mg/dL Low 8.7-10.4 [facility] ([place]) Comment on above: Performed By: #### C BC, MG, ADIFF, BMP, ANEU, GFR, LARON #### [address] [address] Chloride [Moles/Vol] 111 mmol/L High 98-110 [facility] ([place]) Comment on above: Performed By: #### C BC, MG, ADIFF, BMP, ANEU, GFR, LARON #### [address] [address] CO2 [Moles/Vol] 29 mmol/L Normal 22-32 [facility] ([place]) Comment on above: Performed By: #### C BC, MG, ADIFF, BMP, ANEU, GFR, LARON #### [address] [address] Creatinine [Mass/Vol] 0.57 mg/dL Normal 0.50-1.20 [facility] ([place]) Comment on above: Performed By: #### C BC, MG, ADIFF, BMP, ANEU, GFR, LARON #### [address] [address] Electrolyte Balance 2.0 mEq/L Low 4.0-15.0 [facility] ([place]) Comment on above: Performed By: #### C BC, MG, ADIFF, BMP, ANEU, GFR, LARON #### [address] [address] Glucose [Mass/Vol] 87 mg/dL Normal 82-115 [facility] ([place]) Comment on above: Performed By: #### C BC, MG, ADIFF, BMP, ANEU, GFR, LARON #### [address] [address] Potassium [Moles/Vol] 3.6 mmol/L Normal 3.5-5.0 [facility] ([place]) Comment on above: Performed By: #### C BC, MG, ADIFF, BMP, ANEU, GFR, LARON #### [place] [id number] Sodium [Moles/Vol] 142 mmol/L Normal 136-145 [facility] ([place]) Comment on above: Performed By: #### C BC, MG, ADIFF, BMP, ANEU, GFR, LARON #### [place] [address] Urea nitrogen [Mass/Vol] 10.0 mg/dL Normal 8.0-22.0 [facility] ([place]) Comment on above: Performed By: #### C BC, MG, ADIFF, BMP, ANEU, GFR, LARON #### [place] [address] CBCon 02-15-2023 Erythrocyte distribution width (RBC) [Ratio] 14.0 % Normal 11.5-15.5 [facility] ([place]) Comment on above: Performed By: #### C BC, MG, ADIFF, BMP, ANEU, GFR, LARON #### [place] [address] Hematocrit (Bld) [Volume fraction] 31.1 % Low 34.0-46.0 [facility] ([place]) Comment on above: Performed By: #### C BC, MG, ADIFF, BMP, ANEU, GFR, LARON #### [place] [address] Hgb 10.3 G/dL Low 12.0-16.0 [facility] ([place]) Comment on above: Performed By: #### C BC, MG, ADIFF, BMP, ANEU, GFR, LARON #### [place] [address] MCH (RBC) [Entitic mass] 29.8 pg Normal 27.0-33.0 [facility] ([place]) Comment on above: Performed By: #### C BC, MG, ADIFF, BMP, ANEU, GFR, LARON #### [place] [address] MCHC 33.1 G/dL Normal 32.0-36.0 [facility] ([place]) Comment on above: Performed By: #### C BC, MG, ADIFF, BMP, ANEU, GFR, LARON #### [place] [address] MCV (RBC) [Entitic vol] 90.2 fL Normal 80.0-99.0 A [facility] ([place]) Comment on above: Performed By: #### C BC, MG, ADIFF, BMP, ANEU, GFR, LARON #### [place] [address] Platelet 271 10 3/mcL Normal 150-450 [facility] ([place]) Comment on above: Performed By: #### C BC, MG, ADIFF, BMP, ANEU, GFR, LARON #### [place] [address] Platelet mean volume (Bld) [Entitic vol] 8.1 fL Normal 6.6-10.5 [facility] ([place]) Comment on above: Performed By: #### C BC, MG, ADIFF, BMP, ANEU, GFR, LARON #### [place] [address] RBC 3.45 10 6/mcL Low 4.10-5.30 [facility] ([place]) Comment on above: Performed By: #### C BC, MG, ADIFF, BMP, ANEU, GFR, LARON #### [place] [address] WBC 6.9 10 3/mcL Normal 4.5-10.8 [facility] ([place]) Comment on above: Performed By: #### C BC, MG, ADIFF, BMP, ANEU, GFR, LARON #### [place] [address] LABORATORYOrdered By: SYSTEM SYSTEM on 02-15-2023 Basophils [...] 0.57 mg/dL Normal 0.50 - 1.20 mg/dL AH ADM SS Electrolyte Balance 2.0 mEq/L Low 4.0 - 15 .0 mEq/L ADM SS Eosinophils (Bld) [#/Vol] 0.2 103/mcL Normal 0.0 - 0.7 10^3/mcL Workflow SS Eosinophils/100 WBC (Bld) 3.1 % Normal 0.0 - 6.0 % Workflow SS Erythrocyte distribution width (RBC) [Ratio] 14.0 % Normal 11.5 - 15.5 % Workflow SS GFR/1.73 sq M.predicted among blacks MDRD (S/P/Bld) [Vol rate/Area] ml/min/1.73sqm Invalid Interpretation Code [employer] S Comment on above: Interpretive Data: [...] (S/P/Bld) [Vol rate/Area] ml/min/1.73sqm Invalid Interpretation Code [employer] S Comment on above: Interpretive Data: [...] 87 mg/dL Normal 82 - 115 mg/dL AH ADM SS Hematocrit (Bld) [Volume fraction] 31.1 [...] 02-15-2023 Magnesium [Mass/Vol] 1.6 mg/dL Normal 1.6-2.4 [facility] ([place]) Comment on above: Performed By: #### C BC, MG, ADIFF, BMP, ANEU, GFR, LARON #### [address] [address] No Panel Informationon 02-14 Culture Urine >100,000 cfu/ml Enterococcus faecalis ANGEL to follow [facility] .Auto Diffon 02-13-2023 Basophil, Absolute 0.0 10 3/mcL Normal 0.0-0.3 [facility] ([place]) Comment on above: Performed By: #### C BC, MG, ADIFF, BMP, ANEU, GFR, LARON #### [address] [address] Basophils/100 WBC (Bld) 0.3 % Normal 0.0-2.5 A [facility] ([place]) Comment on above: Performed By: #### C BC, MG, ADIFF, BMP, ANEU, GFR, LARON #### [address] [address] Eosinophil, Absolute 0.3 10 3/mcL Normal 0.0-0.7 [facility] ([place]) Comment on above: Performed By: #### C BC, MG, ADIFF, BMP, ANEU, GFR, LARON #### [address] [address] Eosinophils/100 WBC (Bld) 4.0 % Normal 0.0-6.0 [facility] ([place]) Comment on above: Performed By: #### C BC, MG, ADIFF, BMP, ANEU, GFR, LARON #### [address] [address] Lymphocyte, Absolute 0.9 10 3/mcL Normal 0.9-4.3 [facility] ([place]) Comment on above: Performed By: #### C BC, MG, ADIFF, BMP, ANEU, GFR, LARON #### [address] [address] Lymphocytes/100 WBC (Bld) 12.1 % Low 20.0-40.0 [facility] ([place]) Comment on above: Performed By: #### C BC, MG, ADIFF, BMP, ANEU, GFR, LARON #### [address] [address] Monocyte, Absolute 0.8 10 3/mcL Normal 0.1-1.4 [facility] ([place]) Comment on above: Performed By: #### C BC, MG, ADIFF, BMP, ANEU, GFR, LARON #### [address] [address] Monocytes/100 WBC (Bld) 11.4 % Normal 2.0-13.0 A [facility] ([place]) Comment on above: Performed By: #### C BC, MG, ADIFF, BMP, ANEU, GFR, LARON #### [address] [address] Neutrophils/100 WBC (Bld) 72.2 % Normal 50.0-75.0 [facility] ([place]) Comment on above: Performed By: #### C BC, MG, ADIFF, BMP, ANEU, GFR, LARON #### [address] [address] .GFRon 02-13-2023 GFR >60 Normal [facility] ([place]) Comment on above: Result Comment: GFR Population [...] MG, ADIFF, BMP, ANEU, GFR, LARON #### [address] [address] GFR Non- >60 Normal [facility] ([place]) Comment on above: Result Comment: GFR Population [...] MG, ADIFF, BMP, ANEU, GFR, LARON #### [address] [address] .NEUABSon 02-13-2023 Neutrophil, Absolute 5.2 10 3/mcL Normal 2.3-8.1 [facility] ([place]) Comment on above: Performed By: #### C BC, MG, ADIFF, BMP, ANEU, GFR, LARON #### [address] [address] [facility] BUN/Creatinine Ratio 20.8 ratio Normal 10.0-22.0 [facility] ([place]) Comment on above: Performed By: #### C BC, MG, ADIFF, BMP, ANEU, GFR, LARON #### [address] [address] Calcium [Mass/Vol] 8.3 mg/dL Low 8.7-10.4 [facility] ([place]) Comment on above: Performed By: #### C BC, MG, ADIFF, BMP, ANEU, GFR, LARON #### [address] [address] Chloride [Moles/Vol] 108 mmol/L Normal 98-110 [facility] ([place]) Comment on above: Performed By: #### C BC, MG, ADIFF, BMP, ANEU, GFR, LARON #### [address] [address] CO2 [Moles/Vol] 25 mmol/L Normal 22-32 [facility] ([place]) Comment on above: Performed By: #### C BC, MG, ADIFF, BMP, ANEU, GFR, LARON #### [place] [id number] Creatinine [Mass/Vol] 0.53 mg/dL Normal 0.50-1.20 [facility] ([place]) Comment on above: Performed By: #### C BC, MG, ADIFF, BMP, ANEU, GFR, LARON #### [place] [address] Electrolyte Balance 7.0 mEq/L Normal 4.0-15.0 [facility] ([place]) Comment on above: Performed By: #### C BC, MG, ADIFF, BMP, ANEU, GFR, LARON #### [place] [id number] Glucose [Mass/Vol] 96 mg/dL Normal 82-115 [facility] ([place]) Comment on above: Performed By: #### C BC, MG, ADIFF, BMP, ANEU, GFR, LARON #### [place] [id number] Potassium [Moles/Vol] 3.4 mmol/L Low 3.5-5.0 [facility] ([place]) Comment on above: Performed By: #### C BC, MG, ADIFF, BMP, ANEU, GFR, LARON #### [address] [address] Sodium [Moles/Vol] 140 mmol/L Normal 136-145 [facility] ([place]) Comment on above: Performed By: #### C BC, MG, ADIFF, BMP, ANEU, GFR, LARON #### [place] [address] Urea nitrogen [Mass/Vol] 11.0 mg/dL Normal 8.0-22.0 [facility] ([place]) Comment on above: Performed By: #### C BC, MG, ADIFF, BMP, ANEU, GFR, LARON #### [place] [id number] [facility]Con 02-13-2023 Erythrocyte distribution width (RBC) [Ratio] 14.2 % Normal 11.5-15.5 [facility] ([place]) Comment on above: Performed By: #### C BC, MG, ADIFF, BMP, ANEU, GFR, LARON #### [place] [address] Hematocrit (Bld) [Volume fraction] 29.4 % Low 34.0-46.0 [facility] ([place]) Comment on above: Performed By: #### C BC, MG, ADIFF, BMP, ANEU, GFR, ALRON #### [place] [address] Hgb 9.9 G/dL Low 12.0-16.0 [facility] ([place]) Comment on above: Performed By: #### C BC, MG, ADIFF, BMP, ANEU, GFR, LARON #### [place] [address] MCH (RBC) [Entitic mass] 30.5 pg Normal 27.0-33.0 [facility] ([place]) Comment on above: Performed By: #### C BC, MG, ADIFF, BMP, ANEU, GFR, LARON #### [place] [address] MCHC 33.6 G/dL Normal 32.0-36.0 [facility] ([place]) Comment on above: Performed By: #### C BC, MG, ADIFF, BMP, ANEU, GFR, LARON #### [place] [address] MCV (RBC) [Entitic vol] 90.6 fL Normal 80.0-99.0 A [facility] ([place]) Comment on above: Performed By: #### C BC, MG, ADIFF, BMP, ANEU, GFR, LARON #### [place] [address] Platelet 221 10 3/mcL Normal 150-450 [facility] ([place]) Comment on above: Performed By: #### C BC, MG, ADIFF, BMP, ANEU, GFR, LARON #### [place] [address] Platelet mean volume (Bld) [Entitic vol] 7.6 fL Normal 6.6-10.5 [facility] ([place]) Comment on above: Performed By: #### C BC, MG, ADIFF, BMP, ANEU, GFR, LARON #### [place] [address] RBC 3.24 10 6/mcL Low 4.10-5.30 [facility] ([place]) Comment on above: Performed By: #### C BC, MG, ADIFF, BMP, ANEU, GFR, LARON #### [place] [address] WBC 7.2 10 3/mcL Normal 4.5-10.8 [facility] ([place]) Comment on above: Performed By: #### C BC, MG, ADIFF, BMP, ANEU, GFR, LARON #### [place] [address] LABORATORYOrdered By: SYSTEM SYSTEM on 02-13-2023 Basophils (Bld) [#/Vol] 0.0 103/mcL Normal 0.0 - 0.3 10^3/mcL AH Workflow SS Basophils/100 WBC (Bld) 0.3 % Normal 0.0 - 2.5 % AH Workflow SS Calcium [Mass/Vol] 8.3 mg/dL Low 8.7 - 10. 4 mg/dL AH ADM SS Chloride [Moles/Vol] 108 mmol/L Normal 98 - 11 0 mEq/L AH ADM SS CO2 [Moles/Vol] 25 mmol/L Normal [...] (S/P/Bld) [Vol rate/Area] ml/min/1.73sqm Invalid Interpretation Code [employer] S Comment on above: Interpretive Data: [...] (S/P/Bld) [Vol rate/Area] ml/min/1.73sqm Invalid Interpretation Code [employer] S Comment on above: Interpretive Data: [...] 20.8 ratio Normal 10.0 - 22.0 ratio ADM SS WBC (Bld) [#/Vol] 7.2 103/mcL Normal 4.5 - 10.8 10^3/mcL Workflow SS .Auto Diffon 02-11-2023 Basophil, Absolute 0.0 10 3/mcL Normal 0.0-0.3 [facility] ([place]) Comment on above: Performed By: #### C BC, MG, ADIFF, BMP, ANEU, GFR, LARON #### [address] [address] Basophils/100 WBC (Bld) 0.5 % Normal 0.0-2.5 A [facility] ([place]) Comment on above: Performed By: #### C BC, MG, ADIFF, BMP, ANEU, GFR, LARON #### [address] [address] Eosinophil, Absolute 0.4 10 3/mcL Normal 0.0-0.7 [facility] ([place]) Comment on above: Performed By: #### C BC, MG, ADIFF, BMP, ANEU, GFR, LARON #### [address] [address] Eosinophils/100 WBC (Bld) 5.1 % Normal 0.0-6.0 [facility] ([place]) Comment on above: Performed By: #### C BC, MG, ADIFF, BMP, ANEU, GFR, LARON #### [address] [address] Lymphocyte, Absolute 1.6 10 3/mcL Normal 0.9-4.3 [facility] ([place]) Comment on above: Performed By: #### C BC, MG, ADIFF, BMP, ANEU, GFR, LARON #### [address] [address] Lymphocytes/100 WBC (Bld) 18.9 % Low 20.0-40.0 [facility] ([place]) Comment on above: Performed By: #### C BC, MG, ADIFF, BMP, ANEU, GFR, LARON #### [address] [address] Monocyte, Absolute 0.9 10 3/mcL Normal 0.1-1.4 [facility] ([place]) Comment on above: Performed By: #### C BC, MG, ADIFF, BMP, ANEU, GFR, LARON #### [address] [address] Monocytes/100 WBC (Bld) 11.1 % Normal 2.0-13.0 [facility] ([place]) Comment on above: Performed By: #### C BC, MG, ADIFF, BMP, ANEU, GFR, LARON #### [address] [address] Neutrophils/100 WBC (Bld) 64.4 % Normal 50.0-75.0 [facility] ([place]) Comment on above: Performed By: #### C BC, MG, ADIFF, BMP, ANEU, GFR, LARON #### [address] [address] .GFRon 02-11-2023 GFR >60 Normal [facility] ([place]) Comment on above: Result Comment: GFR Population [...] MG, ADIFF, BMP, ANEU, GFR, LARON #### [address] [address] GFR Non- >60 Normal [facility] ([place]) Comment on above: Result Comment: GFR Population [...] MG, ADIFF, BMP, ANEU, GFR, LARON #### [address] [address] .NEUABSon 02-11-2023 Neutrophil, Absolute 5.4 10 3/mcL Normal 2.3-8.1 [facility] ([place]) Comment on above: Performed By: #### C BC, MG, ADIFF, BMP, ANEU, GFR, LARON #### [address] [address] BMPon 02-11-2023 BUN/Creatinine Ratio 28.8 ratio High 10.0-22.0 [facility] ([place]) Comment on above: Performed By: #### C BC, MG, ADIFF, BMP, ANEU, GFR, LARON #### [address] [address] Calcium [Mass/Vol] 8.7 mg/dL Normal 8.7-10.4 [facility] ([place]) Comment on above: Performed By: #### C BC, MG, ADIFF, BMP, ANEU, GFR, LARON #### [address] [address] Chloride [Moles/Vol] 107 mmol/L Normal 98-110 [facility] ([place]) Comment on above: Performed By: #### C BC, MG, ADIFF, BMP, ANEU, GFR, LARON #### [address] [address] CO2 [Moles/Vol] 29 mmol/L Normal 22-32 [facility] ([place]) Comment on above: Performed By: #### C BC, MG, ADIFF, BMP, ANEU, GFR, LARON #### [place] [phone] Creatinine [Mass/Vol] 0.80 mg/dL Normal 0.50-1.20 [facility] ([place]) Comment on above: Performed By: #### C BC, MG, ADIFF, BMP, ANEU, GFR, LARON #### [place] [id number] Electrolyte Balance 5.0 mEq/L Normal 4.0-15.0 [facility] ([place]) Comment on above: Performed By: #### C BC, MG, ADIFF, BMP, ANEU, GFR, LARON #### [place] [phone] Glucose [Mass/Vol] 98 mg/dL Normal 82-115 [facility] ([place]) Comment on above: Performed By: #### C BC, MG, ADIFF, BMP, ANEU, GFR, LARON #### [place] [address] Potassium [Moles/Vol] 3.4 mmol/L Low 3.5-5.0 [facility] ([place]) Comment on above: Performed By: #### C BC, MG, ADIFF, BMP, ANEU, GFR, LARON #### [place] [phone] Sodium [Moles/Vol] 141 mmol/L Normal 136-145 [facility] ([place]) Comment on above: Performed By: #### C BC, MG, ADIFF, BMP, ANEU, GFR, LARON #### [place] [address] Urea nitrogen [Mass/Vol] 23.0 mg/dL High 8.0-22.0 [facility] ([place]) Comment on above: Performed By: #### C BC, MG, ADIFF, BMP, ANEU, GFR, LARON #### [address] [address] CBCon 02-11-2023 Erythrocyte distribution width (RBC) [Ratio] 13.9 % Normal 11.5-15.5 [facility] ([place]) Comment on above: Performed By: #### C BC, MG, ADIFF, BMP, ANEU, GFR, LARON #### [place] [address] Hematocrit (Bld) [Volume fraction] 28.6 % Low 34.0-46.0 [facility] ([place]) Comment on above: Performed By: #### C BC, MG, ADIFF, BMP, ANEU, GFR, LARON #### [place] [id number] Hgb 9.9 G/dL Low 12.0-16.0 [facility] ([place]) Comment on above: Performed By: #### C BC, MG, ADIFF, BMP, ANEU, GFR, LARON #### [place] [address] MCH (RBC) [Entitic mass] 31.2 pg Normal 27.0-33.0 [facility] ([place]) Comment on above: Performed By: #### C BC, MG, ADIFF, BMP, ANEU, GFR, LARON #### [place] [address] MCHC 34.7 G/dL Normal 32.0-36.0 [facility] ([place]) Comment on above: Performed By: #### C BC, MG, ADIFF, BMP, ANEU, GFR, LARON #### [place] [address] MCV (RBC) [Entitic vol] 89.9 fL Normal 80.0-99.0 [facility] ([place]) Comment on above: Performed By: #### C BC, MG, ADIFF, BMP, ANEU, GFR, LARON #### [place] [address] Platelet 201 10 3/mcL Normal 150-450 [facility] ([place]) Comment on above: Performed By: #### C BC, MG, ADIFF, BMP, ANEU, GFR, LARON #### [place] [address] Platelet mean volume (Bld) [Entitic vol] 7.9 fL Normal 6.6-10.5 [facility] ([place]) Comment on above: Performed By: #### C BC, MG, ADIFF, BMP, ANEU, GFR, LARON #### [place] [address] RBC 3.18 10 6/mcL Low 4.10-5.30 [facility] ([place]) Comment on above: Performed By: #### C BC, MG, ADIFF, BMP, ANEU, GFR, LARON #### [place] [address] WBC 8.4 10 3/mcL Normal 4.5-10.8 [facility] ([place]) Comment on above: Performed By: #### C BC, MG, ADIFF, BMP, ANEU, GFR, LARON #### [place] [address] CORTon 02-11-2023 Cortisol Level 17.4 mcg/dL Normal [facility] ([place]) Comment on above: Result Comment: Laron isol AM Reference Range 6.5-26.0 mcg/dL Cortisol PM Reference Range 3.5-15.0 mcg/dL Performed By: #### C BC, MG, ADIFF, BMP, ANEU, GFR, LARON #### [place] [address] LABORATORYOrdered By: SYSTEM SYSTEM on 02-11-2023 Basophils [...] 0.4 103/mcL Normal 0.0 - 0.7 10^3/mcL AH Workflow SS Eosinophils/100 WBC (Bld) 5.1 % Normal 0.0 - 6.0 % Workflow SS Erythrocyte distribution width (RBC) [Ratio] 13.9 % Normal 11.5 - 15.5 % Workflow SS GFR/1.73 sq M.predicted among blacks MDRD (S/P/Bld) [Vol rate/Area] ml/min/1.73sqm Invalid Interpretation Code [employer] S Comment on above: Interpretive Data: [...] (S/P/Bld) [Vol rate/Area] ml/min/1.73sqm Invalid Interpretation Code [employer] S Comment on above: Interpretive Data: [...] 34.7 G/dL Normal 32.0 - 36.0 G/dL Workflow SS MCV (RBC) [Entitic vol] 89.9 [...] 64.4 % Normal 50.0 - 75.0 % Workflow [...] 02-11-2023 Magnesium [Mass/Vol] 1.8 mg/dL Normal 1.6-2.4 [facility] ([place]) Comment on above: Performed By: #### C BC, MG, ADIFF, BMP, ANEU, GFR, LARON #### [address] [address] .Auto Diffon 02-09-2023 Basophil, Absolute 0.0 10 3/mcL Normal 0.0-0.3 [facility] ([place]) Comment on above: Performed By: #### B MP, CBC, ANEU, GFR, ADIFF #### [address] [address] Basophils/100 WBC (Bld) 0.5 % Normal 0.0-2.5 A [facility] ([place]) Comment on above: Performed By: #### B MP, CBC, ANEU, GFR, ADIFF #### [address] [address] Eosinophil, Absolute 0.4 10 3/mcL Normal 0.0-0.7 [facility] ([place]) Comment on above: Performed By: #### B MP, CBC, ANEU, GFR, ADIFF #### [address] [address] Eosinophils/100 WBC (Bld) 3.7 % Normal 0.0-6.0 [facility] ([place]) Comment on above: Performed By: #### B MP, CBC, ANEU, GFR, ADIFF #### [address] [address] Lymphocyte, Absolute 1.2 10 3/mcL Normal 0.9-4.3 [facility] ([place]) Comment on above: Performed By: #### B MP, CBC, ANEU, GFR, ADIFF #### [address] [address] Lymphocytes/100 WBC (Bld) 13.0 % Low 20.0-40.0 [facility] ([place]) Comment on above: Performed By: #### B MP, CBC, ANEU, GFR, ADIFF #### [address] [address] Monocyte, Absolute 1.0 10 3/mcL Normal 0.1-1.4 [facility] ([place]) Comment on above: Performed By: #### B MP, CBC, ANEU, GFR, ADIFF #### [address] [address] Monocytes/100 WBC (Bld) 10.7 % Normal 2.0-13.0 A [facility] ([place]) Comment on above: Performed By: #### B MP, CBC, ANEU, GFR, ADIFF #### [address] [address] Neutrophils/100 WBC (Bld) 72.1 % Normal 50.0-75.0 [facility] ([place]) Comment on above: Performed By: #### B MP, CBC, ANEU, GFR, ADIFF #### [address] [address] .GFRon 02-09-2023 GFR >60 Normal [facility] ([place]) Comment on above: Result Comment: GFR Population [...] MG, ADIFF, BMP, ANEU, GFR, LARON #### [address] [address] GFR Non- >60 Normal [facility] ([place]) Comment on above: Result Comment: GFR Population [...] MG, ADIFF, BMP, ANEU, GFR, LARON #### [address] [address] .NEUABSon 02-09-2023 Neutrophil, Absolute 6.9 10 3/mcL Normal 2.3-8.1 [facility] ([place]) Comment on above: Performed By: #### C BC, MG, ADIFF, BMP, ANEU, GFR, LARON #### [address] [address] BMPon 02-09-2023 BUN/Creatinine Ratio 27.1 ratio High 10.0-22.0 [facility] ([place]) Comment on above: Order Comment: Shuni ne for 0501 the morning of patient admission. Performed By: #### C BC, MG, ADIFF, BMP, ANEU, GFR, LARON #### [address] [address] Calcium [Mass/Vol] 9.0 mg/dL Normal 8.7-10.4 [facility] ([place]) Comment on above: Order Comment: Routi ne for 0501 the morning of patient admission. Performed By: #### C BC, MG, ADIFF, BMP, ANEU, GFR, LARON #### [address] [address] Chloride [Moles/Vol] 109 mmol/L Normal 98-110 [facility] ([place]) Comment on above: Order Comment: Routi ne for 0501 the morning of patient admission. Performed By: #### C BC, MG, ADIFF, BMP, ANEU, GFR, LARON #### [address] [address] CO2 [Moles/Vol] 27 mmol/L Normal 22-32 [facility] ([place]) Comment on above: Order Comment: Routi ne for 0501 the morning of patient admission. Performed By: #### C BC, MG, ADIFF, BMP, ANEU, GFR, LARON #### [place] [phone] Creatinine [Mass/Vol] 0.70 mg/dL Normal 0.50-1.20 [facility] ([place] Comment on above: Order Comment: Routi ne for 0501 the morning of patient admission. Performed By: #### C BC, MG, ADIFF, BMP, ANEU, GFR, LARON #### [place] [address] Electrolyte Balance 5.0 mEq/L Normal 4.0-15.0 [facility] ([place]) Comment on above: Order Comment: Routi ne for 0501 the morning of patient admission. Performed By: #### C BC, MG, ADIFF, BMP, ANEU, GFR, LARON #### [place] [phone] Glucose [Mass/Vol] 102 mg/dL Normal 82-115 [facility] ([place]) Comment on above: Order Comment: Routi ne for 0501 the morning of patient admission. Performed By: #### C BC, MG, ADIFF, BMP, ANEU, GFR, LARON #### [place] [phone] Potassium [Moles/Vol] 3.4 mmol/L Low 3.5-5.0 [facility] ([place]) Comment on above: Order Comment: Routi ne for 0501 the morning of patient admission. Performed By: #### C BC, MG, ADIFF, BMP, ANEU, GFR, LARON #### [place] [phone] Sodium [Moles/Vol] 141 mmol/L Normal 136-145 [facility] ([place]) Comment on above: Order Comment: Routi ne for 0501 the morning of patient admission. Performed By: #### C BC, MG, ADIFF, BMP, ANEU, GFR, LARON #### [place] [address] Urea nitrogen [Mass/Vol] 19.0 mg/dL Normal 8.0-22.0 [facility] ([place]) Comment on above: Order Comment: Routi ne for 0501 the morning of patient admission. Performed By: #### C BC, MG, ADIFF, BMP, ANEU, GFR, LARON #### [place] [address] CBCon 02-09-2023 Erythrocyte distribution width (RBC) [Ratio] 14.0 % Normal 11.5-15.5 [facility] ([place]) Comment on above: Order Comment: Routi ne for 0501 the morning of patient admission. Performed By: #### B MP, CBC, ANEU, GFR, ADIFF #### [place] [address] Hematocrit (Bld) [Volume fraction] 28.5 % Low 34.0-46.0 [facility] ([place]) Comment on above: Order Comment: Routi ne for 0501 the morning of patient admission. Performed By: #### B MP, CBC, ANEU, GFR, ADIFF #### [place] [address] Hgb 9.6 G/dL Low 12.0-16.0 [facility] ([place]) Comment on above: Order Comment: Routi ne for 0501 the morning of patient admission. Performed By: #### B MP, CBC, ANEU, GFR, ADIFF #### [place] [phone] MCH (RBC) [Entitic mass] 30.4 pg Normal 27.0-33.0 [facility] ([place]) Comment on above: Order Comment: Routi ne for 0501 the morning of patient admission. Performed By: #### B MP, CBC, ANEU, GFR, ADIFF #### [place] [id number] MCHC 33.8 G/dL Normal 32.0-36.0 [facility] ([place]) Comment on above: Order Comment: Routi ne for 0501 the morning of patient admission. Performed By: #### B MP, CBC, ANEU, GFR, ADIFF #### [place] [address] MCV (RBC) [Entitic vol] 89.7 fL Normal 80.0-99.0 A [facility] ([place]) Comment on above: Order Comment: Routi ne for 0501 the morning of patient admission. Performed By: #### B MP, CBC, ANEU, GFR, ADIFF #### [place] [id number] Platelet 186 10 3/mcL Normal 150-450 [facility] ([place]) Comment on above: Order Comment: Routi ne for 0501 the morning of patient admission. Performed By: #### B MP, CBC, ANEU, GFR, ADIFF #### [place] [phone] Platelet mean volume (Bld) [Entitic vol] 8.0 fL Normal 6.6-10.5 [facility] ([place]) Comment on above: Order Comment: Routi ne for 0501 the morning of patient admission. Performed By: #### B MP, CBC, ANEU, GFR, ADIFF #### [place] [id number] RBC 3.18 10 6/mcL Low 4.10-5.30 [facility] ([place]) Comment on above: Order Comment: Routi ne for 0501 the morning of patient admission. Performed By: #### B MP, CBC, ANEU, GFR, ADIFF #### [place] [id number] WBC 9.5 10 3/mcL Normal 4.5-10.8 [facility] ([place]) Comment on above: Order Comment: Routi ne for 0501 the morning of patient admission. Performed By: #### B MP, CBC, ANEU, GFR, ADIFF #### [place] [address] CT THORAX W/ CONTRASTon CT THORAX W/ [...] 02/08/2023 10:26:14 PM Ordering Provider: LIZ SY [facility] ([place]) LABORATORYOrdered By: Keeley Hester on 02-09-2023 Appearance [...] SS UAon 02-09-2023 Color (U) Yellow Normal [facility] ([place]) Comment on above: Performed By: #### C BC, MG, ADIFF, BMP, ANEU, GFR, LARON #### [address] [address] Glucose (U) [Mass/Vol] Negative Normal Negative [facility] ([place]) Comment on above: Performed By: #### C BC, MG, ADIFF, BMP, ANEU, GFR, LARON #### [address] [address] Ketones Ql (U) 15 mg/dL Abnormal Neg-Trace [facility] ([place]) Comment on above: Performed By: #### C BC, MG, ADIFF, BMP, ANEU, GFR, LARON #### [address] [address] UA Appear Clear Normal Clear [facility] ([place]) Comment on above: Performed By: #### C BC, MG, ADIFF, BMP, ANEU, GFR, LARON #### [address] [address] UA Blood Trace Normal Neg-Trace [facility] ([place]) Comment on above: Performed By: #### C BC, MG, ADIFF, BMP, ANEU, GFR, LARON #### [address] [address] UA Leuk Est Moderate Abnormal Negative [facility] ([place]) Comment on above: Performed By: #### C BC, MG, ADIFF, BMP, ANEU, GFR, LARON #### [address] [address] UA Nitrite Negative Normal Negative [facility] ([place]) Comment on above: Performed By: #### C BC, MG, ADIFF, BMP, ANEU, GFR, LARON #### [address] [address] UA pH 7.0 Normal 5.0 - 8.0 [facility] ([place]) Comment on above: Performed By: #### C BC, MG, ADIFF, BMP, ANEU, GFR, LARON #### [address] [address] UA Protein Negative Normal Negative [facility] ([place]) Comment on above: Performed By: #### C BC, MG, ADIFF, BMP, ANEU, GFR, LARON #### [address] [address] UA Spec Grav 1.025 Normal 1.006-1.029 [facility] ([place]) Comment on above: Performed By: #### C BC, MG, ADIFF, BMP, ANEU, GFR, LARON #### [address] [address] UA Specimen Type Not Given Normal [facility] ([place]) Comment on above: Performed By: #### C BC, MG, ADIFF, BMP, ANEU, GFR, LARON #### [address] [address] UA Urobilinogen 1.0 E.U./dL Normal 0.2-1.0 [facility] ([place]) Comment on above: Performed By: #### C BC, MG, ADIFF, BMP, ANEU, GFR, LARON #### [address] [address] Urobilinogen (U) [Mass/Vol] Negative Normal Neg-Trace [facility] ([place]) Comment on above: Performed By: #### C BC, MG, ADIFF, BMP, ANEU, GFR, LARON #### [address] [address] UAMICon 02-09-2023 UA Bacteria 1+ /hpf Abnormal Negative [facility] ([place]) Comment on above: Performed By: #### C BC, MG, ADIFF, BMP, ANEU, GFR, LARON #### [place] [address] UA RBC 10-20 Abnormal 0-2 [facility] ([place]) Comment on above: Performed By: #### C BC, MG, ADIFF, BMP, ANEU, GFR, LARON #### [place] [phone] UA Squam Epithelial 5-10 Normal 0-20 [facility] ([place]) Comment on above: Performed By: #### C BC, MG, ADIFF, BMP, ANEU, GFR, LARON #### [place] [address] UA WBC 3-5 Normal 0-5 [facility] ([place]) Comment on above: Performed By: #### C BC, MG, ADIFF, BMP, ANEU, GFR, LARON #### [place] [id number] Paula 02-08-2023 Ethanol Level <10.0 Normal [facility] ([place]) Comment on above: Performed By: #### A LC #### [place] [address] C-REACTIVE PROTEINon 024 CRP 3.46 mg/dl High 0.00 - 0.90 [facility] Comment on above: Performed By: #### 2 52746 #### [facility],[address] [place] [address] CBC + DIFFon 02-08-2023 Baso # 0.00 x10EE3/UL Normal 0.00 - 0.10 [facility] Comment on above: Performed By: #### 2 77788 #### [facility],[address] [place] [address] Basophils/100 WBC (Bld) 0.3 % Normal 0.0 - 2.0 [facility] Comment on above: Performed By: #### 2 87617 #### [facility],[address] [place] [address] CBC + DIFF Normal [facility] Comment on above: Result Comment: CBC- COMPLETE BLOOD COUNT Performed By: #### 2 84369 #### [facility],[address] [place] [address] EO # 0.20 x10EE3/UL Normal 0.00 - 0.50 [facility] Comment on above: Performed By: #### 2 53643 #### [facility],[address] [place] [address] Eosinophils/100 WBC (Bld) 2.5 % Normal 0.0 - 7.0 [facility] Comment on above: Performed By: #### 2 09513 #### [facility],[address] [place] [address] Erythrocyte distribution width (RBC) [Ratio] 14.3 % Normal 12.0 - 15.6 [facility] Comment on above: Performed By: #### 2 44798 #### [facility],[address] [place] [address] Hematocrit (Bld) [Volume fraction] 31.3 % Low 34.0 - 46.0 [facility] Comment on above: Performed By: #### 2 82313 #### [facility],[address] [place] [address] Hemoglobin (Bld) [Mass/Vol] 10.1 g/dL Low 12.0 - 16.0 [facility] Comment on above: Performed By: #### 2 63631 #### [facility],[address] [place] [address] Lymph # 0.80 x10EE3/UL Normal 0.80 - 2.80 [facility] Comment on above: Performed By: #### 2 57359 #### [facility],[address] [place] [address] Lymphocytes/100 WBC (Bld) 9.1 % Low 20.0 - 45.0 [facility] Comment on above: Performed By: #### 2 34182 #### [facility],[address] [place] [address] MANUAL DIFF N/A Normal [facility] Comment on above: Performed By: #### 2 22575 #### [facility],[address] [place], [place] [id number] MCH (RBC) [Entitic mass] 30 pg Normal 27 - 33 [facility] Comment on above: Performed By: #### 2 94907 #### [facility],[address] [place] [address] MCHC 32 X10 3 Normal 32 - 36 [facility] Comment on above: Performed By: #### 2 79579 #### [facility],[address] [place], [place] [id number] MCV (RBC) [Entitic vol] 91 fL Normal 80 - 99 [facility] Comment on above: Performed By: #### 2 56628 #### [facility],[address] [place], [place] [id number] [place] # 0.80 x10EE3/UL Normal 0.20 - 1.00 [facility] Comment on above: Performed By: #### 2 56061 #### [facility],[address] [place] [address] MONOS % 8.9 % Normal 0.0 - 10.0 [facility] Comment on above: Performed By: #### 2 54417 #### [facility],[address] [place] [address] Morphology Andre (Bld) [Interp] N/A Normal [facility] Comment on above: Result Comment: {CD] Performed By: #### 2 87612 #### [facility],[address] [place] [address] Neut # 7.40 x10EE3/UL High 1.50 - 7.10 [facility] Comment on above: Performed By: #### 2 98537 #### [facility],[address] [place] [address] Neutrophils/100 WBC (Bld) 79.2 % High 46.0 - 76.0 [facility] Comment on above: Performed By: #### 2 48964 #### [facility],[address] [place] [address] PLATELET 224 x10EE3/UL Normal 150 - 450 [facility] Comment on above: Performed By: #### 2 20618 #### [facility],[address] [place] [address] Platelet mean volume (Bld) [Entitic vol] 8.2 fL Normal 6.6 - 10.5 [facility] Comment on above: Result Comment: AUTO MATED DIFFERENTIAL Performed By: #### 2 38195 #### [facility],[address] [place] [address] RBC 3.43 x 10EE6/UL Low 4.10 - 5.30 [facility] Comment on above: Performed By: #### 2 65052 #### [facility],[address] [place] [address] WBC 9.3 x 10EE3/UL Normal 4.5 - 10.8 [facility] Comment on above: Performed By: #### 2 45484 #### [facility],[address] [place] [address] CMP with eGFRon 02-08-2023 AGE 77 years Normal [facility] Comment on above: Performed By: #### 2 64099 #### [facility],[address] [place] [address] Albumin [Mass/Vol] 3.3 g/dL Low 3.4 - 5.0 [facility] Comment on above: Performed By: #### 2 79302 #### [facility],[address] [place] [address] Albumin/Globulin [Mass ratio] 0.8 {ratio} Low 0.9 - 1.6 [facility] [facility] Comment on above: Performed By: #### 2 67155 #### [facility],[address] [place] [address] 69668 ALK PHOS 85 U/L Normal 46 - 116 [facility] Comment on above: Performed By: #### 2 33261 #### [facility],[address] [place] [address] 42999 ALT [Catalytic activity/Vol] 8 U/L Low 14 - 59 [facility] Comment on above: Performed By: #### 2 55281 #### [facility],[address] [place] [address] 19148 Anion gap [Moles/Vol] 13 mmol/L Normal 10 - 20 [facility] Comment on above: Performed By: #### 2 66622 #### [facility],[address] [place] [address] 50094 AST [Catalytic activity/Vol] 26 U/L Normal 13 - 39 [facility] Comment on above: Performed By: #### 2 49868 #### [facility],[address] [place] [address] 14146 B/C RATIO 26 ratio Normal 0 - 30 [facility] Comment on above: Performed By: #### 2 75541 #### [facility],[address] [place] [address] 20564 Bilirubin [Mass/Vol] 1.0 mg/dL Normal 0.2 - 1.0 [facility] Comment on above: Performed By: #### 2 83543 #### [facility],[address] [place] [address] 88789 Calcium [Mass/Vol] 9.5 mg/dL Normal 8.5 - 10.1 [facility] Comment on above: Performed By: #### 2 21827 #### [facility],[address] [place] [address] 75443 Chloride [Moles/Vol] 103 mmol/L Normal 98 - 107 [facility] Comment on above: Performed By: #### 2 80535 #### [facility],[address] [place] [address] 01927 CMP with eGFR Normal [facility] Comment on above: Result Comment: COMP REHENSIVE METABOLIC PANEL Performed By: #### 2 21987 #### [facility],[address] [place] [address] 70872 CO2 [Moles/Vol] 28.9 mmol/L Normal 21.0 - 32.0 [facility] Comment on above: Performed By: #### 2 06290 #### [facility],[address] [place] [address] 38788 Creatinine [Mass/Vol] 1.02 mg/dL Normal 0.55 - 1.02 [facility] Comment on above: Performed By: #### 2 90039 #### [facility],[address] [place] [address] 09559 eGFR 53 ML/MINUTE Low 60 - 999 [facility] Comment on above: Performed By: #### 2 05267 #### [facility],[address] [place] [address] 60287 GFR/1.73 sq M.predicted among non-blacks MDRD (S/P/Bld) [Vol rate/Area] mL/min/{1.73_m2} Normal 60 - 999 [facility] Comment on above: Result Comment: ACCO RDING TO THE NATIONAL KIDNEY DISEASE EDUCATION PROGRAM(NKDE), A NORMAL eGFR IS A VALUE GREATER THAN OR EQUAL TO 60 ML/MIN/1.73 SQ METERS. CHRONIC KIDNEY DISEASE: <60mL/MIN/1.73 SQ METERS KIDNEY FAILURE: <15mL/MIN/1.73 SQ METERS THIS TEST SHOULD ONLY BE USED FOR PATIENTS 18 YEARS OF AGE AND OLDER. Performed By: #### 2 71965 #### [facility],[address] [place] [address] 58776 Globulin (S) [Mass/Vol] 4.1 g/dL High 1.5 - 3.8 [facility] Comment on above: Performed By: #### 2 77695 #### [facility],[address] [place] [address] 64821 Glucose [Mass/Vol] 95 mg/dL Normal 74 - 106 [facility] Comment on above: Performed By: #### 2 08746 #### [facility],[address] [place] [address] 94794 Potassium [Moles/Vol] 3.8 mmol/L Normal 3.5 - 5.1 [facility] Comment on above: Performed By: #### 2 03295 #### [facility],[address] [place] [address] 83988 Protein [Mass/Vol] 7.4 g/dL Normal 6.4 - 8.2 [facility] Comment on above: Performed By: #### 2 37946 #### [facility],[address] [place] [address] 54047 Sodium [Moles/Vol] 141 mmol/L Normal 136 - 145 [facility] Comment on above: Performed By: #### 2 10891 #### [facility],[address] [place] [address] 74139 Urea nitrogen [Mass/Vol] 27 mg/dL High 7 - 18 [facility] Comment on above: Performed By: #### 2 73780 #### [facility],[address] [place] [address] 83785 CORONAVIRUS (SARS) ANTIGEN T ESTon 02-08-2023 EXTERNAL QC DONE? YES Normal [facility] Comment on above: Performed By: #### 2 43832 ####[facility],[address] [place] [address] 64300 INTERNAL CONTROL PASS Normal [facility] Comment on above: Performed By: #### 2 52171 ####[facility],[address] [place] [address] 95157 SARS ANTIGEN Negative Normal NORMAL: NEGATIVE [facility] Comment on above: Performed By: #### 2 53258 ####[facility],[address] [place] [address] 68573 SEND TO ? NO Normal [facility] Comment on above: Result Comment: SARS -CoV-2 THIS TEST IS BEING USED UNDER THE FDA EUA PROCEDURE. THIS ASSAY HAS BEEN VALIDATED AT [facility] FOR USE WITH NASAL AND NASOPHARYNGEAL [...] PUBLIC HEALTH AUTHORITIES. Performed By: #### 2 27644 ####[facility],[address] [place] [address] CT BRAIN W/O CONTRASTon CT BRAIN W/O CONTRAST [place] [address] Patient: ROSARIO MCNALLY Phone#: : 1945 Age: 77 Gender: F Pt. Type: ER Account: [id number] Location: [facility] Ordering: GREY CONNOR Exam Date: 02/08/2023/13:38 Family Phys: CHICO COLLIER Charge Code: [id number] Physician: [place] Order #: [id number] Dose#: 57.50 mGy PROCEDURE: CT BRAIN WITHOUT CONTRAST COMPARISON: [facility], CT, BRAIN W/O CON, 06/10/2022, 21:04. [...] significant mucosal thickening or fluid. ORBITS: Left [place] ocular lenses absent. OTHER: Atherosclerotic calcifications of the intracranial arteries. CONCLUSION: 1. Right occipital subarachnoid hemorrhage. This finding was communicated by telephone to Dr. Grey Connor at the dictation time shown below. 2. Global atrophy and atherosclerosis Dictated by: Adilene Bui MD on 02/08/2023 at 13:50 Approved by: Adilene Bui MD on 02/08/2023 at 13:[address] [facility] [address] SPINE CERVICAL W/O CONTRA STon [...] Date: 02/08/2023 6:55:16 PM Ordering Provider: LIZ Tirado [facility] ([place]) LABORATORYOrdered By: SYSTEM SYSTEM on 02-08-2023 Ethanol [Mass/Vol] mg/dL Invalid Interpretation Code AH ADM SS LIPASEon 02-08-2023 Lipase [Catalytic activity/Vol] 20.0 U/L Normal 15.0 - 78.0 [facility] Comment on above: Result Comment: *PLE ASE NOTE THAT RANGES FOR LIPASE HAVE CHANGED OF 02/04/23 DUE TO AN ASSAY UPDATE BY THE LEGAL SPECIALIST.THE NEW ASSAY RANGE IS 6-250 U/L, WITH A REFERENCE RANGE OF 16-77 U/L. Performed By: #### 2 51805 #### [place] [address] TROPONIN I, HIGH SENSITIVITY on 02-08-2023 HS TROPONIN 13.2 pg/mL Normal 0.0 - 51.4 [facility] Comment on above: Performed By: #### 2 25338 #### [place] [address] TSHon 02-08-2023 TSH Qn 1.80 m[IU]/L Normal 0.35 - 3.74 [facility] Comment on above: Performed By: #### 2 66623 #### [facility],[address] [place], [place] [id number] URINALYSISon 02-08-2023 Amorphous NONE Normal [facility] Comment on above: Performed By: #### 2 52683 ####[address] [address] Bacteria 1+ Normal [facility] Comment on above: Performed By: #### 2 29499 ####[address] [address] Bilirubin Ql (U) Negative Normal NORMAL: NEGATIVE [facility] Comment on above: Performed By: #### 2 67379 ####[facility],[address] [place] [address] 88414 Casts NONE Normal [facility] Comment on above: Performed By: #### 2 45298 ####[facility],[address] [place] [address] 57496 Clarity (U) clear Normal NORMAL: CLEAR [facility] Comment on above: Performed By: #### 2 92611 ####[facility],[address] [place] [address] 49990 Color (U) keeley Normal NORMAL: YELLOW [facility] Comment on above: Performed By: #### 2 28727 ####[facility],[address] [place] [address] 03508 Crystals LM Nom (Urine sed) NONE Normal [facility] Comment on above: Performed By: #### 2 10055 ####[facility],[address] [place] [address] 26726 Epi Cells MODERATE Normal [facility] Comment on above: Performed By: #### 2 89955 ####[facility],[address] [place] [address] 77039 Glucose Ql (U) NORM Normal NORMAL: NORMAL [facility] Comment on above: Performed By: #### 2 68164 ####[facility],[address] [place] [address] 38343 Hemoglobin Ql (U) 50 Abnormal NORMAL: NEGATIVE [facility] Comment on above: Performed By: #### 2 38375 ####[facility],[address] [place] [address] 74044 Ketone 5 Abnormal NORMAL: NEGATIVE [facility] Comment on above: Performed By: #### 2 16345 ####[facility],[address] [place] [address] 01165 Leukocytes 25 Abnormal NORMAL: NEGATIVE [facility] Comment on above: Performed By: #### 2 04161 ####[facility],[address] [place] [address] 92977 Mucous NONE Normal [facility] Comment on above: Performed By: #### 2 03943 ####[facility],[address] [place] [address] 80147 Nitrite Ql (U) Negative Normal NORMAL: NEGATIVE [facility] Comment on above: Performed By: #### 2 31903 ####[facility],[address] [place] [address] pH (U) 6 [pH] Normal NORMAL: 5.0-8.0 [facility] Comment on above: Performed By: #### 2 07944 ####[facility],[address] [place] [address] Protein Ql (U) 15 Abnormal NORMAL: NEGATIVE [facility] Comment on above: Performed By: #### 2 91823 ####[facility],[address] [place] [address] Rbc 0-5 Normal 0-3/hpf [facility] Comment on above: Performed By: #### 2 73382 ####[facility],[address] [place] [address] Sp [place] 1.015 Normal NORMAL: 1.010-1.030 [facility] Comment on above: Performed By: #### 2 96472 ####[facility],[address] [place] [address] Specimen Type UNSPECIFIED Normal [facility] Comment on above: Performed By: #### 2 42789 ####[facility],[address] [place], [place] [id number] Urinalysis dipstick W Reflex Microscopic panel (U) SEE BELOW Normal [facility] Comment on above: Result Comment: MICR OSCOPIC Performed By: #### 2 53931 ####[facility],[address] [place], [place] [address] Urobilinog 1 Abnormal NORMAL: NORMAL [facility] Comment on above: Performed By: #### 2 06512 ####[facility],[address] [place] [address] 51737 Wbc 1-5 Normal 0-5/hpf [facility] Comment on above: Performed By: #### 2 67484 ####[facility],[address] [place] [address] 06996 Yeast NONE Normal [facility] Comment on above: Performed By: #### 2 75119 ####[facility],[address] [place] [address] 97132 XR CHEST 1 VIEWon 02-08-2023 XR CHEST [...] 02/08/2023 6:53:03 PM Ordering Provider: LIZ SY [facility] ([place]) HAND RT MIN 3 VIEWSon 2022 HAND RT MIN 3 VIEWS [place] [address] Patient: ROSARIO MCNALLY Phone#: : 1945 Age: 77 Gender: F Pt. Type: Out Account: [id number] Location: [facility] Ordering: ERIK CHRISTIE Exam Date: 01/26/2023/15:00 Family Phys: Charge Code: [id number] Physician: [place] Order #: [id number] Dose#: PROCEDURE: X-RAY HAND RT COMPLETE MIN [...] Simon MD on 01/26/2023 at 15:28 Normal [facility] CBC (INCLUDES DIFF/PLT)on Basophils (Bld) [#/Vol] 0.027 10*3/uL Normal 0-200 [facility] Comment on above: Performed By: #### 1 0231, 7232, 2070 #### [facility] [place] [address] [employer]: Brayden England MD Basophils/100 WBC (Bld) 0.4 % Normal [facility] Comment on above: Performed By: #### 1 0231, 0698, 2230 #### [facility] [place] [address] [employer]: Brayden England MD Eosinophils (Bld) [#/Vol] 0.168 10*3/uL Normal 15-500 [facility] Comment on above: Performed By: #### 1 0231, 5719, 2980 #### [facility] [place] [address] [employer]: Brayden England MD Eosinophils/100 WBC (Bld) 2.5 % Normal [facility] Comment on above: Performed By: #### 1 0231, 9255, 1330 #### [facility] [place] [address] [employer]: Brayden England MD Erythrocyte distribution width (RBC) [Ratio] 13.2 % Normal 11.0-15.0 [facility] Comment on above: Performed By: #### 1 0231, 63, 7600 #### [facility] of [place] [address] [employer]: Brayden England MD Hematocrit (Bld) [Volume fraction] 36.1 % Normal 35.0-45.0 [facility] Comment on above: Performed By: #### 1 0231, 6399, 7600 #### [facility] of [place] [address] [employer]: Brayden England MD Hemoglobin (Bld) [Mass/Vol] 11.0 g/dL Low 11.7-15.5 [facility] Comment on above: Performed By: #### 1 0231, 63, 7600 #### [facility] of [place] [address] [employer]: Brayden England MD Lymphocytes (Bld) [#/Vol] 1.467 10*3/uL Normal 850-3900 [facility] Comment on above: Performed By: #### 1 0231, 63, 7600 #### [facility] of [place] [address] [employer]: Brayden England MD Lymphocytes/100 WBC (Bld) 21.9 % Normal [facility] Comment on above: Performed By: #### 1 0231, 63, 7600 #### [facility] of [place] [address] [employer]: Brayden England MD MCH (RBC) [Entitic mass] 28.7 pg Normal 27.0-33.0 [facility] Comment on above: Performed By: #### 1 0231, 6399, 7600 #### [facility] of [place] [address] [employer]: Brayden England MD MCHC (RBC) [Mass/Vol] 30.5 g/dL Low 32.0-36.[address] [facility] Comment on above: Performed By: #### 1 0231, 6399, 7600 #### [facility] of [address], [address] [place] [id number] [employer]: Brayden England MD MCV (RBC) [Entitic vol] 94.3 fL Normal 80.0-100.0 [facility] Comment on above: Performed By: #### 1 0231, 6399, 7600 #### [facility] of [address], [address] [place] [address] [employer]: Brayden England MD Monocytes (Bld) [#/Vol] 0.583 10*3/uL Normal 200-950 [facility] Comment on above: Performed By: #### 1 0231, 63, 7600 #### [facility] of [address], [address] [place] [address] [employer]: Brayden England MD Monocytes/100 WBC (Bld) 8.7 % Normal [facility] Comment on above: Performed By: #### 1 0231, 63, 7600 #### [facility] of [address], [address] [place] [address] [employer]: Brayden England MD Neutrophils (Bld) [#/Vol] 4.456 10*3/uL Normal 9087-3927 [facility] Comment on above: Performed By: #### 1 0231, 6399, 7600 #### [facility] of [address], [address] [place] [address] [employer]: Brayden England MD Neutrophils/100 WBC (Bld) 66.5 % Normal [facility] Comment on above: Performed By: #### 1 0231, 6399, 7600 #### [facility] of [place] [address] [employer]: Brayden England MD Platelet mean volume (Bld) [Entitic vol] 10.7 fL Normal 7.5-12.5 [facility] Comment on above: Performed By: #### 1 0231, 6399, 7600 #### [facility] of [address], [address] [place] [address] [employer]: Brayden England MD Platelets (Bld) [#/Vol] 252 10*3/uL Normal 140-400 [facility] Comment on above: Performed By: #### 1 0231, 6399, 7600 #### [facility] of [address], [address] [place] [address] [employer]: Brayden England MD RBC (Bld) [#/Vol] 3.83 10*6/uL Normal 3.80-5.10 [facility] Comment on above: Performed By: #### 1 0231, 6399, 7600 #### [facility] of [place] [address] [employer]: Brayden England MD WBC (Bld) [#/Vol] 6.7 10*3/uL Normal 3.8-10.8 [facility] Comment on above: Performed By: #### 1 0231, 6399, 7600 #### [facility] of [address], [address] [place] [address] [employer]: Brayden England MD [facility] METABOLIC [facility] 12-28-2022 Albumin [Mass/Vol] 3.9 g/dL Normal 3.6-5.1 [facility] Comment on above: Performed By: #### 1 0231, 6399, 7600 #### [facility] of [place] [address] [employer]: Brayden England MD Albumin/Globulin [Mass ratio] 1.3 {ratio} Normal 1.0-2.5 [facility] Comment on above: Performed By: #### 1 0231, 6399, 7600 #### [facility] of [place] [address] [employer]: Brayden England MD ALP [Catalytic activity/Vol] 87 U/L Normal 37-153 [facility] Comment on above: Performed By: #### 1 0231, 6399, 7600 #### [facility] of [address] [place] [address] [employer]: Brayden England MD ALT [Catalytic activity/Vol] 8 U/L Normal 6-29 [facility] Comment on above: Performed By: #### 1 0231, 6399, 7600 #### [facility] of [address], [address] [place] [address] [employer]: Brayden England MD AST [Catalytic activity/Vol] 18 U/L Normal 10-35 [facility] Comment on above: Performed By: #### 1 0231, 63, 7600 #### [facility] of [address], [address] [place] [address] [employer]: Brayden England MD Bilirubin [Mass/Vol] 0.5 mg/dL Normal 0.2-1.2 [facility] Comment on above: Performed By: #### 1 023, 63, 7600 #### [facility] of [address], [address] [place] [address] [employer]: Brayden England MD BUN/CREATININE RATIO SEE NOTE: Normal 6-22 [facility] Comment on above: Result Comment: Not Reported: BUN and Creatinine are within reference range. Performed By: #### 1 0231, 63, 7600 #### [facility] of [address], [address] [place] [address] [employer]: Brayden England MD Calcium [Mass/Vol] 9.4 mg/dL Normal 8.6-10.4 [facility] Comment on above: Performed By: #### 1 0231, 6399, 7600 #### [facility] of [address], [address] [place] [address] [employer]: Brayden England MD Chloride [Moles/Vol] 104 mmol/L Normal 98-110 [facility] Comment on above: Performed By: #### 1 0231, 6399, 7600 #### [facility] of [address], [address] [place] [address] [employer]: Brayden England MD CO2 [Moles/Vol] 30 mmol/L Normal 20-32 [facility] Comment on above: Performed By: #### 1 0231, 63, 7600 #### [facility] [place] [address] [employer]: Brayden England MD Creatinine [Mass/Vol] 0.78 mg/dL Normal 0.60-1.[address] [facility] Comment on above: Performed By: #### 1 0231, 63, 7600 #### [facility] of [address], [address] [place] [address] [employer]: Brayden England MD GFR/1.73 sq M.predicted among non-blacks MDRD (S/P/Bld) [Vol rate/Area] 79 mL/min/{1.73_m2} Normal > OR = 60 [facility] Comment on above: Performed By: #### 1 023, 63, 7600 #### [facility] of [address], [address] [place] [address] [employer]: Brayden England MD Globulin (S) [Mass/Vol] 3.0 g/dL Normal 1.9-3.7 [facility] Comment on above: Performed By: #### 1 0231, 63, 7600 #### [facility] [place] [address] [employer]: Brayden England MD Glucose [Mass/Vol] 88 mg/dL Normal 65-99 [facility] Comment on above: Result Comment: Fasting reference interval Performed By: #### 1 0231, 63, 7600 #### [facility] of [address], [address] [place] [address] [employer]: Brayden England MD Potassium [Moles/Vol] 4.5 mmol/L Normal 3.5-5.[address] [facility] Comment on above: Performed By: #### 1 0231, 6399, 7600 #### [facility] [place] [address] [employer]: Brayden England MD Protein [Mass/Vol] 6.9 g/dL Normal 6.1-8.1 [facility] Comment on above: Performed By: #### 1 0231, 6399, 7600 #### [facility] of [place] [address] [employer]: Brayden England MD Sodium [Moles/Vol] 140 mmol/L Normal 135-146 [facility] Comment on above: Performed By: #### 1 0231, 6399, 7600 #### [facility] of [place] [address] [employer]: Brayden England MD Urea nitrogen [Mass/Vol] 19 mg/dL Normal 7-25 [facility] Comment on above: Performed By: #### 1 0231, 63, 7600 #### [facility] [place] [address] [employer]: Brayden England MD LIPID PANEL, [facility] 11-2 Cholesterol [Mass/Vol] 155 mg/dL Normal <200 [facility] Comment on above: Performed By: #### 1 0231, 6399, 7600 #### [facility] [place] [address] [employer]: Brayden England MD Cholesterol in HDL [Mass/Vol] 51 mg/dL Normal > OR = 50 [facility] Comment on above: Performed By: #### 1 0231, 6399, 7600 #### [facility] of [place] [address] [employer]: Brayden England MD Cholesterol in LDL [Mass/Vol] [...] equation in the estimation of LDL-C. Bhaskar SS et al. QUANG. 2013;310(19): 3230-7630 (http://education.Teespring.MyHealthTeams/faq/JJJ949) Performed By: #### 1 0231, 6399, 7600 #### [facility] of [address], [address] [place] [address] [employer]: Brayden England MD Cholesterol.total/Antonietta sterol in HDL [Mass ratio] 3.0 {ratio} Normal <5.0 [facility] Comment on above: Performed By: #### 1 0231, 6399, 7600 #### [facility] [address], [address] [place] [address] [employer]: Brayden England MD NON HDL CHOLESTEROL 104 mg/dL (calc) Normal <130 [facility] Comment on above: Result Comment: For patients with diabetes plus 1 major ASCVD risk factor, treating to a non-HDL-C goal of <100 mg/dL (LDL-C of <70 mg/dL) is considered a therapeutic option. Performed By: #### 1 0231, 6399, 7600 #### [facility] [address], [address] [place] [address] [employer]: Brayden England MD Triglyceride [Mass/Vol] 91 mg/dL Normal <150 [facility] Comment on above: Performed By: #### 1 0231, 6399, 3030 #### [facility] [address], [address] [place] [address] [employer]: Brayden England MD No Panel Informationon 12-27 155 mg/dL Normal [facility] 51 mg/dL Normal [facility] 91 mg/dL Normal [facility] 85 Normal [facility] 3.0 Normal 1.9 - 3.7 [facility] 104 Normal [facility] 88 mg/dL Normal 65 - 99 mg/dL [employer] [facility] [employer] [facility] [employer] 19 mg/dL Normal 7 - 25 mg/dL [facility] [employer] 0.78 mg/dL Normal 0.60 - 1.00 mg/dL [employer] [facility] [employer] 79 Normal [employer] [employer] SEE NOTE: Normal 6 - 22 [employer] [employer] 140 mmol/L Normal 135 - 146 mmol/L [employer] [employer] 4.5 mmol/L Normal 3.5 - 5.3 mmol/L [employer] [facility] [employer] 104 mmol/L Normal 98 - 110 mmol/L [employer] [employer] [employer] 30 mmol/L Normal 20 - 32 mmol/L [employer] 9.4 mg/dL Normal 8.6 - 10.4 mg/dL [employer] [employer] 6.9 g/dL Normal 6.1 - 8.1 g/dL [employer] [facility] [employer] 3.9 g/dL Normal 3.6 - 5.1 g/dL [employer] [facility] [employer] 1.3 Normal 1.0 - 2.5 [employer] 0.5 mg/dL Normal 0.2 - 1.2 mg/dL [employer] 87 U/L Normal 37 - 153 U/L [facility] [employer] [facility] [employer] 18 U/L Normal 10 - 35 U/L [employer] 8 U/L Normal 6 - 29 U/L [employer] 6.7 Normal 3.8 - 10.8 [employer] 3.83 {Million/uL} Normal 3.80 - 5.1 0 {Million/uL} [employer] 11.0 g/dL Abnormal 11.7 - 15.5 g/dL [employer] 36.1 % Normal 35.0 - 45.0 % [employer] 94.3 fL Normal 80.0 - 100.0 fL [employer] 28.7 pg Normal 27.0 - 33.0 pg [employer] 30.5 g/dL Abnormal 32.0 - 36.0 g/dL [employer] 13.2 % Normal 11.0 - 15.0 % [employer] 252 Normal 140 - 400 [employer] 10.7 fL Normal 7.5 - 12.5 fL [employer] 4456 {cells/uL} Normal 1500 - 7800 {cells/uL} [employer] 1467 {cells/uL} Normal 850 - 3900 {cells/uL} [employer] 583 {cells/uL} Normal 200 - 950 {cells/uL} [employer] 168 {cells/uL} Normal 15 - 500 {cells/uL} [employer] 27 {cells/uL} Normal 0 - 200 {cells/uL} [employer] 66.5 % Normal [employer] 21.9 % Normal [employer] 8.7 % Normal [employer] 2.5 % Normal [employer] 0.4 % Normal [employer] [facility], [facility]. EMERGENCY REPORTon 3 EMERGENCY REPORT [facility] EMERGENCY ROOM REPORT NAME ACCOUNT SEX AGE ADMIT DISCHARGE PT MED. RECORD# NUMBER DATE DATE TYPE DALI [id number] Lev 76 06/10/22 06/10/22 David Lopez [id number] ROOM: ER DATE OF : 1945 DICTATING [...] of 2 ROSARIO MCNALLY Emergency Room Report DALI ROSARIO Lopez : 1945 Dictated By: Stew So DO 08/07/22 14:39 JOB #: [id number] Transcribed By: jose 08/07/22 15:10 Electronically signed by: MODESTO So DO 08/16/22 21:25 Page 2 of 2 ROSARIO MCNALLY Emergency Room Report Normal [facility] CT BRAIN W/O CONTRASTon 05-0 CT BRAIN W/O CONTRAST [place] [address] Patient: ROSARIO MCNALLY. Phone#: : 1945 Age: 76 Gender: F Pt. Type: ER Account: [id number] Location: [facility] Ordering: DR. MARIA DEL CARMEN BLACKBURN Exam Date: 06/10/2022/21:04 Family Phys: CHCIO DANILOSRINIVAS Charge Code: [id number] Physician: [place] Order #: [id number] Dose#: 57.50 PROCEDURE: CT BRAIN WITHOUT CONTRAST COMPARISON: [facility], CT, BRAIN W/O CON, 04/24/2022, 10:47. [...] Simon MD on 06/10/2022 at 22:[address] [facility] [address] CERVICAL W/O CONTRASTon 0 06-10-2022 CT CERVICAL W/O CONTRAST [address] [address] Patient: ROSARIO MCNALLY Phone#: : 1945 Age: 76 Gender: F Pt. Type: ER Account: [id number] Location: 052 Ordering: DR. MARIA DEL CARMEN BLACKBURN Exam Date: 06/10/2022/21:04 Family Phys: CHICO CARRASCOSRINIVAS Charge Code: [id number] Physician: [place] Order #: [id number] Dose#: 7.20 PROCEDURE: CT CERVICAL WITHOUT CONTRAST COMPARISON: [facility], CT, CERVICAL W/O CON, 04/24/2022, 10:47. [...] no evidence of acute fracture or subluxation. [address] [address] Patient: ROSARIO MCNALLY Phone#: : 1945 Age: 76 Gender: F Pt. Type: ER Account: [id number] Location: 052 Ordering: DR. MARIA DEL CARMEN BLACKBURN Exam Date: 06/10/2022/21:04 Family Phys: CHICO COLLIER Charge Code: [id number] Physician: [place] Order #: [id number] Dose#: 7.20 Dictated by: Elisabeth Simon MD on 06/10/2022 at 22:04 Approved by: Elisabeth Simon MD on 06/10/2022 at 22:08 Normal [facility] 3D MAMM BILAT SCREENon 05-19 3D MAMM BILAT SCREEN [place] [id number] Patient: ROSARIO MCNALLY Phone#: : 1945 Age: 76 Gender: F Pt. Type: Out Account: [id number] Location: [facility] Ordering: CHICO COLLIER Exam Date: 05/19/2022/13:21 Family Phys: Charge Code: [id number] Physician: [place] Order #: [id number] Dose#: PROCEDURE: BILATERAL SCREENING BREAST TOMOSYNTHESIS MAMMOGRAM WITH CAD COMPARISON: [facility], BILAT SCREENING, 01/25/2020, 13:03. [facility], 3D BILAT SCREEN, 04/08/2021, 14:42. INDICATIONS: [...] Simon MD on 05/19/2022 at 13:43 Normal [facility] CV CAROTID STUDYon 3 CV CAROTID STUDY [place] [address] Patient: ROSARIO MCNALLY Phone#: : 1945 Age: 76 Gender: F Pt. Type: Out Account: [id number] Location: [facility] Ordering: CHICO COLLIER Exam Date: 05/19/2022/12:49 Family Phys: Charge Code: [id number] Physician: [place] Order #: [id number] Dose#: PROCEDURE: CAROTID FLOW STUDY COMPARISON: None. INDICATIONS: Frequent falls TECHNIQUE: Color duplex Doppler ultrasound and pulsed Doppler analysis were performed to evaluate the cervical carotid arteries and vertebral flow. All measurements for carotid artery narrowing or stenosis were obtained using the ipsilateral distal internal carotid artery as the reference value. DIAMOND SETTER: CAMILLE PT HISTORY: Frequent falls RIGHT IMAGING [...] 76 Gender: F Pt. Type: Out Account: [id number] Location: 052 Ordering: CHICO COLLIER Exam Date: 05/19/2022/12:49 Family Phys: Charge Code: [id number] Physician: [place] Order #: [id number] Dose#: Mid ICA: 57.39 cm/s Mid ICA [...] cm/s Subclavian Artery: 82.66 cm/s CONCLUSION: 1. Xrot-ud-nfxerbon irregular mixed plaque is present. 2. There is no evidence of hemodynamically significant stenosis. Dictated by: Elisabeth Simon MD on 05/19/2022 at 13:31 Approved by: Elisabeth Simon MD on 05/19/2022 at 13:33 Normal [facility] EMERGENCY REPORTon 3 EMERGENCY REPORT [facility] EMERGENCY ROOM REPORT NAME ACCOUNT SEX AGE ADMIT DISCHARGE PT MED. RECORD# NUMBER DATE DATE TYPE DALI [id number] F 76 04/24/22 04/24/22 3 ROSARIO Lopez [id number] ROOM: ER DATE OF : 1945 DICTATING [...] Stew So DO 04/26/22 20:17 JOB #: [id number] Transcribed By: am 04/27/22 08:59 Electronically signed by: MODESTO So DO 05/04/22 08:19 Page 1 of 1 ROSARIO MCNALLY Emergency Room Report Normal [facility] EMERGENCY REPORTon 3 EMERGENCY REPORT [facility] EMERGENCY ROOM REPORT NAME ACCOUNT SEX AGE ADMIT DISCHARGE PT MED. RECORD# NUMBER DATE DATE TYPE DALI [id number] F 76 04/24/22 04/24/22 3 ROSARIO Lopez [id number] ROOM: ER DATE OF : 1945 DICTATING [...] answering questions appropriately, has normal speech, intact kpcsak-mo-isuj bilaterally. Sensation is intact to bilateral upper [...] Matilde Veronica MD 04/24/22 12:26 JOB #: [id number] Transcribed By: ameena 04/24/22 21:53 Electronically signed by: Dr. Matilde Veronica MD 04/26/22 02:46 Page 2 of 2 ROSARIO MCNALLY Emergency Room Report Normal [facility] CHEST 1 VIEWon 04-24-2022 CHEST 1 VIEW [place] [address] Patient: ROSARIO MCNALLY. Phone#: : 1945 Age: 76 Gender: F Pt. Type: ER Account: [id number] Location: [facility] Ordering: DR. MATILDE VERONICA Exam Date: 04/24/2022/11:09 Family Phys: CHICO COLLIER Charge Code: [id number] Physician: [place] Order #: [id number] Dose#: PROCEDURE: X-RAY CHEST 1 VIEW COMPARISON: [facility], XR, CHEST PA/LAT, 02/20/2016, 12:12. INDICATIONS: [...] Simon MD on 04/24/2022 at 13:[address] [facility] [address] BRAIN W/O CONTRASTon 03-1 CT BRAIN W/O CONTRAST [address] [address] Patient: ROSARIO MCNALLY Phone#: : 1945 Age: 76 Gender: F Pt. Type: ER Account: [id number] Location: 2 Ordering: DR. MATILDE VERONICA Exam Date: 04/24/2022/10:47 Family Phys: CHICO COLLIER Charge Code: [id number] Physician: [place] Order #: [id number] Dose#: PROCEDURE: CT BRAIN WITHOUT CONTRAST COMPARISON: [...] Simon MD on 04/24/2022 at 13:[address] [facility] [address] CERVICAL W/O CONTRASTon 0 04-24-2022 CT CERVICAL W/O CONTRAST [address] [address] Patient: ROSARIO MCNALLY Phone#: : 1945 Age: 76 Gender: F Pt. Type: ER Account: [id number] Location: 052 Ordering: DR. MATILDE VERONICA Exam Date: 04/24/2022/10:47 Family Phys: CHICO COLLIER Charge Code: [id number] Physician: [place] Order #: [id number] Dose#: PROCEDURE: CT CERVICAL WITHOUT CONTRAST COMPARISON: [...] no evidence of acute fracture or subluxation. [place] [address] Patient: ROSARIO MCNALLY Phone#: : 1945 Age: 76 Gender: F Pt. Type: ER Account: [id number] Location: 052 Ordering: DR. MATILDE VERONICA Exam Date: 04/24/2022/10:47 Family Phys: CHICO COLLIER Charge Code: [id number] Physician: [place] Order #: [id number] Dose#: Dictated by: Elisabeth Simon MD on 04/24/2022 at 13:18 Approved by: Elisabeth Simon MD on 04/24/2022 at 13:[address] [facility] [address] FACIAL BONES W/O CONTRAST on 04-24-2022 CT FACIAL BONES W/O CONTRAST [place] [address] Patient: ROSARIO MCNALLY Phone#: : 1945 Age: 76 Gender: F Pt. Type: ER Account: [id number] Location: [facility] Ordering: DR. MATILDE VERONICA Exam Date: 04/24/2022/10:47 Family Phys: CHICO COLLIER Charge Code: [id number] Physician: [place] Order #: [id number] Dose#: PROCEDURE: CT FACIAL BONES WITHOUT CONTRAST [...] 76 Gender: F Pt. Type: ER Account: [id number] Location: 052 Ordering: DR. MATILDE VERONICA Exam Date: 04/24/2022/10:47 Family Phys: CHICO COLLIER Charge Code: [id number] Physician: [place] Order #: [id number] Dose#: Approved by: Elisabeth Simon MD on 04/24/2022 at 13:18 Normal [facility] PELVIS 1 or 2 VIEWSon 2022 PELVIS 1 or 2 VIEWS [place] [address] Patient: ROSARIO MCNALLY Phone#: : 1945 Age: 76 Gender: F Pt. Type: ER Account: [id number] Location: 052 Ordering: DR. MATILDE VERONICA Exam Date: 04/24/2022/11:10 Family Phys: CHICO COLLIER Charge Code: [id number] Physician: [place] Order #: [id number] Dose#: PROCEDURE: X-RAY PELVIS AP COMPARISON: [facility], XR, PELVIS AP, 09/15/2011, 6:52. INDICATIONS: [...] Simon MD on 04/24/2022 at 13:32 Normal [facility] No Panel Informationon 12-28 140 mg/dL Normal [facility] [employer] 53 mg/dL Normal [employer] [facility], Inc.; [employer]. 82 mg/dL Normal [employer] [facility], Inc.; [employer] 71 Normal [employer], [employer].; [employer] 2.6 Normal [facility], Inc.; [employer], [employer] 87 Normal [employer], [employer].; [employer], [employer]. 85 mg/dL Normal 65 - 99 mg/dL [employer] [facility], Inc.; [employer], [employer] 18 mg/dL Normal 7 - 25 mg/dL [facility], Inc.; [employer], [employer] 0.71 mg/dL Normal 0.60 - 1.00 mg/dL [employer] [facility], Inc.; [employer], [employer] 89 Normal [employer] [facility], Inc.; [employer], [employer]. NOT APPLICABLE Normal 6 - 22 [facility], Inc.; [employer], [employer] 141 mmol/L Normal 135 - 146 mmol/L [employer] [facility], Inc.; [employer], [employer] 4.4 mmol/L Normal 3.5 - 5.3 mmol/L [employer] [facility], Inc.; [employer], [employer] 104 mmol/L Normal 98 - 110 mmol/L [employer] [facility], Inc.; [employer], [employer] 32 mmol/L Normal 20 - 32 mmol/L [employer], [employer] 9.5 mg/dL Normal 8.6 - 10.4 mg/dL [employer] [facility], Inc.; [employer] 6.8 g/dL Normal 6.1 - 8.1 g/dL [employer] [facility], Inc.; [employer] 4.0 g/dL Normal 3.6 - 5.1 g/dL [employer], [employer].; [employer] 2.8 Normal 1.9 - 3.7 [employer], [employer].; [employer] 1.4 Normal 1.0 - 2.5 [employer], [employer].; [employer], [employer] 0.6 mg/dL Normal 0.2 - 1.2 mg/dL [facility], Inc.; [employer], [employer] 167 U/L Abnormal 37 - 153 U/L [facility], [facility].; [facility], Inc[employer] 14 U/L Normal 10 - 35 U/L [facility], Inc.; [facility], Inc[employer] 4 U/L Abnormal 6 - 29 U/L [facility], Inc.; [facility], Inc[employer] 7.5 Normal 3.8 - 10.8 [facility], Inc.; [employer], [employer] 3.51 {Million/uL} Abnormal 3.80 - 5.1 0 {Million/uL} [facility], Inc.; [employer] [facility], Inc. 10.4 g/dL Abnormal 11.7 - 15.5 g/dL [facility], [facility].; [employer], [employer] 32.5 % Abnormal 35.0 - 45.0 % [facility], Inc.; [facility] [employer] 92.6 fL Normal 80.0 - 100.0 fL [facility], Inc.; [employer] [facility], Inc. 29.6 pg Normal 27.0 - 33.0 pg [employer] [facility], [facility].; [employer] [facility], Inc. 32.0 g/dL Normal 32.0 - 36.0 g/dL [facility], [facility].; [employer], [employer] 13.1 % Normal 11.0 - 15.0 % [facility], Inc.; [employer], [employer] 254 Normal 140 - 400 [facility], [facility].; [employer], [employer] 10.9 fL Normal 7.5 - 12.5 fL [employer], [employer].; [employer], [employer] 5475 {cells/uL} Normal 1500 - 7800 {cells/uL} [employer], [employer].; [employer], [employer] 1193 {cells/uL} Normal 850 - 3900 {cells/uL} [employer], [employer].; [employer], [employer] 690 {cells/uL} Normal 200 - 950 {cells/uL} [employer], [employer].; [employer], [employer] 90 {cells/uL} Normal 15 - 500 {cells/uL} [employer] 53 {cells/uL} Normal 0 - 200 {cells/uL} [employer] 73 % Normal [employer] 15.9 % Normal [employer] 9.2 % Normal [employer] 1.2 % Normal [employer] 0.7 % Normal [employer], [employer], [employer] No Panel Informationon 01-05 146 mg/dL Normal [employer] 56 mg/dL Normal [employer] 67 mg/dL Normal [employer] 76 Normal [employer] 2.6 Normal [employer] 90 Normal [employer] 92 mg/dL Normal 65 - 99 mg/dL [employer] 15 mg/dL Normal 7 - 25 mg/dL [facility] [facility] [employer], [employer] 0.72 mg/dL Normal 0.60 - 0.93 mg/dL [employer] 82 Normal [employer] 96 Normal [employer], [employer]. NOT APPLICABLE Normal 6 - 22 [facility] [employer], [employer] 138 mmol/L Normal 135 - 146 mmol/L [employer], [employer] 4.3 mmol/L Normal 3.5 - 5.3 mmol/L [employer] 102 mmol/L Normal 98 - 110 mmol/L [employer] 29 mmol/L Normal 20 - 32 mmol/L [facility], Inc.; [facility], Inc[employer] 9.5 mg/dL Normal 8.6 - 10.4 mg/dL [facility], Inc.; [facility] 7.2 g/dL Normal 6.1 - 8.1 g/dL [facility], Inc.; [facility] [employer] 3.8 g/dL Normal 3.6 - 5.1 g/dL [facility], Inc.; [facility], Inc[employer] 3.4 Normal 1.9 - 3.7 [facility], Inc.; [facility], Inc[employer] 1.1 Normal 1.0 - 2.5 [facility], Inc.; [facility], Inc[employer] 0.6 mg/dL Normal 0.2 - 1.2 mg/dL [facility], Inc.; [facility], Inc[employer] 80 U/L Normal 37 - 153 U/L [facility], [facility].; [facility], [employer] 15 U/L Normal 10 - 35 U/L [facility], Inc.; [facility], Inc[employer] 7 U/L Normal 6 - 29 U/L [facility], Inc.; [facility], Inc[employer] 8.8 Normal 3.8 - 10.8 [facility], Inc.; [facility], Inc[employer] 3.91 {Million/uL} Normal 3.80 - 5.1 0 {Million/uL} [facility], Inc.; [facility] 11.3 g/dL Abnormal 11.7 - 15.5 g/dL [facility], Inc.; [employer] 34.9 % Abnormal 35.0 - 45.0 % [facility], Inc.; [employer] 89.3 fL Normal 80.0 - 100.0 fL [facility], Inc.; [facility] 28.9 pg Normal 27.0 - 33.0 pg [facility], Inc.; [employer] 32.4 g/dL Normal 32.0 - 36.0 g/dL [facility], Inc.; [employer], [employer] 13.0 % Normal 11.0 - 15.0 % [employer] 314 Normal 140 - 400 [employer] 10.5 fL Normal 7.5 - 12.5 fL [employer] 6160 {cells/uL} Normal 1500 - 7800 {cells/uL} [employer] 1857 {cells/uL} Normal 850 - 3900 {cells/uL} [employer] 686 {cells/uL} Normal 200 - 950 {cells/uL} [employer] 53 {cells/uL} Normal 15 - 500 {cells/uL} [employer] 44 {cells/uL} Normal 0 - 200 {cells/uL} [employer] 70 % Normal [employer].; [employer] 21.1 % Normal [employer].; [employer] 7.8 % Normal [employer].; [employer] 0.6 % Normal [employer].; [employer] 0.5 % Normal [employer].; [employer] 2.63 {mIU/L} Normal 0.40 - 4.50 {mIU/L} [employer], [employer] No Panel Informationon 07-28 SEE NOTE Normal [employer] BIOPSY Normal [employer], [employer]. No Panel Informationon 12-23 168 mg/dL Normal [employer] 59 mg/dL Normal [employer], [employer] 89 mg/dL Normal [employer] 91 Normal [employer].; [employer] 2.8 Normal 1.9 - 3.7 [employer].; [employer], [employer] 109 Normal [facility].; [employer], [employer] 92 mg/dL Normal 65 - 99 mg/dL [facility], Inc.; [facility] 20 mg/dL Normal 7 - 25 mg/dL [facility], Inc.; [employer] 0.82 mg/dL Normal 0.60 - 0.93 mg/dL [facility], Inc.; [employer] 71 Normal [employer] [facility], Inc.; [employer] 82 Normal [facility], Inc.; [employer] [facility], Inc. NOT APPLICABLE Normal 6 - 22 [facility], Inc.; [employer] 140 mmol/L Normal 135 - 146 mmol/L [facility], Inc.; [employer] 4.2 mmol/L Normal 3.5 - 5.3 mmol/L [facility], Inc.; [employer] 102 mmol/L Normal 98 - 110 mmol/L [facility], Inc.; [employer], [employer] 31 mmol/L Normal 20 - 32 mmol/L [facility], Inc.; [employer] 10.0 mg/dL Normal 8.6 - 10.4 mg/dL [employer] [facility], Inc.; [employer] 7.2 g/dL Normal 6.1 - 8.1 g/dL [facility], Inc.; [employer] 4.4 g/dL Normal 3.6 - 5.1 g/dL [facility], Inc.; [employer] 1.6 Normal 1.0 - 2.5 [employer] [facility], Inc.; [employer] 0.8 mg/dL Normal 0.2 - 1.2 mg/dL [facility], Inc.; [employer] 80 U/L Normal 37 - 153 U/L [facility], Inc.; [employer], [employer] 17 U/L Normal 10 - 35 U/L [facility], Inc.; [employer], [employer] 6 U/L Normal 6 - 29 U/L [employer], Inc.; [employer], [employer] 9.5 Normal 3.8 - 10.8 [employer], [employer].; [employer] 4.08 {Million/uL} Normal 3.80 - 5.1 0 {Million/uL} [employer] 12.4 g/dL Normal 11.7 - 15.5 g/dL [employer], [employer].; [employer], [employer] 37.1 % Normal 35.0 - 45.0 % [employer], [employer].; [employer] 90.9 fL Normal 80.0 - 100.0 fL [employer], [employer].; [employer] 30.4 pg Normal 27.0 - 33.0 pg [employer], [employer].; [employer] 33.4 g/dL Normal 32.0 - 36.0 g/dL [employer], [employer].; [employer] 12.7 % Normal 11.0 - 15.0 % [employer], [employer].; [employer], [employer] 288 Normal 140 - 400 [employer], [employer].; [employer], [employer] 10.7 fL Normal 7.5 - 12.5 fL [employer] 6698 {cells/uL} Normal 1500 - 7800 {cells/uL} [employer], [employer], [employer] 1900 {cells/uL} Normal 850 - 3900 {cells/uL} [employer], [employer] 684 {cells/uL} Normal 200 - 950 {cells/uL} [employer] 152 {cells/uL} Normal 15 - 500 {cells/uL} [employer], [employer] 67 {cells/uL} Normal 0 - 200 {cells/uL} [employer], [employer], [employer] 70.5 % Normal [employer].; [employer] 20.0 % Normal [employer].; [employer], [employer] 7.2 % Normal [facility].; [employer]. 1.6 % Normal [facility].; [employer] 0.7 % Normal [facility] [employer].; [employer] [facility] - Chemistry and C hemistry - challengeon 12-22-2018 Albumin [Mass/Vol] 4.4 g/dL Normal 3.6 - 5.1 g/dL [facility].; [employer] [facility]. Albumin/Globulin [Mass ratio] 1.6 {ratio} Normal 1.0 - 2.5 [facility].; [employer]. ALP [Catalytic activity/Vol] 79 U/L Normal 33 - 130 U/L [facility].; [employer] [facility]. ALT [Catalytic activity/Vol] 4 U/L Abnormal 6 - 29 U/L [facility].; [employer], [employer]. AST [Catalytic activity/Vol] 15 U/L Normal 10 - 35 U/L [facility].; [employer]. Bilirubin [Mass/Vol] 0.8 mg/dL Normal 0.2 - 1 .2 mg/dL [facility].; [employer]. Calcium [Mass/Vol] 9.8 mg/dL Normal 8.6 - 10. 4 mg/dL [facility].; [employer] [facility]. Chloride [Moles/Vol] 103 mmol/L Normal 98 - 11 0 mmol/L [facility].; [employer]. Cholesterol [Mass/Vol] 160 mg/dL Normal [facility].; [employer] [facility]. Cholesterol in HDL [Mass/Vol] 62 mg/dL Normal [employer] [facility].; [employer]. Cholesterol in LDL [Mass/Vol] 82 mg/dL Normal 0 - 100 mg/dL [employer] [facility].; [employer], [employer]. Cholesterol non HDL [Mass/Vol] 98 mg/dL Normal [employer] [facility].; [employer], [employer]. Cholesterol.total/Antonietta sterol in HDL [Mass ratio] 2.6 {ratio} Normal [facility].; [employer] [facility]. CO2 [Moles/Vol] 32 mmol/L Normal 20 - 32 mmol/L [facility].; [employer], [employer]. Creatinine [Mass/Vol] 0.74 mg/dL Normal 0.60 - 0.93 mg/dL [facility], [facility].; [employer] [facility], [facility]. GFR/1.73 sq M.predicted among blacks MDRD (S/P/Bld) [Vol rate/Area] 94 {ML/MIN/1.73M2} Normal [facility].; [employer] [facility], [facility]. GFR/1.73 sq M.predicted MDRD (S/P/Bld) [Vol rate/Area] 81 {ML/MIN/1.73M2} Normal [employer] [facility].; [employer], [employer]. Globulin (S) [Mass/Vol] 2.8 g/dL Normal 1.9 - 3.7 g/dL [facility].; [employer], [employer]. Glucose [Mass/Vol] 94 mg/dL Normal 65 - 99 mg/dL [facility].; [employer], [facility]. Potassium [Moles/Vol] 4.0 mmol/L Normal 3.5 - 5.3 mmol/L [facility].; [employer], [employer]. Protein [Mass/Vol] 7.2 g/dL Normal 6.1 - 8.1 g/dL [facility], [facility].; [employer], [employer]. Sodium [Moles/Vol] 141 mmol/L Normal 135 - 146 mmol/L [facility].; [employer], [employer]. Triglyceride [Mass/Vol] 77 mg/dL Normal [facility].; [employer], [facility]. Urea nitrogen [Mass/Vol] 15 mg/dL Normal 7 - 25 mg/dL [employer] [facility].; [employer], [employer]. Urea nitrogen/Creatinine [Mass ratio] 19.7 mg/mg Normal 6 - 22 [facility].; [employer], [employer]. Laboratory - Hematology and Cell countson 12-22-2018 Basophils (Bld) [#/Vol] 60 {Cells}/uL Normal 0 - 200 {Cells}/uL [facility] [employer], [employer]. Basophils/100 WBC (Bld) 0.7 % Normal 0 - 1 % [facility].; [employer], [employer]. Eosinophils (Bld) [#/Vol] 140 {Cells}/uL Normal 15 - 500 {Cells}/uL [employer].; [employer] Eosinophils/100 WBC (Bld) 1.7 % Normal 0 - 4 % [employer].; [employer], [employer]. Erythrocyte distribution width (RBC) [Ratio] 12.9 % Normal 11.0 - 15.0 % [employer], [employer].; [employer], [employer]. Hematocrit (Bld) [Volume fraction] 37.8 % Normal 35.0 - 45.0 % [employer], [employer].; [employer], [employer]. Hemoglobin (Bld) [Mass/Vol] 12.3 g/dL Normal 11.7 - 15.5 g/dL [employer].; [employer], [employer]. Lymphocytes (Bld) [#/Vol] 2040 {Cells}/uL Normal 850 - 3900 {Cells}/uL [employer].; [employer], [employer]. Lymphocytes/100 WBC (Bld) 25.0 % Normal 12 - 47 % [employer].; [employer], [employer]. MCH (RBC) [Entitic mass] 30.1 pg Normal 27.0 - 33.0 PG [employer].; [employer], [employer]. MCHC (RBC) [Mass/Vol] 32.5 g/dL Normal 32.0 - 36.0 g/dL [employer].; [employer], [employer]. MCV (RBC) [Entitic vol] 92.6 fL Normal 80.0 - 100.0 fL [employer].; [employer], [employer]. Monocytes (Bld) [#/Vol] 630 {Cells}/uL Normal 20 0 - 950 {Cells}/uL [employer], [employer].; [employer] Monocytes/100 WBC (Bld) 7.7 % Normal 4 - 12 % [facility] [employer].; [employer], [facility]. Neutrophils (Bld) [#/Vol] 5260 {Cells}/uL Normal 1500 - 7800 {Cells}/uL [facility].; [facility] Neutrophils/100 WBC (Bld) 64.9 % Normal 40 - 75 % [facility].; [employer] [facility], [facility]. Platelet mean volume (Bld) [Entitic vol] 10.7 fL Normal 7.5 - 12.5 fL [facility].; [facility] [employer], [facility] Platelets (Bld) [#/Vol] 264 10*3/uL Normal 140 - 400 10*3/uL [facility].; [employer], [facility]. RBC (Bld) [#/Vol] 4.08 10*6/uL Normal 3.80 - 5.1 0 10*6/uL [facility].; [employer], [facility] WBC (Bld) [#/Vol] 8.2 10*3/uL Normal 3.8 - 10.8 10*3/uL [facility].; [employer]. Laboratory - Chemistry and C hemistry - challengeon 12-14-2017 Calcium [Mass/Vol] 10.0 mg/dL Normal 8.6 - 10. 4 mg/dL [facility].; [employer], [facility]. Chloride [Moles/Vol] 104 mmol/L Normal 98 - 11 0 mmol/L [facility].; [employer], [facility]. Cholesterol [Mass/Vol] 151 mg/dL Normal [facility].; [employer], [facility]. Cholesterol in HDL [Mass/Vol] 62 mg/dL Normal [facility].; [employer], [facility]. Cholesterol in LDL [Mass/Vol] 75 mg/dL Normal 0 - 100 mg/dL [facility].; [employer], [employer]. Cholesterol non HDL [Mass/Vol] 89 mg/dL Normal [facility].; [employer], [facility]. Cholesterol.total/Antonietta sterol in HDL [Mass ratio] 2.4 {ratio} Normal [facility].; [employer] CO2 [Moles/Vol] 30 mmol/L Normal 20 - 32 mmol/L [facility].; [employer] [facility] HospitalHyper[facility]. Creatinine [Mass/Vol] 0.75 mg/dL Normal 0.60 - 0.93 mg/dL [facility].; [facility], [facility]. GFR/1.73 sq M.predicted among blacks MDRD (S/P/Bld) [Vol rate/Area] 93 {ML/MIN/1.73M2} Normal [facility].; [facility], [facility]. GFR/1.73 sq M.predicted MDRD (S/P/Bld) [Vol rate/Area] 80 {ML/MIN/1.73M2} Normal [facility].; [employer] [facility], [facility]. Glucose [Mass/Vol] 92 mg/dL Normal 65 - 99 mg/dL [facility], [facility].; [employer], [facility]. Potassium [Moles/Vol] 4.3 mmol/L Normal 3.5 - 5.3 mmol/L [facility].; [employer], [employer]. Sodium [Moles/Vol] 141 mmol/L Normal 135 - 146 mmol/L [facility].; [employer], [employer]. Triglyceride [Mass/Vol] 62 mg/dL Normal H [facility].; [employer] [facility], [facility]. TSH Qn 2.12 m[IU]/L Normal 0.40 - 4.50 {mIU/L} [employer] [facility], [facility].; [employer], [facility]. Urea nitrogen [Mass/Vol] 16 mg/dL Normal 7 - 25 mg/dL [employer] [facility] HospitalHyper[facility].; [employer], [employer]. Urea nitrogen/Creatinine [Mass ratio] 21.9 mg/mg Normal 6 - 22 [employer] [facility] HospitalHyper[facility].; [employer], [employer]. Laboratory - Hematology and Cell countson 12-14-2017 Basophils (Bld) [#/Vol] 40 {Cells}/uL Normal 0 - 200 {Cells}/uL [facility] [employer] [facility].; [employer], [employer]. Basophils/100 WBC (Bld) 1 % Normal 0 - 1 % [facility].; [employer], [employer]. Eosinophils (Bld) [#/Vol] 210 {Cells}/uL Normal 15 - 500 {Cells}/uL [facility] [employer].; [employer]. Eosinophils/100 WBC (Bld) 3 % Normal 0 - 4 % [employer].; [employer], [employer]. Erythrocyte distribution width (RBC) [Ratio] 14.3 % Normal 11.0 - 15.0 % [employer].; [employer], [employer]. Hematocrit (Bld) [Volume fraction] 36.0 % Normal 35.0 - 45.0 % [employer].; [employer], [employer]. Hemoglobin (Bld) [Mass/Vol] 11.9 g/dL Normal 11.7 - 15.5 g/dL [employer].; [employer], [employer]. Lymphocytes (Bld) [#/Vol] 1890 {Cells}/uL Normal 850 - 3900 {Cells}/uL [employer], [employer].; [employer], [employer]. Lymphocytes/100 WBC (Bld) 27 % Normal 12 - 47 % [employer].; [employer], [employer]. MCH (RBC) [Entitic mass] 30.2 pg Normal 27.0 - 33.0 PG [employer].; [employer], [employer]. MCHC (RBC) [Mass/Vol] 32.9 g/dL Normal 32.0 - 36.0 g/dL [employer].; [employer] MCV (RBC) [Entitic vol] 91.6 fL Normal 80.0 - 100.0 fL [employer].; [employer], [employer]. Monocytes (Bld) [#/Vol] 610 {Cells}/uL Normal 20 0 - 950 {Cells}/uL [employer].; [employer] Monocytes/100 WBC (Bld) 9 % Normal 4 - 12 % [facility].; [employer], [facility]. Neutrophils (Bld) [#/Vol] 4250 {Cells}/uL Normal 1500 - 7800 {Cells}/uL [employer], [employer].; [employer] Neutrophils/100 WBC (Bld) 61 % Normal 40 - 75 % [employer].; [facility], [facility]. Platelet mean volume (Bld) [Entitic vol] 8.9 fL Normal 7.5 - 12.5 fL [facility].; [facility], [facility] Platelets (Bld) [#/Vol] 241 10*3/uL Normal 140 - 400 10*3/uL [facility], [facility].; [facility], [facility] RBC (Bld) [#/Vol] 3.93 10*6/uL Normal 3.80 - 5.1 0 10*6/uL [facility].; [facility], [facility]. WBC (Bld) [#/Vol] 7.0 10*3/uL Normal 3.8 - 10.8 10*3/uL [facility].; [facility], [facility]. Laboratory - Cytologyon 08-08 Microscopic observation Cyto stain Nom (Cvx) Normal [facility].; [facility], [facility] Laboratory - Chemistry and C hemistry - challengeon 12-22-2016 Hemoglobin.gastrointest inal Ql (Stl) Negative Normal [facility].; [employer], [facility]. Laboratory - Chemistry and C hemistry - challengeon 12-13-2016 Calcium [Mass/Vol] 9.7 mg/dL Normal 8.6 - 10. 4 mg/dL [facility], [facility].; [facility] [employer], [facility]. Chloride [Moles/Vol] 103 mmol/L Normal 98 - 11 0 mmol/L [facility], [facility].; [facility], [facility]. Cholesterol [Mass/Vol] 172 mg/dL Normal [facility].; [facility], [facility]. Cholesterol in HDL [Mass/Vol] 58 mg/dL Normal [facility], [facility].; [facility] [employer], [facility]. Cholesterol in LDL [Mass/Vol] 95 mg/dL Normal 0 - 100 mg/dL [facility].; [facility], [facility]. Cholesterol non HDL [Mass/Vol] 113 mg/dL Normal [facility], [facility].; [facility], [facility]. Cholesterol.total/Antonietta sterol in HDL [Mass ratio] 3.0 {ratio} Normal [facility].; [facility] [employer] CO2 [Moles/Vol] 33 mmol/L Abnormal 20 - 31 mmol/L [facility], [facility].; [employer] [facility], [facility]. Creatinine [Mass/Vol] 0.75 mg/dL Normal 0.60 - 0.93 mg/dL [facility].; [employer] [facility], [facility]. GFR/1.73 sq M.predicted among blacks MDRD (S/P/Bld) [Vol rate/Area] 94 {ML/MIN/1.73M2} Normal [facility].; [facility], [facility]. GFR/1.73 sq M.predicted MDRD (S/P/Bld) [Vol rate/Area] 81 {ML/MIN/1.73M2} Normal [facility].; [employer] [facility], [facility]. Glucose [Mass/Vol] 95 mg/dL Normal 65 - 99 mg/dL [facility].; [employer] [facility], [facility]. Potassium [Moles/Vol] 4.3 mmol/L Normal 3.5 - 5.3 mmol/L [facility].; [employer], [facility]. Sodium [Moles/Vol] 142 mmol/L Normal 135 - 146 mmol/L [facility].; [employer] [facility], [facility]. Triglyceride [Mass/Vol] 93 mg/dL Normal [facility].; [employer] [facility], [facility]. TSH Qn 3.16 m[IU]/L Normal 0.40 - 4.50 {mIU/L} [facility].; [employer] [facility], [facility]. Urea nitrogen [Mass/Vol] 12 mg/dL Normal 7 - 25 mg/dL [facility].; [employer], [facility]. Urea nitrogen/Creatinine [Mass ratio] 16.1 mg/mg Normal 6 - 22 [facility].; [employer], [employer]. Laboratory - Hematology and Cell countson 12-13-2016 Basophils (Bld) [#/Vol] 10 {Cells}/uL Normal 0 - 200 {Cells}/uL [facility].; [employer], [employer]. Basophils/100 WBC (Bld) 0 % Normal 0 - 1 % [facility].; [employer] [facility], Inc. Eosinophils (Bld) [#/Vol] 210 {Cells}/uL Normal 15 - 500 {Cells}/uL [facility].; [facility]. Eosinophils/100 WBC (Bld) 3 % Normal 0 - 4 % [facility].; [facility], [facility]. Erythrocyte distribution width (RBC) [Ratio] 13.4 % Normal 11.0 - 15.0 % [facility], [facility].; [facility], [facility] Hematocrit (Bld) [Volume fraction] 38.0 % Normal 35.0 - 45.0 % [facility], [facility].; [facility], [facility] Hemoglobin (Bld) [Mass/Vol] 12.2 g/dL Normal 11.7 - 15.5 g/dL [facility].; [facility], [facility] Lymphocytes (Bld) [#/Vol] 1830 {Cells}/uL Normal 850 - 3900 {Cells}/uL [facility].; [facility], [facility] Lymphocytes/100 WBC (Bld) 27 % Normal 12 - 47 % [facility].; [employer] [facility], [facility]. MCH (RBC) [Entitic mass] 29.5 pg Normal 27.0 - 33.0 PG [facility].; [employer] [facility], [facility]. MCHC (RBC) [Mass/Vol] 32.3 g/dL Normal 32.0 - 36.0 g/dL [facility], [facility].; [employer] [facility], [facility]. MCV (RBC) [Entitic vol] 91.3 fL Normal 80.0 - 100.0 fL [facility].; [facility], [facility]. Monocytes (Bld) [#/Vol] 310 {Cells}/uL Normal 20 0 - 950 {Cells}/uL [facility], [facility].; [employer], [facility]. Monocytes/100 WBC (Bld) 5 % Normal 4 - 12 % [facility].; [facility], [facility]. Neutrophils (Bld) [#/Vol] 4310 {Cells}/uL Normal 1500 - 7800 {Cells}/uL [facility], [facility].; [employer], [facility]. Neutrophils/100 WBC (Bld) 65 % Normal 40 - 75 % [facility].; [employer], [employer]. Platelet mean volume (Bld) [Entitic vol] 8.8 fL Normal 7.5 - 12.5 fL [employer].; [employer], [employer]. Platelets (Bld) [#/Vol] 246 10*3/uL Normal 140 - 400 10*3/uL [employer], [employer]. RBC (Bld) [#/Vol] 4.16 10*6/uL Normal 3.80 - 5.1 0 10*6/uL [employer].; [employer], [employer]. WBC (Bld) [#/Vol] 6.7 10*3/uL Normal 3.8 - 10.8 10*3/uL [employer], [employer].; [employer], [employer]. Laboratory - Chemistry and C hemistry - challengeon 12-22-2015 Hemoglobin.gastrointest inal Ql (Stl) Negative Normal [employer].; [employer], [employer]. Laboratory - Chemistry and C hemistry - challengeon 12-03-2015 Calcium [Mass/Vol] 9.9 mg/dL Normal 8.6 - 10. 4 mg/dL [employer], [employer].; [employer], [employer]. Chloride [Moles/Vol] 104 mmol/L Normal 98 - 11 0 mmol/L [employer] [facility].; [employer] Cholesterol [Mass/Vol] 156 mg/dL Normal 125 - 200 mg/dL [employer], [employer].; [employer], [employer]. Cholesterol in HDL [Mass/Vol] 50 mg/dL Normal [employer] [facility].; [employer], [employer]. Cholesterol in LDL [Mass/Vol] 88 mg/dL Normal [employer].; [employer], [employer]. Cholesterol non HDL [Mass/Vol] 106 mg/dL Normal [employer], [employer].; [employer], [employer]. Cholesterol.total/Antonietta sterol in HDL [Mass ratio] 3.1 {ratio} Normal [employer].; [employer], [employer]. CO2 [Moles/Vol] 30 mmol/L Normal 20 - 31 mmol/L [employer] [facility].; [employer], [employer]. Creatinine [Mass/Vol] 0.77 mg/dL Normal 0.50 - 0.99 mg/dL [employer], [facility].; [employer], [facility]. GFR/1.73 sq M.predicted among blacks MDRD (S/P/Bld) [Vol rate/Area] 92 {ML/MIN/1.73M2} Normal [employer], [facility].; [employer] [facility], [facility]. GFR/1.73 sq M.predicted MDRD (S/P/Bld) [Vol rate/Area] 79 {ML/MIN/1.73M2} Normal [employer], [facility].; [employer], [employer]. Glucose [Mass/Vol] 95 mg/dL Normal 65 - 99 mg/dL [employer], [facility].; [employer], [employer]. Potassium [Moles/Vol] 3.9 mmol/L Normal 3.5 - 5.3 mmol/L [employer] [facility], [facility].; [employer], [employer]. Sodium [Moles/Vol] 141 mmol/L Normal 135 - 146 mmol/L [employer], [facility].; [employer], [employer]. Triglyceride [Mass/Vol] 92 mg/dL Normal [facility] [employer] [facility] HospitalFit[facility] [employer].; [employer], [employer]. Urea nitrogen [Mass/Vol] 12 mg/dL Normal 7 - 25 mg/dL [employer].; [employer], [employer]. Urea nitrogen/Creatinine [Mass ratio] 16.1 mg/mg Normal 6 - 22 [employer].; [employer], [employer]. Laboratory - Hematology and Cell countson 12-03-2015 Basophils (Bld) [#/Vol] 40 {Cells}/uL Normal 0 - 200 {Cells}/uL [employer].; [employer], [employer]. Basophils/100 WBC (Bld) 1 % Normal 0 - 1 % [facility] [employer].; [employer], [employer]. Eosinophils (Bld) [#/Vol] 240 {Cells}/uL Normal 15 - 500 {Cells}/uL [employer].; [employer] Eosinophils/100 WBC (Bld) 4 % Normal 0 - 4 % [employer].; [facility]. Erythrocyte distribution width (RBC) [Ratio] 14.0 % Normal 11.0 - 15.0 % [facility].; [facility], [facility] Hematocrit (Bld) [Volume fraction] 36.0 % Normal 35.0 - 45.0 % [facility].; [facility], [facility] Hemoglobin (Bld) [Mass/Vol] 11.9 g/dL Normal 11.7 - 15.5 g/dL [facility].; [facility], [facility] Lymphocytes (Bld) [#/Vol] 2020 {Cells}/uL Normal 850 - 3900 {Cells}/uL [facility].; [facility], [facility]. Lymphocytes/100 WBC (Bld) 36 % Normal 12 - 47 % [facility].; [facility], [facility]. MCH (RBC) [Entitic mass] 29.2 pg Normal 27.0 - 33.0 PG [facility].; [facility], [facility]. MCHC (RBC) [Mass/Vol] 33.1 g/dL Normal 32.0 - 36.0 g/dL [facility].; [facility], [facility]. MCV (RBC) [Entitic vol] 88.2 fL Normal 80.0 - 100.0 fL [facility].; [facility], [facility]. Monocytes (Bld) [#/Vol] 360 {Cells}/uL Normal 20 0 - 950 {Cells}/uL [facility].; [facility], [facility]. Monocytes/100 WBC (Bld) 6 % Normal 4 - 12 % [facility].; [facility], [facility]. Neutrophils (Bld) [#/Vol] 3010 {Cells}/uL Normal 1500 - 7800 {Cells}/uL [facility].; [facility], [facility]. Neutrophils/100 WBC (Bld) 53 % Normal 40 - 75 % [facility].; [employer] [facility], [facility]. Platelet mean volume (Bld) [Entitic vol] 9.2 fL Normal 7.5 - 11.5 fL [facility].; [facility] [employer], [facility]. Platelets (Bld) [#/Vol] 239 10*3/uL Normal 140 - 400 10*3/uL [facility].; [facility], [facility]. RBC (Bld) [#/Vol] 4.09 10*6/uL Normal 3.80 - 5.1 0 10*6/uL [facility], [facility].; [facility], [facility]. WBC (Bld) [#/Vol] 5.7 10*3/uL Normal 3.8 - 10.8 10*3/uL [facility], [facility].; [facility], [facility]. Laboratory - Chemistry and C hemistry - challengeon 11-28-2014 Hemoglobin.gastrointest inal Ql (Stl) Negative Normal [facility].; [facility], [facility]. Laboratory - Chemistry and C hemistry - challengeon 11-21-2014 Albumin [Mass/Vol] 4.4 g/dL Normal 3.6 - 5.1 g/dL [facility], [facility].; [employer], [facility]. Albumin/Globulin [Mass ratio] 1.3 {ratio} Normal 1.0 - 2.5 [facility].; [employer], [employer]. ALP [Catalytic activity/Vol] 77 U/L Normal 33 - 130 U/L [facility], [facility].; [place] [facility], [facility]. ALT [Catalytic activity/Vol] 10 U/L Normal 6 - 29 U/L [facility].; [employer], [employer]. AST [Catalytic activity/Vol] 16 U/L Normal 10 - 35 U/L [facility], [facility].; [employer], [facility]. Bilirubin [Mass/Vol] 0.9 mg/dL Normal 0.2 - 1 .2 mg/dL [facility], [facility].; [employer] [facility], [facility]. Calcium [Mass/Vol] 10.4 mg/dL Normal 8.6 - 10. 4 mg/dL [facility], [facility].; [employer], [employer]. Chloride [Moles/Vol] 103 mmol/L Normal 98 - 11 0 mmol/L [facility], [facility].; [employer], [employer]. Cholesterol [Mass/Vol] 173 mg/dL Normal 125 - 200 mg/dL [facility], [facility].; [employer], [facility]. Cholesterol in HDL [Mass/Vol] 54 mg/dL Normal [facility], [facility].; [facility], [facility]. Cholesterol in LDL [Mass/Vol] 99 mg/dL Normal [facility].; [facility], [facility]. Cholesterol non HDL [Mass/Vol] 120 mg/dL Normal [facility], [facility].; [employer] [facility], [facility]. Cholesterol.total/Antonietta sterol in HDL [Mass ratio] 3.2 {ratio} Normal [facility].; [employer] [facility], [facility]. CO2 [Moles/Vol] 28 mmol/L Normal 19 - 30 mmol/L [facility].; [employer] [facility], [facility]. Creatinine [Mass/Vol] 0.81 mg/dL Normal 0.50 - 0.99 mg/dL [facility], [facility].; [facility], [facility]. GFR/1.73 sq M.predicted among blacks MDRD (S/P/Bld) [Vol rate/Area] 87 {ML/MIN/1.73M2} Normal [facility], [facility].; [facility], [facility]. GFR/1.73 sq M.predicted MDRD (S/P/Bld) [Vol rate/Area] 75 {ML/MIN/1.73M2} Normal [facility], [facility].; [employer] [facility], [facility]. Globulin (S) [Mass/Vol] 3.4 g/dL Normal 1.9 - 3.7 g/dL [facility], [facility].; [employer], [facility]. Glucose [Mass/Vol] 94 mg/dL Normal 65 - 99 mg/dL [facility], [facility].; [employer] [facility], [facility]. Potassium [Moles/Vol] 4.3 mmol/L Normal 3.5 - 5.3 mmol/L [facility], [facility].; [employer], [facility]. Protein [Mass/Vol] 7.8 g/dL Normal 6.1 - 8.1 g/dL [facility], [facility].; [employer] [facility], [facility]. Sodium [Moles/Vol] 141 mmol/L Normal 135 - 146 mmol/L [facility], [facility].; [employer], [facility]. Triglyceride [Mass/Vol] 102 mg/dL Normal [facility].; [employer] [facility] TSH Qn 3.01 m[IU]/L Normal 0.40 - 4.50 {mIU/L} [facility].; [facility] Urea nitrogen [Mass/Vol] 13 mg/dL Normal 7 - 25 mg/dL [facility].; [facility], [facility] Urea nitrogen/Creatinine [Mass ratio] 15.8 mg/mg Normal 6 - 22 [facility].; [facility] Laboratory - Hematology and Cell countson 11-21-2014 Basophils (Bld) [#/Vol] 60 {Cells}/uL Normal 0 - 200 {Cells}/uL [facility].; [facility] Basophils/100 WBC (Bld) 1 % Normal 0 - 1 % [facility]; [facility], [facility] Eosinophils (Bld) [#/Vol] 250 {Cells}/uL Normal 15 - 500 {Cells}/uL [facility].; [facility] Eosinophils/100 WBC (Bld) 5 % Abnormal 0 - 4 % [facility].; [employer] [facility] Erythrocyte distribution width (RBC) [Ratio] 13.7 % Normal 11.0 - 15.0 % [facility].; [employer] [facility], [facility] Hematocrit (Bld) [Volume fraction] 38.5 % Normal 35.0 - 45.0 % [facility].; [employer] [facility], [facility] Hemoglobin (Bld) [Mass/Vol] 12.8 g/dL Normal 11.7 - 15.5 g/dL [facility].; [employer] [facility], [facility]. Lymphocytes (Bld) [#/Vol] 2050 {Cells}/uL Normal 850 - 3900 {Cells}/uL [facility].; [employer] [facility] Lymphocytes/100 WBC (Bld) 38 % Normal 12 - 47 % [facility].; [employer] [facility], [facility]. MCH (RBC) [Entitic mass] 29.4 pg Normal 27.0 - 33.0 PG [facility].; [employer], [facility]. MCHC (RBC) [Mass/Vol] 33.2 g/dL Normal 32.0 - 36.0 g/dL [facility].; [employer]. MCV (RBC) [Entitic vol] 88.4 fL Normal 80.0 - 100.0 fL [facility].; [facility], [facility]. Monocytes (Bld) [#/Vol] 310 {Cells}/uL Normal 20 0 - 950 {Cells}/uL [facility].; [facility] [employer]. Monocytes/100 WBC (Bld) 6 % Normal 4 - 12 % [facility].; [facility], [facility]. Neutrophils (Bld) [#/Vol] 2770 {Cells}/uL Normal 1500 - 7800 {Cells}/uL [facility].; [employer], [employer]. Neutrophils/100 WBC (Bld) 51 % Normal 40 - 75 % [facility].; [employer], [employer]. Platelet mean volume (Bld) [Entitic vol] 9.0 fL Normal 7.5 - 11.5 fL [facility].; [employer], [employer]. Platelets (Bld) [#/Vol] 237 10*3/uL Normal 140 - 400 10*3/uL [facility].; [employer], [employer]. RBC (Bld) [#/Vol] 4.35 10*6/uL Normal 3.80 - 5.1 0 10*6/uL [facility].; [employer], [employer]. WBC (Bld) [#/Vol] 5.4 10*3/uL Normal 3.8 - 10.8 10*3/uL [facility] [employer] [facility].; [employer], [employer]. Laboratory - Chemistry and C hemistry - challengeon 11-22-2013 Bilirubin Ql (U) Negative Normal [facility].; [employer], [employer] Hemoglobin.gastrointest inal Ql (Stl) Negative Normal [facility].; [employer] Ketones Ql (U) Negative Normal [facility], [facility].; [employer], [employer]. pH (U) 6.5 [pH] Normal [facility] [employer] [facility].; [facility] Hospital[facility] [employer]. Specific gravity (U) [Rel density] <=1.005 Normal [facility] [employer].; [employer] Qn (U) 0.2 mg/dL Normal [facility].; [employer]. Laboratory - Hematology and Cell countson 11-22-2013 Hemoglobin Ql (U) small Abnormal [facility].; [employer]. Laboratory - Specimen inform ationon 11-22-2013 Appearance (U) Clear Normal [facility] [employer].; [employer]. Color (U) yellow Normal [facility] Systems[facility]; [employer]. Laboratory - Urinalysison Glucose Test strip (U) [Mass/Vol] Negative Normal [facility].; [employer]. Leukocyte esterase Test strip Ql (U) moderate Abnormal [facility].; [employer]. Nitrite Ql (U) Negative Normal [facility] [employer].; [employer]. Protein Ql (U) Negative Normal [facility] [employer].; [employer]. Laboratory - Chemistry and C hemistry - challengeon 11-14-2013 Albumin [Mass/Vol] 4.2 g/dL Normal 3.6 - 5.1 g/dL [facility].; [employer], [employer]. Albumin/Globulin [Mass ratio] 1.5 {ratio} Normal 1.0 - 2.5 [facility].; [employer]. ALP [Catalytic activity/Vol] 77 U/L Normal 33 - 130 U/L [facility].; [employer]. ALT [Catalytic activity/Vol] 9 U/L Normal 6 - 29 U/L [employer].; [employer]. AST [Catalytic activity/Vol] 16 U/L Normal 10 - 35 U/L [employer].; [employer], [employer]. Bilirubin [Mass/Vol] 0.7 mg/dL Normal 0.2 - 1 .2 mg/dL [employer].; [employer]. Calcium [Mass/Vol] 9.7 mg/dL Normal 8.6 - 10. 4 mg/dL [facility], [facility].; [employer] [facility], [facility]. Chloride [Moles/Vol] 105 mmol/L Normal 98 - 11 0 mmol/L [facility], [facility].; [employer] [facility], Inc[employer] Cholesterol [Mass/Vol] 163 mg/dL Normal 125 - 200 mg/dL [facility], [facility].; [facility], [facility]. Cholesterol in HDL [Mass/Vol] 47 mg/dL Normal [facility], [facility].; [facility], [facility]. Cholesterol in LDL [Mass/Vol] 94 mg/dL Normal [facility], [facility].; [facility], [employer]. Cholesterol non HDL [Mass/Vol] 116 mg/dL Normal [facility], [facility].; [facility], [facility]. Cholesterol.total/Antonietta sterol in HDL [Mass ratio] 3.5 {ratio} Normal [facility], [facility].; [employer], [employer]. CO2 [Moles/Vol] 29 mmol/L Normal 19 - 30 mmol/L [facility].; [employer], [employer]. Creatinine [Mass/Vol] 0.79 mg/dL Normal 0.50 - 0.99 mg/dL [facility], [facility].; [employer] [facility], [facility]. GFR/1.73 sq M.predicted among blacks MDRD (S/P/Bld) [Vol rate/Area] 90 {ML/MIN/1.73M2} Normal [facility], [facility].; [employer] [facility], [facility]. GFR/1.73 sq M.predicted MDRD (S/P/Bld) [Vol rate/Area] 78 {ML/MIN/1.73M2} Normal [facility], [facility].; [employer] [facility], [facility]. Globulin (S) [Mass/Vol] 2.8 g/dL Normal 1.9 - 3.7 g/dL [facility], [facility].; [employer] [facility], Inc[employer] Glucose [Mass/Vol] 95 mg/dL Normal 65 - 99 mg/dL [facility], [facility].; [employer] Potassium [Moles/Vol] 4.1 mmol/L Normal 3.5 - 5.3 mmol/L [facility], [facility].; [facility], [employer]. Protein [Mass/Vol] 7.0 g/dL Normal 6.1 - 8.1 g/dL [employer] [facility].; [employer], [employer]. Sodium [Moles/Vol] 141 mmol/L Normal 135 - 146 mmol/L [employer] [facility].; [employer], [employer]. Triglyceride [Mass/Vol] 111 mg/dL Normal [facility].; [employer], [employer]. Urea nitrogen [Mass/Vol] 9 mg/dL Normal 7 - 25 mg/dL [employer] [facility].; [employer], [employer]. Urea nitrogen/Creatinine [Mass ratio] 11.4 mg/mg Normal 6 - 22 [employer].; [employer], [employer]. Laboratory - Hematology and Cell countson 11-14-2013 Basophils (Bld) [#/Vol] 40 {Cells}/uL Normal 0 - 200 {Cells}/uL [employer].; [employer]. Basophils/100 WBC (Bld) 1 % Normal [facility].; [employer], [employer]. Eosinophils (Bld) [#/Vol] 420 {Cells}/uL Normal 15 - 500 {Cells}/uL [employer].; [employer], [employer]. Eosinophils/100 WBC (Bld) 7 % Normal [employer] [facility].; [employer], [employer]. Erythrocyte distribution width (RBC) [Ratio] 14.1 % Normal 11.0 - 15.0 % [employer].; [employer], [employer]. Hematocrit (Bld) [Volume fraction] 36.8 % Normal 35.0 - 45.0 % [employer].; [employer], [employer]. Hemoglobin (Bld) [Mass/Vol] 12.2 g/dL Normal 11.7 - 15.5 g/dL [employer].; [employer], [employer]. Lymphocytes (Bld) [#/Vol] 2370 {Cells}/uL Normal 850 - 3900 {Cells}/uL [employer], [employer].; [employer], [employer]. Lymphocytes/100 WBC (Bld) 39 % Normal [employer].; [employer], [employer]. MCH (RBC) [Entitic mass] 29.6 pg Normal 27.0 - 33.0 PG [facility].; [employer]. MCHC (RBC) [Mass/Vol] 33.1 g/dL Normal 32.0 - 36.0 g/dL [facility].; [employer], [employer]. MCV (RBC) [Entitic vol] 89.5 fL Normal 80.0 - 100.0 fL [facility].; [employer] [facility]. Monocytes (Bld) [#/Vol] 340 {Cells}/uL Normal 20 0 - 950 {Cells}/uL [facility].; [employer]. Monocytes/100 WBC (Bld) 6 % Normal [facility].; [employer] [facility]. Neutrophils (Bld) [#/Vol] 2880 {Cells}/uL Normal 1500 - 7800 {Cells}/uL [facility].; [employer]. Neutrophils/100 WBC (Bld) 48 % Normal [facility].; [employer]. Platelets (Bld) [#/Vol] 242 10*3/uL Normal 140 - 400 10*3/uL [employer].; [employer]. RBC (Bld) [#/Vol] 4.11 10*6/uL Normal 3.80 - 5.1 0 10*6/uL [employer].; [employer], [employer]. WBC (Bld) [#/Vol] 6.1 10*3/uL Normal 3.8 - 10.8 10*3/uL [employer].; [employer], [employer]. Laboratory - Chemistry and C hemistry - challengeon 11-02-2012 Hemoglobin.gastrointest inal Ql (Stl) Negative Normal [employer].; [employer]. Laboratory - Chemistry and C hemistry - challengeon 10-23-2012 Calcium [Mass/Vol] 9.9 mg/dL Normal 8.6 - 10. 4 mg/dL [facility].; [employer]. Chloride [Moles/Vol] 102 mmol/L Normal 98 - 11 0 mmol/L [facility].; [facility], [facility]. Cholesterol [Mass/Vol] 165 mg/dL Normal 125 - 200 mg/dL [facility], [facility].; [facility], [facility]. Cholesterol in HDL [Mass/Vol] 54 mg/dL Normal [facility], [facility].; [facility], [facility]. Cholesterol in LDL [Mass/Vol] 92 mg/dL Normal [facility], [facility].; [facility], [facility]. Cholesterol non HDL [Mass/Vol] 111 mg/dL Normal [facility], [facility].; [employer] [facility], [facility]. Cholesterol.total/Antonietta sterol in HDL [Mass ratio] 3.1 {ratio} Normal [facility], [facility].; [facility], [facility]. CO2 [Moles/Vol] 28 mmol/L Normal 19 - 30 mmol/L [facility], [facility].; [employer] [facility], [facility]. Creatinine [Mass/Vol] 0.71 mg/dL Normal 0.50 - 0.99 mg/dL [facility], [facility].; [facility], [facility]. GFR/1.73 sq M.predicted among blacks MDRD (S/P/Bld) [Vol rate/Area] 104 {ML/MIN/1.73M2} Normal [facility], [facility].; [employer] [facility], [facility]. GFR/1.73 sq M.predicted MDRD (S/P/Bld) [Vol rate/Area] 89 {ML/MIN/1.73M2} Normal [facility], [facility].; [employer] [facility], [facility]. Glucose [Mass/Vol] 83 mg/dL Normal 65 - 99 mg/dL [facility], [facility].; [employer], [facility]. Potassium [Moles/Vol] 4.2 mmol/L Normal 3.5 - 5.3 mmol/L [facility], [facility].; [facility], [facility]. Sodium [Moles/Vol] 141 mmol/L Normal 135 - 146 mmol/L [facility], [facility].; [employer], [facility]. Triglyceride [Mass/Vol] 94 mg/dL Normal [facility].; [employer], [facility]. TSH Qn 4.13 m[IU]/L Normal 0.40 - 4.50 {mIU/L} [facility].; [employer] [facility] [facility] Urea nitrogen [Mass/Vol] 10 mg/dL Normal 7 - 25 mg/dL [facility].; [employer], [facility]. Urea nitrogen/Creatinine [Mass ratio] 13.7 mg/mg Normal 6 - 22 [facility], [facility].; [employer], [employer]. Laboratory - Hematology and Cell countson 10-23-2012 Basophils (Bld) [#/Vol] 30 {Cells}/uL Normal 0 - 200 {Cells}/uL [facility].; [employer] Basophils/100 WBC (Bld) 0 % Normal 0 - 2 % [facility].; [employer] [facility], [facility] Eosinophils (Bld) [#/Vol] 290 {Cells}/uL Normal 15 - 500 {Cells}/uL [facility], [facility].; [employer], [employer] Eosinophils/100 WBC (Bld) 5 % Normal 0 - 8 % [employer].; [employer], [employer]. Erythrocyte distribution width (RBC) [Ratio] 14.1 % Normal 11.0 - 15.0 % [facility].; [employer], [employer]. Hematocrit (Bld) [Volume fraction] 39.6 % Normal 35.0 - 45.0 % [employer] [facility], [facility].; [employer], [employer]. Hemoglobin (Bld) [Mass/Vol] 12.9 g/dL Normal 11.7 - 15.5 g/dL [facility], [facility].; [employer], [employer]. Lymphocytes (Bld) [#/Vol] 2150 {Cells}/uL Normal 850 - 3900 {Cells}/uL [employer] [facility].; [employer], [employer]. Lymphocytes/100 WBC (Bld) 34 % Normal 15 - 49 % [facility].; [employer], [employer]. MCH (RBC) [Entitic mass] 30.0 pg Normal 27.0 - 33.0 PG [employer] [facility], [facility].; [employer], [employer]. MCHC (RBC) [Mass/Vol] 32.5 g/dL Normal 32.0 - 36.0 g/dL [employer] [facility].; [facility], [facility]. MCV (RBC) [Entitic vol] 92.4 fL Normal 80.0 - 100.0 fL [facility].; [facility], [facility]. Monocytes (Bld) [#/Vol] 100 {Cells}/uL Abnormal 20 0 - 950 {Cells}/uL [facility], [facility].; [facility], [facility]. Monocytes/100 WBC (Bld) 2 % Normal 0 - 13 % H [facility].; [facility], [facility]. Neutrophils (Bld) [#/Vol] 3800 {Cells}/uL Normal 1500 - 7800 {Cells}/uL [facility].; [facility], [facility]. Neutrophils/100 WBC (Bld) 60 % Normal 38 - 80 % [facility].; [facility], [facility] Platelets (Bld) [#/Vol] 254 10*3/uL Normal 140 - 400 10*3/uL [facility].; [facility], [facility]. RBC (Bld) [#/Vol] 4.28 10*6/uL Normal 3.80 - 5.1 0 10*6/uL [facility].; [facility], [facility]. WBC (Bld) [#/Vol] 6.4 10*3/uL Normal 3.8 - 10.8 10*3/uL [facility].; [employer], [facility]. Laboratory - Chemistry and C hemistry - challengeon 03-16-2012 TSH Qn 3.95 mU/mL Normal 0.35 - 5.5 mU/mL [facility].; [facility], [facility]. Laboratory - Chemistry and C hemistry - challengeon 09-09-2011 Bilirubin Ql (U) Negative Normal [facility].; [employer], [employer]. Ketones Ql (U) Negative Normal [facility].; [facility], [facility]. pH (U) 5.5 [pH] Normal 4.6 - 8.0 [facility].; [employer], [facility] Specific gravity (U) [Rel density] 1.020 Normal 1.001 - 1.025 [facility].; [facility] [employer] Laboratory - Hematology and Cell countson 09-09-2011 Hemoglobin Ql (U) Moderate Abnormal [employer].; [employer]. Laboratory - Specimen inform ationon 09-09-2011 Appearance (U) Clear Normal [facility] [employer].; [employer]. Color (U) yellow Normal [employer].; [employer]. Laboratory - Urinalysison Glucose Test strip (U) [Mass/Vol] Negative Normal [employer].; [employer]. Leukocyte esterase Test strip Ql (U) small Abnormal [employer].; [employer], [employer]. Nitrite Ql (U) Negative Normal [facility] [employer].; [employer]. Protein Ql (U) Negative Normal [facility].; [employer]. No Panel Informationon 09-08 0.2 mg/dL Normal [employer]; [employer]. Laboratory - Chemistry and C hemistry - challengeon 08-23-2011 Albumin [Mass/Vol] 4.5 g/dL Normal 3.5 - 5.0 g/dL [employer].; [employer], [employer]. Albumin/Globulin [Mass ratio] 1.7 {ratio} Abnormal [employer].; [employer]. ALP [Catalytic activity/Vol] 66 U/L Normal 50 - 136 U/L [employer].; [employer]. ALT [Catalytic activity/Vol] 11 mmol/L Abnormal 12 - 49 mmol/L [employer].; [employer], [employer]. AST [Catalytic activity/Vol] 17 U/L Normal 15 - 37 U/L [employer].; [employer]. Bilirubin [Mass/Vol] 0.7 mg/dL Normal 0.3 - 1 .0 mg/dL [employer].; [employer], [employer]. Calcium [Mass/Vol] 9.8 mg/dL Normal 8.4 - 10. 6 mg/dL [employer].; [employer]. Chloride [Moles/Vol] 105 mmol/L Normal 98 - 11 0 mmol/L [facility].; [facility]. Cholesterol [Mass/Vol] 155 mg/dL Normal 0 - 2 00 mg/dL [facility].; [facility], [facility]. Cholesterol in HDL [Mass/Vol] 51 mg/dL Normal 40 - 60 mg/dL [facility].; [facility], [facility] Cholesterol in LDL [Mass/Vol] 86 mg/dL Normal 50.0 - 130.0 mg/dL [facility].; [facility], [facility] Cholesterol.total/Antonietta sterol in HDL [Mass ratio] 3.0 {ratio} Normal 0 - 5.0 [facility]; [facility]. CO2 [Moles/Vol] 32.0 {joel/L} Normal 22.0 - 32.0 {joel/L} [facility], [facility].; [facility], [facility]. Creatinine [Mass/Vol] 0.7 mg/dL Normal 0.6 - 1.4 mg/dL [facility].; [facility]. Globulin (S) [Mass/Vol] 2.6 g/dL Normal 1.5 - 3.8 g/dL [facility].; [facility], [facility]. Glucose [Mass/Vol] 95 mg/dL Normal 75 - 105 mg/dL [facility], [facility].; [facility], [facility]. Potassium [Moles/Vol] 4.3 mmol/L Normal 3.50 - 5.00 meq/L [facility].; [facility], [facility]. Protein [Mass/Vol] 7.1 g/dL Normal 6.4 - 8.2 g/dL [facility], [facility].; [facility], [facility]. Sodium [Moles/Vol] 141 mmol/L Normal 136 - 145 mmol/L [facility].; [facility], [facility]. Triglyceride [Mass/Vol] 89 mg/dL Normal 40 - 150 mg/dL [facility], [facility].; [facility], [facility]. TSH Qn 5.86 mU/mL Abnormal 0.35 - 5.5 mU/mL [facility].; [facility] [employer] Urea nitrogen [Mass/Vol] 11 mg/dL Normal 7.0 - 20.0 mg/dL [facility].; [employer], [facility]. Urea nitrogen/Creatinine [Mass ratio] 16 mg/mg Normal 0 - 30 [facility].; [employer], [employer]. Laboratory - Hematology and Cell countson 08-23-2011 Basophils/100 WBC (Bld) 0.0 % Normal 0.00 - 0.10 [facility].; [facility], [facility] Basophils/100 WBC (Bld) 0.8 % Normal 0.0 - 2.0 % [facility].; [employer] [facility], [facility] Eosinophils/100 WBC (Bld) 0.30 % Normal 0.00 - 0.50 [facility].; [employer], [facility] Eosinophils/100 WBC (Bld) 5.5 % Normal 0.0 - 6.0 % [facility].; [employer], [facility] Erythrocyte distribution width (RBC) [Ratio] 13.6 % Normal 12.0 - 15.6 % [employer] [facility].; [employer], [employer] Hematocrit (Bld) [Volume fraction] 39.6 % Normal 34 - 44 % [employer] [facility].; [employer], [employer]. Lymphocytes/100 WBC (Bld) 1.80 % Normal [facility].; [employer], [facility] Lymphocytes/100 WBC (Bld) 30.5 % Normal 20.0 - 45.0 % [employer] [facility].; [employer], [employer]. MCH (RBC) [Entitic mass] 30 pg Normal 27 - 33 pg [employer] [facility].; [employer], [facility]. MCHC (RBC) [Mass/Vol] 33 g/dL Normal 32 - 36 g/dL [facility].; [employer] MCV (RBC) [Entitic vol] 91 fL Normal 80 - 99 fL [facility], [facility].; [employer] Monocytes/100 WBC (Bld) 0.40 % Normal [facility], [facility].; [employer] Neutrophils/100 WBC (Bld) 56.4 % Normal 46 - 76 % [facility].; [facility], [facility]. Platelet mean volume (Bld) [Entitic vol] 8.5 fL Normal 6.6 - 10.5 fL [facility].; [facility], [facility]. Platelets (Bld) [#/Vol] 240 10*9{Cells}/L Normal 150 - 450 10*9{Cells}/ L [facility], [facility].; [facility], [facility]. RBC (Bld) [#/Vol] 4.36 10*6/uL Normal 4.10 - 5.3 0 10*6/uL [facility].; [employer] [facility], [facility]. WBC (Bld) [#/Vol] 6.1 10*9{Cells}/L Normal 4.5 - 10.8 10*9{Cells}/ L [facility], [facility].; [employer], [facility]. No Panel Informationon 08-22 3.40 10*6/uL Normal 1.5 - 7.1 10*6/uL [facility].; [employer], [facility]. 6.8 % Normal 2.0 - 13.0 % [facility].; [employer], [employer]. 13.1 g/dL Normal 11.5 - 14.2 g/dL [facility], [facility].; [employer], [employer]. 84 Normal [facility].; [employer], [facility]. Laboratory - Chemistry and C hemistry - challengeon 02-26-2011 Cholesterol [Mass/Vol] 210 mg/dL Abnormal 0 - 2 00 mg/dL [facility], [facility].; [employer] Cholesterol in HDL [Mass/Vol] 58 mg/dL Normal 40 - 60 mg/dL [facility], [facility].; [employer], [facility]. Cholesterol in LDL [Mass/Vol] 138 mg/dL Abnormal 50.0 - 130.0 mg/dL [facility], [facility].; [employer] Cholesterol.total/Antonietta sterol in HDL [Mass ratio] 3.6 {ratio} Normal 0 - 5.0 [facility].; [employer] Triglyceride [Mass/Vol] 69 mg/dL Normal 40 - 150 mg/dL [facility].; [employer]. Laboratory - Chemistry and C hemistry - challengeon 08-26-2010 Bilirubin Ql (U) Negative Normal [facility].; [employer] Ketones Ql (U) Negative Normal [facility].; [employer] pH (U) 5.0 [pH] Normal 4.6 - 8.0 [facility].; [employer] Specific gravity (U) [Rel density] 1.020 Normal 1.001 - 1.025 [facility].; [employer]. Laboratory - Hematology and Cell countson 08-26-2010 Hemoglobin Ql (U) Abnormal [facility].; [employer]. Laboratory - Specimen inform ationon 08-26-2010 Appearance (U) clear Normal [facility].; [employer] Color (U) yellow Normal [facility].; [employer] Laboratory - Urinalysison Glucose Test strip (U) [Mass/Vol] Negative Normal [facility] [employer] [facility].; [employer]. Leukocyte esterase Test strip Ql (U) large Abnormal [facility].; [employer]. Nitrite Ql (U) Negative Normal [facility].; [employer] Protein Ql (U) Negative Normal [facility].; [employer]. No Panel Informationon 08-26 0.2 mg/dL Normal [employer].; [employer]. Laboratory - Chemistry and C hemistry - challengeon 07-23-2010 ALT [Catalytic activity/Vol] 15 mmol/L Normal 12 - 49 mmol/L [facility].; [employer]. Calcium [Mass/Vol] 10.1 mg/dL Normal 8.4 - 10. 6 mg/dL [employer].; [employer], [employer]. Chloride [Moles/Vol] 108 mmol/L Normal 98 - 11 0 mmol/L [employer].; [employer]. Cholesterol [Mass/Vol] 139 mg/dL Normal 0 - 2 00 mg/dL [facility].; [facility]. Cholesterol in HDL [Mass/Vol] 48 mg/dL Normal 40 - 60 mg/dL [facility].; [employer] [facility], [employer]. Cholesterol in LDL [Mass/Vol] 80 mg/dL Normal 0 - 100 mg/dL [facility].; [employer], [employer]. Cholesterol.total/Antonietta sterol in HDL [Mass ratio] 2.9 {ratio} Normal 0 - 5.0 [facility].; [employer], [employer]. CO2 [Moles/Vol] 34.0 {joel/L} Abnormal 22.0 - 32.0 {joel/L} [employer] [facility].; [employer], [employer]. Glucose [Mass/Vol] 90 mg/dL Normal 60 - 100 mg/dL [facility].; [employer], [employer]. Potassium [Moles/Vol] 4.3 mmol/L Normal 3.5 - 5.0 mmol/L [facility].; [employer], [employer]. Sodium [Moles/Vol] 144 mmol/L Normal 136 - 145 mmol/L [employer].; [employer], [employer]. Triglyceride [Mass/Vol] 57 mg/dL Normal 0 - 150 mg/dL [employer] [facility].; [employer], [employer]. Urea nitrogen [Mass/Vol] 13 mg/dL Normal 8 - 22 mg/dL [employer].; [employer]. Laboratory - Chemistry and C hemistry - challengeOrdered By: Janeth Florez on 07-23-2010 Creatinine [Mass/Vol] 0.6 mg/dL Normal 0.5 - 1.2 mg/dL [employer].; [employer], [employer]. Work Phone: Laboratory - Hematology and Cell countson 07-23-2010 Basophils/100 WBC (Bld) 0.10 % Normal 0.00 - 0.10 [facility].; [employer] Basophils/100 WBC (Bld) 1.1 % Normal 0.0 - 2.0 % [facility] [employer].; [employer] [facility], [facility]. Eosinophils/100 WBC (Bld) 0.30 % Normal 0.00 - 0.50 [facility], [facility].; [facility], [facility]. Eosinophils/100 WBC (Bld) 6.0 % Normal 0.0 - 6.0 % [facility], [facility].; [employer] Erythrocyte distribution width (RBC) [Ratio] 13.6 % Normal 12.0 - 15.6 % [facility], [facility].; [employer] [facility], Inc[employer] Hematocrit (Bld) [Volume fraction] 37.3 % Normal 34 - 44 % [facility], [facility].; [facility], [facility]. Lymphocytes/100 WBC (Bld) 2.00 % Normal [facility], [facility].; [facility], [facility]. Lymphocytes/100 WBC (Bld) 36.3 % Normal 20.0 - 45.0 % [facility], [facility].; [employer] MCH (RBC) [Entitic mass] 31 pg Normal 27 - 33 pg [employer] [facility], [facility].; [employer] MCHC (RBC) [Mass/Vol] 34 g/dL Normal 32 - 36 g/dL [facility], [facility].; [employer] [facility], Inc[employer] MCV (RBC) [Entitic vol] 92 fL Normal 80 - 99 fL [facility].; [employer] Monocytes/100 WBC (Bld) 0.50 % Normal [facility], [facility].; [employer] Neutrophils/100 WBC (Bld) 48.3 % Normal 46 - 76 % [facility] [employer], [facility].; [employer] Platelet mean volume (Bld) [Entitic vol] 8.3 fL Normal 6.6 - 10.5 fL [employer] [facility], [facility].; [employer] Platelets (Bld) [#/Vol] 239 10*9{Cells}/L Normal 150 - 450 10*9{Cells}/ L [facility], [facility].; [employer] RBC (Bld) [#/Vol] 4.07 10*6/uL Abnormal 4.10 - 5.3 0 10*6/uL [facility].; [facility]. WBC (Bld) [#/Vol] 5.5 10*9{Cells}/L Normal 4.5 - 10.8 10*9{Cells}/ L [facility].; [employer] [facility]. No Panel Informationon 07-23 2.70 10*6/uL Normal 1.5 - 7.1 10*6/uL [facility].; [employer]. 8.3 % Normal 2.0 - 13.0 % [facility].; [employer] [facility]. 12.6 g/dL Normal 11.5 - 14.2 g/dL [facility].; [facility]. Vital Signs Date Time Vital Sign Value Performing Clinician Faci joséy 09-03-2024 15:33-0400 Body height 160.[address] Joel Muniz MD Work Phone: [phone] [place] [address] 09-03-2024 15:33-0400 Body mass index (BMI) [Ratio] 22.8 kg/m2 Dr. Joel Muniz MD Work Phone: [phone] [place] [address] 09-03-2024 15:33-0400 Body weight 58.[address] Joel Muniz MD Work Phone: [phone] [place] [address] 09-03-2024 15:33-0400 Diastolic blood pressure 91 mm[Hg] Dr. Joel Muniz MD Work Phone: [phone] [place] [address] 09-03-2024 15:33-0400 Heart rate 71 /min Dr. Joel Muniz MD Work Phone: [phone] [place] [address] 09-03-2024 15:33-0400 Respiratory rate 18 /min Dr. Joel Muniz MD Work Phone: [phone] [place] [address] 09-03-2024 15:33-0400 SaO2% (BldA) [Mass fraction] 95 % Dr. Joel Muniz MD Work Phone: [phone] [place] [address] 09-03-2024 15:33-0400 Systolic blood pressure 169 mm[Hg] Dr. Joel Muniz MD Work Phone: [phone] [place] [address] 07-27-2024 09:27-0400 Diastolic blood pressure 84 mm[Hg] Dr. Joel Muniz MD Work Phone: [phone] [place] [address] 07-27-2024 09:27-0400 Heart rate 74 /min Dr. Joel Muniz MD Work Phone: [phone] [place] [address] 07-27-2024 09:27-0400 Respiratory rate 18 /min Dr. Joel Muniz MD Work Phone: [phone] [place] [address] 07-27-2024 09:27-0400 SaO2% (BldA) [Mass fraction] 94 % Dr. Joel Muniz MD Work Phone: [phone] [place] [address] 07-27-2024 09:27-0400 Systolic blood pressure 148 mm[Hg] Dr. Joel Muniz MD Work Phone: [phone] [place] [address] 07-13-2024 14:26-0400 Diastolic blood pressure 84 mm[Hg] Dr. Joel Muniz MD Work Phone: [phone] [place] [address] 07-13-2024 14:26-0400 Heart rate 64 /min Dr. Joel Muniz MD Work Phone: [phone] [place] [address] 07-13-2024 14:26-0400 Respiratory rate 18 /min Dr. Joel Muniz MD Work Phone: [phone] [place] [address] 07-13-2024 14:26-0400 SaO2% (BldA) [Mass fraction] 96 % Dr. Joel Muniz MD Work Phone: [phone] [place] [address] 07-13-2024 14:26-0400 Systolic blood pressure 179 mm[Hg] Dr. Joel Muniz MD Work Phone: [phone] [place] [address] 07-06-2024 14:31-0400 Body height 160.[address] Joel Muniz MD Work Phone: [phone] [place] [address] 07-06-2024 14:31-0400 Body temperature 98.7 [degF] Dr. Joel Muniz MD Work Phone: [phone] [place] [address] 07-06-2024 14:31-0400 Diastolic blood pressure 69 mm[Hg] Dr. Joel Muniz MD Work Phone: [phone] [place] [address] 07-06-2024 14:31-0400 Heart rate 90 /min Dr. Joel Muniz MD Work Phone: [phone] [facility] [place] [address] 07-06-2024 14:31-0400 Respiratory rate 18 /min Dr. Joel Muniz MD Work Phone: 7(941)323-875631 [address] 07-06-2024 14:31-0400 SaO2% (BldA) [Mass fraction] 95 % Dr. Joel Muniz MD Work Phone: 0(346)251-805442 [place] [address] 07-06-2024 14:31-0400 Systolic blood pressure 127 mm[Hg] Dr. Joel Muniz MD Work Phone: 2(146)319-984340 [place] [address] 07-03-2024 10:18-0400 Body height 160.[address] Joel Muniz MD Work Phone: 3(836)298-240840 [place] [address] 07-03-2024 10:18-0400 Body mass index (BMI) [Ratio] 24 kg/m2 Dr. Joel Muniz MD Work Phone: 3(289)007-146442 [place] [address] 07-03-2024 10:18-0400 Body weight 61.[address] Joel Muniz MD Work Phone: 8(032)084-364042 [place] [address] 07-03-2024 10:18-0400 Diastolic blood pressure 91 mm[Hg] Dr. Joel Muniz MD Work Phone: 9(729)614-746842 [place] [address] 07-03-2024 10:18-0400 Heart rate 66 /min Dr. Joel Muniz MD Work Phone: 8(092)805-510642 [place] [address] 07-03-2024 10:18-0400 Respiratory rate 18 /min Dr. Joel Muniz MD Work Phone: 9(026)616-113442 [place] [address] 07-03-2024 10:18-0400 SaO2% (BldA) [Mass fraction] 94 % Dr. Joel Muniz MD Work Phone: 8(779)409-340442 [place] [address] 07-03-2024 10:18-0400 Systolic blood pressure 165 mm[Hg] Dr. Joel Muniz MD Work Phone: 3(458)363-527542 [place] [address] 06-28-2024 14:56-0400 Body mass index (BMI) [Ratio] 23.7 kg/m2 Dr. Joel Muniz MD Work Phone: 1(538)424-909442 [place] [address] 06-28-2024 14:56-0400 Body temperature 97.7 [degF] Dr. Joel Muniz MD Work Phone: 8(842)824-505040 [place] [address] 06-28-2024 14:56-0400 Body weight 60.[address] Joel Muniz MD Work Phone: 2(865)440-466042 [place] [address] 06-28-2024 14:56-0400 Heart rate 76 /min Dr. Joel Muniz MD Work Phone: 0(858)795-919840 [place] [address] 06-28-2024 14:56-0400 Respiratory rate 18 /min Dr. Joel Muniz MD Work Phone: 1(215)950-970740 [place] [address] 06-28-2024 14:56-0400 SaO2% (BldA) [Mass fraction] 94 % Dr. Joel Muniz MD Work Phone: 9(351)977-082642 [place] [address] 06-26-2024 00:49-0400 Body temperature 98 [degF] Dr. Jole Muniz MD Work Phone: 1(952)886-325042 [place] [address] 06-26-2024 00:49-0400 Diastolic blood pressure 80 mm[Hg] Dr. Joel Muniz MD Work Phone: 5(413)315-810642 [place] [address] 06-26-2024 00:49-0400 Heart rate 89 /min Dr. Joel Muniz MD Work Phone: 6(604)945-018042 [place] [address] 06-26-2024 00:49-0400 Respiratory rate 16 /min Dr. Joel Muniz MD Work Phone: 2(154)889-771942 [place] [address] 06-26-2024 00:49-0400 SaO2% (BldA) [Mass fraction] 99 % Dr. Joel Muniz MD Work Phone: 4(540)983-197642 [place] [address] 06-26-2024 00:49-0400 Systolic blood pressure 146 mm[Hg] Dr. Joel Muniz MD Work Phone: 8(790)804-885342 [place] [address] 06-25-2024 20:55-0400 Body height 160.[address] Joel Muniz MD Work Phone: [facility] 06-25-2024 20:55-0400 Body mass index (BMI) [Ratio] 24.5 kg/m2 Dr. Joel Muniz MD Work Phone: [facility] 06-25-2024 20:55-0400 Body weight 62.[address] Joel Muniz MD Work Phone: [facility] 01-17-2024 15:58-0500 Diastolic blood pressure 80 mm[Hg] Chico Collier MD Work Phone: [employer]; [employer] 01-17-2024 15:58-0500 Systolic blood pressure 120 mm[Hg] Chico Collier MD Work Phone: [employer]; [employer] 03-03-2023 09:30-0500 Blood Pressure Cuff Size STAN GARCIA DO [email or web address] 03-03-2023 09:30-0500 Blood Pressure Location STAN GARCIA DO [employer] 03-03-2023 09:30-0500 Blood Pressure Method STAN GARCIA DO [email or web address] 03-03-2023 09:30-0500 Body temperature 97.16 [degF] STAN GARCIA DO [employer] 03-03-2023 09:30-0500 Diastolic Blood Pressure Non-Invasive 60 mm[Hg] STAN GARICA DO [facility] 03-03-2023 09:30-0500 Heart rate 93 /min STAN RADHA HENLEY [employer] 03-03-2023 09:30-0500 Reason For Taking VItal Signs STAN VIVEKSCARLET [employer] 03-03-2023 09:30-0500 Respiratory rate 18 /min STAN DOYLEATZLE DO [facility] 03-03-2023 09:30-0500 Systolic Blood Pressure Non-Invasive 108 mm[Hg] STAN DOYLEATZLE DO [facility] 03-03-2023 05:17-0500 Body temperature 96.8 [degF] STAN SCHEATZLE DO [facility] 03-03-2023 05:17-0500 Diastolic Blood Pressure Non-Invasive 70 mm[Hg] STAN DOYLEATZLE DO [facility] 03-03-2023 05:17-0500 Heart rate 73 /min STAN DOYLEATZLE DO [facility] 03-03-2023 05:17-0500 Respiratory rate 16 /min STAN DOYLEATZLE DO [facility] 03-03-2023 05:17-0500 Systolic Blood Pressure Non-Invasive 100 mm[Hg] STAN DOYLEATZLE DO [facility] 03-02-2023 21:09-0500 Body temperature 98.42 [degF] STAN DOYLEATZLE DO [facility] 03-02-2023 21:09-0500 Diastolic Blood Pressure Non-Invasive 70 mm[Hg] STAN DOYLEATZLE DO [facility] 03-02-2023 21:09-0500 Heart rate 78 /min STAN SCHEATZLE DO [facility] 03-02-2023 21:09-0500 Reason For Taking VItal Signs STAN DOYLEATZLE DO [facility] 03-02-2023 21:09-0500 Respiratory rate 16 /min STAN VIVEKATZLE DO [email or web address] 03-02-2023 21:09-0500 Systolic Blood Pressure Non-Invasive 150 mm[Hg] STAN DOYLEATZLE DO [facility] 03-02-2023 16:18-0500 Body temperature 97.7 [degF] STAN DOYLEATZLE DO [facility] 03-02-2023 16:18-0500 Heart rate 82 /min STAN DOYLEATZLE DO [facility] 03-02-2023 16:18-0500 Reason For Taking VItal Signs STAN DOYLEATZLE DO [facility] 03-02-2023 11:35-0500 Heart rate 85 /min STAN DOYLEATZLE DO [facility] 03-02-2023 09:10-0500 Blood Pressure Cuff Size STAN DOYLEATZLE DO [facility] 03-02-2023 09:10-0500 Blood Pressure Location STAN DOYLEATZLE DO [facility] 03-02-2023 09:10-0500 Blood Pressure Method STAN DOYLEATZLE DO [facility] 03-02-2023 09:10-0500 Heart rate 88 /min STAN DOYLEATZLE DO [facility] 03-01-2023 08:55-0500 Blood Pressure Cuff Size STAN DOYLEATZLE DO [facility] 03-01-2023 08:55-0500 Blood Pressure Location STAN DOYLEATZLE DO [facility] 03-01-2023 08:55-0500 Blood Pressure Method STAN DOYLEATZLE DO [facility] 02-28-2023 05:00-0500 Body weight 58.6 kg STAN DOYLEATZLE DO [facility] 02-27-2023 09:19-0500 Body temperature 98.06 [degF] STAN DOYLEATZLE DO [facility] 02-26-2023 16:00-0500 Body temperature 97.88 [degF] STAN DOYLEATZLE DO [facility] 02-21-2023 09:10-0500 Body weight 59.4 kg STAN DOYLEATZLE DO [facility] 02-15-2023 17:37-0500 Body height 160 cm STAN DOYLEATZLE DO [facility] 02-15-2023 17:37-0500 Body weight 59.8 kg STAN DOYLEATZLE DO [facility] 02-15-2023 17:37-0500 Body weight 23.36 kg/m2 STAN DOYLEATZLE DO [facility] 02-15-2023 11:06-[address] KATINA VALDIVIA MD [facility] 02-15-2023 11:06-[address] KATINA VALDIVIA MD [facility] 02-15-2023 11:06-0500 Body temperature 98.06 [degF] DR KATINA VALDIVIA MD [facility] 02-15-2023 11:06-0500 Diastolic Blood Pressure Non-Invasive 51 mm[Hg] DR KATINA VALDIVIA MD [facility] 02-15-2023 11:06-0500 Heart rate 90 /min DR KATINA VALDIVIA MD [facility] 02-15-2023 11:06-0500 Reason For Taking VItal Signs DR KATINA VALDIVIA MD [address] [place] [address] 02-15-2023 11:06-0500 Respiratory rate 18 /min DR KATINA VALDIVIA MD [address] [place] [address] 02-15-2023 11:06-0500 Systolic Blood Pressure Non-Invasive 97 mm[Hg] DR KATINA VALDIVIA MD [address] [place] [address] 02-15-2023 07:36-[address] KATINA VALDIVIA MD [address] [place] [address] 02-15-2023 07:36-[address] KATINA VALDIVIA MD [address] [place] [address] 02-15-2023 07:36-0500 Body temperature 98.42 [degF] DR KATINA VALDIVIA MD [address] [place] [address] 02-15-2023 07:36-0500 Diastolic Blood Pressure Non-Invasive 83 mm[Hg] DR KATINA VALDIVIA MD [address] [place] [address] 02-15-2023 07:36-0500 Heart rate 88 /min DR KATINA VALDIVIA MD [address] [place] [address] 02-15-2023 07:36-0500 Reason For Taking VItal Signs DR KATINA VALDIVIA MD [address] [place] [address] 02-15-2023 07:36-0500 Respiratory rate 16 /min DR KATINA VALDIVIA MD [address] [place] [address] 02-15-2023 07:36-0500 Systolic Blood Pressure Non-Invasive 144 mm[Hg] DR KATINA VALDIVIA MD [address] [place] [address] 02-15-2023 04:03-0500 Body temperature 98.06 [degF] DR KATINA VALDIVIA MD [address] [place] [address] 02-15-2023 04:03-0500 Diastolic Blood Pressure Non-Invasive 79 mm[Hg] DR KATINA VALDIVIA MD [address] [place] [address] 02-15-2023 04:03-0500 Heart rate 86 /min DR KATINA VALDIVIA MD [address] [place] [address] 02-15-2023 04:03-0500 Reason For Taking VItal Signs DR KATINA VALDIVIA MD [address] [place] [address] 02-15-2023 04:03-0500 Respiratory rate 18 /min DR KATINA VALDIVIA MD [address] [place] [address] 02-15-2023 04:03-0500 Systolic Blood Pressure Non-Invasive 106 mm[Hg] DR KATINA VALDIVIA MD [address] [place] [address] 02-14-2023 23:31-0500 Heart rate 84 /min DR KATINA VALDIVIA MD [address] [place] [address] 02-14-2023 18:56-[address] KATINA VALDIVIA MD [address] [place] [address] 02-14-2023 18:56-[address] KATINA VALDIVIA MD [address] [place] [address] 02-14-2023 18:49-0500 Body height [address] KATINA VALDIVIA MD [address] [place] [address] 02-14-2023 18:49-0500 Body weight 57.[address] KATINA VALDIVIA MD [address] [place] [address] 02-14-2023 18:49-0500 Body weight 22.46 kg/m2 DR KATINA VALDIVIA MD [address] [place] [address] 02-13-2023 10:52-0500 Blood Pressure Cuff Size DR KATINA VALDIVIA MD [address] [place] [address] 02-13-2023 07:37-0500 Blood Pressure Cuff Size DR KATINA VALDIVIA MD [address] [place] [address] 02-13-2023 03:21-0500 Heart rate 83 /min DR KATINA VALDIVIA MD [address] [place] [address] 02-12-2023 12:07-0500 Blood Pressure Cuff Size DR KATINA VALDIVIA MD [address] [place] [address] 02-12-2023 05:32-0500 Heart rate 73 /min DR KATINA VALDIVIA MD [address] [place] [address] 02-12-2023 04:01-0500 Heart rate 78 /min DR KATINA VALDIVIA MD [address] [place] [address] 02-11-2023 23:48-0500 Heart rate 78 /min DR KATINA VALDIVIA MD [address] [place] [address] 02-11-2023 23:48-0500 Mean blood pressure 99 mm[Hg] DR KATINA VALDIVIA MD [address] [place] [address] 02-10-2023 19:29-0500 Heart rate 84 /min DR KATINA VALDIVIA MD [address] [place] [address] 02-10-2023 03:32-0500 Mean blood pressure 102 mm[Hg] DR KATINA VALDIVIA MD [address] [place] [address] 02-09-2023 23:03-0500 Body height [address] KATINA VALDIVIA MD [address] [place] [address] 02-09-2023 23:03-0500 Body weight 57.[address] KATINA VALDIVIA MD [address] [place] [address] 02-09-2023 23:03-0500 Body weight 22.46 kg/m2 DR KATINA VALDIVIA MD [address] [place] [address] 02-08-2023 18:00-0500 Mean blood pressure 87 mm[Hg] DR KATINA VALDIVIA MD [address] [place] [address] 02-08-2023 16:22-0500 Body weight 62.[address] KATINA VALDIVIA MD [address] [place] [address] 01-26-2023 14:18-0500 Body weight 59.42 kg Obi Meier [employer] [facility] [employer] [facility] 01-26-2023 14:18-0500 Diastolic blood pressure 78 mm[Hg] Obi Meier ALEX [facility] [employer] 01-26-2023 14:18-0500 Heart rate 79 /min Obi Meier [employer] [facility] [employer] 01-26-2023 14:18-0500 Systolic blood pressure 145 mm[Hg] Obi Meier [employer] [facility] [employer] [facility] 01-12-2023 10:38-0500 Diastolic blood pressure 72 mm[Hg] Chico Collier MD Work Phone: [employer] 01-12-2023 10:38-0500 Systolic blood pressure 159 mm[Hg] Chico Collier MD Work Phone: [employer].; [employer], [employer] 01-12-2023 09:49-0500 Body height 152.4 cm [facility] [employer] Work Phone: [employer] 01-12-2023 09:49-0500 Body mass index (BMI) [Ratio] 25.78 kg/m2 [facility] [employer] Work Phone: [employer] 01-12-2023 09:49-0500 Body surface area Derived from formula 1.56 m2 Serena Zack [employer] Work Phone: [employer] 01-12-2023 09:49-0500 Body weight 59.88 kg Serena Zack [employer] Work Phone: [employer].; [employer] 01-12-2023 09:49-0500 Diastolic blood pressure 83 mm[Hg] Serena Zack [employer] Work Phone: [facility] [employer] [facility]. 01-12-2023 09:49-0500 Heart rate 68 /min Serena Dixon LPN Work Phone: [facility], [facility].; [employer] 01-12-2023 09:49-0500 Systolic blood pressure 168 mm[Hg] Serena Dixon LPN Work Phone: [employer] [facility] [employer], [facility]. 04-30-2022 15:29-0400 Body height 152.4 cm Tavia Leavitt LPN [facility], [facility].; [employer] [facility], [facility]. 04-30-2022 15:29-0400 Body mass index (BMI) [Ratio] 23.24 kg/m2 Tavia Leavitt LPN [facility] [employer] [facility], [facility]. 04-30-2022 15:29-0400 Body surface area Derived from formula 1.5 m2 Tavia Leavitt LPN [facility], [facility].; [employer] [facility], [facility]. 04-30-2022 15:29-0400 Body weight 53.98 kg Tavia Leavitt LPN [facility], [facility].; [employer] 04-30-2022 15:29-0400 Diastolic blood pressure 61 mm[Hg] Tavia Leavitt LPN [facility], [facility].; [employer] [facility], [facility]. 04-30-2022 15:29-0400 Heart rate 67 /min Tavia Leavitt LPN [employer] [facility].; [employer], [facility]. 04-30-2022 15:29-0400 Systolic blood pressure 157 mm[Hg] Tavia Leavitt LPN [facility], [facility].; [employer], [facility]. 01-06-2022 09:51-0500 Body height 152.4 cm Tavia Leavitt LPN [facility], [facility].; [employer], [employer]. 01-06-2022 09:51-0500 Body mass index (BMI) [Ratio] 22.26 kg/m2 Tavia Leavitt LPN [employer] [facility], [facility].; [employer] [facility], [facility]. 01-06-2022 09:51-0500 Body surface area Derived from formula 1.47 m2 Tavia Leavitt LPN [facility], [facility].; [employer], [facility]. 01-06-2022 09:51-0500 Body weight 51.71 kg Tavia Leavitt LPN [facility] [employer] 01-06-2022 09:51-0500 Diastolic blood pressure 64 mm[Hg] Tavia Leavitt LPN [facility], [facility].; [employer], [facility]. 01-06-2022 09:51-0500 Heart rate 79 /min Tavia Leavitt LPN [employer] [facility], [facility].; [employer], [facility]. 01-06-2022 09:51-0500 Systolic blood pressure 125 mm[Hg] Tavia Leavitt LPN [employer] [facility] [employer], [facility]. 11-16-2021 15:51-0400 Body height 152.4 cm Serena Zack [employer] Work Phone: [employer] [facility].; [employer] 11-16-2021 15:51-0400 Body mass index (BMI) [Ratio] 22.46 kg/m2 Serena Zack [employer] Work Phone: [employer] 11-16-2021 15:51-0400 Body surface area Derived from formula 1.48 m2 Serena Zack [employer] Work Phone: [employer] [facility].; [employer], [facility]. 11-16-2021 15:51-0400 Body weight 52.16 kg Serena Zack [employer] Work Phone: [employer].; [employer], [employer]. 11-16-2021 15:51-0400 Diastolic blood pressure 79 mm[Hg] Serena Zack [employer] Work Phone: [employer].; [employer], [employer]. 11-16-2021 15:51-0400 Heart rate 88 /min Serena Zack [employer] Work Phone: [employer] [facility].; [employer]. 11-16-2021 15:51-0400 Systolic blood pressure 135 mm[Hg] Serena Zack [employer] Work Phone: [employer].; [employer] 07-08-2021 10:26-0400 Body height 152.4 cm Serena Zack [employer] Work Phone: [employer].; [employer] 07-08-2021 10:26-0400 Body mass index (BMI) [Ratio] 22.46 kg/m2 Serena Zack [employer] Work Phone: [employer].; [employer]. 07-08-2021 10:26-0400 Body surface area Derived from formula 1.48 m2 Serena Zack [employer] Work Phone: [employer].; [employer]. 07-08-2021 10:26-0400 Body weight 52.16 kg Serena Zack [employer] Work Phone: [employer].; [employer]. 07-08-2021 10:26-0400 Diastolic blood pressure 88 mm[Hg] Serena Zack [employer] Work Phone: [employer].; [employer]. 07-08-2021 10:26-0400 Systolic blood pressure 160 mm[Hg] Serena Zack [employer] Work Phone: [employer].; [employer]. 01-05-2021 10:22-0500 Body height 152.4 cm Serena Zack [employer] Work Phone: [employer].; [employer]. 01-05-2021 10:22-0500 Body mass index (BMI) [Ratio] 22.46 kg/m2 Serena Zack [employer] Work Phone: [employer].; [employer]. 01-05-2021 10:22-0500 Body surface area Derived from formula 1.48 m2 Serena Zack [employer] Work Phone: [employer].; [employer]. 01-05-2021 10:22-0500 Body weight 52.16 kg Serena Zack [employer] Work Phone: [employer].; [employer]. 01-05-2021 10:22-0500 Diastolic blood pressure 86 mm[Hg] Serena Zack [employer] Work Phone: [employer].; [employer]. 01-05-2021 10:22-0500 Heart rate 90 /min Serena Zack [employer] Work Phone: [employer].; [employer]. 01-05-2021 10:22-0500 Systolic blood pressure 151 mm[Hg] Serena Zack [employer] Work Phone: [employer].; [employer]. 08-06-2020 11:07-0400 Body height 152.4 cm Serena Zack [employer] Work Phone: [employer].; [employer]. 08-06-2020 11:07-0400 Body mass index (BMI) [Ratio] 23.44 kg/m2 Serena Zack [employer] Work Phone: [employer].; [employer]. 08-06-2020 11:07-0400 Body surface area Derived from formula 1.5 m2 Serena Zack [employer] Work Phone: [employer].; [employer]. 08-06-2020 11:07-0400 Body weight 54.43 kg Serena Zack [employer] Work Phone: [employer].; [employer]. 08-06-2020 11:07-0400 Diastolic blood pressure 84 mm[Hg] Serena Zack [employer] Work Phone: [employer].; [employer]. 08-06-2020 11:07-0400 Heart rate 79 /min Serena Zack [employer] Work Phone: [employer].; [employer] 08-06-2020 11:07-0400 Systolic blood pressure 154 mm[Hg] Serena Zack [employer] Work Phone: [employer].; [employer] 07-28-2020 10:29-0400 Body weight 54.43 kg Serena Zack [employer] Work Phone: [employer].; [employer]. 07-28-2020 10:29-0400 Diastolic blood pressure 82 mm[Hg] Serena Zack [employer] Work Phone: [employer].; [employer]. 07-28-2020 10:29-0400 Heart rate 80 /min Serena Zack [employer] Work Phone: [employer].; [employer]. 07-28-2020 10:29-0400 Systolic blood pressure 157 mm[Hg] Serena Zack [employer] Work Phone: [employer].; [employer]. 06-30-2020 10:23-0400 Body height 152.4 cm Serena Zack [employer] Work Phone: [employer]. 06-30-2020 10:23-0400 Body mass index (BMI) [Ratio] 23.24 kg/m2 Serena Zack [employer] Work Phone: [employer].; [employer] 06-30-2020 10:23-0400 Body surface area Derived from formula 1.5 m2 Serena Zack [employer] Work Phone: [employer].; [employer]. 06-30-2020 10:23-0400 Body weight 53.98 kg Serena Zack [employer] Work Phone: [employer].; [employer]. 06-30-2020 10:23-0400 Diastolic blood pressure 107 mm[Hg] Serena Zack [employer] Work Phone: [employer].; [employer]. 06-30-2020 10:23-0400 Heart rate 87 /min Serena Zack [employer] Work Phone: [employer]. 06-30-2020 10:23-0400 Systolic blood pressure 177 mm[Hg] Serena Zack [employer] Work Phone: [employer].; [employer]. 12-31-2019 09:48-0500 Body height 152.4 cm Serena Zack [employer] Work Phone: [employer].; [employer]. 12-31-2019 09:48-0500 Body mass index (BMI) [Ratio] 21.29 kg/m2 Serena Zack [employer] Work Phone: [employer].; [employer]. 12-31-2019 09:48-0500 Body surface area Derived from formula 1.44 m2 Serena Zack [employer] Work Phone: [employer].; [employer]. 12-31-2019 09:48-0500 Body weight 49.44 kg Serena Zack [employer] Work Phone: [employer]. 12-31-2019 09:48-0500 Diastolic blood pressure 87 mm[Hg] Serena Zack [employer] Work Phone: [employer].; [employer]. 12-31-2019 09:48-0500 Heart rate 98 /min Serena Zack [employer] Work Phone: [employer].; [employer]. 12-31-2019 09:48-0500 Systolic blood pressure 144 mm[Hg] Serena Zack [employer] Work Phone: [employer].; [employer]. 10-01-2019 09:13-0400 Body height 157.48 cm Serena Zack [employer] Work Phone: [employer].; [employer]. 10-01-2019 09:13-0400 Body mass index (BMI) [Ratio] 19.75 kg/m2 Serena Zack [employer] Work Phone: [employer].; [employer]. 10-01-2019 09:13-0400 Body surface area Derived from formula 1.47 m2 Serena Zack [employer] Work Phone: [employer].; [employer] 10-01-2019 09:13-0400 Body weight 48.99 kg Serena Zack [employer] Work Phone: [employer]. 10-01-2019 09:13-0400 Diastolic blood pressure 99 mm[Hg] Serena Zack [employer] Work Phone: [employer]. 10-01-2019 09:13-0400 Heart rate 73 /min Serena Zack [employer] Work Phone: [employer]. 10-01-2019 09:13-0400 Systolic blood pressure 177 mm[Hg] Serena Zack [employer] Work Phone: [employer].; [employer]. 06-28-2019 11:35-0400 Diastolic blood pressure 87 mm[Hg] Chico Collier MD Work Phone: [employer].; [employer]. 06-28-2019 11:35-0400 Systolic blood pressure 150 mm[Hg] Chico Collier MD Work Phone: [employer].; [employer]. 06-28-2019 10:21-0400 Body height 157.48 cm Serena Zack [employer] Work Phone: [employer].; [employer] 06-28-2019 10:21-0400 Body mass index (BMI) [Ratio] 21.22 kg/m2 Serena Zack [employer] Work Phone: [employer].; [employer] 06-28-2019 10:21-0400 Body surface area Derived from formula 1.52 m2 Serena Zack [employer] Work Phone: [employer]. 06-28-2019 10:21-0400 Body weight 52.62 kg Serena Zack [employer] Work Phone: [employer]. 06-28-2019 10:21-0400 Diastolic blood pressure 91 mm[Hg] Serena Zack [employer] Work Phone: [employer]. 06-28-2019 10:21-0400 Heart rate 78 /min Serena Zack [employer] Work Phone: [employer].; [employer]. 06-28-2019 10:21-0400 Systolic blood pressure 169 mm[Hg] Serena Zack [employer] Work Phone: [employer].; [employer]. 12-28-2018 09:51-0500 Body height 157.48 cm Serena Zack [employer] Work Phone: [employer].; [employer]. 12-28-2018 09:51-0500 Body mass index (BMI) [Ratio] 20.48 kg/m2 Serena Zack [employer] Work Phone: [employer]. 12-28-2018 09:51-0500 Body surface area Derived from formula 1.49 m2 Serena Zack [employer] Work Phone: [employer].; [employer]. 12-28-2018 09:51-0500 Body weight 50.8 kg Serenaakshat Dumonty [employer] Work Phone: [employer].; [employer] 12-28-2018 09:51-0500 Diastolic blood pressure 81 mm[Hg] Serena Zack [employer] Work Phone: [employer].; [employer] 12-28-2018 09:51-0500 Heart rate 70 /min Serena Zack [employer] Work Phone: [employer]. 12-28-2018 09:51-0500 Systolic blood pressure 145 mm[Hg] Serena Dumonty [employer] Work Phone: [employer].; [employer] 12-23-2017 09:42-0500 Body height 157.48 cm Serena Dumonty [employer] Work Phone: [employer]. 12-23-2017 09:42-0500 Body mass index (BMI) [Ratio] 20.3 kg/m2 Serena Zack [employer] Work Phone: [employer]. 12-23-2017 09:42-0500 Body surface area Derived from formula 1.49 m2 Serena Zack [employer] Work Phone: [employer].; [employer]. 12-23-2017 09:42-0500 Body weight 50.35 kg Serenaakshat Dumonty [employer] Work Phone: [employer].; [employer] 12-23-2017 09:42-0500 Diastolic blood pressure 89 mm[Hg] Serena Zack [employer] Work Phone: [employer]. 12-23-2017 09:42-0500 Heart rate 71 /min Serena Zack [employer] Work Phone: [employer].; [employer] 12-23-2017 09:42-0500 Systolic blood pressure 148 mm[Hg] Serena Zack [employer] Work Phone: [employer] 09-19-2017 11:14-0400 Body height 157.48 cm Serena Zack [employer] Work Phone: [employer].; [employer] 09-19-2017 11:14-0400 Body mass index (BMI) [Ratio] 20.12 kg/m2 Serena Zack [employer] Work Phone: [employer] 09-19-2017 11:14-0400 Body surface area Derived from formula 1.48 m2 Serena Zack [employer] Work Phone: [employer].; [employer] 09-19-2017 11:14-0400 Body weight 49.9 kg Serena Zack [employer] Work Phone: [employer].; [employer] 09-19-2017 11:14-0400 Diastolic blood pressure 90 mm[Hg] Serena Zack [employer] Work Phone: [employer].; [employer] 09-19-2017 11:14-0400 Heart rate 71 /min Serena Zack [employer] Work Phone: [employer]. 09-19-2017 11:14-0400 Systolic blood pressure 152 mm[Hg] Serena Zack [employer] Work Phone: [employer].; [employer] 09-05-2017 09:00-0400 Body height 157.48 cm Serena Zack [employer] Work Phone: [employer].; [employer]. 09-05-2017 09:00-0400 Body mass index (BMI) [Ratio] 20.48 kg/m2 Serena Zack [employer] Work Phone: [employer].; [employer] 09-05-2017 09:00-0400 Body surface area Derived from formula 1.49 m2 Serena Zack [employer] Work Phone: [employer].; [employer] 09-05-2017 09:00-0400 Body weight 50.8 kg Serena Zack [employer] Work Phone: [employer].; [employer]. 09-05-2017 09:00-0400 Diastolic blood pressure 83 mm[Hg] Serena Zack [employer] Work Phone: [employer].; [employer]. 09-05-2017 09:00-0400 Heart rate 65 /min Serena Zack [employer] Work Phone: [employer].; [employer]. 09-05-2017 09:00-0400 Systolic blood pressure 150 mm[Hg] Serena Zack [employer] Work Phone: [employer].; [employer] 08-29-2017 08:59-0400 Body height 157.48 cm Serena Zack [employer] Work Phone: [employer].; [employer]. 08-29-2017 08:59-0400 Body mass index (BMI) [Ratio] 20.48 kg/m2 Serena Zack [employer] Work Phone: [employer].; [employer]. 08-29-2017 08:59-0400 Body surface area Derived from formula 1.49 m2 Serena Zack [employer] Work Phone: [employer].; [employer]. 08-29-2017 08:59-0400 Body weight 50.8 kg Serena Zack [employer] Work Phone: [employer].; [employer] 08-29-2017 08:59-0400 Diastolic blood pressure 91 mm[Hg] Serena Zack [employer] Work Phone: [employer].; [employer] 08-29-2017 08:59-0400 Heart rate 75 /min Serena Zack [employer] Work Phone: [employer].; [employer] 08-29-2017 08:59-0400 Systolic blood pressure 161 mm[Hg] Serena Zack [employer] Work Phone: [employer].; [employer] 06-24-2017 10:32-0400 Body height 157.48 cm Serena Zack [employer] Work Phone: [employer].; [employer] 06-24-2017 10:32-0400 Body mass index (BMI) [Ratio] 20.3 kg/m2 Serena Zack [employer] Work Phone: [employer].; [employer]. 06-24-2017 10:32-0400 Body surface area Derived from formula 1.49 m2 Serena Zack [employer] Work Phone: [employer].; [employer] 06-24-2017 10:32-0400 Body weight 50.35 kg Serena Zack [employer] Work Phone: [employer].; [employer] 06-24-2017 10:32-0400 Diastolic blood pressure 94 mm[Hg] Serena Zack [employer] Work Phone: [employer].; [employer]. 06-24-2017 10:32-0400 Heart rate 77 /min Serena Zack [employer] Work Phone: [employer].; [employer]. 06-24-2017 10:32-0400 Systolic blood pressure 175 mm[Hg] Serena Zack [employer] Work Phone: [employer]. 03-24-2017 10:35-0500 Body height 157.48 cm Neilee L Vess [employer]. 03-24-2017 10:35-0500 Body mass index (BMI) [Ratio] 20.12 kg/m2 Neilee L Vess [employer]. 03-24-2017 10:35-0500 Body surface area Derived from formula 1.48 m2 Neilee L Vess [employer]. 03-24-2017 10:35-0500 Body weight 49.9 kg Neilee L Vess [employer]. 03-24-2017 10:35-0500 Diastolic blood pressure 80 mm[Hg] Neilee L Vess [employer]. 03-24-2017 10:35-0500 Heart rate 80 /min Neilee L Vess [employer]. 03-24-2017 10:35-0500 Systolic blood pressure 144 mm[Hg] Neilee L Vess [employer]. 12-22-2016 09:49-0500 Body height 157.48 cm Serena Zack [employer] Work Phone: [employer]. 12-22-2016 09:49-0500 Body mass index (BMI) [Ratio] 21.03 kg/m2 Serena Zack [employer] Work Phone: [employer]. 12-22-2016 09:49-0500 Body surface area Derived from formula 1.51 m2 Serena Zack [employer] Work Phone: [employer].; [employer]. 12-22-2016 09:49-0500 Body weight 52.16 kg Serena Zack [employer] Work Phone: [employer] 12-22-2016 09:49-0500 Diastolic blood pressure 91 mm[Hg] Serena Zack [employer] Work Phone: [employer] 12-22-2016 09:49-0500 Heart rate 77 /min Serena Zack [employer] Work Phone: [employer] 12-22-2016 09:49-0500 Systolic blood pressure 148 mm[Hg] Serena Zack [employer] Work Phone: [employer] 07-29-2016 09:04-0400 Body height 157.48 cm Neilee L Vess [employer] 07-29-2016 09:04-0400 Body mass index (BMI) [Ratio] 21.58 kg/m2 Neilee L Vess [employer] 07-29-2016 09:04-0400 Body surface area Derived from formula 1.53 m2 Neilee L Vess [employer] 07-29-2016 09:04-0400 Body weight 53.52 kg Neilee L Vess [employer] 07-29-2016 09:04-0400 Diastolic blood pressure 85 mm[Hg] Neilee L Vess [employer]. 07-29-2016 09:04-0400 Heart rate 70 /min Neilee L Vess [employer] 07-29-2016 09:04-0400 Systolic blood pressure 154 mm[Hg] Neilee L Vess [employer] 12-22-2015 09:53-0500 Body height 157.48 cm Serena Zack [employer] Work Phone: [employer] 12-22-2015 09:53-0500 Body mass index (BMI) [Ratio] 23.59 kg/m2 Serena Zack [employer] Work Phone: [employer].; [employer] 12-22-2015 09:53-0500 Body surface area Derived from formula 1.59 m2 Serena Zack [employer] Work Phone: [employer].; [employer]. 12-22-2015 09:53-0500 Body weight 58.51 kg Serena Zack [employer] Work Phone: [employer].; [employer]. 12-22-2015 09:53-0500 Diastolic blood pressure 92 mm[Hg] Serena Zack [employer] Work Phone: [employer].; [employer]. 12-22-2015 09:53-0500 Heart rate 81 /min Serena Zack [employer] Work Phone: [employer].; [employer]. 12-22-2015 09:53-0500 Systolic blood pressure 138 mm[Hg] Serena Zack [employer] Work Phone: [employer].; [employer]. 05-19-2015 10:42-0400 Body height 157.48 cm Serena Zack [employer] Work Phone: [employer].; [employer]. 05-19-2015 10:42-0400 Body mass index (BMI) [Ratio] 25.61 kg/m2 Serena Zack [employer] Work Phone: [employer]. 05-19-2015 10:42-0400 Body surface area Derived from formula 1.64 m2 Serena Zack [employer] Work Phone: [employer].; [employer]. 05-19-2015 10:42-0400 Body weight 63.5 kg Serena Zack [employer] Work Phone: [employer]. 05-19-2015 10:42-0400 Diastolic blood pressure 91 mm[Hg] Serena Zack [employer] Work Phone: [employer] 05-19-2015 10:42-0400 Heart rate 71 /min Serena Zack [employer] Work Phone: [employer] 05-19-2015 10:42-0400 Systolic blood pressure 180 mm[Hg] Serena Zack [employer] Work Phone: [employer] 11-28-2014 10:00-0400 Body height 157.48 cm Neilee L Vess [employer], [employer] 11-28-2014 10:00-0400 Body mass index (BMI) [Ratio] 24.69 kg/m2 Neilee L Vess [employer] 11-28-2014 10:00-0400 Body surface area Derived from formula 1.62 m2 Neilee L Vess [employer] 11-28-2014 10:00-0400 Body weight 61.24 kg Neilee L Vess [employer]. 11-28-2014 10:00-0400 Diastolic blood pressure 78 mm[Hg] Neilee L Vess [employer]. 11-28-2014 10:00-0400 Heart rate 69 /min Neilee L Vess [employer]. 11-28-2014 10:00-0400 Systolic blood pressure 152 mm[Hg] Neilee L Vess [employer] 05-29-2014 16:15-0400 Body height 157.48 cm Serena Zack [employer] Work Phone: [employer] 05-29-2014 16:15-0400 Body mass index (BMI) [Ratio] 26.52 kg/m2 Serena Zack [employer] Work Phone: [employer]. 05-29-2014 16:15-0400 Body surface area Derived from formula 1.67 m2 Serena Zack [employer] Work Phone: [employer]. 05-29-2014 16:15-0400 Body weight 65.77 kg Serena Zack [employer] Work Phone: [employer]. 05-29-2014 16:15-0400 Diastolic blood pressure 97 mm[Hg] Serena Zack [employer] Work Phone: [employer]. 05-29-2014 16:15-0400 Heart rate 72 /min Serena Zack [employer] Work Phone: [employer].; [employer]. 05-29-2014 16:15-0400 Systolic blood pressure 192 mm[Hg] Serena Zack [employer] Work Phone: [employer]. 11-22-2013 09:50-0400 Body height 157.48 cm Neilee L Vess [employer] 11-22-2013 09:50-0400 Body mass index (BMI) [Ratio] 25.97 kg/m2 Neilee L Vess [employer]. 11-22-2013 09:50-0400 Body surface area Derived from formula 1.65 m2 Neilee L Vess [employer]. 11-22-2013 09:50-0400 Body weight 64.41 kg Neilee L Vess [employer]. 11-22-2013 09:50-0400 Diastolic blood pressure 82 mm[Hg] Neilee L Vess [employer] [facility] [employer] [facility]. 11-22-2013 09:50-0400 Heart rate 75 /min Neilee L Vess [employer] [facility].; [employer] [facility]. 11-22-2013 09:50-0400 Systolic blood pressure 145 mm[Hg] Neilee L Vess [employer] [facility].; [employer] [facility]. 11-02-2012 13:58-0400 Body height 157.48 cm Neilee L Vess [employer] [facility].; [employer] 11-02-2012 13:58-0400 Body mass index (BMI) [Ratio] 24.69 kg/m2 Neilee L Vess [employer] 11-02-2012 13:58-0400 Body surface area Derived from formula 1.62 m2 Neilee L Vess [employer] [facility].; [employer] 11-02-2012 13:58-0400 Body weight 61.24 kg Neilee L Vess [employer] 11-02-2012 13:58-0400 Diastolic blood pressure 83 mm[Hg] Neilee L Vess [employer] 11-02-2012 13:58-0400 Heart rate 65 /min Neilee L Vess [employer] [facility].; [employer]. 11-02-2012 13:58-0400 Systolic blood pressure 169 mm[Hg] Neilee L Vess [employer] [facility].; [employer]. 09-09-2011 09:57-0400 Body height 157.48 cm Neilee L Vess [employer] 09-09-2011 09:57-0400 Body mass index (BMI) [Ratio] 23.41 kg/m2 Neilee L Vess [employer] 09-09-2011 09:57-0400 Body surface area Derived from formula 1.58 m2 Neilee L Vess [employer] [facility].; [employer] [facility]. 09-09-2011 09:57-0400 Body weight 58.06 kg Neilee L Vess [employer] [facility].; [employer] 09-09-2011 09:57-0400 Diastolic blood pressure 79 mm[Hg] Neilee L Vess [employer] [facility].; [employer] [facility]. 09-09-2011 09:57-0400 Heart rate 61 /min Neilee L Vess [employer] [facility].; [employer] 09-09-2011 09:57-0400 Systolic blood pressure 145 mm[Hg] Neilee L Vess [employer] [facility].; [employer] 08-26-2010 10:21-0400 Body height 160.02 cm Serena Zack [employer] Work Phone: [employer].; [employer] 08-26-2010 10:21-0400 Body mass index (BMI) [Ratio] 22.32 kg/m2 Serena Zack [employer] Work Phone: [employer] 08-26-2010 10:21-0400 Body surface area Derived from formula 1.59 m2 Serena Zack [employer] Work Phone: [employer].; [employer] 08-26-2010 10:21-0400 Body weight 57.15 kg Serena Zack [employer] Work Phone: [employer].; [employer] 08-26-2010 10:21-0400 Diastolic blood pressure 81 mm[Hg] Serena Zack [employer] Work Phone: [employer].; [employer] 08-26-2010 10:21-0400 Heart rate 58 /min Serena Zack [employer] Work Phone: [employer].; [facility] 08-26-2010 10:21-0400 Systolic blood pressure 138 mm[Hg] Serena Dixon LPN Work Phone: [facility].; [facility] Encounters Encounter Date Encounter Type Care Provider Facility Start: 09-13-2024 End: 09-13-[address] Joel Muniz MD Work Phone: -[facility] Start: 09-13-2024 End: 09-13-2024 Patient encounter procedure Jennifer Argueta [employer] -[facility] Work Phone: Start: 09-13-2024 End: 09-13-2024 ambulatory Jennifer Argueta Facility:[facility] Start: 09-03-2024 End: 09-03-2024 Patient encounter procedure Jennifer Argueta [employer] -[facility] Work Phone: Start: 09-03-2024 End: 09-03-[address] Joel Muniz MD Work Phone: -[facility] Start: 08-17-2024 End: 08-17-2024 ambulatory RAHUL SHETTY DO Facility:[facility] Start: 08-17-2024 End: 08-17-2024 Patient encounter procedure RAHUL SHETTY DO [facility] Start: 08-15-2024 ambulatory Rahul Shetty Facility: [facility] Start: 08-15-[address] Rahul isaac MD -[facility] Work Phone: Start: 08-02-2024 ambulatory Rahul Shetty Facility: [facility] Start: 08-02-[address] Rahul isaac DO -[facility] Work Phone: Start: 07-31-2024 ambulatory Rahul SAAVEDRA Facil ity:[facility] Start: 07-31-[address] Rahul isaac MD -[facility] Work Phone: Start: 07-30-2024 ambulatory Rahul SAAVEDRA Facil ity:[facility] Start: 07-30-[address] Rahul isaac MD -[facility] Work Phone: Start: 07-27-2024 End: 07-27-[address] Jose Matthews MD -[facility] Work Phone: Start: 07-27-2024 End: 07-27-[address] Joel Muniz MD Work Phone: [facility] Work Phone: Start: 07-27-[address] Rahul isaac MD -[facility] Work Phone: Start: 07-13-2024 End: 07-13-[address] Jose Matthews MD -[facility] Work Phone: Start: 07-13-2024 End: 07-13-[address] Joel Muniz MD Work Phone: [facility] Work Phone: Start: 07-06-2024 End: 07-06-[address] Jose Matthews MD -[facility] Work Phone: Start: 07-06-2024 End: 07-06-[address] Joel Muniz MD Work Phone: [facility] Work Phone: Start: 07-03-2024 End: 07-03-2024 Patient encounter procedure Barbara PEREIRA -[facility] Work Phone: Start: 07-03-2024 End: 07-03-[address] Joel Muniz MD Work Phone: [facility] Work Phone: Start: 07-03-2024 End: 07-03-[address] Rahul Shetty MD -[facility] Work Phone: Start: 07-03-[address] Rahul isaac MD -[facility] Work Phone: Start: 07-03-2024 End: 07-03-2024 ambulatory Rahul SAAVEDRA Facility:[facility] Start: 06-29-2024 ambulatory Rahul SAAVEDRA Facil ity:[facility] Start: 06-29-[address] [facility] Work Phone: Start: 06-28-2024 End: 06-28-[address] Jose Matthews MD -[facility] Work Phone: Start: 06-28-2024 End: 06-28-[address] Joel Muniz MD Work Phone: [facility] Work Phone: Start: 06-28-2024 End: 06-28-[address] Rahul Ya [facility] Work Phone: Start: 06-28-[address] Rahul Ya [facility] Work Phone: Start: 06-27-2024 End: 06-28-[address] Joel Muniz MD Work Phone: [facility] Work Phone: Start: 06-27-2024 End: 06-27-[address] Rahul Ya [facility] Work Phone: Start: 06-27-[address] Rahul Ya [facility] Work Phone: Start: 06-27-2024 End: 06-27-2024 ambulatory Yahaira Winn Facility:[facility] Start: 06-25-2024 End: 06-26-2024 Emergency department patient visit Dr. Joel Muniz MD Work Phone: -Emergency Department Work Phone: Start: 03-07-2024 ambulatory Stan Green Facility:[facility] Start: 02-06-2024 End: 02-06-2024 Chico Collier MD Work Phone: [facility] Start: 12-10-2023 ambulatory Stan Green Facility:[facility] Start: 2023 End: 2023 Chico Collier MD Work Phone: [employer] Start: 04-07-2023 End: 04-07-2023 ambulatory [facility] Work Phone: Start: 04-07-2023 End: 04-07-2023 Patient encounter procedure [facility], [facility] Work Phone: Start: 03-15-2023 End: 03-15-2023 Chico Collier MD Work Phone: [employer] Start: 03-15-2023 Chico mercado MD Work Phone: [employer] Start: 03-09-2023 End: 03-09-2023 Chico Collier MD Work Phone: [employer] Start: 02-15-2023 End: 03-03-2023 Evaluation and management of inpatient STAN GARCIA DO Facility:R Start: 02-15-2023 End: 03-03-2023 Evaluation and management of inpatient STAN DOYLESCARLET HENLEY [facility] Start: 02-15-[address] CHICO COLLIER MD Facility:A Start: 02-08-2023 End: 02-15-2023 Evaluation and management of inpatient DR CHICO COLLIER MD Facility:A Start: 02-08-2023 End: 02-15-2023 Evaluation and management of inpatient DR KATINA VALDIVIA MD [facility] Start: 02-08-2023 End: 02-08-2023 Emergency department patient visit GREY CONNOR [facility] Start: 01-27-2023 End: 01-27-2023 Chico Collier MD Work Phone: [employer] Start: 01-26-2023 End: 01-26-2023 ambulatory CHICO EKATERINA [facility] Start: 01-26-2023 End: 01-26-2023 Office outpatient visit 15 minutes Chico Collier MD Work Phone: [employer] Start: 01-12-2023 End: 01-14-2023 Patient encounter status Chico Collier MD Work Phone: [employer]; [employer] Start: 01-12-2023 End: 01-14-2023 Chico Collier MD Work Phone: [employer] Start: 12-27-2022 End: 12-27-2022 Chico Collier MD Work Phone: [employer] Start: 12-08-2022 End: 12-14-2022 Chico Collier MD Work Phone: [employer] Start: 06-14-2022 End: 06-14-2022 Chico Collier MD Work Phone: [employer] Start: 06-10-2022 End: 06-11-2022 Emergency department patient visit CHICO EKATERINA [facility] Start: 05-21-2022 End: 05-21-2022 Chico Collier MD Work Phone: [employer] Start: 05-19-2022 End: 05-19-2022 Chico Collier MD Work Phone: [employer] Start: 05-19-2022 End: 05-19-2022 ambulatory CHICO COLLIER [facility] Start: 05-05-2022 End: 05-06-2022 Chico Collier MD Work Phone: [employer] Start: 04-30-2022 End: 04-30-2022 Chico Collier MD Work Phone: [employer] Start: 04-24-2022 End: 04-24-2022 Emergency department patient visit CHICO COLLIER [facility] Start: 01-28-2022 End: 01-28-2022 Chico Collier MD Work Phone: [employer] Start: 01-06-2022 End: 01-06-2022 Patient encounter status Chico Collier MD Work Phone: [employer]; [employer]. Start: 01-06-2022 End: 01-06-2022 Chico Collier MD Work Phone: [employer] Start: 12-28-2021 End: 12-28-2021 Chico Collier MD Work Phone: [employer] Start: 12-24-2021 End: 12-24-2021 Chico Collier MD Work Phone: [employer] Start: 11-18-2021 End: 11-18-2021 Chico Collier MD Work Phone: [employer] Start: 11-16-2021 End: 11-18-2021 Chico Collier MD Work Phone: [employer] Start: 07-08-2021 End: 07-08-2021 Chico Collier MD Work Phone: [employer] Start: 01-05-2021 End: 01-05-2021 Patient encounter status Chico Collier MD Work Phone: [employer]; [employer]. Start: 01-05-2021 End: 01-05-2021 Chico Collier MD Work Phone: [employer] Start: 08-06-2020 End: 08-06-2020 Chico Collier MD Work Phone: [employer] Start: 07-28-2020 End: 07-28-2020 Chico Collier MD Work Phone: [employer] Start: 07-28-2020 End: 07-28-2020 Chico Collier MD Work Phone: [employer] Start: 06-30-2020 End: 06-30-2020 Chico Collier MD Work Phone: [employer] Start: 12-31-2019 End: 12-31-2019 Patient encounter status Serena Dixon ALEX Work Phone: [employer]; [employer] Start: 12-31-2019 End: 12-31-2019 Chico Collier MD Work Phone: [employer] Start: 12-24-2019 End: 12-24-2019 Chico Collier MD Work Phone: [employer] Start: 11-27-2019 End: 11-28-2019 Chico Collier MD Work Phone: [employer] Start: 10-01-2019 End: 10-01-2019 Preprocedural examination done Chico Collier MD Work Phone: [employer]; [employer] Start: 10-01-2019 End: 10-01-2019 Chico Collier MD Work Phone: [employer] Start: 06-28-2019 End: 06-28-2019 Office outpatient visit 25 minutes Chico Collier MD Work Phone: [employer] Start: 06-28-2019 End: 06-28-2019 Chico Collier MD Work Phone: [employer] Start: 12-28-2018 End: 12-28-2018 Patient encounter status Chico Collier MD Work Phone: [employer]; [employer]. Start: 12-28-2018 End: 12-28-2018 Chico Collier MD Work Phone: [employer]. Start: 12-22-2018 End: 12-22-2018 Chico Collier MD Work Phone: [employer] Start: 11-23-2018 End: 11-24-2018 Chico Collier MD Work Phone: [employer] Start: 12-23-2017 End: 12-23-2017 Patient encounter status Chico Collier MD Work Phone: [employer]; [employer]. Start: 12-23-2017 End: 12-23-2017 Chico Collier MD Work Phone: [employer] Start: 12-14-2017 End: 12-14-2017 Chico Collier MD Work Phone: [employer]. Start: 11-17-2017 End: 11-17-2017 Chico Collier MD Work Phone: [employer]. Start: 09-19-2017 End: 09-19-2017 Chico Collier MD Work Phone: [employer] Start: 09-05-2017 End: 09-05-2017 Chico Collier MD Work Phone: [employer]. Start: 08-29-2017 End: 08-29-2017 Chico Collier MD Work Phone: [employer] Start: 06-24-2017 End: 06-24-2017 Chico Collier MD Work Phone: [employer]. Start: 06-09-2017 End: 06-09-2017 Chico Collier MD Work Phone: [employer] Start: 03-25-2017 End: 03-25-2017 Chico Collier MD Work Phone: [employer] Start: 03-24-2017 End: 03-24-2017 Chico Collier MD Work Phone: [employer]. Start: 12-23-2016 End: 12-23-2016 Chico Collier MD Work Phone: [employer] Start: 12-22-2016 End: 12-22-2016 Patient encounter status Chico Collier MD Work Phone: [employer]. Start: 12-22-2016 End: 12-22-2016 Chico Collier MD Work Phone: [employer]. Start: 12-13-2016 End: 12-13-2016 Chico Collier MD Work Phone: [employer]. Start: 11-05-2016 End: 11-08-2016 Chico Collier MD Work Phone: [employer]. Start: 08-06-2016 End: 08-06-2016 Chico Collier MD Work Phone: [employer]. Start: 07-29-2016 End: 07-29-2016 Chico Collier MD Work Phone: [employer] Start: 12-22-2015 End: 12-22-2015 Patient encounter status Chico Collier MD Work Phone: [employer]. Start: 12-22-2015 End: 12-22-2015 Chico Collier MD Work Phone: [employer]. Start: 12-03-2015 End: 12-03-2015 Chico Collier MD Work Phone: [employer]. Start: 11-03-2015 End: 11-03-2015 Chico Collier MD Work Phone: [employer] Start: 11-03-2015 End: 11-03-2015 Chico Collier MD Work Phone: [employer] Start: 06-11-2015 End: 06-11-2015 Chico Collier MD Work Phone: [employer]. Start: 06-06-2015 End: 06-06-2015 Chico Collier MD Work Phone: [employer] Start: 05-28-2015 End: 05-28-2015 Chico Collier MD Work Phone: [employer]. Start: 05-19-2015 End: 05-19-2015 Chico Collier MD Work Phone: [employer] Start: 11-28-2014 End: 11-28-2014 Patient encounter status Chico Collier MD Work Phone: [employer]. Start: 11-28-2014 End: 11-28-2014 Chico Collier MD Work Phone: [employer]. Start: 11-27-2014 End: 11-27-2014 Chico Collier MD Work Phone: [employer] Start: 11-21-2014 End: 11-21-2014 Chico Collier MD Work Phone: [employer] Start: 10-30-2014 End: 10-31-2014 Chico Collier MD Work Phone: [employer] Start: 10-30-2014 End: 10-30-2014 Chico Collier MD Work Phone: [employer] Start: 05-29-2014 End: 06-20-2014 Chico Collier MD Work Phone: [employer] Start: 11-22-2013 End: 11-22-2013 Patient encounter status Chico Collier MD Work Phone: [employer]. Start: 11-22-2013 End: 11-22-2013 Chico Collier MD Work Phone: [employer] Start: 11-14-2013 End: 11-14-2013 Chico Collier MD Work Phone: [employer]. Start: 10-23-2013 End: 10-24-2013 Chico Collier MD Work Phone: [employer] Start: 11-02-2012 End: 11-02-2012 Routine gynecological examination Chico Collier MD Work Phone: [employer]; [employer]. Start: 11-02-2012 End: 11-02-2012 Chico Collier MD Work Phone: [employer]. Start: 10-23-2012 End: 10-23-2012 Chico Collier MD Work Phone: [employer] Start: 10-05-2012 End: 10-05-2012 Chico Collier MD Work Phone: [employer] Start: 03-17-2012 End: 03-17-2012 Chico Collier MD Work Phone: [employer] Start: 03-13-2012 End: 03-13-2012 Chico Collier MD Work Phone: [employer] Start: 10-14-2011 End: 10-14-2011 Chico Collier MD Work Phone: [employer]. Start: 10-13-2011 End: 10-13-2011 Chico Collier MD Work Phone: [employer] Start: 09-09-2011 End: 09-09-2011 Chico Collier MD Work Phone: [employer]. Start: 08-06-2011 End: 08-06-2011 Chico Collier MD Work Phone: [employer] Start: 03-05-2011 End: 03-05-2011 Chico Collier MD Work Phone: [employer] Start: 02-26-2011 End: 02-26-2011 Chico Collier MD Work Phone: [employer]. Start: 02-22-2011 End: 02-22-2011 Chico Collier MD Work Phone: [employer]. Start: 08-26-2010 End: 08-26-2010 Routine gynecological examination Chico Collier MD Work Phone: [employer]. Start: 08-26-2010 End: 08-26-2010 Chico Collier MD Work Phone: [employer]. Start: 07-09-2010 End: 07-09-2010 Routine general medical examination at a [facility] Chico Collier MD Work Phone: [employer]. Start: 07-09-2010 End: 07-09-2010 Chico Collier MD Work Phone: [employer] Patient encounter status Serena Dixon LPN Work Phone: [employer]. Patient encounter status Serena Dixon [employer] Work Phone: [employer]. Procedures Date Procedure Procedure Detail Performing Clinician Start: 08-15-[address] Joel Muniz MD Work Phone: Start: 08-15-2024 Urnls dip stick/tabl et reagent auto microscopy Dr. Joel Muniz MD Work Phone: Start: 07-30-[address] Joel Muniz MD Work Phone: Start: 07-30-2024 Urnls dip stick/tabl et reagent auto microscopy Dr. Joel Muniz MD Work Phone: Start: 06-27-2024 Measurement of occul t blood [...] Comment: URIN ALYSIS Performed By: #### [id number] ####[facility],[address] [place] [address] Start: 01-26-2023 End: 01-26-2023 Radex hand minimum [...] Phone: Start: 02-07-2019 End: 02-07-2019 Serena Dixon LPN Work Phone: Start: 12-28-2018 End: 12-28-2018 Body [...] End: 01-04-2017 Bone density scan Serena Dixon LPN Work Phone: Start: 12-22-2016 End: 12-22-2016 Current [...] Microscopic examination of cervical Papanicolaou smear Serena Zack [employer] Work Phone: Start: 02-08-1996 End: 02-08-1996 Screening colonoscopy Tavia Leavitt [employer] Cholecystectomy Serena Zack [employer] Work Phone: H/O: hysterectomy Obi Moran on [employer] H/O: hysterectomy Chico leonard MD Work Phone: H/O: hysterectomy Chico leonard MD Work Phone: H/O: hysterectomy Chico leonard MD Work Phone: H/O: hysterectomy Chico leonard MD Work Phone: H/O: hysterectomy Serena Beac hy [employer] Work Phone: History of cataract extraction Obi Meier [employer] History of cataract extraction Chico Collier MD Work Phone: History of cataract extraction Serena Zack [employer] Work Phone: History of cholecystectomy Sofia Collier MD Work Phone: Total hysterectomy Serena Neli chi [employer] Work Phone: Vaccine refused by patient A gretchen Meier LPN Vaccine refused by patient Sofia Collier MD Work Phone: Vaccine refused by patient Sofia Collier MD Work Phone: Vaccine refused by patient Sofia Collier MD Work Phone: Vaccine refused by patient Sofia Collier MD Work Phone: Vaccine refused by patient Rosalba Dixon ALEX Work Phone: Plan of Treatment Date Care Activity Detail Author Start: 06-26-2024 [facility] Start: 06-25-2024 Simple rpr scalp/neck/ax/genit/trunk 7.6-12.5cm RPR S/N/AX/GEN/TRK7.6-12. 5CM [facility] Start: 2023 Blood count complete auto&auto difrntl wbc [facility], [employer] [facility], [employer]. Start: 2023 Comprehensive metabo lic panel [facility].; [employer] [facility], [facility]. Start: 2023 Lipid panel [facility], [facility].; [employer], [employer]. Start: 2023 Screening mammograph y bi 2-view breast inc [facility], [employer], [employer]. Start: 01-26-2023 Radex hand minimum 3 views [facility].; [employer], [employer] Start: 12-08-2022 Screening mammograph y bi 2-[facility] breast [facility] [employer], [employer]. Start: 12-24-2021 Screening mammograph y bi 2-view breast inc [facility] [employer], [employer] CBC W Auto Different ial panel - Blood [facility] Patient Education ED Laceration, All Closures [facility] Work Phone: Patient referral [facility] Work Phone: Immunizations Immunization Date Immunization Notes Care Provider Fa cili 06-25-2024 tetanus toxoid, reduced diphtheria toxoid, and acellular pertussis vaccine, adsorbed Dr. Joel Muniz MD Work Phone: [facility] 04-10-2020 Chico thakkar MD Work Phone: [facility]; [facility] 03-13-2020 Chico thakkar MD Work Phone: [facility]; [facility] 11-22-2013 Chico thakkar MD Work Phone: [facility] [facility] 11-22-2013 influenza, seasonal, injectable Chico Collier MD Work Phone: [facility]; [facility] 06-06-2006 tetanus toxoid, reduced diphtheria toxoid, and acellular pertussis vaccine, adsorbed Chico Collier MD Work Phone: [facility]; [facility] NEGATED: Highlighted row has not occurred! influenza, injectable, quadrivalent, contains preservative Chico Collier MD Work Phone: [facility]; [facility] NEGATED: Highlighted row has not occurred! pneumococcal conjugate vaccine, 13 valent Chico Collier MD Work Phone: [facility]; [facility] [employer]. NEGATED: Highlighted row has not occurred! pneumococcal polysaccharide vaccine, 23 valent Chico Collier MD Work Phone: [facility]; [facility] [employer]. NEGATED: Highlighted row has not occurred! zoster vaccine, live Chico Collier MD Work Phone: [facility]; [facility] [employer] Payers Date Payer Category Payer Medicare [id number] 2024 Private Health Insurance [id number] 2023 Self-pay [id number] 2022 Medicare [id number] 2022 Unknown [id number] 1945 Unknown [id number] 2.16.8 40.1.638952.3.579.2.651 1945 Unknown [id number] 2.16.8 40.1.362197.3.579.2.651 1946 Unknown [id number] 2.16.84 0.1.597930.3.579.2.651 1945 Unknown [id number] 2.16.84 0.1.845658.3.579.2.651 1945 Unknown [id number] 2.16.84 0.1.930226.3.579.2.651 1945 Unknown [id number] 2.16.8 40.1.364187.3.579.2.627 1945 Unknown [id number] 2.16.8 40.1.275290.3.579.2.627 1945 Unknown [id number] 2.16.8 40.1.939486.3.579.2.627 1946 Unknown [id number] 2.16. 840.1.194534.3.579.2.627 Unknown Unknown [id number] 2.16.8 40.1.383971.3.579.2.462 Unknown [id number] 2.16.8 40.1.139301.3.579.2.462 Unknown [id number] 2.16.8 40.1.915421.3.579.2.462 Unknown [id number] 2.16.8 40.1.505751.3.579.2.462 Unknown [id number] 2.16.8 40.1.124967.3.579.2.462 Unknown [id number] 2.16.8 40.1.311783.3.579.2.462 Unknown [id number] 2.16.8 40.1.605126.3.579.2.462 Unknown [id number] 2.16.8 40.1.455578.3.579.2.462 Unknown [id number] 2.16.8 40.1.227807.3.579.2.462 Unknown [id number] 2.16.8 40.1.880713.3.579.2.462 Unknown [id number] 2.16.8 40.1.197289.3.579.2.462 Unknown [id number] 2.16.8 40.1.279479.3.579.2.462 Unknown [id number] 2.16.8 40.1.946827.3.579.2.462 Unknown [id number] 2.16.8 40.1.305149.3.579.2.462 Unknown [id number] 2.16.8 40.1.390168.3.579.2.462 Unknown [id number] 2.16.8 40.1.350985.3.579.2.462 Unknown [id number] 2.16.8 40.1.103336.3.579.2.462 Unknown [id number] 2.16.8 40.1.244795.3.579.2.462 Unknown [id number] 2.16.8 40.1.144994.3.579.2.462 Unknown [id number] 2.16.8 40.1.313300.3.579.2.462 Unknown [id number] 2.16.8 40.1.587900.3.579.2.462 Social History Date Type Detail Facility [facility] [employer] [facility] Ret[employer]. [employer] [facility] Tobacco smoking status [facility] Start: 1945 Sex Assigned At Female A [facility] Start: 06-25-2024 End: 07-03-2024 Tobacco smoking status VAIS Never smoked tobacco (finding) [facility] Start: 02-08-2023 Sex Female (finding) [facility] Functional Status Date Assessment Result Facility 03-03-2023 Functional Status Room check performed Matilde se[facility] [place] 03-02-2023 Functional Status [facility] 03-02-2023 Functional Status [facility] 03-02-2023 Functional Status [facility] 03-02-2023 Functional Status 12 [facility] 03-01-2023 Functional Status [facility] 03-01-2023 Functional Status [facility] 03-01-2023 Functional Status [facility] 02-28-2023 Functional Status [facility] 02-28-2023 Functional Status [facility] 02-28-2023 Functional Status [facility] 02-28-2023 Functional Status [facility] 02-27-2023 Functional Status [facility] 02-25-2023 Functional Status Antiembolism S tocking Off/Removed bilateral knee high [facility] 02-24-2023 Functional Status [facility] 02-24-2023 Functional Status 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 - 02/09/23 [facility] 02-23-2023 Functional Status [facility] 02-22-2023 Functional Status Evening Snack Percent 1 00 [facility] 02-22-2023 Functional Status Hospital bed [facility] 02-21-2023 Functional Status [facility] 02-20-2023 Functional Status Orthotics, Device Worn Per Schedule Yes [facility] 02-19-2023 Functional Status [facility] 02-18-2023 Functional Status [facility] 02-18-2023 Functional Status [facility] 02-17-2023 Functional Status Independent [facility] 02-17-2023 Functional Status [facility] 02-16-2023 Functional Status Personal ADL [facility] 02-15-2023 Functional Status Sensory Deficits None A [facility] 02-15-2023 Functional Status Up to Chair Returned to bed [facility] 02-15-2023 Functional Status Room check performed [facility] 02-15-2023 Functional Status Supervised 1 [facility] 02-15-2023 Functional Status [facility] 02-15-2023 Functional Status Valid Kamiah Slip N/A [facility] 02-15-2023 Functional Status [facility] 02-14-2023 Functional Status bilateral knee high sabas lied/on [facility] 02-14-2023 Functional Status [facility] 02-14-2023 [facility]-14[facility] Functional Status [facility] 02-14-2023 Functional Status 7pm-7am [facility] 02-14-2023 Functional Status [facility] 02-13-2023 Functional Status [facility] 02-12-2023 Functional Status Beds/Devices Hospital b ed [facility] 02-12-2023 Functional Status [facility] 02-12-2023 Functional Status [facility] 02-11-2023 Functional Status [facility] 02-11-2023 Functional Status [facility] 02-10-2023 Functional Status [facility] 02-10-2023 Functional Status [facility] 02-10-2023 Functional Status 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 - 02/09/23 Daughter not present at time of OT evaluation but patient was better able to provide history this date and most 6 [facility] 02-10-2023 Functional Status Mod [facility] 02-09-2023 Functional Status Sensory Deficits None A [facility] 02-09-2023 Functional Status Living Situation Home w [facility] 02-09-2023 Functional Status [facility] Mental Status Date Assessment Result Facility 01-25-2024 Mental Status Oriented x 4 [facility] 03-02-2023 Mental Status [facility] 03-02-2023 Mental Status [facility] 02-26-2023 Mental Status [facility] 02-15-2023 [facility] Status [facility]15[facility] 02-14-[facility]23 [facility] 02-14-[facility]23 [facility] 02-14-[facility]23 [facility] Clinical Notes 02-08-2023 to 07-03-2024 Note Date & Type Note Facility 07-03-2024 Progress note [facility] 06-28-2024 Evaluation note Diagnosis Onset Date Resolution Laceration of forearm, left acute June 28, 2024 2 :25pm Anemia acute July 03, 2024 9:56am Occult blood positive stool acute July 03, 2024 9 :56am [facility] Work Phone: 1(127) 240-809705-22-2025 Evaluation note* Diagnosis Onset Date Resolution Status Admit Date Laceration of forearm, left inactive June 28, 2024 2:25pm Anemia acute July 03, 2024 9:56am Occult blood positive stool acute July 03, 2024 9:56am [facility] Work Phone: 1(119) 979-363905-22-2025 Evaluation note* Diagnosis Onset Date Resolution Status Admit Date Laceration of forearm, left inactive June 28, 2024 2:25pm Anemia acute July 03, 2024 9:56am Occult blood positive stool acute July 03, 2024 9:56am Laceration of forearm, left inactive July 06, 2024 2:14pm [facility] Work Phone: 1(556) 301-885005-22-2025 Evaluation note* Diagnosis Onset Date Resolution Status Admit Date Laceration of forearm, left inactive June 28, 2024 2:25pm Anemia acute July 03, 2024 9:56am Occult blood positive stool acute July 03, 2024 9:56am Laceration of forearm, left inactive July 06, 2024 2:14pm Laceration of forearm, left inactive July 13, 2024 1:56pm [facility] Work Phone: 1(958) 589-675605-22-2025 Evaluation note* Diagnosis Onset Date Resolution Status Admit Date Laceration of forearm, left inactive June 28, 2024 2:25pm Anemia acute July 03, 2024 9:56am Occult blood positive stool acute July 03, 2024 9:56am Laceration of forearm, left inactive July 06, 2024 2:14pm Laceration of forearm, left inactive July 13, 2024 1:56pm Dizziness acute July 27 9:16am Falls acute July 27 9:16am Laceration of forearm, left inactive July 27, 2024 9:16am Essential hypertension acute Ju ly 2024 3:30pm Orthostatic hypotension acute J shae 2024 3:30pm [facility] Work Phone: 1(248) 716-105905-22-2025 Evaluation note* Diagnosis Onset Date Resolution Status Admit Date Laceration of forearm, left inactive June 28, 2024 2:25pm Anemia acute July 03, 2024 9:56am Occult blood positive stool acute July 03, 2024 9:56am Laceration of forearm, left inactive July 06, 2024 2:14pm Laceration of forearm, left inactive July 13, 2024 1:56pm Dizziness acute July 27 9:16am Falls acute July 27 9:16am Laceration of forearm, left inactive July 27, 2024 9:16am Dizziness acute September 03 3:30pm Essential hypertension acute Ju ly 2024 3:30pm Orthostatic hypotension acute J shae 2024 3:30pm [facility] Work Phone: 1(316) 482-952405-19-2025 Radiology Diagnostic study note [facility] Imaging Services [address] [place] [address] Forearm 2 Views MR#: [id number] Acct: [id number] Name: ROSARIO MCNALLY Rep #: [id number] : 1945 F 78 From: Jess Rondon MD PCP: Dr. Yahaira Winn MD Status: REG ER Study:Forearm 2 Views Date of Exam: 06/07 11/01 Exam# [id number] Ordering Dr: Sofia Muniz MD PROCEDURE: FOREARM [...] Mild osteopenia slightly limits thisevaluation. Reading Location: [id number] CC: Dr. Yahaira Winn MD; Dr. 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: Signed [facility]01-25-2024 Nurse Progress note Nursing GG Entered On: 03/03/2023 9:32 EST Performed On: 03/03/2023 9:32 EST by Myrna West LPN Nursing GG's OT GG Grid Eating : Independent Myrna West LPN - 03/03/2023 9:32 EST Digitally Signed by Myrna West LPN on 03/03/2023 09:32 AM [facility] [id number] Note Discharge Instructions Thank you for allowing [...] EST Why: Orthopedic follow up - Where: [facility] [address] [place] [address] [phone] Follow Up with CHELSEA MARIN PA-C When 03/17/2023 12:10 PM EST Why: Neurology follow up - Where: [address] [address] [phone] Follow Up with CHICO COLLIER MD When 03/09/2023 01:40 PM EST Why: Take Discharge Instructions to Dr Visit - Where: [address] [place] [address] [place] [address]- [phone] Follow Up with URIAH BOCANEGRA MD, Neurosurgery When Only if needed Why: Neurosurgeon - Where: [address] [facility] [address] [facility] [place] [address]- [phone] The Following Activity and Diet Have Been [...] Signed By - Ordered -- 03/03/23 10:00:00 ESTNATALIO JULIE APRN-NICKIE Transfer of Care Prognosis - Ordered -- [...] by mouth Once a day Pickup at [facility] 1724 Unchanged carbidopa-levodopa (carbidopa-levodopa 25 mg-100 mg oral tablet) 1 tab(s) by mouth Four (4) times a day Pickup at [facility] 1724 Unchanged escitalopram (escitalopram 10 mg oral tablet) 1 tab(s) by mouth Once a day Pickup at [facility] 1724 Unchanged midodrine (midodrine 5 mg oral tablet) 1 tab(s) by mouth Three (3) times a day Pickup at [facility] 1724 Pharmacy Information [facility] 1724: [address], [place] [phone] What How Much When Comments Stop Taking [...] Follow these instructions at home: Medicines Take suhx-jdz-hkqnwsc and prescription medicines only as told by [...] 05/21/2013 Document Revised: 01/06/2018 Document Reviewed: 11/03/2017 Elsevier Patient Education 2020 [employer] Additional Information VACCINATE! IT SAVES LIVES! Members of the community who have not yet received the COVID-19 vaccine and would like to receive it can visit one of [facility] vaccine clinics. There are many vaccine clinic locations within the [facility]. For locations and available times, please visit [email or web address].coronavirus.[place].gov/. It is important to note that some COVID mobile vaccine clinics are held outdoors and may be canceled in rainy or stormy conditions. To learn more about pediatric vaccinations (ages 5-11), we invite you to visit the [employer] webpage. [email or web address]://[email or web address].[email or web address]/[email or web address]-Sohsa-Ytgtcqxnodk-Eaessztflh-Hxzfh-[email or web address] stions.htmlTo learn more about the COVID-19 vaccine, we invite you to visit the CDC website for a list of frequently asked questions.https://www.cdc.gov/coronavirus/2019-ncov/vaccines/faq.html [employer] Patient Portal Access Instructions: Stay connected with your healthcare team and access your personal medical information anytime with the [employer] Patient Portal. Please follow the directions below to create your [employer] account: 1.Access the email account you provided upon registration to the hospital/physician office.2.Look for an invitation email from [facility].3.Open the email and access the invitation link: AcceptInvitation to [employer].4.Fill in the required lujan to create your account. To access your account, visit [employer]One[employer]. Click the blue button labeled Access Patient [...] who you will allowto register on the [facility] Patient Portal for access to your information. You can also access the [facility] Patient Portal on the [facility] asbas. Simply click on Patient Portal and then log into your account. If you would like to receive a full copy of your medical records, please contact the [facility] Medical Records Department by calling [phone], Tuesday through Tuesday between 8 a.m. and [...] Call your local pharmacy or go to [email or web address] to find one close to you.3.Make use of household items: Use cat litter or old coffee grounds to dispose medications if other options arenot available. Mix your drugs with these household products, seal them in an airtight container andthrow it into the garbage. Call [facility]: [phone] to be sure your drugs can be [...] COPY. Signatures Patient Education Materials Subarachnoid Hemorrhage, Fnjk-vc-Lmkx Medication Leaflets My discharge plan and instructions have been reviewed and explained to me and I,ROSARIO MCNALLY understand my current condition and have read and understand these discharge instructions. I have received a written copy of the plan/instructions. If I have questions, I am aware that I should contact my doctor. 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 Signature: Date/Time: Relationship to Patient: Witness Name/Signature: Date/Time: [facility]rett [id number] Nurse Progress note Nursing GG Entered On: 03/02/2023 22:09 EST Performed On: 03/02/2023 22:09 EST by Saima Young LPN Nursing GG's OT GG Grid Eating : Independent Saima Young LPN - 03/02/2023 22:09 EST Digitally Signed by Saima Young LPN on 03/02/2023 10:09 PM [facility] [id number] Hospital Discharge instructions Patient Education 03/02/2023 18:57:13 Subarachnoid Hemorrhage, Kldv-qg-Gbyo Subarachnoid Hemorrhage Subarachnoid hemorrhage is bleeding between [...] Follow these instructions at home: Medicines Take ubas-ror-zwwrccs and prescription medicines only as told by [...] 05/21/2013 Document Revised: 01/06/2018 Document Reviewed: 11/03/2017 [employer] Patient Education 2020 [employer] Follow Up Care 02/15/2023 16:57:34 With:URIAH BOCANEGRA MD, Neurosurgery Address: [address] [facility] [address] [place] [address] [place] [address]- [phone] When: only if needed Comments:Neurosurgeon - With:CHICO COLLIER MD Address: [address] [place] [address] [place] [address] [phone] When:03/09/2023 13:40:00 Comments:Take Discharge Instructions to Dr Visit - With:CHELSEA MARIN PADora Address: [address] [facility] [address] [place] [address] [phone] When:03/17/2023 12:10:00 Comments:Neurology follow up - With:CHICO ELIZONDO MD, Orthopedic Address: [address] [address]- [phone] When:03/25/2023 14:00:00 Comments:Orthopedic follow up - [facility] 01-24-2024 Nurse Progress note Nursing GG Entered On: 03/02/2023 11:33 EST Performed On: 03/02/2023 11:33 EST by Myrna West LPN Nursing GG's OT GG Grid Eating : Independent Myrna West LPN - 03/02/2023 11:33 EST Digitally Signed by Myrna West LPN on 03/02/2023 11:33 AM [id number] Physical medicine and rehab Progress note Rehab Note Chief Complaint: Seeing this patient for reevaluation of therapy progress and subarachnoid hemorrhage, right wrist fracture History of Present Illness: Seeing this patient for reevaluation of therapy and subarachnoid hemorrhage. Patient participates in acute inpatient rehabilitation with PT, OT and ST services. 77-year-old female admitted to [facility] from [facility] stay 02/08 - 02/15 who is past medical history of Parkinson's, hypertension, lipidemia, depression, and right lower extremity weakness who originally presented [facility] and was transferred to [facility] after imaging showed subarachnoid hemorrhage. Patient [...] Goal is to transition to SNF in [place]. Denies any concerns about discharge. Tentative discharge [...] Rate80(MAR 01 20:32)80(MAR 01 20:32)80(MAR 01 20:32) OIO006(MAR 02 05:43)111(MAR 01 08:55)H 152(MAR 01 20:32) [...] ADLs and self-care. Plan respite ECF at [facility] in [place] with long-term goal return back home with [...] GARCIA DO on 03/02/2023 01:44 PM [facility]rett [id number] Note Subjective Patient states she is doing [...] right upper extremity, neurovascular check intact. VITALS FbjbnhGcmhUCDbbzwCKWeG9PVG4FgpiGq(kg) 03/01 20:3236.7--581835KP53/22 58.6 03/01 08:55----809189NR 03/01 05:3736.6--560564BV 02/28 21:0437.0--271984VO 02/28 18:32----84----RA 24 Hr Tmax: 36.7 at [...] tab(s), Tab, Oral, QID, 1st dose location: [facility], 1, 02/15/23 18:51:00 EST escitalopram Start: [...] IV Meds: None Problems (5) Lung nodule (7869837089) Orthostatic hypotension (11494832) Parkinson's disease (69671120) Right wrist fracture (5608026080) Subarachnoid hemorrhage (2705826784) ASSESSMENT/PLAN: Subarachnoid hemorrhage secondary to TBI after [...] IVAN CARDENAS DO on 03/03/2023 09:13 AM [facility]stx[facility]xx62-[facility]-2012 Physical medicine and rehab Progress note Rehab Note Chief Complaint: Seeing this patient for evaluation of therapy progress History of Present Illness: Seeing this patient for evaluation in therapy progress. Patient is participating in acute inpatient rehab services including PT/OT/TIRE RECAPPER. Patient status post hospitalizationat [facility] from 02/08 - 02/15 following a [...] discharging to an extended care facility, the [facility]. Tentative discharge date 03/03/2023. Medications Medication List [...] Rate84(FEB 28 21:04)84(FEB 28 18:32)84(FEB 28 18:32) WBT167(FEB 28 21:04)92(FEB 28 09:23)130(FEB 28 21:04) DBP72(FEB [...] the right wrist planning orthopedic follow-up at [facility]. Plan transition [facility] long-term goal return to supervision of [...] STAN GARCIA DO on 03/01/2023 03:38 PM [facility]rett [id number] Note Subjective Patient reports that she is [...] right upper extremity, neurovascular check intact. VITALS ErvtyvSdbvSUTcclaETJcF0ZRV4PxevWt(kg) 02/28 21:0437.0--829270BQ83/22 58.6 02/28 18:32----84----RA 02/28 15:0036.1--921875VR 02/28 09:2336.5--246297GU 02/28 05:5136.4--073320VF 24 Hr Tmax: 37.0 at 02/29 20: 36 Hr Tmax: 37.0 at 02/28 21:04 [...] tab(s), Tab, Oral, QID, 1st dose location: [facility], 1, 02/15/23 18:51:00 EST escitalopram Start: [...] PRN Meds: Al hydroxide/Mg hydroxide/simethicone (Maalox) Start: 02/15/23:: EST, Dose = 30 mL, Susp, Oral, q6h, PRN, Indigestion, 0, 02/15/23:: EST acetaminophen (Tylenol) Start: 02/15/23:: EST, Dose = 650 mg, = 2 tab(s), Oral, q4h, PRN, Muscle pain, 02/15/23:: EST docusate (Colace) Start: 02/15/23:: EST, Dose = 100 mg, = 1 cap(s), Oral, BID, PRN, Constipation, 02/15/23: EST glucagon (GlucaGen) Start: 02/15/23:: EST, Dose = 1 mg, = 1 mL, Intramuscular, AsDirected, PRN, Hypoglycemia, if unresponsive, NO IV ACCESS & blood glucose less than 70mg/dL. If still unresponsive after 2 minutes, REPEAT x1., 02/15/23:: EST glucose (Dextrose 50% IV Push) Start: 02/15/23:: EST, Dose = 12.5 gram(s), = 25 mL, IV Push,AsDirected, PRN, Hypoglycemia, if unresponsive WITH IV ACCESS & blood glucose less than 70mg/dL. If still unresponsive after 2 minutes, REPEAT x1., 02/15/23 17:27: EST glucose Start: 02/15/23:: EST, Dose = 16 gram(s), = 4 tab(s), Chewed, AsDirected, PRN, Hypoglycemia, DIABETIC PATIENT if responsive & blood glucose less than 70mg/dL. If blood glucose less than 70mg/dL after 15 minutes, REPEAT x1., 0, 02/15/23 17:2... glycerin (glycerin adult rectal suppository) Start: 02/15/23 17:27: EST, Dose = 1 supp, Supp, Rectal, Daily, PRN, Constipation, 02/15/23:27: EST magnesium hydroxide (Milk of Magnesia) Start: 01/09/24 17:27:00 EST, Dose = 30 mL, Susp-Oral, Oral,Daily, PRN, Constipation, 02/15/23 17:27:00 EST polyethylene glycol 3350 (Miralax Powder Packet) Start: 02/15/23 17:27:00 EST, Dose = 17 gram(s), =15 mL, Oral, qDay, PRN, Constipation, 02/15/23 17:27:00 EST One Time Meds: None Active IV Meds: None Problems (5) Lung nodule (7060800039) Orthostatic hypotension (57838434) Parkinson's disease (35616593) Right wrist fracture (8856250018) Subarachnoid hemorrhage (9087807347) ASSESSMENT/PLAN: Subarachnoid hemorrhage secondary to TBI after a recent fall. CT imaging revealing small arachnoid hemorrhage in the right supra lobe without mass effect or midline shift. Neurosurgical notes reviewed, conservative treatment, follow- up with them for further guidance, avoiding all antiplatelets anticoagulants NSAIDs. Follow up with neuro / Recurrent falls in the setting of orthostatic [...] and in the presence of Dr. Cardenas. Dr. Ronald Rivera, personally performed the services described in this documentation, as scribed byJanie RN in my presence and it is both accurate and complete. Digitally Signed by IVAN CARDENAS DO on 03/03/2023 09:21 AM [id number] Physical medicine and rehab Progress note Rehab Note Chief Complaint: Seeing this patient for evaluation of therapy progress History of Present Illness: Seeing this patient for evaluation in therapy progress. Patient is participating in acute inpatient rehab services including PT/OT/TIRE RECAPPER. Patient status post hospitalizationat [facility] from 02/08 - 02/15 following a [...] discharging to an extended care facility, the [facility]. Tentative discharge date 03/03/2023. Medications (14) Active [...] Rate92(FEB 27 09:19)92(FEB 27 09:19)92(FEB 27 09:19) EZO031(FEB 27 20:09)L 88(FEB 27 09:19)H 146(FEB 27 06:05) DBP74(FEB 27:09)L 58(FEB 27 09:19)82(FEB 27 06:05) Physical Exam: [...] on right wrist pending orthopedic follow-up with [facility] continue Plastizote splint. Plan transition to [facility] respite care March 03 ongoing home care [...] GARCIA DO on 02/28/2023 08:05 PM [facility]rett [id number] Note Subjective Patient voices no acute complaints [...] right upper extremity, neurovascular check intact. VITALS IycytmJivrEITqoahYOThD1VHQ2HzkqXh(kg) 02/27 06:0536.5--946474LV40/15 59.4 02/26 16:0036.6--301021BG 02/26 08:5236.8--947130LP 02/26 00:5636.8--956217BO 02/25 20:1636.1--------RA 24 Hr Tmax: 36.6 at [...] tab(s), Tab, Oral, QID, 1st dose location: [place] [address], 02/15/23 18:51:00 EST escitalopram Start: 02/16/23 9:00:00 [...] 02/15/23 17:27:00 EST docusate (Colace) Start: 02/15/23 17::00 EST, Dose = 100 mg, = 1 [...] IV Meds: None Problems (5) Lung nodule (1237019719) Orthostatic hypotension (33180034) Parkinson's disease (67444358) Right wrist fracture (5988398654) Subarachnoid hemorrhage (9075695955) ASSESSMENT/PLAN: 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 CONSULTING PSYCHOLOGIST: Aashish Muro, PhD. REASON FOR REFERRAL: Neuropsychological exam. HISTORY OF PRESENT ILLNESS: Ms. Mcnally is a 77-year-old right-handed white female admitted to [facility] from [facility] 02/15/2023 after falling down multiple steps. [...] Includes hypertension, hyperlipidemia, depression. 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 [...] some family history. Ms. Mcnally lives in [place] with her daughter Larisa and Larisa's , [...] time tags, but thought she was in [place] at a facility called [facility]. Verbal attention span is mildly impaired limited [...] later, she recalled only 1/5 words, a hszb-cg-imyrdxjw deficit score. EXECUTIVE FUNCTIONS: Verbal everyday reasoning based on the judgment test is intact, 8/10 points. Moderately impaired on cognitive estimates, another verbal reasoning measure, 3/6 items correct. Mildto moderately impaired on matrix reasoning, a visual reasoning measure, standard score of 5. Poor insight. Moderately slow on most tasks. CONCLUSIONS: Cognitive testing reveals hbyizkdq-om-efjqyv deficit in verbal memory, but normal visual memory. Normal verbal everyday reasoning, but moderately impaired cognitive estimates. Ajff-fd-agajmzgy deficit scores on the verbal and visual [...] right occipital subarachnoid hemorrhage, status post fall. Ldkn-ua-uqkaibmr cognitive deficits. 2. 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 3. Parkinson's disorder related cognitive symptoms, typically slowed thinking and attention. 4. Depression by chart review, on Lexapro. AASHISH MURO, PhD GM/NTS JOB#: [id number] DICTATION ID#: [id number] Digitally Signed by AASHISH MURO PhD on 02/23/2023 02:29 PM [facility]rett[facility]ine MatosVdgnukve10-57-6771 Note ORIGINAL EXAMINATION: THREE XRAY VIEWS OF [...] Locations *1: This test was performed at: [facility], [address] [place] [address], [id number]- , [place]02[place]16-2023 Evaluation + Plan noteExtracted from: Title:Clinical Document [...] down 8-10 steps, she was transferred to [facility] after imaging showed subarachnoid hemorrhage. CT [...] was deemed medically stable and transferred to [facility] inpatient rehabilitation unit for physical occupational therapies [...] with daughter single level set up. Primary In Process Inspector: Self. Safe place to go: Yes. Lives [...] Rate18(FEB 16 04:56)18(FEB 15 16:40)18(FEB 15 16:40) UBJ820(FEB 16 04:56)108(FEB 15 16:40)114(FEB 16 04:56) DBP72(FEB [...] Medications reviewed and are up to date IJulai LPN, am scribing for, and in the presence of Dr. Radha HENLEY. I, Dr. Radha HENLEY , personally performed the services described in this documentation, as described by Julia San LPN in my presence and it is both accurate and complete. [facility] 01-10-2024 Physical medicine and rehab History [...] down 8-10 steps, she was transferred to [facility] after imaging showed subarachnoid hemorrhage. CT [...] was deemed medically stable and transferred to [facility] rehabilitation unit for physical occupational therapies [...] with daughter single level set up. Primary In Process Inspector: Self. Safe place to go: Yes. Lives [...] Signs(Last 24 hrs)__Last Charted Minimum Maximum Temp36.2(FEB 16:56)36.2(FEB 16:56)36.2(FEB 16:56) Heart Rate84(FEB 15 16:40)84(FEB 15 16:40)84(FEB 15 16:40) Resp Rate18(FEB 16:56)18(FEB 15 16:40)18(FEB 15 16:40) XTZ218(FEB 16 04:56)108(FEB 15 16:40)114(FEB 16 04:56) DBP72(FEB 16:56)60(FEB 15 16:40)72(FEB 16:56) No 36hr Lab Data Assessment: Subarachnoid hemorrhage [...] STAN GARCIA DO on 02/16/2023 01:57 PM [facility] HospitalGayxdbzy79-89-9285 Physical medicine and rehab Consult note INPATIENT REHAB HISTORY AND PHYSICAL CONSULTATION DATE OF ADMISSION: 02/15/2023 CC: Falls, subarachnoid hemorrhage Admission History and Physical HISTORY OF PRESENT ILLNESS: This is a 77-year-old female admitted to [facility] rehab from [facility] stay 02/08 - 02/15 who is past medical history of Parkinson's, hypertension, lipidemia, depression, and right lower extremity weakness who originally presented to [facility] and was transferred to [facility] after imaging showed subarachnoid hemorrhage. Patient [...] Patient was deemed medically stable transferred to [facility] for physical and occupational therapy [...] Rate18(FEB 15 16:40)18(FEB 15 16:40)18(FEB 15 16:40) FAB768(FEB 15 16:40)108(FEB 15 16:40)108(FEB 15 16:40) DBP60(FEB [...] will follow during acute rehabilitation stay at [facility] Inpatient Rehab Care Unit with the [...] IVAN CARDENAS DO on 02/17/2023 09:27 AM [facility] HospitalYyvrnjfx96-05-6412 Hospital Discharge instructions Patient Education 02/15/2023 13:48:18 Subarachnoid Hemorrhage, Ycal-pr-Caje Subarachnoid Hemorrhage Subarachnoid hemorrhage is bleeding between [...] Follow these instructions at home: Medicines Take fdul-pap-hsdfvvh and prescription medicines only as told by [...] 05/21/2013 Document Revised: 01/06/2018 Document Reviewed: 11/03/2017 [employer] Patient Education 2020 [employer] Follow Up Care 02/08/2023 16:21:53 With:[facility], Address:Unknown When:1-2 days With:[facility] [place] Address: When:Within 2 Week(s) With:VACCARIELLO MD, ALINA Address: [address] [place] [address] [place] [address]- [phone] When:3-7 days [facility] 01-09-2024 Discharge summary Date of Service [...] Ordered: Discharge,02/15/23 10:25:00 EST, [facility]: Discharge Communication Order,Please check orthostatic VS [...] hypertension, depression, and hyperlipidemia. Patient presented to [facility] with complaints of fall. Per documentation patient fell down 8-10 steps. she was found confused on walking from various rooms in the house aimlessly and turning on all the lights. CT head showed right occipital subarachnoid hemorrhage. Patient was then transferred to [facility] for further evaluation. patient was evaluated [...] day. Follow Up Follow Up with [facility] [place] When In 2 weeks Where: Follow Up with CHICO COLLIER MD When Within 3-7 days Where: [address] [place] [address] [place] [address] [phone] Follow Up Appointments Transfer of Care OT [...] EST Condition on Discharge Stable Discharge Disposition [facility] Information Provided To Patient Daughter-Larisa Time Spent 32 minutes Digitally Signed by SHEELA PORRAS on 02/15/2023 01:37 PM [facility]dv[facility]rk[facility]-54-7886 Note Discharge Instructions Thank you for allowing [facility] to assist you with your healthcare needs. The following is importantdischarge information regarding your hospital visit. Your Care Team CHICO COLLIER MD Your Diagnosis 3 mm nodule right upper lobe HTN (hypertension) Orthostatic hypotension Parkinson disease Small right occipital SAH s/p fall on 02/06/2023 What to do next Follow Up Appointments [facility], [facility] Within 1[facility]2 days [facility] with [facility] When In 2 weeks Where: Follow Up with CHICO COLLIER MD When Within 3-7 days Where: [address] [place] [address] [place] [address]- [phone] The Following Activity and Diet Have Been [...] Follow these instructions at home: Medicines Take nafi-nyl-jochqbd and prescription medicines only as told by [...] 05/21/2013 Document Revised: 01/06/2018 Document Reviewed: 11/03/2017 [employer] Patient Education 2020 [employer]. Additional Information VACCINATE! IT SAVES LIVES! Members of the community who have not yet received the COVID-19 vaccine and would like to receive it can visit one of [facility] vaccine clinics. There are many vaccine clinic locations within the [facility]. For locations and available times, please visit https://gettheshot.coronavirus.[place].gov/. It is important to note that some COVID mobile vaccine clinics are held outdoors and may be canceled in rainy or stormy conditions. To learn more about pediatric vaccinations (ages 5-11), we invite you to visit the [facility] webpage. https://www.[facility].org/pages/9555-Wsxut-Atkwvsqlhzx-Rywjbjwabi-Rlibh-Mxi stions.htmlTo learn more about the COVID-19 vaccine, we invite you to visit the CDC website for a list of frequently asked questions.https://www.cdc.gov/coronavirus/2019-ncov/vaccines/faq.html [employer] Patient Portal Access Instructions: Stay connected with your healthcare team and access your personal medical information anytime with the [employer] Patient Portal. Please follow the directions below to create your [facility] account: 1.Access the email account you provided upon registration to the hospital/physician office.2.Look for an invitation email from [facility].3.Open the email and access the invitation link: AcceptInvitation to [facility].4.Fill in the required lujan to create your account. To access your account, visit [email or web address]. Click the blue button labeled Access Patient Portal and then log in with the username and password that you created in the steps above. You will be able to view your test results, lab results, a summary of your visits, upcoming appointments and more. There is also a convenient messaging option where you can send secure messages to your p Terracottavider. In addition, you will have the ability to download any documents or summaries to your computer and/or send the information securely to a physician. Remember that your healthcare information is confidential, so carefully consider who you will allowto register on the [facility] Patient Portal for access to your information. You can also access the [facility] Patient Portal on the [place] [employer] sabas. Simply click on Patient Portal and then log into your account. If you would like to receive a full copy of your medical records, please contact the [facility] Medical Records Department by calling [phone], Tuesday through Tuesday between 8 a.m. and [...] Call your local pharmacy or go to http://bit.ly/4L3Tt0q to find one close to you.3.Make use of household items: Use cat litter or old coffee grounds to dispose medications if other options arenot available. Mix your drugs with these household products, seal them in an airtight container andthrow it into the garbage. Call [facility]: [phone] to be sure your drugs can be [...] COPY. Signatures Patient Education Materials Subarachnoid Hemorrhage, Tlog-ot-Xgoc Medication Leaflets My discharge plan and instructions have been reviewed and explained to me and I,ROSARIO MCNALLY understand my current condition and have read and understand these discharge instructions. I have received a written copy of the plan/instructions. If I have questions, I am aware that I should contact my doctor. 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 Signature: Date/Time: Relationship to Patient: Witness Name/Signature: Date/Time: [id number] Note Discharge Instructions Thank you for allowing [...] Up Appointments [facility], When Within 1-2 days [facility] Up [facility] When In 2 weeks Where: Follow Up with CHICO COLLIER MD When Within 3-7 days Where: [address] [place] [address] [place] [address]- [phone] The Following Activity and Diet Have Been [...] Signed By - Ordered -- 02/15/23 10:25:00 ESTISAI WILLIAM DO Transfer of Care Prognosis - Ordered [...] to receive it can visit one of [facility] vaccine clinics. There are many vaccine clinic locations within the [facility]. For locations and available times, please visit https://[email or web address].[place].gov/. It is important to note that some COVID mobile vaccine clinics are held outdoors and may be canceled in rainy or stormy conditions. To learn more about pediatric vaccinations (ages 5-11), we invite you to visit the [facility] webpage. https://www.[facility].org/pages/9616-Cuphi-Lunfzhexrfx-Azoxmbodlu-Gcoro-Yok stions.htmlTo learn more about the COVID-19 vaccine, we invite you to visit the CDC website for a list of frequently asked questions.https://www.cdc.gov/coronavirus/2019-ncov/vaccines/faq.html [facility] Patient Portal Access Instructions: Stay connected with your healthcare team and access your personal medical information anytime with the [facility] Patient Portal. Please follow the directions below to create your [facility] account: 1.Access the email account you provided upon registration to the hospital/physician office.2.Look for an invitation email from [facility].3.Open the email and access the invitation link: AcceptInvitation to [facility].4.Fill in the required lujan to create your account. To access your account, visit [employer]/CityCiv. Click the blue button labeled Access Patient Portal and then log in with the username and password that you created in the steps above. You will be able to view your test results, lab results, a summary of your visits, upcoming appointments and more. There is also a convenient messaging option where you can send secure messages to your Micro[employer]ider. In addition, you will have the ability to download any documents or summaries to your computer and/or send the information securely to a physician. Remember that your healthcare information is confidential, so carefully consider who you will allowto register on the [facility] Patient Portal for access to your information. You can also access the [facility] [facility] [employer] NowChart Patient Portal on the [facility] sabas. Simply click on Patient Portal and then log into your account. If you would like to receive a full copy of your medical records, please contact the [facility] Medical Records Department by calling [phone], Tuesday through Tuesday between 8 a.m. and [...] Call your local pharmacy or go to http://CloudSplit[employer]6U0Lj7b to find one close to you.3.Make use of household items: Use cat litter or old coffee grounds to dispose medications if other options arenot available. Mix your drugs with these household products, seal them in an airtight container andthrow it into the garbage. Call [facility]: [phone] to be sure your drugs can be [...] aware that I should contact my doctor. 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 Patient presented to [facility] with complaints of fall. Per documentation patient fell down 8-10 steps. she was found confused on walking from various rooms in the house aimlessly and turning on all the lights. CT head showed right occipital subarachnoid hemorrhage. Patient was then transferred to [facility] for further evaluation. patient was evaluated [...] day. Follow Up Follow Up with [facility] When In 2 weeks Where: Follow Up with CHICO COLLIER MD When Within 3-7 days Where: [address] [place] [address] [place] [address]- [phone] Follow Up Appointments Transfer of Care OT [...] EST Condition on Discharge Stable Discharge Disposition [facility] Information Provided To Patient Daughter-Larisa Time Spent 32 minutes Digitally Signed by SHEELA PORRAS on 02/15/2023 01:37 PM [facility] [id number] Note Date of Service 02/14/23 Chief Complaint Weakness Subjective Patient is a 77 year old female with a past medical history significant for Parkinson's disease, hypertension, depression, and hyperlipidemia. Patient presented to [facility] with complaints of fall. Per documentation patient fell down 8-10 steps. she was found confused on walking from various rooms in the house aimlessly and turning on all the lights. CT head showed right occipital subarachnoid hemorrhage. Patient was then transferred to [facility] for further evaluation. patient was evaluated [...] did call the patient's daughter (Larisa Cabral [phone]) via phone. Patient and family verbalizes understanding and are agreeable plan of care. Patient plans to be discharged to [facility] once medically optimized. Discussed with my collaborating physician Dr. Stew Alex This dictation was performed using voice recognition software and may include grammatical and/or spelling errors Orders: Consult to Physician Time Spent 26 minutes Digitally Signed by SHEELA PORRAS on 02/14/2023 01:18 PM [facility] [id number] Note Date of Service 02/14/23 Chief Complaint Weakness Subjective Patient is a 77 year old female with a past medical history significant for Parkinson's disease, hypertension, depression, and hyperlipidemia. Patient presented to [facility] with complaints of fall. Per documentation patient fell down 8-10 steps. she was found confused on walking from various rooms in the house aimlessly and turning on all the lights. CT head showed right occipital subarachnoid hemorrhage. Patient was then transferred to [facility] for further evaluation. patient was evaluated [...] did call the patient's daughter (Larisa Cabral [phone]) via phone. Patient and family verbalizes understanding and are agreeable plan of care. Patient plans to be discharged to [facility] once medically optimized. Discussed with my collaborating physician Dr. Stew Alex This dictation was performed using voice recognition software and may include grammatical and/or spelling errors Orders: Consult to Physician Time Spent 26 minutes Digitally Signed by SHEELA PORRAS on 02/14/2023 01:18 PM [facility] [id number] Neurology Consult note Date of Service 02/13/23 Reason for Consultation Parkinson's/orthostatic hypotension Referring Physician Dr. Yates History of Present Illness Patient is a 77-year-old female with PMH of Parkinson's per daughter diagnosed 6 years ago by neurologist, and, depression, HLD, recurrent falls at home. Presented to [facility] on 02/08/2023 for evaluation after a presumed fall 4 days prior. Reported patient was found at the bottom of her stairs ather house on 02/06/2023. Family had reported on s Kari the patient was acting more confused, [...] becoming more frequent averaging 1/month however around [place] time she had 4 falls in 1 week. That she has noticed more gradual confusion the past few months, that the patient will ask things over and over because she forgot, will getup in the middle of the night as if she is sundowning. 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 However was much worse after she hit [...] commands, Mental Status: Orientation: Oriented to person, [facility], and month Language: Normal fluency, normal [...] Strength: 5/5 Tone: Increased in all Coordination: Jhczkc-bwis-rjofly movements: No ataxia present Reflexes: R: L [...] PLAN: -CT brain without contrast completed at [facility] on 02/08/2023 demonstrates small subarachnoid hemorrhage [...] reach back out to the oncoming team. MD [facility] Problem List/Past Medical History Ongoing No [...] 02/13/2023 03:09 PM Digitally Signed by ALEE THURSTON MD on 02/13/2023 03:46 PM [facility] [id number] Note Date of Service 02/13/23 Chief Complaint Dizziness/Weakness Subjective Patient is a 77 year old female with a past medical history significant for Parkinson's disease, hypertension, depression, and hyperlipidemia. Patient presented to [facility] with complaints of fall. Per documentation patient fell down 8-10 steps. she was found confused on walking from various rooms in the house aimlessly and turning on all the lights. CT head showed right occipital subarachnoid hemorrhage. Patient was then transferred to [facility] for further evaluation. patient was evaluated [...] daughter at bedside and daughter (Larisa Cabral [phone]) via phone. Patient and family verbalizes understanding and are agreeable plan of care. Discussed with my collaborating physician Dr. adelita yates This dictation was performed using voice recognition software and may include grammatical and/or spelling errors Orders: Consult to Physician Time Spent 41 minutes Digitally Signed by SHEELA PORRAS on 02/13/2023 01:23 PM Digitally Signed by SHEELA PORRAS on 02/13/2023 01:25 PM [facility] [id number] Note Date of Service 02/12/23 Chief Complaint Weakness Subjective Patient is a 77 year old female with a past medical history significant for Parkinson's disease, hypertension, depression, and hyperlipidemia. Patient presented to [facility] with complaints of fall. Per documentation patient fell down 8-10 steps. she was found confused on walking from various rooms in the house aimlessly and turning on all the lights. CT head showed right occipital subarachnoid hemorrhage. Patient was then transferred to [facility] for further evaluation. patient was evaluated [...] 12:07) L 86(FEB 12 04:01) H 157(FEB 12:) DBP 81(FEB 12 12:07) C 36(FEB 12:) H 92(FEB 12 07:45) Physical Exam General: [...] grammatical and/or spelling errors Collaborative Care Team [facility] Medicine Shared/split visit with Sheela CABRAL. Patient [...] Added fludrocortisone. Increased amlodipine. adelita yates md [facility] Medicine Digitally Signed by SHEELA PORRAS on 02/12/2023 02:14 PM Digitally Signed by ADELITA YATES MD [facility] on 02/12/2023 04:17 PM [facility] [id number] Neurological surgery Consult note Date of Service 02/09/2023 This is a split/shared consultation with Dr. Bocanegra Reason for Consultation SAH Referring Physician Dr. Rowland History of Present Illness This is a 77-year-old female with a PMH significant for hypertension, hypercholesterolemia, Parkinson's disease with multiple falls who presented to [facility] on 02/08/2023 for evaluation after a presumed [...] For that reason, she was transferred to [facility] ED for further evaluation. History taken [...] and interpretation. CT head imaging reviewed from [facility]. Assessment/Plan Small right occipital SAH s/p fall on 02/06/2023 CT brain without contrast completed at [facility] on 02/08/2023 demonstrates small subarachnoid hemorrhage [...] by JEEVAN MARTINEZ on 02/09/2023 09:39 AM [facility] [id number] Neurological surgery Consult note Date of Service 02/09/2023 This is a split/shared consultation with Dr. Bocanegra Reason for Consultation SAH Referring Physician Dr. Rowland History of Present Illness This is a 77-year-old female with a PMH significant for hypertension, hypercholesterolemia, Parkinson's disease with multiple falls who presented to [facility] on 02/08/2023 for evaluation after a presumed [...] For that reason, she was transferred to [facility] ED for further evaluation. History taken [...] and interpretation. CT head imaging reviewed from [facility]. Assessment/Plan Small right occipital SAH s/p fall on 02/06/2023 CT brain without contrast completed at [facility] on 02/08/2023 demonstrates small subarachnoid hemorrhage [...] by JEEVAN MARTINEZ on 02/09/2023 09:39 AM [facility] [id number] History and physical note Date of Service [...] REILLY ROWLAND MD on 02/08/2023 08:50 PM [facility] [id number] Note ORIGINAL EXAMINATION: CT CHEST WITH CONTRAST02/08/2023 [...] Date: 02/08/2023 10:26:14 PM Ordering Provider: [facility]01-02-2024 History and physical note Date [...] REILLY ROWLAND MD on 02/08/2023 08:50 PM [facility] HospitalKpenuhzp09-15-1595 Note ORIGINAL EXAMINATION: CT OF THE CERVICAL [...] Sign Date: 02/08/2023 6:55:16 PM Ordering Provider: [facility]01-02-2024 Note ORIGINAL EXAMINATION: ONE XRAY VIEW OF [...] Sign Date: 02/08/2023 6:53:03 PM Ordering Provider: [facility]01-02-2024 Evaluation + Plan noteExtracted from: Title:History and [...] not yet verified. They will need reconciled [facility] Evaluation noteNo assessment information available [facility] Work Phone: Hospital course Narrative No data available for this section [facility] Hospital Discharge instructions Additional Instructions Ice [...] return to the emergency department. Tylenol for pain.[facility] Work Phone: Hospital Discharge instructions No data available for this section [facility] Progress note Author Barbara Ramirez [facility] Services Note Date/Time July 03, 2024 11:09 am [facility] [address] [place] [address] OFFICE VISIT Date of Service: 07/03/24 MR#: [id number] Acct: [id number] Name: ROSARIO MCNALLY Rep #: [id number] : 1945 Provider: RANDALL Ramirez Age/Sex: 78/F Location: [facility] Status: Signed Intake Vital Signs 06/28/24 14:56 [...] POSITIVE HEMOCULT Chief Complaint: occult positive stools 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: No Accompanied by: Caregiver Is patient in pain?: No Allergies amoxicillin (From Trimox) Allergy (Verified 07/03/24 10:13) Hives Medications ?Medication ?Instructions ?Recorded ?Confirmed ?Type acetaminophen 650 mg 650 mg PO Q8H 03/28/2307/03 History tablet,extended release atorvastatin 10 mg tablet 10 mg PO QHS 03/28/23 History bisacodyl 10 mg rectal suppository 10 mg WA DAILY PRN 03/28/23 07/03/24 History (Dulcolax (bisacodyl)) [...] testing if a lesion/cancer were found [place] [phone] ROS Const Constitutional: No fatigue, fever(s) or [...] resulting in a large left arm laceration krhxualpt00 sutures. Her hemoglobin initially dropped to 9.0 [...] I recommend repeating in one month. Note: [employer]ation speech recognition nursing surgical services director software was used to create portions of this document. Sound-alike and misspelled words, as well as other nursing surgical services director errors may be contained in the documentation. Coding Level of Care Code Off vis,new,level 4 Diagnoses Anemia D64.9 Occult blood positive stool R19.5 Clinical Quality Measures Falls Risk Screening/Assistive Devices Have you fallen in the past year?: Yes Smoking Screening Smoking Status: Never smoker 07/03/24 1109 <Electronically signed by Barbara PEREIRA> Date _ Barbara PEREIRA Cosigner Signature: Date (if applicable) CC: ~ [facility] [employer] Work Phone: Progress note No data available for this section [facility] Reason for referral (narrative)No reason for referral information available[facility] Work Phone: Summary Purpose Family History No [...] Do you have a Healthcare Power of Rn Enterostomal? Yes June 25, 2024 9:00pm Chief Complaint and Reason for Visit Chief Complaint Personal history of other diseases of the circulat Chief Complaint Admit Date LACERATION June 25, 2024 8:54p m Chief Complaint Admit Date LACERATION June 25, 2024 8:54p m ED FOLLOW UP June 28, 2024 2:25p m ALF LAB WORK July 03, 2024 4:0 0am ANEMIA POSITIVE HEMOCULT July 03, 2024 9:56am Reason for Visit Admit Date Laceration of forearm, left June 28 2:25pm Anemia July 03, 2024 9:56a m Occult blood positive stool July 03 9:56am Chief Complaint Admit Date LACERATION June 25, 2024 8:54p m ED FOLLOW UP June 28, 2024 2:25p m ALF LAB WORK July 03, 2024 4:0 0am ANEMIA POSITIVE HEMOCULT July 03, 2024 9:56am 1 W FU July 06, 2024 2:14p m Chief Complaint Admit Date LACERATION June 25, 2024 8:54p m ED FOLLOW UP June 28, 2024 2:25p m ALF LAB WORK July 03, 2024 4:0 0am [...] Date LACERATION June 25, 2024 8:54p m ALF LAB WORK June 27, 2024 5:0 0am ALF LAB WORK June 28, 2024 5:0 0am ED FOLLOW UP June 28, 2024 2:25p m ALF LAB WORK July 03, 2024 4:0 0am [...] Date LACERATION June 25, 2024 8:54p m ALF LAB WORK June 27, 2024 5:0 0am ALF LAB WORK June 28, 2024 5:0 0am ED FOLLOW UP June 28, 2024 2:25p m ALF LAB WORK July 03, 2024 4:0 0am ANEMIA POSITIVE HEMOCULT July 03, 2024 9:56am 1 W FU July 06, 2024 2:14p m 1 W FU July 13, 2024 1:56p m 2 W FU July 27, 2024 9:16 am Chief Complaint Admit Date LACERATION June 25, 2024 8:54p m ALF LAB WORK June 27, 2024 5:0 0am ALF LAB WORK June 28, 2024 5:0 0am ED FOLLOW UP June 28, 2024 2:25p m ALF LAB WORK June 29, 2024 5:0 0am ALF LAB WORK July 03, 2024 4:0 0am ANEMIA POSITIVE HEMOCULT July 03, 2024 9:56am 1 W FU July 06, 2024 2:14p m 1 W July 13, 2024 1:56p m LABWORK July 27, 2024 5:00 am 2 W July 27, 2024 9:16 am ALF LAB WORK July 30, 2024 9: 30am ALF LAB WORK July 31, 2024 5: 00am ALF LAB WORK August 02, 2024 8: 00am DIZZINESS/HTN/FALLS August 02, 2024 2:02 pm ALF LAB WORK August 15, 2024 9:0 0am 1 Y FU September 03, 2024 3:30 pm Reason for Visit Admit Date Laceration of forearm, left June 28 2:25pm Anemia July 03, 2024 9:56a m Occult blood positive stool July 03 9:56am Laceration of forearm, left July 06 2:14pm Laceration of forearm, left July 13 1:56pm Dizziness July 27, 2024 9:16 am Falls July 27, 2024 9:16 am Laceration of forearm, left July 27, 025 9:16am Essential hypertension September 03, 2024 3 :30pm Orthostatic hypotension September 03, 2024 3:30pm Chief Complaint Admit Date LACERATION June 25, 2024 8:54p m ALF LAB WORK June 27, 2024 5:0 0am ALF LAB WORK June 28, 2024 5:0 0am ED FOLLOW UP June 28, 2024 2:25p m ALF LAB WORK June 29, 2024 5:0 0am ALF LAB WORK July 03, 2024 4:0 0am ANEMIA POSITIVE HEMOCULT July 03, 2024 9:56am 1 W FU July 06, 2024 2:14p m 1 W FU July 13, 2024 1:56p m LABWORK July 27, 2024 5:00 am 2 W FU July 27, 2024 9:16 am ALF LAB WORK July 30, 2024 9: 30am ALF LAB WORK July 31, 2024 5: 00am ALF LAB WORK August 02, 2024 8: 00am DIZZINESS/HTN/FALLS August 02, 2024 2:02 pm ALF LAB WORK August 15, 2024 9:0 0am 1 Y FU September 03, 2024 3:30 pm elevated blood-pressure reading September 132024 9:48am Reason for Visit Admit Date Laceration of forearm, left June 28 2:25pm Anemia July 03, 2024 9:56a m Occult blood positive stool July 03 9:56am Laceration of forearm, left July 06 2:14pm Laceration of forearm, left July 13 1:56pm Dizziness July 27, 2024 9:16 am Falls July 27, 2024 9:16 am Laceration of forearm, left July 27, 2 025 9:16am Dizziness September 03, 2024 3:30 pm Essential hypertension September 03, 2024 3 :30pm Orthostatic hypotension September 03, 2024 3:30pm Additional Source Comments INFORMATION SOURCE (unrecogn ized section and content) DATE CREATED AUTHOR 12/30/2022 [facility] DATE CREATED AUTHOR AUTHOR'S ORGANIZ ATION 02/22/2023 [facility] DATE CREATED AUTHOR AUTHOR'S ORGANIZ ATION 03/05/2023 [facility] ([place]) DATE CREATED AUTHOR AUTHOR'S ORGANIZ ATION 08/21/2024 [facility] DATE CREATED AUTHOR AUTHOR'S ORGANIZ ATION 09/22/2024 [facility] Patient Care team informatio n (unrecognized section [...] July 27, 2024 End: July 27, 2024 Team Status: Active Member Role/Relationship Status Dates Dr. Rahul Shetty DO Primary Care Provider Active Team Status: Inactive Member Role/Relationship Status Dates Dr. Joel Muniz MD Attending Provider Active S tart: June 25, 2024 End: June 26, 2024 Dr. Joel Muniz MD Emergency Provider Active S tart: June 25, 2024 End: June 26, 2024 Dr. Yahaira Winn MD Primary Care Provider Active Start: June 25, 2024 End: June 26, 2024 Team Status: Inactive Member Role/Relationship Status Dates Dr. Yahaira Winn MD Primary Care Provider Active Start: June 27, 2024 End: June 27, 2024 Dr. Rahul SAAVEDRA MD Attending Provider Active Start: June 27, 2024 End: June 27, 2024 Team Status: Inactive Member Role/Relationship Status Dates Dr. Yahaira Winn MD Primary Care Provider Active Start: June 28, 2024 End: June 28, 2024 Dr. Rahul SAAVEDRA MD Attending Provider Active Start: June 28, 2024 End: June 28, 2024 Team Status: Inactive Member Role/Relationship Status Dates Dr. Yahaira Winn MD Primary Care Provider Active Start: June 28, 2024 End: June 28, 2024 Dr. Yahaira Winn MD Referring Provider Active Start: June 28, 2024 End: June 28, 2024 Dr. Jose Matthews MD Attending Provider Active Start: June 28, 2024 End: June 28, 2024 Team Status: Active Member Role/Relationship Status Dates Dr. Yahaira Winn MD Primary Care Provider Active Start: June 29, 2024 Dr. Rahul SAAVEDRA MD Attending Provider Active Start: June 29, 2024 Team Status: Inactive Member Role/Relationship Status Dates Dr. Yahaira Winn MD Primary Care Provider Active Start: July 03, 2024 End: July 03, 2024 Dr. Rahul SAAVEDRA MD Attending Provider Active Start: July 03, 2024 End: July 03, 2024 Dr. Rahul SAAVEDRA MD Referring Provider Active Start: July 03, 2024 End: July 03, 2024 Team Status: Inactive Member Role/Relationship Status Dates Dr. Yahaira Winn MD Primary Care Provider Active Start: July 03, 2024 End: July 03, 2024 Dr. Yahaira Winn MD Referring Provider Active Start: July 03, 2024 End: July 03, 2024 RANDALL Parker Attending Provider Active Start: July 03, 2024 End: July 03, 2024 Team Status: Inactive Member Role/Relationship Status Dates Dr. Yahaira Winn MD Primary Care Provider Active Start: July 06, 2024 End: July 06, 2024 Dr. Yahaira Winn MD Referring Provider Active Start: July 06, 2024 End: July 06, 2024 Dr. Jose Matthews MD Attending Provider Active Start: July 06, 2024 End: July 06, 2024 Team Status: Inactive Member Role/Relationship Status Dates Dr. Yahaira Winn MD Primary Care Provider Active Start: July 13, 2024 End: July 13, 2024 Dr. Yahaira Winn MD Referring Provider Active Start: July 13, 2024 End: July 13, 2024 Dr. Jose Matthews MD Attending Provider Active Start: July 13, 2024 End: July 13, 2024 Team Status: Active Member Role/Relationship Status Dates Dr. Yahaira Winn MD Primary Care Provider Active Start: July 27, 2024 Dr. Rahul SAAVEDRA MD Attending Provider Active Start: July 27, 2024 Team Status: Inactive Member Role/Relationship Status Dates Dr. Yahaira Winn MD Primary Care Provider Active Start: July 27, 2024 End: July 27, 2024 Dr. Yahaira Winn MD Referring Provider Active Start: July 27, 2024 End: July 27, 2024 Dr. Jose Matthews MD Attending Provider Active Start: July 27, 2024 End: July 27, 2024 Team Status: Active Member Role/Relationship Status Dates Dr. Yahaira Winn MD Primary Care Provider Active Start: July 30, 2024 Dr. Rahul SAAVEDRA MD Attending Provider Active Start: July 30, 2024 Dr. Rahul SAAVEDRA MD Referring Provider Active Start: July 30, 2024 Team Status: Active Member Role/Relationship Status Dates Dr. Yahaira Winn MD Primary Care Provider Active Start: July 31, 2024 Dr. Rahul SAAVEDRA MD Attending Provider Active Start: July 31, 2024 Team Status: Active Member Role/Relationship Status Dates Dr. Yahaira Winn MD Primary Care Provider Active Start: August 02, 2024 [facility] Attending Provider Active Start: August 02, 2024 Dr. Checo Reid MD Attending Provider Active S tart: August 02, 2024 Team Status: Active Member Role/Relationship Status Dates Dr. Rahul Shetty DO Primary Care Provider Active Start: August 02, 2024 Dr. Rahul Shetty DO Attending Provider Active Start: August 02, 2024 Dr. Rahul Shetty DO Referring Provider Active Start: August 02, 2024 Team Status: Active Member Role/Relationship Status Dates Dr. Rahul Shetty DO Primary Care Provider Active Start: August 15, 2024 Dr. Rahul SAAVEDRA MD Attending Provider Active Start: August 15, 2024 Team Status: Inactive Member Role/Relationship Status Dates Dr. Rahul Shetty DO Primary Care Provider Active Start: September 03, 2024 End: September 03, 2024 Dr. Rahul Shetty DO Referring Provider Active Start: September 03, 2024 End: September 03, 2024 Jennifer Argueta NP, [employer] Attending Provider Active Start: September 03, 2024 End: September 03, 2024 Team Status: Inactive Member Role/Relationship Status Dates Dr. Rahul Shetty DO Primary Care Provider Active Start: September 13, 2024 End: September 13, 2024 Jennifer Argueta NP, [employer] Attending Provider Active Start: September 13, 2024 End: September 13, 2024 Jennifer Argueta NP, [employer] Referring Provider Active Start: September 13, 2024 End: September 13, 2024 Goals (unrecognized section and content) Goals [...] BE BASED ON THE PRIMARY CLINICAL RECORDS. [facility] [employer] [facility]. provides no warranty or guarantee of the accuracy or completeness of information in this document.
--- NOTE | 2024-09-23 08:32 | EKG12_ITS ---
Test Reason : ARRYTH Blood Pressure : */* mmHG Vent. Rate : 72 BPM Atrial Rate : 72 BPM P-R Int : 144 ms QRS Dur : 80 ms QT Int : 406 ms P-R-T Axes : 26 -11 3 degrees QTcB Int : 444 ms Normal sinus rhythm Normal ECG Confirmed by KP SALAZAR, JOSE LUIS ([id number]), makeup editor RUBÉN MA ([id number]) on 09/25/2024 6:09:24 AM Referred By: Confirmed By: JOSE LUIS GOODRICH MD
--- NOTE | 2024-09-23 09:21 | ED.RN ---
This RN attempted to call report to [facility], nursing staff did not answer phone.
== END 2024-09-23 09:59 | disposition home or self-care (01) ==
PROVIDERS: Emergency Provider Student in an Organized Health Care Education/Training Program; Visit Provider Student in an Organized Health Care Education/Training Program
DX: R47.01 Aphasia (principal); G20.A1 Parkinson's disease without dyskinesia, without mention of fluctuations; E78.5 Hyperlipidemia, unspecified; Z90.710 Acquired absence of both cervix and uterus; I10 Essential (primary) hypertension; R29.700 NIHSS score 0; Z79.899 Other long term (current) drug therapy; Z90.49 Acquired absence of other specified parts of digestive tract; Z66 Do not resuscitate
CPT/HCPCS: 93005; 99285

== ENCOUNTER → 2024-12-05 22:00 | Outpatient (REF) | payer MEDICARE, OTHER, SELFPAY ==
[2024-12-06 08:45] LABS: Mucous, Urine 0 SEEN /hpf (<or=2+)
[2024-12-06 09:22] LABS: Color, Urine Yellow (Yellow); Glucose, Dipstick Normal (Normal); Ketone-Dipstick 5 mg/dl (Negative); Leukocyte Esterase-Dipstick Negative /ul (Negative); Nitrite-Dipstick Negative (Negative); Occult Blood-Urine 50 /ul (Negative); Protein-Dipstick 30 mg/dl (Negative); Specific Gravity, Urine 1.015 (1.002-1.030); Urine Bilirubin Dipstick Negative (Negative)
[2024-12-06 09:31] LABS: Calcium Oxalate Crystals Ur 1+ /hpf (<or=2+); Squamous Epithelial Cells - UA 5-10 SEEN /hpf (5-10)
[2024-12-06 09:32] LABS: Red Blood Cells-Urine 0-5 SEEN /hpf (0-5)
== END ==
DX: N39.0 Urinary tract infection, site not specified (principal)
CPT/HCPCS: 81001; 87086; 87088

== ENCOUNTER 2024-12-09 08:15 | Emergency (ER) | payer MEDICARE, OTHER, SELFPAY ==
[2024-12-09 08:17] VITALS: BP 191/107; PULSE 77; RESP 21; TEMP 36.7; O2SAT 97; BMI 23.2
--- NOTE | 2024-12-09 08:36 | RAD_ITS ---
PROCEDURE: RAD/Pelvis 1 or 2 Views
--- NOTE | 2024-12-09 08:36 | RAD_ITS ---
PROCEDURE: RAD/Shoulder min 2 Views
--- NOTE | 2024-12-09 08:38 | ED.VIS.FALL ---
HPI HPI - Fall History of Present Illness Chief Complaint: Fall Narrative Narrative: Patient is a 79-year-old female presenting to the emergency department after a fall at [place]. Patient states that there was a bump on the floor which caused her to trip and fall. She reports she does not remember striking her head but states there is blood on the back of her head. She does not take any oral anticoagulation. Patient states that her arm got hit on a hook on the wall which cut her arm. She denies any symptoms that caused her to fall including chest pain, shortness of breath, dizziness, lightheadedness. States she was able to walk afterwards. Unknown last tetanus shot. [facility] Medical History Blindness left eye category 5, normal vision right eye Unsteadiness on feet Difficulty in walking Anemia Lung nodule Depression Wrist fracture, right Orthostatic hypotension Essential hypertension Subarachnoid hemorrhage following injury Hyperlipidemia Parkinson's disease Home Medications ?Medication ?Instructions ?Recorded ?Last Taken ?Type atorvastatin 10 mg tablet 10 mg PO QHS HYPERLIPIDEMIA 03/28/23 Unknown History carbidopa 25 mg-levodopa 100 mg 1 tab PO 4XD NEUROCOGNITIVE 03/28/23 Unknown History tablet DISORDER escitalopram oxalate 10 mg tablet 10 mg PO DAILY MAJOR DEPRESSIVE 03/28/23 Unknown History DISORD ferrous sulfate 325 mg (65 mg 325 mg PO DAILY ANEMIA 03/28/23 Unknown History iron) tablet artifi.tears(hypromellose)(PF) 1.7 1 drp ophthalmic (eye) TID DRYNESS 07/03/24 Unknown History % eye drops with applicator midodrine 5 mg tablet 7.5 mg PO TID HTN 09/03/24 Unknown History acetaminophen 325 mg capsule 650 mg PO Q6H PRN fever or pain 09/23/24 Unknown History bisacodyl 10 mg rectal suppository 10 mg WA Q12H PRN constipation 09/23/24 Unknown History docusate sodium 100 mg capsule 100 mg PO Q12H PRN constipation 09/23/24 Unknown History (Col-Rite) lorazepam 0.5 mg tablet 0.5 mg PO .COMPLEX ANXIETY 09/23/24 Unknown History magnesium hydroxide 400 mg/5 mL 30 ml PO Q12H PRN constipation 09/23/24 Unknown History oral suspension (Dulcolax (magnesium hydroxide)) ondansetron 4 mg disintegrating 4 mg PO Q6H PRN nausea and vomiting 09/23/24 Unknown History tablet polyethylene glycol 3350 17 17 g PO DAILY PRN constipation 09/23/24 Unknown History gram/dose oral powder (Miralax) Allergy/AdvReac Type Severity Reaction Status Date / Time amoxicillin (From Trimox) Allergy Hives Verified 12/03/24 15:37 Family History Mother Hypertension Heart disease Diabetes Father Hypertension Emphysema lung Surgical History Hx laparoscopic cholecystectomy History of hysterectomy Social History Smoking Status: Never smoker alcohol intake: never substance use type: does not use caffeine: Yes Type: coffee Number of servings: 2 additional social history: pt denies vaping, denies edibles, denies marijuana use, denies aspirin and denies ibuprofen use, pt denies family history of blood clots/blood disorders. ROS ROS ED ROS Narrative see HPI EXAM Physical Exam Narrative Exam Narrative: Vital signs: Reviewed General: Alert and orientedx3. No acute distress. Chronically ill appearing. HEENT: Head is normocephalic and atraumatic. There is a small cephalhematoma to the left parietal portion of the scalp. There is a small overlying abrasion with a very small half a centimeter laceration with no active bleeding. Midface is stable and nontender to palpation. Pupils equal round and reactive. Nares are patent. No septal hematoma. Oropharynx and throat exams normal. No oropharyngeal trauma. Neck: Supple without lymphadenopathy nontender. No midline cervical spinal tenderness to palpation. No step-offs or deformities. Cardiovascular: Regular rate and rhythm, no murmurs. No rubs or gallops. Normal S1 and S2 Respiratory: Clear to auscultation bilaterally. No wheezes, rales, rhonchi Chest: Chest wall is atraumatic and nontender to palpation. No ecchymosis, erythema or crepitus. Abdominal: Soft and nontender. Normal bowel sounds. No guarding or rebound. Nonsurgical abdomen Extremities: No midline thoracic or spinal tenderness palpation. No step-offs or deformities. There is a small skin tear to the right elbow with no tenderness to palpation. The left shoulder is tender to palpation with no obvious deformities. Hips are stable and nontender to palpation. Extremities are otherwise atraumatic and nontender to palpation with normal active range of motion. Neurological: Cranial nerves II through XII are grossly intact. Normal strength and sensation. Normal cerebellar function The rest of the physical exam is unremarkable Const Vital Signs: 12/09/24 08:17 12/09/24 08:22 12/09/24 09:16 Temperature 98.1 F 98.2 F Temperature Source Oral Oral Pulse Rate 77 69 Respiratory Rate 21 H 18 Respiratory Effort Normal Non-Labored Short of Breath Respiratory Depth Normal Respiratory Pattern Normal Blood Pressure 191/107 H 153/81 H Blood Pressure Mean 135 105 Pulse Ox 97 98 Oxygen Delivery Method Room Air Room Air 12/09/24 10:55 12/09/24 11:00 12/09/24 11:57 Temperature 98.3 F Temperature Source Pulse Rate 76 72 72 Respiratory Rate 16 16 16 Respiratory Effort Respiratory Depth Respiratory Pattern Blood Pressure 186/96 H 182/76 H 182/76 H Blood Pressure Mean 126 111 111 Pulse Ox 100 100 100 Oxygen Delivery Method MDM MDM MDM Narrative Medical decision making narrative: Patient is a 79-year-old female presenting to the emergency department after a fall. Patient was seen and examined. Vitals are stable. Patient resting bed comfortably no acute distress. Given patient's age and evidence of head trauma, CT the brain and cervical spine were ordered. Chest x-ray, pelvis x-ray and left shoulder x-ray were obtained as well. Unknown last tetanus shot, attempted to look this up in her chart and there is no evidence of 1 recently. Will update here. Wounds were copiously irrigated by nursing staff. Patient declined tetanus shot. CT of the brain with no acute intracranial hemorrhage or mass effect. Evidence of the scalp hematoma and laceration. Chronic brain CT findings can be seen in the report. CT cervical spine with no acute abnormalities. X-ray imaging reviewed by myself. No evidence of acute bony abnormalities on the chest x-ray. Shoulder x-ray with no evidence of fracture or dislocation. Radiology read in agreement. No fracture or dislocation seen on the pelvis x-ray on my review. Radiology read with a linear lucency in the femoral head neck region on the left which may be artifactual although I can not exclude a subcapital fracture. I recommend dedicated hip radiographs and/or CT for better characterization. CT of the hip was obtained. No acute fractures seen on radiology review. Patient ambulated with her rollator with no difficulty. Patient and daughter at bedside were updated on the negative imaging findings. Given wound care instructions for her abrasion on her head. Very small laceration that does not need repaired. It was copiously irrigated by nursing staff as stated above. They refused tetanus vaccine. Patient discharged from the Emergency Department. I do not feel that the patient's evaluation reveals any acute reason for admission at this time. I instructed them to either follow-up with their primary care physician or promptly return to the Emergency Department for reevaluation should symptoms worsen or new symptoms develop. I explained what symptoms would indicate the need to return to the emergency department. Shared decision making was used. The patient voiced understanding of the treatment plan and is agreeable with it. Clinical impression Fall Head trauma Left shoulder contusion Skin abrasion History & Record Review Discussion w/independent historian: Patient Radiography Chest X-Ray - ED: 2 View, Read by ED Physician, Normal, No Acute Disease and No Infiltrates X-Ray: Right Hip, Left Hip, Read by ED Physician and Normal Diagnostic Testing: Clinical Impression(s) from Imaging Studies Pelvis X-Ray 12/09/24 08:36 IMPRESSION: Linear lucency in the femoral head neck region on the left which may be artifactual although I can not exclude a subcapital fracture. I recommend dedicated hip radiographs and/or CT for better characterization. Reading Location: [facility] Shoulder X-Ray 12/09/24 08:36 IMPRESSION: No acute bony abnormality. [facility] Brain [facility] 12/09/24 08:55 IMPRESSION: Senescent and small-vessel ischemic change without acute intracranial hemorrhage or mass effect. Scalp hematoma and laceration as above. [facility] Cervical Spine CT 12/09/24 08:55 IMPRESSION: No acute cervical spine abnormality. Other incidental findings as above. Reading Location: [facility] Chest X-Ray 12/09/24 09:00 IMPRESSION: Cardiomegaly. No definite acute process Reading Location: [facility] Pelvis CT 12/09/24 11:01 IMPRESSION: 1. Fecal retention in the colon consistent with constipation. 2. Mild to moderate degenerative change of the left hip joint with subchondral cysts. No acute fracture. Reading Location: [id number] Discharge Plan Triage Chief Complaint: Fall ED Provider: Isis Mae Dx/Rx/DC Orders Clinical Impression: Fall, Head trauma, Skin tear, Contusion of left shoulder Prescriptions: No Action atorvastatin 10 mg tablet 10 mg PO QHS carbidopa-levodopa 25-100 mg tablet 1 tab PO 4XD escitalopram oxalate 10 mg tablet 10 mg PO DAILY ferrous sulfate 325 mg (65 mg iron) tablet 325 mg PO DAILY midodrine 5 mg tablet 7.5 mg PO TID Rx Instructions: do not give last dose of day after 6PM or within 4 hrs of bedtime artifi.tears(hypromellose)(PF) 1.7 % drops with applicator 1 drp ophthalmic (eye) TID acetaminophen 325 mg capsule 650 mg PO Q6H PRN (Reason: fever or pain) bisacodyl 10 mg suppository 10 mg WA Q12H PRN (Reason: constipation) docusate sodium [Col-Rite] 100 mg capsule 100 mg PO Q12H PRN (Reason: constipation) lorazepam 0.5 mg tablet 0.5 mg PO .COMPLEX Rx Instructions: 0.5 mg orally 30 MIN PRIOR TO TRIGGERING EVENT, MAY TAKE 2ND DOSE 30 MIN AFTER IF NEEDED; magnesium hydroxide [Dulcolax (magnesium hydroxide)] 400 mg/5 mL suspension 30 ml PO Q12H PRN (Reason: constipation) Rx Instructions: IF NO BM IN 3 CONSECUTIVE DAYS ondansetron 4 mg tablet,disintegrating 4 mg PO Q6H PRN (Reason: nausea and vomiting) polyethylene glycol 3350 [Miralax] 17 gram/dose powder 17 g PO DAILY PRN (Reason: constipation) Primary Care Provider: Yahaira Winn Referrals: Rahul Shetty DO [Non-Staff, Medical] Activity Restrictions/Additional Instructions: Your evaluation in the Emergency Department did not reveal any acute reason for admission. However, I want to emphasize that you may be early in the course of a disease process or illness even if it is not present. For this reason you should follow-up within 24 hours for reevaluation with either your primary care physician or if necessary back here in the Emergency Department. You should return to the Emergency Department immediately if your symptoms worsen or new symptoms develop. Print Language: Niuean
--- NOTE | 2024-12-09 08:55 | CT_ITS ---
PROCEDURE: CT/Brain/Head without Contrast
--- NOTE | 2024-12-09 08:55 | CT_ITS ---
PROCEDURE: CT/Spine Cervical without Contras
--- NOTE | 2024-12-09 09:00 | RAD_ITS ---
PROCEDURE: RAD/Chest PA and Lateral
[2024-12-09 09:16] VITALS: BP 153/81; PULSE 69; RESP 18; TEMP 36.8; O2SAT 98
[2024-12-09 10:55] VITALS: BP 186/96; PULSE 76; RESP 16; O2SAT 100
[2024-12-09 11:00] VITALS: BP 182/76; PULSE 72; RESP 16; O2SAT 100
--- NOTE | 2024-12-09 11:01 | CT_ITS ---
CT/Pelvis without IV Contrast
[2024-12-09 11:57] VITALS: BP 182/76; PULSE 72; RESP 16; TEMP 36.8; O2SAT 100
--- NOTE | 2024-12-09 12:19 | ED.RN ---
this rn observed pt daughter grabbing a wheelchair, when this rn asked daughter was she was doing, daughter replied if yoy cant get me my fucking paperwork were leaving, she hasnt eaten all morning shes ab to pass out this rn emphasized that we could bring her food and there may be information on the discharge instructions the group home may need. the daughter replied they can send it to them i dont care we are leaving this rn educated pt daughter that we do not send discharge instructions. pt daughter did not reply to this rn. pt daughter and pt left facility. dr hillman notified
== END 2024-12-09 12:22 | disposition home or self-care (01) ==
PROVIDERS: Emergency Provider Student in an Organized Health Care Education/Training Program; PCP Family Medicine; Visit Provider Student in an Organized Health Care Education/Training Program
DX: S40.012A Contusion of left shoulder, initial encounter (principal); G20.A1 Parkinson's disease without dyskinesia, without mention of fluctuations; I10 Essential (primary) hypertension; E78.5 Hyperlipidemia, unspecified; Z90.710 Acquired absence of both cervix and uterus; T14.8XXA Other injury of unspecified body region, initial encounter; W01.10XA Fall on same level from slipping, tripping and stumbling with subsequent striking against unspecified object, initial encounter; Y92.129 Unspecified place in nursing home as the place of occurrence of the external cause; Z79.899 Other long term (current) drug therapy; Z90.49 Acquired absence of other specified parts of digestive tract
CPT/HCPCS: 70450; 71046; 72125; 72170; 72192; 73030; 99284; A4216

== ENCOUNTER 2024-12-26 06:48 | Emergency (ER) | payer MEDICARE, OTHER, SELFPAY ==
[2024-12-26 06:49] VITALS: BP 130/57; PULSE 92; RESP 16; TEMP 36.6; O2SAT 95; BMI 23.1
--- NOTE | 2024-12-26 07:02 | EDS_ITS ---
HPI HPI - Fall History of Present Illness Chief Complaint: Fall Informant: patient, EMS and SNF Narrative Narrative: Patient is a 79-year-old female with a history of Parkinson's disease presenting to the ED after a fall last night and again this morning, the patient thinks. - Reports multiple falls this week; uncertain of the exact cause of the falls, but suspects it may be related to Parkinson's disease affecting her mobility. - Sustained a bruise and scrape on her left arm during the fall. - Denies pain in the abdomen, chest, head, back, neck, or hips, or anywhere else. - Denies recent illness. - Resides at [facility], an assisted living facility; fall was witnessed by an aide per patient, but no report from facility given. - Denies using a walker at the time of the fall because aide was with her. [facility] Medical History Blindness left eye category 5, normal vision right eye Unsteadiness on feet Difficulty in walking Anemia Lung nodule Depression Wrist fracture, right Orthostatic hypotension Essential hypertension Subarachnoid hemorrhage following injury Hyperlipidemia Parkinson's disease Home Medications ?Medication ?Instructions ?Recorded ?Last Taken ?Type atorvastatin 10 mg tablet 10 mg PO QHS HYPERLIPIDEMIA 03/28/23 Unknown History carbidopa 25 mg-levodopa 100 mg 1 tab PO 4XD NEUROCOGN ITIVE 03/28/23 Unknown History tablet DISORDER escitalopram oxalate 10 mg tablet 10 mg PO DAILY MAJOR DEPRESSIVE 03/28/23 Unknown History DISORD ferrous sulfate 325 mg (65 mg 325 mg PO DAILY ANEMIA 0 03/28/23 Unknown History iron) tablet artifi.tears(hypromellose)(PF) 1.7 1 drp ophthalmic (e ye) TID DRYNESS 07/03/24 Unknown History % eye drops with applicator midodrine 5 mg tablet 7.5 mg PO TID HTN 09/03/24 U nknown History acetaminophen 325 mg capsule 650 mg PO Q6H PRN fever o r pain 09/23/24 Unknown History bisacodyl 10 mg rectal suppository 10 mg LA Q12H PRN c onstipation 09/23/24 Unknown History docusate sodium 100 mg capsule 100 mg PO Q12H PRN cons tipation 09/23/24 Unknown History (Col-Rite) lorazepam 0.5 mg tablet 0.5 mg PO .COMPLEX ANXIETY 0 09/23/24 Unknown History magnesium hydroxide 400 mg/5 mL 30 ml PO Q12H PRN cons tipation 09/23/24 Unknown History oral suspension (Dulcolax (magnesium hydroxide)) ondansetron 4 mg disintegrating 4 mg PO Q6H PRN nausea and vomiting 09/23/24 Unknown History tablet polyethylene glycol 3350 17 17 g PO DAILY PRN constipa tion 09/23/24 Unknown History gram/dose oral powder (Miralax) Allergy/AdvReac Type Severity Reaction Status Date / Time amoxicillin (From Trimox) Allergy Hives Verified 12/26/24 06:49 Family History Mother Hypertension Heart disease Diabetes Father Hypertension Emphysema lung Surgical History Hx laparoscopic cholecystectomy History of hysterectomy Social History Smoking Status: Never smoker alcohol intake: never substance use type: does not use caffeine: Yes Type: coffee Number of servings: 2 additional social history: pt denies vaping, denies edibles, denies marijuana use, denies aspirin and denies ibuprofen use, pt denies family history of blood clots/blood disorders. ROS ROS ED Constitutional Constitutional ED: Denies chills or fever(s) Eyes Eyes: Denies change in vision or diplopia ENT ENT ED: Denies ear pain, epistaxis, facial pain or rhinorrhea Cardiovascular Cardiovascular: Denies chest pain or palpitations Respiratory/Chest Respiratory/Chest: Denies cough or dyspnea Gastrointestinal Gastrointestinal: Denies abdominal pain, diarrhea, melena, nausea or vomiting Genitourinary Genitourinary ED: Denies dysuria or hematuria Musculoskeletal Musculoskeletal: Denies back pain, extremity pain or neck pain Integumentary Reports Abrasions; Denies abscess, laceration or rash Neurologic Neurologic: Denies headache(s), paresthesias or weakness EXAM Physical Exam Const Vital Signs: 12/26/24 06:49 12/26/24 06:54 Temperature 97.9 F Temperature Source Oral Pulse Rate 92 Respiratory Rate 16 Respiratory Effort Normal Non-Labored Respiratory Depth Normal Respiratory Pattern Normal Blood Pressure 130/57 H Blood Pressure Mean 81 Pulse Ox 95 Oxygen Delivery Method Room Air Room Air Positive well nourished and well developed General Appearance ED: well developed and NAD HEENT Reports TM's clear and nasal mucous membranes and turbinates normal HEENT Narrative: No Fontenot sign, no raccoon eyes, no CSF otorhinorrhea, no hemotympanum. atraumatic Face and Sinus: Negative for facial tenderness Tympanic Membrane ED: Yes TM's clear Eyes PERRL and EOMs intact bilaterally Visual Acuity: other Other Details: no entrapment or pain with extraocular movements Neck full ROM and supple General: Negative for tenderness Chest Wall inspection of chest normal and palpation of chest normal Chest: symmetrical chest wall rise; Negative for crepitus or tenderness Resp normal respiratory effort and clear to auscultation bilaterally Percussion: other equal BS bilat Cardio no murmurs Rate: regular rate Rhythm: regular rhythm GI normal to inspection, nondistended, normoactive bowel sounds, soft to palpation and non-tender Back/Spine normal ROM Cervical Spine: Negative for cervical spine tenderness Thoracic Spine / Upper Back: Negative for thoracic spinal tenderness Lumbar Spine / Lower Back: Negative for lumbar spinal tenderness Extremity normal to inspection and full ROM Extremity Narrative: Contusion and minor abrasion that does not go beyond the dermis left lateral upper arm. Full range of motion throughout all joints of upper extremities without any limitation or discomfort. General Extremety ED: Negative for tenderness Neuro CN's II-XII intact bilaterally, moves all extremities, no focal motor deficits and no sensory deficits noted Neli Coma Scale: document GCS findings Spontaneous Obeys Commands Oriented 15 Sensorium / Orientation: awake, alert, oriented to person and oriented to place; Negative for oriented to time Psych mental status grossly normal and thought process normal Skin no wounds Skin Narrative: Abrasion contusion left upper arm. Other older contusions on forearms and hands. Lesions: no lesions Rashes: no rashes MDM MDM MDM Narrative Medical decision making narrative: I had staff call assisted living where the patient resides. Apparently an aide was with her and she fell and bumped her head which is why they sent her to have her seen. She has paperwork signed by physician that states she is DNR comfort care only. She does not have any symptoms of a head injury. She has an abrasion on her lateral upper arm that appears benign does not require sutures its already been cleaned and bandaged. I do not think she requires head imaging. Family member shortly thereafter arrived stating that she is comfort care and she would like to take her back to the facility which I am comfortable with. I reproduced her medication list and she is on no anticoagulants as she had a history of a traumatic subarachnoid hemorrhage in the past. Discharge Plan Triage Chief Complaint: Fall ED Provider: Brice Guerrero Dx/Rx/DC Orders Clinical Impression: Contusion of arm, left, Fall from slip, trip, or stumble, Parkinson's disease Instructions: Bruises (Contusions) Prescriptions: No Action atorvastatin 10 mg tablet 10 mg PO QHS carbidopa-levodopa 25-100 mg tablet 1 tab PO 4XD escitalopram oxalate 10 mg tablet 10 mg PO DAILY ferrous sulfate 325 mg (65 mg iron) tablet 325 mg PO DAILY midodrine 5 mg tablet 7.5 mg PO TID Rx Instructions: do not give last dose of day after 6PM or within 4 hrs of bedtime artifi.tears(hypromellose)(PF) 1.7 % drops with applicator 1 drp ophthalmic (eye) TID acetaminophen 325 mg capsule 650 mg PO Q6H PRN (Reason: fever or pain) bisacodyl 10 mg suppository 10 mg LA Q12H PRN (Reason: constipation) docusate sodium [Col-Rite] 100 mg capsule 100 mg PO Q12H PRN (Reason: constipation) lorazepam 0.5 mg tablet 0.5 mg PO .COMPLEX Rx Instructions: 0.5 mg orally 30 MIN PRIOR TO TRIGGERING EVENT, MAY TAKE 2ND DOSE 30 MIN AFTER IF NEEDED; magnesium hydroxide [Dulcolax (magnesium hydroxide)] 400 mg/5 mL suspension 30 ml PO Q12H PRN (Reason: constipation) Rx Instructions: IF NO BM IN 3 CONSECUTIVE DAYS ondansetron 4 mg tablet,disintegrating 4 mg PO Q6H PRN (Reason: nausea and vomiting) polyethylene glycol 3350 [Miralax] 17 gram/dose powder 17 g PO DAILY PRN (Reason: constipation) Primary Care Provider: Yahaira Winn Referrals: Yahaira Winn MD [Primary Care Provider, Family Practice] - As Needed Print Language: Danish Disposition Disposition: Home, Self Care
[2024-12-26 07:09] VITALS: BP 130/57; PULSE 92; RESP 16; TEMP 36.6; O2SAT 95
== END 2024-12-26 07:18 | disposition home or self-care (01) ==
LOC: ED 07:15
PROVIDERS: Emergency Provider Emergency Medicine; PCP Family Medicine; Visit Provider Emergency Medicine
DX: S40.022A Contusion of left upper arm, initial encounter (principal); G20.C Parkinsonism, unspecified; W19.XXXA Unspecified fall, initial encounter
CPT/HCPCS: 99284

== ENCOUNTER → 2024-12-31 | Outpatient (REF) | payer MEDICARE, OTHER, SELFPAY ==
[2024-12-31 08:09] LABS: Mucous, Urine 0 SEEN /hpf (<or=2+); Red Blood Cells-Urine 0 SEEN /hpf (0-5); Squamous Epithelial Cells - UA 0 SEEN /hpf (5-10)
[2024-12-31 08:40] LABS: Color, Urine Yellow (Yellow); Glucose, Dipstick Normal (Normal); Ketone-Dipstick 5 mg/dl (Negative); Leukocyte Esterase-Dipstick Negative /ul (Negative); Nitrite-Dipstick Negative (Negative); Occult Blood-Urine 25 /ul (Negative); Protein-Dipstick 30 mg/dl (Negative); Specific Gravity, Urine 1.015 (1.002-1.030); Urine Bilirubin Dipstick Negative (Negative)
== END ==
PROVIDERS: PCP Family Medicine
DX: N39.0 Urinary tract infection, site not specified (principal)
CPT/HCPCS: 81001; 87086; 87088

== ENCOUNTER 2025-01-01 16:19 | Emergency (ER) | payer MEDICARE, OTHER, SELFPAY ==
[2025-01-01 16:20] VITALS: BP 164/71; PULSE 96; RESP 18; TEMP 37.1; O2SAT 96; BMI 23.6
[2025-01-01 16:23] VITALS: BP 164/71; PULSE 78; RESP 16; TEMP 37.1; O2SAT 97
--- NOTE | 2025-01-01 16:55 | CT_ITS ---
PROCEDURE: CT SINUS/FACIAL BONE WITHOUT CONTRAST 01/01/2025 REASON FOR EXAM: Right-sided dental pain with swelling and drainage. TECHNIQUE: Procedure Code: CTSI Modality: CT Procedure: SINUS/FACIAL BONE Coronal and Sagittal reconstruction series were provided. One or more dose reduction techniques were used (e.g., Automated exposure control, adjustment of the mA and/or kV according to patient size, use of iterative reconstruction technique). RADIATION DOSE SUMMARY: CTDlvol: 29.38 mGy DLP: 782.53 mGycm COMPARISON: CT head 12/09/2024 FINDINGS: No acute maxillofacial bone fracture. No aggressive osseous erosion/destruction or periosteal reaction. Edentulous maxilla and mandible. Well-aerated paranasal sinuses and visualized mastoid air cells. Small mucosal polyp/retention cyst in the floor of right maxillary sinus. Prior left orbital cataract surgery. Otherwise unremarkable orbits. No significant abnormality appreciated within the imaged superficial facial soft tissues. No discrete drainable fluid collection/abscess, subject to the limitation imposed by lack of IV contrast. CT/Sinus/Facial Bone IMPRESSION: No acute findings to account for patient's symptoms. Edentulous maxilla and ma ndible without any erosive osseous changes. No drainable fluid collection/abscess appreciated. Reading Location: [id number]
--- NOTE | 2025-01-01 17:00 | EDS_ITS ---
HPI History of Present Illness Chief Complaint: Dental Narrative Narrative: History and physical is mildly limited secondary to Parkinson's disease. 79-year-old female presents via EMS with her daughter from her assisted living. Was reported that she has been having pain in her right upper and lower jaw. Home health reported that patient has a tooth that they suspected was abscessed with purulent drainage and pain. Patient denies any fevers or chills, no nausea or vomiting. Her daughter is at the bedside and states that she has no teeth but wears dentures, and is having pain where her dentures might be hitting. No exacerbating or alleviating factors. They state that she has fallen a few times in the last 1 to 2 weeks, but over the last 2 days she has a wheelchair which she can use now. She presents because of the reported purulent drainage in her mouth, upper and lower jaw pain, and frequent falls. [facility] Medical History Blindness left eye category 5, normal vision right eye Unsteadiness on feet Difficulty in walking Anemia Lung nodule Depression Wrist fracture, right Orthostatic hypotension Essential hypertension Subarachnoid hemorrhage following injury Hyperlipidemia Parkinson's disease Home Medications Medication Instructions Recorded Last Taken Type atorvastatin 10 mg tablet 10 mg PO QHS HYPERLIPIDEMIA 03/28/23 Unknown History carbidopa 25 mg-levodopa 100 mg 1 tab PO 4XD NEUROCOGN ITIVE 03/28/23 Unknown History tablet DISORDER escitalopram oxalate 10 mg tablet 10 mg PO DAILY MAJOR DEPRESSIVE 03/28/23 Unknown History DISORD ferrous sulfate 325 mg (65 mg 325 mg PO DAILY ANEMIA 0 03/28/23 Unknown History iron) tablet artifi.tears(hypromellose)(PF) 1.7 1 drp ophthalmic (e ye) TID DRYNESS 07/03/24 Unknown History % eye drops with applicator midodrine 5 mg tablet 7.5 mg PO TID HTN 09/03/24 U nknown History acetaminophen 325 mg capsule 650 mg PO Q6H PRN fever o r pain 09/23/24 Unknown History bisacodyl 10 mg rectal suppository 10 mg [place] Q12H PRN c onstipation 09/23/24 Unknown History docusate sodium 100 mg capsule 100 mg PO Q12H PRN cons tipation 09/23/24 Unknown History (Col-Rite) lorazepam 0.5 mg tablet 0.5 mg PO .COMPLEX ANXIETY 0 09/23/24 Unknown History magnesium hydroxide 400 mg/5 mL 30 ml PO Q12H PRN cons tipation 09/23/24 Unknown History oral suspension (Dulcolax (magnesium hydroxide)) ondansetron 4 mg disintegrating 4 mg PO Q6H PRN nausea and vomiting 09/23/24 Unknown History tablet polyethylene glycol 3350 17 17 g PO DAILY PRN constipa tion 09/23/24 Unknown History gram/dose oral powder (Miralax) Allergy/AdvReac Type Severity Reaction Status Date / Time amoxicillin (From Trimox) Allergy Hives Verified 01/01/25 16:23 Family History Mother Hypertension Heart disease Diabetes Father Hypertension Emphysema lung Surgical History Hx laparoscopic cholecystectomy History of hysterectomy Social History Smoking Status: Never smoker alcohol intake: never substance use type: does not use caffeine: Yes Type: coffee Number of servings: 2 additional social history: pt denies vaping, denies edibles, denies marijuana use, denies aspirin and denies ibuprofen use, pt denies family history of blood clots/blood disorders. ROS ROS ED ROS Narrative Review of systems positive for frequent falls over the last week and a half, reported right upper and lower jaw pain with reported purulent drainage. Patient denies fevers or chills, no nausea or vomiting, no difficulty breathing or swallowing. EXAM Physical Exam Narrative Exam Narrative: Afebrile. Vital signs noted. Nontoxic-appearing. Cardiovascular examination regular rate and rhythm. Lungs clear to auscultation bilaterally. Abdomen is soft and nontender. Inspection of the mouth does not show any abscessed tooth or dental caries. I see no purulent drainage from the right upper or lower jaw. Airway is patent. No drooling or trismus. Neck soft and supple without meningismus. No erythema externally on the maxilla or the mandible. No crepitance. Positive contusion left upper extremity/ecchymosis. Const Vital Signs: 01/01/25 16:20 01/01/25 16:23 11/25/25 18:47 Temperature 98.8 F 98.8 F 98.8 F Temperature Source Oral Oral Pulse Rate 96 78 95 Respiratory Rate 18 16 16 Blood Pressure 164/71 H 164/71 H 134/67 H Blood Pressure Mean 102 102 89 Pulse Ox 96 97 100 Oxygen Delivery Method Room Air Room Air MDM MDM MDM Narrative Medical decision making narrative: The differential diagnosis includes but not limited to mouth abscess versus phlegm. Patient is afebrile here. She is nontoxic-appearing. I see no evidence of a fluctuant abscess in her mouth, and additionally she has no teeth so I doubt dental abscess. I reviewed her problem list and she has had history of frequent falls as well as blindness of the left eye and unsteadiness on the feet with history of Parkinson disease. I will obtain a CT of the facial bones to look for any fluid collection as well as CBC and BMP and UA. Had discussion with her daughter regarding observation versus admission for higher level of care in a senior living facility. I reviewed her laboratory work and she has normal white count of 8.9 with hemoglobin stable at 9.4, platelet count 300, BMP remarkable for BUN of 22 with normal creatinine 0.86, glucose of 100 with a normal anion gap of 11. Urinalysis obtained and reviewed and there is no evidence of infection with 0-5 WBCs and 0-5 RBCs. I do not feel antibiotics are indicated. I reviewed the radiology report of the CT of the facial bones including the jaw. According to the radiology report there is no and evidence of bony erosion or fluid collection or for the cause of her pain. At this point in time, her other daughter is at the bedside. She was informed of the results of the CT scan and laboratory work. I discussed with her observation for placement in a senior living facility/rehab given her frequent falls, but she declined. She requested that the patient be returned to assisted living via ambulance. At this point in time, I feel she can be discharged to follow-up with her primary care provider. I do not feel any antibiotics are indicated. Disposition is discharged in stable condition. History & Record Review Discussion w/independent historian: Patient and Family (Daughter) Additional record(s) reviewed:: Prior ED visit (Seen on the , approximately 6 days ago for contusion of arm after fall.) Lab Data Attestation: I reviewed the patient's lab results. Labs: Laboratory Results - last 24 hr 01/01/25 01/01/25 16:46 17:07 WBC 8.9 RBC 3.18 L Hgb 9.4 L Hct 28.9 L MCV 90.9 MCH 29.6 MCHC 32.5 RDW Std Deviation 46.7 H RDW Coeff of [place] 13.9 Plt Count 300 MPV 9.9 Immature Gran % (Auto) 0.300 Neut % (Auto) 75.0 H Lymph % (Auto) 13.0 L [place] % (Auto) 9.9 Eos % (Auto) 1.5 Baso % (Auto) 0.3 Absolute Neuts (auto) 6.7 Absolute Lymphs (auto) 1.15 Nucleated RBC % 0 Sodium 137 Potassium 3.5 Chloride 99 Carbon Dioxide 26.6 Anion Gap 11 BUN 22 H Creatinine 0.86 Estim Creat Clear Calc 44.60 L Est GFR (MDRD) Non-Af 69 BUN/Creatinine Ratio 25.5 H Glucose 100 H Calcium 9.1 Urine Color Yellow Urine Clarity Clear Urine pH 6.0 Ur Specific [place] 1.025 Urine Protein 30 H Urine Glucose (UA) Normal Urine Ketones Negative Urine Occult Blood 150 H Urine Nitrite Negative Urine Bilirubin Negative Urine Urobilinogen Normal Ur Leukocyte Esterase 25 H Urine RBC 0-5 SEEN Urine WBC 0-5 SEEN Ur Squamous Epith Cells 0-5 SEEN Ur Transition Epith Cell 0-5 SEEN Urine Bacteria RARE Hyaline Casts 0-5 SEEN Urine Mucus 0 SEEN Radiography Diagnostic Testing: Clinical Impression(s) from Imaging Studies Facial/Sinus 01/01/25 16:55 IMPRESSION: No acute findings to account for patient's symptoms. Edentulous maxilla and mandible without any erosive osseous changes. No drainable fluid collection/abscess appreciated. Reading Location: [id number] Discharge Plan Triage Chief Complaint: Dental ED Provider: Hossein Smith Dx/Rx/DC Orders Clinical Impression: Parkinson's disease, Falls, Jaw pain Instructions: ED Pain, Acute, Uncertain Cause, ED Fall Prevention Prescriptions: No Action atorvastatin 10 mg tablet 10 mg PO QHS carbidopa-levodopa 25-100 mg tablet 1 tab PO 4XD escitalopram oxalate 10 mg tablet 10 mg PO DAILY ferrous sulfate 325 mg (65 mg iron) tablet 325 mg PO DAILY midodrine 5 mg tablet 7.5 mg PO TID Rx Instructions: do not give last dose of day after 6PM or within 4 hrs of bedtime artifi.tears(hypromellose)(PF) 1.7 % drops with applicator 1 drp ophthalmic (eye) TID acetaminophen 325 mg capsule 650 mg PO Q6H PRN (Reason: fever or pain) bisacodyl 10 mg suppository 10 mg [place] Q12H PRN (Reason: constipation) docusate sodium [Col-Rite] 100 mg capsule 100 mg PO Q12H PRN (Reason: constipation) lorazepam 0.5 mg tablet 0.5 mg PO .COMPLEX Rx Instructions: 0.5 mg orally 30 MIN PRIOR TO TRIGGERING EVENT, MAY TAKE 2ND DOSE 30 MIN AFTER IF NEEDED; magnesium hydroxide [Dulcolax (magnesium hydroxide)] 400 mg/5 mL suspension 30 ml PO Q12H PRN (Reason: constipation) Rx Instructions: IF NO BM IN 3 CONSECUTIVE DAYS ondansetron 4 mg tablet,disintegrating 4 mg PO Q6H PRN (Reason: nausea and vomiting) polyethylene glycol 3350 [Miralax] 17 gram/dose powder 17 g PO DAILY PRN (Reason: constipation) Primary Care Provider: Yahaira Winn Referrals: Yahaira Winn MD [Primary Care Provider, Family Practice] - As soon as possible Activity Restrictions/Additional Instructions: Continue to use your wheelchair to get around given your frequent falls. Talk to your primary care provider regarding upgrade in level of care to senior living facility as needed. Return with any new or worsening symptoms including fever. Print Language: Malian Disposition Disposition: Assisted Living Discharge Location: [facility] Discharge Date/Time: 01/01/25 20:40
[2025-01-01 17:07] LABS: Hematocrit 28.9 % (37-47); Hemoglobin 9.4 g/dL (12.0-15.0); Immature Granulocytes Count 0.030 X10^3/uL (0.0-0.0); Mean Corp Hgb Conc 32.5 g/dL (32-36); Mean Corpuscular Volume 90.9 fL (81-99); Mean Platelet Vol. 9.9 fl (6.2-12.0); NRBC Flagged by Analyzer 0 % (0-5); Platelet Count 300 K/mm3 (150-450); RBC Distribution Width CV 13.9 % (11.6-14.6); RBC Distribution Width SD 46.7 fl (35.1-43.9); Red Blood Count 3.18 M/mm3 (4.2-5.4); White Blood Count 8.9 K/mm3 (4.4-11.0)
[2025-01-01 17:12] LABS: Mucous, Urine 0 SEEN /hpf (<or=2+)
[2025-01-01 17:20] LABS: Color, Urine Yellow (Yellow); Glucose, Dipstick Normal (Normal); Ketone-Dipstick Negative (Negative); Leukocyte Esterase-Dipstick 25 /ul (Negative); Nitrite-Dipstick Negative (Negative); Occult Blood-Urine 150 /ul (Negative); Protein-Dipstick 30 mg/dl (Negative); Specific Gravity, Urine 1.025 (1.002-1.030); Urine Bilirubin Dipstick Negative (Negative)
[2025-01-01 17:35] LABS: Anion Gap 11 (5-15); BUN 22 mg/dL (4-19); BUN/Creat Ratio 25.5 RATIO (10-20); Calcium,Total 9.1 mg/dL (7.6-11.0); Carbon Dioxide 26.6 mmol/L (21.0-32.0); Chloride 99 mmol/L (98-108); Estimated Creatinine Clearance 44.60 ml/min (50-250); Glucose 100 mg/dL (70-99); Potassium 3.5 mmol/L (3.3-5.1)
[2025-01-01 18:00] LABS: Red Blood Cells-Urine 0-5 SEEN /hpf (0-5)
[2025-01-01 18:01] LABS: Squamous Epithelial Cells - UA 0-5 SEEN /hpf (5-10); Transitional Epithelial - Ur 0-5 SEEN /hpf (0-5)
[2025-01-01 18:47] VITALS: BP 134/67; PULSE 95; RESP 16; TEMP 37.1; O2SAT 100
== END 2025-01-01 20:40 | disposition home or self-care (01) ==
PROVIDERS: Emergency Provider Emergency Medicine; PCP Family Medicine; Visit Provider Emergency Medicine
DX: R68.84 Jaw pain (principal); G20.A1 Parkinson's disease without dyskinesia, without mention of fluctuations; Z97.2 Presence of dental prosthetic device (complete) (partial)
CPT/HCPCS: 70486; 80048; 81001; 85025; 99284; A4216

== ENCOUNTER → 2025-01-02 05:00 | Outpatient (REF) | payer MEDICARE, OTHER, SELFPAY ==
--- OUTSIDE RECORDS SUMMARY | 2025-01-02 04:55 | XMS RPT_ITS | CCD ---
Author Organization [facility] Inform ion Partnership [facility] Care Team Providers Care Lining Mechanic Name Role Phone Chico Collier MD Unavailable Chico Collier MD Unavailable [facility] Unavailable Phan SALAZAR, Dr. Alberts ([facility]) A Unavailable [facility] Unavailable [phone] Physical Therapy, David Bennett Unavailable [facility], . [facility] office Unavailable ([place]), [facility] Unavailable [facility] Unavailable Janeth Chávez RN Unavailable Unavailable Zack SOTON, Serena Unavailable Pratik TAVAREZ, Luxavi Vazquez Unavailable Malinda Christie Unavailable Unavailable Pratik HUYNH, Ana Cristina L Unavailable Unavail able Tree SOTON, Tavia Unavailable Unavailable Sherman HUYNH, Frida Hope Unavailable Unavaila grecia Meier LPN, Obi Unavailable Unavailable Phan HUYNH, Funmi Unavailable Eulalia SOTON, Sarah K Unavailable Tonie Stone Unavailable Unavailable Janeth Florez Unavailable Luis SOTON, America Unavailable Unavailab le Vess TRACTOR TRAILER TECHNICIAN, Necarleen L Unavailable Unavailable Ros SOTON, Barbara Unavailable [...] Care IVAN Pimentel DO Consulting Unavailable ASHLEY MARKET RESEARCH SPECIALIST-MUCK HAULER, HEENA Navarrete Consulting Unavaila grecia COLLIER MD, [...] Provider Dr. Joel Muniz MD Attending Provider Dr. Rahul Shetty MD Attending Provider Unavail able Dr. Yahaira Winn MD Referring Provider Cassie SALAZAR, Dr. Garcia Attending Provider Dr. Rahul Shetty MD Referring Provider Unavail able James CYLINDER INSPECTOR-CBarbara Attending Provider RAHUL SHETTY DO Attending Unavailable DR CHICO COLLIER MD Primary Care Kamran Rosenthal Attending Provider Unavailable Dr. Rahul Shetty DO Primary Care Provider [phone] Dr. Rahul Shetty DO Attending Provider [phone] Dr. Rahul Shetty DO Referring Provider [phone] Jennifer Roman Attending Provider Kendall PLATACJennifer Referring Provider Dr. Isis Mae MD Emergency Provider Unavailab juanis Winn MD, Dr. Yahaira Isaac Primary Care Physician Pa SALAZAR, Dr. Yahaira Isaac Referring Provider Dr. Jose Matthews MD Attending Physician Dr. Rahul Shetty MD Attending Physician Troy Shetty MD, Dr. Kay Referring Provider Unavail able Kamran Ya Attending Physician Unavailable Dr. Rahul Shetty DO Primary Care Physician [phone] Dr. Rahul Shetty DO Attending Physician Jennifer Roman Attending Physician Franklin SALAZAR, Dr. Kessler Attending Physician Dr. Isis Mae MD Attending Physician Unavaila grecia Mae MD, Dr. Marinelli Emergency Department Physici an Unavailable Checo Reid Attending Unavailable Jennifer Argueta NP Referring Unavailable Rahul Shetty Primary Care Unavailable [facility] [place] Attending Unavailable Pa, Yahaira S Primary Care Unavailable Rahul Maldonado Attending Unavailable Rahul Maldonado Referring Unavailable Jolliff, Yahaira S Primary Care Unavailable Rahul Maldonado Attending Unavailable Inéslliff, Yahaira S Primary Care Unavailable Isis Mae Attending Unavailable Rahul Shetty Primary Care Unavailable Isis Mae Attending Unavailable Jolliff, Yahaira S Primary Care Unavailable Rahul Maldonado Attending Unavailable Jolliff, Yahaira S Primary Care Unavailable Shetty, Rahul Primary Care Unavailable Shetty, Rahul Referring Unavailable Shetty, Rahul Attending Unavailable Shetty QUENTIN, Rahul Attending Unavailable Jolliff, Yahaira S Primary Care Unavailable Shetty OLS, Rahul Attending Unavailable Jolliff, Yahaira S Primary Care Unavailable Shetty OLS, Arhul Attending Unavailable Jolliff, Yahaira S Primary Care Unavailable Joel Muniz Attending Unavailable Jolliff, Yahaira S Primary Care Unavailable Kendall CYLINDER INSPECTOR, Jennifer Referring Unavailable Kendall CYLINDER INSPECTOR, Jennifer Attending Unavailable Shetty, Rahul Primary Care Unavailable Janeth Ribeiro Attending Unavailable Shetty, Rahul Primary Care Unavailable Shetty OLS, Rahul Attending Unavailable Shetty OLS, Rahul Referring Unavailable Jolliff, Yahaira S Primary Care Unavailable Shetty QUENTIN, Rahul Attending Unavailable Shetty, Rahul Primary Care Unavailable Stan Green Primary Care Unavailable VaccariChico ford Referring Unavailable Vaccariello, Chico Attending Unavailable Kendall CYLINDER INSPECTOR, Jennifer Attending Unavailable Shetty, Rahul Primary Care Unavailable Shetty, Rahul Referring Unavailable Jolliff, Yahaira S Referring Unavailable Jolliff, Yahaira S Primary Care Unavailable Jose Matthews Attending Unavailable Barbara Ramirez Attending Unavailable Jolliff, Yahaira S Primary Care Unavailable Jolliff, Yahaira S Referring Unavailable Jolliff, Yahaira S Primary Care Unavailable Jolliff, Yahaira S Referring Unavailable Jose Matthews Attending Unavailable Checo Reid Attending Unavailable Shetty, Rahul Referring Unavailable Jolliff, Yahaira S Primary Care Unavailable Kendall CYLINDER INSPECTOR, Jennifer Attending Unavailable Shetty, Rahul Referring Unavailable Shetty, Rahul Primary Care Unavailable Jolliff, Yahaira S Referring Unavailable Jolliff, Yahaira S Primary Care Unavailable Jose Matthews Attending Unavailable SiskaJose Attending Unavailable Jolliff, Yahaira S Primary Care Unavailable Jolliff, Yahaira S Referring Unavailable Allergies Allergy Classification Reported Allergen(s) Allergy Type Date of Onset Reaction(s) Facility (20 sources) Penicillin V Drug Allergy [facility] (20 sources) predniSONE Drug Allergy [facility] (16 sources) Amoxicillin; Translations: [amoxicillin] Drug Allergy 4 [facility] (1 source) Amoxicillin Drug Allergy [facility] (1 source) predniSONE Drug Allergy [facility] (1 source) Amoxicillin Drug Allergy [facility] Medications Current Medications Medication Drug Class(es) Dates Sig (Normalized) Sig (Original) acetaminophen 325 mg oral capsule (20 sources) Start: 09-23-2024 take 2 capsules by mouth every six hours as needed for pain Acetaminophen 325 mg capsule Active 650 mg PO EVERY 6 HOURS as needed for fever or pain September 23, 2024 12:00am Complies with drug therapy Start: 03-28-2023 End: 09-23-2024 take 1 tablet by mouth every eight hours as needed Acetaminophen 650 mg tablet extended release Discontinued 650 mg PO Q8H as needed September 03, 2024 3:35pm September 23, 2024 8:35am Start: 03-02-2023 take 1 capsule by mo [facility] every four hours as needed for pain Tylenol 325 mg oral capsule Dose : 650 mg =, Oral, q4h, PRN Muscle pain, 0 Refill(s) Start Date: 03/02/23 Status: Ordered Repeat number: 1 atenolol 25 mg oral tablet (20 sources) beta-Adrenergic Austin Start: 01-14-2023 atorvastatin 10 mg oral tablet (20 sources) HMG-CoA Reductase Inhibitor Start: 03-02-2023 take 1 tablet by mouth at bedtime Atorvastatin 10 mg tablet Active 10 mg PO AT BEDTIME March 28, 2023 1:00am HYPERLIPIDEMIA Complies with drug therapy Start: 02-09-2023 atorvastatin 1 0 mg oral tablet Dose : 10 mg = 1 tab(s), Oral, qDay, # 30 tab(s), 0 Refill(s) Start Date: 02/09/23 Status: Ordered Start: 12-27-2022 bisacodyl 10 mg rectal suppository (15 sources) Stimulant Laxative Start: 09-23-2024 Bisacodyl 1 0 mg suppository Active 10 mg RC Q12H as needed for constipation September 23, 2024 12:00am Complies with drug therapy Start: 03-28-2023 End: 09-03-2024 Bisacodyl (Dulcolax (Bisacod yl)) 10 mg suppository Discontinued 10 mg RC DAILY as needed March 28, 2023 1:00am September 03, 2024 3:37pm carbidopa 25 mg / levodopa 100 mg oral tablet (20 sources) Aromatic Amino Acid Decarboxylation Inhibitor, Aromatic Amino Acid Start: 03-28-2023 take 1 tablet by mouth four times daily Carbidopa-Levodopa Active 1 TABLET PO .QID March 28, 2023 12:00am Start: 03-02-2023 Carbidopa-Levo dopa 25-100 mg tablet Active 1 {tbl} PO 4 times daily March 28, 2023 1:00am NEUROCOGNITIVE DISORDER Complies with drug therapy Start: 02-15-2023 take 1 tablet by doris [...] Ordered docusate sodium 100 mg oral capsule (17 sources) Start: 09-23-2024 take 1 capsule by mouth every twelve hours as needed for constipation Docusate Sodium (Col-Rite) 100 mg capsule Active 100 mg PO Q12H as needed for constipation September 23, 2024 12:00am Complies with drug therapy Start: 03-02-2023 End: 09-03-2024 take 1 capsule by mouth twice daily as needed Docusate Sodium 100 mg capsule Discontinued 100 mg PO TWICE A DAY as needed March 28, 2023 1:00am September 03, 2024 3:37pm escitalopram 10 mg oral tablet (20 sources) Serotonin Reuptake Inhibitor Start: 01-14-2023 take 1 tablet by mouth once daily Escitalopram Oxalate 10 mg tablet Active 10 mg PO DAILY March 28, 2023 1:00am MAJOR DEPRESSIVE DISORD Complies with drug therapy ferrous sulfate 325 mg oral tablet (16 sources) Start: 03-02-2023 take 1 tablet by mouth once daily Ferrous Sulfate 325 mg (65 mg iron) tablet Active 325 mg PO DAILY March 28, 2023 1:00am ANEMIA Complies with drug therapy Start: 01-03-2024 take 65 mg by mouth once daily ferrous sulfate Oral, qDay, takes 65 mg, 0 Refill(s) Start Date: 02/09/23 Status: Ordered hypromellose 17 mg/ml ophthalmic solution (11 sources) Start: 07-03-2024 Artifi.Tears(Hypromellose)(P f) 1.7 % drops with applicator Active 1 NMA OPHTHALMIC THREE TIMES A DAY July 03, 2024 12:00am DRYNESS Complies with drug therapy LORazepam 0.5 mg oral tablet (3 sources) Benzodiazepine Start: 09-23-2024 Lorazepam 0.5 mg tablet Acti ve 0.5 mg PO .COMPLEX September 23, 2024 12:00am ANXIETY 0.5 mg orally 30 MIN PRIOR TO TRIGGERING EVENT, MAY TAKE 2ND DOSE 30 MIN AFTER IF NEEDED; Complies with drug therapy Start: 08-17-2024 End: 08-31-2024 Ativan 0.5 mg oral tablet Do se : 0.5 mg = 1 tab(s), Oral, q8h, 1 tablet orally 30 min prior to triggering event. May take 2nd dose after 30 min if needed. MUST HAVE RIDE HOME, X 14 day(s), # 4 tab(s), 0 Refill(s), 08/31/24 1:04:00 PM EDT, Pharmacy: [facility], Claustrophobia, 160, cm, 02/15/23 17:41:00 EST, Height, 58.6, kg, 02/28/23 5:44:00 EST, Dosing Weight Start Date: 08/17/24 Stop Date: 08/31/24 Status: Ordered Quantity: 4.0 Unit: tab(s) Repeat number: 1 Indications: Claustrophobia; magnesium hydroxide 80 mg/ml oral suspension (15 sources) Start: 09-23-2024 Magnesium Hydr oxide (Dulcolax (Magnesium Hydroxide)) 400 mg/5 mL suspension Active 30 mL PO Q12H as needed for constipation September 23, 2024 12:00am IF NO BM IN 3 CONSECUTIVE DAYS Complies with drug therapy Start: 09-23-2024 Magnesium Hydr oxide (Dulcolax (Magnesium Hydroxide)) 400 mg/5 mL suspension Active 30 mL PO Q12H as needed for constipation September 23, 2024 12:00am IF NO BM IN 3 CONSECUTIVE DAYS Start: 03-28-2023 End: 09-03-2024 take 1 mL by mouth twice daily as needed Magnesium Hydroxide (Milk Of Magnesia) 400 mg/5 mL suspension Discontinued 30 mL PO TWICE A DAY as needed March 28, 2023 1:00am September 03, 2024 3:37pm Start: 03-28-2023 End: 09-03-2024 take 1 mL [...] TWICE A DAY March 28, 2023 12:00am Milk of Magnesia (2 sources) Start: 03-02-2023 [...] Date: 03/02/23 Status: Ordered ondansetron 4 mg disintegrating oral tablet (13 sources) Serotonin-3 Receptor Antagonist Start: 09-23-2024 take 1 tablet by mouth every six hours as needed for nausea and vomiting Ondansetron 4 mg tablet,disintegrating Active 4 mg PO EVERY 6 HOURS as needed for nausea and vomiting September 23, 2024 12:00am Complies with drug therapy Start: 07-03-2024 End: 09-03-2024 take 1 tablet by mouth every six hours as needed Ondansetron Hcl 4 mg tablet Discontinued 4 mg PO EVERY 6 HOURS as needed July 03, 2024 12:00am September 03, 2024 3:37pm polyethylene glycol 3350 93040 mg powder for oral solution (17 sources) Osmotic Laxative Start: 09-23-2024 Polyethylene Glycol 3350 (Miralax) 17 gram/dose powder Active 17 g PO DAILY as needed for constipation September 23, 2024 12:00am Complies with drug therapy Start: 03-02-2023 End: 09-03-2024 Polyethylene Glycol 3350 (Mi ralax) 17 gram/dose powder Discontinued 17 g PO DAILY March 28, 2023 1:00am September 03, 2024 3:37pm Completed/Discontinued Medications Medication Drug Class(es) Dates Sig [...] Status: Ordered amLODIPine 5 mg oral tablet (12 sources) Dihydropyridine Calcium Channel Austin Start: 07-03-2024 End: 09-23-2024 take 1 tablet by mouth once daily Amlodipine 5 mg tablet Discontinued 5 mg PO daily July 03, 2024 12:00am September 23, 2024 8:36am Start: 02-15-2023 amLODIPine 5 m g oral tablet Dose : 5 mg = 1 tab(s), Oral, qDay, 0 Refill(s) Start Date: 02/15/23 Status: Ordered meloxicam 7.5 mg oral tablet (20 sources) Nonsteroidal Anti-inflammatory Drug Start: 06-06-2015 End: 12-22-2015 midodrine hydrochloride 5 mg oral tablet (20 sources) alpha-Adrenergic Agonist Start: 03-02-2023 End: 09-03-2024 [...] Status: Ordered mineral oil 1000 mg/ml enema (13 sources) Start: 03-28-2023 End: 07-03-2024 Mineral Oil [...] penicillin] 01-14-2023 Episodic Blindness and vision defects (13 sources) Blind left eye, normal vision right [...] sources) Anemia, unspecified; Translations: [Anemia, unspecified] Onset: 07-27-2024 Episodic Delirium, dementia, and amnestic and other cognitive disorders (20 sources) 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; Translations: [Dementia with Lewy bodies] 01-26-2023 Chronic Diabetes mellitus without complication (1 source) Acetonuria; Translations: [Acetonuria] Onset: 12-06-2024 Episodic Disorders of lipid metabolism (20 sources) Hyperlipidemia; Translations: [Hyperlipidemia, unspecified] Onset: 08-27-2024 01-26-2023 Chronic E Codes: Fall (20 sources) [...] for prophylactic vaccination and inoculation against influenza 10-16-2014 Episodic Intracranial injury (2 sources) Intracranial injury [...] body of left forearm, initial encounter] Onset: 10-12-2024 06-26-2024 Episodic Open wounds of head; neck; [...] High risk drug monitoring status; Translations: [Other halfway (current) drug therapy] 11-14-2013 Episodic Other aftercare (1 source) Long-term current use of drug therapy; Translations: [Other halfway (current) drug therapy] Episodic Other and unspecified benign neoplasm (20 sources) Melanocytic nevus; Translations: [Melanocytic nevi, unspecified] 08-06-2020 Episodic Other circulatory disease (20 sources) Orthostatic hypotension; Translations: [Orthostatic hypotension] Onset: [...] blood-pressure reading, without diagnosis of hypertension] Onset: 10-31-2024 Episodic Other circulatory disease (1 source) Orthostatic hypotension; Translations: [Orthostatic hypotension] Onset: 10-12-2024 Episodic Other connective tissue disease (20 sources) Recurrent falls ; Translations: [Repeated falls] 01-26-2023 Episodic Other connective tissue disease (2 sources) Repeated falls; Translations: [Repeated falls] Onset: 05-19-2022 Episodic Other gastrointestinal disorders (20 sources) Occult blood in stools; Translations: [Other fecal abnormalities] 07-03-2024 Episodic Other injuries and conditions due [...] Onset: 02-12-2023 Episodic Other lower respiratory disease (15 sources) Nodule of lung; Translations: [Solitary pulmonary nodule] 02-16-2023 Episodic Comment on above: 3mm right upper lobe Other nervous system disorders (13 sources) Difficulty walking; Translations: [Difficulty in walking, not elsewhere classified] 03-28-2023 Chronic Other nervous system disorders (1 source) Aphasia; Translations: [Aphasia] Onset: 09-27-2024 Chronic Other nervous system disorders (1 source) Abnormal gait; Translations: [Unspecified abnormalities of gait and mobility] Episodic Other nervous system disorders (13 sources) Unsteady when standing; Translations: [Unsteadiness on feet] 03-28-2023 Episodic Other nervous system disorders (12 sources) H/O: brain disorder; Translations: [Personal history of other diseases of the nervous system and sense organs] 06-26-2024 Episodic Other nervous system disorders (2 sources) H/O: epilepsy; Translations: [Personal history of other diseases of the nervous system and sense organs] 10-04-2024 Episodic Other non-epithelial cancer of skin (20 [...] skin and subcutaneous tissue, unspecified] 07-08-2021 Episodic Parkinson`s disease (1 source) Parkinson`s disease; Translations: [Parkinson's disease without dyskinesia, without mention of fluctuations] Onset: 10-12-2024 Residual codes; unclassified (20 sources) Pneumococcal vaccination [...] out because of patient's decision] 10-01-2019 Episodic Sprains and strains (20 sources) Muscle strain; Translations: [Strain of unspecified muscle(s) and tendon(s) at lower leg level, right leg, initial encounter] 05-28-2015 Episodic Superficial injury; contusion (20 sources) Abrasion of left forearm; Translations: [Abrasion of left forearm, subsequent encounter] 01-06-2022 Episodic Unclassified (20 sources) Symptomatic parkinsonism; Translations: [Paralysis agitans] 01-26-2023 Chronic Unclassified (18 sources) Parkinson's disease; Translations: [Parkinson's disease without [...] Other Problems Problem Classification Problem Date Documented Da te Episodic/Chronic Other circulatory disease (1 source) Hypotension, unspecified; Translations: [Hypotension, unspecified] Onset: 08-27-2024 Episodic Other gastrointestinal disorders (1 source) Other fecal abnormalities; Translations: [Other fecal abnormalities] Onset: 07-03-2024 Episodic Other screening for suspected conditions (not mental disorders or infectious disease) (20 sources) Screening status; Translations: [Encounter for screening for malignant neoplasm of colon] Onset: 05-19-2022 12-31-2019 Episodic Residual codes; unclassified (1 source) Disorientation, unspecified; Translations: [Disorientation, unspecified] Onset: 08-27-2024 Episodic Unclassified (1 source) Traumatic subarachnoid hemorrhage with loss of consciousness status unknown, subsequent encounter; Translations: [Traumatic subarachnoid hemorrhage with loss of consciousness status unknown, subsequent encounter] Onset: 02-15-2023 Urinary tract infections (1 source) Urinary tract infection, site not specified; Translations: [Urinary tract infection, site not specified] Onset: 08-29-2024 Episodic Results Test Name Value Interpretation Reference Range Facility Brain/Head without Contrasto n 2024 Brain/Head without Contrast [facility] [address] [place] [address] Brain/Head without Contrast MR#: [id number] Acct: [id number] Name: ROSARIO MCNALLY Rep #: [id number] : 1945 F 79 From: Aneudy Jackson MD PCP: Dr. Yahaira Winn MD Status: [facility] ER Study: Brain/Head without Contrast Date of Exam: 04/03 Exam# [id number] Ordering Dr: Isis Mae MD PROCEDURE: BRAIN/HEAD WITHOUT CONTRAST 2024 REASON FOR EXAM: FALL, HIT HEAD TECHNIQUE: Procedure Code: CTBR Modality: CT Procedure: BRAIN/HEAD WITHOUT CONTRAST Coronal and Sagittal reconstruction series were provided. One or more dose reduction techniques were used (e.g., Automated exposure control, adjustment of the mA and/or kV according to patient size, use of iterative reconstruction technique. RADIATION DOSE SUMMARY: CTDlvol: 44.99 mGy DLP: 961.17 mGycm COMPARISON: None FINDINGS: There is age-related volume loss and mild periventricular small-vessel ischemic change. There is no acute intracranial hemorrhage or mass effect noted. The orbits are grossly unremarkable. The paranasal sinuses and mastoid air cells are grossly clear. The calvarium is intact. There is a scalp hematoma and likely laceration with subcutaneous gas in the left parietal scalp region near the vertex. CT/Brain/Head without Contrast IMPRESSION: Senescent and small-vessel ischemic change without acute intracranial hemorrhage or mass effect. Scalp hematoma and laceration as above. Reading Location: [facility] CC: Dr. Yahaira Winn MD; Dr. Isis Mae MD Heel Shaver: Signed Normal [facility] Chest PA and Lateralon 12-09 Chest PA and Lateral [facility] [address] [place] [id number] Chest PA and Lateral MR#: [id number] Acct: [id number] Name: ROSARIO MCNALLY Rep #: [id number] : 1945 F 79 From: Aneudy Jackson MD PCP: Dr. Yahaira Winn MD Status: [facility] ER Study: Chest PA and Lateral Date of Exam: 12/09/24 Exam# [id number] Ordering Dr: Isis Mae MD PROCEDURE: CHEST PA AND LATERAL 2024 REASON FOR EXAM: FALL TECHNIQUE: Procedure Code: RADCXR Modality: DX Procedure: CHEST PA AND LATERAL COMPARISON: None FINDINGS: No focal consolidation, pneumothorax, or pleural effusion. Heart size is enlarged. No acute osseous abnormality. RAD/Chest PA and Lateral IMPRESSION: Cardiomegaly. No definite acute process Reading Location: [facility] CC: Dr. Yahaira Winn MD; Dr. Isis Mae MD Heel Shaver: Signed Normal [facility] Emergency Department Summary on 2024 Emergency Department Summary [facility] Medical Records Department [address] [place] [address] Emergency Department Summary 12/09/24 MR#: [id number] Acct: [id number] Name: ROSARIO MCNALLY Rep #: [id number] : 1945 79 From: Isis Mae MD PCP: Dr. Yahaira Winn MD Status:REG ER Location: ED HPI HPI - Fall History of Present Illness Chief Complaint: Fall Narrative Narrative: Patient is a 79-year-old female presenting to the emergency department after a fall at [place]. Patient states that there was a "bump" on the floor which caused her to trip and fall. She reports she does not remember striking her head but states there is blood on the back of her head. She does not take any oral anticoagulation. Patient states that her arm got hit on a hook on the wall which cut her arm. She denies any symptoms that caused her to fall including chest pain, shortness of breath, dizziness, lightheadedness. States she was able to walk afterwards. Unknown last tetanus shot. [facility] Medical History Blindness left eye category 5, normal vision right eye Unsteadiness on feet Difficulty in walking Anemia Lung nodule Depression Wrist fracture, right Orthostatic hypotension Essential hypertension Subarachnoid hemorrhage following injury Hyperlipidemia Parkinson's disease Home Medications ???Medication ???Instructions ???Recorded ???Last Taken ???Type atorvastatin 10 mg tablet 10 mg PO QHS HYPERLIPIDEMIA Unknown History carbidopa 25 mg-levodopa 100 mg 1 tab PO 4XD NEUROCOGNITIVE Unknown History tablet DISORDER escitalopram oxalate 10 mg tablet 10 mg PO DAILY MAJOR DEPRESSIVE 0 03/28/23 Unknown History DISORD ferrous sulfate 325 mg (65 mg 325 mg PO DAILY ANEMIA 03/28/23 Un known History iron) tablet artifi.tears(hyprome llose)(PF) 1.7 1 drp ophthalmic (eye) TID DRYNE SS 07/03/24 Unknown History % eye drops with applicator midodrine 5 mg tablet 7.5 mg PO TID HTN 09/03/24 Unknown History acetaminophen 325 mg capsule 650 mg PO Q6H PRN fever or pain Unknown History bisacodyl 10 mg rectal suppository 10 mg GA Q12H PRN constipation 0 09/23/24 Unknown History docusate sodium 100 mg capsule 100 mg PO Q12H PRN constipation Unknown History (Col-Rite) lorazepam 0.5 mg tablet 0.5 mg PO .COMPLEX ANXIETY 5 Unknown History magnesium hydroxide 400 mg/5 mL 30 ml PO Q12H PRN constipation Unknown History oral suspension (Dulcolax (magnesium hydroxide)) ondansetron 4 mg disintegrating 4 mg PO Q6H PRN nausea and vomitin g 09/23/24 Unknown History tablet polyethylene glycol 3350 17 17 g PO DAILY PRN constipation Unknown History gram/dose oral powder (Miralax) Allergy/AdvReac Type Severity Reaction Status Date / Time amoxicillin (From Trimox) Allergy Hives Verified 12/03/24 15:37 Family History Mother Hypertension Heart disease Diabetes [...] family history of blood clots/blood disorders. ROS ROS ED ROS Narrative see HPI EXAM Physical Exam Narrative Exam Narrative: Vital signs: Reviewed General: Alert and orientedx3. No acute distress. Chronically ill appearing. HEENT: Head is normocephalic and atraumatic. There is a small cephalhematoma to the left parietal portion of the scalp. There is a small overlying abrasion with a very small half a centimeter laceration with no active bleeding. Midface is stable and nontender to palpation. Pupils equal round and reactive. Nares are patent. No septal hematoma. Oropharynx and throat exams normal. No oropharyngeal trauma. Neck: Supple without lymphadenopathy nontender. No midline cervical spinal tenderness to palpation. No step-offs or deformities. Cardiovascular: Regular rate and rhythm, no murmurs. No rubs or gallops. Normal S1 and S2 Respiratory: Clear to auscultation bilaterally. No wheezes, rales, rhonchi Chest: Chest wall is atraumatic and nontender to palpation. No ecchymosis, erythema or crepitus. Abdominal: Soft and nontender. Normal bowel sounds. No guarding or rebound. Nonsurgical abdomen Extremities: No midline thoracic or spinal tenderness palpation. No step-offs or deformities. There is a small skin tear to the (more content not included)... [facility] Pelvis 1 or 2 Viewson 2024 [address] [facility] Imaging Services [address], [place] [id number] Pelvis 1 or 2 Views MR#: [id number] Acct: [id number] Name: ROSARIO MCNALLY Rep #: [id number] : 1945 F 79 From: Aneudy Jackson MD PCP: Dr. Yahaira Winn MD Status: [facility] ER Study: Pelvis 1 or 2 Views Date of Exam: 12/09/24 Exam# [id number] Ordering Dr: Isis Mae MD PROCEDURE: PELVIS 1 OR 2 VIEWS 2024 REASON FOR EXAM: FALL TECHNIQUE: Procedure Code: RADPEL Modality: DX Procedure: PELVIS 1 OR 2 VIEWS COMPARISON: None FINDINGS: Degenerative lumbosacral spinal changes are noted. The pelvis is grossly intact. The right hip joint is degenerated but intact. There is linear lucency in the vicinity of the femoral head neck junction on the left. A fracture can not be excluded. There is severe degeneration of the left hip joint as well. Mild acetabular protrusio is present. There is a large amount of rectal stool. RAD/Pelvis 1 or 2 Views IMPRESSION: Linear lucency in the femoral head neck region on the left which may be artifactual although I can not exclude a subcapital fracture. I recommend dedicated hip radiographs and/or CT for better characterization. Reading Location: [facility] CC: Dr. Yahaira Winn MD; Dr. Isis Mae MD Heel Shaver: Signed [facility] Pelvis without IV Contraston 2024 Pelvis without IV Contrast [facility] Imaging Services [address] [place] [address] Pelvis without IV Contrast MR#: [id number] Acct: [id number] Name: ROSARIO MCNALLY Rep #: [id number] : 1945 F 79 From: Kevin Funez MD PCP: Dr. Yahaira Winn MD Status: [facility] ER Study: Pelvis without IV Contrast Date of Exam: 12/09 Exam# [id number] Ordering Dr: Isis Mae MD EXAM: CT Pelvis Without Intravenous Contrast CLINICAL INDICATION: ABNORMAL PELVIS XRAY TECHNIQUE: Axial computed tomography images of the pelvis without intravenous contrast. This CT exam was performed using one or more of the following dose reduction techniques: automated exposure control, adjustment of the mA and/or kV according to patient size, and/or use of iterative reconstruction technique. RADIATION DOSE: CTDIvol = 12 mGy, DLP = 394 mGy-cm COMPARISON: No relevant prior studies available. FINDINGS: BOWEL: Fecal retention in the colon consistent with constipation. No obstruction. No mucosal thickening. APPENDIX: No findings to suggest acute appendicitis. INTRAPERITONEAL SPACE: Unremarkable. No free air. No significant fluid collection. BLADDER: Unremarkable. No stones. REPRODUCTIVE: Unremarkable as visualized. BONES/JOINTS: Mild to moderate degenerative change of the left hip joint with subchondral cysts. No acute fracture. No dislocation. SOFT TISSUES: Unremarkable. VASCULATURE: Unremarkable. No lower abdominal aortic aneurysm. LYMPH NODES: Unremarkable. No enlarged lymph nodes. CT/Pelvis without IV Contrast IMPRESSION: 1. Fecal retention in the colon consistent with constipation. 2. Mild to moderate degenerative change of the left hip joint with subchondral cysts. No acute fracture. Reading Location: [facility] CC: Dr. Yahaira Winn MD; Dr. Isis Mae MD Heel Shaver: Signed [facility] Shoulder min 2 Viewson 12-[address] [facility] Imaging Services [address] [place], [place] [id number] Shoulder min 2 Views MR#: [id number] Acct: [id number] Name: ROSARIO MCNALLY Rep #: [id number] : 1945 F 79 From: Aneudy Jackson MD PCP: Dr. Yahaira Winn MD Status: REG ER Study: Shoulder min 2 Views Date of Exam: 12/09/24 Exam# [id number] Ordering Dr: Isis Mae MD PROCEDURE: SHOULDER MIN 2 VIEWS 2024 REASON FOR EXAM: PAIN, FALL TECHNIQUE: Procedure Code: [facility] Modality: DX Procedure: SHOULDER MIN 2 VIEWS Laterality: Left COMPARISON: None FINDINGS: There is mild narrowing of the acromioclavicular joint. There is no acute fracture or dislocation noted. The adjacent ribs and lung are grossly unremarkable. RAD/Shoulder min 2 Views IMPRESSION: No acute bony abnormality. Reading Location: [facility] CC: Dr. Yahaira Winn MD; Dr. Isis Mae MD Heel Shaver: Signed [facility] Spine Cervical without Contr ason [address] without Contras [facility] Imaging Services [address] [place], [place] [id number] Spine Cervical without Contras MR#: [id number] Acct: [id number] Name: ROSARIO MCNALLY Rep #: [id number] : 1945 F 79 From: Aneudy Jackson MD PCP: Dr. Yahaira Winn MD Status: REG ER Study: Spine Cervical without Contras Date of Exam: 02/09/24 Exam# [id number] Ordering Dr: Isis Mae MD PROCEDURE: SPINE CERVICAL WITHOUT CONTRAS 2024 REASON FOR EXAM: FALL TECHNIQUE: Procedure Code: CTSPC Modality: CT Procedure: SPINE CERVICAL WITHOUT CONTRAS Coronal and Sagittal reconstruction series were provided. One or more dose reduction techniques were used (e.g., Automated exposure control, adjustment of the mA and/or kV according to patient size, use of iterative reconstruction technique. RADIATION DOSE SUMMARY: CTDlvol: 44.99 mGy DLP: 961.17 mGycm COMPARISON: None FINDINGS: There is straightening of the cervical lordosis. Minimal anterolisthesis of C3 on C4. Degenerative disc space narrowing is noted between C2 and T1. There is facet arthropathy noted at multiple levels. There is no acute fracture noted. There is likely a hemangioma on the right at C6. The paravertebral soft tissues are unremarkable aside from minimal atherosclerotic carotid arterial calcifications.. Lung apices are clear. CT/Spine Cervical without Contras IMPRESSION: No acute cervical spine abnormality. Other incidental findings as above. Reading Location: [facility] CC: Dr. Yahaira Winn MD; Dr. Isis Mae MD Heel Shaver: Signed [facility] Cardiology Visit Reporton Cardiology Visit Report [facility] [address] [place] [address]. [address] [place] [address] OFFICE VISIT Date of Service: 12/03/24 MR#: [id number] Acct: [id number] Name: ROSARIO MCNALLY Rep #: [id number] : 1945 Provider: RANDALL perez Age/Sex: 78/F Location: [facility] Status: Signed HPI HPI History of Present Illness Details: This is a 78-year-old female who presents to the office today for cardiovascular follow-up visit. She currently resides in a [facility], and has a history of hypertension some dizzy spells and Parkinson's. She had a hospitalization at [facility] back in February 2019 for which she [...] standpoint, the patient is doing well. She presents to the office today with her daughter. She denies any palpitations, chest pain, pressure or heaviness. She denies SOB, Orthopnea, and PND. She does not have bleeding issues; no blood in urine, stool, or nosebleeds. She denies any decrease in energy level, myalgias, or claudication. She does not have edema, or sudden weight gain. She does acknowledge occasional dizziness in the morning when waking up. She denies lightheadedness, syncopal or near syncopal episodes, and headaches. Intake Vital Signs 09/03/24 15:33 12/03/24 06:55 Height 5 ft 3 in 5 ft 3 in Weight: 129 lb BMI 22.8 BP 147/84 H Blood Pressure Location Lt brachial Position Sitting Respiration 18 Pulse 85 Pulse Source Monitor Pulse Oximetry (%) 98 Intake Visit Reasons: 3 M [employer] Required: No Is patient in pain?: No Allergies amoxicillin (From Trimox) Allergy (Verified 12/03/24 15:37) Hives Medications ???Medication ???Instructions ???Recorded ???Confirmed ???Type atorvastatin 10 mg tablet 10 mg PO QHS HYPERLIPIDEMIA 12/03/24 History carbidopa 25 mg-levodopa 100 mg 1 tab PO 4XD NEUROCOGNITIVE 12/03/24 History tablet DISORDER escitalopram oxalate 10 mg tablet 10 mg PO DAILY MAJOR DEPRESSIVE 0 03/28/23 12/03/24 History DISORD ferrous sulfate 325 mg (65 mg 325 mg PO DAILY ANEMIA 03/28/23 History iron) tablet artifi.tears(hyprome llose)(PF) 1.7 1 drp ophthalmic (eye) TID DRYNE SS 07/03/24 12/03/24 History % eye drops with applicator midodrine 5 mg tablet 7.5 mg PO TID HTN 09/03/24 History acetaminophen 325 mg capsule 650 mg PO Q6H PRN fever or pain 12/03/24 History bisacodyl 10 mg rectal suppository 10 mg GA Q12H PRN constipation 0 09/23/24 12/03/24 History docusate sodium 100 mg capsule 100 mg PO Q12H PRN constipation 12/03/24 History (Col-Rite) lorazepam 0.5 mg tablet 0.5 mg PO .COMPLEX ANXIETY 5 12/03/24 History magnesium hydroxide 400 mg/5 mL 30 ml PO Q12H PRN constipation 12/03/24 History oral suspension (Dulcolax (magnesium hydroxide)) ondansetron 4 mg disintegrating 4 mg PO Q6H PRN nausea and vomitin g 09/23/24 12/03/24 History tablet polyethylene glycol 3350 17 17 g PO DAILY PRN constipation 12/03/24 History gram/dose oral powder (Miralax) Have you fallen [...] use caffeine: Yes Type: coffee Number of serv (more content not included)... [facility] 12 Lead EKGon 09-23-[address] [facility] Cardiovascular Services [address] [place] [address] 12 Lead EKG 09/23/24 0838 MR#: [id number] Acct: [id number] Name: ROSARIO MCNALLY Rep #: [id number] : 1945 78 From: Checo Reid MD Attending Dr: Status: DEP ER Ordering Dr: Isis Mae MD Date: 09/23/24 Location: ED Sex: F C Admitted: Test Reason : ARRYTH Blood Pressure : */* mmHG Vent. Rate : 72 BPM Atrial Rate : 72 BPM P-R Int : 144 ms QRS Dur : 80 ms QT Int : 406 ms P-R-T Axes : 26 -11 3 degrees QTcB Int : 444 ms Normal sinus rhythm Normal ECG Confirmed by FRANKLIN SALAZAR, CHECO ([id number]), associate entertainment editor JANELLE MA ([id number]) on 09/25/2024 6:09:24 AM Referred By: Confirmed By: CHECO REID MD 09/25/24 0609 Date Checo Reid MD CC: Dr. Isis Mae MD; Dr. Rahul Shetty DO Signed [facility] Emergency Department Summary on 09-23-2024 Emergency Department Summary [facility] Medical Records Department [address] [place] [address] Emergency Department Summary 09/23/24 MR#: [id number] Acct: [id number] Name: ROSARIO MCNALLY Rep #: [id number] : 1945 78 From: Isis Mae MD PCP: Dr. Rahul Shetty DO Status:REG ER Location: ED HPI History of Present Illness Chief Complaint: Stroke Alert Narrative Narrative: Patient is a 78-year-old female presenting to the emergency department for a stroke alert that was called by EMS. Last known well 7:20 AM this morning. Patient is on no oral anticoagulation. EMS states that the patient was eating breakfast this morning and developed sudden onset aphasia. On arrival here patient has no complaints. She is soft-spoken. Has no aphasia or dysarthria. Has no focal weakness or numbness. No pain. No chest pain, shortness of breath, abdominal pain, nausea or vomiting. Stroke alert canceled on my evaluation. [facility] Medical History Blindness left eye category 5, normal vision right eye Unsteadiness on feet Difficulty in walking Anemia Lung nodule Depression Wrist fracture, right Orthostatic hypotension Essential hypertension Subarachnoid hemorrhage following injury Hyperlipidemia Parkinson's disease Home Medications ???Medication ???Instructions ???Recorded ???Last Taken ???Type atorvastatin 10 mg tablet 10 mg PO QHS HYPERLIPIDEMIA Unknown History carbidopa 25 mg-levodopa 100 mg 1 tab PO 4XD NEUROCOGNITIVE Unknown History tablet DISORDER escitalopram oxalate 10 mg tablet 10 mg PO DAILY MAJOR DEPRESSIVE 0 03/28/23 Unknown History DISORD ferrous sulfate 325 mg (65 mg 325 mg PO DAILY ANEMIA 03/28/23 Un known History iron) tablet artifi.tears(hyprome llose)(PF) 1.7 1 drp ophthalmic (eye) TID DRYNE SS 07/03/24 Unknown History % eye drops with applicator midodrine 5 mg tablet 7.5 mg PO TID HTN 09/03/24 Unknown History acetaminophen 325 mg capsule 650 mg PO Q6H PRN fever or pain Unknown History bisacodyl 10 mg rectal suppository 10 mg GA Q12H PRN constipation 0 09/23/24 Unknown History docusate sodium 100 mg capsule 100 mg PO Q12H PRN constipation Unknown History (Col-Rite) lorazepam 0.5 mg tablet 0.5 mg PO .COMPLEX ANXIETY 5 Unknown History magnesium hydroxide 400 mg/5 mL 30 ml PO Q12H PRN constipation Unknown History oral suspension (Dulcolax (magnesium hydroxide)) ondansetron 4 mg disintegrating 4 mg PO Q6H PRN nausea and vomitin g 09/23/24 Unknown History tablet polyethylene glycol 3350 17 17 g PO DAILY PRN constipation Unknown History gram/dose oral powder (Miralax) Allergy/AdvReac Type Severity Reaction Status Date / Time amoxicillin (From Trimox) Allergy Hives Verified 09/03/24 15:44 Family History Mother Hypertension Heart disease Diabetes [...] family history of blood clots/blood disorders. ROS ROS ED Constitutional Constitutional ED: Denies chills or fever(s) Eyes Eyes: Denies change in vision or diplopia ENT ENT ED: Denies sore throat Cardiovascular Cardiovascular: Denies chest pain, palpitations or racing heartbeat Respiratory/Chest Respiratory/Chest: Denies cough, dyspnea or dyspnea on exertion Gastrointestinal Gastrointestinal: Denies abdominal pain, diarrhea, nausea or vomiting Genitourinary Genitourinary ED: Denies dysuria or hematuria Musculoskeletal Musculoskeletal: Denies back pain or neck pain Neurologic Neurologic: Denies headache(s), paresthesias or weakness EXAM Physical Exam Narrative Exam Narrative: Vital signs: Reviewed General: Alert and oriented x3. No acute distress. Chronically ill appearing. HEENT: Head is normocephalic and atraumatic, sinuses nontender, pupils equal round and reactive. Nares are patent. Oropharynx and throat exams normal. Neck: Supple without lymphadenopathy nontender Cardiovascular: Regular rate and rhythm, no murmurs. No rubs or gallops. Normal S1 and S2 Respiratory: Clear to auscultation bilaterally. No wheezes, rales, rhonchi Abdominal: Soft and nontender. Normal bowel sounds. No guarding or rebound. Nonsurgical abdomen Extremities: No tenderness. No bruising. No (more content not included)... [facility] Cardiology Visit Reporton Cardiology Visit Report [facility] [address] [place] [address] OFFICE VISIT Date of Service: 09/03/24 MR#: [id number] Acct: [id number] Name: ROSARIO MCNALLY Rep #: [id number] : 1945 Provider: RANDALL perez Age/Sex: 78/F Location: [facility] [place] Status: Signed HPI HPI History of Present Illness Details: This is a 78-year-old female who presents to the office today for cardiovascular follow-up visit. She currently resides in a penitentiary, and has a history of hypertension some dizzy spells and Parkinson's. She had a hospitalization at [facility] back in February 2019 for which she [...] air Intake Visit Reasons: 1 Y FU [employer] Required: No Accompanied by: Daughter Is patient [...] mg PO QDAY 07/03/24 09/03/24 His tory artifi.tears(hyprome llose)(PF) 1.7 1 drp ophthalmic (eye) TID 07/0309/03/24 [...] vision ENT ENT: Negative for headache(s), dizziness, Nosebleed/epistaxis, balance problems or neck pain Cardio Chest Pain: No Pal (more content not included)... [facility] MRI BRAIN W/O CONTRASTon MRI BRAIN W/O CONTRAST ORIGINAL EXAMINATION: MRI OF THE BRAIN WITHOUT CONTRAST 08/17/2024 11:07 pm TECHNIQUE: Multiplanar multisequence MRI of the brain was performed without the administration of intravenous contrast. COMPARISON: None. HISTORY: ORDERING SYSTEM PROVIDED HISTORY: Reason for Exam: falls, acute vision loss episodes, confusion episodes. Rule out stroke or other. FINDINGS: INTRACRANIAL STRUCTURES/VENTRICLE S: No focus of restricted diffusion. There is [...] 08/20/2024 5:25:13 AM Ordering Provider: RAHUL SHETTY [facility] MAIN Bilirubin Test strip Ql (U)O rdered By: Rahul Shetty on 08-15-2024 Bilirubin Ql (U) Negative Negative [facility] Hyaline casts LM.LPF (Urine sed) [#/Area]Ordered By: Rahul Shetty on 08-15-2024 Hyaline casts (Urine sed) [#/Area] 5 /[LPF] 0-5 [facility] Ketones Test strip Ql (U)Ord ered By: Rahul Shetty on 08-15-2024 Ketones Ql (U) 5 mg/dl High Negative [facility] Microscopic analysis of urin e for red blood cells (RBC)Ordered By: Rahul Shetty on 08-15-2024 Microscopic analysis of urine for red blood cells (RBC) 5-10 SEEN /hpf 0-5 [facility] Mucus LM Ql (Urine sed)Order ed By: Rahul Shetty on 08-15-2024 Mucus Ql (Urine sed) 0 SEEN /hpf [facility] Nitrite Test strip Ql (U)Ord ered By: Rahul Shetty on 08-15-2024 Nitrite Ql (U) Negative Negative [facility] Protein Test strip Ql (U)Ord ered By: Rahul Shetty on 08-15-2024 Protein Ql (U) 30 mg/dl High Negative [facility] Squamous epithelial cells de tection in urine sediment by light microscopyOrdered By: Rahul Shetty on 08-15-2024 Epithelial cells.squamous LM Ql (Urine sed) 5-10 SEEN /hpf 5-10 [facility] Urine clarityOrdered By: Lucien Shetty on 08-15-2024 Clarity (U) Sl. Cloudy Clear [facility] Urine color determinationOrd ered By: Rahul Shetty on 08-15-2024 Color (U) Yellow Yellow [facility] Urine cultureOrdered By: Lucien Shetty on 08-15-2024 Bacteria identified Cx Nom (U) Corynebacterium minutissimum Abnormal [facility] Urine glucose detectionOrder ed By: Rahul Shetty on 08-15-2024 Glucose Ql (U) Normal mg/dl Normal [facility] Urine leukocyte esterase det ection by dipstickOrdered By: Rahul Shetty on 08-15-2024 Leukocyte esterase Test strip Ql (U) Negative Negative [facility] Urine pHOrdered By: Rahul jackson on 08-15-2024 pH (U) 7.0 [pH] 5.0 - 8.0 [facility] Urine sediment bacteria coun t by microscopy (number/high power field)Ordered By: Rahul Shetty on 08-15-2024 Bacteria LM.HPF (Urine sed) [#/Area] 1 /[HPF] None Seen [facility] Urine specific gravity measu rementOrdered By: Rahul Shetty on 08-15-2024 Specific gravity (U) [Rel density] 1.015 1.002-1.030 [facility] Urine urobilinogen measureme ntOrdered By: Rahul Shetty on 08-15-2024 Urobilinogen Ql (U) Normal mg/dl Normal [facility] White blood cell countOrdere d By: Rahul Shetty on 08-15-2024 White blood cell count 0-5 SEEN /hpf 0-5 [facility] Absolute lymphocyte countOrd ered By: [facility] on 08-02-2024 Lymphocytes Auto (Unsp spec) [#/Vol] 1.11 10*3/uL 0.83-4.51 [facility] Absolute neutrophil countOrd ered By: [facility] on 08-02-2024 Neutrophils (Bld) [#/Vol] 6.7 10*3/uL 2.0-7.7 [facility] Automated lymphocyte count a s percentage of total leukocytesOrdered By: [facility] on 08-02-2024 Lymphocytes/100 WBC Auto (Unsp spec) 12.6 % Low 19-41 [facility] Basophil percentageOrdered B y: [facility] on 08-02-2024 Basophils/100 WBC (Bld) 0.5 % 0-1 [facility] Eosinophil percentageOrdered By: [facility] on 08-02-2024 Eosinophils/100 WBC (Bld) 1.9 % 0-5 [facility] Erythrocyte distribution wid th ratioOrdered By: [facility] on 08-02-2024 Erythrocyte distribution width (RBC) [Ratio] 13.0 % 11.6-14.6 [facility] Erythrocyte distribution wid th standard deviationOrdered By: [facility] on 08-02-2024 Erythrocyte distribution width (RBC) [Ratio] 43.0 fl 35.1-43.9 [facility] Hematocrit Auto (Bld) [Volum e fraction]Ordered By: [facility] on 08-02-2024 Hematocrit (Bld) [Volume fraction] 31.0 % Low 37-47 [facility] Hemoglobin measurementOrdere d By: [facility] on 08-02-2024 Hemoglobin (Bld) [Mass/Vol] 10.1 g/dL Low 12.0-15.0 [facility] Immature granulocytes/100 WB C Auto (Bld)Ordered By: [facility] on 08-02-2024 Immature granulocytes/100 WBC (Bld) 0.300 % 0.0-0.9 [facility] Comment on above: IG% - Immature Granu locytes (promyelocytes, myelocytes and metamyelocytes) > 1% indicates that a LEFT SHIFT is Present. MCV (mean corpuscular volume ) determinationOrdered By: [facility] on 08-02-2024 MCV (RBC) [Entitic vol] 90.9 fL 81-99 [facility] Mean corpuscular hemoglobin (MCH) determinationOrdered By: [facility] on 08-02-2024 MCH (RBC) [Entitic mass] 29.6 pg 27.0-32.0 [facility] Mean corpuscular hemoglobin concentration (MCHC) determinationOrdered By: [facility] on 08-02-2024 MCHC (RBC) [Mass/Vol] 32.6 g/dL 32-[address] [facility] Mean platelet volume determi nationOrdered By: [facility] on 08-02-2024 Platelet mean volume (Bld) [Entitic vol] 10.3 fL 6.2-12.0 [facility] Monocyte percentageOrdered B y: [facility] on 08-02-2024 Monocytes/100 WBC (Bld) 8.2 % 0-10 [facility] Neutrophil percentageOrdered By: [facility] on 08-02-2024 Neutrophils/100 WBC (Bld) 76.5 % High 47-70 [facility] Nucleated red blood cell per centageOrdered By: [facility] on 08-02-2024 Nucleated RBC/100 WBC (Bld) [Ratio] 0 % 0-5 [facility] Platelet countOrdered By: [facility] on 08-02-2024 Platelets (Bld) [#/Vol] 303 10*3/uL 150-450 [facility] RBC Auto (Bld) [#/Vol]Ordere d By: [facility] on 08-02-2024 RBC (Bld) [#/Vol] 3.41 10*6/uL Low 4.2-5.4 [facility] White blood cell (WBC) count Ordered By: [facility] on 08-02-2024 WBC (Bld) [#/Vol] 8.8 10*3/uL 4.4-11.0 [facility] Hemoglobin A1c percentageOrd ered By: Rahul Shetty on 07-31-2024 HbA1c (Bld) [Mass fraction] 5.2 % <5.7 [facility] Comment on above: Normal < 5.7 % Predi abetic 5.7 - 6.4 % Diabetic >or= 6.5 % Please note range changes. Bilirubin Test strip Ql (U)O rdered By: Rahul Shetty on 07-30-2024 Bilirubin Ql (U) Negative Negative [facility] Ketones Test strip Ql (U)Ord ered By: Rahul Shetty on 07-30-2024 Ketones Ql (U) 5 mg/dl High Negative [facility] Microscopic analysis of urin e for red blood cells (RBC)Ordered By: Rahul Shetty on 07-30-2024 Microscopic analysis of urine for red blood cells (RBC) 0-5 SEEN /hpf 0-5 [facility] Mucus LM Ql (Urine sed)Order ed By: Rahul Shetty on 07-30-2024 Mucus Ql (Urine sed) 0 SEEN /hpf [facility] Nitrite Test strip Ql (U)Ord ered By: Rahul Shetty on 07-30-2024 Nitrite Ql (U) Negative Negative [facility] Protein Test strip Ql (U)Ord ered By: Rahul Shetty on 07-30-2024 Protein Ql (U) 30 mg/dl High Negative [facility] Squamous epithelial cells de tection in urine sediment by light microscopyOrdered By: Rahul Shetty on 07-30-2024 Epithelial cells.squamous LM Ql (Urine sed) 0-5 SEEN /hpf 5-10 [facility] Urine clarityOrdered By: Lucien Shetty on 07-30-2024 Clarity (U) Sl. Cloudy Clear [facility] Urine color determinationOrd ered By: Rahul Shetty on 07-30-2024 Color (U) Yellow Yellow [facility] Urine cultureOrdered By: Lucien Shetty on 07-30-2024 Bacteria identified Cx Nom (U) Positive Abnormal [facility] Urine glucose detectionOrder ed By: Rahul Shetty on 07-30-2024 Glucose Ql (U) Normal mg/dl Normal [facility] Urine leukocyte esterase det ection by dipstickOrdered By: Rahul Shetty on 07-30-2024 Leukocyte esterase Test strip Ql (U) Negative Negative [facility] Urine pHOrdered By: Rahul jackson on 07-30-2024 pH (U) 6.0 [pH] 5.0 - 8.0 [facility] Urine sediment bacteria coun t by microscopy (number/high power field)Ordered By: Rahul Shetty on 07-30-2024 Bacteria LM.HPF (Urine sed) [#/Area] 0 /[HPF] None Seen [facility] Urine specific gravity measu rementOrdered By: Rahul Shetty on 07-30-2024 Specific gravity (U) [Rel density] 1.015 1.002-1.030 [facility] Urine urobilinogen measureme ntOrdered By: Rahul Shetty on 07-30-2024 Urobilinogen Ql (U) Normal mg/dl Normal [facility] White blood cell countOrdere d By: Rahul Shetty on 07-30-2024 White blood cell count 0 SEEN /hpf 0-5 [facility] Anion gap in Serum or Plasma Ordered By: Rahul Shetty on 07-27-2024 Anion gap [Moles/Vol] 13 mmol/L 5-[address] [facility] BUN/creatinine ratioOrdered By: Rahul Shetty on 07-27-2024 Urea nitrogen/Creatinine [Mass ratio] 12.8 mg/mg 10-20 [facility] Bilirubin, totalOrdered By: Rahul Shetty on 07-27-2024 Bilirubin [Mass/Vol] 0.53 mg/dL 0.00-1.30 [facility] Carbon dioxide, total [Moles /volume] in Central venous bloodOrdered By: Rahul Shetty on 07-27-2024 CO2 [Moles/Vol] 24.3 mmol/L 21.0-32.0 [facility] Chloride assayOrdered By: Vidal Shetty on 07-27-2024 Chloride [Moles/Vol] 103 mmol/L 98-108 [facility] Erythrocyte distribution wid th ratioOrdered By: Rahul Shetty on 07-27-2024 Erythrocyte distribution width (RBC) [Ratio] 13.2 % 11.6-14.6 [facility] Erythrocyte distribution wid th standard deviationOrdered By: Rahul Shetty on 07-27-2024 Erythrocyte distribution width (RBC) [Ratio] 44.5 fl High 35.1-43.9 [facility] Glomerular filtration rate ( GFR) estimation/1.73 sq m using serum, plasma, or whole bOrdered By: Rahul Shetty on 07-27-2024 GFR/1.73 sq M.predicted among non-blacks MDRD (S/P/Bld) [Vol rate/Area] 58 mL/min/{1.73_m2} Low >60 [facility] Comment on above: mL/min/1.73m2 CKD-EP I Creatinine Equation (2020) Hematocrit Auto (Bld) [Volum e fraction]Ordered By: Rahul Shetty on 07-27-2024 Hematocrit (Bld) [Volume fraction] 31.4 % Low 37-47 [facility] Hemoglobin measurementOrdere d By: Rahul Shetty on 07-27-2024 Hemoglobin (Bld) [Mass/Vol] 10.4 g/dL Low 12.0-15.0 [facility] Laboratory - Chemistry and C hemistry - challengeOrdered By: Rahul Shetty on 07-27-2024 AST [Catalytic activity/Vol] 19 U/L <32 [facility] MCV (mean corpuscular volume ) determinationOrdered By: Rahul Shetty on 07-27-2024 MCV (RBC) [Entitic vol] 91.5 fL 81-99 [facility] Mean corpuscular hemoglobin (MCH) determinationOrdered By: Rahul Shetty on 07-27-2024 MCH (RBC) [Entitic mass] 30.3 pg 27.0-32.0 [facility] Mean corpuscular hemoglobin concentration (MCHC) determinationOrdered By: Rahul Shetty on 07-27-2024 MCHC (RBC) [Mass/Vol] 33.1 g/dL 32-[address] [facility] Mean platelet volume determi nationOrdered By: Rahul Shetty on 07-27-2024 Platelet mean volume (Bld) [Entitic vol] 10.3 fL 6.2-12.0 [facility] Plastic Surgery Visit Report on 07-27-2024 Plastic Surgery Visit Report [facility] Plastic Reconstructive Surgery [address], [address] [place] [address] OFFICE VISIT Date of Service: 07/27/24 MR#: [id number] Acct: [id number] Name: ROSARIO MCNALLY Rep #: [id number] : 1945 Provider: Dr. Jose Matthews MD Age/Sex: 78/F Location: [facility] Status: Signed Intake Vital Signs 07/06/24 14:31 [...] bisacodyl 10 mg rectal suppository 10 mg GA DAILY PRN 03/28/2307/09 History (Dulcolax (bisacodyl)) carbidopa [...] Hi story gram/dose oral powder (Miralax) aluminum-mag hydroxide-simethicon e 1 tab PO Q6H PRN 07/03/24 History 200 mg-200 mg-25 mg chewable tablet (Gelusil Antacid and Anti-Gas) amlodipine 5 mg tablet 5 mg PO QDAY 07/03/24 07/27/24 His tory artifi.tears(hyprome llose)(PF) 1.7 1 drp ophthalmic (eye) TID 07/0307/27/24 [...] Plan ( (more content not included)... Normal [facility] Platelet countOrdered By: Vidal Shetty on 07-27-2024 Platelets (Bld) [#/Vol] 322 10*3/uL 150-450 [facility] Potassium measurement (mass/ volume)Ordered By: Rahul Shetty on 07-27-2024 Potassium (Unsp spec) [Mass/Vol] 3.8 mmol/L 3.3-5.1 [facility] RBC Auto (Bld) [#/Vol]Ordere d By: Rahul Shetty on 07-27-2024 RBC (Bld) [#/Vol] 3.43 10*6/uL Low 4.2-5.4 [facility] Serum creatinine measurement (mass/volume)Ordered By: Rahul Shetty on 07-27-2024 Creatinine [Mass/Vol] 1.00 mg/dL 0.70-1.[address] [facility] Serum globulin measurementOr dered By: Rahul Shetty on 07-27-2024 Globulin (S) [Mass/Vol] 3.3 g/dL 2.2-4.2 [facility] Serum glucose measurement (m ass/volume)Ordered By: Rahul Shetty on 07-27-2024 Glucose [Mass/Vol] 98 mg/dL 70-99 [facility] Serum or plasma alanine quiles otransferase (ALT) measurementOrdered By: Rahul Shetty on 07-27-2024 ALT [Catalytic activity/Vol] 5 U/L <35 [facility] Serum or plasma albumin patricia urement (mass/volume)Ordered By: Rahul Shetty on 07-27-2024 Albumin [Mass/Vol] 4.1 g/dL 3.4-4.8 [facility] Serum or plasma albumin/glob ulin mass ratioOrdered By: Rahul Shetty on 07-27-2024 Albumin/Globulin [Mass ratio] 1.3 {ratio} 0.9-2.4 [facility] Serum or plasma alkaline enriqueta sphatase measurementOrdered By: Rahul Shetty on 07-27-2024 ALP [Catalytic activity/Vol] 103 U/L 35-104 [facility] Serum or plasma calcium patricia urement (mass/volume)Ordered By: Rahul Shetty on 07-27-2024 Calcium [Mass/Vol] 9.6 mg/dL 7.6-11.0 [facility] Serum or plasma urea nitroge n measurement (mass/volume)Ordered By: Rahul Shetty on 07-27-2024 Urea nitrogen [Mass/Vol] 13 mg/dL 4-19 [facility] Sodium levelOrdered By: Clyde Shetty on 07-27-2024 Sodium [Moles/Vol] 140 mmol/L 133-145 [facility] Total proteinOrdered By: Lucien Shetty on 07-27-2024 Protein [Mass/Vol] 7.3 g/dL 5.9-8.4 [facility] White blood cell (WBC) count Ordered By: Rahul Shetty on 07-27-2024 WBC (Bld) [#/Vol] 7.7 10*3/uL 4.4-11.0 [facility] Plastic Surgery Visit Report on 07-13-2024 Plastic Surgery Visit Report [facility] Plastic Reconstructive Surgery [address], [address] [place], [place] [address] OFFICE VISIT Date of Service: 07/13/24 MR#: [id number] Acct: [id number] Name: ROSARIO MCNALLY Rep #: [id number] : 1945 Provider: Dr. Jose Matthews MD Age/Sex: 78/F Location: [facility] Status: Signed Intake Vital Signs 07/06/24 [...] bisacodyl 10 mg rectal suppository 10 mg GA DAILY PRN 03/28/2308/01 History (Dulcolax (bisacodyl)) carbidopa [...] Hi story gram/dose oral powder (Miralax) aluminum-mag hydroxide-simethicon e 1 tab PO Q6H PRN 07/03/24 History 200 mg-200 mg-25 mg chewable tablet (Gelusil Antacid and Anti-Gas) amlodipine 5 mg tablet 5 mg PO QDAY 07/03/24 07/13/24 His tory artifi.tears(hyprome llose)(PF) 1.7 1 drp ophthalmic (eye) TID 07/0307/13/24 [...] dressing changes Exam Details Left Upper Extremity Inspection/Palpation : Forearm with now 10 cm longitudinal wound [...] proximal rosa (more content not included)... Normal [facility] Plastic Surgery Visit Report on 07-06-2024 Plastic Surgery Visit Report [facility] Plastic Reconstructive Surgery [address], [address] [place] [address] OFFICE VISIT Date of Service: 07/06/24 MR#: [id number] Acct: [id number] Name: ROSARIO MCNALLY Rep #: [id number] : 1945 Provider: Dr. Jose Matthews MD Age/Sex: 78/F Location: [facility] Status: Signed Intake Vital Signs 3 06/28/24 [...] bisacodyl 10 mg rectal suppository 10 mg GA DAILY PRN 03/28/2306/09 History (Dulcolax (bisacodyl)) carbidopa [...] Hi story gram/dose oral powder (Miralax) aluminum-mag hydroxide-simethicon e 1 tab PO Q6H PRN 07/03/24 History 200 mg-200 mg-25 mg chewable tablet (Gelusil Antacid and Anti-Gas) amlodipine 5 mg tablet 5 mg PO QDAY 07/03/24 07/06/24 His tory artifi.tears(hyprome llose)(PF) 1.7 1 drp ophthalmic (eye) TID 07/0307/06/24 [...] the injury. Exam Details Left Upper Extremity Inspection/Palpation : I removed the sutures today without issue. [...] the s (more content not included)... Normal [facility] Erythrocyte distribution wid th ratioOrdered By: Rahul Shetty on 07-03-2024 Erythrocyte distribution width (RBC) [Ratio] 14.0 % 11.6-14.6 [facility] Erythrocyte distribution wid th standard deviationOrdered By: Rahul Shetty on 07-03-2024 Erythrocyte distribution width (RBC) [Ratio] 47.7 fl High 35.1-43.9 [facility] Gastroenterology Visit Repor ton 07-03-2024 Gastroenterology Visit Report [facility] Gastroenterology [address] [place] [address] OFFICE VISIT Date of Service: 07/03/24 MR#: [id number] Acct: [id number] Name: ROSARIO MCNALLY Rep #: [id number] : 1945 Provider: RANDALL li Age/Sex: 78/F Location: [facility] Status: Signed Intake Vital Signs 06/28/24 [...] POSITIVE HEMOCULT Chief Complaint: occult positive stools [employer] Required: No Accompanied by: Caregiver Is patient in pain?: No Allergies amoxicillin (From Trimox) Allergy (Verified 07/03/24 10:13) Hives Medications ???Medication ???Instructions ???Recorded ???Confirmed ???Type acetaminophen 650 mg 650 mg PO Q8H 03/28/23 07/03/24 Hi story tablet,extended release atorvastatin 10 mg tablet 10 mg PO QHS 03/28/23 07/03/24 His tory bisacodyl 10 mg rectal suppository 10 mg GA DAILY PRN 03/28/2306/08 History (Dulcolax (bisacodyl)) carbidopa [...] Hi story gram/dose oral powder (Miralax) aluminum-mag hydroxide-simethicon e 1 tab PO Q6H PRN 07/03/24 History 200 mg-200 mg-25 mg chewable tablet (Gelusil Antacid and Anti-Gas) amlodipine 5 mg tablet 5 mg PO QDAY 07/03/24 07/03/24 His tory artifi.tears(hyprome llose)(PF) 1.7 1 drp ophthalmic (eye) TID 07/0307/03/24 [...] testing if a lesion/cancer were found [place] [phone] ROS Const Constitutional: No fatigue, fever(s) or weight change ENT ENT: No difficulty swallowing Gastro GI: Positive for Blood in stool; No abdominal pain, belching, bloating, change in bowel habits, c (more content not included)... Normal [facility] Hematocrit Auto (Bld) [Volum e fraction]Ordered By: Rahul Shetty on 07-03-2024 Hematocrit (Bld) [Volume fraction] 30.5 % Low 37-47 [facility] Hemoglobin measurementOrdere d By: Rahul Shetty on 07-03-2024 Hemoglobin (Bld) [Mass/Vol] 9.8 g/dL Low 12.0-15.0 [facility] MCV (mean corpuscular volume ) determinationOrdered By: Rahul Shetty 07-03-2024 MCV (RBC) [Entitic vol] 93.6 fL 81-99 [facility] Mean corpuscular hemoglobin (MCH) determinationOrdered By: Rahul Shetty on 07-03-2024 MCH (RBC) [Entitic mass] 30.1 pg 27.0-32.0 [facility] Mean corpuscular hemoglobin concentration (MCHC) determinationOrdered By: Rahul Shetty on 07-03-2024 MCHC (RBC) [Mass/Vol] 32.1 g/dL 32-[address] [facility] Mean platelet volume determi nationOrdered By: Rahul Shetty on 07-03-2024 Platelet mean volume (Bld) [Entitic vol] 10.4 fL 6.2-12.0 [facility] Platelet countOrdered By: Vidal Shetty on 07-03-2024 Platelets (Bld) [#/Vol] 302 10*3/uL 150-450 [facility] RBC Auto (Bld) [#/Vol]Ordere d By: Rahul Shetty on 07-03-2024 RBC (Bld) [#/Vol] 3.26 10*6/uL Low 4.2-5.4 [facility] White blood cell (WBC) count Ordered By: Rahul Shetty on 07-03-2024 WBC (Bld) [#/Vol] 8.4 10*3/uL 4.4-11.0 [facility] Erythrocyte distribution wid th ratioOrdered By: Rahul Shetty on 06-29-2024 Erythrocyte distribution width (RBC) [Ratio] 13.7 % 11.6-14.6 [facility] Erythrocyte distribution wid th standard deviationOrdered By: Rahul Shetty on 06-29-2024 Erythrocyte distribution width (RBC) [Ratio] 46.4 fl High 35.1-43.9 [facility] Hematocrit Auto (Bld) [Volum e fraction]Ordered By: Rahul Shetty on 06-29-2024 Hematocrit (Bld) [Volume fraction] 30.7 % Low 37-47 [facility] Hemoglobin measurementOrdere d By: Rahul Shetty on 06-29-2024 Hemoglobin (Bld) [Mass/Vol] 9.8 g/dL Low 12.0-15.0 [facility] MCV (mean corpuscular volume ) determinationOrdered By: Rahul Shetty on 06-29-2024 MCV (RBC) [Entitic vol] 92.5 fL 81-99 [facility] Mean corpuscular hemoglobin (MCH) determinationOrdered By: Rahul Shetty on 06-29-2024 MCH (RBC) [Entitic mass] 29.5 pg 27.0-32.0 [facility] Mean corpuscular hemoglobin concentration (MCHC) determinationOrdered By: Rahul Shetty on 06-29-2024 MCHC (RBC) [Mass/Vol] 31.9 g/dL Low 32-[address] [facility] Mean platelet volume determi nationOrdered By: Rahul Shetty on 06-29-2024 Platelet mean volume (Bld) [Entitic vol] 10.2 fL 6.2-12.0 [facility] Platelet countOrdered By: Vidal Shetty on 06-29-2024 Platelets (Bld) [#/Vol] 286 10*3/uL 150-450 [facility] RBC Auto (Bld) [#/Vol]Ordere d By: Rahul Shetty on 06-29-2024 RBC (Bld) [#/Vol] 3.32 10*6/uL Low 4.2-5.4 [facility] White blood cell (WBC) count Ordered By: Rahul Shetty on 06-29-2024 WBC (Bld) [#/Vol] 8.0 10*3/uL 4.4-11.0 [facility] Erythrocyte distribution wid th ratioOrdered By: Rahul Shetty on 06-28-2024 Erythrocyte distribution width (RBC) [Ratio] 13.7 % 11.6-14.6 [facility] Erythrocyte distribution wid th standard deviationOrdered By: Rahul Shetty on 06-28-2024 Erythrocyte distribution width (RBC) [Ratio] 46.7 fl High 35.1-43.9 [facility] Hematocrit Auto (Bld) [Volum e fraction]Ordered By: Rahul Shetty on 06-28-2024 Hematocrit (Bld) [Volume fraction] 27.6 % Low 37-47 [facility] Hemoglobin measurementOrdere d By: Rahul Shetty on 06-28-2024 Hemoglobin (Bld) [Mass/Vol] 9.0 g/dL Low 12.0-15.0 [facility] MCV (mean corpuscular volume ) determinationOrdered By: Rahul Shetty on 06-28-2024 MCV (RBC) [Entitic vol] 92.0 fL 81-99 [facility] Mean corpuscular hemoglobin (MCH) determinationOrdered By: Rahul Shetty on 06-28-2024 MCH (RBC) [Entitic mass] 30.0 pg 27.0-32.0 [facility] Mean corpuscular hemoglobin concentration (MCHC) determinationOrdered By: Rahul Shetty on 06-28-2024 MCHC (RBC) [Mass/Vol] 32.6 g/dL 32-[address] [facility] Mean platelet volume determi nationOrdered By: Rahul Shetty on 06-28-2024 Platelet mean volume (Bld) [Entitic vol] 10.0 fL 6.2-12.0 [facility] Plastic Surgery Visit Report on 06-28-2024 Plastic Surgery Visit Report [facility] Plastic Reconstructive Surgery [address], [address] [place] [address] OFFICE VISIT Date of Service: 06/28/24 MR#: [id number] Acct: [id number] Name: ROSARIO MCNALLY Rep #: [id number] : 1945 Provider: Dr. Jose Matthews MD Age/Sex: 78/F Location: [facility] Status: Signed Intake Vital Signs 3 06/25/24 [...] 03/28/23 06/28/24 Hi story tablet,extended release aluminum-mag hydroxide-simethicon e 1 tab PO ONCE 03/28/23 06/28/24 History 200 mg-200 mg-25 mg chewable tablet atorvastatin 10 mg tablet 10 mg PO QHS 03/28/23 06/28/24 His tory bisacodyl 10 mg rectal suppository 10 mg GA DAILY PRN 03/28/2306/08 History (Dulcolax (bisacodyl)) carbidopa [...] 06/28/24 Hist ory mineral oil 118 ml GA DAILY PRN 03/28/2306/28 History polyethylene glycol 3350 17 17 g PO DAILY 03/28/23 06/28/24 Hi story gram/dose oral powder (Miralax) Have you fallen in the past year?: Yes (result laceration of left forearm) Nurse's Note: pt here with daughters for follow up from ED, fall resulted in left arm laceration, COUNT INCLUDES [facility] Medical History Blindness left eye category [...] apnea, a (more content not included)... Normal [facility] Platelet countOrdered By: Vidal Shetty on 06-28-2024 Platelets (Bld) [#/Vol] 247 10*3/uL 150-450 [facility] RBC Auto (Bld) [#/Vol]Ordere d By: Rahul Shetty on 06-28-2024 RBC (Bld) [#/Vol] 3.00 10*6/uL Low 4.2-5.4 [facility] White blood cell (WBC) count Ordered By: Rahul Shetty on 06-28-2024 WBC (Bld) [#/Vol] 6.3 10*3/uL 4.4-11.0 [facility] Anion gap in Serum or Plasma Ordered By: Rahul Shetty on 06-27-2024 Anion gap [Moles/Vol] 10 mmol/L 5-[address] [facility] BUN/creatinine ratioOrdered By: Rahul Shetty on 06-27-2024 Urea nitrogen/Creatinine [Mass ratio] 28.9 mg/mg High 10-20 [facility] Bilirubin, totalOrdered By: Rahul Shetty on 06-27-2024 Bilirubin [Mass/Vol] 0.41 mg/dL 0.00-1.30 [facility] Carbon dioxide, total [Moles /volume] in Central venous bloodOrdered By: Rahul Shetty on 06-27-2024 CO2 [Moles/Vol] 25.8 mmol/L 21.0-32.0 [facility] Chloride assayOrdered By: Vidal Shetty on 06-27-2024 Chloride [Moles/Vol] 106 mmol/L 98-108 [facility] Erythrocyte distribution wid th ratioOrdered By: Rahul Shetty on 06-27-2024 Erythrocyte distribution width (RBC) [Ratio] 14.0 % 11.6-14.6 [facility] Erythrocyte distribution wid th standard deviationOrdered By: Rahul Shetty on 06-27-2024 Erythrocyte distribution width (RBC) [Ratio] 46.9 fl High 35.1-43.9 [facility] Glomerular filtration rate ( GFR) estimation/1.73 sq m using serum, plasma, or whole bOrdered By: Rahul Shetty on 06-27-2024 GFR/1.73 sq M.predicted among non-blacks MDRD (S/P/Bld) [Vol rate/Area] 63 mL/min/{1.73_m2} >60 [facility] Comment on above: mL/min/1.73m2 CKD-EP I Creatinine Equation (2020) Hematocrit Auto (Bld) [Volum e fraction]Ordered By: Rahul Shetty on 06-27-2024 Hematocrit (Bld) [Volume fraction] 28.2 % Low 37-47 [facility] Hemoglobin measurementOrdere d By: Rahul Shetty on 06-27-2024 Hemoglobin (Bld) [Mass/Vol] 9.1 g/dL Low 12.0-15.0 [facility] Laboratory - Chemistry and C hemistry - challengeOrdered By: Rahul Shetty on 06-27-2024 AST [Catalytic activity/Vol] 17 U/L <32 [facility] MCV (mean corpuscular volume ) determinationOrdered By: Rahul Shetty on 06-27-2024 MCV (RBC) [Entitic vol] 92.2 fL 81-99 [facility] Mean corpuscular hemoglobin (MCH) determinationOrdered By: Rahul Shetty on 06-27-2024 MCH (RBC) [Entitic mass] 29.7 pg 27.0-32.0 [facility] Mean corpuscular hemoglobin concentration (MCHC) determinationOrdered By: Rahul Shetty on 06-27-2024 MCHC (RBC) [Mass/Vol] 32.3 g/dL 32-[address] [facility] Mean platelet volume determi nationOrdered By: Rahul Shetty on 06-27-2024 Platelet mean volume (Bld) [Entitic vol] 10.2 fL 6.2-12.0 [facility] Platelet countOrdered By: Vidla Shetty on 06-27-2024 Platelets (Bld) [#/Vol] 237 10*3/uL 150-450 [facility] Potassium measurement (mass/ volume)Ordered By: Rahul Shetty on 06-27-2024 Potassium (Unsp spec) [Mass/Vol] 4.3 mmol/L 3.3-5.1 [facility] RBC Auto (Bld) [#/Vol]Ordere d By: Rahul Shetty on 06-27-2024 RBC (Bld) [#/Vol] 3.06 10*6/uL Low 4.2-5.4 [facility] Serum creatinine measurement (mass/volume)Ordered By: Rahul Shetty on 06-27-2024 Creatinine [Mass/Vol] 0.93 mg/dL 0.70-1.[address] [facility] Serum globulin measurementOr dered By: Rahul Shetty on 06-27-2024 Globulin (S) [Mass/Vol] 2.9 g/dL 2.2-4.2 [facility] Serum glucose measurement (m ass/volume)Ordered By: Rahul Shetty on 06-27-2024 Glucose [Mass/Vol] 89 mg/dL 70-99 [facility] Serum or plasma alanine quiles otransferase (ALT) measurementOrdered By: Rahul Shetty on 06-27-2024 ALT [Catalytic activity/Vol] U/L <35 [facility] Serum or plasma albumin patricia urement (mass/volume)Ordered By: Rahul Shetty on 06-27-2024 Albumin [Mass/Vol] 3.7 g/dL 3.4-4.8 [facility] Serum or plasma albumin/glob ulin mass ratioOrdered By: Rahul Shetty on 06-27-2024 Albumin/Globulin [Mass ratio] 1.3 {ratio} 0.9-2.4 [facility] Serum or plasma alkaline enriqueta sphatase measurementOrdered By: Rahul Shetty on 06-27-2024 ALP [Catalytic activity/Vol] 90 U/L 35-104 [facility] Serum or plasma calcium patricia urement (mass/volume)Ordered By: Rahul Shetty on 06-27-2024 Calcium [Mass/Vol] 9.1 mg/dL 7.6-11.0 [facility] Serum or plasma urea nitroge n measurement (mass/volume)Ordered By: Rahul Shetty on 06-27-2024 Urea nitrogen [Mass/Vol] 27 mg/dL High 4-19 [facility] Sodium levelOrdered By: Clyde Shetty on 06-27-2024 Sodium [Moles/Vol] 142 mmol/L 133-145 [facility] Stool gastrointestinal hemog lobin detection by immunologic methodOrdered By: Rahul Shetty on 06-27-2024 Lower GI hemoglobin IA Ql (Stl) Positive Abnormal [facility] Total proteinOrdered By: Lucien Shetty on 06-27-2024 Protein [Mass/Vol] 6.6 g/dL 5.9-8.4 [facility] White blood cell (WBC) count Ordered By: Rahul Shetty on 06-27-2024 WBC (Bld) [#/Vol] 6.9 10*3/uL 4.4-11.0 [facility] Bilirubin Test strip Ql (U)O rdered By: Rahul Shetty on 06-26-2024 Bilirubin Ql (U) Negative Negative [facility] Ketones Test strip Ql (U)Ord ered By: Rahul Shetty on 06-26-2024 Ketones Ql (U) 5 mg/dl High Negative [facility] Microscopic analysis of urin e for red blood cells (RBC)Ordered By: Rahul Shetty on 06-26-2024 Microscopic analysis of urine for red blood cells (RBC) 0 SEEN /hpf 0-5 [facility] Mucus LM Ql (Urine sed)Order ed By: Rahul Shetty on 06-26-2024 Mucus Ql (Urine sed) 1+ /hpf [facility] Nitrite Test strip Ql (U)Ord ered By: Rahul Shetty on 06-26-2024 Nitrite Ql (U) Negative Negative [facility] Protein Test strip Ql (U)Ord ered By: Rahul Shetty on 06-26-2024 Protein Ql (U) 30 mg/dl High Negative [facility] Squamous epithelial cells de tection in urine sediment by light microscopyOrdered By: Rahul Shetty on 06-26-2024 Epithelial cells.squamous LM Ql (Urine sed) 0-5 SEEN /hpf 5-10 [facility] Urine clarityOrdered By: Lucien Shetty on 06-26-2024 Clarity (U) Clear Clear [facility] Urine color determinationOrd ered By: Rahul Shetty on 06-26-2024 Color (U) Yellow Yellow [facility] Urine cultureOrdered By: Lucien Shetty on 06-26-2024 Bacteria identified Cx Nom (U) Positive Abnormal [facility] Urine glucose detectionOrder ed By: Rahul Shetty on 06-26-2024 Glucose Ql (U) Normal mg/dl Normal [facility] Urine leukocyte esterase det ection by dipstickOrdered By: Rahul Shetty on 06-26-2024 Leukocyte esterase Test strip Ql (U) Negative Negative [facility] Urine pHOrdered By: Rahul jackson on 06-26-2024 pH (U) 5.0 [pH] 5.0 - 8.0 [facility] Urine sediment bacteria coun t by microscopy (number/high power field)Ordered By: Rahul Shetty on 06-26-2024 Bacteria LM.HPF (Urine sed) [#/Area] 1 /[HPF] None Seen [facility] Urine sediment fine granular cast count by microscopy (number/low power field)Ordered By: Rahul Shetty on 06-26-2024 Fine Granular Casts LM.LPF (Urine sed) [#/Area] 0-5 SEEN /lpf 0-5 [facility] Urine specific gravity measu rementOrdered By: Rahul Shetty on 06-26-2024 Specific gravity (U) [Rel density] 1.020 1.002-1.030 [facility] Urine urobilinogen measureme ntOrdered By: Rahul Shetty on 06-26-2024 Urobilinogen Ql (U) Normal mg/dl Normal [facility] White blood cell countOrdere d By: Rahul Shetty on 06-26-2024 White blood cell count 0 SEEN /hpf 0-5 [facility] Emergency Department Summary on 06-25-2024 Emergency Department Summary [facility] Medical Records Department [address] [place] [address] Emergency Department Summary 06/25/24 MR#: [id number] Acct: [id number] Name: ROSARIO MCNALLY Rep #: [id number] : 1945 78 From: Joel Muniz MD PCP: Dr. Yahaira Winn MD Status:DEP ER Location: ED HPI History of Present Illness HPI Narrative: 78-year-old female history of Parkinson disease, anemia. Unwitnessed fall today at [facility]. Has a large forearm laceration/skin tear. Denies hitting her head. Denies any LOC. Denies any other complaints. She is right-hand dominant. Unsure of her tetanus is up-to-date. Chief Complaint: Laceration Informant: patient Occured/Mechanism Mechanism/Context: Yes injury and Yes blunt trauma Onset/Context/Timing Onset: Today and Hours Context: Sudden Onset Timing: Continuous Current Severity: Moderate Maximum Severity: Moderate Associated Symptoms Associated Symptoms: Negative for Parasthesia, Weakness or Loss of Funtion Narrative Narrative: 78-year-old female from [facility]. Unwitnessed fall. Large skin tear left forearm over the dorsum. Denies other complaints. No head injury. No LOC. She is on no blood thinners. Tetanus Immunization: Unknown Prior similar symptoms: No Recent Illness/Hospitalizat ion: No PFSH PFSH Medical History Blindness left eye category 5, normal vision right eye Unsteadiness on feet Difficulty in walking Anemia Lung nodule Depression Wrist fracture, right Orthostatic hypotension Essential hypertension Subarachnoid hemorrhage following injury Hyperlipidemia Parkinson's disease Home Medications ???Medication ???Instructions ???Recorded ???Last Taken ???Type acetaminophen 650 mg 650 mg PO Q8H 03/28/23 Unknown His tory tablet,extended release aluminum-mag hydroxide-simethicon e 1 tab PO ONCE 03/28/23 Unknown H istory 200 mg-200 mg-25 mg chewable tablet atorvastatin 10 mg tablet 10 mg PO QHS 03/28/23 Unknown Hist ory bisacodyl 10 mg rectal suppository 10 mg GA DAILY PRN 03/28/23 Unkn own History (Dulcolax [...] Unknown Histo ry mineral oil 118 ml GA DAILY PRN 03/28/23 Unkno wn History polyethylene [...] Denies anxiety Endocrine Endocrinology: Denies cold intolerance Hematologic/Lymphati c Hematologic/Lymphati c: Denies easy bleeding, easy bruising or lymphadenopathy Allergic/Immunologic Allergic/Immunologic ED: Denies tongue swelling or urticaria EXAM [...] girdle int (more content not included)... Normal [facility] Forearm 2 Viewson 06-25-[address] [facility] Imaging Services [address], [place] [address] Forearm 2 Views MR#: [id number] Acct: [id number] Name: ROSARIO MCNALLY Rep #: [id number] : 1945 F 78 From: Joao Rondon MD PCP: Dr. Yahaira Winn MD Status: REG ER Study: Forearm 2 Views Date of Exam: 06/25/24 Exam# [id number] Ordering Dr: Joel Muniz MD PROCEDURE: FOREARM [...] osteopenia slightly limits this evaluation. Reading Location: [id number] CC: Dr. Yahaira Winn MD; Dr. Joel Muniz MD Heel Shaver: Signed Normal [facility] LABORATORYOrdered By: Cate Galloway on 02-23-2023 Glucose [Mass/Vol] 133 mg/dL High 82 - 115 mg/dL [facility] EMERGENCY REPORTon [address] [facility] EMERGENCY ROOM REPORT NAME ACCOUNT SEX AGE ADMIT DISCHARGE PT MED. RECORD# NUMBER DATE DATE TYPE DALI [id number] F 77 02/08/23 02/08/23 3 ROSARIO Lopez [id number] ROOM: ER DATE OF : 1945 DICTATING PHYSICIAN: Grey Connor CHIEF COMPLAINT: Frequent falls with falling down steps and increasingly weak and confused. HISTORY OF PRESENT ILLNESS: Teressa patient lives at home. Normally, according to family, she gets around fairly well. She has Parkinson, so she does seem to shuffle a lot". Her daughter relates that she has recently [...] noted on the surgery list. MEDICATIONS: Per [facility] rec list. SOCIAL HISTORY: She lives at [...] Grey Connor MD 02/08/23 15:14 JOB #: [id number] Transcribed By: ian 02/09/23 07:28 Electronically signed by: OMDESTO Connor M.D. 02/22/23 07:05 Page 2 of 2 ROSARIO MCNALLY Emergency Room Report Normal [facility] XR WRIST MINIMUM 3 VIEWS RIG on [...] 02/21/2023 12:22:22 PM Ordering Provider: STAN Tirado [facility] ([place]) .Auto Diffon 02-16-2023 Basophil, Absolute 0.0 10 3/mcL Normal 0.0-0.3 [facility] ([place]) Comment on above: Performed By: #### C BC, MG, ADIFF, BMP, ANEU, GFR, LARON #### [address] [address] Basophils/100 WBC (Bld) 0.6 % Normal 0.0-2.5 [facility] ([place]) Comment on above: Performed By: #### C BC, MG, ADIFF, BMP, ANEU, GFR, LARON #### [address] [address] Eosinophil, Absolute 0.3 10 3/mcL Normal 0.0-0.7 [facility] ([place]) Comment on above: Performed By: #### C BC, MG, ADIFF, BMP, ANEU, GFR, LARON #### [address] [address] Eosinophils/100 WBC (Bld) 4.3 % Normal 0.0-6.0 [facility] ([place]) Comment on above: Performed By: #### C BC, MG, ADIFF, BMP, ANEU, GFR, LARON #### [address] [address] Lymphocyte, Absolute 1.1 10 3/mcL Normal 0.9-4.3 [facility] ([place] Comment on above: Performed By: #### C BC, MG, ADIFF, BMP, ANEU, GFR, LARON #### [address] [address] Lymphocytes/100 WBC (Bld) 18.4 % Low 20.0-40.0 [facility] ([place] Comment on above: Performed By: #### C BC, MG, ADIFF, BMP, ANEU, GFR, LARON #### [address] [address] Monocyte, Absolute 0.7 10 3/mcL Normal 0.1-1.4 [facility] ([place] Comment on above: Performed By: #### C BC, MG, ADIFF, BMP, ANEU, GFR, LARON #### [address] [address] Monocytes/100 WBC (Bld) 11.9 % Normal 2.0-13.0 [facility] ([place]) Comment on above: Performed By: #### C BC, MG, ADIFF, BMP, ANEU, GFR, LARON #### [address] [address] Neutrophils/100 WBC (Bld) 64.8 % Normal 50.0-75.0 [facility] ([place] Comment on above: Performed By: #### C BC, MG, ADIFF, BMP, ANEU, GFR, LARON #### [address] [address] .GFRon 02-16-2023 GFR >60 Normal [facility] ([place] Comment on above: Result Comment: GFR [...] MG, ADIFF, BMP, ANEU, GFR, LARON #### [address] [address] GFR Non- >60 Normal [facility] ([place] Comment on above: Result Comment: GFR [...] MG, ADIFF, BMP, ANEU, GFR, LARON #### [address] [address] .NEUABSon 02-16-2023 Neutrophil, Absolute 4.0 10 3/mcL Normal 2.3-8.1 [facility] ([place] Comment on above: Performed By: #### C BC, MG, ADIFF, BMP, ANEU, GFR, LARON #### [place] [id number] BMPon 02-16-2023 BUN/Creatinine Ratio 19.0 ratio Normal 10.0-22.0 [facility] ([place] Comment on above: Performed By: #### C BC, MG, ADIFF, BMP, ANEU, GFR, LARON #### [place] [id number] Calcium [Mass/Vol] 8.8 mg/dL Normal 8.7-10.4 [facility] ([place]) Comment on above: Performed By: #### C BC, MG, ADIFF, BMP, ANEU, GFR, LARON #### [place] [id number] Chloride [Moles/Vol] 105 mmol/L Normal 98-110 [facility] ([place] Comment on above: Performed By: #### C BC, MG, ADIFF, BMP, ANEU, GFR, LARON #### [place] [id number] CO2 [Moles/Vol] 33 mmol/L High 22-32 [facility] ([place] Comment on above: Performed By: #### C BC, MG, ADIFF, BMP, ANEU, GFR, LARON #### [address] [address] Creatinine [Mass/Vol] 0.58 mg/dL Normal 0.50-1.20 [facility] ([place]) Comment on above: Performed By: #### C BC, MG, ADIFF, BMP, ANEU, GFR, LARON #### [address] [address] Electrolyte Balance 2.0 mEq/L Low 4.0-15.0 [facility] ([place]) Comment on above: Performed By: #### C BC, MG, ADIFF, BMP, ANEU, GFR, LARON #### [place] [id number] Glucose [Mass/Vol] 90 mg/dL Normal 82-115 [facility] ([place]) Comment on above: Performed By: #### C BC, MG, ADIFF, BMP, ANEU, GFR, LARON #### [place] [address] Potassium [Moles/Vol] 3.6 mmol/L Normal 3.5-5.0 [facility] ([place] Comment on above: Performed By: #### C BC, MG, ADIFF, BMP, ANEU, GFR, LARON #### [place] [id number] Sodium [Moles/Vol] 140 mmol/L Normal 136-145 [facility] ([place]) Comment on above: Performed By: #### C BC, MG, ADIFF, BMP, ANEU, GFR, LARON #### [place] [id number] Urea nitrogen [Mass/Vol] 11.0 mg/dL Normal 8.0-22.0 [facility] ([place] Comment on above: Performed By: #### C BC, MG, ADIFF, BMP, ANEU, GFR, LARON #### [address] [address] CBCon 02-16-2023 Erythrocyte distribution width (RBC) [Ratio] 13.8 % Normal 11.5-15.5 [facility] ([place] Comment on above: Performed By: #### C BC, MG, ADIFF, BMP, ANEU, GFR, LARON #### [place] [id number] Hematocrit (Bld) [Volume fraction] 28.4 % Low 34.0-46.0 [facility] ([place] Comment on above: Performed By: #### C BC, MG, ADIFF, BMP, ANEU, GFR, LARON #### [place] [id number] Hgb 9.9 G/dL Low 12.0-16.0 [facility] ([place] Comment on above: Performed By: #### C BC, MG, ADIFF, BMP, ANEU, GFR, LARON #### [place] [address] MCH (RBC) [Entitic mass] 31.1 pg Normal 27.0-33.0 [facility] ([place] Comment on above: Performed By: #### C BC, MG, ADIFF, BMP, ANEU, GFR, LARON #### [place] [address] MCHC 34.7 G/dL Normal 32.0-36.0 [facility] ([place] Comment on above: Performed By: #### C BC, MG, ADIFF, BMP, ANEU, GFR, LARON #### [place] [address] MCV (RBC) [Entitic vol] 89.6 fL Normal 80.0-99.0 [facility] ([place]) Comment on above: Performed By: #### C BC, MG, ADIFF, BMP, ANEU, GFR, LARON #### [place] [address] Platelet 284 10 3/mcL Normal 150-450 [facility] ([place]) Comment on above: Performed By: #### C BC, MG, ADIFF, BMP, ANEU, GFR, LARON #### [place] [address] Platelet mean volume (Bld) [Entitic vol] 7.9 fL Normal 6.6-10.5 [facility] ([place] Comment on above: Performed By: #### C BC, MG, ADIFF, BMP, ANEU, GFR, LARON #### [place] [address] [place] [address] RBC 3.17 10 6/mcL Low 4.10-5.30 [facility] ([place]) Comment on above: Performed By: #### C BC, MG, ADIFF, BMP, ANEU, GFR, LARON #### [facility] [address] [place] [address] WBC 6.2 10 3/mcL Normal 4.5-10.8 [facility] ([place]) Comment on above: Performed By: #### C BC, MG, ADIFF, BMP, ANEU, GFR, LARON #### [place] [id number] [place] [address] LABORATORYOrdered By: SYSTEM SYSTEM on 02-16-2023 Basophils [...] Basophil, Absolute 0.0 10 3/mcL Normal 0.0-0.3 [facility] ([place] Comment on above: Performed By: #### C BC, MG, ADIFF, BMP, ANEU, GFR, LARON #### [address] [address] Basophils/100 WBC (Bld) 0.5 % Normal 0.0-2.5 [facility] ([place]) Comment on above: Performed By: #### C BC, MG, ADIFF, BMP, ANEU, GFR, LARON #### [address] [address] Eosinophil, Absolute 0.2 10 3/mcL Normal 0.0-0.7 [facility] ([place]) Comment on above: Performed By: #### C BC, MG, ADIFF, BMP, ANEU, GFR, LARON #### [address] [address] Eosinophils/100 WBC (Bld) 3.1 % Normal 0.0-6.0 [facility] ([place]) Comment on above: Performed By: #### C BC, MG, ADIFF, BMP, ANEU, GFR, LARON #### [address] [address] Lymphocyte, Absolute 1.4 10 3/mcL Normal 0.9-4.3 [facility] ([place]) Comment on above: Performed By: #### C BC, MG, ADIFF, BMP, ANEU, GFR, LARON #### [address] [address] Lymphocytes/100 WBC (Bld) 19.7 % Low 20.0-40.0 [facility] ([place]) Comment on above: Performed By: #### C BC, MG, ADIFF, BMP, ANEU, GFR, LARON #### [address] [address] Monocyte, Absolute 0.8 10 3/mcL Normal 0.1-1.4 [facility] ([place] Comment on above: Performed By: #### C BC, MG, ADIFF, BMP, ANEU, GFR, LARON #### [address] [address] Monocytes/100 WBC (Bld) 11.1 % Normal 2.0-13.0 [facility] ([place]) Comment on above: Performed By: #### C BC, MG, ADIFF, BMP, ANEU, GFR, LARON #### [address] [address] Neutrophils/100 WBC (Bld) 65.6 % Normal 50.0-75.0 [facility] ([place]) Comment on above: Performed By: #### C BC, MG, ADIFF, BMP, ANEU, GFR, LARON #### [address] [address] .GFRon 02-15-2023 GFR >60 Normal [facility] ([place]) Comment on above: Result Comment: GFR [...] MG, ADIFF, BMP, ANEU, GFR, LARON #### [place] [address] GFR Non- >60 Normal [facility] ([place] Comment on above: Result Comment: GFR [...] BMP, ANEU, GFR, LARON #### [place] [id number] .NEUABSon 02-15-2023 Neutrophil, Absolute 4.5 10 3/mcL Normal 2.3-8.1 [facility] ([place] Comment on above: Performed By: #### C BC, MG, ADIFF, BMP, ANEU, GFR, LARON #### [address] [address] BMPon 02-15-2023 BUN/Creatinine Ratio 17.5 ratio Normal 10.0-22.0 [facility] ([place] Comment on above: Performed By: #### C BC, MG, ADIFF, BMP, ANEU, GFR, LARON #### [place] [id number] Calcium [Mass/Vol] 8.4 mg/dL Low 8.7-10.4 [facility] ([place]) Comment on above: Performed By: #### C BC, MG, ADIFF, BMP, ANEU, GFR, LARON #### [place] [id number] Chloride [Moles/Vol] 111 mmol/L High 98-110 [facility] ([place] Comment on above: Performed By: #### C BC, MG, ADIFF, BMP, ANEU, GFR, LARON #### [place] [address] CO2 [Moles/Vol] 29 mmol/L Normal 22-32 [facility] ([place] Comment on above: Performed By: #### C BC, MG, ADIFF, BMP, ANEU, GFR, LARON #### [place] [address] Creatinine [Mass/Vol] 0.57 mg/dL Normal 0.50-1.20 [facility] ([place] Comment on above: Performed By: #### C BC, MG, ADIFF, BMP, ANEU, GFR, LARNO #### [place] [address] Electrolyte Balance 2.0 mEq/L Low 4.0-15.0 [facility] ([place]) Comment on above: Performed By: #### C BC, MG, ADIFF, BMP, ANEU, GFR, LARON #### [place] [address] Glucose [Mass/Vol] 87 mg/dL Normal 82-115 [facility] ([place]) Comment on above: Performed By: #### C BC, MG, ADIFF, BMP, ANEU, GFR, LARON #### [address] [address] Potassium [Moles/Vol] 3.6 mmol/L Normal 3.5-5.0 [facility] ([place] Comment on above: Performed By: #### C BC, MG, ADIFF, BMP, ANEU, GFR, LARON #### [place] [id number] Sodium [Moles/Vol] 142 mmol/L Normal 136-145 [facility] ([place]) Comment on above: Performed By: #### C BC, MG, ADIFF, BMP, ANEU, GFR, LARON #### [place] [id number] Urea nitrogen [Mass/Vol] 10.0 mg/dL Normal 8.0-22.0 [facility] ([place] Comment on above: Performed By: #### C BC, MG, ADIFF, BMP, ANEU, GFR, LARON #### [place] [id number] CBCon 02-15-2023 Erythrocyte distribution width (RBC) [Ratio] 14.0 % Normal 11.5-15.5 [facility] ([place] Comment on above: Performed By: #### C BC, MG, ADIFF, BMP, ANEU, GFR, LARON #### [place] [address] Hematocrit (Bld) [Volume fraction] 31.1 % Low 34.0-46.0 [facility] ([place] Comment on above: Performed By: #### C BC, MG, ADIFF, BMP, ANEU, GFR, LARON #### [place] [id number] Hgb 10.3 G/dL Low 12.0-16.0 [facility] ([place] Comment on above: Performed By: #### C BC, MG, ADIFF, BMP, ANEU, GFR, LARON #### [place] [id number] MCH (RBC) [Entitic mass] 29.8 pg Normal 27.0-33.0 [facility] ([place] Comment on above: Performed By: #### C BC, MG, ADIFF, BMP, ANEU, GFR, LARON #### [place] [address] MCHC 33.1 G/dL Normal 32.0-36.0 [facility] ([place] Comment on above: Performed By: #### C BC, MG, ADIFF, BMP, ANEU, GFR, LARON #### [place] [address] MCV (RBC) [Entitic vol] 90.2 fL Normal 80.0-99.0 [facility] ([place]) Comment on above: Performed By: #### C BC, MG, ADIFF, BMP, ANEU, GFR, LARON #### [place] [address] Platelet 271 10 3/mcL Normal 150-450 [facility] ([place] Comment on above: Performed By: #### C BC, MG, ADIFF, BMP, ANEU, GFR, LARON #### [place] [address] Platelet mean volume (Bld) [Entitic vol] 8.1 fL Normal 6.6-10.5 [facility] ([place] Comment on above: Performed By: #### C BC, MG, ADIFF, BMP, ANEU, GFR, LARON #### [place] [address] RBC 3.45 10 6/mcL Low 4.10-5.30 [facility] ([place] Comment on above: Performed By: #### C BC, MG, ADIFF, BMP, ANEU, GFR, LARON #### [place] [address] WBC 6.9 10 3/mcL Normal 4.5-10.8 [facility] ([place] Comment on above: Performed By: #### C BC, MG, ADIFF, BMP, ANEU, GFR, LARON #### [place] [address] LABORATORYOrdered By: SYSTEM SYSTEM on 02-15-2023 Basophils [...] (S/P/Bld) [Vol rate/Area] ml/min/1.73sqm Invalid Interpretation Code [employer] Chemistry S Comment on above: Interpretive Data: [...] (S/P/Bld) [Vol rate/Area] ml/min/1.73sqm Invalid Interpretation Code [employer] Chemistry S Comment on above: Interpretive Data: [...] 6.9 103/mcL Normal 4.5 - 10.8 10^3/mcL Workflow SS MGon 02-15-2023 Magnesium [Mass/Vol] 1.6 mg/dL Normal 1.6-2.4 [facility] ([place] Comment on above: Performed By: #### C BC, MG, ADIFF, BMP, ANEU, GFR, LARON #### [address] [address] No Panel Informationon 02-14 Culture Urine >100,000 cfu/ml Enterococcus faecalis ANGEL to follow [facility] .Auto Diffon 02-13-2023 Basophil, Absolute 0.0 10 3/mcL Normal 0.0-0.3 [facility] ([place] Comment on above: Performed By: #### C BC, MG, ADIFF, BMP, ANEU, GFR, LARON #### [address] [address] Basophils/100 WBC (Bld) 0.3 % Normal 0.0-2.5 [facility] ([place]) Comment on above: Performed By: #### C BC, MG, ADIFF, BMP, ANEU, GFR, LARON #### [address] [address] Eosinophil, Absolute 0.3 10 3/mcL Normal 0.0-0.7 [facility] ([place]) Comment on above: Performed By: #### C BC, MG, ADIFF, BMP, ANEU, GFR, LARON #### [address] [address] Eosinophils/100 WBC (Bld) 4.0 % Normal 0.0-6.0 [facility] ([place] Comment on above: Performed By: #### C BC, MG, ADIFF, BMP, ANEU, GFR, LARON #### [address] [address] Lymphocyte, Absolute 0.9 10 3/mcL Normal 0.9-4.3 [facility] ([place] Comment on above: Performed By: #### C BC, MG, ADIFF, BMP, ANEU, GFR, LARON #### [address] [address] Lymphocytes/100 WBC (Bld) 12.1 % Low 20.0-40.0 [facility] ([place] Comment on above: Performed By: #### C BC, MG, ADIFF, BMP, ANEU, GFR, LARON #### [address] [address] Monocyte, Absolute 0.8 10 3/mcL Normal 0.1-1.4 [facility] ([place] Comment on above: Performed By: #### C BC, MG, ADIFF, BMP, ANEU, GFR, LARON #### [address] [address] Monocytes/100 WBC (Bld) 11.4 % Normal 2.0-13.0 [facility] ([place]) Comment on above: Performed By: #### C BC, MG, ADIFF, BMP, ANEU, GFR, LARON #### [address] [address] Neutrophils/100 WBC (Bld) 72.2 % Normal 50.0-75.0 [facility] ([place] Comment on above: Performed By: #### C BC, MG, ADIFF, BMP, ANEU, GFR, LARON #### [address] [address] .GFRon 02-13-2023 GFR >60 Normal [facility] ([place] Comment on above: Result Comment: GFR [...] MG, ADIFF, BMP, ANEU, GFR, LARON #### [address] [address] GFR Non- >60 Normal [facility] ([place] Comment on above: Result Comment: GFR [...] MG, ADIFF, BMP, ANEU, GFR, LARON #### [address] [address] .NEUABSon 02-13-2023 Neutrophil, Absolute 5.2 10 3/mcL Normal 2.3-8.1 [facility] ([place] Comment on above: Performed By: #### C BC, MG, ADIFF, BMP, ANEU, GFR, LARON #### [address] [address] BMPon 02-13-2023 BUN/Creatinine Ratio 20.8 ratio Normal 10.0-22.0 [facility] ([place] Comment on above: Performed By: #### C BC, MG, ADIFF, BMP, ANEU, GFR, LARON #### [address] [address] Calcium [Mass/Vol] 8.3 mg/dL Low 8.7-10.4 [facility] ([place]) Comment on above: Performed By: #### C BC, MG, ADIFF, BMP, ANEU, GFR, LARON #### [place] [id number] Chloride [Moles/Vol] 108 mmol/L Normal 98-110 [facility] ([place] Comment on above: Performed By: #### C BC, MG, ADIFF, BMP, ANEU, GFR, LARON #### [place] [id number] CO2 [Moles/Vol] 25 mmol/L Normal 22-32 [facility] ([place] Comment on above: Performed By: #### C BC, MG, ADIFF, BMP, ANEU, GFR, LARON #### [place] [id number] Creatinine [Mass/Vol] 0.53 mg/dL Normal 0.50-1.20 [facility] ([place] Comment on above: Performed By: #### C BC, MG, ADIFF, BMP, ANEU, GFR, LARON #### [address] [address] Electrolyte Balance 7.0 mEq/L Normal 4.0-15.0 [facility] ([place]) Comment on above: Performed By: #### C BC, MG, ADIFF, BMP, ANEU, GFR, LARON #### [address] [address] Glucose [Mass/Vol] 96 mg/dL Normal 82-115 [facility] ([place]) Comment on above: Performed By: #### C BC, MG, ADIFF, BMP, ANEU, GFR, LARON #### [place] [id number] Potassium [Moles/Vol] 3.4 mmol/L Low 3.5-5.0 [facility] ([place] Comment on above: Performed By: #### C BC, MG, ADIFF, BMP, ANEU, GFR, LARON #### [place] [address] Sodium [Moles/Vol] 140 mmol/L Normal 136-145 [facility] ([place]) Comment on above: Performed By: #### C BC, MG, ADIFF, BMP, ANEU, GFR, LARON #### [place] [address] Urea nitrogen [Mass/Vol] 11.0 mg/dL Normal 8.0-22.0 [facility] ([place] Comment on above: Performed By: #### C BC, MG, ADIFF, BMP, ANEU, GFR, LARON #### [place] [address] CBCon 02-13-2023 Erythrocyte distribution width (RBC) [Ratio] 14.2 % Normal 11.5-15.5 [facility] ([place] Comment on above: Performed By: #### C BC, MG, ADIFF, BMP, ANEU, GFR, LARON #### [place] [address] Hematocrit (Bld) [Volume fraction] 29.4 % Low 34.0-46.0 [facility] ([place] Comment on above: Performed By: #### C BC, MG, ADIFF, BMP, ANEU, GFR, LARON #### [place] [address] Hgb 9.9 G/dL Low 12.0-16.0 [facility] ([place] Comment on above: Performed By: #### C BC, MG, ADIFF, BMP, ANEU, GFR, LARON #### [place] [address] MCH (RBC) [Entitic mass] 30.5 pg Normal 27.0-33.0 [facility] ([place] Comment on above: Performed By: #### C BC, MG, ADIFF, BMP, ANEU, GFR, LARON #### [place] [address] MCHC 33.6 G/dL Normal 32.0-36.0 [facility] ([place] Comment on above: Performed By: #### C BC, MG, ADIFF, BMP, ANEU, GFR, LARON #### [place] [address] MCV (RBC) [Entitic vol] 90.6 fL Normal 80.0-99.0 [facility] ([place]) Comment on above: Performed By: #### C BC, MG, ADIFF, BMP, ANEU, GFR, LARON #### [place] [address] Platelet 221 10 3/mcL Normal 150-450 [facility] ([place] Comment on above: Performed By: #### C BC, MG, ADIFF, BMP, ANEU, GFR, LARON #### [place] [address] Platelet mean volume (Bld) [Entitic vol] 7.6 fL Normal 6.6-10.5 [facility] ([place] Comment on above: Performed By: #### C BC, MG, ADIFF, BMP, ANEU, GFR, LARON #### [place] [address] RBC 3.24 10 6/mcL Low 4.10-5.30 [facility] ([place] Comment on above: Performed By: #### C BC, MG, ADIFF, BMP, ANEU, GFR, LARON #### [place] [address] WBC 7.2 10 3/mcL Normal 4.5-10.8 [facility] ([place] Comment on above: Performed By: #### C BC, MG, ADIFF, BMP, ANEU, GFR, LARON #### [place] [address] LABORATORYOrdered By: SYSTEM SYSTEM on 02-13-2023 Basophils [...] (S/P/Bld) [Vol rate/Area] ml/min/1.73sqm Invalid Interpretation Code [employer] Chemistry S Comment on above: Interpretive Data: [...] (S/P/Bld) [Vol rate/Area] ml/min/1.73sqm Invalid Interpretation Code [employer] Chemistry S Comment on above: Interpretive Data: [...] 96 mg/dL Normal 82 - 115 mg/dL ADM SS Hematocrit (Bld) [Volume fraction] 29.4 [...] Basophil, Absolute 0.0 10 3/mcL Normal 0.0-0.3 [facility] ([place] Comment on above: Performed By: #### C BC, MG, ADIFF, BMP, ANEU, GFR, LARON #### [address] [address] Basophils/100 WBC (Bld) 0.5 % Normal 0.0-2.5 [facility] ([place]) Comment on above: Performed By: #### C BC, MG, ADIFF, BMP, ANEU, GFR, LARON #### [address] [address] Eosinophil, Absolute 0.4 10 3/mcL Normal 0.0-0.7 [facility] ([place] Comment on above: Performed By: #### C BC, MG, ADIFF, BMP, ANEU, GFR, LARON #### [address] [address] Eosinophils/100 WBC (Bld) 5.1 % Normal 0.0-6.0 [facility] ([place]) Comment on above: Performed By: #### C BC, MG, ADIFF, BMP, ANEU, GFR, LARON #### [address] [address] Lymphocyte, Absolute 1.6 10 3/mcL Normal 0.9-4.3 [facility] ([place]) Comment on above: Performed By: #### C BC, MG, ADIFF, BMP, ANEU, GFR, LARON #### [address] [address] Lymphocytes/100 WBC (Bld) 18.9 % Low 20.0-40.0 [facility] ([place]) Comment on above: Performed By: #### C BC, MG, ADIFF, BMP, ANEU, GFR, LARON #### [address] [address] Monocyte, Absolute 0.9 10 3/mcL Normal 0.1-1.4 [facility] ([place]) Comment on above: Performed By: #### C BC, MG, ADIFF, BMP, ANEU, GFR, LARON #### [place] [id number] Monocytes/100 WBC (Bld) 11.1 % Normal 2.0-13.0 [facility] ([place]) Comment on above: Performed By: #### C BC, MG, ADIFF, BMP, ANEU, GFR, LARON #### [place] [address] Neutrophils/100 WBC (Bld) 64.4 % Normal 50.0-75.0 [facility] ([place]) Comment on above: Performed By: #### C BC, MG, ADIFF, BMP, ANEU, GFR, LARON #### [place] [id number] .GFRon 02-11-2023 GFR >60 Normal [facility] ([place]) Comment on above: Result Comment: GFR [...] MG, ADIFF, BMP, ANEU, GFR, LARON #### [place] [address] GFR Non- >60 Normal [facility] ([place]) Comment on above: Result Comment: GFR [...] MG, ADIFF, BMP, ANEU, GFR, LARON #### [address] [address] .NEUABSon 02-11-2023 Neutrophil, Absolute 5.4 10 3/mcL Normal 2.3-8.1 [facility] ([place]) Comment on above: Performed By: #### C BC, MG, ADIFF, BMP, ANEU, GFR, LARON #### [address] [address] BMPon 02-11-2023 BUN/Creatinine Ratio 28.8 ratio High 10.0-22.0 [facility] ([place]) Comment on above: Performed By: #### C BC, MG, ADIFF, BMP, ANEU, GFR, LARON #### [address] [address] Calcium [Mass/Vol] 8.7 mg/dL Normal 8.7-10.4 [facility] ([place]) Comment on above: Performed By: #### C BC, MG, ADIFF, BMP, ANEU, GFR, LARON #### [address] [address] Chloride [Moles/Vol] 107 mmol/L Normal 98-110 [facility] ([place]) Comment on above: Performed By: #### C BC, MG, ADIFF, BMP, ANEU, GFR, LARON #### [address] [address] CO2 [Moles/Vol] 29 mmol/L Normal 22-32 [facility] ([place]) Comment on above: Performed By: #### C BC, MG, ADIFF, BMP, ANEU, GFR, LARON #### [place] [id number] Creatinine [Mass/Vol] 0.80 mg/dL Normal 0.50-1.20 [facility] ([place]) Comment on above: Performed By: #### C BC, MG, ADIFF, BMP, ANEU, GFR, LARON #### [place] [id number] Electrolyte Balance 5.0 mEq/L Normal 4.0-15.0 [facility] ([place]) Comment on above: Performed By: #### C BC, MG, ADIFF, BMP, ANEU, GFR, LARON #### [place] [id number] Glucose [Mass/Vol] 98 mg/dL Normal 82-115 [facility] ([place]) Comment on above: Performed By: #### C BC, MG, ADIFF, BMP, ANEU, GFR, LARON #### [place] [address] Potassium [Moles/Vol] 3.4 mmol/L Low 3.5-5.0 [facility] ([place]) Comment on above: Performed By: #### C BC, MG, ADIFF, BMP, ANEU, GFR, LARON #### [place] [id number] Sodium [Moles/Vol] 141 mmol/L Normal 136-145 [facility] ([place]) Comment on above: Performed By: #### C BC, MG, ADIFF, BMP, ANEU, GFR, LARON #### [place] [id number] Urea nitrogen [Mass/Vol] 23.0 mg/dL High 8.0-22.0 [facility] ([place]) Comment on above: Performed By: #### C BC, MG, ADIFF, BMP, ANEU, GFR, LARON #### [address] [address] CBCon 02-11-2023 Erythrocyte distribution width (RBC) [Ratio] 13.9 % Normal 11.5-15.5 [facility] ([place]) Comment on above: Performed By: #### C BC, MG, ADIFF, BMP, ANEU, GFR, LARON #### [place] [address] Hematocrit (Bld) [Volume fraction] 28.6 % Low 34.0-46.0 [facility] ([place]) Comment on above: Performed By: #### C BC, MG, ADIFF, BMP, ANEU, GFR, LARON #### [place] [address] Hgb 9.9 G/dL Low 12.0-16.0 [facility] ([place]) Comment on above: Performed By: #### C BC, MG, ADIFF, BMP, ANEU, GFR, LARON #### [place] [address] MCH (RBC) [Entitic mass] 31.2 pg Normal 27.0-33.0 [facility] ([place] Comment on above: Performed By: #### C BC, MG, ADIFF, BMP, ANEU, GFR, LARON #### [place] [address] MCHC 34.7 G/dL Normal 32.0-36.0 [facility] ([place] Comment on above: Performed By: #### C BC, MG, ADIFF, BMP, ANEU, GFR, LARON #### [place] [address] MCV (RBC) [Entitic vol] 89.9 fL Normal 80.0-99.0 [facility] ([place]) Comment on above: Performed By: #### C BC, MG, ADIFF, BMP, ANEU, GFR, LARON #### [place] [address] Platelet 201 10 3/mcL Normal 150-450 [facility] ([place]) Comment on above: Performed By: #### C BC, MG, ADIFF, BMP, ANEU, GFR, LARON #### [place] [address] Platelet mean volume (Bld) [Entitic vol] 7.9 fL Normal 6.6-10.5 [facility] ([place]) Comment on above: Performed By: #### C BC, MG, ADIFF, BMP, ANEU, GFR, LARON #### [place] [address] RBC 3.18 10 6/mcL Low 4.10-5.30 [facility] ([place]) Comment on above: Performed By: #### C BC, MG, ADIFF, BMP, ANEU, GFR, LARON #### [place] [address] WBC 8.4 10 3/mcL Normal 4.5-10.8 [facility] ([place]) Comment on above: Performed By: #### C BC, MG, ADIFF, BMP, ANEU, GFR, LARON #### [place] [address] CORTon 02-11-2023 Cortisol Level 17.4 mcg/dL Normal [facility] ([place]) Comment on above: Result Comment: Laron isol AM Reference Range 6.5-26.0 mcg/dL Cortisol PM Reference Range 3.5-15.0 mcg/dL Performed By: #### C BC, MG, ADIFF, BMP, ANEU, GFR, LARON #### [place] [address] LABORATORYOrdered By: SYSTEM SYSTEM on 02-11-2023 Basophils [...] (S/P/Bld) [Vol rate/Area] ml/min/1.73sqm Invalid Interpretation Code [employer] S Comment on above: Interpretive Data: [...] (S/P/Bld) [Vol rate/Area] ml/min/1.73sqm Invalid Interpretation Code [employer] Comment on above: Interpretive Data: [...] mg/dL Normal 1.6 - 2 .4 mg/dL AH ADM SS MCH (RBC) [Entitic mass] 31.2 pg Normal 27.0 - 33.0 pg AH Workflow SS MCHC 34.7 G/dL Normal 32.0 - 36.0 G/dL AH Workflow SS MCV (RBC) [Entitic vol] 89.9 fL Normal 80.0 - 99.0 fL AH Workflow SS Monocytes (Bld) [#/Vol] 0.9 103/mcL [...] 02-11-2023 Magnesium [Mass/Vol] 1.8 mg/dL Normal 1.6-2.4 [facility] ([place]) Comment on above: Performed By: #### C BC, MG, ADIFF, BMP, ANEU, GFR, LARON #### [address] [address] .Auto Diffon 02-09-2023 Basophil, Absolute 0.0 10 3/mcL Normal 0.0-0.3 [facility] ([place]) Comment on above: Performed By: #### B MP, CBC, ANEU, GFR, ADIFF #### [address] [address] Basophils/100 WBC (Bld) 0.5 % Normal 0.0-2.5 [facility] ([place]) Comment on above: Performed By: #### B MP, CBC, ANEU, GFR, ADIFF #### [address] [address] Eosinophil, Absolute 0.4 10 3/mcL Normal 0.0-0.7 [facility] ([place]) Comment on above: Performed By: #### B MP, CBC, ANEU, GFR, ADIFF #### [address] [address] Eosinophils/100 WBC (Bld) 3.7 % Normal 0.0-6.0 [facility] ([place]) Comment on above: Performed By: #### B MP, CBC, ANEU, GFR, ADIFF #### [address] [address] Lymphocyte, Absolute 1.2 10 3/mcL Normal 0.9-4.3 [facility] ([place]) Comment on above: Performed By: #### B MP, CBC, ANEU, GFR, ADIFF #### [place] [address] Lymphocytes/100 WBC (Bld) 13.0 % Low 20.0-40.0 [facility] ([place]) Comment on above: Performed By: #### B MP, CBC, ANEU, GFR, ADIFF #### [address] [address] Monocyte, Absolute 1.0 10 3/mcL Normal 0.1-1.4 [facility] ([place]) Comment on above: Performed By: #### B MP, CBC, ANEU, GFR, ADIFF #### [address] [address] Monocytes/100 WBC (Bld) 10.7 % Normal 2.0-13.0 [facility] ([place]) Comment on above: Performed By: #### B MP, CBC, ANEU, GFR, ADIFF #### [address] [address] Neutrophils/100 WBC (Bld) 72.1 % Normal 50.0-75.0 [facility] ([place]) Comment on above: Performed By: #### B MP, CBC, ANEU, GFR, ADIFF #### [address] [address] .GFRon 02-09-2023 GFR >60 Normal [facility] ([place]) Comment on above: Result Comment: GFR [...] MG, ADIFF, BMP, ANEU, GFR, LARON #### [address] [address] GFR Non- >60 Normal [facility] ([place]) Comment on above: Result Comment: GFR [...] MG, ADIFF, BMP, ANEU, GFR, LARON #### [address] [address] .NEUABSon 02-09-2023 Neutrophil, Absolute 6.9 10 3/mcL Normal 2.3-8.1 [facility] ([place]) Comment on above: Performed By: #### C BC, MG, ADIFF, BMP, ANEU, GFR, LARON #### [address] [address] BMPon 02-09-2023 BUN/Creatinine Ratio 27.1 ratio High 10.0-22.0 [facility] ([place]) Comment on above: Order Comment: Shuni ne for 0501 the morning of patient admission. Performed By: #### C BC, MG, ADIFF, BMP, ANEU, GFR, LARON #### [address] [address] Calcium [Mass/Vol] 9.0 mg/dL Normal 8.7-10.4 [facility] ([place]) Comment on above: Order Comment: Shuni ne for 0501 the morning of patient admission. Performed By: #### C BC, MG, ADIFF, BMP, ANEU, GFR, LARON #### [address] [address] Chloride [Moles/Vol] 109 mmol/L Normal 98-110 [facility] ([place]) Comment on above: Order Comment: Routi ne for 0501 the morning of patient admission. Performed By: #### C BC, MG, ADIFF, BMP, ANEU, GFR, LARON #### [place] [id number] CO2 [Moles/Vol] 27 mmol/L Normal 22-32 [facility] ([place]) Comment on above: Order Comment: Routi ne for 0501 the morning of patient admission. Performed By: #### C BC, MG, ADIFF, BMP, ANEU, GFR, LARON #### [place] [address] Creatinine [Mass/Vol] 0.70 mg/dL Normal 0.50-1.20 [facility] ([place]) Comment on above: Order Comment: Routi ne for 0501 the morning of patient admission. Performed By: #### C BC, MG, ADIFF, BMP, ANEU, GFR, LARON #### [place] [address] Electrolyte Balance 5.0 mEq/L Normal 4.0-15.0 [facility] ([place]) Comment on above: Order Comment: Routi ne for 0501 the morning of patient admission. Performed By: #### C BC, MG, ADIFF, BMP, ANEU, GFR, LARON #### [place] [address] Glucose [Mass/Vol] 102 mg/dL Normal 82-115 [facility] ([place]) Comment on above: Order Comment: Routi ne for 0501 the morning of patient admission. Performed By: #### C BC, MG, ADIFF, BMP, ANEU, GFR, LARON #### [place] [address] Potassium [Moles/Vol] 3.4 mmol/L Low 3.5-5.0 [facility] ([place]) Comment on above: Order Comment: Routi ne for 0501 the morning of patient admission. Performed By: #### C BC, MG, ADIFF, BMP, ANEU, GFR, LARON #### [place] [id number] Sodium [Moles/Vol] 141 mmol/L Normal 136-145 [facility] ([place]) Comment on above: Order Comment: Routi ne for 0501 the morning of patient admission. Performed By: #### C BC, MG, ADIFF, BMP, ANEU, GFR, LARON #### [place] [address] Urea nitrogen [Mass/Vol] 19.0 mg/dL Normal 8.0-22.0 [facility] ([place] Comment on above: Order Comment: Routi ne for 0501 the morning of patient admission. Performed By: #### C BC, MG, ADIFF, BMP, ANEU, GFR, LARON #### [place] [id number] CBCon 02-09-2023 Erythrocyte distribution width (RBC) [Ratio] 14.0 % Normal 11.5-15.5 [facility] ([place] Comment on above: Order Comment: Routi ne for 0501 the morning of patient admission. Performed By: #### B MP, CBC, ANEU, GFR, ADIFF #### [place] [address] Hematocrit (Bld) [Volume fraction] 28.5 % Low 34.0-46.0 [facility] ([place] Comment on above: Order Comment: Routi ne for 0501 the morning of patient admission. Performed By: #### B MP, CBC, ANEU, GFR, ADIFF #### [place] [address] Hgb 9.6 G/dL Low 12.0-16.0 [facility] ([place] Comment on above: Order Comment: Routi ne for 0501 the morning of patient admission. Performed By: #### B MP, CBC, ANEU, GFR, ADIFF #### [place] [id number] MCH (RBC) [Entitic mass] 30.4 pg Normal 27.0-33.0 [facility] ([place] Comment on above: Order Comment: Routi ne for 0501 the morning of patient admission. Performed By: #### B MP, CBC, ANEU, GFR, ADIFF #### [place] [id number] MCHC 33.8 G/dL Normal 32.0-36.0 [facility] ([place] Comment on above: Order Comment: Routi ne for 0501 the morning of patient admission. Performed By: #### B MP, CBC, ANEU, GFR, ADIFF #### [place] [address] MCV (RBC) [Entitic vol] 89.7 fL Normal 80.0-99.0 [facility] ([place]) Comment on above: Order Comment: Routi ne for 0501 the morning of patient admission. Performed By: #### B MP, CBC, ANEU, GFR, ADIFF #### [place] [id number] Platelet 186 10 3/mcL Normal 150-450 [facility] ([place] Comment on above: Order Comment: Routi ne for 0501 the morning of patient admission. Performed By: #### B MP, CBC, ANEU, GFR, ADIFF #### [place] [id number] Platelet mean volume (Bld) [Entitic vol] 8.0 fL Normal 6.6-10.5 [facility] ([place] Comment on above: Order Comment: Routi ne for 0501 the morning of patient admission. Performed By: #### B MP, CBC, ANEU, GFR, ADIFF #### [place] [address] RBC 3.18 10 6/mcL Low 4.10-5.30 [facility] ([place]) Comment on above: Order Comment: Routi ne for 0501 the morning of patient admission. Performed By: #### B MP, CBC, ANEU, GFR, ADIFF #### [place] [id number] WBC 9.5 10 3/mcL Normal 4.5-10.8 [facility] ([place] Comment on above: Order Comment: Routi ne for 0501 the morning of patient admission. Performed By: #### B MP, CBC, ANEU, GFR, ADIFF #### [place] [address] CT THORAX W/ CONTRASTon CT THORAX W/ [...] 02/08/2023 10:26:14 PM Ordering Provider: LIZ [facility] ([place]) LABORATORYOrdered By: Keeley Hester on [...] 02-09-2023 Color (U) Yellow Normal [facility] ([place]) Comment on above: Performed By: #### C BC, MG, ADIFF, BMP, ANEU, GFR, LARON #### [address] [address] Glucose (U) [Mass/Vol] Negative Normal Negative [facility] ([place]) Comment on above: Performed By: #### C BC, MG, ADIFF, BMP, ANEU, GFR, LARON #### [address] [address] Ketones Ql (U) 15 mg/dL Abnormal Neg-Trace [facility] ([place] Comment on above: Performed By: #### C BC, MG, ADIFF, BMP, ANEU, GFR, LARON #### [address] [address] UA Appear Clear Normal Clear [facility] ([place] Comment on above: Performed By: #### C BC, MG, ADIFF, BMP, ANEU, GFR, LARON #### [address] [address] UA Blood Trace Normal Neg-Trace [facility] ([place] Comment on above: Performed By: #### C BC, MG, ADIFF, BMP, ANEU, GFR, LARON #### [place] [address] UA Leuk Est Moderate Abnormal Negative [facility] ([place] Comment on above: Performed By: #### C BC, MG, ADIFF, BMP, ANEU, GFR, LARON #### [place] [address] UA Nitrite Negative Normal Negative [facility] ([place] Comment on above: Performed By: #### C BC, MG, ADIFF, BMP, ANEU, GFR, LARON #### [place] [address] UA pH 7.0 Normal 5.0 - 8.0 [facility] ([place] Comment on above: Performed By: #### C BC, MG, ADIFF, BMP, ANEU, GFR, LARON #### [place] [address] UA Protein Negative Normal Negative [facility] ([place] Comment on above: Performed By: #### C BC, MG, ADIFF, BMP, ANEU, GFR, LARON #### [place] [address] UA Spec Grav 1.025 Normal 1.006-1.029 [facility] ([place]) Comment on above: Performed By: #### C BC, MG, ADIFF, BMP, ANEU, GFR, LARON #### [place] [address] UA Specimen Type Not Given Normal [facility] ([place] Comment on above: Performed By: #### C BC, MG, ADIFF, BMP, ANEU, GFR, LARON #### [place] [address] UA Urobilinogen 1.0 E.U./dL Normal 0.2-1.0 [facility] ([place] Comment on above: Performed By: #### C BC, MG, ADIFF, BMP, ANEU, GFR, LARON #### [place] [address] Urobilinogen (U) [Mass/Vol] Negative Normal Neg-Trace [facility] ([place]) Comment on above: Performed By: #### C BC, MG, ADIFF, BMP, ANEU, GFR, LARON #### [place] [address] UAMICon 02-09-2023 UA Bacteria 1+ /hpf Abnormal Negative [facility] ([place] Comment on above: Performed By: #### C BC, MG, ADIFF, BMP, ANEU, GFR, LARON #### [place] [address] UA RBC 10-20 Abnormal 0-2 [facility] ([place] Comment on above: Performed By: #### C BC, MG, ADIFF, BMP, ANEU, GFR, LARON #### [place] [address] UA Squam Epithelial 5-10 Normal 0-20 [facility] ([place]) Comment on above: Performed By: #### C BC, MG, ADIFF, BMP, ANEU, GFR, LARON #### [place] [address] UA WBC 3-5 Normal 0-5 [facility] ([place] Comment on above: Performed By: #### C BC, MG, ADIFF, BMP, ANEU, GFR, LARON #### [place] [address] Paula 02-08-2023 Ethanol Level <10.0 Normal [facility] ([place]) Comment on above: Performed By: #### A LC #### [place] [address] C-REACTIVE PROTEINon 024 CRP 3.46 mg/dl High 0.00 - 0.90 [facility] Comment on above: Performed By: #### 2 [id number] #### [facility],[address] [place] [address] CBC + DIFFon 02-08-2023 Baso # 0.00 x10EE3/UL Normal 0.00 - 0.10 [facility] Comment on above: Performed By: #### 2 34821 #### [facility],[address] [place] [address] Basophils/100 WBC (Bld) 0.3 % Normal 0.0 - 2.0 [facility] Comment on above: Performed By: #### 2 03271 #### [facility],[address] [place] [address] CBC + DIFF Normal [facility] Comment on above: Result Comment: CBC- COMPLETE BLOOD COUNT Performed By: #### 2 09623 #### [facility],[address] [place] [address] EO # 0.20 x10EE3/UL Normal 0.00 - 0.50 [facility] Comment on above: Performed By: #### 2 53264 #### [facility],[address] [place], [place] [id number] Eosinophils/100 WBC (Bld) 2.5 % Normal 0.0 - 7.0 [facility] Comment on above: Performed By: #### 2 80239 #### [facility],[address] [place] [address] Erythrocyte distribution width (RBC) [Ratio] 14.3 % Normal 12.0 - 15.6 [facility] Comment on above: Performed By: #### 2 22284 #### [facility],[address] [place] [address] Hematocrit (Bld) [Volume fraction] 31.3 % Low 34.0 - 46.0 [facility] Comment on above: Performed By: #### 2 19424 #### [facility],[address] [place], [place] [address] Hemoglobin (Bld) [Mass/Vol] 10.1 g/dL Low 12.0 - 16.0 [facility] Comment on above: Performed By: #### 2 27558 #### [facility],[address] [place] [address] Lymph # 0.80 x10EE3/UL Normal 0.80 - 2.80 [facility] Comment on above: Performed By: #### 2 45442 #### [facility],[address] [place] [address] Lymphocytes/100 WBC (Bld) 9.1 % Low 20.0 - 45.0 [facility] Comment on above: Performed By: #### 2 71456 #### [facility],[address] [place] [address] MANUAL DIFF N/A Normal [facility] Comment on above: Performed By: #### 2 97950 #### [facility],[address] [place] [address] MCH (RBC) [Entitic mass] 30 pg Normal 27 - 33 [facility] Comment on above: Performed By: #### 2 57683 #### [facility],[address] [place] [address] MCHC 32 X10 3 Normal 32 - 36 [facility] Comment on above: Performed By: #### 2 08477 #### [facility],[address] [place], [place] [address] MCV (RBC) [Entitic vol] 91 fL Normal 80 - 99 [facility] Comment on above: Performed By: #### 2 54813 #### [facility],[address] [place] [address] [place] # 0.80 x10EE3/UL Normal 0.20 - 1.00 [facility] Comment on above: Performed By: #### 2 01431 #### [facility],[address],[place] [address] MONOS % 8.9 % Normal 0.0 - 10.0 [facility] Comment on above: Performed By: #### 2 82911 #### [facility],[address] [place] [address] Morphology Andre (Bld) [Interp] N/A Normal [facility] Comment on above: Result Comment: {CD] Performed By: #### 2 62036 #### [facility],[address] [place] [address] Neut # 7.40 x10EE3/UL High 1.50 - 7.10 [facility] Comment on above: Performed By: #### 2 07561 #### [facility],[address] [place] [address] Neutrophils/100 WBC (Bld) 79.2 % High 46.0 - 76.0 [facility] Comment on above: Performed By: #### 2 12691 #### [facility],[address] [place] [address] PLATELET 224 x10EE3/UL Normal 150 - 450 [facility] Comment on above: Performed By: #### 2 72827 #### [facility],[address] [place] [address] Platelet mean volume (Bld) [Entitic vol] 8.2 fL Normal 6.6 - 10.[address] [facility] Comment on above: Result Comment: AUTO MATED DIFFERENTIAL Performed By: #### 2 91554 #### [facility],[address] [place] [address] RBC 3.43 x 10EE6/UL Low 4.10 - 5.30 [facility] Comment on above: Performed By: #### 2 86539 #### [facility],[address] [place] [address] WBC 9.3 x 10EE3/UL Normal 4.5 - 10.8 [facility] Comment on above: Performed By: #### 2 68234 #### [facility],[address] [place] [address] CMP with eGFRon 02-08-2023 AGE 77 years Normal [facility] Comment on above: Performed By: #### 2 84831 #### [facility],[address] [place] [address] Albumin [Mass/Vol] 3.3 g/dL Low 3.4 - 5.0 [facility] Comment on above: Performed By: #### 2 46728 #### [facility],[address] [place] [address] Albumin/Globulin [Mass ratio] 0.8 {ratio} Low 0.9 - 1.6 [facility] Comment on above: Performed By: #### 2 63967 #### [facility],[address] [place] [address] ALK PHOS 85 U/L Normal 46 - 116 [facility] Comment on above: Performed By: #### 2 30856 #### [facility],[address] [place] [address] ALT [Catalytic activity/Vol] 8 U/L Low 14 - 59 [facility] Comment on above: Performed By: #### 2 38826 #### [facility],[address] [place] [address] Anion gap [Moles/Vol] 13 mmol/L Normal 10 - 20 [facility] Comment on above: Performed By: #### 2 30167 #### [facility],[address] [place] [address] AST [Catalytic activity/Vol] 26 U/L Normal 13 - 39 [facility] Comment on above: Performed By: #### 2 72262 #### [facility],[address] [place] [address] B/C RATIO 26 ratio Normal 0 - 30 [facility] Comment on above: Performed By: #### 2 73884 #### [facility],[address] [place] [address] Bilirubin [Mass/Vol] 1.0 mg/dL Normal 0.2 - 1.0 [facility] Comment on above: Performed By: #### 2 64856 #### [facility],[address] [place] [address] Calcium [Mass/Vol] 9.5 mg/dL Normal 8.5 - 10.1 [facility] Comment on above: Performed By: #### 2 79535 #### [facility],[address] [place] [address] Chloride [Moles/Vol] 103 mmol/L Normal 98 - 107 [facility] Comment on above: Performed By: #### 2 24272 #### [facility],[address] [place] [address] CMP with eGFR Normal [facility] Comment on above: Result Comment: COMP REHENSIVE METABOLIC PANEL Performed By: #### 2 56708 #### [facility],[address] [place] [address] CO2 [Moles/Vol] 28.9 mmol/L Normal 21.0 - 32.0 [facility] Comment on above: Performed By: #### 2 96060 #### [facility],[address] [place] [address] Creatinine [Mass/Vol] 1.02 mg/dL Normal 0.55 - 1.02 [facility] Comment on above: Performed By: #### 2 91852 #### [facility],[address] [place] [address] eGFR 53 ML/MINUTE Low 60 - [address] [facility] Comment on above: Performed By: #### 2 14514 #### [facility],[address] [place] [address] GFR/1.73 sq M.predicted among non-blacks MDRD (S/P/Bld) [Vol rate/Area] mL/min/{1.73_m2} Normal 60 - 999 [facility] Comment on above: Result Comment: ACCO RDING TO THE NATIONAL KIDNEY DISEASE EDUCATION PROGRAM(NKDE), A NORMAL eGFR IS A VALUE GREATER THAN OR EQUAL TO 60 ML/MIN/1.73 SQ METERS. CHRONIC KIDNEY DISEASE: <60mL/MIN/1.73 SQ METERS KIDNEY FAILURE: <15mL/MIN/1.73 SQ METERS THIS TEST SHOULD ONLY BE USED FOR PATIENTS 18 YEARS OF AGE AND OLDER. Performed By: #### 2 56816 #### [facility],[address] [place] [address] Globulin (S) [Mass/Vol] 4.1 g/dL High 1.5 - 3.8 [facility] Comment on above: Performed By: #### 2 11390 #### [facility],[address] [place] [address] Glucose [Mass/Vol] 95 mg/dL Normal 74 - 106 [facility] Comment on above: Performed By: #### 2 01308 #### [facility],[address] [place] [address] Potassium [Moles/Vol] 3.8 mmol/L Normal 3.5 - 5.1 [facility] Comment on above: Performed By: #### 2 40102 #### [facility],[address] [place] [address]28 Protein [Mass/Vol] 7.4 g/dL Normal 6.4 - 8.2 [facility] Comment on above: Performed By: #### 2 13023 #### [facility],[address] [place] [address] 42872 Sodium [Moles/Vol] 141 mmol/L Normal 136 - 145 [facility] Comment on above: Performed By: #### 2 31890 #### [facility],[address] [place] [address] 88411 Urea nitrogen [Mass/Vol] 27 mg/dL High 7 - 18 [facility] Comment on above: Performed By: #### 2 57947 #### [facility],[address] [facility] [address] CORONAVIRUS (SARS) ANTIGEN T ESTon 02-08-2023 EXTERNAL QC DONE? YES Normal [facility] Comment on above: Performed By: #### 2 54012 ####[facility],[address] [place] [address],[facility] [address] INTERNAL CONTROL PASS Normal [facility] Comment on above: Performed By: #### 2 29773 ####[facility],[address] [facility],[place] [address] SARS ANTIGEN Negative Normal NORMAL: NEGATIVE [facility] Comment on above: Performed By: #### 2 01773 ####[facility],[address] [place] [address],[facility] [address] SEND TO ? NO Normal [facility] Comment on above: Result Comment: SARS -CoV-2 THIS TEST IS BEING USED UNDER THE FDA EUA PROCEDURE. THIS ASSAY HAS BEEN VALIDATED AT [facility] FOR USE WITH NASAL AND NASOPHARYNGEAL [...] PUBLIC HEALTH AUTHORITIES. Performed By: #### 2 70134 ####[facility],[address] [place] [address] CT BRAIN W/O CONTRASTon 0 CT BRAIN W/O CONTRAST [place] [address] Patient: ROSARIO MCNALLY Phone#: : 1945 Age: 77 Gender: F Pt. Type: ER Account: [id number] Location: [facility] Ordering: GREY CONNOR Exam Date: 02/08/2023/13:38 Family Phys: CHICO COLLIER Charge Code: [id number] Physician: Roberts Order #: [id number] Dose#: 57.50 mGy PROCEDURE: CT BRAIN WITHOUT CONTRAST COMPARISON: [facility], CT, BRAIN W/O CON, 06/10/2022, 21:04. [...] significant mucosal thickening or fluid. ORBITS: Left [place] ocular lenses absent. OTHER: Atherosclerotic calcifications of the intracranial arteries. CONCLUSION: 1. Right occipital subarachnoid hemorrhage. This finding was communicated by telephone to Dr. Grey Connor at the dictation time shown below. 2. Global atrophy and atherosclerosis Dictated by: Adilene Bui MD on 02/08/2023 at 13:50 Approved by: Adilene Bui MD on 02/08/2023 at 13:59 Normal [facility] CT SPINE CERVICAL W/O CONTRA STon 02-08-2023 [...] 02/08/2023 6:55:16 PM Ordering Provider: [facility] [place] LABORATORYOrdered By: SYSTEM SYSTEM on 02-08-2023 Ethanol [Mass/Vol] mg/dL Invalid Interpretation Code AH ADM SS LIPASEon 02-08-2023 Lipase [Catalytic activity/Vol] 20.0 U/L Normal 15.0 - 78.0 [facility] Comment on above: Result Comment: *PLE ASE NOTE THAT RANGES FOR LIPASE HAVE CHANGED OF 02/04/23 DUE TO AN ASSAY UPDATE BY THE INSIDE SALES AGENT.THE NEW ASSAY RANGE IS 6-250 U/L, WITH A REFERENCE RANGE OF 16-77 U/L. Performed By: #### 2 11605 #### [facility],[address] [place] [address] TROPONIN I, HIGH SENSITIVITY on 02-08-2023 HS TROPONIN 13.2 pg/mL Normal 0.0 - 51.4 [facility] Comment on above: Performed By: #### 2 86992 #### [facility],[address] [place] [address] TSHon 02-08-2023 TSH Qn 1.80 m[IU]/L Normal 0.35 - 3.74 [facility] Comment on above: Performed By: #### 2 65036 #### [facility],[address] [place] [address] URINALYSISon 02-08-2023 Amorphous NONE Normal [facility] Comment on above: Performed By: #### 2 26761 ####[facility],[address] [place] [address]503 Bacteria 1+ Normal [facility] Comment on above: Performed By: #### 2 34087 ####[facility],[address] [place] [address]16[address] Bilirubin Ql (U) Negative Normal NORMAL: NEGATIVE [facility] Comment on above: Performed By: #### 2 92061 ####[facility],[address] [place] [address] Casts NONE Normal [facility] Comment on above: Performed By: #### 2 71256 ####[facility],[address] [place] [address] Clarity (U) clear Normal NORMAL: CLEAR [facility] Comment on above: Performed By: #### 2 97245 ####[facility],[address] [place], [place] [address] Color (U) keeley Normal NORMAL: YELLOW [facility] Comment on above: Performed By: #### 2 03472 ####[facility],[address] [place] [address] Crystals LM Nom (Urine sed) NONE Normal [facility] Comment on above: Performed By: #### 2 66158 ####[facility],[address] [place], [place] [address] Epi Cells MODERATE Normal [facility] Comment on above: Performed By: #### 2 42858 ####[facility],[address] [place] [address] Glucose Ql (U) NORM Normal NORMAL: NORMAL [facility] Comment on above: Performed By: #### 2 21428 ####[facility],[address] [place] [address]692 Hemoglobin Ql (U) 50 Abnormal NORMAL: NEGATIVE [facility] Comment on above: Performed By: #### 2 82735 ####[facility],[address] [place] [address] Ketone 5 Abnormal NORMAL: NEGATIVE [facility] Comment on above: Performed By: #### 2 52984 ####[facility],[address] [place] [address]12[address] Leukocytes 25 Abnormal NORMAL: NEGATIVE [facility] Comment on above: Performed By: #### 2 33628 ####[facility],[address] [place] [address] Mucous NONE Normal [facility] Comment on above: Performed By: #### 2 68672 ####[facility],[address] [place] [address] Nitrite Ql (U) Negative Normal NORMAL: NEGATIVE [facility] Comment on above: Performed By: #### 2 77730 ####[facility],[address] [place] [address] pH (U) 6 [pH] Normal NORMAL: 5.0-8.0 [facility] Comment on above: Performed By: #### 2 23245 ####[facility],[address] [place] [address] Protein Ql (U) 15 Abnormal NORMAL: NEGATIVE [facility] Comment on above: Performed By: #### 2 65068 ####[facility],[address] [place] [address] Rbc 0-5 Normal 0-3/hpf [facility] Comment on above: Performed By: #### 2 89807 ####[facility],[address] [place] [address] Sp [place] 1.015 Normal NORMAL: 1.010-1.030 [facility] Comment on above: Performed By: #### 2 91122 ####[facility],[address] [place] [address] Specimen Type UNSPECIFIED Normal [facility] Comment on above: Performed By: #### 2 86576 ####[facility],[address] [place] [address] Urinalysis dipstick W Reflex Microscopic panel (U) SEE BELOW Normal [facility] Comment on above: Result Comment: MICR OSCOPIC Performed By: #### 2 78059 ####[facility],[address] [place] [address] Urobilinog 1 Abnormal NORMAL: NORMAL [facility] Comment on above: Performed By: #### 2 34112 ####[facility],[address] [place], [place] [address] Wbc 1-5 Normal 0-5/hpf [facility] Comment on above: Performed By: #### 2 77903 ####[facility],[address] [place] [address] Yeast NONE Normal [facility] Comment on above: Performed By: #### 2 83456 ####[facility],[address] [place] [address]48 XR CHEST 1 VIEWon 02-08-2023 XR CHEST [...] 02/08/2023 6:53:03 PM Ordering Provider: [facility] [place] HAND RT MIN 3 VIEWSon 2022 HAND RT MIN [address] [address] Patient: ROSARIO MCNALLY Phone#: : 1945 Age: 77 Gender: F Pt. Type: Out Account: [id number] Location: [facility] Ordering: ERIK CHRISTIE Exam Date: 01/26/2023/15:00 Family Phys: Charge Code: [id number] Physician: Roberts Order #: [id number] Dose#: PROCEDURE: X-RAY HAND RT COMPLETE MIN [...] Simon MD on 01/26/2023 at 15:28 Normal [facility] CBC (INCLUDES DIFF/PLT)on Basophils (Bld) [#/Vol] 0.027 10*3/uL Normal 0-200 [facility] Comment on above: Performed By: #### 1 0231, 3437, 4840 #### [facility] [place] [address] Building Services Supervisor: Brayden Enlgand MD Basophils/100 WBC (Bld) 0.4 % Normal [facility] Comment on above: Performed By: #### 1 0231, 06, 0530 #### [facility] [place] [address] Building Services Supervisor: Brayden England MD Eosinophils (Bld) [#/Vol] 0.168 10*3/uL Normal 15-500 [facility] Comment on above: Performed By: #### 1 0231, 8907, 2820 #### [facility] [place] [address] Building Services Supervisor: Brayden England MD Eosinophils/100 WBC (Bld) 2.5 % Normal [facility] Comment on above: Performed By: #### 1 0231, 3308, 3570 #### [facility] [place] [address] Building Services Supervisor: Brayden England MD Erythrocyte distribution width (RBC) [Ratio] 13.2 % Normal 11.0-15.0 [facility] Comment on above: Performed By: #### 1 0231, 63, 7600 #### [facility] of [address], [address] [place] [address] Building Services Supervisor: Brayden England MD Hematocrit (Bld) [Volume fraction] 36.1 % Normal 35.0-45.0 [facility] Comment on above: Performed By: #### 1 0231, 6399, 7600 #### [facility] of [address], [address] [place] [address] Building Services Supervisor: Brayden England MD Hemoglobin (Bld) [Mass/Vol] 11.0 g/dL Low 11.7-15.5 [facility] Comment on above: Performed By: #### 1 0231, 63, 7600 #### [facility] of [address], [address] [place] [address] Building Services Supervisor: Brayden England MD Lymphocytes (Bld) [#/Vol] 1.467 10*3/uL Normal 850-3900 [facility] Comment on above: Performed By: #### 1 0231, 63, 7600 #### [facility] of [address], [address] [place] [address] Building Services Supervisor: Brayden England MD Lymphocytes/100 WBC (Bld) 21.9 % Normal [facility] Comment on above: Performed By: #### 1 0231, 63, 7600 #### [facility] of [place] [address] [employer] Services Supervisor: Brayden England MD MCH (RBC) [Entitic mass] 28.7 pg Normal 27.0-33.0 [facility] Comment on above: Performed By: #### 1 0231, 63, 7600 #### [facility] of [place] [address] [employer] Supervisor: Brayden England MD MCHC (RBC) [Mass/Vol] 30.5 g/dL Low 32.0-36.[address] [facility] Comment on above: Performed By: #### 1 0231, 63, 7600 #### [facility] of [address], [address] [place] [address] Building Services Supervisor: Brayden England MD MCV (RBC) [Entitic vol] 94.3 fL Normal 80.0-100.0 [facility] Comment on above: Performed By: #### 1 0231, 6399, 7600 #### [facility] of [address], [address] [place] [address] Building Services Supervisor: Brayden England MD Monocytes (Bld) [#/Vol] 0.583 10*3/uL Normal 200-950 [facility] Comment on above: Performed By: #### 1 0231, 6399, 7600 #### [facility] of [address], [address] [place] [address] Building Services Supervisor: Brayden England MD Monocytes/100 WBC (Bld) 8.7 % Normal [facility] Comment on above: Performed By: #### 1 0231, 63, 7600 #### [facility] of [place] [address] Building Services Supervisor: Brayden England MD Neutrophils (Bld) [#/Vol] 4.456 10*3/uL Normal 8801-3272 [facility] Comment on above: Performed By: #### 1 0231, 6399, 7600 #### [facility] of [address], [address] [place] [address] Building Services Supervisor: Brayden England MD Neutrophils/100 WBC (Bld) 66.5 % Normal [facility] Comment on above: Performed By: #### 1 0231, 6399, 7600 #### [facility] of [place] [address] Building Services Supervisor: Brayden England MD Platelet mean volume (Bld) [Entitic vol] 10.7 fL Normal 7.5-12.5 [facility] Comment on above: Performed By: #### 1 0231, 6399, 7600 #### [facility] of [place] [address] Building Services Supervisor: Brayden England MD Platelets (Bld) [#/Vol] 252 10*3/uL Normal 140-400 [facility] Comment on above: Performed By: #### 1 0231, 6399, 7600 #### [facility] of [address], [address] [place] [address] Building Services Supervisor: Brayden England MD RBC (Bld) [#/Vol] 3.83 10*6/uL Normal 3.80-5.10 [facility] Comment on above: Performed By: #### 1 0231, 6399, 7600 #### [facility] of [address], [address] [place] [address] Building Services Supervisor: Brayden England MD WBC (Bld) [#/Vol] 6.7 10*3/uL Normal 3.8-10.8 [facility] Comment on above: Performed By: #### 1 0231, 6399, 7600 #### [facility] of [address], [address] [place] [address] Building Services Supervisor: Brayden England MD [facility] 12-28-2022 Albumin [Mass/Vol] 3.9 g/dL Normal 3.6-5.1 [facility] Comment on above: Performed By: #### 1 0231, 6399, 7600 #### [facility] of [address], [address] [place] [address] Building Services Supervisor: Brayden England MD Albumin/Globulin [Mass ratio] 1.3 {ratio} Normal 1.0-2.5 [facility] Comment on above: Performed By: #### 1 0231, 6399, 7600 #### [facility] of [address], [address] [place] [address] Building Services Supervisor: Brayden England MD ALP [Catalytic activity/Vol] 87 U/L Normal 37-153 [facility] Comment on above: Performed By: #### 1 0231, 6399, 7600 #### [facility] of [address], [address] [place] [address] Building Services Supervisor: Brayden England MD ALT [Catalytic activity/Vol] 8 U/L Normal 6-29 [facility] Comment on above: Performed By: #### 1 0231, 6399, 7600 #### [facility] of [address], [address] [place] [address] Building Services Supervisor: Brayden England MD AST [Catalytic activity/Vol] 18 U/L Normal 10-35 [facility] Comment on above: Performed By: #### 1 0231, 63, 7600 #### [facility] of [address], [address] [place] [address] Building Services Supervisor: Brayden England MD Bilirubin [Mass/Vol] 0.5 mg/dL Normal 0.2-1.2 [facility] Comment on above: Performed By: #### 1 023, 63, 7600 #### [facility] of [place] [address] Building Services Supervisor: Brayden England MD BUN/CREATININE RATIO SEE NOTE: Normal 6-22 [facility] Comment on above: Result Comment: Not Reported: BUN and Creatinine are within reference range. Performed By: #### 1 0231, 63, 7600 #### [facility] of [place] [address] Building Services Supervisor: Bryaden England MD Calcium [Mass/Vol] 9.4 mg/dL Normal 8.6-10.4 [facility] Comment on above: Performed By: #### 1 0231, 63, 7600 #### [facility] of [place] [address] Building Services Supervisor: Brayden England MD Chloride [Moles/Vol] 104 mmol/L Normal 98-110 [facility] Comment on above: Performed By: #### 1 0231, 6399, 7600 #### [facility] of [place] [address] Building Services Supervisor: Brayden England MD CO2 [Moles/Vol] 30 mmol/L Normal 20-32 [facility] Comment on above: Performed By: #### 1 0231, 63, 7600 #### [facility] [place] [address] Building Services Supervisor: Brayden England MD Creatinine [Mass/Vol] 0.78 mg/dL Normal 0.60-1.[address] [facility] Comment on above: Performed By: #### 1 0231, 63, 7600 #### [facility] of [address], [address] [place] [address] Building Services Supervisor: Brayden England MD GFR/1.73 sq M.predicted among non-blacks MDRD (S/P/Bld) [Vol rate/Area] 79 mL/min/{1.73_m2} Normal > OR = 60 [facility] Comment on above: Performed By: #### 1 0231, 63, 7600 #### [facility] [place] [address] Building Services Supervisor: Brayden England MD Globulin (S) [Mass/Vol] 3.0 g/dL Normal 1.9-3.7 [facility] Comment on above: Performed By: #### 1 0231, 63, 7600 #### [facility] [place] [address] Building Services Supervisor: Brayden England MD Glucose [Mass/Vol] 88 mg/dL Normal 65-99 [facility] Comment on above: Result Comment: Fasting reference interval Performed By: #### 1 0231, 63, 7600 #### [facility] of [address], [address] [place] [address] Building Services Supervisor: Brayden England MD Potassium [Moles/Vol] 4.5 mmol/L Normal 3.5-5.[address] [facility] Comment on above: Performed By: #### 1 0231, 6399, 7600 #### [facility] of [place] [address] Building Services Supervisor: Brayden England MD Protein [Mass/Vol] 6.9 g/dL Normal 6.1-8.1 [facility] Comment on above: Performed By: #### 1 0231, 6399, 7600 #### [facility] [place] [address] Building Services Supervisor: Brayden England MD Sodium [Moles/Vol] 140 mmol/L Normal 135-146 [facility] Comment on above: Performed By: #### 1 0231, 6399, 7600 #### [facility] [place] [address] Building Services Supervisor: Brayden England MD Urea nitrogen [Mass/Vol] 19 mg/dL Normal 7-25 [facility] Comment on above: Performed By: #### 1 0231, 6399, 7600 #### [facility] [place] [address] Building Services Supervisor: Brayden England MD LIPID PANEL, [facility] 11-2 Cholesterol [Mass/Vol] 155 mg/dL Normal <200 [facility] Comment on above: Performed By: #### 1 0231, 6399, 7600 #### [facility] [place] [address] Building Services Supervisor: Brayden England MD Cholesterol in HDL [Mass/Vol] 51 mg/dL Normal > OR = 50 [facility] Comment on above: Performed By: #### 1 0231, 6399, 7600 #### [facility] [place] [address] Building Services Supervisor: Brayden England MD Cholesterol in LDL [Mass/Vol] [...] LDL-C. Bhaskar WEST et al. QUANG. 2013;310(19): 0618-7365 (http://education.NPS.Q.branch/faq/FLG348) Performed By: #### 1 0231, 6303, 7600 #### [facility] [address], [address] [place] [address] Building Services Supervisor: Brayden England MD Cholesterol.total/Antonietta sterol in HDL [Mass ratio] 3.0 {ratio} Normal <5.0 [facility] Comment on above: Performed By: #### 1 0231, 6399, 7600 #### [facility] [address], [address] [place] [address] Building Services Supervisor: Brayden England MD NON HDL CHOLESTEROL 104 mg/dL (calc) Normal <130 [facility] Comment on above: Result Comment: For patients with diabetes plus 1 major ASCVD risk factor, treating to a non-HDL-C goal of <100 mg/dL (LDL-C of <70 mg/dL) is considered a therapeutic option. Performed By: #### 1 0231, 6399, 7600 #### [facility] [address], [address] [place] [address] Building Services Supervisor: Brayden England MD Triglyceride [Mass/Vol] 91 mg/dL Normal <150 [facility] Comment on above: Performed By: #### 1 0231, 6371, 1810 #### [facility] [address], [address] [place] [address] Building Services Supervisor: Brayden England MD No Panel Informationon 12-27 155 mg/dL Normal [facility] [facility] [employer] [employer] 51 mg/dL Normal [facility] [employer] [facility] 91 mg/dL Normal [facility] [employer] [facility] 85 Normal [facility] [employer] [facility] [employer] 3.0 Normal 1.9 - 3.7 [facility] [facility] [employer] 104 Normal [facility] [facility] [employer] [facility] 88 mg/dL Normal 65 - 99 mg/dL [facility] 19 mg/dL Normal 7 - 25 mg/dL [facility] 0.78 mg/dL Normal 0.60 - 1.00 mg/dL [facility] 79 Normal [facility] [place] [employer] SEE NOTE: Normal 6 - 22 [facility] 140 mmol/L Normal 135 - 146 mmol/L [facility] 4.5 mmol/L Normal 3.5 - 5.3 mmol/L [facility] 104 mmol/L Normal 98 - 110 mmol/L [facility] [place] [facility] 30 mmol/L Normal 20 - 32 mmol/L [facility] 9.4 mg/dL Normal 8.6 - 10.4 mg/dL [facility], [facility] 6.9 g/dL Normal 6.1 - 8.1 g/dL [facility], [facility].; [facility] 3.9 g/dL Normal 3.6 - 5.1 g/dL [facility] [place] [facility] 1.3 Normal 1.0 - 2.5 [facility] 0.5 mg/dL Normal 0.2 - 1.2 mg/dL [facility] [place] [employer] 87 U/L Normal 37 - 153 U/L [facility] [place] [employer] 18 U/L Normal 10 - 35 U/L [facility] [place] [employer] 8 U/L Normal 6 - 29 U/L [facility] [place] [employer] 6.7 Normal 3.8 - 10.8 [facility] [employer] 3.83 {Million/uL} Normal 3.80 - 5.1 0 {Million/uL} [employer] 11.0 g/dL Abnormal 11.7 - 15.5 g/dL [employer] 36.1 % Normal 35.0 - 45.0 % [place] [employer] 94.3 fL Normal 80.0 - 100.0 fL [employer] 28.7 pg Normal 27.0 - 33.0 pg [employer] 30.5 g/dL Abnormal 32.0 - 36.0 g/dL [employer] 13.2 % Normal 11.0 - 15.0 % [employer] 252 Normal 140 - 400 [employer] 10.7 fL Normal 7.5 - 12.5 fL [employer], [employer] 4456 {cells/uL} Normal 1500 - 7800 {cells/uL} [employer], [employer] 1467 {cells/uL} Normal 850 - 3900 {cells/uL} [employer], [employer] 583 {cells/uL} Normal 200 - 950 {cells/uL} [employer], [employer].; [employer] 168 {cells/uL} Normal 15 - 500 {cells/uL} [employer], [employer].; [employer], [employer] 27 {cells/uL} Normal 0 - 200 {cells/uL} [employer], [employer].; [employer], [employer] 66.5 % Normal [employer], [employer].; [employer], [employer] 21.9 % Normal [employer], Inc.; [employer] 8.7 % Normal [employer], [employer].; [employer], [employer] 2.5 % Normal [employer], Inc.; [employer], Inc[employer] 0.4 % Normal [employer], Inc.; [employer], Inc[employer] EMERGENCY REPORTon [address] [facility] EMERGENCY ROOM REPORT NAME ACCOUNT SEX AGE ADMIT DISCHARGE PT MED. RECORD# NUMBER DATE DATE TYPE DALI [id number] F 76 06/10/22 06/10/22 David PALOMARES John [address] ROOM: ER DATE OF : 1945 DICTATING [...] Stew So DO 08/07/22 14:39 JOB #: [id number] Transcribed By: jose 08/07/22 15:10 Electronically signed by: MODESTO So DO 08/16/22 21:25 Page 2 of 2 ROSARIO MCNALLY Emergency Room Report Normal [facility] CT BRAIN W/O CONTRASTon 05-0 CT BRAIN W/O CONTRAST [place] [address] Patient: ROSARIO MCNALLY. Phone#: : 1945 Age: 76 Gender: F Pt. Type: ER Account: [id number] Location: 2 Ordering: DR. MARIA DEL CARMEN BLACKBURN Exam Date: 06/10/2022/21:04 Family Phys: CHICO CARRASCOSRINIVAS Charge Code: [id number] Physician: Roberts Order #: [id number] Dose#: 57.50 PROCEDURE: CT BRAIN WITHOUT CONTRAST COMPARISON: [facility], CT, BRAIN W/O CON, 04/24/2022, 10:47. [...] Simon MD on 06/10/2022 at 22:03 Normal [facility] CT CERVICAL W/O CONTRASTon 0 06-10-2022 CT CERVICAL W/O CONTRAST [place] [address] Patient: ROSARIO MCNALLY Phone#: : 1945 Age: 76 Gender: F Pt. Type: ER Account: [id number] Location: 052 Ordering: DR. MARIA DEL CARMEN BLACKBURN Exam Date: 06/10/2022/21:04 Family Phys: CHICO COLLIER Charge Code: [id number] Physician: Roberts Order #: [id number] Dose#: 7.20 PROCEDURE: CT CERVICAL WITHOUT CONTRAST COMPARISON: [facility], CT, CERVICAL W/O CON, 04/24/2022, 10:47. [...] no evidence of acute fracture or subluxation. [address] [address] Patient: ROSARIO MCNALLY Phone#: : 1945 Age: 76 Gender: F Pt. Type: ER Account: [id number] Location: 05 Ordering: DR. MARIA DEL CARMEN BLACKBURN Exam Date: 06/10/2022/21:04 Family Phys: CHICO COLLIER Charge Code: [id number] Physician: Roberts Order #: [id number] Dose#: 7.20 Dictated by: Elisabeth Simon MD on 06/10/2022 at 22:04 Approved by: Elisabeth Simon MD on 06/10/2022 at 22:08 Normal [facility] 3D MAMM BILAT SCREENon 05-19 3D MAMM BILAT SCREEN [address] [address] Patient: ROSAIRO MCNALLY Phone#: : 1945 Age: 76 Gender: F Pt. Type: Out Account: [id number] Location: [facility] Ordering: CHICO COLLIER Exam Date: 05/19/2022/13:21 Family Phys: Charge Code: [id number] Physician: Roberts Order #: [id number] Dose#: PROCEDURE: BILATERAL SCREENING BREAST TOMOSYNTHESIS MAMMOGRAM WITH CAD COMPARISON: [facility], BILAT SCREENING, 01/25/2020, 13:03. [facility], 3D BILAT SCREEN, 04/08/2021, 14:42. INDICATIONS: [...] Simon MD on 05/19/2022 at 13:43 Normal [facility] CV CAROTID STUDYon 3 CV CAROTID STUDY [place] [address] Patient: ROSARIO MCNALLY Phone#: : 1945 Age: 76 Gender: F Pt. Type: Out Account: [id number] Location: [facility] Ordering: CHICO COLLIER Exam Date: 05/19/2022/12:49 Family Phys: Charge Code: [id number] Physician: Roberts Order #: [id number] Dose#: PROCEDURE: CAROTID FLOW STUDY COMPARISON: None. INDICATIONS: Frequent falls TECHNIQUE: Color duplex Doppler ultrasound and pulsed Doppler analysis were performed to evaluate the cervical carotid arteries and vertebral flow. All measurements for carotid artery narrowing or stenosis were obtained using the ipsilateral distal internal carotid artery as the reference value. FRUIT RAISER: CAMILLE PT HISTORY: Frequent falls RIGHT IMAGING [...] 76 Gender: F Pt. Type: Out Account: [id number] Location: [facility] Ordering: CHICO COLLIER Exam Date: 05/19/2022/12:49 Family Phys: Charge Code: [id number] Physician: Roberts Order #: [id number] Dose#: Mid ICA: 57.39 cm/s Mid ICA [...] cm/s Subclavian Artery: 82.66 cm/s CONCLUSION: 1. Tqbm-sj-qbwgboni irregular mixed plaque is present. 2. There is no evidence of hemodynamically significant stenosis. Dictated by: Elisabeth Simon MD on 05/19/2022 at 13:31 Approved by: Elisabeth Simon MD on 05/19/2022 at 13:33 Normal [facility] EMERGENCY REPORTon [address] [facility] EMERGENCY ROOM REPORT NAME ACCOUNT SEX AGE ADMIT DISCHARGE PT MED. RECORD# NUMBER DATE DATE TYPE DALI [id number] F 76 04/24/22 04/24/22 3 ROSARIO Lopez [address] ROOM: ER DATE OF : 1945 DICTATING [...] Stew So DO 04/26/22 20:17 JOB #: [id number] Transcribed By: am 04/27/22 08:59 Electronically signed by: MODESTO So DO 05/04/22 08:19 Page 1 of 1 ROSARIO MCNALLY Emergency Room Report Normal [facility] EMERGENCY REPORTon [address] [facility] EMERGENCY ROOM REPORT NAME ACCOUNT SEX AGE ADMIT DISCHARGE PT MED. RECORD# NUMBER DATE DATE TYPE DALI [id number] F 76 04/24/22 04/24/22 3 ROSARIO Lopez [id number] ROOM: ER DATE OF : 1945 DICTATING [...] answering questions appropriately, has normal speech, intact eaavtd-vq-tbgm bilaterally. Sensation is intact to bilateral upper [...] Matilde Veronica MD 04/24/22 12:26 JOB #: [id number] Transcribed By: ameena 04/24/22 21:53 Electronically signed by: Dr. Matilde Veronica MD 04/26/22 02:46 Page 2 of 2 DALIROSARIO John Emergency Room Report Normal [facility] CHEST 1 VIEWon 04-24-2022 CHEST 1 VIEW [place] [address] Patient: DALIROSARIO DUMONT. Phone#: : 1945 Age: 76 Gender: F Pt. Type: ER Account: [id number] Location: 2 Ordering: DR. MATILDE VERONICA Exam Date: 04/24/2022/11:09 Family Phys: CHICO CARRASCOSRINIVAS Charge Code: [id number] Physician: Roberts Order #: [id number] Dose#: PROCEDURE: X-RAY CHEST 1 VIEW COMPARISON: [facility], XR, CHEST PA/LAT, 02/20/2016, 12:12. INDICATIONS: [...] Simon MD on 04/24/2022 at 13:31 Normal [facility] CT BRAIN W/O CONTRASTon 03-1 CT BRAIN W/O CONTRAST [address] [address] Patient: ROSARIO MCNALLY Phone#: : 1945 Age: 76 Gender: F Pt. Type: ER Account: [id number] Location: [facility] Ordering: DR. MATILDE VERONICA Exam Date: 04/24/2022/10:47 Family Phys: CHICO COLLIER Charge Code: [id number] Physician: Roberts Order #: [id number] Dose#: PROCEDURE: CT BRAIN WITHOUT CONTRAST COMPARISON: [...] Simon MD on 04/24/2022 at 13:12 Normal [facility] CT CERVICAL W/O CONTRASTon 0 04-24-2022 CT CERVICAL W/O CONTRAST [address] [address] Patient: ROSARIO MCNALLY Phone#: : 1945 Age: 76 Gender: F Pt. Type: ER Account: [id number] Location: 052 Ordering: DR. MATILDE VERONICA Exam Date: 04/24/2022/10:47 Family Phys: CHICO COLLIER Charge Code: [id number] Physician: Roberts Order #: [id number] Dose#: PROCEDURE: CT CERVICAL WITHOUT CONTRAST COMPARISON: [...] no evidence of acute fracture or subluxation. [place] [address] Patient: ROSARIO MCNALLY Phone#: : 1945 Age: 76 Gender: F Pt. Type: ER Account: [id number] Location: 052 Ordering: DR. MATILDE VERONICA Exam Date: 04/24/2022/10:47 Family Phys: CHICO COLLIER Charge Code: [id number] Physician: Roberts Order #: [id number] Dose#: Dictated by: Elisabeth Simon MD on 04/24/2022 at 13:18 Approved by: Elisabeth Simon MD on 04/24/2022 at 13:23 Normal [facility] CT FACIAL BONES W/O CONTRAST on 04-24-2022 CT FACIAL BONES W/O CONTRAST [place] [address] Patient: ROSARIO MCNALLY Phone#: : 1945 Age: 76 Gender: F Pt. Type: ER Account: [id number] Location: [facility] Ordering: DR. MATILDE VERONICA Exam Date: 04/24/2022/10:47 Family Phys: CHICO COLLIER Charge Code: [id number] Physician: Roberts Order #: [id number] Dose#: PROCEDURE: CT FACIAL BONES WITHOUT CONTRAST [...] 76 Gender: F Pt. Type: ER Account: [id number] Location: 052 Ordering: DR. MATILDE VERONICA Exam Date: 04/24/2022/10:47 Family Phys: CHICO COLLIER Charge Code: [id number] Physician: Roberts Order #: [id number] Dose#: Approved by: Elisabeth Simon MD on 04/24/2022 at 13:18 Normal [facility] PELVIS 1 or 2 VIEWSon 2022 PELVIS 1 or 2 VIEWS [place] [address] Patient: ROSARIO MCNALLY Phone#: : 1945 Age: 76 Gender: F Pt. Type: ER Account: [id number] Location: 052 Ordering: DR. MATILDE VERONICA Exam Date: 04/24/2022/11:10 Family Phys: CHICO COLLIER Charge Code: [id number] Physician: Roberts Order #: [id number] Dose#: PROCEDURE: X-RAY PELVIS AP COMPARISON: [facility], XR, PELVIS AP, 09/15/2011, 6:52. INDICATIONS: [...] Simon MD on 04/24/2022 at 13:32 Normal [facility] No Panel Informationon 12-28 140 mg/dL Normal [facility], Inc.; [facility], Inc[facility] 53 mg/dL Normal [facility], Inc.; [facility] 82 mg/dL Normal [facility] [employer] 71 Normal [place] [employer].; [facility] [employer]. 2.6 Normal [place] [employer].; [facility] 87 Normal [place] [employer].; [facility] [employer] [facility] 85 mg/dL Normal 65 - 99 mg/dL [facility], Inc.; [employer], [employer] 18 mg/dL Normal 7 - 25 mg/dL [facility], Inc.; [employer] 0.71 mg/dL Normal 0.60 - 1.00 mg/dL [place] [facility], Inc.; [employer] 89 Normal [place] [employer], Inc.; [place] [employer], [employer] NOT APPLICABLE Normal 6 - 22 [facility], Inc.; [place] [employer] 141 mmol/L Normal 135 - 146 mmol/L [place] [facility], Inc.; [employer] 4.4 mmol/L Normal 3.5 - 5.3 mmol/L [place] [facility], Inc.; [employer] 104 mmol/L Normal 98 - 110 mmol/L [place] [facility], Inc.; [employer] 32 mmol/L Normal 20 - 32 mmol/L [place] [facility], Inc.; [employer] 9.5 mg/dL Normal 8.6 - 10.4 mg/dL [place] [facility], Inc.; [employer] 6.8 g/dL Normal 6.1 - 8.1 g/dL [place] [employer].; [facility] 4.0 g/dL Normal 3.6 - 5.1 g/dL [place] [employer] [facility].; [facility] [employer] 2.8 Normal 1.9 - 3.7 [place] [employer].; [facility] [employer] 1.4 Normal 1.0 - 2.5 [place] [employer].; [employer] 0.6 mg/dL Normal 0.2 - 1.2 mg/dL [facility], Inc.; [place] [employer] [facility], Inc. 167 U/L Abnormal 37 - 153 U/L [facility], Inc.; [facility], Inc. 14 U/L Normal 10 - 35 U/L [facility], Inc.; [facility], Inc. 4 U/L Abnormal 6 - 29 U/L [facility], Inc.; [facility], Inc[facility] 7.5 Normal 3.8 - 10.8 [facility], Inc.; [facility], Inc. 3.51 {Million/uL} Abnormal 3.80 - 5.1 0 {Million/uL} [facility], Inc.; [facility], Inc[facility] 10.4 g/dL Abnormal 11.7 - 15.5 g/dL [facility], Inc.; [place] [employer] [facility], Inc. 32.5 % Abnormal 35.0 - 45.0 % [facility], Inc.; [place] [employer], Inc[facility] 92.6 fL Normal 80.0 - 100.0 fL [facility], Inc.; [facility], Inc[facility] 29.6 pg Normal 27.0 - 33.0 pg [place] [facility], Inc.; [place] [employer] [facility], Inc. 32.0 g/dL Normal 32.0 - 36.0 g/dL [facility], [facility].; [facility], Inc. 13.1 % Normal 11.0 - 15.0 % [place] [employer] [place] [employer], [employer] 254 Normal 140 - 400 [facility], Inc.; [place] [employer], [employer] 10.9 fL Normal 7.5 - 12.5 fL [place] [employer], [employer].; [place] [employer], [employer] 5475 {cells/uL} Normal 1500 - 7800 {cells/uL} [place] [employer], [employer].; [place] [employer], [employer] 1193 {cells/uL} Normal 850 - 3900 {cells/uL} [place] [employer], [employer].; [place] [employer], [employer] 690 {cells/uL} Normal 200 - 950 {cells/uL} [place] [employer], [employer].; [place] [employer], [employer] 90 {cells/uL} Normal 15 - 500 {cells/uL} [place] [employer], Inc.; [employer], [employer] 53 {cells/uL} Normal 0 - 200 {cells/uL} [place] [employer], [employer].; [employer], Inc. 73 % Normal [employer] 15.9 % Normal [place] [employer], [employer].; [employer], Inc. 9.2 % Normal [employer], [employer].; [employer], Inc[employer] 1.2 % Normal [employer].; [employer], [employer]. 0.7 % Normal [employer], [employer].; [employer], [employer]. No Panel Informationon 01-05 146 mg/dL Normal [employer].; [employer], [employer] 56 mg/dL Normal [place] [employer], [employer].; [employer], Inc. 67 mg/dL Normal [employer], [employer].; [employer], Inc. 76 Normal [employer].; [employer], [employer]. 2.6 Normal [employer].; [employer], [employer] 90 Normal [employer], [employer].; [employer], Inc. 92 mg/dL Normal 65 - 99 mg/dL [place] [employer], [employer].; [employer], Inc. 15 mg/dL Normal 7 - 25 mg/dL [facility] [employer], [employer].; [employer], Inc. 0.72 mg/dL Normal 0.60 - 0.93 mg/dL [employer], [employer].; [employer], Inc. 82 Normal [employer].; [employer], [employer]. 96 Normal [employer].; [employer], Inc. NOT APPLICABLE Normal 6 - 22 [facility] [employer].; [employer], [employer]. 138 mmol/L Normal 135 - 146 mmol/L [place] [employer], Inc.; [employer], Inc. 4.3 mmol/L Normal 3.5 - 5.3 mmol/L [place] [employer], [employer].; [employer], Inc. 102 mmol/L Normal 98 - 110 mmol/L [place] [employer], [employer].; [employer], Inc. 29 mmol/L Normal 20 - 32 mmol/L [employer], [employer].; [facility], Inc[facility] 9.5 mg/dL Normal 8.6 - 10.4 mg/dL [facility], Inc.; [facility] Inc[facility] 7.2 g/dL Normal 6.1 - 8.1 g/dL [facility], Inc.; [facility] Inc[facility] 3.8 g/dL Normal 3.6 - 5.1 g/dL [facility], Inc.; [facility] Inc[facility] 3.4 Normal 1.9 - 3.7 [facility], Inc.; [facility], Inc[facility] 1.1 Normal 1.0 - 2.5 [facility], Inc.; [facility], Inc. 0.6 mg/dL Normal 0.2 - 1.2 mg/dL [facility], Inc.; [facility] [employer] [facility] [employer] 80 U/L Normal 37 - 153 U/L [facility], Inc.; [facility], Inc. 15 U/L Normal 10 - 35 U/L [facility], Inc.; [facility] [employer] [facility], [employer] 7 U/L Normal 6 - 29 U/L [facility], Inc.; [facility] 8.8 Normal 3.8 - 10.8 [facility], Inc.; [facility] [employer] [facility] [employer] 3.91 {Million/uL} Normal 3.80 - 5.1 0 {Million/uL} [facility], [employer].; [facility] [employer] [facility] [employer] 11.3 g/dL Abnormal 11.7 - 15.5 g/dL [facility], Inc.; [facility] [employer] [employer] 34.9 % Abnormal 35.0 - 45.0 % [place] [facility], Inc.; [facility] 89.3 fL Normal 80.0 - 100.0 fL [facility] [employer] [facility], [employer].; [facility] [employer] [facility] 28.9 pg Normal 27.0 - 33.0 pg [facility], [employer].; [facility] [employer] [facility] 32.4 g/dL Normal 32.0 - 36.0 g/dL [facility], Inc.; [facility] [employer], [employer] 13.0 % Normal 11.0 - 15.0 % [facility].; [employer], [employer]. 314 Normal 140 - 400 [employer], [employer].; [employer], [employer] 10.5 fL Normal 7.5 - 12.5 fL [employer], [employer].; [employer], Inc. 6160 {cells/uL} Normal 1500 - 7800 {cells/uL} [employer], [employer].; [employer], [employer] 1857 {cells/uL} Normal 850 - 3900 {cells/uL} [employer], [employer].; [employer], [employer] 686 {cells/uL} Normal 200 - 950 {cells/uL} [employer], [employer].; [employer], [employer] 53 {cells/uL} Normal 15 - 500 {cells/uL} [employer], [employer].; [employer], Inc. 44 {cells/uL} Normal 0 - 200 {cells/uL} [employer], [employer].; [employer], [employer]. 70 % Normal [employer], [employer].; [employer], [employer] 21.1 % Normal [employer], [employer].; [employer], [employer]. 7.8 % Normal [employer], Inc.; [employer], [employer]. 0.6 % Normal [employer], [employer].; [employer], Inc. 0.5 % Normal [employer], Inc.; [employer], [employer] 2.63 {mIU/L} Normal 0.40 - 4.50 {mIU/L} [employer], [employer].; [employer], Inc. No Panel Informationon 07-28 SEE NOTE Normal [employer], Inc.; [employer], [employer]. BIOPSY Normal [employer], Inc.; [employer], Inc. No Panel Informationon 12-23 168 mg/dL Normal [employer], Inc.; [employer], [employer] 59 mg/dL Normal [employer], [employer].; [employer], [employer] 89 mg/dL Normal [employer], [employer].; [employer], [employer] 91 Normal [employer], [employer].; [employer], [employer] 2.8 Normal 1.9 - 3.7 [employer], Inc.; [facility] 109 Normal [facility], Inc.; [facility] [employer] [facility] [employer] 92 mg/dL Normal 65 - 99 mg/dL [facility], Inc.; [facility] [employer] [facility], [employer] 20 mg/dL Normal 7 - 25 mg/dL [facility], Inc.; [facility] [employer] [facility], [employer] 0.82 mg/dL Normal 0.60 - 0.93 mg/dL [facility], Inc.; [facility], Inc[facility] 71 Normal [facility], Inc.; [facility] [employer] [facility] [employer] 82 Normal [facility], Inc.; [place] [facility], Inc. NOT APPLICABLE Normal 6 - 22 [facility], Inc.; [facility] [employer] [facility] 140 mmol/L Normal 135 - 146 mmol/L [facility], Inc.; [facility] [employer] 4.2 mmol/L Normal 3.5 - 5.3 mmol/L [facility], Inc.; [facility] [employer] [facility] 102 mmol/L Normal 98 - 110 mmol/L [facility], Inc.; [place] [facility], Inc. 31 mmol/L Normal 20 - 32 mmol/L [facility], Inc.; [facility] [employer] [facility] 10.0 mg/dL Normal 8.6 - 10.4 mg/dL [facility], Inc.; [facility] [employer] [facility] 7.2 g/dL Normal 6.1 - 8.1 g/dL [facility], Inc.; [facility] [employer] [facility] 4.4 g/dL Normal 3.6 - 5.1 g/dL [facility], Inc.; [facility] [employer] [facility] 1.6 Normal 1.0 - 2.5 [facility], Inc.; [facility] [employer] [facility] 0.8 mg/dL Normal 0.2 - 1.2 mg/dL [facility], Inc.; [place] [employer], [employer] 80 U/L Normal 37 - 153 U/L [facility], Inc.; [facility] [employer] [facility], [employer] 17 U/L Normal 10 - 35 U/L [facility], Inc.; [place] [employer], Inc[employer] 6 U/L Normal 6 - 29 U/L [facility], Inc.; [facility] 9.5 Normal 3.8 - 10.8 [employer].; [employer], [employer] 4.08 {Million/uL} Normal 3.80 - 5.1 0 {Million/uL} [employer], Inc.; [employer], [employer] 12.4 g/dL Normal 11.7 - 15.5 g/dL [employer], Inc[employer] 37.1 % Normal 35.0 - 45.0 % [employer].; [employer], [employer] 90.9 fL Normal 80.0 - 100.0 fL [employer], [employer].; [employer], [employer] 30.4 pg Normal 27.0 - 33.0 pg [employer], [employer].; [employer], [employer] 33.4 g/dL Normal 32.0 - 36.0 g/dL [employer], [employer].; [employer], [employer] 12.7 % Normal 11.0 - 15.0 % [employer], [employer]. 288 Normal 140 - 400 [employer], [employer].; [employer], [employer] 10.7 fL Normal 7.5 - 12.5 fL [employer], [employer].; [employer], [employer]. 6698 {cells/uL} Normal 1500 - 7800 {cells/uL} [employer], [employer].; [employer], [employer] 1900 {cells/uL} Normal 850 - 3900 {cells/uL} [employer], [employer].; [employer], [employer] 684 {cells/uL} Normal 200 - 950 {cells/uL} [employer], [employer].; [employer], [employer] 152 {cells/uL} Normal 15 - 500 {cells/uL} [employer], [employer].; [employer], [employer] 67 {cells/uL} Normal 0 - 200 {cells/uL} [employer], [employer].; [employer], [employer] 70.5 % Normal [employer], [employer].; [employer], [employer] 20.0 % Normal [employer], Inc.; [employer], [employer] 7.2 % Normal [employer], [employer].; [employer], [employer]. 1.6 % Normal [facility].; [place] [employer]. 0.7 % Normal [place] [facility].; [place] [employer]. Laboratory - Chemistry and C hemistry - challengeon 12-22-2018 Albumin [Mass/Vol] 4.4 g/dL Normal 3.6 - 5.1 g/dL [facility].; [place] [employer], [employer]. Albumin/Globulin [Mass ratio] 1.6 {ratio} Normal 1.0 - 2.5 [facility].; [place] [employer]. ALP [Catalytic activity/Vol] 79 U/L Normal 33 - 130 U/L [facility].; [place] [employer]. ALT [Catalytic activity/Vol] 4 U/L Abnormal 6 - 29 U/L [facility].; [place] [employer], [employer]. AST [Catalytic activity/Vol] 15 U/L Normal 10 - 35 U/L [facility].; [employer]. Bilirubin [Mass/Vol] 0.8 mg/dL Normal 0.2 - 1 .2 mg/dL [place] [facility].; [employer], [employer]. Calcium [Mass/Vol] 9.8 mg/dL Normal 8.6 - 10. 4 mg/dL [place] [facility].; [place] [employer], [employer]. Chloride [Moles/Vol] 103 mmol/L Normal 98 - 11 0 mmol/L [facility].; [place] [employer]. Cholesterol [Mass/Vol] 160 mg/dL [facility].; [place] [employer]. Cholesterol in HDL [Mass/Vol] 62 mg/dL Normal [place] [employer] [facility].; [place] [employer], [employer]. Cholesterol in LDL [Mass/Vol] 82 mg/dL Normal 0 - 100 mg/dL [place] [facility].; [place] [employer]. Cholesterol non HDL [Mass/Vol] 98 mg/dL Normal [facility], [facility].; [place] [employer], [employer]. Cholesterol.total/Antonietta sterol in HDL [Mass ratio] 2.6 {ratio} Normal [place] [employer].; [facility] CO2 [Moles/Vol] 32 mmol/L Normal 20 - 32 mmol/L [place] [facility].; [employer]. Creatinine [Mass/Vol] 0.74 mg/dL Normal 0.60 - 0.93 mg/dL [place] [employer], [facility].; [employer], [employer]. GFR/1.73 sq M.predicted among blacks MDRD (S/P/Bld) [Vol rate/Area] 94 {ML/MIN/1.73M2} Normal [place] [facility].; [employer] GFR/1.73 sq M.predicted MDRD (S/P/Bld) [Vol rate/Area] 81 {ML/MIN/1.73M2} Normal [place] [employer].; [employer], [employer]. Globulin (S) [Mass/Vol] 2.8 g/dL Normal 1.9 - 3.7 g/dL [place] [facility].; [employer], [employer]. Glucose [Mass/Vol] 94 mg/dL Normal 65 - 99 mg/dL [place] [facility].; [employer], [employer]. Potassium [Moles/Vol] 4.0 mmol/L Normal 3.5 - 5.3 mmol/L [place] [employer].; [employer], [employer]. Protein [Mass/Vol] 7.2 g/dL Normal 6.1 - 8.1 g/dL [place] [employer], [employer].; [employer], [employer]. Sodium [Moles/Vol] 141 mmol/L Normal 135 - 146 mmol/L [place] [employer].; [employer], [employer]. Triglyceride [Mass/Vol] 77 mg/dL Normal [facility].; [employer], [employer]. Urea nitrogen [Mass/Vol] 15 mg/dL Normal 7 - 25 mg/dL [place] [employer].; [employer], [employer]. Urea nitrogen/Creatinine [Mass ratio] 19.7 mg/mg Normal 6 - 22 [place] [employer].; [employer], [employer]. Laboratory - Hematology and Cell countson 12-22-2018 Basophils (Bld) [#/Vol] 60 {Cells}/uL Normal 0 - 200 {Cells}/uL [place] [employer].; [facility] Basophils/100 WBC (Bld) 0.7 % Normal 0 - 1 % [facility].; [facility], [facility]. Eosinophils (Bld) [#/Vol] 140 {Cells}/uL Normal 15 - 500 {Cells}/uL [facility], [facility].; [place] [employer], [facility]. Eosinophils/100 WBC (Bld) 1.7 % Normal 0 - 4 % [facility], [facility].; [place] [facility], [facility]. Erythrocyte distribution width (RBC) [Ratio] 12.9 % Normal 11.0 - 15.0 % [facility].; [place] [facility], [facility]. Hematocrit (Bld) [Volume fraction] 37.8 % Normal 35.0 - 45.0 % [facility], [facility].; [place] [facility], [facility]. Hemoglobin (Bld) [Mass/Vol] 12.3 g/dL Normal 11.7 - 15.5 g/dL [facility], [facility].; [place] [facility], [facility]. Lymphocytes (Bld) [#/Vol] 2040 {Cells}/uL Normal 850 - 3900 {Cells}/uL [facility].; [place] [employer], [employer]. Lymphocytes/100 WBC (Bld) 25.0 % Normal 12 - 47 % [place] [facility].; [place] [employer], [facility]. MCH (RBC) [Entitic mass] 30.1 pg Normal 27.0 - 33.0 PG [place] [employer], [facility].; [place] [employer], [facility]. MCHC (RBC) [Mass/Vol] 32.5 g/dL Normal 32.0 - 36.0 g/dL [facility], [facility].; [place] [employer] MCV (RBC) [Entitic vol] 92.6 fL Normal 80.0 - 100.0 fL [place] [facility], [facility].; [place] [employer], [facility]. Monocytes (Bld) [#/Vol] 630 {Cells}/uL Normal 20 0 - 950 {Cells}/uL [place] [employer], [facility].; [place] [employer] Monocytes/100 WBC (Bld) 7.7 % Normal 4 - 12 % [facility].; [place] [employer], [employer] Neutrophils (Bld) [#/Vol] 5260 {Cells}/uL Normal 1500 - 7800 {Cells}/uL [facility].; [place] [employer]. Neutrophils/100 WBC (Bld) 64.9 % Normal 40 - 75 % [facility].; [place] [employer], [employer]. Platelet mean volume (Bld) [Entitic vol] 10.7 fL Normal 7.5 - 12.5 fL [facility], [facility].; [place] [employer], [facility]. Platelets (Bld) [#/Vol] 264 10*3/uL Normal 140 - 400 10*3/uL [facility].; [place] [employer], [employer]. RBC (Bld) [#/Vol] 4.08 10*6/uL Normal 3.80 - 5.1 0 10*6/uL [facility], [facility].; [place] [employer], [employer]. WBC (Bld) [#/Vol] 8.2 10*3/uL Normal 3.8 - 10.8 10*3/uL [place] [employer], [employer].; [employer], [employer]. Laboratory - Chemistry and C hemistry - challengeon 12-14-2017 Calcium [Mass/Vol] 10.0 mg/dL Normal 8.6 - 10. 4 mg/dL [facility], [facility].; [place] [employer], [employer]. Chloride [Moles/Vol] 104 mmol/L Normal 98 - 11 0 mmol/L [facility], [facility].; [place] [employer] Cholesterol [Mass/Vol] 151 mg/dL Normal [facility], [facility].; [place] [employer] Cholesterol in HDL [Mass/Vol] 62 mg/dL Normal [facility], [facility].; [place] [employer] Cholesterol in LDL [Mass/Vol] 75 mg/dL Normal 0 - 100 mg/dL [facility], [facility].; [place] [employer], [employer]. Cholesterol non HDL [Mass/Vol] 89 mg/dL Normal [facility], [facility].; [place] [facility], [facility] Cholesterol.total/[place]iet[place] sterol in HDL [Mass ratio] 2.4 {ratio} Normal [facility] [employer], [facility].; [place] [employer] CO2 [Moles/Vol] 30 mmol/L Normal 20 - 32 mmol/L [facility].; [place] [employer], [employer]. Creatinine [Mass/Vol] 0.75 mg/dL Normal 0.60 - 0.93 mg/dL [facility].; [place] [employer], [facility]. GFR/1.73 sq M.predicted among blacks MDRD (S/P/Bld) [Vol rate/Area] 93 {ML/MIN/1.73M2} Normal [facility], [facility].; [place] [facility], [facility]. GFR/1.73 sq M.predicted MDRD (S/P/Bld) [Vol rate/Area] 80 {ML/MIN/1.73M2} Normal [place] [facility].; [place] [employer], [employer]. Glucose [Mass/Vol] 92 mg/dL Normal 65 - 99 mg/dL [facility].; [place] [employer], [employer]. Potassium [Moles/Vol] 4.3 mmol/L Normal 3.5 - 5.3 mmol/L [facility].; [place] [employer], [employer]. Sodium [Moles/Vol] 141 mmol/L Normal 135 - 146 mmol/L [place] [facility].; [employer], [employer]. Triglyceride [Mass/Vol] 62 mg/dL Normal H [facility].; [place] [employer]. TSH Qn 2.12 m[IU]/L Normal 0.40 - 4.50 {mIU/L} [place] [facility].; [employer], [employer]. Urea nitrogen [Mass/Vol] 16 mg/dL Normal 7 - 25 mg/dL [place] [facility].; [employer], [employer]. Urea nitrogen/Creatinine [Mass ratio] 21.9 mg/mg Normal 6 - 22 [place] [facility].; [employer]. Laboratory - Hematology and Cell countson 12-14-2017 Basophils (Bld) [#/Vol] 40 {Cells}/uL Normal 0 - 200 {Cells}/uL [place] [employer].; [employer], [employer]. Basophils/100 WBC (Bld) 1 % Normal 0 - 1 % H [facility].; [place] [employer], [employer]. Eosinophils (Bld) [#/Vol] 210 {Cells}/uL Normal 15 - 500 {Cells}/uL [facility].; [facility], [facility]. Eosinophils/100 WBC (Bld) 3 % Normal 0 - 4 % [facility].; [facility], [facility]. Erythrocyte distribution width (RBC) [Ratio] 14.3 % Normal 11.0 - 15.0 % [facility], [facility].; [facility], [facility]. Hematocrit (Bld) [Volume fraction] 36.0 % Normal 35.0 - 45.0 % [facility], [facility].; [facility], [facility]. Hemoglobin (Bld) [Mass/Vol] 11.9 g/dL Normal 11.7 - 15.5 g/dL [facility], [facility].; [facility], [facility]. Lymphocytes (Bld) [#/Vol] 1890 {Cells}/uL Normal 850 - 3900 {Cells}/uL [facility], [facility].; [place] [employer], [facility]. Lymphocytes/100 WBC (Bld) 27 % Normal 12 - 47 % [facility].; [place] [employer], [facility]. MCH (RBC) [Entitic mass] 30.2 pg Normal 27.0 - 33.0 PG [facility].; [place] [employer], [facility]. MCHC (RBC) [Mass/Vol] 32.9 g/dL Normal 32.0 - 36.0 g/dL [facility], [facility].; [place] [employer], [facility]. MCV (RBC) [Entitic vol] 91.6 fL Normal 80.0 - 100.0 fL [facility], [facility].; [place] [facility], [facility]. Monocytes (Bld) [#/Vol] 610 {Cells}/uL Normal 20 0 - 950 {Cells}/uL [facility].; [place] [employer] Monocytes/100 WBC (Bld) 9 % Normal 4 - 12 % [facility].; [facility], [facility]. Neutrophils (Bld) [#/Vol] 4250 {Cells}/uL Normal 1500 - 7800 {Cells}/uL [facility], [facility].; [place] [employer] Neutrophils/100 WBC (Bld) 61 % Normal 40 - 75 % [facility].; [place] [employer], [facility]. Platelet mean volume (Bld) [Entitic vol] 8.9 fL Normal 7.5 - 12.5 fL [facility].; [facility] Platelets (Bld) [#/Vol] 241 10*3/uL Normal 140 - 400 10*3/uL [facility].; [facility], [facility]. RBC (Bld) [#/Vol] 3.93 10*6/uL Normal 3.80 - 5.1 0 10*6/uL [facility].; [facility], [facility]. WBC (Bld) [#/Vol] 7.0 10*3/uL Normal 3.8 - 10.8 10*3/uL [facility].; [facility], [facility] Laboratory - Cytologyon 08-08 Microscopic observation Cyto stain Nom (Cvx) Normal [facility].; [facility], [facility] Laboratory - Chemistry and C hemistry - challengeon 12-22-2016 Hemoglobin.gastrointest inal Ql (Stl) Negative Normal [facility].; [place] [employer] Laboratory - Chemistry and C hemistry - challengeon 12-13-2016 Calcium [Mass/Vol] 9.7 mg/dL Normal 8.6 - 10. 4 mg/dL [facility].; [place] [employer], [facility]. Chloride [Moles/Vol] 103 mmol/L Normal 98 - 11 0 mmol/L [facility], [facility].; [facility] [employer], [facility]. Cholesterol [Mass/Vol] 172 mg/dL Normal [facility].; [facility] [employer], [facility] Cholesterol in HDL [Mass/Vol] 58 mg/dL Normal [facility].; [place] [employer], [facility]. Cholesterol in LDL [Mass/Vol] 95 mg/dL Normal 0 - 100 mg/dL [facility].; [place] [employer], [facility]. Cholesterol non HDL [Mass/Vol] 113 mg/dL Normal [facility], [facility].; [place] [employer], [facility]. Cholesterol.total/[place] sterol in HDL [Mass ratio] 3.0 {ratio} Normal [facility].; [place] [employer] CO2 [Moles/Vol] 33 mmol/L Abnormal 20 - 31 mmol/L [facility].; [facility]. Creatinine [Mass/Vol] 0.75 mg/dL Normal 0.60 - 0.93 mg/dL [facility].; [facility], [facility]. GFR/1.73 sq M.predicted among blacks MDRD (S/P/Bld) [Vol rate/Area] 94 {ML/MIN/1.73M2} Normal [facility].; [facility], [facility]. GFR/1.73 sq M.predicted MDRD (S/P/Bld) [Vol rate/Area] 81 {ML/MIN/1.73M2} Normal [facility].; [place] [facility], [facility] Glucose [Mass/Vol] 95 mg/dL Normal 65 - 99 mg/dL [facility], [facility].; [place] [facility], [facility]. Potassium [Moles/Vol] 4.3 mmol/L Normal 3.5 - 5.3 mmol/L [facility].; [place] [employer], [facility]. Sodium [Moles/Vol] 142 mmol/L Normal 135 - 146 mmol/L [facility], [facility].; [place] [employer], [employer]. Triglyceride [Mass/Vol] 93 mg/dL Normal [facility].; [place] [facility], [facility]. TSH Qn 3.16 m[IU]/L Normal 0.40 - 4.50 {mIU/L} [facility], [facility].; [place] [employer], [facility]. Urea nitrogen [Mass/Vol] 12 mg/dL Normal 7 - 25 mg/dL [facility].; [place] [employer], [facility]. Urea nitrogen/Creatinine [Mass ratio] 16.1 mg/mg Normal 6 - 22 [facility].; [place] [employer], [employer]. Laboratory - Hematology and Cell countson 12-13-2016 Basophils (Bld) [#/Vol] 10 {Cells}/uL Normal 0 - 200 {Cells}/uL [facility].; [place] [employer], [employer]. Basophils/100 WBC (Bld) 0 % Normal 0 - 1 % [facility].; [place] [employer], [employer]. Eosinophils (Bld) [#/Vol] 210 {Cells}/uL Normal 15 - 500 {Cells}/uL [facility] [employer].; [employer]. Eosinophils/100 WBC (Bld) 3 % Normal 0 - 4 % [place] [employer].; [place] [employer], [employer]. Erythrocyte distribution width (RBC) [Ratio] 13.4 % Normal 11.0 - 15.0 % [facility] [employer], [employer]. Hematocrit (Bld) [Volume fraction] 38.0 % Normal 35.0 - 45.0 % [place] [facility].; [place] [employer], [employer]. Hemoglobin (Bld) [Mass/Vol] 12.2 g/dL Normal 11.7 - 15.5 g/dL [place] [employer].; [place] [employer], [facility]. Lymphocytes (Bld) [#/Vol] 1830 {Cells}/uL Normal 850 - 3900 {Cells}/uL [place] [employer], [employer].; [employer], [employer]. Lymphocytes/100 WBC (Bld) 27 % Normal 12 - 47 % [place] [employer].; [employer], [employer]. MCH (RBC) [Entitic mass] 29.5 pg Normal 27.0 - 33.0 PG [place] [employer].; [employer], [employer]. MCHC (RBC) [Mass/Vol] 32.3 g/dL Normal 32.0 - 36.0 g/dL [place] [employer].; [employer] MCV (RBC) [Entitic vol] 91.3 fL Normal 80.0 - 100.0 fL [place] [employer].; [employer], [employer]. Monocytes (Bld) [#/Vol] 310 {Cells}/uL Normal 20 0 - 950 {Cells}/uL [place] [employer].; [employer], [employer]. Monocytes/100 WBC (Bld) 5 % Normal 4 - 12 % [facility].; [place] [employer], [facility]. Neutrophils (Bld) [#/Vol] 4310 {Cells}/uL Normal 1500 - 7800 {Cells}/uL [place] [employer], [employer].; [employer] Neutrophils/100 WBC (Bld) 65 % Normal 40 - 75 % [place] [employer].; [employer], [employer]. Platelet mean volume (Bld) [Entitic vol] 8.8 fL Normal 7.5 - 12.5 fL [place] [employer].; [place] [employer], [employer]. Platelets (Bld) [#/Vol] 246 10*3/uL Normal 140 - 400 10*3/uL [place] [employer], [employer]. RBC (Bld) [#/Vol] 4.16 10*6/uL Normal 3.80 - 5.1 0 10*6/uL [place] [employer] WBC (Bld) [#/Vol] 6.7 10*3/uL Normal 3.8 - 10.8 10*3/uL [employer], [employer].; [employer], [employer]. Laboratory - Chemistry and C hemistry - challengeon 12-22-2015 Hemoglobin.gastrointest inal Ql (Stl) Negative Normal [place] [employer].; [employer], [employer]. Laboratory - Chemistry and C hemistry - challengeon 12-03-2015 Calcium [Mass/Vol] 9.9 mg/dL Normal 8.6 - 10. 4 mg/dL [place] [employer], [employer].; [employer], [employer]. Chloride [Moles/Vol] 104 mmol/L Normal 98 - 11 0 mmol/L [place] [facility].; [employer], [employer]. Cholesterol [Mass/Vol] 156 mg/dL Normal 125 - 200 mg/dL [place] [employer], [facility].; [employer], [employer]. Cholesterol in HDL [Mass/Vol] 50 mg/dL Normal [employer], [facility].; [employer], [employer]. Cholesterol in LDL [Mass/Vol] 88 mg/dL Normal [employer], [facility].; [employer], [employer]. Cholesterol non HDL [Mass/Vol] 106 mg/dL Normal [employer].; [employer], [employer]. Cholesterol.total/[place] sterol in HDL [Mass ratio] 3.1 {ratio} Normal [employer].; [employer] CO2 [Moles/Vol] 30 mmol/L Normal 20 - 31 mmol/L [place] [employer].; [employer], [employer]. Creatinine [Mass/Vol] 0.77 mg/dL Normal 0.50 - 0.99 mg/dL [facility], [facility].; [place] [employer], [facility]. GFR/1.73 sq M.predicted among blacks MDRD (S/P/Bld) [Vol rate/Area] 92 {ML/MIN/1.73M2} Normal [facility], [facility].; [place] [employer], [facility]. GFR/1.73 sq M.predicted MDRD (S/P/Bld) [Vol rate/Area] 79 {ML/MIN/1.73M2} Normal [place] [facility].; [place] [employer], [facility]. Glucose [Mass/Vol] 95 mg/dL Normal 65 - 99 mg/dL [facility].; [place] [employer], [facility]. Potassium [Moles/Vol] 3.9 mmol/L Normal 3.5 - 5.3 mmol/L [facility], [facility].; [place] [employer], [employer]. Sodium [Moles/Vol] 141 mmol/L Normal 135 - 146 mmol/L [place] [facility].; [employer], [employer]. Triglyceride [Mass/Vol] 92 mg/dL Normal [facility].; [employer], [employer]. Urea nitrogen [Mass/Vol] 12 mg/dL Normal 7 - 25 mg/dL [place] [facility] [facility].; [employer], [employer]. Urea nitrogen/Creatinine [Mass ratio] 16.1 mg/mg Normal 6 - 22 [place] [employer].; [employer], [employer]. Laboratory - Hematology and Cell countson 12-03-2015 Basophils (Bld) [#/Vol] 40 {Cells}/uL Normal 0 - 200 {Cells}/uL [place] [employer].; [employer], [employer]. Basophils/100 WBC (Bld) 1 % Normal 0 - 1 % [facility].; [place] [employer], [employer]. Eosinophils (Bld) [#/Vol] 240 {Cells}/uL Normal 15 - 500 {Cells}/uL [place] [facility].; [employer], [employer]. Eosinophils/100 WBC (Bld) 4 % Normal 0 - 4 % [place] [employer].; [employer], [employer]. Erythrocyte distribution width (RBC) [Ratio] 14.0 % Normal 11.0 - 15.0 % [facility], [facility].; [facility], [facility]. Hematocrit (Bld) [Volume fraction] 36.0 % Normal 35.0 - 45.0 % [facility], [facility].; [facility], [facility] Hemoglobin (Bld) [Mass/Vol] 11.9 g/dL Normal 11.7 - 15.5 g/dL [facility], [facility].; [facility], [facility] Lymphocytes (Bld) [#/Vol] 2020 {Cells}/uL Normal 850 - 3900 {Cells}/uL [facility].; [facility], [facility]. Lymphocytes/100 WBC (Bld) 36 % Normal 12 - 47 % [facility].; [place] [facility], [facility]. MCH (RBC) [Entitic mass] 29.2 pg Normal 27.0 - 33.0 PG [facility], [facility].; [place] [employer], [facility] [facility] MCHC (RBC) [Mass/Vol] 33.1 g/dL Normal 32.0 - 36.0 g/dL [facility], [facility].; [place] [employer], [facility]. MCV (RBC) [Entitic vol] 88.2 fL Normal 80.0 - 100.0 fL [facility].; [place] [employer], [facility]. Monocytes (Bld) [#/Vol] 360 {Cells}/uL Normal 20 0 - 950 {Cells}/uL [facility], [facility].; [place] [employer], [facility]. Monocytes/100 WBC (Bld) 6 % Normal 4 - 12 % [facility].; [facility], [facility]. Neutrophils (Bld) [#/Vol] 3010 {Cells}/uL Normal 1500 - 7800 {Cells}/uL [facility].; [place] [employer], [facility]. Neutrophils/100 WBC (Bld) 53 % Normal 40 - 75 % [facility].; [place] [facility], [facility]. Platelet mean volume (Bld) [Entitic vol] 9.2 fL Normal 7.5 - 11.5 fL [facility], [facility].; [place] [employer], [facility]. Platelets (Bld) [#/Vol] 239 10*3/uL Normal 140 - 400 10*3/uL [facility].; [facility], [facility]. RBC (Bld) [#/Vol] 4.09 10*6/uL Normal 3.80 - 5.1 0 10*6/uL [facility], [facility].; [facility], Inc[employer] WBC (Bld) [#/Vol] 5.7 10*3/uL Normal 3.8 - 10.8 10*3/uL [facility], [facility].; [facility], [facility]. Laboratory - Chemistry and C hemistry - challengeon 11-28-2014 Hemoglobin.gastrointest inal Ql (Stl) Negative Normal [facility], [facility].; [place] [facility], [facility]. Laboratory - Chemistry and C hemistry - challengeon 11-21-2014 Albumin [Mass/Vol] 4.4 g/dL Normal 3.6 - 5.1 g/dL [facility], [facility].; [place] [facility], [facility]. Albumin/Globulin [Mass ratio] 1.3 {ratio} Normal 1.0 - 2.5 [facility], [facility].; [facility], [facility]. ALP [Catalytic activity/Vol] 77 U/L Normal 33 - 130 U/L [facility], [facility].; [place] [facility], [facility] ALT [Catalytic activity/Vol] 10 U/L Normal 6 - 29 U/L [facility], [facility].; [place] [facility], [facility] AST [Catalytic activity/Vol] 16 U/L Normal 10 - 35 U/L [facility], [facility].; [place] [employer], [facility]. Bilirubin [Mass/Vol] 0.9 mg/dL Normal 0.2 - 1 .2 mg/dL [facility], [facility].; [place] [employer], [employer] Calcium [Mass/Vol] 10.4 mg/dL Normal 8.6 - 10. 4 mg/dL [facility], [facility].; [place] [facility], [facility]. Chloride [Moles/Vol] 103 mmol/L Normal 98 - 11 0 mmol/L [facility], [facility].; [place] [employer], [employer] Cholesterol [Mass/Vol] 173 mg/dL Normal 125 - 200 mg/dL [facility], [facility].; [place] [employer], [employer] Cholesterol in HDL [Mass/Vol] 54 mg/dL Normal [facility], [facility].; [facility], [facility]. Cholesterol in LDL [Mass/Vol] 99 mg/dL Normal [facility], [facility].; [facility], [facility]. Cholesterol non HDL [Mass/Vol] 120 mg/dL Normal [facility], [facility].; [facility], [facility]. Cholesterol.total/[place] sterol in HDL [Mass ratio] 3.2 {ratio} Normal [facility], [facility].; [facility], [facility]. CO2 [Moles/Vol] 28 mmol/L Normal 19 - 30 mmol/L [facility], [facility].; [facility], [facility]. Creatinine [Mass/Vol] 0.81 mg/dL Normal 0.50 - 0.99 mg/dL [facility], [facility].; [facility], [facility]. GFR/1.73 sq M.predicted among blacks MDRD (S/P/Bld) [Vol rate/Area] 87 {ML/MIN/1.73M2} Normal [facility], [facility].; [facility], [facility]. GFR/1.73 sq M.predicted MDRD (S/P/Bld) [Vol rate/Area] 75 {ML/MIN/1.73M2} Normal [facility], [facility].; [facility], [facility]. Globulin (S) [Mass/Vol] 3.4 g/dL Normal 1.9 - 3.7 g/dL [facility], [facility].; [facility], [facility]. Glucose [Mass/Vol] 94 mg/dL Normal 65 - 99 mg/dL [facility], [facility].; [facility], [facility]. Potassium [Moles/Vol] 4.3 mmol/L Normal 3.5 - 5.3 mmol/L [facility], [facility].; [facility], [facility]. Protein [Mass/Vol] 7.8 g/dL Normal 6.1 - 8.1 g/dL [facility], [facility].; [place] [facility], [facility]. Sodium [Moles/Vol] 141 mmol/L Normal 135 - 146 mmol/L [facility], [facility].; [place] [facility], [facility]. Triglyceride [Mass/Vol] 102 mg/dL Normal [facility].; [facility], [facility]. TSH Qn 3.01 m[IU]/L Normal 0.40 - 4.50 {mIU/L} [facility].; [place] [facility]. Urea nitrogen [Mass/Vol] 13 mg/dL Normal 7 - 25 mg/dL [facility].; [place] [facility], [facility] Urea nitrogen/Creatinine [Mass ratio] 15.8 mg/mg Normal 6 - 22 [facility].; [place] [employer] [facility] Laboratory - Hematology and Cell countson 11-21-2014 Basophils (Bld) [#/Vol] 60 {Cells}/uL Normal 0 - 200 {Cells}/uL [facility].; [place] [employer] [facility] Basophils/100 WBC (Bld) 1 % Normal 0 - 1 % H [facility].; [facility], [facility] Eosinophils (Bld) [#/Vol] 250 {Cells}/uL Normal 15 - 500 {Cells}/uL [facility].; [place] [employer] [facility] Eosinophils/100 WBC (Bld) 5 % Abnormal 0 - 4 % [facility].; [place] [employer] Erythrocyte distribution width (RBC) [Ratio] 13.7 % Normal 11.0 - 15.0 % [facility].; [place] [employer], [facility] Hematocrit (Bld) [Volume fraction] 38.5 % Normal 35.0 - 45.0 % [facility].; [place] [employer], [facility] Hemoglobin (Bld) [Mass/Vol] 12.8 g/dL Normal 11.7 - 15.5 g/dL [facility].; [place] [facility]. Lymphocytes (Bld) [#/Vol] 2050 {Cells}/uL Normal 850 - 3900 {Cells}/uL [facility].; [place] [employer] [facility] Lymphocytes/100 WBC (Bld) 38 % Normal 12 - 47 % [facility].; [place] [employer], [facility]. MCH (RBC) [Entitic mass] 29.4 pg Normal 27.0 - 33.0 PG [place] [facility].; [place] [employer], [facility]. MCHC (RBC) [Mass/Vol] 33.2 g/dL Normal 32.0 - 36.0 g/dL [facility].; [place] [employer], [employer]. MCV (RBC) [Entitic vol] 88.4 fL Normal 80.0 - 100.0 fL [facility].; [facility], [facility]. Monocytes (Bld) [#/Vol] 310 {Cells}/uL Normal 20 0 - 950 {Cells}/uL [facility], [facility].; [place] [employer], [employer]. Monocytes/100 WBC (Bld) 6 % Normal 4 - 12 % H [facility].; [facility], [facility]. Neutrophils (Bld) [#/Vol] 2770 {Cells}/uL Normal 1500 - 7800 {Cells}/uL [facility] [employer], [facility].; [place] [employer], [employer]. Neutrophils/100 WBC (Bld) 51 % Normal 40 - 75 % [facility].; [place] [employer], [employer]. Platelet mean volume (Bld) [Entitic vol] 9.0 fL Normal 7.5 - 11.5 fL [facility].; [place] [employer], [employer]. Platelets (Bld) [#/Vol] 237 10*3/uL Normal 140 - 400 10*3/uL [facility].; [place] [employer], [employer]. RBC (Bld) [#/Vol] 4.35 10*6/uL Normal 3.80 - 5.1 0 10*6/uL [facility], [facility].; [place] [employer], [employer]. WBC (Bld) [#/Vol] 5.4 10*3/uL Normal 3.8 - 10.8 10*3/uL [facility] [employer], [employer].; [employer] Laboratory - Chemistry and C hemistry - challengeon 11-22-2013 Bilirubin Ql (U) Negative [facility].; [place] [employer], [employer]. Hemoglobin.gastrointest inal Ql (Stl) Negative Normal [facility].; [place] [employer], [employer] Ketones Ql (U) Negative Normal [facility], [facility].; [employer] pH (U) 6.5 [pH] Normal [facility] [employer] [facility].; [place] [employer], [employer] Specific gravity (U) [Rel density] <=1.005 Normal [facility].; [employer] Urobilinogen Qn (U) 0.2 mg/dL Normal [facility].; [place] [facility] Laboratory - Hematology and Cell countson 11-22-2013 Hemoglobin Ql (U) small Abnormal [facility].; [place] [employer]. Laboratory - Specimen inform ationon 11-22-2013 Appearance (U) Clear Normal [facility].; [place] [employer] Color (U) yellow Normal [facility].; [employer] Laboratory - Urinalysison Glucose Test strip (U) [Mass/Vol] Negative Normal [facility].; [place] [employer] Leukocyte esterase Test strip Ql (U) moderate Abnormal [facility].; [place] [employer] Nitrite Ql (U) Negative Normal [facility].; [place] [employer]. Protein Ql (U) Negative Normal [facility] [employer].; [employer]. Laboratory - Chemistry and C hemistry - challengeon 11-14-2013 Albumin [Mass/Vol] 4.2 g/dL Normal 3.6 - 5.1 g/dL [facility].; [place] [employer], [employer]. Albumin/Globulin [Mass ratio] 1.5 {ratio} Normal 1.0 - 2.5 [facility]; [place] [employer]. ALP [Catalytic activity/Vol] 77 U/L Normal 33 - 130 U/L [facility].; [employer], [employer]. ALT [Catalytic activity/Vol] 9 U/L Normal 6 - 29 U/L [place] [employer] [facility].; [employer]. AST [Catalytic activity/Vol] 16 U/L Normal 10 - 35 U/L [place] [facility].; [employer], [employer]. Bilirubin [Mass/Vol] 0.7 mg/dL Normal 0.2 - 1 .2 mg/dL [facility].; [employer]. Calcium [Mass/Vol] 9.7 mg/dL Normal 8.6 - 10. 4 mg/dL [facility].; [facility], [facility]. Chloride [Moles/Vol] 105 mmol/L Normal 98 - 11 0 mmol/L [facility].; [facility], [facility]. Cholesterol [Mass/Vol] 163 mg/dL Normal 125 - 200 mg/dL [facility], [facility].; [place] [facility] [facility], [facility]. Cholesterol in HDL [Mass/Vol] 47 mg/dL Normal [facility], [facility]. Cholesterol in LDL [Mass/Vol] 94 mg/dL Normal [facility].; [facility], [facility]. Cholesterol non HDL [Mass/Vol] 116 mg/dL Normal [facility].; [facility], [facility]. Cholesterol.total/[place] sterol in HDL [Mass ratio] 3.5 {ratio} Normal [facility].; [place] [facility], [facility]. CO2 [Moles/Vol] 29 mmol/L Normal 19 - 30 mmol/L [facility].; [facility], [facility]. Creatinine [Mass/Vol] 0.79 mg/dL Normal 0.50 - 0.99 mg/dL [facility], [facility].; [place] [facility], [facility]. GFR/1.73 sq M.predicted among blacks MDRD (S/P/Bld) [Vol rate/Area] 90 {ML/MIN/1.73M2} Normal [facility], [facility].; [facility], [facility]. GFR/1.73 sq M.predicted MDRD (S/P/Bld) [Vol rate/Area] 78 {ML/MIN/1.73M2} Normal [facility].; [place] [employer], [facility]. Globulin (S) [Mass/Vol] 2.8 g/dL Normal 1.9 - 3.7 g/dL [facility], [facility].; [place] [facility], [facility]. Glucose [Mass/Vol] 95 mg/dL Normal 65 - 99 mg/dL [facility], [facility].; [place] [employer], [facility]. Potassium [Moles/Vol] 4.1 mmol/L Normal 3.5 - 5.3 mmol/L [facility].; [place] [facility], [facility]. Protein [Mass/Vol] 7.0 g/dL Normal 6.1 - 8.1 g/dL [facility] [employer] [facility].; [place] [employer], [employer]. Sodium [Moles/Vol] 141 mmol/L Normal 135 - 146 mmol/L [facility].; [place] [employer], [employer]. Triglyceride [Mass/Vol] 111 mg/dL Normal H [facility], [facility].; [place] [employer], [employer]. Urea nitrogen [Mass/Vol] 9 mg/dL Normal 7 - 25 mg/dL [facility].; [place] [employer], [employer]. Urea nitrogen/Creatinine [Mass ratio] 11.4 mg/mg Normal 6 - 22 [place] [employer].; [employer], [employer]. Laboratory - Hematology and Cell countson 11-14-2013 Basophils (Bld) [#/Vol] 40 {Cells}/uL Normal 0 - 200 {Cells}/uL [facility].; [place] [employer], [employer]. Basophils/100 WBC (Bld) 1 % Normal [facility].; [place] [employer], [employer]. Eosinophils (Bld) [#/Vol] 420 {Cells}/uL Normal 15 - 500 {Cells}/uL [place] [employer].; [employer], [employer]. Eosinophils/100 WBC (Bld) 7 % Normal [place] [facility].; [employer], [employer]. Erythrocyte distribution width (RBC) [Ratio] 14.1 % Normal 11.0 - 15.0 % [place] [employer].; [employer], [employer]. Hematocrit (Bld) [Volume fraction] 36.8 % Normal 35.0 - 45.0 % [place] [employer].; [employer], [employer]. Hemoglobin (Bld) [Mass/Vol] 12.2 g/dL Normal 11.7 - 15.5 g/dL [place] [employer].; [place] [employer], [employer]. Lymphocytes (Bld) [#/Vol] 2370 {Cells}/uL Normal 850 - 3900 {Cells}/uL [place] [employer], [employer].; [employer] Lymphocytes/100 WBC (Bld) 39 % Normal [place] [employer].; [employer], [employer]. MCH (RBC) [Entitic mass] 29.6 pg Normal 27.0 - 33.0 PG [facility], [facility].; [place] [employer], [facility]. MCHC (RBC) [Mass/Vol] 33.1 g/dL Normal 32.0 - 36.0 g/dL [facility], [facility].; [place] [facility], [facility] MCV (RBC) [Entitic vol] 89.5 fL Normal 80.0 - 100.0 fL [facility], [facility].; [facility], [facility]. Monocytes (Bld) [#/Vol] 340 {Cells}/uL Normal 20 0 - 950 {Cells}/uL [facility], [facility].; [place] [employer] Monocytes/100 WBC (Bld) 6 % Normal [facility].; [facility], [facility]. Neutrophils (Bld) [#/Vol] 2880 {Cells}/uL Normal 1500 - 7800 {Cells}/uL [facility], [facility].; [place] [employer], [employer]. Neutrophils/100 WBC (Bld) 48 % Normal [facility].; [place] [employer], [facility]. Platelets (Bld) [#/Vol] 242 10*3/uL Normal 140 - 400 10*3/uL [facility], [facility].; [place] [employer], [facility]. RBC (Bld) [#/Vol] 4.11 10*6/uL Normal 3.80 - 5.1 0 10*6/uL [facility], [facility].; [place] [employer] WBC (Bld) [#/Vol] 6.1 10*3/uL Normal 3.8 - 10.8 10*3/uL [place] [employer], [facility].; [employer], [facility]. Laboratory - Chemistry and C hemistry - challengeon 11-02-2012 Hemoglobin.gastrointest inal Ql (Stl) Negative Normal [place] [facility].; [place] [employer], [facility]. Laboratory - Chemistry and C hemistry - challengeon 10-23-2012 Calcium [Mass/Vol] 9.9 mg/dL Normal 8.6 - 10. 4 mg/dL [facility], [facility].; [employer] Chloride [Moles/Vol] 102 mmol/L Normal 98 - 11 0 mmol/L [facility].; [place] [employer], [facility]. Cholesterol [Mass/Vol] 165 mg/dL Normal 125 - 200 mg/dL [facility], [facility].; [facility], [facility]. Cholesterol in HDL [Mass/Vol] 54 mg/dL Normal [facility], [facility].; [facility], [facility]. Cholesterol in LDL [Mass/Vol] 92 mg/dL Normal [facility], [facility].; [place] [employer], [facility]. Cholesterol non HDL [Mass/Vol] 111 mg/dL Normal [facility], [facility].; [facility], [facility]. Cholesterol.total/[place] sterol in HDL [Mass ratio] 3.1 {ratio} Normal [facility], [facility].; [place] [facility], [facility]. CO2 [Moles/Vol] 28 mmol/L Normal 19 - 30 mmol/L [facility], [facility].; [place] [employer] [facility], [facility]. Creatinine [Mass/Vol] 0.71 mg/dL Normal 0.50 - 0.99 mg/dL [facility], [facility].; [facility], [facility]. GFR/1.73 sq M.predicted among blacks MDRD (S/P/Bld) [Vol rate/Area] 104 {ML/MIN/1.73M2} Normal [facility], [facility].; [place] [employer], [facility]. GFR/1.73 sq M.predicted MDRD (S/P/Bld) [Vol rate/Area] 89 {ML/MIN/1.73M2} Normal [facility], [facility].; [place] [employer], [facility]. Glucose [Mass/Vol] 83 mg/dL Normal 65 - 99 mg/dL [facility], [facility].; [place] [employer] [facility], [facility]. Potassium [Moles/Vol] 4.2 mmol/L Normal 3.5 - 5.3 mmol/L [facility], [facility].; [place] [employer], [facility]. Sodium [Moles/Vol] 141 mmol/L Normal 135 - 146 mmol/L [facility], [facility].; [place] [facility], [facility]. Triglyceride [Mass/Vol] 94 mg/dL Normal H [facility], [facility].; [place] [employer], [facility]. TSH Qn 4.13 m[IU]/L Normal 0.40 - 4.50 {mIU/L} [facility] [employer].; [place] [employer] [facility]. Urea nitrogen [Mass/Vol] 10 mg/dL Normal 7 - 25 mg/dL [facility] [employer] [facility].; [place] [employer]. Urea nitrogen/Creatinine [Mass ratio] 13.7 mg/mg Normal 6 - 22 [facility].; [place] [employer], [employer]. Laboratory - Hematology and Cell countson 10-23-2012 Basophils (Bld) [#/Vol] 30 {Cells}/uL Normal 0 - 200 {Cells}/uL [facility].; [place] [employer] Basophils/100 WBC (Bld) 0 % Normal 0 - 2 % H [facility].; [place] [employer], [facility] Eosinophils (Bld) [#/Vol] 290 {Cells}/uL Normal 15 - 500 {Cells}/uL [facility].; [place] [employer], [employer]. Eosinophils/100 WBC (Bld) 5 % Normal 0 - 8 % [place] [employer].; [place] [employer] Erythrocyte distribution width (RBC) [Ratio] 14.1 % Normal 11.0 - 15.0 % [facility].; [employer], [employer] Hematocrit (Bld) [Volume fraction] 39.6 % Normal 35.0 - 45.0 % [place] [employer].; [place] [employer], [facility]. Hemoglobin (Bld) [Mass/Vol] 12.9 g/dL Normal 11.7 - 15.5 g/dL [place] [employer] [facility].; [place] [employer], [facility]. Lymphocytes (Bld) [#/Vol] 2150 {Cells}/uL Normal 850 - 3900 {Cells}/uL [facility] [employer] [facility].; [place] [employer], [employer]. Lymphocytes/100 WBC (Bld) 34 % Normal 15 - 49 % [place] [employer].; [employer], [employer]. MCH (RBC) [Entitic mass] 30.0 pg Normal 27.0 - 33.0 PG [place] [employer] [facility].; [place] [employer], [employer]. MCHC (RBC) [Mass/Vol] 32.5 g/dL Normal 32.0 - 36.0 g/dL [place] [employer].; [place] [employer], [employer]. MCV (RBC) [Entitic vol] 92.4 fL Normal 80.0 - 100.0 fL [facility].; [facility], [facility]. Monocytes (Bld) [#/Vol] 100 {Cells}/uL Abnormal 20 0 - 950 {Cells}/uL [facility].; [place] [facility], [employer]. Monocytes/100 WBC (Bld) 2 % Normal 0 - 13 % H [facility].; [facility] Neutrophils (Bld) [#/Vol] 3800 {Cells}/uL Normal 1500 - 7800 {Cells}/uL [facility].; [facility] [employer], [facility]. Neutrophils/100 WBC (Bld) 60 % Normal 38 - 80 % [facility].; [place] [facility]. Platelets (Bld) [#/Vol] 254 10*3/uL Normal 140 - 400 10*3/uL [facility].; [place] [employer]. RBC (Bld) [#/Vol] 4.28 10*6/uL Normal 3.80 - 5.1 0 10*6/uL [facility].; [place] [employer]. WBC (Bld) [#/Vol] 6.4 10*3/uL Normal 3.8 - 10.8 10*3/uL [facility].; [place] [employer], [facility]. Laboratory - Chemistry and C hemistry - challengeon 03-16-2012 TSH Qn 3.95 mU/mL Normal 0.35 - 5.5 mU/mL [facility].; [place] [employer] [facility]. Laboratory - Chemistry and C hemistry - challengeon 09-09-2011 Bilirubin Ql (U) Negative Normal [facility].; [employer], [employer]. Ketones Ql (U) Negative Normal [facility].; [place] [employer], [employer]. pH (U) 5.5 [pH] Normal 4.6 - 8.0 [facility].; [employer], [employer] Specific gravity (U) [Rel density] 1.020 Normal 1.001 - 1.025 [facility].; [place] [employer]. Laboratory - Hematology and Cell countson 09-09-2011 Hemoglobin Ql (U) Moderate Abnormal [place] [employer].; [employer]. Laboratory - Specimen inform ationon 09-09-2011 Appearance (U) Clear Normal [facility] [employer].; [employer] Color (U) yellow Normal [place] [employer].; [employer]. Laboratory - Urinalysison Glucose Test strip (U) [Mass/Vol] Negative Normal [employer].; [employer]. Leukocyte esterase Test strip Ql (U) small Abnormal [place] [employer].; [employer]. Nitrite Ql (U) Negative Normal [facility] [employer].; [employer]. Protein Ql (U) Negative Normal [facility] [employer].; [employer]. No Panel Informationon 09-08 0.2 mg/dL Normal [employer].; [employer]. Laboratory - Chemistry and C hemistry - challengeon 08-23-2011 Albumin [Mass/Vol] 4.5 g/dL Normal 3.5 - 5.0 g/dL [place] [employer].; [place], [employer]. Albumin/Globulin [Mass ratio] 1.7 {ratio} Abnormal [employer].; [employer], [employer]. ALP [Catalytic activity/Vol] 66 U/L Normal 50 - 136 U/L [employer].; [employer], [employer]. ALT [Catalytic activity/Vol] 11 mmol/L Abnormal 12 - 49 mmol/L [employer].; [employer], [employer]. AST [Catalytic activity/Vol] 17 U/L Normal 15 - 37 U/L [employer].; [place], [employer]. Bilirubin [Mass/Vol] 0.7 mg/dL Normal 0.3 - 1 .0 mg/dL [employer].; [employer], [employer]. Calcium [Mass/Vol] 9.8 mg/dL Normal 8.4 - 10. 6 mg/dL [employer].; [employer]. Chloride [Moles/Vol] 105 mmol/L Normal 98 - 11 0 mmol/L [facility].; [facility]. Cholesterol [Mass/Vol] 155 mg/dL Normal 0 - 2 00 mg/dL [facility].; [facility], [facility]. Cholesterol in HDL [Mass/Vol] 51 mg/dL Normal 40 - 60 mg/dL [facility].; [facility], [facility] Cholesterol in LDL [Mass/Vol] 86 mg/dL Normal 50.0 - 130.0 mg/dL [facility].; [facility], [facility] Cholesterol.total/Antonietta sterol in HDL [Mass ratio] 3.0 {ratio} Normal 0 - 5.0 [facility].; [facility], [facility]. CO2 [Moles/Vol] 32.0 {joel/L} Normal 22.0 - 32.0 {joel/L} [facility], [facility].; [facility], [facility]. Creatinine [Mass/Vol] 0.7 mg/dL Normal 0.6 - 1.4 mg/dL [facility].; [facility], [facility]. Globulin (S) [Mass/Vol] 2.6 g/dL Normal 1.5 - 3.8 g/dL [facility], [facility].; [facility], [facility]. Glucose [Mass/Vol] 95 mg/dL Normal 75 - 105 mg/dL [facility], [facility].; [facility], [facility]. Potassium [Moles/Vol] 4.3 mmol/L Normal 3.50 - 5.00 meq/L [facility], [facility].; [facility], [facility]. Protein [Mass/Vol] 7.1 g/dL Normal 6.4 - 8.2 g/dL [facility], [facility].; [facility], [facility]. Sodium [Moles/Vol] 141 mmol/L Normal 136 - 145 mmol/L [facility], [facility].; [facility], [facility]. Triglyceride [Mass/Vol] 89 mg/dL Normal 40 - 150 mg/dL [facility], [facility].; [facility], [facility]. TSH Qn 5.86 mU/mL Abnormal 0.35 - 5.5 mU/mL [facility].; [facility], [facility]. Urea nitrogen [Mass/Vol] 11 mg/dL Normal 7.0 - 20.0 mg/dL [facility], [facility].; [employer], [employer]. Urea nitrogen/Creatinine [Mass ratio] 16 mg/mg Normal 0 - 30 [facility] HospitalAGV Media.; [place] [employer], [employer]. Laboratory - Hematology and Cell countson 08-23-2011 Basophils/100 WBC (Bld) 0.0 % Normal 0.00 - 0.10 [facility], [facility].; [facility], [employer] Basophils/100 WBC (Bld) 0.8 % Normal 0.0 - 2.0 % [facility], [facility].; [place] [employer], [employer] Eosinophils/100 WBC (Bld) 0.30 % Normal 0.00 - 0.50 [facility].; [facility], [employer] Eosinophils/100 WBC (Bld) 5.5 % Normal 0.0 - 6.0 % [place] [facility], [employer].; [employer], [employer] Erythrocyte distribution width (RBC) [Ratio] 13.6 % Normal 12.0 - 15.6 % [place] [facility].; [employer], [employer]. Hematocrit (Bld) [Volume fraction] 39.6 % Normal 34 - 44 % [place] [facility], [employer].; [employer], [employer] Lymphocytes/100 WBC (Bld) 1.80 % Normal [place] [facility].; [place] [employer], [employer] Lymphocytes/100 WBC (Bld) 30.5 % Normal 20.0 - 45.0 % [place] [employer], [employer].; [employer], [employer] MCH (RBC) [Entitic mass] 30 pg Normal 27 - 33 pg [place] [employer] [facility].; [employer] MCHC (RBC) [Mass/Vol] 33 g/dL Normal 32 - 36 g/dL [facility], [facility].; [employer], [employer]. MCV (RBC) [Entitic vol] 91 fL Normal 80 - 99 fL [facility] [employer], [employer].; [employer]. Monocytes/100 WBC (Bld) 0.40 % Normal H [facility], Inc.; [place] [employer], [employer] Neutrophils/100 WBC (Bld) 56.4 % Normal 46 - 76 % [place] [employer].; [employer]. Platelet mean volume (Bld) [Entitic vol] 8.5 fL Normal 6.6 - 10.5 fL [place] [employer].; [place] [employer]. Platelets (Bld) [#/Vol] 240 10*9{Cells}/L Normal 150 - 450 10*9{Cells}/ L [place] [employer] [facility].; [place] [employer]. RBC (Bld) [#/Vol] 4.36 10*6/uL Normal 4.10 - 5.3 0 10*6/uL [place] [employer] [facility].; [place] [employer]. WBC (Bld) [#/Vol] 6.1 10*9{Cells}/L Normal 4.5 - 10.8 10*9{Cells}/ L [place] [employer] [facility].; [employer]. No Panel Informationon 08-22 3.40 10*6/uL Normal 1.5 - 7.1 10*6/uL [facility] [facility].; [employer]. 6.8 % Normal 2.0 - 13.0 % [facility].; [place] [employer] 13.1 g/dL Normal 11.5 - 14.2 g/dL [place] [employer].; [employer]. 84 Normal [place] [employer].; [employer] Laboratory - Chemistry and C hemistry - challengeon 02-26-2011 Cholesterol [Mass/Vol] 210 mg/dL Abnormal 0 - 2 00 mg/dL [facility].; [employer] [facility]. Cholesterol in HDL [Mass/Vol] 58 mg/dL Normal 40 - 60 mg/dL [place] [employer] [facility].; [employer]. Cholesterol in LDL [Mass/Vol] 138 mg/dL Abnormal 50.0 - 130.0 mg/dL [place] [employer] [facility].; [employer], [employer]. Cholesterol.total/Antonietta sterol in HDL [Mass ratio] 3.6 {ratio} Normal 0 - 5.0 [place] [employer].; [employer]. Triglyceride [Mass/Vol] 69 mg/dL Normal 40 - 150 mg/dL [place] [employer].; [employer]. Laboratory - Chemistry and C hemistry - challengeon 08-26-2010 Bilirubin Ql (U) Negative Normal [facility].; [place] [employer] Ketones Ql (U) Negative Normal [facility].; [place] [employer], [employer]. pH (U) 5.0 [pH] Normal 4.6 - 8.0 [facility].; [place] [employer] Specific gravity (U) [Rel density] 1.020 Normal 1.001 - 1.025 [facility].; [employer]. Laboratory - Hematology and Cell countson 08-26-2010 Hemoglobin Ql (U) Abnormal [facility].; [place] [employer]. Laboratory - Specimen inform ationon 08-26-2010 Appearance (U) clear Normal [facility] HospitalApplePie Capital; [employer] Color (U) yellow Normal [facility]; [employer]. Laboratory - Urinalysison Glucose Test strip (U) [Mass/Vol] Negative Normal [facility].; [employer]. Leukocyte esterase Test strip Ql (U) large Abnormal [facility]; [employer]. Nitrite Ql (U) Negative Normal [facility] InstituteAG[facility] Media.; [employer]. Protein Ql (U) Negative Normal [facility].; [employer]. No Panel Informationon 08-26 0.2 mg/dL Normal [facility].; [employer]. Laboratory - Chemistry and C hemistry - challengeon 07-23-2010 ALT [Catalytic activity/Vol] 15 mmol/L Normal 12 - 49 mmol/L [facility]; [employer], [employer]. Calcium [Mass/Vol] 10.1 mg/dL Normal 8.4 - 10. 6 mg/dL [facility].; [employer], [employer]. Chloride [Moles/Vol] 108 mmol/L Normal 98 - 11 0 mmol/L [facility] [employer].; [employer]. Cholesterol [Mass/Vol] 139 mg/dL Normal 0 - 2 00 mg/dL [facility].; [place] [employer]. Cholesterol in HDL [Mass/Vol] 48 mg/dL Normal 40 - 60 mg/dL [facility].; [place] [facility], [employer]. Cholesterol in LDL [Mass/Vol] 80 mg/dL Normal 0 - 100 mg/dL [facility], [facility].; [place] [employer], [employer]. Cholesterol.total/Antonietta sterol in HDL [Mass ratio] 2.9 {ratio} Normal 0 - 5.0 [facility] HospitalAGV Media.; [place] [employer], [employer]. CO2 [Moles/Vol] 34.0 {joel/L} Abnormal 22.0 - 32.0 {joel/L} [place] [facility] HospitalAG[facility] Media.; [place] [employer], [employer]. Glucose [Mass/Vol] 90 mg/dL Normal 60 - 100 mg/dL [facility].; [employer], [employer]. Potassium [Moles/Vol] 4.3 mmol/L Normal 3.5 - 5.0 mmol/L [place] [facility].; [employer], [employer]. Sodium [Moles/Vol] 144 mmol/L Normal 136 - 145 mmol/L [place] [employer].; [employer], [employer]. Triglyceride [Mass/Vol] 57 mg/dL Normal 0 - 150 mg/dL [place] [facility] HospitalAGV Media.; [employer], [employer]. Urea nitrogen [Mass/Vol] 13 mg/dL Normal 8 - 22 mg/dL [place] [employer].; [employer], [employer]. Laboratory - Chemistry and C hemistry - challengeOrdered By: Janeth Florez on 07-23-2010 Creatinine [Mass/Vol] 0.6 mg/dL Normal 0.5 - 1.2 mg/dL [place] [employer].; [employer], [employer]. Work Phone: Laboratory - Hematology and Cell countson 07-23-2010 Basophils/100 WBC (Bld) 0.10 % Normal 0.00 - 0.10 [facility] HospitalAGV Media.; [employer] Basophils/100 WBC (Bld) 1.1 % Normal 0.0 - 2.0 % [place] [facility] HospitalAG[facility] Media.; [employer] Eosinophils/100 WBC (Bld) 0.30 % Normal 0.00 - 0.50 [facility], [facility].; [facility], [facility]. Eosinophils/100 WBC (Bld) 6.0 % Normal 0.0 - 6.0 % [facility], [facility].; [place] [facility], [facility]. Erythrocyte distribution width (RBC) [Ratio] 13.6 % Normal 12.0 - 15.6 % [facility], [facility].; [place] [facility], [facility]. Hematocrit (Bld) [Volume fraction] 37.3 % Normal 34 - 44 % [facility], [facility].; [facility], [facility]. Lymphocytes/100 WBC (Bld) 2.00 % Normal [facility].; [facility], [facility]. Lymphocytes/100 WBC (Bld) 36.3 % Normal 20.0 - 45.0 % [facility], [facility].; [place] [employer], [facility]. MCH (RBC) [Entitic mass] 31 pg Normal 27 - 33 pg [facility].; [place] [employer], [facility]. MCHC (RBC) [Mass/Vol] 34 g/dL Normal 32 - 36 g/dL [facility].; [place] [facility], [facility]. MCV (RBC) [Entitic vol] 92 fL Normal 80 - 99 fL [facility], [facility].; [place] [employer], [facility]. Monocytes/100 WBC (Bld) 0.50 % Normal H [facility], [facility].; [place] [employer], [facility]. Neutrophils/100 WBC (Bld) 48.3 % Normal 46 - 76 % [place] [facility].; [place] [employer], [facility]. Platelet mean volume (Bld) [Entitic vol] 8.3 fL Normal 6.6 - 10.5 fL [place] [facility].; [place] [employer], [facility]. Platelets (Bld) [#/Vol] 239 10*9{Cells}/L Normal 150 - 450 10*9{Cells}/ L [facility].; [place] [employer], [facility]. RBC (Bld) [#/Vol] 4.07 10*6/uL Abnormal 4.10 - 5.3 0 10*6/uL [place] [facility].; [facility]Start[facility] Inc. WBC (Bld) [#/Vol] 5.5 10*9{Cells}/L Normal 4.5 - 10.8 10*9{Cells}/ L [facility].; [facility]. No Panel Informationon 07-23 2.70 10*6/uL Normal 1.5 - 7.1 10*6/uL [facility].; [facility] 8.3 % Normal 2.0 - 13.0 % [facility].; [facility] 12.6 g/dL Normal 11.5 - 14.2 g/dL [facility].; [facility]. Vital Signs Date Time Vital Sign Value Performing Clinician Faci lity 09-23-2024 09:52-0400 Body temperature 98.5 [degF] Dr. Joel Muniz MD Work Phone: [phone])087-241778 [place] [address] 09-23-2024 09:52-0400 Diastolic blood pressure 74 mm[Hg] Dr. Joel Muniz MD Work Phone: [phone] [place] [address] 09-23-2024 09:52-0400 Heart rate 78 /min Dr. Joel Muniz MD Work Phone: 2([phone])952-989878 [place] [address] 09-23-2024 09:52-0400 Respiratory rate 14 /min Dr. Joel Muniz MD Work Phone: [phone])[phone] [place] [address] 09-23-2024 09:52-0400 SaO2% (BldA) [Mass fraction] 98 % Dr. Joel Muniz MD Work Phone: [phone])[phone] [place] [address] 09-23-2024 09:52-0400 Systolic blood pressure 172 mm[Hg] Dr. Joel Mnuiz MD Work Phone: [phone])797-875078 [place] [address] 09-23-2024 08:16-0400 Body height 160.[address] Joel Muniz MD Work Phone: [phone] [place] [address] 09-23-2024 08:16-0400 Body mass index (BMI) [Ratio] 23.6 kg/m2 Dr. Joel Muniz MD Work Phone: 6(158)901-511278 [place] [address] 09-23-2024 08:16-0400 Body weight 60.[address] Joel Muniz MD Work Phone: 8(141)493-740478 [place] [address] 09-03-2024 15:33-0400 Body height 160.[address] Joel Muniz MD Work Phone: [phone])470-294178 [place] [address] 09-03-2024 15:33-0400 Body mass index (BMI) [Ratio] 22.8 kg/m2 Dr. Joel Muniz MD Work Phone: [phone])082-671178 [place] [address] 09-03-2024 15:33-0400 Body weight 58.[address] Joel Muniz MD Work Phone: 4(244)892-480478 [place] [address] 09-03-2024 15:33-0400 Diastolic blood pressure 91 mm[Hg] Dr. Joel Muniz MD Work Phone: 3([phone])650-146778 [place] [address] 09-03-2024 15:33-0400 Heart rate 71 /min Dr. Joel Muniz MD Work Phone: [phone])357-272178 [place] [address] 09-03-2024 15:33-0400 Respiratory rate 18 /min Dr. Joel Muniz MD Work Phone: 5([phone])079-042878 [place] [address] 09-03-2024 15:33-0400 SaO2% (BldA) [Mass fraction] 95 % Dr. Joel Muniz MD Work Phone: [phone] [place] [address] 09-03-2024 15:33-0400 Systolic blood pressure 169 mm[Hg] Dr. Joel Muniz MD Work Phone: 7([phone])657-590678 [place] [address] 07-27-2024 09:27-0400 Diastolic blood pressure 84 mm[Hg] Dr. Joel Muniz MD Work Phone: [phone](109)[phone] [place] [address] 07-27-2024 09:27-0400 Heart rate 74 /min Dr. Joel Muniz MD Work Phone: [phone](832)[phone] [place] [address] 07-27-2024 09:27-0400 Respiratory rate 18 /min Dr. Joel Muniz MD Work Phone: [phone])[phone] [place] [address] 07-27-2024 09:27-0400 SaO2% (BldA) [Mass fraction] 94 % Dr. Joel Muniz MD Work Phone: [phone] [place] [address] 07-27-2024 09:27-0400 Systolic blood pressure 148 mm[Hg] Dr. Joel Muniz MD Work Phone: 5([phone] [place] [address] 07-13-2024 14:26-0400 Diastolic blood pressure 84 mm[Hg] Dr. Joel Muniz MD Work Phone: [phone] [place] [address] 07-13-2024 14:26-0400 Heart rate 64 /min Dr. Joel Muniz MD Work Phone: [phone] [place] [address] 07-13-2024 14:26-0400 Respiratory rate 18 /min Dr. Joel Muniz MD Work Phone: 0(673)073-201678 [place] [address] 07-13-2024 14:26-0400 SaO2% (BldA) [Mass fraction] 96 % Dr. Joel Muniz MD Work Phone: 3(544)269-465978 [place] [address] 07-13-2024 14:26-0400 Systolic blood pressure 179 mm[Hg] Dr. Joel Muniz MD Work Phone: 0(413)734-672878 [place] [address] 07-06-2024 14:31-0400 Body height 160.[address] Joel Muniz MD Work Phone: 6(200)475-466078 [place] [address] 07-06-2024 14:31-0400 Body temperature 98.7 [degF] Dr. Joel Muniz MD Work Phone: 0(999)204-980978 [place] [address] 07-06-2024 14:31-0400 Diastolic blood pressure 69 mm[Hg] Dr. Joel Muniz MD Work Phone: 1(725)953-051878 [place] [address] 07-06-2024 14:31-0400 Heart rate 90 /min Dr. Joel Muniz MD Work Phone: 0(211)394-015978 [place] [address] 07-06-2024 14:31-0400 Respiratory rate 18 /min Dr. Joel Muniz MD Work Phone: 3(512)275-002978 [place] [address] 07-06-2024 14:31-0400 SaO2% (BldA) [Mass fraction] 95 % Dr. Joel Muniz MD Work Phone: 3(816)495-155978 [place] [address] 07-06-2024 14:31-0400 Systolic blood pressure 127 mm[Hg] Dr. Joel Muniz MD Work Phone: 5(903)881-468178 [place] [address] 07-03-2024 10:18-0400 Body height 160.[address] Joel Muniz MD Work Phone: 7(974)116-559678 [place] [address] 07-03-2024 10:18-0400 Body mass index (BMI) [Ratio] 24 kg/m2 Dr. Joel Muniz MD Work Phone: 9(646)188-987978 [place] [address] 07-03-2024 10:18-0400 Body weight 61.[address] Joel Muniz MD Work Phone: 3(141)475-058478 [place] [address] 07-03-2024 10:18-0400 Diastolic blood pressure 91 mm[Hg] Dr. Joel Muniz MD Work Phone: 9(867)925-681578 [place] [address] 07-03-2024 10:18-0400 Heart rate 66 /min Dr. Joel Muniz MD Work Phone: 3(329)437-609678 [place] [address] 07-03-2024 10:18-0400 Respiratory rate 18 /min Dr. Joel Muniz MD Work Phone: 3(481)184-418978 [place] [address] 07-03-2024 10:18-0400 SaO2% (BldA) [Mass fraction] 94 % Dr. Joel Muniz MD Work Phone: 9(724)288-860678 [place] [address] 07-03-2024 10:18-0400 Systolic blood pressure 165 mm[Hg] Dr. Joel Muniz MD Work Phone: 1(921)777-942078 [place] [address] 06-28-2024 14:56-0400 Body mass index (BMI) [Ratio] 23.7 kg/m2 Dr. Joel Muniz MD Work Phone: 2(355)792-810078 [place] [address] 06-28-2024 14:56-0400 Body temperature 97.7 [degF] Dr. Joel Muniz MD Work Phone: 7(374)065-244578 [place] [address] 06-28-2024 14:56-0400 Body weight 60.[address] Joel Muniz MD Work Phone: 8(873)477-124178 [place] [address] 06-28-2024 14:56-0400 Heart rate 76 /min Dr. Joel Muniz MD Work Phone: 5(457)287-815278 [place] [address] 06-28-2024 14:56-0400 Respiratory rate 18 /min Dr. Joel Muniz MD Work Phone: 6(153)491-985678 [place] [address] 06-28-2024 14:56-0400 SaO2% (BldA) [Mass fraction] 94 % Dr. Joel Munzi MD Work Phone: 2(118)013-311278 [place] [address] 06-26-2024 00:49-0400 Body temperature 98 [degF] Dr. Joel Muniz MD Work Phone: 2(538)025-263078 [place] [address] 06-26-2024 00:49-0400 Diastolic blood pressure 80 mm[Hg] Dr. Joel Muniz MD Work Phone: 5(878)645-345478 [place] [address] 06-26-2024 00:49-0400 Heart rate 89 /min Dr. Joel Muniz MD Work Phone: 3(689)661-217678 [place] [address] 06-26-2024 00:49-0400 Respiratory rate 16 /min Dr. Joel Muniz MD Work Phone: 1(194)798-764378 [place] [address] 06-26-2024 00:49-0400 SaO2% (BldA) [Mass fraction] 99 % Dr. Joel Muniz MD Work Phone: 8(347)580-577778 [place] [address] 06-26-2024 00:49-0400 Systolic blood pressure 146 mm[Hg] Dr. Joel Muniz MD Work Phone: 0(965)259-131178 [place] [address] 06-25-2024 20:55-0400 Body height 160.[address] Joel Muniz MD Work Phone: 6(807)797-513178 [place] [address] 06-25-2024 20:55-0400 Body mass index (BMI) [Ratio] 24.5 kg/m2 Dr. Joel Muniz MD Work Phone: 2(086)273-132478 [place] [address] 06-25-2024 20:55-0400 Body weight 62.[address] Joel Muniz MD Work Phone: 2(366)705-539404 [address] 01-17-2024 15:58-0500 Diastolic blood pressure 80 mm[Hg] Chico Collier MD Work Phone: [facility] 01-17-2024 15:58-0500 Systolic blood pressure 120 mm[Hg] Chico Collier MD Work Phone: [facility]; [facility] 03-03-2023 09:30-0500 Blood Pressure Cuff Size STAN GARCIA DO [employer] 03-03-2023 09:30-0500 Blood Pressure Location STAN GARCIA DO [employer] 03-03-2023 09:30-0500 Blood Pressure Method STAN GARCIA DO [employer] 03-03-2023 09:30-0500 Body temperature 97.16 [degF] STAN GARCIA DO [employer] 03-03-2023 09:30-0500 Diastolic Blood Pressure Non-Invasive 60 mm[Hg] STAN RADHA DO [employer] 03-03-2023 09:30-0500 Heart rate 93 /min STAN GARCIA DO [employer] 03-03-2023 09:30-0500 Reason For Taking VItal Signs STAN GARCIA DO [employer] 03-03-2023 09:30-0500 Respiratory rate 18 /min STAN GARCIA DO [employer] 03-03-2023 09:30-0500 Systolic Blood Pressure Non-Invasive 108 mm[Hg] STAN VIVEKSCARLET [employer] 03-03-2023 05:17-0500 Body temperature 96.8 [degF] STAN RADHA HENLEY [employer] 03-03-2023 05:17-0500 Diastolic Blood Pressure Non-Invasive 70 mm[Hg] STAN SCHEATZLE DO [email or web address] 03-03-2023 05:17-0500 Heart rate 73 /min STAN DOYLEATZLE DO [email or web address] 03-03-2023 05:17-0500 Respiratory rate 16 /min STAN DOYLEATZLE DO [email or web address] 03-03-2023 05:17-0500 Systolic Blood Pressure Non-Invasive 100 mm[Hg] STAN DOYLEATZLE DO [email or web address] 03-02-2023 21:09-0500 Body temperature 98.42 [degF] STAN SCHEATZLE DO [email or web address] 03-02-2023 21:09-0500 Diastolic Blood Pressure Non-Invasive 70 mm[Hg] STAN DOYLEATZLE DO [email or web address] 03-02-2023 21:09-0500 Heart rate 78 /min STAN DOYLEATZLE DO [employer] 03-02-2023 21:09-0500 Reason For Taking VItal Signs STAN DOYLEATZLE DO [employer] 03-02-2023 21:09-0500 Respiratory rate 16 /min STAN DOYLEATZLE DO [email or web address] 03-02-2023 21:09-0500 Systolic Blood Pressure Non-Invasive 150 mm[Hg] STAN SCHEATZLE DO [employer] 03-02-2023 16:18-0500 Body temperature 97.7 [degF] STAN SCHEATZLE DO [employer] 03-02-2023 16:18-0500 Heart rate 82 /min STAN SCHEATZLE DO [employer] 03-02-2023 16:18-0500 Reason For Taking VItal Signs STAN DOYLEATZLE DO [facility] [place] [facility] 03-02-2023 11:35-0500 Heart rate 85 /min STAN DOYLEATZLE DO [facility] [place] [facility] 03-02-2023 09:10-0500 Blood Pressure Cuff Size STAN DOYLEATZLE DO [facility] [place] [facility] 03-02-2023 09:10-0500 Blood Pressure Location STAN DOYLEATZLE DO [facility] [place] 03-02-2023 09:10-0500 Blood Pressure Method STAN DOYLEATZLE DO [facility] [place] 03-02-2023 09:10-0500 Heart rate 88 /min STAN DOYLEATZLE DO [facility] [place] 03-01-2023 08:55-0500 Blood Pressure Cuff Size STAN DOYLEATZLE DO [facility] [place] 03-01-2023 08:55-0500 Blood Pressure Location STAN DOYLEATZLE DO [facility] [place] 03-01-2023 08:55-0500 Blood Pressure Method STAN DOYLEATZLE DO [facility] [place] [facility] 02-28-2023 05:00-0500 Body weight 58.6 kg STAN VIVEKATZLE DO [facility] 02-27-2023 09:19-0500 Body temperature 98.06 [degF] STAN VIVEKATZLE DO [email or web address] 02-26-2023 16:00-0500 Body temperature 97.88 [degF] STAN VIVEKATZLE DO [email or web address] 02-21-2023 09:10-0500 Body weight 59.4 kg STAN DOYLEATZLE DO [facility] 02-15-2023 17:37-0500 Body height 160 cm STAN GARCIA DO [facility] 02-15-2023 17:37-0500 Body weight 59.8 kg STAN GARCIA DO [facility] 02-15-2023 17:37-0500 Body weight 23.36 kg/m2 STAN GARCIA DO [facility] 02-15-2023 11:06-[address] KATINA VALDIVIA MD [address] [place] [address] 02-15-2023 11:06-[address] KATINA VALDIVIA MD [address] [place] [address] 02-15-2023 11:06-0500 Body temperature 98.06 [degF] DR KATINA VALDIVIA MD [address] [place] [address] 02-15-2023 11:06-0500 Diastolic Blood Pressure Non-Invasive 51 mm[Hg] DR KATINA VALDIVIA MD [address] [place] [address] 02-15-2023 11:06-0500 Heart rate 90 /min DR KATINA VALDIVIA MD [address] [place] [address] 02-15-2023 11:06-0500 Reason For Taking VItal Signs DR KATINA VALDIVIA MD [address] [place] [address] 02-15-2023 11:06-0500 Respiratory rate 18 /min DR KATINA VALDIVIA MD [address] [place] [address] 02-15-2023 11:06-0500 Systolic Blood Pressure Non-Invasive 97 mm[Hg] DR KATINA VALDIVIA MD [address] [place] [address] 02-15-2023 07:36-[address] KATINA VALDIVIA MD [address] [place] [address] 02-15-2023 07:36-[address] KATINA VALDIVIA MD [address] [place] [address] 02-15-2023 07:36-0500 Body temperature 98.42 [degF] DR KATINA VALDIVIA MD [address] [place] [address] 02-15-2023 07:36-0500 Diastolic Blood Pressure Non-Invasive 83 mm[Hg] DR KATINA VALDIVIA MD [address] [place] [address] 02-15-2023 07:36-0500 Heart rate 88 /min DR KATINA VALDIVIA MD [address] [place] [address] 02-15-2023 07:36-0500 Reason For Taking VItal Signs DR KATINA VALDIVIA MD [address] [place] [address] 02-15-2023 07:36-0500 Respiratory rate 16 /min DR KATINA VALDIVIA MD [address] [place] [address] 02-15-2023 07:36-0500 Systolic Blood Pressure Non-Invasive 144 mm[Hg] DR KATINA VALDIVIA MD [address] [place] [address] 02-15-2023 04:03-0500 Body temperature 98.06 [degF] DR KATINA VALDIVIA MD [address] [place] [address] 02-15-2023 04:03-0500 Diastolic Blood Pressure Non-Invasive 79 mm[Hg] DR KATINA VALDIVIA MD [address] [place] [address] 02-15-2023 04:03-0500 Heart rate 86 /min DR KATINA VALDIVIA MD [address] [place] [address] 02-15-2023 04:03-0500 Reason For Taking VItal Signs DR KATINA VALDIVIA MD [address] [place] [address] 02-15-2023 04:03-0500 Respiratory rate 18 /min DR KATINA VALDIVIA MD [address] [place] [address] 02-15-2023 04:03-0500 Systolic Blood Pressure Non-Invasive 106 mm[Hg] DR KATINA VALDIVIA MD [address] [place] [address] 02-14-2023 23:31-0500 Heart rate 84 /min DR KATINA VALDIVIA MD [address] [place] [address] 02-14-2023 18:56-[address] KATINA VALDIVIA MD [address] [place] [address] 02-14-2023 18:56-[address] KATINA VALDIVIA MD [address] [place] [address] 02-14-2023 18:49-0500 Body height [address] KATINA VALDIVIA MD [address] [place] [address] 02-14-2023 18:49-0500 Body weight 57.[address] KATINA VALDIVIA MD [address] [place] [address] 02-14-2023 18:49-0500 Body weight 22.46 kg/m2 DR KATINA VALDIVIA MD [address] [place] [address] 02-13-2023 10:52-0500 Blood Pressure Cuff Size DR KATINA VALDIVIA MD [address] [place] [address] 02-13-2023 07:37-0500 Blood Pressure Cuff Size DR KATINA VALDIVIA MD [address] [place] [address] 02-13-2023 03:21-0500 Heart rate 83 /min DR KATINA VALDIVIA MD [address] [place] [address] 02-12-2023 12:07-0500 Blood Pressure Cuff Size DR KATINA VALDIVIA MD [address] [place] [address] 02-12-2023 05:32-0500 Heart rate 73 /min DR KATINA VALDIVIA MD [address] [place] [address] 02-12-2023 04:01-0500 Heart rate 78 /min DR KATINA VALDIVIA MD [address] [place] [address] 02-11-2023 23:48-0500 Heart rate 78 /min DR KATINA VALDIVIA MD [address] [place] [address] 02-11-2023 23:48-0500 Mean blood pressure 99 mm[Hg] DR KATINA VALDIVIA MD [address] 02-10-2023 19:29-0500 Heart rate 84 /min DR KATINA VALDIVIA MD [address] [place] [address] 02-10-2023 03:32-0500 Mean blood pressure 102 mm[Hg] DR KTAINA VALDIVIA MD [address] [place] [address] 02-09-2023 23:03-0500 Body height [address] KATINA VALDIVIA MD [address] [place] [address] 02-09-2023 23:03-0500 Body weight 57.[address] KATINA VALDIVIA MD [address] [place] [address] 02-09-2023 23:03-0500 Body weight 22.46 kg/m2 DR KATINA VALDIVIA MD [address] [place] [address] 02-08-2023 18:00-0500 Mean blood pressure 87 mm[Hg] DR KATINA VALDIVIA MD [address] [place] [address] 02-08-2023 16:22-0500 Body weight 62.[address] KATINA VALDIVIA MD [address] [place] [address] 01-26-2023 14:18-0500 Body weight 59.42 kg Obi Meier LPN [facility], [facility] 01-26-2023 14:18-0500 Diastolic blood pressure 78 mm[Hg] Obi Meier LPN [facility], [facility].; [facility]. 01-26-2023 14:18-0500 Heart rate 79 /min Obi Meier LPN [facility], [facility].; [facility], [facility] 01-26-2023 14:18-0500 Systolic blood pressure 145 mm[Hg] Obi Meier LPN [facility].; [facility]. 01-12-2023 10:38-0500 Diastolic blood pressure 72 mm[Hg] Chico Collier MD Work Phone: [facility].; [facility]. 01-12-2023 10:38-0500 Systolic blood pressure 159 mm[Hg] Chico Collier MD Work Phone: [facility].; [facility]. 01-12-2023 09:49-0500 Body height 152.4 cm Serena Zack TRACTOR TRAILER TECHNICIAN Work Phone: [facility].; [facility]. 01-12-2023 09:49-0500 Body mass index (BMI) [Ratio] 25.78 kg/m2 Serena Zack TRACTOR TRAILER TECHNICIAN Work Phone: [facility].; [facility]. 01-12-2023 09:49-0500 Body surface area Derived from formula 1.56 m2 Serena Zack TRACTOR TRAILER TECHNICIAN Work Phone: [facility].; [facility]. 01-12-2023 09:49-0500 Body weight 59.88 kg Serena Zack TRACTOR TRAILER TECHNICIAN Work Phone: [facility].; [employer]. 01-12-2023 09:49-0500 Diastolic blood pressure 83 mm[Hg] Serena Zack TRACTOR TRAILER TECHNICIAN Work Phone: [facility].; [facility]. 01-12-2023 09:49-0500 Heart rate 68 /min Serena Zack TRACTOR TRAILER TECHNICIAN Work Phone: [facility].; [facility]. 01-12-2023 09:49-0500 Systolic blood pressure 168 mm[Hg] Serena Zack TRACTOR TRAILER TECHNICIAN Work Phone: [facility].; [facility]. 04-30-2022 15:29-0400 Body height 152.4 cm Tavia Leavitt LPN [facility], [facility].; [facility] [facility], [facility]. 04-30-2022 15:29-0400 Body mass index (BMI) [Ratio] 23.24 kg/m2 Tavia Leavitt LPN [facility], [facility].; [facility] 04-30-2022 15:29-0400 Body surface area Derived from formula 1.5 m2 Tavia Leavitt LPN [facility], [facility].; [employer], [facility]. 04-30-2022 15:29-0400 Body weight 53.98 kg Tavia Leavitt LPN [facility], [facility].; [employer], [facility]. 04-30-2022 15:29-0400 Diastolic blood pressure 61 mm[Hg] Tavia Leavitt LPN [facility], [facility].; [facility] [employer], [facility]. 04-30-2022 15:29-0400 Heart rate 67 /min Tavia Leavitt LPN [facility], [facility].; [employer], [facility]. 04-30-2022 15:29-0400 Systolic blood pressure 157 mm[Hg] Tavia Leavitt LPN [facility], [facility].; [facility] [facility], [facility]. 01-06-2022 09:51-0500 Body height 152.4 cm Tavia Leavitt LPN [facility], [facility].; [employer] 01-06-2022 09:51-0500 Body mass index (BMI) [Ratio] 22.26 kg/m2 Tavia Leavitt LPN [facility], [facility].; [employer] 01-06-2022 09:51-0500 Body surface area Derived from formula 1.47 m2 Tavia Leavitt LPN [facility], [facility].; [employer], [facility]. 01-06-2022 09:51-0500 Body weight 51.71 kg Tavia Leavitt LPN [facility] [facility], [facility].; [employer] 01-06-2022 09:51-0500 Diastolic blood pressure 64 mm[Hg] Tavia Leavitt LPN [facility] [facility], [facility].; [employer], [facility]. 01-06-2022 09:51-0500 Heart rate 79 /min Tavia Leavitt LPN [facility].; [employer], [employer]. 01-06-2022 09:51-0500 Systolic blood pressure 125 mm[Hg] Tavia Leavitt LPN [place] [facility] [employer] 11-16-2021 15:51-0400 Body height 152.4 cm Serena Zack TRACTOR TRAILER TECHNICIAN Work Phone: [facility].; [employer] 11-16-2021 15:51-0400 Body mass index (BMI) [Ratio] 22.46 kg/m2 Serena Zack TRACTOR TRAILER TECHNICIAN Work Phone: [facility].; [employer], [employer]. 11-16-2021 15:51-0400 Body surface area Derived from formula 1.48 m2 Serena Zack TRACTOR TRAILER TECHNICIAN Work Phone: [facility].; [employer], [employer]. 11-16-2021 15:51-0400 Body weight 52.16 kg Serena Zack TRACTOR TRAILER TECHNICIAN Work Phone: [facility].; [employer], [employer]. 11-16-2021 15:51-0400 Diastolic blood pressure 79 mm[Hg] Serena Zack TRACTOR TRAILER TECHNICIAN Work Phone: [facility].; [employer], [employer]. 11-16-2021 15:51-0400 Heart rate 88 /min Serena Zack TRACTOR TRAILER TECHNICIAN Work Phone: [facility].; [facility]. 11-16-2021 15:51-0400 Systolic blood pressure 135 mm[Hg] Serena Zack TRACTOR TRAILER TECHNICIAN Work Phone: [facility].; [facility]. 07-08-2021 10:26-0400 Body height 152.4 cm Serena Zack TRACTOR TRAILER TECHNICIAN Work Phone: [facility].; [facility]. 07-08-2021 10:26-0400 Body mass index (BMI) [Ratio] 22.46 kg/m2 Serena Zack TRACTOR TRAILER TECHNICIAN Work Phone: [employer] 07-08-2021 10:26-0400 Body surface area Derived from formula 1.48 m2 Serena Zack TRACTOR TRAILER TECHNICIAN Work Phone: [employer].; [employer]. 07-08-2021 10:26-0400 Body weight 52.16 kg Serena Zack TRACTOR TRAILER TECHNICIAN Work Phone: [facility].; [employer]. 07-08-2021 10:26-0400 Diastolic blood pressure 88 mm[Hg] Serena Zack TRACTOR TRAILER TECHNICIAN Work Phone: [facility].; [employer]. 07-08-2021 10:26-0400 Systolic blood pressure 160 mm[Hg] Serena Zack TRACTOR TRAILER TECHNICIAN Work Phone: [employer].; [employer]. 01-05-2021 10:22-0500 Body height 152.4 cm Serena Zack TRACTOR TRAILER TECHNICIAN Work Phone: [employer].; [employer]. 01-05-2021 10:22-0500 Body mass index (BMI) [Ratio] 22.46 kg/m2 Serena Zack TRACTOR TRAILER TECHNICIAN Work Phone: [employer].; [employer]. 01-05-2021 10:22-0500 Body surface area Derived from formula 1.48 m2 Serena Zack TRACTOR TRAILER TECHNICIAN Work Phone: [employer].; [employer]. 01-05-2021 10:22-0500 Body weight 52.16 kg Serena Zack TRACTOR TRAILER TECHNICIAN Work Phone: [employer].; [employer]. 01-05-2021 10:22-0500 Diastolic blood pressure 86 mm[Hg] Serena Zack TRACTOR TRAILER TECHNICIAN Work Phone: [facility].; [employer]. 01-05-2021 10:22-0500 Heart rate 90 /min Serena Zack TRACTOR TRAILER TECHNICIAN Work Phone: [facility].; [employer] 01-05-2021 10:22-0500 Systolic blood pressure 151 mm[Hg] Serena Zack TRACTOR TRAILER TECHNICIAN Work Phone: [facility].; [facility]. 08-06-2020 11:07-0400 Body height 152.4 cm Serena Zack TRACTOR TRAILER TECHNICIAN Work Phone: [facility].; [facility]. 08-06-2020 11:07-0400 Body mass index (BMI) [Ratio] 23.44 kg/m2 Serena Zack TRACTOR TRAILER TECHNICIAN Work Phone: [facility].; [facility]. 08-06-2020 11:07-0400 Body surface area Derived from formula 1.5 m2 Serena Zack TRACTOR TRAILER TECHNICIAN Work Phone: [facility].; [employer]. 08-06-2020 11:07-0400 Body weight 54.43 kg Serena Zack TRACTOR TRAILER TECHNICIAN Work Phone: [facility].; [employer]. 08-06-2020 11:07-0400 Diastolic blood pressure 84 mm[Hg] Serena Zack TRACTOR TRAILER TECHNICIAN Work Phone: [facility].; [employer]. 08-06-2020 11:07-0400 Heart rate 79 /min Serena Zack TRACTOR TRAILER TECHNICIAN Work Phone: [facility].; [employer]. 08-06-2020 11:07-0400 Systolic blood pressure 154 mm[Hg] Serena Zcak TRACTOR TRAILER TECHNICIAN Work Phone: [facility].; [facility]. 07-28-2020 10:29-0400 Body weight 54.43 kg Serena Zack TRACTOR TRAILER TECHNICIAN Work Phone: [facility].; [employer]. 07-28-2020 10:29-0400 Diastolic blood pressure 82 mm[Hg] Serena Zack TRACTOR TRAILER TECHNICIAN Work Phone: [facility].; [employer] 07-28-2020 10:29-0400 Heart rate 80 /min Serena Zack TRACTOR TRAILER TECHNICIAN Work Phone: [facility].; [employer]. 07-28-2020 10:29-0400 Systolic blood pressure 157 mm[Hg] Serena Zack TRACTOR TRAILER TECHNICIAN Work Phone: [facility].; [employer]. 06-30-2020 10:23-0400 Body height 152.4 cm Serena Zack TRACTOR TRAILER TECHNICIAN Work Phone: [facility].; [employer]. 06-30-2020 10:23-0400 Body mass index (BMI) [Ratio] 23.24 kg/m2 Serena Zack TRACTOR TRAILER TECHNICIAN Work Phone: [employer].; [employer] 06-30-2020 10:23-0400 Body surface area Derived from formula 1.5 m2 Serena Zack TRACTOR TRAILER TECHNICIAN Work Phone: [facility].; [employer]. 06-30-2020 10:23-0400 Body weight 53.98 kg Serena Zack TRACTOR TRAILER TECHNICIAN Work Phone: [facility].; [employer]. 06-30-2020 10:23-0400 Diastolic blood pressure 107 mm[Hg] Serena Zack TRACTOR TRAILER TECHNICIAN Work Phone: [facility].; [employer]. 06-30-2020 10:23-0400 Heart rate 87 /min Serena Zack TRACTOR TRAILER TECHNICIAN Work Phone: [facility].; [employer]. 06-30-2020 10:23-0400 Systolic blood pressure 177 mm[Hg] Serena Zack TRACTOR TRAILER TECHNICIAN Work Phone: [employer].; [employer] 12-31-2019 09:48-0500 Body height 152.4 cm Serena Zack TRACTOR TRAILER TECHNICIAN Work Phone: [employer].; [employer] 12-31-2019 09:48-0500 Body mass index (BMI) [Ratio] 21.29 kg/m2 Serena Zack TRACTOR TRAILER TECHNICIAN Work Phone: [employer].; [employer] 12-31-2019 09:48-0500 Body surface area Derived from formula 1.44 m2 Serena Zack TRACTOR TRAILER TECHNICIAN Work Phone: [employer].; [employer]. 12-31-2019 09:48-0500 Body weight 49.44 kg Serena Zack TRACTOR TRAILER TECHNICIAN Work Phone: [employer].; [employer]. 12-31-2019 09:48-0500 Diastolic blood pressure 87 mm[Hg] Serena Zack TRACTOR TRAILER TECHNICIAN Work Phone: [employer].; [employer]. 12-31-2019 09:48-0500 Heart rate 98 /min Serena Zack TRACTOR TRAILER TECHNICIAN Work Phone: [employer].; [employer]. 12-31-2019 09:48-0500 Systolic blood pressure 144 mm[Hg] Serena Zack TRACTOR TRAILER TECHNICIAN Work Phone: [employer].; [employer] 10-01-2019 09:13-0400 Body height 157.48 cm Serena Zack TRACTOR TRAILER TECHNICIAN Work Phone: [employer].; [employer] 10-01-2019 09:13-0400 Body mass index (BMI) [Ratio] 19.75 kg/m2 Serena Zack TRACTOR TRAILER TECHNICIAN Work Phone: [employer]. 10-01-2019 09:13-0400 Body surface area Derived from formula 1.47 m2 Serena Zack TRACTOR TRAILER TECHNICIAN Work Phone: [employer].; [employer] 10-01-2019 09:13-0400 Body weight 48.99 kg Serena Zack TRACTOR TRAILER TECHNICIAN Work Phone: [employer] [employer]. 10-01-2019 09:13-0400 Diastolic blood pressure 99 mm[Hg] Serena Zack TRACTOR TRAILER TECHNICIAN Work Phone: [employer] 10-01-2019 09:13-0400 Heart rate 73 /min Serena Zack TRACTOR TRAILER TECHNICIAN Work Phone: [employer] 10-01-2019 09:13-0400 Systolic blood pressure 177 mm[Hg] Serena Zack TRACTOR TRAILER TECHNICIAN Work Phone: [employer] 06-28-2019 11:35-0400 Diastolic blood pressure 87 mm[Hg] Chico Collier MD Work Phone: [employer] 06-28-2019 11:35-0400 Systolic blood pressure 150 mm[Hg] Chico Collier MD Work Phone: [employer] [employer] [facility] [employer]. 06-28-2019 10:21-0400 Body height 157.48 cm Serena Zack TRACTOR TRAILER TECHNICIAN Work Phone: [employer] 06-28-2019 10:21-0400 Body mass index (BMI) [Ratio] 21.22 kg/m2 Serena Zack TRACTOR TRAILER TECHNICIAN Work Phone: [employer] 06-28-2019 10:21-0400 Body surface area Derived from formula 1.52 m2 Serena Zack TRACTOR TRAILER TECHNICIAN Work Phone: [employer].; [employer]. 06-28-2019 10:21-0400 Body weight 52.62 kg Serena Zack TRACTOR TRAILER TECHNICIAN Work Phone: [employer].; [employer] 06-28-2019 10:21-0400 Diastolic blood pressure 91 mm[Hg] Serena Zack TRACTOR TRAILER TECHNICIAN Work Phone: [employer].; [employer] 06-28-2019 10:21-0400 Heart rate 78 /min Serena Zack TRACTOR TRAILER TECHNICIAN Work Phone: [employer].; [employer] 06-28-2019 10:21-0400 Systolic blood pressure 169 mm[Hg] Serena Zack TRACTOR TRAILER TECHNICIAN Work Phone: [employer] 12-28-2018 09:51-0500 Body height 157.48 cm Serena Zack TRACTOR TRAILER TECHNICIAN Work Phone: [employer].; [employer] 12-28-2018 09:51-0500 Body mass index (BMI) [Ratio] 20.48 kg/m2 Serena Zack TRACTOR TRAILER TECHNICIAN Work Phone: [employer] 12-28-2018 09:51-0500 Body surface area Derived from formula 1.49 m2 Serena Zack TRACTOR TRAILER TECHNICIAN Work Phone: [employer].; [employer] 12-28-2018 09:51-0500 Body weight 50.8 kg Serena Zack TRACTOR TRAILER TECHNICIAN Work Phone: [employer] 12-28-2018 09:51-0500 Diastolic blood pressure 81 mm[Hg] Serena Zack TRACTOR TRAILER TECHNICIAN Work Phone: [employer].; [employer] 12-28-2018 09:51-0500 Heart rate 70 /min Serena Zack TRACTOR TRAILER TECHNICIAN Work Phone: [employer].; [employer] 12-28-2018 09:51-0500 Systolic blood pressure 145 mm[Hg] Serena Zack TRACTOR TRAILER TECHNICIAN Work Phone: [employer].; [employer] 12-23-2017 09:42-0500 Body height 157.48 cm Serena Zack TRACTOR TRAILER TECHNICIAN Work Phone: [employer].; [employer] 12-23-2017 09:42-0500 Body mass index (BMI) [Ratio] 20.3 kg/m2 Serena Zack TRACTOR TRAILER TECHNICIAN Work Phone: [employer].; [employer] 12-23-2017 09:42-0500 Body surface area Derived from formula 1.49 m2 Serena Zack TRACTOR TRAILER TECHNICIAN Work Phone: [employer].; [employer] 12-23-2017 09:42-0500 Body weight 50.35 kg Serena Zack TRACTOR TRAILER TECHNICIAN Work Phone: [employer].; [employer] 12-23-2017 09:42-0500 Diastolic blood pressure 89 mm[Hg] Serena Zack TRACTOR TRAILER TECHNICIAN Work Phone: [employer].; [employer] 12-23-2017 09:42-0500 Heart rate 71 /min Serena Zack TRACTOR TRAILER TECHNICIAN Work Phone: [employer].; [employer] 12-23-2017 09:42-0500 Systolic blood pressure 148 mm[Hg] Serena Zack TRACTOR TRAILER TECHNICIAN Work Phone: [employer].; [employer] 09-19-2017 11:14-0400 Body height 157.48 cm Serena Zack TRACTOR TRAILER TECHNICIAN Work Phone: [employer].; [employer] 09-19-2017 11:14-0400 Body mass index (BMI) [Ratio] 20.12 kg/m2 Serena Zack TRACTOR TRAILER TECHNICIAN Work Phone: [employer].; [employer] 09-19-2017 11:14-0400 Body surface area Derived from formula 1.48 m2 Serena Zack TRACTOR TRAILER TECHNICIAN Work Phone: [employer].; [employer] 09-19-2017 11:14-0400 Body weight 49.9 kg Serena Zack TRACTOR TRAILER TECHNICIAN Work Phone: [employer].; [employer] 09-19-2017 11:14-0400 Diastolic blood pressure 90 mm[Hg] Serena Zack TRACTOR TRAILER TECHNICIAN Work Phone: [employer].; [employer] 09-19-2017 11:14-0400 Heart rate 71 /min Serena Zack TRACTOR TRAILER TECHNICIAN Work Phone: [employer].; [employer] 09-19-2017 11:14-0400 Systolic blood pressure 152 mm[Hg] Serena Zack TRACTOR TRAILER TECHNICIAN Work Phone: [employer].; [employer] 09-05-2017 09:00-0400 Body height 157.48 cm Serena Zack TRACTOR TRAILER TECHNICIAN Work Phone: [employer].; [employer] 09-05-2017 09:00-0400 Body mass index (BMI) [Ratio] 20.48 kg/m2 Serena Zack TRACTOR TRAILER TECHNICIAN Work Phone: [employer].; [employer] 09-05-2017 09:00-0400 Body surface area Derived from formula 1.49 m2 Serena Zack TRACTOR TRAILER TECHNICIAN Work Phone: [employer].; [employer] 09-05-2017 09:00-0400 Body weight 50.8 kg Serena Zack TRACTOR TRAILER TECHNICIAN Work Phone: [employer].; [employer] 09-05-2017 09:00-0400 Diastolic blood pressure 83 mm[Hg] Serena Zack TRACTOR TRAILER TECHNICIAN Work Phone: [employer] 09-05-2017 09:00-0400 Heart rate 65 /min Serena Zack TRACTOR TRAILER TECHNICIAN Work Phone: [employer] 09-05-2017 09:00-0400 Systolic blood pressure 150 mm[Hg] Serena Zack TRACTOR TRAILER TECHNICIAN Work Phone: [employer].; [employer] 08-29-2017 08:59-0400 Body height 157.48 cm Serena Zack TRACTOR TRAILER TECHNICIAN Work Phone: [employer].; [employer] 08-29-2017 08:59-0400 Body mass index (BMI) [Ratio] 20.48 kg/m2 Serena Zack TRACTOR TRAILER TECHNICIAN Work Phone: [employer].; [employer] 08-29-2017 08:59-0400 Body surface area Derived from formula 1.49 m2 Serena Zack TRACTOR TRAILER TECHNICIAN Work Phone: [employer].; [employer] 08-29-2017 08:59-0400 Body weight 50.8 kg Serena Zack TRACTOR TRAILER TECHNICIAN Work Phone: [employer].; [employer] 08-29-2017 08:59-0400 Diastolic blood pressure 91 mm[Hg] Serena Zack TRACTOR TRAILER TECHNICIAN Work Phone: [employer].; [employer] 08-29-2017 08:59-0400 Heart rate 75 /min Serena Zack TRACTOR TRAILER TECHNICIAN Work Phone: [employer].; [employer] 08-29-2017 08:59-0400 Systolic blood pressure 161 mm[Hg] Serena Zack TRACTOR TRAILER TECHNICIAN Work Phone: [employer] 06-24-2017 10:32-0400 Body height 157.48 cm Serena Zack TRACTOR TRAILER TECHNICIAN Work Phone: [employer] 06-24-2017 10:32-0400 Body mass index (BMI) [Ratio] 20.3 kg/m2 Serena Zack TRACTOR TRAILER TECHNICIAN Work Phone: [employer] 06-24-2017 10:32-0400 Body surface area Derived from formula 1.49 m2 Serena Zack TRACTOR TRAILER TECHNICIAN Work Phone: [employer].; [employer] 06-24-2017 10:32-0400 Body weight 50.35 kg Serena Zack TRACTOR TRAILER TECHNICIAN Work Phone: [employer] 06-24-2017 10:32-0400 Diastolic blood pressure 94 mm[Hg] Serena Zack TRACTOR TRAILER TECHNICIAN Work Phone: [employer].; [employer] 06-24-2017 10:32-0400 Heart rate 77 /min Serena Zack TRACTOR TRAILER TECHNICIAN Work Phone: [employer] 06-24-2017 10:32-0400 Systolic blood pressure 175 mm[Hg] Serena Zack TRACTOR TRAILER TECHNICIAN Work Phone: [employer] 03-24-2017 10:35-0500 Body height 157.48 cm Neilee L Vess TRACTOR TRAILER TECHNICIAN [employer] 03-24-2017 10:35-0500 Body mass index (BMI) [Ratio] 20.12 kg/m2 Neilee L Vess TRACTOR TRAILER TECHNICIAN [employer] 03-24-2017 10:35-0500 Body surface area Derived from formula 1.48 m2 Neilee L Vess TRACTOR TRAILER TECHNICIAN [employer] [employer] [facility] [employer]. 03-24-2017 10:35-0500 Body weight 49.9 kg Neilee L Vess TRACTOR TRAILER TECHNICIAN [employer] 03-24-2017 10:35-0500 Diastolic blood pressure 80 mm[Hg] Neilee L Vess TRACTOR TRAILER TECHNICIAN [employer] 03-24-2017 10:35-0500 Heart rate 80 /min Neilee L Vess TRACTOR TRAILER TECHNICIAN [employer]. 03-24-2017 10:35-0500 Systolic blood pressure 144 mm[Hg] Neilee L Vess TRACTOR TRAILER TECHNICIAN [employer] 12-22-2016 09:49-0500 Body height 157.48 cm Serena Zack TRACTOR TRAILER TECHNICIAN Work Phone: [employer] 12-22-2016 09:49-0500 Body mass index (BMI) [Ratio] 21.03 kg/m2 Serena Zack TRACTOR TRAILER TECHNICIAN Work Phone: [employer] 12-22-2016 09:49-0500 Body surface area Derived from formula 1.51 m2 Serena Zack TRACTOR TRAILER TECHNICIAN Work Phone: [employer] 12-22-2016 09:49-0500 Body weight 52.16 kg Serena Zack TRACTOR TRAILER TECHNICIAN Work Phone: [employer] 12-22-2016 09:49-0500 Diastolic blood pressure 91 mm[Hg] Serena Zack TRACTOR TRAILER TECHNICIAN Work Phone: [employer] 12-22-2016 09:49-0500 Heart rate 77 /min Serena Zack TRACTOR TRAILER TECHNICIAN Work Phone: [employer] 12-22-2016 09:49-0500 Systolic blood pressure 148 mm[Hg] Serena Zack TRACTOR TRAILER TECHNICIAN Work Phone: [employer] [employer] [employer]. 07-29-2016 09:04-0400 Body height 157.48 cm Neilee L Vess TRACTOR TRAILER TECHNICIAN [employer] 07-29-2016 09:04-0400 Body mass index (BMI) [Ratio] 21.58 kg/m2 Neilee L Vess TRACTOR TRAILER TECHNICIAN [employer] 07-29-2016 09:04-0400 Body surface area Derived from formula 1.53 m2 Neilee L Vess TRACTOR TRAILER TECHNICIAN [employer] 07-29-2016 09:04-0400 Body weight 53.52 kg Neilee L Vess TRACTOR TRAILER TECHNICIAN [employer] [employer]. 07-29-2016 09:04-0400 Diastolic blood pressure 85 mm[Hg] Neilee L Vess TRACTOR TRAILER TECHNICIAN [employer]. 07-29-2016 09:04-0400 Heart rate 70 /min Neilee L Vess TRACTOR TRAILER TECHNICIAN [employer] 07-29-2016 09:04-0400 Systolic blood pressure 154 mm[Hg] Neilee L Vess TRACTOR TRAILER TECHNICIAN [employer] 12-22-2015 09:53-0500 Body height 157.48 cm Serena Zakc TRACTOR TRAILER TECHNICIAN Work Phone: [employer] [employer]. 12-22-2015 09:53-0500 Body mass index (BMI) [Ratio] 23.59 kg/m2 Serena Zack TRACTOR TRAILER TECHNICIAN Work Phone: [employer].; [employer]. 12-22-2015 09:53-0500 Body surface area Derived from formula 1.59 m2 Serena Zack TRACTOR TRAILER TECHNICIAN Work Phone: [employer].; [employer]. 12-22-2015 09:53-0500 Body weight 58.51 kg Serena Zack TRACTOR TRAILER TECHNICIAN Work Phone: [employer] 12-22-2015 09:53-0500 Diastolic blood pressure 92 mm[Hg] Serena Zack TRACTOR TRAILER TECHNICIAN Work Phone: [employer].; [employer] 12-22-2015 09:53-0500 Heart rate 81 /min Serena Zack TRACTOR TRAILER TECHNICIAN Work Phone: [employer] 12-22-2015 09:53-0500 Systolic blood pressure 138 mm[Hg] Serena Zack TRACTOR TRAILER TECHNICIAN Work Phone: [employer].; [employer] 05-19-2015 10:42-0400 Body height 157.48 cm Serena Zack TRACTOR TRAILER TECHNICIAN Work Phone: [employer] 05-19-2015 10:42-0400 Body mass index (BMI) [Ratio] 25.61 kg/m2 Serena Zack TRACTOR TRAILER TECHNICIAN Work Phone: [employer] 05-19-2015 10:42-0400 Body surface area Derived from formula 1.64 m2 Serena Zack TRACTOR TRAILER TECHNICIAN Work Phone: [employer].; [employer] 05-19-2015 10:42-0400 Body weight 63.5 kg Serena Zack TRACTOR TRAILER TECHNICIAN Work Phone: [employer] 05-19-2015 10:42-0400 Diastolic blood pressure 91 mm[Hg] Serena Zack TRACTOR TRAILER TECHNICIAN Work Phone: [employer] 05-19-2015 10:42-0400 Heart rate 71 /min Serena Zack TRACTOR TRAILER TECHNICIAN Work Phone: [employer] 05-19-2015 10:42-0400 Systolic blood pressure 180 mm[Hg] Serena Zack TRACTOR TRAILER TECHNICIAN Work Phone: [employer] [employer]. 11-28-2014 10:00-0400 Body height 157.48 cm Neilee L Vess TRACTOR TRAILER TECHNICIAN [employer] 11-28-2014 10:00-0400 Body mass index (BMI) [Ratio] 24.69 kg/m2 Neilee L Vess TRACTOR TRAILER TECHNICIAN [employer] 11-28-2014 10:00-0400 Body surface area Derived from formula 1.62 m2 Neilee L Vess TRACTOR TRAILER TECHNICIAN [employer], [employer]. 11-28-2014 10:00-0400 Body weight 61.24 kg Neilee L Vess TRACTOR TRAILER TECHNICIAN [employer], [employer], [employer]. 11-28-2014 10:00-0400 Diastolic blood pressure 78 mm[Hg] Neilee L Vess TRACTOR TRAILER TECHNICIAN [employer], [employer]. 11-28-2014 10:00-0400 Heart rate 69 /min Neilee L Vess TRACTOR TRAILER TECHNICIAN [employer], [employer].; [employer], [employer]. 11-28-2014 10:00-0400 Systolic blood pressure 152 mm[Hg] Neilee L Vess TRACTOR TRAILER TECHNICIAN [employer] 05-29-2014 16:15-0400 Body height 157.48 cm Serena Zack TRACTOR TRAILER TECHNICIAN Work Phone: [employer] 05-29-2014 16:15-0400 Body mass index (BMI) [Ratio] 26.52 kg/m2 Serena Zack TRACTOR TRAILER TECHNICIAN Work Phone: [employer].; [employer] 05-29-2014 16:15-0400 Body surface area Derived from formula 1.67 m2 Serena Zack TRACTOR TRAILER TECHNICIAN Work Phone: [employer]. 05-29-2014 16:15-0400 Body weight 65.77 kg Serena Zack TRACTOR TRAILER TECHNICIAN Work Phone: [employer] 05-29-2014 16:15-0400 Diastolic blood pressure 97 mm[Hg] Serena Zack TRACTOR TRAILER TECHNICIAN Work Phone: [employer] 05-29-2014 16:15-0400 Heart rate 72 /min Serena Zack TRACTOR TRAILER TECHNICIAN Work Phone: [employer] 05-29-2014 16:15-0400 Systolic blood pressure 192 mm[Hg] Serena Zack TRACTOR TRAILER TECHNICIAN Work Phone: [employer], [employer]. 11-22-2013 09:50-0400 Body height 157.48 cm Neilee L Vess TRACTOR TRAILER TECHNICIAN [employer], [employer]. 11-22-2013 09:50-0400 Body mass index (BMI) [Ratio] 25.97 kg/m2 Neilee L Vess TRACTOR TRAILER TECHNICIAN [employer], [employer].; [employer], [employer]. 11-22-2013 09:50-0400 Body surface area Derived from formula 1.65 m2 Neilee L Vess TRACTOR TRAILER TECHNICIAN [employer], [employer].; [employer], [employer]. 11-22-2013 09:50-0400 Body weight 64.41 kg Neilee L Vess TRACTOR TRAILER TECHNICIAN [employer] 11-22-2013 09:50-0400 Diastolic blood pressure 82 mm[Hg] Neilee L Vess TRACTOR TRAILER TECHNICIAN [employer], [employer]. 11-22-2013 09:50-0400 Heart rate 75 /min Neilee L Vess TRACTOR TRAILER TECHNICIAN [employer], [employer].; [employer], [employer]. 11-22-2013 09:50-0400 Systolic blood pressure 145 mm[Hg] Neilee L Vess TRACTOR TRAILER TECHNICIAN [employer], [employer]. 11-02-2012 13:58-0400 Body height 157.48 cm Neilee L Vess TRACTOR TRAILER TECHNICIAN [employer] [employer] [facility]. 11-02-2012 13:58-0400 Body mass index (BMI) [Ratio] 24.69 kg/m2 Neilee L Vess TRACTOR TRAILER TECHNICIAN [employer] [facility].; [employer] [facility]. 11-02-2012 13:58-0400 Body surface area Derived from formula 1.62 m2 Neilee L Vess TRACTOR TRAILER TECHNICIAN [employer] [facility].; [employer] [facility]. 11-02-2012 13:58-0400 Body weight 61.24 kg Neilee L Vess TRACTOR TRAILER TECHNICIAN [employer] [facility].; [employer] [facility]. 11-02-2012 13:58-0400 Diastolic blood pressure 83 mm[Hg] Neilee L Vess TRACTOR TRAILER TECHNICIAN [employer] [facility].; [employer], [facility]. 11-02-2012 13:58-0400 Heart rate 65 /min Neilee L Vess TRACTOR TRAILER TECHNICIAN [employer] [facility].; [employer] [facility]. 11-02-2012 13:58-0400 Systolic blood pressure 169 mm[Hg] Neilee L Vess TRACTOR TRAILER TECHNICIAN [employer] [facility].; [employer] [facility]. 09-09-2011 09:57-0400 Body height 157.48 cm Neilee L Vess TRACTOR TRAILER TECHNICIAN [employer] [facility].; [employer] [facility]. 09-09-2011 09:57-0400 Body mass index (BMI) [Ratio] 23.41 kg/m2 Neilee L Vess TRACTOR TRAILER TECHNICIAN [employer] [facility].; [employer] [facility]. 09-09-2011 09:57-0400 Body surface area Derived from formula 1.58 m2 Neilee L Vess TRACTOR TRAILER TECHNICIAN [employer] [facility].; [employer] [facility]. 09-09-2011 09:57-0400 Body weight 58.06 kg Neilee L Vess TRACTOR TRAILER TECHNICIAN [employer] [employer].; [employer] [facility]. 09-09-2011 09:57-0400 Diastolic blood pressure 79 mm[Hg] Neilee L Vess TRACTOR TRAILER TECHNICIAN [employer] 09-09-2011 09:57-0400 Heart rate 61 /min Neilee L Vess TRACTOR TRAILER TECHNICIAN [employer] 09-09-2011 09:57-0400 Systolic blood pressure 145 mm[Hg] Kevin John Balderas LPN [employer] 08-26-2010 10:21-0400 Body height 160.02 cm Serena Dixon TRACTOR TRAILER TECHNICIAN Work Phone: [employer] 08-26-2010 10:21-0400 Body mass index (BMI) [Ratio] 22.32 kg/m2 Serena Zack TRACTOR TRAILER TECHNICIAN Work Phone: [employer] 08-26-2010 10:21-0400 Body surface area Derived from formula 1.59 m2 Serena Zack TRACTOR TRAILER TECHNICIAN Work Phone: [employer] 08-26-2010 10:21-0400 Body weight 57.15 kg Serena Zack TRACTOR TRAILER TECHNICIAN Work Phone: [employer].; [employer] 08-26-2010 10:21-0400 Diastolic blood pressure 81 mm[Hg] Serena Dumonty TRACTOR TRAILER TECHNICIAN Work Phone: [employer] 08-26-2010 10:21-0400 Heart rate 58 /min Serena Zack TRACTOR TRAILER TECHNICIAN Work Phone: [employer] 08-26-2010 10:21-0400 Systolic blood pressure 138 mm[Hg] Serean Dumonty TRACTOR TRAILER TECHNICIAN Work Phone: [employer] Encounters Encounter Date Encounter Type Care Provider Facility Start: 2024 End: 2024 Emergency department patient visit Isis Mae Facility:[facility] Start: 12-05-2024 ambulatory Janeth Sanders y:[facility] Start: 12-03-2024 End: 12-03-2024 ambulatory Jennifer Argueta NP Facility:[facility] Start: 10-04-2024 End: 10-04-2024 [place] Collier MD [facility] Start: 09-23-2024 End: 09-23-2024 Emergency department patient visit Dr. Joel Muniz MD Work Phone: -Emergency Department Work Phone: Start: 09-13-2024 Non-patient / Non-visit Dr. Checo Reid MD -[facility] Work Phone: Start: 09-13-2024 End: 09-13-[address] Joel Muniz MD Work Phone: -[facility]iovascular Services Start: 09-13-2024 End: 09-13-2024 Patient encounter procedure Jennifer Argueta CYLINDER INSPECTOR-C -Cardiovascular Services Work Phone: Start: 09-13-2024 End: 09-13-2024 ambulatory Jennifer Argueta NP Facility:[facility] Start: 09-03-2024 End: 09-03-2024 Patient encounter procedure Jennifer Argueta CYLINDER INSPECTOR-C -[facility] Work Phone: Start: 09-03-2024 End: 09-03-[address] Joel Muniz MD Work Phone: -[facility] Start: 08-17-2024 End: 08-17-2024 ambulatory RAHUL SHETTY DO Facility:[facility] Start: 08-17-2024 End: 08-17-2024 Patient encounter procedure RAHUL SHETTY DO [facility] Start: 08-15-2024 ambulatory Rahul Gallegos ity:[facility] Start: 08-15-[address] Rahul isaac MD -[facility] Work Phone: Start: 08-02-2024 End: 08-02-[address] Yahaira Winn MD Work Phone: -[facility] Start: 08-02-2024 End: 08-02-2024 Departed Referred [facility] Work Phone: Start: 08-02-[address] Rahul isaac DO -Cardiovascular Services Work Phone: Start: 08-02-2024 End: 08-02-2024 ambulatory [facility] Facility:[facility] Start: 07-31-[address] Rahul isaac MD -[facility] Work Phone: Start: 07-30-2024 End: 07-31-2024 ambulatory Rahul Diogenes [facility] Facility:[facility] Start: 07-30-[address] Rhaul isaac MD -[facility] Work Phone: Start: 07-27-2024 End: 07-27-[address] Jose Matthews MD -[facility] Work Phone: Start: 07-27-2024 End: 07-27-[address] Joel Muniz MD Work Phone: [facility] Work Phone: Start: 07-27-[address] Rahul isaac MD -[facility] Work Phone: Start: 07-27-2024 End: 07-27-2024 ambulatory Rahul Diogenes SAAVEDRA Facility:[facility] Start: 07-13-2024 End: 07-13-[address] Jose Matthews MD -[facility] Work Phone: Start: 07-13-2024 End: 07-13-[address] Joel Muniz MD Work Phone: [facility] Work Phone: Start: 07-06-2024 End: 07-06-[address] Jose Matthews MD -[facility] Work Phone: Start: 07-06-2024 End: 07-06-[address] Joel Muniz MD Work Phone: [facility] Work Phone: Start: 07-03-2024 End: 07-03-2024 Patient encounter procedure Barbara PEREIRA -[facility] Work Phone: Start: 07-03-2024 End: 07-03-[address] Joel Muniz MD Work Phone: [facility] Work Phone: Start: 07-03-2024 End: 07-03-[address] Rahul Shetty MD -[facility] Work Phone: Start: 07-03-[address] Rahul isaac MD -[facility] Work Phone: Start: 07-03-2024 End: 07-03-2024 ambulatory Rahul SAAVEDRA Facility:[facility] Start: 06-29-2024 ambulatory Rahul SAAVEDRA [facility] ity:[facility] Start: 06-29-[address] [facility] Work Phone: Start: 06-28-2024 End: 06-28-[address] Jose Matthews MD -[facility] Work Phone: Start: 06-28-2024 End: 06-28-[address] Joel Muniz MD Work Phone: [facility] Work Phone: Start: 06-28-2024 End: 06-28-[address] Rahul Shetty MD -[facility] Work Phone: Start: 06-28-[address] [facility] Work Phone: Start: 06-27-2024 End: 06-28-[address] Joel Muniz MD Work Phone: [facility] Work Phone: Start: 06-27-2024 End: 06-27-[address] Rahul Shetty MD -[facility] Work Phone: Start: 06-27-[address] Rahul isaac MD -[facility] Work Phone: Start: 06-27-2024 End: 06-27-2024 ambulatory Rahul Shetty OLS Facility:[facility] Start: 06-25-2024 End: 06-26-2024 Emergency department patient visit Dr. Joel Muniz MD Work Phone: -Emergency Department Work Phone: Start: 03-07-2024 [facility] Start: 02-06-2024 End: 02-06-2024 Chico Collier MD Work Phone: [employer] Start: 2023 End: 2023 [place] Collier MD Work Phone: [employer] Start: 04-07-2023 End: 04-07-2023 ambulatory [facility] Work Phone: Start: 04-07-2023 End: 04-07-2023 Patient encounter procedure [facility], [facility] [facility] Work Phone: Start: 03-15-2023 End: 03-15-2023 Chico Collier MD Work Phone: [employer] Start: 03-15-2023 Chico mercado MD Work Phone: [employer] Start: 03-09-2023 End: 03-09-2023 Chico Collier MD Work Phone: [employer] Start: 02-15-2023 End: 03-03-2023 Evaluation and management of inpatient STAN SCHEATZLE DO Facility: Start: 02-15-2023 End: 03-03-2023 Evaluation and management of inpatient STAN SCHEATZLE DO Arabella Singer Start: 02-15-[address] CHICO COLLIER MD Facility:A Start: 02-08-2023 End: 02-15-2023 Evaluation and management of inpatient DR CHICO COLLIER MD Facility:A Start: 02-08-2023 End: 02-15-2023 Evaluation and management of inpatient DR KATINA VALDIVIA MD [facility] Start: 02-08-2023 End: 02-08-2023 Emergency department patient visit GREY CONNOR [facility] Start: 01-27-2023 End: 01-27-2023 Chico Collier MD Work Phone: [employer] Start: 01-26-2023 End: 01-26-2023 ambulatory CHICO COLLIER [facility] Start: 01-26-2023 End: 01-26-2023 Office outpatient visit 15 minutes Chico Collier MD Work Phone: [employer] Start: 01-12-2023 End: 01-14-2023 Patient encounter status Chico Collier MD Work Phone: [employer]; [employer] Start: 01-12-2023 End: 01-14-2023 Chico Collier MD Work Phone: [employer] Start: 12-27-2022 End: 12-27-2022 Chico Collier MD Work Phone: [employer] Start: 12-08-2022 End: 12-14-2022 Chico Collier MD Work Phone: [employer] Start: 06-14-2022 End: 06-14-2022 Chico Collier MD Work Phone: [employer] Start: 06-10-2022 End: 06-11-2022 Emergency department patient visit CHICO COLLIER [facility] Start: 05-21-2022 End: 05-21-2022 Chico Collier MD Work Phone: [employer] Start: 05-19-2022 End: 05-19-2022 Chico Collier MD Work Phone: [employer] Start: 05-19-2022 End: 05-19-[facility] Start: 05-05-2022 End: 05-06-2022 Chico Collier MD Work Phone: [employer] Start: 04-30-2022 End: 04-30-2022 Chico Collier MD Work Phone: [employer] Start: 04-24-2022 End: 04-24-2022 [facility] Start: 01-28-2022 End: 01-28-2022 Chico Collier MD Work Phone: [employer] Start: 01-06-2022 End: 01-06-2022 Patient encounter status Chico Collier MD Work Phone: [employer]; [employer] Start: 01-06-2022 End: 01-06-2022 Chico Collier MD Work Phone: [employer] Start: 12-28-2021 End: 12-28-2021 Chico Collier MD Work Phone: [employer] Start: 12-24-2021 End: 12-24-2021 Chico Collier MD Work Phone: [employer] Start: 11-18-2021 End: 11-18-2021 Chico Collier MD Work Phone: [employer] Start: 11-16-2021 End: 11-18-2021 Chico Collier MD Work Phone: [employer] Start: 07-08-2021 End: 07-08-2021 Chico Collier MD Work Phone: [employer] Start: 01-05-2021 End: 01-05-2021 Patient encounter status Chico Collier MD Work Phone: [employer] Start: 01-05-2021 End: 01-05-2021 Chico Collier MD Work Phone: [employer] Start: 08-06-2020 End: 08-06-2020 Chico Collier MD Work Phone: [employer]. Start: 07-28-2020 End: 07-28-2020 Chico Collier MD Work Phone: [employer]. Start: 07-28-2020 End: 07-28-2020 Chico Collier MD Work Phone: [employer]. Start: 06-30-2020 End: 06-30-2020 Chico Collier MD Work Phone: [employer] Start: 12-31-2019 End: 12-31-2019 Patient encounter status Serena Dixon ALEX Work Phone: [employer]; [employer] Start: 12-31-2019 End: 12-31-2019 Chico Collier MD Work Phone: [employer]. Start: 12-24-2019 End: 12-24-2019 Chico Collier MD Work Phone: [employer]. Start: 11-27-2019 End: 11-28-2019 Chico Collier MD Work Phone: [employer] Start: 10-01-2019 End: 10-01-2019 Preprocedural examination done Chico Collier MD Work Phone: [employer]; [employer]. Start: 10-01-2019 End: 10-01-2019 Chico Collier MD Work Phone: [employer] Start: 06-28-2019 End: 06-28-2019 Office outpatient visit 25 minutes Chico Collier MD Work Phone: [employer] Start: 06-28-2019 End: 06-28-2019 Chico Collier MD Work Phone: [employer] Start: 12-28-2018 End: 12-28-2018 Patient encounter status Chico Collier MD Work Phone: [employer]; [employer] Start: 12-28-2018 End: 12-28-2018 Chico Collier MD Work Phone: [employer] Start: 12-22-2018 End: 12-22-2018 Chico Collier MD Work Phone: [employer] Start: 11-23-2018 End: 11-24-2018 Chico Collier MD Work Phone: [employer] Start: 12-23-2017 End: 12-23-2017 Patient encounter status Chico Collier MD Work Phone: [employer]; [employer]. Start: 12-23-2017 End: 12-23-2017 Chico Collier MD Work Phone: [employer] Start: 12-14-2017 End: 12-14-2017 Chico Collier MD Work Phone: [employer] Start: 11-17-2017 End: 11-17-2017 Chico Collier MD Work Phone: [employer] Start: 09-19-2017 End: 09-19-2017 Chico Collier MD Work Phone: [employer] Start: 09-05-2017 End: 09-05-2017 Chico Collier MD Work Phone: [employer] Start: 08-29-2017 End: 08-29-2017 Chico Collier MD Work Phone: [employer]. Start: 06-24-2017 End: 06-24-2017 Chico Collier MD Work Phone: [employer]. Start: 06-09-2017 End: 06-09-2017 Chico Collier MD Work Phone: [employer]. Start: 03-25-2017 End: 03-25-2017 Chico Collier MD Work Phone: [employer]. Start: 03-24-2017 End: 03-24-2017 Chico Collier MD Work Phone: [employer] Start: 12-23-2016 End: 12-23-2016 Chico Collier MD Work Phone: [employer] Start: 12-22-2016 End: 12-22-2016 Patient encounter status Chico Collier MD Work Phone: [employer] Start: 12-22-2016 End: 12-22-2016 Chico Collier MD Work Phone: [employer] Start: 12-13-2016 End: 12-13-2016 Chico Collier MD Work Phone: [employer]. Start: 11-05-2016 End: 11-08-2016 Chico Collier MD Work Phone: [employer] Start: 08-06-2016 End: 08-06-2016 Chico Collier MD Work Phone: [employer] Start: 07-29-2016 End: 07-29-2016 Chico Collier MD Work Phone: [employer] Start: 12-22-2015 End: 12-22-2015 Patient encounter status Chico Collier MD Work Phone: [employer]; [employer] Start: 12-22-2015 End: 12-22-2015 Chico Collier MD Work Phone: [employer]. Start: 12-03-2015 End: 12-03-2015 Chico Collier MD Work Phone: [employer]. Start: 11-03-2015 End: 11-03-2015 Chico Collier MD Work Phone: [employer]. Start: 11-03-2015 End: 11-03-2015 Chico Collier MD Work Phone: [employer]. Start: 06-11-2015 End: 06-11-2015 Chico Collier MD Work Phone: [employer]. Start: 06-06-2015 End: 06-06-2015 Chico Collier MD Work Phone: [employer]. Start: 05-28-2015 End: 05-28-2015 Chico Collier MD Work Phone: [employer]. Start: 05-19-2015 End: 05-19-2015 Chico Collier MD Work Phone: [employer] Start: 11-28-2014 End: 11-28-2014 Patient encounter status Chico Collier MD Work Phone: [employer] Start: 11-28-2014 End: 11-28-2014 Chico Collier MD Work Phone: [employer]. Start: 11-27-2014 End: 11-27-2014 Chico Collier MD Work Phone: [employer]. Start: 11-21-2014 End: 11-21-2014 Chico Collier MD Work Phone: [employer] Start: 10-30-2014 End: 10-31-2014 Chico Collier MD Work Phone: [employer]. Start: 10-30-2014 End: 10-30-2014 Chico Collier MD Work Phone: [employer] Start: 05-29-2014 End: 06-20-2014 Chico Collier MD Work Phone: [employer] Start: 11-22-2013 End: 11-22-2013 Patient encounter status Chico Collier MD Work Phone: [employer] Start: 11-22-2013 End: 11-22-2013 Chico Collier MD Work Phone: [employer] Start: 11-14-2013 End: 11-14-2013 Chico Collier MD Work Phone: [employer] Start: 10-23-2013 End: 10-24-2013 Chico Collier MD Work Phone: [employer] Start: 11-02-2012 End: 11-02-2012 Routine gynecological examination Chico Collier MD Work Phone: [employer]; [employer]. Start: 11-02-2012 End: 11-02-2012 Chico Collier MD Work Phone: [employer] Start: 10-23-2012 End: 10-23-2012 Chico Collier MD Work Phone: [employer] Start: 10-05-2012 End: 10-05-2012 Chico Collier MD Work Phone: [employer] Start: 03-17-2012 End: 03-17-2012 Chico Collier MD Work Phone: [employer]. Start: 03-13-2012 End: 03-13-2012 Chico Collier MD Work Phone: [employer] Start: 10-14-2011 End: 10-14-2011 Chico Collier MD Work Phone: [employer] Start: 10-13-2011 End: 10-13-2011 Chico Collier MD Work Phone: [employer]. Start: 09-09-2011 End: 09-09-2011 Chico Collier MD Work Phone: [employer] Start: 08-06-2011 End: 08-06-2011 Chico Collier MD Work Phone: [employer]. Start: 03-05-2011 End: 03-05-2011 Chico Collier MD Work Phone: [employer]. Start: 02-26-2011 End: 02-26-2011 Chico Collier MD Work Phone: [employer]. Start: 02-22-2011 End: 02-22-2011 Chico Collier MD Work Phone: [employer]. Start: 08-26-2010 End: 08-26-2010 Routine gynecological examination Chico Collier MD Work Phone: [employer] Start: 08-26-2010 End: 08-26-2010 Chico Collier MD Work Phone: [employer]. Start: 07-09-2010 End: 07-09-2010 Routine general medical examination at a health care facility Chico Collier MD Work Phone: [employer] Start: 07-09-2010 End: 07-09-2010 Chico Collier MD Work Phone: [employer] Patient encounter status Serena Dixon LPN Work Phone: [employer] Patient encounter status Serena Dixon LPN Work Phone: [employer] Procedures Date Procedure Procedure Detail Performing Clinician [...] Comment: URIN ALYSIS Performed By: #### [id number] ####[facility],[address] [place] [address] Start: 01-26-2023 End: 01-26-2023 Radex hand minimum [...] Phone: Start: 01-12-2023 End: 01-12-2023 Serena Dixon TRACTOR TRAILER TECHNICIAN Work Phone: Start: 01-12-2023 End: 01-12-2023 Serena Dixon TRACTOR TRAILER TECHNICIAN Work Phone: Start: 12-27-2022 End: 12-27-2022 Lab findings surveillance Serena Dixon L PN Work Phone: Start: 12-27-2022 End: 12-27-2022 Lipid panel results documented & reviewed Serena Dixon TRACTOR TRAILER TECHNICIAN Work Phone: Start: 05-19-2022 End: 05-19-2022 Screening mammography Serena Dixon TRACTOR TRAILER TECHNICIAN Work Phone: Start: 05-19-2022 End: 05-19-2022 Serena Zack TRACTOR TRAILER TECHNICIAN Work Phone: Start: 05-06-2022 End: 05-20-2022 Duplex [...] End: 01-04-2017 Bone density scan Serena Dixon TRACTOR TRAILER TECHNICIAN Work Phone: Start: 12-22-2016 End: 12-22-2016 Current tobacco non-user cad cap copd pv dm Chico Coliler MD Work Phone: Start: 12-22-2016 End: 12-22-2016 [...] malignant neoplasm of large intestine Serena Dixon ALEX Work Phone: Start: 12-22-2016 End: [...] End: 08-07-2016 Ophthalmic examination and evaluation Tavia Tree JOHNSON Start: 12-22-2015 End: 12-22-2015 PPPS, subseq visit [...] 02-08-1996 End: 02-08-1996 Screening colonoscopy Tavia Leavitt LPN Cholecystectomy Serena iDxon TRACTOR TRAILER TECHNICIAN Work Phone: H/O: hysterectomy Obi clark TRACTOR TRAILER TECHNICIAN H/O: hysterectomy Chico leonard MD Work Phone: H/O: hysterectomy Chico leonard MD Work Phone: H/O: hysterectomy Chico leonard MD Work Phone: H/O: hysterectomy Chico leonard MD Work Phone: H/O: hysterectomy Serena Beac hy TRACTOR TRAILER TECHNICIAN Work Phone: History of cataract extraction Obi Hardeep SOTON History of cataract extraction Chico Collier MD Work Phone: History of cataract extraction Serena Dixon TRACTOR TRAILER TECHNICIAN Work Phone: History of cholecystectomy Sofia Collier MD Work Phone: Total hysterectomy Serena Quinteros chi TRACTOR TRAILER TECHNICIAN Work Phone: Vaccine refused by patient A gretchendeloris Moranon TRACTOR TRAILER TECHNICIAN Vaccine refused by patient Sofia Collier MD Work Phone: Vaccine refused by patient Sofia Collier MD Work Phone: Vaccine refused by patient Sofia Collier MD Work Phone: Vaccine refused by patient Sofia Collier MD Work Phone: Vaccine refused by patient Rosalba Dixon TRACTOR TRAILER TECHNICIAN Work Phone: Plan of Treatment Date Care Activity Detail Author Start: 09-23-2024 [facility] Start: 06-26-2024 [facility] Start: 06-25-2024 Simple rpr scalp/neck/ax/genit/trunk 7.6-12.5cm RPR S/N/AX/GEN/TRK7.6-1 2.5CM [facility] Start: 2023 Blood count complete auto&auto difrntl wbc [facility], [employer] [facility] [employer], [employer]. Start: 2023 Comprehensive metabo lic panel [facility], [facility].; [facility] [employer], [facility]. Start: 2023 Lipid panel [facility], [facility].; [facility] [employer], [facility]. Start: 2023 Screening mammograph y bi 2-view breast inc cad [employer], [facility]. Start: 01-26-2023 Radex hand minimum 3 views [facility], [facility].; [facility] [employer], [facility]. Start: 12-08-2022 Screening mammograph y bi 2-view breast inc cad [employer] Start: 12-24-2021 Screening mammograph y bi 2-view breast inc cad [employer] CBC W Auto Different ial panel - Blood [facility] Patient Education [facility] Work Phone: Patient referral [facility] Work Phone: Immunizations Immunization Date Immunization Notes Care Provider [facility] 06-25-2024 tetanus toxoid, reduced diphtheria toxoid, and acellular pertussis vaccine, adsorbed Dr. Joel Muniz MD Work Phone: [facility] 04-10-2020 Chico thakkar MD Work Phone: [employer] 03-13-2020 Chico thakkar MD Work Phone: [employer]; [employer]. 11-22-2013 Chico thakkar MD Work Phone: [employer] 11-22-2013 influenza, seasonal, injectable Chico Collier MD Work Phone: [employer] 06-06-2006 tetanus toxoid, reduced diphtheria toxoid, and acellular pertussis vaccine, adsorbed Chico Collier MD Work Phone: [employer]; [employer] NEGATED: Highlighted row has not occurred! influenza, injectable, quadrivalent, contains preservative Chico Collier MD Work Phone: [employer]; [employer] NEGATED: Highlighted row has not occurred! pneumococcal conjugate vaccine, 13 valent Chico Collier MD Work Phone: [employer]; [employer] NEGATED: Highlighted row has not occurred! pneumococcal polysaccharide vaccine, 23 valent Chico Collier MD Work Phone: [employer]; [employer] NEGATED: Highlighted row has not occurred! zoster vaccine, live Chico Collier MD Work Phone: [facility]. Payers Date Payer Category Payer Medicare [id number] 2024 Private Health Insurance [id number] 2024 Self-pay [id number] 2022 Medicare [id number] 2022 Unknown [id number] 1945 Unknown [id number] 2.16.8 40.1.392396.3.579.2.651 1945 Unknown [id number] 2.16.8 40.1.711196.3.579.2.651 1945 Unknown [id number] 2.16.84 0.1.915660.3.579.2.651 1945 Unknown [id number] 2.16.84 0.1.313530.3.579.2.651 1945 Unknown [id number] 2.16.84 0.1.074897.3.579.2.651 1945 Unknown [id number] 2.16.8 40.1.224073.3.579.2.627 1945 Unknown [id number] 2.16.8 40.1.194876.3.579.2.627 1945 Unknown [id number] 2.16.8 40.1.766011.3.579.2.627 1945 Unknown [id number] 2.16. 840.1.564969.3.579.2.627 Unknown Unknown [id number] 2.16.8 40.1.499468.3.579.2.462 Unknown [id number] 2.16.8 40.1.678580.3.579.2.462 Unknown [id number] 2.16.8 40.1.168669.3.579.2.462 Unknown [id number] 2.16.8 40.1.505919.3.579.2.462 Unknown [id number] 2.16.8 40.1.735306.3.579.2.462 Unknown [id number] 2.16.8 40.1.451724.3.579.2.462 Unknown [id number] 2.16.8 40.1.268909.3.579.2.462 Unknown [id number] 2.16.8 40.1.545265.3.579.2.462 Unknown [id number] 2.16.8 40.1.617861.3.579.2.462 Unknown [id number] 2.16.8 40.1.745005.3.579.2.462 Unknown [id number] 2.16.8 40.1.975204.3.579.2.462 Unknown [id number] 2.16.8 40.1.661398.3.579.2.462 Unknown [id number] 2.16.8 40.1.812724.3.579.2.462 Unknown [id number] 2.16.8 40.1.197368.3.579.2.462 Unknown [id number] 2.16.8 40.1.387239.3.579.2.462 Unknown [id number] 2.16.8 40.1.805808.3.579.2.462 Unknown [id number] 2.16.8 40.1.280969.3.579.2.462 Unknown [id number] 2.16.8 40.1.416235.3.579.2.462 Unknown [id number] 2.16.8 40.1.121290.3.579.2.462 Unknown [id number] 2.16.8 40.1.121653.3.579.2.462 Unknown [id number] 2.16.8 40.1.810360.3.579.2.462 Unknown [id number] 2.16.8 40.1.195974.3.579.2.462 Unknown [id number] 2.16.8 40.1.514341.3.579.2.462 Unknown [id number] 2.16.8 40.1.297180.3.579.2.462 Unknown [id number] 2.16.8 40.1.292247.3.579.2.462 Social History Date Type Detail Facility [facility], [facility]. Retired. [facility], [facility]. Tobacco smoking status [facility] Start: 1945 Sex Assigned At Female A [facility] Start: 06-25-2024 End: 09-23-2024 Tobacco smoking status [facility] Never smoked tobacco (finding) [facility] Start: 02-08-2023 Sex Female (finding) [facility] Sex Female [facility] Functional Status Date Assessment Result Facility 03-03-2023 Functional Status Room check performed [facility] 03-02-2023 [facility]02[facility]-01[facility]-01[facility]23 [facility]28[facility]23 [facility]28[facility]-28[facility]28[facility]27[facility]25[facility]23 Functional Status Antiembolism S tocking Off/Removed bilateral knee high [facility] 02-24-2023 Functional Status Arabella [facility] 02-24-2023 Functional Status 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 - 02/09/23 [facility]-23-2023 [facility] Status Evening Snack Percent 1 00 [facility] 02-22-2023 Functional Status Hospital bed [facility] 02-21-2023 [facility]-20[facility] Functional Status Orthotics, Device Worn Per Schedule Yes [facility] 02-19-2023 Functional Status [facility] 02-18-2023 Functional Status [facility] 02-18-2023 [facility] Status [facility] 02-16-2023 Functional Status Personal ADL [facility] 02-15-2023 Functional Status Sensory Deficits None A [facility] [place] 02-15-2023 Functional Status Up to Chair Returned to bed [facility] 02-15-2023 Functional Status Room check performed [facility] 02-15-2023 [facility] Status Arabella [facility] 02-15-2023 Functional Status Valid Kemp Slip N/A [facility] 02-15-2023 [facility]14[facility]23 Functional Status bilateral knee high sabas lied/on [facility] 02-14-2023 [facility] Status Done [facility] 02-14-2023 Functional Status [facility] 02-14-2023 Functional Status 7pm-7am [facility] 02-14-2023 [facility] Status Arabella [facility] 02-12-2023 Functional Status B[facility] 02-12-2023 [facility] Arabella 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 - 02/09/23 Daughter not present at time of OT evaluation but patient was better able to provide history this date and most 6 [facility] 02-10-2023 Functional Status Mod A [facility] 02-09-2023 Functional Status Sensory Deficits None [facility] 02-09-2023 Functional Status Living Situation [facility] 02-09-2023 [facility] Mental Status Date Assessment Result Facility 09-23-2024 Cognitive function Voice/Name [facility] Work Phone: 03-03-2023 Mental Status Oriented x 4 [facility] 03-02-2023 Mental Status [facility] 03-02-2023 Mental Status [facility] 02-26-2023 Mental Status [facility] 02-15-2023 Mental Status [facility] 02-14-2023 [facility] Status [facility] 02-14-2023 [facility] Status [facility] 02-14-2023 [facility] Status [facility] Clinical Notes 02-08-2023 to 09-23-2024 Note Date & Type Note Facility 09-23-2024 Discharge summary [facility] 07-13-2024 Evaluation note Diagnosis Onset Date Resolution Laceration of forearm, left inactive July 13, 2024 1 :56pm Dizziness acute July 27 9:16am Falls acute July 27 9:16am Laceration of forearm, left inactive July 27, 2024 9:16am Dizziness acute September 03 3:30pm Essential hypertension acute Ju ly 2024 3:30pm Orthostatic hypotension acute J shae 2024 3:30pm [facility] Work Phone: [phone]) 229-665405-27-2025 [facility] G[facility] [address] [place] [address] OFFICE VISIT Date of Service: 07/03/24 MR#: [id number] Acct: [id number] Name: ROSARIO MCNALLY Rep #: [id number] 1945 Provider: RANDALL Ramirez Age/Sex: 78/F Location[facility] Status: Signed Intake Vital Signs 06/28/24 [...] POSITIVE HEMOCULT Chief Complaint: occult positive stools [employer] Required: No Accompanied by: Caregiver Is patient in pain?: No Allergies amoxicillin (From Trimox) Allergy (Verified 07/03/24 10:13) Hives Medications ?Medication ?Instructions ?Recorded ?Confirmed ?Type acetaminophen 650 mg 650 mg PO Q8H 03/28/2307/03 History tablet,extended release atorvastatin 10 mg tablet 10 mg PO QHS 03/28/23 History bisacodyl 10 mg rectal suppository 10 mg GA DAILY PRN 03/28/23 07/03/24 History (Dulcolax (bisacodyl)) [...] testing if a lesion/cancer were found [place] [phone] ROS Const Constitutional: No fatigue, fever(s) or weight change ENT ENT: No difficulty swallowing Gastro GI: Positive for Blood in stool; No abdominal pain, belching, bloating, change in bowel habits, change in stool character, coffee ground emesis, constipation, cramping, diarrhea, heartburn, difficulty swallowing, feeling full early,excessive flatus, incontinent of stools, Vomiting blood/hematemesis, loose [...] well nourished Orientation: alert and oriented x3 HENNY Head: normocephalic Ears: hearing grossly normal bilaterally [...] resulting in a large left arm laceration vfzhepryd44 sutures. Her hemoglobin initially dropped to 9.0 [...] contributing factor. However, patient denies GI symptoms includingmelena, hematochezia, abdominal pain, or weight loss. She is not on any nonsteroidal medications oranticoagulant, and denies any known family history of colorectal cancer. She is physically unsteady and at high risk of falling, and a colonoscopy would necessitate a bowelprep that could further compromise her safety. Additionally, she has clearly expressed that she would not pursue surgical intervention even if an advanced lesion were to be found. Given her lack of stability, lack of concerning systemic symptoms, and personal preferences regarding treatment, I believe the risks of pursuing a colonoscopy at this time outweigh the potential benefits. The plan is tomonitor hemoglobin levels for continued improvement, reassess if anemia worsens or new symptoms emerge, and consider noninvasive options such as repeat FIT testing only if clinically indicated and consistent with her goals of care. She reports having labs drawn this morning which I do not have the results of. If her hemoglobin remains stable, I recommend repeating in one month. Note: [employer] speech recognition athletic equipment manager software was used to create portions of this document. Sound-alike and misspelled words, as well as other athletic equipment manager errors may be contained in the documentation. Coding Level of Care Code Off vis,new,level 4 Diagnoses Anemia D64.9 Occult blood positive stool R19.5 Clinical Quality Measures Falls Risk Screening/Assistive Devices Have you fallen in the past year?: Yes Smoking Screening Smoking Status: Never smoker 07/03/24 1109 rhina CYLINDER INSPECTOR-C> Date _ Barbara Ramirez CYLINDER INSPECTOR-C Cosigner Signature: Date (if applicable) CC: ~ [facility]05-22-2025 Evaluation note* Diagnosis Onset Date Resolution Status Admit Date Laceration of forearm, left acute June 28, 2024 2:25pm Anemia acute July 03, 2024 9:56am Occult blood positive stool acute July 03, 2024 9:56am [facility] Work Phone: 1(256) 482-277205-22-2025 Evaluation note* Diagnosis Onset Date Resolution Status Admit Date Laceration of forearm, left inactive June 28, 2024 2:25pm Anemia acute July 03, 2024 9:56am Occult blood positive stool acute July 03, 2024 9:56am [facility] Work Phone: 1(472) 291-484205-22-2025 Evaluation note* Diagnosis Onset Date Resolution Status Admit Date Laceration of forearm, left inactive June 28, 2024 2:25pm Anemia acute July 03, 2024 9:56am Occult blood positive stool acute July 03, 2024 9:56am Laceration of forearm, left inactive July 06, 2024 2:14pm [facility] Work Phone: 1(837) 665-973505-22-2025 Evaluation note* Diagnosis Onset Date Resolution Status Admit Date Laceration of forearm, left inactive June 28, 2024 2:25pm Anemia acute July 03, 2024 9:56am Occult blood positive stool acute July 03, 2024 9:56am Laceration of forearm, left inactive July 06, 2024 2:14pm Laceration of forearm, left inactive July 13, 2024 1:56pm [facility] Work Phone: 1(770) 616-665105-22-2025 Evaluation note* Diagnosis Onset Date Resolution Status [...] Orthostatic hypotension acute J shae 2024 3:30pm [facility] Work Phone: 1(451) 543-834405-22-2025 Evaluation note* Diagnosis Onset Date Resolution Status [...] Orthostatic hypotension acute J shae 2024 3:30pm [facility] Work Phone: 1(469) 970-949005-19-2025 Radiology Diagnostic study note [facility] Imaging Services [address] [address] Forearm 2 Views MR#: [id number] Acct: [id number] Name: ROSARIO MCNALLY Rep #: [id number] : 1945 F 78 From: Jess Rondon MD PCP: Dr. Yahaira Winn MD Status: REG ER Study:Forearm 2 Views Date of Exam: 06/07 11/01 Exam# [id number] Ordering Dr: Sofia Muniz MD PROCEDURE: FOREARM [...] Mild osteopenia slightly limits thisevaluation. Reading Location: [facility] CC: Dr. Yahaira Winn MD; Dr. Joel Muniz MD ~ Heel Shaver: Signed [facility]01-25-2024 Nurse Progress note Nursing GG Entered On: 03/03/2023 9:32 EST Performed On: 03/03/2023 9:32 EST by Myrna West LPN Nursing GG's OT GG Grid Eating : Independent Myrna West LPN - 03/03/2023 9:32 EST Digitally Signed by Myrna West LPN on 03/03/2023 09:32 AM Arabella [id number] Note Discharge Instructions Thank you for allowing [...] EST Why: Orthopedic follow up - Where: [facility] [address] [place] [address] [phone] Follow Up with CHELSEA MARIN PA-C When 03/17/2023 12:10 PM EST Why: Neurology follow up - Where: [address] [place] [address] [phone] Follow Up with EKATERINA SALAZAR, CH[facility] Hope When 03/09/2023 01:40 PM EST Why: Take Discharge Instructions to Dr Visit - Where: [address] [place] [address] [phone] Follow Up with URIAH BOCANEGRA MD, Neurosurgery When Only if needed Why: Neurosurgeon - Where: [address] [facility] [address] [facility] [place] [address]- [phone] The Following Activity and Diet Have Been [...] Ordered -- 03/03/23 10:00:00 EST, TRACI LANCE APRN-NICKIE Transfer of Care Prognosis - Ordered [...] by mouth Once a day Pickup at [facility] 1720 Unchanged carbidopa-levodopa (carbidopa-levodopa 25 mg-100 mg oral tablet) 1 tab(s) by mouth Four (4) times a day Pickup at [facility] 172 Unchanged escitalopram (escitalopram 10 mg oral tablet) 1 tab(s) by mouth Once a day Pickup at [facility] 1724 Unchanged midodrine (midodrine 5 mg oral tablet) 1 tab(s) by mouth Three (3) times a day Pickup at [facility] 1724 Pharmacy Information [facility] 1724: [address], [place] [phone] What How Much When Comments Stop Taking [...] Follow these instructions at home: Medicines Take bymf-egp-nlozdjz and prescription medicines only as told by [...] You have any signs of a stroke. "BE FAST" is an easy way to remember the [...] 05/21/2013 Document Revised: 01/06/2018 Document Reviewed: 11/03/2017 [employer] Patient Education 2020 [employer]. Additional Information VACCINATE! IT SAVES LIVES! Members of the community who have not yet received the COVID-19 vaccine and would like to receive it can visit one of [facility] vaccine clinics. There are many vaccine clinic locations within the [facility]. For locations and available times, please visit https://gettheshot.coronavirus.[place].gov/. It is important to note that some COVID mobile vaccine clinics are held outdoors and may be canceled in rainy or stormy conditions. To learn more about pediatric vaccinations (ages 5-11), we invite you to visit the [facility] webpage. https://www.[facility].org/pages/9955-Jgiax-Rxbsqemgits-Yofbhcfkks-Qgefo-Cft stions.htmlTo learn more about the COVID-19 vaccine, we invite you to visit the CDC website for a list of frequently asked questions.https://www.cdc.gov/coronavirus/2019-ncov/vaccines/faq.html [facility] Patient Portal Access Instructions: Stay connected with your healthcare team and access your personal medical information anytime with the [facility] Patient Portal. Please follow the directions below to create your [facility] account: 1.Access the email account you provided upon registration to the hospital/physician office.2.Look for an invitation email from [facility].3.Open the email and access the invitation link: AcceptInvitation to [facility].4.Fill in the required lujan to create your account. To access your account, visit [email or web address]. Click the blue button labeled "Access Patient Portal" and then log in with the username and password that you created in the steps above. You will be able to view your test results, lab results, a summary of your visits, upcoming appointments and more. There is also a convenient messaging option where you can send secure messages to your p [employer] Mediavider. In addition, you will have the ability to download any documents or summaries to your computer and/or send the information securely to a physician. Remember that your healthcare information is confidential, so carefully consider who you will allowto register on the [facility] Patient Portal for access to your information. You can also access the [facility] Patient Portal on the [facility] Fiverr.comwhere sabas. Simply click on "Patient Portal" and then log into your account. If you would like to receive a full copy of your medical records, please contact the [facility] Medical Records Department by calling [phone], Tuesday through Tuesday between 8 a.m. and [...] Call your local pharmacy or go to http://bit.ly/6R4Tc0x to find one close to you.3.Make use of household items: Use cat litter or old coffee grounds to dispose medications if other options arenot available. Mix your drugs with these household products, seal them in an airtight container andthrow it into the garbage. Call [facility]: [phone] to be sure your drugs can be [...] COPY. Signatures Patient Education Materials Subarachnoid Hemorrhage, Pdut-tv-Lcjf Medication Leaflets My discharge plan and instructions have been reviewed and explained to me and IDALI CONNIE L understand my current condition and have read and understand these discharge instructions. I have received a written copy of the plan/instructions. If I have questions, I am aware that I should contact my doctor. Patient/Woodworking Shop Hand Signature: Date/Time: Relationship to Patient: Witness Name/Signature: Date/Time: Arabella [id number] Nurse Progress note Nursing GG Entered On: 03/02/2023 22:09 EST Performed On: 03/02/2023 22:09 EST by Saima Young LPN Nursing GG's OT GG Grid Eating : Independent Saima Young LPN - 03/02/2023 22:09 EST Digitally Signed by Saima Young LPN on 03/02/2023 10:09 PM Arabella SingerEwxgypll09-17-2460 Hospital Discharge instructions Patient Education 03/02/2023 18:57:13 Subarachnoid Hemorrhage, Wjiq-mj-Zdpj Subarachnoid Hemorrhage Subarachnoid hemorrhage is bleeding between [...] Follow these instructions at home: Medicines Take vinx-idv-fgjvidi and prescription medicines only as told by [...] You have any signs of a stroke. "BE FAST" is an easy way to remember the [...] your local emergency services (911 in the .S.). Do not drive yourself to the hospital. [...] 05/21/2013 Document Revised: 01/06/2018 Document Reviewed: 11/03/2017 [employer] Patient Education 2020 [employer]. Follow Up Care 02/15/2023 16:57:34 With:URIAH BOCANEGRA MD, Neurosurgery Address: Formerly named [facility] [address] [place] [address] [phone] When: only if needed Comments:Neurosurgeon - With:EKATERINA SALAZAR, CHICO Hope Address: [address] [place] [address] [place] [address] [phone] When:03/09/2023 13:40:00 Comments:Take Discharge Instructions to Dr Billy - With:CHELSEA MARIN PA-C Address: [address] [place] [address] [phone] When:03/17/2023 12:10:00 Comments:Neurology follow up - With:CHICO ELIZONDO MD, Orthopedic Address: [facility] [address] [place] [address] [phone] When:03/25/2023 14:00:00 Comments:Orthopedic follow up - Arabella Singer 01-24-2024 Nurse Progress note Nursing GG Entered On: 03/02/2023 11:33 EST Performed On: 03/02/2023 11:33 EST by Myrna West LPN Nursing GG's OT GG Grid Eating : Independent Myrna West LPN - 03/02/2023 11:33 EST Digitally Signed by Myrna West LPN on 03/02/2023 11:33 AM Arabella [id number] Physical medicine and rehab Progress note Rehab Note Chief Complaint: Seeing this patient for reevaluation of therapy progress and subarachnoid hemorrhage, right wrist fracture History of Present Illness: Seeing this patient for reevaluation of therapy and subarachnoid hemorrhage. Patient participates in acute inpatient rehabilitation with PT, OT and ST services. 77-year-old female admitted to [facility] from [facility] stay 02/08 - 02/15 who is past medical history of Parkinson's, hypertension, lipidemia, depression, and right lower extremity weakness who originally presented to [facility] and was transferred to [facility] after imaging showed subarachnoid hemorrhage. Patient [...] Goal is to transition to SNF in [place]. Denies any concerns about discharge. Tentative discharge [...] Rate80(MAR 01 20:32)80(MAR 01 20:32)80(MAR 01 20:32) JPG939(MAR 02 05:43)111(MAR 01 08:55)H 152(MAR 01 20:32) [...] ADLs and self-care. Plan respite ECF at [facility] in [place] with long-term goal return back home with [...] GARCIA DO on 03/02/2023 01:44 PM Arabella [id number] Note Subjective Patient states she is doing [...] right upper extremity, neurovascular check intact. VITALS YwdtsqRwchJXAfudwFHRmL2AAJ5AidyTt(kg) 03/01 20:3236.7--265646LZ93/22 58.6 03/01 08:55----661658EY 03/01 05:3736.6--632522GZ 02/28 21:0437.0--360663ET 02/28 18:32----84----RA 24 Hr Tmax: 36.7 at [...] tab(s), Tab, Oral, QID, 1st dose location: [facility], 1, 02/15/23 18:51:00 EST escitalopram Start: [...] Constipation, 02/15/23 17:27:00 EST glucagon (GlucaGen) Start: 02/15/23:: EST, Dose = 1 mg, = 1 mL, Intramuscular, AsDirected, PRN, Hypoglycemia, if unresponsive, NO IV ACCESS & blood glucose less than 70mg/dL. If still unresponsive after 2 minutes, REPEAT x1., 02/15/23::00 EST glucose (Dextrose 50% IV Push) Start: 02/15/23:: EST, Dose = 12.5 gram(s), = 25 mL, IV Push,AsDirected, PRN, Hypoglycemia, if unresponsive WITH IV ACCESS & blood glucose less than 70mg/dL. If still unresponsive after 2 minutes, REPEAT x1., 02/15/23 17:27:00 EST glucose Start: 02/15/23 17:: EST, Dose = 16 gram(s), = 4 tab(s), Chewed, AsDirected, PRN, Hypoglycemia, DIABETIC PATIENT if responsive & blood glucose less than 70mg/dL. If blood glucose less than 70mg/dL after 15 minutes, REPEAT x1., 0, 02/15/23 17:2... glycerin (glycerin adult rectal suppository) Start: 02/15/23 17:27:00 EST, Dose = 1 supp, Supp, Rectal, Daily, PRN, Constipation, 02/15/23 17::00 EST magnesium hydroxide (Milk of Magnesia) Start: 02/15/23 17::00 EST, Dose = 30 mL, Susp-Oral, Oral,Daily, PRN, Constipation, 02/15/23 17:27:00 EST polyethylene glycol 3350 (Miralax Powder Packet) Start: 02/15/23 17:27:00 EST, Dose = 17 gram(s), =15 mL, Oral, qDay, PRN, Constipation, 01/09/24 17:27:00 EST One Time Meds: None Active IV Meds: None Problems (5) Lung nodule (7838621950) Orthostatic hypotension (48126118) Parkinson's disease (29409855) Right wrist fracture (9802090130) Subarachnoid hemorrhage (8937170768) ASSESSMENT/PLAN: 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 Patient is participating in acute inpatient rehab services including PT/OT/INSPECTOR BOILER. Patient status post hospitalization[facility] from 02/08 - 02/15 following a fall [...] discharging to an extended care facility, the [facility]. Tentative discharge date 03/03/2023. Medications Medication List [...] Rate84(FEB 28 21:04)84(FEB 28 18:32)84(FEB 28 18:32) DUS429(FEB 28 21:04)92(FEB 28 09:23)130(DANIA 22 21:04) DBP72(FEB 28 21:04)L 52(FEB 28 15:00)72(FEB 28:04) Physical Exam: General: No acute distress. Appears [...] the right wrist planning orthopedic follow-up at [facility]. Plan transition [facility] long-term goal return to supervision of daughter and home care services Risks/benefits of meds, treatments considered. Therapy notes reviewed. Discussed with staff. PMH/SH reviewed and unchanged Medications are reviewed and up-to-date This document was transcribed using dictation software and may contain typographical errors. Lawrence Rivera RN, am scribing for , and in the presence of Dr. Radha HENLEY. Dr. Radha Rivera DO, personally performed the services described in this documentation, as scribed byLawrence RN in my presence and it is both accurate and complete. Digitally Signed by STAN GARCIA DO on 03/01/2023 03:38 PM Arabella [id number] Note Subjective Patient reports that she is [...] right upper extremity, neurovascular check intact. 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 Cardenas. IDr. Cardenas, personally performed the services described in this documentation, as scribed byJanie RN in my presence and it is both accurate and complete. Digitally Signed by IVAN CARDENAS DO on 03/03/2023 09:21 AM [facility] Physical medicine and rehab Progress note Rehab Note Chief Complaint: Seeing this patient for evaluation of therapy progress History of Present Illness: Seeing this patient for evaluation in therapy progress. Patient is participating in acute inpatient rehab services including PT/OT/INSPECTOR BOILER. Patient status post hospitalizationat [facility] from 02/08 - 02/15 following a fall [...] discharging to an extended care facility, the [facility]. Tentative discharge date 03/03/2023. Medications (14) Active [...] 09:19) Heart Rate92(FEB 27 09:19)92(FEB 27 09:19)92(FEB 27:19) ZLT898(FEB 27:09)L 88(FEB 27:19)H 146(FEB 27 06:05) DBP74(FEB 27:09)L 58(FEB 27 [...] on right wrist pending orthopedic follow-up with [facility] continue Plastizote splint. Plan transition to [facility] respite care March 03 ongoing home care [...] GARCIA DO on 02/28/2023 08:05 PM Arabella [id number] Note Subjective Patient voices no acute complaints [...] right upper extremity, neurovascular check intact. 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 CONSULTING PSYCHOLOGIST: Aashish Muro, PhD. REASON FOR REFERRAL: Neuropsychological exam. HISTORY OF PRESENT ILLNESS: Ms. Mcnally is a 77-year-old right-handed white female admitted to [facility] from [facility] 02/15/2023 after falling down multiple steps. Brain [...] Includes hypertension, hyperlipidemia, depression. No prior known MANUFACTURER'S REPRESENTATIVE injuries or illnesses other than the Parkinson's. PCP is Dr. Chico Robins. CURRENT MEDICATIONS: Reviewed. Her Sinemet was increased from twice to four times a day to help improve the Parkinson's balance issues. She is on Lexapro 10 mg a day for the depression. Nothing elsepsychoactive or sedating. INTERVIEW RESULTS: Physically, patient denies [...] some family history. Ms. Mcnally lives in [place] with her daughter Larisa and Larisa's , [...] time tags, but thought she was in [place] at a facility called [facility]. Verbal attention span is mildly impaired limited [...] later, she recalled only 1/5 words, a mkec-jw-xhxshhyv deficit score. EXECUTIVE FUNCTIONS: Verbal everyday reasoning based on the judgment test is intact, 8/10 points. Moderately impaired on cognitive estimates, another verbal reasoning measure, 3/6 items correct. Mildto moderately impaired on matrix reasoning, a visual reasoning measure, standard score of 5. Poor insight. Moderately slow on most tasks. CONCLUSIONS: Cognitive testing reveals vxxksgud-ar-ykdoxu deficit in verbal memory, but normal visual memory. Normal verbal everyday reasoning, but moderately impaired cognitive estimates. Qehc-gp-vamdawsz deficit scores on the verbal and visual [...] right occipital subarachnoid hemorrhage, status post fall. Wftz-tf-jpdsuoeg cognitive deficits. 2. 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 3. Parkinson's disorder related cognitive symptoms, typically slowed thinking and attention. 4. Depression by chart review, on Lexapro. AASHISH MURO, PhD GM/NTS JOB#: [id number] DICTATION ID#: [id number] Digitally Signed by AASHISH MURO PhD on 02/23/2023 02:29 PM Arabella DoanLtsfmyfk51-78-5996 Note ORIGINAL EXAMINATION: THREE XRAY VIEWS OF [...] Date: 02/21/2023 12:22:22 PM Ordering Provider: STAN Preciado-11-2024 Note. MICRO - Microbiology PROCEDURE: Urine Culture [...] Locations *1: This test was performed at: [address] , [facility])02-16-2023 Evaluation + Plan noteExtracted from: Title:Clinical Document [...] down 8-10 steps, she was transferred to [facility] after imaging showed subarachnoid hemorrhage. CT [...] was deemed medically stable and transferred to [facility] inpatient rehabilitation unit for physical occupational therapies as well as medical supervision. Today she is sitting in wheelchair watching TV, reports she is doing "fine". Denies any dizziness, lightheadedness or headache. Denies [...] with daughter single level set up. Primary Emergency Medical Service Manager: Self. Safe place to go: Yes. Lives [...] Rate18(FEB 16 04:56)18(FEB 15 16:40)18(FEB 15 16:40) WVL176(FEB 16 04:56)108(FEB 15 16:40)114(FEB 16 04:56) DBP72(FEB [...] in the presence of Dr. Radha HENLEY. Dr. Radha Rivera DO , personally performed the services described in this documentation, as described by Julia San LPN in my presence and it is both accurate and complete. Arabellasejal Singer 01-10-2024 Physical medicine and rehab History [...] down 8-10 steps, she was transferred to [facility] after imaging showed subarachnoid hemorrhage. CT [...] was deemed medically stable and transferred to [facility] inpatient rehabilitation unit for physical occupational therapies as well as medical supervision. Today she is sitting in wheelchair watching TV, reports she is doing "fine". Denies any dizziness, lightheadedness or headache. Denies [...] with daughter single level set up. Primary Emergency Medical Service Manager: Self. Safe place to go: Yes. Lives [...] Rate18(FEB 16 04:56)18(FEB 15 16:40)18(FEB 15 16:40) FVV615(FEB 16 04:56)108(FEB 15 16:40)114(FEB 16 04:56) DBP72(FEB [...] STAN GARCIA DO on 02/16/2023 01:57 PM [facility]Pztfbdbn47-29-3438 Physical medicine and rehab Consult note INPATIENT REHAB HISTORY AND PHYSICAL CONSULTATION DATE OF ADMISSION: 02/15/2023 CC: Falls, subarachnoid hemorrhage Admission History and Physical HISTORY OF PRESENT ILLNESS: This is a 77-year-old female admitted to [facility] from [facility] stay 02/08 - 02/15 who is past medical history of Parkinson's, hypertension, lipidemia, depression, and right lower extremity weakness who originally presented to [facility] and was transferred to [facility] after imaging showed subarachnoid hemorrhage. Patient [...] Patient was deemed medically stable transferred to [facility] for physical and occupational therapy [...] Rate18(FEB 15 16:40)18(FEB 15 16:40)18(FEB 15 16:40) RIJ880(FEB 15 16:40)108(FEB 15 16:40)108(FEB 15 16:40) DBP60(FEB [...] will follow during acute rehabilitation stay at [facility] with the [...] IVAN CARDENAS DO on 02/17/2023 09:27 AM [facility] [id number] Hospital Discharge instructions Patient Education 02/15/2023 13:48:18 Subarachnoid Hemorrhage, Luyv-fl-Jxcy Subarachnoid Hemorrhage Subarachnoid hemorrhage is bleeding between [...] Follow these instructions at home: Medicines Take mbzh-efs-tspzzjw and prescription medicines only as told by [...] You have any signs of a stroke. "BE FAST" is an easy way to remember the [...] 05/21/2013 Document Revised: 01/06/2018 Document Reviewed: 11/03/2017 Snyppit Patient Education 2020 [employer]. Follow Up Care 02/08/2023 16:21:53 With:[facility], Address:Unknown When:1-2 days With:[facility] Address: When:Within 2 Week(s) With:EKATERINA SALAZAR, CHICO [facility] Address: [address] [place] [address] [place] [address] [phone] When:3-7 days [facility] 01-09-2024 Discharge summary Date of Service 02/15/23 [...] hypertension, depression, and hyperlipidemia. Patient presented to [facility] with complaints of fall. Per documentation patient fell down 8-10 steps. she was found confused on e walking from various rooms in the house aimlessly and turning on all the lights. CT head showed right occipital subarachnoid hemorrhage. Patient was then transferred to [facility] for further evaluation. patient was evaluated by [...] and Occupational Therapy recommend patient [facility] to [facility] facility.. Discussed with my collaborating physician Dr. [...] day. Follow Up Follow Up with [facility] When In 2 weeks Where: Follow Up with CHICO COLLIER MD When Within 3-7 days Where: [address] [place] [address] [place] [address]- [phone] Follow Up Appointments Transfer of Care OT [...] Disposition [facility] Information Provided To Patient DaughterDelicia Time Spent 32 minutes Digitally Signed by SHEELA PORRAS on 02/15/2023 01:37 PM [id number] Note Discharge Instructions Thank you for allowing [facility] to assist you with your healthcare needs. The following is importantdischarge information regarding your hospital visit. Your Care Team CHICO COLLIER MD Your Diagnosis 3 mm nodule right upper lobe HTN (hypertension) Orthostatic hypotension Parkinson disease Small right occipital SAH s/p fall on 02/06/2023 What to do next Follow Up Appointments Follow Up with Lucrecia, Acute Rehab, When Within 1-2 days [facility] In 2 weeks Where: Follow Up with CHICO COLLIER MD When Within 3-7 days Where: [address] [place] [address] [place] [address]- [phone] The Following Activity and Diet Have Been [...] Signed By - Ordered -- 02/15/23 10:25:00 JOSE, STEW ALEX DO Transfer of Care Prognosis [...] Follow these instructions at home: Medicines Take amql-bjd-oztzhgz and prescription medicines only as told by [...] You have any signs of a stroke. "BE FAST" is an easy way to remember the [...] Document Reviewed: 11/03/2017 Elsevier Patient Education 2020 [employer] Additional Information VACCINATE! IT SAVES LIVES! Members of the community who have not yet received the COVID-19 vaccine and would like to receive it can visit one of [facility] vaccine clinics. There are many vaccine clinic locations within the [facility]. For locations and available times, please visit [email or web address].[place].gov/. It is important to note that some COVID mobile vaccine clinics are held outdoors and may be canceled in rainy or stormy conditions. To learn more about pediatric vaccinations (ages 5-11), we invite you to visit the [facility] webpage. https://www.[facility].org/pages/4288-Zbepr-Ggbpfytqwni-Uybqsbnqsu-Egkui-Ypr stions.htmlTo learn more about the COVID-19 vaccine, we invite you to visit the CDC website for a list of frequently asked questions.https://www.cdc.gov/coronavirus/2019-ncov/vaccines/faq.html [facility] Patient Portal Access Instructions: Stay connected with your healthcare team and access your personal medical information anytime with the [facility] Patient Portal. Please follow the directions below to create your [facility] account: 1.Access the email account you provided upon registration to the hospital/physician office.2.Look for an invitation email from [facility].3.Open the email and access the invitation link: AcceptInvitation to [facility].4.Fill in the required lujan to create your account. To access your account, visit Coopkanics/Neocase Softwaret. Click the blue button labeled "Access Patient Portal" and then log in with the username [...] who you will allowto register on the [facility] Patient Portal for access to your information. You can also access the [facility] Patient Portal on the PhaseRxwhere sabas. Simply click on "Patient Portal" and then log into your account. If you would like to receive a full copy of your medical records, please contact the [facility] Medical Records Department by calling [phone], Tuesday through Tuesday between 8 a.m. and [...] Call your local pharmacy or go to [email or web address] [email or web address] to find one close to you.3.Make use of household items: Use cat litter or old coffee grounds to dispose medications if other options arenot available. Mix your drugs with these household products, seal them in an airtight container andthrow it into the garbage. Call [facility]: [phone] to be sure your drugs can be [...] COPY. Signatures Patient Education Materials Subarachnoid Hemorrhage, Mozs-ei-Rvdr Medication Leaflets My discharge plan and instructions have been reviewed and explained to me and I,DALI ROSARIO John understand my current condition and have read and understand these discharge instructions. I have received a written copy of the plan/instructions. If I have questions, I am aware that I should contact my doctor. Patient/Woodworking Shop Hand Signature: Date/Time: Relationship to Patient: Witness Name/Signature: [id number] Note Discharge Instructions Thank you for allowing [facility] to assist you with your healthcare needs. The following is importantdischarge information regarding your hospital visit. Your Care Team CHICO COLLIER MD Your Diagnosis 3 mm nodule right upper lobe HTN (hypertension) Orthostatic hypotension Parkinson disease Small right occipital SAH s/p fall on 02/06/2023 What to do next Follow Up Appointments Follow Up with [facility], When Within 1-2 days [facility] When In 2 weeks Where: Follow Up with CHICO COLLIER MD When Within 3-7 days Where: [address] [place] [address] [place] [address]- [phone] The Following Activity and Diet Have Been [...] to receive it can visit one of [facility] vaccine clinics. There are many vaccine clinic locations within the [facility]. For locations and available times, please visit https://gettheshot.coronavirus.[place].gov/. It is important to note that some COVID mobile vaccine clinics are held outdoors and may be canceled in rainy or stormy conditions. To learn more about pediatric vaccinations (ages 5-11), we invite you to visit the [facility] webpage. https://www.Business Exchanges.org/pages/6909-Ykcuj-Twlkhsuwrty-Wsraurrmbu-Naito-Sbv stions.htmlTo learn more about the COVID-19 vaccine, we invite you to visit the CDC website for a list of frequently asked questions.https://www.cdc.gov/coronavirus/2019-ncov/vaccines/faq.html [facility] Patient Portal Access Instructions: Stay connected with your healthcare team and access your personal medical information anytime with the [facility] Patient Portal. Please follow the directions below to create your [facility] account: 1.Access the email account you provided upon registration to the hospital/physician office.2.Look for an invitation email from [facility].3.Open the email and access the invitation link: AcceptInvitation to [facility].4.Fill in the required lujan to create your account. To access your account, visit [email or web address]/[email or web address]. Click the blue button labeled "Access Patient Portal" and then log in with the username [...] who you will allowto register on the [facility] Patient Portal for access to your information. You can also access the [facility] Patient Portal on the [facility] sabas. Simply click on "Patient Portal" and then log into your account. If you would like to receive a full copy of your medical records, please contact the [facility] Medical Records Department by calling [phone], Tuesday through Tuesday between 8 a.m. and [...] Call your local pharmacy or go to [email or web address] to find one close to you.3.Make use of household items: Use cat litter or old coffee grounds to dispose medications if other options arenot available. Mix your drugs with these household products, seal them in an airtight container andthrow it into the garbage. Call [facility]: [phone] to be sure your drugs can be [...] aware that I should contact my doctor. Patient/Woodworking Shop Hand Signature: Date/Time: Relationship to Patient: Witness Name/Signature: [facility]Time[id number] Discharge summary Date of Service 02/15/23 Discharge [...] hypertension, depression, and hyperlipidemia. Patient presented to [facility] with complaints of fall. Per documentation patient fell down 8-10 steps. she was found confused on new years jena walking from various rooms in the house aimlessly and turning on all the lights. CT head showed right occipital subarachnoid hemorrhage. Patient was then transferred to [facility] for further evaluation. patient was evaluated by [...] and Occupational Therapy recommend patient discharge to [facility] facility.. Discussed with my collaborating physician Dr. [...] day. Follow Up Follow Up with [facility] When In 2 weeks Where: Follow Up with CHICO COLLIER MD When Within 3-7 days Where: [address] [place] [address] [place] [address]- [phone] Follow Up Appointments Transfer of Care OT [...] EST Condition on Discharge Stable Discharge Disposition [facility] Information Provided To Patient Jese Time Spent 32 minutes Digitally Signed by SHEELA PORRAS on 02/15/2023 01:37 PM [id number] Note Date of Service 02/14/23 Chief Complaint Weakness Subjective Patient is a 77 year old female with a past medical history significant for Parkinson's disease, hypertension, depression, and hyperlipidemia. Patient presented to [facility] with complaints of fall. Per documentation patient fell down 8-10 steps. she was found confused on walking from various rooms in the house aimlessly and turning on all the lights. CT head showed right occipital subarachnoid hemorrhage. Patient was then transferred to [facility] for further evaluation. patient was evaluated by [...] did call the patient's daughter (Larisa Cabral [phone]) via phone. Patient and family verbalizes understanding and are agreeable plan of care. Patient plans to be discharged to [facility] once medically optimized. Discussed with my collaborating physician Dr. Stew Alex This dictation was performed using voice recognition software and may include grammatical and/or spelling errors Orders: Consult to Physician Time Spent 26 minutes Digitally Signed by SHEELA PORRAS on 02/14/2023 01:18 PM [id number] Note Date of Service 02/14/23 Chief Complaint Weakness Subjective Patient is a 77 year old female with a past medical history significant for Parkinson's disease, hypertension, depression, and hyperlipidemia. Patient presented to [facility] with complaints of fall. Per documentation patient fell down 8-10 steps. she was found confused on walking from various rooms in the house aimlessly and turning on all the lights. CT head showed right occipital subarachnoid hemorrhage. Patient was then transferred to [facility] for further evaluation. patient was evaluated by [...] did call the patient's daughter (Larisa Cabral [phone]) via phone. Patient and family verbalizes understanding and are agreeable plan of care. Patient plans to be discharged to [facility] once medically optimized. Discussed with my collaborating physician Dr. Stew Alex This dictation was performed using voice recognition software and may include grammatical and/or spelling errors Orders: Consult to Physician Time Spent 26 minutes Digitally Signed by SHEELA PORRAS on 02/14/2023 01:18 PM [id number] Neurology Consult note Date of Service 02/13/23 Reason for Consultation Parkinson's/orthostatic hypotension Referring Physician Dr. Yates History of Present Illness Patient is a 77-year-old female with PMH of Parkinson's per daughter diagnosed 6 years ago by neurologist, and, depression, HLD, recurrent falls at home. Presented to [facility] on 02/08/2023 for evaluation after a presumed fall 4 days prior. Reported patient was found at the bottom of her stairs ather house on 02/06/2023. Family had reported on the patient was acting more confused, fell [...] becoming more frequent averaging 1/month however around [facility] time she had 4 falls in 1 week. That she has noticed more gradual confusion the past few months, that the patient will ask things over and over because she forgot, will getup in the middle of the night as if she is owning. 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 However was much worse after she hit [...] commands, Mental Status: Orientation: Oriented to person, [facility] Language: Normal fluency, normal simple comprehension [...] Strength: 5/5 Tone: Increased in all Coordination: Vtcwmz-jxfx-kftdwo movements: No ataxia present Reflexes: R: L [...] PLAN: -CT brain without contrast completed at [facility] on 02/08/2023 demonstrates small subarachnoid hemorrhage in [...] severe orthostasis may imply she has a "parkinson-plus" syndrome rather than idiopathic Parkinson disease, and this can be further considered in OP follow-up. I will be off service tomorrow; if the above plan does not lead to improvement, please reach back out to the oncoming team. Alee Méndez MD [facility] Problem List/Past Medical History Ongoing No [...] ALEE MÉNDEZ MD on 02/13/2023 03:46 PM [id number] Note Date of Service 02/13/23 Chief Complaint Dizziness/Weakness Subjective Patient is a 77 year old female with a past medical history significant for Parkinson's disease, hypertension, depression, and hyperlipidemia. Patient presented to [facility] with complaints of fall. Per documentation patient fell down 8-10 steps. she was found confused on walking from various rooms in the house aimlessly and turning on all the lights. CT head showed right occipital subarachnoid hemorrhage. Patient was then transferred to [facility] for further evaluation. patient was evaluated by [...] daughter at bedside and daughter (Larisa Cabral [phone]) via phone. Patient and family verbalizes understanding and are agreeable plan of care. Discussed with my collaborating physician Dr. adelita yates This dictation was performed using voice recognition software and may include grammatical and/or spelling errors Orders: Consult to Physician Time Spent 41 minutes Digitally Signed by SHEELA PORRAS on 02/13/2023 01:23 PM Digitally Signed by SHEELA PORRAS on 02/13/2023 01:25 PM [id number] Note Date of Service 02/12/23 Chief Complaint Weakness Subjective Patient is a 77 year old female with a past medical history significant for Parkinson's disease, hypertension, depression, and hyperlipidemia. Patient presented to [facility] with complaints of fall. Per documentation patient fell down 8-10 steps. she was found confused on walking from various rooms in the house aimlessly and turning on all the lights. CT head showed right occipital subarachnoid hemorrhage. Patient was then transferred to [facility] for further evaluation. patient was evaluated by [...] H 157(FEB 12 04:) DBP 81(FEB 12 12:07) C 36(FEB 12 [...] grammatical and/or spelling errors Collaborative Care Team [facility] Shared/split visit with Sheela CABRAL. [...] Added fludrocortisone. Increased amlodipine. adelita yates md [facility] Digitally Signed by SHEELA PORRAS on 02/12/2023 02:14 PM Digitally Signed by ADELITA YATES MD [facility] on 02/12/2023 04:17 PM [id number] Neurological surgery Consult note Date of Service 02/09/2023 This is a split/shared consultation with Dr. Bocanegra Reason for Consultation SAH Referring Physician Dr. Rowland History of Present Illness This is a 77-year-old female with a PMH significant for hypertension, hypercholesterolemia, Parkinson's disease with multiple falls who presented to [facility] on 02/08/2023 for evaluation after a [...] For that reason, she was transferred to [facility] ED for further evaluation. History taken from [...] interpretation. [facility] Assessment/Plan Small right occipital SAH s/p fall on 02/06/2023 CT brain without contrast completed at [facility] on 02/08/2023 demonstrates small subarachnoid hemorrhage in [...] by JEEVAN MARTINEZ on 02/09/2023 09:39 AM [id number] Neurological surgery Consult note Date of Service 02/09/2023 This is a split/shared consultation with Dr. Bocanegra Reason for Consultation SAH Referring Physician Dr. Rowland History of Present Illness This is a 77-year-old female with a PMH significant for hypertension, hypercholesterolemia, Parkinson's disease with multiple falls who presented to [facility] on 02/08/2023 for evaluation after a [...] For that reason, she was transferred to [facility] ED for further evaluation. History taken from [...] and interpretation. CT head imaging reviewed from [facility]. Assessment/Plan Small right occipital SAH s/p fall on 02/06/2023 CT brain without contrast completed at [facility] on 02/08/2023 demonstrates small subarachnoid hemorrhage in [...] by JEEVAN MARTINEZ on 02/09/2023 09:39 AM [facility] [id number] History and physical note Date of Service [...] extremity weakness which she and family state "just happened". She typically has to lift her right [...] REILLY ROWLAND MD on 02/08/2023 08:50 PM [facility] [id number] Note ORIGINAL EXAMINATION: CT CHEST WITH CONTRAST02/08/2023 [...] Date: 02/08/2023 10:26:14 PM [facility]ing [facility] History and physical note Date of Service [...] extremity weakness which she and family state "just happened". She typically has to lift her right [...] REILLY ROWLAND MD on 02/08/2023 08:50 PM [id number] Note ORIGINAL EXAMINATION: CT OF THE CERVICAL [...] Date: 02/08/2023 6:55:16 PM Ordering Provider: LIZ SYKind[facility] [id number] Note ORIGINAL EXAMINATION: ONE XRAY VIEW OF [...] Date: 02/08/2023 6:53:03 PM Ordering Provider: LIZ [facility]01-02-2024 Evaluation + Plan noteExtracted from: Title:History [...] not yet verified. They will need reconciled [facility] Discharge summary Author Isis Mae [facility] Note Date/Time September 23, 2024 8: 54am [facility] Medical Records Department [address] [place] [address] Emergency Department Summary 09/23/24 MR#: [id number] Acct: [id number] Name: ROSARIO MCNALLY Rep #:[id number] : 1945 78 From: Isis Mae MD PCP: Dr. Rahul Shetty, DO Status:REG ER Location: ED HPI History of Present Illness Chief Complaint: Stroke Alert Narrative Narrative: Patient is a 78-year-old female presenting to the emergency department for a stroke alert that was called by EMS. Last known well 7:20 AM this morning. Patient is on no oral anticoagulation. EMS states that the patient was eating breakfast this morning and developed sudden onset aphasia. On arrival here patient has no complaints. She is soft-spoken. Has no aphasia or dysarthria. Has no focal weakness or numbness. No pain. No chest pain, shortness of breath, abdominal pain, nausea or vomiting. Stroke alert canceled on my evaluation. [facility] Medical History Blindness left eye category 5, normal vision right eye Unsteadiness on feet Difficulty in walking Anemia Lung nodule Depression Wrist fracture, right Orthostatic hypotension Essential hypertension Subarachnoid hemorrhage following injury Hyperlipidemia Parkinson's disease Home Medications ?Medication ?Instructions ?Recorded ?Last Taken ?Type atorvastatin 10 mg tablet 10 mg PO QHS HYPERLIPIDEMIA 03/28/23 Unknown History carbidopa 25 mg-levodopa 100 mg 1 tab PO 4XD NEUROCOGN ITIVE 03/28/23 Unknown History tablet DISORDER escitalopram oxalate 10 mg tablet 10 mg PO DAILY MAJOR DEPRESSIVE 03/28/23 Unknown History DISORD ferrous sulfate 325 mg (65 mg 325 mg PO DAILY ANEMIA 0 03/28/23 Unknown History iron) tablet artifi.tears(hypromellose)(PF) 1.7 1 drp ophthalmic (e ye) TID DRYNESS 07/03/24 Unknown History % eye drops with applicator midodrine 5 mg tablet 7.5 mg PO TID HTN 09/03/24 U nknown History acetaminophen 325 mg capsule 650 mg PO Q6H PRN fever o r pain 09/23/24 Unknown History bisacodyl 10 mg rectal suppository 10 mg GA Q12H PRN c onstipation 09/23/24 Unknown History docusate sodium 100 mg capsule 100 mg PO Q12H PRN cons tipation 09/23/24 Unknown History (Col-Rite) lorazepam 0.5 mg tablet 0.5 mg PO .COMPLEX ANXIETY 0 09/23/24 Unknown History magnesium hydroxide 400 mg/5 mL 30 ml PO Q12H PRN cons tipation 09/23/24 Unknown History oral suspension (Dulcolax (magnesium hydroxide)) ondansetron 4 mg disintegrating 4 mg PO Q6H PRN nausea and vomiting 09/23/24 Unknown History tablet polyethylene glycol 3350 17 17 g PO DAILY PRN constipa tion 09/23/24 Unknown History gram/dose oral powder (Miralax) Allergy/AdvReac Type Severity Reaction Status Date / Time amoxicillin (From Trimox) Allergy Hives Verified 09/03/24 15:44 Family History Mother Hypertension Heart disease Diabetes [...] family history of blood clots/blood disorders. ROS ROS ED Constitutional Constitutional ED: Denies chills or fever(s) Eyes Eyes: Denies change in vision or diplopia ENT ENT ED: Denies sore throat Cardiovascular Cardiovascular: Denies chest pain, palpitations or racing heartbeat Respiratory/Chest Respiratory/Chest: Denies cough, dyspnea or dyspnea on exertion Gastrointestinal Gastrointestinal: Denies abdominal pain, diarrhea, nausea or vomiting Genitourinary Genitourinary ED: Denies dysuria or hematuria Musculoskeletal Musculoskeletal: Denies back pain or neck pain Neurologic Neurologic: Denies headache(s), paresthesias or weakness EXAM Physical Exam Narrative Exam Narrative: Vital signs: Reviewed General: Alert and oriented x3. No acute distress. Chronically ill appearing. HEENT: Head is normocephalic and atraumatic, sinuses nontender, pupils equal round and reactive. Nares are patent. Oropharynx and throat exams normal. Neck: Supple without lymphadenopathy nontender Cardiovascular: Regular rate and rhythm, no murmurs. No rubs or gallops. Normal S1 and S2 Respiratory: Clear to auscultation bilaterally. No wheezes, rales, rhonchi Abdominal: Soft and nontender. Normal bowel sounds. No guarding or rebound. Nonsurgical abdomen Extremities: No tenderness. No bruising. Normal range of motion. Normal sensation. Skin: No rash or redness. Neurological: Cranial nerves II through XII are grossly intact. Normal strengthand sensation. Normal cerebellar function The rest of the physical exam is unremarkable Const Vital Signs: 09/23/24 08:13 Temperature 98.5 F Temperature Source Oral Pulse Rate 79 Respiratory Rate 18 Blood Pressure 163/88 H Blood Pressure Mean 113 Pulse Ox 96 Oxygen Delivery Method Room Air MDM MDM MDM Narrative Medical decision making narrative: Patient is a 78-year-old female presenting to the emergency department for stroke alert called by EMS. LKW 0720, reported aphasia. Patient was seen on arrival in triage bay. NIH of 0. Clear speech with no slurring. Stroke alert canceled. [id number] glucose 111. Nursing staff did contact the nursing facility for DNR paperwork given EMS reported that she was DNR comfort care. DNR paperwork was faxed over and it is confirmed that she is DNR comfort care. I did speak to the patients melvina Bailey. I updated her on why her mother was sent here this morning. I informedher that she had no neurologic deficits on exam here. I explained that given she is DNR comfort care I do not think it is necessary to obtain any additional labs or imaging given the patient has no neurologic findings here and has no complaints. Daughter states that she does have a history of Parkinson's and sometimes can have difficulty getting her words out and maybe this is what the nursing facility was seeing. She agrees with EKG and glucose testing and statesshe feels comfortable with no additional testing here. She feels comfortable with the patient going back to her nursing facility without further imaging or admission given her code status and goals of care discussion. I updated the patient on my discussion with her daughter. Patient is agreeable as well. Patient still has no complaints here. NIH still of 0. There is no indication for CT brain imaging at this time. The event could have been parkinsons related vs TIA. EKG shows NSR with no ischemic changes. No dysrhythmia. Patient appropriate for discharge back to her facility. Patient discharged from the Emergency Department. I do not feel that the patient's evaluation reveals any acute reason for admission at this time. I instructed them to either follow-up with their primary care physician or promptly return to the Emergency Departmentfor reevaluation should symptoms worsen or new symptoms develop. I explained what symptoms would indicate the need to return to the emergency department. Shared decision making was used. The patient voiced understanding of the treatment plan and is agreeable with it. Clinical impression Reported expressive aphasia History & Record Review Discussion w/independent historian: EMS personnel, Patient and Family Rhythm Strip Rhythm Strip: Sinus Rhythm Rate: 72 Ectopy: None Discharge Plan Triage Chief Complaint: Stroke Alert ED Provider: Isis Mae Dx/Rx/DC Orders Prescriptions: No Action atorvastatin 10 mg tablet 10 mg PO QHS carbidopa-levodopa 25-100 mg tablet 1 tab PO 4XD escitalopram oxalate 10 mg tablet 10 mg PO DAILY ferrous sulfate 325 mg (65 mg iron) tablet 325 mg PO DAILY midodrine 5 mg tablet 7.5 mg PO TID Rx Instructions: do not give last dose of day after 6PM or within 4 hrs of bedtime artifi.tears(hypromellose)(PF) 1.7 % drops with applicator 1 drp ophthalmic (eye) TID acetaminophen 325 mg capsule 650 mg PO Q6H PRN (Reason: fever or pain) bisacodyl 10 mg suppository 10 mg GA Q12H PRN (Reason: constipation) docusate sodium [Col-Rite] 100 mg capsule 100 mg PO Q12H PRN (Reason: constipation) lorazepam 0.5 mg tablet 0.5 mg PO .COMPLEX Rx Instructions: 0.5 mg orally 30 MIN PRIOR TO TRIGGERING EVENT, MAY TAKE 2ND DOSE 30 MIN AFTER IF NEEDED; magnesium hydroxide [Dulcolax (magnesium hydroxide)] 400 mg/5 mL suspension 30 ml PO Q12H PRN (Reason: constipation) Rx Instructions: IF NO BM IN 3 CONSECUTIVE DAYS ondansetron 4 mg tablet,disintegrating 4 mg PO Q6H PRN (Reason: nausea and vomiting) polyethylene glycol 3350 [Miralax] 17 gram/dose powder 17 g PO DAILY PRN (Reason: constipation) Primary Care Provider: Rahul Shetty Referrals: Rahul Shetty DO [Primary Care Provider] - Print Language: Ukrainian NIHSS NIHSS 1a. Level of Consciousness: 0 - Alert; keenly responsive 1b. LOC Questions: 0 - Answers BOTH questions correctly 1c. LOC Commands: 0 - Performs BOTH tasks correctly 2. Best Gaze: 0 - Normal 3. Visual: 0 - No visual loss 4. Facial Palsy: 0 - Normal symmetrical movements 5a. Left Arm: 0 - No drift; arm holds 90 (or 45) degrees for full 10 seconds 5b. Right Arm: 0 - No drift; arm holds 90 (or 45) degrees for full 10 seconds 6a. Left Le - No drift; leg holds 30-degree position for full 5 seconds 6b. Right Le - No drift; leg holds 30-degree position for full 5 seconds 7. Limb Ataxia: 0 - Absent 8. Sensory: 0 - Normal; no sensory loss 9. Best Language: 0 - No aphasia; normal 10. Dysarthria: 0 - Normal Total: 0 What to do if you have Problems For any increased pain, shortness of breath, bleeding, nausea or vomiting, chestpain, or any unexpected problems, contact your Primary Care Provider. Call [facility] ([phone]) or report to the closest Emergency Room. Call 911 if necessary. 09/23/24 0854 <Electronically signed by Isis Mae MD> Cosigner Signature (if applicable): CC: Dr. Rahul Shetty DO ~ Signed [facility] Work Phone: Evaluation noteNo assessment information available [facility] Work Phone: Hospital course Narrative No data available for this section [facility] Discharge instructions Additional Instructions Ice and [...] return to the emergency department. Tylenol for pain.[facility] Work Phone: Hospital Discharge instructions No data available for this section [facility] Discharge instructionsAdditional Instructions Your evaluation in the Emergency Department did not reveal any acute reason for admission. However, I want to emphasize that you may be early in the course of a disease process or illness even if it is not present. For this reason you should follow-up within 24 hours for reevaluation with either your primary care physician or if necessary back here in the Emergency Department. You should return to the Emergency Department immediately if your symptoms worsen or new symptoms develop.[facility] Work Phone: Progress note Author Barbara Ramirez [facility] Note Date/Time July 03, 2024 11:09 am [facility] [address] [place] [address] OFFICE VISIT Date of Service: 07/03/24 MR#: [id number] Acct: [id number] Name: ROSARIO MCNALLY Rep #: [id number] 1945 Provider: RANDALL Ramirez Age/Sex: 78/F Location: [facility] Status: Signed Intake Vital Signs 06/28/24 14:56 [...] POSITIVE HEMOCULT Chief Complaint: occult positive stools Assistant Chief Of Police Required: No Accompanied by: Caregiver Is patient in pain?: No Allergies amoxicillin (From Trimox) Allergy (Verified 07/03/24 10:13) Hives Medications ?Medication ?Instructions ?Recorded ?Confirmed ?Type acetaminophen 650 mg 650 mg PO Q8H 03/28/2307/03 History tablet,extended release atorvastatin 10 mg tablet 10 mg PO QHS 03/28/23 History bisacodyl 10 mg rectal suppository 10 mg GA DAILY PRN 03/28/23 07/03/24 History (Dulcolax (bisacodyl)) [...] testing if a lesion/cancer were found [place] [phone] ROS Const Constitutional: No fatigue, fever(s) or [...] well nourished Orientation: alert and oriented x3 [facility] Head: normocephalic Ears: hearing grossly normal bilaterally [...] resulting in a large left arm laceration [id number] sutures. Her hemoglobin initially dropped to 9.0 [...] I recommend repeating in one month. Note: [employer] speech recognition athletic equipment manager software was used to create portions of this document. Sound-alike and misspelled words, as well as other athletic equipment manager errors may be contained in the documentation. Coding Level of Care Code Off vis,new,level 4 Diagnoses Anemia D64.9 Occult blood positive stool R19.5 Clinical Quality Measures Falls Risk Screening/Assistive Devices Have you fallen in the past year?: Yes Smoking Screening Smoking Status: Never smoker 07/03/24 2356 <Electronically signed by Barbara PEREIRA> Date _ Barbara PEREIRA Cosigner Signature: Date (if applicable) CC: ~ [facility] Work Phone: Progress note No data available for this section [facility] Reason for referral (narrative)No reason for referral information [facility] Work Phone: Summary Purpose Family History [...] Do you have a Healthcare Power of Asphalt Patcher? Yes June 25, 2024 9:00pm Advance Directive Response Recorded Date/ Time Do you have a Healthcare Power of Asphalt Patcher? Yes September 23, 2024 8:15am Do you have a Healthcare Power of Asphalt Patcher? Yes June 25, 2024 9:00pm Advance Directive Response Recorded Date/ Time Do you have a Healthcare Power of Asphalt Patcher? Yes September 23, 2024 8:15am Chief Complaint and Reason for Visit Chief Complaint Personal history of other diseases of the circulat Chief Complaint Admit Date LACERATION June 25, 2024 8:54p m Chief Complaint Admit Date LACERATION June 25, 2024 8:54p m ED FOLLOW UP June 28, 2024 2:25p m RETIREMENT LAB WORK July 03, 2024 4:0 0am ANEMIA POSITIVE HEMOCULT July 03, 2024 9:56am Reason for Visit Admit Date Laceration of forearm, left June 28 2:25pm Anemia July 03, 2024 9:56a m Occult blood positive stool July 03 9:56am Chief Complaint Admit Date LACERATION June 25, 2024 8:54p m ED FOLLOW UP June 28, 2024 2:25p m RETIREMENT LAB WORK July 03, 2024 4:0 0am ANEMIA POSITIVE HEMOCULT July 03, 2024 9:56am 1 W FU July 06, 2024 2:14p m Chief Complaint Admit Date LACERATION June 25, 2024 8:54p m ED FOLLOW UP June 28, 2024 2:25p m RETIREMENT LAB WORK July 03, 2024 4:0 0am [...] Date LACERATION June 25, 2024 8:54p m RETIREMENT LAB WORK June 27, 2024 5:0 0am RETIREMENT LAB WORK June 28, 2024 5:0 0am ED FOLLOW UP June 28, 2024 2:25p m RETIREMENT LAB WORK July 03, 2024 4:0 0am [...] July 06 2:14pm Laceration of forearm, left [place] 6th, 20 25 1:56pm Chief Complaint Admit Date LACERATION June 25, 2024 8:54p m RETIREMENT LAB WORK June 27, 2024 5:0 0am RETIREMENT LAB WORK June 28, 2024 5:0 0am ED FOLLOW UP June 28, 2024 2:25p m RETIREMENT LAB WORK July 03, 2024 4:0 0am ANEMIA POSITIVE HEMOCULT July 03, 2024 9:56am 1 W FU July 06, 2024 2:14p m 1 W FU July 13, 2024 1:56p m 2 W FU July 27, 2024 9:16 am Chief Complaint Admit Date LACERATION June 25, 2024 8:54p m RETIREMENT LAB WORK June 27, 2024 5:0 0am RETIREMENT LAB WORK June 28, 2024 5:0 0am ED FOLLOW UP June 28, 2024 2:25p m RETIREMENT LAB WORK June 29, 2024 5:0 0am RETIREMENT LAB WORK July 03, 2024 4:0 0am ANEMIA POSITIVE HEMOCULT July 03, 2024 9:56am 1 W FU July 06, 2024 2:14p m 1 W FU July 13, 2024 1:56p m LABWORK July 27, 2024 5:00 am 2 W July 27, 2024 9:16 am RETIREMENT LAB WORK July 30, 2024 9: 30am RETIREMENT LAB WORK July 31, 2024 5: 00am RETIREMENT LAB WORK August 02, 2024 8: 00am DIZZINESS/HTN/FALLS August 02, 2024 2:02 pm RETIREMENT LAB WORK August 15, 2024 9:0 0am [...] forearm, left July 27, 2 025 9:16am Essential hypertension September 03, 2024 3 :30pm Orthostatic hypotension September 03, 2024 3:30pm Chief Complaint Admit Date LACERATION June 25, 2024 8:54p m RETIREMENT LAB WORK June 27, 2024 5:0 0am RETIREMENT LAB WORK June 28, 2024 5:0 0am ED FOLLOW UP June 28, 2024 2:25p m RETIREMENT LAB WORK June 29, 2024 5:0 0am RETIREMENT LAB WORK July 03, 2024 4:0 0am ANEMIA POSITIVE HEMOCULT July 03, 2024 9:56am 1 W FU July 06, 2024 2:14p m 1 W FU July 13, 2024 1:56p m LABWORK July 27, 2024 5:00 am 2 W FU July 27, 2024 9:16 am RETIREMENT LAB WORK July 30, 2024 9: 30am RETIREMENT LAB WORK July 31, 2024 5: 00am RETIREMENT LAB WORK August 02, 2024 8: 00am DIZZINESS/HTN/FALLS August 02, 2024 2:02 pm RETIREMENT LAB WORK August 15, 2024 9:0 0am [...] Date LACERATION June 25, 2024 8:54p m RETIREMENT LAB WORK June 27, 2024 5:0 0am RETIREMENT LAB WORK June 28, 2024 5:0 0am ED FOLLOW UP June 28, 2024 2:25p m RETIREMENT LAB WORK June 29, 2024 5:0 0am RETIREMENT LAB WORK July 03, 2024 4:0 0am ANEMIA POSITIVE HEMOCULT July 03, 2024 9:56am 1 W FU July 06, 2024 2:14p m 1 W July 13, 2024 1:56p m LABWORK July 27, 2024 5:00 am 2 W FU July 27, 2024 9:16 am RETIREMENT LAB WORK July 30, 2024 9: 30am RETIREMENT LAB WORK July 31, 2024 5: 00am RETIREMENT LAB WORK August 02, 2024 8: 00am DIZZINESS/HTN/FALLS August 02, 2024 2:02 pm RETIREMENT LAB WORK August 15, 2024 9:0 0am 1 Y FU September 03, 2024 3:30 pm elevated blood-pressure reading September 132024 9:48am stroke September 23, 2024 8: 07am Chief Complaint Admit Date 1 W FU July 13, 2024 1:56p m LABWORK July 27, 2024 5:00 am 2 W FU July 27, 2024 9:16 am RETIREMENT LAB WORK July 30, 2024 9: 30am RETIREMENT LAB WORK July 31, 2024 5: 00am RETIREMENT LAB WORK August 02, 2024 8: 00am DIZZINESS/HTN/FALLS August 02, 2024 2:02 pm RETIREMENT LAB WORK August 15, 2024 9:0 0am 1 Y FU September 03, 2024 3:30 pm elevated blood-pressure reading September 132024 9:48am elevated blood-pressure reading September 132024 9:54am stroke September 23, 2024 8: 07am Reason for Visit Admit Date Laceration of forearm, left July 13 1:56pm Dizziness July 27, 2024 9:16 am Falls July 27, 2024 9:16 am Laceration of forearm, left July 27, 025 9:16am Dizziness September 03, 2024 3:30 pm Essential hypertension September 03, 2024 3 :30pm Orthostatic hypotension September 03, 2024 3:30pm Additional Source Comments INFORMATION SOURCE (unrecogn ized section and content) DATE CREATED AUTHOR 12/30/2022 [facility] DATE CREATED AUTHOR AUTHOR'S ORGANIZ ATION 02/22/2023 [facility] DATE CREATED AUTHOR AUTHOR'S ORGANIZ ATION 03/05/2023 [facility] ([place]) DATE CREATED AUTHOR AUTHOR'S ORGANIZ ATION 08/21/2024 [facility] DATE CREATED AUTHOR AUTHOR'S ORGANIZ ATION 2024 [facility] Patient Care team informatio n (unrecognized [...] July 03, 2024 End: July 03, 2024 RANDLAL Parker Attending Provider Active Start: July 03, [...] Care Provider Active Start: August 02, 2024 [facility] Attending Provider Active Start: August 02, [...] End: September 03, 2024 Jennifer Argueta NP, CYLINDER INSPECTOR-C Attending Provider Active Start: September 03, 2024 End: September 03, 2024 Team Status: Inactive Member Role/Relationship Status Dates Dr. Rahul Shetty DO Primary Care Provider Active Start: September 13, 2024 End: September 13, 2024 Jennifer Argueta CYLINDER INSPECTOR, CYLINDER INSPECTOR-C Attending Provider Active Start: September 13, 2024 End: September 13, 2024 Jennifer Argueta CYLINDER INSPECTOR, CYLINDER INSPECTOR-C Referring Provider Active Start: September 13, 2024 End: September 13, 2024 Team Status: Inactive Member Role/Relationship Status Dates Dr. Rahul Shetty DO Primary Care Provider Active Start: September 23, 2024 End: September 23, 2024 Dr. Isis Mae MD Emergency Provider Active S tart: September 23, 2024 End: September 23, 2024 Team Status: Active Member Role/Relationship Status Dates Dr. Rahul Shetty DO Primary care physician Active Team Status: Inactive Member Role/Relationship Status Dates Dr. Yahaira Winn MD Primary care physician Active Start: July 13, 2024 End: July 13, 2024 Dr. Yahaira Winn MD Referring Provider Active Start: July 13, 2024 End: July 13, 2024 Dr. Jose Matthews MD Attending physician Active Start: July 13, 2024 End: July 13, 2024 Team Status: Active Member Role/Relationship Status Dates Dr. Yahaira Winn MD Primary care physician Active Start: July 27, 2024 Dr. Rahul SAAVEDRA MD Attending physician Active Start: July 27, 2024 Team Status: Inactive Member Role/Relationship Status Dates Dr. Yahaira Winn MD Primary care physician Active Start: July 27, 2024 End: July 27, 2024 Dr. Yahaira Winn MD Referring Provider Active Start: July 27, 2024 End: July 27, 2024 Dr. Jose Matthews MD Attending physician Active Start: July 27, 2024 End: July 27, 2024 Team Status: Active Member Role/Relationship Status Dates Dr. Yahaira Winn MD Primary care physician Active Start: July 30, 2024 Dr. Rahul SAAVEDRA MD Attending physician Active Start: July 30, 2024 Dr. Rahul SAAVEDRA MD Referring Provider Active Start: July 30, 2024 Team Status: Active Member Role/Relationship Status Dates Dr. Yahaira Winn MD Primary care physician Active Start: July 31, 2024 Dr. Rahul SAAVEDRA MD Attending physician Active Start: July 31, 2024 Team Status: Inactive Member Role/Relationship Status Dates Dr. Yahaira Winn MD Primary care physician Active Start: August 02, 2024 End: August 02, 2024 [facility] Attending physician Active Start : August 02, 2024 End: August 02, 2024 Dr. Checo Reid MD Attending physician Active Start: August 02, 2024 Team Status: Active Member Role/Relationship Status Dates Dr. Rahul Shetty DO Primary care physician Active Start: August 02, 2024 Dr. Rahul Shetty DO Attending physician Active Start: August 02, 2024 Dr. Rahul Shetty DO Referring Provider Active Start: August 02, 2024 Team Status: Active Member Role/Relationship Status Dates Dr. Rahul Shetty DO Primary care physician Active Start: August 15, 2024 Dr. Rahul SAAVEDRA MD Attending physician Active Start: August 15, 2024 Team Status: Inactive Member Role/Relationship Status Dates Dr. Rahul Shetty DO Primary care physician Active Start: September 03, 2024 End: September 03, 2024 Dr. Rahul Shetty DO Referring Provider Active Start: September 03, 2024 End: September 03, 2024 Jennifer Argueta CYLINDER INSPECTOR, CYLINDER INSPECTOR-C Attending physician Active Start: September 03, 2024 End: September 03, 2024 Team Status: Inactive Member Role/Relationship Status Dates Dr. Rahul Shetty DO Primary care physician Active Start: September 13, 2024 End: September 13, 2024 Jennifer Agrueta CYLINDER INSPECTOR, CYLINDER INSPECTOR-C Attending physician Active Start: September 13, 2024 End: September 13, 2024 Jennifer Argueta CYLINDER INSPECTOR, CYLINDER INSPECTOR-C Referring Provider Active Start: September 13, 2024 End: September 13, 2024 Team Status: Active Member Role/Relationship Status Dates Dr. Rahul Shetty DO Primary care physician Active Start: September 13, 2024 Dr. Checo Reid MD Attending physician Active Start: September 13, 2024 Jennifer Argueta CYLINDER INSPECTOR, CYLINDER INSPECTOR-C Referring Provider Active Start: September 13, 2024 Team Status: Inactive Member Role/Relationship Status Dates Dr. Rahul Shetty DO Primary care physician Active Start: September 23, 2024 End: September 23, 2024 Dr. Isis Mae MD Attending physician Active Start: September 23, 2024 End: September 23, 2024 Dr. Isis Mae MD Emergency Department Physician Ac tive Start: September 23, 2024 End: September 23, 2024 Goals (unrecognized section and content) Goals [...] BE BASED ON THE PRIMARY CLINICAL RECORDS. [facility]. provides no warranty or guarantee of the accuracy or completeness of information in this document.
[2025-01-02 08:36] LABS: Hematocrit 29.6 % (37-47); Hemoglobin 9.4 g/dL (12.0-15.0); Mean Corp Hgb Conc 31.8 g/dL (32-36); Mean Corpuscular Volume 93.1 fL (81-99); Mean Platelet Vol. 10.0 fl (6.2-12.0); Platelet Count 297 K/mm3 (150-450); RBC Distribution Width CV 13.9 % (11.6-14.6); RBC Distribution Width SD 47.8 fl (35.1-43.9); Red Blood Count 3.18 M/mm3 (4.2-5.4); White Blood Count 7.3 K/mm3 (4.4-11.0)
[2025-01-02 08:53] LABS: Anion Gap 9 (5-15); BUN 20 mg/dL (4-19); BUN/Creat Ratio 26.5 RATIO (10-20); Calcium,Total 9.4 mg/dL (7.6-11.0); Carbon Dioxide 27.3 mmol/L (21.0-32.0); Chloride 103 mmol/L (98-108); Glucose 91 mg/dL (70-99); Potassium 3.9 mmol/L (3.3-5.1)
== END ==
PROVIDERS: PCP Family Medicine
DX: I10 Essential (primary) hypertension (principal); E78.5 Hyperlipidemia, unspecified; E03.9 Hypothyroidism, unspecified; Z91.81 History of falling
CPT/HCPCS: 36415; 80048; 85027

== ENCOUNTER 2025-01-17 16:27 | Emergency (ER) | payer MEDICARE, OTHER, SELFPAY ==
[2025-01-17 16:35] VITALS: BP 151/82; PULSE 82; RESP 12; TEMP 37.1; O2SAT 100; BMI 21.5
--- NOTE | 2025-01-17 16:50 | RAD_ITS ---
PROCEDURE: ELBOW MIN 3 VIEWS 01/17/2025 REASON FOR EXAM: FALL, HIT ELBOW TECHNIQUE: Procedure Code: RADCHANNING Modality: DX Procedure: ELBOW MIN 3 VIEWS Laterality: Left COMPARISON: None. FINDINGS: No acute fracture or dislocation. Alignment is anatomic. Preserved joint spaces. No appreciable joint effusion. Soft tissue swelling and laceration injury along the dorsal aspect of the elbow with scattered subcutaneous emphysema. No radiopaque foreign body. RAD/Elbow min 3 Views IMPRESSION: No acute fracture or dislocation. Soft tissue swelling at the dorsal aspect of the elbow with laceration injury and scattered subcutaneous emphysema. No radiopaque foreign body. Reading Location: [id number]
[2025-01-17] MEDS: Lidocaine 2% /Epi 1:100 (20ml) 20 ML VIAL 10 ML INFILT (17:07)
--- NOTE | 2025-01-17 18:54 | CM.ED ---
Social work Reason for referral: resources Referral source: Dr Carmelita Mae approached WILLIAM with request to talk with patient and patient's daughter, Larisa, regarding resources. SW entered patient's room, introducing and self and role at [facility]. Patient was observed sitting up in bed and Larisa stated being in need of resources to help patient with all of the falls patient has been having. Larisa stated wondering if hospice would be a help, as well as an increase in therapy while patient is at [facility]. SW educated patient and Larisa on hospice and palliative care; Larisa expressed understanding. SW provided resources of palliative care options, outpatient therapy resources, and explanations of hospice vs palliative care. Larisa stated wanting to share these resources with patient's other daughter should they be needed in the future. Larisa denied further needs at this time. Sarah Rodriguez, CYTOGENETICS TECHNOLOGIST, HEDIS ANALYST
[2025-01-17 19:20] VITALS: BP 126/78; PULSE 78; RESP 18; TEMP 36.6; O2SAT 97
--- NOTE | 2025-01-18 01:14 | ED.VIS.FALL ---
HPI HPI - Fall History of Present Illness Chief Complaint: Fall Narrative Narrative: Patient is a 79-year-old female presenting to the emergency department after mechanical fall at her facility. Patient has a past medical history of Parkinson's, hypertension, hyperlipidemia, anemia and frequent falls. She resides in an assisted living facility. Patient states that she slipped on the floor and tripped over her feet causing her to fall onto her left elbow. She denies hitting her head or any loss of consciousness. Denies any neck or back pain. Denies any other injuries. She is not on any oral anticoagulation. Last tetanus vaccine was within the past year. [facility] Medical History Blindness left eye category 5, normal vision right eye Unsteadiness on feet Difficulty in walking Anemia Lung nodule Depression Wrist fracture, right Orthostatic hypotension Essential hypertension Subarachnoid hemorrhage following injury Hyperlipidemia Parkinson's disease Home Medications ?Medication ?Instructions ?Recorded ?Last Taken ?Type atorvastatin 10 mg tablet 10 mg PO QHS HYPERLIPIDEMIA 03/28/23 Unknown History carbidopa 25 mg-levodopa 100 mg 1 tab PO 4XD NEUROCOGNITIVE 03/28/23 Unknown History tablet DISORDER escitalopram oxalate 10 mg tablet 10 mg PO DAILY MAJOR DEPRESSIVE 03/28/23 Unknown History DISORD ferrous sulfate 325 mg (65 mg 325 mg PO DAILY ANEMIA 03/28/23 Unknown History iron) tablet artifi.tears(hypromellose)(PF) 1.7 1 drp ophthalmic (eye) TID DRYNESS 07/03/24 Unknown History % eye drops with applicator midodrine 5 mg tablet 7.5 mg PO TID HTN 09/03/24 Unknown History acetaminophen 325 mg capsule 650 mg PO Q6H PRN fever or pain 09/23/24 Unknown History bisacodyl 10 mg rectal suppository 10 mg AR Q12H PRN constipation 09/23/24 Unknown History docusate sodium 100 mg capsule 100 mg PO Q12H PRN constipation 09/23/24 Unknown History (Col-Rite) lorazepam 0.5 mg tablet 0.5 mg PO .COMPLEX ANXIETY 09/23/24 Unknown History magnesium hydroxide 400 mg/5 mL 30 ml PO Q12H PRN constipation 09/23/24 Unknown History oral suspension (Dulcolax (magnesium hydroxide)) ondansetron 4 mg disintegrating 4 mg PO Q6H PRN nausea and vomiting 09/23/24 Unknown History tablet polyethylene glycol 3350 17 17 g PO DAILY PRN constipation 09/23/24 Unknown History gram/dose oral powder (Miralax) Allergy/AdvReac Type Severity Reaction Status Date / Time amoxicillin (From Trimox) Allergy Hives Verified 01/17/25 16:38 Family History Mother Hypertension Heart disease Diabetes Father Hypertension Emphysema lung Surgical History Hx laparoscopic cholecystectomy History of hysterectomy Social History Smoking Status: Never smoker alcohol intake: never substance use type: does not use caffeine: Yes Type: coffee Number of servings: 2 additional social history: pt denies vaping, denies edibles, denies marijuana use, denies aspirin and denies ibuprofen use, pt denies family history of blood clots/blood disorders. ROS ROS ED ROS Narrative see HPI EXAM Physical Exam Narrative Exam Narrative: Vital signs: Reviewed General: Alert and oriented x 3. No acute distress. Chronically ill-appearing, nontoxic. HEENT: Head is normocephalic and atraumatic. No cephalhematoma, lacerations or abrasions to the head or face. Sinuses nontender, pupils equal round and reactive. Extraocular movements intact. Nares are patent. No septal hematoma. Oropharynx and throat exams normal. No oropharyngeal trauma. Neck: Supple without lymphadenopathy nontender. No midline cervical spinal tenderness to palpation. No step-offs or deformities. Cardiovascular: Regular rate and rhythm, no murmurs. No rubs or gallops. Normal S1 and S2 Respiratory: Clear to auscultation bilaterally. No wheezes, rales, rhonchi Chest: Chest wall is atraumatic and nontender to palpation with no crepitus, erythema or ecchymosis. Abdominal: Soft and nontender. Normal bowel sounds. No guarding or rebound. Nonsurgical abdomen Extremities: No midline thoracic or lumbar spinal tenderness to palpation. No step-offs or deformities. Hips are stable and nontender to palpation. Left elbow is mildly tender to palpation with a 2 cm v shaped laceration to the proximal dorsal forearm. No FB visualized on wound exploration. There is a skin tear more distal to this that has no gaping wound that is not amenable to suture repair. Left clavicle, shoulder, forearm, wrist and hand are atraumatic and nontender to palpation. Radial pulse intact bilaterally. Normal range of motion. Normal sensation. Skin: No rash or redness. Neurological: Cranial nerves II through XII are grossly intact. Normal strength and sensation. Normal cerebellar function The rest of the physical exam is unremarkable Const Vital Signs: 01/17/25 16:35 01/17/25 19:20 01/17/25 20:59 Temperature 98.8 F 98 F Temperature Source Oral Pulse Rate 82 78 Respiratory Rate 12 18 Respiratory Effort Normal Respiratory Depth Normal Respiratory Pattern Normal Blood Pressure 151/82 H 126/78 H Blood Pressure Mean 105 94 Pulse Ox 100 97 Oxygen Delivery Method Room Air Room Air MDM MDM MDM Narrative Medical decision making narrative: Patient is a 79-year-old female presenting to the emergency department after a mechanical fall with a left elbow laceration. Patient was seen and examined. Vitals are stable. Patient resting in bed comfortably no acute acute distress. Patient had a mechanical fall, I do not think labs or EKG are warranted. Physical exam is unremarkable other than the left elbow swelling and laceration. X-ray imaging ordered. Tetanus is up-to-date from June of this year. X-ray reviewed by myself, no fracture or dislocation noted. Radiology read in agreement. Patient and daughter at bedside were consented for laceration repair. 2% lidocaine with epi was used for anesthetic. Three 4-0 Ethilon simple interrupted sutures were placed in the V-shaped laceration. The skin tear was dressed with gauze. Patient denies hitting her head, use of oral anticoagulation or any loss of consciousness I do not think the patient requires CT imaging of her head or neck. Daughter states she does not walk and is supposed to be in a chair at all times. No ambulation trial needed. Patient discharged from the Emergency Department. I do not feel that the patient's evaluation reveals any acute reason for admission at this time. I instructed them to either follow-up with their primary care physician or promptly return to the Emergency Department for reevaluation should symptoms worsen or new symptoms develop. I explained what symptoms would indicate the need to return to the emergency department. Shared decision making was used. The patient voiced understanding of the treatment plan and is agreeable with it. Clinical impression Mechanical fall Elbow laceration Elbow contusion History & Record Review Discussion w/independent historian: Patient Radiography X-Ray: Read by ED Physician and No Fracture Diagnostic Testing: Clinical Impression(s) from Imaging Studies Elbow X-Ray 01/17/25 16:50 IMPRESSION: No acute fracture or dislocation. Soft tissue swelling at the dorsal aspect of the elbow with laceration injury and scattered subcutaneous emphysema. No radiopaque foreign body. Reading Location: [facility] Discharge Plan Triage Chief Complaint: Fall ED Provider: Isis Mae Dx/Rx/DC Orders Clinical Impression: Fall, Contusion of elbow, Elbow laceration Instructions: ED Laceration Extremity, ED Fall Prevention Prescriptions: No Action atorvastatin 10 mg tablet 10 mg PO QHS carbidopa-levodopa 25-100 mg tablet 1 tab PO 4XD escitalopram oxalate 10 mg tablet 10 mg PO DAILY ferrous sulfate 325 mg (65 mg iron) tablet 325 mg PO DAILY midodrine 5 mg tablet 7.5 mg PO TID Rx Instructions: do not give last dose of day after 6PM or within 4 hrs of bedtime artifi.tears(hypromellose)(PF) 1.7 % drops with applicator 1 drp ophthalmic (eye) TID acetaminophen 325 mg capsule 650 mg PO Q6H PRN (Reason: fever or pain) bisacodyl 10 mg suppository 10 mg AR Q12H PRN (Reason: constipation) docusate sodium [Col-Rite] 100 mg capsule 100 mg PO Q12H PRN (Reason: constipation) lorazepam 0.5 mg tablet 0.5 mg PO .COMPLEX Rx Instructions: 0.5 mg orally 30 MIN PRIOR TO TRIGGERING EVENT, MAY TAKE 2ND DOSE 30 MIN AFTER IF NEEDED; magnesium hydroxide [Dulcolax (magnesium hydroxide)] 400 mg/5 mL suspension 30 ml PO Q12H PRN (Reason: constipation) Rx Instructions: IF NO BM IN 3 CONSECUTIVE DAYS ondansetron 4 mg tablet,disintegrating 4 mg PO Q6H PRN (Reason: nausea and vomiting) polyethylene glycol 3350 [Miralax] 17 gram/dose powder 17 g PO DAILY PRN (Reason: constipation) Primary Care Provider: Yahaira Winn Referrals: Yahaira Winn MD [Primary Care Provider, Family Practice] - As soon as possible Activity Restrictions/Additional Instructions: You need to have the sutures removed in 7 to 10 days. Watch for signs of infection which were discussed including redness, drainage, warmth or swelling. Your evaluation in the Emergency Department did not reveal any acute reason for admission. However, I want to emphasize that you may be early in the course of a disease process or illness even if it is not present. For this reason you should follow-up within 24 hours for reevaluation with either your primary care physician or if necessary back here in the Emergency Department. You should return to the Emergency Department immediately if your symptoms worsen or new symptoms develop. Print Language: Jordanian Disposition Disposition: Home, Self Care Discharge Date/Time: 01/17/25 19:01
== END 2025-01-17 19:01 | disposition home or self-care (01) ==
PROVIDERS: Emergency Provider Student in an Organized Health Care Education/Training Program; PCP Family Medicine; Visit Provider Student in an Organized Health Care Education/Training Program
DX: S51.012A Laceration without foreign body of left elbow, initial encounter (principal); G20.C Parkinsonism, unspecified; S50.02XA Contusion of left elbow, initial encounter; W01.0XXA Fall on same level from slipping, tripping and stumbling without subsequent striking against object, initial encounter
CPT/HCPCS: 12001; 73080; 99284